=== PATIENT | female | born 1950 | race Hispanic/Latino ===

== ENCOUNTER 2019-09-10 15:48 | Emergency (ER) | payer MEDICARE, OTHER ==
[~2019-09-10] VITALS: Ht 154.9 cm; Wt 56.2 kg
--- OUTSIDE RECORDS SUMMARY | 2019-09-10 15:51 | XMS REPORT | Summary of Care ---
Author Author [facility] Unknown Address [facility] Phone Unavailable Care Team Providers Care Comedian Name Role Phone GHADA Aguilar, SOULEYMANE Unavailable Unavailable LETICIA BRICEÑO MD Unavailable Unavailable DEON WISDOM MD Unavailable Unavailable Unavailable Unavailable Functional Status Name Dates Details Functional status health issues are not documented Status: Name Dates Details Cognitive status health issues are not documented Status: Problems Name Dates Details Hepatitis C (070.70, B19.20) Status: Active Bilateral carotid artery disease (447.9, I77.9) Status: Active CAD (coronary artery disease) (414.00, I25.10) Status: Active Chronic renal insufficiency (585.9, N18.9) Status: Active ESRD (end stage renal disease) on dialysis (585.6, N18.6) Status: Active Medications Name Dates Details Baby Aspirin 81 MG CHEW Active Norvasc 10 MG Oral Tablet * Refills: 0 Active Lipitor 40 MG Oral Tablet * Refills: 0 Active Carvedilol 25 MG Oral Tablet * Refills: 0 Active Escitalopram Oxalate 10 MG Oral Tablet * Refills: 0 Active Lasix 40 MG Oral Tablet * Refills: 0 Active NovoLOG FlexPen 100 UNIT/ML SOLN * Refills: 0 Active Reglan 10 MG Oral Tablet * Refills: 0 Active PriLOSEC 20 MG CPDR * Refills: 0 Active predniSONE 10 MG Oral Tablet * Refills: 0 Active Sodium Bicarbonate TABS * Refills: 0 Active Sulfazine 500 MG TABS * Refills: 0 Active Allergies and Adverse Reactions Name Dates Details No Known Allergies (Allergy) Status: Active Past Medical History Name Dates Details History of hypertension (V12.59, Z86.79) Status: Resolved History of stroke (V12.54, Z86.73) Status: Resolved Procedures Procedure Dates Details History of Dialysis tunneled catheter placement Completed History of Cholecystectomy Completed History of CABG Completed Immunization Name Dates Details Immunizations not documented Social History Name Dates Details - Status: Name Dates Details Never smoker Vital Signs Date Test Result Details No Known Vitals to report Results Date Description Value Details Results not documented Plan of Care Name Dates Details Planned Observations Planned Goals not documented Planned Encounters Appointment; SOULEYMANE URRUTIA M.D. On: 19-Dec-2018 9:00 Interventions Provided Instructions* Patient Specific Education Given; Done: 19 Dec 2018 Plan* I evaluated Ms. Schreiber today for ESRD and complication of her AVF. Instructions Name Dates Details Instructions not documented Encounters Appointment; KRYSTIN OWENS M.D. Encounter Diagnosis: Problem not documented On: 25-Feb-2018 9:30 [facility] Encounter Diagnosis: Problem not documented On: 27-Feb-2018 9:00 Appointment; KRYSTIN OWENS M.D. Encounter Diagnosis: Problem not documented On: 15-Apr-2018 10:45 Appointment; SOULEYMANE URRUTIA M.D. Encounter Diagnosis: Problem not documented On: 19-Dec-2018 9:00
--- OUTSIDE RECORDS SUMMARY | 2019-09-10 15:51 | XMS REPORT ---
Author 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 Allergies, Adverse Reactions, Alerts This patient has no known allergies or adverse reactions. Medications This patient has no known medications. Results Test Description Test Time Test Comments Text Results Atomic Results Result Comments XR Chest 1 View Frontal 2019-02-27 11:07:59 Patient: TED SCHREIBER Date/Time02/27/2019 10:58 CDTReason for ExamCoughReportXR Chest 1 View FrontalCLINICAL INFORMATION: CoughCOMPARISONS: None available.FINDINGS:There is slight elevation of the left hemidiaphragm. The left lateral costophrenic angle is blunted. This could be secondary to pleural thickening or trace effusion. No airspace consolidation is seen. The cardiac silhouette is mildly enlarged. Coronary artery stents are noted. Median sternotomy wires and HeRO dialysis graft are noted.IMPRESSION:Mild elevation of the left hemidiaphragm with left pleural thickening versus trace effusion.Location: R16 Final Dictated by: MD Her Adam FDictated DT/TM: 02/27/2019 11:05 amSigned by: MD Her Adam FSigned (Electronic Signature): 02/27/2019 11:07 am URINE PROTEIN ELECTROPHORESIS, RANDOM 2017-07-09 15:25:00 PROTEIN, URINE (BEAKER) (test hnta=5849) 35 mg/dL 0-14 ALBUMIN URINE ELP (BEAKER) (test ryhm=2404) 63.5 % GAMMA GLOBULIN URINE (BEAKER) (test ckpm=7291) 36.5 % UPEP, ID-438 (BEAKER) (test ptis=9826) Mild proteinuria. No bence guidry protein detected. LACN-GPKGGVLHNIE-005 (BEAKER) (test ovgk=2243) Garry Mixon M.D.(electronic signature) PROTEIN ELECTROPHORESIS, [id number] 11:00:00* Test Item Value Reference Range Comments ALBUMIN FRACTION (BEAKER) (test hxrn=167) 3.6 g/dL 3.5-5.5 ALPHA 1 FRACTION (BEAKER) (test hwtu=905) 0.2 g/dL 0.2-0.4 ALPHA 2 FRACTION (BEAKER) (test nwqj=268) 0.9 g/dL 0.5-0.9 BETA FRACTION (BEAKER) (test zdsx=762) 1.0 g/dL 0.6-1.1 GAMMA GLOBULIN FRACTION (BEAKER) (test kwlt=040) 2.1 g/dL 0.7-1.7 INTERPRETATION-119 (BEAKER) (test rypc=3577) Polyclonal increase in gamma globulins. [id number]-118 (BEAKER) (test ydpi=5573) Garry Mixon M.D.(electronic signature) PROTEIN TOTAL SERUM, SPEP (BEAKER) (test olrf=6871) 7.8 gm/dL 6.0-8.3 URIC [id number] 13:04:00* Test Item Value Reference Range Comments URIC ACID (BEAKER) (test lcoa=614) 7.5 mg/dL 2.5-8.0 PROTEIN, RANDOM [id number] 12:33:00* Test Item Value Reference Range Comments PROTEIN, URINE (BEAKER) (test zkjd=0439) 35 mg/dL 0-14 BASIC METABOLIC [id number] 12:30:00* Test Item Value Reference Range Comments SODIUM (BEAKER) (test ltkc=594) 139 meq/L 135-148 POTASSIUM (BEAKER) (test wmhl=854) 5.2 meq/L 3.5-5.5 CHLORIDE (BEAKER) (test xojk=230) 111 meq/L 98-106 CO2 (BEAKER) (test hhrr=820) 18 meq/L 20-31 BLOOD UREA NITROGEN (BEAKER) (test zleg=482) 59 mg/dL 10-26 CREATININE (BEAKER) (test uthb=027) 1.93 mg/dL 0.50-1.20 GLUCOSE RANDOM (BEAKER) (test kkrw=452) 92 mg/dL 70-110 CALCIUM (BEAKER) (test ycaf=592) 9.4 mg/dL 8.5-10.5 EGFR (BEAKER) (test fziw=4282) 26 mL/min/1.73 sq m ESTIMATED GFR IS NOT ACCURATE CREATININE CLEARANCE IN PREDICTING GLOMERULAR FILTRATION RATE. ESTIMATED GFR IS NOT APPLICABLE FOR DIALYSIS PATIENTS. CREATININE, RANDOM [id number] 12:26:00* Test Item Value Reference Range Comments CREATININE URINE (BEAKER) (test ohkq=151) 23.6 mg/dL Reference Range: No [id number] 12:24:00* Test Item Value Reference Range Comments MAGNESIUM (BEAKER) (test airb=707) 2.3 mg/dL 1.5-3.0 [id number] 12:24:00* Test Item Value Reference Range Comments PHOSPHORUS (BEAKER) (test ggxi=364) 4.4 mg/dL 2.5-4.5 URINALYSIS W/ REFLEX URINE [id number] 12:10:00* Test Item Value Reference Range Comments COLOR (BEAKER) (test hqxg=817) Light Yellow CLARITY (BEAKER) (test saio=858) Clear SPECIFIC GRAVITY UA (BEAKER) (test nvhe=753) 1.005 1.001-1.035 PH UA (BEAKER) (test fsxo=231) 5.0 5.0-8.0 PROTEIN UA (BEAKER) (test dtpf=768) 30 mg/dL Negative GLUCOSE UA (BEAKER) (test adek=692) Negative Negative KETONES UA (BEAKER) (test zopb=128) Negative Negative BILIRUBIN UA (BEAKER) (test uuxn=514) Negative Negative BLOOD UA (BEAKER) (test qvqb=476) Small Negative NITRITE UA (BEAKER) (test dwxx=339) Negative Negative LEUKOCYTE ESTERASE UA (BEAKER) (test rhgh=342) Negative Negative UROBILINOGEN UA (BEAKER) (test yubl=989) < mg/dL 0.2-1.0 RBC UA (BEAKER) (test agty=882) 1 /HPF WBC UA (BEAKER) (test yfpf=942) 1 /HPF MUCUS (BEAKER) (test hnlk=2111) Rare SQUAMOUS EPITHELIAL (BEAKER) (test hogo=355) 1 /HPF HYALINE CASTS (BEAKER) (test csmt=513) 8 /LPF SOURCE(BEAKER) (test oehf=6286) MR, SPINE, LUMBAR, WITHOUT [id number] 11:59:00FINAL REPORT MRI of the lumbar spine Comparison: None Reason for exam: Low back pain Discussion: Sagittal and axial multisequence MR imaging of the lumbar spine was provided L5/S1: Mild facet arthrosis. No canal or foraminal compromise. L4/5: Moderate to severe multifactorial central canal stenosis relating to dorsal disc bulge, facet arthrosis, ligamentum flavum thickening. Foramina are narrow but patent. L3/4: Moderate multifactorial central canal stenosis relating to near circumferential disc bulge, facet arthrosis, ligamentum flavum thickening. Foramina are narrow but patent. L2/3: Negative L1/2: Negative T12/L1: Negative The distal cord and conus are unremarkable with the conus tip at the L1 level. The visualized paraspinal and retroperitone al structures are unremarkable. Marrow is unremarkable. Impressions: Multifactor ial central canal stenosis, moderate L3/4, moderate to severe L4/5. Signed: Kyaar Dietz Verified Date/Time: 07/06/2017 11:59:20 Reading Location: [address] Neuro Reading Room W/PLT COUNT & AUTO [id number] 11:53:00* Test Item Value Reference Range Comments WHITE BLOOD CELL COUNT (BEAKER) (test wewl=398) 6.9 K/ L 4.0-10.0 RED BLOOD CELL COUNT (BEAKER) (test qivb=681) 3.13 M/ L 4.00-5.00 HEMOGLOBIN (BEAKER) (test djhk=908) 9.5 GM/DL 12.0-15.0 HEMATOCRIT (BEAKER) (test mgop=007) 28.3 % 36.0-45.0 MEAN CORPUSCULAR VOLUME (BEAKER) (test gquq=368) 90.4 fL 82.0-99.0 MEAN CORPUSCULAR HEMOGLOBIN (BEAKER) (test dbuv=203) 30.2 pg 27.0-33.0 MEAN CORPUSCULAR HEMOGLOBIN CONC (BEAKER) (test dqin=297) 33.4 GM/DL 32.0-36.0 RED CELL DISTRIBUTION WIDTH (BEAKER) (test vije=901) 13.3 % 12.0-15.0 PLATELET COUNT (BEAKER) (test rxxi=791) 173 K/CU MM 150-430 MEAN PLATELET VOLUME (BEAKER) (test cdpq=105) 8.0 fL 6.5-10.5 NUCLEATED RED BLOOD CELLS (BEAKER) (test tlmq=245) 0 /100 WBC 0-0 NEUTROPHILS RELATIVE PERCENT (BEAKER) (test gwyu=549) 53 % LYMPHOCYTES RELATIVE PERCENT (BEAKER) (test gbwe=530) 32 % MONOCYTES RELATIVE PERCENT (BEAKER) (test wzms=566) 8 % EOSINOPHILS RELATIVE PERCENT (BEAKER) (test kyut=205) 7 % BASOPHILS RELATIVE PERCENT (BEAKER) (test scme=945) 0 % NEUTROPHILS ABSOLUTE COUNT (BEAKER) (test grqp=084) 3.60 K/ L 1.80-8.00 LYMPHOCYTES ABSOLUTE COUNT (BEAKER) (test fzgp=019) 2.20 K/ L 1.48-4.50 MONOCYTES ABSOLUTE COUNT (BEAKER) (test kqzz=842) 0.60 K/ L 0.00-1.30 EOSINOPHILS ABSOLUTE COUNT (BEAKER) (test kcnb=285) 0.50 K/ L 0.00-0.50 BASOPHILS ABSOLUTE COUNT (BEAKER) (test qesd=747) 0.00 K/ L 0.00-0.20 RAD, SPINE, LUMBAR, COMPLETE (MIN 4 VIEWS)2017-07-06 10:47:00Reason for Exam:-> Low back painReason for Exam:->Chronic kidney disease, stage 3 (moderate)FINAL REPORT TECHNIQUE: Frontal, lateral, bilateral oblique and cone-down views of the lumbosacral spine dated 07/06/2017. HISTORY: Low back pain. COMPARISON: None. FINDINGS:There are 5 hmc-ohu-qeoxbmp vertebral bodies. Bones are osteopenic. There is a normal lumbar lordosis. No fracture or malalignment is seen. Intervertebral disc spaces are normal in height. No bony foraminal narrowing is seen. Normal bowel gas pattern is seen. IMPRESSION:No fracture or malalignment. Signed: Phuong Barbosa Verified Date/Time: 017 10:47:32 Reading Location: [facility] Radiology Reading Room Electronically sig padmini by: PHUONG BARBOSA on 07/06/2017 10:47 AM RAD, CHEST, 2 VIEWS 2017-07-06 10:29:00Reason for Exam:->Sarcoidosis, unspecifiedReason for Exam:-> Chest pain, unspecifiedFINAL REPORT Chest, two views HISTORY: Chest pain COMPARISON: None. DISCUSSION: Lungs are clear without focal consolidation. Cardiomediastinal silhouette is unremarkable. No acute osseous abnormality. No pleural effusion or pneumothorax. Visualized portions of the upper abdomen are unremarkable. Coronary artery stents present. Atherosclerotic calcifications in the aortic arch. Surgical clips in the right upper quadrant. Catheters carotic calcifications in the abdominal aorta. IMPRESSION: No acute cardiopulmonary abnormality. Signed: Cheikh Westeport Verified Date/Time: 07/06/2017 10:29:53 Reading Location: [facility] Diagnostic Imaging Reading Room - [place] [id number]
--- NOTE | 2019-09-10 17:43 | Diagnostic Imaging Report ---
History: Fall, head and neck pain Comparison studies:None Technique: Axial images were obtained from the brain and cervical spine. Coronal and sagittal images reconstructed from the axial data. Intravenous contrast: None Dose modulation, iterative reconstruction, and/or weight based adjustment of the mA/kV was utilized to reduce the radiation dose to as low as reasonably achievable. Findings: Head CT: Scalp/skull: Small left parietal scalp hematoma. No fractures, blastic or lytic lesions. Brain sulci: Appropriate for age. Ventricles: Normal in size and configuration. No hydrocephalus. Extra-axial spaces: No masses. No fluid collections. Parenchyma: Few subtle hypodensities of the periventricular and deep white matter, nonspecific and most commonly seen with mild chronic microvascular ischemic changes. No masses, hemorrhage, acute or chronic cortical vascular insults. Sellar/suprasellar region: No abnormalities. Craniocervical junction: Patent foramen magnum. No Chiari one malformation. Atherosclerotic calcifications of the carotid siphons and vertebral arteries. Hyperdense partial opacification of the left maxillary sinus. Cervical spine CT: Fractures: None. Soft tissues: No gross abnormalities. Atlantoaxial articulation: Degenerative changes without acute abnormality. Alignment: Straightening of the normal lordosis. Minimal grade 1 anterolisthesis of C4 over C5. No scoliosis. Cervicomedullary junction: No abnormalities. Patent foramen magnum. Vertebrae: No infection or neoplasm. Degenerative changes: Disc degeneration with posterior disc osteophyte complex at C6-7 results in at least moderate canal stenosis. Mild degenerative bilateral foraminal narrowing at C5-6 and C6-7 on the right. Moderate degenerative left foraminal narrowing at C6-7.. Incidental findings: Sclerotic calcifications of the carotid bulbs. Vascular catheter is seen at the left internal jugular vein.. Impression: Head CT: 1. No acute intracranial abnormality. 2. Small left parietal scalp hematoma. Cervical spine CT: 1. No acute abnormalities. Degenerative changes as described above. 2. Cannot exclude ligament, spinal cord and or vascular abnormalities on the basis of this examination. Signed by: DR Ryan Ospina M.D. on 09/10/2019 5:39 PM
[2019-09-10] MEDS ORDERED: ACETAMINOPHEN 325 MG TAB PO ONE (18:15)
[2019-09-10] MEDS ORDERED: ACETAMINOPHEN 325 MG TAB ONE (18:19)
== END 2019-09-10 18:33 | disposition home or self-care (01) ==
LOC: ER 15:48
DX: S00.83XA Contusion of other part of head, initial encounter (principal); W01.0XXA Fall on same level from slipping, tripping and stumbling without subsequent striking against object, initial encounter; Y92.008 Other place in unspecified non-institutional (private) residence as the place of occurrence of the external cause; I12.0 Hypertensive chronic kidney disease with stage 5 chronic kidney disease or end stage renal disease; E11.22 Type 2 diabetes mellitus with diabetic chronic kidney disease; N18.6 End stage renal disease; Z99.2 Dependence on renal dialysis; G20 Parkinson's disease; K21.9 Gastro-esophageal reflux disease without esophagitis
CPT/HCPCS: 70450; 72125; 99283

== ENCOUNTER 2020-06-14 13:37 | Emergency (ER) | payer MEDICARE, OTHER ==
[~2020-06-14] VITALS: Ht 154.9 cm; Wt 56.2 kg
--- OUTSIDE RECORDS SUMMARY | 2020-06-14 13:46 | XMS REPORT | Clinical Summary ---
Author Author [facility] Address Unknown Phone Unavailable Care Team Providers Care Newspaper Columnist Name Role Phone Alexi Wisdom MD PCP Allergies No Known Allergies Medications End Date Status Medication Sig Dispensed Refills Start Date Active insulin GLARGINE (LANTUS) Inject 20 0 100 unit/mL injection Units under (vial) the skin nightly. Active insulin lispro (HumaLOG) Inject under 0 100 unit/mL injection the skin 3 (three) times a day before meals. On sliding scale of Humalog depending on blood sugar Active Problems Problem Noted Date Hypertension 2018 Anemia in stage 3 chronic kidney disease 01/16/2018 Social History Date Tobacco Use Types Packs/Day Years Used Never Assessed Sex Assigned at Date Recorded Not on file Industry Job Start Date Occupation Not on file Not on file Not on file Travel End Travel History Travel Start No recent travel history available. Last Filed Vital Signs Not on file Plan of Treatment Health Maintenance Due Date Last Done Comments BREAST CANCER SCREENING 01/16/2002 COLONOSCOPY SCREENING 01/16/2002 SHINGLES VACCINES (#1) 01/16/2002 65+ PNEUMOCOCCAL VACCINE 01/16/2017 (1 of 2 - PCV13) INFLUENZA VACCINE 06/29/2020 Results Not on fileafter 06/14/2019 Insurance Type Payer Benefit Subscriber ID Effective Phone Address Plan / Dates Group O [facility] MEDICARE [facility] DUAL xxxxxxxxx 2017-P COMPLETE resent [facility] Advance Directives For more information, please contact: [phone] Patient Dental Assistant Medical Assistant Explanation Type Date Recorded Advance Directives, Living Will and Medical Power of Process Checker
--- OUTSIDE RECORDS SUMMARY | 2020-06-14 13:46 | XMS REPORT | Continuity of Care Document ---
Author Author [facility] t Organization [facility] Address 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 Attphys Unavailable KRYSTIN CHANEY M.D. Attphys Unavailable [facility] [address] CHANEY Attphys Unavailable DEON WISDOM Attphys Unavailable Payers Payer Name Policy Type Policy Number Effective Date Expiration Date [facility] [id number] 2019 00:00 :[address] [facility] Medicare A & B [id number] 2018 00:00:00 [facility] Problems Condition Name Condition Details Condition Category Status Onset Date Resolution Date Last Treatment Date Treating Clinician Comments Source Hypertension Hypertension Disease Active 2018 00:00:00 Raphael Braun Anemia in stage 3 chronic kidney disease Anemia in sta ge 3 chronic kidney disease Disease Active 2018-01-16 00:00:00 Carmen Braun CAD (coronary artery disease) CAD (coronary artery disease) Problem Active [facility] Chronic renal insufficiency Chronic renal insufficiency Problem Active [facility] Hepatitis C Hepatitis C Problem Active [facility] Bilateral carotid artery disease Bilateral carotid artery diseas e Problem Active [facility] [place] [facility] ESRD (end stage renal disease) on dialysis ESRD (end s tage renal disease) on dialysis Problem Active [facility] History of hypertension History of hypertension Problem Resolved [facility] History of stroke History of stroke Problem Resolved [facility] Allergies, Adverse Reactions, Alerts Allergy Name Allergy Type Status Severity Reaction(s) Onset Date Inacti ve Date Treating Clinician Comments Source No Known Allergies DA Active U 2018-04-23 00:00:00 [facility] Social History Social Habit Start Date Stop Date Quantity Comments Source Sex Assigned At Anselmo Braun Smoking Status Start Date Stop Date Source Never smoker [facility] Medications Ordered Medication Name Filled Medication Name Start Date Stop Da te Current Medication? Ordering Clinician Indication Dosage Frequency Signature (SIG) Comments Components Source insulin GLARGINE (LANTUS) 100 unit/mL injection (vial) 2018 14:16:36 Yes 20U QD Inject 20 Units under the skin nightly. Raphael Braun insulin lispro (HumaLOG) 100 unit/mL injection 2018 14:16: 36 Yes [id number] Inject under the skin 3 (thr ee) times a day before meals. On sliding scale of Humalog depending on blood sugar Raphael Braun Baby Aspirin 81 MG CHEW Baby Aspirin 81 MG CHEW Yes [facility] Norvasc 10 MG Oral Tablet Norvasc 10 MG Oral Tablet Yes [facility] Lipitor 40 MG Oral Tablet Lipitor 40 MG Oral Tablet Yes [facility] Carvedilol 25 MG Oral Tablet Carvedilol 25 MG Oral Tablet Yes [facility] Escitalopram Oxalate 10 MG Oral Tablet Escitalopram Oxalate 10 M G Oral Tablet Yes [facility] Lasix 40 MG Oral Tablet Lasix 40 MG Oral Tablet Yes [facility] NovoLOG FlexPen 100 UNIT/ML SOLN NovoLOG FlexPen 100 UNIT/ML SOLN Yes [facility] Reglan 10 MG Oral Tablet Reglan 10 MG Oral Tablet Yes [facility] PriLOSEC 20 MG CPDR PriLOSEC 20 MG CPDR Yes [facility] Sodium Bicarbonate TABS Sodium Bicarbonate TABS Yes [facility] Sulfazine 500 MG TABS Sulfazine 500 MG TABS Yes [facility] predniSONE 10 MG Oral Tablet predniSONE 10 MG Oral Tablet Yes [facility] Vital Signs Vital Name Observation Time Observation Value Comments Source BP Systolic 2018-04-15 11:04:00 134 mm[Hg] [facility] BP Diastolic 2018-04-15 11:04:00 76 mm[Hg] [facility] Height 2018-04-15 11:04:00 60 [in_us] [facility] Weight 2018-04-15 11:04:00 129 [lb_av] [facility] Body Mass Index Calculated 2018-04-15 11:04:00 25.19 kg/m2 [facility] BP Systolic 2018-02-25 11:35:00 154 mm[Hg] [facility] BP Diastolic 2018-02-25 11:35:00 78 mm[Hg] [facility] Height 2018-02-25 11:35:00 60 [in_us] [facility] Weight 2018-02-25 11:35:00 128 [lb_av] [facility] Body Mass Index Calculated 2018-02-25 11:35:00 25 kg/m2 [facility] Procedures Procedure Date / Time Performed Performing Clinician [facility] e Computed tomography of brain without radiopaque contrast 201 07-09-13 00:00:00 [place] [facility] Computed tomography of cervical spine without contrast 09-10 00:00:00 [place] [facility] [QL] CBC (INCLUDES DIFF/PLT) 2018-04-02 00:00:00 [facility] [[facility]] BASIC METABOLIC PANEL W/EGFR 2018-04-02 00:00:00 [facility] [O] Xray CHEST 2 VIEWS FRONTAL AND LATERAL 2018-04-02 00:00:00 [facility] CVRAD - Bilateral Carotid Duplex - [id number] 2018-02-27 00:00:00 [facility] History of Dialysis tunneled catheter placement [facility] History of Cholecystectomy [facility] Plan of Care Planned Activity Planned Date Details Comments Source Future Scheduled Test 2020-06-29 00:00:00 INFLUENZA VACCINE [code = INFLUENZA VACCINE] Raphael Braun Diagnostic Test Pending 2018-04-12 00:00:00 [[facility]] CBC (INCLU RHODA DIFF/PLT) [code = [QLH] CBC (INCLUDES DIFF/PLT)] [facility] Diagnostic Test Pending 2018-04-12 00:00:00 [QLH] BASIC META BOLIC PANEL W/EGFR [code = [QLH] BASIC METABOLIC PANEL W/EGFR] [facility] Diagnostic Test Pending 2018-04-12 00:00:00 [O] Xray CHEST 2 VIEWS FRONTAL AND LATERAL [code = 16673] [facility] Diagnostic Test Pending 2018-04-12 00:00:00 [QLH] CBC (INCLU RHODA DIFF/PLT) [code = [QLH] CBC (INCLUDES DIFF/PLT)] [facility] Diagnostic Test Pending 2018-04-12 00:00:00 [QLH] BASIC META BOLIC PANEL W/EGFR [code = [QLH] BASIC METABOLIC PANEL W/EGFR] [facility] Diagnostic Test Pending 2018-04-12 00:00:00 [O] Xray CHEST 2 VIEWS FRONTAL AND LATERAL [code = 95719] [facility] Future Scheduled Test 2017-01-16 00:00:00 65+ PNEUMOCOCCAL V ACCINE (1 of 2 - PCV13) [code = 65+ PNEUMOCOCCAL VACCINE (1 of 2 - PCV13)] [facility] Future Scheduled Test 2002-01-16 00:00:00 BREAST CANCER SCRE ENING [code = BREAST CANCER SCREENING] [facility] Future Scheduled Test 2002-01-16 00:00:00 COLONOSCOPY SCREEN ING [code = COLONOSCOPY SCREENING] [facility] Future Scheduled Test 2002-01-16 00:00:00 SHINGLES VACCINES (#1) [code = SHINGLES VACCINES (#1)] [facility] Encounters Start Date/Time End Date/Time Encounter Type Admission Type Attendi [facility] Facility Care Department Encounter ID Source 2020-06-02 08:32:00 2020-05-31 10:06:00 Inpatient E MHSE [facility]SE [id number] 2020-05-23 20:34:00 2020-05-23 20:34:00 Outpatient E MHSE MED [id number] [facility] 2020-03-02 10:00:00 2020-03-02 10:00:00 Outpatient MHSE CAR [id number] [facility] 2019-09-10 15:48:00 2019-09-10 18:33:00 Departed Emergency Room 1 NEGRO MCCALLUM [facility] [id number] [facility] 2018-12-19 09:00:00 2018-12-19 09:00:00 Appointment; SOULEYMANE URRUTIA M.D. SAQIB, NAVEED, M.D. [facility] Cardiothoracic and Vascular Surgery at [facility] [id number] [facility] 2018-04-15 10:45:00 2018-04-15 10:45:00 Appointment; KRYSTIN CHANEY M.D. NAHAS, CESAR, M.D. [facility] Cardiothoracic and Vascular Surgery - Dr Agapito Chaney [id number] [facility] 2018-02-27 09:00:00 2018-02-27 09:00:00 Appointment; DR GRACIELA CHILD DR NAHAS [facility] Cardiothoracic and Vascular Surgery - Dr Agapito Chaney [id number] [facility] 2018-02-25 09:30:00 2018-02-25 09:30:00 Appointment; KRYSTIN CHANEY M.D. NAHAS, CESAR, M.D. [facility] Cardiothoracic and Vascular Surgery - Dr Agapito Chaney [id number] [facility] Results Test Description Test Time Test Comments Results Result Comments Source - CT ABD PELVIS W/CONT 2019-11-20 16:01:00 Nam e: TED SCHREIBER [facility] : 1950 Age/S: 69 / F [address] [facility] Unit #: [id number] Loc: [place] She[place] [address] Phys: Duncan Lawton MD Acct: [id number] Dis Date: Status: REG ER PHONE #: [phone] Exam Date: 11/20/2019 1554 FAX #: [phone] Reason: diffuse abd pain EXAMS: CPT CODE: [id number] CT ABD PELVIS W/CONT [id number] REASON FOR EXAM: diffuse abd pain EXAM ORDER DATE: 11/20/2019 2:39 PM Ordering: Duncan Lawton MD Attending:Duncan Lawton MD Location:[facility] PROCEDURE: - CT ABD PELVIS W/CONT COMPARISON: FINDINGS: CT images of the abdomen and pelvis were obtained with IV and without oral contrast at 5mm. Dose modulation, iterative reconstruction, and/or weight based adjustment of the MA/KV was utilized to reduce the rad iation dose to as low as reasonably achievable. Intravenous contrast: 100cc of Omnipaque 370. The liver, spleen, pancreas are grossly within normal limits. The patient is status post cholecystectomy The kidneys are within normal limits. The colon, small bowel, and stomach are within normal limits without evidence of obstruction. The appendix is unremarkable. No evidence of free air or free fluid. The patient is status post hysterectomy IMPRESSION: Diffuse enhancement of the wall of the urinary bladder suggestive of cystitis at 1601 Reported and signed by: Jeremi Johnson M.D. CC: Duncan Lawton MD Technologist:Yaritza Restrepo CTDI: DLP: Trnscb Date/Time: 11/20/2019 (1601) [email or web address] Orig Print D/T: S: 11/20/2019 (3864) PAGE 1 Signed Report COMPREHENSIVE METABOLIC PANEL 2019-11-20 15:15:00 Test Item SODIUM (test code = NA) 142 mmol/L 136-145 N POTASSIUM (test code = K) 3.1 mmol/L 3.5-5.1 L CHLORIDE (test code = CL) 100 mmol/L 101-109 L CARBON DIOXIDE (test code = CO2) 35.3 mmol/L 21-32 H ANION GAP (test code = GAP) 10 mmol/L 10-20 N GLUCOSE (test code = GLU) 142 mg/dL 74-106 H BLOOD UREA NITROGEN (test code = BUN) 20 mg/dL 3-21 N CREATININE (test code = CREAT) 4.30 mg/dL 0.55-1.3 H BUN/CREATININE RATIO (test code = BUN/CREA) 4.7 10-20 L TOTAL PROTEIN (test code = PROT) 9.0 g/dL 6.5-8.4 H ALBUMIN (test code = ALB) 3.6 g/dL 3.4-4.8 N GLOBULIN (test code = GLOB) 5.4 G/DL 1-10 N ALBUMIN/GLOBULIN RATIO (test code = A/G) 0.67 RATIO 0.75-1.50 L CALCIUM (test code = CA) 9.6 mg/dL 8.4-10.2 N BILIRUBIN TOTAL (test code = BILT) 0.80 mg/dL 0.0-1.0 N SGOT/AST (test code = AST) 48 U/L 6-32 H SGPT/ALT (test code = ALT) 29 U/L 12-78 N N ote: Change in REFERENCE RANGE due to new reagent method. ALKALINE PHOSPHATASE TOTAL (test code = ALKP) 198 U/L 38-126 H [id number] 15:15:00* Test Item Value Reference Range Interpretation Comments LIPASE (test code = LIP) 281 U/L 128-270 H [id number] 15:15:00* Test Item Value Reference Range Interpretation Comments TROPONIN-I (test code = TROPI) <0.015 ng/mL 0.00-0.056 N COMPREHENSIVE METABOLIC [id number] 15:08:00* Test Item Value Reference Range Interpretation Comments SODIUM (test code = NA) 142 mmol/L 136-145 N POTASSIUM (test code = K) 3.1 mmol/L 3.5-5.1 L CHLORIDE (test code = CL) 100 mmol/L 101-109 L CARBON DIOXIDE (test code = CO2) 35.3 mmol/L 21-32 H ANION GAP (test code = GAP) 10 mmol/L 10-20 N GLUCOSE (test code = GLU) 142 mg/dL 74-106 H BLOOD UREA NITROGEN (test code = BUN) 20 mg/dL 3-21 N CREATININE (test code = CREAT) 4.30 mg/dL 0.55-1.3 H BUN/CREATININE RATIO (test code = BUN/CREA) 4.7 10-20 L TOTAL PROTEIN (test code = PROT) gram/dL 6.4-8.2 ALBUMIN (test code = ALB) g/dL 3.4-5.0 GLOBULIN (test code = GLOB) g/dL 2.7-4.2 ALBUMIN/GLOBULIN RATIO (test code = A/G) 0.75-1.50 CALCIUM (test code = CA) 9.6 mg/dL 8.4-10.2 N BILIRUBIN TOTAL (test code = BILT) mg/dL 0.2-1.2 SGOT/AST (test code = AST) IUnit/L 15-37 SGPT/ALT (test code = ALT) U/L 10-69 ALKALINE PHOSPHATASE TOTAL (test code = ALKP) IUnit/L 45-117 [id number] 15:08:00* Test Item Value Reference Range Interpretation Comments LIPASE (test code = LIP) Unit/L 144-286 [id number] 15:08:00* Test Item Value Reference Range Interpretation Comments TROPONIN-I (test code = TROPI) ng/mL 0-0.045 CBC W/AUTO [id number] 14:58:00* Test Item Value Reference Range Interpretation Comments WHITE BLOOD CELL (test code = WBC) 5.3 K/mm3 4.5-12.5 N RED BLOOD CELL (test code = RBC) 3.73 mill/mm3 3.7-5.2 N HEMOGLOBIN (test code = HGB) 11.8 gram/dL 11.5-15.5 N HEMATOCRIT (test code = HCT) 37.4 % 36.0-46.0 N MEAN CELL VOLUME (test code = MCV) 100.3 fL 80-98 H MEAN CELL HGB (test code = MCH) 31.6 picogram 27.0-33.0 N MEAN CELL HGB CONCETRATION (test code = MCHC) 31.6 gram/dL 33.0-36. 0 L RED CELL DISTRIBUTION WIDTH (test code = RDW) 16.0 % 11.6-16. 2 N RED CELL DISTRIBUTION WIDTH SD (test code = RDW-SD) 57.5 fL 37 .0-51.0 H PLATELET COUNT (test code = PLT) 109 K/mm3 150-450 L MEAN PLATELET VOLUME (test code = MPV) 10.0 fL 6.7-11.0 N NEUTROPHIL % (test code = NT%) 55.1 % 39.0-69.0 N LYMPHOCYTE % (test code = LY%) 27.5 % 25.0-55.0 N MONOCYTE % (test code = MO%) 9.8 % 0.0-10.0 N EOSINOPHIL % (test code = EO%) 6.8 % 0.0-5.0 H BASOPHIL % (test code = BA%) 0.4 % 0.0-1.0 N NEUTROPHIL # (test code = NT#) 2.93 K/mm3 1.8-7.7 N LYMPHOCYTE # (test code = LY#) 1.46 K/mm3 1.0-5.0 N MONOCYTE # (test code = MO#) 0.52 K/mm3 0-0.8 N EOSINOPHIL # (test code = EO#) 0.36 K/mm3 0.0-0.5 N BASOPHIL # (test code = BA#) 0.02 K/mm3 0.0-0.2 N MANUAL DIFF REQUIRED (test code = MDIFF) NO CT CERVICAL SPINE [id number] 17:28:00 [place] [address] Patient Name: TED SCHREIBER MR #: [id number] : 1950 Age/Sex: 69/F Req #: [id number] Adm Physician: Ordered by: NEGRO MCCALLUM MD Report #: [id number] Location: ER Room/Bed: Procedure: [id number] CT/ CT CERVICAL SPINE WO Exam Date: 09/10/19 Exam Time: 1630 REPORT STATUS: Signed Histo ry: Fall, head and neck pain Comparison studies:None Technique: Axial i mages were obtained from the brain and cervical spine. Coronal and sagittal im ages reconstructed from the axial data. Intravenous contrast: None Dose modu lation, iterative reconstruction, and/or weight based adjustment of the mA/kV was utilized to reduce the radiation dose to as low as reasonably achievable. Findings: Head CT: Scalp/skull: Small left parietal scalp leander randy. No fractures, blastic or lytic lesions. Brain sulci: Appropriate for age. Ventricles: Normal in size and configuration. No hydrocephalus. Extr a-axial spaces: No masses. No fluid collections. Parenchyma: Few sub tle hypodensities of the periventricular and deep white matter, nonspecific an d most commonly seen with mild chronic microvascular ischemic changes. No m asses, hemorrhage, acute or chronic cortical vascular insults. Sellar/supra sellar region: No abnormalities. Craniocervical junction: Patent foramen magnu m. No Chiari one malformation. Atherosclerotic calcifications of the carot id siphons and vertebral arteries. Hyperdense partial opacification of the left maxillary sinus. Cervical spine CT: Fractures: None. Soft tissu es: No gross abnormalities. Atlantoaxial articulation: Degenerative changes without acute abnormality. Alignment: Straightening of the normal lordosis. M inimal grade 1 anterolisthesis of C4 over C5. No scoliosis. Cervicomedullary junction: No abnormalities. Patent foramen magnum. Vertebrae: No infect ion or neoplasm. Degenerative changes: Disc degeneration with posterior disc osteophyte complex at C6-7 results in at least moderate canal stenosis. Mild degenerative bilateral foraminal narrowing at C5-6 and C6-7 on the right. Moderate degenerative left foraminal narrowing at C6-7.. Incidental findi ngs: Sclerotic calcifications of the carotid bulbs. Vascular catheter is seen at the left internal jugular vein.. Impression: Head CT: 1. No acute intracranial abnormality. 2. Small left parietal scalp hematoma. Cervical spine CT: 1. No acute abnormalities. Degenerative changes as describ ed above. 2. Cannot exclude ligament, spinal cord and or vascular abnormaliti es on the basis of this examination. Signed by: DR Ryan Ospina M.D. on 09/10/2019 5:39 PM Dictated By: RYAN ECKERT MD [facility] Signed By: RYAN ECKERT MD on 09/10/191738 Transcribed By: CLAUDIA on 09/10/191738 COPY TO: NEGRO MCCALLUM MD CT BRAIN [id number] 17:28:00 [place] [address] Patient Name: TED SCHREIBER MR #: [id number] : 1950 Age/Sex: 69/F Req #: [id number] Adm Physician: Ordered by: NEGRO MCCALLUM MD Report #: [id number] Location: Room/Bed: Procedure: [id number] CT/ CT BRAIN WO Exam Date: 09/10/19 Exam Time: 1630 REPORT STATUS: Signed History: Fall, head and neck pain Comparison studies:None Technique: Axial images were obtained from the brain and cervical spine. Coronal and sagittal images niraj nstructed from the axial data. Intravenous contrast: None Dose modulation, i terative reconstruction, and/or weight based adjustment of the mA/kV was utili zed to reduce the radiation dose to as low as reasonably achievable. Find ings: Head CT: Scalp/skull: Small left parietal scalp hematoma. No fractures, blastic or lytic lesions. Brain sulci: Appropriate for age. Ve ntricles: Normal in size and configuration. No hydrocephalus. Extra-axial s paces: No masses. No fluid collections. Parenchyma: Few subtle hypod ensities of the periventricular and deep white matter, nonspecific and most co mmonly seen with mild chronic microvascular ischemic changes. No masses, he morrhage, acute or chronic cortical vascular insults. Sellar/suprasellar re gion: No abnormalities. Craniocervical junction: Patent foramen magnum. No Ch iari one malformation. Atherosclerotic calcifications of the carotid siphon s and vertebral arteries. Hyperdense partial opacification of the left maxi llary sinus. Cervical spine CT: Fractures: None. Soft tissues: No gr oss abnormalities. Atlantoaxial articulation: Degenerative changes without acute abnormality. Alignment: Straightening of the normal lordosis. Minimal gr lonny 1 anterolisthesis of C4 over C5. No scoliosis. Cervicomedullary junction : No abnormalities. Patent foramen magnum. Vertebrae: No infection or ne oplasm. Degenerative changes: Disc degeneration with posterior disc oste ophyte complex at C6-7 results in at least moderate canal stenosis. Mild deg enerative bilateral foraminal narrowing at C5-6 and C6-7 on the right. Moderat e degenerative left foraminal narrowing at C6-7.. Incidental findings: Sc lerotic calcifications of the carotid bulbs. Vascular catheter is seen at t he left internal jugular vein.. Impression: Head CT: 1. No acute in tracranial abnormality. 2. Small left parietal scalp hematoma. Cervical spine CT: 1. No acute abnormalities. Degenerative changes as described above. 2. Cannot exclude ligament, spinal cord and or vascular abnormalities on the basis of this examination. Signed by: DR Ryan Ospina M.D. on 09/10/2019 5:39 PM Dictated By: RYAN ECKERT MD Electronically Sig padmini By: RYAN ECKERT MD on 09/10/191738 Transcribed By: CLAUDIA on 09/10 COPY TO: NEGRO MCCALLUM MD XR Chest 1 View Frontal 2019-02-27 11:07:59Patient: TED SCHREIBER Date/Time02/27/2019 10:58 CDTReason for ExamCoughReportXR [...] Her Adam FSigned (Electronic Signature): 02/27/2019 11:07 amXRAY Chest 2 views [id number] 10:29:00Patient Name: TED THAKUR: 1950; Age: 68 years FemaleMR: [id number]: Chest 2 views DX Order Time: 04/12/2018 10:30 AM CDTCLINICAL INDICATION: - I25.10 Atherosclerotic heart disease of nativecoronary artery without angina pectorisCOMPARISON: Chest radiograph on 03/21/2018FINDINGS:Lines: Right IJ down the catheter tip projects over the right atrium.Lungs: Small bilateral pleural effusions and bibasilar atelectasis. Mildcentral pulmonary venous congestion. No pneumothorax.Mediastinum: The cardiac silhouette is mildly enlarged. Midline trachea.Bones and soft tissues: Postoperative changes of the thorax.IMPRESSION:Cardiomegaly with central pulmonary venous congestion and small bilateralpleural effusions.SL: [id number]--Iipe by: Bharat Parikh MDDictated Date/time: 04/12/18 11:31Electronically Signed by: Bharat Parikh MD 04/12/1811:32FINAL REPORTUnAlta View [facility] PROTEIN ELECTROPHORESIS, [id number] 15:25:00* Test Item Value Reference Range Interpretation Comments PROTEIN, URINE (BEAKER) (test code = 1569) 35 mg/dL 0-14 H ALBUMIN URINE ELP (BEAKER) (test code = 1018) 63.5 % GAMMA GLOBULIN URINE (BEAKER) (test code = 1015) 36.5 % UPEP, ID-438 (BEAKER) (test code = 2604) Mild proteinu elo. No bence guidry protein detected. [id number] (BEAKER) (test code = 2605) Benedict Mixon M.D.(electronic signature) PROTEIN ELECTROPHORESIS, [id number] 11:00:00* Test Item Value Reference Range Interpretation Comments ALBUMIN FRACTION (BEAKER) (test code = 405) 3.6 g/dL 3.5-5.5 ALPHA 1 FRACTION (BEAKER) (test code = 389) 0.2 g/dL 0.2-0.4 ALPHA 2 FRACTION (BEAKER) (test code = 390) 0.9 g/dL 0.5-0.9 BETA FRACTION (BEAKER) (test code = 392) 1.0 g/dL 0.6-1.1 GAMMA GLOBULIN FRACTION (BEAKER) (test code = 391) 2.1 g/dL 0.7 -1.7 H INTERPRETATION-119 (BEAKER) (test code = 2615) Polyclo nal increase in gamma globulins. [id number] (BEAKER) (test code = 2616) Benedict Mixon M.D.(electronic signature) PROTEIN TOTAL SERUM, SPEP (BEAKER) (test code = 2660) 7.8 gm/dL 6.0-8.3 URIC [id number] 13:04:00* Test Item Value Reference Range Interpretation Comments URIC ACID (BEAKER) (test code = 773) 7.5 mg/dL 2.5-8.0 PROTEIN, RANDOM [id number] 12:33:00* Test Item Value Reference Range Interpretation Comments PROTEIN, URINE (BEAKER) (test code = 1569) 35 mg/dL 0-14 HH BASIC METABOLIC [id number] 12:30:00* Test Item Value Reference Range Interpretation Comments SODIUM (BEAKER) (test code = 381) 139 meq/L 135-148 POTASSIUM (BEAKER) (test code = 379) 5.2 meq/L 3.5-5.5 CHLORIDE (BEAKER) (test code = 382) 111 meq/L 98-106 H CO2 (BEAKER) (test code = 355) 18 meq/L 20-31 L BLOOD UREA NITROGEN (BEAKER) (test code = 354) 59 mg/dL 10-26 H CREATININE (BEAKER) (test code = 358) 1.93 mg/dL 0.50-1.20 H GLUCOSE RANDOM (BEAKER) (test code = 652) 92 mg/dL 70-110 CALCIUM (BEAKER) (test code = 697) 9.4 mg/dL 8.5-10.5 EGFR (BEAKER) (test code = 1092) 26 mL/min/1.73 sq m ESTIMATED GFR IS NOT ACCURATE CREATININE CLEARANCE IN PREDICTING GLOMERULAR FILTRATION RATE. ESTIMATED GFR IS NOT APPLICABLE FOR DIALYSIS PATIENTS. CREATININE, RANDOM [id number] 12:26:00* Test Item Value Reference Range Interpretation Comments CREATININE URINE (BEAKER) (test code = 375) 23.6 mg/dL Reference Range: No [id number] 12:24:00* Test Item Value Reference Range Interpretation Comments MAGNESIUM (BEAKER) (test code = 627) 2.3 mg/dL 1.5-3.0 [id number] 12:24:00* Test Item Value Reference Range Interpretation Comments PHOSPHORUS (BEAKER) (test code = 604) 4.4 mg/dL 2.5-4.5 URINALYSIS W/ REFLEX URINE [id number] 12:10:00* Test Item Value Reference Range Interpretation Comments COLOR (BEAKER) (test code = 470) Light Yellow CLARITY (BEAKER) (test code = 469) Clear SPECIFIC GRAVITY UA (BEAKER) (test code = 468) 1.005 1.001-1 .035 PH UA (BEAKER) (test code = 467) 5.0 5.0-8.0 PROTEIN UA (BEAKER) (test code = 464) 30 mg/dL Negative A GLUCOSE UA (BEAKER) (test code = 365) Negative Negative KETONES UA (BEAKER) (test code = 371) Negative Negative BILIRUBIN UA (BEAKER) (test code = 462) Negative Negative BLOOD UA (BEAKER) (test code = 461) Small Negative A NITRITE UA (BEAKER) (test code = 465) Negative Negative LEUKOCYTE ESTERASE UA (BEAKER) (test code = 466) Negative Negat zaria UROBILINOGEN UA (BEAKER) (test code = 463) < mg/dL 0.2-1.0 RBC UA (BEAKER) (test code = 519) 1 /HPF WBC UA (BEAKER) (test code = 520) 1 /HPF MUCUS (BEAKER) (test code = 1574) Rare SQUAMOUS EPITHELIAL (BEAKER) (test code = 516) 1 /HPF HYALINE CASTS (BEAKER) (test code = 514) 8 /LPF SOURCE(BEAKER) (test code = 2795) MR, SPINE, LUMBAR, WITHOUT [id number] 11:59:00FINAL REPORT MRI of the lumbar spine [...] moderate L3/4, moderate to severe L4/5. Signed: Kyara Dietz Verified Date/Time: 07/06/2017 11:59:20 Reading Location: [address] Neuro Reading Room W/PLT COUNT & AUTO [id number] 11:53:00* Test Item Value Reference Range Interpretation Comments WHITE BLOOD CELL COUNT (BEAKER) (test code = 775) 6.9 K/ L 4.0- 10.0 RED BLOOD CELL COUNT (BEAKER) (test code = 761) 3.13 M/ L 4.00-5 .00 L HEMOGLOBIN (BEAKER) (test code = 410) 9.5 GM/DL 12.0-15.0 L HEMATOCRIT (BEAKER) (test code = 411) 28.3 % 36.0-45.0 L MEAN CORPUSCULAR VOLUME (BEAKER) (test code = 753) 90.4 fL 82. 0-99.0 MEAN CORPUSCULAR HEMOGLOBIN (BEAKER) (test code = 751) 30.2 pg 27.0-33.0 MEAN CORPUSCULAR HEMOGLOBIN CONC (BEAKER) (test code = 752) 33.4 GM/DL 32.0-36.0 RED CELL DISTRIBUTION WIDTH (BEAKER) (test code = 412) 13.3 % 12.0-15.0 PLATELET COUNT (BEAKER) (test code = 756) 173 K/CU MM 150-430 MEAN PLATELET VOLUME (BEAKER) (test code = 754) 8.0 fL 6.5-10 .5 NUCLEATED RED BLOOD CELLS (BEAKER) (test code = 413) 0 /100 WBC 0 -0 NEUTROPHILS RELATIVE PERCENT (BEAKER) (test code = 429) 53 % LYMPHOCYTES RELATIVE PERCENT (BEAKER) (test code = 430) 32 % MONOCYTES RELATIVE PERCENT (BEAKER) (test code = 431) 8 % EOSINOPHILS RELATIVE PERCENT (BEAKER) (test code = 432) 7 % BASOPHILS RELATIVE PERCENT (BEAKER) (test code = 437) 0 % NEUTROPHILS ABSOLUTE COUNT (BEAKER) (test code = 670) 3.60 K/ L 1.80-8.00 LYMPHOCYTES ABSOLUTE COUNT (BEAKER) (test code = 414) 2.20 K/ L 1.48-4.50 MONOCYTES ABSOLUTE COUNT (BEAKER) (test code = 415) 0.60 K/ L 0. 00-1.30 EOSINOPHILS ABSOLUTE COUNT (BEAKER) (test code = 416) 0.50 K/ L 0.00-0.50 BASOPHILS ABSOLUTE COUNT (BEAKER) (test code = 417) 0.00 K/ L 0. 00-0.20 RAD, SPINE, LUMBAR, COMPLETE (MIN 4 VIEWS)2017-07-06 10:47:00Reason for Exam:-> Low back painReason for Exam:->Chronic kidney disease, stage 3 (moderate)FINAL REPORT TECHNIQUE: Frontal, lateral, bilateral oblique and cone-down views of the lumbosacral spine dated 07/06/2017. HISTORY: Low back pain. COMPARISON: None. FINDINGS:There are 5 [id number] vertebral bodies. Bones are osteopenic. There is a normal lumbar lordosis. No fracture or malalignment is seen. Intervertebral disc spaces are normal in height. No bony foraminal narrowing is seen. Normal bowel gas pattern is seen. IMPRESSION:No fracture or malalignment. Signed: Matthew Barbosa MDReport Verified Date/Time: 017 10:47:32 Reading Location: [facility] Radiology Reading Room Electronically sig padmini by: MATTHEW BARBOSA on 07/06/2017 10:47 AM RAD, CHEST, [...] IMPRESSION: No acute cardiopulmonary abnormality. Signed: Cheikh Calero Verified Date/Time: 07/06/2017 10:29:53 Reading Location: [facility] Diagnostic Imaging Reading Room - [place] [address]
--- OUTSIDE RECORDS SUMMARY | 2020-06-14 13:46 | XMS REPORT | Clinical Summary ---
Author Author [facility] Address Unknown Phone Unavailable Care Team Providers Care Sewer Connector Name Role Phone Belkis Trammell MD PCP Allergies Not on File Medications Not on file Active Problems Not on file Social History Date Tobacco Use Types Packs/Day Years Used Never Assessed Sex Assigned at Date Recorded Not on file Industry Job Start Date Occupation Not on file Not on file Not on file Travel End Travel History Travel Start No recent travel history available. Last Filed Vital Signs Not on file Plan of Treatment Not on file Results Not on fileafter 06/14/2019 Insurance Payer Benefit Subscriber ID Type Phone Address Plan / Group MEDICARE MEDICARE A xxxxxxxxxx Medicare B MEDICAID - MEDICAID MGD [facility] xxxxxxxxx Medica id CARE COMM STAR Contracted PLAN [id number]
--- NOTE | 2020-06-14 15:31 | Diagnostic Imaging Report ---
CT BRAIN WO HISTORY: Fall COMPARISON: Head CT 09/10/2019 Technique: Noncontrast axial scans were obtained from skull base to the vertex. Coronal and sagittal reconstructions obtained from the axial data. One or more of the following dose reduction techniques were used: Automated exposure control, adjustment of the mA and/or kV according to patient size, and/or utilization of iterative reconstruction technique. DISCUSSION: Scalp/Skull: Unremarkable. Brain sulci: Mildly prominent. Ventricles: Compensatory dilatation. Extra-axial spaces: No masses or fluid collections. Carotid and vertebral artery calcifications are present. Parenchyma: Mild bilateral deep white matter hypodensity is likely chronic microvascular ischemic change. Otherwise, no masses, hemorrhage, or large vascular territory acute infarct. Dural sinuses: No abnormal densities. Sellar/Suprasellar region: Intact. Skull base: Intact. Incidental findings: Mild right lamina papyracea deformity may be from remote trauma or congenital dehiscence. Mild left maxillary sinus mucosal thickening is partially imaged. IMPRESSION: 1. No acute intracranial abnormalities. 2. Mild supratentorial chronic microvascular ischemic change. Mild generalized cerebral volume loss. Signed by: Dr. Peyman Garcia M.D. on 06/14/2020 3:28 PM
--- NOTE | 2020-06-14 15:37 | Diagnostic Imaging Report ---
CT CERVICAL SPINE WO HISTORY: Trauma COMPARISON: Cervical spine CT 09/10/2019 TECHNIQUE: CT of the cervical spine without contrast. Sagittal and coronal reformations were created. One or more of the following dose reduction techniques were used: Automated exposure control, adjustment of the mA and/or kV according to patient size, and/or utilization of iterative reconstruction technique. FINDINGS: Mild bone demineralization limits evaluation. Cervical lordosis is straightened. There is no significant scoliosis. No definite acute fracture or compression deformity seen. The craniocervical junction is intact. No gross spinal canal masses are seen. The paravertebral and paraspinal soft tissues are unremarkable. Degenerative changes: There are advanced spondylotic changes at C5-C6 and C6-C7. Grade 1 anterolisthesis of C4 on C5 is due to advanced right C4-C5 facet arthrosis. There is at least mild canal stenosis from C4-C5 to C6-C7 due to posterior disc osteophyte complexes. Prominent atlantoaxial arthrosis is present as well. Additional findings: Small coarse calcification is seen in the right thyroid lobe. Mild to moderate bilateral carotid bulb calcified plaque is present. Left IJ line is partially imaged. IMPRESSION: 1. No acute osseous abnormalities. 2. Degenerative changes as described above. Signed by: Dr. Peyman Garcia M.D. on 06/14/2020 3:34 PM
--- NOTE | 2020-06-14 16:32 | Emergency Department Note ---
History of Present Illnes History of Present Illness Chief Complaint: General Medicine Complaints History of Present Illness This is a 70 year old female Patient in from [facility] via EMS with reports of a fall that happened at the facility. Per staff report the patient was walking and tripped over her own feet and fell and may have hit her head. 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 Any updates have been documented here. Past Medical History Recent Fever: No Clinical Suspicion of Infectio: No New/Unexplained Change in Ment: No Past Medical History: Hypertension, Diabetes, Hemodyalisis, GERD Other Medical History: [facility] M/W/F Past Surgical History: CABG Social History Smoking Cessation: Never Smoker Counseling Performed: No Alcohol Use: None Any Illegal Drug Use: No TB Exposure/Symptoms: No Physically hurt or threatened: No Family History Family history of heart diseas: No Other Any Pre-Existing Lines (PICC,: No Review of Systems Review of Systems Constitutional: Reports no symptoms EENTM: Reports no symptoms Cardiovascular: Reports no symptoms Respiratory: Reports no symptoms Gastrointestinal: Reports no symptoms Genitourinary: Reports no symptoms Musculoskeletal: Reports no symptoms Integumentary: Reports no symptoms Neurological: Reports no symptoms Psychological: Reports no symptoms Endocrine: Reports no symptoms Hematological/Lymphatic: Reports no symptoms Physical Exam Related Data Allergies: Coded Allergies: No Known Drug Allergies (Verified Allergy, Mild, 01/30/11) Triage Vital Signs Vital Signs Date Time Temp Pulse Resp B/P (MAP) Pulse Ox O2 Delivery O2 Flow Rate FiO2 06/14/20 13:48 97.4 77 17 132/81 100 Room Air Vital signs reviewed: Yes Physical Exam CONSTITUTIONAL Constitutional: Present well-developed, Present well-nourished HENT HENT: Present normocephalic, Present atraumatic, Present oropharynx clear/moist, Present nose normal HENT L/R: Present left ext ear normal, Present right ext ear normal EYES Eyes: Reports PERRL, Reports conjunctivae normal NECK Neck: Present ROM normal PULMONARY Pulmonary: Present effort normal, Present breath sounds normal, Present other (left tunneled HD cath) CARDIOVASCULAR Cardiovascular: Present regular rhythm, Present heart sounds normal, Present capillary refill normal, Present normal rate GASTROINTESTINAL Abdominal: Present soft, Present nontender, Present bowel sounds normal GENITOURINARY Genitourinary: Present exam deferred SKIN Skin: Present warm, Present dry MUSCULOSKELETAL Musculoskeletal: Present ROM normal NEUROLOGICAL Neurological: Present alert, Present oriented x 3, Present no gross motor or sensory deficits PSYCHOLOGICAL Psychological: Present mood/affect normal, Present judgement normal Results Imaging Imaging results reviewed: Yes Procedures 12 Lead ECG Interpretation ECG Interpretation : ECG: ECG 1 Sludge Control Operator: Interpreted by ED physician Date: Jun 14, 2020 Time: 13:54 Rhythm: sinus rhythm Rate: normal (77) QRS axis: normal ST segments normal: Yes T waves normal: Yes Clinical Impression: normal ECG Assessment & Plan Medical Decision Making MDM fall on anticoagulants - check ct brain/c-spine - r/o cva, sdh, sah, epidural, cervical fx Reassessment Reassessment dc back to [place] Assessment & Plan Final Impression: (1) Fall Depart Disposition: DISC/XFER TO INPT REHAB FAC Last Vital Signs Date Time Temp Pulse Resp B/P (MAP) Pulse Ox O2 Delivery O2 Flow Rate FiO2 06/14/20 13:48 97.4 77 17 132/81 100 Room Air NEGRO MCCALLUM MD Jun 14, 2020 16:32
== END 2020-06-14 18:23 ==
LOC: ER 13:43
DX: S00.83XA Contusion of other part of head, initial encounter (principal); W01.0XXA Fall on same level from slipping, tripping and stumbling without subsequent striking against object, initial encounter; Y93.01 Activity, walking, marching and hiking; Y92.128 Other place in nursing home as the place of occurrence of the external cause; E11.65 Type 2 diabetes mellitus with hyperglycemia; Z99.2 Dependence on renal dialysis; I10 Essential (primary) hypertension; G20 Parkinson's disease; K21.9 Gastro-esophageal reflux disease without esophagitis
CPT/HCPCS: 70450; 72125; 93005; 99284

== ENCOUNTER 2020-06-17 11:56 | Inpatient (IN) | payer MEDICARE, OTHER ==
[~2020-06-17] VITALS: Ht 154.9 cm; Wt 43.5 kg
--- NOTE | 2020-06-17 12:06 | Emergency Department Note ---
History of Present Illnes History of Present Illness Chief Complaint: General Medicine Complaints History of Present Illness This is a 70 year old female presents to the ED for evaluation of AMS per NH. Seen prior for s/p fall. Patient unable provide meaningful history . Arrival Mode: History limited by: condition of the patient Inside Contractor Sales Required: No Onset (how long ago): hour(s) Radiation: Reports non-radiation Severity: moderate Onset quality: gradual Duration (how long): hour(s) Progression: worsening Chronicity: recurrent Context: Reports trauma/injury Relieving factors: none Exacerbating factors: medication Associated symptoms: Reports denies other symptoms Past Medical/Family History Physician Review I have reviewed the patient's past medical and family history. Any updates have been documented here. Past Medical History Recent Fever: No Clinical Suspicion of Infectio: No New/Unexplained Change in Ment: No Past Medical History: Hypertension, Diabetes, Hemodyalisis, GERD Other Medical History: [facility] M/W/F Past Surgical History: CABG Review of Systems ROS Narrative Unable to obtain ROS: altered mental status Physical Exam Related Data Allergies: Coded Allergies: No Known Drug Allergies (Verified Allergy, Mild, 01/30/11) Triage Vital Signs Vital Signs Date Time Temp Pulse Resp B/P (MAP) Pulse Ox O2 Delivery O2 Flow Rate FiO2 06/17/20 12:01 Physical Exam CONSTITUTIONAL Constitutional: Present well-developed HENT HENT: Present normocephalic, Present atraumatic, Present oropharynx clear/moist, Present nose normal HENT L/R: Present left ext ear normal, Present right ext ear normal EYES Eyes: Reports PERRL, Reports conjunctivae normal NECK Neck: Present ROM normal PULMONARY Pulmonary: Present effort normal, Present breath sounds normal CARDIOVASCULAR Cardiovascular: Present regular rhythm, Present heart sounds normal, Present capillary refill normal, Present normal rate GASTROINTESTINAL Abdominal: Present soft, Present nontender, Present bowel sounds normal GENITOURINARY Genitourinary: Present exam deferred SKIN Skin: Present warm, Present dry MUSCULOSKELETAL Musculoskeletal: Present ROM normal NEUROLOGICAL Neurological: Present no gross motor or sensory deficits PSYCHOLOGICAL Psychological: Present other (abnormal insight into medical condition . Combative) Results Laboratory Lab results reviewed: Yes Imaging Imaging results reviewed: Yes Impressions [place] [id number] Patient Name: TED SCHREIBER MR #: [id number] : 1950 Age/Sex: 70/F Req #: [id number] Adm Physician: Ordered by: KUMAR AVILA DO Report #: [id number] Location: ER Room/Bed: Procedure: [id number] DX/CHEST SINGLE (PORTABLE) Exam Date: Exam Time: REPORT STATUS: Signed TECHNIQUE: Frontal view of the chest. INDICATION: ^ams COMPARISON: None DISCUSSION: Limited evaluation due to portable technique. Lines and hardware: Left-sided HERO graft is noted with tip terminating at the mid to inferior right atrium. Coronary artery stents are noted. Midline sternotomy changes are noted. Heart and mediastinum: Cardiomediastinal silhouette is normal in size. Thoracic aorta is tortuous. Trachea projects midline. Lungs and pleura: No focal airspace consolidation. No pleural effusion. No pneumothorax. Soft tissues and bones: No acute abnormality. Surgical clips are identified in the right upper quadrant consistent with cholecystectomy change. IMPRESSION: Negative for acute intrathoracic process. Signed by: Avi Stokes MD on 06/17/2020 1:10 PM Dictated By: AVI STOKES MD 09 Transcribed By: CLAUDIA on 06/17/201309 COPY TO: KUMAR AVILA DO~ [place] [address] Patient Name: TED SCHREIBER MR #: [id number] : 1950 Age/Sex: 70/F Req #: [id number] Adm Physician: Ordered by: KUMAR AVILA DO Report #: [id number] Location: ER Room/Bed: Procedure: [id number] CT/CT BRAIN WO Exam Date: 06/17/20 Exam Time: 1320 REPORT STATUS: Signed EXAMINATION: Head CT HISTORY: 70-year-old female with altered mental status COMPARISON: Head CT 06/14/2020 TECHNIQUE: Helical axial images of the head were obtained. Reformatted coronal and sagittal images from the axial data. Dose modulation, iterative reconstruction, and/or weight based adjustment of the mA/kV was utilized to reduce the radiation dose to as low as reasonably achievable. FINDINGS: Parenchyma: 1. Persistent mild white matter chronic microvascular ischemic changes. 2. No mass or hemorrhage. No CT evidence of acute territorial vascular insult. Extra-axial spaces:No abnormal density. No extra-axial fluid collections Brain volume: Mild generalized volume loss. Ventricles: No hydrocephalus or displacement. Arteries: No density suggestive of thrombus. Dural sinuses: No abnormal density. Foramen magnum: No mass, Chiari malformation, or basilar invagination. Sella: No obvious mass. Paranasal/mastoid sinuses: Imaged portions unremarkable. Skull/Scalp: No lytic or blastic lesions. No fractures. IMPRESSION: 1. No acute intracranial abnormalities. 2. Mild chronic microvascular ischemic changes, unchanged from head CT of 06/14/2020. Signed by: Dr. Miles Epps M.D. on 06/17/2020 1:59 PM Dictated By: MILES EPPS MD [id number] Transcribed By: CLAUDIA on 06/17/20 0987 COPY TO: KUMAR AVILA DO~ Procedures 12 Lead ECG Interpretation ECG Interpretation : ECG: ECG 1 Inside Contractor Sales: Interpreted by ED physician Date: Jun 17, 2020 Time: 12:56 Prior ECG tracings: reviewed Rate: normal BPM: 85 QRS axis: normal ST segments normal: No ST segment flattening: V4, V5, V6 T waves normal: Yes Clinical Impression: non-specific ECG Assessment & Plan Medical Decision Making MDM Diff Dx : CVA, UTI, Sepsis, ACS, electrolyte abnormality Assessment & Plan Final Impression: (1) Altered mental status (2) Combative behavior (3) UTI (urinary tract infection) (4) Renal insufficiency Depart Disposition: ADMITTED Last Vital Signs Date Time Temp Pulse Resp B/P (MAP) Pulse Ox O2 Delivery O2 Flow Rate FiO2 06/17/20 12:01 Home Meds Reported Medications Ranolazine (RANEXA) 1,000 Mg Tab.er.12h, 500 MG PO BID, TAB 06/17/20 Metoprolol Tartrate (METOPROLOL TARTRATE) 25 Mg Tablet, 0.5 TAB PO BID, TAB 06/17/20 Furosemide (FUROSEMIDE) 40 Mg Tablet, 80 MG PO BID, #30 TAB 06/17/20 Famotidine (FAMOTIDINE) 20 Mg Tab, 20 MG PO HS, #30 TAB 06/17/20 Clopidogrel Bisulfate (CLOPIDOGREL) 75 Mg Tablet, 75 MG PO DAILY, #30 TAB 06/17/20 Benztropine Mesylate (BENZTROPINE MESYLATE) 1 Mg Tablet, PO BID 06/17/20 Ferric Citrate (Auryxia) 210 Mg Tablet, 1 TAB PO TID 06/17/20 Amoxicillin/Potassium Clav (AUGMENTIN 500-125 TABLET) 1 Each Tablet, 500 MG PO DAILY, #60 TAB 06/17/20 Atorvastatin Calcium (LIPITOR) 20 Mg Tablet, 40 MG PO HS, TAB 06/17/20 Amantadine Hcl (AMANTADINE) 100 Mg Capsule, 100 MG PO TID 06/17/20 Insulin Lispro (Admelog Solostar) 100 Unit/1 Ml Insuln.pen 06/17/20 KUMAR AVILA DO Jun 17, 2020 12:06
[2020-06-17] MEDS ORDERED: SODIUM CHLORIDE 0.9% 1000ML 1,000 ML IV STA (12:09)
[2020-06-17] MEDS ORDERED: ZIPRASIDONE 20 MG VIAL IM STA (12:48)
[2020-06-17 12:58] LABS: BASOPHILS % 0.3 % (0.0-1.0); BILIRUBIN,URINE SMALL (NEGATIVE); CLARITY,URINE CLEAR (CLEAR); COLOR,URINE YELLOW (YELLOW); EOSINOPHILS # (AUTO) 0.2 (0.0-0.4); EOSINOPHILS % 2.5 % (0.0-6.0); HEMATOCRIT 28.5 % (34.2-44.1); HEMOGLOBIN 9.5 g/dL (12.0-16.0); KETONES,URINE NEGATIVE (NEGATIVE); LEUKOCYTE ESTERASE ,URINE SMALL (NEGATIVE); LYMPHOCYTES # (AUTO) 1.6 (1.0-3.2); LYMPHOCYTES % 20.8 % (18.0-39.1); MEAN CORPUSCULAR HEMOGLOBIN 31.3 pg (28-32); MEAN CORPUSCULAR HGB CONC 33.3 g/dL (31-35); MEAN CORPUSCULAR VOLUME 93.8 fL (81-99); MONOCYTES # (AUTO) 0.8 (0.2-0.8); MONOCYTES % 10.2 % (4.4-11.3); NEUTROPHILS # (AUTO) 5.1 (2.1-6.9); NEUTROPHILS % 65.9 % (38.7-80.0); NITRITE,URINE NEGATIVE (NEGATIVE); PLATELET COUNT 136 x10e3/uL (140-360); PROTEIN,URINE DIPSTICK 2+ (NEGATIVE); RED BLOOD COUNT 3.04 x10e6/uL (3.6-5.1); RED CELL DISTRIBUTION WIDTH 13.6 % (11.7-14.4); URINE UROBILINOGEN 0.2 mg/dL (0.2 - 1)
--- OUTSIDE RECORDS SUMMARY | 2020-06-17 13:07 | XMS REPORT | Summary of Care ---
Author Author [facility] Organization [facility] Address Unknown Phone Unavailable Encounter HQ Elda(MALOU) [phone] Date(s): 10/26/19 - 10/27/19 [facility] [address] [place] [address]- Encounter Diagnosis Closed sacral fracture (Discharge Diagnosis) - 10/27/19 Accidental fall (Discharge Diagnosis) - 10/27/19 Compression fracture of L1 vertebra (Discharge Diagnosis) - 10/27/19 Discharge Disposition: Home or Self Care Attending Physician: Carlos Parks MD Vital Signs 1 2 3 Most recent to oldest [Reference Range]: 152.4 cm (10/26/19 9:10 PM) Height 97.9 DegF (10/27/19 3:13 AM) 97.4 DegF (10/26/19 10:36 PM) 96 DegF *LOW* (10/26/19 9:10 PM) Temperature Oral [96.4-99.1 DegF] 129/55 mmHg (10/27/19 3:13 AM) 133/62 mmHg (10/27/19 12:22 AM) 133/56 mmHg (10/26/19 10:36 PM) Blood Pressure [90-140/60-90 mmHg] 20 BRMIN (10/27/19 3:13 AM) 16 BRMIN (10/26/19 10:36 PM) 20 BRMIN (10/26/19 9:10 PM) Respiratory Rate [14-20 BRMIN] 64 bpm (10/27/19 3:13 AM) 61 bpm (10/26/19 10:36 PM) 60 bpm (10/26/19 9:10 PM) Peripheral Pulse Rate [60-100 bpm] 57.727 kg (10/26/19 9:10 PM) Weight 24.85 m2 (10/26/19 9:10 PM) Body Mass Index Problem List Condition Effective Dates Status Health Status Informan t Alzheimer Resolved disease(Confirmed) Cholelithiasis(Confi Resolved rmed) Coronary artery Active disease(Confirmed) Diabetes Active mellitus(Confirmed) Escherichia Active coli(Confirmed)1 Hepatitis Active C(Confirmed) Hypertension(Confirm Active ed) Volume Active overload(Confirmed) 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 Allergies, Adverse Reactions, Alerts No Known Medication Allergies Medications acetaminophen-hydrocodone 325 mg-5 mg oral tablet 1 tab, Route: PO, Drug Form: TAB, Dosing Weight 57.727, kg, ONCE, STAT, Start da te: 10/26/19 23:13:00 ASSISTANT CROSS COUNTRY COACH, Stop date: 10/26/19 23:13:00 ASSISTANT CROSS COUNTRY COACH Start Date: 10/26/19 Stop Date: 10/26/19 Status: Completed acetaminophen-hydrocodone 325 mg-5 mg oral tablet 1 tab, Route: PO, Drug Form: TAB, Dosing Weight 57.727, kg, ONCE, STAT, Start da te: 10/27/19 0:46:00 ASSISTANT CROSS COUNTRY COACH, Stop date: 10/27/19 0:46:00 ASSISTANT CROSS COUNTRY COACH Start Date: 10/27/19 Stop Date: 10/27/19 Status: Completed tizanidine 4 mg, 1 tab, Route: PO, Drug form: TAB, ONCE, Dosing Weight 57.727, kg, Start da te: 10/26/19 23:13:00 ASSISTANT CROSS COUNTRY COACH, Stop date: 10/26/19 23:13:00 ASSISTANT CROSS COUNTRY COACH, 0 Notes: (Same As: Zanaflex) Start Date: 10/26/19 Stop Date: 10/27/19 Status: Completed Tylenol with Codeine #3 oral tablet 1 tab, PO, Q6H, PRN Pain, X 7 day, # 28 tab, 0 Refill(s) Start Date: 10/27/19 Stop Date: 11/03/19 Status: Ordered Results No data available for this section Immunizations Given and Recorded Vaccine Date Status Refusal Reason pneumococcal 13-valent vaccine 01/16/17 Given influenza virus vaccine, inactivated 01/16/17 G iven pneumococcal 23-valent vaccine 02/18/16 Given Procedures Procedure Date Related Diagnosis Body Site Status Abdominal hysterectomy Completed CABG x 1 - Coronary artery bypass graft x 1 Compl eted Cholecystectomy1 Completed Cholecystotomy Completed Eye care Completed 12549 Social History Social History Type Response Alcohol Never Substance Abuse Use: None. Smoking Status Never smoker; Exposure to T obacco Smoke None; Cigarette Smoking Last 365 Days No; Reg Smoking Cessation Counseli ng No entered on: 10/26/19 Assessment and Plan No data available for this section
--- OUTSIDE RECORDS SUMMARY | 2020-06-17 13:07 | XMS REPORT | Continuity of Care Document ---
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 Role Phone [employer] Unavailable Un available Problems Problem Status Onset Date Classification Date Reported Comments Source AMS Active 0 05/31/2020 [facility] STROKE LIKE SYMPTOMS Active 05/31/2020 [facility] ALTERED MENTAL STATUS Active 05/31/2020 [facility] BACK PAIN Active 05/23/2020 [facility] BRAIN TIA, ENCEPHALOPATHY Acti ve 05/23/2020 [facility] R06.02 SHORTNESS OF BREATH Act zaria 01/15/2020 [facility] Headache 01/01/2020 [facility] DIZZINESS Active 12/30/2019 [facility] End stage renal disease 12/11/2019 12/13/2019 [facility] Diarrhea, unspecified 12/11/2019 12/13/2019 [facility] Pneumonia, unspecified organism 12/11/2019 12/13/2019 [facility] Urinary tract infection, site not specified 12/11/2019 12/13/2019 [facility] Generalized abdominal pain 12/11/2019 12/13/2019 [facility] ABDOMINAL PAIN Active 12/11/2019 [facility] HEADACHE Active 12/05/2019 [facility] UTI, SEVERE SEPSIS Active 11/21/2019 [facility] Unspecified fall, initial encounter 10/27/2019 10/29/2019 [facility] Unspecified fracture of sacrum, initial encounter for closed fracture 10/27/2019 10/29/2019 [facility] Wedge compression fracture of first lumb ar vertebra, initial encounter for closed fracture 10/27/2019 10/29/2019 [facility] FALL Active 10/26/2019 [facility] Anxiety disorder, unspecified 09/03/2019 09/05/2019 [facility] ANXIETY Active 09/03/2019 [facility] Pain in unspecified hip 07/13/2019 07/15/2019 [facility] FALL INJURY/ SOB Active 07/13/2019 [facility] B18.2 CHRONIC VIRAL HEPATITIS C, Z68.23 Active 06/20/2019 [facility] SOB Active 0 04/03/2019 [facility] AMS, UNSPECIFIED Active 04/03/2019 [facility] CELLULITIS, HYPERKALEMIA Active 02/28/2019 [facility] WEAKNESS Active 02/12/2019 [facility] Sepsis, unspecified organism 12/07/2018 05/26/2019 [facility] BACTERIAL PNEUMONIA Active 11/01/2018 [facility] Unspecified injury of head, initial encounter 10/02/2018 04/21/2019 [facility] Contusion of other part of head, initial encounter 10/02/2018 04/21/2019 [facility] Orthostatic hypotension 08/15/2018 02/23/2019 [facility] WEAK/DIZZY Active 07/28/2018 [facility] FALL, SYNCOPE Active 07/28/2018 [facility] Z12.31 - ENCNTR SCREEN MAMMOGRAM FOR MA Active 07/16/2018 [facility] [place] BILATERAL PLEURAL EFFUSION, CKD (CHRONIC Active 04/28/2018 [facility] I25.10 Active 04/12/2018 [facility] CAD Active 0 04/02/2018 [facility] CHEST PAIN Active 02/28/2018 [facility] DEBILITY Active 02/28/2018 [facility] HYPERKALEMIA Active 02/14/2018 [facility] DIZZY Active 02/14/2018 [facility] CP Active [facility] ACUTE CHF Active 02/08/2018 [facility] Chest pain, unspecified 01/24/2017 02/03/2017 [facility] Hyperglycemia, unspecified 01/24/2017 02/03/2017 [facility] Shortness of breath 01/24/2017 02/03/2017 [facility] HIGH GLUCOSE Active 01/24/2017 [facility] CP IN ADULT, HYPERGLYCEMIA, SOB Active 01/24/2017 [facility] ACUTE KIDNEY INJURY, DEHYDRATION, FEVER Active 01/15/2017 [facility] SYNCOPE Active 02/17/2016 [facility] PANCREATITIS Active 02/17/2016 [facility] Discharge Diagnosis: Back pain 07/19/2014 07/21/2014 [facility] Discharge Diagnosis: Muscle spasm 07/19/2014 07/21/2014 [facility] Discharge Diagnosis: Depression 07/19/2014 07/21/2014 [facility] Discharge Diagnosis: Diabetes mellitus 07/19/2014 07/21/2014 [facility] POSS HYPOGLYCEMIA Active 07/18/2014 [facility] 070.44 CHRONIC HEPATITIS C Act zaria 04/23/2014 [facility] 571.5 CARDIAC CIRRHOSIS Active 11/19/2013 [facility] Alzheimer's disease (disorder) Active Problem 09/2020 [facility] [place],[facility] Calculus in biliary tract (disorder) Resolved Problem 09/2020 [facility], [facility] [place],[facility] Coronary arteriosclerosis (disorder) Active Problem 09/2020 [facility], [facility] [facility] Diabetes mellitus (disorder) R esolved Problem 09/2020 [facility], [facility] [place],[facility] Escherichia coli (organism) Ac tive Problem 09/2020 Problem added by Discern Expert. [facility] Viral hepatitis C (disorder) A ctive Problem 09/2020 [facility], [facility] [place],[facility] Hypertensive disorder, systemic arterial (disorder) Active Problem 06/09/2020 [facility] Hypervolemia (disorder) Active Problem 06/09/2020 [facility], [place] [facility] Kidney disease (disorder) Acti ve Problem 09/2020 [facility], [place] [facility] Myocardial infarction (disorder) Resolved Problem 09/2020 [facility], [facility] [place],[facility] Occult blood in stools (disorder) Active Problem 09/2020 [facility], [place] Cerebrovascular accident (disorder) Resolved Problem 09/2020 [facility], [facility] [place],[facility] Other malaise 04/04/2018 [facility] Acute tubular necrosis (disorder) Resolved Problem 09/2020 [facility], [place] Chronic kidney disease stage 4 (disorder) Active Problem 02/23/2019 [facility] Chronic diastolic (congestive) heart failure 02/23/2019 [facility] Hypertensive heart and chronic kidney di sease with heart failure and with stage 5 chronic kidney disease, or end stage renal disease 02/23/2019 [facility] Unspecified viral hepatitis C without hepatic coma 05/26/2019 [facility] Unspecified Escherichia coli [E. coli] a s the cause of diseases classified elsewhere 02/23/2019 [facility] Anemia in chronic kidney disease 02/23/2019 [facility] Hypokalemia 02/23/2019 [facility] Hyperlipidemia, unspecified 04/21/2019 [facility] Type 2 diabetes mellitus with diabetic c hronic kidney disease 05/26/2019 [facility] Dementia in other diseases classified el sewhere without behavioral disturbance 05/26/2019 [facility] Alzheimer's disease, unspecified 05/26/2019 [facility] Atherosclerotic heart disease of [place] coronary artery without angina pectoris 05/26/2019 [facility] Unspecified cirrhosis of liver 02/23/2019 [facility] History of falling 02/23/2019 [facility] Dependence on renal dialysis 05/26/2019 [facility] 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 04/21/2019 [facility] Presence of aortocoronary bypass graft 05/26/2019 [facility] terminal worker (current) use of antithromboti cs/antiplatelets 04/21/2019 [facility] Personal history of transient ischemic a ttack (TIA), and cerebral infarction without residual deficits 05/26/2019 [facility] Cervicalgia 04/21/2019 [facility] Fall (on) (from) unspecified stairs and steps, initial encounter 05/26/2019 [facility] Hypertensive chronic kidney disease with stage 5 chronic kidney disease or end stage renal disease 05/26/2019 [facility] Old myocardial infarction 05/26/2019 [facility] retirement (current) use of aspirin 04/21/2019 [facility] 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 04/21/2019 [facility] Acquired absence of both cervix and uterus 05/26/2019 [facility] Acquired absence of other specified part s of digestive tract 04/21/2019 [facility] Pleural effusion, not elsewhere classified 05/08/2018 [facility] Unspecified bacterial pneumonia 05/26/2019 [facility] Anemia in other chronic diseases classified elsewhere 05/26/2019 [facility] ACUTE PANCREATITIS, UNSPECIFIED Active [facility] ACUTE KIDNEY FAILURE, UNSPECIFIED Active [facility] CHEST PAIN, UNSPECIFIED Active [facility] HYPERGLYCEMIA, UNSPECIFIED Act zaria [facility] HEART FAILURE, UNSPECIFIED Act zaria [facility] HYPERKALEMIA Active [facility] OTHER MALAISE Active [facility] PLEURAL EFFUSION, NOT ELSEWHERE CLASSIFI Active [facility] CHRONIC KIDNEY DISEASE, UNSPECIFIED Active [facility] TYPE 2 DIABETES MELLITUS WITH HYPOGLYCEM Active [facility] UNSPECIFIED FALL, INITIAL ENCOUNTER Active [facility] SYNCOPE AND COLLAPSE Active [facility] UNSPECIFIED BACTERIAL PNEUMONIA Active [facility] CELLULITIS, UNSPECIFIED Active [facility] CHRONIC VIRAL HEPATITIS C Acti ve [facility] BODY MASS INDEX (BMI) 23.0-23.9, ADULT Active [facility] URINARY TRACT INFECTION, SITE NOT SPECIF Active [facility] TRANSIENT CEREBRAL ISCHEMIC ATTACK, UNSPECIFIED Active [facility] TRANSIENT CEREBRAL ISCHEMIC ATTACK, UNSP Active [facility] ENCEPHALOPATHY, UNSPECIFIED Ac tive [facility] ALTERED MENTAL STATUS, UNSPECIFIED Active [facility] Medications Medication Details Route Status Patient Instructions Ordering Provider Order Date Source atorvastatin 20 mg oral tablet 20 mg = 1 tab, PO, Bedtime, # 30 tab, 1 Refill(s), Pharmacy: [facility] #[id number], 157.48, cm, 05/31/20 7:16:00 CDT, Height, 50, kg, 05/31/20 7:16:00 CDT, Weight Active 06/07/2020 [facility] metoprolol tartrate 25 mg oral tablet 12.5 mg = 0.5 tab, PO, BID, # 30 tab, 1 Refill(s), Pharmacy: [facility] #[id number], 157.48, cm, 05/31/20 7:16:00 CDT, Height, 50, kg, 05/31/20 7:16:00 CDT, Weight Active 06/07/2020 [facility] Insulin Lispro KwikPen 100 units/mL injectable solutio n See Instructions, Give 3 unit SUB-Q TID-Before Meals 15 minutes before or immediately after a meal if blood glucose is greater than 200, # 3 mL, 0 Refill(s), Pharmacy: [facility] #[id number], 157.48, cm, 05/31/20 7:16:00 CDT, Height, 50, kg, 08... Active 06/07/2020 [facility] 12 HR ranolazine 500 MG Extended Release Tablet 500 mg = 1 tab, PO, Daily, # 30 tab, 0 Refill(s), Pharmacy: [facility][id number], 157.48, cm, 05/31/20 7:16:00 CDT, Height, 50, kg, 05/31/20 7:16:00 CDT, Weight Active 06/07/2020 [facility] Famotidine 20 MG Oral Tablet 2 0 mg = 1 tab, PO, BID, # 60 tab, 1 Refill(s), Pharmacy: [facility] #[id number], 157.48, cm, 05/31/20 7:16:00 CDT, Height, 50, kg, 05/31/20 7:16:00 CDT, Weight Active 06/07/2020 [facility] metoprolol tartrate Notes: (Sa me as: Lopressor) No Longer Active 06/05/2020 [facility] Labetalol 20 mg, Route: IVP, D rug form: INJ, ONCE, Dosing Weight 50, kg, Priority: STAT, Start date: 06/04/20 14:37:00 CDT, Stop date: 06/04/20 14:37:00 CDT Inactive 06/04/2020 [facility] Nitroglycerin 0.4 MG Sublingual Tablet 0.4 mg, 0, Route: SL, Drug form: TAB, ONCE, Dosing Weight 50, kg, PRN Chest Pain, Start date: 06/04/20 14:37:00 CDT Inactive 06/04/2020 [facility] Lovenox Notes: (Same as: Loven ox) No Longer Active 06/03/2020 [facility] Ativan Notes: (Same as: Ativan) Inactive 06/02/2020 [facility] Jus Notes: Reconstitute wit h 1.2 ml of sterile water. Final concentration = 20 mg/1ml. Maximum 40 mg/24 hours (Same As: Jus). Hazardous Drug Group 3:Reproductive risk Hazardous Drug -- Refer to safe handling procedure PPE Matrix MEDICATION WASTE Product Size: 20 mg Product Wasted: ___ mg No Longer Active 06/01/2020 [facility] atorvastatin Notes: (Same as: Lipitor) No Longer Active 06/01/2020 [facility] Dextrose 50% Syringe (D50W) 12 .5 gm, 25 mL, Route: IVP, Drug Form: INJ, Dosing Weight 50, kg, PRN, PRN Blood Glucose Results, Start date: 05/31/20 14:48:00 CDT, Duration: 30 day, Stop date: 06/30/20 14:47:00 CDT, 0 No Longer Active 05/31/2020 [facility] Glucagon 1 mg, Route: IM, Drug form: PDR/INJ, PRN, Dosing Weight 50, kg, PRN Blood Glucose Results, Start date: 05/31/20 14:48:00 CDT, Duration: 30 day, Stop date: 06/30/20 14:47:00 CDT, 0 No Longer Active 05/31/2020 [facility] Insulin Lispro Notes: (Same as : Humalog) Roll in palms of hands gently; Do not shake vigorously. WASTE: F/P - Black; E - Municipal Trash Bin Stable for 28 days at room temperature. Expires in days from Date No Longer Active 05/31/2020 [facility] clopidogrel Notes: (Same As: P lavix) No Longer Active 05/31/2020 [facility] Dextrose 50% Syringe (D50W) 12 .5 gm, 25 mL, Route: IVP, Drug Form: INJ, Dosing Weight 50, kg, PRN, PRN Blood Glucose Results, Start date: 05/31/20 11:11:00 CDT, Duration: 30 day, Stop date: 06/30/20 11:10:00 CDT, 0 Inactive 05/31/2020 [facility] Glucagon 1 mg, Route: IM, Drug form: PDR/INJ, PRN, Dosing Weight 50, kg, PRN Blood Glucose Results, Start date: 05/31/20 11:11:00 CDT, Duration: 30 day, Stop date: 06/30/20 11:10:00 CDT, 0 Inactive 05/31/2020 [facility] Ondansetron Notes: (Same as: Tino robbins) MEDICATION WASTE Product Size: 4 mg Product Wasted: ___ mg No Longer Active 05/31/2020 [facility] Acetaminophen Notes: Do not ex ceed 4 gm/day. (Same as: Tylenol) No Longer Active 05/31/2020 [facility] Saline Flush 0.9% Notes: (Same as: BD Posiflush) No Longer Active 05/31/2020 [facility] Saline Flush 0.9% Notes: (Same as: BD Posiflush) Active 05/24/2020 [facility] Aspirin Notes: Take with food. Inactive 05/24/2020 [facility] Zofran ODT 4 mg, Route: PO, Dr ug form: TABDIS, ONCE, Dosing Weight 53.636, kg, Priority: STAT, Start date: 05/23/20 15:18:00 CDT, Stop date: 05/23/20 15:18:00 CDT Inactive 05/23/2020 [facility] Tylenol 975 mg, Route: PO, Patel g form: TAB, ONCE, Dosing Weight 53.636, kg, Priority: STAT, Start date: 05/23/20 15:17:00 CDT, Stop date: 05/23/20 15:17:00 CDT Inactive 05/23/2020 [facility] Compazine Notes: (Same as: Com pazine) Inactive 12/30/2019 [facility] Benadryl 12.5 mg, Route: IVP, ONCE, Dosing Weight 58.182, kg, Priority: STAT, Start date: 12/30/19 12:51:00 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, Stop date: 12/30/19 12:51:00 CLEANING TEAM MEMBER Inactive 12/30/2019 [facility] Dexamethasone 10 mg, Route: IV P, ONCE, Dosing Weight 58.182, kg, Priority: STAT, Start date: 12/30/19 12:51:00 CLEANING TEAM MEMBER, Stop date: 12/30/19 12:51:00 CLEANING TEAM MEMBER Inactive 12/30/2019 [facility] Saline Flush 0.9% Notes: (Same as: BD Posiflush) Inactive 12/30/2019 [facility] Cephalexin 500 MG Oral Capsule [Keflex] 500 mg = 1 cap, PO, Daily, Take in the evening after dialysis at the same time every day., X 7 day, # 7 cap, 0 Refill(s) Active 12/12/2019 [facility] fluconazole 100 mg oral tablet 100 mg = 1 tab, PO, Daily, X 10 day, # 10 tab, 0 Refill(s), [id number] Active 11/26/2019 [facility] propranolol 10 mg oral tablet 10 mg = 1 tab, PO, Q12H, # 60 tab, 0 Refill(s), Pharmacy: [facility] #[id number] Active 11/26/2019 [facility] pantoprazole 40 MG Enteric Coated Tablet [Protonix] 40 mg = 1 tab, PO, BID, # 60 tab, 0 Refill(s), [facility][id number] Active 11/26/2019 [facility] Cephalexin 250 MG Oral Capsule [Keflex] 250 mg = 1 cap, PO, BID, X 10 day, # 20 cap, 0 Refill(s), Pharmacy: [facility] #[id number] Active 11/26/2019 [facility] Rocephin + sterile water 10 mL Notes: (Same As: Rocephin). Use with 100 mL NS and infuse over 30 min MEDICATION WASTE Product Size: 1000 mg Product Wasted: ___ mg Inactive 11/26/2019 [facility] Propranolol Notes: Give with f ood. (Same as: Inderal) No Longer Active 11/26/2019 [facility] Diflucan Notes: (Same as: Difl ucan) Do not refrigerate No Longer Active 11/25/2019 [facility] Sodium Chloride 0.9% IV 1,000 mL 1,000 mL, Rate: 75 ml/hr, Infuse over: 13.3 hr, Route: IV, Dosing Weight 53.5 kg, Total Volume: 1,000, Start date: 11/25/19 10:58:00 CLEANING TEAM MEMBER, Duration: 1 day, Stop date: 11/26/19 10:57:00 CLEANING TEAM MEMBER, 1.52, m2, 0 Inactive 11/25/2019 [facility] Insulin Lispro Notes: (Same as : Humalog) Roll in palms of hands gently; Do not shake vigorously. WASTE: F/P - Black; E - Municipal Trash Bin Stable for 28 days at room temperature. Expires in days from Date No Longer Active 11/25/2019 [facility] Keflex Notes: Take on empty st omach. (Same As: Keflex) No Longer Active 11/24/2019 [facility] Norvasc Notes: (Same as: Norva sc) Inactive 11/24/2019 [facility] Protonix Notes: Tablet should not be chewed or crushed. (Same as: Protonix) No Longer Active 11/24/2019 [facility] Al hydroxide/Mg hydroxide/simethicone Notes: (aluminum hydroxide-magnesium hyd-simethicone [id number]/5ml 30 ml ud MERRY) Inactive 11/23/2019 [facility] Xylocaine Viscous 2% mucous membrane solution Notes: (Same as: Xylocaine) Inactive 11/23/2019 [facility] Cephalexin 500 MG Oral Capsule [Keflex] 500 mg = 1 cap, PO, BID, X 7 day, # 14 cap, 0 Refill(s), Pharmacy: [facility] #[id number] No Longer Active 11/23/2019 [facility] Protonix Notes: Tablet should not be chewed or crushed. (Same as: Protonix) Inactive 11/23/2019 [facility] GI cocktail (aluminum hydroxide/magnesiu m hydroxide/lidocaine/simethicone) 45 ml, Route: PO, Drug Form: SUSP, Dosin g Weight 53.5, kg, ONCE, Routine, Start date: 11/23/19 12:28:00 CLEANING TEAM MEMBER, Stop date: 11/23/19 12:28:00 CLEANING TEAM MEMBER Inactive 11/23/2019 [facility] Imodium A-D Notes: (Same as: I modium) MAX adult dose is 8 caps/day Inactive 11/23/2019 [facility] atorvastatin Notes: (Same as: Lipitor) No Longer Active 11/23/2019 [facility] Famotidine 20 MG Oral Tablet N otes: (Same as: Pepcid) No Longer Active 11/23/2019 [facility] gabapentin 100 MG Oral Capsule Notes: (Same as: Neurontin) No Longer Active 11/23/2019 [facility] Omnipaque 300 injectable solution Notes: (Same as:Omnipaque 300). WASTE: F/P - Black; E - Oversi Trash Bin For oral use only No Longer Active 11/22/2019 [facility] Amlodipine 10 mg, 1 tab, Route : PO, Drug form: TAB, Daily, Dosing Weight 53.5, kg, Start date: 11/22/19 9:00:00 CLEANING TEAM MEMBER, Duration: 30 day, Stop date: 12/21/19 9:00:00 CLEANING TEAM MEMBER Inactive 11/22/2019 [facility] clopidogrel 75 mg, 1 tab, Rout e: PO, Drug form: TAB, BID, Dosing Weight 53.5, kg, Start date: 11/22/19 9:00:00 CLEANING TEAM MEMBER, Duration: 30 day, Stop date: 12/21/19 17:00:00 CLEANING TEAM MEMBER Inactive 11/22/2019 [facility] metoprolol tartrate 12.5 mg, R oute: PO, Drug form: TAB, Q12H, Dosing Weight 53.5, kg, Start date: 11/22/19 9:00:00 CLEANING TEAM MEMBER, Duration: 30 day, Stop date: 12/21/19 21:00:00 CLEANING TEAM MEMBER Inactive 11/22/2019 [facility] Aspirin 81 MG Enteric Coated Tablet Notes: Do not crush or chew. (Same As: Ecotrin) No Longer Active 11/22/2019 [facility] heparin sodium, porcine 2500 UNT/ML Injectable Solutio n Notes: porcine heparin No Longer Active 11/22/2019 [facility] heparin sodium, porcine 2500 UNT/ML Injectable Solutio n Notes: porcine heparin Inactiv e 11/21/2019 [facility] clopidogrel 75 mg oral tablet 75 mg = 1 tab, PO, BID, # 90 tab, 3 Refill(s) No Longer Active 11/21/2019 [facility] furosemide 80 mg oral tablet 8 0 mg = 1 tab, PO, BID, # 90 tab, 3 Refill(s) Active 11/21/2019 [facility] Insulin Glargine 100 UNT/ML Injectable Solution 10 unit, SUB-Q, Bedtime, # 10 mL, 0 Refill(s) Active 11/21/2019 [facility] Ceftriaxone Notes: (Same As: Sabi altman). Use with 100 mL NS and infuse over 30 min MEDICATION WASTE Product Size: 1000 mg Product Wasted: ___ mg No Longer Active 11/21/2019 [facility] Dextrose 50% Syringe (D50W) 12 .5 gm, 25 mL, Route: IVP, Drug Form: INJ, Dosing Weight 59.091, kg, PRN, PRN Blood Glucose Results, Start date: 11/21/19 14:48:00 CLEANING TEAM MEMBER, Duration: 30 day, Stop date: 12/21/19 14:47:00 CLEANING TEAM MEMBER, 0 No Longer Active 11/21/2019 [facility] Glucagon 1 mg, Route: IM, Drug form: PDR/INJ, PRN, Dosing Weight 59.091, kg, PRN Blood Glucose Results, Start date: 11/21/19 14:48:00 CLEANING TEAM MEMBER, Duration: 30 day, Stop date: 12/21/19 14:47:00 CLEANING TEAM MEMBER, 0 No Longer Active 11/21/2019 [facility] Insulin Lispro Notes: (Same as : Humalog) Roll in palms of hands gently; Do not shake vigorously. WASTE: F/P - Black; E - Municipal Trash Bin Stable for 28 days at room temperature. Expires in days from Date No Longer Active 11/21/2019 [facility] Lovenox 40 mg, Route: SUB-Q, D rug form: INJ, [id number], Dosing Weight 59.091, kg, Start date: 11/21/19 13:00:00 CLEANING TEAM MEMBER, Duration: 30 day, Stop date: 12/20/19 13:00:00 CLEANING TEAM MEMBER Inactive 11/21/2019 [facility] Dextrose 50% Syringe (D50W) 12 .5 gm, 25 mL, Route: IVP, Drug Form: INJ, Dosing Weight 59.091, kg, PRN, PRN Blood Glucose Results, Start date: 11/21/19 12:44:00 CLEANING TEAM MEMBER, Duration: 30 day, Stop date: 12/21/19 12:43:00 CLEANING TEAM MEMBER, 0 No Longer Active 11/21/2019 [facility] Glucagon 1 mg, Route: IM, Drug form: PDR/INJ, PRN, Dosing Weight 59.091, kg, PRN Blood Glucose Results, Start date: 11/21/19 12:44:00 CLEANING TEAM MEMBER, Duration: 30 day, Stop date: 12/21/19 12:43:00 CLEANING TEAM MEMBER, 0 No Longer Active 11/21/2019 [facility] Ondansetron Notes: (Same as: Tino robbins) MEDICATION WASTE Product Size: 4 mg Product Wasted: ___ mg No Longer Active 11/21/2019 [facility] Acetaminophen Notes: Do not ex ceed 4 gm/day. (Same as: Tylenol) No Longer Active 11/21/2019 [facility] Tylenol Notes: Max acetaminoph en = 4000 mg/day (4 gm/day). (Same as: Tylenol) Inactive 11/21/2019 [facility] cefepime 2 gm, Route: IVPB, ON CE, Dosing Weight 59.091, kg, Priority: STAT, Start date: 11/21/19 10:07:00 CLEANING TEAM MEMBER, Stop date: 11/21/19 10:07:00 CLEANING TEAM MEMBER, ABX Indication: ED - Suspected Sepsis Inactive 11/21/2019 [facility] Tylenol 975 mg, Route: UT, Patel g form: SUPP, ONCE, Dosing Weight 59.091, kg, Priority: STAT, Start date: 11/21/19 10:06:00 CLEANING TEAM MEMBER, Stop date: 11/21/19 10:06:00 CLEANING TEAM MEMBER Inactive 11/21/2019 [facility] Acetaminophen 300 MG / Codeine Phosphate 30 MG Oral Tablet [Tylenol with Codeine #3] 1 tab, PO, Q6H, PRN Pain, X 7 day, # 28 tab, 0 Refill(s) Active 10/27/2019 [facility] Acetaminophen 325 MG / Hydrocodone Norma trate 5 MG Oral Tablet 1 tab, Route: PO, Drug Form: TAB, Dosing Weight 57.727, kg, ONCE, STAT, Start date: 10/27/19 0:46:00 CLEANING TEAM MEMBER, Stop date: 10/27/19 0:46:00 CLEANING TEAM MEMBER Inactive 10/27/2019 [facility] Acetaminophen 325 MG / Hydrocodone Norma trate 5 MG Oral Tablet 1 tab, Route: PO, Drug Form: TAB, Dosing Weight 57.727, kg, ONCE, STAT, Start date: 10/26/19 23:13:00 CLEANING TEAM MEMBER, Stop date: 10/26/19 23:13:00 CLEANING TEAM MEMBER Inactive 10/27/2019 [facility] tizanidine Notes: (Same As: Za naflex) No Longer Active 10/27/2019 [facility] Trazodone Notes: (Same As: Edison yrel) Inactive 09/03/2019 [facility] Acetaminophen 300 MG / Codeine Phosphate 30 MG Oral Tablet [Tylenol with Codeine #3] 1 tab, PO, Q6H, PRN Pain, X 3 day, # 5 t ab, 0 Refill(s) Active 07/14/2019 [facility] Acetaminophen 650 mg, Route: P O, Drug form: TAB, ONCE, Dosing Weight 58.636, kg, Priority: STAT, Start date: 07/13/19 14:58:00 CDT, Stop date: 07/13/19 14:58:00 CDT Inactive 07/13/2019 [facility] Ibuprofen 400 MG Oral Tablet 4 00 mg, 1 tab, Route: PO, ONCE, Dosing Weight 58.636, kg, Start date: 07/13/19 14:58:00 CDT, Stop date: 07/13/19 14:58:00 CDT Inactive 07/13/2019 [facility] Docusate Notes: (Same as: Cola ce) (Do Not Crush) Inactive 04/04/2019 [facility] heparin 5,000 unit, Route: SUB -Q, Q8H, Dosing Weight 63.636, kg, Start date: 04/04/19 8:00:00 CDT, Duration: 30 day, Stop date: 05/04/19 0:00:00 CDT Inactive 04/04/2019 [facility] Dextrose 50% Syringe 25 gm, 50 mL, Route: IVP, Drug Form: INJ, Dosing Weight 63.636, kg, PRN, PRN Blood Glucose Results, Start date: 04/03/19 19:12:00 CDT, Duration: 30 day, Stop date: 05/03/19 19:11:00 CDT No Longer Active 04/04/2019 [facility] Glucagon 1 mg, Route: IM, Drug form: PDR/INJ, PRN, Dosing Weight 63.636, kg, PRN Blood Glucose Results, Start date: 04/03/19 19:12:00 CDT, Duration: 30 day, Stop date: 05/03/19 19:11:00 CDT No Longer Active 04/04/2019 [facility] Ondansetron Notes: (Same as: Tino robbins) MEDICATION WASTE Product Size: 4 mg Product Wasted: ___ mg No Longer Active 04/04/2019 [facility] Acetaminophen Notes: Do not ex ceed 4 gm/day. (Same as: Tylenol) No Longer Active 04/04/2019 [facility] Gentamicin Notes: TIME CRITICA L MEDICATION (Same as Garamycin) For adult patients only: Round to nearest 10 mg per Medical Staff approval Inactive 04/03/2019 [facility] Vancomycin 2001 mg: infuse ov er 2.5 hours For adult patients only: Round to nearest 250 mg per Medical Staff approval MEDICATION WASTE Product Size: 1000 mg Product Wasted: ___ mg Inactive 04/03/2019 [facility] Aspirin 324 mg, Route: CHEW, D rug form: CHEWTAB, ONCE, Dosing Weight 63.636, kg, Priority: STAT, Start date: 04/03/19 14:54:00 CDT, Stop date: 04/03/19 14:54:00 CDT Inactive 04/03/2019 [facility] Saline Flush 0.9% Notes: (Same as: BD Posiflush) No Longer Active 04/03/2019 [facility] Saline Flush 0.9% Notes: prese rvative free. No Longer Active 03/06/2019 [facility] Saline Flush 0.9% Notes: prese rvative free. No Longer Active 03/05/2019 [facility] Aspirin 81 MG Enteric Coated Tablet Notes: Do not crush or chew. (Same As: Ecotrin) No Longer Active 03/05/2019 [facility] insulin, isophane Notes: (Same as: Humulin N) Roll in palms of hands gently; Do not shake vigorously. WASTE: F/P - Black; E - Municipal Trash Bin Stable for 31 days at room temperature Expires in days from Date N o Longer Active 03/04/2019 [facility] Cefazolin Notes: (Same As: Daniel Hope) MEDICATION WASTE Product Size: 1000 mg Product Wasted: ___ mg No Longer Active 03/04/2019 [facility] heparin Notes: porcine heparin No Longer Active 03/04/2019 [facility] ceFAZolin + sterile water 10 mL Notes: (Same As: Daniel Salas) MEDICATION WASTE Product Size: 1000 mg Product Wasted: ___ mg Inactive 03/03/2019 [facility] Tylenol Notes: Do not exceed 4 gm/day. (Same as: Tylenol) No Longer Active 03/03/2019 [facility] Aspirin 81 MG Enteric Coated Tablet Notes: Do not crush or chew. (Same As: Ecotrin) No Longer Active 03/02/2019 [facility] Amlodipine Notes: (Same as: No rvasc) No Longer Active 03/02/2019 [facility] metoprolol extended release No ariane: (Same as: Toprol XL) Do Not Crush No Longer Active 03/02/2019 [facility] atorvastatin Notes: (Same as: Lipitor) No Longer Active 03/02/2019 [facility] vancomycin + Sodium Chloride 0.9% IV 100 mL Notes: TIME CRITICAL MEDICATION (Same As: Vancocin) For adult patients only: Round to nearest 250 mg per Medical Staff approval No Longer Active 03/01/2019 [facility] Vancomycin 1 ea, Route: MISC, ONCALL, Dosing Weight 55.636, kg, Start date: 03/01/19 15:00:00 CDT, Duration: 28 day, Stop date: 03/29/19 14:59:00 CDT, Pharmacy to dose, ABX Indication: Bacteremia Inactive 03/01/2019 [facility] Cefazolin Notes: (Same As: Daniel Hope) MEDICATION WASTE Product Size: 1000 mg Product Wasted: ___ mg No Longer Active 03/01/2019 [facility] Famotidine 20 MG Oral Tablet 2 0 mg = 1 tab, PO, Bedtime, 0 Refill(s) Active 03/01/2019 [facility] Acetaminophen 300 MG / Codeine Phosphate 30 MG Oral Tablet [Tylenol with Codeine #3] 1 tab, PO, Q6H, PRN Pain Score 6-10, 0 R efill(s) Active 03/01/2019 [facility] Furosemide 80 mg, BID, 0 Refil l(s) No Longer Active 03/01/2019 [facility] Insulin Glargine 100 UNT/ML Injectable S olution [Lantus] 20 unit, SUB-Q, Bedtime, # 10 mL, 3 Refill(s) Active 03/01/2019 [facility] metoprolol 25 mg oral tablet, extended release See Instructions, 1/2 tab po BID with food, 0 Refill(s) Active 03/01/2019 [facility] 3 ML NPH Insulin, Human 70 UNT/ML / Regu lar Insulin, Human 30 UNT/ML Prefilled Syringe [Humulin 70/30] SUB-Q, TID-Before Meals, per sliding scale, 0 Refill(s) No Longer Active 03/01/2019 [facility] Insulin Lispro Notes: (Same as : Humalog) Roll in palms of hands gently; Do not shake vigorously. WASTE: F/P - Black; E - Municipal Trash Bin Stable for 28 days at room temperature. Expires in days from Date No Longer Active 03/01/2019 [facility] Dextrose 50% Syringe 12.5 gm, 25 mL, Route: IVP, Drug Form: INJ, Dosing Weight 55.636, kg, PRN, PRN Blood Glucose Results, Start date: 03/01/19 1:47:00 CDT, Duration: 30 day, Stop date: 03/31/19 1:46:00 CDT No Longer Active 03/01/2019 [facility] Glucagon 1 mg, Route: IM, Drug form: PDR/INJ, PRN, Dosing Weight 55.636, kg, PRN Blood Glucose Results, Start date: 03/01/19 1:47:00 CDT, Duration: 30 day, Stop date: 03/31/19 1:46:00 CDT No Longer Active 03/01/2019 [facility] Vancomycin 1 ea, Route: MISC, ONCALL, Dosing Weight 56.818, kg, Start date: 02/28/19 21:00:00 CDT, Duration: 5 day, Stop date: 03/05/19 20:59:00 CDT, Pharmacy to dose, ABX Indication: Skin/Soft Tissue Infection Inactive 03/01/2019 [facility] Hydralazine Notes: (Same as: A presoline) Push over 5 minutes No Longer Active 03/01/2019 [facility] Acetaminophen 325 MG / Hydrocodone Norma trate 5 MG Oral Tablet [Jefferson 5/325] Notes: (Same as: Jefferson 325/5) Do not ex ceed 4gm/day of acetaminophen. No Longer Activ e 03/01/2019 [facility] Morphine Notes: (Same as:MORPh ine Sulfate) No Longer Active 03/01/2019 [facility] Dextrose 50% Syringe 25 gm, 50 mL, Route: IVP, Drug Form: INJ, Dosing Weight 56.818, kg, PRN, PRN Blood Glucose Results, Start date: 02/28/19 20:01:00 CDT, Duration: 30 day, Stop date: 03/30/19 20:00:00 CDT No Longer Active 03/01/2019 [facility] Ondansetron Notes: (Same as: Tino robbins) MEDICATION WASTE Product Size: 4 mg Product Wasted: ___ mg No Longer Active 03/01/2019 [facility] Glucagon 1 mg, Route: IM, Drug form: PDR/INJ, PRN, Dosing Weight 56.818, kg, PRN Blood Glucose Results, Start date: 02/28/19 20:01:00 CDT, Duration: 30 day, Stop date: 03/30/19 20:00:00 CDT No Longer Active 03/01/2019 [facility] Albuterol 0.83 MG/ML Inhalant Solution Notes: SEE RT DOCUMENTATION (Same as: Proventil) Inactive 02/28/2019 [facility] Kayexalate Notes: (sodium poly styrene sulfonate 15 gm/60 ml MERRY) Shake well before use. (Same as: Kayexalate, SPS) Inactive 02/28/2019 [facility] Insulin regular Notes: (Same a s: Humulin R, NovoLIN R) Roll in palms of hands gently; Do not shake vigorously. WASTE: F/P - Black; E - Municipal Trash Bin Stable for 31 days at room temperature Expi res in days from Date Inactive 02/28/2019 [facility] Lasix Notes: (Same as: Lasix) MEDICATION WASTE Product Size: 40 mg Product Wasted: ___ mg Inactive 02/28/2019 [facility] Zosyn Notes: (Same as: Zosyn) Dosing based on Piperacillin component MEDICATION WASTE Product Size: 3375 mg Product Wasted: ___ mg Inactive 02/28/2019 [facility] Vancomycin 2001 mg: infuse ov er 2.5 hours For adult patients only: Round to nearest 250 mg per Medical Staff approval MEDICATION WASTE Product Size: 1000 mg Product Wasted: ___ mg Inactive 02/28/2019 [facility] Fentanyl Notes: (Same as: Subl imaze) Preservative free. Inactive 02/28/2019 [facility] Sodium Chloride 0.9% (Bolus) IV 500 mL, 500 ml/hr, Infuse Over: 1 hr, Route: IV, 500, Drug form: INJ, ONCE, Priority: STAT, Dosing Weight 56.818 kg, Start date: 02/28/19 13:06:00 CDT, Stop date: 02/28/19 13:06:00 CDT Inactive 02/28/2019 [facility] Saline Flush 0.9% Notes: Same as: BD Posiflush Sterile No Longer Active 02/28/2019 [facility] Acetaminophen Notes: Do not ex ceed 4 gm/day. (Same as: Tylenol) Inactive 02/28/2019 [facility] Vantin 200 mg oral tablet 200 mg = 1 tab, PO, Q24H, X 5 day, # 5 tab, 0 Refill(s) No Longer Active 11/06/2018 [facility] heparin sodium, porcine 2500 UNT/ML Injectable Solutio n Notes: porcine heparin No Longer Active 11/06/2018 [facility] Epogen Notes: (Same as: Procri t) epoetin kathy 2000 unit/1 ml VL For dialysis use only (Epogen) WASTE: F/P - Red; E -Red MEDICATION WASTE Product Size: 2000 mg Product Wasted: ___ mg No Longer Active 11/05/2018 [facility] Merrem Notes: Same as Merrem MEDICATION WASTE Product Size: 500 mg Product Wasted: ___ mg No Longer Active 11/05/2018 [facility] gabapentin 100 MG Oral Capsule Notes: (Same as: Neurontin) No Longer Active 11/04/2018 [facility] Escitalopram Notes: (Same as: Lexapro) No Longer Active 11/04/2018 [facility] clopidogrel Notes: (Same As: P lavix) No Longer Active 11/04/2018 [facility] Insulin Lispro Route: SUB-Q, D rug form: SOLN, TID-Before Meals, Dosing Weight 51.818, kg, Start date: 11/04/18 7:30:00 CLEANING TEAM MEMBER, Duration: 30 day, Stop date: 12/03/18 16:30:00 CLEANING TEAM MEMBER No Longer Active 11/04/2018 [facility] pantoprazole Notes: Tablet viola uld not be chewed or crushed. (Same as: Protonix) N o Longer Active 11/04/2018 [facility] atorvastatin Notes: (Same as: Lipitor) No Longer Active 11/04/2018 [facility] Lopressor Notes: (Same as: Lop ressor) No Longer Active 11/04/2018 [facility] Furosemide Notes: (Same as: Tavia damon) MEDICATION WASTE Product Size: 40 mg Product Wasted: ___ mg No Longer Active 11/03/2018 [facility] Aspirin 81 MG Enteric Coated Tablet Notes: Do not crush or chew. (Same As: Ecotrin) No Longer Active 11/03/2018 [facility] gabapentin 100 MG Oral Capsule 100 mg = 1 cap, PO, Bedtime, 0 Refill(s) Active 11/03/2018 [facility] metoprolol tartrate 25 mg oral tablet 25 mg = 1 tab, PO, BID, 0 Refill(s) No Longer Active 11/03/2018 [facility] Albuterol 0.83 MG/ML Inhalant Solution Notes: SEE RT DOCUMENTATION (Same as: Proventil) No Longer Active 11/03/2018 [facility] morphine 0.5 mg/mL preservative-free inj ectable solution 2 mg, 1 mL, Route: IVP, Drug form: SOLN, Q3H, Dosing Weight 51.818, kg, PRN Pain Score 6-10, Start date: 11/02/18 18:13:00 CLEANING TEAM MEMBER, Duration: 30 day, Stop date: 12/02/18 18:12:00 CLEANING TEAM MEMBER No Longe r Active 11/03/2018 [facility] Insulin Lispro Notes: (Same as : Humalog ) Roll in palms of hands gently; Do not shake `vigorously. "Single Patient Use Only " WASTE: F/P - Black; E - Municipal Trash Bin Stable for 28 days at room temp erature. Expires in days from Date No Longer Active 11/02/2018 [facility] Glucagon 1 mg, Route: IM, Drug form: PDR/INJ, PRN, Dosing Weight 51.818, kg, PRN Blood Glucose Results, Start date: 11/02/18 14:59:00 CLEANING TEAM MEMBER, Duration: 30 day, Stop date: 12/02/18 14:58:00 CLEANING TEAM MEMBER No Longer Active 11/02/2018 [facility] Dextrose 50% Syringe 25 gm, 50 mL, Route: IVP, Drug Form: INJ, Dosing Weight 51.818, kg, PRN, PRN Blood Glucose Results, Start date: 11/02/18 14:59:00 CLEANING TEAM MEMBER, Duration: 30 day, Stop date: 12/02/18 14:58:00 CLEANING TEAM MEMBER No Longer Active 11/02/2018 [facility] Acetaminophen 325 MG / Hydrocodone Norma trate 5 MG Oral Tablet [Jefferson 5/325] Notes: (Same as: Jefferson 325/5) Do not ex ceed 4gm/day of acetaminophen. No Longer Activ e 11/02/2018 [facility] Azithromycin Notes: (Same As: Zithromax IV) No Longer Active 11/02/2018 [facility] Ceftriaxone Notes: (Same As: Sabi altman). Use with 100 mL NS and infuse over 30 min MEDICATION WASTE Product Size: 1000 mg Product Wasted: ___ mg No Longer Active 11/02/2018 [facility] Ondansetron Notes: (Same as: Tino robbins) MEDICATION WASTE Product Size: 4 mg Product Wasted: ___ mg No Longer Active 11/02/2018 [facility] Guaifenesin Notes: (Same as: Sabi obitussin) No Longer Active 11/02/2018 [facility] Acetaminophen 325 MG / Hydrocodone Norma trate 10 MG Oral Tablet [Jefferson 10/325] 1 tab, Route: PO, Drug Form: TAB, Dosing Weight 58.182, kg, ONCE, STAT, Start date: 11/01/18 22:47:00 CLEANING TEAM MEMBER, Stop date: 11/01/18 22:47:00 CLEANING TEAM MEMBER Inactive 11/02/2018 [facility] Levaquin Notes: (Same as:Levaq uin) Inactive 11/02/2018 [facility] Zofran 4 mg, Route: IVP, Drug form: INJ, ONCE, Dosing Weight 58.182, kg, Priority: STAT, Start date: 11/01/18 21:07:00 CLEANING TEAM MEMBER, Stop date: 11/01/18 21:07:00 CLEANING TEAM MEMBER Inactive 11/02/2018 [facility] Morphine 4 mg, Route: IVP, ONC E, Dosing Weight 58.182, kg, Priority: STAT, Start date: 11/01/18 21:06:00 CLEANING TEAM MEMBER, Stop date: 11/01/18 21:06:00 CLEANING TEAM MEMBER Inactive 11/02/2018 [facility] cefdinir 300 MG Oral Capsule [Omnicef] 300 mg = 1 cap, PO, Q48H, please take on HD days after HD treatment, X 14 day, # 7 cap, 0 Refill(s), Pharmacy: [facility] [id number] No Longer Active 08/06/2018 [facility] Epogen Notes: (Same as: Procri t) epoetin kathy 2000 unit/1 ml VL For dialysis use only (Epogen) WASTE: F/P - Red; E -Red MEDICATION WASTE Product Size: 2000 mg Product Wasted: ___ mg No Longer Active 08/03/2018 [facility] Potassium Chloride 40 mEq, Rou te: PO, Drug form: ERTAB, ONCE, Dosing Weight 52.002, kg, Start date: 08/03/18 16:00:00 CDT, Stop date: 08/03/18 16:00:00 CDT Inactive 08/03/2018 [facility] Potassium Chloride Notes: ([facility] as: K-Dur 20) "Do Not Crush" For patients unable to swallow tablet, dissolve in one half glass of water. Allow about 2 minutes for the tablets to disintegrate. Stir before giving to prepare slurry and administer. Please exclude Patients with feeding tube less than 14 [place] (Dobhoff, J-tube etc) and pediatric and patients. With food and full glass of water Inactive 08/03/2018 [facility] Fludrocortisone Notes: (Same a s: Florinef Acetate) Give with food. No Longer Active 08/02/2018 [facility] Rocephin + sterile water 10 mL Notes: (Same As: Rocephin). Use with 100 mL NS and infuse over 30 min MEDICATION WASTE Product Size: 1000 mg Product Wasted: ___ mg No Longer Active 07/31/2018 [facility] Epogen Notes: (Same as: Procri t) epoetin kathy 2000 unit/1 ml VL For dialysis use only (Epogen) WASTE: F/P - Red; E -Red MEDICATION WASTE Product Size: 2000 mg Product Wasted: ___ mg No Longer Active 07/30/2018 [facility] Epoetin Kathy Notes: (Same as: Procrit) epoetin kathy 3000 unit/1 ml VL. For dialysis use only WASTE: F/P - Red; E -Red MEDICATION WASTE Product Size: 3000 unit Product Wasted: ___ unit Inactive 07/30/2018 [facility] atorvastatin Notes: (Same as: Lipitor) No Longer Active 07/30/2018 [facility] Potassium Chloride Notes: ([facility] as: K-Dur 20) "Do Not Crush" For patients unable to swallow tablet, dissolve in one half glass of water. Allow about 2 minutes for the tablets to disintegrate. Stir before giving to prepare slurry and administer. Please exclude Patients with feeding tube less than 14 [place] (Dobhoff, J-tube etc) and pediatric and patients. With food and full glass of water Inactive 07/29/2018 [facility] heparin Notes: porcine heparin No Longer Active 07/29/2018 [facility] Sulfasalazine Notes: (Same As: Azulfidine) No Longer Active 07/29/2018 [facility] Promethazine Notes: (Same as: Phenergan) No Longer Active 07/29/2018 [facility] pantoprazole Notes: Tablet viola uld not be chewed or crushed. (Same as: Protonix) N o Longer Active 07/29/2018 [facility] metoprolol tartrate Notes: (Sa me as: Lopressor) No Longer Active 07/29/2018 [facility] Furosemide Notes: (Same as: La six) May cause GI upset. Give with food or milk. No Longer Active 07/29/2018 [facility] Escitalopram Notes: (Same as: Lexapro) No Longer Active 07/29/2018 [facility] clopidogrel Notes: (Same As: P lavix) No Longer Active 07/29/2018 [facility] Amlodipine Notes: (Same as: No rvasc) No Longer Active 07/29/2018 [facility] Aspirin 81 MG Enteric Coated Tablet Notes: Do not crush or chew. (Same As: Ecotrin) No Longer Active 07/29/2018 [facility] Insulin Lispro Notes: (Same as : Humalog ) Roll in palms of hands gently; Do not shake `vigorously. "Single Patient Use Only " WASTE: F/P - Black; E - Municipal Trash Bin Stable for 28 days at room temp erature. Expires in days from Date No Longer Active 07/29/2018 [facility] Glucagon 1 mg, Route: IM, Drug form: PDR/INJ, PRN, Dosing Weight 58.182, kg, PRN Blood Glucose Results, Start date: 07/29/18 5:55:00 CDT, Duration: 30 day, Stop date: 08/28/18 5:54:00 CDT No Longer Active 07/29/2018 [facility] Dextrose 50% Syringe 12.5 gm, 25 mL, Route: IVP, Drug Form: INJ, Dosing Weight 58.182, kg, PRN, PRN Blood Glucose Results, Start date: 07/29/18 5:55:00 CDT, Duration: 30 day, Stop date: 08/28/18 5:54:00 CDT No Longer Active 07/29/2018 [facility] Promethazine Hydrochloride 25 MG Oral Tablet 25 mg = 1 tab, PO, BID, 0 Refill(s) Active 07/29/2018 [facility] Streptococcus pneumoniae serotype 1 caps ular antigen diphtheria [id number] protein conjugate vaccine / Streptococcus pneumoniae serotype 14 capsular antigen diphtheria [id number] protein conjugate vaccine / Streptococcus pneumoniae serotype 18C capsular antigen d 0.5 mL, Route: IM, ONCALL, Start date: 07/29/18 0:45:39 CDT, Stop date: 08/28/18 0:40:39 CDT Inactive 07/29/2018 [facility] Acetaminophen Notes: Do not ex ceed 4 gm/day. (Same as: Tylenol) No Longer Active 07/29/2018 [facility] Ondansetron Notes: (Same as: Tino robbins) MEDICATION WASTE Product Size: 4 mg Product Wasted: ___ mg No Longer Active 07/29/2018 [facility] NS (Bolus) IV 500 mL, 500 ml/h r, Infuse Over: 1 hr, Route: IV, 500, Drug form: INJ, ONCE, Priority: STAT, Dosing Weight 58.1 kg, Start date: 07/28/18 21:02:00 CDT, Stop date: 07/28/18 21:02:00 CDT Inactive 07/29/2018 [facility] Insulin Lispro 100 UNT/ML Injectable Solution Blood Sugar Control, SUB-Q, TID-Before Meals, Check blood sugar before breakfast, lunch, and dinner, and inject correction doses: Inject 1 unit if Sugar 150-199, Inject 2 units if Sugar 200-249, Inject 3 units if Sugar 250-299, Inject 4 units if Sugar... Active 05/05/2018 [facility] epoetin kathy 3000 units/mL preservative- free injectable solution 3,000 unit = 1 mL, SUB-Q, Q-Sa, 0 Refill(s) Active 05/05/2018 [facility] metoprolol tartrate 50 mg oral tablet 50 mg = 1 tab, PO, BID, # 60 tab, 1 Refill(s) Active 05/05/2018 [facility] Epogen Notes: (Same as: Procri t) epoetin kathy 3000 unit/1 ml VL. For dialysis use only WASTE: F/P - Red; E -Red MEDICATION WASTE Product Size: 3000 unit Product Wasted: ___ unit No Longer Active 05/04/2018 [facility] Epogen Notes: (Same as: Procri t) epoetin kathy 3000 unit/1 ml VL. For dialysis use only WASTE: F/P - Red; E -Red MEDICATION WASTE Product Size: 3000 unit Product Wasted: ___ unit Inactive 05/03/2018 [facility] Hydralazine Notes: (Same as: A presoline) Push over 5 minutes Inactive 05/02/2018 [facility] Bumex Notes: (Same As: Bumex) No Longer Active 05/01/2018 [facility] Amlodipine Notes: (Same as: No rvasc) No Longer Active 04/30/2018 [facility] Aspirin 81 MG Enteric Coated Tablet 81 mg, 1 tab, Route: PO, Drug form: ECTAB, Daily, Dosing Weight 58.1, kg, Start date: 04/30/18 9:00:00 CDT, Duration: 30 day, Stop date: 05/29/18 9:00:00 CDT No Longer Active 04/30/2018 [facility] clopidogrel Notes: (Same As: P lavix) No Longer Active 04/30/2018 [facility] Escitalopram Notes: (Same as: Lexapro) No Longer Active 04/30/2018 [facility] Lasix Notes: (Same as: Lasix) MEDICATION WASTE Product Size: 40 mg Product Wasted: ___ mg Inactive 04/30/2018 [facility] atorvastatin Notes: (Same as: Lipitor) No Longer Active 04/30/2018 [facility] metoprolol tartrate Notes: (Sa me as: Lopressor) No Longer Active 04/30/2018 [facility] Morphine Notes: (Same as:MORPh ine Sulfate) Inactive 04/29/2018 [facility] Heparin 30 unit/kg Bolus (Heparin Dosing Weight) Route: IVP, PRN, 1,500 unit, 1.5 mL, Drug form: INJ, PRN, Heparin Protocol, Start date: 04/29/18 18:06:00 CDT Stop date: 05/29/18 18:05:00 CDT, 30 day No Longer Active 04/29/2018 [facility] Heparin 60 unit/kg Bolus (Heparin Dosing Weight) Route: IVP, PRN, 3,000 unit, 3 mL, Drug form: INJ, PRN, Heparin Protocol, Start date: 04/29/18 18:06:00 CDT Stop date: 05/29/18 18:05:00 CDT, 30 day No Longer Active 04/29/2018 [facility] heparin additive 25,000 unit [12 unit/kg /hr] + Premix Diluent Dextrose 5% 500 mL 500 mL, Rate: 12.12 ml/hr, Infuse over: 41.3 hr, Route: IV, Dosing Weight 50.5 kg, Total Volume: 500 mL, Start date: 04/29/18 18:06:00 CDT, Duration: 30 day, Stop date: 05/29/18 18:05:00 CDT, 1.48, m2 No Longer Active 04/29/2018 [facility] Morphine 2 mg, Route: IVP, ONC E, Dosing Weight 58.1, kg, Start date: 04/29/18 17:57:00 CDT, Stop date: 04/29/18 17:57:00 CDT Inactive 04/29/2018 [facility] Nitroglycerin 0.4 MG Sublingual Tablet Notes: (Same as:Nitroquick, Nitrostat) "Do Not Crush" Sublingual tablet No Longer Active 04/29/2018 [facility] Morphine Notes: (Same as:MORPh ine Sulfate) No Longer Active 04/29/2018 [facility] Sulfasalazine Notes: (Same As: Azulfidine) No Longer Active 04/29/2018 [facility] pantoprazole Notes: Tablet viola uld not be chewed or crushed. (Same as: Protonix) N o Longer Active 04/29/2018 [facility] Lasix Notes: (Same as: Lasix) MEDICATION WASTE Product Size: 40 mg Product Wasted: ___ mg Inactive 04/29/2018 [facility] Saline Flush 0.9% Notes: (Same as: BD Posiflush) No Longer Active 04/29/2018 [facility] Aspirin 81 MG Enteric Coated Tablet Notes: Do not crush or chew. (Same As: Ecotrin) No Longer Active 04/29/2018 [facility] heparin Notes: porcine heparin Inactive 04/29/2018 [facility] Insulin regular See Instructio ns, SUB-Q TID-Before Meals, 0 Refill(s) Active 04/29/2018 [facility] Insulin Glargine 100 UNT/ML Injectable S olution [Lantus] 20 unit, SUB-Q, Bedtime, # 10 mL, 3 Refill(s) No Longer Active 04/29/2018 [facility] NIFEdipine 60 mg oral tablet, extended release Notes: (Same as: Adalat CC, Procardia XL) Give on empty stomach. Take 1 hour before or 2 hours after meal; "Avoid grapefruit and grapefruit juice". Do not crush Inactive 04/29/2018 [facility] Furosemide 80 mg, BID, 0 Refil l(s) Active 04/29/2018 [facility] Dextrose 50% Syringe 25 gm, 50 mL, Route: IVP, Drug Form: INJ, Dosing Weight 58.1, kg, ONCE, Start date: 04/29/18 0:27:00 CDT, Stop date: 04/29/18 0:27:00 CDT Inactive 04/29/2018 [facility] Nitroglycerin 0.02 MG/MG Topical Ointment Notes: 1 gram is approximately 1 inch of nitroglycerin ointment (20 mg NTG per gram) (Same as:Nitro-Bid) Inactive 04/29/2018 [facility] Albuterol 0.833 MG/ML / Ipratropium Brom sah 0.167 MG/ML Inhalant Solution [DuoNeb] Notes: (Same as: Duoneb) No Longer Active 04/29/2018 [facility] Insulin Lispro Notes: (Same as : Humalog ) Roll in palms of hands gently; Do not shake `vigorously. "Single Patient Use Only " WASTE: F/P - Black; E - Oversi Trash Bin Stable for 28 days at room temp erature. Expires in days from Date No Longer Active 04/29/2018 [facility] Glucagon 1 mg, Route: IM, Drug form: PDR/INJ, PRN, Dosing Weight 58.1, kg, PRN Blood Glucose Results, Start date: 04/28/18 23:47:00 CDT, Duration: 30 day, Stop date: 05/28/18 23:46:00 CDT No Longer Active 04/29/2018 [facility] Dextrose 50% Syringe 25 gm, 50 mL, Route: IVP, Drug Form: INJ, Dosing Weight 58.1, kg, PRN, PRN Blood Glucose Results, Start date: 04/28/18 23:47:00 CDT, Duration: 30 day, Stop date: 05/28/18 23:46:00 CDT No Longer Active 04/29/2018 [facility] Morphine Notes: (Same as:MORPh ine Sulfate) No Longer Active 04/29/2018 [facility] Saline Flush 0.9% Notes: (Same as: BD Posiflush) No Longer Active 04/29/2018 [facility] Nitroglycerin Notes: (Same as: Nitroquick, Nitrostat) "Do Not Crush" Sublingual tablet No Longer Active 04/29/2018 [facility] Ondansetron Notes: (Same as: Z ofran) No Longer Active 04/29/2018 [facility] Nitroglycerin Notes: (Same as: Nitroquick, Nitrostat) "Do Not Crush" Sublingual tablet No Longer Active 04/29/2018 [facility] Zofran ODT Notes: (Same as: Zo josé miguel ODT) Inactive 04/29/2018 [facility] Morphine Notes: Preservative f ree. (Same as: Morphine Sulfate-PF) Inactive 04/29/2018 [facility] GI cocktail Notes: [place]. [place] = antacid with simethicone 22.5 mL - lidocaine viscous 7.5 mL Inactive 04/29/2018 [facility] Lasix Notes: (Same as: Lasix) MEDICATION WASTE Product Size: 40 mg Product Wasted: ___ mg Inactive 04/29/2018 [facility] Aspirin Notes: Take with food. Inactive 04/29/2018 [facility] Saline Flush 0.9% Notes: Same as: BD Posiflush Sterile Inactive 04/28/2018 [facility] pantoprazole 40 mg oral enteric coated tablet 40 mg = 1 tab, PO, Daily, # 30 tab, 0 Refill(s) Active 04/01/2018 [facility] atorvastatin 40 mg oral tablet 40 mg = 1 tab, PO, Bedtime, # 30 tab, 0 Refill(s) Active 04/01/2018 [facility] Aspirin 81 MG Enteric Coated Tablet 81 mg = 1 tab, PO, Daily, # 30 tab, 0 Refill(s) Active 04/01/2018 [facility] clopidogrel 75 mg oral tablet 75 mg = 1 tab, PO, Daily, # 30 tab, 0 Refill(s) Active 04/01/2018 [facility] amLODIPine 10 mg oral tablet 1 0 mg = 1 tab, PO, Daily, # 30 tab, 0 Refill(s) Active 04/01/2018 [facility] sulfaSALAzine 500 mg oral tablet 500 mg = 1 tab, PO, BID, # 60 tab, 0 Refill(s) Active 04/01/2018 [facility] metoprolol tartrate 25 mg oral tablet 25 mg = 1 tab, PO, Q12H, # 60 tab, 0 Refill(s) Active 04/01/2018 [facility] escitalopram 10 mg oral tablet 10 mg = 1 tab, PO, Daily, # 30 tab, 0 Refill(s) Active 04/01/2018 [facility] Physical Therapy See Instructi ons, MISC, ONCALL, Evaluate and Treat 2-3 times per week for 4-6 weeks, # 1 ea, 0 Refill(s) Active 04/01/2018 [facility] Occupational Therapy See Instr uctions, MISC, ONCALL, Evaluate and Treat 2-3 times per week for 4-6 weeks, # 1 unit, 0 Refill(s) Active 04/01/2018 [facility] Amlodipine Notes: (Same as: No rvasc) Inactive 04/01/2018 [facility] Norvasc Notes: (Same as: Norva sc) No Longer Active 03/30/2018 [facility] Insulin Glargine 100 UNT/ML Injectable Solution Notes: (Same as: Lantus) Do not hold insulin without contacting prescriber WASTE: F/P - Black; E - Municipal Trash Bin "single patient use only" No Longer Active 03/29/2018 [facility] heparin Notes: porcine heparin No Longer Active 03/28/2018 [facility] Acetaminophen 325 MG / Hydrocodone Norma trate 10 MG Oral Tablet [Jefferson 10/325] Notes: Do not exceed 4gm/day of acetamin ophen. (Same as: Jefferson 325/10) No Longer Active 03/27/2018 [facility] Acetaminophen 325 MG / Hydrocodone Norma trate 5 MG Oral Tablet [Jefferson 5/325] Notes: (Same as: Jefferson 325/5) Do not ex ceed 4gm/day of acetaminophen. No Longer Activ e 03/27/2018 [facility] Insulin Glargine 100 UNT/ML Injectable Solution Notes: (Same as: Lantus) Do not hold insulin without contacting prescriber WASTE: F/P - Black; E - Municipal Trash Bin "single patient use only" No Longer Active 03/27/2018 [facility] Acetaminophen 325 MG / Hydrocodone Norma trate 5 MG Oral Tablet [Jefferson 5/325] Notes: (Same as: Jefferson 325/5) Do not ex ceed 4gm/day of acetaminophen. No Longer Activ e 03/27/2018 [facility] Insulin Glargine 100 UNT/ML Injectable Solution 10 unit, Route: SUB-Q, Drug form: SOLN, BID, Dosing Weight 56.818, kg, Start date: 03/26/18 17:00:00 CDT, Duration: 30 day, Stop date: 04/25/18 9:00:00 CDT Inactive 03/26/2018 [facility] Epogen (ESRD) Notes: (Same as: Procrit) epoetin kathy 53873 unit/1 ml VL. For dialysis use only. (Procrit) WASTE: F/P - Red; E -Red MEDICATION WASTE Product Size: 32245 unit Product Wasted: ___ unit No Longer Active 03/23/2018 [facility] Insulin Glargine 100 UNT/ML Injectable Solution Notes: (Same as: Lantus) Do not hold insulin without contacting prescriber WASTE: F/P - Black; E - Municipal Trash Bin "single patient use only" No Longer Active 03/23/2018 [facility] Sulfasalazine Notes: (Same As: Azulfidine) No Longer Active 03/22/2018 [facility] Lexapro Notes: (Same as: Lexap ro) No Longer Active 03/22/2018 [facility] Protonix Notes: Tablet should not be chewed or crushed. (Same as: Protonix) No Longer Active 03/22/2018 [facility] aspirin 81 mg tablet, enteric coated Notes: Do not crush or chew. (Same As: Ecotrin) No Longer Active 03/22/2018 [facility] Escitalopram 10 mg, Route: PO, Drug form: TAB, Daily, Dosing Weight 56.818, kg, Start date: 03/22/18 9:00:00 CDT, Duration: 30 day, Stop date: 04/20/18 9:00:00 CDT No Longer Active 03/22/2018 [facility] Insulin Glargine 100 UNT/ML Injectable Solution Notes: (Same as: Lantus) Do not hold insulin without contacting prescriber WASTE: F/P - Black; E - Municipal Trash Bin "single patient use only" Inactive 03/22/2018 [facility] Compression Stockings 1 ea, Ro kay: TOP, Dosing Weight 61.7, kg, Daily, Start date: 03/22/18 9:00:00 CDT No Longer Active 03/22/2018 [facility] Plavix Notes: (Same As: Plavix) No Longer Active 03/22/2018 [facility] please give midodrine before dialysis on dialysis days please give midodrine before dialysis on dialysis days, reminder, Drug form: MISC, Route: MISC, Daily, 03/22/18 6:00:00 CDT, Duration: 30 day, Stop date: 04/20/18 6:00:00 CDT No Longer Active 03/22/2018 [facility] Lipitor Notes: (Same as: Lipit or) No Longer Active 03/22/2018 [facility] Lopressor Notes: (Same as: Lop ressor) No Longer Active 03/22/2018 [facility] Lisinopril Notes: (Same as: Pr inivil, Zestril) No Longer Active 03/22/2018 [facility] nitroglycerin 0.4 mg sublingual tablet Notes: (Same as:Nitroquick, Nitrostat) "Do Not Crush" Sublingual tablet No Longer Active 03/21/2018 [facility] Reglan Notes: (Same as: Reglan ) Take 30 min before meals No Longer Active 03/21/2018 [facility] melatonin Notes: (Same as: Priti atonin) No Longer Active 03/21/2018 [facility] Humalog Notes: (Same as: Humal og ) Roll in palms of hands gently; Do not shake `vigorously. "Single Patient Use Only " WASTE: F/P - Black; E - Municipal Trash Bin Stable for 28 days at room temperature. Expires in days from Date No Longer Active 03/21/2018 [facility] Humalog Notes: (Same as: Humal og ) Roll in palms of hands gently; Do not shake `vigorously. "Single Patient Use Only " WASTE: F/P - Black; E - Municipal Trash Bin Stable for 28 days at room temperature. Expires in days from Date No Longer Active 03/21/2018 [facility] Humalog Notes: (Same as: Humal og ) Roll in palms of hands gently; Do not shake `vigorously. "Single Patient Use Only " WASTE: F/P - Black; E - Municipal Trash Bin Stable for 28 days at room temperature. Expires in days from Date No Longer Active 03/21/2018 [facility] glucagon 1 mg, Route: IM, Drug form: PDR/INJ, PRN, Dosing Weight 68.6, kg, PRN Blood Glucose Results, Start date: 03/21/18 16:09:00 CDT, Duration: 30 day, Stop date: 04/20/18 16:08:00 CDT No Longer Active 03/21/2018 [facility] Dextrose 50% Syringe 25 gm, 50 mL, Route: IVP, Drug Form: INJ, Dosing Weight 68.6, kg, PRN, PRN Blood Glucose Results, Start date: 03/21/18 16:09:00 CDT, Duration: 30 day, Stop date: 04/20/18 16:08:00 CDT No Longer Active 03/21/2018 [facility] Tylenol Notes: Do not exceed 4 gm/day. (Same as: Tylenol) No Longer Active 03/21/2018 [facility] ProAmatine Notes: (Same as:Pro amatine) No Longer Active 03/21/2018 [facility] Trazodone Notes: (Same As: Edison yrel) No Longer Active 03/21/2018 [facility] midodrine 5 mg oral tablet 10 mg = 2 tab, PO, Before Dialysis, PRN Other -See Comment | before dialysis, 0 Refill(s) On Hold 03/21/2018 [facility] Sodium Chloride 0.9% (titrate) 250 mL 250 mL, Rate: To prime line and flush remaining blood products., Dosing Weight 68.6, kg, Route: IV, Total Volume: 250, Priority: Routine, Start Date: 03/20/18 10:11:00 CDT, Duration: 1 day, Stop date: 03/21/18 10:10:00 CDT, Replace Every: 24 hr No Longer Active 03/20/2018 [facility] Epogen 10,000 unit, Route: IVP , Q-M-W-F, Dosing Weight 68.6, kg, Start date: 03/20/18 9:00:00 CDT, Duration: 30 day, Stop date: 04/17/18 9:00:00 CDT No Longer Active 03/20/2018 [facility] Acetaminophen 325 MG / Hydrocodone Norma trate 5 MG Oral Tablet Notes: (Same as: Jefferson 325/5) Do not ex ceed 4gm/day of acetaminophen. No Longer Active 03/19/2018 [facility] Hydromorphone Notes: (Same as: Dilaudid) No Longer Active 03/19/2018 [facility] Acetaminophen 325 MG / Hydrocodone Norma trate 10 MG Oral Tablet Notes: Do not exceed 4gm/day of acetamin ophen. (Same as: Jefferson 325/10) No Longer Active 03/19/2018 [facility] Sodium Chloride 0.9% (Bolus) IV 500 mL, Route: IV, ONCE, Dosing Weight 68.6 kg, Start date: 03/19/18 14:39:00 CDT, Stop date: 03/19/18 14:39:00 CDT, Bolus Inactive 03/19/2018 [facility] metoclopramide (ANES) Route: I V, Drug form: INJ, ONCE, Stop date: 03/19/18 13:54:00 CDT Inactive 03/19/2018 [facility] lidocaine (ANES) Route: IV, Dr ug form: INJ, ONCE, Stop date: 03/19/18 13:49:00 CDT Inactive 03/19/2018 [facility] propofol (ANES) Route: IV, Patel g form: INJ, ONCE, Stop date: 03/19/18 13:49:00 CDT Inactive 03/19/2018 [facility] ceFAZolin (ANES) 1000 mg Route : IV, Drug form: INJ, Start date: 03/19/18 13:19:00 CDT, Stop date: 03/19/18 14:19:00 CDT Inactive 03/19/2018 [facility] vancomycin (ANES) 1000 mg Rout e: IV, Drug form: INJ, Start date: 03/19/18 13:16:00 CDT, Stop date: 03/19/18 14:16:00 CDT Inactive 03/19/2018 [facility] Sodium Chloride 0.9% IV (ANES) 500 mL Route: IV, Total Volume: 500, Start date: 03/19/18 13:07:00 CDT, Stop date: 03/19/18 14:07:00 CDT Inactive 03/19/2018 [facility] Acetaminophen 325 MG / Hydrocodone Norma trate 10 MG Oral Tablet [Jefferson 10/325] Notes: Do not exceed 4gm/day of acetamin ophen. (Same as: Jefferson 325/10) No Longer Active 03/19/2018 [facility] atorvastatin 40 mg oral tablet 40 mg = 1 tab, PO, Bedtime, # 30 tab, 0 Refill(s), Pharmacy: [facility] [id number] On Hold 03/18/2018 [facility] Aspirin 81 MG Enteric Coated Tablet 81 mg = 1 tab, PO, Daily, # 30 tab, 3 Refill(s), Pharmacy: [facility] [id number] On Hold 03/18/2018 [facility] lisinopril 2.5 mg oral tablet 2.5 mg = 1 tab, PO, Daily, # 30 tab, 0 Refill(s), Pharmacy: [facility] [id number] On Hold 03/18/2018 [facility] metoprolol tartrate 25 mg oral tablet 12.5 mg = 0.5 tab, PO, Q12H, # 30 tab, 0 Refill(s), Pharmacy: [facility] [id number] On Hold 03/18/2018 [facility] clopidogrel 75 mg oral tablet 75 mg = 1 tab, PO, Daily, # 30 tab, 1 Refill(s), Pharmacy: [facility] [id number] On Hold 03/18/2018 [facility] Sodium Chloride 0.9% (Bolus) IV 500 mL, 500 ml/hr, Infuse Over: 1 hr, Route: IV, ONCE, Priority: STAT, Dosing Weight 68.6 kg, Start date: 03/17/18 19:43:00 CDT, Stop date: 03/17/18 19:43:00 CDT Inactive 03/18/2018 [facility] Epogen Notes: (Same as: Procri t) epoetin kathy 89864 unit/1 ml VL. For dialysis use only. (Procrit) WASTE: F/P - Red; E -Red MEDICATION WASTE Product Size: 95229 unit Product Wasted: ___ unit No Longer Active 03/16/2018 [facility] please give midodrine before dialysis on dialysis days please give midodrine before dialysis on dialysis days, reminder, Drug form: MISC, Route: MISC, Daily, 03/16/18 6:00:00 CDT, Duration: 30 day, Stop date: 04/14/18 6:00:00 CDT No Longer Active 03/16/2018 [facility] Insulin, Aspart, Human 10 unit , Route: SUB-Q, ONCE, Dosing Weight 68.6, kg, Start date: 03/15/18 21:02:00 CDT, Stop date: 03/15/18 21:02:00 CDT Inactive 03/16/2018 [facility] Insulin Lispro Notes: (Same as : Humalog ) Roll in palms of hands gently; Do not shake `vigorously. "Single Patient Use Only " WASTE: F/P - Black; E - Municipal Trash Bin Stable for 28 days at room temp erature. Expires in days from Date No Longer Active 03/16/2018 [facility] Midodrine Notes: (Same as:Proa matine) No Longer Active 03/15/2018 [facility] sodium bicarbonate 8.4% Notes: (sodium bicarb 8.4% (1 mEq/ml) 50 ml syringe) Inactiv e 03/12/2018 [facility] albumin human 25% intravenous solution 25 gm, Route: IVPB, ONCE, Dosing Weight 68.6, kg, Start date: 03/12/18 13:21:00 CDT, Stop date: 03/12/18 13:21:00 CDT Inactive 03/12/2018 [facility] sodium bicarbonate 8.4% Notes: (sodium bicarb 8.4% (1 mEq/ml) 50 ml syringe) Inactiv e 03/12/2018 [facility] Norepinephrine Notes: Same as: Levophed. Administer by either central venous catheter or peripherally-inserted central catheter (PICC) line. Concentration: 0.032 mg / mL No Longer Active 03/11/2018 [facility] albumin human Notes: LOT#: ___ Mfg: WASTE: F/P - Red; E -Red (Same as: Albuminar) "blood product derivative" Inactive 03/11/2018 [facility] albumin human Notes: LOT#: ___ Mfg: WASTE: F/P - Red; E -Red (Same as: Albuminar) "blood product derivative" No Longer Active 03/11/2018 [facility] albumin human Notes: Lot #: __ Mfg: (Same as: Plasbumin-25) "blood product derivative" WASTE: F/P - Red; E -Red MEDICATION WASTE Product Size: 25 gm Product Wasted: ___ gm Inactive 03/11/2018 [facility] Insulin Lispro Notes: (Same as : Humalog ) Roll in palms of hands gently; Do not shake `vigorously. "Single Patient Use Only " WASTE: F/P - Black; E - Municipal Trash Bin Stable for 28 days at room temp erature. Expires in days from Date No Longer Active 03/11/2018 [facility] Dextrose 50% Syringe 12.5 gm, 25 mL, Route: IVP, Drug Form: INJ, Dosing Weight 68.6, kg, PRN, PRN Blood Glucose Results, Start date: 03/10/18 20:16:00 CDT, Duration: 30 day, Stop date: 04/09/18 20:15:00 CDT No Longer Active 03/11/2018 [facility] Glucagon 1 mg, Route: IM, Drug form: PDR/INJ, PRN, Dosing Weight 68.6, kg, PRN Blood Glucose Results, Start date: 03/10/18 20:16:00 CDT, Duration: 30 day, Stop date: 04/09/18 20:15:00 CDT No Longer Active 03/11/2018 [facility] bumetanide 10 mg + Sodium Chloride 0.9% (titrate) 60 m L Notes: (Same As: Bumex) No Longer Active 03/11/2018 [facility] albumin human Notes: LOT#: ___ Mfg: WASTE: F/P - Red; E -Red (Same as: Albuminar) "blood product derivative" Inactive 03/10/2018 [facility] albumin human Notes: Lot #: __ Mfg: (Same as: Plasbumin-25) "blood product derivative" WASTE: F/P - Red; E -Red MEDICATION WASTE Product Size: 25 gm Product Wasted: ___ gm Inactive 03/09/2018 [facility] Furosemide 100 mg, Route: IV, ONCE, Dosing Weight 56.8, kg, Priority: NOW, Start date: 03/09/18 7:52:00 CDT, Stop date: 03/09/18 7:52:00 CDT Inactive 03/09/2018 [facility] Lasix Notes: (Same as: Lasix) MEDICATION WASTE Product Size: 100 mg Product Wasted: ___ mg Inactive 03/09/2018 [facility] albumin human Notes: LOT#: ___ Mfg: WASTE: F/P - Red; E -Red (Same as: Albuminar) "blood product derivative" No Longer Active 03/09/2018 [facility] furosemide 100 mg + Sodium Chloride 0.9% IV 90 mL Notes: (Same as: Lasix) MEDICATION WASTE Product Size: 100 mg Product Wasted: ___ mg No Longer Active 03/08/2018 [facility] Lasix Notes: (Same as: Lasix) MEDICATION WASTE Product Size: 100 mg Product Wasted: ___ mg Inactive 03/08/2018 [facility] Lasix Notes: (Same as: Lasix) MEDICATION WASTE Product Size: 40 mg Product Wasted: ___ mg Inactive 03/08/2018 [facility] Lasix Notes: (Same as: Lasix) MEDICATION WASTE Product Size: 40 mg Product Wasted: ___ mg Inactive 03/07/2018 [facility] albumin human 25% intravenous solution Notes: LOT#: Mfg: WASTE: F/P - Red; E -Red (Same as: Albuminar) "blood product derivative" No Longer Active 03/07/2018 [facility] docusate sodium 100 mg oral capsule Notes: (Same as: Colace) (Do Not Crush) No Longer Active 03/07/2018 [facility] albumin human 25% intravenous solution Notes: Lot #: Mfg: (Same as: Plasbumin-25) "blood product derivative" WASTE: F/P - Red; E -Red MEDICATION WASTE Product Size: 25 gm Product Wasted: ___ gm Inactive 03/06/2018 [facility] Lasix Notes: (Same as: Lasix) MEDICATION WASTE Product Size: 40 mg Product Wasted: ___ mg Inactive 03/06/2018 [facility] sodium bicarbonate 8.4% Notes: (sodium bicarb 8.4% (1 mEq/ml) 50 ml syringe) Inactiv e 03/06/2018 [facility] Plavix Notes: (Same As: Plavix) No Longer Active 03/06/2018 [facility] Vancomycin 2001 mg: infuse ov er 2.5 hours For adult patients only: Round to nearest 250 mg per Medical Staff approval MEDICATION WASTE Product Size: 1000 mg Product Wasted: 0mg Inactive 03/06/2018 [facility] chlorhexidine gluconate 40 MG/ML Medicated Liquid Soap Notes: (Same As: Hibiclens) No Longer Active 03/06/2018 [facility] Lasix Notes: (Same as: Lasix) MEDICATION WASTE Product Size: 40 mg Product Wasted: ___ mg Inactive 03/06/2018 [facility] Ancef + sterile water 20 mL No ariane: (Same As: Ancef, Kefzol) MEDICATION WASTE Product Size: 1000 mg Product Wasted: _0__ mg No Longer Active 03/06/2018 [facility] Dopamine Notes: (Same as: Intr opin) Administer by either central venous catheter or peripherally-inserted central catheter (PICC) line. Final conc = 3.2 mg/ml. Premix solution. No Longer Active 03/06/2018 [facility] pantoprazole Notes: (Same as: Protonix) Inactive 03/05/2018 [facility] Sodium Chloride 0.9% IV 250 mL 250 mL, Rate: See order comments, Route: IV, Dosing Weight 56.8 kg, Total Volume: 250, Start date: 03/05/18 15:09:00 CDT, Duration: 30 day, Stop date: 04/04/18 15:08:00 CDT, 1.57, m2 No Longer Active 03/05/2018 [facility] Sodium Chloride 0.9% (Bolus) IV Route: IV, PRN, Dosing Weight 56.8 kg, Start date: 03/05/18 14:50:00 CDT, Duration: 30 day, Stop date: 04/04/18 14:49:00 CDT, PRN See Nurse's Notes Inactive 03/05/2018 [facility] 1/2 NS 1,000 mL 1,000 mL, Rate : 50 ml/hr, Infuse over: 20 hr, Route: IV, Dosing Weight 56.8 kg, Total Volume: 1,000, Start date: 03/05/18 14:48:00 CDT, Duration: 30 day, Stop date: 04/04/18 14:47:00 CDT, 1.57, m2 No Longer Active 03/05/2018 [facility] Stimate (ANES) Route: IV, Drug form: INJ, ONCE, Stop date: 03/05/18 13:30:00 CDT Inactive 03/05/2018 [facility] protamine (ANES) 10 mg Route: IV, Drug form: INJ, Start date: 03/05/18 12:34:00 CDT, Stop date: 03/05/18 13:34:00 CDT Inactive 03/05/2018 [facility] ocular lubricant Notes: (Same as: Lacri-Lube, Duratears Naturale, Artificial Tears, and Tears Again ) No Longer Active 03/05/2018 [facility] heparin (ANES) Route: IV, Drug form: INJ, ONCE, Stop date: 03/05/18 10:45:00 CDT Inactive 03/05/2018 [facility] tranexamic acid (ANES) Route: IV, Drug form: INJ, ONCE, Stop date: 03/05/18 10:45:00 CDT Inactive 03/05/2018 [facility] vancomycin (ANES) Route: IV, D rug form: INJ, ONCE, Stop date: 03/05/18 9:43:00 CDT Inactive 03/05/2018 [facility] midazolam (ANES) Route: IV, Dr ug form: SOLN, ONCE, Stop date: 03/05/18 9:43:00 CDT Inactive 03/05/2018 [facility] ceFAZolin (ANES) Route: IV, Dr ug form: INJ, ONCE, Stop date: 03/05/18 9:23:00 CDT Inactive 03/05/2018 [facility] propofol (ANES) Route: IV, Patel g form: INJ, ONCE, Stop date: 03/05/18 9:18:00 CDT Inactive 03/05/2018 [facility] lidocaine (ANES) Route: IV, Dr ug form: INJ, ONCE, Stop date: 03/05/18 9:18:00 CDT Inactive 03/05/2018 [facility] rocuronium (ANES) Route: IV, D rug form: INJ, ONCE, Stop date: 03/05/18 9:18:00 CDT Inactive 03/05/2018 [facility] fentaNYL (ANES) Route: IV, Patel g form: INJ, ONCE, Stop date: 03/05/18 9:18:00 CDT Inactive 03/05/2018 [facility] tranexamic acid (ANES) 100 mg Route: IV, Drug form: INJ, Start date: 03/05/18 9:00:00 CDT, Stop date: 03/05/18 10:00:00 CDT Inactive 03/05/2018 [facility] Famotidine Notes: (Same as: Pe pcid) Can be dilute in 5- 10cc NS IVP: Slow IV push over at least 2 minutes. Inactive 03/05/2018 [facility] chlorhexidine gluconate 1.2 MG/ML Mouthwash Notes: (Same As: Peridex) No Longer Active 03/05/2018 [facility] Lopressor Notes: (Same as: Lop ressor) No Longer Active 03/05/2018 [facility] Maxipime 1 gm, Route: IVPB, AB XQ12H, Dosing Weight 56.8, kg, (CrCl 30 - 49 ml/min), Start date: 03/05/18 9:00:00 CDT, Duration: 2 doses or times, Stop date: 03/05/18 21:00:00 CDT, ABX Indication: Surgical Prophylaxis Inactive 03/05/2018 [facility] Docusate Notes: (Same as: Cola ce) (Do Not Crush) Inactive 03/05/2018 [facility] Mupirocin 0.02 MG/MG Topical Ointment 1 appl, Route: NASAL, BID, Drug form: OINT, Start date: 03/05/18 9:00:00 CDT, Stop date: 03/09/18 17:00:00 CDT No Longe r Active 03/05/2018 [facility] clopidogrel Notes: (Same As: P lavix) Inactive 03/05/2018 [facility] Vancomycin 852 mg, Route: IVPB , Drug form: INJ, [id number], Dosing Weight 56.8, kg, Time Critical Medication, Start date: 03/05/18 9:00:00 CDT, Duration: 2 doses or times, Stop date: 03/05/18 21:00:00 CDT, ABX Ind ication: Surgical Prophylaxis Inactive 03/05/2018 [facility] chlorhexidine gluconate 1.2 MG/ML Mouthwash Notes: (Same As: Peridex) No Longer Active 03/05/2018 [facility] Magnesium Sulfate Notes: WASTE : F/P - Sink; E - Municipal Trash Bin No Longer Active 03/05/2018 [facility] Potassium Chloride Notes: (Isaiah e as: Potassium Chloride) No Longer Active 03/05/2018 [facility] Dextrose 50% Syringe 12.5 gm, 25 mL, Route: IVP, Drug Form: INJ, Dosing Weight 56.8, kg, PRN, PRN Blood Glucose Results, Start date: 03/05/18 8:49:00 CDT, Duration: 30 day, Stop date: 04/04/18 8:48:00 CDT No Longer Active 03/05/2018 [facility] Insulin regular 100 unit + Sodium Chlori de 0.9% (titrate) 99 mL Notes: (Same as: Humulin R and NovoLIN R ) WASTE: F/P - Black; E - Municipal Trash Bin (Do not shake) No Longer Active 03/05/2018 [facility] Norepinephrine Notes: Same as: Levophed. Administer by either central venous catheter or peripherally-inserted central catheter (PICC) line. Concentration: 0.032 mg / mL No Longer Active 03/05/2018 [facility] Epinephrine Notes: (Same as: A drenalin) [employer] - Injectable drug used as inhalation treatment. MEDICATION WASTE Product Size: 1 mg Product Wasted: ___ mg No Longer Active 03/05/2018 [facility] Phenylephrine Notes: (Same as: Nicho-Synephrine) No Longer Active 03/05/2018 [facility] PlasmaLyte A PH-7.4 250 mL Not es: WASTE: F/P - Sink; E - Municipal Trash Bin Inactive 03/05/2018 [facility] Nicardipine Notes: Same as: Ca rdene Concentration: (0.2 mg /1 ml ) No Longer Active 03/05/2018 [facility] 1/2 NS 250 mL 250 mL, Rate: 10 .42 ml/hr, Infuse over: 24 hr, Route: IV, Dosing Weight 56.8 kg, Total Volume: 250, Start date: 03/05/18 8:49:00 CDT, Stop date: 04/04/18 8:48:00 CDT, 1.57, m2 No Longer Active 03/05/2018 [facility] 1/2NS + KCL 20mEq/L 1000ml (Premix) 1,000 mL Notes: PREMIX IV - Do Not Alter WASTE: F/P - Sink; E - Municipal Trash Bin Inactive 03/05/2018 [facility] Morphine Notes: (Same as:MORPh ine Sulfate) No Longer Active 03/05/2018 [facility] Ondansetron Notes: (Same as: Tino robbins) MEDICATION WASTE Product Size: 4 mg Product Wasted: _0__ mg Inactive 03/05/2018 [facility] Nitroglycerin Notes: (Same as: Nitroquick, Nitrostat) "Do Not Crush" Sublingual tablet No Longer Active 03/05/2018 [facility] Acetaminophen Notes: Do not ex ceed 4 gm/day. (Same as: Tylenol) No Longer Active 03/05/2018 [facility] Acetaminophen 325 MG / Hydrocodone Norma trate 5 MG Oral Tablet Notes: (Same as: Jefferson 325/5) Do not ex ceed 4gm/day of acetaminophen. No Longer Active 03/05/2018 [facility] Dextrose 50% Syringe 12.5 gm, 25 mL, Route: IVP, Drug Form: INJ, Dosing Weight 56.8, kg, PRN, PRN Blood Glucose Results, Start date: 03/05/18 8:45:00 CDT, Duration: 30 day, Stop date: 04/04/18 8:44:00 CDT Inactive 03/05/2018 [facility] Insulin regular 100 unit + Sodium Chlori de 0.9% (titrate) 99 mL Notes: (Same as: Humulin R and NovoLIN R ) WASTE: F/P - Black; E - Municipal Trash Bin (Do not shake) Inactive 03/05/2018 [facility] Sodium Chloride 0.9% (titrate) 250 mL 250 mL, Rate: To prime line and flush remaining blood products., Dosing Weight 56.8, kg, Route: IV, Total Volume: 250, Priority: Routine, Start Date: 03/05/18 8:45:00 CDT, Duration: 1 day, Stop date: 03/06/18 8:44:00 CDT, Replace Every: 24 hr Inactive 03/05/2018 [facility] Insulin regular (ANES) 1 unit Route: IV, Drug form: INJ, Start date: 03/05/18 8:40:00 CDT, Stop date: 03/05/18 9:40:00 CDT Inactive 03/05/2018 [facility] nitroglycerin (ANES) 400 microgram Route: IV, Drug form: INJ, Start date: 03/05/18 8:40:00 CDT, Stop date: 03/05/18 9:40:00 CDT Inactive 03/05/2018 [facility] Sodium Chloride 0.9% IV (ANES) 1000 mL Route: IV, Total Volume: 1,000, Start date: 03/05/18 8:23:00 CDT, Stop date: 03/05/18 9:23:00 CDT Inactive 03/05/2018 [facility] Phenylephrine = 65, Max Dose: 5 microgram/kg/min, Route: IV, Dosing Weight 56.8 kg, Total Volume: 250, Start date: 03/05/18 6:26:00 CD... Inactive 03/05/2018 [facility] Epinephrine = 65 mmHg, Max Dos e: 0.5 microgram/kg/min, Route: IV, Dosing Weight 56.8 kg, Total Volume: 250, Start date: 03/05/18 6:26:00 CDT... Inactive 03/05/2018 [facility] Norepinephrine Notes: Not for direct administration - DILUTE. Protect from light. (Same as:Levophed). Administer by either central venous catheter or peripherally-inserted central catheter (PICC) line. Inactive 03/05/2018 [facility] Lopressor Notes: (Same as: Lop ressor) Push over 2 minutes Inactive 03/05/2018 [facility] Insulin (Regular) additive 100 unit [0.1 unit/kg/hr] + NS 99 mL Notes: (Same as: Humulin R and NovoLIN R ) WASTE: F/P - Black; E - Municipal Trash Bin (Do not shake) Inactive 03/05/2018 [facility] Phenylephrine Notes: (Same as: Nicho-Synephrine) Inactive 03/05/2018 [facility] Epinephrine Notes: (Same as: A drenalin) [employer] - Injectable drug used as inhalation treatment. MEDICATION WASTE Product Size: 1 mg Product Wasted: ___ mg Inactive 03/05/2018 [facility] Sodium Chloride 0.9% (titrate) 250 mL 250 mL, Rate: To prime line and flush remaining blood products., Dosing Weight 58.182, kg, Route: IV, Total Volume: 250, Start Date: 03/04/18 14:18:00 CDT, Duration: 1 day, Stop date: 03/05/18 14:17:00 CDT, Replace Every: 24 hr No Longer Active 03/04/2018 [facility] Vancomycin 2001 mg: infuse ov er 2.5 hours For adult patients only: Round to nearest 250 mg per Medical Staff approval MEDICATION WASTE Product Size: 1000 mg Product Wasted: ___ mg No Longer Active 03/04/2018 [facility] Ancef + sterile water 20 mL No ariane: (Same As: Ancef, Kefzol) MEDICATION WASTE Product Size: 1000 mg Product Wasted: ___ mg No Longer Active 03/04/2018 [facility] [id number] 250 mL 250 mL, Rate: To prime line and flush remaining blood products., Route: IV, Dosing Weight 58.182 kg, Total Volume: 250, Priority: Routine, Start date: 03/04/18 12:35:00 CDT, Duration: 1 day, Stop date: 03/05/18 12:34:00 CDT, 1.59, m2 No Longer Active 03/04/2018 [facility] Insulin Lispro Notes: (Same as : Humalog ) Roll in palms of hands gently; Do not shake `vigorously. "Single Patient Use Only " WASTE: F/P - Black; E - Municipal Trash Bin Stable for 28 days at room temp erature. Expires in days from Date No Longer Active 03/03/2018 [facility] Nitroglycerin Notes: (Same as: Tridil) Final conc = 0.4 mg/ml. Premix bottle. No Longe r Active 03/01/2018 [facility] Sodium Chloride 0.9% (titrate) 250 mL 250 mL, Rate: To prime line and flush remaining blood products., Dosing Weight 58.182, kg, Route: IV, Total Volume: 250, Priority: Routine, Start Date: 03/01/18 9:26:00 CDT, Duration: 1 day, Stop date: 03/02/18 9:25:00 CDT, Replace Every: 24 hr No Longer Active 03/01/2018 [facility] Morphine 4 mg, Route: IVP, ONC E, Dosing Weight 58.182, kg, Start date: 03/01/18 9:12:00 CDT, Stop date: 03/01/18 9:12:00 CDT Inactive 03/01/2018 [facility] Amlodipine Notes: (Same as: No rvasc) No Longer Active 03/01/2018 [facility] Docusate Notes: (Same as: Cola ce) (Do Not Crush) No Longer Active 03/01/2018 [facility] Escitalopram Notes: (Same as: Lexapro) No Longer Active 03/01/2018 [facility] Protonix Notes: Tablet should not be chewed or crushed. (Same as: Protonix) No Longer Active 03/01/2018 [facility] Aspirin 81 MG Enteric Coated Tablet Notes: Do not crush or chew. (Same As: Ecotrin) No Longer Active 03/01/2018 [facility] Omeprazole 20 mg, Route: PO, D rug form: DRC, Daily, Dosing Weight 58.182, kg, Start date: 03/01/18 9:00:00 CDT, Duration: 30 day, Stop date: 03/30/18 9:00:00 CDT No Longer Active 03/01/2018 [facility] Insulin Glargine 100 UNT/ML Injectable Solution Notes: (Same as: Lantus) Do not hold insulin without contacting prescriber WASTE: F/P - Black; E - Municipal Trash Bin "single patient use only" No Longer Active 03/01/2018 [facility] Insulin Lispro Notes: (Same as : Humalog ) Roll in palms of hands gently; Do not shake `vigorously. "Single Patient Use Only " WASTE: F/P - Black; E - Municipal Trash Bin Stable for 28 days at room temp erature. Expires in days from Date No Longer Active 03/01/2018 [facility] Dextrose 50% Syringe 25 mL, Ro kay: IVP, Dosing Weight 58.182, kg, PRN, PRN Blood Glucose Results, Start date: 02/28/18 22:14:00 CDT, Duration: 30 day, Stop date: 03/30/18 22:13:00 CDT Inactive 03/01/2018 [facility] Glucagon 1 mg, Route: IM, PRN, Dosing Weight 58.182, kg, PRN Blood Glucose Results, Start date: 02/28/18 22:14:00 CDT, Duration: 30 day, Stop date: 03/30/18 22:13:00 CDT Inactive 03/01/2018 [facility] atorvastatin Notes: (Same as: Lipitor) No Longer Active 03/01/2018 [facility] carvedilol Notes: Give with fo od. (Same As: Coreg) No Longer Active 03/01/2018 [facility] Metoclopramide 5 MG Oral Tablet Notes: (Same as: Reglan) Take 30 min before meals No Longer Active 02/28/2018 [facility] Hydralazine Notes: (Same as: A presoline) Push over 5 minutes No Longer Active 02/28/2018 [facility] Melatonin Notes: (Same as: Priti atonin) No Longer Active 02/28/2018 [facility] Ondansetron Notes: (Same as: Tino robbins) MEDICATION WASTE Product Size: 4 mg Product Wasted: ___ mg No Longer Active 02/28/2018 [facility] Acetaminophen Notes: Do not ex ceed 4 gm/day. (Same as: Tylenol) No Longer Active 02/28/2018 [facility] Acetaminophen 325 MG / Hydrocodone Norma trate 5 MG Oral Tablet Notes: (Same as: Jefferson 325/5) Do not ex ceed 4gm/day of acetaminophen. No Longer Active 02/28/2018 [facility] Morphine Notes: (Same as:MORPh ine Sulfate) No Longer Active 02/28/2018 [facility] Heparin 30 unit/kg Bolus (Heparin Dosing Weight) Route: IVP, PRN, 1,500 unit, 1.5 mL, Drug form: INJ, PRN, Heparin Protocol, Start date: 02/28/18 15:59:00 CDT Stop date: 03/30/18 15:58:00 CDT, 30 day No Longer Active 02/28/2018 [facility] Heparin 60 unit/kg Bolus (Heparin Dosing Weight) Route: IVP, PRN, 3,000 unit, 3 mL, Drug form: INJ, PRN, Heparin Protocol, Start date: 02/28/18 15:59:00 CDT Stop date: 03/30/18 15:58:00 CDT, 30 day No Longer Active 02/28/2018 [facility] Heparin - one time bolus for ACS 3,000 unit, 3 mL, Route: IVP, Drug form: INJ, ONCE, Dosing Weight 58.182, kg, Priority: STAT, Start date: 02/28/18 15:59:00 CDT, Stop date: 02/28/18 15:59:00 CDT Inactive 02/28/2018 [facility] heparin additive 25,000 unit [12 unit/kg /hr] + Premix Diluent Dextrose 5% 500 mL 500 mL, Rate: 12.14 ml/hr, Infuse over: 41.2 hr, Route: IV, Dosing Weight 50.6 kg, Total Volume: 500 mL, Start date: 02/28/18 15:59:00 CDT, Duration: 30 day, Stop date: 03/30/18 15:58:00 CDT, 1.48, m2 No Longer Active 02/28/2018 [facility] Nitroglycerin 0.02 MG/MG Topical Ointment Notes: 1 gram is approximately 1 inch of nitroglycerin ointment (20 mg NTG per gram) (Same as:Nitro-Bid) Inactive 02/28/2018 [facility] Fentanyl Notes: (Same as: Subl imaze) Preservative free. Inactive 02/28/2018 [facility] Nitroglycerin Notes: (Same as: Nitroquick, Nitrostat) "Do Not Crush" Sublingual tablet Inactive 02/28/2018 [facility] Aspirin Notes: Take with food. Inactive 02/28/2018 [facility] Aspirin 81 MG Enteric Coated Tablet 81 mg = 1 tab, PO, Daily, # 30 tab, 3 Refill(s), Pharmacy: [facility] [id number] Active 02/21/2018 [facility] pantoprazole 40 mg oral enteric coated tablet 40 mg = 1 tab, PO, Daily, # 30 tab, 0 Refill(s), Pharmacy: [facility] [id number] Active 02/21/2018 [facility] carvedilol 25 mg oral tablet 2 5 mg = 1 tab, PO, Q12H, # 60 tab, 0 Refill(s), Pharmacy: [facility] [id number] Active 02/21/2018 [facility] atorvastatin 40 mg oral tablet 40 mg = 1 tab, PO, Bedtime, # 30 tab, 0 Refill(s), Pharmacy: [facility] [id number] Active 02/21/2018 [facility] normal saline 0.9% IV 1,000 mL 1,000 mL, Rate: 70 ml/hr, Infuse over: 14.3 hr, Route: IV, Dosing Weight 56.932 kg, Total Volume: 1,000, Start date: 02/19/18 12:46:00 CDT, Duration: 30 day, Stop date: 03/21/18 12:45:00 CDT, 1.57, m2 No Longer Active 02/19/2018 [facility] Zofran Notes: (Same as: Zofran ) MEDICATION WASTE Product Size: 4 mg Product Wasted: ___ mg No Longer Active 02/19/2018 [facility] Midodrine Notes: (Same as:Proa matine) No Longer Active 02/18/2018 [facility] Octreotide Notes: (Same As: Sa ndoSTATIN). Refrigerate. MEDICATION WASTE Product Size: 100 microgram Product Wasted: _0_ microgram No Longer Active 02/18/2018 [facility] albumin human 25% intravenous solution Notes: Lot #: Mfg: (Same as: Plasbumin-25) "blood product derivative" WASTE: F/P - Red; E -Red MEDICATION WASTE Product Size: 25 gm Product Wasted: ___ gm Inactive 02/18/2018 [facility] Sodium Chloride 0.9% (titrate) 250 mL 250 mL, Rate: To prime line and flush remaining blood products., Dosing Weight 56.932, kg, Route: IV, Total Volume: 250, Priority: Routine, Start Date: 02/18/18 9:25:00 CDT, Duration: 1 day, Stop date: 02/19/18 9:24:00 CDT, Replace Every: 24 hr No Longer Active 02/18/2018 [facility] morphine Sulfate Notes: (Same as:MORPhine Sulfate) No Longer Active 02/17/2018 [facility] morphine Sulfate Notes: (Same as:MORPhine Sulfate) Inactive 02/17/2018 [facility] Sulfasalazine Notes: (Same As: Azulfidine) No Longer Active 02/16/2018 [facility] Sodium Bicarbonate Notes: "Dis solve tablet in a glass of water prior to oral administration. STOMACH WARNING: To avoid serious injury, do not take until tablet is completely dissolved. It is very important not to t jhony this product when overly full from food or drink." No Longer Active 02/16/2018 [facility] Omeprazole 20 mg, Route: PO, D rug form: DRC, Daily, Dosing Weight 56.932, kg, Start date: 02/16/18 9:00:00 CDT, Duration: 30 day, Stop date: 03/17/18 9:00:00 CDT No Longer Active 02/16/2018 [facility] Protonix Notes: Tablet should not be chewed or crushed. (Same as: Protonix) No Longer Active 02/16/2018 [facility] Insulin Glargine 100 UNT/ML Injectable Solution Notes: (Same as: Lantus) Do not hold insulin without contacting prescriber WASTE: F/P - Black; E - Municipal Trash Bin "single patient use only" No Longer Active 02/16/2018 [facility] Escitalopram Notes: (Same as: Lexapro) No Longer Active 02/16/2018 [facility] Amlodipine Notes: (Same as: No rvasc) No Longer Active 02/16/2018 [facility] atorvastatin Notes: (Same as: Lipitor) No Longer Active 02/16/2018 [facility] Metoclopramide 5 MG Oral Tablet Notes: (Same as: Reglan) Take 30 min before meals No Longer Active 02/15/2018 [facility] Nitroglycerin Notes: (Same as: Nitroquick, Nitrostat) "Do Not Crush" Sublingual tablet No Longer Active 02/15/2018 [facility] Sodium Chloride 0.9% IV 500 mL 500 mL, Rate: 50 ml/hr, Infuse over: 10 hr, Route: IV, Dosing Weight 56.932 kg, Total Volume: 500, Start date: 02/15/18 17:55:00 CDT, Duration: 10 hr, Stop date: 02/16/18 3:54:00 CDT, 1.57, m2 No Longer Active 02/15/2018 [facility] Sodium Chloride 0.9% (Bolus) IV 250 mL, 250 ml/hr, Infuse Over: 1 hr, Route: IV, 250, Drug form: INJ, ONCALL, Priority: Routine, Dosing Weight 56.932 kg, Start date: 02/15/18 16:00:00 CDT, Duration: 1 doses or times No Longer Active 02/15/2018 [facility] Sodium Chloride 0.9% IV 750 mL 750 mL, Rate: 75 ml/hr, Infuse over: 10 hr, Route: IV, Dosing Weight 56.932 kg, Total Volume: 750, Start date: 02/15/18 15:05:00 CDT, Duration: 24 hr, Stop date: 02/16/18 15:04:00 CDT, 1.57, m2 No Longer Active 02/15/2018 [facility] Coreg Notes: Give with food. ( Same As: Coreg) No Longer Active 02/15/2018 [facility] Saline Flush 0.9% Notes: (Same as: BD Posiflush) No Longer Active 02/15/2018 [facility] Heparin - one time bolus for ACS 3,000 unit, 3 mL, Route: IVP, Drug form: INJ, ONCE, Dosing Weight 56.932, kg, Priority: STAT, Start date: 02/15/18 8:02:00 CDT, Stop date: 02/15/18 8:02:00 CDT Inactive 02/15/2018 [facility] heparin additive 25,000 unit [12 unit/kg /hr] + Premix Diluent Dextrose 5% 500 mL 500 mL, Rate: 12.02 ml/hr, Infuse over: 41.6 hr, Route: IV, Dosing Weight 50.07 kg, Total Volume: 500 mL, Start date: 02/15/18 8:02:00 CDT, Duration: 30 day, Stop date: 03/17/18 8:01:00 CDT, 1.47, m2 No Longer Active 02/15/2018 [facility] Heparin 30 unit/kg Bolus (Heparin Dosing Weight) Route: IVP, PRN, 1,500 unit, 1.5 mL, Drug form: INJ, PRN, Heparin Protocol, Start date: 02/15/18 8:02:00 CDT Stop date: 03/17/18 8:01:00 CDT, 30 day No Longer Active 02/15/2018 [facility] Heparin 60 unit/kg Bolus (Heparin Dosing Weight) Route: IVP, PRN, 3,000 unit, 3 mL, Drug form: INJ, PRN, Heparin Protocol, Start date: 02/15/18 8:02:00 CDT Stop date: 03/17/18 8:01:00 CDT, 30 day No Longer Active 02/15/2018 [facility] Insulin Lispro Notes: (Same as : Humalog ) Roll in palms of hands gently; Do not shake `vigorously. "Single Patient Use Only " WASTE: F/P - Black; E - Municipal Trash Bin Stable for 28 days at room temp erature. Expires in days from Date Inactive 02/15/2018 [facility] Morphine 2 mg, 1 mL, Route: IV P, Drug form: SOLN, Q4H, Dosing Weight 56.932, kg, PRN Chest Pain, Start date: 02/15/18 2:27:00 CDT, Duration: 30 day, Stop date: 03/17/18 2:26:00 CDT No Longer Active 02/15/2018 [facility] Morphine Notes: (Same as:MORPh ine Sulfate) Inactive 02/15/2018 [facility] Acetaminophen 325 MG / Hydrocodone Norma trate 5 MG Oral Tablet [[place] 5/325] Notes: (Same as: [place] 325/5) Do not ex ceed 4gm/day of acetaminophen. Inactive 02/15/2018 [facility] Amlodipine 10 mg, PO, Daily, 0 Refill(s) Active 02/15/2018 [facility] Sodium Bicarbonate 650 mg, PO, BID, 0 Refill(s) Active 02/15/2018 [facility] lisinopril 20 mg oral tablet 2 0 mg = 1 tab, PO, Daily, # 90 tab, 0 Refill(s) No Longer Active 02/15/2018 [facility] Hydrochlorothiazide 25 mg, PO, Daily, 0 Refill(s) No Longer Active 02/15/2018 [facility] Aspirin 81 MG Enteric Coated Tablet Notes: Do not crush or chew. (Same As: Ecotrin) No Longer Active 02/15/2018 [facility] Insulin Lispro Notes: (Same as : Humalog ) Roll in palms of hands gently; Do not shake `vigorously. "Single Patient Use Only " WASTE: F/P - Black; E - Oversi Trash Bin Stable for 28 days at room temp erature. Expires in days from Date No Longer Active 02/15/2018 [facility] Dextrose 50% Syringe 25 gm, 50 mL, Route: IVP, Drug Form: INJ, Dosing Weight 58.182, kg, PRN, PRN Blood Glucose Results, Start date: 02/14/18 21:59:00 CDT, Duration: 30 day, Stop date: 03/16/18 21:58:00 CDT No Longer Active 02/15/2018 [facility] Glucagon 1 mg, Route: IM, Drug form: PDR/INJ, PRN, Dosing Weight 58.182, kg, PRN Blood Glucose Results, Start date: 02/14/18 21:59:00 CDT, Duration: 30 day, Stop date: 03/16/18 21:58:00 CDT No Longer Active 02/15/2018 [facility] Kayexalate Notes: (sodium poly styrene sulfonate 15 gm/60 ml MERRY) Shake well before use. (Same as: Kayexalate, SPS) Inactive 02/15/2018 [facility] Saline Flush 0.9% Notes: (Same as: BD Posiflush) No Longer Active 02/15/2018 [facility] Acetaminophen Notes: Do not ex ceed 4 gm/day. (Same as: Tylenol) No Longer Active 02/15/2018 [facility] Aspirin Notes: Take with food. Inactive 02/15/2018 [facility] Saline Flush 0.9% Notes: (Same as: BD Posiflush) No Longer Active 02/15/2018 [facility] Insulin regular 10 unit, Route : IVP, ONCE, Dosing Weight 58.182, kg, Priority: STAT, Start date: 02/14/18 19:33:00 CDT, Stop date: 02/14/18 19:33:00 CDT Inactive 02/15/2018 [facility] Calcium Gluconate 1 gm, Route: IVPB, ONCE, Dosing Weight 58.182, kg, Priority: STAT, Start date: 02/14/18 19:33:00 CDT, Stop date: 02/14/18 19:33:00 CDT Inactive 02/15/2018 [facility] Furosemide 40 mg, Route: IVP, ONCE, Dosing Weight 58.182, kg, Priority: STAT, Start date: 02/14/18 19:33:00 CDT, Stop date: 02/14/18 19:33:00 CDT Inactive 02/15/2018 [facility] Dextrose 50% Syringe 100 mL, R oute: IVP, Dosing Weight 58.182, kg, ONCE, STAT, Start date: 02/14/18 19:33:00 CDT, Stop date: 02/14/18 19:33:00 CDT Inactive 02/15/2018 [facility] Albuterol 0.83 MG/ML Inhalant Solution 20 mg, Route: NEB, ONCE, Dosing Weight 58.182, kg, Priority: STAT, Start date: 02/14/18 19:33:00 CDT, Stop date: 02/14/18 19:33:00 CDT Inactive 02/15/2018 [facility] Saline Flush 0.9% Notes: (Same as: BD Posiflush) No Longer Active 02/15/2018 [facility] Insulin Glargine 100 UNT/ML Injectable Solution 20 unit, Route: SUB-Q, Drug form: SOLN, Daily, Dosing Weight 58.182, kg, Start date: 02/10/18 9:00:00 CDT, Duration: 30 day, Stop date: 03/11/18 9:00:00 CDT No Longer Active 02/10/2018 [facility] Escitalopram Notes: (Same as: Lexapro) No Longer Active 02/10/2018 [facility] Omeprazole 20 mg, Route: PO, D rug form: DRC, Daily, Dosing Weight 58.182, kg, Start date: 02/10/18 9:00:00 CDT, Duration: 30 day, Stop date: 03/11/18 9:00:00 CDT No Longer Active 02/10/2018 [facility] Insulin Glargine 100 UNT/ML Injectable S olution [Lantus] Notes: (Same as: Lantus) Do not hold ins ulin without contacting prescriber WASTE: F/P - Black; E - Municipal Trash Bin "single patient use only" No Longer Active 02/10/2018 [facility] Rocephin Notes: (Same As: Vlad macedo). Use with 100 mL NS and infuse over 30 min MEDICATION WASTE Product Size: 1000 mg Product Wasted: ___ mg No Longer Active 02/10/2018 [facility] calcium gluconate + Sodium Chloride 0.9% IV 100 mL Notes: WASTE: F/P - Sink; E - Municipal Trash Bin Inactive 02/09/2018 [facility] Calcium Gluconate Notes: WASTE : F/P - Sink; E - Municipal Trash Bin Inactive 02/09/2018 [facility] Insulin regular Notes: (Same a s: Humulin R and NovoLIN R) WASTE: F/P - Black; E - Municipal Trash Bin (Do not shake) Inactive 02/09/2018 [facility] Dextrose 50% Syringe 25 gm, 50 mL, Route: IVP, Drug Form: INJ, Dosing Weight 57.045, kg, ONCE, Start date: 02/09/18 17:46:00 CDT, Stop date: 02/09/18 17:46:00 CDT Inactive 02/09/2018 [facility] Lasix Notes: (Same as: Lasix) MEDICATION WASTE Product Size: 40 mg Product Wasted: ___ mg Inactive 02/09/2018 [facility] Sodium Bicarbonate Notes: "Dis solve tablet in a glass of water prior to oral administration. STOMACH WARNING: To avoid serious injury, do not take until tablet is completely dissolved. It is very important not to t jhony this product when overly full from food or drink." No Longer Active 02/09/2018 [facility] Protonix Notes: Tablet should not be chewed or crushed. (Same as: Protonix) No Longer Active 02/09/2018 [facility] Kayexalate Notes: (sodium poly styrene sulfonate 15 gm/60 ml MERRY) Shake well before use. (Same as: Kayexalate, SPS) Inactive 02/09/2018 [facility] Metoclopramide 5 MG Oral Tablet Notes: (Same as: Reglan) Take 30 min before meals No Longer Active 02/09/2018 [facility] Aspirin 81 MG Enteric Coated Tablet Notes: Do not crush or chew. (Same As: Ecotrin) No Longer Active 02/09/2018 [facility] Saline Flush 0.9% Notes: (Same as: BD Posiflush) No Longer Active 02/09/2018 [facility] Insulin Glargine Notes: (Same as: Lantus) Do not hold insulin without contacting prescriber WASTE: F/P - Black; E - Municipal Trash Bin "single patient use only" No Longer Active 02/09/2018 [facility] atorvastatin Notes: (Same as: Lipitor) No Longer Active 02/09/2018 [facility] Insulin Glargine 100 UNT/ML Injectable S olution [Lantus] 20 unit, SUB-Q, Bedtime, # 10 mL, 3 Refill(s) No Longer Active 02/09/2018 [facility] Rocephin Notes: (Same As: Roce phin). Use with 100 mL NS and infuse over 30 min MEDICATION WASTE Product Size: 1000 mg Product Wasted: ___ mg Inactive 02/09/2018 [facility] carvedilol Notes: Give with fo od. (Same As: Coreg) No Longer Active 02/09/2018 [facility] Lasix Notes: (Same as: Lasix) MEDICATION WASTE Product Size: 40 mg Product Wasted: ___ mg No Longer Active 02/09/2018 [facility] lisinopril 20 mg oral tablet 2 0 mg = 1 tab, PO, Daily, # 30 tab, 0 Refill(s) No Longer Active 02/08/2018 [facility] Metoclopramide 5 MG Oral Tablet 5 mg = 0, PO, QID-Before Meals, PRN nausea and vomiting, # 40 tab, 0 Refill(s) Active 02/08/2018 [facility] predniSONE 10 mg oral tablet 1 0 mg = 1 tab, PO, Daily, # 30 tab, 3 Refill(s) Active 02/08/2018 [facility] escitalopram 10 mg oral tablet 10 mg = 1 tab, PO, Daily, # 30 tab, 0 Refill(s) Active 02/08/2018 [facility] sulfaSALAzine 500 mg oral tablet 500 mg = 1 tab, PO, BID, # 60 tab, 0 Refill(s) Active 02/08/2018 [facility] Sodium Bicarbonate 650 mg, PO, BID, 0 Refill(s) No Longer Active 02/08/2018 [facility] omeprazole 20 mg oral delayed release capsule 20 mg = 1 cap, PO, Daily, # 30 cap, 0 Refill(s) Active 02/08/2018 [facility] Insulin Lispro Notes: (Same as : Humalog ) Roll in palms of hands gently; Do not shake `vigorously. "Single Patient Use Only " WASTE: F/P - Black; E - Oversi Trash Bin Stable for 28 days at room temp erature. Expires in days from Date No Longer Active 02/08/2018 [facility] Glucagon 1 mg, Route: IM, Drug form: PDR/INJ, PRN, Dosing Weight 58.182, kg, PRN Blood Glucose Results, Start date: 02/08/18 18:25:00 CDT, Duration: 30 day, Stop date: 03/10/18 18:24:00 CDT No Longer Active 02/08/2018 [facility] Dextrose 50% Syringe 25 gm, 50 mL, Route: IVP, Drug Form: INJ, Dosing Weight 58.182, kg, PRN, PRN Blood Glucose Results, Start date: 02/08/18 18:25:00 CDT, Duration: 30 day, Stop date: 03/10/18 18:24:00 CDT No Longer Active 02/08/2018 [facility] Hydralazine Notes: (Same as: A presoline) Push over 5 minutes No Longer Active 02/08/2018 [facility] Saline Flush 0.9% Notes: (Same as: BD Posiflush) No Longer Active 02/08/2018 [facility] Morphine Notes: (Same as:MORPh ine Sulfate) No Longer Active 02/08/2018 [facility] Nitroglycerin Notes: (Same as: NitroAlice raitat) "Do Not Crush" Sublingual tablet No Longer Active 02/08/2018 [facility] Acetaminophen Notes: Do not ex ceed 4 gm/day. (Same as: Tylenol) No Longer Active 02/08/2018 [facility] Diphenhydramine 25 mg, 1 tab, Route: PO, Drug form: TAB, Bedtime, Dosing Weight 58.182, kg, PRN Insomnia, Start date: 02/08/18 18:21:00 CDT, Duration: 30 day, Stop date: 03/10/18 18:20:00 CDT No Longer Active 02/08/2018 [facility] Ondansetron Notes: (Same as: Tino robbins) No Longer Active 02/08/2018 [facility] Clonidine Hydrochloride 0.1 MG Oral Tablet 0.1 mg, Route: PO, Drug form: TAB, ONCE, Dosing Weight 68.182, kg, Start date: 02/08/18 17:26:00 CDT, Stop date: 02/08/18 17:26:00 CDT Inactive 02/08/2018 [facility] Nitroglycerin 0.02 MG/MG Topical Ointment 1 inch, Route: TOP, Dosing Weight 68.182, kg, ONCE, Start date: 02/08/18 17:26:00 CDT, Stop date: 02/08/18 17:26:00 CDT Inactive 02/08/2018 [facility] Aspirin Notes: Take with food. Inactive 02/08/2018 [facility] Nitroglycerin Notes: (Same as: Maribel Hutton) "Do Not Crush" Sublingual tablet Inactive 02/08/2018 [facility] Saline Flush 0.9% Notes: prese rvative free. No Longer Active 02/08/2018 [facility] Amoxicillin 875 MG / Clavulanate 125 MG Oral Tablet [Augmentin 875-mg] Notes: With food. (Same as: Augmentin 87 5) Inactive 01/31/2017 [facility] 120 ACTUAT Albuterol 0.1 MG/ACTUAT / Ipr atropium [place] 0.02 MG/ACTUAT Metered Dose Inhaler [Combivent 20/100] 1 puff, INHALATION, QID, # 2 ea, 1 Refill(s) Active 01/31/2017 [facility] insulin detemir 100 units/mL subcutaneous solution 15 unit, SUB-Q, Bedtime, 0 Refill(s) Active 01/31/2017 [facility] thiamine 100 mg oral tablet 10 0 mg = 1 tab, PO, Daily, # 30 tab, 1 Refill(s) No Longer Active 01/31/2017 [facility] Furosemide 40 MG Oral Tablet [Lasix] 40 mg = 1 tab, PO, BID, # 60 tab, 1 Refill(s) Active 01/31/2017 [facility] Robitussin-AC oral syrup 5 mL, PO, Q4H, PRN Cough/Congestion, # 240 mL, 0 Refill(s) No Longer Active 01/31/2017 [facility] Amoxicillin 875 MG / Clavulanate 125 MG Oral Tablet [Augmentin 875-mg] 1 tab, PO, Q12H, with food or milk, # 20 tab, 0 Refill(s) No Longer Active 01/31/2017 [facility] Insulin, Aspart, Human 5 unit, SUB-Q, TID-Before Meals, 0 Refill(s) Active 01/31/2017 [facility] Furosemide 40 MG Oral Tablet [Lasix] Notes: (Same as: Lasix) May cause GI upset. Give with food or milk. No Longer Active 01/30/2017 [facility] Levemir Notes: Same as Levemir Do not hold insulin without contacting prescriber WASTE: F/P - Black; E - Oversi Trash Bin "single patient use only" No Longer Active 01/29/2017 [facility] Dilaudid 0.5 mg, 0.5 mL, Route : IVP, Drug form: INJ, Q4H, Dosing Weight 56.818, kg, PRN Pain Score 7-10, Start date: 01/27/17 20:08:00 CDT, Duration: 30 day, Stop date: 02/26/17 20:07:00 CDT No Longer Active 01/28/2017 [facility] Ondansetron Notes: (Same as: Tino robbins) MEDICATION WASTE Product Size: 4 mg Product Wasted: none No Longer Active 01/26/2017 [facility] Morphine Notes: (Same as:MORPh ine Sulfate) No Longer Active 01/26/2017 [facility] potassium chloride 20 mEq oral tablet, extended releas e Notes: (Same as: K-Dur 20) "Do Not Crush" With food and full glass of water Inactive 01/26/2017 [facility] ferrous sulfate Notes: Give wi th food. "Do Not Crush" No Longer Active 01/25/2017 [facility] cefepime Notes: (Same As: Pedro medina) MEDICATION WASTE Product Size: 1000 mg Product Wasted: ___ mg No Longer Active 01/25/2017 [facility] benzonatate Notes: (Same As: Shayy Roman) "Do Not Crush" No Longer Active 01/25/2017 [facility] aspirin 81 mg tablet, enteric coated Notes: Do not crush or chew. (Same As: Ecotrin) N o Longer Active 01/25/2017 [facility] Lasix Notes: (Same as: Lasix) MEDICATION WASTE Product Size: 40 mg Product Wasted: ___ mg No Longer Active 01/25/2017 [facility] Levemir Notes: Same as Levemir Do not hold insulin without contacting prescriber WASTE: F/P - Black; E - Municipal Trash Bin "single patient use only" No Longer Active 01/25/2017 [facility] Albuterol 0.833 MG/ML / Ipratropium Brom sha 0.167 MG/ML Inhalant Solution [DuoNeb] Notes: (Same as: Duoneb) No Longer Active 01/25/2017 [facility] NovoLog SUB-Q, TID-Before Meal s, 0 Refill(s) Active 01/25/2017 [facility] ferrous sulfate See Instructio ns, PO, 0 Refill(s) Active 01/25/2017 [facility] benzonatate 200 mg oral capsule 200 mg = 1 cap, PO, TID, # 30 cap, 0 Refill(s) Active 01/25/2017 [facility] NovoLog Notes: Roll in palms o f hands gently; Do not shake vigorously. (Same as: NovoLOG) "single patient use only" WASTE: F/P - Black; E - Municipal Trash Bin Stable for 28 days at room temperature. Expires in days from Date No Longer Active 01/24/2017 [facility] Zithromax Notes: (Same As: Zit hromax IV) No Longer Active 01/24/2017 [facility] Thiamine Notes: (Same As: Florinda min B1) No Longer Active 01/24/2017 [facility] Robitussin-AC oral syrup Notes : (Same As: Robitussin AC) No Longer Active 01/24/2017 [facility] Insulin, Aspart, Human Notes: Roll in palms of hands gently; Do not shake vigorously. (Same as: NovoLOG) "single patient use only" WASTE: F/P - Black; E - Municipal Trash Bin Stable for 28 days at room temperature. Expires in days from Date No Longer Active 01/24/2017 [facility] Dextrose 50% Syringe 25 gm, 50 mL, Route: IVP, Drug Form: INJ, Dosing Weight 50, kg, PRN, PRN Blood Glucose Results, Start date: 01/24/17 15:09:00 CDT, Duration: 30 day, Stop date: 02/23/17 15:08:00 CDT No Longer Active 01/24/2017 [facility] Glucagon 1 mg, Route: IM, Drug form: PDR/INJ, PRN, Dosing Weight 50, kg, PRN Blood Glucose Results, Start date: 01/24/17 15:09:00 CDT, Duration: 30 day, Stop date: 02/23/17 15:08:00 CDT No Longer Active 01/24/2017 [facility] sodium bicarbonate 8.4% Notes: (sodium bicarb 8.4% (1 mEq/ml) 50 ml syringe) Inactiv e 01/24/2017 [facility] Levofloxacin Notes: (Same as:Carlito evaqfrank) Inactive 01/24/2017 [facility] cefepime Notes: (Same As: Pedro medina) MEDICATION WASTE Product Size: 1000 mg Product Wasted: ___ mg Inactive 01/24/2017 [facility] Vancomycin 2001 mg: infuse ov er 2.5 hours MEDICATION WASTE Product Size: 1000 mg Product Wasted: ___ mg Inactive 01/24/2017 [facility] Zofran 4 mg, Route: IVP, Drug form: INJ, ONCE, Dosing Weight 50, kg, Priority: STAT, Start date: 01/24/17 13:03:00 CDT, Stop date: 01/24/17 13:03:00 CDT Inactive 01/24/2017 [facility] Furosemide Notes: (Same as: Tavia damon) MEDICATION WASTE Product Size: 40 mg Product Wasted: ___ mg Inactive 01/24/2017 [facility] Insulin regular 10 unit, Route : IVP, ONCE, Dosing Weight 50, kg, Priority: STAT, Start date: 01/24/17 11:38:00 CDT, Stop date: 01/24/17 11:38:00 CDT Inactive 01/24/2017 [facility] Zofran 4 mg, Route: IVP, Drug form: INJ, ONCE, Dosing Weight 50, kg, Priority: STAT, Start date: 01/24/17 11:12:00 CDT, Stop date: 01/24/17 11:12:00 CDT Inactive 01/24/2017 [facility] Sodium Chloride 0.154 MEQ/ML Injectable Solution 500 mL, 500 ml/hr, Infuse Over: 1 hr, Route: IV, ONCE, Priority: STAT, Dosing Weight 50 kg, Start date: 01/24/17 11:12:00 CDT, Duration: 1 doses or times, Stop date: 01/24/17 11:12:00 CDT Inactive 01/24/2017 [facility] Aspirin 324 mg, Route: CHEW, D rug form: CHEWTAB, ONCE, Dosing Weight 50, kg, Priority: STAT, Start date: 01/24/17 10:33:00 CDT, Stop date: 01/24/17 10:33:00 CDT Inactive 01/24/2017 [facility] Saline Flush 0.9% Notes: (Same as: BD Posiflush) No Longer Active 01/24/2017 [facility] meclizine 25 mg oral tablet 25 mg = 1 tab, PO, TID, PRN Dizziness, X 7 day, # 21 tab, 0 Refill(s) Active 01/18/2017 [facility] aspirin 81 mg tablet, enteric coated 81 mg = 1 tab, PO, Daily, # 100 tab, 0 Refill(s) Active 01/18/2017 [facility] amLODIPine 5 mg oral tablet 5 mg = 1 tab, PO, Daily, # 30 tab, 0 Refill(s) Active 01/18/2017 [facility] Sodium Chloride 0.154 MEQ/ML Injectable Solution 1,000 mL, Rate: 60 ml/hr, Infuse over: 16.7 hr, Route: IV, Dosing Weight 52.273 kg, Total Volume: 1,000, Start date: 01/17/17 14:54:00 CDT, Duration: 30 day, Stop date: 02/16/17 14:53:00 CDT No Longer Active 2017 [facility] Meclizine Notes: (Same as: Ant ivert) No Longer Active 2017 [facility] Insulin Glargine 100 UNT/ML Injectable Solution 20 unit, Route: SUB-Q, Drug form: SOLN, Daily, Dosing Weight 52.273, kg, Start date: 01/17/17 9:00:00 CDT, Duration: 30 day, Stop date: 02/15/17 9:00:00 CDT No Longer Active 2017 [facility] aspirin 81 mg tablet, enteric coated Notes: Do not crush or chew. (Same As: Ecotrin) N o Longer Active 01/16/2017 [facility] Hydralazine Notes: (Same as: A presoline) Push over 5 minutes No Longer Active 01/16/2017 [facility] Norvasc Notes: (Same as: Norva sc) No Longer Active 01/16/2017 [facility] insulin detemir Notes: EXPIRES 24 HRS AFTER PREP TIME AT ROOM TEMP No Longer Active 01/16/2017 [facility] Insulin, Aspart, Human Notes: Roll in palms of hands gently; Do not shake vigorously. (Same as: NovoLOG) "single patient use only" WASTE: F/P - Black; E - Municipal Trash Bin Stable for 28 days at room temperature. Expires in days from Date No Longer Active 01/16/2017 [facility] Dextrose 50% Syringe 12.5 gm, 25 mL, Route: IVP, Drug Form: INJ, Dosing Weight 52.273, kg, PRN, PRN Blood Glucose Results, Start date: 01/16/17 9:50:00 CDT, Duration: 30 day, Stop date: 02/15/17 9:49:00 CDT No Longer Active 01/16/2017 [facility] Glucagon 1 mg, Route: IM, Drug form: PDR/INJ, PRN, Dosing Weight 52.273, kg, PRN Blood Glucose Results, Start date: 01/16/17 9:50:00 CDT, Duration: 30 day, Stop date: 02/15/17 9:49:00 CDT No Longer Active 01/16/2017 [facility] Streptococcus pneumoniae serotype 1 caps ular antigen diphtheria [id number] protein conjugate vaccine / Streptococcus pneumoniae serotype 14 capsular antigen diphtheria [id number] protein conjugate vaccine / Streptococcus pneumoniae serotype 18C capsular antigen d Notes: Lightly roll vial (DO NOT SHAKE) before administration. (Same as: Prevnar 13) Inactive 01/16/2017 [facility] influenza virus vaccine, inactivated Notes: (Same as: Fluzone Quadrivalent, Fluarix Quadrivalent) For 3 years of age and older (0.5 mL IM) Shake well before use Inactive 01/16/2017 [facility] Rocephin Notes: (Same As: Vlad macedo). Use with 100 mL NS and infuse over 30 min MEDICATION WASTE Product Size: 1000 mg Product Wasted: ___ mg No Longer Active 01/16/2017 [facility] Acetaminophen 325 MG / Hydrocodone Norma trate 5 MG Oral Tablet Notes: (Same as: Jefferson 325/5) Do not ex ceed 4gm/day of acetaminophen. No Longer Active 01/16/2017 [facility] Ondansetron Notes: (Same as: Tino robbins) MEDICATION WASTE Product Size: 4 mg Product Wasted: ___ mg No Longer Active 01/16/2017 [facility] Sodium Chloride 0.154 MEQ/ML Injectable Solution 1,000 mL, Rate: 100 ml/hr, Infuse over: 10 hr, Route: IV, Dosing Weight 52.273 kg, Total Volume: 1,000, Start date: 01/15/17 21:57:00 CDT, Duration: 30 day, Stop date: 02/14/17 21:56:00 CDT No Longer Active 01/16/2017 [facility] Saline Flush 0.9% Notes: (Same as: BD Posiflush) No Longer Active 01/16/2017 [facility] Tylenol Notes: Do not exceed 4 gm/day. (Same as: Tylenol) Inactive 01/15/2017 [facility] Sodium Chloride 0.154 MEQ/ML Injectable Solution 1,000 mL, 1,000 ml/hr, Infuse Over: 1 hr, Route: IV, 1,000, Drug form: INJ, ONCE, Priority: STAT, Dosing Weight 52.273 kg, Start date: 01/15/17 16:07:00 CDT, Duration: 1 doses or times, Stop date: 01/15/17 16:07:00 CDT Inactive 01/15/2017 [facility] Saline Flush 0.9% Notes: (Same as: BD Posiflush) No Longer Active 01/15/2017 [facility] Metformin hydrochloride 500 MG Oral Tablet Notes: (Same as: Glucophage) Take with meal Inactive 02/20/2016 [facility] nt Acetaminophen 325 MG / Hydrocodone Norma trate 5 MG Oral Tablet [Jefferson 5/325] 1 tab, PO, Q6H, PRN Pain Score 4-6, # 30 tab, 0 Refill(s) Active 02/20/2016 [facility] Lidocaine Hydrochloride 0.05 MG/MG Transdermal Patch 1 patch, TOP, Daily, # 30 patch, 0 Refill(s) Active 02/20/2016 [facility] nt Metformin hydrochloride 500 MG Oral Tablet 500 mg = 1 tab, PO, BID, # 60 tab, 0 Refill(s) Active 02/20/2016 [facility] nt insulin glargine 100 units/mL subcutaneous solution 20 unit, SUB-Q, Daily, # 10 mL, 0 Refill(s) Active 02/20/2016 [facility] nter Lantus Notes: Same as Lantus S olostar PEN Do not hold insulin without contacting prescriber "single patient use only" WASTE: F/P - Black; E - Municipal Trash Bin Stable for 28 days at room temperature. Expires in days from Date Inactive 02/20/2016 [facility] nt remove patch Notes: Remove pat ch 12 hours after application each day. No Longe r Active 02/19/2016 [facility] nter Pneumovax 23 Notes: (Same as: Pneumovax 23) Refrigerate Inactive 02/18/2016 [facility] Lidocaine Hydrochloride 0.05 MG/MG Transdermal Patch Notes: Apply only once for up to 12 hours in a 24-hour period (12 hours on and 12 hours off). (Same as: Lidoderm) "Remove old patch before application of new patch" No Longer Active 02/18/2016 [facility] Lisinopril Notes: (Same as: Pr inivil, Zestril) No Longer Active 02/18/2016 [facility] Saline Flush 0.9% Notes: (Same as: BD Posiflush) No Longer Active 02/18/2016 [facility] pneumococcal capsular polysaccharide typ e 1 vaccine / pneumococcal capsular polysaccharide type 10A vaccine / pneumococcal capsular polysaccharide type 11A vaccine / pneumococcal capsular polysaccharide type 12F vaccine / pneumococcal capsular polysacchar Notes: (Same as: Pneumovax 23) Refrigerate Inactive 02/18/2016 [facility] Acetaminophen 325 MG / Hydrocodone Norma trate 5 MG Oral Tablet [Jefferson 5/325] Notes: (Same as: Jefferson 325/5) Do not ex ceed 4gm/day of acetaminophen. No Longer Activ e 02/18/2016 [facility] Sodium Chloride 0.154 MEQ/ML Injectable Solution 1,000 mL, Rate: 125 ml/hr, Infuse over: 8 hr, Route: IV, Dosing Weight 46.364 kg, Total Volume: 1,000, Start date: 02/18/16 0:22:00 CDT, Duration: 30 day, Stop date: 03/19/16 0:21:00 CDT No Longer Active 02/18/2016 [facility] nter Lantus 50 unit, SUB-Q, Bedtime , 0 Refill(s) No Longer Active 02/18/2016 [facility] Humalog 30units, SUB-Q, Breakf ast, 0 Refill(s) No Longer Active 02/18/2016 [facility] Sodium Chloride 0.154 MEQ/ML Injectable Solution 125 mL, 125 ml/hr, Infuse Over: 1 hr, Route: IV, 125, Drug form: INJ, ONCE, Priority: STAT, Dosing Weight 52.273 kg, Start date: 02/17/16 21:43:00 CDT, Duration: 1 doses or times, Stop date: 02/17/16 21:43:00 CDT No Longer Active 02/18/2016 [facility] Insulin, Aspart, Human Notes: Roll in palms of hands gently; Do not shake vigorously. (Same as: NovoLOG) "single patient use only" WASTE: F/P - Black; E - Municipal Trash Bin Stable for 28 days at room temperature. Expires in days from Date No Longer Active 02/18/2016 [facility] Dextrose 50% Syringe 25 gm, 50 mL, Route: IVP, Drug Form: INJ, Dosing Weight 52.273, kg, PRN, PRN Blood Glucose Results, Start date: 02/17/16 21:22:00 CDT, Duration: 30 day, Stop date: 03/18/16 21:21:00 CDT No Longer Active 02/18/2016 [facility] Glucagon 1 mg, Route: IM, Drug form: PDR/INJ, PRN, Dosing Weight 52.273, kg, PRN Blood Glucose Results, Start date: 02/17/16 21:22:00 CDT, Duration: 30 day, Stop date: 03/18/16 21:21:00 CDT No Longer Active 02/18/2016 [facility] Saline Flush 0.9% Notes: (Same as: BD Posiflush) No Longer Active 02/18/2016 [facility] Morphine Notes: (Same as:MORPh ine Sulfate) No Longer Active 02/18/2016 [facility] Ondansetron Notes: (Same as: Tino robbins) MEDICATION WASTE Product Size: 4 mg Product Wasted: 0 mg No Longer Active 02/18/2016 [facility] BD Normal Saline Flush Notes: (Same as: BD Posiflush) No Longer Active 02/18/2016 [facility] Dilaudid Notes: Same as: Dilau did Inactive 02/17/2016 [facility] Isolyte S PH-7.4 (Bolus) IV No ariane: (Same as: Isolyte S PH 7.4) No Longer Active 02/17/2016 [facility] Insulin regular 60 units) W ASTE: F/P - Black; E - Municipal Trash Bin Stable for 28 days at room temperature Expires in days from Date Inactive 02/17/2016 [facility] nter Morphine 4 mg, Route: IVP, Patel g form: INJ, ONCE, Dosing Weight 52.273, kg, Priority: STAT, Start date: 02/17/16 16:18:00 CDT, Stop date: 02/17/16 16:18:00 CDT Inactive 02/17/2016 [facility] Insulin regular 60 units) W ASTE: F/P - Black; E - Municipal Trash Bin Stable for 28 days at room temperature Expires in days from Date Inactive 02/17/2016 [facility] nter Isolyte S PH-7.4 (Bolus) IV No ariane: (Same as: Isolyte S PH 7.4) Inactive 02/17/2016 [facility] Nitroglycerin 0.4 MG Sublingual Tablet Notes: (Same as:Nitroquick, Nitrostat) "Do Not Crush" Sublingual tablet Inactive 02/17/2016 [facility] Nitroglycerin 0.02 MG/MG Topical Ointment Notes: 1 gram is approximately 1 inch of nitroglycerin ointment (20 mg NTG per gram) (Same as:Nitro-Bid) Inactive 02/17/2016 [facility] Nitroglycerin 0.4 mg, Route: S L, ONCE, Dosing Weight 52.273, kg, Start date: 02/17/16 14:23:00 CDT, Stop date: 02/17/16 14:23:00 CDT Inactive 02/17/2016 [facility] Isolyte S PH-7.4 (Bolus) IV No ariane: (Same as: Isolyte S PH7.4) Inactive 02/17/2016 [facility] Morphine Notes: (Same as:MORPh ine Sulfate) Inactive 02/17/2016 [facility] Aspirin 324 mg, 4 tab, Route: PO, Drug form: CHEWTAB, ONCE, Dosing Weight 52.273, kg, Priority: STAT, Start date: 02/17/16 14:01:00 CDT, Stop date: 02/17/16 14:01:00 CDT Inactive 02/17/2016 [facility] nter Saline Flush 0.9% Notes: (Same as: BD Posiflush) No Longer Active 02/17/2016 [facility] Ibuprofen 400 MG Oral Tablet 4 00 mg = 1 tab, PO, Q4H, Pain, # 10 tab, 0 Refill(s) Active 07/19/2014 [facility] Diazepam 2 MG Oral Tablet [Valium] 2 mg = 1 tab, PO, QID, muscle spasm, # 7 tab, 0 Refill(s) Active 07/19/2014 [facility] Insulin, Regular, Pork Notes: (Same as: Humulin R and NovoLIN R) (Do not shake) No Longer Active 07/19/2014 [facility] Sodium Chloride 0.154 MEQ/ML Injectable Solution 1,000 mL, 1,000 ml/hr, Infuse Over: 1 hr, Route: IV, 1,000, Drug form: INJ, ONCE, Priority: STAT, Dosing Weight 52.273 kg, Start date: 07/18/14 22:27:00, Duration: 1 doses or times, Stop date: 07/18/14 22:27:00 Inactive 07/19/2014 [facility] Ibuprofen 600 mg, Route: PO, D rug form: TAB, ONCE, Dosing Weight 52.273, kg, Priority: STAT, Start date: 07/18/14 21:27:00, Stop date: 07/18/14 21:27:00 Inactive 07/19/2014 [facility] Valium 5 mg, Route: PO, ONCE, Dosing Weight 52.273, kg, Priority: STAT, Start date: 07/18/14 21:27:00, Stop date: 07/18/14 21:27:00 Inactive 07/19/2014 [facility] Allergies, Adverse Reactions, Alerts Substance Category Reaction Severity Reaction type Status Date Reported Comments Source No Known Medication Allergies Assertion Drug aller gy [facility] Immunizations Immunization Date Given Site Status Last Updated Comments Source pneumococcal 13-valent vaccine 01/16/2017 [facility], [facility] 01/16/2017 Right deltoid completed [facility] pneumococcal 23-valent [facility] 02/18/2016 Left Deltoid completed [facility] Results Order Name Results Value Reference Range Date Interpretation Comments Source CHEM PANEL Glucose Lvl 145 70 - 99 06/07/2020 [facility] CHEM PANEL BUN 32 7 - 22 06/07/2020 [facility] CHEM PANEL Creatinine Lvl 7.03 0.50 - 1.40 06/07/2020 [facility] CHEM PANEL Sodium Lvl 135 135 - 145 06/07/2020 [facility] CHEM PANEL Potassium Lvl 3.9 3.5 - 5.1 06/07/2020 [facility] CHEM PANEL Chloride Lvl 99 95 - 109 06/07/2020 [facility] CHEM PANEL CO2 28 24 - 32 06/07/2020 [facility] CHEM PANEL Calcium Lvl 8.9 8.5 - 10.5 06/07/2020 [facility] CHEM PANEL AGAP 11.9 10.0 - 20.0 06/07/2020 [facility] CHEM PANEL eGFR 5 06/07/2020 Result Comment: The eGFR is calculated using the CKD-EPI formula. In most young, healthy individuals the eGFR will be >90 mL/min/1.73m2. The eGFR declines with age. An eGFR of 60-89 may be normal in some populations, particularly the elderly, for whom the CKD-EPI formula has not been extensively validated. Use of the eGFR is not recommended in the following populations:

Individuals with unstable creatinine concentrations, including patients and those with serious co-morbid conditions.

Patients with extremes in muscle mass or diet.

The data above are obtained from the National Kidney Disease Education Program (NKDEP) which additionally recommends that when the eGFR is used in patients with extremes of body mass index for purposes of drug dosing, the eGFR should be multiplied by the estimated BMI. [facility] HEMATOLOGY WBC 5.0 3.7 - 10.4 06/07/2020 [facility] HEMATOLOGY RBC 3.44 4.20 - 5.40 06/07/2020 [facility] HEMATOLOGY Hgb 10.8 12.0 - 16.0 06/07/2020 [facility] HEMATOLOGY Hct 33.0 36.0 - 48.0 06/07/2020 [facility] HEMATOLOGY MCV 95.9 80.0 - 98.0 06/07/2020 [facility] HEMATOLOGY MCH 31.5 27.0 - 31.0 06/07/2020 [facility] HEMATOLOGY MCHC 32.8 32.0 - 36.0 06/07/2020 [facility] HEMATOLOGY RDW 14.4 11.5 - 14.5 06/07/[address] [facility] Platelet 147 133 - 450 06/07/[address] [facility] MPV 8.4 7.4 - 10.4 06/07/[address] [facility] Segs 51.1 45.0 - 75.0 06/07/2020 [facility] HEMATOLOGY Lymphocytes 25.1 20.0 - 40.0 06/07/2020 [facility] HEMATOLOGY Monocytes 11.4 2.0 - 12.0 06/07/2020 [facility] HEMATOLOGY Eosinophils 11.8 0.0 - 4.0 06/07/2020 [facility] HEMATOLOGY Basophils 0.6 0.0 - 1.0 06/07/2020 [facility] HEMATOLOGY Neutrophils # 2.6 1.5 - 8.1 06/07/2020 [facility] HEMATOLOGY Lymphocytes # 1.3 1.0 - 5.5 06/07/2020 [facility] HEMATOLOGY Monocytes # 0.6 0.0 - 0.8 06/07/2020 [facility] HEMATOLOGY Eosinophils # 0.6 0.0 - 0.5 06/07/2020 [facility] ENDOCRINOLOGY Prolactin Lvl 16 .2 06/04/2020 Result Comment: Reference Ra nge
Females
Non- 3.0-30.0
10.0-209.0
Postmenopausal 2.0-20.0

Lab test performed by:
[facility]
[id number]
[place] [address]
GIANNA MCPHERSON MD [facility] CARDIAC ENZYMES Troponin-I <0.02 0.00 - 0.40 06/04/2020 [facility] CHEM PANEL Magnesium Lvl 2.4 1.8 - 2.4 06/03/2020 [facility] CHEM PANEL Phosphorus 2.8 2.5 - 4.5 06/03/2020 [facility] CHEM PANEL Glucose Lvl 72 70 - 99 06/02/2020 [facility] CHEM PANEL BUN 34 7 - 22 06/02/2020 [facility] CHEM PANEL Creatinine Lvl 5.25 0.50 - 1.40 06/02/2020 [facility] CHEM PANEL Sodium Lvl 139 135 - 145 06/02/2020 [facility] CHEM PANEL Potassium Lvl 4.4 3.5 - 5.1 06/02/2020 [facility] CHEM PANEL Chloride Lvl 101 95 - 109 06/02/2020 [facility] CHEM PANEL CO2 30 24 - 32 06/02/2020 [facility] CHEM PANEL Calcium Lvl 9.1 8.5 - 10.5 06/02/2020 [facility] CHEM PANEL Total Protein 8.4 6.4 - 8.4 06/02/2020 [facility] CHEM PANEL Albumin Lvl 3.5 3.5 - 5.0 06/02/2020 [facility] CHEM PANEL ALT 31 0 - 65 06/02/2020 [facility] CHEM PANEL AST 50 0 - 37 06/02/2020 [facility] CHEM PANEL Alk Phos 146 39 - 136 06/02/2020 [facility] CHEM PANEL Bili Total 0.8 0.2 - 1.3 06/02/2020 [facility] CHEM PANEL AGAP 12.4 10.0 - 20.0 06/02/2020 [facility] CHEM PANEL B/C Ratio 6 6 - 25 06/02/2020 [facility] CHEM PANEL Globulin 4.9 2.7 - 4.2 06/02/2020 [facility] CHEM PANEL A/G Ratio 0.7 0.7 - 1.6 06/02/2020 [facility] CHEM PANEL eGFR 8 06/02/2020 Result Comment: The eGFR is calculated using the CKD-EPI formula. In most young, healthy individuals the eGFR will be >90 mL/min/1.73m2. The eGFR declines with age. An eGFR of 60-89 may be normal in some populations, particularly the elderly, for whom the CKD-EPI formula has not been extensively validated. Use of the eGFR is not recommended in the following populations:

Individuals with unstable creatinine concentrations, including patients and those with serious co-morbid conditions.

Patients with extremes in muscle mass or diet.

The data above are obtained from the National Kidney Disease Education Program (NKDEP) which additionally recommends that when the eGFR is used in patients with extremes of body mass index for purposes of drug dosing, the eGFR should be multiplied by the estimated BMI. [facility] HEMATOLOGY WBC 5.5 3.7 - 10.4 06/02/2020 [facility] HEMATOLOGY RBC 3.40 4.20 - 5.40 06/02/2020 [facility] HEMATOLOGY Hgb 11.0 12.0 - 16.0 06/02/2020 [facility] HEMATOLOGY Hct 32.9 36.0 - 48.0 06/02/2020 [facility] HEMATOLOGY MCV 96.6 80.0 - 98.0 06/02/2020 [facility] HEMATOLOGY MCH 32.4 27.0 - 31.0 06/02/2020 [facility] HEMATOLOGY MCHC 33.5 32.0 - 36.0 06/02/2020 [facility] HEMATOLOGY RDW 14.6 11.5 - 14.5 06/02/2020 [facility] HEMATOLOGY Platelet 162 133 - 450 06/02/2020 [facility] HEMATOLOGY MPV 7.6 7.4 - 10.4 06/02/[address] [facility] Segs 61.9 45.0 - 75.0 06/02/2020 [facility] HEMATOLOGY Lymphocytes 19.9 20.0 - 40.0 06/02/2020 [facility] HEMATOLOGY Monocytes 10.0 2.0 - 12.0 06/02/2020 [facility] HEMATOLOGY Eosinophils 7.6 0.0 - 4.0 06/02/2020 [facility] HEMATOLOGY Basophils 0.6 0.0 - 1.0 06/02/[address] [facility] Neutrophils # 3.4 1.5 - 8.1 06/02/[address] [facility] Lymphocytes # 1.1 1.0 - 5.5 06/02/[address] [facility] Monocytes # 0.6 0.0 - 0.8 06/02/2020 [facility] HEMATOLOGY Eosinophils # 0.4 0.0 - 0.5 06/02/2020 [facility] IMMUNOLOGY RPR Non R eactive (06/02/20 8:43 AM) Non Reactive 06/02/2020 [facility] CHEM PANEL Glucose Lvl 67 70 - 99 06/01/2020 [facility] CHEM PANEL BUN 13 7 - 22 06/01/2020 [facility] CHEM PANEL Creatinine Lvl 3.20 0.50 - 1.40 06/01/2020 [facility] CHEM PANEL Sodium Lvl 140 135 - 145 06/01/2020 [facility] CHEM PANEL Potassium Lvl 3.9 3.5 - 5.1 06/01/2020 [facility] CHEM PANEL Chloride Lvl 102 95 - 109 06/01/2020 [facility] CHEM PANEL CO2 31 24 - 32 06/01/2020 [facility] CHEM PANEL AGAP 10.9 10.0 - 20.0 06/01/2020 [facility] CHEM PANEL Calcium Lvl 9.0 8.5 - 10.5 06/01/2020 [facility] CHEM PANEL eGFR 14 06/01/2020 Result Comment: The eGFR is calculated using the CKD-EPI formula. In most young, healthy individuals the eGFR will be >90 mL/min/1.73m2. The eGFR declines with age. An eGFR of 60-89 may be normal in some populations, particularly the elderly, for whom the CKD-EPI formula has not been extensively validated. Use of the eGFR is not recommended in the following populations:

Individuals with unstable creatinine concentrations, including patients and those with serious co-morbid conditions.

Patients with extremes in muscle mass or diet.

The data above are obtained from the National Kidney Disease Education Program (NKDEP) which additionally recommends that when the eGFR is used in patients with extremes of body mass index for purposes of drug dosing, the eGFR should be multiplied by the estimated BMI. [facility] WBC 6.2 3.7 - 10.4 06/01/[address] [facility] RBC 3.52 4.20 - 5.40 06/01/[address] [facility] Hgb 11.5 12.0 - 16.0 06/01/[address] [facility] Hct 34.2 36.0 - 48.0 06/01/[address] [facility] MCV 97.2 80.0 - 98.0 06/01/[address] [facility] MCH 32.6 27.0 - 31.0 06/01/[address] [facility] MCHC 33.5 32.0 - 36.0 06/01/[address] [facility] RDW 14.7 11.5 - 14.5 06/01/[address] [facility] Platelet 144 133 - 450 06/01/[address] [facility] MPV 7.7 7.4 - 10.4 06/01/[address] [facility] Segs 61.3 45.0 - 75.0 06/01/[address] [facility] Lymphocytes 20.1 20.0 - 40.0 06/01/[address] [facility] Monocytes 11.3 2.0 - 12.0 06/01/[address] [facility] Eosinophils 6.8 0.0 - 4.0 06/01/[address] [facility] Basophils 0.5 0.0 - 1.0 06/01/[address] [facility] Neutrophils # 3.8 1.5 - 8.1 06/01/[address] [facility] Lymphocytes # 1.2 1.0 - 5.5 06/01/[address] [facility] Monocytes # 0.7 0.0 - 0.8 06/01/[address] [facility] Eosinophils # 0.4 0.0 - 0.5 06/01/2020 [facility] IMMUNOLOGY Hep Bs Ag Negat zaria *NA* (05/31/20 12:10 PM) Negative 05/31/2020 [facility] CARDIAC ENZYMES Troponin-I <0.02 0.00 - 0.40 05/31/2020 [facility] CHEM PANEL Total Protein 8.4 6.4 - 8.4 05/31/2020 [facility] CHEM PANEL Albumin Lvl 3.5 3.5 - 5.0 05/31/2020 [facility] CHEM PANEL ALT 25 0 - 65 05/31/2020 [facility] CHEM PANEL AST 40 0 - 37 05/31/2020 [facility] CHEM PANEL Alk Phos 136 39 - 136 05/31/2020 [facility] CHEM PANEL Bili Total 0.7 0.2 - 1.3 05/31/2020 [facility] CHEM PANEL B/C Ratio 6 6 - 25 05/31/2020 [facility] CHEM PANEL Globulin 4.9 2.7 - 4.2 05/31/2020 [facility] CHEM PANEL A/G Ratio 0.7 0.7 - 1.6 05/31/2020 [facility] CHEM PANEL Ammonia 21.0 <=45.0 uMol/L 05/31/2020 [facility] DRUG SCREEN U Amph Scr Nega tive *NA* (05/31/20 8:32 AM) Negative 05/31/2020 [facility] DRUG SCREEN U Fariha Scr Nega tive *NA* (05/31/20 8:32 AM) Negative 05/31/2020 [facility] DRUG SCREEN U Benzodiaz Scr Nega tive *NA* (05/31/20 8:32 AM) Negative 05/31/2020 [facility] DRUG SCREEN U Cocaine Scr Nega tive *NA* (05/31/20 8:32 AM) Negative 05/31/2020 [facility] DRUG SCREEN U Cannab Scr Nega tive *NA* (05/31/20 8:32 AM) Negative 05/31/2020 [facility] DRUG SCREEN U Opiate Scr Nega tive *NA* (05/31/20 8:32 AM) Negative 05/31/2020 [facility] DRUG SCREEN U Phencyclidine Scr Nega tive *NA* (05/31/20 8:32 AM) Negative 05/31/2020 [facility] DRUG SCREEN UDS Note See Note *NA* (05/31/20 8:32 AM) 05/31/2020 [facility] HEMATOLOGY PT 14.4 12.0 - 14.7 05/31/2020 [facility] HEMATOLOGY INR 1.11 0.85 - 1.17 05/31/2020 [facility] HEMATOLOGY PTT 31.2 22.9 - 35.8 05/31/2020 [facility] SPECIAL CHEMISTRY Hgb A1C <3.5 % <=5.6 % 05/31/2020 [facility] TOXICOLOGY Ethanol Lvl <3 05/31/2020 [facility] TOXICOLOGY Etoh (%) <0.003 05/31/2020 [facility] URINE AND STOOL UA Color Yellow *NA* (05/31/20 8:32 AM) Yellow 05/31/2020 [facility] URINE AND STOOL UA Turbidity Clear (05/31/20 8:32 AM) Clear 05/31/2020 [facility] URINE AND STOOL UA Spec Grav 1.015 <=1.030 05/31/2020 [facility] URINE AND STOOL UA pH 8.5 5.0 - 8.0 05/31/2020 [facility] URINE AND STOOL UA Protein 100 mg/dL Negative mg/dL 05/31/2020 [facility] URINE AND STOOL UA Glucose Negative (05/31/20 8:32 AM) Negative 05/31/2020 [facility] URINE AND STOOL UA Ketones Negative *NA* (05/31/20 8:32 AM) Negative 05/31/2020 [facility] URINE AND STOOL UA Bili Negative *NA* (05/31/20 8:32 AM) Negative 05/31/2020 [facility] URINE AND STOOL UA Blood Negative (05/31/20 8:32 AM) Negative 05/31/2020 [facility] URINE AND STOOL UA Urobilinogen 0.2 0.1 - 1.0 05/31/2020 [facility] URINE AND STOOL UA Nitrite Negative (05/31/20 8:32 AM) Negative 05/31/2020 [facility] URINE AND STOOL UA Leuk Est Negative (05/31/20 8:32 AM) Negative 05/31/2020 [facility] URINE AND STOOL UA Sq Epi None Seen (05/31/20 8:32 AM) Few 05/31/2020 [facility] HEMATOLOGY Segs 65.7 45.0 - 75.0 05/24/2020 [facility] HEMATOLOGY Lymphocytes 20.1 20.0 - 40.0 05/24/2020 [facility] HEMATOLOGY Monocytes 9.2 2.0 - 12.0 05/24/2020 [facility] HEMATOLOGY Eosinophils 4.5 0.0 - 4.0 05/24/2020 [facility] HEMATOLOGY Basophils 0.5 0.0 - 1.0 05/24/2020 [facility] HEMATOLOGY Neutrophils # 4.9 1.5 - 8.1 05/24/2020 [facility] HEMATOLOGY Lymphocytes # 1.5 1.0 - 5.5 05/24/2020 [facility] HEMATOLOGY Monocytes # 0.7 0.0 - 0.8 05/24/2020 [facility] HEMATOLOGY Eosinophils # 0.3 0.0 - 0.5 05/24/[address] [facility] Macrocyte 1+ *ABN* (05/24/20 4:28 AM) None Seen 05/24/2020 [facility] HEMATOLOGY WBC 7.4 3.7 - 10.4 05/24/[address] [facility] RBC 2.98 4.20 - 5.40 05/24/[address] [facility] Hgb 9.8 12.0 - 16.0 05/24/[address] [facility] Hct 29.8 36.0 - 48.0 05/24/[address] [facility] MCV 99.8 80.0 - 98.0 05/24/[address] [facility] MCH 32.8 27.0 - 31.0 05/24/[address] [facility] MCHC 32.9 32.0 - 36.0 05/24/[address] [facility] RDW 15.0 11.5 - 14.5 05/24/[address] [facility] Platelet 114 133 - 450 05/24/[address] [facility] MPV 8.3 7.4 - 10.4 05/24/2020 [facility] CARDIAC ENZYMES Troponin-I <0.02 0.00 - 0.40 05/24/2020 [facility] SPECIAL CHEMISTRY Hgb A1C 5.0 <=5.6 % 05/24/2020 [facility] IMMUNOLOGY Coronavirus (COVID-19) NA A Not Detected (05/23/20 8:51 PM) Not Detected 05/24/2020 [facility] URINE AND STOOL UA Turbidity Slight *ABN* (05/23/20 2:19 PM) Clear 05/23/2020 [facility] URINE AND STOOL UA Spec Grav 1.025 <=1.030 05/23/2020 [facility] URINE AND STOOL UA pH 5.0 5.0 - 8.0 05/23/2020 [facility] URINE AND STOOL UA Protein 100 mg/dL Negative mg/dL 05/23/2020 [facility] URINE AND STOOL UA Glucose Negative mg/dL Negative mg/dL 05/23/2020 [facility] URINE AND STOOL UA Ketones Negative mg/dL Negative mg/dL 05/23/2020 [facility] URINE AND STOOL UA Bili Negative *NA* (05/23/20 2:19 PM) Negative 05/23/2020 [facility] URINE AND STOOL UA Blood Moderate *ABN* (05/23/20 2:19 PM) Negative 05/23/2020 [facility] URINE AND STOOL UA Urobilinogen 4.0 0.1 - 1.0 05/23/2020 [facility] URINE AND STOOL UA Nitrite Negative (05/23/20 2:19 PM) Negative 05/23/2020 [facility] URINE AND STOOL UA Leuk Est Negative (05/23/20 2:19 PM) Negative 05/23/2020 [facility] URINE AND STOOL UA Sq Epi Many /LPF Few /LPF 05/23/2020 [facility] URINE AND STOOL UA WBC 3 0 - 5 05/23/2020 [facility] URINE AND STOOL UA RBC 6 0 - 2 05/23/2020 [facility] URINE AND STOOL UA Bacteria Occasional /HPF None Seen /HPF 05/23/2020 [facility] URINE AND STOOL UA Mucus Few /LPF None Seen /LPF 05/23/2020 [facility] URINE AND STOOL UA Color Renate 05/23/2020 [facility] CARDIAC ENZYMES Troponin-I <0.02 0.00 - 0.40 05/23/2020 [facility] CHEM PANEL Glucose Lvl 178 70 - 99 05/23/2020 [facility] CHEM PANEL BUN 49 7 - 22 05/23/2020 [facility] CHEM PANEL Creatinine Lvl 6.01 0.50 - 1.40 05/23/2020 [facility] CHEM PANEL Sodium Lvl 135 135 - 145 05/23/2020 [facility] CHEM PANEL Potassium Lvl 4.9 3.5 - 5.1 05/23/2020 [facility] CHEM PANEL Chloride Lvl 102 95 - 109 05/23/2020 [facility] CHEM PANEL CO2 28 24 - 32 05/23/2020 [facility] CHEM PANEL Calcium Lvl 9.1 8.5 - 10.5 05/23/2020 [facility] CHEM PANEL Total Protein 8.4 6.4 - 8.4 05/23/2020 [facility] CHEM PANEL Albumin Lvl 3.5 3.5 - 5.0 05/23/2020 [facility] CHEM PANEL ALT 22 0 - 65 05/23/2020 [facility] CHEM PANEL AST 35 0 - 37 05/23/2020 [facility] CHEM PANEL Alk Phos 137 39 - 136 05/23/2020 [facility] CHEM PANEL Bili Total 0.6 0.2 - 1.3 05/23/2020 [facility] CHEM PANEL AGAP 9.9 10.0 - 20.0 05/23/2020 [facility] CHEM PANEL B/C Ratio 8 6 - 25 05/23/2020 [facility] CHEM PANEL Globulin 4.9 2.7 - 4.2 05/23/2020 [facility] CHEM PANEL A/G Ratio 0.7 0.7 - 1.6 05/23/2020 [facility] CHEM PANEL eGFR 7 05/23/2020 Result Comment: The eGFR is calculated using the CKD-EPI formula. In most young, healthy individuals the eGFR will be >90 mL/min/1.73m2. The eGFR declines with age. An eGFR of 60-89 may be normal in some populations, particularly the elderly, for whom the CKD-EPI formula has not been extensively validated. Use of the eGFR is not recommended in the following populations:

Individuals with unstable creatinine concentrations, including patients and those with serious co-morbid conditions.

Patients with extremes in muscle mass or diet.

The data above are obtained from the National Kidney Disease Education Program (NKDEP) which additionally recommends that when the eGFR is used in patients with extremes of body mass index for purposes of drug dosing, the eGFR should be multiplied by the estimated BMI. [facility] HEMATOLOGY WBC 11.3 3.7 - 10.4 05/23/2020 [facility] HEMATOLOGY RBC 3.17 4.20 - 5.40 05/23/2020 [facility] HEMATOLOGY Hgb 10.4 12.0 - 16.0 05/23/2020 [facility] HEMATOLOGY Hct 32.0 36.0 - 48.0 05/23/2020 [facility] HEMATOLOGY MCV 101.1 80.0 - 98.0 05/23/[address] [facility] MCH 32.9 27.0 - 31.0 05/23/[address] [facility] MCHC 32.5 32.0 - 36.0 05/23/[address] [facility] RDW 15.0 11.5 - 14.5 05/23/[address] [facility] Platelet 141 133 - 450 05/23/2020 [facility] HEMATOLOGY MPV 8.5 7.4 - 10.4 05/23/2020 [facility] HEMATOLOGY Segs 80.7 45.0 - 75.0 05/23/2020 [facility] HEMATOLOGY Lymphocytes 8.7 20.0 - 40.0 05/23/2020 [facility] HEMATOLOGY Monocytes 8.1 2.0 - 12.0 05/23/2020 [facility] HEMATOLOGY Eosinophils 2.4 0.0 - 4.0 05/23/2020 [facility] HEMATOLOGY Basophils 0.1 0.0 - 1.0 05/23/2020 [facility] HEMATOLOGY Neutrophils # 9.1 1.5 - 8.1 05/23/2020 [facility] HEMATOLOGY Lymphocytes # 1.0 1.0 - 5.5 05/23/2020 [facility] HEMATOLOGY Monocytes # 0.9 0.0 - 0.8 05/23/2020 [facility] HEMATOLOGY Eosinophils # 0.3 0.0 - 0.5 05/23/2020 [facility] HEMATOLOGY Macrocyte 1+ *ABN* (05/23/20 11:55 AM) None Seen 05/23/2020 [facility] CARDIAC ENZYMES Troponin-I <0.02 0.00 - 0.40 12/30/2019 [facility] CHEM PANEL Glucose Lvl 210 70 - 99 12/30/2019 [facility] CHEM PANEL BUN 25 7 - 22 12/30/2019 [facility] CHEM PANEL Creatinine Lvl 4.49 0.50 - 1.40 12/30/2019 [facility] CHEM PANEL Sodium Lvl 135 135 - 145 12/30/2019 [facility] CHEM PANEL Potassium Lvl 4.4 3.5 - 5.1 12/30/2019 [facility] CHEM PANEL Chloride Lvl 99 95 - 109 12/30/2019 [facility] CHEM PANEL CO2 30 24 - 32 12/30/2019 [facility] CHEM PANEL Calcium Lvl 9.4 8.5 - 10.5 12/30/2019 [facility] CHEM PANEL Total Protein 9.1 6.4 - 8.4 12/30/2019 [facility] CHEM PANEL Albumin Lvl 3.5 3.5 - 5.0 12/30/2019 [facility] CHEM PANEL ALT 27 0 - 65 12/30/2019 [facility] CHEM PANEL AST 45 0 - 37 12/30/2019 [facility] CHEM PANEL Alk Phos 188 39 - 136 12/30/2019 [facility] CHEM PANEL Bili Total 0.6 0.2 - 1.3 12/30/2019 [facility] CHEM PANEL AGAP 10.4 10.0 - 20.0 12/30/2019 [facility] CHEM PANEL B/C Ratio 6 6 - 25 12/30/2019 [facility] CHEM PANEL Globulin 5.6 2.7 - 4.2 12/30/2019 [facility] CHEM PANEL A/G Ratio 0.6 0.7 - 1.6 12/30/2019 [facility] CHEM PANEL eGFR 10 12/30/2019 Result Comment: The eGFR is calculated using the CKD-EPI formula. In most young, healthy individuals the eGFR will be >90 mL/min/1.73m2. The eGFR declines with age. An eGFR of 60-89 may be normal in some populations, particularly the elderly, for whom the CKD-EPI formula has not been extensively validated. Use of the eGFR is not recommended in the following populations:

Individuals with unstable creatinine concentrations, including patients and those with serious co-morbid conditions.

Patients with extremes in muscle mass or diet.

The data above are obtained from the National Kidney Disease Education Program (NKDEP) which additionally recommends that when the eGFR is used in patients with extremes of body mass index for purposes of drug dosing, the eGFR should be multiplied by the estimated BMI. [facility] CHEM PANEL Magnesium Lvl 2.2 1.8 - 2.4 12/30/2019 [facility] CHEM PANEL Phosphorus 4.4 2.5 - 4.5 12/30/2019 [facility] HEMATOLOGY WBC 5.2 3.7 - 10.4 12/30/2019 [facility] HEMATOLOGY RBC 4.20 4.20 - 5.40 12/30/2019 [facility] HEMATOLOGY Hgb 13.7 12.0 - 16.0 12/30/2019 [facility] HEMATOLOGY Hct 41.8 36.0 - 48.0 12/30/2019 [facility] HEMATOLOGY MCV 99.4 80.0 - 98.0 12/30/2019 [facility] HEMATOLOGY MCH 32.6 27.0 - 31.0 12/30/[address] [facility] MCHC 32.8 32.0 - 36.0 12/30/[address] [facility] RDW 15.8 11.5 - 14.5 12/30/[address] [facility] Platelet 125 133 - 450 12/30/[address] [facility] MPV 8.9 7.4 - 10.4 12/30/2019 [facility] HEMATOLOGY PT 13.2 12.0 - 14.7 12/30/2019 [facility] HEMATOLOGY INR 1.00 0.85 - 1.17 12/30/2019 [facility] HEMATOLOGY PTT 31.1 22.9 - 35.8 12/30/2019 [facility] HEMATOLOGY Segs 54.8 45.0 - 75.0 12/30/2019 [facility] HEMATOLOGY Lymphocytes 22.6 20.0 - 40.0 12/30/2019 [facility] HEMATOLOGY Monocytes 9.7 2.0 - 12.0 12/30/2019 [facility] HEMATOLOGY Eosinophils 12.4 0.0 - 4.0 12/30/2019 [facility] HEMATOLOGY Basophils 0.5 0.0 - 1.0 12/30/2019 [facility] HEMATOLOGY Neutrophils # 2.9 1.5 - 8.1 12/30/2019 [facility] HEMATOLOGY Lymphocytes # 1.2 1.0 - 5.5 12/30/2019 [facility] HEMATOLOGY Monocytes # 0.5 0.0 - 0.8 12/30/2019 [facility] HEMATOLOGY Eosinophils # 0.6 0.0 - 0.5 12/30/2019 [facility] HEMATOLOGY Macrocyte 1+ *ABN* (12/30/19 11:31 AM) None Seen 12/30/2019 [facility] CHEM PANEL Glucose Lvl 253 70 - 99 12/11/2019 [facility] CHEM PANEL BUN 16 7 - 22 12/11/2019 [facility] CHEM PANEL Creatinine Lvl 4.50 0.50 - 1.40 12/11/2019 [facility] CHEM PANEL Sodium Lvl 138 135 - 145 12/11/2019 [facility] CHEM PANEL Potassium Lvl 3.7 3.5 - 5.1 12/11/2019 [facility] CHEM PANEL Chloride Lvl 100 95 - 109 12/11/2019 [facility] CHEM PANEL CO2 32 24 - 32 12/11/2019 [facility] CHEM PANEL Calcium Lvl 9.3 8.5 - 10.5 12/11/2019 [facility] CHEM PANEL Total Protein 8.5 6.4 - 8.4 12/11/2019 [facility] CHEM PANEL Albumin Lvl 3.3 3.5 - 5.0 12/11/2019 [facility] CHEM PANEL ALT 18 0 - 65 12/11/2019 [facility] CHEM PANEL AST 25 0 - 37 12/11/2019 [facility] CHEM PANEL Alk Phos 165 39 - 136 12/11/2019 [facility] CHEM PANEL Bili Total 0.6 0.2 - 1.3 12/11/2019 [facility] CHEM PANEL AGAP 9.7 10.0 - 20.0 12/11/2019 [facility] CHEM PANEL B/C Ratio 4 6 - 25 12/11/2019 [facility] CHEM PANEL Globulin 5.2 2.7 - 4.2 12/11/2019 [facility] CHEM PANEL A/G Ratio 0.6 0.7 - 1.6 12/11/2019 [facility] CHEM PANEL eGFR 9 12/11/2019 Result Comment: The eGFR is calculated using the CKD-EPI formula. In most young, healthy individuals the eGFR will be >90 mL/min/1.73m2. The eGFR declines with age. An eGFR of 60-89 may be normal in some populations, particularly the elderly, for whom the CKD-EPI formula has not been extensively validated. Use of the eGFR is not recommended in the following populations:

Individuals with unstable creatinine concentrations, including patients and those with serious co-morbid conditions.

Patients with extremes in muscle mass or diet.

The data above are obtained from the National Kidney Disease Education Program (NKDEP) which additionally recommends that when the eGFR is used in patients with extremes of body mass index for purposes of drug dosing, the eGFR should be multiplied by the estimated BMI. [facility] CHEM PANEL Lipase Lvl 95 73 - 393 12/11/2019 [facility] HEMATOLOGY WBC 4.7 3.7 - 10.4 12/11/2019 [facility] HEMATOLOGY RBC 3.46 4.20 - 5.40 12/11/2019 [facility] HEMATOLOGY Hgb 11.2 12.0 - 16.0 12/11/2019 [facility] HEMATOLOGY Hct 33.8 36.0 - 48.0 12/11/2019 [facility] HEMATOLOGY MCV 97.7 80.0 - 98.0 12/11/2019 [facility] HEMATOLOGY MCH 32.3 27.0 - 31.0 12/11/[address] [facility] MCHC 33.1 32.0 - 36.0 12/11/[address] [facility] RDW 14.5 11.5 - 14.5 12/11/[address] [facility] Platelet 130 133 - 450 12/11/[address] [facility] MPV 8.7 7.4 - 10.4 12/11/2019 [facility] HEMATOLOGY Segs 53.7 45.0 - 75.0 12/11/2019 [facility] HEMATOLOGY Lymphocytes 23.6 20.0 - 40.0 12/11/2019 [facility] HEMATOLOGY Monocytes 10.0 2.0 - 12.0 12/11/2019 [facility] HEMATOLOGY Eosinophils 12.2 0.0 - 4.0 12/11/2019 [facility] HEMATOLOGY Basophils 0.5 0.0 - 1.0 12/11/2019 [facility] HEMATOLOGY Neutrophils # 2.5 1.5 - 8.1 12/11/2019 [facility] HEMATOLOGY Lymphocytes # 1.1 1.0 - 5.5 12/11/2019 [facility] HEMATOLOGY Monocytes # 0.5 0.0 - 0.8 12/11/2019 [facility] HEMATOLOGY Eosinophils # 0.6 0.0 - 0.5 12/11/2019 [facility] CHEM PANEL Glucose Lvl 155 70 - 99 11/25/2019 [facility] CHEM PANEL BUN 17 7 - 22 11/25/2019 [facility] CHEM PANEL Creatinine Lvl 4.76 0.50 - 1.40 11/25/2019 [facility] CHEM PANEL Sodium Lvl 136 135 - 145 11/25/2019 [facility] CHEM PANEL Potassium Lvl 4.0 3.5 - 5.1 11/25/2019 [facility] CHEM PANEL Chloride Lvl 101 95 - 109 11/25/2019 [facility] CHEM PANEL CO2 29 24 - 32 11/25/2019 [facility] CHEM PANEL Calcium Lvl 8.7 8.5 - 10.5 11/25/2019 [facility] CHEM PANEL Total Protein 8.7 6.4 - 8.4 11/25/2019 [facility] CHEM PANEL Albumin Lvl 3.4 3.5 - 5.0 11/25/2019 [facility] CHEM PANEL ALT 20 0 - 65 11/25/2019 [facility] CHEM PANEL AST 30 0 - 37 11/25/2019 [facility] CHEM PANEL Alk Phos 180 39 - 136 11/25/2019 [facility] CHEM PANEL Bili Total 0.5 0.2 - 1.3 11/25/2019 [facility] CHEM PANEL AGAP 10.0 10.0 - 20.0 11/25/2019 [facility] CHEM PANEL B/C Ratio 4 6 - 25 11/25/2019 [facility] CHEM PANEL Globulin 5.3 2.7 - 4.2 11/25/2019 [facility] CHEM PANEL A/G Ratio 0.6 0.7 - 1.6 11/25/2019 [facility] CHEM PANEL eGFR 9 11/25/2019 Result Comment: The eGFR is calculated using the CKD-EPI formula. In most young, healthy individuals the eGFR will be >90 mL/min/1.73m2. The eGFR declines with age. An eGFR of 60-89 may be normal in some populations, particularly the elderly, for whom the CKD-EPI formula has not been extensively validated. Use of the eGFR is not recommended in the following populations:

Individuals with unstable creatinine concentrations, including patients and those with serious co-morbid conditions.

Patients with extremes in muscle mass or diet.

The data above are obtained from the National Kidney Disease Education Program (NKDEP) which additionally recommends that when the eGFR is used in patients with extremes of body mass index for purposes of drug dosing, the eGFR should be multiplied by the estimated BMI. [facility] HEMATOLOGY PT 13.2 12.0 - 14.7 11/25/[address] [facility] INR 1.00 0.85 - 1.17 11/25/[address] [facility] PTT 33.5 22.9 - 35.8 11/25/[address] [facility] WBC 4.0 3.7 - 10.4 11/25/[address] [facility] RBC 3.84 4.20 - 5.40 11/25/[address] [facility] Hgb 12.6 12.0 - 16.0 11/25/[address] [facility] Hct 37.6 36.0 - 48.0 11/25/[address] [facility] MCV 97.9 80.0 - 98.0 11/25/[address] [facility] MCH 32.7 27.0 - 31.0 11/25/[address] [facility] MCHC 33.4 32.0 - 36.0 11/25/[address] [facility] RDW 16.5 11.5 - 14.5 11/25/[address] [facility] Platelet 87 133 - 450 11/25/[address] [facility] MPV 8.7 7.4 - 10.4 11/25/[address] [facility] Segs 50.2 45.0 - 75.0 11/25/[address] [facility] Lymphocytes 26.7 20.0 - 40.0 11/25/[address] [facility] Monocytes 12.2 2.0 - 12.0 11/25/2019 [facility] HEMATOLOGY Eosinophils 10.3 0.0 - 4.0 11/25/2019 [facility] HEMATOLOGY Basophils 0.6 0.0 - 1.0 11/25/2019 [facility] HEMATOLOGY Neutrophils # 2.0 1.5 - 8.1 11/25/2019 [facility] HEMATOLOGY Lymphocytes # 1.1 1.0 - 5.5 11/25/2019 [facility] HEMATOLOGY Monocytes # 0.5 0.0 - 0.8 11/25/2019 [facility] HEMATOLOGY Eosinophils # 0.4 0.0 - 0.5 11/25/2019 [facility] CHEM PANEL Total Protein 8.2 6.4 - 8.4 11/24/2019 [facility] CHEM PANEL Albumin Lvl 3.2 3.5 - 5.0 11/24/2019 [facility] CHEM PANEL ALT 18 0 - 65 11/24/2019 [facility] CHEM PANEL AST 29 0 - 37 11/24/2019 [facility] CHEM PANEL Alk Phos 155 39 - 136 11/24/2019 [facility] CHEM PANEL Bili Total 0.3 0.2 - 1.3 11/24/2019 [facility] CHEM PANEL Bili Direct 0.2 0.0 - 0.3 11/24/2019 [facility] CHEM PANEL Globulin 5.0 2.7 - 4.2 11/24/2019 [facility] CHEM PANEL A/G Ratio 0.6 0.7 - 1.6 11/24/2019 [facility] CHEM PANEL Bili Indirect 0.1 0.0 - 1.0 11/24/2019 [facility] CHEM PANEL Ammonia 39.0 <=45.0 uMol/L 11/24/2019 [facility] Hep Bs Ag Negat zaria *NA* (11/23/19 7:37 PM) Negative 11/24/2019 [facility] IMMUNOLOGY Hep B Core IgM Negat zaria *NA* (11/23/19 7:37 PM) Negative 11/24/2019 [facility] Hep A IgM Negat zaria *NA* (11/23/19 7:37 PM) Negative 11/24/2019 [facility] Hep C Ab Posit zaria *ABN* (11/23/19 7:37 PM) Negative 11/24/2019 [facility] HCV Genotype 2b 11/24/2019 [facility] HCV Genotype Comment Comm ent 11/24/2019 Result Comment:
This test was kassandra miles and its performance characteristics
determined by [facility]. It has not been cleared or approved
by the [place] Food and Drug Administration.

The FDA has determined that such clearance or approval is
not necessary. This test is used for clinical purposes. It
should not be regarded as investigational or for research.
Performed At: [facility] [facility]
[id number], [place] [id number]
Raheel Melendez MD Ph:[phone] [facility] MOLECULAR DIAGNOSTIC HCV RNA VirLoad [id number] 11/24/2019 [facility] MOLECULAR DIAGNOSTIC HCV RNA Log10 6.0 11/24/2019 [facility] TUMOR MARKERS AFP 1.9 0.0 - 11.0 11/24/2019 [facility] CHEM PANEL Glucose Lvl 188 70 - 99 11/22/2019 [facility] CHEM PANEL BUN 18 7 - 22 11/22/2019 [facility] CHEM PANEL Creatinine Lvl 5.15 0.50 - 1.40 11/22/2019 [facility] CHEM PANEL Sodium Lvl 136 135 - 145 11/22/2019 [facility] CHEM PANEL Potassium Lvl 3.7 3.5 - 5.1 11/22/2019 [facility] CHEM PANEL Chloride Lvl 99 95 - 109 11/22/2019 [facility] CHEM PANEL CO2 30 24 - 32 11/22/2019 [facility] CHEM PANEL Calcium Lvl 9.0 8.5 - 10.5 11/22/2019 [facility] CHEM PANEL AGAP 10.7 10.0 - 20.0 11/22/2019 [facility] CHEM PANEL eGFR 8 11/22/2019 Result Comment: The eGFR is calculated using the CKD-EPI formula. In most young, healthy individuals the eGFR will be >90 mL/min/1.73m2. The eGFR declines with age. An eGFR of 60-89 may be normal in some populations, particularly the elderly, for whom the CKD-EPI formula has not been extensively validated. Use of the eGFR is not recommended in the following populations:

Individuals with unstable creatinine concentrations, including patients and those with serious co-morbid conditions.

Patients with extremes in muscle mass or diet.

The data above are obtained from the National Kidney Disease Education Program (NKDEP) which additionally recommends that when the eGFR is used in patients with extremes of body mass index for purposes of drug dosing, the eGFR should be multiplied by the estimated BMI. [facility] WBC 5.6 3.7 - 10.4 11/22/[address] [facility] RBC 3.66 4.20 - 5.40 11/22/[address] [facility] Hgb 12.1 12.0 - 16.0 11/22/[address] [facility] Hct 36.3 36.0 - 48.0 11/22/[address] [facility] MCV 99.2 80.0 - 98.0 11/22/[address] [facility] MCH 33.0 27.0 - 31.0 11/22/[address] [facility] MCHC 33.2 32.0 - 36.0 11/22/[address] [facility] RDW 16.7 11.5 - 14.5 11/22/[address] [facility] Platelet 112 133 - 450 11/22/[address] [facility] MPV 8.5 7.4 - 10.4 11/22/[address] [facility] Segs 58.5 45.0 - 75.0 11/22/[address] [facility] Lymphocytes 23.7 20.0 - 40.0 11/22/[address] [facility] Monocytes 10.1 2.0 - 12.0 11/22/[address] [facility] Eosinophils 7.3 0.0 - 4.0 11/22/[address] [facility] Basophils 0.4 0.0 - 1.0 11/22/[address] [facility] Neutrophils # 3.3 1.5 - 8.1 11/22/[address] [facility] Lymphocytes # 1.3 1.0 - 5.5 11/22/[address] [facility] Monocytes # 0.6 0.0 - 0.8 11/22/[address] [facility] Eosinophils # 0.4 0.0 - 0.5 11/22/[address] [facility] Macrocyte 1+ *ABN* (11/22/19 12:32 PM) None Seen 11/22/2019 [facility] IMMUNOLOGY Hep Bs Ag Negat zaria *NA* (11/21/19 5:19 PM) Negative 11/21/2019 [facility] MOLECULAR DIAGNOSTIC Source Respirat ory Panel PCR Nasophrngl Swb *NA* (11/21/19 3:28 PM) 11/21/2019 [facility] MOLECULAR DIAGNOSTIC Influenza A PCR Negative *NA* (11/21/19 3:28 PM) Negative 11/21/2019 [facility] MOLECULAR DIAGNOSTIC Influenza B PCR Negative *NA* (11/21/19 3:28 PM) Negative 11/21/2019 [facility] MOLECULAR DIAGNOSTIC RSV PCR Negative *NA* (11/21/19 3:28 PM) Negative 11/21/2019 [facility] CARDIAC ENZYMES Total CK 89 12 - 191 11/21/2019 [facility] CARDIAC ENZYMES Troponin-I <0.02 0.00 - 0.40 11/21/2019 [facility] CHEM PANEL Glucose Lvl 117 70 - 99 11/21/2019 [facility] CHEM PANEL BUN 26 7 - 22 11/21/2019 [facility] CHEM PANEL Creatinine Lvl 6.19 0.50 - 1.40 11/21/2019 [facility] CHEM PANEL Sodium Lvl 137 135 - 145 11/21/2019 [facility] CHEM PANEL Potassium Lvl 4.5 3.5 - 5.1 11/21/2019 [facility] CHEM PANEL Chloride Lvl 99 95 - 109 11/21/2019 [facility] CHEM PANEL CO2 32 24 - 32 11/21/2019 [facility] CHEM PANEL Calcium Lvl 9.1 8.5 - 10.5 11/21/2019 [facility] CHEM PANEL Total Protein 9.1 6.4 - 8.4 11/21/2019 [facility] CHEM PANEL Albumin Lvl 3.7 3.5 - 5.0 11/21/2019 [facility] CHEM PANEL ALT 27 0 - 65 11/21/2019 [facility] CHEM PANEL AST 51 0 - 37 11/21/2019 [facility] CHEM PANEL Alk Phos 171 39 - 136 11/21/2019 [facility] CHEM PANEL Bili Total 0.6 0.2 - 1.3 11/21/2019 [facility] CHEM PANEL AGAP 10.5 10.0 - 20.0 11/21/2019 [facility] CHEM PANEL B/C Ratio 4 6 - 25 11/21/2019 [facility] CHEM PANEL Globulin 5.4 2.7 - 4.2 11/21/2019 [facility] CHEM PANEL A/G Ratio 0.7 0.7 - 1.6 11/21/2019 [facility] CHEM PANEL eGFR 6 11/21/2019 Result Comment: The eGFR is calculated using the CKD-EPI formula. In most young, healthy individuals the eGFR will be >90 mL/min/1.73m2. The eGFR declines with age. An eGFR of 60-89 may be normal in some populations, particularly the elderly, for whom the CKD-EPI formula has not been extensively validated. Use of the eGFR is not recommended in the following populations:

Individuals with unstable creatinine concentrations, including patients and those with serious co-morbid conditions.

Patients with extremes in muscle mass or diet.

The data above are obtained from the National Kidney Disease Education Program (NKDEP) which additionally recommends that when the eGFR is used in patients with extremes of body mass index for purposes of drug dosing, the eGFR should be multiplied by the estimated BMI. [facility] CHEM PANEL Ammonia 34.0 <=45.0 uMol/L 11/21/2019 [facility] CHEM PANEL Lactic Acid Lvl 1.2 0.5 - 2.2 11/21/[address] [facility] WBC 7.6 3.7 - 10.4 11/21/[address] [facility] RBC 3.64 4.20 - 5.40 11/21/[address] [facility] Hgb 11.8 12.0 - 16.0 11/21/[address] [facility] Hct 35.8 36.0 - 48.0 11/21/[address] [facility] MCV 98.5 80.0 - 98.0 11/21/[address] [facility] MCH 32.4 27.0 - 31.0 11/21/[address] [facility] MCHC 32.9 32.0 - 36.0 11/21/[address] [facility] RDW 17.1 11.5 - 14.5 11/21/[address] [facility] Platelet 123 133 - 450 11/21/[address] [facility] MPV 9.1 7.4 - 10.4 11/21/[address] [facility] PT 13.5 12.0 - 14.7 11/21/[address] [facility] INR 1.03 0.85 - 1.17 11/21/[address] [facility] PTT 27.5 22.9 - 35.8 11/21/[address] [facility] RBC Morph Cathy l (11/21/19 10:14 AM) Normal 11/21/[address] [facility] Segs 63.1 45.0 - 75.0 11/21/[address] [facility] Lymphocytes 21.1 20.0 - 40.0 11/21/2019 [facility] HEMATOLOGY Monocytes 9.2 2.0 - 12.0 11/21/2019 [facility] HEMATOLOGY Eosinophils 5.9 0.0 - 4.0 11/21/2019 [facility] HEMATOLOGY Basophils 0.7 0.0 - 1.0 11/21/2019 [facility] HEMATOLOGY Neutrophils # 4.8 1.5 - 8.1 11/21/2019 [facility] HEMATOLOGY Lymphocytes # 1.6 1.0 - 5.5 11/21/2019 [facility] HEMATOLOGY Monocytes # 0.7 0.0 - 0.8 11/21/2019 [facility] HEMATOLOGY Eosinophils # 0.4 0.0 - 0.5 11/21/2019 [facility] HEMATOLOGY Basophils # 0.1 0.0 - 0.2 11/21/2019 [facility] HEMATOLOGY Large Plt slight 11/21/2019 [facility] IMIPENEM:SUSC:PT:ISOLATE:ORDQN:RHONDA C ulture: Urine 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 Escherichia coli 11/21/2019 [facility] IMIPENEM:SUSC:PT:ISOLATE:ORDQN:RHONDA E scherichia coli Escherichia coli 11/21/2019 [facility] URINE AND STOOL UA Color Yellow *NA* (11/21/19 10:14 AM) Yellow 11/21/2019 [facility] URINE AND STOOL UA Turbidity Marked *ABN* (11/21/19 10:14 AM) Clear 11/21/2019 [facility] URINE AND STOOL UA Spec Grav 1.023 <=1.030 11/21/2019 [facility] URINE AND STOOL UA pH 6.0 5.0 - 8.0 11/21/2019 [facility] URINE AND STOOL UA Protein 100 mg/dL Negative mg/dL 11/21/2019 [facility] URINE AND STOOL UA Glucose Negative mg/dL Negative mg/dL 11/21/2019 [facility] URINE AND STOOL UA Ketones Negative mg/dL Negative mg/dL 11/21/2019 [facility] URINE AND STOOL UA Bili Negative *NA* (11/21/19 10:14 AM) Negative 11/21/[facility] URINE AND STOOL UA Blood Moderate *ABN* (11/21/19 10:14 AM) Negative 11/21/2019 [facility] URINE AND STOOL UA Nitrite Negative (11/21/19 10:14 AM) Negative 11/21/2019 [facility] URINE AND STOOL UA Leuk Est Moderate *ABN* (11/21/19 10:14 AM) Negative 11/21/2019 [facility] URINE AND STOOL UA Sq Epi Few /LPF Few /LPF 11/21/2019 [facility] URINE AND STOOL UA WBC >182 0 - 5 11/21/2019 [facility] URINE AND STOOL UA RBC 18 0 - 2 11/21/2019 [facility] URINE AND STOOL UA Bacteria Moderate /HPF None Seen /HPF 11/21/2019 [facility] URINE AND STOOL UA Mucus Moderate /LPF None Seen /LPF 11/21/2019 [facility] URINE AND STOOL UA [place] Yeast Few /HPF None Seen /HPF 11/21/2019 [facility] URINE AND STOOL UA Urobilinogen <=1.0 mg/dL 0.1 - 1.0 11/21/2019 [facility] CARDIAC ENZYMES Total CK 82 12 - 191 09/03/2019 [facility] CARDIAC ENZYMES Troponin-I <0.02 0.00 - 0.40 09/03/2019 [facility] CHEM PANEL Glucose Lvl 172 70 - 99 09/03/2019 [facility] CHEM PANEL BUN 27 7 - 22 09/03/2019 [facility] CHEM PANEL Creatinine Lvl 5.43 0.50 - 1.40 09/03/2019 [facility] CHEM PANEL Sodium Lvl 138 135 - 145 09/03/2019 [facility] CHEM PANEL Potassium Lvl 4.7 3.5 - 5.1 09/03/2019 [facility] CHEM PANEL Chloride Lvl 100 95 - 109 09/03/2019 [facility] CHEM PANEL CO2 33 24 - 32 09/03/2019 [facility] CHEM PANEL Calcium Lvl 8.8 8.5 - 10.5 09/03/2019 [facility] CHEM PANEL Total Protein 8.5 6.4 - 8.4 09/03/2019 [facility] CHEM PANEL Albumin Lvl 3.4 3.5 - 5.0 09/03/2019 [facility] CHEM PANEL ALT 17 0 - 65 09/03/2019 [facility] CHEM PANEL AST 42 0 - 37 09/03/2019 [facility] CHEM PANEL Alk Phos 191 39 - 136 09/03/2019 [facility] CHEM PANEL Bili Total 0.7 0.2 - 1.3 09/03/2019 [facility] CHEM PANEL eGFR 8 09/03/2019 Result Comment: The eGFR is calculated using the CKD-EPI formula. In most young, healthy individuals the eGFR will be >90 mL/min/1.73m2. The eGFR declines with age. An eGFR of 60-89 may be normal in some populations, particularly the elderly, for whom the CKD-EPI formula has not been extensively validated. Use of the eGFR is not recommended in the following populations:

Individuals with unstable creatinine concentrations, including patients and those with serious co-morbid conditions.

Patients with extremes in muscle mass or diet.

The data above are obtained from the National Kidney Disease Education Program (NKDEP) which additionally recommends that when the eGFR is used in patients with extremes of body mass index for purposes of drug dosing, the eGFR should be multiplied by the estimated BMI. [facility] CHEM PANEL AGAP 9.7 10.0 - 20.0 09/03/2019 [facility] CHEM PANEL B/C Ratio 5 6 - 25 09/03/2019 [facility] CHEM PANEL Globulin 5.1 2.7 - 4.2 09/03/2019 [facility] CHEM PANEL A/G Ratio 0.7 0.7 - 1.6 09/03/[address] [facility] Segs 56.3 45.0 - 75.0 09/03/[address] [facility] Lymphocytes 22.5 20.0 - 40.0 09/03/[address] [facility] Monocytes 10.9 2.0 - 12.0 09/03/[address] [facility] Eosinophils 9.7 0.0 - 4.0 09/03/[address] [facility] Basophils 0.6 0.0 - 1.0 09/03/[address] [facility] Neutrophils # 2.3 1.5 - 8.1 09/03/[address] [facility] Lymphocytes # 0.9 1.0 - 5.5 09/03/[address] [facility] Monocytes # 0.4 0.0 - 0.8 09/03/[address] [facility] Eosinophils # 0.4 0.0 - 0.5 09/03/[address] [facility] Macrocyte 1+ *ABN* (09/03/19 10:12 AM) None Seen 09/03/[address] [facility] WBC 4.1 3.7 - 10.4 09/03/[address] [facility] RBC 3.46 4.20 - 5.40 09/03/[address] [facility] Hgb 11.4 12.0 - 16.0 09/03/[address] [facility] Hct 34.4 36.0 - 48.0 09/03/2019 [facility] HEMATOLOGY MCV 99.5 80.0 - 98.0 09/03/2019 [facility] HEMATOLOGY MCH 33.0 27.0 - 31.0 09/03/2019 [facility] HEMATOLOGY MCHC 33.2 32.0 - 36.0 09/03/2019 [facility] HEMATOLOGY RDW 14.2 11.5 - 14.5 09/03/2019 [facility] HEMATOLOGY Platelet 104 133 - 450 09/03/2019 [facility] HEMATOLOGY MPV 9.4 7.4 - 10.4 09/03/2019 [facility] HEMATOLOGY PT 13.1 12.0 - 14.7 09/03/2019 [facility] HEMATOLOGY PTT 31.9 22.9 - 35.8 09/03/2019 [facility] HEMATOLOGY INR 1.01 0.85 - 1.17 09/03/2019 [facility] URINE AND STOOL UA Bili Negative *NA* (04/03/19 8:02 PM) Negative 04/04/2019 [facility] URINE AND STOOL UA Blood Negative (04/03/19 8:02 PM) Negative 04/04/2019 [facility] URINE AND STOOL UA Ketones Negative mg/dL Negative mg/dL 04/04/2019 [facility] URINE AND STOOL UA Bacteria Occasional /HPF None Seen /HPF 04/04/2019 [facility] URINE AND STOOL UA WBC 9 0 - 5 04/04/2019 [facility] URINE AND STOOL UA Leuk Est Negative (04/03/19 8:02 PM) Negative 04/04/2019 [facility] URINE AND STOOL UA Sq Epi None Seen 04/04/2019 [facility] URINE AND STOOL UA Nitrite Negative (04/03/19 8:02 PM) Negative 04/04/2019 [facility] URINE AND STOOL UA Urobilinogen <=1.0 mg/dL 0.1 - 1.0 04/04/2019 [facility] URINE AND STOOL UA pH 8.0 5.0 - 8.0 04/04/2019 [facility] URINE AND STOOL UA Protein 100 mg/dL Negative mg/dL 04/04/2019 [facility] URINE AND STOOL UA Glucose 50 mg/dL Negative mg/dL 04/04/2019 [facility] URINE AND STOOL UA Color Yellow *NA* (04/03/19 8:02 PM) Yellow 04/04/2019 [facility] URINE AND STOOL UA Spec Grav 1.013 <=1.030 04/04/2019 [facility] URINE AND STOOL UA Turbidity Clear (04/03/19 8:02 PM) Clear 04/04/2019 [facility] IMMUNOLOGY Hep Bs Ag Negat zaria *NA* (04/03/19 7:10 PM) Negative 04/04/2019 [facility] CHEM PANEL Lactic Acid Lvl 1.3 0.5 - 2.2 04/03/2019 [facility] CARDIAC ENZYMES Total CK 69 12 - 191 04/03/2019 [facility] CARDIAC ENZYMES Troponin-I <0.02 0.00 - 0.40 04/03/2019 [facility] CHEM PANEL eGFR 6 04/03/2019 Result Comment: The eGFR is calculated using the CKD-EPI formula. In most young, healthy individuals the eGFR will be >90 mL/min/1.73m2. The eGFR declines with age. An eGFR of 60-89 may be normal in some populations, particularly the elderly, for whom the CKD-EPI formula has not been extensively validated. Use of the eGFR is not recommended in the following populations:

Individuals with unstable creatinine concentrations, including patients and those with serious co-morbid conditions.

Patients with extremes in muscle mass or diet.

The data above are obtained from the National Kidney Disease Education Program (NKDEP) which additionally recommends that when the eGFR is used in patients with extremes of body mass index for purposes of drug dosing, the eGFR should be multiplied by the estimated BMI. [facility] CHEM PANEL Albumin Lvl 3.0 3.5 - 5.0 04/03/2019 [facility] CHEM PANEL Total Protein 9.1 6.4 - 8.4 04/03/2019 [facility] CHEM PANEL B/C Ratio 6 6 - 25 04/03/2019 [facility] CHEM PANEL Calcium Lvl 8.7 8.5 - 10.5 04/03/2019 [facility] CHEM PANEL AGAP 16.4 10.0 - 20.0 04/03/2019 [facility] CHEM PANEL Chloride Lvl 99 95 - 109 04/03/2019 [facility] CHEM PANEL CO2 27 24 - 32 04/03/2019 [facility] CHEM PANEL Bili Total 0.5 0.2 - 1.3 04/03/2019 [facility] CHEM PANEL Alk Phos 278 39 - 136 04/03/2019 [facility] CHEM PANEL AST 41 0 - 37 04/03/2019 [facility] CHEM PANEL ALT 6 0 - 65 04/03/2019 [facility] CHEM PANEL Globulin 6.1 2.7 - 4.2 04/03/2019 [facility] CHEM PANEL A/G Ratio 0.5 0.7 - 1.6 04/03/2019 [facility] CHEM PANEL Sodium Lvl 137 135 - 145 04/03/2019 [facility] CHEM PANEL Creatinine Lvl 6.76 0.50 - 1.40 04/03/2019 [facility] CHEM PANEL BUN 39 7 - 22 04/03/2019 [facility] CHEM PANEL Glucose Lvl 105 70 - 99 04/03/2019 [facility] CHEM PANEL Potassium Lvl 5.4 3.5 - 5.1 04/03/2019 [facility] HEMATOLOGY Basophils # 0.1 0.0 - 0.2 04/03/2019 [facility] HEMATOLOGY Eosinophils # 0.2 0.0 - 0.5 04/03/2019 [facility] HEMATOLOGY Lymphocytes # 2.0 1.0 - 5.5 04/03/2019 [facility] HEMATOLOGY Monocytes # 0.8 0.0 - 0.8 04/03/2019 [facility] HEMATOLOGY Basophils 1.2 0.0 - 1.0 04/03/2019 [facility] HEMATOLOGY Eosinophils 1.4 0.0 - 4.0 04/03/2019 [facility] HEMATOLOGY Monocytes 6.6 2.0 - 12.0 04/03/2019 [facility] HEMATOLOGY Segs 75.3 45.0 - 75.0 04/03/2019 [facility] HEMATOLOGY Lymphocytes 15.5 20.0 - 40.0 04/03/[address] [facility] Neutrophils # 9.5 1.5 - 8.1 04/03/[address] [facility] PTT 34.2 22.9 - 35.8 04/03/[address] [facility] MCHC 31.9 32.0 - 36.0 04/03/[address] [facility] RDW 18.9 11.5 - 14.5 04/03/[address] [facility] MPV 9.3 7.4 - 10.4 04/03/[address] [facility] Platelet 106 133 - 450 04/03/[address] [facility] Hgb 12.4 12.0 - 16.0 04/03/[address] [facility] MCH 30.4 27.0 - 31.0 04/03/[address] [facility] Hct 38.9 36.0 - 48.0 04/03/[address] [facility] MCV 95.3 80.0 - 98.0 04/03/2019 [facility] HEMATOLOGY WBC 12.6 3.7 - 10.4 04/03/2019 [facility] HEMATOLOGY RBC 4.08 4.20 - 5.40 04/03/2019 [facility] HEMATOLOGY PT 13.7 12.0 - 14.7 04/03/2019 [facility] HEMATOLOGY INR 1.07 0.85 - 1.17 04/03/2019 [facility] CHEM PANEL Magnesium Lvl 2.2 1.8 - 2.4 03/10/2019 [facility] CHEM PANEL Phosphorus 3.8 2.5 - 4.5 03/10/2019 [facility] CHEM PANEL eGFR 6 03/10/2019 Result Comment: The eGFR is calculated using the CKD-EPI formula. In most young, healthy individuals the eGFR will be >90 mL/min/1.73m2. The eGFR declines with age. An eGFR of 60-89 may be normal in some populations, particularly the elderly, for whom the CKD-EPI formula has not been extensively validated. Use of the eGFR is not recommended in the following populations:

Individuals with unstable creatinine concentrations, including patients and those with serious co-morbid conditions.

Patients with extremes in muscle mass or diet.

The data above are obtained from the National Kidney Disease Education Program (NKDEP) which additionally recommends that when the eGFR is used in patients with extremes of body mass index for purposes of drug dosing, the eGFR should be multiplied by the estimated BMI. [facility] CHEM PANEL CO2 27 24 - 32 03/10/2019 [facility] CHEM PANEL Calcium Lvl 8.5 8.5 - 10.5 03/10/2019 [facility] CHEM PANEL Chloride Lvl 96 95 - 109 03/10/2019 [facility] CHEM PANEL Potassium Lvl 3.9 3.5 - 5.1 03/10/2019 [facility] CHEM PANEL Creatinine Lvl 6.53 0.50 - 1.40 03/10/2019 [facility] CHEM PANEL Glucose Lvl 241 70 - 99 03/10/2019 [facility] CHEM PANEL Sodium Lvl 135 135 - 145 03/10/2019 [facility] CHEM PANEL BUN 36 7 - 22 03/10/2019 [facility] CHEM PANEL AGAP 15.9 10.0 - 20.0 03/10/2019 [facility] HEMATOLOGY Platelet 139 133 - 450 03/10/2019 [facility] HEMATOLOGY MPV 8.7 7.4 - 10.4 03/10/[address] [facility] MCH 29.6 27.0 - 31.0 03/10/[address] [facility] MCV 91.7 80.0 - 98.0 03/10/[address] [facility] RDW 15.8 11.5 - 14.5 03/10/[address] [facility] MCHC 32.3 32.0 - 36.0 03/10/[address] [facility] WBC 7.1 3.7 - 10.4 03/10/[address] [facility] Hct 33.6 36.0 - 48.0 03/10/[address] [facility] RBC 3.67 4.20 - 5.40 03/10/[address] [facility] Hgb 10.9 12.0 - 16.0 03/10/2019 [facility] PARATHYROID PROFILE Ca Norm WB 1.06 1.05 - 1.25 03/10/2019 [facility] PARATHYROID PROFILE Ca Ion WB 1.04 1.05 - 1.25 03/10/2019 [facility] ELECTROLYTES Potassium Lvl 3.9 3.5 - 5.1 03/08/2019 [facility] ELECTROLYTES Calcium Lvl 8.4 8.5 - 10.5 03/08/2019 [facility] ELECTROLYTES AGAP 16.9 10.0 - 20.0 03/08/2019 [facility] ELECTROLYTES Chloride Lvl 100 95 - 109 03/08/2019 [facility] ELECTROLYTES CO2 23 24 - 32 03/08/2019 [facility] ELECTROLYTES Glucose Lvl 131 70 - 99 03/08/2019 [facility] ELECTROLYTES BUN 32 7 - 22 03/08/2019 [facility] Creatinine Lvl 5.4 5 0.50 - 1.40 03/08/2019 [facility] ELECTROLYTES Sodium Lvl 136 135 - 145 03/08/2019 [facility] ELECTROLYTES eGFR 8 03/08/2019 Result Comment: The eGFR is calculated using the CKD-EPI formula. In most young, healthy individuals the eGFR will be >90 mL/min/1.73m2. The eGFR declines with age. An eGFR of 60-89 may be normal in some populations, particularly the elderly, for whom the CKD-EPI formula has not been extensively validated. Use of the eGFR is not recommended in the following populations:

Individuals with unstable creatinine concentrations, including patients and those with serious co-morbid conditions.

Patients with extremes in muscle mass or diet.

The data above are obtained from the National Kidney Disease Education Program (NKDEP) which additionally recommends that when the eGFR is used in patients with extremes of body mass index for purposes of drug dosing, the eGFR should be multiplied by the estimated BMI. [facility] HEMATOLOGY Monocytes # 0.8 0.0 - 0.8 03/08/2019 [facility] HEMATOLOGY Eosinophils # 0.3 0.0 - 0.5 03/08/2019 [facility] HEMATOLOGY Lymphocytes # 1.3 1.0 - 5.5 03/08/2019 [facility] HEMATOLOGY Eosinophils 3.5 0.0 - 4.0 03/08/2019 [facility] HEMATOLOGY Neutrophils # 5.4 1.5 - 8.1 03/08/2019 [facility] HEMATOLOGY Monocytes 10.3 2.0 - 12.0 03/08/2019 [facility] HEMATOLOGY Basophils 0.5 0.0 - 1.0 03/08/[address] [facility] Segs 68.7 45.0 - 75.0 03/08/[address] [facility] Lymphocytes 17.0 20.0 - 40.0 03/08/2019 [facility] HEMATOLOGY Hct 34.4 36.0 - 48.0 03/08/[address] [facility] Hgb 10.9 12.0 - 16.0 03/08/[address] [facility] Platelet 150 133 - 450 03/08/[address] [facility] MCV 92.4 80.0 - 98.0 03/08/[address] [facility] RBC 3.72 4.20 - 5.40 03/08/[address] [facility] MCHC 31.6 32.0 - 36.0 03/08/[address] [facility] RDW 15.6 11.5 - 14.5 03/08/[address] [facility] MPV 8.3 7.4 - 10.4 03/08/[address] [facility] MCH 29.2 27.0 - 31.0 03/08/2019 [facility] HEMATOLOGY WBC 7.9 3.7 - 10.4 03/08/2019 [facility] CHEM PANEL Magnesium Lvl 2.2 1.8 - 2.4 03/06/2019 [facility] ELECTROLYTES AGAP 9.7 10.0 - 20.0 03/06/2019 [facility] ELECTROLYTES eGFR 8 03/06/2019 Result Comment: The eGFR is calculated using the CKD-EPI formula. In most young, healthy individuals the eGFR will be >90 mL/min/1.73m2. The eGFR declines with age. An eGFR of 60-89 may be normal in some populations, particularly the elderly, for whom the CKD-EPI formula has not been extensively validated. Use of the eGFR is not recommended in the following populations:

Individuals with unstable creatinine concentrations, including patients and those with serious co-morbid conditions.

Patients with extremes in muscle mass or diet.

The data above are obtained from the National Kidney Disease Education Program (NKDEP) which additionally recommends that when the eGFR is used in patients with extremes of body mass index for purposes of drug dosing, the eGFR should be multiplied by the estimated BMI. [facility] ELECTROLYTES CO2 29 24 - 32 03/06/2019 [facility] ELECTROLYTES Calcium Lvl 8.9 8.5 - 10.5 03/06/2019 [facility] ELECTROLYTES Potassium Lvl 4.7 3.5 - 5.1 03/06/2019 [facility] ELECTROLYTES Chloride Lvl 101 95 - 109 03/06/2019 [facility] ELECTROLYTES Creatinine Lvl 5.2 4 0.50 - 1.40 03/06/2019 [facility] ELECTROLYTES Sodium Lvl 135 135 - 145 03/06/2019 [facility] ELECTROLYTES Glucose Lvl 119 70 - 99 03/06/2019 [facility] ELECTROLYTES BUN 30 7 - 22 03/06/2019 [facility] HEMATOLOGY INR 1.15 0.85 - 1.17 03/06/[address] [facility] PTT 38.5 22.9 - 35.8 03/06/2019 [facility] HEMATOLOGY PT 14.5 12.0 - 14.7 03/06/[address] [facility] MCHC 32.8 32.0 - 36.0 03/06/2019 [facility] HEMATOLOGY RDW 15.8 11.5 - 14.5 03/06/[address] [facility] Platelet 152 133 - 450 03/06/2019 [facility] HEMATOLOGY MPV 8.6 7.4 - 10.4 03/06/2019 [facility] HEMATOLOGY WBC 7.5 3.7 - 10.4 03/06/2019 [facility] HEMATOLOGY RBC 3.77 4.20 - 5.40 03/06/[address] [facility] MCH 30.1 27.0 - 31.0 03/06/[address] [facility] MCV 91.9 80.0 - 98.0 03/06/2019 [facility] HEMATOLOGY Hct 34.7 36.0 - 48.0 03/06/2019 [facility] HEMATOLOGY Hgb 11.4 12.0 - 16.0 03/06/2019 [facility] HEMATOLOGY Segs 62.3 45.0 - 75.0 03/06/2019 [facility] HEMATOLOGY Eosinophils 3.3 0.0 - 4.0 03/06/2019 [facility] HEMATOLOGY Monocytes 10.2 2.0 - 12.0 03/06/2019 [facility] HEMATOLOGY Neutrophils # 4.7 1.5 - 8.1 03/06/2019 [facility] HEMATOLOGY Basophils 0.7 0.0 - 1.0 03/06/2019 [facility] HEMATOLOGY Lymphocytes 23.5 20.0 - 40.0 03/06/2019 [facility] HEMATOLOGY Eosinophils # 0.3 0.0 - 0.5 03/06/2019 [facility] HEMATOLOGY Monocytes # 0.8 0.0 - 0.8 03/06/2019 [facility] HEMATOLOGY Basophils # 0.1 0.0 - 0.2 03/06/2019 [facility] HEMATOLOGY Lymphocytes # 1.8 1.0 - 5.5 03/06/2019 [facility] HEMATOLOGY Basophils # 0.1 0.0 - 0.2 03/04/2019 [facility] HEMATOLOGY Eosinophils # 0.2 0.0 - 0.5 03/04/2019 [facility] HEMATOLOGY Monocytes # 0.7 0.0 - 0.8 03/04/[address] [facility] Lymphocytes # 1.1 1.0 - 5.5 03/04/[address] [facility] Neutrophils # 3.7 1.5 - 8.1 03/04/2019 [facility] HEMATOLOGY Basophils 0.9 0.0 - 1.0 03/04/[address] [facility] Eosinophils 3.0 0.0 - 4.0 03/04/2019 [facility] HEMATOLOGY Monocytes 13.0 2.0 - 12.0 03/04/2019 [facility] HEMATOLOGY Lymphocytes 19.8 20.0 - 40.0 03/04/2019 [facility] HEMATOLOGY Segs 63.3 45.0 - 75.0 03/04/2019 [facility] IMMUNOLOGY Hep Bs Ag Negat zaria *NA* (03/04/19 7:15 AM) Negative 03/04/2019 [facility] CHEM PANEL ALT 16 0 - 65 03/01/2019 [facility] CHEM PANEL AST 23 0 - 37 03/01/2019 [facility] CHEM PANEL Bili Total 1.0 0.2 - 1.3 03/01/2019 [facility] CHEM PANEL Alk Phos 133 39 - 136 03/01/2019 [facility] CHEM PANEL Total Protein 7.7 6.4 - 8.4 03/01/2019 [facility] CHEM PANEL Albumin Lvl 3.1 3.5 - 5.0 03/01/2019 [facility] CHEM PANEL Globulin 4.6 2.7 - 4.2 03/01/2019 [facility] CHEM PANEL A/G Ratio 0.7 0.7 - 1.6 03/01/2019 [facility] CHEM PANEL B/C Ratio 7 6 - 25 03/01/2019 [facility] HEMATOLOGY Plt Morph Cathy l (03/01/19 4:10 AM) Normal 03/01/2019 [facility] HEMATOLOGY RBC Morph Cathy l (03/01/19 4:10 AM) Normal 03/01/2019 [facility] IMMUNOLOGY Hep Bs Ag Negat zaria *NA* (02/28/19 8:10 PM) Negative 03/01/2019 [facility] CARDIAC ENZYMES Troponin-I 0.03 0.00 - 0.40 02/28/2019 [facility] CHEM PANEL Globulin 5.9 2.7 - 4.2 02/28/2019 [facility] CHEM PANEL A/G Ratio 0.5 0.7 - 1.6 02/28/2019 [facility] CHEM PANEL B/C Ratio 10 6 - 25 02/28/2019 [facility] CHEM PANEL Albumin Lvl 3.1 3.5 - 5.0 02/28/2019 [facility] CHEM PANEL Total Protein 9.0 6.4 - 8.4 02/28/2019 [facility] CHEM PANEL Bili Total 0.9 0.2 - 1.3 02/28/2019 [facility] CHEM PANEL Alk Phos 207 39 - 136 02/28/2019 [facility] CHEM PANEL ALT 25 0 - 65 02/28/2019 [facility] CHEM PANEL AST 76 0 - 37 02/28/2019 [facility] CHEM PANEL Procalcitonin Lvl 1.69 0.00 - 0.10 02/28/2019 [facility] CHEM PANEL Lactic Acid Lvl 1.9 0.5 - 2.2 02/28/2019 [facility] MOLECULAR DIAGNOSTIC Ishan Vancomycin Resistance Not Detected (02/28/19 1:21 PM) Not Detected 02/28/2019 [facility] MOLECULAR DIAGNOSTIC mecA Methicilli n Resistance Not Detected (02/28/19 1:21 PM) Not Detected 02/28/2019 [facility] Staphylococcus spp. Detected *ABN* (02/28/19 1:21 PM) Not Detected 02/28/2019 [facility] Listeria spp. Not Detected (02/28/19 1:21 PM) Not Detected 02/28/2019 [facility] Streptococcus s pp. Not Detected (02/28/19 1:21 PM) Not Detected 02/28/2019 [facility] E. faecalis Not Detected (02/28/19 1:21 PM) Not Detected 02/28/2019 [facility] E. faecium Not Detected (02/28/19 1:21 PM) Not Detected 02/28/2019 [facility] S. pyogenes Not Detected (02/28/19 1:21 PM) Not Detected 02/28/2019 [facility] S. pneumoniae Not Detected (02/28/19 1:21 PM) Not Detected 02/28/2019 [facility] S. agalactiae Not Detected (02/28/19 1:21 PM) Not Detected 02/28/2019 [facility] vanB Vancomycin Resistance Not Detected (02/28/19 1:21 PM) Not Detected 02/28/2019 [facility] S. epidermidis Not Detected (02/28/19 1:21 PM) Not Detected 02/28/2019 [facility] S. lugdunensis Detected *ABN* (02/28/19 1:21 PM) Not Detected 02/28/2019 [facility] S. aureus Not Detected (02/28/19 1:21 PM) Not Detected 02/28/2019 [facility] S. anginosus gr p Not Detected (02/28/19 1:21 PM) Not Detected 02/28/2019 [facility] CARDIAC ENZYMES Troponin-I <0.02 0.00 - 0.40 02/12/2019 [facility] CHEM PANEL eGFR 9 02/12/2019 Result Comment: The eGFR is calculated using the CKD-EPI formula. In most young, healthy individuals the eGFR will be >90 mL/min/1.73m2. The eGFR declines with age. An eGFR of 60-89 may be normal in some populations, particularly the elderly, for whom the CKD-EPI formula has not been extensively validated. Use of the eGFR is not recommended in the following populations:

Individuals with unstable creatinine concentrations, including patients and those with serious co-morbid conditions.

Patients with extremes in muscle mass or diet.

The data above are obtained from the National Kidney Disease Education Program (NKDEP) which additionally recommends that when the eGFR is used in patients with extremes of body mass index for purposes of drug dosing, the eGFR should be multiplied by the estimated BMI. [facility] CHEM PANEL AGAP 6.8 10.0 - 20.0 02/12/2019 [facility] CHEM PANEL B/C Ratio 7 6 - 25 02/12/2019 [facility] CHEM PANEL A/G Ratio 0.6 0.7 - 1.6 02/12/2019 [facility] CHEM PANEL Globulin 5.7 2.7 - 4.2 02/12/2019 [facility] CHEM PANEL Glucose Lvl 107 70 - 99 02/12/2019 [facility] CHEM PANEL Creatinine Lvl 4.57 0.50 - 1.40 02/12/2019 [facility] CHEM PANEL BUN 34 7 - 22 02/12/2019 [facility] CHEM PANEL CO2 33 24 - 32 02/12/2019 [facility] CHEM PANEL Chloride Lvl 103 95 - 109 02/12/2019 [facility] CHEM PANEL Potassium Lvl 4.8 3.5 - 5.1 02/12/2019 [facility] CHEM PANEL Sodium Lvl 138 135 - 145 02/12/2019 [facility] CHEM PANEL Calcium Lvl 8.7 8.5 - 10.5 02/12/2019 [facility] CHEM PANEL AST 62 0 - 37 02/12/2019 [facility] CHEM PANEL Total Protein 8.9 6.4 - 8.4 02/12/2019 [facility] CHEM PANEL ALT 18 0 - 65 02/12/2019 [facility] CHEM PANEL Albumin Lvl 3.2 3.5 - 5.0 02/12/2019 [facility] CHEM PANEL Alk Phos 182 39 - 136 02/12/2019 [facility] CHEM PANEL Bili Total 0.5 0.2 - 1.3 02/12/2019 [facility] CHEM PANEL eGFR 14 11/05/2018 Result Comment: The eGFR is calculated using the CKD-EPI formula. In most young, healthy individuals the eGFR will be >90 mL/min/1.73m2. The eGFR declines with age. An eGFR of 60-89 may be normal in some populations, particularly the elderly, for whom the CKD-EPI formula has not been extensively validated. Use of the eGFR is not recommended in the following populations:

Individuals with unstable creatinine concentrations, including patients and those with serious co-morbid conditions.

Patients with extremes in muscle mass or diet.

The data above are obtained from the National Kidney Disease Education Program (NKDEP) which additionally recommends that when the eGFR is used in patients with extremes of body mass index for purposes of drug dosing, the eGFR should be multiplied by the estimated BMI. [facility] CHEM PANEL Chloride Lvl 104 95 - 109 11/05/2018 [facility] CHEM PANEL CO2 28 24 - 32 11/05/2018 [facility] CHEM PANEL Calcium Lvl 7.9 8.5 - 10.5 11/05/2018 [facility] CHEM PANEL Potassium Lvl 3.9 3.5 - 5.1 11/05/2018 [facility] CHEM PANEL BUN 41 7 - 22 11/05/2018 [facility] CHEM PANEL Glucose Lvl 277 70 - 99 11/05/2018 [facility] CHEM PANEL Creatinine Lvl 3.38 0.50 - 1.40 11/05/2018 [facility] CHEM PANEL Sodium Lvl 141 135 - 145 11/05/2018 [facility] CHEM PANEL AGAP 12.9 10.0 - 20.0 11/05/[address] [facility] Monocytes # 0.2 0.0 - 0.8 11/05/[address] [facility] Eosinophils # 0.2 0.0 - 0.5 11/05/[address] [facility] Neutrophils # 2.2 1.5 - 8.1 11/05/[address] [facility] Lymphocytes # 0.9 1.0 - 5.5 11/05/[address] [facility] Monocytes 5.6 2.0 - 12.0 11/05/2018 [facility] HEMATOLOGY Eosinophils 5.0 0.0 - 4.0 11/05/[address] [facility] Basophils 0.5 0.0 - 1.0 11/05/[address] [facility] Lymphocytes 25.1 20.0 - 40.0 11/05/[address] [facility] Segs 63.8 45.0 - 75.0 11/05/[address] [facility] Platelet 143 133 - 450 11/05/[address] [facility] MPV 8.3 7.4 - 10.4 11/05/[address] [facility] MCHC 33.8 32.0 - 36.0 11/05/2018 [facility] HEMATOLOGY RDW 13.1 11.5 - 14.5 11/05/2018 [facility] HEMATOLOGY MCV 94.7 80.0 - 98.0 11/05/2018 [facility] HEMATOLOGY MCH 32.0 27.0 - 31.0 11/05/2018 [facility] HEMATOLOGY WBC 3.4 3.7 - 10.4 11/05/2018 [facility] HEMATOLOGY RBC 2.86 4.20 - 5.40 11/05/2018 [facility] HEMATOLOGY Hgb 9.2 12.0 - 16.0 11/05/[address] [facility] Hct 27.1 36.0 - 48.0 11/05/2018 [facility] Gram Stain Report Gram Stain Perf ormed By: [facility] 11/04/2018 [facility] Culture: Respiratory w/Gram Stain F ew Yeast Normal Respiratory Cheri Isolated 11/04/2018 [facility] CHEM PANEL eGFR 13 11/03/2018 Result Comment: The eGFR is calculated using the CKD-EPI formula. In most young, healthy individuals the eGFR will be >90 mL/min/1.73m2. The eGFR declines with age. An eGFR of 60-89 may be normal in some populations, particularly the elderly, for whom the CKD-EPI formula has not been extensively validated. Use of the eGFR is not recommended in the following populations:

Individuals with unstable creatinine concentrations, including patients and those with serious co-morbid conditions.

Patients with extremes in muscle mass or diet.

The data above are obtained from the National Kidney Disease Education Program (NKDEP) which additionally recommends that when the eGFR is used in patients with extremes of body mass index for purposes of drug dosing, the eGFR should be multiplied by the estimated BMI. [facility] CHEM PANEL BUN 26 7 - 22 11/03/2018 [facility] CHEM PANEL Creatinine Lvl 3.51 0.50 - 1.40 11/03/2018 [facility] CHEM PANEL Glucose Lvl 146 70 - 99 11/03/2018 [facility] CHEM PANEL Sodium Lvl 141 135 - 145 11/03/2018 [facility] CHEM PANEL Potassium Lvl 4.0 3.5 - 5.1 11/03/2018 [facility] CHEM PANEL Chloride Lvl 104 95 - 109 11/03/2018 [facility] CHEM PANEL CO2 29 24 - 32 11/03/2018 [facility] CHEM PANEL Calcium Lvl 8.4 8.5 - 10.5 11/03/2018 [facility] CHEM PANEL AGAP 12.0 10.0 - 20.0 11/03/2018 [facility] HEMATOLOGY MCH 31.9 27.0 - 31.0 11/03/[address] [facility] RDW 13.2 11.5 - 14.5 11/03/2018 [facility] HEMATOLOGY MCV 94.9 80.0 - 98.0 11/03/[address] [facility] MCHC 33.7 32.0 - 36.0 11/03/[address] [facility] MPV 8.2 7.4 - 10.4 11/03/[address] [facility] Platelet 140 133 - 450 11/03/[address] [facility] RBC 3.05 4.20 - 5.40 11/03/[address] [facility] WBC 5.1 3.7 - 10.4 11/03/[address] [facility] Hct 28.9 36.0 - 48.0 11/03/[address] [facility] Hgb 9.7 12.0 - 16.0 11/03/[address] [facility] Lymphocytes # 1.4 1.0 - 5.5 11/03/[address] [facility] Eosinophils # 0.3 0.0 - 0.5 11/03/[address] [facility] Segs 53.9 45.0 - 75.0 11/03/[address] [facility] Lymphocytes 26.8 20.0 - 40.0 11/03/[address] [facility] Monocytes 13.1 2.0 - 12.0 11/03/[address] [facility] Neutrophils # 2.8 1.5 - 8.1 11/03/[address] [facility] Basophils 0.4 0.0 - 1.0 11/03/[address] [facility] Eosinophils 5.8 0.0 - 4.0 11/03/[address] [facility] Monocytes # 0.7 0.0 - 0.8 11/03/2018 [facility] MOLECULAR DIAGNOSTIC Source Respirat ory Panel PCR [employer] Swab (11/02/18 1:32 AM) 11/02/2018 [facility] DIAGNOSTIC Influenza A PCR Negative (11/02/18 1:32 AM) Negative 11/02/2018 [facility] MOLECULAR DIAGNOSTIC Influenza B PCR Negative (11/02/18 1:32 AM) Negative 11/02/2018 [facility] MOLECULAR DIAGNOSTIC RSV PCR Negative (11/02/18 1:32 AM) Negative 11/02/2018 [facility] VIRAL - SEROLOGY Influ A Negative (11/02/18 1:32 AM) Negative 11/02/2018 [facility] VIRAL - SEROLOGY Influ B Negative (11/02/18 1:32 AM) Negative 11/02/2018 [facility] CHEM PANEL Lactic Acid Lvl 0.9 0.5 - 2.2 11/02/2018 [facility] CHEM PANEL Procalcitonin Lvl 0.40 0.00 - 0.10 11/02/2018 [facility] IMMUNOLOGY Hep Bs Ag Negat zaria *NA* (11/02/18 12:52 AM) Negative 11/02/2018 [facility] BACTERIAL - SEROLOGY Source Strep Urine *NA* (11/01/18 10:06 PM) 11/02/2018 [facility] BACTERIAL - SEROLOGY Strep pneumonia e Ag Negative (11/01/18 10:06 PM) Negative 11/02/2018 [facility] CEFAZOLIN:SUSC:PT:ISOLATE:ORDQN:RHONDA Culture: Urine 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 Escherichia coli . This Organism Produces An Extended Spectrum Beta Lactamase (ESBL). . 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 Skin Cheri 11/02/2018 [facility] CEFAZOLIN:SUSC:PT:ISOLATE:ORDQN:RHONDA Escherichia coli Escherichia coli 11/02/2018 [facility] URINE AND STOOL UA Ketones Trace *ABN* (11/01/18 10:06 PM) Negative 11/02/2018 [facility] URINE AND STOOL UA Protein >=300 mg/dL Negative mg/dL 11/02/2018 [facility] URINE AND STOOL UA Color Renate 11/02/2018 [facility] URINE AND STOOL UA Turbidity Marked *ABN* (11/01/18 10:06 PM) Clear 11/02/2018 [facility] URINE AND STOOL UA Glucose Negative *NA* (11/01/18 10:06 PM) Negative 11/02/2018 [facility] URINE AND STOOL UA Spec Grav 1.017 <=1.030 11/02/2018 [facility] URINE AND STOOL UA pH 5.0 5.0 - 8.0 11/02/2018 [facility] URINE AND STOOL UA Leuk Est Large *ABN* (11/01/18 10:06 PM) Negative 11/02/2018 [facility] URINE AND STOOL UA Bacteria Many /HPF None Seen /HPF 11/02/2018 [facility] URINE AND STOOL UA Mucus Few /LPF None Seen /LPF 11/02/2018 [facility] URINE AND STOOL UA WBC >182 0 - 5 11/02/2018 [facility] URINE AND STOOL UA RBC 5 0 - 2 11/02/2018 [facility] URINE AND STOOL UA Sq Epi Occasional /LPF Few /LPF 11/02/2018 [facility] URINE AND STOOL UA Urobilinogen <=1.0 mg/dL 0.1 - 1.0 11/02/2018 [facility] URINE AND STOOL UA Nitrite Negative (11/01/18 10:06 PM) Negative 11/02/2018 [facility] URINE AND STOOL UA Bili Negative *NA* (11/01/18 10:06 PM) Negative 11/02/2018 [facility] URINE AND STOOL UA Blood Moderate *ABN* (11/01/18 10:06 PM) Negative 11/02/2018 [facility] CARDIAC ENZYMES Troponin-I <0.02 0.00 - 0.40 11/02/2018 [facility] CHEM PANEL Lactic Acid Lvl 0.7 0.5 - 2.2 11/02/2018 [facility] CHEM PANEL Globulin 5.4 2.7 - 4.2 11/02/2018 [facility] CHEM PANEL B/C Ratio 10 6 - 25 11/02/2018 [facility] CHEM PANEL A/G Ratio 0.6 0.7 - 1.6 11/02/2018 [facility] CHEM PANEL AGAP 11.5 10.0 - 20.0 11/02/2018 [facility] CHEM PANEL Alk Phos 275 39 - 136 11/02/2018 [facility] CHEM PANEL eGFR 14 11/02/2018 Result Comment: The eGFR is calculated using the CKD-EPI formula. In most young, healthy individuals the eGFR will be >90 mL/min/1.73m2. The eGFR declines with age. An eGFR of 60-89 may be normal in some populations, particularly the elderly, for whom the CKD-EPI formula has not been extensively validated. Use of the eGFR is not recommended in the following populations:

Individuals with unstable creatinine concentrations, including patients and those with serious co-morbid conditions.

Patients with extremes in muscle mass or diet.

The data above are obtained from the National Kidney Disease Education Program (NKDEP) which additionally recommends that when the eGFR is used in patients with extremes of body mass index for purposes of drug dosing, the eGFR should be multiplied by the estimated BMI. [facility] CHEM PANEL Bili Total 1.0 0.2 - 1.3 11/02/2018 [facility] CHEM PANEL CO2 32 24 - 32 11/02/2018 [facility] CHEM PANEL Chloride Lvl 96 95 - 109 11/02/2018 [facility] CHEM PANEL Sodium Lvl 136 135 - 145 11/02/2018 [facility] CHEM PANEL Potassium Lvl 3.5 3.5 - 5.1 11/02/2018 [facility] CHEM PANEL Creatinine Lvl 3.19 0.50 - 1.40 11/02/2018 [facility] CHEM PANEL AST 41 0 - 37 11/02/2018 [facility] CHEM PANEL Calcium Lvl 8.8 8.5 - 10.5 11/02/2018 [facility] CHEM PANEL Total Protein 8.5 6.4 - 8.4 11/02/2018 [facility] CHEM PANEL Albumin Lvl 3.1 3.5 - 5.0 11/02/2018 [facility] CHEM PANEL ALT 26 0 - 65 11/02/2018 [facility] CHEM PANEL BUN 32 7 - 22 11/02/2018 [facility] CHEM PANEL Glucose Lvl 159 70 - 99 11/02/[address] [facility] MPV 8.3 7.4 - 10.4 11/02/[address] [facility] MCH 31.9 27.0 - 31.0 11/02/[address] [facility] Hct 32.8 36.0 - 48.0 11/02/[address] [facility] MCV 94.1 80.0 - 98.0 11/02/[address] [facility] RDW 13.1 11.5 - 14.5 11/02/[address] [facility] Platelet 153 133 - 450 11/02/[address] [facility] MCHC 33.9 32.0 - 36.0 11/02/[address] [facility] WBC 8.3 3.7 - 10.4 11/02/[address] [facility] RBC 3.48 4.20 - 5.40 11/02/[address] [facility] Hgb 11.1 12.0 - 16.0 11/02/[address] [facility] Basophils # 0.1 0.0 - 0.2 11/02/[address] [facility] Eosinophils # 0.3 0.0 - 0.5 11/02/[address] [facility] Monocytes # 0.7 0.0 - 0.8 11/02/2018 [facility] HEMATOLOGY Basophils 0.7 0.0 - 1.0 11/02/2018 [facility] HEMATOLOGY Neutrophils # 5.7 1.5 - 8.1 11/02/2018 [facility] HEMATOLOGY Eosinophils 4.0 0.0 - 4.0 11/02/2018 [facility] HEMATOLOGY Lymphocytes # 1.5 1.0 - 5.5 11/02/[address] [facility] Lymphocytes 18.2 20.0 - 40.0 11/02/2018 [facility] HEMATOLOGY Segs 68.7 45.0 - 75.0 11/02/[address] [facility] Monocytes 8.4 2.0 - 12.0 11/02/2018 [facility] CHEM PANEL eGFR 18 08/06/2018 Result Comment: The eGFR is calculated using the CKD-EPI formula. In most young, healthy individuals the eGFR will be >90 mL/min/1.73m2. The eGFR declines with age. An eGFR of 60-89 may be normal in some populations, particularly the elderly, for whom the CKD-EPI formula has not been extensively validated. Use of the eGFR is not recommended in the following populations:

Individuals with unstable creatinine concentrations, including patients and those with serious co-morbid conditions.

Patients with extremes in muscle mass or diet.

The data above are obtained from the National Kidney Disease Education Program (NKDEP) which additionally recommends that when the eGFR is used in patients with extremes of body mass index for purposes of drug dosing, the eGFR should be multiplied by the estimated BMI. [facility] CHEM PANEL Chloride Lvl 105 95 - 109 08/06/2018 [facility] CHEM PANEL Potassium Lvl 4.1 3.5 - 5.1 08/06/2018 [facility] CHEM PANEL Sodium Lvl 143 135 - 145 08/06/2018 [facility] CHEM PANEL CO2 27 24 - 32 08/06/2018 [facility] CHEM PANEL Calcium Lvl 8.4 8.5 - 10.5 08/06/2018 [facility] CHEM PANEL Glucose Lvl 142 70 - 99 08/06/2018 [facility] CHEM PANEL Creatinine Lvl 2.66 0.50 - 1.40 08/06/2018 [facility] CHEM PANEL BUN 31 7 - 22 08/06/2018 [facility] CHEM PANEL AGAP 15.1 10.0 - 20.0 08/06/[address] [facility] Hct 31.0 36.0 - 48.0 08/06/[address] [facility] MCV 93.6 80.0 - 98.0 08/06/[address] [facility] MCHC 33.7 32.0 - 36.0 08/06/[address] [facility] MCH 31.6 27.0 - 31.0 08/06/[address] [facility] Hgb 10.4 12.0 - 16.0 08/06/[address] [facility] RBC 3.31 4.20 - 5.40 08/06/[address] [facility] WBC 5.7 3.7 - 10.4 08/06/[address] [facility] Platelet 181 133 - 450 08/06/[address] [facility] RDW 16.2 11.5 - 14.5 08/06/[address] [facility] MPV 8.3 7.4 - 10.4 08/06/[address] [facility] Segs 62.8 45.0 - 75.0 08/06/[address] [facility] Neutrophils # 3.6 1.5 - 8.1 08/06/[address] [facility] Lymphocytes # 1.3 1.0 - 5.5 08/06/[address] [facility] Eosinophils 5.4 0.0 - 4.0 08/06/[address] [facility] Basophils 0.4 0.0 - 1.0 08/06/[address] [facility] Lymphocytes 22.8 20.0 - 40.0 08/06/[address] [facility] Monocytes 8.6 2.0 - 12.0 08/06/[address] [facility] Monocytes # 0.5 0.0 - 0.8 08/06/[address] [facility] Eosinophils # 0.3 0.0 - 0.5 08/06/2018 [facility] CHEM PANEL eGFR 17 08/06/2018 Result Comment: The eGFR is calculated using the CKD-EPI formula. In most young, healthy individuals the eGFR will be >90 mL/min/1.73m2. The eGFR declines with age. An eGFR of 60-89 may be normal in some populations, particularly the elderly, for whom the CKD-EPI formula has not been extensively validated. Use of the eGFR is not recommended in the following populations:

Individuals with unstable creatinine concentrations, including patients and those with serious co-morbid conditions.

Patients with extremes in muscle mass or diet.

The data above are obtained from the National Kidney Disease Education Program (NKDEP) which additionally recommends that when the eGFR is used in patients with extremes of body mass index for purposes of drug dosing, the eGFR should be multiplied by the estimated BMI. [facility] CHEM PANEL Calcium Lvl 8.6 8.5 - 10.5 08/06/2018 [facility] CHEM PANEL BUN 30 7 - 22 08/06/2018 [facility] CHEM PANEL AGAP 15.2 10.0 - 20.0 08/06/2018 [facility] CHEM PANEL CO2 25 24 - 32 08/06/2018 [facility] CHEM PANEL Potassium Lvl 4.2 3.5 - 5.1 08/06/2018 [facility] CHEM PANEL Chloride Lvl 106 95 - 109 08/06/2018 [facility] CHEM PANEL Sodium Lvl 142 135 - 145 08/06/2018 [facility] CHEM PANEL Glucose Lvl 140 70 - 99 08/06/2018 [facility] CHEM PANEL Creatinine Lvl 2.76 0.50 - 1.40 08/06/2018 [facility] HEMATOLOGY RBC 3.43 4.20 - 5.40 08/06/2018 [facility] HEMATOLOGY WBC 6.3 3.7 - 10.4 08/06/2018 [facility] HEMATOLOGY Hgb 10.6 12.0 - 16.0 08/06/2018 [facility] HEMATOLOGY MPV 8.1 7.4 - 10.4 08/06/2018 [facility] HEMATOLOGY RDW 16.4 11.5 - 14.5 08/06/[address] [facility] Platelet 187 133 - 450 08/06/[address] [facility] MCH 30.9 27.0 - 31.0 08/06/2018 [facility] HEMATOLOGY MCHC 33.0 32.0 - 36.0 08/06/2018 [facility] HEMATOLOGY Hct 32.1 36.0 - 48.0 08/06/2018 [facility] HEMATOLOGY MCV 93.6 80.0 - 98.0 08/06/2018 [facility] CHEM PANEL Magnesium Lvl 2.2 1.8 - 2.4 08/05/2018 [facility] CHEM PANEL eGFR 16 08/05/2018 Result Comment: The eGFR is calculated using the CKD-EPI formula. In most young, healthy individuals the eGFR will be >90 mL/min/1.73m2. The eGFR declines with age. An eGFR of 60-89 may be normal in some populations, particularly the elderly, for whom the CKD-EPI formula has not been extensively validated. Use of the eGFR is not recommended in the following populations:

Individuals with unstable creatinine concentrations, including patients and those with serious co-morbid conditions.

Patients with extremes in muscle mass or diet.

The data above are obtained from the National Kidney Disease Education Program (NKDEP) which additionally recommends that when the eGFR is used in patients with extremes of body mass index for purposes of drug dosing, the eGFR should be multiplied by the estimated BMI. [facility] CHEM PANEL BUN 28 7 - 22 08/05/2018 [facility] CHEM PANEL Creatinine Lvl 2.95 0.50 - 1.40 08/05/2018 [facility] CHEM PANEL Chloride Lvl 106 95 - 109 08/05/2018 [facility] CHEM PANEL CO2 25 24 - 32 08/05/2018 [facility] CHEM PANEL Calcium Lvl 9.1 8.5 - 10.5 08/05/2018 [facility] CHEM PANEL Sodium Lvl 143 135 - 145 08/05/2018 [facility] CHEM PANEL Potassium Lvl 4.9 3.5 - 5.1 08/05/2018 [facility] CHEM PANEL Glucose Lvl 207 70 - 99 08/05/2018 [facility] CHEM PANEL AGAP 16.9 10.0 - 20.0 08/05/2018 [facility] HEMATOLOGY Neutrophils # 3.2 1.5 - 8.1 08/05/2018 [facility] HEMATOLOGY Basophils 0.4 0.0 - 1.0 08/05/2018 [facility] HEMATOLOGY Monocytes # 0.4 0.0 - 0.8 08/05/2018 [facility] HEMATOLOGY Lymphocytes # 1.0 1.0 - 5.5 08/05/2018 [facility] HEMATOLOGY Eosinophils # 0.2 0.0 - 0.5 08/05/2018 [facility] HEMATOLOGY Monocytes 8.9 2.0 - 12.0 08/05/2018 [facility] HEMATOLOGY Eosinophils 4.6 0.0 - 4.0 08/05/2018 [facility] HEMATOLOGY Segs 64.9 45.0 - 75.0 08/05/[address] [facility] Lymphocytes 21.2 20.0 - 40.0 08/05/[address] [facility] MPV 8.3 7.4 - 10.4 08/05/[address] [facility] RDW 15.9 11.5 - 14.5 08/05/[address] [facility] Platelet 192 133 - 450 08/05/2018 [facility] HEMATOLOGY MCH 31.2 27.0 - 31.0 08/05/[address] [facility] MCHC 33.2 32.0 - 36.0 08/05/2018 [facility] HEMATOLOGY MCV 93.7 80.0 - 98.0 08/05/[address] [facility] Hct 32.1 36.0 - 48.0 08/05/[address] [facility] Hgb 10.7 12.0 - 16.0 08/05/2018 [facility] HEMATOLOGY WBC 4.9 3.7 - 10.4 08/05/2018 [facility] HEMATOLOGY RBC 3.43 4.20 - 5.40 08/05/2018 [facility] HEMATOLOGY Eosinophils # 0.3 0.0 - 0.5 08/03/[address] [facility] Monocytes # 0.5 0.0 - 0.8 08/03/[address] [facility] Lymphocytes 16.1 20.0 - 40.0 08/03/[address] [facility] Segs 70.4 45.0 - 75.0 08/03/[address] [facility] Lymphocytes # 0.9 1.0 - 5.5 08/03/[address] [facility] Neutrophils # 4.0 1.5 - 8.1 08/03/[address] [facility] Basophils 0.4 0.0 - 1.0 08/03/[address] [facility] Eosinophils 4.7 0.0 - 4.0 08/03/[address] [facility] Monocytes 8.4 2.0 - 12.0 08/03/2018 [facility] IMMUNOLOGY Hep Bs Ag Negat zaria *NA* (07/30/18 5:30 AM) Negative 07/30/2018 [facility] CEFUROXIME:SUSC:PT:ISOLATE:ORDQN:RHONDA Culture: Urine 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 Escherichia coli 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 Skin Cheri 07/30/2018 [facility] CEFUROXIME:SUSC:PT:ISOLATE:ORDQN:RHONDA Escherichia coli Escherichia coli 07/30/2018 [facility] URINE AND STOOL UA Urobilinogen <=1.0 mg/dL 0.1 - 1.0 07/30/2018 [facility] URINE AND STOOL UA Color Renate 07/30/2018 [facility] URINE AND STOOL UA Mucus Few /LPF None Seen /LPF 07/30/2018 [facility] URINE AND STOOL UA Hyal Cast 9 0 - 2 07/30/2018 [facility] URINE AND STOOL UA WBC 106 0 - 5 07/30/2018 [facility] URINE AND STOOL UA RBC 2 0 - 2 07/30/2018 [facility] URINE AND STOOL UA Bacteria Many /HPF None Seen /HPF 07/30/2018 [facility] URINE AND STOOL UA Blood Small *ABN* (07/30/18 3:50 AM) Negative 07/30/2018 [facility] URINE AND STOOL UA Bili Negative *NA* (07/30/18 3:50 AM) Negative 07/30/2018 [facility] URINE AND STOOL UA Sq Epi Moderate /LPF Few /LPF 07/30/2018 [facility] URINE AND STOOL UA Nitrite Negative (07/30/18 3:50 AM) Negative 07/30/2018 [facility] URINE AND STOOL UA Leuk Est Large *ABN* (07/30/18 3:50 AM) Negative 07/30/2018 [facility] URINE AND STOOL UA Protein 100 mg/dL Negative mg/dL 07/30/2018 [facility] URINE AND STOOL UA Ketones Negative mg/dL Negative mg/dL 07/30/2018 [facility] URINE AND STOOL UA Glucose Negative mg/dL Negative mg/dL 07/30/2018 [facility] URINE AND STOOL UA pH 5.0 5.0 - 8.0 07/30/2018 [facility] URINE AND STOOL UA Spec Grav 1.014 <=1.030 07/30/2018 [facility] URINE AND STOOL UA Turbidity Marked *ABN* (07/30/18 3:50 AM) Clear 07/30/2018 [facility] HEMATOLOGY Basophils # 0.1 0.0 - 0.2 07/29/2018 [facility] CARDIAC ENZYMES Troponin-I 0.03 0.00 - 0.40 07/29/2018 [facility] CHEM PANEL B/C Ratio 10 6 - 25 07/29/2018 [facility] CHEM PANEL Globulin 5.9 2.7 - 4.2 07/29/2018 [facility] CHEM PANEL A/G Ratio 0.5 0.7 - 1.6 07/29/2018 [facility] CHEM PANEL Albumin Lvl 3.1 3.5 - 5.0 07/29/2018 [facility] CHEM PANEL AST 39 0 - 37 07/29/2018 [facility] CHEM PANEL ALT 17 0 - 65 07/29/2018 [facility] CHEM PANEL Bili Total 0.5 0.2 - 1.3 07/29/2018 [facility] CHEM PANEL Alk Phos 195 39 - 136 07/29/2018 [facility] CHEM [facility] Total Protein 9.0 6.4 - 8.4 07/29/2018 [facility] HEMATOLOGY PTT 28.1 22.9 - 35.8 07/29/2018 [facility] HEMATOLOGY INR 1.01 0.85 - 1.17 07/29/2018 [facility] HEMATOLOGY PT 13.3 12.0 - 14.7 07/29/2018 [facility] HEMATOLOGY Basophils # 0.1 0.0 - 0.2 07/29/2018 [facility] CARDIAC ENZYMES Troponin-I 0.04 0.00 - 0.40 05/05/2018 [facility] CARDIAC ENZYMES Troponin-I 0.04 0.00 - 0.40 05/04/2018 [facility] CHEM PANEL eGFR 34 05/04/2018 Result Comment: The eGFR is calculated using the CKD-EPI formula. In most young, healthy individuals the eGFR will be >90 mL/min/1.73m2. The eGFR declines with age. An eGFR of 60-89 may be normal in some populations, particularly the elderly, for whom the CKD-EPI formula has not been extensively validated. Use of the eGFR is not recommended in the following populations:

Individuals with unstable creatinine concentrations, including patients and those with serious co-morbid conditions.

Patients with extremes in muscle mass or diet.

The data above are obtained from the National Kidney Disease Education Program (NKDEP) which additionally recommends that when the eGFR is used in patients with extremes of body mass index for purposes of drug dosing, the eGFR should be multiplied by the estimated BMI. [facility] CHEM PANEL Glucose Lvl 128 70 - 99 05/04/2018 [facility] CHEM PANEL BUN 15 7 - 22 05/04/2018 [facility] CHEM PANEL Creatinine Lvl 1.56 0.50 - 1.40 05/04/2018 [facility] CHEM PANEL Sodium Lvl 140 135 - 145 05/04/2018 [facility] CHEM PANEL Calcium Lvl 8.1 8.5 - 10.5 05/04/2018 [facility] CHEM PANEL CO2 32 24 - 32 05/04/2018 [facility] CHEM PANEL Chloride Lvl 104 95 - 109 05/04/2018 [facility] CHEM PANEL Potassium Lvl 4.1 3.5 - 5.1 05/04/2018 [facility] CHEM PANEL AGAP 8.1 10.0 - 20.0 05/04/2018 [facility] HEMATOLOGY MPV 8.2 7.4 - 10.4 05/04/2018 [facility] HEMATOLOGY MCHC 32.7 32.0 - 36.0 05/04/[address] [facility] MCH 29.5 27.0 - 31.0 05/04/2018 [facility] HEMATOLOGY Platelet 129 133 - 450 05/04/2018 [facility] HEMATOLOGY RDW 18.7 11.5 - 14.5 05/04/2018 [facility] HEMATOLOGY Hct 25.9 36.0 - 48.0 05/04/2018 [facility] HEMATOLOGY MCV 90.2 80.0 - 98.0 05/04/2018 [facility] HEMATOLOGY Hgb 8.5 12.0 - 16.0 05/04/2018 [facility] HEMATOLOGY RBC 2.88 4.20 - 5.40 05/04/2018 [facility] HEMATOLOGY WBC 4.9 3.7 - 10.4 05/04/2018 [facility] HEMATOLOGY Monocytes 13.0 2.0 - 12.0 05/04/2018 [facility] HEMATOLOGY Eosinophils 9.1 0.0 - 4.0 05/04/2018 [facility] HEMATOLOGY Segs 54.0 45.0 - 75.0 05/04/2018 [facility] HEMATOLOGY Lymphocytes 23.7 20.0 - 40.0 05/04/2018 [facility] HEMATOLOGY Eosinophils # 0.4 0.0 - 0.5 05/04/[address] [facility] Lymphocytes # 1.2 1.0 - 5.5 05/04/[address] [facility] Monocytes # 0.6 0.0 - 0.8 05/04/2018 [facility] HEMATOLOGY Basophils 0.2 0.0 - 1.0 05/04/[address] [facility] Segs-Bands # 2.6 1.5 - 8.1 05/04/2018 [facility] HEMATOLOGY Hct 28.2 36.0 - 48.0 05/04/2018 [facility] HEMATOLOGY Hgb 9.2 12.0 - 16.0 05/04/2018 [facility] CARDIAC ENZYMES Troponin-I 0.04 0.00 - 0.40 05/03/2018 [facility] CARDIAC ENZYMES BNP 663 <=100 pg/mL 05/02/2018 [facility] ELECTROLYTES AGAP 11.0 10.0 - 20.0 05/02/2018 [facility] ELECTROLYTES Glucose Lvl 167 70 - 99 05/02/2018 [facility] ELECTROLYTES Creatinine Lvl 2.8 0 0.50 - 1.40 05/02/2018 [facility] ELECTROLYTES Sodium Lvl 139 135 - 145 05/02/2018 [facility] ELECTROLYTES Potassium Lvl 4.0 3.5 - 5.1 05/02/2018 [facility] ELECTROLYTES BUN 46 7 - 22 05/02/2018 [facility] ELECTROLYTES eGFR 17 05/02/2018 Result Comment: The eGFR is calculated using the CKD-EPI formula. In most young, healthy individuals the eGFR will be >90 mL/min/1.73m2. The eGFR declines with age. An eGFR of 60-89 may be normal in some populations, particularly the elderly, for whom the CKD-EPI formula has not been extensively validated. Use of the eGFR is not recommended in the following populations:

Individuals with unstable creatinine concentrations, including patients and those with serious co-morbid conditions.

Patients with extremes in muscle mass or diet.

The data above are obtained from the National Kidney Disease Education Program (NKDEP) which additionally recommends that when the eGFR is used in patients with extremes of body mass index for purposes of drug dosing, the eGFR should be multiplied by the estimated BMI. [facility] ELECTROLYTES Chloride Lvl 103 95 - 109 05/02/2018 [facility] ELECTROLYTES CO2 29 24 - 32 05/02/2018 [facility] ELECTROLYTES Calcium Lvl 8.3 8.5 - 10.5 05/02/2018 [facility] IMMUNOLOGY Hep Bs Ag Negat zaria *NA* (05/02/18 7:27 AM) Negative 05/02/2018 [facility] ELECTROLYTES AGAP 11.5 10.0 - 20.0 05/01/2018 [facility] ELECTROLYTES eGFR 17 05/01/2018 Result Comment: The eGFR is calculated using the CKD-EPI formula. In most young, healthy individuals the eGFR will be >90 mL/min/1.73m2. The eGFR declines with age. An eGFR of 60-89 may be normal in some populations, particularly the elderly, for whom the CKD-EPI formula has not been extensively validated. Use of the eGFR is not recommended in the following populations:

Individuals with unstable creatinine concentrations, including patients and those with serious co-morbid conditions.

Patients with extremes in muscle mass or diet.

The data above are obtained from the National Kidney Disease Education Program (NKDEP) which additionally recommends that when the eGFR is used in patients with extremes of body mass index for purposes of drug dosing, the eGFR should be multiplied by the estimated BMI. [facility] ELECTROLYTES Calcium Lvl 8.4 8.5 - 10.5 05/01/2018 [facility] ELECTROLYTES CO2 27 24 - 32 05/01/2018 [facility] ELECTROLYTES Sodium Lvl 139 135 - 145 05/01/2018 [facility] ELECTROLYTES Creatinine Lvl 2.7 8 0.50 - 1.40 05/01/2018 [facility] ELECTROLYTES Potassium Lvl 4.5 3.5 - 5.1 05/01/2018 [facility] ELECTROLYTES Glucose Lvl 135 70 - 99 05/01/2018 [facility] ELECTROLYTES BUN 39 7 - 22 05/01/2018 [facility] ELECTROLYTES Chloride Lvl 105 95 - 109 05/01/2018 [facility] HEMATOLOGY PTT 45.8 22.9 - 35.8 04/30/[address] [facility] PTT 73.6 22.9 - 35.8 04/30/2018 [facility] CARDIAC ENZYMES CK MB Index 1.6 0.0 - 2.5 04/30/2018 [facility] CARDIAC ENZYMES CK MB 2.8 0.5 - 3.6 04/30/2018 [facility] CARDIAC ENZYMES Total CK 177 12 - 191 04/30/[address] [facility] MPV 8.0 7.4 - 10.4 04/30/[address] [facility] RBC 2.88 4.20 - 5.40 04/30/[address] [facility] Hgb 8.3 12.0 - 16.0 04/30/[address] [facility] WBC 5.3 3.7 - 10.4 04/30/[address] [facility] Hct 25.8 36.0 - 48.0 04/30/[address] [facility] Platelet 118 133 - 450 04/30/[address] [facility] MCV 89.8 80.0 - 98.0 04/30/[address] [facility] MCHC 32.2 32.0 - 36.0 04/30/[address] [facility] RDW 19.7 11.5 - 14.5 04/30/[address] [facility] MCH 28.9 27.0 - 31.0 04/30/2018 [facility] HEMATOLOGY Basophils 0.4 0.0 - 1.0 04/30/2018 [facility] HEMATOLOGY Lymphocytes # 1.7 1.0 - 5.5 04/30/2018 [facility] HEMATOLOGY Segs-Bands # 2.5 1.5 - 8.1 04/30/2018 [facility] HEMATOLOGY Lymphocytes 31.8 20.0 - 40.0 04/30/2018 [facility] HEMATOLOGY Segs 46.7 45.0 - 75.0 04/30/2018 [facility] HEMATOLOGY Eosinophils 9.4 0.0 - 4.0 04/30/2018 [facility] HEMATOLOGY Monocytes 11.7 2.0 - 12.0 04/30/2018 [facility] HEMATOLOGY Eosinophils # 0.5 0.0 - 0.5 04/30/2018 [facility] HEMATOLOGY Monocytes # 0.6 0.0 - 0.8 04/30/2018 [facility] CARDIAC ENZYMES Total CK 200 12 - 191 04/30/2018 [facility] CARDIAC ENZYMES CK MB 3.4 0.5 - 3.6 04/30/2018 [facility] CARDIAC ENZYMES Total CK 191 12 - 191 04/29/2018 [facility] CARDIAC ENZYMES CK MB 3.9 0.5 - 3.6 04/29/2018 [facility] HEMATOLOGY Monocytes 9.9 2.0 - 12.0 04/29/2018 [facility] HEMATOLOGY Segs 49.0 45.0 - 75.0 04/29/2018 [facility] HEMATOLOGY Lymphocytes 32.9 20.0 - 40.0 04/29/2018 [facility] HEMATOLOGY Eosinophils # 0.5 0.0 - 0.5 04/29/2018 [facility] HEMATOLOGY Lymphocytes # 1.9 1.0 - 5.5 04/29/2018 [facility] HEMATOLOGY Monocytes # 0.6 0.0 - 0.8 04/29/2018 [facility] HEMATOLOGY Basophils 0.3 0.0 - 1.0 04/29/2018 [facility] HEMATOLOGY Segs-Bands # 2.9 1.5 - 8.1 04/29/2018 [facility] HEMATOLOGY Eosinophils 7.9 0.0 - 4.0 04/29/2018 [facility] HEMATOLOGY PT 16.0 12.0 - 14.7 04/29/2018 [facility] HEMATOLOGY INR 1.27 0.85 - 1.17 04/29/2018 [facility] HEMATOLOGY PTT 36.4 22.9 - 35.8 04/29/2018 [facility] HEMATOLOGY Platelet 124 133 - 450 04/29/2018 [facility] HEMATOLOGY MCHC 32.0 32.0 - 36.0 04/29/2018 [facility] HEMATOLOGY MPV 7.7 7.4 - 10.4 04/29/2018 [facility] HEMATOLOGY RDW 19.3 11.5 - 14.5 04/29/2018 [facility] HEMATOLOGY WBC 5.9 3.7 - 10.4 04/29/2018 [facility] HEMATOLOGY MCV 89.1 80.0 - 98.0 04/29/2018 [facility] HEMATOLOGY MCH 28.5 27.0 - 31.0 04/29/2018 [facility] HEMATOLOGY RBC 2.82 4.20 - 5.40 04/29/2018 [facility] IMMUNOLOGY Hep C Ab Posit zaria *ABN* (04/29/18 6:13 PM) 04/29/2018 [facility] Hep Bs Ab 44.5 <=7.4 mIU/mL 04/29/2018 [facility] Hep B Core Ab Posit zaria *NA* (04/29/18 6:13 PM) Negative 04/29/2018 [facility] CARDIAC ENZYMES CK MB Index 3.0 0.0 - 2.5 04/29/2018 [facility] CARDIAC ENZYMES CK MB Index 3.3 0.0 - 2.5 04/29/2018 [facility] CHEM PANEL Lipase Lvl 279 73 - 393 04/29/2018 [facility] CARDIAC ENZYMES BNP 451 <=100 pg/mL 04/29/2018 [facility] CHEM PANEL Total Protein 8.1 6.4 - 8.4 04/29/2018 [facility] CHEM PANEL ALT 21 0 - 65 04/29/2018 [facility] CHEM PANEL AST 55 0 - 37 04/29/2018 [facility] CHEM PANEL Alk Phos 142 39 - 136 04/29/2018 [facility] CHEM PANEL Albumin Lvl 3.2 3.5 - 5.0 04/29/2018 [facility] CHEM PANEL Bili Total 0.4 0.2 - 1.3 04/29/2018 [facility] CHEM PANEL A/G Ratio 0.7 0.7 - 1.6 04/29/2018 [facility] CHEM PANEL Globulin 4.9 2.7 - 4.2 04/29/2018 [facility] CHEM PANEL B/C Ratio 16 6 - 25 04/29/2018 [facility] URINE AND STOOL UA Turbidity Clear (04/28/18 7:10 PM) Clear 04/29/2018 [facility] URINE AND STOOL UA Spec Grav 1.010 <=1.030 04/29/2018 [facility] URINE AND STOOL UA Color Yellow *NA* (04/28/18 7:10 PM) Yellow 04/29/2018 [facility] URINE AND STOOL UA Urobilinogen <=1.0 mg/dL 0.1 - 1.0 04/29/2018 [facility] URINE AND STOOL UA Leuk Est Negative (04/28/18 7:10 PM) Negative 04/29/2018 [facility] URINE AND STOOL UA Blood Small *ABN* (04/28/18 7:10 PM) Negative 04/29/2018 [facility] URINE AND STOOL UA Nitrite Negative (04/28/18 7:10 PM) Negative 04/29/2018 [facility] URINE AND STOOL UA Hyal Cast 1 0 - 2 04/29/2018 [facility] URINE AND STOOL UA Bacteria Occasional /HPF None Seen /HPF 04/29/2018 [facility] URINE AND STOOL UA Ketones Negative mg/dL Negative mg/dL 04/29/2018 [facility] URINE AND STOOL UA Bili Negative *NA* (04/28/18 7:10 PM) Negative 04/29/2018 [facility] URINE AND STOOL UA Sq Epi Occasional /LPF Few /LPF 04/29/2018 [facility] URINE AND STOOL UA WBC 3 0 - 5 04/29/2018 [facility] URINE AND STOOL UA RBC 4 0 - 2 04/29/2018 [facility] URINE AND STOOL UA pH 5.0 5.0 - 8.0 04/29/2018 [facility] URINE AND STOOL UA Protein 100 mg/dL Negative mg/dL 04/29/2018 [facility] URINE AND STOOL UA Glucose Negative mg/dL Negative mg/dL 04/29/2018 [facility] CHEM PANEL eGFR 22 04/12/2018 Result Comment: The eGFR is calculated using the CKD-EPI formula. In most young, healthy individuals the eGFR will be >90 mL/min/1.73m2. The eGFR declines with age. An eGFR of 60-89 may be normal in some populations, particularly the elderly, for whom the CKD-EPI formula has not been extensively validated. Use of the eGFR is not recommended in the following populations:

Individuals with unstable creatinine concentrations, including patients and those with serious co-morbid conditions.

Patients with extremes in muscle mass or diet.

The data above are obtained from the National Kidney Disease Education Program (NKDEP) which additionally recommends that when the eGFR is used in patients with extremes of body mass index for purposes of drug dosing, the eGFR should be multiplied by the estimated BMI. [facility] CHEM PANEL Glucose Lvl 82 70 - 99 04/12/2018 [facility] CHEM PANEL BUN 43 7 - 22 04/12/2018 [facility] CHEM PANEL Creatinine Lvl 2.25 0.50 - 1.40 04/12/2018 [facility] CHEM PANEL Potassium Lvl 4.6 3.5 - 5.1 04/12/2018 [facility] CHEM PANEL Sodium Lvl 144 135 - 145 04/12/2018 [facility] CHEM PANEL Chloride Lvl 113 95 - 109 04/12/2018 [facility] CHEM PANEL CO2 26 24 - 32 04/12/2018 [facility] CHEM PANEL Calcium Lvl 8.5 8.5 - 10.5 04/12/2018 [facility] CHEM PANEL AGAP 9.6 10.0 - 20.0 04/12/2018 [facility] HEMATOLOGY Basophils 0.5 0.0 - 1.0 04/12/2018 [facility] HEMATOLOGY Segs-Bands # 4.5 1.5 - 8.1 04/12/2018 [facility] HEMATOLOGY Lymphocytes # 1.1 1.0 - 5.5 04/12/2018 [facility] HEMATOLOGY Monocytes 9.7 2.0 - 12.0 04/12/2018 [facility] HEMATOLOGY Eosinophils 3.4 0.0 - 4.0 04/12/[address] [facility] Monocytes # 0.6 0.0 - 0.8 04/12/[address] [facility] Eosinophils # 0.2 0.0 - 0.5 04/12/2018 [facility] HEMATOLOGY Segs 69.2 45.0 - 75.0 04/12/2018 [facility] HEMATOLOGY Lymphocytes 17.2 20.0 - 40.0 04/12/[address] [facility] Platelet 170 133 - 450 04/12/[address] [facility] MPV 8.1 7.4 - 10.4 04/12/[address] [facility] MCH 28.5 27.0 - 31.0 04/12/[address] [facility] MCHC 31.6 32.0 - 36.0 04/12/[address] [facility] RDW 17.8 11.5 - 14.5 04/12/[address] [facility] MCV 90.2 80.0 - 98.0 04/12/[address] [facility] WBC 6.5 3.7 - 10.4 04/12/2018 [facility] HEMATOLOGY Hct 31.5 36.0 - 48.0 04/12/2018 [facility] HEMATOLOGY Hgb 9.9 12.0 - 16.0 04/12/[address] [facility] RBC 3.49 4.20 - 5.40 04/12/2018 [facility] CHEM PANEL eGFR 23 04/01/2018 Result Comment: The eGFR is calculated using the CKD-EPI formula. In most young, healthy individuals the eGFR will be >90 mL/min/1.73m2. The eGFR declines with age. An eGFR of 60-89 may be normal in some populations, particularly the elderly, for whom the CKD-EPI formula has not been extensively validated. Use of the eGFR is not recommended in the following populations:

Individuals with unstable creatinine concentrations, including patients and those with serious co-morbid conditions.

Patients with extremes in muscle mass or diet.

The data above are obtained from the National Kidney Disease Education Program (NKDEP) which additionally recommends that when the eGFR is used in patients with extremes of body mass index for purposes of drug dosing, the eGFR should be multiplied by the estimated BMI. [facility] CHEM PANEL CO2 29 24 - 32 04/01/2018 [facility] CHEM PANEL Calcium Lvl 8.7 8.5 - 10.5 04/01/2018 [facility] CHEM PANEL BUN 32 7 - 22 04/01/2018 [facility] CHEM PANEL Creatinine Lvl 2.18 0.50 - 1.40 04/01/2018 [facility] CHEM PANEL Glucose Lvl 137 70 - 99 04/01/2018 [facility] CHEM PANEL Chloride Lvl 106 95 - 109 04/01/2018 [facility] CHEM PANEL Potassium Lvl 4.9 3.5 - 5.1 04/01/2018 [facility] CHEM PANEL Sodium Lvl 143 135 - 145 04/01/2018 [facility] CHEM PANEL AGAP 12.9 10.0 - 20.0 04/01/2018 [facility] HEMATOLOGY Eosinophils 3.3 0.0 - 4.0 04/01/2018 [facility] HEMATOLOGY Monocytes 12.6 2.0 - 12.0 04/01/2018 [facility] HEMATOLOGY Lymphocytes # 0.9 1.0 - 5.5 04/01/2018 [facility] HEMATOLOGY Eosinophils # 0.1 0.0 - 0.5 04/01/[address] [facility] Monocytes # 0.6 0.0 - 0.8 04/01/[address] [facility] Basophils 0.6 0.0 - 1.0 04/01/[address] [facility] Segs-Bands # 2.7 1.5 - 8.1 04/01/[address] [facility] Segs 62.0 45.0 - 75.0 04/01/[address] [facility] Lymphocytes 21.5 20.0 - 40.0 04/01/[address] [facility] MCHC 32.7 32.0 - 36.0 04/01/[address] [facility] Hct 29.7 36.0 - 48.0 04/01/[address] [facility] MCV 91.2 80.0 - 98.0 04/01/[address] [facility] MCH 29.8 27.0 - 31.0 04/01/[address] [facility] RDW 18.1 11.5 - 14.5 04/01/[address] [facility] Platelet 204 133 - 450 04/01/[address] [facility] MPV 8.5 7.4 - 10.4 04/01/[address] [facility] Hgb 9.7 12.0 - 16.0 04/01/[address] [facility] WBC 4.4 3.7 - 10.4 04/01/[address] [facility] RBC 3.25 4.20 - 5.40 04/01/2018 [facility] CHEM PANEL eGFR 24 03/31/2018 Result Comment: The eGFR is calculated using the CKD-EPI formula. In most young, healthy individuals the eGFR will be >90 mL/min/1.73m2. The eGFR declines with age. An eGFR of 60-89 may be normal in some populations, particularly the elderly, for whom the CKD-EPI formula has not been extensively validated. Use of the eGFR is not recommended in the following populations:

Individuals with unstable creatinine concentrations, including patients and those with serious co-morbid conditions.

Patients with extremes in muscle mass or diet.

The data above are obtained from the National Kidney Disease Education Program (NKDEP) which additionally recommends that when the eGFR is used in patients with extremes of body mass index for purposes of drug dosing, the eGFR should be multiplied by the estimated BMI. [facility] CHEM PANEL Chloride Lvl 108 95 - 109 03/31/2018 [facility] CHEM PANEL Potassium Lvl 5.0 3.5 - 5.1 03/31/2018 [facility] CHEM PANEL Calcium Lvl 8.3 8.5 - 10.5 03/31/2018 [facility] CHEM PANEL AGAP 10.0 10.0 - 20.0 03/31/2018 [facility] CHEM PANEL CO2 27 24 - 32 03/31/2018 [facility] CHEM PANEL Glucose Lvl 113 70 - 99 03/31/2018 [facility] CHEM PANEL Sodium Lvl 140 135 - 145 03/31/2018 [facility] CHEM PANEL Creatinine Lvl 2.08 0.50 - 1.40 03/31/2018 [facility] CHEM PANEL BUN 30 7 - 22 03/31/2018 [facility] ELECTROLYTES AGAP 10.9 10.0 - 20.0 03/30/2018 [facility] ELECTROLYTES Calcium Lvl 8.2 8.5 - 10.5 03/30/2018 [facility] ELECTROLYTES CO2 26 24 - 32 03/30/2018 [facility] ELECTROLYTES eGFR 24 03/30/2018 Result Comment: The eGFR is calculated using the CKD-EPI formula. In most young, healthy individuals the eGFR will be >90 mL/min/1.73m2. The eGFR declines with age. An eGFR of 60-89 may be normal in some populations, particularly the elderly, for whom the CKD-EPI formula has not been extensively validated. Use of the eGFR is not recommended in the following populations:

Individuals with unstable creatinine concentrations, including patients and those with serious co-morbid conditions.

Patients with extremes in muscle mass or diet.

The data above are obtained from the National Kidney Disease Education Program (NKDEP) which additionally recommends that when the eGFR is used in patients with extremes of body mass index for purposes of drug dosing, the eGFR should be multiplied by the estimated BMI. [facility] ELECTROLYTES Glucose Lvl 96 70 - 99 03/30/2018 [facility] ELECTROLYTES Creatinine Lvl 2.1 2 0.50 - 1.40 03/30/2018 [facility] ELECTROLYTES BUN 29 7 - 22 03/30/2018 [facility] ELECTROLYTES Potassium Lvl 4.9 3.5 - 5.1 03/30/2018 [facility] ELECTROLYTES Chloride Lvl 106 95 - 109 03/30/2018 [facility] ELECTROLYTES Sodium Lvl 138 135 - 145 03/30/2018 [facility] HEMATOLOGY Monocytes # 0.8 0.0 - 0.8 03/30/2018 [facility] HEMATOLOGY Eosinophils # 0.3 0.0 - 0.5 03/30/2018 [facility] HEMATOLOGY Lymphocytes # 1.2 1.0 - 5.5 03/30/2018 [facility] HEMATOLOGY Segs-Bands # 2.4 1.5 - 8.1 03/30/2018 [facility] HEMATOLOGY Basophils 0.6 0.0 - 1.0 03/30/2018 [facility] HEMATOLOGY Segs 51.9 45.0 - 75.0 03/30/2018 [facility] HEMATOLOGY Monocytes 17.0 2.0 - 12.0 03/30/2018 [facility] HEMATOLOGY Eosinophils 5.6 0.0 - 4.0 03/30/2018 [facility] HEMATOLOGY Lymphocytes 24.9 20.0 - 40.0 03/30/[address] [facility] MCH 30.0 27.0 - 31.0 03/30/[address] [facility] MPV 8.7 7.4 - 10.4 03/30/2018 [facility] HEMATOLOGY MCHC 33.5 32.0 - 36.0 03/30/2018 [facility] HEMATOLOGY Platelet 136 133 - 450 03/30/2018 [facility] HEMATOLOGY RBC 2.99 4.20 - 5.40 03/30/2018 [facility] HEMATOLOGY RDW 17.3 11.5 - 14.5 03/30/2018 [facility] HEMATOLOGY WBC 4.6 3.7 - 10.4 03/30/2018 [facility] HEMATOLOGY Hct 26.8 36.0 - 48.0 03/30/2018 [facility] HEMATOLOGY Hgb 9.0 12.0 - 16.0 03/30/2018 [facility] HEMATOLOGY MCV 89.6 80.0 - 98.0 03/30/2018 [facility] HEMATOLOGY RDW 17.2 11.5 - 14.5 03/29/2018 [facility] HEMATOLOGY Platelet 117 133 - 450 03/29/2018 [facility] HEMATOLOGY MCV 90.5 80.0 - 98.0 03/29/2018 [facility] HEMATOLOGY MCH 29.5 27.0 - 31.0 03/29/2018 [facility] HEMATOLOGY MCHC 32.6 32.0 - 36.0 03/29/2018 [facility] HEMATOLOGY MPV 8.9 7.4 - 10.4 03/29/2018 [facility] HEMATOLOGY WBC 4.7 3.7 - 10.4 03/29/2018 [facility] HEMATOLOGY RBC 3.04 4.20 - 5.40 03/29/[address] [facility] Hgb 9.0 12.0 - 16.0 03/29/2018 [facility] HEMATOLOGY Hct 27.5 36.0 - 48.0 03/29/2018 [facility] HEMATOLOGY Lymphocytes # 1.1 1.0 - 5.5 03/29/2018 [facility] HEMATOLOGY Monocytes # 0.7 0.0 - 0.8 03/29/2018 [facility] HEMATOLOGY Eosinophils # 0.2 0.0 - 0.5 03/29/2018 [facility] HEMATOLOGY Basophils 0.5 0.0 - 1.0 03/29/[address] [facility] Segs-Bands # 2.5 1.5 - 8.1 03/29/[address] [facility] Monocytes 16.0 2.0 - 12.0 03/29/[address] [facility] Eosinophils 5.1 0.0 - 4.0 03/29/[address] [facility] Lymphocytes 24.3 20.0 - 40.0 03/29/[address] [facility] Segs 54.1 45.0 - 75.0 03/29/2018 [facility] IMMUNOLOGY Prealbumin 11.4 18.0 - 45.0 03/29/2018 [facility] IMMUNOLOGY Hep Bs Ag Negat zaria *NA* (03/23/18 1:20 PM) Negative 03/23/2018 [facility] CHEM PANEL Magnesium Lvl 1.9 1.8 - 2.4 03/22/2018 [facility] CHEM PANEL Total Protein 6.5 6.4 - 8.4 03/22/2018 [facility] CHEM PANEL Albumin Lvl 3.5 3.5 - 5.0 03/22/2018 [facility] IMMUNOLOGY Prealbumin 10.2 18.0 - 45.0 03/22/2018 [facility] SPECIAL CHEMISTRY Hgb A1C 6.4 <=5.6 % 03/22/2018 [facility] ELECTROLYTES CO2 27 24 - 32 03/21/2018 [facility] ELECTROLYTES eGFR 9 03/21/2018 Result Comment: The eGFR is calculated using the CKD-EPI formula. In most young, healthy individuals the eGFR will be >90 mL/min/1.73m2. The eGFR declines with age. An eGFR of 60-89 may be normal in some populations, particularly the elderly, for whom the CKD-EPI formula has not been extensively validated. Use of the eGFR is not recommended in the following populations:

Individuals with unstable creatinine concentrations, including patients and those with serious co-morbid conditions.

Patients with extremes in muscle mass or diet.

The data above are obtained from the National Kidney Disease Education Program (NKDEP) which additionally recommends that when the eGFR is used in patients with extremes of body mass index for purposes of drug dosing, the eGFR should be multiplied by the estimated BMI. [facility] ELECTROLYTES AGAP 15.6 10.0 - 20.0 03/21/2018 [facility] ELECTROLYTES Calcium Lvl 8.2 8.5 - 10.5 03/21/2018 [facility] ELECTROLYTES Chloride Lvl 97 95 - 109 03/21/2018 [facility] ELECTROLYTES Sodium Lvl 136 135 - 145 03/21/2018 [facility] ELECTROLYTES Potassium Lvl 3.6 3.5 - 5.1 03/21/2018 [facility] ELECTROLYTES Glucose Lvl 321 70 - 99 03/21/2018 [facility] ELECTROLYTES Creatinine Lvl 4.7 4 0.50 - 1.40 03/21/2018 [facility] ELECTROLYTES BUN 35 7 - 22 03/21/2018 [facility] HEMATOLOGY MCHC 33.3 32.0 - 36.0 03/21/2018 [facility] HEMATOLOGY MCV 87.9 80.0 - 98.0 03/21/[address] [facility] MCH 29.3 27.0 - 31.0 03/21/2018 [facility] HEMATOLOGY Hgb 8.8 12.0 - 16.0 03/21/2018 [facility] HEMATOLOGY RBC 3.02 4.20 - 5.40 03/21/2018 [facility] HEMATOLOGY Hct 26.5 36.0 - 48.0 03/21/2018 [facility] HEMATOLOGY MPV 9.7 7.4 - 10.4 03/21/2018 [facility] HEMATOLOGY WBC 11.7 3.7 - 10.4 03/21/2018 [facility] HEMATOLOGY Platelet 144 133 - 450 03/21/2018 [facility] HEMATOLOGY RDW 16.0 11.5 - 14.5 03/21/2018 [facility] HEMATOLOGY Segs 83.1 45.0 - 75.0 03/21/2018 [facility] HEMATOLOGY Lymphocytes 6.2 20.0 - 40.0 03/21/2018 [facility] HEMATOLOGY Basophils 0.4 0.0 - 1.0 03/21/[address] [facility] Segs-Bands # 9.7 1.5 - 8.1 03/21/2018 [facility] HEMATOLOGY Eosinophils 1.3 0.0 - 4.0 03/21/2018 [facility] HEMATOLOGY Monocytes 9.0 2.0 - 12.0 03/21/2018 [facility] HEMATOLOGY Eosinophils # 0.2 0.0 - 0.5 03/21/2018 [facility] HEMATOLOGY Monocytes # 1.1 0.0 - 0.8 03/21/2018 [facility] HEMATOLOGY Lymphocytes # 0.7 1.0 - 5.5 03/21/2018 [facility] BLOOD BANK RESULTS RBC product Product available 1 (03/20/18 10:11 AM) 03/20/2018 Result Comment: 03/20/2018 1 0:35 [id number]
notified Rossy [facility] CHEM PANEL eGFR 14 03/20/2018 Result Comment: The eGFR is calculated using the CKD-EPI formula. In most young, healthy individuals the eGFR will be >90 mL/min/1.73m2. The eGFR declines with age. An eGFR of 60-89 may be normal in some populations, particularly the elderly, for whom the CKD-EPI formula has not been extensively validated. Use of the eGFR is not recommended in the following populations:

Individuals with unstable creatinine concentrations, including patients and those with serious co-morbid conditions.

Patients with extremes in muscle mass or diet.

The data above are obtained from the National Kidney Disease Education Program (NKDEP) which additionally recommends that when the eGFR is used in patients with extremes of body mass index for purposes of drug dosing, the eGFR should be multiplied by the estimated BMI. [facility] CHEM PANEL Glucose Lvl 241 70 - 99 03/20/2018 [facility] CHEM PANEL BUN 23 7 - 22 03/20/2018 [facility] CHEM PANEL Sodium Lvl 137 135 - 145 03/20/2018 [facility] CHEM PANEL Potassium Lvl 3.7 3.5 - 5.1 03/20/2018 [facility] CHEM PANEL Chloride Lvl 97 95 - 109 03/20/2018 [facility] CHEM PANEL CO2 26 24 - 32 03/20/2018 [facility] CHEM PANEL Calcium Lvl 7.9 8.5 - 10.5 03/20/2018 [facility] CHEM PANEL Creatinine Lvl 3.23 0.50 - 1.40 03/20/2018 [facility] CHEM PANEL AGAP 17.7 10.0 - 20.0 03/20/2018 [facility] CHEM PANEL Magnesium Lvl 2.0 1.8 - 2.4 03/20/2018 [facility] HEMATOLOGY Basophils 0.3 0.0 - 1.0 03/20/[address] [facility] Segs-Bands # 8.9 1.5 - 8.1 03/20/[address] [facility] Lymphocytes # 0.7 1.0 - 5.5 03/20/2018 [facility] HEMATOLOGY Eosinophils # 0.2 0.0 - 0.5 03/20/[address] [facility] Monocytes # 1.1 0.0 - 0.8 03/20/[address] [facility] Segs 81.9 45.0 - 75.0 03/20/2018 [facility] HEMATOLOGY Eosinophils 1.4 0.0 - 4.0 03/20/[address] [facility] Monocytes 10.3 2.0 - 12.0 03/20/[address] [facility] Lymphocytes 6.1 20.0 - 40.0 03/20/[address] [facility] WBC 10.9 3.7 - 10.4 03/20/[address] [facility] RBC 2.54 4.20 - 5.40 03/20/[address] [facility] MCH 29.4 27.0 - 31.0 03/20/[address] [facility] MCV 87.5 80.0 - 98.0 03/20/[address] [facility] Hgb 7.5 12.0 - 16.0 03/20/[address] [facility] Hct 22.2 36.0 - 48.0 03/20/[address] [facility] MCHC 33.7 32.0 - 36.0 03/20/[address] [facility] MPV 9.4 7.4 - 10.4 03/20/[address] [facility] RDW 16.1 11.5 - 14.5 03/20/[address] [facility] Platelet 153 133 - 450 03/20/2018 [facility] BLOOD BANK RESULTS Antibody Scrn Negative (03/19/18 9:40 AM) 03/19/2018 [facility] BLOOD BANK RESULTS ABO/Rh O POS 03/19/2018 [facility] CHEM PANEL eGFR 7 03/19/2018 Result Comment: The eGFR is calculated using the CKD-EPI formula. In most young, healthy individuals the eGFR will be >90 mL/min/1.73m2. The eGFR declines with age. An eGFR of 60-89 may be normal in some populations, particularly the elderly, for whom the CKD-EPI formula has not been extensively validated. Use of the eGFR is not recommended in the following populations:

Individuals with unstable creatinine concentrations, including patients and those with serious co-morbid conditions.

Patients with extremes in muscle mass or diet.

The data above are obtained from the National Kidney Disease Education Program (NKDEP) which additionally recommends that when the eGFR is used in patients with extremes of body mass index for purposes of drug dosing, the eGFR should be multiplied by the estimated BMI. [facility] CHEM PANEL Glucose Lvl 171 70 - 99 03/19/2018 [facility] CHEM PANEL Creatinine Lvl 5.60 0.50 - 1.40 03/19/2018 [facility] CHEM PANEL BUN 47 7 - 22 03/19/2018 [facility] CHEM PANEL AGAP 17.9 10.0 - 20.0 03/19/2018 [facility] CHEM PANEL Potassium Lvl 4.9 3.5 - 5.1 03/19/2018 [facility] CHEM PANEL Chloride Lvl 100 95 - 109 03/19/2018 [facility] CHEM PANEL CO2 20 24 - 32 03/19/2018 [facility] CHEM PANEL Calcium Lvl 8.6 8.5 - 10.5 03/19/2018 [facility] CHEM PANEL Sodium Lvl 133 135 - 145 03/19/2018 [facility] CHEM PANEL Magnesium Lvl 2.1 1.8 - 2.4 03/19/2018 [facility] CHEM PANEL Magnesium Lvl 2.2 1.8 - 2.4 03/18/2018 [facility] HEMATOLOGY WBC 12.2 3.7 - 10.4 03/18/2018 [facility] HEMATOLOGY RDW 15.7 11.5 - 14.5 03/18/2018 [facility] HEMATOLOGY MCV 88.1 80.0 - 98.0 03/18/2018 [facility] HEMATOLOGY MCHC 33.4 32.0 - 36.0 03/18/2018 [facility] HEMATOLOGY Platelet 146 133 - 450 03/18/2018 [facility] HEMATOLOGY RBC 2.66 4.20 - 5.40 03/18/[address] [facility] MCH 29.4 27.0 - 31.0 03/18/2018 [facility] HEMATOLOGY Hct 23.4 36.0 - 48.0 03/18/2018 [facility] HEMATOLOGY Hgb 7.8 12.0 - 16.0 03/18/2018 [facility] HEMATOLOGY MPV 9.4 7.4 - 10.4 03/18/2018 [facility] HEMATOLOGY Lymphocytes # 1.0 1.0 - 5.5 03/18/2018 [facility] HEMATOLOGY Segs-Bands # 9.9 1.5 - 8.1 03/18/2018 [facility] HEMATOLOGY Eosinophils # 0.2 0.0 - 0.5 03/18/2018 [facility] HEMATOLOGY Monocytes # 1.0 0.0 - 0.8 03/18/2018 [facility] HEMATOLOGY Basophils 0.3 0.0 - 1.0 03/18/2018 [facility] HEMATOLOGY Eosinophils 1.4 0.0 - 4.0 03/18/2018 [facility] HEMATOLOGY Monocytes 8.6 2.0 - 12.0 03/18/2018 [facility] HEMATOLOGY Segs 81.1 45.0 - 75.0 03/18/[address] [facility] Lymphocytes 8.6 20.0 - 40.0 03/18/2018 [facility] MOLECULAR DIAGNOSTIC C difficile DNA Negative (03/15/18 12:43 PM) Negative 03/15/2018 [facility] URINE AND STOOL Occult Bld Stl Positive *ABN* (03/15/18 12:43 PM) Negative 03/15/[address] [facility] Baso Stipplin Slight 03/14/[address] [facility] Anisocyte 1+ *ABN* (03/14/18 3:48 AM) None Seen 03/14/[address] [facility] Large Plt Slight 03/14/2018 [facility] ANEMIA STUDY Ferritin Lvl 272 5 - 204 03/13/2018 [facility] ANEMIA STUDY UIBC 105 110 - 370 03/13/2018 [facility] ANEMIA STUDY % [place] Fe 17 12 - 57 03/13/2018 [facility] ANEMIA STUDY Iron 22 30 - 160 03/13/2018 [facility] ANEMIA STUDY TIBC 127 228 - 428 03/13/2018 [facility] CHEM PANEL Mg Therap (LD) 2.5 4.5 - 7.5 03/11/2018 [facility] Hep B Core Ab Posit zaria *NA* (03/11/18 4:40 AM) Negative 03/11/2018 [facility] Hep C Ab Posit zaria *ABN* (03/11/18 4:40 AM) 03/11/2018 [facility] Hep Bs Ab 35.8 <=7.4 mIU/mL 03/11/2018 [facility] IMMUNOLOGY Hep Bs Ag Negat zaria *NA* (03/11/18 4:40 AM) Negative 03/11/2018 [facility] BLOOD BANK RESULTS RBC product Product available 2 (03/10/18 1:55 PM) 03/10/2018 Result Comment: 03/10/2018 1 4:06 [id number]
Called to _NURSE JOSE at _03/10/2018 14:03 by TD_. [facility] CHEM PANEL Mg Therap (LD) 2.4 4.5 - 7.5 03/10/2018 [facility] CHEM PANEL Mg Therap (LD) 2.3 4.5 - 7.5 03/09/2018 [facility] HEMATOLOGY Plt Morph Cathy l (03/08/18 6:52 PM) 03/08/2018 [facility] HEMATOLOGY RBC Morph Cathy l (03/08/18 6:52 PM) 03/08/2018 [facility] HEMATOLOGY Bands 9.0 0.0 - 11.0 03/08/2018 [facility] HEMATOLOGY Tot Cell Ct 100 03/08/2018 [facility] BLOOD BANK RESULTS ABO/Rh O POS 03/08/2018 [facility] BLOOD BANK RESULTS Antibody Scrn Negative (03/08/18 10:53 AM) 03/08/2018 [facility] BLOOD BANK RESULTS RBC product Product available 3 (03/08/18 9:21 AM) 03/08/2018 Result Comment: 03/08/2018 1 3:03 [id number]
K[facility] notified Etelvina 03/08/2018 12:35 [facility] CHEM PANEL Phosphorus 6.1 2.5 - 4.5 03/08/2018 [facility] CHEM PANEL A/G Ratio 1.1 0.7 - 1.6 03/07/2018 [facility] CHEM PANEL Globulin 3.1 2.7 - 4.2 03/07/2018 [facility] CHEM PANEL B/C Ratio 16 6 - 25 03/07/2018 [facility] CHEM PANEL Bili Total 0.4 0.2 - 1.3 03/07/2018 [facility] CHEM PANEL Alk Phos 67 39 - 136 03/07/2018 [facility] CHEM PANEL AST 48 0 - 37 03/07/2018 [facility] CHEM PANEL ALT 8 0 - 65 03/07/2018 [facility] CHEM PANEL Albumin Lvl 3.5 3.5 - 5.0 03/07/2018 [facility] CHEM PANEL Total Protein 6.6 6.4 - 8.4 03/07/2018 [facility] HEMATOLOGY PTT 34.5 22.9 - 35.8 03/07/2018 [facility] HEMATOLOGY PT 16.5 12.0 - 14.7 03/07/2018 [facility] HEMATOLOGY INR 1.32 0.85 - 1.17 03/07/2018 [facility] CHEM PANEL Ammonia 29.0 <=45.0 uMol/L 03/06/2018 [facility] CHEM PANEL A/G Ratio 1.0 0.7 - 1.6 03/06/2018 [facility] CHEM PANEL Bili Total 0.5 0.2 - 1.3 03/06/2018 [facility] CHEM PANEL B/C Ratio 16 6 - 25 03/06/2018 [facility] CHEM PANEL Globulin 2.9 2.7 - 4.2 03/06/2018 [facility] CHEM PANEL Total Protein 5.7 6.4 - 8.4 03/06/2018 [facility] CHEM PANEL AST 56 0 - 37 03/06/2018 [facility] CHEM PANEL ALT 16 0 - 65 03/06/2018 [facility] CHEM PANEL Albumin Lvl 2.8 3.5 - 5.0 03/06/2018 [facility] CHEM PANEL Alk Phos 68 39 - 136 03/06/2018 [facility] CHEM PANEL A/G Ratio 1.0 0.7 - 1.6 03/06/2018 [facility] CHEM PANEL Bili Indirect 0.4 0.0 - 1.0 03/06/2018 [facility] CHEM PANEL Bili Direct 0.1 0.0 - 0.3 03/06/2018 [facility] CHEM PANEL Globulin 2.8 2.7 - 4.2 03/06/2018 [facility] CHEM PANEL AST 57 0 - 37 03/06/2018 [facility] CHEM PANEL Alk Phos 65 39 - 136 03/06/2018 [facility] CHEM PANEL Bili Total 0.5 0.2 - 1.3 03/06/2018 [facility] CHEM PANEL Total Protein 5.6 6.4 - 8.4 03/06/2018 [facility] CHEM PANEL Albumin Lvl 2.8 3.5 - 5.0 03/06/2018 [facility] CHEM PANEL ALT 17 0 - 65 03/06/2018 [facility] HEMATOLOGY INR 1.34 0.85 - 1.17 03/06/2018 [facility] HEMATOLOGY PT 16.7 12.0 - 14.7 03/06/2018 [facility] HEMATOLOGY PTT 36.3 22.9 - 35.8 03/06/2018 [facility] HEMATOLOGY Basophils # 0.1 0.0 - 0.2 03/06/2018 [facility] HEMATOLOGY INR 1.64 0.85 - 1.17 03/05/2018 [facility] HEMATOLOGY PT 19.5 12.0 - 14.7 03/05/2018 [facility] HEMATOLOGY PTT 37.7 22.9 - 35.8 03/05/2018 [facility] HEMATOLOGY Basophils # 0.1 0.0 - 0.2 03/05/2018 [facility] CHEM PANEL B/C Ratio 18 6 - 25 03/05/2018 [facility] CHEM PANEL Phosphorus 4.0 2.5 - 4.5 03/05/2018 [facility] URINE AND STOOL UA Urobilinogen <=1.0 mg/dL 0.1 - 1.0 03/04/2018 [facility] URINE AND STOOL UA Color Ltyellow 03/04/2018 [facility] URINE AND STOOL UA pH 6.0 5.0 - 8.0 03/04/2018 [facility] URINE AND STOOL UA Spec Grav 1.009 <=1.030 03/04/2018 [facility] URINE AND STOOL UA Turbidity Clear (03/04/18 2:48 PM) Clear 03/04/2018 [facility] URINE AND STOOL UA Ketones Negative mg/dL Negative mg/dL 03/04/2018 [facility] URINE AND STOOL UA Bili Negative *NA* (03/04/18 2:48 PM) Negative 03/04/2018 [facility] URINE AND STOOL UA Blood Negative (03/04/18 2:48 PM) Negative 03/04/2018 [facility] URINE AND STOOL UA Glucose Negative mg/dL Negative mg/dL 03/04/2018 [facility] URINE AND STOOL UA Protein 100 mg/dL Negative mg/dL 03/04/2018 [facility] URINE AND STOOL UA RBC 1 0 - 2 03/04/2018 [facility] URINE AND STOOL UA Bacteria Many /HPF None Seen /HPF 03/04/2018 [facility] URINE AND STOOL UA Leuk Est Trace *ABN* (03/04/18 2:48 PM) Negative 03/04/2018 [facility] URINE AND STOOL UA Sq Epi Occasional /LPF Few /LPF 03/04/2018 [facility] URINE AND STOOL UA WBC 5 0 - 5 03/04/2018 [facility] URINE AND STOOL UA Nitrite Negative (03/04/18 2:48 PM) Negative 03/04/2018 [facility] BLOOD [facility] RESULTS ABO/Rh O POS 03/04/2018 [facility] BLOOD [facility] RESULTS Antibody Scrn Negative (03/04/18 2:23 PM) 03/04/2018 [facility] BLOOD [facility] RESULTS FFP product Product available (03/04/18 12:35 PM) 03/04/2018 [facility] BLOOD BANK RESULTS Platelet product Product available (03/04/18 12:35 PM) 03/04/2018 [facility] CHEM PANEL Phosphorus 3.9 2.5 - 4.5 03/04/2018 [facility] CARDIAC ENZYMES Troponin-I 0.02 0.00 - 0.40 03/02/2018 [facility] CARDIAC ENZYMES Total CK 65 12 - 191 03/02/2018 [facility] CARDIAC ENZYMES Troponin-I 0.04 0.00 - 0.40 03/01/2018 [facility] CARDIAC ENZYMES Total CK 73 12 - 191 03/01/2018 [facility] CARDIAC ENZYMES Troponin-I 0.03 0.00 - 0.40 02/28/2018 [facility] CARDIAC ENZYMES BNP 301 <=100 pg/mL 02/28/2018 [facility] CARDIAC ENZYMES Total CK 136 12 - 191 02/28/2018 [facility] CARDIAC ENZYMES CK MB 1.7 0.5 - 3.6 02/28/2018 [facility] CARDIAC ENZYMES CK MB Index 1.2 0.0 - 2.5 02/28/2018 [facility] ELECTROLYTES AGAP 16.7 10.0 - 20.0 02/21/2018 [facility] ELECTROLYTES eGFR 8 02/21/2018 Result Comment: The eGFR is calculated using the CKD-EPI formula. In most young, healthy individuals the eGFR will be >90 mL/min/1.73m2. The eGFR declines with age. An eGFR of 60-89 may be normal in some populations, particularly the elderly, for whom the CKD-EPI formula has not been extensively validated. Use of the eGFR is not recommended in the following populations:

Individuals with unstable creatinine concentrations, including patients and those with serious co-morbid conditions.

Patients with extremes in muscle mass or diet.

The data above are obtained from the National Kidney Disease Education Program (NKDEP) which additionally recommends that when the eGFR is used in patients with extremes of body mass index for purposes of drug dosing, the eGFR should be multiplied by the estimated BMI. [facility] ELECTROLYTES Potassium Lvl 4.7 3.5 - 5.1 02/21/2018 [facility] ELECTROLYTES BUN 82 7 - 22 02/21/2018 [facility] ELECTROLYTES Glucose Lvl 77 70 - 99 02/21/2018 [facility] ELECTROLYTES Creatinine Lvl 4.9 6 0.50 - 1.40 02/21/2018 [facility] ELECTROLYTES Sodium Lvl 138 135 - 145 02/21/2018 [facility] ELECTROLYTES CO2 24 24 - 32 02/21/2018 [facility] ELECTROLYTES Chloride Lvl 102 95 - 109 02/21/2018 [facility] ELECTROLYTES Calcium Lvl 7.8 8.5 - 10.5 02/21/2018 [facility] HEMATOLOGY PTT 59.5 22.9 - 35.8 02/21/2018 [facility] CHEM PANEL Albumin Lvl 3.4 3.5 - 5.0 02/20/2018 [facility] CHEM PANEL Alk Phos 68 39 - 136 02/20/2018 [facility] CHEM PANEL Total Protein 6.4 6.4 - 8.4 02/20/2018 [facility] CHEM PANEL ALT 17 0 - 65 02/20/2018 [facility] CHEM PANEL AST 35 0 - 37 02/20/2018 [facility] CHEM PANEL Bili Total 0.3 0.2 - 1.3 02/20/2018 [facility] CHEM PANEL Bili Direct <0.1 0.0 - 0.3 02/20/2018 [facility] CHEM PANEL Bili Indirect >0.2 0.0 - 1.0 02/20/2018 [facility] CHEM PANEL A/G Ratio 1.1 0.7 - 1.6 02/20/2018 [facility] CHEM PANEL Globulin 3.0 2.7 - 4.2 02/20/2018 [facility] CHEM PANEL eGFR 7 02/20/2018 Result Comment: The eGFR is calculated using the CKD-EPI formula. In most young, healthy individuals the eGFR will be >90 mL/min/1.73m2. The eGFR declines with age. An eGFR of 60-89 may be normal in some populations, particularly the elderly, for whom the CKD-EPI formula has not been extensively validated. Use of the eGFR is not recommended in the following populations:

Individuals with unstable creatinine concentrations, including patients and those with serious co-morbid conditions.

Patients with extremes in muscle mass or diet.

The data above are obtained from the National Kidney Disease Education Program (NKDEP) which additionally recommends that when the eGFR is used in patients with extremes of body mass index for purposes of drug dosing, the eGFR should be multiplied by the estimated BMI. [facility] CHEM PANEL BUN 82 7 - 22 02/20/2018 [facility] CHEM PANEL Glucose Lvl 92 70 - 99 02/20/2018 [facility] CHEM PANEL Creatinine Lvl 5.75 0.50 - 1.40 02/20/2018 [facility] CHEM PANEL Chloride Lvl 102 95 - 109 02/20/2018 [facility] CHEM PANEL Calcium Lvl 7.5 8.5 - 10.5 02/20/2018 [facility] CHEM PANEL Potassium Lvl 4.9 3.5 - 5.1 02/20/2018 [facility] CHEM PANEL CO2 27 24 - 32 02/20/2018 [facility] CHEM PANEL Sodium Lvl 140 135 - 145 02/20/2018 [facility] CHEM PANEL AGAP 15.9 10.0 - 20.0 02/20/2018 [facility] HEMATOLOGY PTT 70.0 22.9 - 35.8 02/20/2018 [facility] HEMATOLOGY Lymphocytes # 1.5 1.0 - 5.5 02/20/2018 [facility] HEMATOLOGY Eosinophils # 0.5 0.0 - 0.5 02/20/2018 [facility] HEMATOLOGY Monocytes # 0.5 0.0 - 0.8 02/20/2018 [facility] HEMATOLOGY Segs-Bands # 5.4 1.5 - 8.1 02/20/2018 [facility] HEMATOLOGY Segs 68.0 45.0 - 75.0 02/20/[address] [facility] Lymphocytes 18.4 20.0 - 40.0 02/20/2018 [facility] HEMATOLOGY Monocytes 6.9 2.0 - 12.0 02/20/2018 [facility] HEMATOLOGY Eosinophils 6.3 0.0 - 4.0 02/20/2018 [facility] HEMATOLOGY Basophils 0.4 0.0 - 1.0 02/20/2018 [facility] HEMATOLOGY RDW 14.1 11.5 - 14.5 02/20/[address] [facility] MPV 9.1 7.4 - 10.4 02/20/[address] [facility] RBC 2.98 4.20 - 5.40 02/20/[address] [facility] Platelet 138 133 - 450 02/20/[address] [facility] MCHC 33.8 32.0 - 36.0 02/20/2018 [facility] HEMATOLOGY MCV 86.3 80.0 - 98.0 02/20/2018 [facility] HEMATOLOGY MCH 29.2 27.0 - 31.0 02/20/2018 [facility] HEMATOLOGY Hgb 8.7 12.0 - 16.0 02/20/2018 [facility] HEMATOLOGY Hct 25.7 36.0 - 48.0 02/20/[address] [facility] WBC 7.9 3.7 - 10.4 02/20/2018 [facility] HEMATOLOGY INR 1.05 0.85 - 1.17 02/19/2018 [facility] HEMATOLOGY PT 13.7 12.0 - 14.7 02/19/2018 [facility] HEMATOLOGY PTT 63.8 22.9 - 35.8 02/19/2018 [facility] CHEM PANEL Bili Direct 0.1 0.0 - 0.3 02/19/2018 [facility] CHEM PANEL eGFR 6 02/19/2018 Result Comment: The eGFR is calculated using the CKD-EPI formula. In most young, healthy individuals the eGFR will be >90 mL/min/1.73m2. The eGFR declines with age. An eGFR of 60-89 may be normal in some populations, particularly the elderly, for whom the CKD-EPI formula has not been extensively validated. Use of the eGFR is not recommended in the following populations:

Individuals with unstable creatinine concentrations, including patients and those with serious co-morbid conditions.

Patients with extremes in muscle mass or diet.

The data above are obtained from the National Kidney Disease Education Program (NKDEP) which additionally recommends that when the eGFR is used in patients with extremes of body mass index for purposes of drug dosing, the eGFR should be multiplied by the estimated BMI. [facility] CHEM PANEL Alk Phos 72 39 - 136 02/19/2018 [facility] CHEM PANEL Bili Total 0.4 0.2 - 1.3 02/19/2018 [facility] CHEM PANEL AST 33 0 - 37 02/19/2018 [facility] CHEM PANEL ALT 16 0 - 65 02/19/2018 [facility] CHEM PANEL BUN 81 7 - 22 02/19/2018 [facility] CHEM PANEL CO2 23 24 - 32 02/19/2018 [facility] CHEM PANEL AGAP 17.9 10.0 - 20.0 02/19/2018 [facility] CHEM PANEL Chloride Lvl 101 95 - 109 02/19/2018 [facility] CHEM PANEL Calcium Lvl 8.2 8.5 - 10.5 02/19/2018 [facility] CHEM PANEL Sodium Lvl 137 135 - 145 02/19/2018 [facility] CHEM PANEL A/G Ratio 0.9 0.7 - 1.6 02/19/2018 [facility] CHEM PANEL Globulin 3.8 2.7 - 4.2 02/19/2018 [facility] CHEM PANEL Albumin Lvl 3.6 3.5 - 5.0 02/19/2018 [facility] CHEM PANEL Potassium Lvl 4.9 3.5 - 5.1 02/19/2018 [facility] CHEM PANEL Glucose Lvl 110 70 - 99 02/19/2018 [facility] CHEM PANEL Total Protein 7.4 6.4 - 8.4 02/19/2018 [facility] CHEM PANEL B/C Ratio 13 6 - 25 02/19/2018 [facility] CHEM PANEL Creatinine Lvl 6.25 0.50 - 1.40 02/19/2018 [facility] HEMATOLOGY Hct 27.6 36.0 - 48.0 02/19/2018 [facility] HEMATOLOGY Hgb 9.4 12.0 - 16.0 02/19/2018 [facility] HEMATOLOGY RBC 3.21 4.20 - 5.40 02/19/2018 [facility] HEMATOLOGY WBC 5.6 3.7 - 10.4 02/19/2018 [facility] HEMATOLOGY Platelet 136 133 - 450 02/19/[address] [facility] MCH 29.4 27.0 - 31.0 02/19/[address] [facility] MCV 86.1 80.0 - 98.0 02/19/[address] [facility] RDW 14.0 11.5 - 14.5 02/19/[address] [facility] MCHC 34.2 32.0 - 36.0 02/19/[address] [facility] MPV 8.9 7.4 - 10.4 02/19/2018 [facility] HEMATOLOGY Lymphocytes # 1.3 1.0 - 5.5 02/19/2018 [facility] HEMATOLOGY Segs-Bands # 3.7 1.5 - 8.1 02/19/2018 [facility] HEMATOLOGY Basophils 0.3 0.0 - 1.0 02/19/2018 [facility] HEMATOLOGY Eosinophils 2.3 0.0 - 4.0 02/19/2018 [facility] HEMATOLOGY Eosinophils # 0.1 0.0 - 0.5 02/19/2018 [facility] HEMATOLOGY Monocytes # 0.4 0.0 - 0.8 02/19/2018 [facility] HEMATOLOGY Segs 66.7 45.0 - 75.0 02/19/2018 [facility] HEMATOLOGY Monocytes 7.2 2.0 - 12.0 02/19/2018 [facility] HEMATOLOGY Lymphocytes 23.5 20.0 - 40.0 02/19/2018 [facility] CHEM PANEL Albumin Lvl 2.6 3.5 - 5.0 02/18/2018 [facility] CHEM PANEL Bili Indirect >0.1 0.0 - 1.0 02/18/2018 [facility] CHEM PANEL Globulin 3.9 2.7 - 4.2 02/18/2018 [facility] CHEM PANEL A/G Ratio 0.7 0.7 - 1.6 02/18/2018 [facility] CHEM PANEL Bili Direct <0.1 0.0 - 0.3 02/18/2018 [facility] CHEM PANEL Alk Phos 79 39 - 136 02/18/2018 [facility] CHEM PANEL Bili Total 0.2 0.2 - 1.3 02/18/2018 [facility] CHEM PANEL ALT 16 0 - 65 02/18/2018 [facility] CHEM PANEL Albumin Lvl 2.6 3.5 - 5.0 02/18/2018 [facility] CHEM PANEL Total Protein 6.5 6.4 - 8.4 02/18/2018 [facility] CHEM PANEL AST 33 0 - 37 02/18/2018 [facility] IMMUNOLOGY Hep A IgM Negat zaria *NA* (02/18/18 2:16 PM) Negative 02/18/2018 [facility] IMMUNOLOGY Hep Bs Ag Negat zaria *NA* (02/18/18 2:16 PM) Negative 02/18/2018 [facility] MOLECULAR DIAGNOSTIC HCV RNA Log10 6.8 02/18/2018 [facility] MOLECULAR DIAGNOSTIC HCV RNA VirLoad [id number] 02/18/2018 [facility] TUMOR MARKERS AFP 2.1 0.0 - 11.0 02/18/2018 [facility] BLOOD BANK RESULTS Antibody Scrn Negative (02/18/18 12:40 PM) 02/18/2018 [facility] BLOOD BANK RESULTS ABO/Rh O POS 02/18/2018 [facility] BLOOD BANK RESULTS RBC product Product available 1 (02/18/18 9:25 AM) 02/18/2018 Result Comment: 02/18/2018 1 4:37 [id number]
notified [facility] HEMATOLOGY Lymphocytes # 1.6 1.0 - 5.5 02/18/2018 [facility] HEMATOLOGY Segs-Bands # 3.3 1.5 - 8.1 02/18/2018 [facility] HEMATOLOGY Eosinophils # 0.5 0.0 - 0.5 02/18/2018 [facility] HEMATOLOGY Monocytes # 0.5 0.0 - 0.8 02/18/2018 [facility] HEMATOLOGY Eosinophils 8.8 0.0 - 4.0 02/18/2018 [facility] HEMATOLOGY Monocytes 8.6 2.0 - 12.0 02/18/2018 [facility] HEMATOLOGY Basophils 0.3 0.0 - 1.0 02/18/2018 [facility] HEMATOLOGY Lymphocytes 26.3 20.0 - 40.0 02/18/[address] [facility] Segs 56.0 45.0 - 75.0 02/18/[address] [facility] MPV 8.6 7.4 - 10.4 02/18/[address] [facility] RDW 14.3 11.5 - 14.5 02/18/[address] [facility] Platelet 133 133 - 450 02/18/[address] [facility] MCHC 33.6 32.0 - 36.0 02/18/[address] [facility] MCH 29.0 27.0 - 31.0 02/18/[address] [facility] Hct 22.0 36.0 - 48.0 02/18/[address] [facility] MCV 86.5 80.0 - 98.0 02/18/[address] [facility] RBC 2.54 4.20 - 5.40 02/18/[address] [facility] Hgb 7.4 12.0 - 16.0 02/18/[address] [facility] WBC 5.9 3.7 - 10.4 02/18/2018 [facility] HEMATOLOGY INR 1.56 0.85 - 1.17 02/18/[address] [facility] PT 18.8 12.0 - 14.7 02/18/2018 [facility] CARDIAC ENZYMES Troponin-I 7.70 0.00 - 0.40 02/16/2018 Result Comment: Critical Result(s) crews d to Pam Lema at 02/16/2018 10:06 by VF. Read back OK. [facility] CARDIAC ENZYMES Total CK 221 12 - 191 02/16/2018 [facility] CARDIAC ENZYMES CK MB Index 5.1 0.0 - 2.5 02/16/2018 [facility] CARDIAC ENZYMES CK MB 11.2 0.5 - 3.6 02/16/2018 [facility] HEMATOLOGY INR 1.10 0.85 - 1.17 02/16/2018 [facility] HEMATOLOGY PT 14.2 12.0 - 14.7 02/16/2018 [facility] CARDIAC ENZYMES Total CK 258 12 - 191 02/16/2018 [facility] CARDIAC ENZYMES Troponin-I 11.00 0.00 - 0.40 02/16/2018 Result Comment: Critical Result(s) crews d to Cem Osman at 02/16/2018 03:14 by . Read back OK. [facility] CARDIAC ENZYMES CK MB 16.3 0.5 - 3.6 02/16/2018 [facility] CARDIAC ENZYMES CK MB Index 6.3 0.0 - 2.5 02/16/2018 [facility] LIPIDS VLDL 24 02/16/2018 [facility] LIPIDS LDL (Calculated) 70 <=99 mg/dL 02/16/2018 [facility] LIPIDS HDL 38 >=61 mg/dL 02/16/2018 [facility] LIPIDS Chol 132 <=199 mg/dL 02/16/2018 [facility] LIPIDS Trig 121 <=149 mg/dL 02/16/2018 [facility] LIPIDS CHD Risk 3.47 3.90 - 5.80 02/16/2018 [facility] SPECIAL CHEMISTRY Hgb A1C 7.1 <=5.6 % 02/16/2018 [facility] CARDIAC ENZYMES Total CK 324 12 - 191 02/16/2018 [facility] CARDIAC ENZYMES CK MB 22.2 0.5 - 3.6 02/16/2018 [facility] CARDIAC ENZYMES Troponin-I 11.00 0.00 - 0.40 02/16/2018 Result Comment: Critical Result(s) crews d to nandini martin at 02/15/2018 20:53 by douglas. Read back OK. [facility] LIPIDS CHD Risk 3.92 3.90 - 5.80 02/15/2018 [facility] LIPIDS LDL (Calculated) 81 <=99 mg/dL 02/15/2018 [facility] LIPIDS VLDL 36 02/15/2018 [facility] LIPIDS HDL 40 >=61 mg/dL 02/15/2018 [facility] LIPIDS Trig 179 <=149 mg/dL 02/15/2018 [facility] LIPIDS Chol 157 <=199 mg/dL 02/15/2018 [facility] SPECIAL CHEMISTRY Hgb A1C 7.3 <=5.6 % 02/15/2018 [facility] URINE AND STOOL UA Urobilinogen <=1.0 mg/dL 0.1 - 1.0 02/15/2018 [facility] URINE AND STOOL UA RBC 4 0 - 2 02/15/2018 [facility] URINE AND STOOL UA Bacteria Occasional /HPF None Seen /HPF 02/15/2018 [facility] URINE AND STOOL UA Hyal Cast 9 0 - 2 02/15/2018 [facility] URINE AND STOOL UA WBC 3 0 - 5 02/15/2018 [facility] URINE AND STOOL UA Blood Small *ABN* (02/14/18 7:01 PM) Negative 02/15/2018 [facility] URINE AND STOOL UA Bili Negative *NA* (02/14/18 7:01 PM) Negative 02/15/2018 [facility] URINE AND STOOL UA Sq Epi Few /LPF Few /LPF 02/15/2018 [facility] URINE AND STOOL UA Leuk Est Trace *ABN* (02/14/18 7:01 PM) Negative 02/15/2018 [facility] URINE AND STOOL UA Nitrite Negative (02/14/18 7:01 PM) Negative 02/15/2018 [facility] URINE AND STOOL UA Turbidity Clear (02/14/18 7:01 PM) Clear 02/15/2018 [facility] URINE AND STOOL UA Glucose 500 mg/dL Negative mg/dL 02/15/2018 [facility] URINE AND STOOL UA Protein >=300 mg/dL Negative mg/dL 02/15/2018 [facility] URINE AND STOOL UA pH 5.0 5.0 - 8.0 02/15/2018 [facility] URINE AND STOOL UA Ketones Negative mg/dL Negative mg/dL 02/15/2018 [facility] URINE AND STOOL UA Spec Grav 1.010 <=1.030 02/15/2018 [facility] URINE AND STOOL UA Color Yellow *NA* (02/14/18 7:01 PM) Yellow 02/15/2018 [facility] CARDIAC ENZYMES CK MB Index 1.6 0.0 - 2.5 02/14/2018 [facility] CHEM PANEL B/C Ratio 21 6 - 02/14/2018 [facility] CHEM PANEL eGFR 02/11/2018 Result Comment: The eGFR is calculated using the CKD-EPI formula. In most young, healthy individuals the eGFR will be >90 mL/min/1.73m2. The eGFR declines with age. An eGFR of 60-89 may be normal in some populations, particularly the elderly, for whom the CKD-EPI formula has not been extensively validated. Use of the eGFR is not recommended in the following populations:

Individuals with unstable creatinine concentrations, including patients and those with serious co-morbid conditions.

Patients with extremes in muscle mass or diet.

The data above are obtained from the National Kidney Disease Education Program (NKDEP) which additionally recommends that when the eGFR is used in patients with extremes of body mass index for purposes of drug dosing, the eGFR should be multiplied by the estimated BMI. [facility] CHEM PANEL Creatinine Lvl 2.34 0.50 - 1.40 02/11/2018 [facility] CHEM PANEL Sodium Lvl 139 135 - 145 02/11/2018 [facility] CHEM PANEL BUN 46 7 - 22 02/11/2018 [facility] CHEM PANEL Glucose Lvl 76 70 - 99 02/11/2018 [facility] CHEM PANEL Chloride Lvl 106 95 - 109 02/11/2018 [facility] CHEM PANEL CO2 27 24 - 32 02/11/2018 [facility] CHEM PANEL Potassium Lvl 4.5 3.5 - 5.1 02/11/2018 [facility] CHEM PANEL AGAP 10.5 10.0 - 20.0 02/11/2018 [facility] CHEM PANEL Calcium Lvl 8.3 8.5 - 10.5 02/11/2018 [facility] ELECTROLYTES AGAP 11.3 10.0 - 20.0 02/10/2018 [facility] ELECTROLYTES eGFR 24 02/10/2018 Result Comment: The eGFR is calculated using the CKD-EPI formula. In most young, healthy individuals the eGFR will be >90 mL/min/1.73m2. The eGFR declines with age. An eGFR of 60-89 may be normal in some populations, particularly the elderly, for whom the CKD-EPI formula has not been extensively validated. Use of the eGFR is not recommended in the following populations:

Individuals with unstable creatinine concentrations, including patients and those with serious co-morbid conditions.

Patients with extremes in muscle mass or diet.

The data above are obtained from the National Kidney Disease Education Program (NKDEP) which additionally recommends that when the eGFR is used in patients with extremes of body mass index for purposes of drug dosing, the eGFR should be multiplied by the estimated BMI. [facility] ELECTROLYTES Creatinine Lvl 2.1 2 0.50 - 1.40 02/10/2018 [facility] ELECTROLYTES Calcium Lvl 8.5 8.5 - 10.5 02/10/2018 [facility] ELECTROLYTES CO2 26 24 - 32 02/10/2018 [facility] ELECTROLYTES Chloride Lvl 106 95 - 109 02/10/2018 [facility] ELECTROLYTES Sodium Lvl 139 135 - 145 02/10/2018 [facility] ELECTROLYTES Potassium Lvl 4.3 3.5 - 5.1 02/10/2018 [facility] ELECTROLYTES BUN 40 7 - 22 02/10/2018 [facility] ELECTROLYTES Glucose Lvl 83 70 - 99 02/10/2018 [facility] HEMATOLOGY MPV 8.8 7.4 - 10.4 02/10/2018 [facility] HEMATOLOGY MCV 86.9 80.0 - 98.0 02/10/2018 [facility] HEMATOLOGY MCH 29.3 27.0 - 31.0 02/10/2018 [facility] HEMATOLOGY MCHC 33.7 32.0 - 36.0 02/10/2018 [facility] HEMATOLOGY RDW 14.5 11.5 - 14.5 02/10/2018 [facility] HEMATOLOGY Platelet 143 133 - 450 02/10/2018 [facility] HEMATOLOGY Hct 26.0 36.0 - 48.0 02/10/2018 [facility] HEMATOLOGY WBC 5.9 3.7 - 10.4 02/10/2018 [facility] HEMATOLOGY Hgb 8.8 12.0 - 16.0 02/10/2018 [facility] HEMATOLOGY RBC 2.99 4.20 - 5.40 02/10/2018 [facility] HEMATOLOGY Segs-Bands # 2.7 1.5 - 8.1 02/10/2018 [facility] HEMATOLOGY Lymphocytes # 1.5 1.0 - 5.5 02/10/2018 [facility] HEMATOLOGY Monocytes # 0.9 0.0 - 0.8 02/10/2018 [facility] HEMATOLOGY Eosinophils # 0.8 0.0 - 0.5 02/10/2018 [facility] HEMATOLOGY Eosinophils 13.7 0.0 - 4.0 02/10/2018 [facility] HEMATOLOGY Basophils 0.6 0.0 - 1.0 02/10/2018 [facility] HEMATOLOGY Segs 45.8 45.0 - 75.0 02/10/2018 [facility] HEMATOLOGY Lymphocytes 25.3 20.0 - 40.0 02/10/2018 [facility] HEMATOLOGY Monocytes 14.6 2.0 - 12.0 02/10/2018 [facility] ELECTROLYTES Potassium Lvl 4.9 3.5 - 5.1 02/10/2018 [facility] ANEMIA STUDY TIBC 234 228 - 428 02/09/2018 [facility] ANEMIA STUDY Iron 46 30 - 160 02/09/2018 [facility] ANEMIA STUDY UIBC 188 110 - 370 02/09/2018 [facility] ANEMIA STUDY % [place] Fe 20 12 - 57 02/09/2018 [facility] CARDIAC ENZYMES BNP 78 <=100 pg/mL 02/09/2018 [facility] CHEM PANEL Calcium Lvl 8.0 8.5 - 10.5 02/09/2018 [facility] CHEM PANEL CO2 26 24 - 32 02/09/2018 [facility] CHEM PANEL Chloride Lvl 107 95 - 109 02/09/2018 [facility] CHEM PANEL eGFR 25 02/09/2018 Result Comment: The eGFR is calculated using the CKD-EPI formula. In most young, healthy individuals the eGFR will be >90 mL/min/1.73m2. The eGFR declines with age. An eGFR of 60-89 may be normal in some populations, particularly the elderly, for whom the CKD-EPI formula has not been extensively validated. Use of the eGFR is not recommended in the following populations:

Individuals with unstable creatinine concentrations, including patients and those with serious co-morbid conditions.

Patients with extremes in muscle mass or diet.

The data above are obtained from the National Kidney Disease Education Program (NKDEP) which additionally recommends that when the eGFR is used in patients with extremes of body mass index for purposes of drug dosing, the eGFR should be multiplied by the estimated BMI. [facility] CHEM PANEL Sodium Lvl 141 135 - 145 02/09/2018 [facility] CHEM PANEL BUN 41 7 - 22 02/09/2018 [facility] CHEM PANEL Glucose Lvl 175 70 - 99 02/09/2018 [facility] CHEM PANEL Creatinine Lvl 2.00 0.50 - 1.40 02/09/2018 [facility] CHEM PANEL AGAP 13.3 10.0 - 20.0 02/09/2018 [facility] CHEM PANEL Magnesium Lvl 2.5 1.8 - 2.4 02/09/2018 [facility] ELECTROLYTES Chloride Lvl 108 95 - 109 02/09/2018 [facility] ELECTROLYTES eGFR 25 02/09/2018 Result Comment: The eGFR is calculated using the CKD-EPI formula. In most young, healthy individuals the eGFR will be >90 mL/min/1.73m2. The eGFR declines with age. An eGFR of 60-89 may be normal in some populations, particularly the elderly, for whom the CKD-EPI formula has not been extensively validated. Use of the eGFR is not recommended in the following populations:

Individuals with unstable creatinine concentrations, including patients and those with serious co-morbid conditions.

Patients with extremes in muscle mass or diet.

The data above are obtained from the National Kidney Disease Education Program (NKDEP) which additionally recommends that when the eGFR is used in patients with extremes of body mass index for purposes of drug dosing, the eGFR should be multiplied by the estimated BMI. [facility] ELECTROLYTES BUN 41 7 - 22 02/09/2018 [facility] ELECTROLYTES Glucose Lvl 179 70 - 99 02/09/2018 [facility] ELECTROLYTES Sodium Lvl 141 135 - 145 02/09/2018 [facility] ELECTROLYTES Creatinine Lvl 2.0 0 0.50 - 1.40 02/09/2018 [facility] ELECTROLYTES Calcium Lvl 7.9 8.5 - 10.5 02/09/2018 [facility] ELECTROLYTES CO2 27 24 - 32 02/09/2018 [facility] ELECTROLYTES AGAP 11.3 10.0 - 20.0 02/09/2018 [facility] HEMATOLOGY Hct 24.1 36.0 - 48.0 02/09/[address] [facility] Hgb 8.0 12.0 - 16.0 02/09/[address] [facility] RBC 2.76 4.20 - 5.40 02/09/[address] [facility] WBC 5.2 3.7 - 10.4 02/09/[address] [facility] MPV 8.6 7.4 - 10.4 02/09/[address] [facility] Platelet 123 133 - 450 02/09/[address] [facility] RDW 14.2 11.5 - 14.5 02/09/[address] [facility] MCHC 33.0 32.0 - 36.0 02/09/[address] [facility] MCH 28.8 27.0 - 31.0 02/09/[address] [facility] MCV 87.4 80.0 - 98.0 02/09/[address] [facility] Lymphocytes 26.2 20.0 - 40.0 02/09/[address] [facility] Segs 48.0 45.0 - 75.0 02/09/2018 [facility] HEMATOLOGY Monocytes 10.7 2.0 - 12.0 02/09/2018 [facility] HEMATOLOGY Eosinophils # 0.8 0.0 - 0.5 02/09/2018 [facility] HEMATOLOGY Monocytes # 0.6 0.0 - 0.8 02/09/2018 [facility] HEMATOLOGY Basophils 0.4 0.0 - 1.0 02/09/2018 [facility] HEMATOLOGY Eosinophils 14.7 0.0 - 4.0 02/09/2018 [facility] HEMATOLOGY Lymphocytes # 1.4 1.0 - 5.5 02/09/2018 [facility] HEMATOLOGY Segs-Bands # 2.5 1.5 - 8.1 02/09/2018 [facility] HEMATOLOGY Eosinophils # 0.7 0.0 - 0.5 02/09/2018 [facility] HEMATOLOGY Monocytes # 0.5 0.0 - 0.8 02/09/2018 [facility] HEMATOLOGY Lymphocytes 26.7 20.0 - 40.0 02/09/2018 [facility] HEMATOLOGY Monocytes 10.3 2.0 - 12.0 02/09/2018 [facility] HEMATOLOGY Segs 48.0 45.0 - 75.0 02/09/2018 [facility] HEMATOLOGY Segs-Bands # 2.4 1.5 - 8.1 02/09/2018 [facility] HEMATOLOGY Basophils 0.4 0.0 - 1.0 02/09/2018 [facility] HEMATOLOGY Eosinophils 14.6 0.0 - 4.0 02/09/2018 [facility] HEMATOLOGY Lymphocytes # 1.4 1.0 - 5.5 02/09/2018 [facility] HEMATOLOGY MPV 8.6 7.4 - 10.4 02/09/2018 [facility] HEMATOLOGY RDW 14.3 11.5 - 14.5 02/09/2018 [facility] HEMATOLOGY MCHC 32.9 32.0 - 36.0 02/09/2018 [facility] HEMATOLOGY Platelet 127 133 - 450 02/09/2018 [facility] HEMATOLOGY WBC 5.1 3.7 - 10.4 02/09/2018 [facility] HEMATOLOGY RBC 2.79 4.20 - 5.40 02/09/2018 [facility] HEMATOLOGY Hgb 8.0 12.0 - 16.0 02/09/2018 [facility] HEMATOLOGY MCV 86.8 80.0 - 98.0 02/09/2018 [facility] HEMATOLOGY Hct 24.2 36.0 - 48.0 02/09/2018 [facility] HEMATOLOGY MCH 28.6 27.0 - 31.0 02/09/2018 [facility] LIPIDS CHD Risk 4.38 3.90 - 5.80 02/09/2018 [facility] LIPIDS Chol 171 <=199 mg/dL 02/09/2018 [facility] LIPIDS VLDL 45 02/09/2018 [facility] LIPIDS LDL (Calculated) 87 <=99 mg/dL 02/09/2018 [facility] LIPIDS Trig 226 <=149 mg/dL 02/09/2018 [facility] LIPIDS HDL 39 >=61 mg/dL 02/09/2018 [facility] SPECIAL CHEMISTRY Hgb A1C 7.7 <=5.6 % 02/09/2018 [facility] CARDIAC ENZYMES Total CK 70 12 - 191 02/09/2018 [facility] CARDIAC ENZYMES Troponin-I <0.02 0.00 - 0.40 02/09/2018 [facility] CARDIAC ENZYMES CK MB Index 2.2 0.0 - 2.5 02/08/2018 [facility] CARDIAC ENZYMES CK MB 1.8 0.5 - 3.6 02/08/2018 [facility] CARDIAC ENZYMES Total CK 82 12 - 191 02/08/2018 [facility] CARDIAC ENZYMES Troponin-I <0.02 0.00 - 0.40 02/08/2018 [facility] URINE AND STOOL UA Hyal Cast 1 0 - 2 02/08/2018 [facility] URINE AND STOOL UA Urobilinogen <=1.0 mg/dL 0.1 - 1.0 02/08/2018 [facility] URINE AND STOOL UA Nitrite Negative (02/08/18 2:25 PM) Negative 02/08/2018 [facility] URINE AND STOOL UA Blood Negative (02/08/18 2:25 PM) Negative 02/08/2018 [facility] URINE AND STOOL UA Leuk Est Negative (02/08/18 2:25 PM) Negative 02/08/2018 [facility] URINE AND STOOL UA Bacteria Moderate /HPF None Seen /HPF 02/08/2018 [facility] URINE AND STOOL UA WBC 2 0 - 5 02/08/2018 [facility] URINE AND STOOL UA RBC 3 0 - 2 02/08/2018 [facility] URINE AND STOOL UA Sq Epi Occasional /LPF Few /LPF 02/08/2018 [facility] URINE AND STOOL UA Bili Negative *NA* (02/08/18 2:25 PM) Negative 02/08/2018 [facility] URINE AND STOOL UA Ketones Negative mg/dL Negative mg/dL 02/08/2018 [facility] URINE AND STOOL UA Protein >=300 mg/dL Negative mg/dL 02/08/2018 [facility] URINE AND STOOL UA Glucose 50 mg/dL Negative mg/dL 02/08/2018 [facility] URINE AND STOOL UA Color Ltyellow 02/08/2018 [facility] URINE AND STOOL UA pH 6.0 5.0 - 8.0 02/08/2018 [facility] URINE AND STOOL UA Spec Grav 1.012 <=1.030 02/08/2018 [facility] URINE AND STOOL UA Turbidity Clear (02/08/18 2:25 PM) Clear 02/08/2018 [facility] CARDIAC ENZYMES CK MB Index 2.0 0.0 - 2.5 02/08/2018 [facility] CARDIAC ENZYMES BNP 85 <=100 pg/mL 02/08/2018 [facility] CARDIAC ENZYMES CK MB 1.8 0.5 - 3.6 02/08/2018 [facility] CARDIAC ENZYMES Troponin-I <0.02 0.00 - 0.40 02/08/2018 [facility] CARDIAC ENZYMES Total CK 89 12 - 191 02/08/2018 [facility] CHEM PANEL Magnesium Lvl 2.5 1.8 - 2.4 02/08/2018 [facility] CHEM PANEL Phosphorus 4.2 2.5 - 4.5 02/08/2018 [facility] CHEM PANEL Globulin 3.9 2.7 - 4.2 02/08/2018 [facility] CHEM PANEL A/G Ratio 0.7 0.7 - 1.6 02/08/2018 [facility] CHEM PANEL Alk Phos 103 39 - 136 02/08/2018 [facility] CHEM PANEL B/C Ratio 22 6 - 25 02/08/2018 [facility] CHEM PANEL Bili Total 0.2 0.2 - 1.3 02/08/2018 [facility] CHEM PANEL Total Protein 6.7 6.4 - 8.4 02/08/2018 [facility] CHEM PANEL ALT 14 0 - 65 02/08/2018 [facility] CHEM PANEL AST 30 0 - 37 02/08/2018 [facility] CHEM PANEL Albumin Lvl 2.8 3.5 - 5.0 02/08/2018 [facility] CHEM PANEL Ammonia 18.0 <=45.0 uMol/L 02/08/2018 [facility] HEMATOLOGY Platelet 155 133 - 450 01/31/2017 [facility] HEMATOLOGY RDW 13.9 11.5 - 14.5 01/31/2017 [facility] HEMATOLOGY MPV 8.1 7.4 - 10.4 01/31/2017 [facility] HEMATOLOGY WBC 5.1 3.7 - 10.4 01/31/2017 [facility] HEMATOLOGY MCHC 32.8 32.0 - 36.0 01/31/2017 [facility] HEMATOLOGY RBC 2.84 4.20 - 5.40 01/31/[address] [facility] Hct 25.0 36.0 - 48.0 01/31/[address] [facility] Hgb 8.2 12.0 - 16.0 01/31/2017 [facility] HEMATOLOGY MCV 87.9 80.0 - 98.0 01/31/[address] [facility] MCH 28.8 27.0 - 31.0 01/31/2017 [facility] HEMATOLOGY Monocytes 10.6 2.0 - 12.0 01/31/2017 [facility] HEMATOLOGY Lymphocytes 26.6 20.0 - 40.0 01/31/2017 [facility] HEMATOLOGY Basophils 0.5 0.0 - 1.0 01/31/2017 [facility] HEMATOLOGY Eosinophils 8.3 0.0 - 4.0 01/31/2017 [facility] HEMATOLOGY Eosinophils # 0.4 0.0 - 0.5 01/31/2017 [facility] HEMATOLOGY Segs 54.0 45.0 - 75.0 01/31/[address] [facility] Lymphocytes # 1.4 1.0 - 5.5 01/31/[address] [facility] Monocytes # 0.5 0.0 - 0.8 01/31/[address] [facility] Segs-Bands # 2.8 1.5 - 8.1 01/31/2017 [facility] CHEM PANEL Creatinine Lvl 1.30 0.50 - 1.40 01/30/2017 [facility] CHEM PANEL BUN 24 7 - 22 01/30/2017 [facility] CHEM PANEL Calcium Lvl 8.1 8.5 - 10.5 01/30/2017 [facility] CHEM PANEL AGAP 8.0 10.0 - 20.0 01/30/2017 [facility] CHEM PANEL Potassium Lvl 4.0 3.5 - 5.1 01/30/2017 [facility] CHEM PANEL Sodium Lvl 140 135 - 145 01/30/2017 [facility] CHEM PANEL Glucose Lvl 109 70 - 99 01/30/2017 [facility] CHEM PANEL eGFR 43 01/30/2017 Result Comment: The eGFR is calculated using the CKD-EPI formula. In most young, healthy individuals the eGFR will be >90 mL/min/1.73m2. The eGFR declines with age. An eGFR of 60-89 may be normal in some populations, particularly the elderly, for whom the CKD-EPI formula has not been extensively validated. Use of the eGFR is not recommended in the following populations:

Individuals with unstable creatinine concentrations, including patients and those with serious co-morbid conditions.

Patients with extremes in muscle mass or diet.

The data above are obtained from the National Kidney Disease Education Program (NKDEP) which additionally recommends that when the eGFR is used in patients with extremes of body mass index for purposes of drug dosing, the eGFR should be multiplied by the estimated BMI. [facility] CHEM PANEL Chloride Lvl 102 95 - 109 01/30/2017 [facility] CHEM PANEL CO2 34 24 - 32 01/30/2017 [facility] CHEM PANEL eGFR 39 01/29/2017 Result Comment: The eGFR is calculated using the CKD-EPI formula. In most young, healthy individuals the eGFR will be >90 mL/min/1.73m2. The eGFR declines with age. An eGFR of 60-89 may be normal in some populations, particularly the elderly, for whom the CKD-EPI formula has not been extensively validated. Use of the eGFR is not recommended in the following populations:

Individuals with unstable creatinine concentrations, including patients and those with serious co-morbid conditions.

Patients with extremes in muscle mass or diet.

The data above are obtained from the National Kidney Disease Education Program (NKDEP) which additionally recommends that when the eGFR is used in patients with extremes of body mass index for purposes of drug dosing, the eGFR should be multiplied by the estimated BMI. [facility] CHEM PANEL Glucose Lvl 98 70 - 99 01/29/2017 [facility] CHEM PANEL Creatinine Lvl 1.40 0.50 - 1.40 01/29/2017 [facility] CHEM PANEL BUN 26 7 - 22 01/29/2017 [facility] CHEM PANEL Sodium Lvl 141 135 - 145 01/29/2017 [facility] CHEM PANEL Potassium Lvl 4.3 3.5 - 5.1 01/29/2017 [facility] CHEM PANEL Chloride Lvl 100 95 - 109 01/29/2017 [facility] CHEM PANEL Calcium Lvl 7.9 8.5 - 10.5 01/29/2017 [facility] CHEM PANEL CO2 35 24 - 32 01/29/2017 [facility] CHEM PANEL AGAP 10.3 10.0 - 20.0 01/29/[address] [facility] MCHC 33.6 32.0 - 36.0 01/29/[address] [facility] MCH 29.2 27.0 - 31.0 01/29/[address] [facility] Platelet 169 133 - 450 01/29/[address] [facility] MPV 8.0 7.4 - 10.4 01/29/[address] [facility] RDW 13.6 11.5 - 14.5 01/29/[address] [facility] MCV 87.0 80.0 - 98.0 01/29/[address] [facility] Hct 25.5 36.0 - 48.0 01/29/[address] [facility] RBC 2.93 4.20 - 5.40 01/29/[address] [facility] Hgb 8.5 12.0 - 16.0 01/29/[address] [facility] WBC 7.0 3.7 - 10.4 01/29/[address] [facility] Lymphocytes # 1.3 1.0 - 5.5 01/29/[address] [facility] Segs-Bands # 4.7 1.5 - 8.1 01/29/[address] [facility] Segs 67.2 45.0 - 75.0 01/29/[address] [facility] Lymphocytes 18.0 20.0 - 40.0 01/29/[address] [facility] Monocytes 7.5 2.0 - 12.0 01/29/[address] [facility] Eosinophils # 0.5 0.0 - 0.5 01/29/[address] [facility] Monocytes # 0.5 0.0 - 0.8 01/29/[address] [facility] Basophils 0.3 0.0 - 1.0 01/29/[address] [facility] Eosinophils 7.0 0.0 - 4.0 01/29/2017 [facility] CHEM PANEL eGFR 31 01/28/2017 Result Comment: The eGFR is calculated using the CKD-EPI formula. In most young, healthy individuals the eGFR will be >90 mL/min/1.73m2. The eGFR declines with age. An eGFR of 60-89 may be normal in some populations, particularly the elderly, for whom the CKD-EPI formula has not been extensively validated. Use of the eGFR is not recommended in the following populations:

Individuals with unstable creatinine concentrations, including patients and those with serious co-morbid conditions.

Patients with extremes in muscle mass or diet.

The data above are obtained from the National Kidney Disease Education Program (NKDEP) which additionally recommends that when the eGFR is used in patients with extremes of body mass index for purposes of drug dosing, the eGFR should be multiplied by the estimated BMI. [facility] CHEM PANEL Chloride Lvl 104 95 - 109 01/28/2017 [facility] CHEM PANEL Potassium Lvl 4.0 3.5 - 5.1 01/28/2017 [facility] CHEM PANEL Calcium Lvl 8.2 8.5 - 10.5 01/28/2017 [facility] CHEM PANEL CO2 32 24 - 32 01/28/2017 [facility] CHEM PANEL Sodium Lvl 141 135 - 145 01/28/2017 [facility] CHEM PANEL Glucose Lvl 71 70 - 99 01/28/2017 [facility] CHEM PANEL Creatinine Lvl 1.70 0.50 - 1.40 01/28/2017 [facility] CHEM PANEL BUN 31 7 - 22 01/28/2017 [facility] CHEM PANEL AGAP 9.0 10.0 - 20.0 01/28/[address] [facility] Platelet 171 133 - 450 01/28/[address] [facility] RDW 14.1 11.5 - 14.5 01/28/[address] [facility] MCHC 34.1 32.0 - 36.0 01/28/[address] [facility] MCH 29.7 27.0 - 31.0 01/28/[address] [facility] MCV 87.2 80.0 - 98.0 01/28/[address] [facility] Hct 25.0 36.0 - 48.0 01/28/[address] [facility] Hgb 8.5 12.0 - 16.0 01/28/[address] [facility] RBC 2.86 4.20 - 5.40 01/28/[address] [facility] WBC 6.2 3.7 - 10.4 01/28/[address] [facility] MPV 7.8 7.4 - 10.4 01/28/[address] [facility] Lymphocytes # 1.7 1.0 - 5.5 01/28/[address] [facility] Eosinophils # 0.5 0.0 - 0.5 01/28/2017 [facility] HEMATOLOGY Monocytes # 0.5 0.0 - 0.8 01/28/2017 [facility] HEMATOLOGY Basophils 0.3 0.0 - 1.0 01/28/2017 [facility] HEMATOLOGY Eosinophils 7.9 0.0 - 4.0 01/28/2017 [facility] HEMATOLOGY Monocytes 8.1 2.0 - 12.0 01/28/2017 [facility] HEMATOLOGY Lymphocytes 26.9 20.0 - 40.0 01/28/2017 [facility] HEMATOLOGY Segs-Bands # 3.5 1.5 - 8.1 01/28/2017 [facility] HEMATOLOGY Segs 56.8 45.0 - 75.0 01/28/2017 [facility] URINE CHEM U Prot/Creat 2.6 01/25/2017 [facility] URINE CHEM U Eos None Seen (01/25/17 12:26 PM) None Seen 01/25/2017 [facility] URINE CHEM U Protein 178.0 01/25/2017 [facility] URINE CHEM U Creatinine 68.00 01/25/2017 [facility] URINE CHEM U Sodium 57 01/25/2017 [facility] URINE AND STOOL UA Bili Negative *NA* (01/24/17 11:19 AM) Negative 01/24/2017 [facility] URINE AND STOOL UA Glucose 500 mg/dL Negative mg/dL 01/24/2017 [facility] URINE AND STOOL UA Ketones Negative mg/dL Negative mg/dL 01/24/2017 [facility] URINE AND STOOL UA Sq Epi Many /LPF Few /LPF 01/24/2017 [facility] URINE AND STOOL UA Blood Small *ABN* (01/24/17 11:19 AM) Negative 01/24/2017 [facility] URINE AND STOOL UA Leuk Est Negative (01/24/17 11:19 AM) Negative 01/24/2017 [facility] URINE AND STOOL UA Nitrite Negative (01/24/17 11:19 AM) Negative 01/24/2017 [facility] URINE AND STOOL UA Trans Epi 1 <=0 /LPF 01/24/2017 [facility] URINE AND STOOL UA WBC 3 0 - 5 01/24/2017 [facility] URINE AND STOOL UA Urobilinogen <=1.0 mg/dL 0.1 - 1.0 01/24/2017 [facility] URINE AND STOOL UA Hyal Cast 18 0 - 2 01/24/2017 [facility] URINE AND STOOL UA RBC 3 0 - 2 01/24/2017 [facility] URINE AND STOOL UA Turbidity Slight *ABN* (01/24/17 11:19 AM) Clear 01/24/2017 [facility] URINE AND STOOL UA Color Yellow *NA* (01/24/17 11:19 AM) Yellow 01/24/2017 [facility] URINE AND STOOL UA Protein >=300 mg/dL Negative mg/dL 01/24/2017 [facility] URINE AND STOOL UA Spec Grav 1.014 <=1.030 01/24/2017 [facility] URINE AND STOOL UA pH 5.0 5.0 - 8.0 01/24/2017 [facility] CARDIAC ENZYMES CK MB Index 1.8 0.0 - 2.5 01/24/2017 [facility] CARDIAC ENZYMES BNP 501 <=100 pg/mL 01/24/2017 [facility] CARDIAC ENZYMES CK MB 3.5 0.5 - 3.6 01/24/2017 [facility] CARDIAC ENZYMES Total CK 194 12 - 191 01/24/2017 [facility] CARDIAC ENZYMES Troponin-I 0.15 0.00 - 0.40 01/24/2017 [facility] CHEM PANEL Ketone Quantitative 0.44 <=0.27 mmol/L 01/24/2017 [facility] CHEM PANEL Phosphorus 4.8 2.5 - 4.5 01/24/2017 [facility] CHEM PANEL Magnesium Lvl 2.5 1.8 - 2.4 01/24/2017 [facility] CHEM PANEL Lipase Lvl 231 73 - 393 01/24/2017 [facility] CHEM PANEL Bili Total 0.3 0.2 - 1.3 01/24/2017 [facility] CHEM PANEL Globulin 4.8 2.7 - 4.2 01/24/2017 [facility] CHEM PANEL Alk Phos 124 39 - 136 01/24/2017 [facility] CHEM PANEL AST 38 0 - 37 01/24/2017 [facility] CHEM PANEL ALT 22 0 - 65 01/24/2017 [facility] CHEM PANEL A/G Ratio 0.5 0.7 - 1.6 01/24/2017 [facility] CHEM PANEL Albumin Lvl 2.4 3.5 - 5.0 01/24/2017 [facility] CHEM PANEL Total Protein 7.2 6.4 - 8.4 01/24/2017 [facility] CHEM PANEL B/C Ratio 18 6 - 25 01/24/2017 [facility] HEMATOLOGY Basophils # 0.1 0.0 - 0.2 01/24/2017 [facility] HEMATOLOGY PTT 25.3 22.9 - 35.8 01/24/2017 [facility] HEMATOLOGY INR 1.16 0.85 - 1.17 01/24/2017 [facility] HEMATOLOGY PT 15.0 12.0 - 14.7 01/24/2017 [facility] ELECTROLYTES AGAP 10.0 10.0 - 20.0 01/18/2017 [facility] ELECTROLYTES eGFR 39 01/18/2017 Result Comment: The eGFR is calculated using the CKD-EPI formula. In most young, healthy individuals the eGFR will be >90 mL/min/1.73m2. The eGFR declines with age. An eGFR of 60-89 may be normal in some populations, particularly the elderly, for whom the CKD-EPI formula has not been extensively validated. Use of the eGFR is not recommended in the following populations:

Individuals with unstable creatinine concentrations, including patients and those with serious co-morbid conditions.

Patients with extremes in muscle mass or diet.

The data above are obtained from the National Kidney Disease Education Program (NKDEP) which additionally recommends that when the eGFR is used in patients with extremes of body mass index for purposes of drug dosing, the eGFR should be multiplied by the estimated BMI. [facility] ELECTROLYTES Calcium Lvl 7.6 8.5 - 10.5 01/18/2017 [facility] ELECTROLYTES Creatinine Lvl 1.4 0 0.50 - 1.40 01/18/2017 [facility] ELECTROLYTES BUN 16 7 - 22 01/18/2017 [facility] ELECTROLYTES CO2 25 24 - 32 01/18/2017 [facility] ELECTROLYTES Chloride Lvl 110 95 - 109 01/18/2017 [facility] ELECTROLYTES Potassium Lvl 4.0 3.5 - 5.1 01/18/2017 [facility] ELECTROLYTES Sodium Lvl 141 135 - 145 01/18/2017 [facility] ELECTROLYTES Glucose Lvl 120 70 - 99 01/18/[address] [facility] MCHC 34.4 32.0 - 36.0 01/18/2017 [facility] HEMATOLOGY RBC 2.71 4.20 - 5.40 01/18/[address] [facility] WBC 5.1 3.7 - 10.4 01/18/[address] [facility] Hgb 8.1 12.0 - 16.0 01/18/2017 [facility] HEMATOLOGY MCV 86.3 80.0 - 98.0 01/18/[address] [facility] MCH 29.7 27.0 - 31.0 01/18/[address] [facility] Hct 23.4 36.0 - 48.0 01/18/[address] [facility] RDW 13.5 11.5 - 14.5 01/18/[address] [facility] MPV 8.1 7.4 - 10.4 01/18/[address] [facility] Platelet 153 133 - 450 01/18/[address] [facility] Eosinophils 6.0 0.0 - 4.0 01/18/2017 [facility] HEMATOLOGY Basophils 0.4 0.0 - 1.0 01/18/[address] [facility] Monocytes 10.1 2.0 - 12.0 01/18/[address] [facility] Eosinophils # 0.3 0.0 - 0.5 01/18/[address] [facility] Monocytes # 0.5 0.0 - 0.8 01/18/[address] [facility] Lymphocytes # 1.6 1.0 - 5.5 01/18/[address] [facility] Segs-Bands # 2.7 1.5 - 8.1 01/18/[address] [facility] Lymphocytes 30.9 20.0 - 40.0 01/18/[address] [facility] Segs 52.6 45.0 - 75.0 01/18/2017 [facility] CHEM PANEL Ammonia 18.0 <=45.0 uMol/L 2017 [facility] ANEMIA STUDY Vitamin B12 Lvl 528 254 - 1320 2017 [facility] CHEM PANEL eGFR 39 2017 Result Comment: The eGFR is calculated using the CKD-EPI formula. In most young, healthy individuals the eGFR will be >90 mL/min/1.73m2. The eGFR declines with age. An eGFR of 60-89 may be normal in some populations, particularly the elderly, for whom the CKD-EPI formula has not been extensively validated. Use of the eGFR is not recommended in the following populations:

Individuals with unstable creatinine concentrations, including patients and those with serious co-morbid conditions.

Patients with extremes in muscle mass or diet.

The data above are obtained from the National Kidney Disease Education Program (NKDEP) which additionally recommends that when the eGFR is used in patients with extremes of body mass index for purposes of drug dosing, the eGFR should be multiplied by the estimated BMI. [facility] CHEM PANEL Sodium Lvl 143 135 - 145 2017 [facility] CHEM PANEL Glucose Lvl 131 70 - 99 2017 [facility] CHEM PANEL BUN 14 7 - 22 2017 [facility] CHEM PANEL Calcium Lvl 7.4 8.5 - 10.5 2017 [facility] CHEM PANEL Potassium Lvl 4.0 3.5 - 5.1 2017 [facility] CHEM PANEL Chloride Lvl 110 95 - 109 2017 [facility] CHEM PANEL Creatinine Lvl 1.40 0.50 - 1.40 2017 [facility] CHEM PANEL CO2 25 24 - 32 2017 [facility] CHEM PANEL AGAP 12.0 10.0 - 20.0 2017 [facility] HEMATOLOGY MPV 7.8 7.4 - 10.4 2017 [facility] HEMATOLOGY RDW 13.4 11.5 - 14.5 2017 [facility] HEMATOLOGY Platelet 149 133 - 450 2017 [facility] HEMATOLOGY MCHC 34.5 32.0 - 36.0 2017 [facility] HEMATOLOGY MCH 29.7 27.0 - 31.0 2017 [facility] HEMATOLOGY MCV 86.0 80.0 - 98.0 2017 [facility] HEMATOLOGY Hct 24.4 36.0 - 48.0 2017 [facility] HEMATOLOGY Hgb 8.4 12.0 - 16.0 2017 [facility] HEMATOLOGY RBC 2.83 4.20 - 5.40 2017 [facility] HEMATOLOGY WBC 7.5 3.7 - 10.4 2017 [facility] HEMATOLOGY Monocytes 9.1 2.0 - 12.0 2017 [facility] HEMATOLOGY Lymphocytes # 1.6 1.0 - 5.5 2017 [facility] HEMATOLOGY Segs-Bands # 4.9 1.5 - 8.1 2017 [facility] HEMATOLOGY Basophils 0.3 0.0 - 1.0 2017 [facility] HEMATOLOGY Eosinophils 3.6 0.0 - 4.0 2017 [facility] HEMATOLOGY Lymphocytes 21.5 20.0 - 40.0 2017 [facility] HEMATOLOGY Segs 65.5 45.0 - 75.0 2017 [facility] HEMATOLOGY Eosinophils # 0.3 0.0 - 0.5 2017 [facility] HEMATOLOGY Monocytes # 0.7 0.0 - 0.8 2017 [facility] SPECIAL CHEMISTRY Hgb A1C 11.0 <=5.6 % 01/16/2017 [facility] CARDIAC ENZYMES Troponin-I <0.02 0.00 - 0.40 01/16/2017 [facility] CHEM PANEL eGFR 39 01/16/2017 Result Comment: The eGFR is calculated using the CKD-EPI formula. In most young, healthy individuals the eGFR will be >90 mL/min/1.73m2. The eGFR declines with age. An eGFR of 60-89 may be normal in some populations, particularly the elderly, for whom the CKD-EPI formula has not been extensively validated. Use of the eGFR is not recommended in the following populations:

Individuals with unstable creatinine concentrations, including patients and those with serious co-morbid conditions.

Patients with extremes in muscle mass or diet.

The data above are obtained from the National Kidney Disease Education Program (NKDEP) which additionally recommends that when the eGFR is used in patients with extremes of body mass index for purposes of drug dosing, the eGFR should be multiplied by the estimated BMI. [facility] CHEM PANEL Albumin Lvl 1.8 3.5 - 5.0 01/16/2017 [facility] CHEM PANEL AST 20 0 - 37 01/16/2017 [facility] CHEM PANEL ALT 7 0 - 65 01/16/2017 [facility] CHEM PANEL Total Protein 6.0 6.4 - 8.4 01/16/2017 [facility] CHEM PANEL Calcium Lvl 7.3 8.5 - 10.5 01/16/2017 [facility] CHEM PANEL Sodium Lvl 138 135 - 145 01/16/2017 [facility] CHEM PANEL Potassium Lvl 3.6 3.5 - 5.1 01/16/2017 [facility] CHEM PANEL Creatinine Lvl 1.40 0.50 - 1.40 01/16/2017 [facility] CHEM PANEL CO2 27 24 - 32 01/16/2017 [facility] CHEM PANEL Chloride Lvl 107 95 - 109 01/16/2017 [facility] CHEM PANEL Alk Phos 97 39 - 136 01/16/2017 [facility] CHEM PANEL Bili Total 0.3 0.2 - 1.3 01/16/2017 [facility] CHEM PANEL BUN 15 7 - 22 01/16/2017 [facility] CHEM PANEL Glucose Lvl 283 70 - 99 01/16/2017 [facility] CHEM PANEL B/C Ratio 11 6 - 25 01/16/2017 [facility] CHEM PANEL Globulin 4.2 2.7 - 4.2 01/16/2017 [facility] CHEM PANEL A/G Ratio 0.4 0.7 - 1.6 01/16/2017 [facility] CHEM PANEL AGAP 7.6 10.0 - 20.0 01/16/2017 [facility] CHEM PANEL Magnesium Lvl 1.9 1.8 - 2.4 01/16/2017 [facility] CHEM PANEL Phosphorus 3.0 2.5 - 4.5 01/16/2017 [facility] HEMATOLOGY Lymphocytes # 2.2 1.0 - 5.5 01/16/2017 [facility] HEMATOLOGY Basophils 0.3 0.0 - 1.0 01/16/2017 [facility] HEMATOLOGY Segs-Bands # 6.0 1.5 - 8.1 01/16/2017 [facility] HEMATOLOGY Monocytes 8.1 2.0 - 12.0 01/16/2017 [facility] HEMATOLOGY Eosinophils 3.1 0.0 - 4.0 01/16/2017 [facility] HEMATOLOGY Eosinophils # 0.3 0.0 - 0.5 01/16/2017 [facility] HEMATOLOGY Monocytes # 0.8 0.0 - 0.8 01/16/2017 [facility] HEMATOLOGY Lymphocytes 24.0 20.0 - 40.0 01/16/2017 [facility] HEMATOLOGY Segs 64.5 45.0 - 75.0 01/16/2017 [facility] HEMATOLOGY Hgb 9.0 12.0 - 16.0 01/16/2017 [facility] HEMATOLOGY RBC 3.01 4.20 - 5.40 01/16/2017 [facility] HEMATOLOGY MCV 86.4 80.0 - 98.0 01/16/2017 [facility] HEMATOLOGY MCH 29.7 27.0 - 31.0 01/16/2017 [facility] HEMATOLOGY Hct 26.1 36.0 - 48.0 01/16/2017 [facility] HEMATOLOGY RDW 13.5 11.5 - 14.5 01/16/2017 [facility] HEMATOLOGY MCHC 34.4 32.0 - 36.0 01/16/2017 [facility] HEMATOLOGY MPV 8.2 7.4 - 10.4 01/16/2017 [facility] HEMATOLOGY Platelet 125 133 - 450 01/16/2017 [facility] HEMATOLOGY WBC 9.3 3.7 - 10.4 01/16/2017 [facility] CARDIAC ENZYMES Troponin-I <0.02 0.00 - 0.40 01/16/2017 [facility] CHEM PANEL Lactic Acid Lvl 0.5 0.5 - 2.2 01/16/2017 [facility] URINE AND STOOL UA Urobilinogen <=1.0 mg/dL 0.1 - 1.0 01/15/2017 [facility] URINE AND STOOL UA Glucose 500 mg/dL Negative mg/dL 01/15/2017 [facility] URINE AND STOOL UA Protein >=300 mg/dL Negative mg/dL 01/15/2017 [facility] URINE AND STOOL UA Ketones Negative mg/dL Negative mg/dL 01/15/2017 [facility] URINE AND STOOL UA pH 6.0 5.0 - 8.0 01/15/2017 [facility] URINE AND STOOL UA Spec Grav 1.015 <=1.030 01/15/2017 [facility] URINE AND STOOL UA Turbidity Slight *ABN* (01/15/17 6:19 PM) Clear 01/15/2017 [facility] URINE AND STOOL UA Color Yellow *NA* (01/15/17 6:19 PM) Yellow 01/15/2017 [facility] URINE AND STOOL UA Blood Small *ABN* (01/15/17 6:19 PM) Negative 01/15/2017 [facility] URINE AND STOOL UA Bili Negative *NA* (01/15/17 6:19 PM) Negative 01/15/2017 [facility] URINE AND STOOL UA Nitrite Negative (01/15/17 6:19 PM) Negative 01/15/2017 [facility] URINE AND STOOL UA WBC 8 0 - 5 01/15/2017 [facility] URINE AND STOOL UA Sq Epi Many /LPF Few /LPF 01/15/2017 [facility] URINE AND STOOL UA Leuk Est Negative (01/15/17 6:19 PM) Negative 01/15/2017 [facility] URINE AND STOOL UA Bacteria Occasional /HPF None Seen /HPF 01/15/2017 [facility] URINE AND STOOL UA RBC 8 0 - 2 01/15/2017 [facility] URINE AND STOOL UA Hyal Cast 3 0 - 2 01/15/2017 [facility] RAPID Grp A Strep Scr Negative (01/15/17 5:49 PM) Negative 01/15/2017 [facility] VIRAL - SEROLOGY Influ B Negative (01/15/17 5:49 PM) Negative 01/15/2017 [facility] VIRAL - SEROLOGY Influ A Negative (01/15/17 5:49 PM) Negative 01/15/2017 [facility] CARDIAC ENZYMES CK MB Index 1.4 0.0 - 2.5 01/15/2017 [facility] CARDIAC ENZYMES CK MB 1.1 0.5 - 3.6 01/15/2017 [facility] CARDIAC ENZYMES Troponin-I <0.02 0.00 - 0.40 01/15/2017 [facility] CARDIAC ENZYMES Total CK 80 12 - 191 01/15/2017 [facility] CHEM PANEL Lactic Acid Lvl 1.0 0.5 - 2.2 01/15/2017 [facility] CHEM PANEL Alk Phos 122 39 - 136 01/15/2017 [facility] CHEM PANEL AST 26 0 - 37 01/15/2017 [facility] CHEM PANEL Bili Total 0.5 0.2 - 1.3 01/15/2017 [facility] CHEM PANEL ALT 11 0 - 65 01/15/2017 [facility] CHEM PANEL Albumin Lvl 2.2 3.5 - 5.0 01/15/2017 [facility] CHEM PANEL Total Protein 6.6 6.4 - 8.4 01/15/2017 [facility] CHEM PANEL B/C Ratio 11 6 - 25 01/15/2017 [facility] CHEM PANEL A/G Ratio 0.5 0.7 - 1.6 01/15/2017 [facility] CHEM PANEL Globulin 4.4 2.7 - 4.2 01/15/2017 [facility] HEMATOLOGY PTT 25.1 22.9 - 35.8 01/15/2017 [facility] HEMATOLOGY PT 13.2 12.0 - 14.7 01/15/2017 [facility] HEMATOLOGY INR 0.98 0.85 - 1.17 01/15/2017 [facility] CHEM PANEL Procalcitonin Lvl 0.23 0.00 - 0.10 01/15/2017 [facility] CHEM PANEL B/C Ratio 12 6 - 25 02/20/2016 [facility] CHEM PANEL AGAP 10.5 10.0 - 20.0 02/20/2016 [facility] CHEM PANEL A/G Ratio 0.6 0.7 - 1.6 02/20/2016 [facility] CHEM PANEL Globulin 3.7 2.0 - 4.0 02/20/2016 [facility] CHEM PANEL eGFR 49 02/20/2016 Result Comment: The eGFR is calculated using the CKD-EPI formula. In most young, healthy individuals the eGFR will be >90 mL/min/1.73m2. The eGFR declines with age. An eGFR of 60-89 may be normal in some populations, particularly the elderly, for whom the CKD-EPI formula has not been extensively validated. Use of the eGFR is not recommended in the following populations:

Individuals with unstable creatinine concentrations, including patients and those with serious co-morbid conditions.

Patients with extremes in muscle mass or diet.

The data above are obtained from the National Kidney Disease Education Program (NKDEP) which additionally recommends that when the eGFR is used in patients with extremes of body mass index for purposes of drug dosing, the eGFR should be multiplied by the estimated BMI. [facility] CHEM PANEL Bili Total 0.4 0.2 - 1.3 02/20/2016 [facility] CHEM PANEL Alk Phos 85 39 - 136 02/20/2016 [facility] CHEM PANEL AST 30 0 - 37 02/20/2016 [facility] CHEM PANEL Calcium Lvl 7.5 8.5 - 10.5 02/20/2016 [facility] CHEM PANEL CO2 23 24 - 32 02/20/2016 [facility] CHEM PANEL Chloride Lvl 113 95 - 109 02/20/2016 [facility] CHEM PANEL Potassium Lvl 4.5 3.5 - 5.1 02/20/2016 [facility] CHEM PANEL Sodium Lvl 142 135 - 145 02/20/2016 [facility] CHEM PANEL ALT 14 0 - 65 02/20/2016 [facility] CHEM PANEL Albumin Lvl 2.2 3.5 - 5.0 02/20/2016 [facility] CHEM PANEL Total Protein 5.9 6.4 - 8.4 02/20/2016 [facility] CHEM PANEL Glucose Lvl 183 70 - 99 02/20/2016 [facility] CHEM PANEL Creatinine Lvl 1.17 0.50 - 1.40 02/20/2016 [facility] CHEM PANEL BUN 14 7 - 22 02/20/2016 [facility] HEMATOLOGY Segs 49.5 45.0 - 75.0 02/20/2016 [facility] HEMATOLOGY Segs-Bands # 2.8 1.5 - 8.1 02/20/2016 [facility] HEMATOLOGY Basophils 0.3 0.0 - 1.0 02/20/2016 [facility] HEMATOLOGY Eosinophils 6.6 0.0 - 4.0 02/20/2016 [facility] HEMATOLOGY Monocytes 8.3 2.0 - 12.0 02/20/2016 [facility] HEMATOLOGY Lymphocytes 35.3 20.0 - 40.0 02/20/2016 [facility] HEMATOLOGY Eosinophils # 0.4 0.0 - 0.5 02/20/2016 [facility] HEMATOLOGY Monocytes # 0.5 0.0 - 0.8 02/20/2016 [facility] HEMATOLOGY Lymphocytes # 2.0 1.0 - 5.5 02/20/2016 [facility] HEMATOLOGY MCV 87.6 80.0 - 98.0 02/20/2016 [facility] HEMATOLOGY Hct 27.4 36.0 - 48.0 02/20/2016 [facility] HEMATOLOGY Hgb 9.3 12.0 - 16.0 02/20/2016 [facility] HEMATOLOGY WBC 5.6 3.7 - 10.4 02/20/2016 [facility] HEMATOLOGY MPV 8.5 7.4 - 10.4 02/20/2016 [facility] HEMATOLOGY Platelet 128 133 - 450 02/20/2016 [facility] HEMATOLOGY RBC 3.13 4.20 - 5.40 02/20/2016 [facility] HEMATOLOGY MCH 29.8 27.0 - 31.0 02/20/2016 [facility] [facility] RDW 13.1 11.5 - 14.5 02/20/2016 [facility] HEMATOLOGY MCHC 34.0 32.0 - 36.0 02/20/2016 [facility] CHEM PANEL A/G Ratio 0.7 0.7 - 1.6 02/19/2016 [facility] CHEM PANEL Globulin 3.5 2.0 - 4.0 02/19/2016 [facility] CHEM PANEL AGAP 10.2 10.0 - 20.0 02/19/2016 [facility] CHEM PANEL B/C Ratio 13 6 - 25 02/19/2016 [facility] CHEM PANEL eGFR 60 02/19/2016 Result Comment: The eGFR is calculated using the CKD-EPI formula. In most young, healthy individuals the eGFR will be >90 mL/min/1.73m2. The eGFR declines with age. An eGFR of 60-89 may be normal in some populations, particularly the elderly, for whom the CKD-EPI formula has not been extensively validated. Use of the eGFR is not recommended in the following populations:

Individuals with unstable creatinine concentrations, including patients and those with serious co-morbid conditions.

Patients with extremes in muscle mass or diet.

The data above are obtained from the National Kidney Disease Education Program (NKDEP) which additionally recommends that when the eGFR is used in patients with extremes of body mass index for purposes of drug dosing, the eGFR should be multiplied by the estimated BMI. [facility] CHEM PANEL AST 23 0 - 37 02/19/2016 [facility] CHEM PANEL Albumin Lvl 2.3 3.5 - 5.0 02/19/2016 [facility] CHEM PANEL ALT 17 0 - 65 02/19/2016 [facility] CHEM PANEL Calcium Lvl 7.6 8.5 - 10.5 02/19/2016 [facility] CHEM PANEL Total Protein 5.8 6.4 - 8.4 02/19/2016 [facility] CHEM PANEL Chloride Lvl 109 95 - 109 02/19/2016 [facility] CHEM PANEL CO2 25 24 - 32 02/19/2016 [facility] CHEM PANEL Sodium Lvl 140 135 - 145 02/19/2016 [facility] CHEM PANEL Potassium Lvl 4.2 3.5 - 5.1 02/19/2016 [facility] CHEM PANEL Creatinine Lvl 0.99 0.50 - 1.40 02/19/2016 [facility] CHEM PANEL Alk Phos 71 39 - 136 02/19/2016 [facility] CHEM PANEL Bili Total 0.5 0.2 - 1.3 02/19/2016 [facility] CHEM PANEL Glucose Lvl 171 70 - 99 02/19/2016 [facility] CHEM PANEL BUN 13 7 - 22 02/19/2016 [facility] HEMATOLOGY Lymphocytes # 2.1 1.0 - 5.5 02/19/2016 [facility] HEMATOLOGY Segs-Bands # 2.8 1.5 - 8.1 02/19/2016 [facility] HEMATOLOGY Monocytes # 0.5 0.0 - 0.8 02/19/2016 [facility] HEMATOLOGY Basophils 0.4 0.0 - 1.0 02/19/2016 [facility] HEMATOLOGY Lymphocytes 36.6 20.0 - 40.0 02/19/2016 [facility] HEMATOLOGY Segs 47.9 45.0 - 75.0 02/19/2016 [facility] HEMATOLOGY Monocytes 7.9 2.0 - 12.0 02/19/2016 [facility] HEMATOLOGY Eosinophils 7.2 0.0 - 4.0 02/19/2016 [facility] HEMATOLOGY Eosinophils # 0.4 0.0 - 0.5 02/19/2016 [facility] HEMATOLOGY MCH 29.5 27.0 - 31.0 02/19/2016 [facility] HEMATOLOGY RDW 13.1 11.5 - 14.5 02/19/2016 [facility] HEMATOLOGY MCHC 33.8 32.0 - 36.0 02/19/2016 [facility] HEMATOLOGY Platelet 115 133 - 450 02/19/2016 [facility] HEMATOLOGY MCV 87.2 80.0 - 98.0 02/19/2016 [facility] HEMATOLOGY Hct 28.5 36.0 - 48.0 02/19/2016 [facility] HEMATOLOGY Hgb 9.6 12.0 - 16.0 02/19/2016 [facility] HEMATOLOGY RBC 3.26 4.20 - 5.40 02/19/2016 [facility] HEMATOLOGY MPV 8.0 7.4 - 10.4 02/19/2016 [facility] HEMATOLOGY WBC 5.8 3.7 - 10.4 02/19/2016 [facility] CHEM PANEL Lipase Lvl 253 73 - 393 02/18/2016 [facility] CHEM PANEL eGFR 55 02/18/2016 Result Comment: The eGFR is calculated using the CKD-EPI formula. In most young, healthy individuals the eGFR will be >90 mL/min/1.73m2. The eGFR declines with age. An eGFR of 60-89 may be normal in some populations, particularly the elderly, for whom the CKD-EPI formula has not been extensively validated. Use of the eGFR is not recommended in the following populations:

Individuals with unstable creatinine concentrations, including patients and those with serious co-morbid conditions.

Patients with extremes in muscle mass or diet.

The data above are obtained from the National Kidney Disease Education Program (NKDEP) which additionally recommends that when the eGFR is used in patients with extremes of body mass index for purposes of drug dosing, the eGFR should be multiplied by the estimated BMI. [facility] CHEM PANEL AGAP 11.4 10.0 - 20.0 02/18/2016 [facility] CHEM PANEL Calcium Lvl 7.8 8.5 - 10.5 02/18/2016 [facility] CHEM PANEL Creatinine Lvl 1.07 0.50 - 1.40 02/18/2016 [facility] CHEM PANEL Potassium Lvl 4.4 3.5 - 5.1 02/18/2016 [facility] CHEM PANEL Sodium Lvl 140 135 - 145 02/18/2016 [facility] CHEM PANEL CO2 27 24 - 32 02/18/2016 [facility] CHEM PANEL Chloride Lvl 106 95 - 109 02/18/2016 [facility] CHEM PANEL BUN 17 7 - 22 02/18/2016 [facility] CHEM PANEL Glucose Lvl 155 70 - 99 02/18/2016 [facility] CARDIAC ENZYMES Troponin-T <0.010 0.000 - 0.100 02/18/2016 [facility] CARDIAC ENZYMES Troponin-I <0.02 0.00 - 0.40 02/18/2016 [facility] CARDIAC ENZYMES Total CK 42 12 - 191 02/18/2016 [facility] CHEM PANEL ALT 18 0 - 65 02/18/2016 [facility] CHEM PANEL Alk Phos 95 39 - 136 02/18/2016 [facility] CHEM PANEL AST 23 0 - 37 02/18/2016 [facility] CHEM PANEL Globulin 4.3 2.0 - 4.0 02/18/2016 [facility] CHEM PANEL Albumin Lvl 2.9 3.5 - 5.0 02/18/2016 [facility] CHEM PANEL Bili Total 0.4 0.2 - 1.3 02/18/2016 [facility] CHEM PANEL A/G Ratio 0.7 0.7 - 1.6 02/18/2016 [facility] CHEM PANEL Total Protein 7.2 6.4 - 8.4 02/18/2016 [facility] CHEM PANEL B/C Ratio 18 6 - 25 02/18/2016 [facility] HEMATOLOGY Eosinophils # 0.3 0.0 - 0.5 02/18/2016 [facility] HEMATOLOGY Monocytes # 0.5 0.0 - 0.8 02/18/2016 [facility] HEMATOLOGY Eosinophils 4.0 0.0 - 4.0 02/18/2016 [facility] HEMATOLOGY Segs 64.9 45.0 - 75.0 02/18/2016 [facility] HEMATOLOGY Lymphocytes 25.2 20.0 - 40.0 02/18/2016 [facility] HEMATOLOGY Basophils 0.2 0.0 - 1.0 02/18/2016 [facility] HEMATOLOGY Monocytes 5.7 2.0 - 12.0 02/18/2016 [facility] HEMATOLOGY Lymphocytes # 2.2 1.0 - 5.5 02/18/2016 [facility] HEMATOLOGY Segs-Bands # 5.6 1.5 - 8.1 02/18/2016 [facility] HEMATOLOGY WBC 8.7 3.7 - 10.4 02/18/2016 [facility] HEMATOLOGY MCV 86.3 80.0 - 98.0 02/18/2016 [facility] HEMATOLOGY RBC 3.71 4.20 - 5.40 02/18/2016 [facility] HEMATOLOGY Hgb 11.2 12.0 - 16.0 02/18/2016 [facility] HEMATOLOGY MCH 30.2 27.0 - 31.0 02/18/2016 [facility] HEMATOLOGY Hct 32.0 36.0 - 48.0 02/18/2016 [facility] HEMATOLOGY RDW 13.1 11.5 - 14.5 02/18/2016 [facility] HEMATOLOGY Platelet 144 133 - 450 02/18/2016 [facility] HEMATOLOGY MCHC 35.0 32.0 - 36.0 02/18/2016 [facility] HEMATOLOGY MPV 8.2 7.4 - 10.4 02/18/2016 [facility] SPECIAL CHEMISTRY Hgb A1C 13.2 <=5.6 % 02/18/2016 [facility] CARDIAC ENZYMES Troponin-T <0.010 0.000 - 0.100 02/18/2016 [facility] CARDIAC ENZYMES Troponin-I <0.02 0.00 - 0.40 02/18/2016 [facility] CARDIAC ENZYMES Total CK 69 12 - 191 02/18/2016 [facility] LIPIDS VLDL 55 02/18/2016 [facility] LIPIDS Trig 274 <=149 mg/dL 02/18/2016 [facility] LIPIDS Chol 180 <=199 mg/dL 02/18/2016 [facility] LIPIDS HDL 38 >=61 mg/dL 02/18/2016 [facility] LIPIDS CHD Risk 4.74 3.90 - 5.80 02/18/2016 [facility] LIPIDS LDL (Calculated) 87 <=99 mg/dL 02/18/2016 [facility] URINE AND STOOL Micro? Performed (02/17/16 4:37 PM) 02/17/2016 [facility] URINE AND STOOL UA Leuk Est Negative (02/17/16 4:37 PM) Negative 02/17/2016 [facility] URINE AND STOOL UA Nitrite Negative (02/17/16 4:37 PM) Negative 02/17/2016 [facility] URINE AND STOOL UA Blood Trace *ABN* (02/17/16 4:37 PM) Negative 02/17/2016 [facility] URINE AND STOOL UA Bili Negative *NA* (02/17/16 4:37 PM) Negative 02/17/2016 [facility] URINE AND STOOL UA Urobilinogen 0.2 0.1 - 1.0 02/17/2016 [facility] URINE AND STOOL UA Protein Trace *ABN* (02/17/16 4:37 PM) Negative 02/17/2016 [facility] URINE AND STOOL UA Glucose >=1000 mg/dL Negative mg/dL 02/17/2016 [facility] URINE AND STOOL UA Ketones Negative *NA* (02/17/16 4:37 PM) Negative 02/17/2016 [facility] URINE AND STOOL UA Color Yellow *NA* (02/17/16 4:37 PM) Yellow 02/17/2016 [facility] URINE AND STOOL UA pH 6.0 5.0 - 8.0 02/17/2016 [facility] URINE AND STOOL UA Turbidity Slight Cloudy (02/17/16 4:37 PM) Clear 02/17/2016 [facility] URINE AND STOOL UA Spec Grav 1.019 <=1.030 02/17/2016 [facility] URINE AND STOOL UA Bacteria Many /HPF None Seen /HPF 02/17/2016 [facility] URINE AND STOOL UA RBC None Seen (02/17/16 4:37 PM) 0 - 2 02/17/2016 [facility] URINE AND STOOL UA Sq Epi Occasional /LPF Few /LPF 02/17/2016 [facility] URINE AND STOOL UA WBC None Seen (02/17/16 4:37 PM) None Seen 02/17/2016 [facility] IMMUNOLOGY [place]-Hep C Ab Posit zaria *NA* (02/17/16 2:19 PM) Negative 02/17/2016 [facility] IMMUNOLOGY CDC HIV 4th GEN Negat zaria (02/17/16 2:19 PM) Negative 02/17/2016 [facility] IMMUNOLOGY [place]-Hep C Ab Posit zaria *NA* (02/17/16 2:19 PM) Negative 02/17/2016 [facility] CARDIAC ENZYMES CK-MB INDEX see note 0.0 - 2.5 02/17/2016 Result Comment: result not reported due to low MMB value. TG [facility] CARDIAC ENZYMES Troponin-I <0.02 0.00 - 0.40 02/17/2016 [facility] CARDIAC ENZYMES CK MB <0.5 ng/mL 0.5 - 3.6 02/17/2016 [facility] CARDIAC ENZYMES Total CK 43 12 - 191 02/17/2016 [facility] CHEM PANEL Bili Direct 0.1 0.0 - 0.3 02/17/2016 [facility] CHEM PANEL Bili Indirect 0.3 0.0 - 1.0 02/17/2016 [facility] CHEM PANEL Magnesium Lvl 2.2 1.8 - 2.4 02/17/2016 [facility] CHEM PANEL Phosphorus 3.9 2.5 - 4.5 02/17/2016 [facility] CHEM PANEL Lipase Lvl 1046 73 - 393 02/17/2016 [facility] URINE AND STOOL UA RBC 0-2 /HPF 0 - 2 02/17/2016 [facility] URINE AND STOOL UA Bacteria Many /HPF None Seen /HPF 02/17/2016 [facility] URINE AND STOOL UA WBC 11-20 /HPF None Seen /HPF 02/17/2016 [facility] URINE AND STOOL Micro? Performed (02/17/16 1:18 PM) 02/17/2016 [facility] URINE AND STOOL UA Sq Epi Moderate /LPF Few /LPF 02/17/2016 [facility] URINE AND STOOL UA Blood Trace *ABN* (02/17/16 1:18 PM) Negative 02/17/2016 [facility] URINE AND STOOL UA Nitrite Negative (02/17/16 1:18 PM) Negative 02/17/2016 [facility] URINE AND STOOL UA Leuk Est Negative (02/17/16 1:18 PM) Negative 02/17/2016 [facility] URINE AND STOOL UA Glucose >=1000 mg/dL Negative mg/dL 02/17/2016 [facility] URINE AND STOOL UA Bili Negative *NA* (02/17/16 1:18 PM) Negative 02/17/2016 [facility] URINE AND STOOL UA Ketones Negative *NA* (02/17/16 1:18 PM) Negative 02/17/2016 [facility] URINE AND STOOL UA Urobilinogen 0.2 0.1 - 1.0 02/17/2016 [facility] URINE AND STOOL UA Protein 30 mg/dL Negative mg/dL 02/17/2016 [facility] URINE AND STOOL UA Color Yellow *NA* (02/17/16 1:18 PM) Yellow 02/17/2016 [facility] URINE AND STOOL UA Spec Grav 1.023 <=1.030 02/17/2016 [facility] URINE AND STOOL UA Turbidity Slight Cloudy (02/17/16 1:18 PM) Clear 02/17/2016 [facility] URINE AND STOOL UA pH 6.0 5.0 - 8.0 02/17/2016 [facility] URINE AND STOOL UA Urobilinogen <=1.0 mg/dL 0.1 - 1.0 07/19/2014 [facility] URINE AND STOOL UA Color Ltyellow 07/19/2014 [facility] URINE AND STOOL UA Hyal Cast 1 0 - 2 07/19/2014 [facility] URINE AND STOOL UA Bacteria Occasional /HPF None Seen /HPF 07/19/2014 [facility] URINE AND STOOL UA Blood Small *ABN* (07/18/14 8:55 PM) Negative 07/19/2014 [facility] URINE AND STOOL UA Bili Negative *NA* (07/18/14 8:55 PM) Negative 07/19/2014 [facility] URINE AND STOOL UA Ketones Negative mg/dL Negative mg/dL 07/19/2014 [facility] URINE AND STOOL UA Glucose 500 mg/dL Negative mg/dL 07/19/2014 [facility] URINE AND STOOL UA pH 5.0 5.0 - 8.0 07/19/2014 [facility] URINE AND STOOL UA Protein 30 mg/dL Negative mg/dL 07/19/2014 [facility] URINE AND STOOL UA Spec Grav 1.016 <=1.030 07/19/2014 [facility] URINE AND STOOL UA Turbidity Slight *ABN* (07/18/14 8:55 PM) Clear 07/19/2014 [facility] URINE AND STOOL UA RBC 1 0 - 2 07/19/2014 [facility] URINE AND STOOL UA WBC 3 0 - 5 07/19/2014 [facility] URINE AND STOOL UA Sq Epi Moderate /LPF Few /LPF 07/19/2014 [facility] URINE AND STOOL UA Leuk Est Negative (07/18/14 8:55 PM) Negative 07/19/2014 [facility] URINE AND STOOL UA Nitrite Negative (07/18/14 8:55 PM) Negative 07/19/2014 [facility] CARDIAC ENZYMES Troponin-I <0.02 0.00 - 0.40 07/19/2014 [facility] CHEM PANEL Magnesium Lvl 2.2 1.8 - 2.4 07/19/2014 [facility] CHEM PANEL eGFR 40 07/19/2014 <sup>1</sup>Result Comment: The eGFR is calculated using the CKD-EPI formula. In most young, healthy individuals the eGFR will be >90 mL/min/1.73m2. The eGFR declines with age. An eGFR of 60-89 may be normal in some populations, particularly the elderly, for whom the CKD-EPI formula has not been extensively validated. Use of the eGFR is not recommended in the following populations:& lt;br/>
Individuals with unstable creatinine concentrations, including patients and those with serious co-morbid conditions.

Patients with extremes in muscle mass or diet.

The data above are obtained from the National Kidney Disease Education Program (NKDEP) which additionally recommends that when the eGFR is used in patients with extremes of body mass index for purposes of drug dosing, the eGFR should be multiplied by the estimated BMI. [facility] CHEM PANEL Alk Phos 174 39 - 136 07/19/2014 [facility] CHEM PANEL AST 32 0 - 37 07/19/2014 [facility] CHEM PANEL Albumin Lvl 3.5 3.5 - 5.0 07/19/2014 [facility] CHEM PANEL ALT 29 0 - 65 07/19/2014 [facility] CHEM PANEL Total Protein 8.9 6.4 - 8.4 07/19/2014 [facility] CHEM PANEL Bili Total 0.3 0.2 - 1.3 07/19/2014 [facility] CHEM PANEL Glucose Lvl 360 70 - 99 07/19/2014 <sup>2</sup>Interpretive Data: Adult ref erence range values reflect the clinical guidelines
of the [place] [employer]. [facility] CHEM PANEL BUN 19 7 - 22 07/19/2014 [facility] CHEM PANEL Potassium Lvl 4.5 3.5 - 5.1 07/19/2014 [facility] CHEM PANEL Sodium Lvl 134 135 - 145 07/19/2014 [facility] CHEM PANEL Creatinine Lvl 1.4 0.5 - 1.4 07/19/2014 [facility] CHEM PANEL Chloride Lvl 100 95 - 109 07/19/2014 [facility] CHEM PANEL CO2 33 24 - 32 07/19/2014 [facility] CHEM PANEL Calcium Lvl 9.0 8.5 - 10.5 07/19/2014 [facility] CHEM PANEL A/G Ratio 0.6 0.7 - 1.6 07/19/2014 [facility] CHEM PANEL Globulin 5.4 2.0 - 4.0 07/19/2014 [facility] CHEM PANEL AGAP 5.5 10.0 - 20.0 07/19/2014 [facility] CHEM PANEL B/C Ratio 14 6 - 25 07/19/2014 [facility] HEMATOLOGY MPV 9.0 7.4 - 10.4 07/19/2014 [facility] HEMATOLOGY Hgb 11.8 12.0 - 16.0 07/19/2014 [facility] HEMATOLOGY WBC 5.4 3.7 - 10.4 07/19/2014 [facility] HEMATOLOGY RBC 3.81 4.20 - 5.40 07/19/2014 [facility] HEMATOLOGY MCV 90.8 80.0 - 98.0 07/19/2014 [facility] HEMATOLOGY MCH 31.0 27.0 - 31.0 07/19/2014 [facility] HEMATOLOGY Hct 34.6 36.0 - 48.0 07/19/2014 [facility] HEMATOLOGY RDW 13.8 11.5 - 14.5 07/19/2014 [facility] HEMATOLOGY MCHC 34.2 32.0 - 36.0 07/19/2014 [facility] HEMATOLOGY Platelet 156 133 - 450 07/19/2014 [facility] HEMATOLOGY Monocytes # 0.4 0.0 - 0.8 07/19/2014 [facility] HEMATOLOGY Eosinophils # 0.3 0.0 - 0.5 07/19/2014 [facility] HEMATOLOGY Lymphocytes 26.6 20.0 - 40.0 07/19/2014 [facility] HEMATOLOGY Segs 60.7 45.0 - 75.0 07/19/2014 [facility] HEMATOLOGY Monocytes 7.2 2.0 - 12.0 07/19/2014 [facility] HEMATOLOGY Eosinophils 5.1 0.0 - 4.0 07/19/2014 [facility] HEMATOLOGY Basophils 0.4 0.0 - 1.0 07/19/[address] [facility] Segs-Bands # 3.3 1.5 - 8.1 07/19/[address] [facility] Lymphocytes # 1.4 1.0 - 5.5 07/19/2014 [facility] Pathology Reports No Data Provided for This Section Diagnostic Reports Report Value Date Source Spine lumbar wo contrast MRI P ROCEDURE INFORMATION: Exam: MR Lumbar Spine Without Contrast. Exam date and time: 06/03/2020 12:10 AM Age: 70 years old Clinical indication: Injury or trauma; Fall; Additional info: /osteomyelitis TECHNIQUE: Imaging protocol: Multiplanar magnetic resonance images of the lumbar spine without intravenous contrast. COMPARISON: SPINE LUMBAR WO CONTRAST CT (ER) 10/26/2019 10:22 PM FINDINGS: Vertebrae: There is a superior endplate fracture deformity of the L1 vertebral body with compensatory widening of the T12-L1 disc , associated Schmorl's node and a 30-40% loss of height centrally. There is no retropulsion of the posterior cortical margin. There is minimal sub endplate edema. There is a quite capacious spinal canal without central canal stenosis. The posterior elements are intact. There was a superior endplate fracture deformity present on the CT study of 2019 with progressive loss of height. Spinal cord: See 'Vertebrae' finding. L1-L2: No significant disc disease. No significant spinal canal stenosis. No neural foraminal stenosis. L2-L3: No significant disc disease. No significant spinal canal stenosis. No neural foraminal stenosis. L3-L4: At the L3-L4 disc space, there is a 4-5 mm diffuse bulging annulus, hypertrophic facets and ligamentum flavum with severe lateral and central canal stenosis, which was present previously. L4-L5: At the L4-L5 disc space, there is a 4 mm right and a 5 mm left lateral broad-based bulging annulus, hypertrophic facets, ligamentum flavum and a short pedicle configuration of the spinal canal with severe lateral and central canal stenosis which was present previously. The study is degraded by patient motion. L5-S1: No significant disc disease. No significant spinal canal stenosis. No neural foraminal stenosis. Soft tissues: The psoas and spinae erectae muscles are normal. The parially visualized sacral iliac joints are normal. IMPRESSION: There is a superior endplate fracture deformity of the L1 vertebral body with compensatory widening of the T12-L1 disc , associated Schmorl's node and a 30-40% loss of height centrally. There is no retropulsion of the posterior cortical margin. There is minimal sub endplate edema. There is a quite capacious spinal canal without central canal stenosis. The posterior elements are intact. There was a superior endplate fracture deformity present on the CT study of 2019 with progressive loss of height. There is an underlying short pedicle configuration of the spinal canal with severe persistent lateral and central canal stenosis at L3-L4 and L4-L5. Frederick Somers MD On 06/03/2020 08:20:27; [id number] 06/02/2020 [facility] Brain wo contrast CT Radiation Dose CTDIVOL = 0 (mGy): DLP = 1588.8 (mGy-cm) PROCEDURE INFORMATION: Exam: CT Head Without Contrast Exam date and time: 06/02/2020 12:42 AM Age: 70 years old Clinical indication: Injury or trauma; Fall; Additional info: /post follow up fall TECHNIQUE: Imaging protocol: Computed tomography of the head without contrast. Radiation optimization: All CT scans at this facility use at least one of these dose optimization techniques: automated exposure control; mA and/or kV adjustment per patient size (includes targeted exams where dose is matched to clinical indication); or iterative reconstruction. COMPARISON: BRAIN WO CONTRAST CT 05/31/2020 7:57 AM. Comparison is made MR study of June 01, 2020 RADIATION DOSE METRICS: Total DLP (mGy-cm): 1588.8 FINDINGS: Brain: There is a subtle chronic lacunar infarct in the genu of the right internal capsule. There is minimal to moderate central/cortical atrophy. There are no extra-axial fluid collections. There is no acute cortical infarct, parenchymal hemorrhage or intra axial mass. Sellae and para sellae structures are normal for age. There is no tonsillar ectopia. Ventricles: There is minimal ventriculomegaly. Bones/joints: There is no fracture maxilla, zygomatic arches, nasal bone, orbital fossa or cranium. Sinuses: Mucosal inflammatory changes, hyperdense mucous and thickening of the wall the left maxillary sinus is present and stable. Mastoid air cells: Visualized middle ear cavity, antrum and mastoid air cells are normally aerated. Soft tissues: Unremarkable. IMPRESSION: There is a subtle chronic lacunar infarct in the genu of the right internal capsule. There is minimal to moderate central/cortical atrophy. There are no extra-axial fluid collections. There is no acute cortical infarct, parenchymal hemorrhage or intra axial mass. Mucosal inflammatory changes, hyperdense mucous and thickening of the wall the left maxillary sinus is present and stable. Frederick Somers MD On 06/02/2020 08:21:26; [id number] 06/02/2020 [facility] Brain wo contrast MRI PROCEDUR E INFORMATION: Exam: MR Head Without Contrast Exam date and time: 06/01/2020 12:59 AM Age: 70 years old Clinical indication: Altered mental status/memory loss; Confusion or disorientation; Additional info: /rule out CVA TECHNIQUE: Imaging protocol: MR of the head without contrast. COMPARISON: BRAIN WO CONTRAST MRI 05/24/2020 10:20 PM, CT head 05/31/2020 FINDINGS: Brain: No restricted diffusion to suggest an acute infarct. No intracranial mass, mass effect, midline shift or extra-axial fluid collection. Very minimal scattered deep white matter T2/FLAIR hyperintensities are identified, nonspecific but may represent very minimal chronic ischemic small vessel changes. Mild generalized cerebral volume loss. Right internal capsule genu chronic lacunar infarct versus prominent perivascular space, unchanged. Ventricles: No ventriculomegaly. Bones/joints: Unremarkable. Sinuses: Moderate left maxillary sinus opacification. Mastoid air cells: No mastoid effusion. IMPRESSION: No acute infarct or other acute intracranial abnormality. Mild generalized cerebral volume loss. Chronic left maxillary sinusitis. Aristides Magdaleno MD On 06/01/2020 02:25:42; [id number] 06/01/2020 [facility] Chest 1view DX PROCEDURE INFOR MATION: Exam: XR Chest, 1 View Exam date and time: 05/31/2020 8:00 AM Age: 70 years old Clinical indication: /ams TECHNIQUE: Imaging protocol: XR of the chest Views: 1 view. COMPARISON: CHEST WO CONTRAST CT 05/23/2020 6:08 PM FINDINGS: Left internal jugular tunneled vascular access device with tip projecting over the expected region of the low right atrium. Lungs: Low lung volumes are present bilaterally. Left lung base airspace opacity. Pleural space: Unremarkable. No pleural effusion. No pneumothorax. Heart/Mediastinum: Heart size is within normal limits. Atherosclerotic calcifications. Coronary artery stents. Bones/joints: Unremarkable. Degenerative changes of the thoracic spine. Median sternotomy wires. IMPRESSION: Left lung base airspace opacity may represent atelectasis or developing pneumonia. Hemal Funes MD On 05/31/2020 08:31:51; [id number] 05/31/2020 [facility] Brain wo contrast CT Radiation Dose CTDIVOL = 0 (mGy): DLP = 1228.53 (mGy-cm) PROCEDURE INFORMATION: Exam: CT Head Without Contrast Exam date and time: 05/31/2020 7:57 AM Age: 70 years old Clinical indication: /ams TECHNIQUE: Imaging protocol: Computed tomography of the head without contrast. Radiation optimization: All CT scans at this facility use at least one of these dose optimization techniques: automated exposure control; mA and/or kV adjustment per patient size (includes targeted exams where dose is matched to clinical indication); or iterative reconstruction. COMPARISON: BRAIN WO CONTRAST CT 05/23/2020 6:04 PM. Comparison is made to the MR study of May 24, 2020 RADIATION DOSE METRICS: Total DLP (mGy-cm): 1228.53 FINDINGS: Brain: The study is degraded by patient motion despite repeat scanning sequences. There is moderate central/cortical atrophy present. There are no extra-axial fluid collections. There is a chronic lacunar infarct in the genu of the right internal capsule. There is no acute cortical infarct, parenchymal hemorrhage or intra axial mass. Sellae and para sellae structures are normal for age. There is no tonsillar ectopia. Ventricles: There is ventriculomegaly. Bones/joints: Unremarkable. No acute fracture. Sinuses: There is mucosal inflammatory changes/mucous retention cyst in the left maxillary sinus with thickening of the wall denoting chronic sinusitis. Mastoid air cells: Visualized middle ear cavity, antrum and mastoid air cells are normally aerated. Soft tissues: Unremarkable. IMPRESSION: There is no acute cortical infarct, hemorrhage or intra axial mass. There is moderate central/cortical atrophy with associated ventriculomegaly. There is a chronic lacunar infarct in the genu of the right internal capsule. There are no extra-axial fluid collections. Chronic mucosal inflammatory changes are demonstrated left maxillary sinus. Frederick Somers MD On 05/31/2020 08:24:08; [id number] 05/31/2020 [facility] Brain wo contrast MRI PROCEDUR E INFORMATION: Exam: MR Head Without Contrast Exam date and time: 05/24/2020 10:20 PM Age: 70 years old Clinical indication: Altered mental status/memory loss; Confusion or disorientation; Additional info: /ams TECHNIQUE: Imaging protocol: MR of the head without contrast. COMPARISON: BRAIN WO CONTRAST MRI 02/15/2018 1:55 AM FINDINGS: Brain: Normal nolasco whitter matter interface. No abnormal areas of signal intensity identified on diffusion weighted imaging to suggest an acute infarction. No abnormal areas of signal intensity about the brain. No significant extraaxial fluid collection, mass effect or shift. Ventricles: Ventricles and sulci are enlarged for the patient's age but not out of proportion to each other. Findings consistent with cerebral atrophy. Bones/joints: Unremarkable. Sinuses: Large amount of left maxillary sinus disease. Mastoid air cells: Normal as visualized. Orbits: Unremarkable. Soft tissues: Unremarkable. Other findings: Minimal right petrous apicitis. IMPRESSION: 1. Cerebral atrophy. 2. Large amount of left maxillary sinus disease. 3. Minimal right petrous apicitis. 4. Otherwise unremarkable brain MRI with out contrast. Luis Wilde MD On 05/25/2020 07:47:15; [id number] 05/24/2020 [facility] Abdomen AP DX Some right upper quadrant surgical clips noted. Likely from cholecystectomy. Emily Martin MD On 05/24/2020 20:02:52; [id number] PROCEDURE INFORMATION: Exam: XR Abdomen, 1 View Exam date and time: 05/24/2020 7:11 PM Age: 70 years old Clinical indication: Screening exam; Other: Mri screening; Additional info: /clearance for mri? TECHNIQUE: Imaging protocol: XR of the abdomen. Views: Frontal supine view of the abdomen. 1 View. COMPARISON: ABDOMEN/PELVIS WO IV CONTRAST CT 12/11/2019 5:13 PM FINDINGS: Gastrointestinal tract: Moderate fecal retention noted. Otherwise the bowel gas pattern is nonspecific and nonobstructive. Bones/joints: No acute pathology appreciated. Soft tissues: No abnormal radiopaque densities. IMPRESSION: 1. Moderate fecal retention suggesting c onstipation, please correlate. 2. CT follow up recommended if ongoing c linical concern. Emily Martin MD On 05/24/2020 20:02:04; [id number] 05/24/2020 [facility] Chest wo contrast CT Radiation Dose CTDIVOL = 0 (mGy): DLP = 298.02 (mGy-cm) PROCEDURE INFORMATION: Exam: CT Chest Without Contrast Exam date and time: 05/23/2020 6:08 PM Age: 70 years old Clinical indication: /ams, evidence of pna? . Confusion, weakness, back pain; On tx for UTI; Pmh esrd, dm; Last dialysis Sunday TECHNIQUE: Imaging protocol: Computed tomography of the chest without contrast. Radiation optimization: All CT scans at this facility use at least one of these dose optimization techniques: automated exposure control; mA and/or kV adjustment per patient size (includes targeted exams where dose is matched to clinical indication); or iterative reconstruction. COMPARISON: CHEST, ABDOMEN, PELVIS WO CONTRAST CT 07/28/2018 10:01 PM RADIATION DOSE METRICS: Total DLP (mGy-cm): 298.02 FINDINGS: Tubes, catheters and devices: Left internal jugular central line is seen. Lungs: Left basilar scarring is seen. No mass or nodule is noted. Subsegmental atelectasis of the right middle lobe is seen. Pleural space: Unremarkable. No pneumothorax. No pleural effusion. Heart: Coronary artery calcifications are seen. Aorta: Aortic annular and thoracic aortic calcifications are seen. No thoracic aortic aneurysm is noted. Lymph nodes: Unremarkable. No enlarged lymph nodes. Liver: The visualized liver is cirrhotic in morphology. Gallbladder and bile ducts: Changes of cholecystectomy are seen. Spleen: Calcified splenic granulomas are noted. Bones/joints: Unremarkable. No acute fracture. Soft tissues: Hypodense sebaceous cyst in the anterior superficial soft tissues superficial to the manubrium is seen measuring 2.1 x 1.8 cm. IMPRESSION: No acute cardiopulmonary disease. Cheikh West MD On 05/23/2020 19:07:13; [id number] 05/23/2020 [facility] Brain wo contrast CT Radiation Dose CTDIVOL = 0 (mGy): DLP = 859.97 (mGy-cm) PROCEDURE INFORMATION: Exam: CT Head Without Contrast Exam date and time: 05/23/2020 6:04 PM Age: 70 years old Clinical indication: /ams. Confusion, weakness, back pain; On tx for UTI; Pmh esrd, dm; Last dialysis Sunday TECHNIQUE: Imaging protocol: Computed tomography of the head without contrast. Radiation optimization: All CT scans at this facility use at least one of these dose optimization techniques: automated exposure control; mA and/or kV adjustment per patient size (includes targeted exams where dose is matched to clinical indication); or iterative reconstruction. COMPARISON: BRAIN WO CONTRAST CT 12/05/2019 1:49 PM RADIATION DOSE METRICS: Total DLP (mGy-cm): 859.97 FINDINGS: Brain: Age-appropriate cortical and cerebellar volume loss with compensatory enlargement of the adjacent subarachnoid spaces and ventricles. Mild chronic microangiopathic change at the deep white matter structures. Subcentimeter chronic appearing lacunar infarctions at the basal ganglia bilaterally.No subacute infarct. No acute intracranial hemorrhage. No mass effect or midline shift. Ventricles: The ventricles are otherwise normal in size, shape and position. Bones/joints: The base of skull and bony calvarium are intact. Sinuses: Mucosal thickening at the medial wall of the visualized left maxillary antrum. Visualized sinuses are otherwise unremarkable. No fluid levels. Mastoid air cells: Visualized mastoid air cells are well aerated. Vasculature: Vascular calcification at the carotid siphons and/or vertebrobasilar arteries. Soft tissues: Unremarkable. IMPRESSION: 1. No acute intracranial abnormality. 2. Senescent involutional and chronic is chemic changes are noted intracranially. 3. Minimal chronic left maxillary sinusi tis as visualized. Ivan Villafana MD On 05/23/2020 19:05:08; [id number] 05/23/2020 [facility] Chest 1view DX PROCEDURE INFOR MATION: Exam: XR Chest, 1 View Exam date and time: 05/23/2020 11:56 AM Age: 70 years old Clinical indication: Pain; Additional info: Chest pain/chest pain TECHNIQUE: Imaging protocol: XR of the chest Views: 1 view. COMPARISON: 1. CR CHEST 1VIEW DX 12/30/2019 11:35 AM 2. CHEST 1VIEW DX 12/11/2019 3:53 PM FINDINGS: Tubes, catheters and devices: Stable dialysis catheter. Lungs: Pulmonary vascular congestion. Pleural space: No pleural abnormality. Heart/Mediastinum: Coronary artery stents noted. Vasculature: Calcified plaque within the aorta. Bones/joints: Prior sternotomy. Midline stable cardiomegaly. Other than degenerative changes, the bones are intact. No acute skeletal process or focal bone lesion. Soft tissues: Linear atelectasis over the left mid to lower chest. No consolidation. IMPRESSION: 1. Expiratory exam with stable cardiomeg brian and mild vascular congestion. 2. Development of atelectatic changes at the left mid to lower chest. 3. Atherosclerotic aorta. Coronary arter y stents. 4. Stable dialysis catheter positioned o carmen the inferior aspect of the ri the ght atrium. Alberto Barrios MD On 05/23/2020 12:29:57; [id number] 05/23/2020 [facility] Cardiac SPECT [facility] studies NM Myocardial Perfusion SPECT Imaging with IV Regadenoson STRESS ECG RESULTS: The patient was stressed by intravenous regadenoson 0.4 mg / 5 mL per the protocol and was monitored by ECG. Aminophylline was given if indicated. No cardiac symptoms were reported during stress or in the recovery period. The heart rate janette from 76 beats/min at rest to a maximum of 91 beats/min during stress, which is 59% of the predicted maximum. This response is normal for regadenoson. The post recovery rate was normal. The resting blood pressure was 133/60 mmHg at rest to 112/52 mmHg during stress. The resting ECG showed sinus rhythm. No significant ST or T-wave changes were noted with stress. No significant arrhythmias were detected during stress or in the recovery period. MYOCARDIAL PERFUSION IMAGING: Gated myocardial perfusion SPECT imaging was carried out using a 1 day rest/stress protocol. 11 mCi Tc-99m sestamibi was given intravenously at rest followed by an intravenous injection 32 mCi of Tc-99m sestamibi during the stress portion. Study quality is technically adequate. Both sets of images are within normal limits. CONCLUSIONS: 1. Myocardial perfusion imaging is cathy l. 2. No scan evidence of ischemia or scar 3. Overall left ventricular systolic fun ction is normal with normal wall motion. 4. Normal gated SPECT left ventricular e jection fraction >54%. 5. Normal left ventricular size. 6. No previous study for comparison. 7. Please refer to ECG stress report for details of tracing interpretation. 03/02/2020 [facility] bilateral DX EXAM: Ribs b ilateral DX HISTORY: - R07.81 Pleurodynia COMPARISON: None Bilateral rib series IMPRESSION: Possible nondisplaced distal left 9th rib fracture. Left subclavian central line is unchanged. Coronary stents and median sternotomy. 01/06/2020 [facility] CTA Radiation Dose CTDIV OL = 0 (mGy): DLP = 1043.56 (mGy-cm) PROCEDURE INFORMATION: Exam: CT Angiography Head Without And With Contrast Exam date and time: 12/30/2019 2:15 PM Age: 69 years old Clinical indication: /headache TECHNIQUE: Imaging protocol: Computed tomographic angiography of the head without and with intravenous contrast. 3D rendering: MIP and/or 3D reconstructe d images were created by the technologist. Total DLP: 1043.56 mGy-cm Radiation optimization: All CT scans at this facility use at least one of these dose optimization techniques: automated exposure control; mA and/or kV adjustment per patient size (includes targeted exams where dose is matched to clinical indication); or iterative reconstruction. Contrast material: OMNI; Contrast volume: 100 ml; Contrast route: IV; COMPARISON: BRAIN WO CONTRAST CT 12/05/2019 1:49 PM FINDINGS: - Atherosclerotic calcifications along the distal vertebral and cavernous carotid arteries. No definite evidence of aneurysm, malformation, significant stenosis or other significant abnormality of the [place], the intracranial segments of the internal carotid, vertebral, or basilar arteries, or their primary branches. No right posterior communicating artery is identified, an anatomic variant. Imaged portions of the cerebral veins and dural sinuses are patent. - Moderate diffuse white matter hypoattenuation in a non-specific pattern, commonly due to chronic microangiopathic ischemic gliosis. No abnormal parenchymal, ependymal, or meningeal enhancement. No acute transcortical infarct. No intracranial hemorrhage. No intracranial mass. No hydrocephalus. No significant midline shift. No significant effacement of the basal cisterns. - Left maxillary sinus mucosal thickening and wall hyperostosis from severe chronic sinusitis. Left maxillary sinus aerated secretions suggestive of acute or subacute sinusitis. Hyperdense components may represent inspissated mucus, fungal colonization, or blood products in the appropriate clinical setting. - Old right medial orbital wall fracture. IMPRESSION: 1. Acute/subacute and chronic left maxil norma sinusitis as partly imaged. 2. No acute intracranial abnormality. 3. Chronic microangiopathic ischemic gli osis. 4. No significant stenosis, aneurysm, di ssection, or other significant abnormality of the intracranial arteries. Primitivo Giles MD On 12/30/2019 15:09:50; [id number] 12/30/2019 [facility] Chest 1view DX PROCEDURE INFOR MATION: Exam: XR Chest, 1 View Exam date and time: 12/30/2019 11:35 AM Age: 69 years old Clinical indication: Other: Weak and dizzy; Additional info: /missed dialysis TECHNIQUE: Imaging protocol: XR of the chest Views: 1 view. COMPARISON: CHEST 1VIEW DX 12/11/2019 3:53 PM FINDINGS: The cardiomediastinal silhouette is within normal limits. There is a tunneled hemodialysis catheter in the left chest with the tip projecting over the mid/lower aspect of the right atrium. There are multiple median sternotomy wires. The lungs are clear bilaterally. No focal airspace consolidation. No pleural effusion. No pneumothorax. No acute osseous abnormality. IMPRESSION: No acute cardiopulmonary findings. Phuc Fung MD On 12/30/2019 11:45:16; [id number] 12/30/2019 [facility] Abdomen/Pelvis wo IV contrast CT Radiation Dose CTDIVOL = 0 (mGy): DLP = 815.79 (mGy-cm) PROCEDURE INFORMATION: Exam: CT Abdomen And Pelvis Without Contrast Exam date and time: 12/11/2019 5:13 PM Age: 69 years old Clinical indication: Pain; Additional info: /cough, llq pain, diarrhea, cramping TECHNIQUE: Imaging protocol: Computed tomography of the abdomen and pelvis without contrast. Total DLP: 815.79 mGy-cm Radiation optimization: All CT scans at this facility use at least one of these dose optimization techniques: automated exposure control; mA and/or kV adjustment per patient size (includes targeted exams where dose is matched to clinical indication); or iterative reconstruction. COMPARISON: ABDOMEN/PELVIS WO IV CONTRAST CT 11/22/2019 6:34 PM FINDINGS: ABDOMINAL ORGANS: The liver demonstrates diffuse parenchymal heterogeneity and surface lobularity, compatible with cirrhosis. While assessment for hepatic mass is limited by the absence of intravenous contrast, no hepatic masses are identified. The spleen is mildly enlarged (13.4 cm) and contains several calcified granulomata. The pancreas and right adrenal gland have an unremarkable appearance. A 14 mm nodule is identified in the left adrenal gland that does not demonstrate internal attenuation values diagnostic of adenoma. The majority of the bilateral renal calcifications appear vascular in etiology. There is no CT evidence of acute renal collecting system obstruction or calcified ureteral stone. BILIARY: The patient is status post cholecystectomy. Prominence of the common bile duct and proximal hepatic ducts appear stable and may represent post cholecystectomy ectasia. GASTROINTESTINAL: Bowel assessment is limited by the absence of bowel contrast. The wall of the gastric antrum appears slightly thickened for the degree of gastric distention, possibly indicating antral gastritis. No small bowel dilatation is present to suggest obstruction. The appendix is identified and is not acutely inflamed. There is no evidence of diverticular disease or inflammatory colonic wall thickening. PERITONEUM: There is no evidence of free intraperitoneal air. No significant free intraperitoneal fluid. RETROPERITONEUM: The abdominal aorta is normal in caliber. There is no evidence of retroperitoneal mass. Small retroperitoneal lymph nodes are again noted. PELVIS: The patient appears to be status post hysterectomy. No abnormalities of the ovaries/adnexa are identified. The bladder wall appears slightly thickened for the degree of bladder distention. LOWER THORAX: Patchy airspace opacities are partially visualized in the left upper lobe. Linear scarring or atelectasis is identified in the medial right middle lobe and both lower lobes. ADDITIONL FINDINGS: None. IMPRESSION: 1. The bladder wall appears slightly thi ckened for the degree of bladder distention, possibly indicating cystitis. Correlation with urinalysis is recommended. 2. Cirrhosis of the liver. 3. Mild splenomegaly. 4. A 14 mm ovoid nodule is identified in the left adrenal gland that does not demonstrate internal attenuation values diagnostic of adenoma. 5. Status post cholecystectomy. Prominen ce of the common bile duct and proximal hepatic ducts appear stable and likely represents post cholecystectomy ectasia. 6. Airspace opacities are partially visu alized in the left upper lobe, concerning for pneumonia. SL:[id number] Roberto Rosales MD On 12/11/2019 17:56:30; [id number] 12/11/2019 [facility] 1view DX PROCEDURE INFOR MATION: Exam: XR Chest, 1 View Exam date and time: 12/11/2019 3:53 PM Age: 69 years old Clinical indication: Cough; Additional info: /cough, llq pain, diarrhea, cramping TECHNIQUE: Imaging protocol: XR of the chest Views: 1 view. COMPARISON: CHEST 1VIEW DX 12/05/2019 12:13 PM FINDINGS: Tubes, catheters and devices: A left internal jugular HeRO catheter is redemonstrated with the distal tip projecting over the inferior aspect of the right atrium. Median sternotomy wires are in place. Lungs: There is central pulmonary venous congestion with minimal linear opacities at the left lung base. No focal pulmonary consolidation. Pleural space: Unremarkable. No pleural effusion. No pneumothorax. Heart/Mediastinum: The cardiomediastinal silhouette is within normal limits for appearance. The thoracic aorta appears calcified. Bones/joints: See Tubes, Catheters And Devices Finding. IMPRESSION: 1. Postsurgical changes of the chest wit h a left-sided HeRO catheter in place as described above. There is central pulmonary venous congestion with minimal left basilar subsegmental atelectasis versus scarring. No focal pulmonary consolidation. Dionisio Lam MD On 12/11/2019 16:17:30; [id number] 12/11/2019 [facility] wo contrast CT Radiation Dose CTDIVOL = 0 (mGy): DLP = 981.67 (mGy-cm) PROCEDURE INFORMATION: Exam: CT Head Without Contrast Exam date and time: 12/05/2019 1:49 PM Age: 69 years old Clinical indication: Injury or trauma; Fall; Dizziness; Additional info: /head injury, dizziness. Dizziness slip and fall this a. M. Hitting back of head. PT C/O cough for three days and vomiting for four days. PT aox 3. Also C/O lower abd pain. PT aox 3. Due for dialysis today. PT on plavix TECHNIQUE: Imaging protocol: Computed tomography of the head without contrast. Total DLP: 981.67 mGy-cm Radiation optimization: All CT scans at this facility use at least one of these dose optimization techniques: automated exposure control; mA and/or kV adjustment per patient size (includes targeted exams where dose is matched to clinical indication); or iterative reconstruction. COMPARISON: BRAIN WO CONTRAST CT 11/21/2019 10:34 AM FINDINGS: Brain: There is no evidence of acute intracranial hemorrhage, subacute territorial infarct, mass effect or midline shift. Please note that acute infarcts can be occult on CT. There is mild generalized volume loss.There are mild hypodensities in the white matter suggestive of chronic small vessel ischemic changes in this age. There are atheromatous calcifications in the intracranial ICAs and vertebral arteries. Ventricles: Unremarkable for age Bones/joints: Unremarkable. No acute fracture. Sinuses: Chronic left maxillary sinusitis with near complete opacification with heterogeneous contents. Moderate mucosal thickening in the ethmoid sinuses. Mild mucosal thickening in the rest of the sinuses. Please correlate for chronic or acute on chronic sinusitis. Mastoid air cells: Visualized mastoid air cells are well aerated. Soft tissues: Unremarkable. IMPRESSION: No CT evidence of acute intracranial findings. Chronic left maxillary sinusitis. Mild moderate mucosal thickening in the rest of the paranasal sinuses. COMMENT: If there is a persistent concern for acute intracranial process, further assessment with MRI or CTA is recommended. Jen Mercado MD On 12/05/2019 14:15:24; [id number] 12/05/2019 [facility] Chest 1view DX PROCEDURE INFOR MATION: Exam: XR Chest, 1 View Exam date and time: 12/05/2019 12:13 PM Age: 69 years old Clinical indication: /head injury, dizziness TECHNIQUE: Imaging protocol: XR of the chest Views: 1 view. Frontal view COMPARISON: CHEST 1VIEW DX 11/21/2019 10:19 AM FINDINGS: Tubes, catheters and devices: Left subclavian central venous catheter is unchanged. Lungs: Clear without infiltrate or consolidation. Pleural space: No pleural effusion or pneumothorax. Heart/Mediastinum: Within normal limits. Vasculature: Atherosclerotic calcifications are present in the aorta. Bones/joints: No acute osseous abnormality identified. Status post median sternotomy. Other findings: Surgical clips are present in the right upper abdomen. IMPRESSION: No acute radiographic abnormality in the chest. Steve Schaeffer MD On 12/05/2019 12:57:47; [id number] 12/05/2019 [facility] Abdomen wo contrast MRI PROCED URE INFORMATION: Exam: MR Abdomen Without Contrast Exam date and time: 11/24/2019 2:05 AM Age: 69 years old Clinical indication: Abdominal pain; Patient HX: Patient complains of epigastric pain for the past 4 days accompanied by nausea and vomiting with the most recent vomiting episode at 11 pm. ; Additional info: /elevated lft, evaluate for choledocholithiasis, prior h/o open cholecystectomy, mild dilation of distal cbd on imaging, liver cirrhosis TECHNIQUE: Imaging protocol: MR of the abdomen without contrast. 3D rendering: MIP and/or 3D reconstructe d images were created by the technologist. COMPARISON: LIVER US 02/18/2018 3:12 PM FINDINGS: Heart: Mild cardiomegaly. Liver: Heterogeneous mildly shrunken liver with a lobulated surface consistent with cirrhosis. No definitive focal hepatic lesion is appreciated. Mild periportal edema or thickening is suspected superiorly in the right hepatic lobe. Gallbladder and bile ducts: Postoperative change cholecystectomy associated with mild intrahepatic and extrahepatic biliary ductal dilatation with common bile duct measuring up to 10 mm similar to recent CT. No filling defect is seen in the common bile duct to suggest choledocholithiasis or lesion. Pancreas: Normal-sized pancreas without discrete lesion. Mildly dilated pancreatic duct measuring up to 4 mm distally without focal filling defect likely also related to cholecystectomy and reservoir effect. Spleen: Mild splenomegaly measuring 13.0 cm maximum craniocaudal dimension without discrete lesion. Adrenals: Small indeterminate left adrenal gland nodule measuring 1.5 cm. Normal right adrenal gland. Kidneys and ureters: Incompletely visualized normal size kidneys associated with mild nonspecific perinephric stranding. No focal lesion or hydronephrosis. Stomach and bowel: Unremarkable. Intraperitoneal space: No fluid collection. Arteries: No abdominal aortic aneurysm. Bones/joints: Unremarkable. Soft tissues: Unremarkable. IMPRESSION: 1. Cholecystectomy with mild central int rahepatic and extrahepatic biliary ductal dilatation without evidence of a focal filling defect to suggest choledocholithiasis or lesion. Biliary ductal dilatation is likely related to reservoir effect, but clinical correlation is required. 2. Heterogeneous mildly shrunken liver w ith a lobulated surface consistent with cirrhosis. No definitive focal hepatic lesion is appreciated. Mild periportal edema or thickening is suspected superiorly in the right hepatic lobe. 3. Mild splenomegaly. 4. Small indeterminate left adrenal glan d nodule measuring 1.5 cm. 5. Mildly dilated pancreatic duct measur ing up to 4 mm distally without focal filling defect likely also related to cholecystectomy and reservoir effect. 6. Mild cardiomegaly. Kevin Adhikari MD On 11/24/2019 03:05:33; [id number] 11/24/2019 [facility] Abdomen/Pelvis wo IV contrast CT Radiation Dose CTDIVOL = 0 (mGy): DLP = 801.57 (mGy-cm) PROCEDURE INFORMATION: Exam: CT Abdomen And Pelvis Without Contrast Exam date and time: 11/22/2019 6:34 PM Age: 69 years old Clinical indication: /abdominal pain TECHNIQUE: Imaging protocol: Computed tomography of the abdomen and pelvis without contrast. Total DLP: 801.57 mGy-cm Radiation optimization: All CT scans at this facility use at least one of these dose optimization techniques: automated exposure control; mA and/or kV adjustment per patient size (includes targeted exams where dose is matched to clinical indication); or iterative reconstruction. Other contrast: Route: Oral; Other technique: Limited exam without contrast COMPARISON: PELVIS WO IV CONTRAST CT 10/27/2019, CT 07/28/2018 FINDINGS: Limitations: Limited exam without IV contrast. Mediastinum: Small hiatal hernia. Liver: Liver cirrhosis. The liver is mildly hyperdense. Calcified granuloma. Gallbladder and bile ducts: Cholecystectomy. Mild dilation of the common bile may be slightly increased distally. Pancreas: Appears unremarkable. Spleen: Calcified granulomas in the spleen. Adrenals: Stable nodule medial limb left adrenal gland. Kidneys and ureters: Perinephric stranding of both kidneys, cortical scarring right kidney. Stomach and bowel: No bowel obstruction. Appendix: No evidence of appendicitis. Intraperitoneal space: No free air or free fluid. Vasculature: Calcification aorta. Extensive arteriosclerosis. Phleboliths in the pelvis. Lymph nodes: Several small lymph nodes aortocaval region are stable and nonspecific. Bladder: Poon catheter decompresses the bladder. Reproductive: Hysterectomy. Bones/joints: Interval mild-moderate compression fracture superior endplate L1. Soft tissues: Small air pocket left anterior abdominal wall may be related to injection. IMPRESSION: Limited exam without contrast 1. Stable cholecystectomy with mildly in creased dilation distal common bile duct. Correlate with bilirubin. MRCP can further evaluate if clinically indicated. 2. Liver cirrhosis. Hyperdense liver can be seen with hemochromatosis or amiodarone use among other etiologies. 3. Patchy interstitial opacities in the visualized lungs may reflect mycobacterium avium complex infection, subsegmental atelectasis or an interstitial pneumonia or edema. 4. Interval compression fracture L1 may be recent or subacute. Jair Webb MD On 11/23/2019 13:59:14; [id number] 11/22/2019 [facility] Brain wo contrast CT Radiation Dose CTDIVOL = 0 (mGy): DLP = 982.82 (mGy-cm) PROCEDURE INFORMATION: Exam: CT Head Without Contrast Exam date and time: 11/21/2019 10:34 AM Age: 69 years old Clinical indication: Altered mental status/memory loss; Patient HX: AMS since this a. M. , Dx with UTI yesterday at [facility]; Additional info: /ams TECHNIQUE: Imaging protocol: Computed tomography of the head without contrast. Total DLP: 982.82 mGy-cm Radiation optimization: All CT scans at this facility use at least one of these dose optimization techniques: automated exposure control; mA and/or kV adjustment per patient size (includes targeted exams where dose is matched to clinical indication); or iterative reconstruction. COMPARISON: BRAIN WO CONTRAST CT 10/26/2019 10:18 PM FINDINGS: Brain: There is mild atrophy. No hemorrhage. There are mild white matter hypodensities.. No mass effect. No abnormal enhancement. Ventricles: Normal. No ventriculomegaly. Bones/joints: There is an old right medial orbital wall fracture. Sinuses: There is moderate opacification of the left maxillary sinus which is unchanged. Mastoid air cells: Visualized mastoid air cells are well aerated. Soft tissues: Unremarkable. Vasculature: Distal internal carotid arterial calcifications are present. IMPRESSION: 1. No acute intracranial abnormality. No abnormal enhancement. 2. Mild atrophy and mild chronic microva scular ischemic changes. 3. Chronic left maxillary sinusitis. Duncan Galindo MD On 11/21/2019 11:16:35; [id number] 11/21/2019 [facility] Chest 1view DX PROCEDURE INFOR MATION: Exam: XR Chest, 1 View Exam date and time: 11/21/2019 10:19 AM Age: 69 years old Clinical indication: /sob TECHNIQUE: Imaging protocol: XR of the chest Views: 1 view. COMPARISON: CR CHEST 1VIEW DX 10/26/2019 9:37 PM FINDINGS: Tubes, catheters and devices: Stable position of left dialysis catheter. Lungs: Minimal linear atelectasis has developed in the right lung base, stable linear atelectasis or scarring left lung base. The lungs are clear otherwise. Pleural space: Unremarkable. No pleural effusion. No pneumothorax. Heart/Mediastinum: Heart size is within normal limits. Vasculature is unremarkable. Bones/joints: Unremarkable. IMPRESSION: Bibasilar linear atelectasis. Dom Callahan MD On 11/21/2019 10:43:49; [id number] 11/21/2019 [facility] Pelvis wo IV contrast CT Radia tion Dose CTDIVOL = 0 (mGy): DLP = 428.88 (mGy-cm) PROCEDURE INFORMATION: Exam: CT Pelvis Without Contrast Exam date and time: 10/27/2019 1:53 AM Age: 69 years old Clinical indication: Pain and injury or trauma; Additional info: /midline pubic pain TECHNIQUE: Imaging protocol: Computed tomography images of the pelvis without contrast. Total DLP: 428.88 mGy-cm Radiation optimization: All CT scans at this facility use at least one of these dose optimization techniques: automated exposure control; mA and/or kV adjustment per patient size (includes targeted exams where dose is matched to clinical indication); or iterative reconstruction. COMPARISON: PELVIS WO IV CONTRAST CT 07/13/2019 6:13 PM FINDINGS: Intraperitoneal space: No significant fluid collection. Vasculature: Diffuse atherosclerotic calcifications are noted. Lymph nodes: No enlarged lymph nodes. Bladder: There is air within the bladder. Correlate clinically for recent instrumentation. Reproductive: Normal as visualized. Bones/joints: Bones are osteopenic. There is a fracture of the anterior cortex of the S3 sacral segment. No additional fractures identified. Normal bilateral sacroiliac and hip joint alignment. Normal pubic symphyseal alignment. Soft tissues: No periarticular fluid collections. IMPRESSION: 1. Osteopenia with an acute fracture inv olving the anterior cortex of the S3 sacral segment. 2. Bladder air. Correlate clinically for recent instrumentation. Sal Correa MD On 10/27/2019 02:30:55; [id number] 10/26/2019 [facility] Spine lumbar wo contrast CT (ER) Radiation Dose CTDIVOL = 0 (mGy): DLP = 624.4 (mGy-cm) PROCEDURE INFORMATION: Exam: CT Lumbar Spine Without Contrast Exam date and time: 10/26/2019 10:22 PM Age: 69 years old Clinical indication: Injury or trauma; Fall; Patient HX: . Fell down 4 stairs x 30mins ago. Hit head (takes plavix) has abraion to left arm states front pelvic area hurting HX dm; Additional info: /trauma TECHNIQUE: Imaging protocol: Computed tomography images of the lumbar spine without contrast. Total DLP: 624.4 mGy-cm Radiation optimization: All CT scans at this facility use at least one of these dose optimization techniques: automated exposure control; mA and/or kV adjustment per patient size (includes targeted exams where dose is matched to clinical indication); or iterative reconstruction. COMPARISON: CR SPINE LUMBAR 2 OR 3 VIEWS DX 07/18/2014 9:35 PM PELVIS WO IV CONTRAST CT 07/13/2019 6:13:25 PM FINDINGS: Vertebrae: There is a 25% height loss acute traumatic anterior wedge compression fracture of the L1 vertebral body. There is disruption of the posterior vertebral body cortex but no retropulsion of osseous fragments. There is no fracture extension into the posterior elements. Spinal alignment is normal and there is no evidence of spinal instability. Discs/Spinal canal: There is mild spinal canal stenosis at L3-L4 and L4-L5 due to disc bulges and ligamentum flavum thickening. Kidneys and ureters: There are nonobstructing renal calculi. There is no hydronephrosis. Vasculature: There are moderate calcifications of the aorta. There is moderate calcification of the celiac and superior mesenteric arteries. Soft tissues: Unremarkable. IMPRESSION: 1. There is a 25% height loss acute trau matic anterior wedge compression fracture of the L1 vertebral body. There is disruption of the posterior vertebral body cortex but no retropulsion of osseous fragments. There is no fracture extension into the posterior elements. Spinal alignment is normal and there is no evidence of spinal instability. 2. There is mild spinal canal stenosis a t L3-L4 and L4-L5 due to disc bulges and ligamentum flavum thickening. 3. Additional nonacute findings as descr ibed above. Toby Posey DO On 10/26/2019 23:05:29; [id number] 10/26/2019 [facility] Chest 1view DX PROCEDURE INFOR MATION: Exam: XR Chest, 1 View Exam date and time: 10/26/2019 9:37 PM Age: 69 years old Clinical indication: Injury or trauma; Fall; Additional info: /trauma TECHNIQUE: Imaging protocol: XR of the chest Views: 1 view. COMPARISON: CHEST 1VIEW DX 09/03/2019 10:10 AM FINDINGS: Lungs: normal lung volumes. No consolidation. Stable positioning of the left internal jugular vein hemodialysis catheter with its tip projecting over the right atrium. Pleural space: mild left basilar atelectasis/scarring. No pleural effusion. No pneumothorax. Heart/Mediastinum: stable cardiomediastinal silhouette. Vasculature is unremarkable. Bones/joints: degenerative changes in the thoracic spine. Cholecystectomy clips in the right upper abdomen. Median sternotomy wires noted. IMPRESSION: Persistent left basilar atelectasis/scarring. Mary Lou Thrasher MD On 10/26/2019 21:58:47; [id number] 10/26/2019 [facility] Pelvis AP DX PROCEDURE INFORMA TION: Exam: XR Pelvis Exam date and time: 10/26/2019 9:38 PM Age: 69 years old Clinical indication: Injury or trauma; Fall; Additional info: /trauma TECHNIQUE: Imaging protocol: XR pelvis. Views: 1 or 2 view. COMPARISON: PELVIS AP DX 01/15/2017 4:40 PM FINDINGS: Bones/joints: There are no fractures or dislocations of the pelvis. The pelvic and obturator rings are intact. The pubic rami are intact. The symphysis pubis and sacroiliac joints are unremarkable. The visualized sacral foramina are unremarkable. The hip joint spaces, proximal femoral regions and acetabular regions are unremarkable. Soft tissues: Unremarkable. Vasculature: Extensive vascular calcification of the lower extremities is noted. Notes: If there is further concern, recommend follow-up radiographs or MRI for complete assessment. IMPRESSION: No acute fracture or malalignment of the pelvis. Luis Peres MD On 10/26/2019 21:54:18; [id number] 10/26/2019 [facility] Hand 2 views DX PROCEDURE INFO RMATION: Exam: XR Left Hand Exam date and time: 10/26/2019 9:39 PM Age: 69 years old Clinical indication: Injury or trauma; Fall; Additional info: /trauma TECHNIQUE: Imaging protocol: XR Left hand. Views: 1 or 2 views. Frontal Lateral COMPARISON: HAND 3 VIEWS DX, LEFT 07/13/2019 3:10 PM FINDINGS: Bones/joints: The bones are diffusely osteopenic. There is normal alignment without fractures or dislocations. Bony fragment adjacent to the 1st carpometacarpal joint appears similar to prior examination. The limited visualized wrist region is grossly unremarkable. Soft tissues: No radiopaque foreign bodies. Vasculature: Extensive vascular calcifications are visualized. Notes: If there is further concern, recommend follow-up radiographs or MRI for complete assessment. IMPRESSION: No acute fracture or dislocation. Luis Peres MD On 10/26/2019 21:57:24; [id number] 10/26/2019 [facility] Forearm 2 views DX PROCEDURE I NFORMATION: Exam: XR Left Forearm Exam date and time: 10/26/2019 9:41 PM Age: 69 years old Clinical indication: Injury or trauma; Fall; Additional info: /trauma TECHNIQUE: Imaging protocol: XR Left forearm. Views: 2 views. Frontal and lateral COMPARISON: No relevant prior studies available. FINDINGS: Bones/joints: No fracture or dislocation of the forearm appreciated. If suspicion for elbow fracture, dedicated view should be obtained. Soft tissues: No acute pathology appreciated. Notes: If ongoing clinical concern, CT vs MRI follow up recommended depending on concern for osseous or soft tissue pathology. IMPRESSION: No acute pathology appreciated, if ongoing clinical concern, follow up imaging recommended. Emily Martin MD On 10/26/2019 22:03:01; [id number] 10/26/2019 [facility] Brain wo contrast CT Radiation Dose CTDIVOL = 0 (mGy): DLP = 902.23 (mGy-cm) PROCEDURE INFORMATION: Exam: CT Head Without Contrast Exam date and time: 10/26/2019 10:18 PM Age: 69 years old Clinical indication: Injury or trauma; Fall; Patient HX: . Fell down 4 stairs x 30mins ago. Hit head (takes plavix) has abraion to left arm states front pelvic area hurting HX dm; Additional info: /trauma TECHNIQUE: Imaging protocol: Computed tomography of the head without contrast. Total DLP: 902.23 mGy-cm Radiation optimization: All CT scans at this facility use at least one of these dose optimization techniques: automated exposure control; mA and/or kV adjustment per patient size (includes targeted exams where dose is matched to clinical indication); or iterative reconstruction. COMPARISON: BRAIN WO CONTRAST CT 09/03/2019 1:26 PM FINDINGS: Brain: Mild diffuse age-appropriate cerebral atrophy associated with mild nonspecific periventricular low attenuation most consistent with old microangiopathic ischemic change. No acute intracranial hemorrhage, extra-axial fluid collection, mass effect or midline shift. Tiny old bilateral basal ganglia lacunar infarctions. Ventricles: Normal appearance without ventriculomegaly. Bones/joints: Stable tiny old right medial orbital wall fracture. Sinuses: Stable incompletely visualized mucous retention cyst or polyp in the left maxillary sinus. The remaining paranasal sinuses are well aerated. Mastoid air cells: Visualized mastoid air cells are clear without effusion. Soft tissues: No significant abnormality. IMPRESSION: 1. Mild diffuse cerebral atrophy associa lorena with mild old microangiopathic change. 2. No acute intracranial abnormality. 3. Tiny old bilateral basal ganglia lacu adrienne infarctions. 4. Mild chronic sinusitis. 5. Stable tiny old right medial orbital wall fracture. Kevin Adhikari MD On 10/26/2019 22:58:48; [id number] 10/26/2019 [facility] Spine cervical wo contrast CT (ER) Radiation Dose CTDIVOL = 0 (mGy): DLP = 652.51 (mGy-cm) PROCEDURE INFORMATION: Exam: CT Cervical Spine Without Contrast Exam date and time: 10/26/2019 10:18 PM Age: 69 years old Clinical indication: Injury or trauma; Fall; Patient HX: . Fell down 4 stairs x 30mins ago. Hit head (takes plavix) has abraion to left arm states front pelvic area hurting HX dm; Additional info: /trauma TECHNIQUE: Imaging protocol: Computed tomography images of the cervical spine without contrast. Total DLP: 652.51 mGy-cm Radiation optimization: All CT scans at this facility use at least one of these dose optimization techniques: automated exposure control; mA and/or kV adjustment per patient size (includes targeted exams where dose is matched to clinical indication); or iterative reconstruction. COMPARISON: No relevant prior studies available. FINDINGS: Tubes, catheters and devices: There is an incompletely imaged left internal jugular access venous catheter. Vertebrae: There is no acute cervical spine fracture or dislocation. There are multilevel spondylotic and disc degenerative changes of the spine. There is mild spinal canal stenosis at C5-C6 and moderate spinal canal stenosis at C6-C7 due to disc osteophyte bulges. Discs/Spinal canal: See Vertebrae Finding. Other bones/joints: There are surgical changes consistent with prior sternotomy. Soft tissues: There is calcific density in the posterior paraspinal soft tissues, consistent with remote injury. Thyroid: There is a coarse calcification in the right thyroid. No thyroid mass is detected. No follow-up is required for this finding. Lungs: The lung apices reveal no acute process. Vasculature: There is moderate atherosclerotic calcification of the carotid vasculature. There is moderate atherosclerotic calcification of the proximal subclavian arteries. IMPRESSION: 1. There is no acute cervical spine frac ture or dislocation. 2. There are multilevel spondylotic and disc degenerative changes of the spine. There is mild spinal canal stenosis at C5-C6 and moderate spinal canal stenosis at C6-C7 due to disc osteophyte bulges. Toby Posey DO On 10/26/2019 23:00:20; [id number] 10/26/2019 [facility] Brain wo contrast CT Radiation Dose CTDIVOL = 0 (mGy): DLP = 902.19 (mGy-cm) PROCEDURE INFORMATION: Exam: CT Head Without Contrast Exam date and time: 09/03/2019 1:26 PM Clinical history: 69 years old, female; Pain; Additional info: /headache. C/O anxiety, palpitations, cp, 'shaking' x2 days; Pmh esrd (last mon), poor historians TECHNIQUE: Imaging protocol: Computed tomography of the head without contrast. Total DLP: 902.19 mGy-cm Radiation optimization: All CT scans at this facility use at least one of these dose optimization techniques: automated exposure control; mA and/or kV adjustment per patient size (includes targeted exams where dose is matched to clinical indication); or iterative reconstruction. COMPARISON: BRAIN WO CONTRAST CT 07/13/2019 12:56 PM FINDINGS: Brain: No acute territorial infarct or intracranial hemorrhage. No mass effect or midline shift. Diffuse cerebral atrophy and moderate chronic small vessel ischemic change. Marked atherosclerotic calcification of the distal internal carotid and vertebral arteries. Ventricles: No ventriculomegaly. Bones/joints: No acute displaced fracture. Sinuses: Mild mucoperiosteal thickening in the ethmoid sinus. Chronic appearing partially calcified opacification of the left maxillary sinus. No fluid levels. Mastoid air cells: Visualized mastoid air cells are well aerated. Soft tissues: Unremarkable. IMPRESSION: No acute territorial infarct or intracranial hemorrhage detected. Diffuse cerebral atrophy and moderate chronic small vessel ischemic change. COMMENT: If there is further clinical concern for intracranial pathology, MRI of the brain may be performed for further assessment. Jose Andrade MD On 09/03/2019 14:02:29; [id number] 09/03/2019 [facility] Chest 1view DX PROCEDURE INFOR MATION: Exam: XR Chest, 1 View Exam date and time: 09/03/2019 10:10 AM Clinical history: 69 years old, female; /chest pain TECHNIQUE: Imaging protocol: XR of the chest Views: 1 view. Portable AP view COMPARISON: CR RIBS UNILATERAL 3 VIEWS W PA CHEST DX, LEFT 07/13/2019 11:16 AM FINDINGS: Lungs: There is mild central pulmonary venous congestion with minimal to mild opacities at the left lung base. No focal pulmonary consolidation. Pleural space: Unremarkable. No pleural effusion. No pneumothorax. Heart/Mediastinum: Heart size is within normal limits. Vasculature is unremarkable. Bones/joints: Median sternotomy wires are in place. Left internal jugular HeRO catheter in place with the distal tip projecting over the inferior right atrium. IMPRESSION: 1. Postsurgical changes of the chest wi th stable positioning of the left internal jugular HeRO catheter, mild central pulmonary venous congestion, and minimal to mild left basilar atelectasis versus infiltrates. No focal pulmonary consolidation. Dionisio Lam MD On 09/03/2019 10:26:36; [id number] 09/03/2019 [facility] Pelvis wo IV contrast CT Patie nt Name: MARY SCHRIEBER : 1950; Age: 69 years y/o Female MR: [id number] Study: Pelvis wo IV contrast CT 07/13/2019 4:54 PM CDT Clinical Indication: Fall, left hip fracture/pain; Comparison: None TECHNIQUE: Noncontrasted helical imaging was performed through the pelvis. Multiplanar reformations are available. CT Radiation Dose: DLP = 334 mGy-cm FINDINGS: PELVIS: Colon contains a large amount of stool but does not show appreciable wall thickening. No pelvic mass. The urinary bladder shows nondependent gas, possibly related to recent instrumentation. Please correlate with patient history. MUSCULOSKELETAL: The osseous pelvis is intact. Femoral heads remain seated in the acetabula. Femoral heads, necks and proximal shafts are intact. IMPRESSION: No acute osseous injury. SL: [id number] 07/13/2019 [facility] Hip 2/3 views uni w pelvis DX Exam: Left Hip 2/3 views uni w pelvis DX Clinical Indication: - pain, fall Comparison: Pelvis radiograph 01/15/[address] chest abdomen and pelvis 07/28/2018 FINDINGS: AP view of the pelvis and AP and frog-leg views of the left hip are performed. Subtle cortical overlap present at the left lateral femoral head neck junction questionable for subcapital femoral neck fracture. No other acute fracture identified. Normal left hip alignment without significant degenerative change. The right hip is unremarkable. The sacroiliac joints and pubic symphysis are unremarkable. Soft tissues are unremarkable. No radiopaque foreign bodies. Extensive vascular calcifications are present. IMPRESSION: Questionable left subcapital femoral neck fracture. May consider further assessment with CT of the hip as clinically warranted. SL: [id number]-PC 07/13/2019 [facility] Hand 3 views DX Clinical Indic ation: - pain, fall Comparison: None FINDINGS: The AP, oblique, and lateral views of the left hand show normal bony alignment without fractures or dislocations. No radiopaque foreign bodies. Extensive vascular calcifications are present. If there is further concern, recommend follow-up radiographs or bone scan for complete assessment. IMPRESSION: 1. No acute fracture or dislocation inj ury of the left hand. SL: [id number] 07/13/2019 [facility] Shoulder series DX Shoulder se june DX CLINICAL HISTORY: - pain from fall FINDINGS/IMPRESSION: 3 views of the left shoulder are submitt ed for review. No evidence for fracture or subluxation. The visualized bones demonstrate normal radiodensity. No significant degenerative change is noted. No abnormal soft tissue calcifications or other significant soft tissue abnormality is noted. Visualized portion of the lungs are clear. SL: [id number] 07/13/2019 [facility] Ribs unilateral 3 views w PA chest DX Clinical Indication: - pain from fall. Comparison: 04/03/2019. FINDINGS: PA Chest: The single view of the chest shows mild decreased lung volumes with left basilar curvilinear subsegmental density. . No pleural effusions or pneumothorax. The heart size and mediastinal contour is normal. Left IJ HeRO dialysis catheter unchanged in position Sternotomy changes. Probable coronary stent versus atherosclerosis. Left Rib Series: The AP and oblique views of the ribs show no definite rib fractures. The costovertebral junctions are unremarkable. If there is further concern, followup radiographs or bone scan may be performed for complete assessment. IMPRESSION: 1. No definite left rib fractures. 2. Decreased lung volumes with left basi lar curvilinear density possibly of atelectasis SL: [id number] 07/13/2019 [facility] Spine cervical wo contrast CT (ER) EXAM: CT CERVICAL SPINE WITHOUT CONTRAST DATE: 07/13/2019 10:57 CDT INDICATION: - neck pain from fall. ADDITIONAL INFORMATION: . COMPARISON: None. TECHNIQUE: Volumetric CT acquisition of the cervical spine without contrast. Axial, sagittal and coronal reconstructions. IV contrast: None. CT imaging performed at this location utilizes radiation dose optimization techniques which include one or more of the following: -Automated exposure control -Adjustment of the mA and/or kV accordin g to patient size -Use of iterative reconstruction [facility] ue CT Radiation Dose DLP 342.08 mGy-cm FINDINGS: Marked reversal of the normal cervical lordosis. No definite acute fracture is identified. Prevertebral soft tissues are within normal limits. The odontoid and lateral masses are grossly anatomic. Severe cervical spondylosis and marked facet arthrosis, most pronounced at C4-C5 and C6-C7 resulting in moderate to severe stenosis. About 3.0 mm anterolisthesis of C4 on C5. Please correlate with neurologic symptoms and dedicated MRI cervical spine can be performed for further evaluation. IMPRESSION: 1. Marked reversal of the normal cervica l lordosis. 2. Severe cervical spondylosis and marke d facet arthrosis, most pronounced at C4-C5 and C6-C7 resulting in moderate to severe stenosis. About 3.0 mm anterolisthesis of C4 on C5. Please correlate with neurologic symptoms and dedicated MRI cervical spine can be performed for further evaluation. SL: [id number] 07/13/2019 [facility] Brain wo contrast CT EXAM: CT BRAIN WITHOUT CONTRAST DATE: 07/13/2019 10:57 CDT INDICATION: - pain from fall. ADDITIONAL INFORMATION: . COMPARISON: CT head of 04/03/2019. TECHNIQUE: Routine axial CT images of the brain were obtained. IV contrast: None. CT imaging performed at this location utilizes radiation dose optimization techniques which include one or more of the following: -Automated exposure control -Adjustment of the mA and/or kV accordin g to patient size -Use of iterative reconstruction [facility] ue CT Radiation Dose DLP 982.82 mGy-cm FINDINGS: Non-contrast images of the head demonstrate no edema, hemorrhage, mass lesion or other acute intracranial abnormality. Diffuse cerebral atrophy and mild chronic small vessel ischemic change. Nolasco- white matter distinction is preserved. The ventricles are normal. The basal cisterns and sulci are normal in size. Marked atherosclerotic calcification of the distal internal carotid and vertebral arteries. Mild chronic inflammatory change of the paranasal sinuses and partially hyperdense and calcified left maxillary opacification/mass is present. The mastoid air cells are clear. IMPRESSION: 1. No definite acute territorial infarct or intracranial hemorrhage detected. 2. Diffuse cerebral atrophy and mild chr onic small vessel ischemic change. If there is further concern for intracranial pathology or acute stroke, MRI of the brain may be performed for complete assessment. SL: [id number] 07/13/2019 [facility] Abdomen complete US Patient Na me: MARY SCHREIBER : 1950; Age: 69 years y/o Female MR: [id number] Study: Abdomen complete US 06/26/2019 10:01 AM CDT Ordering Physician: Galindo Mccarty MD Clinical Indication: - chronic hep c; Comparison: None TECHNIQUE: Grayscale and limited color sonographic evaluation of the abdomen was performed with standard technique. FINDINGS: LIVER: The liver is heterogeneous and coarse in echotexture and diffusely echogenic reflecting hepatocellular disease possibly cirrhosis or mild fatty infiltration. This lowers the sensitivity for detection of hepatic lesion. BILE DUCTS: The intrahepatic duct is not dilated. The common bile duct measuring 7.0 mm. GALLBLADDER: Postoperative cholecystectomy. PANCREAS: The visualized pancreas appears unremarkable.. SPLEEN: The spleen is unremarkable and measures 11.9 cm. KIDNEY: The right kidney measures 9.7 cm. The left kidney measures 9.4 cm. There is normal renal contour and morphology, with normal parenchymal echotexture. There is no hydronephrosis. AORTA AND INFERIOR VENA CAVA: Visualized portions appear unremarkable. ASCITES: There is no right abdominal ascites. IMPRESSION: 1. Postoperative cholecystectomy. 2. Hepatocellular disease reflecting cir rhosis or diffuse fatty infiltration. SL: [id number] 06/26/2019 [facility] Chest 1view DX Clinical Indica tion:69 years Female with - code stroke Comparison: Chest x-ray 02/28/2019 FINDINGS: Lines: Left-sided AV graft. The single frontal chest radiograph shows normal lung volumes. Mild opacities in the lung bases. No pleural effusion. No pneumothorax. Cardiac silhouette is stable. Coronary artery stents.. Pulmonary vasculature is normal. The trachea is midline. There are no acute osseous abnormalities noted. IMPRESSION: No acute cardiopulmonary abnormality. Subsegmental atelectasis in the lung bases. 04/03/2019 [facility] Brain wo contrast CT EXAM: CT BRAIN WITHOUT CONTRAST DATE: 04/03/2019 14:52 CDT INDICATION: - acute AMS. ADDITIONAL INFORMATION: . COMPARISON: None. TECHNIQUE: Routine axial CT images of the brain were obtained. IV contrast: None. CT imaging performed at this location utilizes radiation dose optimization techniques which include one or more of the following: -Automated exposure control -Adjustment of the mA and/or kV accordin g to patient size -Use of iterative reconstruction [facility] ue CT Radiation Dose DLP 859.97 mGy-cm FINDINGS: Non-contrast images of the head demonstrate no edema, hemorrhage, mass lesion or other acute intracranial abnormality. Diffuse cerebral atrophy and mild chronic small vessel ischemic change. Nolasco- white matter distinction is preserved. The ventricles are stable. The basal cisterns and sulci are normal in size. Marked atherosclerotic calcification of the distal internal carotid and vertebral arteries. Mild mucosal thickening of the ethmoid air cells. Partial opacification of the mastoid air cells. IMPRESSION: 1. No definite acute territorial infarct or intracranial hemorrhage detected. 2. Diffuse cerebral atrophy and mild chr onic small vessel ischemic change. If there is further concern for intracranial pathology or acute stroke, MRI of the brain may be performed for complete assessment. : [id number] 04/03/2019 [facility] Abscess localization scan NM T ECHNETIUM 99M CERETEC LEUKOCYTE SCAN: HISTORY: Staphylococcal bacteremia, left upper extremity cellulitis, possible dialysis graft infection. TECHNIQUE: The patient's white cells were labeled with 19.6 mCi of technetium 99m Ceretec followed by whole-body imaging at 4 hours. Spot images over the left upper extremity, chest and abdomen were also done at 4 hours and 8 hours. FINDINGS:There is no abnormal white cell accumulation in the left arm corresponding to the dialysis graft. Ultrasound of the left upper extremity dialysis access on 02/28/2019 showed no perigraft fluid collections. Radiographs of the left humerus on 02/28/2019 show a straight graft extending from the elbow to the shoulder, without soft tissue gas or osseous abnormalities. Chest radiograph on 02/28/2019 shows a HeRO graft terminating in the right atrium. There is no abnormal activity in the left shoulder region or chest corresponding to the graft. There is no other abnormal activity in the remainder of the body. IMPRESSION: No abnormal white cell accumulation in the left upper extremity or chest. Otherwise negative Ceretec leukocyte scan. [id number] 03/03/2019 [facility] Humerus 2 views DX Left Humeru s 2 views DX Female Age: 69 years Clinical Indication: Pain - abscess; Comparison: None TECHNIQUE: AP and lateral radiographs for left humerus exam (2 views) FINDINGS: No acute fracture or malalignment is identified. Some surgical clips are present in the antecubital region. A vascular graft is suspected between the axillary region in the antecubital region. No gas noted in the soft tissues. No soft tissue abnormality is identified. IMPRESSION: No acute abnormality. SL: [id number] 02/28/2019 [facility] Hemodialysis Graft/Fistula US Hemodialysis graft ultrasound 02/28/2019 HISTORY: Graft site pain FINDINGS: Left arm graft appears patent. There are elevated velocities at the proximal anastomotic site measuring 557 cm/s. Velocity in the proximal graft measures 632 cm/s. Mid and distal portions of the graft have velocities of 186 cm/s and 175 cm/s respectively. Outflow portion of the graft contains a velocity of 284 cm/s. There is no fluid collection around the graft. IMPRESSION: 1. Patent graft. 2. Elevated velocities within proximal g raft. SL: [id number] 02/28/2019 [facility] Brain wo contrast CT Clinical Indication: - ams; Comparison: 10/01/2018 TECHNIQUE: CT images were obtained from the foramen magnum to the vertex without the use of intravenous contrast on a multidetector CT. Coronal and sagittal reconstructions were obtained. CT radiation dose DLP: 859.97 mGy-cm CT imaging performed at this location utilizes radiation dose optimization techniques which include one or more of the following: -Automated exposure control -Adjustment of the mA and/or kV accordin g to patient size -Use of iterative reconstruction techniq ue FINDINGS: BRAIN PARENCHYMA: There is generalized brain parenchymal atrophy related to the patient's age. Moderate nonspecific periventricular white matter disease changes are noted. Atherosclerotic calcifications are present within the carotid siphons and distal vertebral arteries. There are no focal mass lesions on this noncontrast head CT. There is no mass effect, midline shift or edema. There are no intra-axial or extra-axial fluid collections, intraventricular or intraparenchymal hemorrhage. There is no noncontrast CT evidence of a subacute stroke. The pineal, sellar, brainstem, cerebellum and skull base regions appear unremarkable. VENTRICLES: There is [id number] prominence of the lateral ventricles. The 3rd and 4th ventricles demonstrate no abnormality. The basilar cisterns are normal. ORBITS, MASTOIDS AND PARANASAL SINUSES: The visualized orbits and paranasal sinuses are unremarkable. The mastoid air cells are clear. SKULL: There are no calvarial abnormalities seen. If there is further concern for intracranial pathology or acute stroke, MRI of the brain may be performed for complete assessment. IMPRESSION: Chronic age-related and small vessel ischemic changes without mass, hemorrhage or subacute stroke. SL: [id number] 02/28/2019 [facility] Chest 1view DX EXAM: Chest 1vi ew DX DATE: 02/28/2019 1:06 PM CDT INDICATION: - Undifferentiated Sepsis COMPARISON: 02/12/2019. IMPRESSION: Right central line has been removed. Left central catheter is unchanged. Stable cardiac silhouette and mediastinum. Postoperative median sternotomy. Coronary vascular stents are again noted. No grossly focal consolidation, significant pleural effusion or pneumothorax. Surgical clips are present within the right upper quadrant. SL: [id number] 02/28/2019 [facility] 1view DX Clinical Indica tion: - cp Comparison: Prior chest radiograph dated 11/01/2018. FINDINGS-IMPRESSION: The portable AP single view radiograph provided for review. Right internal jugular dialysis projecting over the cavoatrial junction. Interval placement of the left IJV tunneled dialysis catheter with its tip projecting over the right atrium. No detectable pneumothorax. Median sternotomy wires noted. The exam demonstrates normal lung volumes with decreasing streaky opacities in the left lower zone and retrocardiac region likely infiltrate/atelectasis. No large pleural effusion. Stable cardiomediastinal silhouette. Pulmonary vasculature is within normal limits. Trachea is in the midline. Ectatic thoracic aorta with atherosclerotic calcifications. No acute osseous abnormality. Degenerative changes in the thoracic spine. SL: NAIN 02/12/2019 [facility] Shoulder series DX EXAM: XR SH OULDER RIGHT CLINICAL INDICATION: 68 years old Female with Trauma - fall COMPARISON: None FINDINGS: AP internal/external rotation along with scapular Y-view radiographs of the right shoulder were obtained. No acute fracture or dislocation is identified. The humeral head is well-seated in the glenoid fossa. Mild acromioclavicular degenerative changes. Visualized right hemithorax is grossly unremarkable. IMPRESSION: 1. No acute fracture or dislocation iden tified in the right shoulder. SL: [id number] 11/01/2018 [facility] Chest 1view DX EXAM: XR CHEST SINGLE VIEW HISTORY: 68 years old Female with Chest pain - fall TECHNIQUE: A single AP view of the chest was obtained. COMPARISON: Chest radiograph 07/28/2018 FINDINGS: The cardiomediastinal silhouette is within normal limits. Aortic calcifications present. Hazy opacity noted in the left lower lung. No definite pneumothorax is seen. No acute osseous abnormality is evident. Sternotomy wires noted. Stable position of right internal jugular dialysis catheter with the tip in the high right atrium. IMPRESSION: 1. Hazy opacity in the left lower lung c oncerning for developing infiltrate. SL: [id number] 11/01/2018 [facility] Brain wo contrast CT Clinical Indication: - fall +thinner. Comparison: 07/28/2018 TECHNIQUE: CT images were obtained from the foramen magnum to the vertex without the use of intravenous contrast on a multidetector CT. CT imaging was performed with exposure control parameters to reduce radiation dose. Coronal and sagittal reconstructions were obtained. CT imaging performed at this location utilizes radiation dose optimization techniques which include one or more of the following: -Automated exposure control -Adjustment of the mA and/or kV accordin g to patient size -Use of iterative reconstruction Dynasil CT Radiation Dose DLP 902.22 mGy-cm FINDINGS: BRAIN PARENCHYMA: There is generalized brain parenchymal atrophy related to the patient's age. Moderate nonspecific periventricular white matter disease changes. No focal mass lesions on this noncontrast head CT. No mass effect, midline shift or edema. There are no intra-axial or extra-axial fluid collections, intraventricular or intraparenchymal hemorrhage. No low attenuation demarcating areas on this non-contrast CT to suggest subacute stroke. VENTRICLES: The lateral ventricles, third and fourth ventricles appear unremarkable. The basilar cisterns are normal. ORBITS, MASTOIDS AND PARANASAL SINUSES: The visualized orbits are unremarkable. There are inspissated secretions in the left maxillary sinus. Small left frontal scalp hematoma. SKULL: There are no osseous abnormalities. If there is further concern for intracranial pathology or acute stroke, MRI of the brain may be performed for complete assessment. IMPRESSION: No acute intracranial hemorrhage or mass effect. No calvarial fracture. Small left frontal scalp hematoma. SL: [id number] 10/01/2018 [facility] Spine cervical wo contrast CT Clinical Indication: - fall +thinners; neck pain. Comparison: Prior CT study dated 07/28/2018. Technique: Multi-detector CT imaging of the cervical spine is performed. Coronal and sagittal reconstructions were obtained. CT imaging performed at this location utilizes radiation dose optimization techniques which include one or more of the following: -Automated exposure control -Adjustment of the mA and/or kV accordin g to patient size -Use of iterative reconstruction [facility] ue CT Radiation Dose DLP 470.79 mGy-cm FINDINGS: ALIGNMENT AND GENERAL ASSESSMENT: There is normal alignment of the cervical spine. There are multilevel degenerative changes in the form of marginal osteophytosis, reduced intervertebral disc height, disc calcification, Schmorl's nodes, uncovertebral and facet joint arthropathy. No acute fracture, facetal dislocation or disc disruption. No spondylolisthesis. No aggressive osseous lesion. Mild degenerative changes along C1-C2 junction. Mild type I rotatory subluxation of C1 on C2. DISK SPACES AND SOFT TISSUES: The prevertebral soft tissues are normal. At C5-C6, posterior disc osteophyte complex, bilateral uncovertebral arthropathy causing marked right and mild left foraminal stenosis. At C6-C7, posterior disc osteophyte complex, bilateral uncovertebral arthropathy causing mild spinal canal and moderate left foraminal stenosis. MRI is the gold standard to assess for disk disease. VISUALIZED LUNG APICES: Unremarkable. Left carotid bulb calcification. Punctate calcification within the right lobe of the thyroid gland. Partially imaged is right-sided likely hemodialysis catheter. CT myelogram or MRI of the cervical spine may be performed, if there is further concern. IMPRESSION: 1. No acute cervical fracture. Mild type I atlantoaxial rotatory subluxation. No widening of the atlantodental space. 2. Multilevel degenerative changes. Cem ed right and mild left from stenosis at C5-C6. Mild spinal canal and moderate left foraminal stenosis at C6-C7. SL: NAIN 10/01/2018 [facility] Carotid artery Doppler bilat US Patient Name: MARY SCHREIBER : 1950; Age: 68 years Female MR: [id number] Study: Carotid artery Doppler bilat US 07/29/2018 6:53 AM CDT Clinical Indication: - syncope. COMPARISON: January 16, 2017 TECHNIQUE: Wheatley-scale, color Doppler and spectral Doppler of the carotid arteries was performed. Any reported ICA stenoses indirectly reference the distal internal carotid diameter as the denominator for the stenosis measurement, utilizing consensus panel criteria. FINDINGS: RIGHT: No significant plaque. ICA PSV 69 cm/sec CCA PSV 72 cm/sec ICA/CCA ratio 0.96 Vertebral flow is antegrade. External carotid artery is patent. LEFT: No significant plaque. ICA PSV 77 cm/sec CCA PSV 86 cm/sec ICA/CCA ratio 0.90 Vertebral flow is antegrade. External carotid artery is patent. IMPRESSION: 1. RIGHT: ICA stenosis <50% by velocity criteria. 1. LEFT: ICA stenosis <50% by velocity sonny fung. Consensus panel Doppler US criteria for diagnosis of ICA stenosis: Stenosis (%) ICA PSV (cm/sec) ICA/CCA ratio <50 <125 <2.0 50-69 125-230 2.0-4.0 >70 but less than >230 >4.0 near occlusion Near occlusion High, low, or Variable undetectable SL: [id number] 07/29/2018 [facility] Chest/Abdomen/Pelvis wo IV contrast CT Clinical Indication: Fall on the right side, with diffuse right sided pain. Comparison: CT abdomen and pelvis without contrast, 04/28/2018. TECHNIQUE: Helical imaging was performed without injection of IV contrast, from the chest through the symphysis with multiplanar reformations obtained. IV CONTRAST: No IV contrast was administered. GI CONTRAST: No oral contrast was administered. CT imaging performed at this location utilizes radiation dose optimization techniques which include one or more of the following: -Automated exposure control -Adjustment of the mA and/or kV accordin g to patient size -Use of iterative reconstruction [employer] ue CT Radiation Dose DLP 772 mGy-cm FINDINGS: LINES/TUBES: Tip of the right-sided IJ tunneled hemodialysis catheter terminates in the right atrium. CHEST: LUNG PARENCHYMA AND PLEURA: There are no lung nodules. There is no significant interstitial lung disease. Resolution of the bilateral pleural effusions seen on the prior exam. There is no pneumothorax. AIRWAY: The central airway is normal. MEDIASTINUM: No significant mediastinal lymphadenopathy. HEART: There is no evidence of RV strain. The cardiac chambers are otherwise unremarkable. Atherosclerotic calcifications of the coronary arteries. There is no pericardial effusion. VASCULAR STRUCTURES: The pulmonary arteries and great vessels are unremarkable. Atherosclerotic calcifications of the thoracic aorta. No aneurysmal dilatation. The superior vena cava is unremarkable. ESOPHAGUS: No gross abnormalities. OSSEOUS STRUCTURES: There are no significant osseous abnormalities seen. ABDOMEN AND PELVIS: LIVER: Nodular hepatic contour, in keeping with cirrhosis, unchanged. BILIARY TREE: The common bile duct is normal in caliber without evidence of filling defects. GALLBLADDER: Cholecystectomy. PANCREAS: The pancreas is unremarkable. The pancreatic duct is normal in caliber. SPLEEN: The spleen is normal in size and there are no parenchymal abnormalities. ADRENALS: The right adrenal gland is unremarkable. Unchanged 1.8 cm left adrenal nodule, likely adenoma. KIDNEYS: There is no evidence of renal or ureteral calculi. There is no evidence of hydronephrosis. BOWEL: The visualized portion of the esophagus is unremarkable. The stomach is unremarkable. The small bowel is normal in caliber and there is no evidence of masses or obstruction. The colon is normal in caliber, there are no masses, there is no evidence of diverticulosis or diverticulitis. APPENDIX: The appendix is unremarkable. PELVIS: There are no pelvic mass. The urinary bladder is normal. PERITONEUM: There is no evidence for free intraperitoneal air. There is a trace amount of free fluid in the cul-de-sac. SOFT TISSUES: The soft tissues are unremarkable. There is no evidence of masses or hernias. LYMPH NODES: There is no evidence of mesenteric, retroperitoneal, or inguinal lymphadenopathy. VASCULATURE: Extensive atherosclerotic calcifications in the aortoiliac distribution, as well as the bilateral renal, splenic, and mesenteric arteries. MUSCULOSKELETAL: Median sternotomy wires appear intact. No evidence of a fracture or dislocation. IMPRESSION: 1. No acute abnormality of the chest, ab domen, or pelvis. 2. Resolution of the bilateral pleural e ffusions seen on the prior exam. 3. Hepatic cirrhosis. 4. Stable left adrenal nodule, likely an adenoma. SL: JONATHAN 07/28/2018 [facility] Chest 1view DX EXAM: Chest 1vi ew DX DATE: 07/28/2018 8:06 PM CDT INDICATION: - chest pain, fall COMPARISON: 05/02/2018. IMPRESSION: Stable cardiac silhouette and mediastinum. Postoperative median sternotomy. Atherosclerotic thoracic aorta. No focal consolidation, significant pleural effusion or pneumothorax. Right central line is present with its tip near the atrial caval junction. Surgical clips are present in the right upper quadrant. SL: [id number] 07/28/2018 [facility] Spine cervical wo contrast CT Clinical Indication: - fall Comparison: CT cervical spine dated 01/15/2017 Technique: Multi-detector CT imaging of the cervical spine is performed. Coronal and sagittal reconstructions were obtained. CT imaging performed at this location utilizes radiation dose optimization techniques which include one or more of the following: -Automated exposure control -Adjustment of the mA and/or kV accordin g to patient size -Use of iterative reconstruction [employer] ue CT Radiation Dose DLP 319 mGy-cm FINDINGS: ALIGNMENT AND GENERAL ASSESSMENT: There is normal alignment of the cervical spine. There are no fractures or subluxations. The craniocervical junction is normal. The atlanto-dental alignment appears unremarkable. The posterior elements and spinous processes are unremarkable. The facet joint, spinolaminar and spinous process alignment are normal. DISK SPACES: C2-C3: There is no significant disc bulging. Facet joints are normal. There is no spinal canal or foraminal stenosis. C3-C4: Mild posterior circumferential disc bulging. Facet joints are normal. There is no spinal canal or foraminal stenosis. C4-C5: There is no significant disc bulging. Facet joints are normal. There is no spinal canal or foraminal stenosis. C5-C6: Moderate intervertebral disc height loss with mild posterior circumferential disc bulging. Facet joints are normal. There is no spinal canal or foraminal stenosis. C6-C7: Moderate intervertebral disc height loss with mild posterior circumferential disc bulging. Facet joints are normal. There is no spinal canal stenosis. Mild to moderate left neural foraminal narrowing. C7-T1: There is no significant disc bulging. Facet joints are normal. There is no spinal canal or foraminal stenosis. VISUALIZED LUNG APICES SOFT TISSUES: Visualized lung apices are clear. The prevertebral soft tissues are normal. Thyroid gland is unremarkable. Partially visualized right IJ approach central venous catheter. CT myelogram or MRI of the cervical spine may be performed, if there is further concern. IMPRESSION: No fractures or subluxations of the cervical spine. SL: [id number]-M 07/28/2018 [facility] Brain wo contrast CT Clinical Indication: - fall Comparison: CT head dated 02/15/2018 TECHNIQUE: CT images were obtained from the foramen magnum to the vertex without the use of intravenous contrast on a multidetector CT. Coronal and sagittal reconstructions were obtained. CT imaging performed at this location utilizes radiation dose optimization techniques which include one or more of the following: -Automated exposure control -Adjustment of the mA and/or kV accordin g to patient size -Use of iterative reconstruction [employer] ue CT Radiation Dose DLP 859 mGy-cm FINDINGS: BRAIN PARENCHYMA: Diffuse cerebral volume loss is noted, appropriate for age. Periventricular and deep white matter hypodensities are noted, consistent with sequelae of chronic microvascular ischemia. There are no focal mass lesions on this noncontrast head CT. There is no mass effect, midline shift or edema. There are no intra-axial or extra-axial fluid collections, intraventricular or intraparenchymal hemorrhage. The pineal, sellar, brainstem, cerebellum and skull base regions appear unremarkable. Intracranial vascular calcifications are noted. VENTRICLES: The lateral ventricles, third and fourth ventricles appear unremarkable. The basilar cisterns are normal. ORBITS, MASTOIDS AND PARANASAL SINUSES: Partial opacification of the left maxillary sinus is likely related to mucosal secretions. The visualized orbits and paranasal sinuses are otherwise unremarkable. The mastoid air cells are clear. SKULL: There are no osseous abnormalities. If there is further concern for intracranial pathology or acute stroke, MRI of the brain may be performed for complete assessment. IMPRESSION: No acute intracranial abnormalities. ----- LEE: JANNETH 07/28/2018 [facility] 1view DX Patient Name: Morales SCHREIBER : 1950; Age: 68 years y/o Female MR: [id number] Study: Chest 1view DX 05/02/2018 3:00 AM CDT Ordering Physician: Clinical Indication: Abnormal chest sounds - Bilateral pleural effusion; Comparison: 05/01/2018 Chest one view Stable cardiomegaly. Dialysis catheter terminates in the right atrium as before. Improving small bilateral pleural effusions, pulmonary vascular congestion since previous study. No new infiltrates. SL: [id number] 05/02/2018 [facility] 1view DX Chest 1view DX CLINICAL HISTORY: - chf COMPARISON: none FINDINGS: Limited AP portable study. Support Devices: Stable position of right IJ catheter. Lungs: Persistent bibasilar effusions with accompanying atelectasis, unchanged. Persistent central vascular congestion. No pneumothorax. Cardiomediastinum: Stable cardiomediastinum. Poststernotomy changes. Bone and Soft Tissues: No acute bony abnormality is noted. Multiple EKG leads and other wires project over the patient's chest. IMPRESSION: No significant change from previous study is noted. SL: RUBEN 05/01/2018 [facility] 1view DX Study: Chest 1v iew DX portable 04/29/2018 1822 hours Clinical Indication: - chest pain; Comparison: Chest 04/28/2018 FINDINGS: Right internal jugular dialysis catheter terminates in the right atrium. There are small to moderate size bilateral pleural effusions with pulmonary consolidation, unchanged. Upper lobes are clear, and no vascular congestion is seen. Cardiac silhouette is at least top normal in size post sternotomy. Coronary artery stents are noted. IMPRESSION: No significant change. SL: CATHY- 04/29/2018 [facility] wo contrast CT Patient N damien: MARY SCHREIBER : 1950; Age: 68 years y/o Female Study: Chest wo contrast CT 04/29/2018 3:54 PM CDT Clinical Indication: - Dyspnea; Comparison: None TECHNIQUE: Sequential trans-axial images were obtained thru the chest and upper abdomen without iodinated contrast. Coronal and sagittal reconstructions were obtained. Dose: DLP = 499 mGy-cm FINDINGS: LUNG PARENCHYMA AND PLEURA: Bilateral moderately large pleural effusions show associated lower lobe consolidation with air bronchograms. There is no pneumothorax. AIRWAY: The central airway is normal. . MEDIASTINUM: No significant mediastinal lymphadenopathy. HEART: There is no evidence of RV strain. The cardiac chambers are otherwise unremarkable. There is no pericardial effusion. VASCULAR STRUCTURES: Coronary arteries and thoracic aorta contain atherosclerotic calcifications. Right-sided central venous catheter tip is in the right atrium. OSSEOUS STRUCTURES: Wire sternal sutures are manifestations of the patient's previous thoracotomy. VISUALIZED UPPER ABDOMEN: The visualized upper abdomen shows postoperative cholecystectomy changes. Left adrenal gland 1.2 x 1.8 cm nodule shows 32 Hounsfield units average density, greater than expected for fatty attenuation. ESOPHAGUS: No gross abnormalities. IMPRESSION: Moderately large pleural effusions with lower lobe consolidation and air bronchograms. In the appropriate clinical context, pneumonia may be considered. Findings should be followed to resolution to exclude underlying malignancy. Indeterminate left adrenal nodule. If clinically desired, MRI may better characterize this finding. SL: JESI 04/29/2018 [facility] Abdomen/Pelvis wo IV contrast CT EXAM: CT abdomen and pelvis without IV contrast INDICATION: Epigastric pain, lethargy COMPARISON: 11/22/2013 CT abdomen pelvis Technique: Axial CT images through the abdomen and pelvis were obtained without IV contrast. Coronal and sagittal reformats were obtained. CT Radiation Dose DLP 825.9 mGy-cm FINDINGS: Moderate to large bilateral pleural effusions layer posteriorly and causes compressive atelectasis of the lower lobes. ABDOMEN: Liver contour is nodular. Liver is somewhat small. Trace perihepatic ascites is noted in. No focal hepatic lesions identified on this nonenhanced study. Spleen and pancreas are within normal limits. Gallbladder has been removed. Right adrenal gland is normal. Left adrenal nodule measures 1.8 cm, unchanged dating back to 11/22/2013. No hydroureteronephrosis or urolithiasis identified. No focal renal lesions evident. Small bowel and colon are nondilated. The appendix is normal. Abdominal aorta is normal in caliber. Atherosclerotic calcifications course along the abdominal aorta and mesenteric and renal arteries. No threshold enlarged periaortic, retroperitoneal, mesenteric, or inguinal lymph nodes identified. Small periumbilical hernia contains fat only. PELVIS: Bladder is relatively collapsed. No pelvic mass or lymphadenopathy identified. Small amount of free fluid collects in the pelvis. Mild to moderate amount of body wall edema is present. IMPRESSION: Moderate to large bilateral pleural effusions with overlying atelectasis. Cirrhosis with trace perihepatic ascites. 1.8 cm left adrenal nodule is unchanged dating back to 11/22/2013 and likely represents an adenoma. SL: JUNAID 04/28/2018 [facility] Chest 1view DX Portable chest: The right jugular dialysis PermCath is in satisfactory position. There is a moderate right pleural effusion developing since 04/12/2018. There is a small to moderate left pleural effusion showing no significant change. The cardiac silhouette and pulmonary vasculature are within normal limits. There is mild gastric distention with gas. There is no other significant change. LEE APARICIO 04/28/2018 [facility] Abdomen AP DX Study: Abdomen A P DX 04/28/2018 7:08 PM CDT Clinical Indication: - epigastric abdominal pain; Comparison: None. FINDINGS: Portable AP view of the abdomen on 2 images. Small bilateral pleural effusions. Intestinal gas pattern is within normal limits. Nonspecific gaseous gastric distention. Cholecystectomy clips. [facility] calcified vascular phlebolith within the anatomic pelvis. Vascular calcifications. Otherwise, no pathologic calcifications, organomegaly or abnormal soft tissue masses. Bony structures are unremarkable. IMPRESSION: Negative abdomen. SL: CHAYA 04/28/2018 [facility] Chest 2 views DX Patient Name: MARY SCHREIBER : 1950; Age: 68 years Female MR: [id number] Study: Chest 2 views DX Order Time: 04/12/2018 10:30 AM CDT CLINICAL INDICATION: - I25.10 Atherosclerotic heart disease of [place] coronary artery without angina pectoris COMPARISON: Chest radiograph on 03/21/2018 FINDINGS: Lines: Right IJ down the catheter tip projects over the right atrium. Lungs: Small bilateral pleural effusions and bibasilar atelectasis. Mild central pulmonary venous congestion. No pneumothorax. Mediastinum: The cardiac silhouette is mildly enlarged. Midline trachea. Bones and soft tissues: Postoperative changes of the thorax. IMPRESSION: Cardiomegaly with central pulmonary venous congestion and small bilateral pleural effusions. SL: [id number] 04/12/2018 [facility] Ext Lower Venous Doppler Unilat US Patient Name: MARY SCHREIBER : 1950; Age: 68 years y/o Female MR: [id number] Study: Ext Lower Venous Doppler Unilat US 03/27/2018 10:06 AM CDT Ordering Physician: Sammy Ewing MD Clinical Indication: - Swelling to lower left leg Comparison: None TECHNIQUE: Sonographic evaluation of the left lower extremity veins was performed using high resolution B-mode imaging, along with pulse and color Doppler imaging. FINDINGS: Left lower extremity: The common femoral vein, superficial femoral vein, popliteal vein and visualized posterior tibial/calf veins are patent. There is no deep venous echogenic debris to suggest deep venous thrombosis. Superficial thrombus noted in GSV. IMPRESSION: Superficial thrombosis, otherwise no deep venous thrombosis of the left lower extremity appreciated. LEE: JOSE A REFERENCE: Deep veins include: common femoral vein, superficial femoral vein (also can be referred to as 'femoral vein'), popliteal vein, posterior tibial vein Superficial veins include: greater and lesser saphenous veins 03/27/2018 [facility] Chest 1view DX Clinical Indica tion:68 years Female with - s/p CABG Comparison: Chest x-ray 03/19/2018 FINDINGS: Lines: Right IJ tunneled dialysis catheter is unchanged The single frontal chest radiograph shows normal lung volumes. Hazy opacities in the lung bases, unchanged from the left and slightly decreased on the right No pneumothorax. Cardiac silhouette is stable. Coronary artery stents. Median sternotomy wires. Pulmonary vasculature is normal. The trachea is midline. There are no acute osseous abnormalities noted. IMPRESSION: 1. Slightly decreased right and unchange d left basilar hazy opacities likely due to accommodation of pleural effusions and atelectasis. 2. Stable enlargement of the cardiac madelyn houette. 03/21/2018 [facility] 1view DX Portable chest: The left jugular dialysis tempcath is in satisfactory position. There is no change in the bilateral pleural effusions and bibasilar atelectasis compared to the previous day. The upper lungs are clear. The cardiac silhouette is mildly enlarged without significant pulmonary venous congestion. There is no other significant change. [id number] 03/19/2018 [facility] 1view DX Study: Chest 1v iew DX Clinical Indication: - s/p cabg Comparison: Chest x-ray from 03/15/2018 FINDINGS: Stable changes of median sternotomy and CABG are seen. Left internal jugular central line is stable. Cardiac silhouette is mildly prominent. Central vascular congestion with small pleural effusions are seen. There is no pneumothorax. The osseous structures are unremarkable. IMPRESSION: Mild congestive heart failure SL: [id number] 03/16/2018 [facility] 1view DX Patient Name: Morales SCHREIBER : 1950; Age: 68 years Female MR: [id number] Study: Chest 1view DX Order Time: 03/15/2018 3:00 AM CDT Clinical Indication: - s/p cabg. COMPARISON: February 2018 x-rays back to March 11. FINDINGS: Views: 1 SUPPORT LINES: Poststernotomy. Left central line tip is in the superior vena cava right atrial junction. LUNGS: There is normal lung volume. There are no suspicious interstitial/airspace opacities. Bilateral pleural effusions. There is no pneumothorax. Moderate to severe edematous change. MEDIASTINUM: The cardiac silhouette is enlarged. The trachea is midline. BONES: There are no clinically significant osseous abnormalities noted. IMPRESSION: Stable moderate to severe edema. SL: [id number] 03/15/2018 [facility] Chest 1view DX Clinical indica tion: - post CABG Comparison: Chest 1 view 03/13/2018 TECHNIQUE: AP chest FINDINGS: Lines, tubes and hardware: The right IJ central line has been removed. A left IJ dialysis catheter is in stable position. Lungs and pleura: There are small layering bilateral pleural effusions. The lung volumes are low with bibasilar subsegmental atelectasis. There is prominence of the central pulmonary vasculature, compatible with pulmonary venous congestion. No appreciable pneumothorax. Heart and mediastinum: The cardiomediastinal silhouette is enlarged, but stable. Bones: No acute bony abnormality is identified. IMPRESSION: 1. Small layering bilateral pleural eff usions with bibasilar subsegmental atelectasis. 2. Pulmonary venous congestion. SL: [id number] 03/14/2018 [facility] 1view DX Portable chest: The right jugular sheath and left jugular dialysis tempcath remain in satisfactory position. There is no change in the small bilateral pleural effusions, atelectasis and pulmonary marivel ous congestion compared to the previous day. There are no other new findings. [id number] 03/13/2018 [facility] 1view DX Portable chest: The right jugular sheath and left jugular dialysis tempcath are satisfactory position. His mild pulmonary venous congestion showing no significant change compared to the previous day. There is a small right pleural effusion which is slightly increased. Mild bibasilar subsegmental atelectasis is unchanged. There are no other new findings. [id number] 03/12/2018 [facility] CVC insert non-tunnel age 5+ yrs VR DIALYSIS TEMPCATH PLACEMENT: HISTORY: Stage IV chronic kidney disease with acute kidney injury secondary to contrast nephropathy and recent coronary bypass surgery. Catheter access was requested by Dr. Wisdom for hemodialysis. Left sided approach was planned due to presence of a right jugular sheath placed at the time of surgery. PROCEDURE: The procedure was done in the patient's ICU bed without fluoroscopy. Preliminary ultrasound showed the left internal jugular vein to be patent and compressible. Using maximum barrier sterile Seldinger technique, local anesthetic and ultrasound guidance, the left internal jugular vein above the clavicle was accessed with a micropuncture set. A 0.038J wire was then placed. The tract was dilated following which a triple-lumen dialysis temp cath was placed. The ports were aspirated with good blood return, then flushed and capped. The catheter hub was then fastened to the skin with a [employer] device. The patient tolerated the procedure well without immediate complications. A postprocedure chest radiograph showed the catheter tip in the right atrium. Spot imaging of the ultrasound guidance was done. [id number] 03/11/2018 [facility] 1view DX Clinical Indica tion: Central Line Placement - Dialysis tempcath placement Comparison: March 11, 2018 at 7:02 AM FINDINGS: AP chest radiograph was obtained. MEDIASTINUM: The cardiac silhouette is enlarged. The aorta demonstrates atherosclerotic calcification. There are sternal wires overlying the mediastinum. There is a right IJ sheath with the distal tip overlying the superior vena cava. There is interval placement of a left IJ dialysis catheter with the distal tip overlying the right atrium. LUNGS: Lung volumes are unchanged. There is hazy opacity in the bilateral lung bases and blunting of the costophrenic angle on the right. There are no pneumothoraces. There are pacer leads overlying the cardiac silhouette. BONES: The visualized osseous structures are unremarkable. IMPRESSION: 1. Interval placement of left IJ dialys is catheter with the distal tip overlying the right atrium. Otherwise stable exam. SL: [id number] 03/11/2018 [facility] 1view DX XR CHEST 1 VIEW HISTORY: - s/p CABG. COMPARISON: Multiple priors, most recent CXR 03/10/2018. FINDINGS: Expiratory portable exam with evidence of sternotomy. Stable drains and right jugular sheath. Stable cardiomegaly. Vascular markings are stable. Stable bibasilar opacity, left greater than right. Left hemidiaphragm is still obscured. Small amount pleural fluid is seen on both sides. IMPRESSION: 1. Stable appearance of the chest as com pared to the prior day. SL: [id number] 03/11/2018 [facility] 1view DX Clinical Indica tion: - s/p CABG. Comparison: 03/09/2018 Findings: Frontal view of the chest was obtained. Right IJ vascular sheath tip projects over the SVC. Electrocardiogram leads overlie the chest. There are sternotomy wires. Epicardial pacing wires are seen. There are anterior mediastinal and pleural drains. The cardiac silhouette is enlarged. Atheromatous changes are present in the aorta. Lung volumes are low with associated atelectatic change. There is a probable small left effusion. No pneumothorax. No acute osseous abnormality. IMPRESSION: Persistent low lung volumes with atelectasis grossly similar to previous exam SL: [id number] 03/10/2018 [facility] 1view DX Clinical Indica tion: - s/p CABG. Comparison: 03/08/2018 Findings: Frontal view of the chest was obtained. Right IJ catheter tip projects over the SVC. Electrocardiogram leads overlie the chest. There are pleural and mediastinal drains. Epicardial pacing leads are seen. There are postsurgical changes of sternotomy. There are coronary artery stents. The cardiac silhouette is enlarged. Atheromatous changes are present in the aorta. There is volume loss at the left lung base with left basilar atelectasis and possible trace left effusion. No pneumothorax. No acute osseous abnormality. IMPRESSION: Postsurgical changes of sternotomy with left basilar atelectasis possible left effusion SL: [id number] 03/09/2018 [facility] 1view DX CHEST FRONTAL V IEW. 03/08/2018 0542 hours HISTORY: Status post coronary artery bypass graft. COMPARISON: 03/07/2018 FINDINGS: Sternal wires, right IJ introducer, bilateral chest tubes, and mediastinal drain stable. Mild underlying edema pattern suggested. Development of prominent opacity left lung base suggestive infiltrate/atelectasis and possible small left pleural fluid. Probable atelectasis right lung base stable. No pneumothorax. IMPRESSION: 1. Increase opacity left lung base like ly representing atelectasis and pleural fluid. 2. Stable right base probable atelectasi s. 3. Mild underlying edema pattern suggest ed. SL: [id number] 03/08/2018 [facility] 1view DX Chest 1view DX CLINICAL HISTORY: - s/p CABG COMPARISON: 03/06/2018 FINDINGS: Limited AP portable study. Support Devices: Right IJ [place] catheter has been removed and a right jugular sheath remains in place terminating in the SVC. The various other support lines and tubes are stable in position in comparison to previous study. Lungs: Pulmonary underinflation. Mild central vascular congestion and basilar atelectasis persists. Small left basilar effusion, unchanged. No pneumothorax. Cardiomediastinum: Stable cardiomediastinum. Bone and Soft Tissues: No acute bony abnormality is noted. Multiple EKG leads and other wires project over the patient's chest. IMPRESSION: No significant change from previous study is noted. SL: [id number] 03/07/2018 [facility] 1view DX Clinical Indica tion: - s/p CABG on 03/05 Comparison: 03/05/2018 FINDINGS: Single frontal radiograph of the chest is performed. Postoperative change from median sternotomy again noted. Support lines and tubes are stable in position. Heart size is mildly enlarged. Ill-defined right perihilar and infrahilar infiltrate appears mildly progressed. Left perihilar and left basilar infiltrates are stable. No pleural effusion or pneumothorax. No acute osseous abnormality. IMPRESSION: 1. Mildly progressed right perihilar and infrahilar infiltrate. Otherwise stable exam. SL: [id number] 03/06/2018 [facility] 1view DX Patient Name: Morales SCHREIBER : 1950; Age: 68 years y/o Female MR: [id number] Study: CHEST 1VIEW DX 03/05/2018 8:49 AM CDT Ordering Physician: Gabriele Chaney MD Clinical Indication: Respiratory distress - s/p cabg *will call once pt on unit; Comparison: None COMMENT: Initial single postoperative view the chest show serve as a baseline exam to correlate to future studies. Atelectatic changes are present in both lungs with probable mild congestive change on the left. Heart normal and aorta atherosclerotic. Post coronary artery bypass graft changes with right IJ [place] catheter tip in the pulmonary outflow tract. Nasogastric tube in the stomach. ET tube in the mid lower trachea. IMPRESSION: Satisfactory initial post coronary artery bypass graft baseline exam of the chest. SL: [id number] 03/05/2018 [facility] 1view DX Chest, single v iew dated 03/05/2018. HISTORY: Respiratory distress. Preop coronary artery bypass graft. Comparison is made to a prior study dated 03/04/2018. The heart is normal in size. The cardiomediastinal shadow is stable. New alveolar opacity is identified in the right midlung. The left lung remains clear. The pulmonary vasculature appears normal in caliber. No acute pleural space abnormalities are identified. IMPRESSION: 1. New alveolar opacity in the right mid lung, worrisome for acute pneumonia. SL: 131 03/05/2018 [facility] 1view DX Clinical Indica tion: - hypoxia; Comparison: 02/28/2018 FINDINGS: AP chest radiographs shows normal lung volumes without interstitial or airspace opacities, pleural effusions or pneumothorax. The heart size and pulmonary vasculature are normal. The trachea is midline. There are no clinically significant osseous abnormalities noted. IMPRESSION: No chest radiographic evidence of acute cardiopulmonary disease. SL: [id number] 03/04/2018 [facility] Chest 1view DX Clinical Indica tion:68 years Female with - chest pain Comparison: Chest x-ray 02/14/2018 FINDINGS: Lines: None. The single frontal chest radiograph shows normal lung volumes. No interstitial or airspace opacities. No pleural effusion. No pneumothorax. Cardiac silhouette is normal. Pulmonary vasculature is normal. The trachea is midline. There are no acute osseous abnormalities noted. IMPRESSION: No acute cardiopulmonary abnormality. 02/28/2018 [facility] Liver US Patient Name: MARY RENDON : 1950; Age: 68 years y/o Female MR: [id number] Study: Liver US 02/18/2018 9:47 AM CDT Ordering Physician: Clinical Indication: - Hepatic cirrhosis; Comparison: 02/17/2016, 01/16/2017 Liver: Diffusely heterogeneously hyperechoic. Liver volume/size appears grossly normal. No focal lesion or duct dilatation. Gallbladder: Absent. Common bile duct dilated, up to 1.0 cm. Pancreas: Obscured by overlying bowel gas. Right kidney: The no hydronephrosis, incompletely visualized. Small right pleural effusion. No significant ascites seen in the right upper quadrant. IMPRESSION: Fibrofatty infiltration of the liver which may be related to underlying cirrhosis. No hepatic mass or intrahepatic duct dilatation is otherwise evident. Overall appearance is unchanged from 01/16/2017. Common bile duct is dilated up to 10 mm. This could be physiologic post cholecystectomy. However correlate with laboratory data to assess obstructive significance. SL: [id number] 02/18/2018 [facility] Brain wo contrast CT EXAM: CT BRAIN WITHOUT CONTRAST DATE: 02/15/2018 10:03 AM CDT INDICATION: - post pt fall on head/ pending heparin infusion. Hit head. ADDITIONAL INFORMATION AND CT DLP: 732 mGy-cm. COMPARISON: None. TECHNIQUE: Routine axial CT images of the brain were obtained. IV contrast: None. FINDINGS: Non-contrast images of the head demonstrate no edema, hemorrhage, mass lesion or other acute intracranial abnormality. Diffuse cerebral atrophy and mild chronic small vessel ischemic change. Nolasco- white matter distinction is preserved. The ventricles are stable. The basal cisterns and sulci are normal in size. Marked atherosclerotic calcification of the distal internal carotid and vertebral arteries. Stable left tentorial calcification is present. Mild chronic inflammatory change of the paranasal sinus. Partial opacification of the mastoid air cells. IMPRESSION: 1. No definite acute infarct or intracra nial hemorrhage detected. 2. Diffuse cerebral atrophy and mild chr onic small vessel ischemic change. If there is further concern for intracranial pathology or acute stroke, MRI of the brain may be performed for complete assessment. SL: [id number] 02/15/2018 [facility] contrast MRI MRI BRAI N WITHOUT CONTRAST INDICATION: Vertigo, dizziness COMPARISON: CT brain 02/14/2018 DISCUSSION: Image detail is degraded by extensive motion artifacts. There are generalized involutional changes of the brain and microangiopathic changes of the white matter. There is no evidence of acute vascular insults. Normal flow voids of the bilateral internal carotid arteries and vertebrobasilar arteries are visible. Grossly, there is no evidence of space occupying lesions, hemorrhage, hydrocephalus, midline shift, or extra-axial fluid collections. No cortical-based, suprasellar, craniocervical, or bone abnormalities are seen. IMPRESSION: Chronic age-related changes of the brain. No acute intracranial abnormalities are visualized. SL:16 02/15/2018 [facility] Chest 1view DX Clinical Indica tion: - dizziness; Comparison: 02/08/2018 FINDINGS: AP chest radiographs shows normal lung volumes without interstitial or airspace opacities, pleural effusions or pneumothorax. The heart size and pulmonary vasculature are normal. The trachea is midline. There are no clinically significant osseous abnormalities noted. IMPRESSION: No chest radiographic evidence of acute cardiopulmonary disease. SL: [id number] 02/14/[address] [facility] [address] Clinical Indication: Increasing dizziness starting on Sunday. Discharged from this hospital on Sunday.; Comparison: 01/15/2017 TECHNIQUE: CT images were obtained from the foramen magnum to the vertex without the use of intravenous contrast on a multidetector CT. Coronal and sagittal reconstructions were obtained. CT radiation dose DLP: 859.11 mGy-cm FINDINGS: BRAIN PARENCHYMA: There is generalized brain parenchymal atrophy related to the patient's age. Mild nonspecific periventricular white matter disease changes are noted. Atherosclerotic calcifications are present within the carotid siphons and distal vertebral arteries. There are no focal mass lesions on this noncontrast head CT. There is no mass effect, midline shift or edema. There are no intra-axial or extra-axial fluid collections, intraventricular or intraparenchymal hemorrhage. There is no noncontrast CT evidence of a subacute stroke. The pineal, sellar, brainstem, cerebellum and skull base regions appear unremarkable. VENTRICLES: The lateral ventricles, third and fourth ventricles appear unremarkable. The basilar cisterns are normal. ORBITS, MASTOIDS AND PARANASAL SINUSES: The visualized orbits and paranasal sinuses are unremarkable. The mastoid air cells are clear. SKULL: There are no calvarial abnormalities seen. If there is further concern for intracranial pathology or acute stroke, MRI of the brain may be performed for complete assessment. IMPRESSION: Chronic age-related and small vessel ischemic changes without mass, hemorrhage or subacute stroke. SL: [id number] 02/14/2018 [facility] 1view DX EXAM: Chest 1vi ew DX DATE: 02/08/2018 1:01 PM CDT INDICATION: Chest pain. COMPARISON: 01/30/2017. IMPRESSION: Stable cardiac silhouette and mediastinum. Marked atherosclerotic thoracic aorta. No focal consolidation, significant pleural effusion or pneumothorax. Multiple surgical clips are present within the right upper quadrant. SL: [id number] 02/08/2018 [facility] Chest 2 views DX Patient Name: MARY SCHREIBER : 1950; Age: 67 years y/o Female MR: [id number] Study: Chest 2 views DX 01/30/2017 11:40 AM CDT Ordering Physician: Clinical Indication: Pneumonia; Comparison: 01/25/2017 2 views chest Left posterior lung base atelectasis or infiltrate, with small left pleural effusion. Correlate clinically for pneumonia. Right lung clear. Heart size normal. Coronary stents are noted. There is no evidence for congestive heart failure or pulmonary edema. IMPRESSION: Development of pleural and parenchymal opacities extremely posterior left lower lobe. Correlate clinically for pneumonia. SL: [id number] 01/30/2017 [facility] Chest 1view DX Chest 1view DX CLINICAL HISTORY:Abnormal chest sounds COMPARISON: 01/25/2000 FINDINGS: Limited AP portable study. Support Devices: None Lungs: Mild central pulmonary edema persists without significant interval change. Persistent bibasilar effusions and accompanying atelectasis. Cardiomediastinum: Stable cardiomediastinum. Bone and Soft Tissues: No acute bony abnormality is noted. Multiple EKG leads and other wires project over the patient's chest. IMPRESSION: No significant change from previous study is noted. SL: [id number] 01/25/2017 [facility] Chest 1view DX CHEST, ONE VIEW HISTORY: Chest pain. COMPARISON: 01/15/2017 FINDINGS: Since the prior examination, mild pulmonary edema has developed with small to moderate bilateral layering pleural effusions, right greater than left. No pneumothorax is seen. Heart size within normal limits. Coronary vascular stents are again noted. No acute osseous abnormality. SL: [id number] 01/24/2017 [facility] Carotid artery Doppler bilat US Patient Name: MARY SCHREIBER : 1950; Age: 67 years Female MR: [id number] Study: Carotid artery Doppler bilat US 01/16/2017 10:31 AM CDT Clinical Indication: Syncope and collapse. COMPARISON: None TECHNIQUE: Wheatley-scale, color Doppler and spectral Doppler of the carotid arteries was performed. Any reported ICA stenoses indirectly reference the distal internal carotid diameter as the denominator for the stenosis measurement, utilizing consensus panel criteria. FINDINGS: RIGHT: Calcified plaque formation. ICA PSV 104 cm/sec CCA PSV 94 cm/sec ICA/CCA ratio 1.11 Vertebral flow is antegrade. External carotid artery is patent. LEFT: Mild calcified plaque formation. ICA PSV 102 cm/sec CCA PSV 101 cm/sec ICA/CCA ratio 1.01 Vertebral flow is antegrade. External carotid artery is patent. IMPRESSION: 1. RIGHT: ICA stenosis <50% by velocity criteria. 1. LEFT: ICA stenosis <50% by velocity sonny fung. Consensus panel Doppler US criteria for diagnosis of ICA stenosis: Stenosis (%) ICA PSV (cm/sec) ICA/CCA ratio <50 <125 <2.0 50-69 125-230 2.0-4.0 >70 but less than >230 >4.0 near occlusion Near occlusion High, low, or Variable undetectable SL: DONNIE 01/16/2017 [facility] Abdomen complete US EXAM: Ultr asound abdomen HISTORY: Nausea COMPARISON: Ultrasound 02/17/2016 TECHNIQUE: Grayscale and limited color sonographic evaluation of the abdomen was performed with standard technique. FINDINGS: LIVER: Heterogeneous echotexture with cirrhotic change. BILE DUCTS: Visualized common duct measures 6 mm diameter. GALLBLADDER: Cholecystectomy. PANCREAS: The visualized pancreas appears unremarkable.. SPLEEN: Measures 11 cm length. KIDNEYS: No hydronephrosis. Mild scarring right kidney. AORTA AND INFERIOR VENA CAVA: Atherosclerosis aorta. IVC is visualized. IMPRESSION: 1. Liver cirrhosis. 2. Cholecystectomy. 3. Mild scarring right kidney. SL: [id number] 01/16/2017 [facility] Spine cervical wo contrast CT Patient Name: MARY SCHREBIER : 1950; Age: 66 years Female MR: [id number] Study: Spine cervical wo contrast CT 01/15/2017 4:06 PM CDT CLINICAL INDICATION: Pt c/o, 'Pain to back of head s/p slip \\T\\ fall in shower approx 30 min ago,' Pt is unusure of LOC, AN=225 in triage, Pt AAO x4 @ this time; syncope/trauma head neck - dlp: 326.77 . ADDITIONAL HISTORY: None COMPARISON: None TECHNIQUE: Multidetector CT imaging of the cervical spine is performed. Coronal and sagittal reconstructions were obtained. DLP: 326.77 mGy-cm FINDINGS: ALIGNMENT AND GENERAL ASSESSMENT: Loss of the normal cervical lordosis. Mild grade 1 anterolisthesis of C3 on C4 and C4 on C5. The craniocervical junction is normal. The atlanto-dental alignment appears normal. The posterior elements and spinous processes are intact. The facet joint, spinolaminar and spinous process alignment are intact. DISC SPACES AND SOFT TISSUES: The prevertebral soft tissues are normal. Moderate central disc protrusion at C2-C3. Small to moderate posterior disc osteophyte complexes at C3-C4, C4-C5, C5-C6, and C6-C7. Moderate spinal canal and moderate left foraminal stenosis at C5-C6. Moderate spinal canal and moderate bilateral foraminal stenosis at C6-C7. MRI is the gold standard to assess for disc disease. CT myelogram or MRI of the cervical spine may be performed, if there is further concern. IMPRESSION: No acute cervical spine abnormalities. SL: [id number] 01/15/2017 [facility] Brain wo contrast CT EXAM: CT BRAIN WITHOUT CONTRAST DATE: 01/15/2017 4:07 PM CDT INDICATION: Syncope; Pt c/o, 'Pain to back of head s/p slip \\T\\ fall in shower approx 30 min ago,' Pt is unusure of LOC, MK=963 in triage, Pt AAO x4 @ this time; head injury - dlp: 901.[address] DLP: mGy-cm. COMPARISON: CT head of 02/17/2016. TECHNIQUE: Routine axial CT images of the brain were obtained. IV contrast: None. FINDINGS: Non-contrast images of the head demonstrate no edema, hemorrhage, mass lesion or other acute intracranial abnormality. Diffuse cerebral atrophy and mild chronic small vessel ischemic change. Nolasco- white matter distinction is preserved. The ventricles are normal. The basal cisterns and sulci are normal in size. Mild chronic inflammatory change of the paranasal sinus. Partial opacification of the mastoid air cells. IMPRESSION: 1. No definite acute infarct or intracra nial hemorrhage detected. 2. Diffuse cerebral atrophy and mild chr onic small vessel ischemic change. If there is further concern for intracranial pathology or acute stroke, MRI of the brain may be performed for complete assessment. SL: [id number] 01/15/2017 [facility] Pelvis AP DX EXAM: Pelvis HISTORY: Pelvic pain, fall in shower COMPARISON: None TECHNIQUE: Frontal view pelvis FINDINGS: No fracture or other acute traumatic injury is seen. Extensive arteriosclerosis. Multiple phleboliths in the pelvis. Generalized osteopenia. SL: [id number] 01/15/2017 [facility] Chest 1view DX Patient Name: Morales SCHREIBER : 1950; Age: 66 years y/o Female MR: [id number] * CHEST, portable, 1 view HISTORY: Syncope, fever COMPARISON: None TECHNIQUE: A portable frontal radiograph of the chest was obtained. FINDINGS: The lungs are clear. There are no pleural effusions. The heart is normal in size. There appear to be left coronary artery stents. The regional skeleton is unremarkable. IMPRESSION: 1. No active disease. 2. There appear to be left coronary bhanu ry stents in place. SL: [id number] 01/15/2017 [facility] Abdomen RUQ US EXAM: US ABDOME N LIMITED DATE: 02/17/2016 6:21 PM CDT INDICATION: Abdominal pain, acute ADDITIONAL INFORMATION: None. COMPARISON: None. TECHNIQUE: Multiplanar grayscale and color Doppler ultrasound of the right upper quadrant. FINDINGS: Liver: Craniocaudal length: 10.8 cm. Echogenicity: Heterogenous and coarsened echogenicity Surface nodularity: Mild nodularity Mass (size and location): None. Portal vein: Normal. Bile ducts: Common bile duct diameter: 0.8 cm. Intrahepatic ducts: Normal. Gallbladder: Post cholecystectomy. Pancreas: Poorly seen due to overlying bowel gas. Head and uncinate process: Normal. Body and tail: Not seen. Spleen: Craniocaudal length: 9.5 cm. Mass or focal lesion (size and location): None. Right kidney: Hydronephrosis: None. Size: 9.4 x 4.4 x 4 cm. Echogenicity: Normal. Mass/Stone/Cyst (size and location): None. Ascites: None. IMPRESSION: 1. Coarsened hepatic echotexture with n odularity suggesting cirrhosis. 2. Postcholecystectomy changes. 02/17/2016 [facility] Chest wo contrast CT EXAM: CT CHEST WITHOUT CONTRAST DATE: 02/17/2016 at 1549 hours INDICATION: Pain Post Trauma TECHNIQUE: Volumetric CT acquisition of the chest without contrast. Axial, sagittal and coronal reconstructions. IV contrast: None. DLP: 572 mGy-cm COMPARISON: CT abdomen and pelvis report from November 22, 2013. Unable to load images for direct comparison. FINDINGS: Lines and Tubes: None. Lower Neck: The visible portions or the lower neck and thyroid are unremarkable. Heart and Great Vessels: Heart size is within normal limits. Atherosclerotic calcifications in the aorta and coronary arteries. Coronary artery stents in place. Lymph Nodes: No hilar, mediastinal, axillary or internal mammary lymphadenopathy. Lungs: Minor left upper and lower lobe subsegmental atelectasis or scarring. Several tiny 2-3 mm nodules along the right minor fissure (series 3 images 80- 83) likely represent intrapulmonary nodes. No contusion. Pleura: No pleural effusion or pneumothorax. Upper abdomen: Left adrenal gland nodule measuring 1.7 x 1.3 cm (series 3 image 167). This reportedly measured 1.[address] abdomen and pelvis on 11/22/2013. Status post cholecystectomy. Bones and Soft Tissues: Mildly depressed fracture of the anterior right second rib (series 3 image 40). Two subcutaneous 7 mm structures anteriorly in the upper chest wall (series 3 image 38) and chest 2 the right of midline of the anterior mid chest wall (series 3 image 65) most likely representing sebaceous cysts. IMPRESSION: 1. Mildly depressed anterior right seco nd rib fracture. 2. Minor left upper and lower lobe subs egmental atelectasis or scarring. 3. Several tiny 2-3 mm nodules along th e right minor fissure likely represents intrapulmonary nodes. 4. Left adrenal nodule is not significa ntly changed since CT abdomen and pelvis on 11/22/2013 and likely represents an adenoma. 5. Two subcentimeter subcutaneous struc tures in the anterior chest wall, likely sebaceous cysts. 6. Atherosclerosis and coronary artery stents. RECOMMENDATIONS: None. 02/17/2016 [facility] Spine cervical wo contrast CT EXAM: CT CERVICAL SPINE WITHOUT CONTRAST DATE: 02/17/2016 at 1544 hours INDICATION: Pain, Trauma COMPARISON: None available. TECHNIQUE: Volumetric acquisition of the cervical spine without contrast. Axial, sagittal and coronal reconstructions. IV contrast: None. DLP: 363 mGy-cm FINDINGS: The spine is imaged from the skull base to the level of T2. No acute fracture or malalignment is identified. Calcification adjacent to the C7 spinous process may relate to old injury. Multilevel degenerative disc disease throughout the cervical spine most severe at C5-C6 and C6-C7. Bulky posterior disc osteophyte complexes at C5-C6 and C6-C7 contribute to moderate central canal stenosis. Central disc protrusion at C2-C3 with mild central canal narrowing. No significant prevertebral or paravertebral soft tissue swelling or hematoma. IMPRESSION: 1. No acute fracture or malalignment. 2. Multilevel degenerative disc disease with bulky posterior disc osteophyte complexes at C5-C6 and C6-C7 contributing to moderate central canal stenosis. 3. Central disc protrusion at C2-C3 wit h mild central canal narrowing. 02/17/2016 [facility] Brain wo contrast CT EXAM: CT BRAIN WITHOUT CONTRAST DATE: 02/17/2016 2:00 PM CDT INDICATION: Headache with Trauma COMPARISON: 09/13/2011 TECHNIQUE: Routine axial images of the brain were obtained using a conventional ct scanner. No reformats. IV contrast: None. Dose: Total DLP 1049.62 mGy*cm FINDINGS: Mild generalized volume loss has not progressed. The appearance of the remainder of the brain parenchyma is alsounchanged. In particular, there has been no significant interval hemorrhage or development of hydrocephalus. Incidental imaging of the orbits, skull, and skull base demonstrates no interval change. The left maxillary sinus is partially opacified. IMPRESSION: 1. No recent infarct or hemorrhage. 2. Left maxillary sinus inflammatory viktoriya nges. 02/17/2016 [facility] Chest 1view DX EXAM: XR CHEST 1 VIEW DATE: 02/17/2016 at 1420 hours INDICATION: Chest pain COMPARISON: 07/18/2014 TECHNIQUE: AP chest FINDINGS: No pulmonary or pleural-based abnormality is identified. Pulmonary vascularity is normal. The heart size is normal for technique. Coronary artery stents are noted. No acute bony abnormality is identified. IMPRESSION: No acute cardiopulmonary abnormality, and no significant change since 07/18/2014. 02/17/2016 [facility] Spine lumbar 2 or 3 views DX L umbosacral spine series, Jul 18, 2014 09:35:11 PM CLINICAL HISTORY: See Clinic Indication ; Pain, Lumbar region TECHNIQUE: Routine AP, lateral, views of the lumbosacral spine were obtained. COMPARISON: None FINDINGS: No acute fracture, subluxation, or dislocation is visualized in the lumbosacral spine. IMPRESSION: No acute abnormality of the lumbosacral spine. SL: 07/18/2014 [facility] Ribs unilateral 3 views w PA chest DX Chest 2 views, Jul 18, 2014 09:35:11 PM CLINICAL HISTORY: Pain from a fall ; rib series, TECHNIQUE: Routine PA and lateral views of the chest were obtained. COMPARISON: None FINDINGS: Subtle lingular and left upper lobe patchy airspace opacities are present. No pleural effusion or pneumothorax is present. Cardiomediastinal silhouette is normal. Coronary stents are noted. Bones are unremarkable. IMPRESSION: Subtle lingular and left upper lobe patchy airspace opacities, possibly pulmonary contusions.. SL: 14 07/18/2014 [facility] Abdomen/Pelvis w/wo IV contrast CT HISTORY: Cirrhosis. CT abdomen and pelvis performed without and with contrast. Precontrast series demonstrates previous cholecystectomy. No pathologic calcification within the urinary or biliary tract. No pleural effusion or pericardial effusion. Visualized lung bases are clear. Liver, spleen, pancreas, adrenal glands and kidneys demonstrate no acute findings. There is a 1.5 cm nodule the left adrenal gland which is likely an adenoma. No bowel obstruction or distention. No free air or pathologic fluid. No aortic aneurysm. No enlarged lymph nodes are noted. Pelvic CT demonstrates normal appendix. No pathologic pelvic fluid mass or inflammation. IMPRESSION: Previous cholecystectomy. No acute upper abdominal findings. No focal hepatic abnormality or changes of portal hypertension are suggested. Small left adrenal nodule, likely adenoma. SL:13 11/22/2013 [facility] Consultation Notes No Data Provided for This Section Discharge Summaries No Data Provided for This Section History and Physicals No Data Provided for This Section Vital Signs Vital Sign Value Date Comments Source Respitory Rate 13 06/07/2020 [facility] Systolic (mm Hg) 94 06/07/2020 [facility] Diastolic (mm Hg) 47 06/07/2020 [facility] Respitory Rate 13 06/07/2020 [facility] Systolic (mm Hg) 102 06/07/2020 [facility] Diastolic (mm Hg) 48 06/07/2020 [facility] Temperature Oral (F) 98.0 F 06/07/2020 [facility] Respitory Rate 17 06/07/2020 [facility] Systolic (mm Hg) 148 06/07/2020 [facility] Diastolic (mm Hg) 60 06/07/2020 [facility] Temperature Oral (F) 98.0 F 06/07/2020 [facility] Temperature Oral (F) 98.1 F 06/07/2020 [facility] Heart Rate 79 06/06/2020 [facility] Heart Rate 79 06/06/2020 [facility] Heart Rate 86 06/06/2020 [facility] Height 157.48 cm 05/31/2020 [facility] BMI Calculated 20.16 05/31/2020 [facility] Weight 50 0 05/31/2020 [facility] Systolic (mm Hg) 120 05/24/2020 [facility] Diastolic (mm Hg) 61 05/24/2020 [facility] Heart Rate 70 05/24/2020 [facility] Respitory Rate 18 05/24/2020 [facility] Systolic (mm Hg) 151 05/24/2020 [facility] Diastolic (mm Hg) 95 05/24/2020 [facility] Respitory Rate 18 05/24/2020 [facility] Systolic (mm Hg) 130 05/24/2020 [facility] Diastolic (mm Hg) 77 05/24/2020 [facility] Respitory Rate 18 05/24/2020 [facility] Heart Rate 78 05/24/2020 [facility] Heart Rate 71 05/23/2020 [facility] Height 152.4 cm 05/23/2020 [facility] BMI Calculated 23.09 05/23/2020 [facility] Weight 53.636 05/23/2020 [facility] Temperature Oral (F) 99 F 05/23/2020 [facility] Respitory Rate 13 12/30/2019 [facility] Systolic (mm Hg) 126 12/30/2019 [facility] Diastolic (mm Hg) 58 12/30/2019 [facility] Temperature Oral (F) 98.0 F 12/30/2019 [facility] Respitory Rate 14 12/30/2019 [facility] Systolic (mm Hg) 123 12/30/2019 [facility] Diastolic (mm Hg) 56 12/30/2019 [facility] Respitory Rate 12 12/30/2019 [facility] Systolic (mm Hg) 135 12/30/2019 [facility] Diastolic (mm Hg) 66 12/30/2019 [facility] Heart Rate 90 12/30/2019 [facility] Temperature Oral (F) 98 F 12/30/2019 [facility] Weight 58.182 12/30/2019 [facility] Systolic (mm Hg) 142 12/12/2019 [facility] Diastolic (mm Hg) 75 12/12/2019 [facility] Heart Rate 69 12/12/2019 [facility] Respitory Rate 18 12/12/2019 [facility] Temperature Oral (F) 98.3 F 12/12/2019 [facility] Systolic (mm Hg) 138 12/11/2019 [facility] Diastolic (mm Hg) 62 12/11/2019 [facility] Heart Rate 70 12/11/2019 [facility] Respitory Rate 17 12/11/2019 [facility] Systolic (mm Hg) 114 12/11/2019 [facility] Diastolic (mm Hg) 62 12/11/2019 [facility] Heart Rate 70 12/11/2019 [facility] Respitory Rate 16 12/11/2019 [facility] Temperature Oral (F) 98.1 F 12/11/2019 [facility] Weight 53.636 12/11/2019 [facility] Systolic (mm Hg) 117 12/05/2019 [facility] Diastolic (mm Hg) 58 12/05/2019 [facility] Heart Rate 72 12/05/2019 [facility] Respitory Rate 18 12/05/2019 [facility] Temperature Oral (F) 99.5 F 12/05/2019 [facility] Height 152.4 cm 12/05/2019 [facility] BMI Calculated 25.25 12/05/2019 [facility] Weight 58.636 12/05/2019 [facility] Temperature Oral (F) 98.6 F 11/27/2019 [facility] Heart Rate 75 11/27/2019 [facility] Systolic (mm Hg) 120 11/27/2019 [facility] Diastolic (mm Hg) 66 11/27/2019 [facility] Systolic (mm Hg) 116 11/26/2019 [facility] Diastolic (mm Hg) 55 11/26/2019 [facility] Systolic (mm Hg) 140 11/26/2019 [facility] Diastolic (mm Hg) 65 11/26/2019 [facility] Respitory Rate 13 11/26/2019 [facility] Temperature Oral (F) 98.0 F 11/26/2019 [facility] Respitory Rate 11 11/26/2019 [facility] Respitory Rate 13 11/26/2019 [facility] Temperature Oral (F) 98.6 F 11/26/2019 [facility] Heart Rate 63 11/26/2019 [facility] Heart Rate 62 11/26/2019 [facility] Height 152.4 cm 11/21/2019 [facility] Weight 53.5 11/21/2019 [facility] BMI Calculated 23.03 11/21/2019 [facility] Height 157.48 cm 11/21/2019 [facility] BMI Calculated 23.83 11/21/2019 [facility] Weight 59.091 11/21/2019 [facility] Temperature Oral (F) 97.9 F 10/27/2019 [facility] Systolic (mm Hg) 129 10/27/2019 [facility] Diastolic (mm Hg) 55 10/27/2019 [facility] Respitory Rate 20 10/27/2019 [facility] Heart Rate 64 10/27/2019 [facility] Systolic (mm Hg) 133 10/27/2019 [facility] Diastolic (mm Hg) 62 10/27/2019 [facility] Systolic (mm Hg) 133 10/27/2019 [facility] Diastolic (mm Hg) 56 10/27/2019 [facility] Heart Rate 61 10/27/2019 [facility] Temperature Oral (F) 97.4 F 10/27/2019 [facility] Respitory Rate 16 10/27/2019 [facility] Heart Rate 60 10/27/2019 [facility] Resp[facility] Rate 20 10/27/2019 [facility] Temperature Oral (F) 96 F 10/27/2019 [facility] Height 152.4 cm 10/27/2019 [facility] BMI Calculated 24.85 10/27/2019 [facility] Weight 57.727 10/27/2019 [facility] Resp[facility] Rate 16 09/03/2019 [facility] Systolic (mm Hg) 109 09/03/2019 [facility] Diastolic (mm Hg) 50 09/03/2019 [facility] Respitory Rate 13 09/03/2019 [facility] Systolic (mm Hg) 122 09/03/2019 [facility] Diastolic (mm Hg) 64 09/03/2019 [facility] Temperature Oral (F) 98.1 F 09/03/2019 [facility] Respitory Rate 16 09/03/2019 [facility] Systolic (mm Hg) 117 09/03/2019 [facility] Diastolic (mm Hg) 51 09/03/2019 [facility] Heart Rate 57 09/03/2019 [facility] Temperature Oral (F) 98.3 F 09/03/2019 [facility] Height 160.02 cm 09/03/2019 [facility] BMI Calculated 24.85 09/03/2019 [facility] Weight 63.636 09/03/2019 [facility] Temperature Oral (F) 98.1 F 07/14/2019 [facility] Respitory Rate 18 07/14/2019 [facility] Systolic (mm Hg) 139 07/14/2019 [facility] Diastolic (mm Hg) 52 07/14/2019 [facility] Respitory Rate 18 07/14/2019 [facility] Systolic (mm Hg) 147 07/14/2019 [facility] Diastolic (mm Hg) 55 07/14/2019 [facility] Systolic (mm Hg) 142 07/14/2019 [facility] Diastolic (mm Hg) 47 07/14/2019 [facility] Temperature Oral (F) 98.2 F 07/14/2019 [facility] Respitory Rate 17 07/14/2019 [facility] Temperature Oral (F) 98.1 F 07/13/2019 [facility] Heart Rate 62 07/13/2019 [facility] Height 162.56 cm 07/13/2019 [facility] BMI Calculated 22.19 07/13/2019 [facility] Weight 58.636 07/13/2019 [facility] Temperature Oral (F) 98.6 F 04/04/2019 [facility] Respitory Rate 19 04/04/2019 [facility] Systolic (mm Hg) 132 04/04/2019 [facility] Diastolic (mm Hg) 67 04/04/2019 [facility] Heart Rate 73 04/04/2019 [facility] Systolic (mm Hg) 125 04/04/2019 [facility] Diastolic (mm Hg) 73 04/04/2019 [facility] Respitory Rate 19 04/04/2019 [facility] Heart Rate 78 04/04/2019 [facility] Temperature Oral (F) 99.0 F 04/04/2019 [facility] Systolic (mm Hg) 133 04/04/2019 [facility] Diastolic (mm Hg) 68 04/04/2019 [facility] Rate 18 04/04/2019 [facility] Temperature Oral (F) 100.9 F 04/04/2019 [facility] Heart Rate 73 04/04/2019 [facility] Height 152.4 cm 04/03/2019 [facility] Weight 63.636 04/03/2019 [facility] BMI Calculated 27.4 04/03/2019 [facility] Systolic (mm Hg) 95 03/10/2019 [facility] Diastolic (mm Hg) 53 03/10/2019 [facility] Heart Rate 68 03/10/2019 [facility] Temperature Oral (F) 98.3 F 03/10/2019 [facility] Heart Rate 67 03/10/2019 [facility] Temperature Oral (F) 98.5 F 03/10/2019 [facility] Systolic (mm Hg) 102 03/10/2019 [facility] Diastolic (mm Hg) 59 03/10/2019 [facility] Heart Rate 72 03/10/2019 [facility] Temperature Oral (F) 99.2 F 03/10/2019 [facility] Systolic (mm Hg) 120 03/10/2019 [facility] Diastolic (mm Hg) 61 03/10/2019 [facility] Respitory Rate 18 03/09/2019 [facility] Respitory Rate 18 03/09/2019 [facility] Respitory Rate 18 03/09/2019 [facility] BMI Calculated 23.95 03/01/2019 [facility] Weight 55.636 03/01/2019 [facility] Height 152.4 cm 03/01/2019 [facility] Weight 56.818 02/28/2019 [facility] Respitory Rate 18 02/12/2019 [facility] Heart Rate 68 02/12/2019 [facility] Temperature Oral (F) 97.7 F 02/12/2019 [facility] Systolic (mm Hg) 140 02/12/2019 [facility] Diastolic (mm Hg) 75 02/12/2019 [facility] Height 152.4 cm 02/12/2019 [facility] BMI Calculated 24.66 02/12/2019 [facility] Weight 57.273 02/12/2019 [facility] Respitory Rate 18 02/12/2019 [facility] Temperature Oral (F) 98.1 F 02/12/2019 [facility] Systolic (mm Hg) 127 02/12/2019 [facility] Diastolic (mm Hg) 61 02/12/2019 [facility] Heart Rate 70 02/12/2019 [facility] Systolic (mm Hg) 135 11/06/2018 [facility] Diastolic (mm Hg) 78 11/06/2018 [facility] Respitory Rate 16 11/06/2018 [facility] Heart Rate 61 11/06/2018 [facility] Temperature Oral (F) 97.9 F 11/06/2018 [facility] Respitory Rate 16 11/06/2018 [facility] Systolic (mm Hg) 156 11/06/2018 [facility] Diastolic (mm Hg) 71 11/06/2018 [facility] Heart Rate 63 11/06/2018 [facility] Respitory Rate 18 11/06/2018 [facility] Temperature Oral (F) 97.9 F 11/06/2018 [facility] Systolic (mm Hg) 154 11/06/2018 [facility] Diastolic (mm Hg) 75 11/06/2018 [facility] Heart Rate 68 11/06/2018 [facility] Temperature Oral (F) 97.6 F 11/06/2018 [facility] BMI Calculated 19.01 11/02/2018 [facility] Weight 51.818 11/02/2018 [facility] Height 165.1 cm 11/02/2018 [facility] BMI Calculated 25.05 11/01/2018 [facility] Height 152.4 cm 11/01/2018 [facility] Weight 58.182 11/01/2018 [facility] Heart Rate 72 10/02/2018 [facility] Respitory Rate 18 10/02/2018 [facility] Systolic (mm Hg) 140 10/02/2018 [facility] Diastolic (mm Hg) 65 10/02/2018 [facility] Systolic (mm Hg) 140 10/02/2018 [facility] Diastolic (mm Hg) 65 10/02/2018 [facility] Respitory Rate 18 10/02/2018 [facility] Heart Rate 73 10/02/2018 [facility] Temperature Oral (F) 98.5 F 10/02/2018 [facility] Weight 54.091 10/01/2018 [facility] Temperature Oral (F) 98.2 F 10/01/2018 [facility] Systolic (mm Hg) 148 10/01/2018 [facility] Diastolic (mm Hg) 69 10/01/2018 [facility] Heart Rate 73 10/01/2018 [facility] Respitory Rate 18 10/01/2018 [facility] Respitory Rate 16 08/06/2018 [facility] Heart Rate 91 08/06/2018 [facility] Temperature Oral (F) 99.8 F 08/06/2018 [facility] Systolic (mm Hg) 108 08/06/2018 [facility] Diastolic (mm Hg) 70 08/06/2018 [facility] Heart Rate 89 08/06/2018 [facility] Temperature Oral (F) 97.5 F 08/06/2018 [facility] Systolic (mm Hg) 121 08/06/2018 [facility] Diastolic (mm Hg) 73 08/06/2018 [facility] Respitory Rate 16 08/06/2018 [facility] Temperature Oral (F) 97.2 F 08/06/2018 [facility] Resp[facility] Rate 16 08/06/2018 [facility] Heart Rate 84 08/06/2018 [facility] Systolic (mm Hg) 140 08/06/2018 [facility] Diastolic (mm Hg) 73 08/06/2018 [facility] Weight 52.002 07/30/2018 [facility] Height 152.4 cm 07/29/2018 [facility] BMI Calculated 25.05 07/29/2018 [facility] Weight 58.182 07/29/2018 [facility] Height 152.4 cm 07/29/2018 [facility] Heart Rate 79 05/05/2018 [facility] Resp[facility] Rate 18 05/05/2018 [facility] Systolic (mm Hg) 145 05/05/2018 [facility] Diastolic (mm Hg) 67 05/05/2018 [facility] Temperature Oral (F) 98.8 F 05/05/2018 [facility] Respitory Rate 18 05/05/2018 [facility] Resp[facility] Rate 18 05/05/2018 [facility] Heart Rate 79 05/05/2018 [facility] Systolic (mm Hg) 139 05/05/2018 [facility] Diastolic (mm Hg) 69 05/05/2018 [facility] Temperature Oral (F) 99.3 F 05/05/2018 [facility] Temperature Oral (F) 99.1 F 05/05/2018 [facility] Heart Rate 81 05/05/2018 [facility] Systolic (mm Hg) 155 05/05/2018 [facility] Diastolic (mm Hg) 68 05/05/2018 [facility] Weight 58.1 04/29/2018 [facility] BMI Calculated 25.02 04/29/2018 [facility] Height 152.4 cm 04/29/2018 [facility] Weight 59.545 04/28/2018 [facility] Height 152.4 cm 04/28/2018 [facility] BMI Calculated 25.64 04/28/2018 [facility] Systolic (mm Hg) 162 04/01/2018 [facility] Diastolic (mm Hg) 72 04/01/2018 [facility] Temperature Oral (F) 98.2 F 04/01/2018 [facility] Heart Rate 74 04/01/2018 [facility] Respitory Rate 16 04/01/2018 [facility] Systolic (mm Hg) 173 04/01/2018 [facility] Temperature Oral (F) 98.2 F 04/01/2018 [facility] Respitory Rate 16 04/01/2018 [facility] Heart Rate 75 04/01/2018 [facility] Diastolic (mm Hg) 73 04/01/2018 [facility] Respitory Rate 18 04/01/2018 [facility] Systolic (mm Hg) 148 04/01/2018 [facility] Diastolic (mm Hg) 66 04/01/2018 [facility] Temperature Oral (F) 98.7 F 04/01/2018 [facility] Heart Rate 81 04/01/2018 [facility] Weight 57.017 03/25/2018 [facility] Weight 56.818 03/23/2018 [facility] Height 152.4 cm 03/21/2018 [facility] BMI Calculated 24.46 03/21/2018 [facility] Weight 56.818 03/21/2018 [facility] Temperature Oral (F) 98.6 F 03/21/2018 [facility] Heart Rate 67 03/21/2018 [facility] Respitory Rate 18 03/21/2018 [facility] Systolic (mm Hg) 141 03/21/2018 [facility] Diastolic (mm Hg) 52 03/21/2018 [facility] Temperature Oral (F) 99 F 03/21/2018 [facility] Systolic (mm Hg) 132 03/21/2018 [facility] Diastolic (mm Hg) 56 03/21/2018 [facility] Respitory Rate 18 03/21/2018 [facility] Heart Rate 68 03/21/2018 [facility] Temperature Oral (F) 98.1 F 03/21/2018 [facility] Respitory Rate 18 03/21/2018 [facility] Heart Rate 70 03/21/2018 [facility] Systolic (mm Hg) 151 03/21/2018 [facility] Diastolic (mm Hg) 71 03/21/2018 [facility] Weight 61.7 03/21/2018 [facility] BMI Calculated 26.57 03/21/2018 [facility] Height 152.4 cm 03/21/2018 [facility] Height 152.4 cm 03/20/2018 [facility] Weight 68.6 03/10/2018 [facility] Height 152 cm 03/06/2018 [facility] BMI Calculated 24.58 03/04/2018 [facility] Weight 56.8 03/04/2018 [facility] BMI Calculated 25.05 02/28/2018 [facility] Systolic (mm Hg) 134 02/21/2018 [facility] Diastolic (mm Hg) 70 02/21/2018 [facility] Respitory Rate 18 02/21/2018 [facility] Temperature Oral (F) 98.1 F 02/21/2018 [facility] Heart Rate 63 02/21/2018 [facility] Heart Rate 73 02/21/2018 [facility] Systolic (mm Hg) 159 02/21/2018 [facility] Diastolic (mm Hg) 71 02/21/2018 [facility] Respitory Rate 18 02/21/2018 [facility] Temperature Oral (F) 98.2 F 02/21/2018 [facility] Heart Rate 73 02/21/2018 [facility] Temperature Oral (F) 98.4 F 02/21/2018 [facility] Respitory Rate 18 02/21/2018 [facility] Systolic (mm Hg) 162 02/21/2018 [facility] Diastolic (mm Hg) 74 02/21/2018 [facility] Weight 56.932 02/15/2018 [facility] Height 152.4 cm 02/15/2018 [facility] BMI Calculated 24.51 02/15/2018 [facility] Weight 58.182 02/14/2018 [facility] BMI Calculated 25.05 02/14/2018 [facility] Height 152.4 cm 02/14/2018 [facility] Systolic (mm Hg) 131 02/11/2018 [facility] Diastolic (mm Hg) 66 02/11/2018 [facility] Temperature Oral (F) 98.5 F 02/11/2018 [facility] Respitory Rate 18 02/11/2018 [facility] Heart Rate 81 02/11/2018 [facility] Systolic (mm Hg) 155 02/11/2018 [facility] Diastolic (mm Hg) 71 02/11/2018 [facility] Respitory Rate 18 02/11/2018 [facility] Heart Rate 82 02/11/2018 [facility] Temperature Oral (F) 98.7 F 02/11/2018 [facility] Respitory Rate 18 02/11/2018 [facility] Systolic (mm Hg) 132 02/11/2018 [facility] Diastolic (mm Hg) 70 02/11/2018 [facility] Temperature Oral (F) 98.7 F 02/11/2018 [facility] Heart Rate 77 02/11/2018 [facility] Weight 57.045 02/09/2018 [facility] BMI Calculated 22.02 02/08/2018 [facility] Height 162.56 cm 02/08/2018 [facility] Weight 58.182 02/08/2018 [facility] Height 162.56 cm 02/08/2018 [facility] Weight 68.182 02/08/2018 [facility] BMI Calculated 25.8 02/08/2018 [facility] Systolic (mm Hg) 141 01/31/2017 [facility] Diastolic (mm Hg) 69 01/31/2017 [facility] Respitory Rate 9 01/31/2017 [facility] Temperature Oral (F) 98.4 F 01/31/2017 [facility] Systolic (mm Hg) 126 01/31/2017 [facility] Diastolic (mm Hg) 53 01/31/2017 [facility] Respitory Rate 16 01/31/2017 [facility] Respitory Rate 16 01/31/2017 [facility] Systolic (mm Hg) 105 01/31/2017 [facility] Diastolic (mm Hg) 74 01/31/2017 [facility] Temperature Oral (F) 98.3 F 01/31/2017 [facility] Temperature Oral (F) 98.8 F 01/31/2017 [facility] BMI Calculated 23.67 01/25/2017 [facility] Weight 56.818 01/25/2017 [facility] Height 154.94 cm 01/25/2017 [facility] Heart Rate 96 01/25/2017 [facility] Heart Rate 97 01/25/2017 [facility] Weight 50 0 01/24/2017 [facility] BMI Calculated 20.83 01/24/2017 [facility] Height 154.94 cm 01/24/2017 [facility] Heart Rate 92 01/24/2017 [facility] Heart Rate 88 01/18/2017 [facility] Respitory Rate 17 01/18/2017 [facility] Temperature Oral (F) 98.7 F 01/18/2017 [facility] Systolic (mm Hg) 170 01/18/2017 [facility] Diastolic (mm Hg) 71 01/18/2017 [facility] Heart Rate 82 01/18/2017 [facility] Respitory Rate 17 01/18/2017 [facility] Systolic (mm Hg) 156 01/18/2017 [facility] Diastolic (mm Hg) 70 01/18/2017 [facility] Temperature Oral (F) 98.5 F 01/18/2017 [facility] Temperature Oral (F) 98.3 F 01/18/2017 [facility] Heart Rate 89 01/18/2017 [facility] Respitory Rate 18 01/18/2017 [facility] Systolic (mm Hg) 128 01/18/2017 [facility] Diastolic (mm Hg) 71 01/18/2017 [facility] BMI Calculated 21.77 01/15/2017 [facility] Height 154.94 cm 01/15/2017 [facility] Weight 52.273 01/15/2017 [facility] Systolic (mm Hg) 124 02/20/2016 [facility] Diastolic (mm Hg) 64 02/20/2016 [facility] Respitory Rate 18 02/20/2016 [facility] Heart Rate 75 02/20/2016 [facility] Temperature Oral (F) 98.1 F 02/20/2016 [facility] Respitory Rate 18 02/20/2016 [facility] Systolic (mm Hg) 154 02/20/2016 [facility] Diastolic (mm Hg) 78 02/20/2016 [facility] Heart Rate 78 02/20/2016 [facility] Temperature Oral (F) 98.4 F 02/20/2016 [facility] Temperature Oral (F) 98.6 F 02/20/2016 [facility] Respitory Rate 18 02/20/2016 [facility] Systolic (mm Hg) 103 02/20/2016 [facility] Diastolic (mm Hg) 61 02/20/2016 [facility] Heart Rate 88 02/20/2016 [facility] Height 152.4 cm 02/18/2016 [facility] BMI Calculated 19.96 02/18/2016 [facility] Weight 46.364 02/18/2016 [facility] BMI Calculated 22.51 02/17/2016 [facility] Weight 52.273 02/17/2016 [facility] Height 152.4 cm 02/17/2016 [facility] Systolic (mm Hg) 154 07/19/2014 [facility] Respitory Rate 18 07/19/2014 [facility] Diastolic (mm Hg) 59 07/19/2014 [facility] Heart Rate 88 07/19/2014 [facility] Temperature Oral (F) 98.4 F 07/19/2014 [facility] Respitory Rate 18 07/19/2014 [facility] Systolic (mm Hg) 147 07/19/2014 [facility] Heart Rate 82 07/19/2014 [facility] Diastolic (mm Hg) 63 07/19/2014 [facility] Systolic (mm Hg) 163 07/19/2014 [facility] Heart Rate 79 07/19/2014 [facility] Respitory Rate 18 07/19/2014 [facility] Diastolic (mm Hg) 66 07/19/2014 [facility] Weight 52.273 07/19/2014 [facility] BMI Calculated 22.51 07/19/2014 [facility] Height 152.4 cm 07/19/2014 [facility] Temperature Oral (F) 98.3 F 07/19/2014 [facility] Encounters Location Location Details Encounter Type Encounter Number Reason For Visit Attending Provider ADM Date DC Date Status Source [facility] Outpatient [id number] CARDIAC CIR RHOSIS MARIE GARCIA 11/22/2013 Active [facility] [id number] Myron Novoadtare 07/19/2014 07/19/2014 [facility] Inpatient [id number] Kyra Webbon 02/17/2016 02/20/2016 [facility] Inpatient [id number] Rome Talbert 01/15/2017 01/18/2017 [facility] Inpatient [id number] Guillermo Bullock 01/24/2017 01/31/2017 [facility] Inpatient [id number] Taso Mougouris 02/08/2018 02/11/2018 [facility] Inpatient [id number] Chucho Carreon 02/14/2018 02/21/2018 [facility] Inpatient [id number] [facility] 02/28/2018 03/21/2018 [facility] Inpatient Rehab [id number] Sammy Ewing Jr 03/21/2018 04/01/2018 [facility] OP Therapy Patients [id number] Sammy Ewing Jr 04/04/2018 05/04/2018 [facility] Outpatient [id number] Gabriele Chaney 04/12/2018 04/13/2018 [facility] Inpatient [id number] Angel Pendleton Jr 04/28/2018 05/05/2018 [facility] Inpatient [id number] Angel Pendleton Jr 07/29/2018 08/07/2018 [facility] [place] [facility] [id number] 02 Darren Castro 08/02/2018 08/02/2018 [facility] Emergency [id number] Cat Andrade 10/01/2018 10/02/2018 [facility] Inpatient [id number] Taso Mougouris 11/01/2018 11/06/2018 [facility] Emergency [id number] Az Flores 02/12/2019 02/12/2019 [facility] Inpatient [id number] Kenzie Braedenohuziel 02/28/2019 03/10/2019 [facility] Observation [id number] Juancho Robe 04/03/2019 04/04/2019 [facility] Outpatient [id number] Galindo Paolarandall 06/26/2019 06/27/2019 [facility] Emergency [id number] Jose M Shepherd 07/13/2019 07/14/2019 [facility] Emergency [id number] Brad Barakat 09/03/2019 09/03/2019 [facility] Emergency [id number] Carlos Parks 10/27/2019 10/27/2019 [facility] Inpatient [id number] Jhonathan Guillermo 11/21/2019 11/27/2019 [facility] Emergency [id number] Luis Eduardo Negro 12/05/2019 12/05/2019 [facility] Emergency [id number] Az Sandra 12/11/2019 12/12/2019 [facility] Emergency [id number] Brianne Castro 12/30/2019 12/30/2019 [facility] [place] [facility] [id number] Darren Castro 01/06/2020 01/07/2020 [facility] Outpatient [id number] Derrick Bullock 03/02/2020 03/03/2020 [facility] Observation [id number] Michelle Ramirezeh 05/23/2020 05/23/2020 [facility] Inpatient [id number] Afshan Montielaga 05/31/2020 06/07/2020 [facility] Procedures Procedure Code Date Perfomer Comments Source Abdominal hysterectomy [id number] [facility], [facility] She[facility] CABG x 1 - Coronary artery bypass graft x 1 [id number] [facility], [facility] Sheikh ,[facility] Cholecystectomy<sup>1</sup> 38 [id number] [facility], [facility] Nasha ,[facility] Cholecystotomy [id number] [facility] [place] Eye care [id number] [facility] Assessment and Plan Assessment and Plan Date Source Extracted from:Title: Progress Note Author: Rebeka Gutierrez MD Date: 06/07/20 1.Altered mental status(R41.82) 2.ESRD on dialysis(N18.6) 3.HTN (hypertension)(I10) 4.Chronic low back pain(M54.5) 5.Closed L1 vertebral fracture(S32.019A) 6.Alzheimer disease(G30.9) 7.CKD (chronic kidney disease) stage 4, GFR 15-29 ml/min(N18.4) 8.Coronary artery disease(I25.10) ESRD Anemia Hep C DM HTN doing ok Patient is on maintenance HD on MWF schedule off epo as Hb >10 continue current meds cont hd and uf as tolerated Extracted from:Title: Clinical Document Author: Gianluca Franklin MD Date: 06/01/20 REASON FOR CONSULTATION : LBP and AMS History of Present Illness 70 y/o female with past medical history of Alzheimer's, ESRD on HD MWF, CAD s/p CABG, DM, hepatitis C, HTN, and prior CVA was brought in by EMS for altered mental status. Per EMS, patient had her "first TIA" on 05/23/20 and was acting confused at that time as well. Patient was admitted for possible CVA and a brain MRI was ordered. The patient's brain MRI was negative for acute findings and was believed to have metabolic encephalopathy as a result of too much gabapentin. Patient currently appears confused and is unable to state why she was brought into the ED. Patient history is limited secondary to clinical condition. PAST MEDICAL HISTORY: 1. CKD. 2. Coronary artery disease. 3. Diabetes. 4. Hepatitis C. 5. Hypertension. 6. Nephropathy. PAST SURGICAL HISTORY: 1. Abdominal hysterectomy. 2. One vessel coronary artery bypass. 3. Cholecystectomy. REVIEW OF SYSTEMS: As above, otherwise cannot be obtained. SOCIAL HISTORY: Denies smoking, alcohol or drug use. FAMILY HISTORY: Noncontributory. ALLERGIES: No known drug allergies. MEDICATIONS: At present time home medications, Protonix, amlodipine, atorvastatin, and propranolol. PHYSICAL EXAMINATION: VITAL SIGNS: Afebrile, T-max of 99, blood pressure 122/55, pulse 64, respiration 18. HEENT: Supple, no jugular venous distention. No bruit noted. LUNGS: Clear to auscultation bilaterally. CVS: S1, S2 present, no murmur, no gallop noted. ABDOMEN: Soft, nontender. Positive bowel sounds. NEUROLOGICAL: Mental status: Alert, awake, oriented x 1, speech limited, follows 1 to 2-step commands. No apraxia noted. Cranial nerves: Pupils 3 to 2 mm, reacting to light. Extraocular movements are intact. No nystagmus. No diplopia noted. No facial asymmetry noted. Tongue and uvula midline. Motor exam: Moving all 4 extremities. Sensory examination, unreliable. Coordination: Has mild asterixis on [id number]. Deep tendon reflexes trace. CT OF HEAD FINDINGS: Brain: The study is degraded by patient motion despite repeat scanning sequences. There is moderate central/cortical atrophy present. There are no extra-axial fluid collections. There is a chronic lacunar infarct in the genu of the right internal capsule. There is no acute cortical infarct, parenchymal hemorrhage or intra axial mass. Sellae and para sellae structures are normal for age. There is no tonsillar ectopia. Ventricles: There is ventriculomegaly. Bones/joints: Unremarkable. No acute fracture. Sinuses: There is mucosal inflammatory changes/mucous retention cyst in the left maxillary sinus with thickening of the wall denoting chronic sinusitis. Mastoid air cells: Visualized middle ear cavity, antrum and mastoid air cells are normally aerated. Soft tissues: Unremarkable. IMPRESSION: There is no acute cortical infarct, hemorrhage or intra axial mass. There is moderate central/cortical atrophy with associated ventriculomegaly. There is a chronic lacunar infarct in the genu of the right internal capsule. There are no extra-axial fluid collections. Chronic mucosal inflammatory changes are demonstrated left maxillary sinus. [facility] A/G Ratio: 0.7 (05/31/20) AGAP: 10.9 mEq/L (06/01/20) Albumin Lvl: 3.5 g/dL (05/31/20) Alk Phos: 136 unit/L (05/31/20) ALT: 25 unit/L (05/31/20) Ammonia: 21 uMol/L (05/31/20) AST: 40 unit/L High (05/31/20) B/C Ratio: 6 (05/31/20) Basophils: 0.5 % (06/01/20) Bili Total: 0.7 mg/dL (05/31/20) BUN: 13 mg/dL (06/01/20) Calcium Lvl: 9 mg/dL (06/01/20) CHD Risk: 2.53 Low (05/24/20) Chloride Lvl: 102 mEq/L (06/01/20) Chol: 86 mg/dL (05/24/20) CO2: 31 mEq/L (06/01/20) Coronavirus (COVID-19) KATLYN: Not Detected (05/23/20) Creatinine Lvl: 3.2 mg/dL High (06/01/20) eGFR: 14 mL/min/1.73m2 (06/01/20) Eosinophils: 6.8 % High (06/01/20) Eosinophils #: 0.4 K/CMM (06/01/20) Ethanol Lvl: <3 (05/31/20) Etoh (%): <.003 (05/31/20) Globulin: 4.9 g/dL High (05/31/20) Gluc POC Comment 1: Notified RN/MD (06/01/20) Glucose Lvl: 67 mg/dL Low (06/01/20) Glucose POC: 61 mg/dL Low (06/01/20) Hct: 34.2 % Low (06/01/20) HDL: 34 mg/dL Low (05/24/20) Hep Bs Ag: Non React (05/31/20) Hgb: 11.5 g/dL Low (06/01/20) Hgb A1C: <3.5 (05/31/20) INR: 1.11 (05/31/20) LDL (Calculated): 26 mg/dL (05/24/20) Lymphocytes: 20.1 % (06/01/20) Lymphocytes #: 1.2 K/CMM (06/01/20) Macrocyte: 1 + Abnormal (05/24/20) MCH: 32.6 pg High (06/01/20) MCHC: 33.5 g/dL (06/01/20) MCV: 97.2 fL (06/01/20) Monocytes: 11.3 % (06/01/20) Monocytes #: 0.7 K/CMM (06/01/20) MPV: 7.7 fL (06/01/20) Neutrophils #: 3.8 K/CMM (06/01/20) Platelet: 144 K/CMM (06/01/20) POC Performing Location: See Note (06/01/20) Potassium Lvl: 3.9 mEq/L (06/01/20) PT: 14.4 seconds (05/31/20) PTT: 31.2 seconds (05/31/20) RBC: 3.52 M/CMM Low (06/01/20) RDW: 14.7 % High (06/01/20) Segs: 61.3 % (06/01/20) Sodium Lvl: 140 mEq/L (06/01/20) Total Protein: 8.4 g/dL (05/31/20) Tri mg/dL (05/24/20) Troponin-I: <0.02 (05/31/20) U Amph Scr: NEG (05/31/20) U Fariha Scr: NEG (05/31/20) U Benzodiaz Scr: NEG (05/31/20) U Cannab Scr: NEG (05/31/20) U Cocaine Scr: NEG (05/31/20) U Opiate Scr: NEG (05/31/20) U Phencyclidine Scr: NEG (05/31/20) UA Bacteria: cOCC (05/23/20) UA Bili: cNegative (05/31/20) UA Blood: cNegative (05/31/20) UA Color: cYellow (05/31/20) UA Glucose: cNegative (05/31/20) UA Ketones: cNegative (05/31/20) UA Leuk Est: cNegative (05/31/20) UA Mucus: cFew (05/23/20) UA Nitrite: cNegative (05/31/20) UA pH: 8.5 High (05/31/20) UA Protein: c100 Abnormal (05/31/20) UA RBC: 6 /HPF High (05/23/20) UA Spec Grav: 1.015 (05/31/20) UA Sq Epi: None Seen (05/31/20) UA Turbidity: cClear (05/31/20) UA Urobilinogen: 0.2 EU/dL (05/31/20) UA WBC: 3 /HPF (05/23/20) UDS Note: See Note (05/31/20) VLDL: 26 (05/24/20) WBC: 6.2 K/CMM (06/01/20) ASSESSMENT Metabolic encephalopathy ESRD. Hypertension. Hepatitis C. Coronary artery disease. CVA. DM PLAN MRI of lumbosacral radiculopathy Avoid sedation Correct underlying medical problem Correct underlying electrolyte derangement Extracted from:Title: History and Physical Author: Afshan Marcelo MD Date: 05/31/20 [id number] history ofhyperten abdoul, diabetes, CAD status post CABG,ESRD Sunday, hepatitis C, CVA 1. Alteredmental status.Could be secondary to polypharmacy vs. stroke. vs.dementia.Unsure what medication she has been taking while at home. Her UA and drug screen is negative.At this time I will hold most of her medications but will continue herstatinas well as her clopidogrel. We will try to get an accurate medication list from the family. I will order another MRI to rule out acute stroke. Will consultneurology for any further recommendations. PT, OT, speech is pending. 2. Hypertension. Her blood pressures cur rently well controlled. Will order. Hydralazine continue to monitor. 3. Diabetes.Will order hemoglobin A1C. I will also ordersliding scale Brit will continue to monitor. 4. CAD status post CABG. Will continue c lopidogrel, statin 5. ESRD on hemodialysisSunday. We will consult nephrologyfor scheduled hemodialysis. 6. History of CVA. Continue clopidogrel, statin 7. History of hepatitis C. SCD, clopidogrel Pending Neurology consult 06/07/2020 [facility] Extracted from:Title: Clinical Document Author: Alexi Wisdom MD Date: 11/26/19 Progress Note Nephrology SUBJECTIVE doing better ASSESSMENT 1-- ESRD HEMODIALYSIS MWF, HEMODIALYSIS PROCEDURE: seen on hemodialysis, see orders, tolerating current prescription. 2- anemia of chronic disease hg stable 3-E. coli UTI continue on antibiotics 4- debilitated 5- hx of cva 6- cirrhosis untreated hcv, nausea and v omiting 7. abdominal pain sary esophagitis PLAN and TREATMENT dialysis today GI following ok to go home Physical Exam alert, oriented HEENT : peerla NECK: no jvd, no bruits, HEART : RRR no s3 no S4, no murmur, no rub LUNGS: no wheezes no rales, no rhonci ABDOMEN: NTND no organomegaly no hepatomegaly positive bowel sounds EXT: no clubbing no cyanosis no edema NEURO :no focalities, no sensory deficits, no motor deficits SKIN: no rash, no bruises R.O.S General no change in weight no change in appetite ENT no wheezing no congestion no coughing Vision no changes in vision no eye redness Pulmonary no shortness of breath no coughing no wheezing Cardiac no chest pain no arrhythmia no orthopnea no dyspnea upon exertion GI no nausea no vomiting no constipation no diarrhea no blood in the stool no dysuria no hematuria Neurological no sensory loss no motor loss no weakness Skin no rash no bruises Psych no depression and schizoaffective disorder no anxiety OBJECTIVE Vitals Tmp(F) Tmp(C) Ttype BP MAP Pulse RR SpO2 FIO2 ETCO2 11/26 17:52 ---- ---- ---- 1 --- 72 -- 99 --- --- 11/26 15:24 ---- ---- ---- 1 4065 --- 70 -- --- --- --- 11/26 15:22 98.0 36.67 oral 141/65 86 73 13 --- --- --- 11/26 15:00 ---- ---- ---- 1 66 69 11 --- --- --- 11/26 14:52 ---- ---- ---- 9 59 74 13 --- --- --- 24 Hr Tmax: 98.7F (37.06c) at 11/26 00:0 5 Vital Signs are the last 5 in the past 48 hours. 24 Hr Tmin: 97.9F (36.61c) at 11/26 05: 22 Weights are the last 5 in 60 days, plus initial. Date Wt(kg) Wt(lb) Ht(cm) Ht(in) Method BMI BSA 11/21 (initial) 59.09 130.00 Measured 23.8 1.61 11/21 157.48 62.00 Stated 24 Hr Point of Care Glucoses 11/26 08 Glucose POC 138 H 11/26 228 Glucose POC 142 H 11/25 2031 Glucose POC 154 H Most Recent Scores: 11/26/19 Pain Intensity NRS (0-10) 0 11/26/19 Jeffrey Coma Score 15 11/26/19 [facility] Fall Score 9 11/26/19 Petros Score 15 (all previously charted lines have been discontinued) Surgical Procedures: 11/25/19 11:52 EGD / MAC [id number] Primary Surgeon: Ranjeet Porter MD (Service: END) Input/Output Record In Out Bal 11/26 24hr Tot 10 1050 - 1040 11/25 24hr Tot 230 50 180 Scheduled Meds (9):aspirin (aspirin 81 mg tablet, enteric coated), atorvastatin, cefTRIAXone + sterile water 10 mL (Rocephin + sterile water 10 mL), clopidogrel, fluconazole (Diflucan), gabapentin (gabapentin 100 mg oral capsule), heparin (heparin 5000 units/mL injectable solution), pantoprazole (Protonix), propranolol Unscheduled Meds (1):iohexol (Omnipaque 300 injectable solution) PRN Meds (14):Dextrose 50% in Water IV (Dextrose 50% Syringe (D50W)), Dextrose 50% in Water IV (Dextrose 50% Syringe (D50W)), acetaminophen, glucagon, insulin lispro, insulin lispro, insulin lispro, insulin lispro, insulin lispro, insulin lispro, insulin lispro, insulin lispro, insulin lispro, ondansetron One Time Meds: None Continuous Infusions: None Labs (Last four charted values) WBC 4.0 (NOV 25) 5.6 (NOV 22) 7.6 (NOV 21) Hgb 12.6 (NOV 25) 12.1 (NOV 22) L 11.8 (NOV 21) Hct 37.6 (NOV 25) 36.3 (NOV 22) L 35.8 (NOV 21) Plt L 87 (NOV 25) L 112 (NOV 22) L 123 (NOV 21) Na 136 (NOV 25) 136 (NOV 22) 137 (NOV 21) K 4.0 (NOV 25) 3.7 (NOV 22) 4.5 (NOV 21) CO2 29 (NOV 25) 30 (NOV 22) 32 (NOV 21) Cl 101 (NOV 25) 99 (NOV 22) 99 (NOV 21) Cr H 4.76 (NOV 25) H 5.15 (NOV 22) H 6.19 (NOV 21) BUN 17 (NOV 25) 18 (NOV 22) H 26 (NOV 21) Glucose Random H 155 (NOV 25) H 188 (NOV 22) H 117 (NOV 21) Ca 8.7 (NOV 25) 9.0 (NOV 22) 9.1 (NOV 21) PT 13.2 (NOV 25) 13.5 (NOV 21) INR 1.00 (NOV 25) 1.03 (NOV 21) PTT 33.5 (NOV 25) 27.5 (NOV 21) Troponin <0.02 (NOV 21) Total CK 89 (NOV 21) Extracted from:Title: GI Consult * Author: Ranjeet Porter MD Date: 11/23/19 Impression and Plan IMPRESSION: 1. liver cirrhosis 2/2 to HCV, MELD 20, Child's A 2. HCV, untreated 3. abdominal pain 4. nausea/vomiting 5. mild intrahepatic dilation on imaging , likely post-surgical changes given prior h/o open cholecystectomy 6. transaminitis 7. metabolic encephalopathy 8. sepsis 2/2 to UTI PLAN: 1. analgesia prn 2. antiemetics prn 3. PPI BID daily 4. MRCP to r/o choledocholithiasis 5. hep C genotype, viral load, outpatien t management of Hep C 6. AFP 7. consider EGD at later date, possibly as outpatient when off Plavix for 5 days 8. monitor liver tests 9. abx per ID GI Attending I have examined the patient with the Physician Potato Chip Sorter and confirmed the essential components of history, physical examination, diagnosis and treatment plan. I agree with the patient's care as documented by the Physician Potato Chip Sorter. Extracted from:Title: History and Physical Author: Sylwia Larose MD Date: 11/21/19 69-year-old femalewho has significant pa st medical history of ESRD on MWF HD , CAD, diabetes mellitus, hepatitis C, hypertensionwith questionable Alzheimer's diseasewas brought in byher brother. As per the history [facility] abdominal discomfortand was diagnosed with urinary tract infection and was sent back home with p.o. Keflex however the patient did not receive any p.o. Keflexand [place] the patient was not respondingand was extremely confused that prompted them to bring her to the emergency room. In the emergency room patient was noted to have positive urinary tract infectionwith a normal WBC count. During my encounter patient was able to give her date of and also address. Predominant history was obtained from brother [id number]. Patient did not have fevers at home but the first temperature was recorded here in the emergency room Assessment- -Acutecystitis with urinary tract infect ion -Sepsis secondary to acute cystitis -Metabolic encephalopathy likely related to sepsis related to acute cystitis and morphine given in the emergency room in setting of esrd -Diabetes mellitus type 2 -Coronary artery disease -End-stage renal disease on Sundayhepatitis C -Hypertension -Questionable Alzheimer's disease -Chronic rectal prolapse with a minor sk in erosionsand recent traumatic bleeding which resolved Plan - -patient was given IV antibiotics in the emergency room will continueRocephin -Patient mentation continues to improve We will continue IV fluids -Insulin sliding scale and Accu-Cheks -Nephrology has been consultedfor missed dialysis session todayon Sunday hemodialysis -Resume home medications per the med rec onciliation is complete - f/u labs and H&H - f.u on cultures Heparin SQ Q12H Inpatient with IMCU level of care Addendum by Sylwia Larose MD on 11/22/2019 02:05 [employer] chronic thrombocytopenia sec to hepatitis C 11/27/2019 [facility] Extracted from:Title: Clinical Document Author: Alexi Wisdom MD Date: 04/03/19 Nephrology Consult Alexi Wisdom M.D. Date HISTORY OF PRESENT ILLNNESS 69 years old with ESRD sent from her sonia lysis unit with mental status changes PAST MEDICAL HISTORY: 1. ESRD. 2. Hypertension. 3. Hepatitis C. 4. Coronary artery disease. 5. CVA. ALLERGIES: No known drug allergies. PAST SURGICAL HISTORY: 1. Cholecystectomy. 2. Permanent catheter placement. 3. CABG x 1. 4. eye care SOCIAL HISTORY: No smoking. No alcohol. No drugs. REVIEW OF SYMPTOMS General no change in weight no change in appetite ENT no wheezing no congestion no coughing Vision no changes in vision no eye redness Pulmonary no shortness of breath no coughing no wheezing Cardiac no chest pain no arrhythmia no orthopnea no dyspnea upon exertion GI no nausea no vomiting no constipation no diarrhea no blood in the stool no dysuria no hematuria Neurological no sensory loss no motor loss positive weakness, confused , but better than Skin no rash no bruises Psych no depression and schizoaffective disorder no anxiety Physical Exam alert, oriented to persons HEENT : peerla NECK: no jvd, no bruits, HEART : RRR no s3 no S4, no murmur, no rub LUNGS: no wheezes no rales, no rhonci ABDOMEN: NTND no organomegaly no hepatomegaly positive bowel sounds EXT: no clubbing no cyanosis no edema NEURO:no focalities, no sensory defecits, positive motor defecits ( weakness) SKIN: no rash, no bruises Vitals Tmp(F) Pulse BP RR SpO2 FIO2 04/03 18:34 97.6 68 112/82 1 2 96 --- 04/03 17:30 ---- 79 139/57 1 8 95 --- 04/03 17:15 97.8 79 134/80 1 8 86 --- 04/03 16:30 ---- 81 129/64 1 7 93 --- 04/03 15:30 ---- 79 177/71 1 9 93 --- 24 Hr Tmax: 98.0F (36.67c) at 04/03 14:4 4 Vital Signs are the last 5 in the past 48 hours. Medication List Active Medications Ordered acetaminophen: 650 mg, 2 tab, PO, Q4H, PRN: Pain 1-3/Temp > 100.4 F. Dextrose 50% in Water IV: 12.5 gm, 25 mL, IVP, PRN, PRN: Blood Glucose Results. Dextrose 50% in Water IV: 25 gm, 50 mL, IVP, PRN, PRN: Blood Glucose Results. docusate: 100 mg, 1 cap, PO, BID. gentamicin + Sodium Chloride 0.9% IV 100 mL: 100 mg, 2.5 mL, 205 ml/hr, IV, ONCE. glucagon: 1 mg, IM, PRN, PRN: Blood Glucose Results. ondansetron: 4 mg, 2 mL, IVP, Q8H, PRN: Nausea and Vomiting. sodium chloride: 10 mL, IVP, PRN, PRN: Line Flush. Prescribed amLODIPine: 10 mg, 1 tab, PO, Daily, 30 tab, 0 Refill(s). aspirin: 81 mg, 1 tab, PO, Daily, for 30 day, 30 tab, 0 Refill(s). atorvastatin: 40 mg, 1 tab, PO, Bedtime, for 30 day, 30 tab, 0 Refill(s). escitalopram: 10 mg, 1 tab, PO, Daily, for 30 day, 30 tab, 0 Refill(s). Documented acetaminophen-codeine: 1 tab, PO, Q6H, PRN: Pain Score 6-10, 0 Refill(s). famotidine: 20 mg, 1 tab, PO, Bedtime, 0 Refill(s). gabapentin: 100 mg, 1 cap, PO, Bedtime, 0 Refill(s). insulin glargine: 20 unit, SUB-Q, Bedtime, 10 mL, 3 Refill(s). metoprolol: See Instructions, 1/2 tab po BID with food, 0 Refill(s). promethazine: 25 mg, 1 tab, PO, BID, 0 Refill(s). Medications Inactivated in the Last 72 Hours aspirin: 324 mg, CHEW, ONCE. aspirin: 324 mg, 4 tab, PYXIS, ONCE. Sodium Chloride 0.9% IV: 250 mL, PYXIS, ONCE. vancomycin: 1 gm, PYXIS, ONCE. vancomycin + Sodium Chloride 0.9% IV 250 mL: 1,000 mg, 250 ml/hr, IVPB, ONCE. Labs (Last four charted values) WBC H 12.6 (APR 03) Hgb 12.4 (APR 03) Hct 38.9 (APR 03) Plt L 106 (APR 03) Na 137 (APR 03) K H 5.4 (APR 03) CO2 27 (APR 03) Cl 99 (APR 03) Cr H 6.76 (APR 03) BUN H 39 (APR 03) Glucose Random H 105 (APR 03) Ca 8.7 (APR 03) PT 13.7 (APR 03) INR 1.07 (APR 03) PTT 34.2 (APR 03) Troponin <0.02 (APR 03) Total CK 69 (APR 03) ASSESSMENT AND PLAN 1- ESRD HEMODIALYSIS PROCEDURE: seen on hemodialysis, see orders, tolerating current prescription. 2- anemia of chronic disease stable 3- confused ? infection, cxr and ct scan negative, cultures pending abx given reevaluate in am Extracted from:Title: General Admission H&P * Author: Juancoh Nagel MD Date: 04/03/19 Impression and Plan Impression: Acute metabolic encephalopathy, unclear etiology End-stage renal disease on hemodialysis Anemia of chronic kidney disease Hypertension Diabetes mellitus Coronary artery disease status post CABG Recent staph bacteremia Plan: We will admit to medicine Activity as tolerated Fall precautions We will reconcile home medication available Closely monitor mental status Patient is undergoing hemodialysis today [facility] neph[facility] already consulted by ER. We will get infectious disease evaluation. Patient was given vancomycin IV x1, gentamicin IV x1 along with hemodialysis. Blood cultures were sent from the ER. Prognosis guarded CODE STATUS full. 04/04/2019 [facility] Extracted from:Title: Cardiology Progres s Note Author: Derrick Bullock MD Date: 03/10/19 Impression and Plan Staph bacteremia CAD s/p 4v CABG (STARK-LAD, SVG-D, SVG-OM, SVG-PDA) on 03/05/18 AV fistula infection Cellulitis of the upper extremity HFpEF ESRD on HD HTN HLD IDDM CVA Chronic anemia HCV cirrhosis #Staph bacteremia -As per ID and primary team. -TTE and SERA on 03/06 with no evidence of endocarditis #CAD s/p 4v CABG -Has intermittent chest pain. Appears a typical -Monitor for now. TTE with preserved EF -Optimize medically. Continue cardioprot ective meds #HTN -Stable #HLD -On statin Extracted from:Title: Cardiology Consultation Author: Derrick Bullock MD Date: 03/04/19 Impression and Plan Staph bacteremia CAD s/p 4v CABG (STARK-LAD, SVG-D, SVG-OM, SVG-PDA) on 03/05/18 AV fistula infection Cellulitis of the upper extremity HFpEF ESRD on HD HTN HLD IDDM CVA Chronic anemia HCV cirrhosis #Staph bacteremia -As per ID and primary team. -Possibly d/t AV fistula with work up on going, however, endocarditis cannot be excluded - Will check a TTE and if needed, then c an proceed with SERA #CAD s/p 4v CABG -Has intermittent chest pain. Appears a typical -Monitor for now. Check TTE -Optimize medically. Add ASA. Continue cardioprotective meds #HTN -Stable #HLD -On statin Extracted from:Title: History and Physical Author: David Vera MD Date: 03/01/19 Cellulitis(L03.90) Ordered: Admit/Condition, 02/28/19 18:46:00 CDT, Status: Inpatient, Telemetry Capable Location, Expected LOS: 3 or Greater Midnights, Jhonathan Guillermo DO, Admit MD Review/Approve Yes, Isolation: Contact, Droplet, Cellulitis | Hyperkalemia | ESRD on hemodialysis ESRD on hemodialysis(N18.6) Ordered: Admit/Condition, 02/28/19 18:46:00 CDT, Status: Inpatient, Telemetry Capable Location, Expected LOS: 3 or Greater Midnights, Jhonathan Guillermo DO, Admit MD Review/Approve Yes, Isolation: Contact, Droplet, Cellulitis | Hyperkalemia | ESRD on hemodialysis Hyperkalemia(E87.5) Ordered: Admit/Condition, 02/28/19 18:46:00 CDT, Status: Inpatient, Telemetry Capable Location, Expected LOS: 3 or Greater Midnights, Jhonathan Guillermo DO, Admit MD Review/Approve Yes, Isolation: Contact, Droplet, Cellulitis | Hyperkalemia | ESRD on hemodialysis >S/p HD upon admission earlier in the night, repeat labs show correction of hyperkalemia and improved mental status. Nephrology will continue to manage renal replacement tx. vancomycin given on HD. per protocol 2 midnights inpt date/time: 02/28/2019 19:31 03/10/2019 [facility] Extracted from:Title: Clinical Document Author: Alexi Wisdom MD Date: 11/06/18 Progress Note Nephrology SUBJECTIVE doing better Physical Exam alert, oriented HEENT : peerla NECK: no jvd, no bruits, HEART : RRR no s3 no S4, no murmur, no rub LUNGS: no wheezes no rales, no rhonci ABDOMEN: NTND no organomegaly no hepatomegaly positive bowel sounds EXT: no clubbing no cyanosis no edema NEURO:no focalities, no sensory defecits, no motor defecits SKIN: no rash, no bruises ASSESSMENT 1- ESRD HEMODIALYSIS per schedule TTS 2- pneumonia on cxr, on abx 3- anemia of chronic disease stable 4- HTN better 5- s/p fall xrays neg so far PLAN and TREATMENT improving doing well dialysis in her unit in am OBJECTIVE Vitals Tmp(F) Tmp(C) Ttype BP MAP Pulse RR SpO2 FIO2 ETCO2 11/06 11:18 97.9 36.61 oral 135/78 97 61 16 96 --- --- 11/06 09:42 ---- ---- ---- - ---- --- --- 16 99 --- --- 11/06 08:21 97.9 36.61 oral 156/71 99 63 18 95 --- --- 11/06 04:15 97.6 36.44 oral 154/75 --- 68 16 97 --- --- 11/06 00:05 97.4 36.33 oral 144/74 --- 69 16 97 --- --- 24 Hr Tmax: 97.9F (36.61c) at 11/06 11:1 8 Vital Signs are the last 5 in the past 48 hours. 24 Hr Tmin: 97.4F (36.33c) at 11/06 00: 05 Weights are the last 5 in 60 days, plus initial. Date Wt(kg) Wt(lb) Ht(cm) Ht(in) Method BMI BSA 11/01 (initial) 58.18 128.00 Measured 25.1 1.57 11/01 152.40 60.00 Stated 24 Hr Point of Care Glucoses 11/06 1139 Glucose POC 250 H 11/06 0659 Glucose POC 138 H 11/06 0338 Glucose POC 122 H Most Recent Scores: 11/06/18 Montalvo Duran Fall Score 15 11/06/18 Pain Intensity NRS (0-10) 0 11/06/18 Jeffrey Coma Score 15 11/06/18 Petros Score 20 Lines, Tubes, and Drains: 11/01/2018 23:47 Central Lines: Subclavi an, right Non-tunneled (most common) 11/01/2018 19:47 Peripheral Lines: Antec ubital Left 20 gauge Over the needle catheter (no surgical procedures documented) Input/Output Record In Out Bal 11/06 24hr Tot 104 0 104 11/05 24hr Tot 119 2500 - 2381 Scheduled Meds: None Unscheduled Meds: None PRN Meds: None One Time Meds: None Continuous Infusions: None Labs (Last four charted values) WBC L 3.4 (NOV 05) 5.1 (NOV 03) 8.3 (NOV 01) Hgb L 9.2 (NOV 05) L 9.7 (NOV 03) L 11.1 (NOV 01) Hct L 27.1 (NOV 05) L 28.9 (NOV 03) L 32.8 (NOV 01) Plt 143 (NOV 05) 140 (NOV 03) 153 (NOV 01) Na 141 (NOV 05) 141 (NOV 03) 136 (NOV 01) K 3.9 (NOV 05) 4.0 (NOV 03) 3.5 (NOV 01) CO2 28 (NOV 05) 29 (NOV 03) 32 (NOV 01) Cl 104 (NOV 05) 104 (NOV 03) 96 (NOV 01) Cr H 3.38 (NOV 05) H 3.51 (NOV 03) H 3.19 (NOV 01) BUN H 41 (NOV 05) H 26 (NOV 03) H 32 (NOV 01) Glucose Random H 277 (NOV 05) H 146 (NOV 03) H 159 (NOV 01) Ca L 7.9 (NOV 05) L 8.4 (NOV 03) 8.8 (NOV 01) Troponin <0.02 (NOV 01) Extracted from:Title: Clinical Document Author: Rebeka Tian MD Date: 11/05/18 [facility] INFECTIOUS DISEASE CONSULTATION NOTE REBEKA TIAN M.D. REQUESTING PHYSICIAN: Dr Ball REASON FOR CONSULTATION: sepsis CHIEF COMPLAINT: ESBL in urine HISTORY OF PRESENT ILLNESS: Patient is a 68-year-old female with past medical history significant for hypertension end-stage renal disease diabetes hepatitis C presented to the ER with complaint of right-sided chest pain status post fall 2 days ago. Patient reports having a mechanical fall where she was climbing up the stairs with her walker she missed her steps and slipped falling down hitting the right side. Patient reports being able to get up and ambulate however started complaining of right-sided chest pain she came in with ER with complaint of cough and pain and some phlegm started on antibiotic therapy for possible pneumonia doing much better. Initial UA showing abnormal urine analysis and positive urine culture for ESBL although she does not have much of symptoms. We have been asked to see for further management of antibiotic therapy. PMH Stroke Myocardial infarct Cholelithiasis Alzheimer disease PSH Cholecystotomy CABG x 1 - Coronary artery bypass graft x 1 Abdominal hysterectomy Cholecystectomy Eye care SH Alcohol Details: Never Tobacco Details: Use: Never smoker. Ready to change: No. Household tobacco concerns: No. Tobacco smoke exposure: None. Did the Patient Smoke Cigarettes Anytime During the Last 365 Days? No. Cessation Counseling Provided? No. Details: Use: Never smoker. Tobacco smoke exposure: None. Did the Patient Smoke Cigarettes Anytime During the Last 365 Days? No. Cessation Counseling Provided? No. Substance Abuse Details: Use: None. FH Mother: Cancer, Other; Type 2 diabetes mellitus Sister: Cancer, Other; Hypertension; Type 2 diabetes mellitus Brother: Type 2 diabetes mellitus ALLERGIES: Allergies (1) Active Reaction NKDA None documented REVIEW OF SYSTEMS: CONSTITUTIONAL: Denies fever, chills, or night sweats. EYES: Denies blurry vision or eye pain. ENT: Denies ear pain, nasal drainage, or sore throat. RESPIRATORY: Denies shortness of breath or cough. CARDIOVASCULAR: Denies chest pain or palpitations. GASTROINTESTINAL: Denied nausea, vomiting, diarrhea, or abdominal pain. GENITOURINARY: Denies dysuria, frequency, or urgency. MUSCULOSKELETAL: No joint pain, muscle aches, or swelling. NEUROLOGIC: Denies any focal weakness or headaches. SKIN: No rashes or lesions. ENDOCRINE: Denies history of polyuria, polydipsia, heat or cold intolerance. HEME/LYMPH: Denies bleeding, bruising, or swollen glands. PSYCH: No depression or anxiety PHYSICAL EXAMINATION: Vitals Tmp(F) Pulse BP RR SpO2 FIO2 11/05 09:15 98.4 --- ----- - - --- --- 11/05 07:40 98.3 68 165/64 1 7 93 --- 11/05 07:13 ---- --- ----- 1 4 100 21% 11/05 03:39 98.1 64 132/65 1 6 94 --- 11/04 22:54 98 68 146/80 -- 91 --- 24 Hr Tmax: 98.4F (36.89c) at 11/05 09:1 5 Vital Signs are the last 5 in the past 48 hours. Awake lying on bed NAD No thrush CTAB RRR S1&S2 BS+ve NT/ND No edema No Rash No focal defecit IVs ok MEDICATIONS: Scheduled Meds (11):aspirin (aspirin 81 mg tablet, enteric coated), atorvastatin, clopidogrel, epoetin kathy (Epogen), escitalopram, furosemide, gabapentin (gabapentin 100 mg oral capsule), heparin (heparin 5000 units/mL injectable solution), meropenem + Sodium Chloride 0.9% IV 100 mL (Merrem + Sodium Chloride 0.9% IV 100 mL), metoprolol (Lopressor), pantoprazole Unscheduled Meds: None PRN Meds (17):Dextrose 50% in Water IV (Dextrose 50% Syringe), Dextrose 50% in Water IV (Dextrose 50% Syringe), acetaminophen-hydrocodone (Jefferson 5/325 oral tablet), albuterol (albuterol 0.083% inhalation solution), glucagon, guaiFENesin, insulin lispro, insulin lispro, insulin lispro, insulin lispro, insulin lispro, insulin lispro, insulin lispro, insulin lispro, insulin lispro, morphine Sulfate (morphine 0.5 mg/mL preservative-free injectable solution), ondansetron One Time Meds: None Continuous Infusions: None LABORATORY: AGAP: 12.9 mEq/L (11/05/18 09:50:00) Chloride Lvl: 104 mEq/L (11/05/18 09:50:00) CO2: 28 mEq/L (11/05/18 09:50:00) Potassium Lvl: 3.9 mEq/L (11/05/18 09:50:00) Sodium Lvl: 141 mEq/L (11/05/18 09:50:00) A/G Ratio: 0.6 Low (11/01/18 19:47:00) Albumin Lvl: 3.1 g/dL Low (11/01/18 19:47:00) Alk Phos: 275 unit/L High (11/01/18 19:47:00) ALT: 26 unit/L (11/01/18:47:00) AST: 41 unit/L High (11/01/18:47:00) B/C Ratio: 10 (11/01/18:47:00) Bili Total: 1 mg/dL (11/01/18:47:00) BUN: 41 mg/dL High (11/05/18 09:50:00) Calcium Lvl: 7.9 mg/dL Low (11/05/18 09:50:00) Creatinine Lvl: 3.38 mg/dL High (11/05/18 09:50:00) eGFR: 14 mL/min/1.73m2 (11/05/18 09:50:00) Globulin: 5.4 g/dL High (11/01/18:47:00) Glucose Lvl: 277 mg/dL High (11/05/18 09:50:00) Total Protein: 8.5 g/dL High (11/01/18:47:00)Hct: 27.1 % Low (11/05/18 09:50:00) Hgb: 9.2 g/dL Low (11/05/18 09:50:00) MCH: 32 pg High (11/05/18 09:50:00) MCHC: 33.8 g/dL (11/05/18 09:50:00) MCV: 94.7 fL (11/05/18 09:50:00) MPV: 8.3 fL (11/05/18 09:50:00) Platelet: 143 K/CMM (11/05/18 09:50:00) RBC: 2.86 M/CMM Low (11/05/18 09:50:00) RDW: 13.1 % (11/05/18 09:50:00) WBC: 3.4 K/CMM Low (11/05/18 09:50:00) RADIOLOGY: reviewed MICRO: Urine ESBL ASSESSMENT/PLAN: 68 year old female with PNA sepsis UTI ESBL in urine Patient is started on meropenem today but does not have much of her urinary symptoms I think most likely it is colonization rather infection can be transitioned to oral antibiotic therapy Vantin 200 mg daily times 5 days for treatment of pneumonia and discharged home okay from our standpoint call if any questions Extracted from:Title: History and Physical Author: Archie Gil MD Date: 11/02/18 Patient is a 68year-old femalewith past medical history of ESRD, hypertension,presents with complaints ofright-sided chest pain status postmechanical fall. Chest x-ray demonstrated aright-sided pneumonia. Bacterial pneumonia(J15.9) Continue ceftriaxone and azithromycin. Follow viral panelresultssputum culture, blood culture. Await lactic acid levels. 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 Chest pain Reproducible, musculoskeletal in nature. Placed on Jefferson. Trend troponins,EKG showing sinus rhythm. Consult cardiology for any changes in troponins. ESRDTTS Consults nephrology for routine hemodialysis Heparin 1-2 midnight 11/06/2018 [facility] Extracted from:Title: Clinical Document Author: Alexi Wisdom MD Date: 08/06/18 Progress Note Nephrology SUBJECTIVE doing better Physical Exam alert, oriented HEENT : peerla NECK: no jvd, no bruits, HEART : RRR no s3 no S4, no murmur, no rub LUNGS: no wheezes no rales, no rhonci ABDOMEN: NTND no organomegaly no hepatomegaly positive bowel sounds EXT: no clubbing no cyanosis no edema NEURO:no focalities, no sensory defecits, no motor defecits SKIN: no rash, no bruises ASSESSMENT 1. End-stage renal disease. HEMODIALYSI S PROCEDURE:seen on hemodialysis, see orders, tolerating current perscription. 2. Orthostatic hypotension, currently o n Florinef. slow improvement 3. Hypokalemia, resolved with p.o. supp lement. 4. Anemia of CKD, on Epogen. 5. Coronary artery disease status post CABG. No acute issues. 6. Hepatitis C, no acute issues. . PLAN and TREATMENT dialysis per schedule no new changes awaiting placement OBJECTIVE Vitals Tmp(F) Tmp(C) Ttype BP MAP Pulse RR SpO2 FIO2 ETCO2 08/06 15:57 99.8 37.67 oral 108/70 --- 91 16 99 --- --- 08/06 12:12 97.5 36.39 oral 121/73 --- 89 16 95 --- --- 08/06 11:52 97.2 36.22 oral ----- --- --- -- --- --- --- 08/06 07:52 97.8 36.56 oral 140/73 --- 84 16 --- --- --- 08/06 07:25 98.5 36.94 oral 142/73 --- 84 18 91 --- --- 24 Hr Tmax: 99.8F (37.67c) at 08/06 15:5 7 Vital Signs are the last 5 in the past 48 hours. 24 Hr Tmin: 97.2F (36.22c) at 08/06 11: 52 Weights are the last 5 in 60 days, plus initial. Date Wt(kg) Wt(lb) Ht(cm) Ht(in) Method BMI BSA 07/30 52.00 114.40 Measur ed 07/29 58.18 128.00 152.40 60.00 Est/Sta 25.1 1.57 07/28 152.40 60.00 07/29 (initial) 58.18 128.00 Estimated 25.1 1.57 07/28 152.40 60.00 Stated 24 Hr Point of Care Glucoses 08/06 1556 Glucose POC 138 H 08/06 1248 Glucose POC 182 H 08/06 0631 Glucose POC 138 H 08/06 0351 Glucose POC 153 H 08/05 2046 Glucose POC 186 H Most Recent Scores: 08/06/18 Pain Intensity NRS (0-10) 0 08/06/18 [place] Coma Score 15 08/06/18 Montalvo Duran Fall Score 13 08/06/18 Petros Score 19 Lines, Tubes, and Drains: 08/02/2018 13:50 Peripheral Lines: Forea rm Right 22 gauge Over the needle catheter 07/30/2018 07:30 Central Lines: Subclavi an, right Dialysis tunneled (no surgical procedures documented) Input/Output Record In Out Bal 08/06 24hr Tot 11 800 -789 08/05 24hr Tot 730 0 730 Scheduled Meds (13):aspirin (aspirin 81 mg tablet, enteric coated), atorvastatin, cefTRIAXone + sterile water 10 mL (Rocephin + sterile water 10 mL), clopidogrel, epoetin kathy (Epogen), escitalopram, fludrocortisone, furosemide, heparin, (Suspended) metoprolol (metoprolol tartrate), pantoprazole, promethazine, sulfaSALAzine Unscheduled Meds: None PRN Meds (14):Dextrose 50% in Water IV (Dextrose 50% Syringe), Dextrose 50% in Water IV (Dextrose 50% Syringe), acetaminophen, glucagon, insulin lispro, insulin lispro, insulin lispro, insulin lispro, insulin lispro, insulin lispro, insulin lispro, insulin lispro, insulin lispro, ondansetron One Time Meds: None Continuous Infusions: None Labs (Last four charted values) WBC 5.7 (AUG 06) 6.3 (AUG 06) 4.9 (AUG 05) 5.7 (AUG 03) Hgb L 10.4 (AUG 06) L 10.6 (AUG 06) L 10.7 (AUG 05) L 10.0 (AUG 03) Hct L 31.0 (AUG 06) L 32.1 (AUG 06) L 32.1 (AUG 05) L 30.0 (AUG 03) Plt 181 (AUG 06) 187 (AUG 06) 192 (AUG 05) 168 (JUL 06) Na 143 (AUG 06) 142 (AUG 06) 143 (AUG 05) 141 (AUG 04) K 4.1 (AUG 06) 4.2 (AUG 06) 4.9 (AUG 05) 4.2 (AUG 04) CO2 27 (AUG 06) 25 (AUG 06) 25 (AUG 05) 25 (AUG 04) Cl 105 (AUG 06) 106 (AUG 06) 106 (AUG 05) 105 (AUG 04) Cr H 2.66 (AUG 06) H 2.76 (AUG 06) H 2.95 (AUG 05) H 2.29 (AUG 04) BUN H 31 (AUG 06) H 30 (AUG 06) H 28 (JUL 08) 15 (AUG 04) Glucose Random H 142 (AUG 06) H 140 (AUG 06) H 207 (JUL 08) H 145 (JUL 07) Mg 2.2 (AUG 05) Ca L 8.4 (AUG 06) 8.6 (AUG 06) 9.1 (OCT 08) 8.5 (AUG 04) PT 13.3 (JUL 28) INR 1.01 (JUL 28) PTT 28.1 (JUL 28) Troponin 0.03 (JUL 28) Extracted from:Title: Discharge Summary * Author: Chucho Zhou MD Date: 08/06/18 Results Review General results Labs (Last four charted values) WBC 5.7 (AUG 06) 6.3 (AUG 06) 4.9 (AUG 05) 5.7 (AUG 03) Hgb L 10.4 (AUG 06) L 10.6 (AUG 06) L 10.7 (JUL 08) L 10.0 (AUG 03) Hct L 31.0 (AUG 06) L 32.1 (AUG 06) L 32.1 (AUG 05) L 30.0 (AUG 03) Plt 181 (AUG 06) 187 (JUL 09) 192 (JUL 08) 168 (AUG 03) Na 143 (AUG 06) 142 (AUG 06) 143 (AUG 05) 141 (AUG 04) K 4.1 (AUG 06) 4.2 (AUG 06) 4.9 (AUG 05) 4.2 (AUG 04) CO2 27 (AUG 06) 25 (AUG 06) 25 (JUL 08) 25 (AUG 04) Cl 105 (AUG 06) 106 (AUG 06) 106 (AUG 05) 105 (AUG 04) Cr H 2.66 (JUL 09) H 2.76 (JUL 09) H 2.95 (JUL 08) H 2.29 (JUL 07) BUN H 31 (AUG 06) H 30 (AUG 06) H 28 (AUG 05) 15 (AUG 04) Glucose Random H 142 (AUG 06) H 140 (JUL 09) H 207 (JUL 08) H 145 (JUL 07) Mg 2.2 (JUL 08) Ca L 8.4 (AUG 06) 8.6 (JUL 09) 9.1 (JUL 08) 8.5 (AUG 04) PT 13.3 (JUL 28) INR 1.01 (JUL 28) PTT 28.1 (JUL 28) Troponin 0.03 (JUL 28) Final discharge diagnoses: 1. Syncope secondary to generalized wea kness 2. Medically debilitated 3. Hypertension 4. ESRD on HD 5. Status post four-vessel CABG 6. Type 2 diabetes Consultants: Nephrology, cardiology, hematology Discharge Information Disposition to senior care facility Condition stable Medications: See med reconciliation form Diet: Heart healthy Physical Examination VS/Measurements Vital Signs (last 24 hrs) Last Charted Temp Oral H 99.8DegF (AUG 06:57) Heart Rate Peripheral 91 bpm (AUG 06:57) Resp Rate 16 BRMIN (AUG 06:57) SBP 108 mmHg (AUG 06:) DBP 70 mmHg (AUG 06:) SpO2 99 % (AUG 06:) General: NAD, alert and oriented x3 HEENT: normacephalic, atraumatic, PERRLA, EOMI, supple w/ good ROM, normal pharynx Pulm: CTA B/L no w/r/r/c CV: +S1, +S2 no m/r/g, RRR, good cap refill, No JVD, no carotid bruits Abd: ND, NTTP, no rebound or guarding, BS+ Skin: intact, warm and dry, no rashes Musculoskeletal: 5/5 strength, normal range of motion, no swollen joints Neuro: alert and oriented x3, CN 2-12 intact Psychiatry: good judgment and insight Extremities: no edema, cyanosis or clubbing : no poon 2D echo: Conclusions 1) The left ventricular chamber size is normal. 2) There is no left ventricular hypertro phy observed. 3) There is normal left ventricular syst olic function. 4) Global left ventricular wall motion a nd contractility are within normal limits. 5) The LV ejection fraction is estimated at 55%-60%. 6) The left ventricular diastolic fillin g appears normal. 7) The tricuspid valve leaflets appear m orphologically normal. 8) There is trace tricuspid regurgitatio n present. 9) The right ventricular systolic pressu re was calculated at 36 mmHg. Carotid ultrasound: Negative Hospital Course 68-year-old female with known h istory of ESRD on dialysis who came in after having a syncopal episode due to generalized weakness. Cardiology nephrology was consulted. Patient received dialysis by the monorail charger operator while here in the hospital. In relation to her syncope carotid ultrasound found to be negative and 2D echo was found to be normal. Cardiology was consulted. It was felt that the patient's likely underlying weakness is due to generalized weakness requiring senior care facility for further rehabilitation. While here the patient was doing well working with PT and OT. On the day of discharge vital signs stable, labs are stable. Patient seen and evaluated examined thoroughly in addition other complaints. Patient verbalized understanding and agrees to plan of care follow-up accordingly as an outpatient with primary care physician in 1 week and the consultants described above in 1-2 weeks Discharge Plan In the event of any worsening symptom patient was to come back to the ED for further evaluation Discharge summary to greater than 35 minutes Addendum by Chucho Zhou MD on 08/06/2018 17:17 Final discharge diagnoses: E. colipatient was on IV antibiotics, will discharge on oral on Omnicef Extracted from:Title: HemOnc Author: Timo Mac MD Date: 08/05/18 Impression and Plan 1. Anemia: Normocytic normochromic. Will get baseline workup and continue to monitor. 2. ESRD: On HD. 3.Orthostatic hypotension: on Florinef. 4. Disp: Plan is to discharge to SNF. Please call with questions. 08/07/2018 [facility] Extracted from:Title: Clinical Document Author: Az Carney MD Date: 05/05/18 Progress Note - Dr. Carney [facility] Attending: Angel Ley MD Service: Internal Medicine Code status: Full Code [Ordered] Reason for Admission: BILATERAL PLEURAL EFFUSION, CKD (CHRONIC KIDNEY DISEASE Working DRG: Isolation: No Isolation/Standard Precautions Consulting Physicians: Alexi Wisdom MD Office: Service: Nephrology Az Carney MD Office: Service: Pulmonary, Medicine Jon Guillermo MD Office: Service: Cardiology Derrick Bullock MD Office: Service: Cardiology Anastasiia Blackwood MD Office: Service: Nephrology Nicolle Mix MD Office: Service: Pulmonary, Medicine Allergies (1) Active Reaction NKDA None documented Subjective: Is been doing okay denies chest pain nausea vomiting or other complaints pulmonary status remains stable Objective: HEENT atraumatic normocephalic neck was supple chest was reasonably clear heart sounds are normal abdomen is soft extremities no cyanosis clubbing or edema Vitals Tmp(F) Pulse BP RR SpO2 FIO2 05/05 11:39 98.8 79 145/67 1 8 94 --- 08 07:17 ---- --- ----- - - 94 21% 0708 07:15 ---- --- ----- 1 8 96 21% 0708 07:14 99.3 79 139/69 1 8 93 --- 0708 04:00 99.1 81 155/68 1 8 96 --- 24 Hr Tmax: 99.3F (37.39c) at 05/05 07:1 4 Vital Signs are the last 5 in the past 48 hours. Labs (Last four charted values) WBC 4.9 (MAY 04) 5.3 (APR 30) 5.9 (APR 29) 7.0 (APR 28) Hgb L 8.5 (MAY 04) L 9.2 (MAY 03) L 8.3 (APR 30) L 8.0 (APR 29) Hct L 25.9 (MAY 04) L 28.2 (MAY 03) L 25.8 (APR 30) L 25.1 (APR 29) Plt L 129 (MAY 04) L 118 (APR 30) L 124 (APR 29) 152 (APR 28) Na 140 (MAY 04) 139 (MAY 02) 139 (MAY 01) 144 (APR 30) K 4.1 (MAY 04) 4.0 (MAY 02) 4.5 (MAY 01) 4.0 (APR 30) CO2 32 (MAY 04) 29 (MAY 02) 27 (MAY 01) 30 (APR 30) Cl 104 (MAY 04) 103 (MAY 02) 105 (MAY 01) 108 (APR 30) Cr H 1.56 (MAY 04) H 2.80 (MAY 02) H 2.78 (MAY 01) H 2.34 (APR 30) BUN 15 (MAY 04) H 46 (MAY 02) H 39 (MAY 01) H 31 (APR 30) Glucose Random H 128 (MAY 04) H 167 (MAY 02) H 135 (MAY 01) 86 (APR 30) Ca L 8.1 (MAY 04) L 8.3 (MAY 02) L 8.4 (MAY 01) L 7.9 (APR 30) PT H 16.0 (APR 29) INR H 1.27 (APR 29) PTT H 45.8 (APR 30) H 73.6 (APR 30) H 36.4 (APR 29) Troponin 0.04 (MAY 05) 0.04 (MAY 04) 0.04 (MAY 03) 0.03 (MAY 02) CK MB 2.8 (APR 30) 3.4 (APR 29) H 3.9 (APR 29) 3.1 (APR 29) Total CK 177 (APR 30) H 200 (APR 29) 191 (APR 29) 105 (APR 29) I&O Record In Out Bal 05/05 24hr Tot 498 100 398 05/04 24hr Tot 516 4300 - 9324 Stroke Myocardial infarct Cholelithiasis Alzheimer disease Medications (28) Active Scheduled Meds (11): 04/30/18 amLODIPine 10 mg PO Daily 04/29/18 aspirin (aspirin 81 mg tablet, enteric coated) 81 mg PO Daily 04/29/18 atorvastatin 40 mg PO Bedtime 05/01/18 bumetanide (Bumex) 2 mg IVP Q8H 04/30/18 clopidogrel 75 mg PO Daily 05/04/18 epoetin kathy (Epogen) 3,000 uni t SUB-Q Q-04/30/18 escitalopram 10 mg PO Daily 04/29/18 metoprolol (metoprolol tartrate ) 50 mg PO BID 04/29/18 pantoprazole 40 mg PO Before Di nner 04/29/18 sodium chloride (Saline Flush 0 .9%) 10 ml IVP Q12H 04/29/18 sulfaSALAzine 500 mg PO BID Unscheduled Meds: None PRN Meds (17): 04/28/18 Dextrose 50% in Water IV (Dextr ose 50% Syringe) 12.5 gm IVP PRN 04/28/18 Dextrose 50% in Water IV (Dextr ose 50% Syringe) 25 gm IVP PRN 04/29/18 albuterol-ipratropium (DuoNeb i nhalation solution) 3 mL NEB RQ6H 04/28/18 glucagon 1 mg IM PRN 05/02/18 hydrALAZINE 10 mg IVP Q4H 04/28/18 insulin lispro 1 unit SUB-Q TID -Before Meals 04/28/18 insulin lispro 2 unit SUB-Q TID -Before Meals 04/28/18 insulin lispro 3 unit SUB-Q TID -Before Meals 04/28/18 insulin lispro 4 unit SUB-Q TID -Before Meals 04/28/18 insulin lispro 5 unit SUB-Q TID -Before Meals 04/28/18 insulin lispro 1 unit SUB-Q Bed time 04/28/18 insulin lispro 2 unit SUB-Q Bed time 04/28/18 insulin lispro 3 unit SUB-Q Bed time 04/28/18 insulin lispro 4 unit SUB-Q Bed time 04/29/18 morphine Sulfate 12 mg PO Q4H 04/28/18 ondansetron 4 mg PO Q8H 04/28/18 sodium chloride (Saline Flush 0 .9%) 10 ml IVP PRN One Time Meds: None Continuous Infusions: None Assessment and Plan: Patient with history of microinfarction stroke cholelithiasis and dementia. Clinically patient is doing better patient also an underlying diabetes mellitus. Patient was being treated with Bumex with improvement and pulmonary status remains stable patient remained on room air patient was also getting pain medications as needed and insulin sliding scale treatment mostly supportive patient will require follow-up as an outpatient prognosis guarded Extracted from:Title: Cardiology Consultation Author: Derrick Bullock MD Date: 04/29/18 Impression and Plan - Chest pain - CAD s/p 4v CABG (STARK-LAD, SVG-D, SVG- OM, SVG-PDA) on 03/05/18 - HFpEF in 01/2018 - HTN - HLD - IDDM - CKD - H/o CVA - Anemia - HCV cirrhosis - Superficial thrombosis of the LLE (02/28 ) - monitor - Hypoglycema # Chest pain / CAD s/p 4v CABG on 03/05/18 - Acute episode of chest pain. EKG unre markable. ?MSK - reports recently falling - Given her cardiac hx, will start on he hector ggt while we trend her C - Check TTE - Continue ASA, plavix (until 02/2019), B B and statin. # HFpEF - On BB. No ELIZABETH-i d/t CKD - On IV lasix for now. Continue to [facility] as there does not appear to be much congestion on CXR and CT # HTN - Stable # HLD - On statin Extracted from:Title: General Admission H&P * Author: Medardo Nguyen MD Date: 04/28/18 Patient: MARY SCHREIBER Age: 68 years Sex: Female : 1950 Associated Diagnoses: None Author: Medardo Nguyen MD Basic Information Source of history: Self. Chief Complaint 04/28/2018 17:20 PT from home. P T had BS of 39, lethargic. Coke and orange juice given at home. Hx: recent bipassx4, DM, HTN History of Present Illness 68-year-old pleasant woman with medical history of CAD status post CABG, uncontrolled insulin-dependent type 2 diabetes mellitus with hyperglycemia, ESRD was on dialysis prior currently off dialysis since past 1 month, came with complaints of feeling weak, lethargic, low blood sugar, shortness of breath. Patient states her blood sugar was 39 today and she drank some coke and orange with improvement in her sugars. She also felt lethargic, tired along with dizziness. Patient also complains of shortness of breath especially more pronounced with exertion, denies any chest pain In the ER she was found to be hypoglycemic, volume overloaded state, nephrology consulted and pt admitted Review of Systems Constitutional: Weakness, Fatigue. Eye: Negative. Ear/Nose/Mouth/Throat: Negative. Respiratory: Negative except as documented in history of present illness. Cardiovascular: Negative except as documented in history of present illness. Gastrointestinal: Negative. Genitourinary: Negative. Hematology/Lymphatics: Negative. Endocrine: Negative except as documented in history of present illness. Immunologic: Negative. Musculoskeletal: Negative. Integumentary: Negative. Neurologic: Negative. Psychiatric: Negative. 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 Myocardial infarct ([id number]): Resolved. Cholelithiasis ([id number]): Resolved. Alzheimer disease (1877345531): Resolved. Family History: Procedure history: CABG x 1 - Coronary artery bypass graft x 1 (051143399). Cholecystotomy (94669315). Abdominal hysterectomy (512894203). Cholecystectomy (90485240). Comments: 02/17/2016 23:53 - Candy [facility] (023141507). Social History Social and Psychosocial Habits Alcohol 04/28/2018 Use: Never Substance Abuse 04/28/2018 Use: None Tobacco 02/08/2018 Use: Never smoker Ready to change: No Concerns about tobacco use in household: No Exposure to Tobacco Smoke None Cigarette Smoking Last 365 Days No Reg Smoking Cessation Counseling No 04/28/2018 Use: Never smoker Exposure to Tobacco Smoke None Cigarette Smoking Last 365 Days No Reg Smoking Cessation Counseling No . Physical Examination VS/Measurements Vital Signs (last 24 hrs) Last Charted Temp Oral 98.7 DegF (APR 28 22:13) Heart Rate Apical 98 bpm (APR 28 22:57) Resp Rate H 24BRMIN (APR 28:57) SBP H 172mmHg (APR 28 22:57) DBP 87 mmHg (APR 28 22:57) SpO2 98 % (APR 28 22:57) Weight 59.545 kg (APR 28 17:20) Height 152.4 cm (APR 28:20) BMI 25.64 (APR 28:20) GENERAL: Patient awake, alert, oriented to time, place, person. No distress HEENT: no pallor, no icterus, JVP elevated, no carotid bruit, oral mucosa moist, no thyromegaly LUNGS: normal respiratory effort, decreased air entry at bases CVS: S1, S2 +, Regular rhythm, no murmur, 1+ edema GI: Bowel sounds +, soft, nontender, nondistended, no organomegaly MUSKULOSKELETAL: no restriction of movements NEURO: No focal deficits, normal strength in all extremities, sensation normal, Cranial nerves II- XII intact, reflexes normal PSYCH: normal mood Review / Management Results review: Labs (Last four charted values) WBC 7.0 (APR 28) Hgb L 10.4 (APR 28) Hct L 31.5 (APR 28) Plt 152 (APR 28) Na 142 (APR 28) K 3.6 (APR 28) CO2 26 (APR 28) Cl 107 (APR 28) Cr H 1.82 (APR 28) BUN H 29 (APR 28) Glucose Random 77 (APR 28) Ca 8.5 (APR 28) Troponin 0.03 (APR 28) CK MB H 4.9 (APR 28) Total CK 125 (APR 28) . Impression and Plan -Hypoglycemia in a patient with diabetes mellitus type 2, insulin-dependent Hold long-acting insulin for now Symptomatic treatment for hypoglycemia -Shortness of breath Likely secondary to volume overload state in the setting of end-stage renal disease Nephrology consulted We will diuresis with Lasix for now Dialysis needs to be determined per nephrology, patient also has pleural effusions -CAD status post CABG Resume aspirin, Plavix, statin -Hypertension Resume home medication - anemia of chronic disease Stable DVT ppx: heparin DISPO; expect ~ 2 MN stay Addendum by Medardo Nguyen MD on 04/29/2018 00:28 Patient still hypoglycemic, will check fingerstick every 2 hourly and give D50 syringe 25 g bolus as needed. Not on continuous infusion given her volume overload state 05/05/2018 [facility] Extracted from:Title: Clinical Document Author: Chucho Zhou MD Date: 04/01/18 Progress Note SUBJECTIVE: Patient seen and evaluated at bedside. No overnight events. Denies chest pain, nausea, vomiting, diarrhea, headache, lightheadness, abdomen pain or dizziness. OBJECTIVE: Vitals Tmp(F) Pulse BP RR SpO2 FIO2 06/04 12:00 98.2 74 162/72 1 6 93 --- 04/01 07:30 98.2 75 173/73 1 6 92 --- 03/31 20:10 98.7 81 148/66 1 8 93 --- 03/31 16:00 98 79 158/69 18 --- --- 03/31 08:16 99 81 153/70 18 --- --- 24 Hr Tmax: 98.7F (37.06c) at 03/31 20:1 0 Vital Signs are the last 5 in the past 48 hours. I&O Record In Out Bal 04/01 24hr Tot 640 0 640 03/31 24hr Tot 720 1100 -380 Labs (Last four charted values) WBC 4.4 (APR 01) 4.6 (MAR 02) 4.7 (MAR 29) 5.2 (MARCH 28) Hgb L 9.7 (APR 01) L 9.0 (MAR 02) L 9.0 (MAR 29) L 9.9 (MARCH 28) Hct L 29.7 (MAR 04) L 26.8 (MAR 02) L 27.5 (MAR 01) L 29.5 (MARCH 28) Plt 204 (MAR 04) 136 (MAR 02) L 117 (MAR 01) L 99 (MARCH 28) Na 143 (MAR 04) 140 (MAR 03) 138 (MAR 02) 140 (MAR 01) K 4.9 (JAY 04) 5.0 (MAR 03) 4.9 (JAY 02) 5.0 (MAR 29) CO2 29 (MAR 04) 27 (MAR 03) 26 (MAR 02) 29 (MAR 29) Cl 106 (MAR 04) 108 (MAR 03) 106 (MAR 02) 103 (MAR 29) Cr H 2.18 (MAR 04) H 2.08 (MAR 03) H 2.12 (JAY 02) H 2.43 (MAR 01) BUN H 32 (MAR 04) H 30 (MAR 03) H 29 (JAY 02) H 29 (MAR 01) Glucose Random H 137 (JAY 04) H 113 (JAY 03) 96 (JAY 02) 84 (MAR 01) Mg 1.9 (MARCH 22) Ca 8.7 (MAR 04) L 8.3 (MAR 03) L 8.2 (MAR 02) 8.6 (MAR 29) No qualifying data available PHYSICAL EXAM: General: Alert and oriented, No acute distress. Eye: Pupils are equal, round and reactive to light, Extraocular movements are intact, Normal conjunctiva. HENT: Normocephalic, Oral mucosa is moist. Neck: Supple, Non-tender, No jugular venous distention. Respiratory: Lungs are clear to auscultation, Respirations are non-labored, Breath sounds are equal. Cardiovascular: Normal rate, Regular rhythm, No murmur. Gastrointestinal: Soft, Non-tender, Non-distended, Normal bowel sounds. Genitourinary: No costovertebral angle tenderness. Musculoskeletal Normal range of motion. Normal strength. Integumentary: Warm, Dry. Neurologic: Alert, Oriented. Cognition and Speech: Oriented, Speech clear and coherent. Psychiatric: Cooperative, Appropriate mood and affect. Lower extremity venous Doppler: IMPRESSION: Superficial thrombosis, otherwise no deep venous thrombosis of the left lower extremity appreciated. Impression and Plan 1. Status post CABGaspirin, Plavix, st atin, cardio protective meds 2. ESRD on HDnephrology following, HD per renal, nephrology following possible and not need dialysis 3. Type 2 diabetesincrease Lantus to 1 5 units twice daily, continue with sliding scale 03/23: Continue with Lantus twice daily, glucose levels better controlled 03/24: Glucose levels better controlled, continue with same regimen 03/25: Glucose levels better controlled, continue same regimen, monitor with Accu-Cheks 03/26: Patient was hypoglycemic this morning, decrease Lantus to 8 units subcu twice daily, discussed this with the nursing staff inpatient as well 03/27: Glucose much improved, monitor 03/28: Glucose levels were low today, change Lantus to 8 units subcu at bedtime only 03/29: Will DC Lantus and monitor glucose levels closely 6/2: Glucose levels stable and controlled, continue with sliding scale 63: Glucose stables, continue to monitor closely 64: Glucose stable, monitored off of the entire glycemic medication 4. Hypertensionstable, continue same h ome medication, will add Norvasc 10 mg daily 5. Hyperlipidemiaoral statin 6. Anemia of ESRDerythropoietin, venof er 7. ProphylaxisSCDs, ambulation 8. Fluid electrolytes nutrientsdiabeti c diet 9. Left lower extremity swelling concer theodore for DVT damage venous Doppler ordered, shows evidence of thrombophlebitis, continue with warm compresses, patient reports feeling much better today 03/29: Left lower extremity pain improved, still has tenderness and swelling, continue with warm compresses 03/30: Patient is improving, continue same plan of care 04/01: Continue with aspirin Plavix and warm compresses 10. Dispositioninpatient rehab, nephro logy, cardiology, physical medicine rehab following Patient will be discharged home today 04/01/2018 CLAY [facility] Extracted from:Title: Discharge Summary * Author: Chucho Zhou MD Date: 03/21/18 Discharge Information Disposition: Inpatient rehab Condition: Stable Medications: See med reconciliation form Diet: Heart healthy Discharge Plan In the event of any worsening symptom patient was to come back to the ED for further evaluation Discharge summary to greater than 35 minutes Extracted from:Title: Clinical Document Author: Alexi Wisdom MD Date: 03/20/18 Progress Note Nephrology SUBJECTIVE doing well Physical Exam alert, oriented HEENT : peerla NECK: no jvd, no bruits, HEART : RRR no s3 no S4, no murmur, no rub LUNGS: no wheezes no rales, no rhonci ABDOMEN: NTND no organomegaly no hepatomegaly positive bowel sounds EXT: no clubbing no cyanosis no edema NEURO:no focalities, no sensory defecits, no motor defecits SKIN: no rash, no bruises ASSESSMENT 1. Chronic kidney disease, stage IV. rubina harvey 1.99 2. Contrast nephropathy, resolved. 3. ATN post surgery not resolving now o n dialysis 4. Coronary artery disease requiring xavier rgery. s/p cabg 5. Hypertension. 6. Type 2 diabetes mellitus 7. volume overload PLAN and TREATMENT discontinued poon dialysis in am rechek labs in am guaiac positive monitor h/h needs placement tunneled cathter transfusion ordered OBJECTIVE Vitals Tmp(F) Tmp(C) Ttype BP MAP Pulse RR SpO2 FIO2 ETCO2 03/20 20:00 99 37.22 oral 12 --- 63 18 100 --- --- 03/20 19:59 ---- ---- ---- - ---- --- --- 12 98 --- --- 03/20 16:00 98.6 37.00 oral 131/71 --- 57 18 99 --- --- 03/20 12:00 99 37.22 oral 11 --- 61 18 100 --- --- 03/20 08:05 ---- ---- ---- - ---- --- --- 12 92 --- --- 24 Hr Tmax: 99F (37.22c) at 03/20 20:00 Vital Signs are the last 5 in the past 48 hours. 24 Hr Tmin: 97.4F (36.33c) at 03/20 00: 00 Weights are the last 5 in 60 days, plus initial. Date Wt(kg) Wt(lb) Ht(cm) Ht(in) Method BMI BSA 03/20 61.70 135.74 Measur ed 03/19 57.80 127.16 Measur ed 03/18 61.59 135.50 Measur ed 03/17 61.82 136.00 Measur ed 03/16 62.78 138.12 Measur ed 02/28 (initial) 58.18 128.00 Measured 25.1 1.57 02/28 152.40 60.00 Stated 24 Hr Point of Care Glucoses 03/20 2046 Glucose POC 240 H 03/20 1516 Glucose POC 307 H 03/20 1112 Glucose POC 265 H Most Recent Scores: 03/20/18 Pain Intensity NRS (0-10) 0 03/20/18 Petros Score 16 03/20/18 Jeffrey Coma Score 15 03/20/18 Montalvo Duran Fall Score 10 03/01/18 NIH Stroke Score 0 Lines, Tubes, and Drains: 03/19/2018 19:02 Central Lines: Subclavi an, right Dialysis tunneled 03/16/2018 08:18 Peripheral Lines: Other : Trialysis Catheter Left Other: Triple lumen 03/01/2018 12:00 Peripheral Lines: Forea rm Right 22 gauge Over the needle catheter Surgical Procedures: 03/19/18 13:[address] SUKHDEV TER PLACEMENT [id number] Primary Surgeon: Mario Abdi MD (Service: CVT) 03/05/18 09:27 CORONARY ARTERY BYPASS GRAFT; LEFT LEG EVH;STARK-LAD, SVG-OM, SVG-DIAG, SVG-PDA [id number] Primary Surgeon: Gabriele Chaney MD (Service: CVT) Input/Output Record In Out Bal 03/20 24hr Tot [phone] 03/19 24hr Tot [phone] Scheduled Meds (8):aspirin (aspirin 81 mg tablet, enteric coated), atorvastatin, clopidogrel (Plavix), epoetin kathy (Epogen (ESRD)), escitalopram, metoprolol (Lopressor), non-formulary (please give midodrine before dialysis on dialysis days), pantoprazole (Protonix) Unscheduled Meds: None PRN Meds ():Dextrose 50% in Water IV (Dextrose 50% Syringe), Dextrose 50% in Water IV (Dextrose 50% Syringe), acetaminophen-hydrocodone (acetaminophen- hydrocodone 325 mg-5 mg oral tablet), acetaminophen-hydrocodone (acetaminophen- hydrocodone 325 mg-10 mg oral tablet), acetaminophen, glucagon, hydrALAZINE, hydromorphone, insulin lispro, insulin lispro, insulin lispro, insulin lispro, insulin lispro, insulin lispro, insulin lispro, insulin lispro, insulin lispro, melatonin, metoclopramide (metoclopramide 5 mg oral tablet), midodrine, nitroglycerin, ondansetron One Time Meds (4):(Completed) Sodium Chloride 0.9% IV (Sodium Chloride 0.9% (Bolus) IV), (Completed) lidocaine (lidocaine (ANES)), (Completed) metoclopramide (metoclopramide (ANES)), (Completed) propofol (propofol (ANES)) Continuous Infusions (1):Sodium Chloride 0.9% IV 250 mL (Sodium Chloride 0.9% (titrate) 250 mL) Labs (Last four charted values) WBC H 10.9 (MARCH 20) H 12.2 (MARCH 18) H 10.6 (MARCH 16) H 15.6 (MARCH 15) Hgb L 7.5 (MARCH 20) L 7.8 (MARCH 18) L 7.6 (MARCH 16) L 8.2 (MARCH 15) Hct L 22.2 (MARCH 20) L 23.4 (MARCH 18) L 22.6 (MARCH 16) L 24.3 (MARCH 15) Plt 153 (MARCH 20) 146 (MARCH 18) L 117 (MARCH 16) 157 (MARCH 15) Na 137 (MARCH 20) L 133 (MARCH 19) 136 (MARCH 18) 136 (MARCH 16) K 3.7 (MARCH 20) 4.9 (MARCH 19) 4.3 (MARCH 18) 3.6 (MARCH 16) CO2 26 (MARCH 20) L 20 (MARCH 19) 26 (MARCH 18) 28 (MARCH 16) Cl 97 (MARCH 20) 100 (MARCH 19) 100 (MARCH 18) 100 (MARCH 16) Cr H 3.23 (MARCH 20) H 5.60 (MARCH 19) H 4.28 (MARCH 18) H 3.83 (MARCH 16) BUN H 23 (MARCH 20) H 47 (MARCH 19) H 36 (MARCH 18) H 38 (MARCH 16) Glucose Random H 241 (MARCH 20) H 171 (MARCH 19) H 195 (MARCH 18) H 208 (MARCH 16) Mg 2.0 (MARCH 20) 2.1 (MARCH 19) 2.2 (MARCH 18) 2.4 (MARCH 10) Phos H 6.1 (MARCH 08) 4.0 (MARCH 05) 3.9 (MARCH 04) 4.2 (MARCH 03) Ca L 7.9 (MARCH 20) 8.6 (MARCH 19) L 8.4 (MARCH 18) 8.5 (MARCH 16) PT H 16.5 (MARCH 07) H 16.7 (MARCH 06) H 19.5 (MARCH 05) H 21.4 (MARCH 05) INR H 1.32 (MARCH 07) H 1.34 (MARCH 06) H 1.64 (MARCH 05) H 1.84 (MARCH 05) PTT 34.5 (MARCH 07) H 36.3 (MARCH 06) H 37.7 (MARCH 05) H 39.0 (MARCH 05) Troponin 0.02 (MARCH 02) 0.04 (MARCH 01) 0.03 (FEBRUARY 28) 0.04 (FEBRUARY 28) CK MB 1.7 (FEBRUARY 28) Total CK 65 (MARCH 02) 73 (MARCH 01) 136 (FEBRUARY 28) Extracted from:Title: Clinical Document Author: Mario Abdi MD Date: 03/19/18 DATE OF : 1950 DATE OF OPERATION: 03/19/2018 PREOPERATIVE DIAGNOSIS: End-stage renal disease, need for hemodialysis access POSTOPERATIVE DIAGNOSIS: End-stage renal disease, need for hemodialysis access OPERATION: Ultrasound-guided right IJ access Right IJ tunnelled dialysis catheter placement (DuraFlo, Biomax) under flouroscopic guidance SURGEON: Dr. Mario Abdi. ASSISTING SURGEON: Erika ANESTHESIA: General INDICATIONS FOR PROCEDURE: Risks benefits and options were discussed with the patient who appropriately consented for the procedure. Informed consent was obtained PROCEDURE IN DETAIL: Prior to surgery, the risks, benefits and complications, and alternatives were discussed with the patient and appropriately consent was obtained. Patient was transferred to the operating room and made comfortable in the supine position. Neck and chest was prepared using ChloraPrep solution and sterile drapes were placed. Ultrasound-guided right IJ access was obtained and maintained by using an 035 wire.Serial dilation of the tract was then performed. Peel-away sheath was then prepped placed. Tunneled dialysis catheter was tunneled in the subcutaneous tissue and exteriorized through the cervical incision. Catheter was then introduced into the SVC atrial junction under fluoroscopic guidance. Each port was aspirated and flushed and packed with heparin. Catheter was secured to skin by using nylon suture. The wounds were approximated by using Vicryl and Monocryl. Sterile dressing was then placed. Extracted from:Title: General Admission H&P * Author: Chucho Zhou MD Date: 02/28/18 Impression and Plan 1. Unstable anginacardiology, thoracic surgery consulted, heparin drip, Nitropaste, aspirin, cardio protective meds 2. Stage IV CKDcreatinine at baseline, nephrology consulted 3. Type 2 diabetesinsulin sliding scal e, Accu-Cheks, A1c 4. Anemia of CKDhemoglobin 8.9, monito r 5. Prophylaxisheparin drip 6. Fluid electrolytes nutrientsheart h ealthy diet 7. PT/OTeval and treat 8. Dispositioninpatient, cardiology, C V surgery and nephrology consulted 03/21/2018 Julian Extracted from:Title: Progress Note * Author: Teja Dorsey MD Date: 02/21/18 Impression and Plan The patient was seen and examined by me with the resident/ASBESTOS SHINGLE INSPECTOR/PA and I agree with the History/Exam documented. Extracted from:Title: Discharge Summary * Author: Chucho Zhou MD Date: 02/21/18 Discharge Information Disposition to home Condition stable Medications: See med reconciliation form Diet: Heart healthy Discharge Plan In the event of any worsening symptom patient was to come back to the ED for further evaluation Discharge summary to greater than 35 minute Extracted from:Title: GI Consult * Author: Jorge Luis Leal MD Date: 02/18/18 Impression and Plan IMPRESSION 1. H/o HCV 2. Liver cirrhsos- etiology HCV, denies ETOH -US from , report cirrhotic changes to the liver - Kyle class Pending 3. Anemia- chronic, no reprots of acute GI bleeding 4. CAD on anticoagulation 5. CKD - worsening renal function RECOMMENDATIONS 1. Liver US 2. Anti-HAV IgM/ HBsAG and HCV viral mary d and gentotype 3. AFP 4. hepatic function panel and albumin le bryan today, so Kyle Vaz can be calculated 5. add octreotide SQ and midodrine PO ( only if ok with renal and cardiology), albumin x 1- ?HRS component of worsening renal function 6. If patient falls into Kyle Vaz cla ss A, low risk involved with proceeding with surgery. GI Attending I have examined the patient with the Nurse Practitioner and confirmed the essential components of history, physical examination, diagnosis and treatment plan. I agree with the patient's care as documented by the Nurse Practitioner. If child A calssificaiton: mild risk of surgery however if kyle B and C, considered high risk for operative risks, US pending Repeat Labs in am 02/21/2018 [facility] Extracted from:Title: Progress Note Author: Derrick Bullock MD Date: 02/11/18 Impression and Plan - Chest pain - CAD s/p PCI 2-3 years ago at OSH - HFpEF - HTN - CKD - IDDM - Anemia - HCV cirrhosis - H/o CVA # Chest pain / CAD - EKG w/o any ischemic changes. - Possible her chest pain is d/t her unc ontrolled BP (SBP 190s-200s) and anxiet - CE neg x 3. - TTE unremarkable. - Continue ASA 81. Started on statin and BB # HFpEF - Started coreg as above. - Given her edema, on IV lasix but can b e d/c home on po when ready # HTN - Holding ELIZABETH-i given MÓNICA - Started on coreg. IV hydralazine prn # MÓNICA on CKD - Renal on board # IDDM - On SSI # Anemia - Appears at baseline. Extracted from:Title: Clinical Document Author: Timothy Morataya MD Date: 02/11/18 Discharge Summary [facility] Timothy Morataya MD Discharge Diagnosis: 1. MÓNICA on CKD 2. CAD s/p PCI 2-3 years ago 3. Chronic diastolic congestive heart fa ilure, with possible acute component 4. HTN 5. atypical CP 6. IDDM 7. Anemia 8. HCV cirrhosis 9. H/o CVA Brief Hospital Course: 68 year old female with an extensive PMH including CAD s/p PCI at an OSH, HFpEF, HTN, IDDM, CKD, CVA, anemia and HCV cirrhosis presented with chest pain. Reports that over the past 3 days that she has suddenly been having intermittent episode of L sided chest pain. The pain seemed more intense, she presented for further evaluation. EKG revealing NSR with negative cardiac enzymes. SBP noted to be in the 190-200 range. Has also noticed increase LE edema during this time frame with SOB. The patient was ruled out and cleared by cardiology. Renal was involved in the case too. Serum creatinine was monitored closely. Case was discussed with renal and she will follow-up as an outpatient Vitals Tmp(F) Pulse BP RR SpO2 FIO2 02/11 07:23 98.7 82 155/71 1 8 97 --- 02/11 04:25 98.7 77 132/70 1 8 99 --- 02/10 23:27 98.7 76 123/69 1 8 97 --- 02/10 19:50 98.5 81 128/67 1 8 96 --- 02/10 15:40 98.0 83 147/75 1 8 85 --- 24 Hr Tmax: 98.7F (37.06c) at 02/11 07:2 3 Vital Signs are the last 5 in the past 48 hours. Notify your physician if: Pain Follow Up When: 2 Weeks Reason for Follow Up: Follow Up on Treatment Diet: Continue Home Diet Activity: No restrictions Labs (Last four charted values) WBC 5.9 (FEB 10) 5.2 (FEB 09) 5.1 (FEB 09) 6.3 (FEB 08) Hgb L 8.8 (FEB 10) L 8.0 (FEB 09) L 8.0 (FEB 09) L 8.6 (FEB 08) Hct L 26.0 (FEB 10) L 24.1 (FEB 09) L 24.2 (APR 14) L 26.3 (JAN 13) Plt 143 (JAN 15) L 123 (JAN 14) L 127 (JAN 14) L 123 (JAN 13) Na 139 (JAN 16) 139 (JAN 15) 141 (JAN 14) 141 (JAN 14) K 4.5 (JAN 16) 4.3 (JAN 15) 4.9 (JAN 14) 4.9 (JAN 14) CO2 27 (JAN 16) 26 (JAN 15) 26 (JAN 14) 27 (JAN 14) Cl 106 (JAN 16) 106 (JAN 15) 108 (JAN 14) 107 (JAN 14) Cr H 2.34 (JAN 16) H 2.12 (JAN 15) H 2.00 (JAN 14) H 2.00 (JAN 14) BUN H 46 (JAN 16) H 40 (JAN 15) H 41 (JAN 14) H 41 (JAN 14) Glucose Random 76 (JAN 16) 83 (JAN 15) H 175 (JAN 14) H 179 (JAN 14) Mg H 2.5 (FEB 09) H 2.5 (FEB 08) Phos 4.2 (FEB 08) Ca L 8.3 (JAN 16) 8.5 (JAN 15) L 7.9 (JAN 14) L 8.0 (JAN 14) Troponin <0.02 (JAN 14) <0.02 (FEB 08) <0.02 (FEB 08) CK MB 1.8 (FEB 08) 1.8 (FEB 08) Total CK 70 (JAN 14) 82 (JAN 13) 89 (FEB 08) Medications (30) Active Scheduled: (9) aspirin 81 mg ECT 81 mg 1 tab, PO, Daily atorvastatin 40mg tab 40 mg 1 tab, PO, Bedtime carvedilol 3.125 mg TAB 6.25 mg 2 tab, PO, Q12H cefTRIAXone 1 gm INJ VL + water for INJection, sterile 10 mL 1 gm, IV, [id number] escitalopram 10 mg TAB 10 mg 1 tab, PO, Daily furosemide 10mg/ml INJ 4ml VL 40 mg 4 mL, IVP, Daily insulin GLARGINE 1 unit/0.01 mL INJ SYR 20 unit 0.2 mL, SUB-Q, Bedtime pantoprazole 40 mg ECT 40 mg 1 tab, PO, Q24H sodium chloride 0.9% 10 ml flush syr BD 10 ml, IVP, Q12H Continuous: (0) PRN: (21) acetaminophen 325 mg TABLET 650 mg 2 tab, PO, Q4H Dextrose 50% 50 ml INJ syringe 12.5 gm 25 mL, IVP, PRN Dextrose 50% 50 ml INJ syringe 25 gm 50 mL, IVP, PRN diphenhydrAMINE 25 mg Tab 25 mg 1 tab, PO, Bedtime glucagon recombinant 1 mg PDR 1 mg, IM, PRN hydrALAZINE 20 mg/1 ml VL 10 mg 0.5 mL, IVP, Q4H insulin lispro 100 unit/ml 3 ml Vial 1 unit 0.01 mL, SUB-Q, TID-Before Meals insulin lispro 100 unit/ml 3 ml Vial 2 unit 0.02 mL, SUB-Q, TID-Before Meals insulin lispro 100 unit/ml 3 ml Vial 3 unit 0.03 mL, SUB-Q, TID-Before Meals insulin lispro 100 unit/ml 3 ml Vial 4 unit 0.04 mL, SUB-Q, TID-Before Meals insulin lispro 100 unit/ml 3 ml Vial 5 unit 0.05 mL, SUB-Q, TID-Before Meals insulin lispro 100 unit/ml 3 ml Vial 1 unit 0.01 mL, SUB-Q, Bedtime insulin lispro 100 unit/ml 3 ml Vial 2 unit 0.02 mL, SUB-Q, Bedtime insulin lispro 100 unit/ml 3 ml Vial 3 unit 0.03 mL, SUB-Q, Bedtime insulin lispro 100 unit/ml 3 ml Vial 4 unit 0.04 mL, SUB-Q, Bedtime metoclopramide 5 mg TAB 5 mg 1 tab, PO, QID-Before Meals MORPhine sulfate 2 mg/mL INJ SYR PF 2 mg 1 mL, IVP, Q15Min nitroglycerin 0.4 mg TAB 25's btl 0.4 mg 1 tab, SL, Q5Min ondansetron 4 mg TAB 4 mg 1 tab, PO, Q8H sodium chloride 0.9% 10 ml flush syr BD 10 ml, IVP, PRN sodium chloride 0.9% 10 ml INJ (PF) 10 mL, IVP, PRN Medications (30) Active Scheduled Meds (9): 02/09/18 aspirin (aspirin 81 mg tablet, enteric coated) 81 mg PO Daily 02/08/18 atorvastatin 40 mg PO Bedtime 02/08/18 carvedilol 6.25 mg PO Q12H 02/09/18 cefTRIAXone + sterile water 10 mL (Rocephin + sterile water 10 mL) 1 gm IV [id number] 120 ml/hr 02/10/18 escitalopram 10 mg PO Daily 02/08/18 furosemide (Lasix) 40 mg IVP Da dex 02/09/18 insulin glargine (Lantus 100 un its/mL) 20 unit SUB-Q Bedtime 0 ml/hr 02/09/18 pantoprazole (Protonix) 40 mg P O Q24H 02/08/18 sodium chloride (Saline Flush 0 .9%) 10 ml IVP Q12H Unscheduled Meds: None PRN Meds (21): 02/08/18 Dextrose 50% in Water IV (Dextr ose 50% Syringe) 12.5 gm IVP PRN 02/08/18 Dextrose 50% in Water IV (Dextr ose 50% Syringe) 25 gm IVP PRN 02/08/18 acetaminophen 650 mg PO Q4H 02/08/18 diphenhydrAMINE 25 mg PO Bedtim e 02/08/18 glucagon 1 mg IM PRN 02/08/18 hydrALAZINE 10 mg IVP Q4H 02/08/18 insulin lispro 1 unit SUB-Q TID -Before Meals 02/08/18 insulin lispro 2 unit SUB-Q TID -Before Meals 02/08/18 insulin lispro 3 unit SUB-Q TID -Before Meals 02/08/18 insulin lispro 4 unit SUB-Q TID -Before Meals 02/08/18 insulin lispro 5 unit SUB-Q TID -Before Meals 02/08/18 insulin lispro 1 unit SUB-Q Bed time 02/08/18 insulin lispro 2 unit SUB-Q Bed time 02/08/18 insulin lispro 3 unit SUB-Q Bed time 02/08/18 insulin lispro 4 unit SUB-Q Bed time 02/09/18 metoclopramide (metoclopramide 5 mg oral tablet) 5 mg PO QID-Before Meals 02/08/18 morphine Sulfate 2 mg IVP Q15Mi n 02/08/18 nitroglycerin (nitroglycerin SL Tab) 0.4 mg SL Q5Min 02/08/18 ondansetron 4 mg PO Q8H 02/08/18 sodium chloride (Saline Flush 0 .9%) 10 mL IVP PRN 02/08/18 sodium chloride (Saline Flush 0 .9%) 10 ml IVP PRN One Time Meds: None Continuous Infusions: None Extracted from:Title: Clinical Document Author: Timothy Morataya MD Date: 02/09/18 Internal Medicine Consult [facility] Timothy Morataya MD Chief Complaint: headache and midsternal "burning" chest pain x3 days, worse this am. History of Present Illness 68 year old female with an extensive PMH including CAD s/p PCI at an OSH, HFpEF, HTN, IDDM, CKD, CVA, anemia and HCV cirrhosis presents with chest pain. Reports that over the past 3 days that she has suddenly been having intermittent episode of L sided chest pain. The pain seemed more intense, she presented for further evaluation. EKG revealing NSR with negative cardiac enzymes. SBP noted to be in the 190-200 range. Has also noticed increase LE edema during this time frame with SOB. Review of Systems 14 point ROS negative unless stated abov e Health Status Allergies: Allergic Reactions (Selected) Severity Not Documented NKDA- No reactions were documented., Allergies (1) Active Reaction NKDA None Documented Current medications: (Selected) Combivent Respimat CFC free 100 mcg-20 mcg/inh inhalation aerosol: 1 puff, INHALATION, QID, 2 ea, 1 Refill(s) Lasix 40 mg oral tablet: 40 mg, 1 tab, PO, BID, 60 tab, 1 Refill(s) amLODIPine 5 mg oral tablet: 5 mg, 1 tab, PO, Daily, 30 tab, 0 Refill(s) aspirin 81 mg tablet, enteric coated: 81 mg, 1 tab, PO, Daily, 100 tab, 0 Refill(s) insulin glargine 100 units/mL subcutaneous solution: 20 unit, SUB-Q, Daily, for 30 day, 10 mL, 0 Refill(s) NovoLOG: SUB-Q, TID-Before Meals, 0 Refill(s) benzonatate 200 mg oral capsule: 200 mg, 1 cap, PO, TID, for 10 day, 30 cap, 0 Refill(s) ferrous sulfate: See Instructions, PO, 0 Refill(s) insulin aspart: 5 unit, SUB-Q, TID-Before Meals, 0 Refill(s) insulin detemir 100 units/mL subcutaneous solution: 15 unit, SUB-Q, Bedtime, 0 Refill(s), Histories Past Medical History: Active Diabetes mellitus (307603322) Hepatitis C (32095257) Stroke ([id number]): Myocardial infarct ([id number]): Cholelithiasis ([id number]): Alzheimer disease ([id number]): Family History: Reviewed and noncontributory to present illness Procedure history: CABG x 1 - Coronary artery bypass graft x 1 ([id number]). Cholecystotomy (66030695). Abdominal hysterectomy (534462924). Cholecystectomy (34001118). Eye care ([id number]). Social History Social and Psychosocial Habits Alcohol 02/17/2016 Use: Never Substance Abuse 02/17/2016 Use: None Tobacco 01/24/2017 Use: Never smoker Exposure to Tobacco Smoke None Cigarette Smoking Last 365 Days No Reg Smoking Cessation Counseling No 02/08/2018 Use: Never smoker Ready to change: No Concerns about tobacco use in household: No Exposure to Tobacco Smoke None Cigarette Smoking Last 365 Days No Reg Smoking Cessation Counseling No . Physical Examination VS/Measurements Measurements from flowsheet : Measurements 02/08/2018 12:22 Heparin Dosing Weight (kg) 60.09 02/08/2018 12:18 Height 162.56 cm Height Collection Method Estimated Weight 68.182 kg Dosing Weight Difference Percent 20.001 % Dosing Wt Entered is >10% of Previous Wt Confirmed Dosing Weight Collection Method Estimated Body Surface Area 1.7546 m2 Body Mass Index 25.8 m2 Vitals Tmp(F) Pulse BP RR SpO2 FIO2 02/09 08:25 98.5 76 133/58 1 8 100 --- 02/08 23:16 97.7 78 97/54 17 98 --- 02/08 19:16 97.4 89 122/58 1 8 97 --- 02/08 18:15 98.3 83 202/82 1 8 100 --- 02/08 17:45 97.7 86 175/92 1 8 98 --- 24 Hr Tmax: 98.7F (37.06c) at 02/08 12:1 8 Vital Signs are the last 5 in the past 48 hours. ASSESSMENT and EXAM: General: in no apparent distress at this time. Eyes: Pupils equal, round and reactive to light. Eyes normal inspection. ENT: Ears normal. Nose normal. Pharynx normal. Neck: Normal inspection. No jugular venous distention. Neck supple. CVS: Heart sounds normal. Pulses normal. no murmurs Respiratory: No respiratory distress. Breath sounds normal. no wheezing Abdomen: Soft and nontender. no organomegaly Back: Normal inspection. Skin: Skin warm and dry. Normal skin color. Extremities: Extremities exhibit normal ROM. No lower extremity edema. Neuro: Oriented X 3. No motor deficit. Labs (Last four charted values) WBC 5.1 (FEB 09) 5.2 (FEB 09) 6.3 (FEB 08) Hgb L 8.0 (FEB 09) L 8.0 (FEB 09) L 8.6 (FEB 08) Hct L 24.2 (FEB 09) L 24.1 (FEB 09) L 26.3 (FEB 08) Plt L 123 (FEB 09) L 127 (FEB 09) L 123 (FEB 08) Na 141 (FEB 09) 141 (FEB 09) 139 (FEB 08) K H 5.3 (FEB 09) H 5.3 (FEB 09) 4.9 (FEB 08) CO2 27 (FEB 09) 26 (FEB 09) 26 (FEB 08) Cl 107 (FEB 09) 108 (FEB 09) 108 (FEB 08) Cr H 2.00 (FEB 09) H 2.00 (FEB 09) H 1.92 (FEB 08) BUN H 41 (FEB 09) H 41 (FEB 09) H 42 (FEB 08) Glucose Random H 179 (FEB 09) H 175 (FEB 09) H 200 (FEB 08) Mg H 2.5 (FEB 09) H 2.5 (FEB 08) Phos 4.2 (FEB 08) Ca L 8.0 (FEB 09) L 7.9 (FEB 09) L 8.2 (FEB 08) Troponin <0.02 (FEB 09) <0.02 (FEB 08) <0.02 (FEB 08) CK MB 1.8 (FEB 08) 1.8 (FEB 08) Total CK 70 (FEB 09) 82 (FEB 08) 89 (FEB 08) Impression: 1. Chest pain 2. CAD s/p PCI 2-3 years ago at OSH 3. Chronic diastolic congestive heart f ailure, with possible acute component 4. HTN 5. CKD 6. IDDM 7. Anemia 8. HCV cirrhosis 9. H/o CVA Plan: The patient is in observation Continue telemetry monitoring Cardiac enzymes are negative Her chest pain might be secondary to uncontrolled blood pressure Blood pressure is now in normal range Continue aspirin Start statin Start Coreg IV Lasix given for edema Hold ELIZABETH given acute kidney injury Renal has been consulted The acute kidney injury with increased creatinine is felt to be secondary to a UTI Continue IV antibiotics Continue sliding-scale insulin Reconcile home meds MEDICATIONS Scheduled Meds (7):aspirin (aspirin 81 mg tablet, enteric coated), atorvastatin, carvedilol, cefTRIAXone + sterile water 10 mL (Rocephin + sterile water 10 mL), furosemide (Lasix), insulin glargine, sodium chloride (Saline Flush 0.9%) Unscheduled Meds: None PRN Meds (20):Dextrose 50% in Water IV (Dextrose 50% Syringe), Dextrose 50% in Water IV (Dextrose 50% Syringe), acetaminophen, diphenhydrAMINE, glucagon, hydrALAZINE, insulin lispro, insulin lispro, insulin lispro, insulin lispro, insulin lispro, insulin lispro, insulin lispro, insulin lispro, insulin lispro, morphine Sulfate, nitroglycerin (nitroglycerin SL Tab), ondansetron, sodium chloride (Saline Flush 0.9%), sodium chloride (Saline Flush 0.9%) One Time Meds (4):(Completed) aspirin, (Completed) cefTRIAXone + sterile water 10 mL (Rocephin + sterile water 10 mL), (Completed) cloNIDine (cloNIDine 0.1 mg oral tablet), (Completed) nitroglycerin (nitroglycerin 2% topical ointment) Continuous Infusions: None Extracted from:Title: History and Physical Author: Derrick Bullock MD Date: 02/08/18 Impression and Plan - Chest pain - CAD s/p PCI 2-3 years ago at OSH - HFpEF - HTN - CKD - IDDM - Anemia - HCV cirrhosis - H/o CVA # Chest pain / CAD - EKG w/o any ischemic changes. - Possible her chest pain is d/t her unc ontrolled BP (SBP 190s-200s) - Control BP - Trend CE to r/o ACS - Continue ASA 81. Unclear why she is not on a statin. Start atorva 40 - Start coreg # HFpEF - Start coreg as above. - Given her edema, will give IV lasix 40 mg x 1 today. Aim for -1.5 L # HTN - Holding ELIZABETH-i given MÓNICA - Start on coreg. IV hydralazine prn # MÓNICA on CKD - Consult renal # IDDM - On SSI # Anemia - Appears at baseline. Medicine consult ed # Misc - Unclear why she is on sulfasalazine an d prednisone. Pt unsure herself. Hold for now. 02/11/2018 CLAY Jordan Extracted from:Title: Clinical Document Author: Alexi Wisdom MD Date: 01/31/17 Progress Note Nephrology SUBJECTIVE no complaints Physical Exam alert, oriented HEENT : peerla NECK: no jvd, no bruits, HEART : RRR no s3 no S4, no murmur, no rub LUNGS: no wheezes no rales, no rhonci ABDOMEN: NTND no organomegaly no hepatomegaly positive bowel sounds EXT: no clubbing no cyanosis no edema NEURO:no focalities, no sensory defecits, no motor defecits SKIN: no rash, no bruises ASSESSMENT 1. Diabetes mellitus. 2. Hypertension. 3. Hepatitis C. 4. Coronary artery disease and myocardi al infarction. 5. History of cerebrovascular accident. 6. MÓNICA 7. volume overload 8. Community-acquired pneumonia. 9. Diastolic congestive heart failure e xacerbation. improved creatinine 2.6>2.4>1.9>1.7 >1.4 today 1.4 improved urine output continue abx ok to go home with f/u appointments OBJECTIVE Vitals Tmp(F) Tmp(C) Ttype BP MAP Pulse RR SpO2 FIO2 ETCO2 01/31 11:05 98.4 36.89 oral 141/69 88 100 9 99 --- --- 01/31 10:05 ---- ---- ---- 72 100 16 100 1.0L/m --- 01/31 09:00 ---- ---- ---- 1 81 109 16 94 2.0L/m --- 01/31 08:00 ---- ---- ---- 1 74 109 16 --- --- --- 01/31 07:00 98.3 36.83 oral 133/63 78 99 15 100 3.0L/m --- 24 Hr Tmax: 99.0F (37.22c) at 01/31 00:0 0 Vital Signs are the last 5 in the past 48 hours. 24 Hr Tmin: 98.3F (36.83c) at 01/31 07: 00 Weights are the last 5 in 60 days, plus initial. Date Wt(kg) Wt(lb) Ht(cm) Ht(in) Method BMI BSA 01/24 (initial) 50.00 110.00 Estimated 20.8 1.47 01/24 154.94 61.00 Stated 24 Hr Point of Care Glucoses 01/31 1045 Glucose POC 117 H 01/31 0605 Glucose POC 176 H 01/31 0233 Glucose POC 247 H Most Recent Scores: 01/31/17 Jeffrey Coma Score 15 01/31/17 Pain Intensity NRS (0-10) 0 01/31/17 Petros Score 20 01/31/17 [facility] Fall Score 15 (all previously charted lines have been discontinued) (no surgical procedures documented) Input/Output Record In Out Bal 01/31 24hr Tot 0 0 0 01/30 24hr Tot 1051 4680 - 109 Scheduled Meds: None Unscheduled Meds: None PRN Meds: None One Time Meds: None Continuous Infusions: None Labs (Last four charted values) WBC 5.1 (JAN 31) 7.0 (JAN 29) 6.2 (JAN 28) 5.7 (JAN 27) Hgb L 8.2 (JAN 31) L 8.5 (JAN 29) L 8.5 (JAN 28) L 7.9 (JAN 27) Hct L 25.0 (JAN 31) L 25.5 (JAN 29) L 25.0 (JAN 28) L 23.3 (JAN 27) Plt 155 (JAN 31) 169 (JAN 29) 171 (JAN 28) 169 (JAN 27) Na 140 (JAN 30) 141 (JAN 29) 141 (JAN 28) 143 (JAN 27) K 4.0 (JAN 30) 4.3 (JAN 29) 4.0 (JAN 28) 4.2 (JAN 27) CO2 H 34 (JAN 30) H 35 (JAN 29) 32 (JAN 28) 29 (JAN 27) Cl 102 (JAN 30) 100 (JAN 29) 104 (JAN 28) 105 (JAN 27) Cr 1.30 (JAN 30) 1.40 (JAN 29) H 1.70 (JAN 28) H 1.90 (JAN 27) BUN H 24 (JAN 30) H 26 (JAN 29) H 31 (JAN 28) H 34 (JAN 27) Glucose Random H 109 (JAN 30) 98 (JAN 29) 71 (JAN 28) 95 (JAN 27) Mg H 2.5 (JAN 24) Phos H 4.8 (JAN 24) Ca L 8.1 (JAN 30) L 7.9 (JAN 29) L 8.2 (JAN 28) L 7.6 (JAN 27) PT H 15.0 (JAN 24) INR 1.16 (JAN 24) PTT 25.3 (JAN 24) Troponin 0.15 (JAN 24) CK MB 3.5 (JAN 24) Total CK H 194 (JAN 24) 01/31/2017 [facility] Extracted from:Title: Clinical Document Author: Rome Talbert DO Date: 01/18/17 Progress Daily [facility] Completed: Dec, 13:23 by Rome Talbert DO RM: 135 - 1D, SE C1A MARY SCHREIBER 67y (: 1950) F Attending: Rome Talbert DO Service: Internal Medicine Reason for Admission: ACUTE KIDNEY INJURY, DEHYDRATION, FEVER Working DRG: Renal failure w/o CC/PRISON Code status: None Specified=FULL CODE Current diet: Isolation: None Documented Allergies: NKDA SUBJECTIVE Patient seen and examined. Events noted overnight. Labs/Images reviewed doing ok, no other issues OBJECTIVE Labs (Last four charted values) WBC 5.1 (JAN 18) 7.5 (JAN 17) 9.3 (JAN 16) H 13.9 (JAN 15) Hgb L 8.1 (JAN 18) L 8.4 (JAN 17) L 9.0 (JAN 16) L 8.8 (JAN 15) Hct L 23.4 (JAN 18) L 24.4 (JAN 17) L 26.1 (JAN 16) L 25.9 (JAN 15) Plt 153 (JAN 18) 149 (JAN 17) L 125 (JAN 16) L 121 (JAN 15) Na 141 (JAN 18) 143 (JAN 17) 138 (JAN 16) 137 (JAN 15) K 4.0 (JAN 18) 4.0 (JAN 17) 3.6 (JAN 16) 3.5 (JAN 15) CO2 25 (JAN 18) 25 (JAN 17) 27 (JAN 16) 24 (JAN 15) Cl H 110 (JAN 18) H 110 (JAN 17) 107 (JAN 16) 105 (JAN 15) Cr 1.40 (JAN 18) 1.40 (JAN 17) 1.40 (JAN 16) H 1.60 (JAN 15) BUN 16 (JAN 18) 14 (JAN 17) 15 (JAN 16) 17 (JAN 15) Glucose Random H 120 (JAN 18) H 131 (JAN 17) H 283 (JAN 16) H 247 (JAN 15) Mg 1.9 (JAN 16) Phos 3.0 (JAN 16) Ca L 7.6 (JAN 18) L 7.4 (JAN 17) L 7.3 (JAN 16) L 7.3 (JAN 15) PT 13.2 (JAN 15) INR 0.98 (JAN 15) PTT 25.1 (JAN 15) Troponin <0.02 (JAN 16) <0.02 (JAN 16) <0.02 (JAN 15) CK MB 1.1 (JAN 15) Total CK 80 (JAN 15) ASSESSMENT and EXAM Gen: NAD, Alert, Awake HEENT: NC/AT, PERRLA, oral area clear and moist Neck: No LAD, No JVD, trachea midline Chest: CTAB, no c/w/r CV: RRR, S1, S2 GI: +BS, S, NT, ND, No organomegaly Ext: no c/c/ trace edema Neuro: AOx3, no gross deficits noted Skin: No notable rashes PLAN and TREATMENT cultures so far negative on abx Hep C - not on treatment - will need oupt f/u with GI or liver specialist no elevation of LFT's low albumin - poss from poor nutrtion vs liver cirrhosis US shows liver cirrhosis - likely from liver cirrhosi dc home with home health Bp improved DIAGNOSES and PROBLEMS Recurrent falls syncope and collapse - cardiogenic vs nerugenic vs vasovagal Fever - presume UTI with sepsis Uncontrolled DM2 severe dehydration Acute renal failure Hypoalbunemia - from severe PCM vs liver disease SIRS accelerated/malignant hypertension Ready for Discharge (Yes/No)? Poon still necessary (Yes/No): Line still necessary (Yes/No): 24hr Labs 01/18 1109 Glucose POC 132 H 01/18 0607 Glucose POC 101 H 01/18 0407 Glucose POC 123 H 01/18 0348 Glucose Lvl 120 H BUN 16 Creatinine Lvl 1.40 Sodium Lvl 141 Potassium Lvl 4.0 Chloride Lvl 110 H CO2 25 AGAP 10.0 Calcium Lvl 7.6 L eGFR 39 WBC 5.1 RBC 2.71 L Hgb 8.1 L Hct 23.4 L MCV 86.3 MCH 29.7 MCHC 34.4 RDW 13.5 Platelet 153 MPV 8.1 Segs 52.6 Monocytes 10.1 Lymphocytes 30.9 Eosinophils 6.0 H Basophils 0.4 Segs-Bands # 2.7 Lymphocytes # 1.6 Monocytes # 0.5 Eosinophils # 0.3 01/17 2104 Glucose POC 155 H 01/17 1608 Glucose POC 189 H 01/17 1541 Ammonia 18.0 01/17 0534 TSH 2.280 Vitamin B12 Lvl 528 Vitals Tmp(F) Pulse BP RR SpO2 FIO2 01/18 11:01 98.7 88 170/71 1 7 88 --- 01/18 07:13 98.5 82 156/70 1 7 96 --- 01/18 03:18 98.3 89 128/71 1 8 95 --- 01/17 23:46 98.1 100 163/73 18 95 --- 01/17 19:56 98.6 90 149/70 1 8 98 --- 24 Hr Tmax: 98.7F (37.06c) at 01/18 11:0 1 Vital Signs are the last 5 in the past 48 hours. Date Wt(kg) Wt(lb) Ht(cm) Ht(in) Method 01/15 (initial) 52.27 115.00 Measured 01/15 154.94 61.00 Stated I&O Record In Out Bal 01/18 24hr Tot 240 0 240 01/17 24hr Tot 1620 0 1620 Medications (23) Active Scheduled Meds (4): 01/16/17 amLODIPine (Norvasc) 5 mg PO Da dex 01/16/17 aspirin (aspirin 81 mg tablet, enteric coated) 81 mg PO Daily 01/15/17 cefTRIAXone + sodium chloride 0 .9% INJ 100 mL (Rocephin + sodium chloride 0.9% INJ 100 mL) 1 gm IVPB [id number] 200 ml/hr 01/16/17 insulin detemir 20 unit SUB-Q D aily 0 ml/hr Unscheduled Meds: None PRN Meds (18): 01/16/17 Dextrose 50% in Water IV (Dextr ose 50% Syringe) 12.5 gm IVP PRN 01/16/17 Dextrose 50% in Water IV (Dextr ose 50% Syringe) 25 gm IVP PRN 01/15/17 acetaminophen-hydrocodone (acet aminophen-hydrocodone 325 mg-5 mg oral tablet) 1 tab PO Q4H 01/16/17 glucagon 1 mg IM PRN 01/16/17 hydrALAZINE 10 mg IV Q6H 01/16/17 insulin aspart 2 unit SUB-Q TID -Before Meals 01/16/17 insulin aspart 4 unit SUB-Q TID -Before Meals 01/16/17 insulin aspart 6 unit SUB-Q TID -Before Meals 01/16/17 insulin aspart 8 unit SUB-Q TID -Before Meals 01/16/17 insulin aspart 10 unit SUB-Q TI D-Before Meals 01/16/17 insulin aspart 1 unit SUB-Q Bed time 01/16/17 insulin aspart 2 unit SUB-Q Bed time 01/16/17 insulin aspart 3 unit SUB-Q Bed time 01/16/17 insulin aspart 4 unit SUB-Q Bed time 01/17/17 meclizine 25 mg PO TID 01/15/17 ondansetron 4 mg IVP Q6H 01/15/17 sodium chloride (Saline Flush 0 .9%) 10 mL IVP PRN 01/15/17 sodium chloride (Saline Flush 0 .9%) 10 ml IVP PRN One Time Meds: None Continuous Infusions (1): 01/17/17 sodium chloride 0.9% 1000 ml IN J 1,000 mL 1,000 mL 60 ml/hr Extracted from:Title: Clinical Document Author: Juan Antonio More MD Date: 01/16/[address] [facility] Chief Complaint- syncope HPI-this is a 67-year-old female with remote history of CAD with prior DE and stents about 3 years ago she does not remember the full details of her cardiac history. She been stable from a cardiac standpoint for the last several years. She also has poorly controlled diabetes. Patient reports that she had fevers and sore throat over the last few days. Yesterday when she was walking to the bathroom she felt dizzy and lightheaded. When she went to the toilet she had further lightheadedness and actually passed out. In the emergency room her blood pressure was in the high side with systolic of 160s. She denied chest pain. Her EKG showed sinus rhythmwith no st changes She is ruled out for acute coronary syndrome Review of Systems General/Constitutional: Fatigue y Weakness y. Weight gain no. Headaches no. + fevers Allergy/Immunology: Colds no. Cough no. HEENT/Neck: Dizziness no. Change in vision no. Respiratory: Chest congestion no. Cough no. Pain with breathing no. Shortness of breath no. Swelling of the legs no. Wheezing no. Cardiovascular: Chest pain no. Claudication no. Dyspnea on exertion no. Palpitations no. Gastrointestinal: Abdominal pain no. Change in bowel habits no. Constipation no. Diarrhea no. Nausea no. Hematology: Easy bleeding no. Easy bruising no. Musculoskeletal: Back pain no. Myalgias no Past Medical History Stroke Myocardial infarct- 2 stents about 3 yrs ago Htn DM Cholelithiasis Past Surgical History Cholecystotomy Abdominal hysterectomy Cholecystectomy Past Family History No qualifying data available Past Social History prior smoker No alcohol or drug use No qualifying data available Medications Continuous Infusions (1): 01/15/17 sodium chloride 0.9% 1000 ml IN J 1,000 mL 1,000 mL 100 ml/hr Scheduled Meds (3): 01/16/17 amLODIPine (Norvasc) 5 mg PO Da dex 01/15/17 cefTRIAXone + sodium chloride 0 .9% INJ 100 mL (Rocephin + sodium chloride 0.9% INJ 100 mL) 1 gm IVPB [id number] 200 ml/hr 01/16/17 insulin detemir 20 unit SUB-Q D aily 0 ml/hr Allergies: NKDA Vitals Tmp(F) Pulse BP RR SpO2 FIO2 01/16 11:41 ---- 81 167/77 - - --- --- 01/16 11:40 ---- 80 184/77 - - --- --- 01/16 11:39 97.8 75 189/77 1 8 98 --- 01/16 07:12 97.8 69 153/81 1 7 99 --- 01/16 03:20 97.8 78 160/78 1 6 99 --- 24 Hr Tmax: 101.9F (38.83c) at 01/15 15: 53 Vital Signs are the last 5 in the past 48 hours. Physical exam General: Awake and Alert, NAD HEENT: Neck Supple, No JVD CVS: Regular rate, Normal S1S2 LUNGS: CTA, No rales or wheezing ABD: Soft, Non-tender, + BS EXT: No edema, 2+ pedal pulses Skin: No ulcers Neuro: Awake and Alert, Oriented x 3 Labs (Last four charted values) WBC 9.3 (JAN 16) H 13.9 (JAN 15) Hgb L 9.0 (JAN 16) L 8.8 (JAN 15) Hct L 26.1 (JAN 16) L 25.9 (JAN 15) Plt L 125 (JAN 16) L 121 (JAN 15) Na 138 (JAN 16) 137 (JAN 15) 136 (JAN 15) K 3.6 (JAN 16) 3.5 (JAN 15) 3.9 (JAN 15) CO2 27 (JAN 16) 24 (JAN 15) 25 (JAN 15) Cl 107 (JAN 16) 105 (JAN 15) 102 (JAN 15) Cr 1.40 (JAN 16) H 1.60 (JAN 15) H 1.70 (JAN 15) BUN 15 (JAN 16) 17 (JAN 15) 18 (JAN 15) Glucose Random H 283 (JAN 16) H 247 (JAN 15) H 292 (JAN 15) Mg 1.9 (JAN 16) Phos 3.0 (JAN 16) Ca L 7.3 (JAN 16) L 7.3 (JAN 15) L 7.8 (JAN 15) PT 13.2 (JAN 15) INR 0.98 (JAN 15) PTT 25.1 (JAN 15) Troponin <0.02 (JAN 16) <0.02 (JAN 16) <0.02 (JAN 15) CK MB 1.1 (JAN 15) Total CK 80 (JAN 15) EKG nsr Impression 67-year-old female with history of CAD p rior stent diabetes who presents with syncope and anemia as well as mild acute kidney injury from dehydration. Plan Syncope possibly from dehydration or vasovagal syncope. Given her history of cardiac disease we will monitor closely on telemetry. Her cardiac enzymes were negative for an ischemic event. We will check an echocardiogram. We will place her back on her cardiac medications. 01/18/2017 [facility] Extracted from:Title: Discharge Summary Author: Kyra Lema MD Date: 02/20/16 Discharge Summary Date of Admission: 02/18/2016 Date of Discharge: 02/19/2016 Admitting physician:Dr. Anthony Blair Physician at discharge: Dr. Kyra Lema Admitting diagnoses: 1. Syncope 2. Uncontrolled type 2 diabetes mellitus 3. Acute pancreatitis 4. Acute anterior 2nd rib fracture 5. Acute pain secondary to trauma 6. Acute kidney injury 7. Hypertension Discharge diagnoses: 1. Syncope 2. Uncontrolled type 2 diabetes mellitus 3. Acute pancreatitis 4. Acute anterior 2nd rib fracture 5. Acute pain secondary to trauma 6. Acute kidney injury 7. Hypertension Hospital course: Ms. Schreiber was admitted after a fall at home resulting in rib fracture. She was admitted for pain control. She has very poorly controlled diabetes and cirrhosis. She was taking large amounts of short and long acting insulin only about 2 x per week resulting in erratic glucose control and I suspect this contributed to her syncope. She was seen here by endocrinology and insulin regimen changed to lantus 20u daily which her can help administer before he goes to work. She was treated with IV fluids and pancreatitis and MÓNICA appear resolved. Procedures: none Consultations: DE endocrinology Physical examination: Gen: no acute distress. alert. HEENT: moist mucous membranes CV: RRR, no murmurs Resp: nonlabored respirations Skin: warm, dry, normal turgor Discharge medications: see discharge medication reconciliation form Discharge condition: good Followup: with Dr. Sneed in 3 weeks. with PCP in 1-2 weeks. I spoke to her sister in law, Zuly, who will help her in next few days. Time spent on discharge: 35 minutes The patient was examined by me on day of discharge. Extracted from:Title: Endocrine Author: Boyd Sneed MD Date: 02/20/16 Endocrine Consult Note: Patient Room: [place] [id number], 3C MARY SCHREIBER 66y (: 1950) F Attending: Kyra Lema MD Service: Internal Medicine DATE OF CONSULT: 02/20/2016 REFERRING PHYSICIAN: Dr Lema CONSULTING PHYSICIAN: Dr Sneed REASON FOR CONSULTATION: Type 2 diabetes CHIEF COMPLAINT: syncope HISTORY OF PRESENT ILLNESS: Ms. Schreiber is a 66 yo female with type 2 diabetes, h/o DE and cholecystectomy who presents with syncopal episode. DE was ruled out with cardiac enzymes and TTE with normal EF. CT head was negative. Patient also reported 2 weeks of nausea, vomiting and epigastric pain. Lipase was noted to be 1046 and patient was admitted with acute pancreatitis. In addition, blood glucose on admission was 660 with no anion gap. Currently on sliding scale insulin only. Regarding her diabetes, patient was diagnosed in 1973 during and was started on insulin at that time. She follows with her PCP for management. A1c was 13.2% on this admission. Patient states she takes Glargine 50 units at bedtime and Humalog 25 units in the morning only. States she was told to eat before all insulin doses. She reports decreased appetite and lost around 60 lbs in one month. She does not eat regularly. Admits to not taking insulin about 4- 5x per week. She has tingling in bilateral feet. She was told she had retinopathy on last eye exam and needed surgery. Has protein in the urine. History of DE 4 years ago but unknown if any stents placed. Mother and both sisters have diabetes. Father had DE, age 86. No thyroid problems. Today she is tolerating full po diet without nausea or vomiting. She is complaining of sternal chest pain and epigastric pain. PAST MEDICAL HISTORY: type 2 diabetes, h/o DE PAST SURGICAL HISTORY: cholecystectomy SOCIAL HISTORY: lives with a friend, denies smoking and alcohol FAMILY HISTORY: Mother and both sisters have diabetes. Father had DE, age 86. Allergies (1) Active Reaction NKDA None documented Medications (17) Active Scheduled Meds (5): 02/18/16 lidocaine topical (lidocaine to pical patch (5% film)) 1 patch TOP Daily 02/18/16 lisinopril 5 mg PO Daily 02/19/16 remove patch 1 patch TOP Q24H 02/17/16 sodium chloride (BD Normal Sali ne Flush) 10 mL IV Q12H 02/18/16 sodium chloride (Saline Flush 0 .9%) 10 ml IVP Q12H Unscheduled Meds: None PRN Meds (12): 02/17/16 Dextrose 50% in Water IV (Dextr ose 50% Syringe) 12.5 gm IVP PRN 02/17/16 Dextrose 50% in Water IV (Dextr ose 50% Syringe) 25 gm IVP PRN 02/18/16 acetaminophen-hydrocodone (Norc o 5/325 oral tablet) 1 tab PO Q6H 02/17/16 glucagon 1 mg IM PRN 02/17/16 insulin aspart 1 unit SUB-Q TID -Before Meals 02/17/16 insulin aspart 2 unit SUB-Q TID -Before Meals 02/17/16 insulin aspart 3 unit SUB-Q TID -Before Meals 02/17/16 insulin aspart 4 unit SUB-Q TID -Before Meals 02/17/16 insulin aspart 5 unit SUB-Q TID -Before Meals 02/17/16 morphine Sulfate 2 mg IV Q3H 02/17/16 sodium chloride (Saline Flush 0 .9%) 10 mL IVP PRN 02/17/16 sodium chloride (Saline Flush 0 .9%) 10 ml IVP PRN One Time Meds: None Continuous Infusions: None REVIEW OF SYSTEMS: GEN - no fatigue, no significant weight changes, no constitutional sxs, no fevers/chills EYES - no vision changes, no double vision, no blurry vision, no dryness EARS - no hearing changes NECK - no compression sxs, no dysphagia, no changes in voice, no deepening of voice, no lumps noted CVS - + chest pain, no palpitations, no orthopnea RESP - no cough, no wheezes, no SOB, no hemoptysis ABD - + abdominal pain, no nausea, no vomiting, no diarrhea, no constipation - no dysuria, no hematuria, no polyuria MSK - no back pain, no joint pains, no muscle aches NEURO - no chronic headaches, no tremors, no gait changes, no vision changes PSYCH - no SI/HI, no mood changes HEME/LYMPH - no easy bruising, no bleeding SKIN - no skin lesions, no rashes, or ulcers ENDO - no tremors, no palpitations, no thermal lability, no polydipsia, no fatigue PHYSICAL EXAMINATION: Vital Signs - Reviewed Vitals Tmp(F) Pulse BP RR SpO2 FIO2 02/19 11:50 98.4 78 154/78 1 8 96 --- 02/19 07:56 98.6 88 103/61 1 8 96 --- 02/19 05:10 97.9 73 104/61 1 8 98 --- 02/18 20:46 99.3 80 134/71 1 8 98 --- 02/18 20:30 ---- --- ----- - - 100 --- 24 Hr Tmax: 99.3F (37.39c) at 02/18 20:4 6 Vital Signs are the last 5 in the past 48 hours. Date Wt(kg) Wt(lb) Ht(cm) Ht(in) Method 02/16 (initial) 52.27 115.00 Estimated 02/16 152.40 60.00 Stated GEN: NAD, uncomfortable HEENT: periorbital edema, EOMI, decreased vision, dry mucous membranes, poor dentition Neck: supple, no thyromegaly or nodules palpated CV: regular rate and rhythym, no murmurs RESP: CTAB without wheezes, rhonchi, or rales ABD: soft, +BS, tender to palpation in epigastric region, nondistended EXT: no pitting edema, 1+ DP/PT pulses, dry skin, no open foot ulcers, scab over left 2nd MTP, decreased monofilament throughout Skin: warm, rash over left forearm Neuro: AAO x 3, CN II-XII grossly intact, no focal deficits DATA: 24hr Labs 02/19 1130 Glucose POC 352 H 02/19 0721 Glucose POC 178 H 02/19 0638 Glucose POC 192 H 02/19 0543 Sodium Lvl 142 Potassium Lvl 4.5 Chloride Lvl 113 H CO2 23 L AGAP 10.5 Glucose Lvl 183 H Creatinine Lvl 1.17 BUN 14 B/C Ratio 12 Total Protein 5.9 L Albumin Lvl 2.2 L Globulin 3.7 A/G Ratio 0.6 L Calcium Lvl 7.5 L ALT 14 AST 30 Alk Phos 85 Bili Total 0.4 eGFR 49 WBC 5.6 RBC 3.13 L Hgb 9.3 L Hct 27.4 L MCV 87.6 MCH 29.8 MCHC 34.0 RDW 13.1 Platelet 128 L MPV 8.5 Segs 49.5 Monocytes 8.3 Lymphocytes 35.3 Eosinophils 6.6 H Basophils 0.3 Segs-Bands # 2.8 Lymphocytes # 2.0 Monocytes # 0.5 Eosinophils # 0.4 02/18 2045 Glucose POC 235 H 02/18 1641 Glucose POC 226 H 02/18 1233 Glucose POC 157 H ASSESSMENT AND PLAN: Ms. Schreiber is a 66 yo female with type 2 diabetes (A1c 13.2%) complicated by retinopathy, neuropathy and h/o DE and HCV? cirrhosis who presents with syncopal episode and admitted with acute pancreatitis and HHS with BG of 660. Endocrine consulted for diabetes management. Type 2 diabetes with multiple complications, uncontrolled - Due to patient's noncompliance and dec reased appetite/po intake, would recommend a once daily basal insulin WITHOUT scheduled premeal insulin upon discharge. - Recommend to start glargine 20 units d aily - Recommend to start Metformin which can be titrated to max dose as tolerated - Can continue aspart low dose sliding s joanne with meals as inpatient - She should follow up with pcp for maria antonia ruiz of diabetes and health maintenance Thank you for the consult. Discussed with primary hospitalist team. Seen and discussed with Dr Naren Carter MD Endocrine fellow Endocrine Attending Teaching Note: I have interviewed and examined the patient, and I have reviewed the fellow's note and agree with the clinical findings, assessment, and plan. I have discussed the case with Dr. Carter. We were consulted for uncontrolled DM-2 complicated by retinopathy/neuropathy and presented with chest and abdominal pain. She appears to have an unstable living situation, has poor vision and is unable to see the insulin dosing well, and takes the insulin erratically. She has evidence of chronic liver disease from hep C with palmar erythema, has presumed pancreatitis and is starting to eat, and notes chest wall tenderness with evidence of rib fx - ?fall related. I agree with dosing insulin on a weight basis as discussed, adding metformin, and she will need home health evaluation. She appears to have had a fragility fracture and would evaluate for osteoporosis and check vitamin D level. She states she falls frequently. Extracted from:Title: Clinical Document Author: Candi Mcclelland Date: 02/18/16 Progress Note Patient Name: Mary Schreiber Date: 02/18/2016 Hospital Day Number: 2 S: 56yo with history of DM, HTN, DE, CVA, and cholelithiasis s/p cholecystecomy presented for syncope while walking to the restroom. She reported dizziness and epigastric pain once in the ED and had labs showing elevated glucose to 606 now 144 and elevated lipase to 1046 which has trended down to normal. She had no acute events overnight. Will transition to eating again and continue IV fluids. Will continue to hold BP medications. Contacted her physician's office ( Dr. Belkis Trammell) who state the patient's insulin regimen is different than reported. She is supposed to take Humalog 35u qam and qhs and Lantus 20U daily. O: Vitals Tmp(F) Pulse BP RR SpO2 FIO2 02/17 07:31 97.6 81 116/61 1 8 96 --- 02/17 03:38 98.7 91 153/76 1 8 99 --- 02/16 23:25 98.3 82 167/77 1 6 95 --- 02/16 23:15 ---- 85 ----- -- --- --- 02/16 22:27 ---- 93 126/81 1 8 97 --- 24 Hr Tmax: 98.7F (37.06c) at 02/17 03:3 8 Vital Signs are the last 5 in the past 48 hours. Exam: Gen: AOx3, NAD Head and Neck: Atraumatic, Normocephalic, No LAD Eyes: PERRL, EOMI ENT: OP clear, normal nasal mucosa Cardiac: regular rate and rhythm Chest: clear to auscultation bilaterally Abd: soft, non-distended, normal bowel sounds, tender to epigastric area Ext/Musk: no cyanosis, erythema, edema Neuro: CNII-XII intact, motor strength 5/5, sensation intact, becomes lightheaded with movement in bed Pertinent Labs/Imaging/Procedures: Echo, CTA head/neck, RUQ US Consults: Diabetic Education, Dike Supervisor A/P: 1.) Syncope - resolved - IV fluids 150/hr 2.) Hyperglycemia - Glucose q2hr - Repeat BMP - Continue Insulin Sliding scale - DM Education 3.) Acute Pancreatitis - RUQ US - showing cholecystectomy and c irrhosis - Trending Lipase - Will advance diet to clear liquids 4.) Hepatitis C + - Further outpatient workup. She is sup posed to see Dr. Garcia as referred by her PCP. Disposition: Will make inpatient admission Hospitalist is primary page [phone] with questions Addendum by Kyra Lema MD on 02/18/2016 21:55 I saw and examined Ms. Schreiber today. On my examination, tenderness was predominantly over sternum and likely due to injury and fall and worse with palpation or coughing. Epigastric tenderness had resolved. Otherwise, I agree with OMAYRA Mcclelland's documentation.HepC now with evidence of cirrhosis on ultrasound will need outpatient followup - she has been referred to [facility] by her PCP already. She has very poor understanding of managing her health, specifically diabetes. DM educator if possible, social work consultation. 02/20/2016 [facility] Plan of Care No Data Provided for This Section Social History Social History Date Source Social History TypeResponse Alcohol Never Substance Abuse Use: None. Smoking Status Never smoker; Ready to change: Yes; Concerns about tobacco use in household: Yes; Exposure to Tobacco Smoke None; Cigarette Smoking Last 365 Days Yes; Reg Smoking Cessation Counseling Yes entered on: 05/31/20 11/21/2019 [facility] Social History TypeResponse Alcohol Never Substance Abuse Use: None. Smoking Status Never smoker; Exposure to Tobacco Smoke None; Cigarette Smoking Last 365 Days No; Reg Smoking Cessation Counseling No entered on: 12/30/19 11/21/2019 [facility] Social History TypeResponse Substance Abuse Use: None. Alcohol Never Smoking Status Never smoker; Exposure to Tobacco Smoke None; Cigarette Smoking Last 365 Days No; Reg Smoking Cessation Counseling No entered on: 04/28/18 04/29/2018 [facility] Social History TypeResponse Substance Abuse Use: None. Alcohol Never Smoking Status Never smoker; Exposure to Tobacco Smoke None; Cigarette Smoking Last 365 Days No; Reg Smoking Cessation Counseling No 02/18/2016 [facility] Family History No Data Provided for This Section Advance Directives No Data Provided for This Section Functional Status No Data Provided for This Section
--- OUTSIDE RECORDS SUMMARY | 2020-06-17 13:07 | XMS REPORT | Summary of Care ---
Author Author [facility] Organization [facility] Address Unknown Phone Unavailable Encounter ISRAEL Schroeder(MALOU) [id number] Date(s): 11/21/19 - 11/26/19 [facility] [address] [place] [address]- [phone] Discharge Disposition: Home or Self Care Attending Physician: Jhonathan Guillermo DO Admitting Physician: Jhonathan Guillermo DO Vital Signs 1 2 3 Most recent to oldest [Reference Range]: 152.4 cm (11/21/19 3:13 PM) 157.48 cm (11/21/19 9:55 AM) Height 98.6 DegF (11/26/19 8:04 PM) 98.0 DegF (11/26/19 3:22 PM) 98.6 DegF (11/26/19 11:25 AM) Temperature Oral [96.4-99.1 DegF] 120/66 mmHg (11/26/19 8:04 PM) 116/55 mmHg (11/26/19 5:52 PM) 140/65 mmHg (11/26/19 3:24 PM) Blood Pressure [90-140/60-90 mmHg] 13 BRMIN *LOW* (11/26/19 3:22 PM) 11 BRMIN *LOW* (11/26/19 3:00 PM) 13 BRMIN *LOW* (11/26/19 2:52 PM) Respiratory Rate [14-20 BRMIN] 75 bpm (11/26/19 8:04 PM) 63 bpm (11/26/19 9:15 AM) 62 bpm (11/26/19 5:22 AM) Peripheral Pulse Rate [60-100 bpm] 53.5 kg (11/21/19 3:13 PM) 59.091 kg (11/21/19 9:55 AM) Weight 23.03 m2 (11/21/19 3:13 PM) 23.83 m2 (11/21/19 9:55 AM) Body Mass Index Problem List Condition Effective [...] Reactions, Alerts No Known Medication Allergies Medications acetaminophen 650 mg, 2 tab, Route: PO, Drug form: TAB, Q4H, Dosing Weight 59.091, kg, PRN Mayito n 1-3/Temp > 100.4 F, Start date: 11/21/19 12:44:00 PAIRER INSPECTOR, Duration: 30 day, Stop date: 12/21/19 12:43:00 PAIRER INSPECTOR, 0 Notes: Do not exceed 4 gm/day. (Same as: Tylenol) Start Date: 11/21/19 Stop Date: 11/26/19 Status: Discontinued Al hydroxide/Mg hydroxide/simethicone 30 mL, Route: PO, Drug Form: SUSP, ONCE, Start date: 11/23/19 12:38:00 PAIRER INSPECTOR, Stop date: 11/23/19 12:38:00 PAIRER INSPECTOR, 0 Notes: (aluminum hydroxide-magnesium hyd-simethicone [id number]/5ml 30 ml ud S US) Start Date: 11/23/19 Stop Date: 11/23/19 Status: Completed amLODIPine 10 mg, 1 tab, Route: PO, Drug form: TAB, Daily, Dosing Weight 53.5, kg, Start da te: 11/22/19 9:00:00 PAIRER INSPECTOR, Duration: 30 day, Stop date: 12/21/19 9:00:00 PAIRER INSPECTOR Start Date: 11/22/19 Stop Date: 11/22/19 Status: Canceled aspirin 81 mg tablet, enteric coated 81 mg, 1 tab, Route: PO, Drug form: ECTAB, Q24H, Dosing Weight 53.5, kg, Start d ate: 11/22/19 3:00:00 PAIRER INSPECTOR, Duration: 30 day, Stop date: 12/21/19 3:00:00 PAIRER INSPECTOR, 0 Notes: Do not crush or chew.(Same As: Ecotrin) Start Date: 11/22/19 Stop Date: 11/26/19 Status: Discontinued atorvastatin 40 mg, 1 tab, Route: PO, Drug form: TAB, Bedtime, Dosing Weight 53.5, kg, Start date: 11/22/19 21:00:00 PAIRER INSPECTOR, Duration: 30 day, Stop date: 12/21/19 21:00:00 PAIRER INSPECTOR, 0 Notes: (Same as: Lipitor) Start Date: 11/22/19 Stop Date: 11/26/19 Status: Discontinued cefepime 2 gm, Route: IVPB, ONCE, Dosing Weight 59.091, kg, Priority: STAT, Start date: 0 11/21/19 10:07:00 PAIRER INSPECTOR, Stop date: 11/21/19 10:07:00 PAIRER INSPECTOR, ABX Indication: ED - Velia pected Sepsis Start Date: 11/21/19 Stop Date: 11/21/19 Status: Completed cefTRIAXone + sterile water 10 mL 1 gm, Route: IVP, [id number], Dosing Weight 59.091, kg, Start date: 11/21/19 15:00: 00 PAIRER INSPECTOR, Duration: 7 day, Stop date: 11/27/19 15:00:00 PAIRER INSPECTOR, ABX Indication: Urina ry Tract Infection, 0 Notes: (Same As: Rocephin).Use with 100 mL NS and infuse over 30 min MEDICA TION WASTE Product Size: 1000 mgProduct Wasted: ___ mg Start Date: 11/21/19 Stop Date: 11/24/19 Status: Discontinued clopidogrel 75 mg, 1 tab, Route: PO, Drug form: TAB, BID, Dosing Weight 53.5, kg, Start date : 11/22/19 9:00:00 PAIRER INSPECTOR, Duration: 30 day, Stop date: 12/21/19 17:00:00 PAIRER INSPECTOR Start Date: 11/22/19 Stop Date: 11/22/19 Status: Deleted clopidogrel 75 mg, 1 tab, Route: PO, Drug form: TAB, Daily, Dosing Weight 53.5, kg, Start da te: 11/22/19 9:00:00 PAIRER INSPECTOR, Duration: 30 day, Stop date: 12/21/19 9:00:00 PAIRER INSPECTOR, 0 Notes: (Same As: Plavix) Start Date: 11/22/19 Stop Date: 11/26/19 Status: Discontinued clopidogrel 75 mg oral tablet 75 mg = 1 tab, PO, BID, # 90 tab, 3 Refill(s) Start Date: 11/21/19 Stop Date: 11/22/19 Status: Discontinued Dextrose 50% Syringe (D50W) 12.5 gm, 25 mL, Route: IVP, Drug Form: INJ, Dosing Weight 59.091, kg, PRN, PRN B lood Glucose Results, Start date: 11/21/19 14:48:00 PAIRER INSPECTOR, Duration: 30 day, Stop date: 12/21/19 14:47:00 PAIRER INSPECTOR, 0 Start Date: 11/21/19 Stop Date: 11/26/19 Status: Discontinued Dextrose 50% Syringe (D50W) 25 gm, 50 mL, Route: IVP, Drug Form: INJ, Dosing Weight 59.091, kg, PRN, PRN Blo od Glucose Results, Start date: 11/21/19 14:48:00 PAIRER INSPECTOR, Duration: 30 day, Stop da te: 12/21/19 14:47:00 PAIRER INSPECTOR, 0 Start Date: 11/21/19 Stop Date: 11/26/19 Status: Discontinued Dextrose 50% Syringe (D50W) 12.5 gm, 25 mL, Route: IVP, Drug Form: INJ, Dosing Weight 59.091, kg, PRN, PRN B lood Glucose Results, Start date: 11/21/19 12:44:00 PAIRER INSPECTOR, Duration: 30 day, Stop date: 12/21/19 12:43:00 PAIRER INSPECTOR, 0 Start Date: 11/21/19 Stop Date: 11/25/19 Status: Discontinued Dextrose 50% Syringe (D50W) 25 gm, 50 mL, Route: IVP, Drug Form: INJ, Dosing Weight 59.091, kg, PRN, PRN Blo od Glucose Results, Start date: 11/21/19 12:44:00 PAIRER INSPECTOR, Duration: 30 day, Stop da te: 12/21/19 12:43:00 PAIRER INSPECTOR, 0 Start Date: 11/21/19 Stop Date: 11/25/19 Status: Discontinued Diflucan 200 mg, 100 mL, Route: IVPB, Drug form: INJ, [id number], Dosing Weight 53.5, kg, St art date: 11/25/19 12:00:00 PAIRER INSPECTOR, Duration: 10 day, Stop date: 12/04/19 12:00:00 PAIRER INSPECTOR, ABX Indication: Skin/Soft Tissue Infection, 0 Notes: (Same as: Diflucan) Do not refrigerate Start Date: 11/25/19 Stop Date: 11/26/19 Status: Discontinued famotidine 20 mg oral tablet 20 mg, 1 tab, Route: PO, Drug form: TAB, Bedtime, Dosing Weight 53.5, kg, Start date: 11/22/19 21:00:00 PAIRER INSPECTOR, Duration: 30 day, Stop date: 12/21/19 21:00:00 PAIRER INSPECTOR, 0 Notes: (Same as: Pepcid) Start Date: 11/22/19 Stop Date: 11/23/19 Status: Voided With Results fluconazole 100 mg oral tablet 100 mg = 1 tab, PO, Daily, X 10 day, # 10 tab, 0 Refill(s), Pharmacy: [facility] #[id number] Start Date: 11/26/19 Stop Date: 12/06/19 Status: Ordered furosemide 80 mg oral tablet 80 mg = 1 tab, PO, BID, # 90 tab, 3 Refill(s) Start Date: 11/21/19 Status: Ordered gabapentin 100 mg oral capsule 100 mg, 1 cap, Route: PO, Drug form: CAP, Bedtime, Dosing Weight 53.5, kg, Start date: 11/22/19 21:00:00 PAIRER INSPECTOR, Duration: 30 day, Stop date: 12/21/19 21:00:00 PAIRER INSPECTOR, 0 Notes: (Same as: Neurontin) Start Date: 11/22/19 Stop Date: 11/26/19 Status: Discontinued GI cocktail (aluminum hydroxide/magnesium hydroxide/lidocaine/simethicone) 45 ml, Route: PO, Drug Form: SUSP, Dosing Weight 53.5, kg, ONCE, Routine, Start date: 11/23/19 12:28:00 PAIRER INSPECTOR, Stop date: 11/23/19 12:28:00 PAIRER INSPECTOR Start Date: 11/23/19 Stop Date: 11/23/19 Status: Deleted glucagon 1 mg, Route: IM, Drug form: PDR/INJ, PRN, Dosing Weight 59.091, kg, PRN Blood Gl ucose Results, Start date: 11/21/19 14:48:00 PAIRER INSPECTOR, Duration: 30 day, Stop date: 0 12/21/19 14:47:00 PAIRER INSPECTOR, 0 Start Date: 11/21/19 Stop Date: 11/26/19 Status: Discontinued glucagon 1 mg, Route: IM, Drug form: PDR/INJ, PRN, Dosing Weight 59.091, kg, PRN Blood Gl ucose Results, Start date: 11/21/19 12:44:00 PAIRER INSPECTOR, Duration: 30 day, Stop date: 0 12/21/19 12:43:00 PAIRER INSPECTOR, 0 Start Date: 11/21/19 Stop Date: 11/25/19 Status: Discontinued heparin 5000 units/mL injectable solution 5,000 unit, 1 mL, Route: SUB-Q, Drug form: INJ, Q12H, Dosing Weight 59.091, kg, Start date: 11/21/19 21:00:00 PAIRER INSPECTOR, Duration: 30 day, Stop date: 12/21/19 9:00:00 PAIRER INSPECTOR, 0 Notes: porcine heparin Start Date: 11/21/19 Stop Date: 11/26/19 Status: Discontinued heparin 5000 units/mL injectable solution 5,000 unit, 1 mL, Route: SUB-Q, Drug form: INJ, Q8H, Dosing Weight 59.091, kg, S tart date: 11/21/19 16:00:00 PAIRER INSPECTOR, Duration: 30 day, Stop date: 12/21/19 8:00:00 PAIRER INSPECTOR, 0 Notes: porcine heparin Start Date: 11/21/19 Stop Date: 11/21/19 Status: Canceled Imodium A-D 4 mg, 2 cap, Route: PO, Drug form: CAP, ONCE, Dosing Weight 53.5, kg, Start date : 11/23/19 1:31:00 PAIRER INSPECTOR, Stop date: 11/23/19 1:31:00 PAIRER INSPECTOR, 0 Notes: (Same as: Imodium) MAX adult dose is 8 caps/day Start Date: 11/23/19 Stop Date: 11/23/19 Status: Completed insulin glargine 100 units/mL subcutaneous solution 10 unit, SUB-Q, Bedtime, # 10 mL, 0 Refill(s) Start Date: 11/21/19 Status: Ordered insulin lispro 1 unit, 0.01 mL, Route: SUB-Q, Drug form: SOLN, TID-Before Meals, Dosing Weight 59.091, kg, PRN Blood Glucose Results, Start date: 11/21/19 14:48:00 PAIRER INSPECTOR, Durati on: 30 day, Stop date: 12/21/19 14:47:00 PAIRER INSPECTOR, 0 Notes: (Same as: Humalog) Roll in palms of hands gently; Do not shake vigorously . WASTE: F/P - Black; E - Municipal Trash BinStable for 28 days at room [facility].Expires in days from Date Start Date: 11/21/19 Stop Date: 11/26/19 Status: Discontinued insulin lispro 2 unit, 0.02 mL, Route: SUB-Q, Drug form: SOLN, TID-Before Meals, Dosing Weight 59.091, kg, PRN Blood Glucose Results, Start date: 11/21/19 14:48:00 PAIRER INSPECTOR, Durati on: 30 day, Stop date: 12/21/19 14:47:00 PAIRER INSPECTOR, 0 Notes: (Same as: Humalog) Roll in palms of hands gently; Do not shake vigorously . WASTE: F/P - Black; E - Municipal Trash BinStable for 28 days at room [facility].Expires in days from Date Start Date: 11/21/19 Stop Date: 11/26/19 Status: Discontinued insulin lispro 3 unit, 0.03 mL, Route: SUB-Q, Drug form: SOLN, TID-Before Meals, Dosing Weight 59.091, kg, PRN Blood Glucose Results, Start date: 11/21/19 14:48:00 PAIRER INSPECTOR, Durati on: 30 day, Stop date: 12/21/19 14:47:00 PAIRER INSPECTOR, 0 Notes: (Same as: Humalog) Roll in palms of hands gently; Do not shake vigorously . WASTE: F/P - Black; E - Municipal Trash BinStable for 28 days at room [facility].Expires in days from Date Start Date: 11/21/19 Stop Date: 11/26/19 Status: Discontinued insulin lispro 4 unit, 0.04 mL, Route: SUB-Q, Drug form: SOLN, TID-Before Meals, Dosing Weight 59.091, kg, PRN Blood Glucose Results, Start date: 11/21/19 14:48:00 PAIRER INSPECTOR, Durati on: 30 , Stop date: 12/21/19 14:47:00 PAIRER INSPECTOR, 0 Notes: (Same as: Humalog) Roll in palms of hands gently; Do not shake vigorously . WASTE: F/P - Black; E - Municipal Trash BinStable for 28 days at [facility].Expires in days from Date Start Date: 11/21/19 Stop Date: 11/26/19 Status: Discontinued insulin lispro 5 unit, 0.05 mL, Route: SUB-Q, Drug form: SOLN, TID-Before Meals, Dosing Weight 59.091, kg, PRN Blood Glucose Results, Start date: 11/21/19 14:48:00 PAIRER INSPECTOR, Durati on: 30 , Stop date: 12/21/19 14:47:00 PAIRER INSPECTOR, 0 Notes: (Same as: Humalog) Roll in palms of hands gently; Do not shake vigorously . WASTE: F/P - Black; E - Municipal Trash BinStable for 28 days at [facility].Expires in days from Date Start Date: 11/21/19 Stop Date: 11/26/19 Status: Discontinued insulin lispro 1 unit, 0.01 mL, Route: SUB-Q, Drug form: SOLN, Bedtime, Dosing Weight 53.5, kg, PRN Blood Glucose Results, Start date: 11/24/19 22:51:00 PAIRER INSPECTOR, Duration: 30 day, Stop date: 12/24/19 22:50:00 PAIRER INSPECTOR, 0 Notes: (Same as: Humalog) Roll in palms of hands gently; Do not shake vigorously . WASTE: F/P - Black; E - Municipal Trash BinStable for 28 days at [facility].Expires in days from Date Start Date: 11/24/19 Stop Date: 11/26/19 Status: Discontinued insulin lispro 2 unit, 0.02 mL, Route: SUB-Q, Drug form: SOLN, Bedtime, Dosing Weight 53.5, kg, PRN Blood Glucose Results, Start date: 11/24/19 22:51:00 PAIRER INSPECTOR, Duration: 30 day, Stop date: 12/24/19 22:50:00 PAIRER INSPECTOR, 0 Notes: (Same as: Humalog) Roll in palms of hands gently; Do not shake vigorously . WASTE: F/P - Black; E - Municipal Trash BinStable for 28 days at [facility].Expires in days from Date Start Date: 11/24/19 Stop Date: 11/26/19 Status: Discontinued insulin lispro 3 unit, 0.03 mL, Route: SUB-Q, Drug form: SOLN, Bedtime, Dosing Weight 53.5, kg, PRN Blood Glucose Results, Start date: 11/24/19 22:51:00 PAIRER INSPECTOR, Duration: 30 day, Stop date: 12/24/19 22:50:00 PAIRER INSPECTOR, 0 Notes: (Same as: Humalog) Roll in palms of hands gently; Do not shake vigorously . WASTE: F/P - Black; E - Municipal Trash BinStable for 28 days at [facility].Expires in days from Date Start Date: 11/24/19 Stop Date: 11/26/19 Status: Discontinued insulin lispro 4 unit, 0.04 mL, Route: SUB-Q, Drug form: SOLN, Bedtime, Dosing Weight 53.5, kg, PRN Blood Glucose Results, Start date: 11/24/19 22:51:00 PAIRER INSPECTOR, Duration: 30 day, Stop date: 12/24/19 22:50:00 PAIRER INSPECTOR, 0 Notes: (Same as: Humalog) Roll in palms of hands gently; Do not shake vigorously . WASTE: F/P - Black; E - Municipal Trash BinStable for 28 days at room tempera ture.Expires in days from Date Start Date: 11/24/19 Stop Date: 11/26/19 Status: Discontinued Keflex 250 mg, 1 cap, Route: PO, Drug form: CAP, [id number], Dosing Weight 53.5, kg, Start date: 11/24/19 10:00:00 PAIRER INSPECTOR, Duration: 30 day, Stop date: 12/23/19 10:00:00 PAIRER INSPECTOR, 0 Notes: Take on empty stomach. (Same As: Keflex) Start Date: 11/24/19 Stop Date: 11/25/19 Status: Discontinued Keflex 250 mg oral capsule 250 mg = 1 cap, PO, BID, X 10 day, # 20 cap, 0 Refill(s), Pharmacy: [facility] #[id number] Start Date: 11/26/19 Stop Date: 12/06/19 Status: Ordered Keflex 500 mg oral capsule 500 mg = 1 cap, PO, BID, X 7 day, # 14 cap, 0 Refill(s), Pharmacy: [facility] #[id number] Start Date: 11/23/19 Stop Date: 11/25/19 Status: Discontinued Lovenox 40 mg, Route: SUB-Q, Drug form: INJ, [id number], Dosing Weight 59.091, kg, Start d ate: 11/21/19 13:00:00 PAIRER INSPECTOR, Duration: 30 day, Stop date: 12/20/19 13:00:00 PAIRER INSPECTOR Start Date: 11/21/19 Stop Date: 11/21/19 Status: Discontinued metoprolol tartrate 12.5 mg, Route: PO, Drug form: TAB, Q12H, Dosing Weight 53.5, kg, Start date: 9:00:00 PAIRER INSPECTOR, Duration: 30 day, Stop date: 12/21/19 21:00:00 PAIRER INSPECTOR Start Date: 11/22/19 Stop Date: 11/22/19 Status: Canceled Norvasc 10 mg, 2 tab, Route: PO, Drug form: TAB, Daily, Dosing Weight 53.5, kg, Priority : NOW, Start date: 11/24/19 9:21:00 PAIRER INSPECTOR, Duration: 30 day, Stop date: 12/24/19 9 :00:00 PAIRER INSPECTOR, 0 Notes: (Same as: Norvasc) Start Date: 11/24/19 Stop Date: 11/24/19 Status: Discontinued Omnipaque 300 injectable solution 50 mL, Route: PO, Drug Form: SOLN, Dosing Weight 53.5, kg, ONCALL, GFR > 45 mL/min, Start date: 11/22/19 11:00:00 PAIRER INSPECTOR, Duration: 1 doses or times, 0 Notes: (Same as:Omnipaque 300).WASTE: F/P - Black; E - Municipal Trash Bin For oral use only Start Date: 11/22/19 Stop Date: 11/26/19 Status: Discontinued ondansetron 4 mg, 2 mL, Route: IVP, Drug form: INJ, Q8H, Dosing Weight 59.091, kg, PRN Nause a & Vomiting, Start date: 11/21/19 12:44:00 PAIRER INSPECTOR, Duration: 30 day, Stop date: 12/21/19 12:43:00 PAIRER INSPECTOR, 0 Notes: (Same as: Rosanne) MEDICATION WASTE Product Size: 4 mgProduct Was lorena: ___ mg Start Date: 11/21/19 Stop Date: 11/26/19 Status: Discontinued propranolol 10 mg, 1 tab, Route: PO, Drug form: TAB, Q12H, Dosing Weight 53.5, kg, Start blake e: 11/25/19 21:00:00 PAIRER INSPECTOR, Duration: 30 day, Stop date: 12/25/19 9:00:00 PAIRER INSPECTOR, 0 Notes: Give with food.(Same as: Inderal) Start Date: 11/25/19 Stop Date: 11/26/19 Status: Discontinued propranolol 10 mg oral tablet 10 mg = 1 tab, PO, Q12H, # 60 tab, 0 Refill(s), Pharmacy: [facility] # [id number] Start Date: 11/26/19 Stop Date: 12/26/19 Status: Ordered Protonix 40 mg, 1 tab, Route: PO, Drug form: ECTAB, BID, Dosing Weight 53.5, kg, Start da te: 11/24/19 9:00:00 PAIRER INSPECTOR, Duration: 30 day, Stop date: 12/23/19 17:00:00 PAIRER INSPECTOR, 0 Notes: Tablet should not be chewed or crushed.(Same as: Protonix) Start Date: 11/24/19 Stop Date: 11/26/19 Status: Discontinued Protonix 40 mg, 1 tab, Route: PO, Drug form: ECTAB, Daily, Dosing Weight 53.5, kg, Priori ty: NOW, Start date: 11/23/19 12:29:00 PAIRER INSPECTOR, Duration: 30 day, Stop date: 0 9:00:00 PAIRER INSPECTOR, 0 Notes: Tablet should not be chewed or crushed.(Same as: Protonix) Start Date: 11/23/19 Stop Date: 11/23/19 Status: Discontinued Protonix 40 mg oral enteric coated tablet 40 mg = 1 tab, PO, BID, # 60 tab, 0 Refill(s), Pharmacy: [facility] #[id number] Start Date: 11/26/19 Stop Date: 12/26/19 Status: Ordered Rocephin + sterile water 10 mL 1 gm, Route: IVP, [id number], Dosing Weight 53.5, kg, Start date: 11/26/19 9:00:00 PAIRER INSPECTOR, Duration: 7 day, Stop date: 12/02/19 9:00:00 PAIRER INSPECTOR, ABX Indication: Urinary T ract Infection, 0 Notes: (Same As: Rocephin).Use with 100 mL NS and infuse over 30 min MEDICA TION WASTE Product Size: 1000 mgProduct Wasted: ___ mg Start Date: 11/26/19 Stop Date: 11/26/19 Status: Discontinued Sodium Chloride 0.9% IV 1,000 mL 1,000 mL, Rate: 75 ml/hr, Infuse over: 13.3 hr, Route: IV, Dosing Weight 53.5 kg , Total Volume: 1,000, Start date: 11/25/19 10:58:00 PAIRER INSPECTOR, Duration: 1 day, Stop date: 11/26/19 10:57:00 PAIRER INSPECTOR, 1.52, m2, 0 Start Date: 11/25/19 Stop Date: 11/25/19 Status: Discontinued Tylenol 975 mg, Route: [place], Drug form: SUPP, ONCE, Dosing Weight 59.091, kg, Priority: ST AT, Start date: 11/21/19 10:06:00 PAIRER INSPECTOR, Stop date: 11/21/19 10:06:00 PAIRER INSPECTOR Start Date: 11/21/19 Stop Date: 11/21/19 Status: Discontinued Tylenol 650 mg, 1 supp, Route: [place], Drug form: SUPP, ONCE, Dosing Weight 59.091, kg, Star t date: 11/21/19 11:13:00 PAIRER INSPECTOR, Stop date: 11/21/19 11:13:00 PAIRER INSPECTOR, 0 Notes: Max acetaminophen = 4000 mg/day (4 gm/day). (Same as: Tylenol) Start Date: 11/21/19 Stop Date: 11/21/19 Status: Completed Xylocaine Viscous 2% mucous membrane solution 15 mL, Route: PO, ONCE, Drug form: SOLN, Start date: 11/23/19 12:38:00 PAIRER INSPECTOR, Stop date: 11/23/19 12:38:00 PAIRER INSPECTOR, 0 Notes: (Same as: Xylocaine) Start Date: 11/23/19 Stop Date: 11/23/19 Status: Completed Results 1 2 3 Most recent to oldest [Reference Range]: 2.0 K/CMM (11/25/19 6:34 AM) 3.3 K/CMM (11/22/19 12:32 PM) 4.8 K/CMM (11/21/19 10:14 AM) Neutrophils # [1.5-8.1 K/CMM] 1.1 K/CMM (11/25/19 6:34 AM) 1.3 K/CMM (11/22/19 12:32 PM) 1.6 K/CMM (11/21/19 10:14 AM) Lymphocytes # [1.0-5.5 K/CMM] 0.5 K/CMM (11/25/19 6:34 AM) 0.6 K/CMM (11/22/19 12:32 PM) 0.7 K/CMM (11/21/19 10:14 AM) Monocytes # [0.0-0.8 K/CMM] 0.4 K/CMM (11/25/19 6:34 AM) 0.4 K/CMM (11/22/19 12:32 PM) 0.4 K/CMM (11/21/19 10:14 AM) Eosinophils # [0.0-0.5 K/CMM] 0.1 K/CMM (11/21/19 10:14 AM) Basophils # [0.0-0.2 K/CMM] slight *NA* (11/21/19 10:14 AM) Large Plt 0.1 mg/dL (11/23/19 7:37 PM) Bili Indirect [0.0-1.0 mg/dL] 2b *NA* (11/23/19 7:37 PM) HCV Genotype Comment 1 *NA* (11/23/19 7:37 PM) HCV Genotype Comment 9 mL/min/1.73m2 2 *NA* (11/25/19 6:34 AM) 8 mL/min/1.73m2 3 *NA* (11/22/19 12:32 PM) 6 mL/min/1.73m2 4 *NA* (11/21/19 10:14 AM) eGFR 0.6 *LOW* (11/25/19 6:34 AM) 0.6 *LOW* (11/23/19 7:37 PM) 0.7 (11/21/19 10:14 AM) A/G Ratio [0.7-1.6] 1.9 ng/mL (11/23/19 7:37 PM) AFP TM [0.0-11.0 ng/mL] 3.4 g/dL *LOW* (11/25/19 6:34 AM) 3.2 g/dL *LOW* (11/23/19 7:37 PM) 3.7 g/dL (11/21/19 10:14 AM) Albumin Lvl [3.5-5.0 g/dL] 180 unit/L *HI* (11/25/19 6:34 AM) 155 unit/L *HI* (11/23/19 7:37 PM) 171 unit/L *HI* (11/21/19 10:14 AM) Alk Phos [39-136 unit/L] 20 unit/L (11/25/19 6:34 AM) 18 unit/L (11/23/19 7:37 PM) 27 unit/L (11/21/19 10:14 AM) ALT [0-65 unit/L] 39.0 uMol/L (11/23/19 7:37 PM) 34.0 uMol/L (11/21/19 10:14 AM) Ammonia [<=45.0 uMol/L] 10.0 mEq/L (11/25/19 6:34 AM) 10.7 mEq/L (11/22/19 12:32 PM) 10.5 mEq/L (11/21/19 10:14 AM) AGAP [10.0-20.0 mEq/L] 30 unit/L (11/25/19 6:34 AM) 29 unit/L (11/23/19 7:37 PM) 51 unit/L *HI* (11/21/19 10:14 AM) AST [0-37 unit/L] 4 *LOW* (11/25/19 6:34 AM) 4 *LOW* (11/21/19 10:14 AM) B/C Ratio [6-25] 0.6 % (11/25/19 6:34 AM) 0.4 % (11/22/19 12:32 PM) 0.7 % (11/21/19 10:14 AM) Basophils [0.0-1.0 %] 17 mg/dL (11/25/19 6:34 AM) 18 mg/dL (11/22/19 12:32 PM) 26 mg/dL *HI* (11/21/19 10:14 AM) BUN [7-22 mg/dL] 8.7 mg/dL (11/25/19 6:34 AM) 9.0 mg/dL (11/22/19 12:32 PM) 9.1 mg/dL (11/21/19 10:14 AM) Calcium Lvl [8.5-10.5 mg/dL] 89 unit/L (11/21/19 10:14 AM) Total CK [12-191 unit/L] 101 mEq/L (11/25/19 6:34 AM) 99 mEq/L (11/22/19 12:32 PM) 99 mEq/L (11/21/19 10:14 AM) Chloride Lvl [95-109 mEq/L] 29 mEq/L (11/25/19 6:34 AM) 30 mEq/L (11/22/19 12:32 PM) 32 mEq/L (11/21/19 10:14 AM) CO2 [24-32 mEq/L] 4.76 mg/dL *HI* (11/25/19 6:34 AM) 5.15 mg/dL *HI* (11/22/19 12:32 PM) 6.19 mg/dL *HI* (11/21/19 10:14 AM) Creatinine Lvl [0.50-1.40 mg/dL] 0.2 mg/dL (11/23/19 7:37 PM) Bili Direct [0.0-0.3 mg/dL] 10.3 % *HI* (11/25/19 6:34 AM) 7.3 % *HI* (11/22/19 12:32 PM) 5.9 % *HI* (11/21/19 10:14 AM) Eosinophils [0.0-4.0 %] 5.3 g/dL *HI* (11/25/19 6:34 AM) 5.0 g/dL *HI* (11/23/19 7:37 PM) 5.4 g/dL *HI* (11/21/19 10:14 AM) Globulin [2.7-4.2 g/dL] 155 mg/dL *HI* (11/25/19 6:34 AM) 188 mg/dL *HI* (11/22/19 12:32 PM) 117 mg/dL *HI* (11/21/19 10:14 AM) Glucose Lvl [70-99 mg/dL] Negative *NA* (11/23/19 7:37 PM) Hep A IgM [Negative] Negative *NA* (11/23/19 7:37 PM) Hep B Core IgM [Negative] Negative *NA* (11/23/19 7:37 PM) Negative *NA* (11/21/19 5:19 PM) Hep Bs Ag [Negative] 37.6 % (11/25/19 6:34 AM) 36.3 % (11/22/19 12:32 PM) 35.8 % *LOW* (11/21/19 10:14 AM) Hct [36.0-48.0 %] Positive *ABN* (11/23/19 7:37 PM) Hep C Ab [Negative] 12.6 g/dL (11/25/19 6:34 AM) 12.1 g/dL (11/22/19 12:32 PM) 11.8 g/dL *LOW* (11/21/19 10:14 AM) Hgb [12.0-16.0 g/dL] 1.00 (11/25/19 6:34 AM) 1.03 (11/21/19 10:14 AM) INR [0.85-1.17] 4.0 mEq/L (11/25/19 6:34 AM) 3.7 mEq/L (11/22/19 12:32 PM) 4.5 mEq/L (11/21/19 10:14 AM) Potassium Lvl [3.5-5.1 mEq/L] 1.2 mMol/L (11/21/19 10:14 AM) Lactic Acid Lvl [0.5-2.2 mMol/L] 26.7 % (11/25/19 6:34 AM) 23.7 % (11/22/19 12:32 PM) 21.1 % (11/21/19 10:14 AM) Lymphocytes [20.0-40.0 %] 1+ *ABN* (11/22/19 12:32 PM) Macrocyte [None Seen] 32.7 pg *HI* (11/25/19 6:34 AM) 33.0 pg *HI* (11/22/19 12:32 PM) 32.4 pg *HI* (11/21/19 10:14 AM) MCH [27.0-31.0 pg] 33.4 g/dL (11/25/19 6:34 AM) 33.2 g/dL (11/22/19 12:32 PM) 32.9 g/dL (11/21/19 10:14 AM) MCHC [32.0-36.0 g/dL] 97.9 fL (11/25/19 6:34 AM) 99.2 fL *HI* (11/22/19 12:32 PM) 98.5 fL *HI* (11/21/19 10:14 AM) MCV [80.0-98.0 fL] 12.2 % *HI* (11/25/19 6:34 AM) 10.1 % (11/22/19 12:32 PM) 9.2 % (11/21/19 10:14 AM) Monocytes [2.0-12.0 %] 8.7 fL (11/25/19 6:34 AM) 8.5 fL (11/22/19 12:32 PM) 9.1 fL (11/21/19 10:14 AM) MPV [7.4-10.4 fL] 136 mEq/L (11/25/19 6:34 AM) 136 mEq/L (11/22/19 12:32 PM) 137 mEq/L (11/21/19 10:14 AM) Sodium Lvl [135-145 mEq/L] 87 K/CMM *LOW* (11/25/19 6:34 AM) 112 K/CMM *LOW* (11/22/19 12:32 PM) 123 K/CMM *LOW* (11/21/19 10:14 AM) Platelet [133-450 K/CMM] 50.2 % (11/25/19 6:34 AM) 58.5 % (11/22/19 12:32 PM) 63.1 % (11/21/19 10:14 AM) Segs [45.0-75.0 %] 8.7 g/dL *HI* (11/25/19 6:34 AM) 8.2 g/dL (11/23/19 7:37 PM) 9.1 g/dL *HI* (11/21/19 10:14 AM) Total Protein [6.4-8.4 g/dL] 13.2 seconds (11/25/19 6:34 AM) 13.5 seconds (11/21/19 10:14 AM) PT [12.0-14.7 seconds] 33.5 seconds (11/25/19 6:34 AM) 27.5 seconds (11/21/19 10:14 AM) PTT [22.9-35.8 seconds] 3.84 M/CMM *LOW* (11/25/19 6:34 AM) 3.66 M/CMM *LOW* (11/22/19 12:32 PM) 3.64 M/CMM *LOW* (11/21/19 10:14 AM) RBC [4.20-5.40 M/CMM] Normal (1/24/20 10:14 AM) RBC Morph [Normal] 16.5 % *HI* (11/25/19 6:34 AM) 16.7 % *HI* (11/22/19 12:32 PM) 17.1 % *HI* (11/21/19 10:14 AM) RDW [11.5-14.5 %] 0.5 mg/dL (11/25/19 6:34 AM) 0.3 mg/dL (11/23/19 7:37 PM) 0.6 mg/dL (11/21/19 10:14 AM) Bili Total [0.2-1.3 mg/dL] <0.02 ng/mL (11/21/19 10:14 AM) Troponin-I [0.00-0.40 ng/mL] Moderate /HPF *ABN* (11/21/19 10:14 AM) UA Bacteria [None Seen /HPF] Negative *NA* (11/21/19 10:14 AM) UA Bili [Negative] Moderate *ABN* (11/21/19 10:14 AM) UA Blood [Negative] Yellow *NA* (11/21/19 10:14 AM) UA Color [Yellow] Negative mg/dL *NA* (11/21/19 10:14 AM) UA Glucose [Negative mg/dL] Negative mg/dL *NA* (11/21/19 10:14 AM) UA Ketones [Negative mg/dL] Moderate *ABN* (11/21/19 10:14 AM) UA Leuk Est [Negative] Moderate /LPF *ABN* (11/21/19 10:14 AM) UA Mucus [None Seen /LPF] Negative (11/21/19 10:14 AM) UA Nitrite [Negative] 6.0 (11/21/19 10:14 AM) UA pH [5.0-8.0] 100 mg/dL *ABN* (11/21/19 10:14 AM) UA Protein [Negative mg/dL] 18 /HPF *HI* (11/21/19 10:14 AM) UA RBC [0-2 /HPF] 1.023 (11/21/19 10:14 AM) UA Spec Grav [<=1.030] Few /LPF *NA* (11/21/19 10:14 AM) UA Sq Epi [Few /LPF] Marked *ABN* (11/21/19 10:14 AM) UA Turbidity [Clear] <=1.0 mg/dL *NA* (11/21/19 10:14 AM) UA Urobilinogen [0.1-1.0 mg/dL] >182 /HPF *HI* (11/21/19 10:14 AM) UA WBC [0-5 /HPF] Few /HPF *ABN* (11/21/19 10:14 AM) UA [place] Yeast [None Seen /HPF] 4.0 K/CMM (11/25/19 6:34 AM) 5.6 K/CMM (11/22/19 12:32 PM) 7.6 K/CMM (11/21/19 10:14 AM) WBC [3.7-10.4 K/CMM] Negative *NA* (11/21/19 3:28 PM) Influenza A PCR [Negative] Negative *NA* (11/21/19 3:28 PM) Influenza B PCR [Negative] Negative *NA* (11/21/19 3:28 PM) RSV PCR [Negative] Nasophrngl Swb *NA* (11/21/19 3:28 PM) Source Respiratory Panel PCR 978100 IU/mL *NA* (11/23/19 7:37 PM) HCV RNA VirLoad 6.0 IU/mL *NA* (11/23/19 7:37 PM) HCV RNA Log10 1Result Comment: This test was developed and its performance characteristics determined by [facility]. It has not been cleared or approved by the U.S. Food and Drug Administration. The FDA has determined that such clearance or approval is not necessary. This test is used for clinical purposes. It should not be regarded as investigational or for research. Performed At: [address] [id number] Raheel Melendez MD Ph:[phone] 2Result Comment: The eGFR is calculated using the [...] from the National Kidney Disease Education Program ( NKDEP) which additionally recommends that when the eGFR is used in patients with extremes of body mass index for purposes of drug dosing, the eGFR should be mul tiplied by the estimated BMI. 3Result Comment: The eGFR is calculated using the [...] from the National Kidney Disease Education Program ( NKDEP) which additionally recommends that when the eGFR is used in patients with extremes of body mass index for purposes of drug dosing, the eGFR should be mul tiplied by the estimated BMI. 4Result Comment: The eGFR is calculated using the [...] from the National Kidney Disease Education Program ( NKDEP) which additionally recommends that when the eGFR is used in patients with extremes of body mass index for purposes of drug dosing, the eGFR should be mul tiplied by the estimated BMI. Microbiology Reports TEST: Culture: Urine STATUS: Auth (Verified) BODY SITE: SOURCE: Urine, Clean Catch COLLECTED DATE/TIME: 11/21/19 10:14 AM FINAL REPORT 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 Escherichia coli ORGANISM:Escherichia coli Immunizations Given and Recorded Vaccine Date Status Refusal Reason pneumococcal 13-valent vaccine 01/16/17 Given influenza virus vaccine, inactivated 01/16/17 G iven pneumococcal 23-valent vaccine 02/18/16 Given Procedures Procedure Date Related Diagnosis Body Site Status Abdominal hysterectomy Completed CABG x 1 - Coronary artery bypass graft x 1 Compl eted Cholecystectomy1 Completed Cholecystotomy Completed Eye care Completed 52956 Social History Social History Type Response Alcohol Never Substance Abuse Use: None. Smoking Status Never smoker; Exposure to T obacco Smoke None; Cigarette Smoking Last 365 Days No; Reg Smoking Cessation Counseli ng No entered on: 11/21/19 Assessment and Plan Extracted from: Title: Clinical Document Author: Alexi Wisdom MD Date: 11/26/19 Progress Note Nephrology SUBJECTIVE doing better ASSESSMENT 1-- ESRD HEMODIALYSIS MWF, HEMODIALYSIS PROCEDURE: seen on hemodialysis, see orders, tolerating current prescription. 2- anemia of chronic disease hg stable 3-E. coli UTI continue on antibiotics 4- debilitated 5- hx of cva 6- cirrhosis untreated hcv, nausea and v omiting 7. abdominal pain sary esophagitis PLAN & TREATMENT dialysis today GI following ok to [...] depression and schizoaffective disorder no anxiety OBJECTIVE VitalsTmp(F)Tmp(C)[id number] 11/26 17:52 116/55---72--99-- ---- 11/26 15:24 140/65---70------ ----- 11/26 15:[id number]---- ----- 11/26 15:00 116/89500011----- ---- 11/26 14:52 98/08244084------ --- 24 Hr Tmax: 98.7F (37.06c) at 11/26 00:0 5Vital Signs are the last 5 in the past 48 hours. 24 Hr Tmin: 97.9F (36.61c) at 11/26 05: 22Weights are the last 5 in 60 days, plus initial. DateWt(kg)Wt(lb)Ht(cm)Ht(in)MethodBMIBSA 11/21 (initial) 59.09 130.00Measured 23. 81.61 28396.48 62.00Stated 24 Hr Point of Care Glucoses 11/26 0805Glucose [id number] H 11/26 0229Glucose XGJ006 H 11/25 2032Glucose UGM056 H Most Recent Scores: 11/26/19Pain Intensity NRS (0-10)0 11/26/19Glasgow Coma Score15 11/26/19Johns Duran Fall Score9 11/26/19Braden Score15 (all previously charted lines have been discontinued) Surgical Procedures: 11/25/19 11:52EGD / MAC [id number] Surgeon: Ranjeet Porter MD (Service: END) Input/Output RecordInOutBal 10/2923hr Tot 10 [id number] 10/2823hr Tot 230 50 180 Scheduled Meds (9):aspirin [...] None Labs (Last four charted values) WBC 4.0(NOV 25)5.6(NOV 22)7.6(NOV 21) Hgb 12.6(NOV 25)12.1(NOV 22)L 11.8(NOV 21) Hct 37.6(NOV 25)36.3(NOV 22)L 35.8(NOV 21) Plt L 87(NOV 25)L 112(NOV 22)L 123(NOV 21) Na 136(NOV 25)136(NOV 22)137(NOV 21) K 4.0(NOV 25)3.7(NOV 22)4.5(NOV 21) CO2 29(NOV 25)30(NOV 22)32(NOV 21) Cl 101(NOV 25)99(NOV 22)99(NOV 21) Cr H 4.76(NOV 25)H 5.15(NOV 22)H 6.19(NOV 21) BUN 17(NOV 25)18(NOV 22)H 26(NOV 21) Glucose Random H 155(NOV 25)H 188(NOV 22)H 117(NOV 21) Ca 8.7(NOV 25)9.0(NOV 22)9.1(NOV 21) PT 13.2(NOV 25)13.5(NOV 21) INR 1.00(NOV 25)1.03(NOV 21) PTT 33.5(NOV 25)27.5(NOV 21) Troponin <0.02(NOV 21) Total CK 89(NOV 21) Extracted from: Title: GI Consult * Author: Ranjeet Porter MD Date : 11/23/19 Impression and Plan IMPRESSION: 1. liver [...] have examined the patient with the Physician Waffle Machine Operator and confirmed the essential components of history, physical examination, diagnosis and treatment plan. I agree with the patient's care as documented by the Physician Waffle Machine Operator. Extracted from: Title: History and Physical Author: Sylwia Larose MD Date: 11/21/19 69-year-old femalewho has significant past medical history of ESRD on MWF HD , CAD, diabetes mellitus, hepatitis C, hypertensionwith questionable Alzheimer's diseasewas brought in byher brother. As per the history [facility] discomfortand was diagnosed with urinary tract infection and was sent back home with p.o. Keflex however the patient did not receive any p.o. Keflexand [place] the patient was not respondingand was extremely confused that prompted them to bring her to the emergency room. In the emergency room patient was noted to have positive urinary tract infectionwith a normal WBC count. During my encounter patient was able to give her date of and also address. Predominant history was obtained from brother [id number]. Patient did not have fevers at home but the first temperature was recorded here in the emergency room Assessment- -Acutecystitis with urinary tract infe ction -Sepsis secondary to acute cystitis -Metabolic encephalopathy likely related to sepsis related to acute cystitis and morphine given in the emergency room in setting of esrd -Diabetes mellitus type 2 -Coronary artery disease -End-stage renal disease on Sundayhepatitis C -Hypertension -Questionable Alzheimer's disease -Chronic rectal prolapse with a minor skin erosionsand recent traumatic bleeding which resolved Plan - -patient was given IV antibiotics in the emergency room will continueRocephin -Patient mentation continues to improve We will continue IV fluids -Insulin sliding scale and Accu-Cheks -[facility] Sunday [facility] hemod[facility] -Resume home medications per the med rec onciliation is complete - f/u labs and H&H - f.u on cultures Heparin SQ Q12H Inpatient with IMCU level of care Addendum by chronic thrombocytopenia se c to hepatitis C Sylwia Larose MD on 11/22/2019 02:05 PAIRER INSPECTOR
--- OUTSIDE RECORDS SUMMARY | 2020-06-17 13:08 | XMS REPORT | Summary of Care ---
Author Author [facility] Organization [facility] Address Unknown Phone Unavailable Encounter [facility](MALOU) [id number] Date(s): 02/14/18 - 02/21/18 [facility] [address] [place] [address]- [phone] Discharge Disposition: Home or Self Care Attending Physician: Chucho Zhou MD Admitting Physician: Chucho Zhou MD Vital Signs 1 2 3 Most recent to oldest [Reference Range]: 152.4 cm (02/14/18 10:18 PM) 152.4 cm (02/14/18 4:21 PM) Height 98.1 DegF (02/21/18 12:00 PM) 98.2 DegF (02/21/18 8:00 AM) 98.4 DegF (02/21/18 4:11 AM) Temperature Oral [96.4-99.1 DegF] 134/70 mmHg (02/21/18 12:00 PM) 159/71 mmHg *HI* (02/21/18 8:00 AM) 162/74 mmHg *HI* (02/21/18 4:11 AM) Blood Pressure [90-140/60-90 mmHg] 18 BRMIN (02/21/18 12:00 PM) 18 BRMIN (02/21/18 8:00 AM) 18 BRMIN (02/21/18 4:11 AM) Respiratory Rate [14-20 BRMIN] 63 bpm (02/21/18 12:00 PM) 73 bpm (02/21/18 8:00 AM) 73 bpm (02/21/18 4:11 AM) Peripheral Pulse Rate [60-100 bpm] 56.932 kg (02/14/18 10:18 PM) 58.182 kg (02/14/18 4:21 PM) Weight 24.51 m2 (02/14/18 10:18 PM) 25.05 m2 (02/14/18 4:21 PM) Body Mass Index Problem List Condition Effective Dates Status Health Status Informan t Alzheimer Resolved disease(Confirmed) Cholelithiasis(Confi Resolved rmed) Diabetes Active mellitus(Confirmed) Hepatitis Active C(Confirmed) Myocardial Resolved infarct(Confirmed) Stroke(Confirmed) Resolved Allergies, Adverse Reactions, Alerts Substance Reaction Severity Status NKDA Active Medications acetaminophen 650 mg, 2 tab, Route: PO, Drug form: TAB, Q4H, Dosing Weight 58.182, kg, PRN Mayito n 1-3/Temp > 100.4 F, Start date: 02/14/18 21:31:00 CDT, Duration: 30 day, Stop date: 03/16/18 21:30:00 CDT Notes: Do not exceed 4 gm/day. (Same as: Tylenol) Start Date: 02/14/18 Stop Date: 02/21/18 Status: Discontinued albumin human 25% intravenous solution 50 gm, 200 mL, Route: IVPB, Drug form: INJ, ONCE, Dosing Weight 56.932, kg, Star t date: 02/18/18 14:58:00 CDT, Stop date: 02/18/18 14:58:00 CDT Notes: Lot #: Mfg: (Same as: Plasbumin-25)"blood pr oduct derivative"WASTE: F/P - Red; E -Red MEDICATION WASTE Product Size: 25 gmProduct Wasted: ___ gm Start Date: 02/18/18 Stop Date: 02/18/18 Status: Completed albuterol 0.083% inhalation solution 20 mg, Route: NEB, ONCE, Dosing Weight 58.182, kg, Priority: STAT, Start date: 0 02/14/18 19:33:00 CDT, Stop date: 02/14/18 19:33:00 CDT Start Date: 02/14/18 Stop Date: 02/14/18 Status: Completed amLODIPine 10 mg, PO, Daily, 0 Refill(s) Start Date: 02/14/18 Status: Ordered amLODIPine 10 mg, 2 tab, Route: PO, Drug form: TAB, Daily, Dosing Weight 56.932, kg, Start date: 02/16/18 9:00:00 CDT, Duration: 30 day, Stop date: 03/17/18 9:00:00 CDT Notes: (Same as: Norvasc) Start Date: 02/16/18 Stop Date: 02/21/18 Status: Discontinued aspirin 324 mg, 4 tab, Route: CHEW, Drug form: CHEWTAB, ONCE, Dosing Weight 58.182, kg, Priority: STAT, Start date: 02/14/18 20:21:00 CDT, Stop date: 02/14/18 20:21:00 CDT Notes: Take with food. Start Date: 02/14/18 Stop Date: 02/14/18 Status: Completed aspirin 81 mg tablet, enteric coated 81 mg = 1 tab, PO, Daily, # 30 tab, 3 Refill(s), Pharmacy: [facility] [id number] Start Date: 02/21/18 Stop Date: 06/21/18 Status: Ordered aspirin 81 mg tablet, enteric coated 81 mg, 1 tab, Route: PO, Drug form: ECTAB, Q24H, Dosing Weight 58.182, kg, Start date: 02/14/18 22:00:00 CDT, Duration: 30 day, Stop date: 03/15/18 22:00:00 CDT Notes: Do not crush or chew.(Same As: Ecotrin) Start Date: 02/14/18 Stop Date: 02/21/18 Status: Discontinued atorvastatin 80 mg, 2 tab, Route: PO, Drug form: TAB, Bedtime, Dosing Weight 58.182, kg, Star t date: 02/15/18 21:00:00 CDT, Duration: 30 day, Stop date: 03/16/18 21:00:00 CD T Notes: (Same as: Lipitor) Start Date: 02/15/18 Stop Date: 02/21/18 Status: Discontinued atorvastatin 40 mg oral tablet 40 mg = 1 tab, PO, Bedtime, # 30 tab, 0 Refill(s), Pharmacy: [facility] [id number] Start Date: 02/21/18 Stop Date: 03/23/18 Status: Ordered calcium gluconate 1 gm, Route: IVPB, ONCE, Dosing Weight 58.182, kg, Priority: STAT, Start date: 0 02/14/18 19:33:00 CDT, Stop date: 02/14/18 19:33:00 CDT Start Date: 02/14/18 Stop Date: 02/14/18 Status: Completed carvedilol 25 mg oral tablet 25 mg = 1 tab, PO, Q12H, # 60 tab, 0 Refill(s), Pharmacy: [id number] Start Date: 02/21/18 Status: Ordered Coreg 25 mg, 2 tab, Route: PO, Drug form: TAB, BID, Dosing Weight 56.932, kg, Start da te: 02/15/18 9:45:00 CDT, Stop date: 03/17/18 9:00:00 CDT Notes: Give with food. (Same As: Coreg) Start Date: 02/15/18 Stop Date: 02/21/18 Status: Discontinued Dextrose 50% Syringe 25 gm, 50 mL, Route: IVP, Drug Form: INJ, Dosing Weight 58.182, kg, PRN, PRN Blo od Glucose Results, Start date: 02/14/18 21:59:00 CDT, Duration: 30 day, Stop da te: 03/16/18 21:58:00 CDT Start Date: 02/14/18 Stop Date: 02/21/18 Status: Discontinued Dextrose 50% Syringe 12.5 gm, 25 mL, Route: IVP, Drug Form: INJ, Dosing Weight 58.182, kg, PRN, PRN B lood Glucose Results, Start date: 02/14/18 21:59:00 CDT, Duration: 30 day, Stop date: 03/16/18 21:58:00 CDT Start Date: 02/14/18 Stop Date: 02/21/18 Status: Discontinued Dextrose 50% Syringe 100 mL, Route: IVP, Dosing Weight 58.182, kg, ONCE, STAT, Start date: 02/14/18 1 9:33:00 CDT, Stop date: 02/14/18 19:33:00 CDT Start Date: 02/14/18 Stop Date: 02/14/18 Status: Completed escitalopram 10 mg, 1 tab, Route: PO, Drug form: TAB, Daily, Dosing Weight 56.932, kg, Start date: 02/16/18 9:00:00 CDT, Duration: 30 day, Stop date: 03/17/18 9:00:00 CDT Notes: (Same as: Lexapro) Start Date: 02/16/18 Stop Date: 02/21/18 Status: Discontinued furosemide 40 mg, Route: IVP, ONCE, Dosing Weight 58.182, kg, Priority: STAT, Start date: 0 02/14/18 19:33:00 CDT, Stop date: 02/14/18 19:33:00 CDT Start Date: 02/14/18 Stop Date: 02/14/18 Status: Completed glucagon 1 mg, Route: IM, Drug form: PDR/INJ, PRN, Dosing Weight 58.182, kg, PRN Blood Gl ucose Results, Start date: 02/14/18 21:59:00 CDT, Duration: 30 day, Stop date: 0 03/16/18 21:58:00 CDT Start Date: 02/14/18 Stop Date: 02/21/18 Status: Discontinued Heparin - one time bolus for ACS 3,000 unit, 3 mL, Route: IVP, Drug form: INJ, ONCE, Dosing Weight 56.932, kg, Pr iority: STAT, Start date: 02/15/18 8:02:00 CDT, Stop date: 02/15/18 8:02:00 CDT Start Date: 02/15/18 Stop Date: 02/15/18 Status: Completed Heparin 30 unit/kg Bolus (Heparin Dosing Weight) Route: IVP, PRN, 1,500 unit, 1.5 mL, Drug form: INJ, PRN, Heparin Protocol, Star t date: 02/15/18 8:02:00 CDT Stop date: 03/17/18 8:01:00 CDT, 30 day Start Date: 02/15/18 Stop Date: 02/21/18 Status: Discontinued Heparin 60 unit/kg Bolus (Heparin Dosing Weight) Route: IVP, PRN, 3,000 unit, 3 mL, Drug form: INJ, PRN, Heparin Protocol, Start date: 02/15/18 8:02:00 CDT Stop date: 03/17/18 8:01:00 CDT, 30 day Start Date: 02/15/18 Stop Date: 02/21/18 Status: Discontinued heparin additive 25,000 unit [12 unit/kg/hr] + Premix Diluent Dextrose 5% 500 mL 500 mL, Rate: 12.02 ml/hr, Infuse over: 41.6 hr, Route: IV, Dosing Weight 50.07 kg, Total Volume: 500 mL, Start date: 02/15/18 8:02:00 CDT, Duration: 30 day, St op date: 03/17/18 8:01:00 CDT, 1.47, m2 Start Date: 02/15/18 Stop Date: 02/21/18 Status: Discontinued hydrochlorothiazide 25 mg, PO, Daily, 0 Refill(s) Start Date: 02/14/18 Stop Date: 02/21/18 Status: Discontinued insulin glargine 100 units/mL subcutaneous solution 20 unit, 0.2 mL, Route: SUB-Q, Drug form: SOLN, Daily, Dosing Weight 56.932, kg, Start date: 02/16/18 9:00:00 CDT, Duration: 30 day, Stop date: 03/17/18 9:00:00 CDT Notes: (Same as: Lantus)Do not hold insulin without contacting prescriberWASTE: F/P - Black; E - Municipal Trash Bin "single patient use only" Start Date: 02/16/18 Stop Date: 02/21/18 Status: Discontinued insulin lispro 15 unit, 0.15 mL, Route: SUB-Q, Drug form: SOLN, TID-Before Meals, Dosing Weight 58.182, kg, PRN Blood Glucose Results, Start date: 02/14/18 21:59:00 CDT, Durat ion: 30 day, Stop date: 03/16/18 21:58:00 CDT Notes: (Same as: Humalog ) Roll in palms of hands gently; Do not shake `vigorou sly. "Single Patient Use Only " WASTE: F/P - Black; E - Municipal Trash Bin St able for 28 days at room temperature.Expires in days from Da te Start Date: 02/14/18 Stop Date: 02/21/18 Status: Discontinued insulin lispro 12 unit, 0.12 mL, Route: SUB-Q, Drug form: SOLN, TID-Before Meals, Dosing Weight 58.182, kg, PRN Blood Glucose Results, Start date: 02/14/18 21:59:00 CDT, Durat ion: 30 day, Stop date: 03/16/18 21:58:00 CDT Notes: (Same as: Humalog ) Roll in palms of hands gently; Do not shake `vigorou sly. "Single Patient Use Only " WASTE: F/P - Black; E - Municipal Trash [address] St able for 28 days at room temperature.Expires in days from Da te Start Date: 02/14/18 Stop Date: 02/21/18 Status: Discontinued insulin lispro 4 unit, 0.04 mL, Route: SUB-Q, Drug form: SOLN, Bedtime, Dosing Weight 58.182, k g, PRN Blood Glucose Results, Start date: 02/14/18 21:59:00 CDT, Duration: 30 da y, Stop date: 03/16/18 21:58:00 CDT Notes: (Same as: Humalog ) Roll in palms of hands gently; Do not shake `vigorou sly. "Single Patient Use Only " WASTE: F/P - Black; E - Municipal Trash [address] St able for 28 days at room temperature.Expires in days from Da te Start Date: 02/14/18 Stop Date: 02/21/18 Status: Discontinued insulin lispro 3 unit, 0.03 mL, Route: SUB-Q, Drug form: SOLN, Bedtime, Dosing Weight 58.182, k g, PRN Blood Glucose Results, Start date: 02/14/18 21:59:00 CDT, Duration: 30 da y, Stop date: 03/16/18 21:58:00 CDT Notes: (Same as: Humalog ) Roll in palms of hands gently; Do not shake `vigorou sly. "Single Patient Use Only " WASTE: F/P - Black; E - Municipal Trash [address] St able for 28 days at room temperature.Expires in days from Da te Start Date: 02/14/18 Stop Date: 02/21/18 Status: Discontinued insulin lispro 2 unit, 0.02 mL, Route: SUB-Q, Drug form: SOLN, Bedtime, Dosing Weight 58.182, k g, PRN Blood Glucose Results, Start date: 02/14/18 21:59:00 CDT, Duration: 30 da y, Stop date: 03/16/18 21:58:00 CDT Notes: (Same as: Humalog ) Roll in palms of hands gently; Do not shake `vigorou sly. "Single Patient Use Only " WASTE: F/P - Black; E - Municipal [address] St able for 28 days at room temperature.Expires in days from Da te Start Date: 02/14/18 Stop Date: 02/21/18 Status: Discontinued insulin lispro 1 unit, 0.01 mL, Route: SUB-Q, Drug form: SOLN, Bedtime, Dosing Weight 58.182, k g, PRN Blood Glucose Results, Start date: 02/14/18 21:59:00 CDT, Duration: 30 da y, Stop date: 03/16/18 21:58:00 CDT Notes: (Same as: Humalog ) Roll in palms of hands gently; Do not shake `vigorou sly. "Single Patient Use Only " WASTE: F/P - Black; E - Municipal [address]ash [address] St able for 28 days at room temperature.Expires in days from Da te Start Date: 02/14/18 Stop Date: 02/21/18 Status: Discontinued insulin lispro 3 unit, 0.03 mL, Route: SUB-Q, Drug form: SOLN, TID-Before Meals, Dosing Weight 58.182, kg, PRN Blood Glucose Results, Start date: 02/14/18 21:59:00 CDT, Durati on: 30 day, Stop date: 03/16/18 21:58:00 CDT Notes: (Same as: Humalog ) Roll in palms of hands gently; Do not shake `vigorou sly. "Single Patient Use Only " WASTE: F/P - Black; E - Municipal [address] St able for 28 days at room temperature.Expires in days from Da te Start Date: 02/14/18 Stop Date: 02/21/18 Status: Discontinued insulin lispro 6 unit, 0.06 mL, Route: SUB-Q, Drug form: SOLN, TID-Before Meals, Dosing Weight 58.182, kg, PRN Blood Glucose Results, Start date: 02/14/18 21:59:00 CDT, Durati on: 30 day, Stop date: 03/16/18 21:58:00 CDT Notes: (Same as: Humalog ) Roll in palms of hands gently; Do not shake `vigorou sly. "Single Patient Use Only " WASTE: F/P - Black; E - Municipal [address] St able for 28 days at room temperature.Expires in days from Da te Start Date: 02/14/18 Stop Date: 02/21/18 Status: Discontinued insulin lispro 9 unit, 0.09 mL, Route: SUB-Q, Drug form: SOLN, TID-Before Meals, Dosing Weight 58.182, kg, PRN Blood Glucose Results, Start date: 02/14/18 21:59:00 CDT, Durati on: 30 day, Stop date: 03/16/18 21:58:00 CDT Notes: (Same as: Humalog ) Roll in palms of hands gently; Do not shake `vigorou sly. "Single Patient Use Only " WASTE: F/P - Black; E - Municipal [address] St able for 28 days at room temperature.Expires in days from Da te Start Date: 02/14/18 Stop Date: 02/21/18 Status: Discontinued insulin lispro 10 unit, 0.1 mL, Route: SUB-Q, Drug form: SOLN, ONCE, Dosing Weight 56.932, kg, Start date: 02/15/18 2:42:00 CDT, Stop date: 02/15/18 2:42:00 CDT Notes: (Same as: Humalog ) Roll in palms of hands gently; Do not shake `yasmeenu sly. "Single Patient Use Only " WASTE: F/P - Black; E - Municipal Trash [address] St able for 28 days at room temperature.Expires in days from Da te Start Date: 02/15/18 Stop Date: 02/15/18 Status: Completed Insulin regular 10 unit, Route: IVP, ONCE, Dosing Weight 58.182, kg, Priority: STAT, Start date: 02/14/18 19:33:00 CDT, Stop date: 02/14/18 19:33:00 CDT Start Date: 02/14/18 Stop Date: 02/14/18 Status: Completed Kayexalate 15 gm, 60 mL, Route: PO, Drug form: SUSP, ONCE, Dosing Weight 58.182, kg, Priori ty: NOW, Start date: 02/14/18 21:32:00 CDT, Stop date: 02/14/18 21:32:00 CDT Notes: (sodium polystyrene sulfonate 15 gm/60 ml MERRY) Shake well before use. (Same as: Kayexalate, SPS) Start Date: 02/14/18 Stop Date: 02/14/18 Status: Completed lisinopril 20 mg oral tablet 20 mg = 1 tab, PO, Daily, # 90 tab, 0 Refill(s) Start Date: 02/14/18 Stop Date: 02/21/18 Status: Discontinued metoclopramide 5 mg oral tablet 5 mg, 1 tab, Route: PO, Drug form: TAB, QID-Before Meals, Dosing Weight 56.932, kg, PRN Nausea & Vomiting, Start date: 02/15/18 18:24:00 CDT, Duration: 30 day, Stop date: 03/17/18 18:23:00 CDT Notes: (Same as: Reglan) Take 30 min before meals Start Date: 02/15/18 Stop Date: 02/21/18 Status: Discontinued midodrine 10 mg, 2 tab, Route: PO, Drug form: TAB, TID, Dosing Weight 56.932, kg, Start da te: 02/18/18 17:00:00 CDT, Duration: 30 day, Stop date: 03/20/18 13:00:00 CDT Notes: (Same as:Proamatine) Start Date: 02/18/18 Stop Date: 02/19/18 Status: Discontinued morphine Sulfate 2 mg, 1 mL, Route: IVP, Drug form: SOLN, Q4H, Dosing Weight 56.932, kg, PRN Ches t Pain, Start date: 02/15/18 2:27:00 CDT, Duration: 30 day, Stop date: 03/17/18 2:26:00 CDT Start Date: 02/15/18 Stop Date: 02/17/18 Status: Discontinued morphine Sulfate 6 mg, 3 mL, Route: PO, Drug form: SOLN, Q6H, PRN Chest Pain, Start date: 8 16:39:00 CDT, Stop date: 03/19/18 16:38:00 CDT Notes: (Same as:MORPhine Sulfate) Start Date: 02/17/18 Stop Date: 02/17/18 Status: Discontinued morphine Sulfate 6 mg, 3 mL, Route: PO, Drug form: SOLN, Q6H, Dosing Weight 56.932, kg, PRN Chest Pain, Start date: 02/17/18 16:59:00 CDT, Stop date: 03/19/18 16:58:00 CDT Notes: (Same as:MORPhine Sulfate) Start Date: 02/17/18 Stop Date: 02/21/18 Status: Discontinued morphine Sulfate 6 mg, 3 mL, Route: PO, Drug form: SOLN, Q4H, Dosing Weight 56.932, kg, PRN Pain Score 7-10, Start date: 02/15/18 2:08:00 CDT, Duration: 30 day, Stop date: 03/17 2:07:00 CDT Notes: (Same as:MORPhine Sulfate) Start Date: 02/15/18 Stop Date: 02/15/18 Status: Discontinued nitroglycerin SL Tab 0.4 mg, 1 tab, Route: SL, Drug form: TAB, Q5Min, Dosing Weight 56.932, kg, PRN C hest Pain, Start date: 02/15/18 17:55:00 CDT, Duration: 3 doses or times, Stop d ate: Limited # of times Notes: (Same as:Nitroquick, Nitrostat)"Do Not Crush" Sublingual tablet Start Date: 02/15/18 Stop Date: 02/21/18 Status: Discontinued [place] 5/325 oral tablet 1 tab, Route: PO, Drug Form: TAB, Dosing Weight 56.932, kg, ONCE, Start date: 0:39:00 CDT, Stop date: 02/15/18 0:39:00 CDT Notes: (Same as: [place] 325/5) Do not exceed 4gm/day of acetaminophen. Start Date: 02/15/18 Stop Date: 02/15/18 Status: Completed normal saline 0.9% IV 1,000 mL 1,000 mL, Rate: 70 ml/hr, Infuse over: 14.3 hr, Route: IV, Dosing Weight 56.932 kg, Total Volume: 1,000, Start date: 02/19/18 12:46:00 CDT, Duration: 30 day, St op date: 03/21/18 12:45:00 CDT, 1.57, m2 Start Date: 02/19/18 Stop Date: 02/21/18 Status: Discontinued octreotide 100 microgram, 1 mL, Route: SUB-Q, Drug form: INJ, Q8H, Dosing Weight 56.932, kg , Start date: 02/18/18 16:00:00 CDT, Duration: 30 day, Stop date: 03/20/18 8:00: 00 CDT Notes: (Same As: SandoSTATIN). Refrigerate. MEDICATION WASTE Product S ize: 100 microgram Product Wasted: _0_ microgram Start Date: 02/18/18 Stop Date: 02/21/18 Status: Discontinued omeprazole 20 mg, Route: PO, Drug form: DRC, Daily, Dosing Weight 56.932, kg, Start date: 0 02/16/18 9:00:00 CDT, Duration: 30 day, Stop date: 03/17/18 9:00:00 CDT Start Date: 02/16/18 Stop Date: 02/15/18 Status: Deleted pantoprazole 40 mg oral enteric coated tablet 40 mg = 1 tab, PO, Daily, # 30 tab, 0 Refill(s), Pharmacy: [facility] [id number] Start Date: 02/21/18 Stop Date: 03/23/18 Status: Ordered Protonix 40 mg, 1 tab, Route: PO, Drug form: ECTAB, Daily, Start date: 02/16/18 9:00:00 C DT, Duration: 30 day, Stop date: 03/17/18 9:00:00 CDT Notes: Tablet should not be chewed or crushed.(Same as: Protonix) Start Date: 02/16/18 Stop Date: 02/21/18 Status: Discontinued Saline Flush 0.9% 10 mL, Route: IVP, Drug Form: INJ, Dosing Weight 58.182, kg, PRN, PRN Line Flush , Start date: 02/14/18 20:21:00 CDT, Duration: 30 day, Stop date: 03/16/18 20:20 :00 CDT Notes: (Same as: BD Posiflush) Start Date: 02/14/18 Stop Date: 02/18/18 Status: Deleted Saline Flush 0.9% 10 ml, Route: IVP, Drug Form: INJ, Dosing Weight 58.182, kg, Q12H, Start date: 0 02/15/18 9:00:00 CDT, Duration: 30 day, Stop date: 03/16/18 21:00:00 CDT Notes: (Same as: BD Posiflush) Start Date: 02/15/18 Stop Date: 02/21/18 Status: Discontinued Saline Flush 0.9% 10 ml, Route: IVP, Drug Form: INJ, Dosing Weight 58.182, kg, PRN, PRN Line Flush , Start date: 02/14/18 21:31:00 CDT, Duration: 30 day, Stop date: 03/16/18 21:30 :00 CDT Notes: (Same as: BD Posiflush) Start Date: 02/14/18 Stop Date: 02/18/18 Status: Deleted Saline Flush 0.9% 10 ml, Route: IVP, Drug Form: INJ, Dosing Weight 58.182, kg, PRN, PRN Line Flush , Start date: 02/14/18 21:31:00 CDT, Duration: 30 day, Stop date: 03/16/18 21:30 :00 CDT Notes: (Same as: BD Posiflush) Start Date: 02/14/18 Stop Date: 02/21/18 Status: Discontinued Saline Flush 0.9% 10 mL, Route: IVP, Drug Form: INJ, Dosing Weight 58.182, kg, PRN, PRN Line Flush , Start date: 02/14/18 19:33:00 CDT, Duration: 30 day, Stop date: 03/16/18 19:32 :00 CDT Notes: (Same as: BD Posiflush) Start Date: 02/14/18 Stop Date: 02/18/18 Status: Deleted sodium bicarbonate 1,300 mg, 2 tab, Route: PO, Drug form: TAB, BID, Dosing Weight 56.932, kg, Start date: 02/16/18 9:00:00 CDT, Duration: 30 day, Stop date: 03/17/18 17:00:00 CDT Notes: "Dissolve tablet in a glass of water prior to oral administration. STOMA CH WARNING: To avoid serious injury, do not take until tablet is completely diss olved. It is very important not to take this product when overly full from food or drink." Start Date: 02/16/18 Stop Date: 02/21/18 Status: Discontinued sodium bicarbonate 650 mg, PO, BID, 0 Refill(s) Start Date: 02/14/18 Status: Ordered Sodium Chloride 0.9% (Bolus) IV 250 mL, 250 ml/hr, Infuse Over: 1 hr, Route: IV, 250, Drug form: INJ, ONCALL, Pr iority: Routine, Dosing Weight 56.932 kg, Start date: 02/15/18 16:00:00 CDT, Dur ation: 1 doses or times Start Date: 02/15/18 Stop Date: 02/21/18 Status: Discontinued Sodium Chloride 0.9% (titrate) 250 mL 250 mL, Rate: To prime line and flush remaining blood products., Dosing Weight 5 6.932, kg, Route: IV, Total Volume: 250, Priority: Routine, Start Date: 02/18/18 9:25:00 CDT, Duration: 1 day, Stop date: 02/19/18 9:24:00 CDT, Replace Every: 24 hr Start Date: 02/18/18 Stop Date: 02/19/18 Status: Completed Sodium Chloride 0.9% IV 500 mL 500 mL, Rate: 50 ml/hr, Infuse over: 10 hr, Route: IV, Dosing Weight 56.932 kg, Total Volume: 500, Start date: 02/15/18 17:55:00 CDT, Duration: 10 hr, Stop date : 02/16/18 3:54:00 CDT, 1.57, m2 Start Date: 02/15/18 Stop Date: 02/16/18 Status: Completed Sodium Chloride 0.9% IV 750 mL 750 mL, Rate: 75 ml/hr, Infuse over: 10 hr, Route: IV, Dosing Weight 56.932 kg, Total Volume: 750, Start date: 02/15/18 15:05:00 CDT, Duration: 24 hr, Stop date : 02/16/18 15:04:00 CDT, 1.57, m2 Start Date: 02/15/18 Stop Date: 02/16/18 Status: Completed sulfaSALAzine 500 mg, 1 tab, Route: PO, Drug form: TAB, BID, Dosing Weight 56.932, kg, Start d ate: 02/16/18 9:00:00 CDT, Duration: 30 day, Stop date: 03/17/18 17:00:00 CDT Notes: (Same As: Azulfidine) Start Date: 02/16/18 Stop Date: 02/21/18 Status: Discontinued Zofran 4 mg, 2 mL, Route: IVP, Drug form: INJ, Q6H, Dosing Weight 56.932, kg, PRN Nause a, Start date: 02/18/18 19:39:00 CDT, Duration: 30 day, Stop date: 03/20/18 19:3 8:00 CDT Notes: (Same as: Zofran) MEDICATION WASTE Product Size: 4 mgProduct Was lorena: ___ mg Start Date: 02/18/18 Stop Date: 02/21/18 Status: Discontinued Results BLOOD BANK RESULTS Most recent to 1 2 3 4 oldest [Reference Range]: ABO/Rh O POS *Unknown* (02/18/18 12:40 PM) Antibody Scrn Negative (02/18/18 12:40 PM) RBC product Product available 1 (02/18/18 9:25 AM) 1Result Comment: 02/18/2018 14:37 [id number] notified Tiany ELECTROLYTES Most recent to 1 2 3 4 oldest [Reference Range]: Sodium Lvl [135-145 138 mEq/L 140 mEq/L 137 mEq/L mEq/L] (02/21/18 3:39 AM) (02/20/18 4:38 AM) (02/19/18 5:17 AM) Potassium Lvl 4.7 mEq/L 4.9 mEq/L 4.9 mEq/L [3.5-5.1 mEq/L] (02/21/18 3:39 AM) (02/20/18 4:38 AM) (02/19/18 5:17 AM) Chloride Lvl [95-109 102 mEq/L 102 mEq/L 101 mEq/L mEq/L] (02/21/18 3:39 AM) (02/20/18 4:38 AM) (02/19/18 5:17 AM) CO2 [24-32 mEq/L] 24 mEq/L 27 mEq/L 23 mEq/L (02/21/18 3:39 AM) (02/20/18 4:38 AM) *LOW* (02/19/18 5:17 AM) AGAP [10.0-20.0 16.7 mEq/L 15.9 mEq/L 17.9 mEq/L mEq/L] (02/21/18 3:39 AM) (02/20/18 4:38 AM) (02/19/18 5:17 AM) CHEM PANEL Most recent to 1 2 3 4 oldest [Reference Range]: Creatinine Lvl 4.96 mg/dL 5.75 mg/dL 6.25 mg/dL [0.50-1.40 mg/dL] *HI* *HI* *HI* (02/21/18 3:39 AM) (02/20/18 4:38 AM) (02/19/18 5:17 AM) eGFR 8 mL/min/1.73m2 1 7 mL/min/1.73m2 2 6 mL/min/ 1.73m2 3 *NA* *NA* *NA* (02/21/18 3:39 AM) (02/20/18 4:38 AM) (02/19/18 5:17 AM) BUN [7-22 mg/dL] 82 mg/dL 82 mg/dL 81 mg/dL *HI* *HI* *HI* (02/21/18 3:39 AM) (02/20/18 4:38 AM) (02/19/18 5:17 AM) B/C Ratio [6-25] 13 21 (02/19/18 5:17 AM) (02/14/18 4:36 PM) Glucose Lvl [70-99 77 mg/dL 92 mg/dL 110 mg/dL mg/dL] (02/21/18 3:39 AM) (02/20/18 4:38 AM) *HI* (02/19/18 5:17 AM) Total Protein 6.4 g/dL 7.4 g/dL 6.5 g/dL [6.4-8.4 g/dL] (02/20/18 4:38 AM) (02/19/18 5:17 AM) (02/18/18 2:16 PM) Albumin Lvl [3.5-5.0 3.4 g/dL 3.6 g/dL 2.6 g/dL 2.6 g /dL g/dL] *LOW* (02/19/18 5:17 AM) *LOW* *LOW* (02/20/18 4:38 AM) (02/18/18 2:16 PM) (02/18/18 2:16 PM) Globulin [2.7-4.2 3.0 g/dL 3.8 g/dL 3.9 g/dL g/dL] (02/20/18 4:38 AM) (02/19/18 5:17 AM) (02/18/18 2:16 PM) A/G Ratio [0.7-1.6] 1.1 0.9 0.7 (02/20/18 4:38 AM) (02/19/18 5:17 AM) (02/18/18 2:16 PM) Calcium Lvl 7.8 mg/dL 7.5 mg/dL 8.2 mg/dL [8.5-10.5 mg/dL] *LOW* *LOW* *LOW* (02/21/18 3:39 AM) (02/20/18 4:38 AM) (02/19/18 5:17 AM) ALT [0-65 unit/L] 17 unit/L 16 unit/L 16 unit/L (02/20/18 4:38 AM) (02/19/18 5:17 AM) (02/18/18 2:16 PM) AST [0-37 unit/L] 35 unit/L 33 unit/L 33 unit/L (02/20/18 4:38 AM) (02/19/18 5:17 AM) (02/18/18 2:16 PM) Alk Phos [39-136 68 unit/L 72 unit/L 79 unit/L unit/L] (02/20/18 4:38 AM) (02/19/18 5:17 AM) (02/18/18 2:16 PM) Bili Total [0.2-1.3 0.3 mg/dL 0.4 mg/dL 0.2 mg/dL mg/dL] (02/20/18 4:38 AM) (02/19/18 5:17 AM) (02/18/18 2:16 PM) Bili Direct [0.0-0.3 <0.1 mg/dL 0.1 mg/dL <0.1 mg/d L mg/dL] (02/20/18 4:38 AM) (02/19/18 5:17 AM) (02/18/18 2:16 PM) Bili Indirect >0.2 mg/dL >0.1 mg/dL [0.0-1.0 mg/dL] (02/20/18 4:38 AM) (02/18/18 2:16 PM) 1Result Comment: The eGFR is calculated using the [...] be mul tiplied by the estimated BMI. 2Result Comment: The eGFR is calculated using [...] be mul tiplied by the estimated BMI. CARDIAC ENZYMES Most recent to 1 2 3 4 oldest [Reference Range]: Total CK [12-191 221 unit/L 258 unit/L 324 unit/L unit/L] *HI* *HI* *HI* (02/16/18 8:26 AM) (02/16/18 2:07 AM) (02/15/18 7:59 PM) CK MB [0.5-3.6 11.2 ng/mL 16.3 ng/mL 22.2 ng/mL ng/mL] *HI* *HI* *HI* (02/16/18 8:26 AM) (02/16/18 2:07 AM) (02/15/18 7:59 PM) CK MB Index 5.1 6.3 1.6 [0.0-2.5] *HI* *HI* (02/14/18 4:36 P M) (02/16/18 8:26 AM) (02/16/18 2:07 AM) Troponin-I 7.70 ng/mL 1 11.00 ng/mL 2 11.00 ng/mL 3 [0.00-0.40 ng/mL] *CRIT* *CRIT* *CRIT* (02/16/18 8:26 AM) (02/16/18 2:07 AM) (02/15/18 7:59 PM) 1Result Comment: Critical Result(s) called to Pam Lema at 02/16/2018 10:06 by PRASANTH. Read back OK. 2Result Comment: Critical Result(s) called to Cem Osman at 02/16/2018 03:14 by MS. Read back OK. 3Result Comment: Critical Result(s) called to nandini martin at 02/15/2018 20:53 by douglas. Read back OK. LIPIDS Most recent to 1 2 3 4 oldest [Reference Range]: CHD Risk [3.90-5.80] 3.47 3.92 *LOW* (02/14/18 10:25 PM) (02/16/18 2:07 AM) Chol [<=199 mg/dL] 132 mg/dL 157 mg/dL (02/16/18 2:07 AM) (02/14/18 10:25 PM) Trig [<=149 mg/dL] 121 mg/dL 179 mg/dL (02/16/18 2:07 AM) *HI* (02/14/18 10:25 PM) HDL [>=61 mg/dL] 38 mg/dL 40 mg/dL *LOW* *LOW* (02/16/18 2:07 AM) (02/14/18 10:25 PM) LDL (Calculated) 70 mg/dL 81 mg/dL [<=99 mg/dL] (02/16/18 2:07 AM) (02/14/18 10:25 PM) VLDL 24 36 *NA* *NA* (02/16/18 2:07 AM) (02/14/18 10:25 PM) SPECIAL CHEMISTRY Most recent to 1 2 3 4 oldest [Reference Range]: Hgb A1C [<=5.6 %] 7.1 % 7.3 % *HI* *HI* (02/16/18 2:07 AM) (02/14/18 10:25 PM) URINE AND STOOL Most recent to 1 2 3 4 oldest [Reference Range]: UA Turbidity [Clear] Clear (02/14/18 7:01 PM) UA Color [Yellow] Yellow *NA* (02/14/18 7:01 PM) UA pH [5.0-8.0] 5.0 (02/14/18 7:01 PM) UA Spec Grav 1.010 [<=1.030] (02/14/18 7:01 PM) UA Glucose [Negative 500 mg/dL mg/dL] *ABN* (02/14/18 7:01 PM) UA Blood [Negative] Small *ABN* (02/14/18 7:01 PM) UA Ketones [Negative Negative mg/dL mg/dL] *NA* (02/14/18 7:01 PM) UA Protein [Negative >=300 mg/dL mg/dL] *ABN* (02/14/18 7:01 PM) UA Urobilinogen <=1.0 mg/dL [0.1-1.0 mg/dL] *NA* (02/14/18 7:01 PM) UA Bili [Negative] Negative *NA* (02/14/18 7:01 PM) UA Leuk Est Trace [Negative] *ABN* (02/14/18 7:01 PM) UA Nitrite Negative [Negative] (02/14/18 7:01 PM) UA WBC [0-5 /HPF] 3 /HPF (02/14/18 7:01 PM) UA RBC [0-2 /HPF] 4 /HPF *HI* (02/14/18 7:01 PM) UA Bacteria [None Occasional /HPF Seen /HPF] *NA* (02/14/18 7:01 PM) UA Sq Epi [Few /LPF] Few /LPF *NA* (02/14/18 7:01 PM) UA Hyal Cast [0-2 9 /LPF /LPF] *HI* (02/14/18 7:01 PM) IMMUNOLOGY Most recent to 1 2 3 4 oldest [Reference Range]: Hep Bs Ag [Negative] Negative *NA* (02/18/18 2:16 PM) Hep A IgM [Negative] Negative *NA* (02/18/18 2:16 PM) HEMATOLOGY Most recent to 1 2 3 4 oldest [Reference Range]: WBC [3.7-10.4 K/CMM] 7.9 K/CMM 5.6 K/CMM 5.9 K/CMM (02/20/18 4:38 AM) (02/19/18 5:17 AM) (02/18/18 5:01 AM) RBC [4.20-5.40 2.98 M/CMM 3.21 M/CMM 2.54 M/CMM M/CMM] *LOW* *LOW* *LOW* (02/20/18 4:38 AM) (02/19/18 5:17 AM) (02/18/18 5:01 AM) Hgb [12.0-16.0 g/dL] 8.7 g/dL 9.4 g/dL 7.4 g/dL *LOW* *LOW* *LOW* (02/20/18 4:38 AM) (02/19/18 5:17 AM) (02/18/18 5:01 AM) Hct [36.0-48.0 %] 25.7 % 27.6 % 22.0 % *LOW* *LOW* *LOW* (02/20/18 4:38 AM) (02/19/18 5:17 AM) (02/18/18 5:01 AM) MCV [80.0-98.0 fL] 86.3 fL 86.1 fL 86.5 fL (02/20/18 4:38 AM) (02/19/18 5:17 AM) (02/18/18 5:01 AM) MCH [27.0-31.0 pg] 29.2 pg 29.4 pg 29.0 pg (02/20/18 4:38 AM) (02/19/18 5:17 AM) (02/18/18 5:01 AM) MCHC [32.0-36.0 33.8 g/dL 34.2 g/dL 33.6 g/dL g/dL] (02/20/18 4:38 AM) (02/19/18 5:17 AM) (02/18/18 5:01 AM) RDW [11.5-14.5 %] 14.1 % 14.0 % 14.3 % (02/20/18 4:38 AM) (02/19/18 5:17 AM) (02/18/18 5:01 AM) MPV [7.4-10.4 fL] 9.1 fL 8.9 fL 8.6 fL (02/20/18 4:38 AM) (02/19/18 5:17 AM) (02/18/18 5:01 AM) Platelet [133-450 138 K/CMM 136 K/CMM 133 K/CMM K/CMM] (02/20/18 4:38 AM) (02/19/18 5:17 AM) (02/18/18 5:01 AM) Segs [45.0-75.0 %] 68.0 % 66.7 % 56.0 % (02/20/18 4:38 AM) (02/19/18 5:17 AM) (02/18/18 5:01 AM) Lymphocytes 18.4 % 23.5 % 26.3 % [20.0-40.0 %] *LOW* (02/19/18 5:17 AM) (02/18/18 5:0 1 AM) (02/20/18 4:38 AM) Monocytes [2.0-12.0 6.9 % 7.2 % 8.6 % %] (02/20/18 4:38 AM) (02/19/18 5:17 AM) (02/18/18 5:01 AM) Eosinophils [0.0-4.0 6.3 % 2.3 % 8.8 % %] *HI* (02/19/18 5:17 AM) *HI* (02/20/18 4:38 AM) (02/18/18 5:01 AM) Basophils [0.0-1.0 0.4 % 0.3 % 0.3 % %] (02/20/18 4:38 AM) (02/19/18 5:17 AM) (02/18/18 5:01 AM) Segs-Bands # 5.4 K/CMM 3.7 K/CMM 3.3 K/CMM [1.5-8.1 K/CMM] (02/20/18 4:38 AM) (02/19/18 5:17 AM) (02/18/18 5:01 AM) Lymphocytes # 1.5 K/CMM 1.3 K/CMM 1.6 K/CMM [1.0-5.5 K/CMM] (02/20/18 4:38 AM) (02/19/18 5:17 AM) (02/18/18 5:01 AM) Monocytes # [0.0-0.8 0.5 K/CMM 0.4 K/CMM 0.5 K/CMM K/CMM] (02/20/18 4:38 AM) (02/19/18 5:17 AM) (02/18/18 5:01 AM) Eosinophils # 0.5 K/CMM 0.1 K/CMM 0.5 K/CMM [0.0-0.5 K/CMM] (02/20/18 4:38 AM) (02/19/18 5:17 AM) (02/18/18 5:01 AM) PT [12.0-14.7 13.7 seconds 18.8 seconds 14.2 seconds seconds] (02/19/18 8:32 AM) *HI* (02/16/18 6:5 5 AM) (02/18/18 5:01 AM) INR [0.85-1.17] 1.05 1.56 1.10 (02/19/18 8:32 AM) *HI* (02/16/18 6:55 AM) (02/18/18 5:01 AM) PTT [22.9-35.8 59.5 seconds 70.0 seconds 63.8 seconds seconds] *HI* *HI* *HI* (02/21/18 3:39 AM) (02/20/18 4:38 AM) (02/19/18 8:32 AM) TUMOR MARKERS Most recent to 1 2 3 4 oldest [Reference Range]: AFP TM [0.0-11.0 2.1 ng/mL ng/mL] (02/18/18 2:16 PM) MOLECULAR DIAGNOSTIC Most recent to 1 2 3 4 oldest [Reference Range]: HCV RNA VirLoad [id number] IU/mL *NA* (02/18/18 2:16 PM) HCV RNA Log10 6.8 IU/mL *NA* (02/18/18 2:16 PM) Immunizations Given and Recorded Vaccine Date Status Refusal Reason pneumococcal 13-valent vaccine 01/16/17 Given influenza virus vaccine, inactivated 01/16/17 G iven pneumococcal 23-valent vaccine 02/18/16 Given Procedures Procedure Date Related Diagnosis Body Site Status Abdominal hysterectomy Completed CABG x 1 - Coronary artery bypass graft x 1 Compl eted Cholecystectomy1 Completed Cholecystotomy Completed Eye care Completed [id number] Social History Social History Type Response Substance Abuse Use: None. 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 Extracted from: Title: Discharge Summary * Author: Chucho Zhou Date: 02/21/18 Discharge Information Disposition to home Condition stable Medications: See med reconciliation form Diet: Heart healthy Discharge Plan In the event of any worsening symptom patient was to come back to the ED for further evaluation Discharge summary to greater than 35 minute Extracted from: Title: GI Consult * Author: Jorge Luis Leal MD Date: 02/18 Impression and Plan IMPRESSION 1. H/o HCV [...]
--- OUTSIDE RECORDS SUMMARY | 2020-06-17 13:08 | XMS REPORT | Summary of Care ---
Author Author [facility] Address Unknown Phone Unavailable Encounter [facility](MALOU) [id number] Date(s): 02/08/18 - 02/11/18 [facility] [address] [place] [address]- Discharge Disposition: Home or Self Care Attending Physician: Timothy Morataya MD Admitting Physician: Timothy Morataya MD Vital Signs 1 2 3 Most recent to oldest [Reference Range]: 162.56 cm (02/08/18 6:20 PM) 162.56 cm (02/08/18 12:18 PM) Height 98.5 DegF (02/11/18 11:09 AM) 98.7 DegF (02/11/18 7:23 AM) 98.7 DegF (02/11/18 4:25 AM) Temperature Oral [96.4-99.1 DegF] 131/66 mmHg (02/11/18 11:09 AM) 155/71 mmHg *HI* (02/11/18 7:23 AM) 132/70 mmHg (02/11/18 4:25 AM) Blood Pressure [90-140/60-90 mmHg] 18 BRMIN (02/11/18 11:09 AM) 18 BRMIN (02/11/18 7:23 AM) 18 BRMIN (02/11/18 4:25 AM) Respiratory Rate [14-20 BRMIN] 81 bpm (02/11/18 11:09 AM) 82 bpm (02/11/18 7:23 AM) 77 bpm (02/11/18 4:25 AM) Peripheral Pulse Rate [60-100 bpm] 57.045 kg (02/09/18 5:31 PM) 58.182 kg (02/08/18 6:20 PM) 68.182 kg (02/08/18 12:18 PM) Weight 22.02 m2 (02/08/18 6:20 PM) 25.8 m2 (02/08/18 12:18 PM) Body Mass Index Problem List Condition Effective Dates Status Health Status Informan t Alzheimer Resolved disease(Confirmed) Cholelithiasis(Confi Resolved rmed) Diabetes Active mellitus(Confirmed) Hepatitis Active C(Confirmed) Myocardial Resolved infarct(Confirmed) Stroke(Confirmed) Resolved Allergies, Adverse Reactions, Alerts Substance Reaction Severity Status NKDA Active Medications acetaminophen 650 mg, 2 tab, Route: PO, Drug form: TAB, Q4H, Dosing Weight 58.182, kg, PRN Hea dache 1-5, Start date: 02/08/18 18:21:00 CDT, Duration: 30 day, Stop date: 03/10 18:20:00 CDT Notes: Do not exceed 4 gm/day. (Same as: Tylenol) Start Date: 02/08/18 Stop Date: 02/11/18 Status: Discontinued aspirin 324 mg, 4 tab, Route: PO, Drug form: CHEWTAB, ONCE, Dosing Weight 68.182, kg, Pr iority: STAT, Start date: 02/08/18 13:01:00 CDT, Stop date: 02/08/18 13:01:00 CD T Notes: Take with food. Start Date: 02/08/18 Stop Date: 02/08/18 Status: Completed aspirin 81 mg tablet, enteric coated 81 mg, 1 tab, Route: PO, Drug form: ECTAB, Daily, Dosing Weight 58.182, kg, Star t date: 02/09/18 9:00:00 CDT, Duration: 30 day, Stop date: 03/10/18 9:00:00 CDT Notes: Do not crush or chew.(Same As: Ecotrin) Start Date: 02/09/18 Stop Date: 02/11/18 Status: Discontinued atorvastatin 40 mg, 1 tab, Route: PO, Drug form: TAB, Bedtime, Dosing Weight 58.182, kg, Star t date: 02/08/18 21:00:00 CDT, Duration: 30 day, Stop date: 03/09/18 21:00:00 CD T Notes: (Same as: Lipitor) Start Date: 02/08/18 Stop Date: 02/11/18 Status: Discontinued calcium gluconate 2 gm, 20 mL, Route: IV, Drug form: INJ, ONCE, Dosing Weight 57.045, kg, Start da te: 02/09/18 17:46:00 CDT, Stop date: 02/09/18 17:46:00 CDT Notes: WASTE: F/P - Sink; E - Municipal Trash Bin Start Date: 02/09/18 Stop Date: 02/09/18 Status: Deleted calcium gluconate + Sodium Chloride 0.9% IV 100 mL 2,000 mg, 20 mL, Route: IV, ONCE, Start date: 02/09/18 18:05:00 CDT, Stop date: 02/09/18 18:05:00 CDT Notes: WASTE: F/P - Sink; E - Municipal Trash Bin Start Date: 02/09/18 Stop Date: 02/09/18 Status: Completed carvedilol 6.25 mg, 2 tab, Route: PO, Drug form: TAB, Q12H, Dosing Weight 68.182, kg, Start date: 02/08/18 19:00:00 CDT, Duration: 30 day, Stop date: 03/10/18 9:00:00 CDT Notes: Give with food. (Same As: Coreg) Start Date: 02/08/18 Stop Date: 02/11/18 Status: Discontinued cloNIDine 0.1 mg oral tablet 0.1 mg, Route: PO, Drug form: TAB, ONCE, Dosing Weight 68.182, kg, Start date: 0 02/08/18 17:26:00 CDT, Stop date: 02/08/18 17:26:00 CDT Start Date: 02/08/18 Stop Date: 02/08/18 Status: Completed Dextrose 50% Syringe 25 gm, 50 mL, Route: IVP, Drug Form: INJ, Dosing Weight 57.045, kg, ONCE, Start date: 02/09/18 17:46:00 CDT, Stop date: 02/09/18 17:46:00 CDT Start Date: 02/09/18 Stop Date: 02/09/18 Status: Completed Dextrose 50% Syringe 25 gm, 50 mL, Route: IVP, Drug Form: INJ, Dosing Weight 58.182, kg, PRN, PRN Blo od Glucose Results, Start date: 02/08/18 18:25:00 CDT, Duration: 30 day, Stop da te: 03/10/18 18:24:00 CDT Start Date: 02/08/18 Stop Date: 02/11/18 Status: Discontinued Dextrose 50% Syringe 12.5 gm, 25 mL, Route: IVP, Drug Form: INJ, Dosing Weight 58.182, kg, PRN, PRN B lood Glucose Results, Start date: 02/08/18 18:25:00 CDT, Duration: 30 day, Stop date: 03/10/18 18:24:00 CDT Start Date: 02/08/18 Stop Date: 02/11/18 Status: Discontinued diphenhydrAMINE 25 mg, 1 tab, Route: PO, Drug form: TAB, Bedtime, Dosing Weight 58.182, kg, PRN Insomnia, Start date: 02/08/18 18:21:00 CDT, Duration: 30 day, Stop date: 18:20:00 CDT Start Date: 02/08/18 Stop Date: 02/11/18 Status: Discontinued escitalopram 10 mg, 1 tab, Route: PO, Drug form: TAB, Daily, Dosing Weight 58.182, kg, Start date: 02/10/18 9:00:00 CDT, Duration: 30 day, Stop date: 03/11/18 9:00:00 CDT Notes: (Same as: Lexapro) Start Date: 02/10/18 Stop Date: 02/11/18 Status: Discontinued escitalopram 10 mg oral tablet 10 mg = 1 tab, PO, Daily, # 30 tab, 0 Refill(s) Start Date: 02/08/18 Status: Ordered glucagon 1 mg, Route: IM, Drug form: PDR/INJ, PRN, Dosing Weight 58.182, kg, PRN Blood Gl ucose Results, Start date: 02/08/18 18:25:00 CDT, Duration: 30 day, Stop date: 0 03/10/18 18:24:00 CDT Start Date: 02/08/18 Stop Date: 02/11/18 Status: Discontinued hydrALAZINE 10 mg, 0.5 mL, Route: IVP, Drug form: INJ, Q4H, Dosing Weight 58.182, kg, PRN Hy pertension, Start date: 02/08/18 18:22:00 CDT, Duration: 30 day, Stop date: 02/26 01/13 18:21:00 CDT Notes: (Same as: Apresoline)Push over 5 minutes Start Date: 02/08/18 Stop Date: 02/11/18 Status: Discontinued insulin glargine 10 unit, 0.1 mL, Route: SUB-Q, Drug form: SOLN, Bedtime, Dosing Weight 58.182, k g, Start date: 02/08/18 21:00:00 CDT, Duration: 30 day, Stop date: 03/09/18 21:0 0:00 CDT Notes: (Same as: Lantus)Do not hold insulin without contacting prescriberWASTE: F/P - Black; E - Municipal Trash Bin "single patient use only" Start Date: 02/08/18 Stop Date: 02/09/18 Status: Voided With Results insulin glargine 100 units/mL subcutaneous solution 20 unit, Route: SUB-Q, Drug form: SOLN, Daily, Dosing Weight 58.182, kg, Start d ate: 02/10/18 9:00:00 CDT, Duration: 30 day, Stop date: 03/11/18 9:00:00 CDT Start Date: 02/10/18 Stop Date: 02/09/18 Status: Deleted insulin lispro 2 unit, 0.02 mL, Route: SUB-Q, Drug form: SOLN, Bedtime, Dosing Weight 58.182, k g, PRN Blood Glucose Results, Start date: 02/08/18 18:25:00 CDT, Duration: 30 da y, Stop date: 03/10/18 18:24:00 CDT Notes: (Same as: Humalog ) Roll in palms of hands gently; Do not shake `vigorou sly. "Single Patient Use Only " WASTE: F/P - Black; E - Municipal Trash [facility] St able for 28 days at room temperature.Expires in days from Da te Start Date: 02/08/18 Stop Date: 02/11/18 Status: Discontinued insulin lispro 3 unit, 0.03 mL, Route: SUB-Q, Drug form: SOLN, Bedtime, Dosing Weight 58.182, k g, PRN Blood Glucose Results, Start date: 02/08/18 18:25:00 CDT, Duration: 30 da y, Stop date: 03/10/18 18:24:00 CDT Notes: (Same as: Humalog ) Roll in palms of hands gently; Do not shake `vigorou sly. "Single Patient Use Only " WASTE: F/P - Black; E - [facility] Trash [facility] St able for 28 days at room temperature.Expires in days from Da te Start Date: 02/08/18 Stop Date: 02/11/18 Status: Discontinued insulin lispro 4 unit, 0.04 mL, Route: SUB-Q, Drug form: SOLN, Bedtime, Dosing Weight 58.182, k g, PRN Blood Glucose Results, Start date: 02/08/18 18:25:00 CDT, Duration: 30 da y, Stop date: 03/10/18 18:24:00 CDT Notes: (Same as: Humalog ) Roll in palms of hands gently; Do not shake `vigorou sly. "Single Patient Use Only " WASTE: F/P - Black; E - [facility] Trash [facility] St able for 28 days at room temperature.Expires in days from Da te Start Date: 02/08/18 Stop Date: 02/11/18 Status: Discontinued insulin lispro 1 unit, 0.01 mL, Route: SUB-Q, Drug form: SOLN, Bedtime, Dosing Weight 58.182, k g, PRN Blood Glucose Results, Start date: 02/08/18 18:25:00 CDT, Duration: 30 da y, Stop date: 03/10/18 18:24:00 CDT Notes: (Same as: Humalog ) Roll in palms of hands gently; Do not shake `vigorou sly. "Single Patient Use Only " WASTE: F/P - Black; E - [facility] Tr[facility] St able for 28 days at room temperature.Expires in days from Da te Start Date: 02/08/18 Stop Date: 02/11/18 Status: Discontinued insulin lispro 4 unit, 0.04 mL, Route: SUB-Q, Drug form: SOLN, TID-Before Meals, Dosing Weight 58.182, kg, PRN Blood Glucose Results, Start date: 02/08/18 18:25:00 CDT, Durati on: 30 day, Stop date: 03/10/18 18:24:00 CDT Notes: (Same as: Humalog ) Roll in palms of hands gently; Do not shake `vigorou sly. "Single Patient Use Only " WASTE: F/P - Black; E - [facility] St able for 28 days at room temperature.Expires in days from Da te Start Date: 02/08/18 Stop Date: 02/11/18 Status: Discontinued insulin lispro 5 unit, 0.05 mL, Route: SUB-Q, Drug form: SOLN, TID-Before Meals, Dosing Weight 58.182, kg, PRN Blood Glucose Results, Start date: 02/08/18 18:25:00 CDT, Durati on: 30 day, Stop date: 03/10/18 18:24:00 CDT Notes: (Same as: Humalog ) Roll in palms of hands gently; Do not shake `vigorou sly. "Single Patient Use Only " WASTE: F/P - Black; E - [facility] St able for 28 days at room temperature.Expires in days from Da te Start Date: 02/08/18 Stop Date: 02/11/18 Status: Discontinued insulin lispro 3 unit, 0.03 mL, Route: SUB-Q, Drug form: SOLN, TID-Before Meals, Dosing Weight 58.182, kg, PRN Blood Glucose Results, Start date: 02/08/18 18:25:00 CDT, Durati on: 30 day, Stop date: 03/10/18 18:24:00 CDT Notes: (Same as: Humalog ) Roll in palms of hands gently; Do not shake `vigorou sly. "Single Patient Use Only " WASTE: F/P - Black; E - [facility] Tr[facility] St able for 28 days at room temperature.Expires in days from Da te Start Date: 02/08/18 Stop Date: 02/11/18 Status: Discontinued insulin lispro 2 unit, 0.02 mL, Route: SUB-Q, Drug form: SOLN, TID-Before Meals, Dosing Weight 58.182, kg, PRN Blood Glucose Results, Start date: 02/08/18 18:25:00 CDT, Durati on: 30 day, Stop date: 03/10/18 18:24:00 CDT Notes: (Same as: Humalog ) Roll in palms of hands gently; Do not shake `vigorou sly. "Single Patient Use Only " WASTE: F/P - Black; E - [facility] Tr[facility] St able for 28 days at room temperature.Expires in days from Da te Start Date: 02/08/18 Stop Date: 02/11/18 Status: Discontinued insulin lispro 1 unit, 0.01 mL, Route: SUB-Q, Drug form: SOLN, TID-Before Meals, Dosing Weight 58.182, kg, PRN Blood Glucose Results, Start date: 02/08/18 18:25:00 CDT, Durati on: 30 day, Stop date: 03/10/18 18:24:00 CDT Notes: (Same as: Humalog ) Roll in palms of hands gently; Do not shake `vigorou sly. "Single Patient Use Only " WASTE: F/P - Black; E - [facility] St able for 28 days at room temperature.Expires in days from Da te Start Date: 02/08/18 Stop Date: 02/11/18 Status: Discontinued Insulin regular 10 unit, 0.1 mL, Route: IVP, Drug form: INJ, ONCE, Dosing Weight 57.045, kg, Sta rt date: 02/09/18 17:46:00 CDT, Stop date: 02/09/18 17:46:00 CDT Notes: (Same as: Humulin R and NovoLIN R)WASTE: F/P - Black; E - Municipal Trash Bin (Do not shake) Start Date: 02/09/18 Stop Date: 02/09/18 Status: Completed Kayexalate 30 gm, 120 mL, Route: PO, Drug form: SUSP, ONCE, Dosing Weight 58.182, kg, Start date: 02/09/18 14:41:00 CDT, Stop date: 02/09/18 14:41:00 CDT Notes: (sodium polystyrene sulfonate 15 gm/60 ml MERRY) Shake well before use. (Same as: Kayexalate, SPS) Start Date: 02/09/18 Stop Date: 02/09/18 Status: Completed Lantus 100 units/mL 20 unit, SUB-Q, Bedtime, # 10 mL, 3 Refill(s) Start Date: 02/08/18 Stop Date: 02/09/18 Status: Deleted Lantus 100 units/mL 20 unit, 0.2 mL, Route: SUB-Q, Drug form: SOLN, Bedtime, Dosing Weight 58.182, k g, Start date: 02/09/18 21:00:00 CDT, Duration: 30 day, Stop date: 03/10/18 21:0 0:00 CDT Notes: (Same as: Lantus)Do not hold insulin without contacting prescriberWASTE: F/P - Black; E - Municipal Trash Bin "single patient use only" Start Date: 02/09/18 Stop Date: 02/11/18 Status: Discontinued Lasix 40 mg, 4 mL, Route: IVP, Drug form: INJ, ONCE, Dosing Weight 57.045, kg, Start d ate: 02/09/18 17:45:00 CDT, Stop date: 02/09/18 17:45:00 CDT Notes: (Same as: Lasix) MEDICATION WASTE Product Size: 40 mgProduct Was lorena: ___ mg Start Date: 02/09/18 Stop Date: 02/09/18 Status: Completed Lasix 40 mg, 4 mL, Route: IVP, Drug form: INJ, Daily, Dosing Weight 58.182, kg, Start date: 02/08/18 19:00:00 CDT, Duration: 30 day, Stop date: 03/10/18 9:00:00 CDT Notes: (Same as: Lasix) MEDICATION WASTE Product Size: 40 mgProduct Was lorena: ___ mg Start Date: 02/08/18 Stop Date: 02/11/18 Status: Discontinued lisinopril 20 mg oral tablet 20 mg = 1 tab, PO, Daily, # 30 tab, 0 Refill(s) Start Date: 02/08/18 Stop Date: 02/11/18 Status: Discontinued metoclopramide 5 mg oral tablet 5 mg = 0, PO, QID-Before Meals, PRN nausea and vomiting, # 40 tab, 0 Refill(s) Start Date: 02/08/18 Stop Date: 02/18/18 Status: Ordered metoclopramide 5 mg oral tablet 5 mg, 1 tab, Route: PO, Drug form: TAB, QID-Before Meals, Dosing Weight 58.182, kg, PRN Nausea & Vomiting, Start date: 02/09/18 10:40:00 CDT, Duration: 30 day, Stop date: 03/11/18 10:39:00 CDT Notes: (Same as: Reglan) Take 30 min before meals Start Date: 02/09/18 Stop Date: 02/11/18 Status: Discontinued morphine Sulfate 6 mg, 3 mL, Route: PO, Drug form: SOLN, Q15Min, Dosing Weight 58.182, kg, PRN Ch est Pain, Start date: 02/08/18 18:21:00 CDT, Duration: 2 doses or times, Stop da te: Limited # of times Notes: (Same as:MORPhine Sulfate) Start Date: 02/08/18 Stop Date: 02/11/18 Status: Discontinued nitroglycerin 0.4 mg, 1 tab, Route: SL, Drug form: TAB, Q5Min, Dosing Weight 68.182, kg, PRN C hest Pain, Start date: 02/08/18 13:01:00 CDT, Duration: 3 doses or times, Stop d ate: Limited # of times Notes: (Same as:Nitroquick, Nitrostat)"Do Not Crush" Sublingual tablet Start Date: 02/08/18 Stop Date: 02/08/18 Status: Voided With Results nitroglycerin 2% topical ointment 1 inch, Route: TOP, Dosing Weight 68.182, kg, ONCE, Start date: 02/08/18 17:26:0 0 CDT, Stop date: 02/08/18 17:26:00 CDT Start Date: 02/08/18 Stop Date: 02/08/18 Status: Completed nitroglycerin SL Tab 0.4 mg, 1 tab, Route: SL, Drug form: TAB, Q5Min, Dosing Weight 58.182, kg, PRN C hest Pain, Start date: 02/08/18 18:21:00 CDT, Duration: 3 doses or times, Stop d ate: Limited # of times Notes: (Same as:Nitroquick, Nitrostat)"Do Not Crush" Sublingual tablet Start Date: 02/08/18 Stop Date: 02/11/18 Status: Discontinued omeprazole 20 mg, Route: PO, Drug form: DRC, Daily, Dosing Weight 58.182, kg, Start date: 0 02/10/18 9:00:00 CDT, Duration: 30 day, Stop date: 03/11/18 9:00:00 CDT Start Date: 02/10/18 Stop Date: 02/09/18 Status: Deleted omeprazole 20 mg oral delayed release capsule 20 mg = 1 cap, PO, Daily, # 30 cap, 0 Refill(s) Start Date: 02/08/18 Stop Date: 03/10/18 Status: Ordered ondansetron 4 mg, 1 tab, Route: PO, Drug form: TAB, Q8H, Dosing Weight 58.182, kg, PRN Nause a & Vomiting, Start date: 02/08/18 18:21:00 CDT, Duration: 30 day, Stop date: 03/10/18 18:20:00 CDT Notes: (Same as: Zofran) Start Date: 02/08/18 Stop Date: 02/11/18 Status: Discontinued predniSONE 10 mg oral tablet 10 mg = 1 tab, PO, Daily, # 30 tab, 3 Refill(s) Start Date: 02/08/18 Stop Date: 03/10/18 Status: Ordered Protonix 40 mg, 1 tab, Route: PO, Drug form: ECTAB, Q24H, Start date: 02/09/18 16:30:00 C DT, Duration: 30 day, Stop date: 03/10/18 16:30:00 CDT Notes: Tablet should not be chewed or crushed.(Same as: Protonix) Start Date: 02/09/18 Stop Date: 02/11/18 Status: Discontinued Rocephin + sterile water 10 mL 1 gm, Route: IVPB, ONCE, Dosing Weight 58.182, kg, Start date: 02/08/18 19:04:00 CDT, Stop date: 02/08/18 19:04:00 CDT, ABX Indication: Urinary Tract Infection Notes: (Same As: Rocephin).Use with 100 mL NS and infuse over 30 min MEDICA TION WASTE Product Size: 1000 mgProduct Wasted: ___ mg Start Date: 02/08/18 Stop Date: 02/08/18 Status: Completed Rocephin + sterile water 10 mL 1 gm, Route: IV, [id number], Dosing Weight 58.182, kg, Start date: 02/09/18 20:00:0 0 CDT, Duration: 7 day, Stop date: 02/15/18 20:00:00 CDT, ABX Indication: Urinar y Tract Infection Notes: (Same As: Rocephin).Use with 100 mL NS and infuse over 30 min MEDICA TION WASTE Product Size: 1000 mgProduct Wasted: ___ mg Start Date: 02/09/18 Stop Date: 02/11/18 Status: Discontinued Saline Flush 0.9% 10 ml, Route: IVP, Drug Form: INJ, Dosing Weight 58.182, kg, PRN, PRN Line Flush , Start date: 02/08/18 18:21:00 CDT, Duration: 30 day, Stop date: 03/10/18 18:20 :00 CDT Notes: (Same as: BD Posiflush) Start Date: 02/08/18 Stop Date: 02/11/18 Status: Discontinued Saline Flush 0.9% 10 ml, Route: IVP, Drug Form: INJ, Dosing Weight 58.182, kg, Q12H, Start date: 0 02/08/18 21:00:00 CDT, Duration: 30 day, Stop date: 03/10/18 9:00:00 CDT Notes: (Same as: BD Posiflush) Start Date: 02/08/18 Stop Date: 02/11/18 Status: Discontinued Saline Flush 0.9% 10 mL, Route: IVP, Drug Form: INJ, Dosing Weight 68.182, kg, PRN, PRN Line Flush , Start date: 02/08/18 13:01:00 CDT, Duration: 30 day, Stop date: 03/10/18 13:00 :00 CDT Notes: preservative free. Start Date: 02/08/18 Stop Date: 02/11/18 Status: Discontinued sodium bicarbonate 650 mg, 1 tab, Route: PO, Drug form: TAB, BID, Dosing Weight 58.182, kg, Start d ate: 02/09/18 17:00:00 CDT, Duration: 30 day, Stop date: 03/11/18 9:00:00 CDT Notes: "Dissolve tablet in a glass of water prior to oral administration. STOMA CH WARNING: To avoid serious injury, do not take until tablet is completely diss olved. It is very important not to take this product when overly full from food or drink." Start Date: 02/09/18 Stop Date: 02/11/18 Status: Discontinued sodium bicarbonate 650 mg, PO, BID, 0 Refill(s) Start Date: 02/08/18 Stop Date: 02/11/18 Status: Discontinued sulfaSALAzine 500 mg oral tablet 500 mg = 1 tab, PO, BID, # 60 tab, 0 Refill(s) Start Date: 02/08/18 Stop Date: 03/10/18 Status: Ordered Results ELECTROLYTES Most recent to 1 2 3 4 oldest [Reference Range]: Sodium Lvl [135-145 139 mEq/L 139 mEq/L 141 mEq/L 141 mE q/L mEq/L] (02/11/18 4:44 AM) (02/10/18 4:22 AM) (02/09/18 3:38 A M) (02/09/18 3:38 AM) Potassium Lvl 4.5 mEq/L 4.3 mEq/L 4.9 mEq/L [3.5-5.1 mEq/L] (02/11/18 4:44 AM) (02/10/18 4:22 AM) (02/09/18 8:37 PM) Chloride Lvl [95-109 106 mEq/L 106 mEq/L 108 mEq/L 107 m Eq/L mEq/L] (02/11/18 4:44 AM) (02/10/18 4:22 AM) (02/09/18 3:38 A M) (02/09/18 3:38 AM) CO2 [24-32 mEq/L] 27 mEq/L 26 mEq/L 27 mEq/L 26 mEq/L (02/11/18 4:44 AM) (02/10/18 4:22 AM) (02/09/18 3:38 AM) ( 3:38 AM) AGAP [10.0-20.0 10.5 mEq/L 11.3 mEq/L 11.3 mEq/L 13.3 mEq/L mEq/L] (02/11/18 4:44 AM) (02/10/18 4:22 AM) (02/09/18 3:38 A M) (02/09/18 3:38 AM) CHEM PANEL Most recent to 1 2 3 4 oldest [Reference Range]: Creatinine Lvl 2.34 mg/dL 2.12 mg/dL 2.00 mg/dL 2.00 mg/dL [0.50-1.40 mg/dL] *HI* *HI* *HI* *HI* (02/11/18 4:44 AM) (02/10/18 4:22 AM) (02/09/18 3:38 AM) ( 3:38 AM) eGFR 21 mL/min/1.73m2 1 24 mL/min/1.73m2 2 25 mL/min/1.7 3m2 3 25 mL/min/1.73m2 4 *NA* *NA* *NA* *NA* (02/11/18 4:44 AM) (02/10/18 4:22 AM) (02/09/18 3:38 AM) ( 3:38 AM) BUN [7-22 mg/dL] 46 mg/dL 40 mg/dL 41 mg/dL 41 mg/dL *HI* *HI* *HI* *HI* (02/11/18 4:44 AM) (02/10/18 4:22 AM) (02/09/18 3:38 AM) ( 3:38 AM) B/C Ratio [6-25] 22 (02/08/18 1:09 PM) Glucose Lvl [70-99 76 mg/dL 83 mg/dL 179 mg/dL 175 mg/ dL mg/dL] (02/11/18 4:44 AM) (02/10/18 4:22 AM) *HI* *H I* (02/09/18 3:38 AM) (02/09/18 3:38 AM) Total Protein 6.7 g/dL [6.4-8.4 g/dL] (02/08/18 1:09 PM) Albumin Lvl [3.5-5.0 2.8 g/dL g/dL] *LOW* (02/08/18 1:09 PM) Globulin [2.7-4.2 3.9 g/dL g/dL] (02/08/18 1:09 PM) A/G Ratio [0.7-1.6] 0.7 (02/08/18 1:09 PM) Calcium Lvl 8.3 mg/dL 8.5 mg/dL 7.9 mg/dL 8.0 mg/dL [8.5-10.5 mg/dL] *LOW* (02/10/18 4:22 AM) *LOW* *LO W* (02/11/18 4:44 AM) (02/09/18 3:38 AM) (02/09/18 3:38 AM) Phosphorus [2.5-4.5 4.2 mg/dL mg/dL] (02/08/18 1:09 PM) Magnesium Lvl 2.5 mg/dL 2.5 mg/dL [1.8-2.4 mg/dL] *HI* *HI* (02/09/18 3:38 AM) (02/08/18 1:09 PM) ALT [0-65 unit/L] 14 unit/L (02/08/18 1:09 PM) AST [0-37 unit/L] 30 unit/L (02/08/18 1:09 PM) Alk Phos [39-136 103 unit/L unit/L] (02/08/18 1:09 PM) Bili Total [0.2-1.3 0.2 mg/dL mg/dL] (02/08/18 1:09 PM) Ammonia [<=45.0 18.0 uMol/L uMol/L] (02/08/18 1:09 PM) 1Result Comment: The eGFR is calculated [...] 4 oldest [Reference Range]: Total CK [12-191 70 unit/L 82 unit/L 89 unit/L unit/L] (02/09/18 12:45 AM) (02/08/18 6:56 PM) (02/08/18 1:09 PM) CK MB [0.5-3.6 1.8 ng/mL 1.8 ng/mL ng/mL] (02/08/18 6:56 PM) (02/08/18 1:09 PM) CK MB Index 2.2 2.0 [0.0-2.5] (02/08/18 6:56 PM) (02/08/18 1:09 PM) Troponin-I <0.02 ng/mL <0.02 ng/mL <0.02 ng/mL [0.00-0.40 ng/mL] (02/09/18 12:45 AM) (02/08/18 6:56 PM) (02/08 1:09 PM) BNP [<=100 pg/mL] 78 pg/mL 85 pg/mL (02/09/18 3:38 AM) (02/08/18 1:09 PM) LIPIDS Most recent to 1 2 3 4 oldest [Reference Range]: CHD Risk [3.90-5.80] 4.38 (4/14/18 3:38 AM) Chol [<=199 mg/dL] 171 mg/dL (02/09/18 3:38 AM) Trig [<=149 mg/dL] 226 mg/dL *HI* (02/09/18 3:38 AM) HDL [>=61 mg/dL] 39 mg/dL *LOW* (02/09/18 3:38 AM) LDL (Calculated) 87 mg/dL [<=99 mg/dL] (02/09/18 3:38 AM) VLDL 45 *NA* (02/09/18 3:38 AM) SPECIAL CHEMISTRY Most recent to 10 30 3 4 oldest [Reference Range]: Hgb A1C [<=5.6 %] 7.7 % *HI* (02/09/18 3:38 AM) ANEMIA STUDY Most recent to oldest [Reference Range]: Iron [30-160 ug/dl] 46 ug/dl (02/09/18 3:38 AM) % Satur Fe [12-57 %] 20 % (02/09/18 3:38 AM) UIBC [110-370 ug/dl] 188 ug/dl (02/09/18 3:38 AM) TIBC [228-428 ug/dl] 234 ug/dl (02/09/18 3:38 AM) URINE AND STOOL Most recent to oldest [Reference Range]: UA Turbidity [Clear] Clear (02/08/18 2:25 PM) UA Color Ltyellow *NA* (02/08/18 2:25 PM) UA pH [5.0-8.0] 6.0 (02/08/18 2:25 PM) UA Spec Grav 1.012 [<=1.030] (02/08/18 2:25 PM) UA Glucose [Negative 50 mg/dL mg/dL] *ABN* (02/08/18 2:25 PM) UA Blood [Negative] Negative (02/08/18 2:25 PM) UA Ketones [Negative Negative mg/dL mg/dL] *NA* (02/08/18 2:25 PM) UA Protein [Negative >=300 mg/dL mg/dL] *ABN* (02/08/18 2:25 PM) UA Urobilinogen <=1.0 mg/dL [0.1-1.0 mg/dL] *NA* (02/08/18 2:25 PM) UA Bili [Negative] Negative *NA* (02/08/18 2:25 PM) UA Leuk Est Negative [Negative] (02/08/18 2:25 PM) UA Nitrite Negative [Negative] (02/08/18 2:25 PM) UA WBC [0-5 /HPF] 2 /HPF (02/08/18 2:25 PM) UA RBC [0-2 /HPF] 3 /HPF *HI* (02/08/18 2:25 PM) UA Bacteria [None Moderate /HPF Seen /HPF] *ABN* (02/08/18 2:25 PM) UA Sq Epi [Few /LPF] Occasional /LPF *NA* (02/08/18 2:25 PM) UA Hyal Cast [0-2 1 /LPF /LPF] (02/08/18 2:25 PM) HEMATOLOGY Most recent to 1 2 3 4 oldest [Reference Range]: WBC [3.7-10.4 K/CMM] 5.9 K/CMM 5.2 K/CMM 5.1 K/CMM (02/10/18 4:22 AM) (02/09/18 3:38 AM) (02/09/18 3:38 AM) RBC [4.20-5.40 2.99 M/CMM 2.76 M/CMM 2.79 M/CMM M/CMM] *LOW* *LOW* *LOW* (02/10/18 4:22 AM) (02/09/18 3:38 AM) (02/09/18 3:38 AM) Hgb [12.0-16.0 g/dL] 8.8 g/dL 8.0 g/dL 8.0 g/dL *LOW* *LOW* *LOW* (02/10/18 4:22 AM) (02/09/18 3:38 AM) (02/09/18 3:38 AM) Hct [36.0-48.0 %] 26.0 % 24.1 % 24.2 % *LOW* *LOW* *LOW* (02/10/18 4:22 AM) (02/09/18 3:38 AM) (02/09/18 3:38 AM) MCV [80.0-98.0 fL] 86.9 fL 87.4 fL 86.8 fL (02/10/18 4:22 AM) (02/09/18 3:38 AM) (02/09/18 3:38 AM) MCH [27.0-31.0 pg] 29.3 pg 28.8 pg 28.6 pg (02/10/18 4:22 AM) (02/09/18 3:38 AM) (02/09/18 3:38 AM) MCHC [32.0-36.0 33.7 g/dL 33.0 g/dL 32.9 g/dL g/dL] (02/10/18 4:22 AM) (02/09/18 3:38 AM) (02/09/18 3:38 AM) RDW [11.5-14.5 %] 14.5 % 14.2 % 14.3 % (02/10/18 4:22 AM) (02/09/18 3:38 AM) (02/09/18 3:38 AM) MPV [7.4-10.4 fL] 8.8 fL 8.6 fL 8.6 fL (02/10/18 4:22 AM) (02/09/18 3:38 AM) (02/09/18 3:38 AM) Platelet [133-450 143 K/CMM 123 K/CMM 127 K/CMM K/CMM] (02/10/18 4:22 AM) *LOW* *LOW* (02/09/18 3:38 AM) (02/09/18 3:38 AM) Segs [45.0-75.0 %] 45.8 % 48.0 % 48.0 % (02/10/18 4:22 AM) (02/09/18 3:38 AM) (02/09/18 3:38 AM) Lymphocytes 25.3 % 26.2 % 26.7 % [20.0-40.0 %] (02/10/18 4:22 AM) (02/09/18 3:38 AM) (02/09/18 3:38 AM) Monocytes [2.0-12.0 14.6 % 10.7 % 10.3 % %] *HI* (02/09/18 3:38 AM) (02/09/18 3:3 8 AM) (02/10/18 4:22 AM) Eosinophils [0.0-4.0 13.7 % 14.7 % 14.6 % %] *HI* *HI* *HI* (02/10/18 4:22 AM) (02/09/18 3:38 AM) (02/09/18 3:38 AM) Basophils [0.0-1.0 0.6 % 0.4 % 0.4 % %] (02/10/18 4:22 AM) (02/09/18 3:38 AM) (02/09/18 3:38 AM) Segs-Bands # 2.7 K/CMM 2.5 K/CMM 2.4 K/CMM [1.5-8.1 K/CMM] (02/10/18 4:22 AM) (02/09/18 3:38 AM) (02/09/18 3:38 AM) Lymphocytes # 1.5 K/CMM 1.4 K/CMM 1.4 K/CMM [1.0-5.5 K/CMM] (02/10/18 4:22 AM) (02/09/18 3:38 AM) (02/09/18 3:38 AM) Monocytes # [0.0-0.8 0.9 K/CMM 0.6 K/CMM 0.5 K/CMM K/CMM] *HI* (02/09/18 3:38 AM) (02/09/18 3:3 8 AM) (02/10/18 4:22 AM) Eosinophils # 0.8 K/CMM 0.8 K/CMM 0.7 K/CMM [0.0-0.5 K/CMM] *HI* *HI* *HI* (02/10/18 4:22 AM) (02/09/18 3:38 AM) (02/09/18 3:38 AM) Immunizations Given and Recorded Vaccine Date Status Refusal Reason pneumococcal 13-valent vaccine 01/16/17 Given influenza virus vaccine, inactivated 01/16/17 G iven pneumococcal 23-valent vaccine 4/22/16 Given Procedures Procedure Date Related Diagnosis Body Site Status Abdominal hysterectomy Completed CABG x 1 - Coronary artery bypass graft x 1 Compl eted Cholecystectomy1 Completed Cholecystotomy Completed Eye care Completed 30019 Social History Social History Type Response Substance Abuse Use: None. Alcohol Never Smoking Status Never smoker; Ready to kitchen ge: No; Concerns about tobacco use in household: No; Exposure to Tobacco Smoke None; Cig arette Smoking Last 365 Days No; Reg Smoking Cessation Counseling No entered on: 02/08/18 Assessment and Plan Extracted from: Title: Progress Note Author: Derrick Bullock MD Date: [...] - Continue ASA 81. Started on statin an d BB # HFpEF - Started coreg as above. - Given her edema, on IV lasix but can b e d/c home on po when ready # HTN - Holding ELIZABETH-i given MÓNICA - Started on coreg. IV hydralazine prn # MÓNICA on CKD - Renal on board # IDDM - On SSI # Anemia - Appears at baseline. Extracted from: Title: Clinical Document Author: Timothy Morataya MD Date: 02/11/18 Discharge Summary [facility] Timothy Morataya MD Discharge Diagnosis: [...] and she will follow-up as an outpatient VitalsTmp(F)[id number] 02/11 07:[id number]/106600--- 02/11 04:[id number]/001537--- 02/10 23:2798.193350/342708--- 02/10 19:[id number]/[id number]--- 02/10 15:4098.118307/[id number]--- 24 Hr Tmax: 98.7F (37.06c) at 02/11 07:2 3Vital Signs are the last 5 in the past 48 hours. Notify your physician if: Pain Follow Up When: 2 Weeks Reason for Follow Up: Follow Up on Treatment Diet: Continue Home Diet Activity: No restrictions Labs (Last four charted values) WBC 5.9(JAN 15)5.2(JAN 14)5.1(JAN 14)6.3(FEB 08) Hgb L 8.8(JAN 15)L 8.0(JAN 14)L 8.0(JAN 14)L 8.6(JAN 13) Hct L 26.0(JAN 15)L 24.1(JAN 14)L 24.2(JAN 14)L 26.3(JAN 13) Plt 143(JAN 15)L 123(JAN 14)L 127(JAN 14)L 123(JAN 13) Na 139(JAN 16)139(JAN 15)141(JAN 14)141(JAN 14) K 4.5(JAN 16)4.3(JAN 15)4.9(JAN 14)4.9(JAN 14) CO2 27(JAN 16)26(JAN 15)26(JAN 14)27(JAN 14) Cl 106(JAN 16)106(JAN 15)108(JAN 14)107(JAN 14) Cr H 2.34(JAN 16)H 2.12(JAN 15)H 2.00(JAN 14)H 2.00(JAN 14) BUN H 46(JAN 16)H 40(JAN 15)H 41(JAN 14)H 41(JAN 14) Glucose Random 76(JAN 16)83(JAN 15)H 175(JAN 14)H 179(JAN 14) Mg H 2.5(JAN 14)H 2.5(FEB 08) Phos 4.2(FEB 08) Ca L 8.3(JAN 16)8.5(JAN 15)L 7.9(JAN 14)L 8.0(FEB 09) Troponin <0.02(FEB 09)<0.02(FEB 08)<0.02(FEB 08) CK MB 1.8(FEB 08)1.8(FEB 08) Total CK 70(FEB 09)82(FEB 08)89(FEB 08)Medications (30) Active Scheduled: (9) aspirin 81 mg ECT 81 mg 1 tab, PO, Daily atorvastatin 40mg tab 40 mg 1 tab, PO, Bedtime carvedilol 3.125 mg TAB 6.25 mg 2 tab, PO, Q12H cefTRIAXone 1 gm INJ VL + water for INJection, sterile 10 mL 1 gm, IV, [id number] escitalopram 10 mg TAB 10 mg 1 [...] sterile water 10 mL) 1 gm IV [id number] 120 ml/hr 02/10/18 escitalopram 10 mg PO [...] Time Meds: None Continuous Infusions: None Extracted from: Title: Clinical Document Author: Timothy Morataya MD Date: 02/09/18 Internal Medicine Consult [facility] Timothy Morataya MD Chief Complaint: headache and [...] negative cardiac enzymes. SBP noted to be i n the 190-200 range. Has also noticed increase LE edema during this time frame with SOB. Review of Systems 14 point ROS negative unless stated abov e Health Status Allergies: Allergic Reactions (Selected) Severity Not Documented NKDA- No reactions were documented., Allergies (1) ActiveReaction NKDANone Documented Current medications: (Selected) Combivent Respimat CFC [...] Histories Past Medical History: Active Diabetes mellitus (176371881) Hepatitis C (11738461) Stroke ([id number]): Myocardial infarct ([id number]): Cholelithiasis ([id number]): Alzheimer disease ([id number]): Family History: Reviewed and noncontributory to present illness Procedure history: CABG x 1 - Coronary artery bypass graft x 1 (596376814). Cholecystotomy (71188089). Abdominal hysterectomy (639892325). Cholecystectomy (16680854). Eye care (472468510). Social History Social & Psychosocial Habits Alcohol 02/17/2016 Use: Never Substance [...] 1.7546 m2 Body Mass Index 25.8 m2 VitalsTmp(F)[id number] 02/09 08:[id number]/1970044--- 02/08 23:1697.71684/794478--- 02/08 19:1697.144382/575540--- 02/08 18:1598.766423/[id number]--- 02/08 17:4597.515076/573981--- 24 Hr Tmax: 98.7F (37.06c) at 02/08 12:1 8Vital Signs are the last 5 in the past 48 hours. ASSESSMENT & EXAM: General: in no apparent distress at [...] deficit. Labs (Last four charted values) WBC 5.1(FEB 09)5.2(FEB 09)6.3(FEB 08) Hgb L 8.0(FEB 09)L 8.0(JAN 14)L 8.6(FEB 08) Hct L 24.2(FEB 09)L 24.1(JAN 14)L 26.3(FEB 08) Plt L 123(JAN 14)L 127(JAN 14)L 123(FEB 08) Na 141(JAN 14)141(JAN 14)139(FEB 08) K H 5.3(FEB 09)H 5.3(FEB 09)4.9(FEB 08) CO2 27(FEB 09)26(FEB 09)26(FEB 08) Cl 107(FEB 09)108(FEB 09)108(FEB 08) Cr H 2.00(FEB 09)H 2.00(FEB 09)H 1.92(FEB 08) BUN H 41(FEB 09)H 41(FEB 09)H 42(FEB 08) Glucose Random H 179(FEB 09)H 175(FEB 09)H 200(FEB 08) Mg H 2.5(FEB 09)H 2.5(FEB 08) Phos 4.2(FEB 08) Ca L 8.0(FEB 09)L 7.9(FEB 09)L 8.2(FEB 08) Troponin <0.02(FEB 09)<0.02(FEB 08)<0.02(FEB 08) CK MB 1.8(FEB 08)1.8(FEB 08) Total CK 70(FEB 09)82(FEB 08)89(FEB 08) Impression: 1. Chest pain 2. CAD [...] 2% topical ointment) Continuous Infusions: None Extracted from: Title: History and Physical Author: Derrick Bullock MD [...] Continue ASA 81. Unclear why she is n ot on a statin. Start atorva 40 - [...]
--- OUTSIDE RECORDS SUMMARY | 2020-06-17 13:08 | XMS REPORT | Summary of Care ---
Author Author [facility] Organization [facility] Address Unknown Phone Unavailable Encounter HQ Elda(FIN) [id number] Date(s): 07/13/19 - 07/13/19 [facility] [address] [place] [address]- Encounter Diagnosis Acute hip pain (Discharge Diagnosis) - 07/13/19 Accidental fall (Discharge Diagnosis) - 07/13/19 Discharge Disposition: Home or Self Care Attending Physician: Jose M Shepherd MD Vital Signs 1 2 3 Most recent to oldest [Reference Range]: 162.56 cm (07/13/19 10:48 AM) Height 98.1 DegF (07/13/19 9:02 PM) 98.2 DegF (07/13/19 7:15 PM) 98.1 DegF (07/13/19 5:25 PM) Temperature Oral [96.4-99.1 DegF] 139/52 mmHg (07/13/19 9:02 PM) 147/55 mmHg *HI* (07/13/19 8:08 PM) 142/47 mmHg *HI* (07/13/19 7:15 PM) Blood Pressure [90-140/60-90 mmHg] 18 BRMIN (07/13/19 9:02 PM) 18 BRMIN (07/13/19 8:08 PM) 17 BRMIN (07/13/19 7:15 PM) Respiratory Rate [14-20 BRMIN] 62 bpm (07/13/19 10:48 AM) Peripheral Pulse Rate [60-100 bpm] 58.636 kg (07/13/19 10:48 AM) Weight 22.19 m2 (07/13/19 10:48 AM) Body Mass Index Problem List Condition [...] Known Medication Allergies Medications acetaminophen 650 mg, Route: PO, Drug form: TAB, ONCE, Dosing Weight 58.636, kg, Priority: STA T, Start date: 07/13/19 14:58:00 CDT, Stop date: 07/13/19 14:58:00 CDT Start Date: 07/13/19 Stop Date: 07/13/19 Status: Completed ibuprofen 400 mg oral tablet 400 mg, 1 tab, Route: PO, ONCE, Dosing Weight 58.636, kg, Start date: 07/13/19 1 4:58:00 CDT, Stop date: 07/13/19 14:58:00 CDT Start Date: 07/13/19 Stop Date: 07/13/19 Status: Completed Tylenol with Codeine #3 oral tablet 1 tab, PO, Q6H, PRN Pain, X 3 day, # 5 tab, 0 Refill(s) Start Date: 07/13/19 Stop Date: 07/16/19 Status: Ordered Results No data available for [...] Cholecystectomy1 Completed Cholecystotomy Completed Eye care Completed 75686 Social History Social History Type Response Alcohol Never Substance Abuse Use: None. Smoking Status Unknown if ever smoked; Exp osure to Tobacco Smoke Unable to obtain; Cigarette Smoking Last 365 Days Unable to obtain; Reg Smoking Cessation Counseling No entered on: 04/03/19 Assessment and Plan No data available for this section
--- OUTSIDE RECORDS SUMMARY | 2020-06-17 13:08 | XMS REPORT | Summary of Care ---
Author Author [facility] Organization [facility] Address Unknown Phone Unavailable Encounter HQ Monica_chad(FIN) [id number] Date(s): 03/02/20 - 03/02/20 [facility] [address] [place] [address]- Discharge Disposition: Home or Self Care Attending Physician: Derrick Bullock MD Referring Physician: Derrick Bullock MD Vital Signs No data available for this section Problem List Condition Effective Dates Status Health [...] Reactions, Alerts No Known Medication Allergies Medications No data available for this section Results No data available for this section Immunizations Given and Recorded Vaccine Date Status Refusal Reason pneumococcal 13-valent vaccine 01/16/17 Given influenza virus vaccine, inactivated 01/16/17 G iven pneumococcal 23-valent vaccine 02/18/16 Given Procedures Procedure Date Related Diagnosis Body Site Status Abdominal hysterectomy Completed CABG x 1 - Coronary artery bypass graft x 1 Compl eted Cholecystectomy1 Completed Cholecystotomy Completed Eye care Completed 92776 Social History Social History Type Response Alcohol Never Substance Abuse Use: None. Smoking Status Never smoker; Exposure to T obacco Smoke None; Cigarette Smoking Last 365 Days No; Reg Smoking Cessation Counseli ng No entered on: 12/30/19 Assessment and Plan No data available for this section
--- OUTSIDE RECORDS SUMMARY | 2020-06-17 13:08 | XMS REPORT | Summary of Care ---
Author Author [facility] Organization [facility] Address Unknown Phone Unavailable Encounter HQ Elda(MALOU) [id number] Date(s): 02/28/18 - 03/21/18 [facility] [address] [place] [address]- [phone] Discharge Disposition: DC/DISC TO REHAB Attending Physician: Chucho Zhou MD Admitting Physician: Chucho Zhou MD Vital Signs Most recent to 1 2 3 4 oldest [Reference Range]: Height 152.4 cm 152.4 cm 152 cm (03/21/18 4:52 AM) (03/20/18 4:50 AM) (03/06/18 3:11 AM) Current Weight 64.006 kg 61.7 kg 57.8 kg (03/21/18 6:15 AM) (03/20/18 4:50 AM) (03/19/18 5:13 AM) Temperature Oral 98.6 DegF 99 DegF 98.1 DegF 98.8 DegF [96.4-99.1 DegF] (03/21/18 1:05 PM) (03/21/18 9:15 AM) (03/21/18 8 :00 AM) (03/21/18 8:00 AM) Blood Pressure 141/52 mmHg 132/56 mmHg 151/71 mmHg [90-140/60-90 mmHg] *HI* (03/21/18 9:15 AM) *HI* (03/21/18 1:05 PM) (03/21/18 8:00 AM) Respiratory Rate 18 BRMIN 18 BRMIN 18 BRMIN [14-20 BRMIN] (03/21/18 1:05 PM) (03/21/18 9:15 AM) (03/21/18 8:00 AM) Peripheral Pulse 67 bpm 68 bpm 70 bpm Rate [60-100 bpm] (03/21/18 1:05 PM) (03/21/18 9:15 AM) ( 8:00 AM) Weight 61.7 kg 68.6 kg 56.8 kg (03/21/18 4:52 AM) (03/10/18 4:10 AM) (03/04/18 5:09 PM) Body Mass Index 26.57 m2 24.58 m2 25.05 m2 (03/21/18 4:52 AM) (03/04/18 5:09 PM) (02/28/18 11:31 AM) Problem List Condition Effective Dates Status Health Status Informan t ATN (acute tubular Active necrosis)(Confirmed) Alzheimer Resolved disease(Confirmed) Cholelithiasis(Confi Resolved rmed) CKD (chronic kidney Active disease) stage 4, GFR 15-29 ml/min(Confirmed) Coronary artery Active disease(Confirmed) Diabetes Active mellitus(Confirmed) Hepatitis Active C(Confirmed) Hypertension(Confirm Active ed) Volume Active overload(Confirmed) 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, medicament or biological substance(Confirmed) Myocardial Resolved infarct(Confirmed) Guaiac positive Active stools(Confirmed) Stroke(Confirmed) Resolved Allergies, Adverse Reactions, Alerts Substance Reaction Severity Status NKDA Active Medications please give midodrine before dialysis on dialysis days please give midodrine before dialysis on dialysis days, reminder, Drug form: M ISC, Route: MISC, Daily, 03/16/18 6:00:00 CDT, Duration: 30 day, Stop date: 03/29 05/15 6:00:00 CDT Start Date: 03/16/18 Stop Date: 03/21/18 Status: Discontinued 1/2 NS 1,000 mL 1,000 mL, Rate: 50 ml/hr, Infuse over: 20 hr, Route: IV, Dosing Weight 56.8 kg, Total Volume: 1,000, Start date: 03/05/18 14:48:00 CDT, Duration: 30 day, Stop d ate: 04/04/18 14:47:00 CDT, 1.57, m2 Start Date: 03/05/18 Stop Date: 03/09/18 Status: Discontinued 1/2 NS 250 mL 250 mL, Rate: 10.42 ml/hr, Infuse over: 24 hr, Route: IV, Dosing Weight 56.8 kg, Total Volume: 250, Start date: 03/05/18 8:49:00 CDT, Stop date: 04/04/18 8:48:00 CDT, 1.57, m2 Start Date: 03/05/18 Stop Date: 03/11/18 Status: Discontinued 1/2NS + KCL 20mEq/L 1000ml (Premix) 1,000 mL 1,000 mL, Rate: 50 ml/hr, Infuse over: 20 hr, Route: IV, Dosing Weight 56.8 kg, Total Volume: 1,000, Start date: 03/05/18 8:49:00 CDT, Duration: 30 day, Stop da te: 04/04/18 8:48:00 CDT, 1.57, m2 Notes: PREMIX IV - Do Not AlterWASTE: F/P - Sink; E - Municipal Trash Bin Start Date: 03/05/18 Stop Date: 03/05/18 Status: Discontinued acetaminophen 650 mg, 2 tab, Route: PO, Drug form: TAB, Q6H, Dosing Weight 58.182, kg, PRN Mayito n 1-3/Temp > 100.4 F, Start date: 02/28/18 17:31:00 CDT, Duration: 30 day, Stop date: 03/30/18 17:30:00 CDT Notes: Do not exceed 4 gm/day. (Same as: Tylenol) Start Date: 02/28/18 Stop Date: 03/05/18 Status: Discontinued acetaminophen 650 mg, 2 tab, Route: PO, Drug form: TAB, Q4H, Dosing Weight 56.8, kg, PRN Pain Score 1-5, Start date: 03/05/18 8:49:00 CDT, Stop date: 04/04/18 8:48:00 CDT Notes: Do not exceed 4 gm/day. (Same as: Tylenol) Start Date: 03/05/18 Stop Date: 03/21/18 Status: Discontinued acetaminophen-hydrocodone 325 mg-10 mg oral tablet 2 tab, Route: PO, Drug Form: TAB, Dosing Weight 68.6, kg, Q4H, PRN Pain Score 7- 10, Start date: 03/19/18 14:45:00 CDT, Duration: 30 day, Stop date: 04/18/18 14: 44:00 CDT Notes: Do not exceed 4gm/day of acetaminophen. (Same as: [place] 325/10) Start Date: 03/19/18 Stop Date: 03/21/18 Status: Discontinued acetaminophen-hydrocodone 325 mg-5 mg oral tablet 1 tab, Route: PO, Drug Form: TAB, Dosing Weight 58.182, kg, Q6H, PRN Pain Score 4-6, Start date: 02/28/18 17:31:00 CDT, Duration: 30 day, Stop date: 03/30/18 17 :30:00 CDT Notes: (Same as: [place] 325/5) Do not exceed 4gm/day of acetaminophen. Start Date: 02/28/18 Stop Date: 03/05/18 Status: Discontinued acetaminophen-hydrocodone 325 mg-5 mg oral tablet 1 tab, Route: PO, Drug Form: TAB, Dosing Weight 68.6, kg, Q4H, PRN Pain Score 4- 6, Start date: 03/19/18 14:45:00 CDT, Duration: 30 day, Stop date: 04/18/18 14:4 4:00 CDT Notes: (Same as: [place] 325/5) Do not exceed 4gm/day of acetaminophen. Start Date: 03/19/18 Stop Date: 03/21/18 Status: Discontinued acetaminophen-hydrocodone 325 mg-5 mg oral tablet 1 tab, Route: PO, Drug Form: TAB, Dosing Weight 56.8, kg, Q4H, PRN Pain Score 1- 5, Start date: 03/05/18 8:49:00 CDT, Duration: 30 day, Stop date: 04/04/18 8:48: 00 CDT Notes: (Same as: [place] 325/5) Do not exceed 4gm/day of acetaminophen. Start Date: 03/05/18 Stop Date: 03/18/18 Status: Discontinued acetaminophen-hydrocodone 325 mg-5 mg oral tablet 2 tab, Route: PO, Drug Form: TAB, Dosing Weight 56.8, kg, Q4H, PRN Pain Score 6- 10, Start date: 03/05/18 8:49:00 CDT, Duration: 30 day, Stop date: 04/04/18 8:48 :00 CDT Notes: (Same as: [place] 325/5) Do not exceed 4gm/day of acetaminophen. Start Date: 03/05/18 Stop Date: 03/18/18 Status: Discontinued albumin human 12.5 gm, 50 mL, Route: IV, Drug form: INJ, Q8H, Start date: 03/10/18 0:00:00 CDT , Duration: 2 doses or times, Stop date: 03/10/18 8:00:00 CDT Notes: LOT#: Mfg: WASTE: F/P - Red; E -Red (Same a s: Albuminar)"blood product derivative" Start Date: 03/10/18 Stop Date: 03/10/18 Status: Completed albumin human 12.5 gm, 50 mL, Route: IV, Drug form: INJ, Q8Hnow, Start date: 03/11/18 13:00:00 CDT, Duration: 2 doses or times, Stop date: 03/11/18 21:00:00 CDT Notes: LOT#: Mfg: WASTE: F/P - Red; E -Red (Same a s: Albuminar)"blood product derivative" Start Date: 03/11/18 Stop Date: 03/11/18 Status: Completed albumin human 12.5 gm, 50 mL, Route: IV, Drug form: INJ, Q8Hnow, Start date: 03/10/18 22:00:00 CDT, Duration: 2 doses or times, Stop date: 03/11/18 6:00:00 CDT Notes: LOT#: Mfg: WASTE: F/P - Red; E -Red (Same a s: Albuminar)"blood product derivative" Start Date: 03/10/18 Stop Date: 03/11/18 Status: Completed albumin human 12.5 gm, 50 mL, Route: IV, Drug form: INJ, Q8H, Start date: 03/08/18 20:00:00 CD T, Duration: 2 doses or times, Stop date: 03/09/18 4:00:00 CDT Notes: LOT#: Mfg: WASTE: F/P - Red; E -Red (Same a s: Albuminar)"blood product derivative" Start Date: 03/08/18 Stop Date: 03/09/18 Status: Completed albumin human 12.5 gm, 50 mL, Route: IV, Drug form: INJ, Q8H, Start date: 03/09/18 8:00:00 CDT , Duration: 2 doses or times, Stop date: 03/09/18 16:00:00 CDT Notes: Lot #: Mfg: (Same as: Plasbumin-25)"blood pr oduct derivative"WASTE: F/P - Red; E -Red MEDICATION WASTE Product Size: 25 gmProduct Wasted: ___ gm Start Date: 03/09/18 Stop Date: 03/09/18 Status: Completed albumin human 12.5 gm, 50 mL, Route: IV, Drug form: INJ, Q8Hnow, Start date: 03/10/18 21:00:00 CDT, Duration: 2 doses or times, Stop date: 03/11/18 5:00:00 CDT Notes: Lot #: Mfg: (Same as: Plasbumin-25)"blood pr oduct derivative"WASTE: F/P - Red; E -Red MEDICATION WASTE Product Size: 25 gmProduct Wasted: ___ gm Start Date: 03/10/18 Stop Date: 03/10/18 Status: Discontinued albumin human 25% intravenous solution 25 gm, 100 mL, Route: IVPB, Drug form: INJ, ONCE, Dosing Weight 56.8, kg, Start date: 03/06/18 17:13:00 CDT, Stop date: 03/06/18 17:13:00 CDT Notes: Lot #: Mfg: (Same as: Plasbumin-25)"blood pr oduct derivative"WASTE: F/P - Red; E -Red MEDICATION WASTE Product Size: 25 gmProduct Wasted: ___ gm Start Date: 03/06/18 Stop Date: 03/06/18 Status: Completed albumin human 25% intravenous solution 12.5 gm, 50 mL, Route: IVPB, Drug form: INJ, Q8H, Dosing Weight 56.8, kg, Priori ty: NOW, Start date: 03/07/18 17:13:00 CDT, Duration: 3 doses or times, Stop blake e: 03/08/18 8:00:00 CDT Notes: LOT#: Mfg: WASTE: F/P - Red; E -Red (Same a s: Albuminar)"blood product derivative" Start Date: 03/07/18 Stop Date: 03/08/18 Status: Completed albumin human 25% intravenous solution 25 gm, Route: IVPB, ONCE, Dosing Weight 68.6, kg, Start date: 03/12/18 13:21:00 CDT, Stop date: 03/12/18 13:21:00 CDT Start Date: 03/12/18 Stop Date: 03/12/18 Status: Completed amLODIPine 10 mg, 2 tab, Route: PO, Drug form: TAB, Daily, Dosing Weight 58.182, kg, Start date: 03/01/18 9:00:00 CDT, Duration: 30 day, Stop date: 03/30/18 9:00:00 CDT Notes: (Same as: Norvasc) Start Date: 03/01/18 Stop Date: 03/06/18 Status: Discontinued Ancef + sterile water 20 mL 2 gm, Route: IVPB, [id number], Dosing Weight 56.8, kg, Start date: 03/05/18 20:00:0 0 CDT, Duration: 2 doses or times, Stop date: 03/06/18 8:00:00 CDT, ABX Indicati on: Surgical Prophylaxis Notes: (Same As: Ancef, Kefzol) MEDICATION WASTE Product Size: 1000 mgP roduct Wasted: _0__ mg Start Date: 03/05/18 Stop Date: 03/06/18 Status: Completed Ancef + sterile water 20 mL 2 gm, Route: IV, ONCE, Dosing Weight 58.182, kg, Start date: 03/04/18 12:37:00 C DT, Stop date: 03/04/18 12:37:00 CDT, ABX Indication: Surgical Prophylaxis Notes: (Same As: Ancef, Kefzol) MEDICATION WASTE Product Size: 1000 mgP roduct Wasted: ___ mg Start Date: 03/04/18 Stop Date: 03/05/18 Status: Completed aspirin 324 mg, 4 tab, Route: CHEW, Drug form: CHEWTAB, ONCE, Dosing Weight 58.182, kg, Priority: STAT, Start date: 02/28/18 12:03:00 CDT, Stop date: 02/28/18 12:03:00 CDT Notes: Take with food. Start Date: 02/28/18 Stop Date: 02/28/18 Status: Completed aspirin 81 mg tablet, enteric coated 81 mg = 1 tab, PO, Daily, # 30 tab, 3 Refill(s), Pharmacy: [facility] [id number] Start Date: 03/18/18 Stop Date: 07/16/18 Status: Suspended aspirin 81 mg tablet, enteric coated 81 mg, 1 tab, Route: PO, Drug form: ECTAB, Daily, Dosing Weight 58.182, kg, Star t date: 03/01/18 9:00:00 CDT, Duration: 30 day, Stop date: 03/30/18 9:00:00 CDT Notes: Do not crush or chew.(Same As: Ecotrin) Start Date: 03/01/18 Stop Date: 03/21/18 Status: Discontinued atorvastatin 40 mg, 1 tab, Route: PO, Drug form: TAB, Bedtime, Dosing Weight 58.182, kg, Star t date: 02/28/18 21:00:00 CDT, Duration: 30 day, Stop date: 03/29/18 21:00:00 CD T Notes: (Same as: Lipitor) Start Date: 02/28/18 Stop Date: 03/21/18 Status: Discontinued atorvastatin 40 mg oral tablet 40 mg = 1 tab, PO, Bedtime, # 30 tab, 0 Refill(s), Pharmacy: [facility] [id number] Start Date: 03/18/18 Stop Date: 04/17/18 Status: Suspended bumetanide 10 mg + Sodium Chloride 0.9% (titrate) 60 mL 60 mL, Rate: 0.5mg/hr, Dosing Weight 68.6, kg, Route: IV, Total Volume: 100 mL, Start Date: 03/10/18 19:25:00 CDT, Duration: 30 day, Stop date: 04/09/18 19:24:0 0 CDT, Replace Every: 24 hr Notes: (Same As: Bumex) Start Date: 03/10/18 Stop Date: 03/12/18 Status: Discontinued carvedilol 12.5 mg, 1 tab, Route: PO, Drug form: TAB, Q12H, Dosing Weight 58.182, kg, Start date: 02/28/18 21:00:00 CDT, Duration: 30 day, Stop date: 03/30/18 9:00:00 CDT Notes: Give with food. (Same As: Coreg) Start Date: 02/28/18 Stop Date: 03/05/18 Status: Discontinued ceFAZolin (ANES) Route: IV, Drug form: INJ, ONCE, Stop date: 03/05/18 9:23:00 CDT Start Date: 03/05/18 Stop Date: 03/05/18 Status: Completed ceFAZolin (ANES) 1000 mg Route: IV, Drug form: INJ, Start date: 03/19/18 13:19:00 CDT, Stop date: 8 14:19:00 CDT Start Date: 03/19/18 Stop Date: 03/19/18 Status: Completed chlorhexidine topical 0.12% liquid 15 mL, Route: Swab Mouth, PRN, Drug form: LIQ, PRN Other -See Comment, Start blake e: 03/05/18 8:49:00 CDT, Duration: 30 day, Stop date: 04/04/18 8:48:00 CDT Notes: (Same As: Peridex) Start Date: 03/05/18 Stop Date: 03/06/18 Status: Discontinued chlorhexidine topical 0.12% liquid 15 mL, Route: Swab Mouth, Q12H, Drug form: LIQ, Start date: 03/05/18 9:00:00 CDT , Duration: 30 day, Stop date: 04/03/18 21:00:00 CDT Notes: (Same As: Peridex) Start Date: 03/05/18 Stop Date: 03/06/18 Status: Discontinued chlorhexidine topical 0.12% liquid 15 ml, Route: S&SPIT, Q12H, Drug form: LIQ, Start date: 03/05/18 9:00:00 CDT, Duration: 2 week, Stop date: 03/18/18 21:00:00 CDT Notes: (Same As: Peridex) Start Date: 03/05/18 Stop Date: 03/07/18 Status: Discontinued chlorhexidine topical 4% soap 1 appl, Route: BATHE, Q-M-W-F, Drug form: SOAP, Start date: 03/06/18 9:00:00 CDT , Duration: 30 day, Stop date: 04/03/18 9:00:00 CDT Notes: (Same As: Chris) Start Date: 03/06/18 Stop Date: 03/07/18 Status: Discontinued clopidogrel 75 mg, 1 tab, Route: PO, Drug form: TAB, Daily, Dosing Weight 56.8, kg, Start da te: 03/05/18 9:00:00 CDT, Duration: 30 day, Stop date: 04/03/18 9:00:00 CDT Notes: (Same As: Plavix) Start Date: 03/05/18 Stop Date: 03/05/18 Status: Discontinued clopidogrel 75 mg oral tablet 75 mg = 1 tab, PO, Daily, # 30 tab, 1 Refill(s), [facility] [id number] Start Date: 03/18/18 Stop Date: 05/17/18 Status: Suspended Dextrose 50% Syringe 12.5 gm, 25 mL, Route: IVP, Drug Form: INJ, Dosing Weight 68.6, kg, PRN, PRN Blo od Glucose Results, Start date: 05/13/18 20:16:00 CDT, Duration: 30 day, Stop da te: 04/09/18 20:15:00 CDT Start Date: 03/10/18 Stop Date: 03/21/18 Status: Discontinued Dextrose 50% Syringe 25 gm, 50 mL, Route: IVP, Drug Form: INJ, Dosing Weight 68.6, kg, PRN, PRN Blood Glucose Results, Start date: 03/10/18 20:16:00 CDT, Duration: 30 day, Stop date: 04/09/18 20:15:00 CDT Start Date: 03/10/18 Stop Date: 03/21/18 Status: Discontinued Dextrose 50% Syringe 12.5 gm, 25 mL, Route: IVP, Drug Form: INJ, Dosing Weight 56.8, kg, PRN, PRN Blo od Glucose Results, Start date: 03/05/18 8:45:00 CDT, Duration: 30 day, Stop blake e: 04/04/18 8:44:00 CDT Start Date: 03/05/18 Stop Date: 03/05/18 Status: Discontinued Dextrose 50% Syringe 25 gm, 50 mL, Route: IVP, Drug Form: INJ, Dosing Weight 56.8, kg, PRN, PRN Blood Glucose Results, Start date: 03/05/18 8:45:00 CDT, Duration: 30 day, Stop date: 04/04/18 8:44:00 CDT Start Date: 03/05/18 Stop Date: 03/05/18 Status: Discontinued Dextrose 50% Syringe 12.5 gm, 25 mL, Route: IVP, Drug Form: INJ, Dosing Weight 56.8, kg, PRN, PRN Blo od Glucose Results, Start date: 03/05/18 8:49:00 CDT, Duration: 30 day, Stop blake e: 04/04/18 8:48:00 CDT Start Date: 03/05/18 Stop Date: 03/10/18 Status: Discontinued Dextrose 50% Syringe 25 gm, 50 mL, Route: IVP, Drug Form: INJ, Dosing Weight 56.8, kg, PRN, PRN Blood Glucose Results, Start date: 03/05/18 8:49:00 CDT, Duration: 30 day, Stop date: 04/04/18 8:48:00 CDT Start Date: 03/05/18 Stop Date: 03/10/18 Status: Discontinued Dextrose 50% Syringe 25 mL, Route: IVP, Dosing Weight 58.182, kg, PRN, PRN Blood Glucose Results, Sta rt date: 02/28/18 22:14:00 CDT, Duration: 30 day, Stop date: 03/30/18 22:13:00 C DT Start Date: 02/28/18 Stop Date: 02/28/18 Status: Deleted Dextrose 50% Syringe 50 mL, Route: IVP, Dosing Weight 58.182, kg, PRN, PRN Blood Glucose Results, Sta rt date: 02/28/18 22:14:00 CDT, Duration: 30 day, Stop date: 03/30/18 22:13:00 C DT Start Date: 02/28/18 Stop Date: 02/28/18 Status: Deleted Dextrose 50% Syringe 12.5 gm, 25 mL, Route: IVP, Drug Form: INJ, Dosing Weight 58.182, kg, PRN, PRN B lood Glucose Results, Start date: 02/28/18 22:14:00 CDT, Duration: 30 day, Stop date: 03/30/18 22:13:00 CDT Start Date: 02/28/18 Stop Date: 03/05/18 Status: Discontinued Dextrose 50% Syringe 25 gm, 50 mL, Route: IVP, Drug Form: INJ, Dosing Weight 58.182, kg, PRN, PRN Blo od Glucose Results, Start date: 02/28/18 22:14:00 CDT, Duration: 30 day, Stop da te: 03/30/18 22:13:00 CDT Start Date: 02/28/18 Stop Date: 03/05/18 Status: Discontinued docusate 100 mg, 1 cap, Route: PO, Drug form: CAP, BID, Dosing Weight 58.182, kg, Start d ate: 03/01/18 9:00:00 CDT, Duration: 30 day, Stop date: 03/30/18 17:00:00 CDT Notes: (Same as: Colace) (Do Not Crush) Start Date: 03/01/18 Stop Date: 03/05/18 Status: Discontinued docusate 100 mg, 1 cap, Route: PO, Drug form: CAP, BID, Dosing Weight 56.8, kg, Start blake e: 03/05/18 9:00:00 CDT, Duration: 30 day, Stop date: 04/03/18 17:00:00 CDT Notes: (Same as: Colace) (Do Not Crush) Start Date: 03/05/18 Stop Date: 03/05/18 Status: Discontinued docusate sodium 100 mg oral capsule 100 mg, 1 cap, Route: PO, Drug form: CAP, BID, Dosing Weight 56.8, kg, Start blake e: 03/07/18 9:00:00 CDT, Duration: 30 day, Stop date: 04/05/18 17:00:00 CDT Notes: (Same as: Colace) (Do Not Crush) Start Date: 03/07/18 Stop Date: 03/13/18 Status: Discontinued DOPamine 800 mg in D5W 250 mL (Titrate.) IV 800 mg 800 mg, 250 mL, Rate: Titrate, Start Dose: 5 microgram/kg/min, Titration: 2.5 mi crogram/kg/min every 15 minutes, Goal(s): MAP >= 65 mmHg, Max Dose: 20 microgram/kg/min, Route: IV, Dosing Weight 56.8 kg, Total Volume: 250, Start date: 03/05/18 19:08:00... Notes: (Same as: Intropin) Administer by either central venous catheter or perip herally-inserted central catheter (PICC) line. Final conc = 3.2 mg/ml. Premix s olution. Start Date: 03/05/18 Stop Date: 03/15/18 Status: Discontinued EPINEPHrine 4 mg in NS 250 mL (Titrate.) IV 4 mg 4 mg, 250 mL, Rate: Titrate, Start Dose: 0.1 microgram/kg/min, Titration: 0.01 m icrogram/kg/min every 2 min, Goal(s): MAP >= 65 mmHg, Max Dose: 0.5 microgram/kg/min, Route: IV, Dosing Weight 56.8 kg, Total Volume: 250, Start date: 03/05/18 6:26:00 CDT... Start Date: 03/05/18 Stop Date: 03/05/18 Status: Deleted EPINEPHrine 4 mg in NS 250 mL (Titrate.) IV 4 mg + Sodium Chloride 0.9% IV 246 m L 4 mg, 4 mL, Rate: Titrate, Start Dose: 1 microgram/min, Titration: 0.5 microgram /min every 2 - 5 min, Goal(s): for SBP greater than 90, Max Dose: 35 mcg/min, Ro sokaogon: IV, Dosing Weight 56.8 kg, Total Volume: 250, Start date: 03/05/18 8:49:00 CDT, Durati... Notes: (Same as: Adrenalin) Suremed - Injectable drug used as inhalation treatme nt. MEDICATION WASTE Product Size: 1 mgProduct Wasted: ___ mg Start Date: 03/05/18 Stop Date: 03/11/18 Status: Discontinued EPINEPHrine 4 mg in NS 250 mL (Titrate.) IV 4 mg + Sodium Chloride 0.9% IV 246 m L 4 mg, 4 mL, Rate: Titrate, Start Dose: 5 microgram/min, Titration: 0.5 microgram /min every 2-5 min, Goal(s): MAP >= 65 mmHg, Max Dose: 35 mcg/min, Route: IV, Dosing Weight 58.182 kg, Total Volume: 250, Start date: 03/05/18 6:00:00 CDT, Duration: 30 da... Notes: (Same as: Adrenalin) Suremed - Injectable drug used as inhalation treatme nt. MEDICATION WASTE Product Size: 1 mgProduct Wasted: ___ mg Start Date: 03/05/18 Stop Date: 03/05/18 Status: Discontinued Epogen 10,000 unit, Route: IVP, Q---, Dosing Weight 68.6, kg, Start date: 03/20/18 9 :00:00 CDT, Duration: 30 day, Stop date: 04/17/18 9:00:00 CDT Start Date: 03/20/18 Stop Date: 03/19/18 Status: Deleted Epogen (ESRD) 10,000 unit, 1 mL, Route: IV, Drug form: INJ, Q---Sa, Dosing Weight 68.6, kg , Start date: 03/16/18 9:00:00 CDT, Duration: 30 day, Stop date: 04/11/18 17:00: 00 CDT Notes: (Same as: Procrit) epoetin kathy 61461 unit/1 ml VL.For dialysis use only. (Procrit)WASTE: F/P - Red; E -Red MEDICATION WASTE Product Size: 85619 unitProduct Wasted: ___ unit Start Date: 03/16/18 Stop Date: 03/21/18 Status: Discontinued escitalopram 10 mg, 1 tab, Route: PO, Drug form: TAB, Daily, Dosing Weight 58.182, kg, Start date: 03/01/18 9:00:00 CDT, Duration: 30 day, Stop date: 03/30/18 9:00:00 CDT Notes: (Same as: Lexapro) Start Date: 03/01/18 Stop Date: 03/21/18 Status: Discontinued famotidine 20 mg, 2 mL, Route: IVP, Drug form: INJ, Q12H, Dosing Weight 56.8, kg, Start blake e: 03/05/18 9:00:00 CDT, Duration: 30 day, Stop date: 04/03/18 21:00:00 CDT Notes: (Same as: Pepcid)Can be dilute in 5-10cc NS IVP: Slow IV push over at le ast 2 minutes. Start Date: 03/05/18 Stop Date: 03/05/18 Status: Discontinued fentaNYL 25 microgram, 0.5 mL, Route: IVP, Drug form: INJ, ONCE, Dosing Weight 58.182, kg , Priority: STAT, Start date: 02/28/18 12:04:00 CDT, Stop date: 02/28/18 12:04:0 0 CDT Notes: (Same as: Sublimaze) Preservative free. Start Date: 02/28/18 Stop Date: 02/28/18 Status: Completed fentaNYL (ANES) Route: IV, Drug form: INJ, ONCE, Stop date: 03/05/18 9:18:00 CDT Start Date: 03/05/18 Stop Date: 03/05/18 Status: Completed furosemide 100 mg, Route: IV, ONCE, Dosing Weight 56.8, kg, Priority: NOW, Start date: 02/26 12/16 7:52:00 CDT, Stop date: 03/09/18 7:52:00 CDT Start Date: 03/09/18 Stop Date: 03/09/18 Status: Discontinued furosemide 100 mg + Sodium Chloride 0.9% IV 90 mL 90 mL, Rate: 10 ml/hr, Infuse over: 10 hr, Route: IV, Dosing Weight 68.6 kg, Tot al Volume: 100, Start date: 03/08/18 18:25:00 CDT, Stop date: 04/07/18 18:27:00 CDT, 1.73, m2 Notes: (Same as: Lasix) MEDICATION WASTE Product Size: 100 mgProduct Ga sted: ___ mg Start Date: 03/08/18 Stop Date: 03/10/18 Status: Discontinued glucagon 1 mg, Route: IM, Drug form: PDR/INJ, PRN, Dosing Weight 68.6, kg, PRN Blood Gluc ose Results, Start date: 03/10/18 20:16:00 CDT, Duration: 30 day, Stop date: 10/15 20:15:00 CDT Start Date: 03/10/18 Stop Date: 03/21/18 Status: Discontinued glucagon 1 mg, Route: IM, PRN, Dosing Weight 58.182, kg, PRN Blood Glucose Results, Start date: 02/28/18 22:14:00 CDT, Duration: 30 day, Stop date: 03/30/18 22:13:00 CDT Start Date: 02/28/18 Stop Date: 02/28/18 Status: Deleted glucagon 1 mg, Route: IM, Drug form: PDR/INJ, PRN, Dosing Weight 58.182, kg, PRN Blood Gl ucose Results, Start date: 02/28/18 22:14:00 CDT, Duration: 30 day, Stop date: 0 03/30/18 22:13:00 CDT Start Date: 02/28/18 Stop Date: 03/05/18 Status: Discontinued heparin (ANES) Route: IV, Drug form: INJ, ONCE, Stop date: 03/05/18 10:45:00 CDT Start Date: 03/05/18 Stop Date: 03/05/18 Status: Completed Heparin - one time bolus for ACS 3,000 unit, 3 mL, Route: IVP, Drug form: INJ, ONCE, Dosing Weight 58.182, kg, Pr iority: STAT, Start date: 02/28/18 15:59:00 CDT, Stop date: 02/28/18 15:59:00 CD T Start Date: 02/28/18 Stop Date: 02/28/18 Status: Completed Heparin 30 unit/kg Bolus (Heparin Dosing Weight) Route: IVP, PRN, 1,500 unit, 1.5 mL, Drug form: INJ, PRN, Heparin Protocol, Star t date: 02/28/18 15:59:00 CDT Stop date: 03/30/18 15:58:00 CDT, 30 day Start Date: 02/28/18 Stop Date: 03/05/18 Status: Discontinued Heparin 60 unit/kg Bolus (Heparin Dosing Weight) Route: IVP, PRN, 3,000 unit, 3 mL, Drug form: INJ, PRN, Heparin Protocol, Start date: 02/28/18 15:59:00 CDT Stop date: 03/30/18 15:58:00 CDT, 30 day Start Date: 02/28/18 Stop Date: 03/05/18 Status: Discontinued heparin additive 25,000 unit [12 unit/kg/hr] + Premix Diluent Dextrose 5% 500 mL 500 mL, Rate: 12.14 ml/hr, Infuse over: 41.2 hr, Route: IV, Dosing Weight 50.6 k g, Total Volume: 500 mL, Start date: 02/28/18 15:59:00 CDT, Duration: 30 day, St op date: 03/30/18 15:58:00 CDT, 1.48, m2 Start Date: 02/28/18 Stop Date: 03/05/18 Status: Discontinued hydrALAZINE 10 mg, 0.5 mL, Route: IVP, Drug form: INJ, Q4H, Dosing Weight 58.182, kg, PRN Hy pertension, Start date: 02/28/18 17:37:00 CDT, Duration: 30 day, Stop date: 12/16 17:36:00 CDT Notes: (Same as: Apresoline)Push over 5 minutes Start Date: 02/28/18 Stop Date: 03/21/18 Status: Discontinued hydromorphone 1 mg, 0.5 tab, Route: PO, Drug form: TAB, Q3H, Dosing Weight 68.6, kg, PRN Pain Score 4-6, Start date: 03/19/18 14:45:00 CDT, Duration: 30 day, Stop date: 04/18 14:44:00 CDT Notes: (Same as: Dilaudid) Start Date: 03/19/18 Stop Date: 03/21/18 Status: Discontinued Insulin (Regular) additive 100 unit [0.1 unit/kg/hr] + NS 99 mL 99 mL, Rate: 5.82 ml/hr, Infuse over: 17.2 hr, Route: IV, Dosing Weight 58.182 k g, Total Volume: 100 mL, Start date: 03/05/18 6:00:00 CDT, Duration: 30 day, Sto p date: 04/04/18 5:59:00 CDT, 1.59, m2 Notes: (Same as: Humulin R and NovoLIN R)WASTE: F/P - Black; E - Municipal Trash Bin (Do not shake) Start Date: 03/05/18 Stop Date: 03/05/18 Status: Discontinued insulin aspart 10 unit, Route: SUB-Q, ONCE, Dosing Weight 68.6, kg, Start date: 03/15/18 21:02: 00 CDT, Stop date: 03/15/18 21:02:00 CDT Start Date: 03/15/18 Stop Date: 03/15/18 Status: Completed insulin glargine 100 units/mL subcutaneous solution 20 unit, 0.2 mL, Route: SUB-Q, Drug form: SOLN, Daily, Dosing Weight 58.182, kg, Start date: 03/01/18 9:00:00 CDT, Duration: 30 day, Stop date: 03/30/18 9:00:00 CDT Notes: (Same as: Lantus)Do not hold insulin without contacting prescriberWASTE: F/P - Black; E - [facility] "single patient use only" Start Date: 03/01/18 Stop Date: 03/05/18 Status: Discontinued insulin lispro 2 unit, 0.02 mL, Route: SUB-Q, Drug form: SOLN, TID-Before Meals, Dosing Weight 68.6, kg, PRN Blood Glucose Results, Start date: 03/10/18 20:16:00 CDT, Duration : 30 day, Stop date: 04/09/18 20:15:00 CDT Notes: (Same as: Humalog ) Roll in palms of hands gently; Do not shake `vigorou sly. "Single Patient Use Only " WASTE: F/P - Black; E - [facility] [address] able for 28 days at room temperature.Expires in days from Da te Start Date: 03/10/18 Stop Date: 03/21/18 Status: Discontinued insulin lispro 4 unit, 0.04 mL, Route: SUB-Q, Drug form: SOLN, TID-Before Meals, Dosing Weight 68.6, kg, PRN Blood Glucose Results, Start date: 03/10/18 20:16:00 CDT, Duration : 30 day, Stop date: 04/09/18 20:15:00 CDT Notes: (Same as: Humalog ) Roll in palms of hands gently; Do not shake `vigorou sly. "Single Patient Use Only " WASTE: F/P - Black; E - [facility] [address] [address] able for 28 days at room temperature.Expires in days from Da te Start Date: 03/10/18 Stop Date: 03/21/18 Status: Discontinued insulin lispro 6 unit, 0.06 mL, Route: SUB-Q, Drug form: SOLN, TID-Before Meals, Dosing Weight 68.6, kg, PRN Blood Glucose Results, Start date: 03/10/18 20:16:00 CDT, Duration : 30 day, Stop date: 04/09/18 20:15:00 CDT Notes: (Same as: Humalog ) Roll in palms of hands gently; Do not shake `vigorou sly. "Single Patient Use Only " WASTE: F/P - Black; E - [facility] [address] [address] able for 28 days at room temperature.Expires in days from Da te Start Date: 03/10/18 Stop Date: 03/21/18 Status: Discontinued insulin lispro 8 unit, 0.08 mL, Route: SUB-Q, Drug form: SOLN, TID-Before Meals, Dosing Weight 68.6, kg, PRN Blood Glucose Results, Start date: 03/10/18 20:16:00 CDT, Duration : 30 day, Stop date: 04/09/18 20:15:00 CDT Notes: (Same as: Humalog ) Roll in palms of hands gently; Do not shake `vigorou sly. "Single Patient Use Only " WASTE: F/P - Black; E - [facility] [address] [address] able for 28 days at room temperature.Expires in days from Da te Start Date: 03/10/18 Stop Date: 03/21/18 Status: Discontinued insulin lispro 10 unit, 0.1 mL, Route: SUB-Q, Drug form: SOLN, TID-Before Meals, Dosing Weight 68.6, kg, PRN Blood Glucose Results, Start date: 03/10/18 20:16:00 CDT, Duration : 30 day, Stop date: 04/09/18 20:15:00 CDT Notes: (Same as: Humalog ) Roll in palms of hands gently; Do not shake `vigorou sly. "Single Patient Use Only " WASTE: F/P - Black; E - [facility] [address] [facility] [address] able for 28 days at room temperature.Expires in days from Da te Start Date: 03/10/18 Stop Date: 03/21/18 Status: Discontinued insulin lispro 3 unit, 0.03 mL, Route: SUB-Q, Drug form: SOLN, Bedtime, Dosing Weight 68.6, kg, PRN Blood Glucose Results, Start date: 03/15/18 21:00:00 CDT, Duration: 30 day, Stop date: 04/14/18 20:59:00 CDT Notes: (Same as: Humalog ) Roll in palms of hands gently; Do not shake `vigorou sly. "Single Patient Use Only " WASTE: F/P - Black; E - [facility] [address] [facility] [address] able for 28 days at room temperature.Expires in days from Da te Start Date: 03/15/18 Stop Date: 03/21/18 Status: Discontinued insulin lispro 4 unit, 0.04 mL, Route: SUB-Q, Drug form: SOLN, Bedtime, Dosing Weight 68.6, kg, PRN Blood Glucose Results, Start date: 03/15/18 21:00:00 CDT, Duration: 30 day, Stop date: 04/14/18 20:59:00 CDT Notes: (Same as: Humalog ) Roll in palms of hands gently; Do not shake `vigorou sly. "Single Patient Use Only " WASTE: F/P - Black; E - [facility] [address] [address] able for 28 days at room temperature.Expires in days from Da te Start Date: 03/15/18 Stop Date: 03/21/18 Status: Discontinued insulin lispro 1 unit, 0.01 mL, Route: SUB-Q, Drug form: SOLN, Bedtime, Dosing Weight 68.6, kg, PRN Blood Glucose Results, Start date: 03/15/18 21:00:00 CDT, Duration: 30 day, Stop date: 04/14/18 20:59:00 CDT Notes: (Same as: Humalog ) Roll in palms of hands gently; Do not shake `vigorou sly. "Single Patient Use Only " WASTE: F/P - Black; E - [facility] [address] [facility] [address] able for 28 days at room temperature.Expires in days from Da te Start Date: 03/15/18 Stop Date: 03/21/18 Status: Discontinued insulin lispro 2 unit, 0.02 mL, Route: SUB-Q, Drug form: SOLN, Bedtime, Dosing Weight 68.6, kg, PRN Blood Glucose Results, Start date: 03/15/18 21:00:00 CDT, Duration: 30 day, Stop date: 04/14/18 20:59:00 CDT Notes: (Same as: Humalog ) Roll in palms of hands gently; Do not shake `vigorou sly. "Single Patient Use Only " WASTE: F/P - Black; E - [facility] [address] [facility] [address] able for 28 days at room temperature.Expires in days from Da te Start Date: 03/15/18 Stop Date: 03/21/18 Status: Discontinued insulin lispro 15 unit, 0.15 mL, Route: SUB-Q, Drug form: SOLN, TID-Before Meals, Dosing Weight 58.182, kg, PRN Blood Glucose Results, Start date: 03/03/18 14:57:00 CDT, Durat ion: 30 day, Stop date: 04/02/18 14:56:00 CDT Notes: (Same as: Humalog ) Roll in palms of hands gently; Do not shake `vigorou sly. "Single Patient Use Only " WASTE: F/P - Black; E - [facility] [address] [address] able for 28 days at room temperature.Expires in days from Da te Start Date: 03/03/18 Stop Date: 03/05/18 Status: Discontinued insulin lispro 3 unit, 0.03 mL, Route: SUB-Q, Drug form: SOLN, TID-Before Meals, Dosing Weight 58.182, kg, PRN Blood Glucose Results, Start date: 03/03/18 14:57:00 CDT, Durati on: 30 day, Stop date: 04/02/18 14:56:00 CDT Notes: (Same as: Humalog ) Roll in palms of hands gently; Do not shake `vigorou sly. "Single Patient Use Only " WASTE: F/P - Black; E - [facility] [address] [address] able for 28 days at room temperature.Expires in days from Da te Start Date: 03/03/18 Stop Date: 03/05/18 Status: Discontinued insulin lispro 6 unit, 0.06 mL, Route: SUB-Q, Drug form: SOLN, TID-Before Meals, Dosing Weight 58.182, kg, PRN Blood Glucose Results, Start date: 03/03/18 14:57:00 CDT, Durati on: 30 day, Stop date: 04/02/18 14:56:00 CDT Notes: (Same as: Humalog ) Roll in palms of hands gently; Do not shake `vigorou sly. "Single Patient Use Only " WASTE: F/P - Black; E - [facility] [address] [facility] [address] able for 28 days at room temperature.Expires in days from Da te Start Date: 03/03/18 Stop Date: 03/05/18 Status: Discontinued insulin lispro 9 unit, 0.09 mL, Route: SUB-Q, Drug form: SOLN, TID-Before Meals, Dosing Weight 58.182, kg, PRN Blood Glucose Results, Start date: 03/03/18 14:57:00 CDT, Durati on: 30 day, Stop date: 04/02/18 14:56:00 CDT Notes: (Same as: Humalog ) Roll in palms of hands gently; Do not shake `vigorou sly. "Single Patient Use Only " WASTE: F/P - Black; E - [facility] [address] [facility] [address] able for 28 days at room temperature.Expires in days from Da te Start Date: 03/03/18 Stop Date: 03/05/18 Status: Discontinued insulin lispro 12 unit, 0.12 mL, Route: SUB-Q, Drug form: SOLN, TID-Before Meals, Dosing Weight 58.182, kg, PRN Blood Glucose Results, Start date: 03/03/18 14:57:00 CDT, Durat ion: 30 day, Stop date: 04/02/18 14:56:00 CDT Notes: (Same as: Humalog ) Roll in palms of hands gently; Do not shake `vigorou sly. "Single Patient Use Only " WASTE: F/P - Black; E - [facility] [address] [facility] [address] able for 28 days at room temperature.Expires in days from Da te Start Date: 03/03/18 Stop Date: 03/05/18 Status: Discontinued insulin lispro 3 unit, 0.03 mL, Route: SUB-Q, Drug form: SOLN, Bedtime, Dosing Weight 58.182, k g, PRN Blood Glucose Results, Start date: 02/28/18 22:14:00 CDT, Duration: 30 da y, Stop date: 03/30/18 22:13:00 CDT Notes: (Same as: Humalog ) Roll in palms of hands gently; Do not shake `vigorou sly. "Single Patient Use Only " WASTE: F/P - Black; E - [facility] [address] [facility] [address] able for 28 days at room temperature.Expires in days from Da te Start Date: 02/28/18 Stop Date: 03/05/18 Status: Discontinued insulin lispro 4 unit, 0.04 mL, Route: SUB-Q, Drug form: SOLN, Bedtime, Dosing Weight 58.182, k g, PRN Blood Glucose Results, Start date: 02/28/18 22:14:00 CDT, Duration: 30 da y, Stop date: 03/30/18 22:13:00 CDT Notes: (Same as: Humalog ) Roll in palms of hands gently; Do not shake `vigorou sly. "Single Patient Use Only " WASTE: F/P - Black; E - [facility] [address] [facility] [address] able for 28 days at room temperature.Expires in days from Da te Start Date: 02/28/18 Stop Date: 03/05/18 Status: Discontinued insulin lispro 2 unit, 0.02 mL, Route: SUB-Q, Drug form: SOLN, Bedtime, Dosing Weight 58.182, k g, PRN Blood Glucose Results, Start date: 02/28/18 22:14:00 CDT, Duration: 30 da y, Stop date: 03/30/18 22:13:00 CDT Notes: (Same as: Humalog ) Roll in palms of hands gently; Do not shake `vigorou sly. "Single Patient Use Only " WASTE: F/P - Black; E - [facility] [address] [facility] [address] able for 28 days at room temperature.Expires in days from Da te Start Date: 02/28/18 Stop Date: 03/05/18 Status: Discontinued insulin lispro 1 unit, 0.01 mL, Route: SUB-Q, Drug form: SOLN, Bedtime, Dosing Weight 58.182, k g, PRN Blood Glucose Results, Start date: 02/28/18 22:14:00 CDT, Duration: 30 da y, Stop date: 03/30/18 22:13:00 CDT Notes: (Same as: Humalog ) Roll in palms of hands gently; Do not shake `vigorou sly. "Single Patient Use Only " WASTE: F/P - Black; E - [facility] [address] [facility] [address] able for 28 days at room temperature.Expires in days from Da te Start Date: 02/28/18 Stop Date: 03/05/18 Status: Discontinued insulin lispro 8 unit, 0.08 mL, Route: SUB-Q, Drug form: SOLN, TID-Before Meals, Dosing Weight 58.182, kg, PRN Blood Glucose Results, Start date: 02/28/18 22:14:00 CDT, Durati on: 30 day, Stop date: 03/30/18 22:13:00 CDT Notes: (Same as: Humalog ) Roll in palms of hands gently; Do not shake `vigorou sly. "Single Patient Use Only " WASTE: F/P - Black; E - [facility] [address] [facility] [address] able for 28 days at room temperature.Expires in days from Da te Start Date: 02/28/18 Stop Date: 03/03/18 Status: Discontinued insulin lispro 10 unit, 0.1 mL, Route: SUB-Q, Drug form: SOLN, TID-Before Meals, Dosing Weight 58.182, kg, PRN Blood Glucose Results, Start date: 02/28/18 22:14:00 CDT, Durati on: 30 day, Stop date: 03/30/18 22:13:00 CDT Notes: (Same as: Humalog ) Roll in palms of hands gently; Do not shake `vigorou sly. "Single Patient Use Only " WASTE: F/P - Black; E - [facility] [address] [facility] [address] able for 28 days at room temperature.Expires in days from Da te Start Date: 02/28/18 Stop Date: 03/03/18 Status: Discontinued insulin lispro 6 unit, 0.06 mL, Route: SUB-Q, Drug form: SOLN, TID-Before Meals, Dosing Weight 58.182, kg, PRN Blood Glucose Results, Start date: 02/28/18 22:14:00 CDT, Durati on: 30 day, Stop date: 03/30/18 22:13:00 CDT Notes: (Same as: Humalog ) Roll in palms of hands gently; Do not shake `vigorou sly. "Single Patient Use Only " WASTE: F/P - Black; E - [facility] [address] [facility] [address] able for 28 days at room temperature.Expires in days from Da te Start Date: 02/28/18 Stop Date: 03/03/18 Status: Discontinued insulin lispro 4 unit, 0.04 mL, Route: SUB-Q, Drug form: SOLN, TID-Before Meals, Dosing Weight 58.182, kg, PRN Blood Glucose Results, Start date: 02/28/18 22:14:00 CDT, Durati on: 30 day, Stop date: 03/30/18 22:13:00 CDT Notes: (Same as: Humalog ) Roll in palms of hands gently; Do not shake `vigorou sly. "Single Patient Use Only " WASTE: F/P - Black; E - [facility] [address] [facility] [address] able for 28 days at room temperature.Expires in days from Da te Start Date: 02/28/18 Stop Date: 03/03/18 Status: Discontinued insulin lispro 2 unit, 0.02 mL, Route: SUB-Q, Drug form: SOLN, TID-Before Meals, Dosing Weight 58.182, kg, PRN Blood Glucose Results, Start date: 02/28/18 22:14:00 CDT, Durati on: 30 day, Stop date: 03/30/18 22:13:00 CDT Notes: (Same as: Humalog ) Roll in palms of hands gently; Do not shake `dilan augustusjanett. "Single Patient Use Only " WASTE: F/P - Black; E - [facility] [address] [facility] [address] able for 28 days at room temperature.Expires in days from Da te Start Date: 02/28/18 Stop Date: 03/03/18 Status: Discontinued Insulin regular (ANES) 1 unit Route: IV, Drug form: INJ, Start date: 03/05/18 8:40:00 CDT, Stop date: 03/05/18 9:40:00 CDT Start Date: 03/05/18 Stop Date: 03/05/18 Status: Completed Insulin regular 100 unit + Sodium Chloride 0.9% (titrate) 99 mL 99 mL, Rate: Start Insulin Drip Per ICU Protocol, Dosing Weight 56.8, kg, Route: IVPB, Total Volume: 100, Start Date: 03/05/18 8:45:00 CDT, Duration: 30 day, St op date: 04/04/18 8:44:00 CDT, Replace Every: 24 hr Notes: (Same as: Humulin R and NovoLIN R)WASTE: F/P - Black; E - [facility] (Do not shake) Start Date: 03/05/18 Stop Date: 03/05/18 Status: Discontinued Insulin regular 100 unit + Sodium Chloride 0.9% (titrate) 99 mL 99 mL, Rate: Start Insulin Drip Per ICU Protocol, Dosing Weight 56.8, kg, Route: IV, Total Volume: 100, Start Date: 03/05/18 8:49:00 CDT, Stop date: 04/04/18 8: 48:00 CDT, Replace Every: 24 hr Notes: (Same as: Humulin R and NovoLIN R)WASTE: F/P - Black; E - [facility] (Do not shake) Start Date: 03/05/18 Stop Date: 03/10/18 Status: Discontinued Lasix 40 mg, 4 mL, Route: IVP, Drug form: INJ, ONCE, Dosing Weight 56.8, kg, Start blake e: 03/07/18 17:13:00 CDT, Stop date: 03/07/18 17:13:00 CDT Notes: (Same as: Lasix) MEDICATION WASTE Product Size: 40 mgProduct Was lorena: ___ mg Start Date: 03/07/18 Stop Date: 03/07/18 Status: Completed Lasix 100 mg, 10 mL, Route: IV, Drug form: INJ, ONCE, Dosing Weight 56.8, kg, Start da te: 03/08/18 17:59:00 CDT, Stop date: 03/08/18 17:59:00 CDT Notes: (Same as: Lasix) MEDICATION WASTE Product Size: 100 mgProduct Wa sted: ___ mg Start Date: 03/08/18 Stop Date: 03/08/18 Status: Completed Lasix 40 mg, 4 mL, Route: IVP, Drug form: INJ, ONCE, Dosing Weight 56.8, kg, Start blake e: 03/08/18 17:09:00 CDT, Stop date: 03/08/18 17:09:00 CDT Notes: (Same as: Lasix) MEDICATION WASTE Product Size: 40 mgProduct Was lorena: ___ mg Start Date: 03/08/18 Stop Date: 03/08/18 Status: Discontinued Lasix 40 mg, 4 mL, Route: IVP, Drug form: INJ, Q8Hnow, Dosing Weight 56.8, kg, Start d ate: 03/06/18 6:00:00 CDT, Duration: 30 day, Stop date: 04/04/18 22:00:00 CDT Notes: (Same as: Lasix) MEDICATION WASTE Product Size: 40 mgProduct Was lorena: ___ mg Start Date: 03/06/18 Stop Date: 03/06/18 Status: Discontinued Lasix 80 mg, 8 mL, Route: IVP, Drug form: INJ, ONCE, Dosing Weight 56.8, kg, Start blake e: 03/06/18 17:13:00 CDT, Stop date: 03/06/18 17:13:00 CDT Notes: (Same as: Lasix) MEDICATION WASTE Product Size: 40 mgProduct Was lorena: ___ mg Start Date: 03/06/18 Stop Date: 03/06/18 Status: Completed Lasix + Sodium Chloride 0.9% IV 40 mL 100 mg, 10 mL, Route: IV, Drug form: INJ, ONCE, Dosing Weight 56.8, kg, Start da te: 03/09/18 7:16:00 CDT, Stop date: 03/09/18 7:16:00 CDT Notes: (Same as: Lasix) MEDICATION WASTE Product Size: 100 mgProduct Ga sted: ___ mg Start Date: 03/09/18 Stop Date: 03/09/18 Status: Completed lidocaine (ANES) Route: IV, Drug form: INJ, ONCE, Stop date: 03/05/18 9:18:00 CDT Start Date: 03/05/18 Stop Date: 03/05/18 Status: Completed lidocaine (ANES) Route: IV, Drug form: INJ, ONCE, Stop date: 03/19/18 13:49:00 CDT Start Date: 03/19/18 Stop Date: 03/19/18 Status: Completed lisinopril 2.5 mg oral tablet 2.5 mg = 1 tab, PO, Daily, # 30 tab, 0 Refill(s), Pharmacy: [facility] [id number] Start Date: 03/18/18 Status: Suspended Lopressor 12.5 mg, 12.5 mL, Route: PO, Drug form: INJ, ONCE, Dosing Weight 58.182, kg, Sta rt date: 03/05/18 6:00:00 CDT, Stop date: 03/05/18 6:00:00 CDT Notes: (Same as: Lopressor)Push over 2 minutes Start Date: 03/05/18 Stop Date: 03/05/18 Status: Completed Lopressor 12.5 mg, 0.5 tab, Route: PO, Drug form: TAB, Q12H, Dosing Weight 56.8, kg, Start date: 03/05/18 9:00:00 CDT, Stop date: 04/03/18 21:00:00 CDT Notes: (Same as: Lopressor) Start Date: 03/05/18 Stop Date: 03/21/18 Status: Discontinued magnesium sulfate 2 gm, 50 mL, Route: IVPB, Drug form: INJ, PRN, Dosing Weight 56.8, kg, PRN Abnor mal Lab Result, Start date: 03/05/18 8:49:00 CDT, Duration: 30 day, Stop date: 0 04/04/18 8:48:00 CDT, FOR ICU USE ONLY Notes: WASTE: F/P - Sink; E - [facility] Start Date: 03/05/18 Stop Date: 03/15/18 Status: Discontinued Maxipime 1 gm, Route: IVPB, DENQ12H, Dosing Weight 56.8, kg, (CrCl 30 - 49 ml/min), Start date: 03/05/18 9:00:00 CDT, Duration: 2 doses or times, Stop date: 03/05/18 21: 00:00 CDT, ABX Indication: Surgical Prophylaxis Start Date: 03/05/18 Stop Date: 03/05/18 Status: Discontinued melatonin 3 mg, 1 tab, Route: PO, Drug form: TAB, Bedtime, Dosing Weight 58.182, kg, PRN S leep, Start date: 02/28/18 17:36:00 CDT, Duration: 30 day, Stop date: 03/30/18 1 7:35:00 CDT Notes: (Same as: Melatonin) Start Date: 02/28/18 Stop Date: 03/21/18 Status: Discontinued metoclopramide (ANES) Route: IV, Drug form: INJ, ONCE, Stop date: 03/19/18 13:54:00 CDT Start Date: 03/19/18 Stop Date: 03/19/18 Status: Completed metoclopramide 5 mg oral tablet 5 mg, 1 tab, Route: PO, Drug form: TAB, QID-Before Meals, Dosing Weight 58.182, kg, PRN Nausea & Vomiting, Start date: 02/28/18 17:42:00 CDT, Duration: 30 day, Stop date: 03/30/18 17:41:00 CDT Notes: (Same as: Reglan) Take 30 min before meals Start Date: 02/28/18 Stop Date: 03/21/18 Status: Discontinued metoprolol tartrate 25 mg oral tablet 12.5 mg = 0.5 tab, PO, Q12H, # 30 tab, 0 Refill(s), [facility] [id number] Start Date: 03/18/18 Stop Date: 04/17/18 Status: Suspended midazolam (ANES) Route: IV, Drug form: SOLN, ONCE, Stop date: 03/05/18 9:43:00 CDT Start Date: 03/05/18 Stop Date: 03/05/18 Status: Completed midodrine 10 mg, 2 tab, Route: PO, Drug form: TAB, Before Dialysis, Dosing Weight 68.6, kg , PRN Other -See Comment, Start date: 03/15/18 13:22:00 CDT, Duration: 30 day, S top date: 04/14/18 13:21:00 CDT, before dialysis Notes: (Same as:Proamatine) Start Date: 03/15/18 Stop Date: 03/21/18 Status: Discontinued midodrine 5 mg oral tablet 10 mg = 2 tab, PO, Before Dialysis, PRN Other -See Comment | before dialysis, 0 Refill(s) Start Date: 03/21/18 Status: Suspended morphine Sulfate 6 mg, 3 mL, Route: PO, Drug form: SOLN, Q6H, Dosing Weight 58.182, kg, PRN Pain Score 7-10, Start date: 02/28/18 17:31:00 CDT, Stop date: 03/30/18 17:30:00 CDT Notes: (Same as:MORPhine Sulfate) Start Date: 02/28/18 Stop Date: 03/12/18 Status: Discontinued morphine Sulfate 4 mg, Route: IVP, ONCE, Dosing Weight 58.182, kg, Start date: 03/01/18 9:12:00 C DT, Stop date: 03/01/18 9:12:00 CDT Start Date: 03/01/18 Stop Date: 03/01/18 Status: Completed morphine Sulfate 6 mg, 3 mL, Route: PO, Drug form: SOLN, Q6H, Dosing Weight 56.8, kg, PRN Pain Sc ore 1-5, Start date: 03/05/18 8:49:00 CDT, Stop date: 04/04/18 8:48:00 CDT Notes: (Same as:MORPhine Sulfate) Start Date: 03/05/18 Stop Date: 03/15/18 Status: Discontinued morphine Sulfate 12 mg, 6 mL, Route: PO, Drug form: SOLN, Q6H, Dosing Weight 56.8, kg, PRN Pain S core 6-10, Start date: 03/05/18 8:49:00 CDT, Stop date: 04/04/18 8:48:00 CDT Notes: (Same as:MORPhine Sulfate) Start Date: 03/05/18 Stop Date: 03/15/18 Status: Discontinued mupirocin topical 2% ointment 1 appl, Route: NASAL, BID, Drug form: OINT, Start date: 03/05/18 9:00:00 CDT, St op date: 03/09/18 17:00:00 CDT Start Date: 03/05/18 Stop Date: 03/09/18 Status: Completed niCARdipine 40 mg in NS 200 mL (Titrate.) IV 40 mg 40 mg, 200 mL, Rate: Titrate, Start Dose: 5 mg/hr, Titration: 2.5 mg/hr every 15 minutes, Goal(s): SBP <140 mmHg, Max Dose: 15 mg/hr, Route: IV, Dosing Weight 56.8 kg, Total Volume: 200, Start date: 03/05/18 8:49:00 CDT, Duration: 30 day, Stop date: 0... Notes: Same as: CardeneConcentration: (0.2 mg /1 ml ) Start Date: 03/05/18 Stop Date: 03/11/18 Status: Discontinued nitroglycerin 0.4 mg, 1 tab, Route: SL, Drug form: TAB, Q5Min, Dosing Weight 56.8, kg, PRN Adrianne st Pain, Start date: 03/05/18 8:49:00 CDT, Duration: 30 day, Stop date: 04/04/18 8:48:00 CDT Notes: (Same as:Nitroquick, Nitrostat)"Do Not Crush" Sublingual tablet Start Date: 03/05/18 Stop Date: 03/21/18 Status: Discontinued nitroglycerin (ANES) 400 microgram Route: IV, Drug form: INJ, Start date: 03/05/18 8:40:00 CDT, Stop date: 03/05/18 9:40:00 CDT Start Date: 03/05/18 Stop Date: 03/05/18 Status: Completed nitroglycerin 100 mg in D5W 250 mL (Titrate.) IV 100 mg 100 mg, 250 mL, Rate: Titrate, Start Dose: 10 microgram/min, Titration: 10 micro gram/min every 5 minutes, Goal(s): Chest pain and SBP between 100 - 150 mmHg, Ma x Dose: 200 mcg/min, Route: IV, Dosing Weight 58.182 kg, Total Volume: 250, Star t date: .. Notes: (Same as:Tridil) Final conc = 0.4 mg/ml. Premix bottle. Start Date: 03/01/18 Stop Date: 03/05/18 Status: Discontinued nitroglycerin 100 mg in D5W 250 mL (Titrate.) IV 100 mg 100 mg, 250 mL, Rate: Titrate, Start Dose: 0.2 microgram/min, Titration: 0.2 devon rogram/min every 5 minutes, Goal(s): SBP < 150 mmHg, Max Dose: 3 mcg/min, Route: IV, Dosing Weight 56.8 kg, Total Volume: 250, Start date: 03/05/18 8:49:00 CDT, Duration:... Notes: (Same as:Tridil) Final conc = 0.4 mg/ml. Premix bottle. Start Date: 03/05/18 Stop Date: 03/11/18 Status: Discontinued nitroglycerin 2% topical ointment 1 inch, Route: TOP, Drug Form: OINT, Dosing Weight 58.182, kg, ONCE, STAT, Start date: 02/28/18 15:59:00 CDT, Stop date: 02/28/18 15:59:00 CDT Notes: 1 gram is approximately 1 inch of nitroglycerin ointment (20 mg NTG pe r gram) (Same as:Nitro-Bid) Start Date: 02/28/18 Stop Date: 02/28/18 Status: Completed [place] 10/325 oral tablet 1 tab, Route: PO, Drug Form: TAB, Dosing Weight 68.6, kg, Q6H, PRN Pain Score 4- 6, Start date: 03/18/18 21:00:00 CDT, Duration: 30 day, Stop date: 04/17/18 20:5 9:00 CDT Notes: Do not exceed 4gm/day of acetaminophen. (Same as: [place] 325/10) Start Date: 03/18/18 Stop Date: 03/19/18 Status: Discontinued norepinephrine 8 mg in 250 mL (Titrate.) IV 8 mg 8 mg, 250 mL, Rate: Titrate, Start Dose: 5 microgram/min, Titration: 2 microgram /min every 2-5 minutes, Goal(s): for SBP greater than 90, Max Dose: 70 microgram /min, Route: IV, Dosing Weight 68.6 kg, Total Volume: 250, Start date: 03/11/18 16:30:00 CD... Notes: Same as: Levophed. Administer by either central venous catheter or periph erally-inserted central catheter (PICC) line.Concentration: 0.032 mg / mL Start Date: 03/11/18 Stop Date: 03/15/18 Status: Discontinued norepinephrine 8 mg in 250 mL (Titrate.) IV 8 mg 8 mg, 250 mL, Rate: Titrate, Start Dose: 5 microgram/min, Titration: 2 microgram /min every 2-5 minutes, Goal(s): for SBP greater than 90, Max Dose: 70 microgram /min, Route: IV, Dosing Weight 56.8 kg, Total Volume: 250, Start date: 03/05/18 8:49:00 CDT... Notes: Same as: Levophed. Administer by either central venous catheter or periph erally-inserted central catheter (PICC) line.Concentration: 0.032 mg / mL Start Date: 03/05/18 Stop Date: 03/11/18 Status: Discontinued norepinephrine 8 mg in 250 mL (Titrate.) IV 8 mg + Dextrose 5% in Water IV 242 m L 8 mg, 8 mL, Rate: Titrate, Start Dose: 0.1 microgram/kg/min, Titration: 0.05 devon rogram/kg/min every 2 - 5 minutes, Goal(s): MAP >= 65 mmHg, Max Dose: 1 microgram/kg/min, Route: IV, Dosing Weight 56.8 kg, Total Volume: 250, Start date: 03/05/18 6:23:00... Notes: Not for direct administration - DILUTE. Protect from light. (Same as:Levo phed). Administer by either central venous catheter or peripherally-inserted luz tral catheter (PICC) line. Start Date: 03/05/18 Stop Date: 03/05/18 Status: Discontinued [id number] 250 mL 250 mL, Rate: To prime line and flush remaining blood products., Route: IV, Dosi ng Weight 58.182 kg, Total Volume: 250, Priority: Routine, Start date: 03/04/18 12:35:00 CDT, Duration: 1 day, Stop date: 03/05/18 12:34:00 CDT, 1.59, m2 Start Date: 03/04/18 Stop Date: 03/05/18 Status: Completed NTG sublingual tablet 0.4 mg, 1 tab, Route: SL, Drug form: TAB, ONCE, Dosing Weight 58.182, kg, Start date: 02/28/18 12:03:00 CDT, Stop date: 02/28/18 12:03:00 CDT Notes: (Same as:Nitroquick, Nitrostat)"Do Not Crush" Sublingual tablet Start Date: 02/28/18 Stop Date: 02/28/18 Status: Completed ocular lubricant 1 appl, Route: BOTH EYES, Q6H, Drug form: OINT, Start date: 03/05/18 12:00:00 CD T, Duration: 30 day, Stop date: 04/04/18 6:00:00 CDT Notes: (Same as: Lacri-Lube, Duratears Naturale, Artificial Tears, and Tears Aga in ) Start Date: 03/05/18 Stop Date: 03/06/18 Status: Discontinued omeprazole 20 mg, Route: PO, Drug form: DRC, Daily, Dosing Weight 58.182, kg, Start date: 0 03/01/18 9:00:00 CDT, Duration: 30 day, Stop date: 03/30/18 9:00:00 CDT Start Date: 03/01/18 Stop Date: 02/28/18 Status: Deleted ondansetron 4 mg, 2 mL, Route: IVP, Drug form: INJ, Q6H, Dosing Weight 58.182, kg, PRN Nause a & Vomiting, Start date: 02/28/18 17:31:00 CDT, Duration: 30 day, Stop date: 03/30/18 17:30:00 CDT Notes: (Same as: Rosanne) MEDICATION WASTE Product Size: 4 mgProduct Was lorena: ___ mg Start Date: 02/28/18 Stop Date: 03/21/18 Status: Discontinued ondansetron 4 mg, 2 mL, Route: IVP, Drug form: INJ, Q8H, Dosing Weight 56.8, kg, PRN Nausea & Vomiting, Start date: 03/05/18 8:49:00 CDT, Duration: 30 day, Stop date: 04/04/18 8:48:00 CDT Notes: (Same as: Rosanne) MEDICATION WASTE Product Size: 4 mgProduct Was lorena: _0__ mg Start Date: 03/05/18 Stop Date: 03/05/18 Status: Discontinued pantoprazole 40 mg, Route: IV, Drug form: INJ, Daily, Dosing Weight 56.8, kg, Priority: NOW, Start date: 03/05/18 17:10:00 CDT, Duration: 1 doses or times, Stop date: 17:10:00 CDT Notes: (Same as: Protonix) Start Date: 03/05/18 Stop Date: 03/05/18 Status: Completed phenylephrine 50 mg in NS 250 mL (Titrate.) IV 50 mg 50 mg, 250 mL, Rate: Titrate, Start Dose: 0.5 microgram/kg/min, Titration: 0.5 m icrogram/kg/min every 2 - 5 minutes, Goal(s): MAP >= 65, Max Dose: 5 microgram/kg/min, Route: IV, Dosing Weight 56.8 kg, Total Volume: 250, Start date: 03/05/18 6:26:00 CD... Start Date: 03/05/18 Stop Date: 03/05/18 Status: Deleted phenylephrine 50 mg in NS 250 mL (Titrate.) IV 50 mg + Sodium Chloride 0.9% IV 2 45 mL 50 mg, 5 mL, Rate: Titrate, Start Dose: 35 microgram/min, Titration: 25 microgra m/min every 2-5 minutes, Goal(s): for SBP greater than 90, Max Dose: 350 mcg/min , Route: IV, Dosing Weight 56.8 kg, Total Volume: 250, Start date: 03/05/18 8:49 :00 CDT, Du... Notes: (Same as: Nicho-Synephrine) Start Date: 03/05/18 Stop Date: 03/11/18 Status: Discontinued phenylephrine 50 mg in NS 250 mL (Titrate.) IV 50 mg + Sodium Chloride 0.9% IV 2 50 mL 50 mg, 5 mL, Rate: Titrate, Start Dose: 0.5 microgram/kg/min, Titration: 0.5 devon rogram/kg/min every 2 - 5 minutes, Goal(s): MAP >= 65 mmHg, Max Dose: 5 microgram/kg/min, Route: IV, Dosing Weight 58.182 kg, Total Volume: 255, Start date: 03/05/18 6:00:... Notes: (Same as: Nicho-Synephrine) Start Date: 03/05/18 Stop Date: 03/05/18 Status: Discontinued PlasmaLyte A PH-7.4 250 mL 250 mL, Rate: [place] per order comments, Rate: 0 ml/hr, Infuse over: 0, Route : IV, Dosing Weight 56.8 kg, Total Volume: 250, Start date: 03/05/18 8:49:00 CDT , Stop date: 04/04/18 8:48:00 CDT, 1.57, m2 Notes: WASTE: F/P - Sink; E - Municipal Trash Bin Start Date: 03/05/18 Stop Date: 03/05/18 Status: Discontinued Plavix 75 mg, 1 tab, Route: PO, Drug form: TAB, Daily, Dosing Weight 56.8, kg, Start da te: 03/06/18 9:00:00 CDT, Duration: 30 day, Stop date: 04/04/18 9:00:00 CDT Notes: (Same As: Plavix) Start Date: 03/06/18 Stop Date: 03/21/18 Status: Discontinued potassium chloride 20 mEq, 15 mL, Route: NJ, Drug form: LIQ, PRN, Dosing Weight 56.8, kg, PRN Abnor mal Lab Result, Start date: 03/05/18 8:49:00 CDT, Duration: 30 day, Stop date: 0 04/04/18 8:48:00 CDT, FOR ICU USE ONLY Notes: (Same as: Potassium Chloride) Start Date: 03/05/18 Stop Date: 03/15/18 Status: Discontinued potassium chloride 20 mEq, 1 tab, Route: PO, Drug form: ERTAB, PRN, Dosing Weight 56.8, kg, PRN Abn ormal Lab Result, Start date: 03/05/18 8:49:00 CDT, Duration: 30 day, Stop date: 04/04/18 8:48:00 CDT, FOR ICU USE ONLY Notes: (Same as: K-Dur 20)"Do Not Crush"For patients unable to swallow tablet, d issolve in one half glass of water. Allow about 2 minutes for the tablets to dis integrate. Stir before giving to prepare slurry and administer.Please exclude Pa tients with feeding tube less than 14 Ukrainian (Dobhoff, J-tube etc) and pediat amadou and patients. With food and full glass of water Start Date: 03/05/18 Stop Date: 03/15/18 Status: Discontinued potassium chloride + Sodium Chloride 0.9% IV 90 mL 20 mEq, 10 mL, Route: IV Central, PRN, Dosing Weight 56.8, kg, PRN Abnormal Lab Result, Via central line, Start date: 03/05/18 8:49:00 CDT, Duration: 30 day, St op date: 04/04/18 8:48:00 CDT, FOR ICU USE ONLY Notes: MUST be Diluted before use(Same as: KCl) MEDICATION WASTE Product Size: 40 mEqProduct Wasted: ___ mEq Start Date: 03/05/18 Stop Date: 03/15/18 Status: Discontinued potassium chloride + Sodium Chloride 0.9% IV 95 mL 10 mEq, 5 mL, Route: IVPB, PRN, Dosing Weight 56.8, kg, PRN Abnormal Lab Result, Via peripheral line, Start date: 03/05/18 8:49:00 CDT, Duration: 30 day, Stop d ate: 04/04/18 8:48:00 CDT, FOR ICU USE ONLY Notes: MUST be Diluted before use(Same as: KCl) MEDICATION WASTE Product Size: 40 mEqProduct Wasted: ___ mEq Start Date: 03/05/18 Stop Date: 03/15/18 Status: Discontinued propofol (ANES) Route: IV, Drug form: INJ, ONCE, Stop date: 03/05/18 9:18:00 CDT Start Date: 03/05/18 Stop Date: 03/05/18 Status: Completed propofol (ANES) Route: IV, Drug form: INJ, ONCE, Stop date: 03/19/18 13:49:00 CDT Start Date: 03/19/18 Stop Date: 03/19/18 Status: Completed protamine (ANES) 10 mg Route: IV, Drug form: INJ, Start date: 03/05/18 12:34:00 CDT, Stop date: 8 13:34:00 CDT Start Date: 03/05/18 Stop Date: 03/05/18 Status: Completed Protonix 40 mg, 1 tab, Route: PO, Drug form: ECTAB, Daily, Start date: 03/01/18 9:00:00 C DT, Stop date: 03/30/18 9:00:00 CDT Notes: Tablet should not be chewed or crushed.(Same as: Protonix) Start Date: 03/01/18 Stop Date: 03/21/18 Status: Discontinued rocuronium (ANES) Route: IV, Drug form: INJ, ONCE, Stop date: 03/05/18 9:18:00 CDT Start Date: 03/05/18 Stop Date: 03/05/18 Status: Completed sodium bicarbonate 8.4% 50 mEq, 50 ml, Route: IVP, Drug Form: INJ, Dosing Weight 68.6, kg, ONCE, Start d ate: 03/12/18 12:41:00 CDT, Stop date: 03/12/18 12:41:00 CDT Notes: (sodium bicarb 8.4% (1 mEq/ml) 50 ml syringe) Start Date: 03/12/18 Stop Date: 03/12/18 Status: Completed sodium bicarbonate 8.4% 50 mEq, 50 ml, Route: IVP, Drug Form: INJ, Dosing Weight 68.6, kg, ONCE, Start d ate: 03/12/18 16:25:00 CDT, Stop date: 03/12/18 16:25:00 CDT Notes: (sodium bicarb 8.4% (1 mEq/ml) 50 ml syringe) Start Date: 03/12/18 Stop Date: 03/12/18 Status: Completed sodium bicarbonate 8.4% 50 mEq, 50 ml, Route: IVP, Drug Form: INJ, Dosing Weight 56.8, kg, ONCE, NOW, St art date: 03/06/18 16:20:00 CDT, Stop date: 03/06/18 16:20:00 CDT Notes: (sodium bicarb 8.4% (1 mEq/ml) 50 ml syringe) Start Date: 03/06/18 Stop Date: 03/06/18 Status: Completed Sodium Chloride 0.9% (Bolus) IV 500 mL, Route: IV, ONCE, Dosing Weight 68.6 kg, Start date: 03/19/18 14:39:00 CD T, Stop date: 03/19/18 14:39:00 CDT, Bolus Start Date: 03/19/18 Stop Date: 03/19/18 Status: Completed Sodium Chloride 0.9% (Bolus) IV 500 mL, 500 ml/hr, Infuse Over: 1 hr, Route: IV, ONCE, Priority: STAT, Dosing We ight 68.6 kg, Start date: 03/17/18 19:43:00 CDT, Stop date: 03/17/18 19:43:00 CD T Start Date: 03/17/18 Stop Date: 03/17/18 Status: Completed Sodium Chloride 0.9% (Bolus) IV Route: IV, PRN, Dosing Weight 56.8 kg, Start date: 03/05/18 14:50:00 CDT, Durati on: 30 day, Stop date: 04/04/18 14:49:00 CDT, PRN See Nurse's Notes Start Date: 03/05/18 Stop Date: 03/05/18 Status: Discontinued Sodium Chloride 0.9% (titrate) 250 mL 250 mL, Rate: To prime line and flush remaining blood products., Dosing Weight 6 8.6, kg, Route: IV, Total Volume: 250, Priority: Routine, Start Date: 03/20/18 1 0:11:00 CDT, Duration: 1 day, Stop date: 03/21/18 10:10:00 CDT, Replace Every: 2 4 hr Start Date: 03/20/18 Stop Date: 03/21/18 Status: Completed Sodium Chloride 0.9% (titrate) 250 mL 250 mL, Rate: To prime line and flush remaining blood products., Dosing Weight 5 8.182, kg, Route: IV, Total Volume: 250, Start Date: 03/04/18 14:18:00 CDT, Dura tion: 1 day, Stop date: 03/05/18 14:17:00 CDT, Replace Every: 24 hr Start Date: 03/04/18 Stop Date: 03/05/18 Status: Deleted Sodium Chloride 0.9% (titrate) 250 mL 250 mL, Rate: To prime line and flush remaining blood products., Dosing Weight 5 6.8, kg, Route: IV, Total Volume: 250, Priority: Routine, Start Date: 03/05/18 8 :45:00 CDT, Duration: 1 day, Stop date: 03/06/18 8:44:00 CDT, Replace Every: 24 hr Start Date: 03/05/18 Stop Date: 03/05/18 Status: Discontinued Sodium Chloride 0.9% (titrate) 250 mL 250 mL, Rate: To prime line and flush remaining blood products., Dosing Weight 5 8.182, kg, Route: IV, Total Volume: 250, Priority: Routine, Start Date: 03/01/18 9:26:00 CDT, Duration: 1 day, Stop date: 03/02/18 9:25:00 CDT, Replace Every: 24 hr Start Date: 03/01/18 Stop Date: 03/02/18 Status: Completed Sodium Chloride 0.9% IV (ANES) 1000 mL Route: IV, Total Volume: 1,000, Start date: 03/05/18 8:23:00 CDT, Stop date: 06/15 9:23:00 CDT Start Date: 03/05/18 Stop Date: 03/05/18 Status: Completed Sodium Chloride 0.9% IV (ANES) 500 mL Route: IV, Total Volume: 500, Start date: 03/19/18 13:07:00 CDT, Stop date: 02/27 12/16 14:07:00 CDT Start Date: 03/19/18 Stop Date: 03/19/18 Status: Completed Sodium Chloride 0.9% IV 250 mL 250 mL, Rate: See order comments, Route: IV, Dosing Weight 56.8 kg, Total Volume : 250, Start date: 03/05/18 15:09:00 CDT, Duration: 30 day, Stop date: 04/04/18 15:08:00 CDT, 1.57, m2 Start Date: 03/05/18 Stop Date: 03/11/18 Status: Discontinued Stimate (ANES) Route: IV, Drug form: INJ, ONCE, Stop date: 03/05/18 13:30:00 CDT Start Date: 03/05/18 Stop Date: 03/05/18 Status: Completed tranexamic acid (ANES) Route: IV, Drug form: INJ, ONCE, Stop date: 03/05/18 10:45:00 CDT Start Date: 03/05/18 Stop Date: 03/05/18 Status: Completed tranexamic acid (ANES) 100 mg Route: IV, Drug form: INJ, Start date: 03/05/18 9:00:00 CDT, Stop date: 03/05/18 10:00:00 CDT Start Date: 03/05/18 Stop Date: 03/05/18 Status: Completed vancomycin (ANES) Route: IV, Drug form: INJ, ONCE, Stop date: 03/05/18 9:43:00 CDT Start Date: 03/05/18 Stop Date: 03/05/18 Status: Completed vancomycin (ANES) 1000 mg Route: IV, Drug form: INJ, Start date: 03/19/18 13:16:00 CDT, Stop date: 8 14:16:00 CDT Start Date: 03/19/18 Stop Date: 03/19/18 Status: Completed vancomycin (SCIP) 852 mg, Route: IVPB, Drug form: INJ, [id number], Dosing Weight 56.8, kg, Time Criti benson Medication, Start date: 03/05/18 9:00:00 CDT, Duration: 2 doses or times, St op date: 03/05/18 21:00:00 CDT, ABX Indication: Surgical Prophylaxis Start Date: 03/05/18 Stop Date: 03/05/18 Status: Discontinued vancomycin (SCIP) + Dextrose 5% in Water IV 250 mL 1,000 mg, Route: IVPB, ONCE, Dosing Weight 56.8, kg, Time Critical Medication, S tart date: 03/06/18 9:00:00 CDT, Stop date: 03/06/18 9:00:00 CDT, ABX Indication : Surgical Prophylaxis Notes: TIME CRITICAL MEDICATION(Same As: Vancocin)Infusion rate< 1000 mg: infuse over 1 [id number] - 1500 mg: infuse over 1.5 [id number] - 2000 mg: infuse over 2 hours> 2001 mg: infuse over 2.5 hoursFor adult patients only: Round to nearest 250 mg per Medical Staff approval MEDICATION WASTE Product Size: 1000 mgProduct Wasted: 0mg Start Date: 03/06/18 Stop Date: 03/06/18 Status: Completed vancomycin + Dextrose 5% in Water IV 250 mL 1,500 mg, Route: IVPB, ONCALL, Dosing Weight 58.182, kg, Start date: 03/04/18 13 :00:00 CDT, Duration: 1 doses or times, ABX Indication: Surgical Prophylaxis Notes: TIME CRITICAL MEDICATION(Same As: Vancocin)Infusion rate< 1000 mg: infuse over 1 [id number] - 1500 mg: infuse over 1.5 [id number] - 2000 mg: infuse over 2 hours> 2001 mg: infuse over 2.5 hoursFor adult patients only: Round to nearest 250 mg per Medical Staff approval MEDICATION WASTE Product Size: 1000 mgProduct Wasted: ___ mg Start Date: 03/04/18 Stop Date: 03/05/18 Status: Discontinued Results BLOOD BANK RESULTS 1 2 3 Most recent to oldest [Reference Range]: O POS *Unknown* (03/19/18 9:40 AM) O POS *Unknown* (03/08/18 10:53 AM) O POS *Unknown* (03/04/18 2:23 PM) ABO/Rh Negative (03/19/18 9:40 AM) Negative (03/08/18 10:53 AM) Negative (03/04/18 2:23 PM) Antibody Scrn Product available (03/04/18 12:35 PM) FFP product Product available (03/04/18 12:35 PM) Platelet product Product available 1 (03/20/18 10:11 AM) Product available 2 (03/10/18 1:55 PM) Product available 3 (03/08/18 9:21 AM) RBC product 1Result Comment: 03/20/2018 10:35 [id number] notified Rossy 2Result Comment: 03/10/2018 14:06 [id number] Called to _NURSE JOSE at _03/10/2018 14:03 by [facility]_. 3Result Comment: 03/08/2018 13:03 [id number] [facility] notified Etelvina 03/08/2018 12:35 ELECTROLYTES 1 2 3 Most recent to oldest [Reference Range]: 136 mEq/L (03/21/18 9:35 AM) 137 mEq/L (03/20/18 5:14 AM) 133 mEq/L *LOW* (03/19/18 4:45 AM) Sodium Lvl [135-145 mEq/L] 3.6 mEq/L (03/21/18 9:35 AM) 3.7 mEq/L (03/20/18 5:14 AM) 4.9 mEq/L (03/19/18 4:45 AM) Potassium Lvl [3.5-5.1 mEq/L] 97 mEq/L (03/21/18 9:35 AM) 97 mEq/L (03/20/18 5:14 AM) 100 mEq/L (03/19/18 4:45 AM) Chloride Lvl [95-109 mEq/L] 27 mEq/L (03/21/18 9:35 AM) 26 mEq/L (03/20/18 5:14 AM) 20 mEq/L *LOW* (03/19/18 4:45 AM) CO2 [24-32 mEq/L] 15.6 mEq/L (03/21/18 9:35 AM) 17.7 mEq/L (03/20/18 5:14 AM) 17.9 mEq/L (03/19/18 4:45 AM) AGAP [10.0-20.0 mEq/L] CHEM PANEL 1 2 3 Most recent to oldest [Reference Range]: 4.74 mg/dL *HI* (03/21/18 9:35 AM) 3.23 mg/dL *HI* (03/20/18 5:14 AM) 5.60 mg/dL *HI* (03/19/18 4:45 AM) Creatinine Lvl [0.50-1.40 mg/dL] 9 mL/min/1.73m2 1 *NA* (03/21/18 9:35 AM) 14 mL/min/1.73m2 2 *NA* (03/20/18 5:14 AM) 7 mL/min/1.73m2 3 *NA* (03/19/18 4:45 AM) eGFR 35 mg/dL *HI* (03/21/18 9:35 AM) 23 mg/dL *HI* (03/20/18 5:14 AM) 47 mg/dL *HI* (03/19/18 4:45 AM) BUN [7-22 mg/dL] 16 (03/07/18 3:10 AM) 16 (03/06/18 4:59 AM) 18 (03/05/18 5:39 AM) B/C Ratio [6-25] 321 mg/dL *HI* (03/21/18 9:35 AM) 241 mg/dL *HI* (03/20/18 5:14 AM) 171 mg/dL *HI* (03/19/18 4:45 AM) Glucose Lvl [70-99 mg/dL] 6.6 g/dL (03/07/18 3:10 AM) 5.7 g/dL *LOW* (03/06/18 4:59 AM) 5.6 g/dL *LOW* (03/06/18 4:59 AM) Total Protein [6.4-8.4 g/dL] 3.5 g/dL (03/07/18 3:10 AM) 2.8 g/dL *LOW* (03/06/18 4:59 AM) 2.8 g/dL *LOW* (03/06/18 4:59 AM) Albumin Lvl [3.5-5.0 g/dL] 3.1 g/dL (03/07/18 3:10 AM) 2.9 g/dL (03/06/18 4:59 AM) 2.8 g/dL (03/06/18 4:59 AM) Globulin [2.7-4.2 g/dL] 1.1 (03/07/18 3:10 AM) 1.0 (03/06/18 4:59 AM) 1.0 (03/06/18 4:59 AM) A/G Ratio [0.7-1.6] 8.2 mg/dL *LOW* (03/21/18 9:35 AM) 7.9 mg/dL *LOW* (03/20/18 5:14 AM) 8.6 mg/dL (03/19/18 4:45 AM) Calcium Lvl [8.5-10.5 mg/dL] 6.1 mg/dL *HI* (03/08/18 3:26 AM) 4.0 mg/dL (03/05/18 5:39 AM) 3.9 mg/dL (03/04/18 6:11 AM) Phosphorus [2.5-4.5 mg/dL] 2.0 mg/dL (03/20/18 5:14 AM) 2.1 mg/dL (03/19/18 4:45 AM) 2.2 mg/dL (03/18/18 4:58 AM) Magnesium Lvl [1.8-2.4 mg/dL] 2.5 mg/dL *LOW* (03/11/18 4:40 AM) 2.4 mg/dL *LOW* (03/10/18 2:16 AM) 2.3 mg/dL *LOW* (03/09/18 2:52 AM) Mg Therap (LD) [4.5-7.5 mg/dL] 8 unit/L (03/07/18 3:10 AM) 16 unit/L (03/06/18 4:59 AM) 17 unit/L (03/06/18 4:59 AM) ALT [0-65 unit/L] 48 unit/L *HI* (03/07/18 3:10 AM) 56 unit/L *HI* (03/06/18 4:59 AM) 57 unit/L *HI* (03/06/18 4:59 AM) AST [0-37 unit/L] 67 unit/L (03/07/18 3:10 AM) 68 unit/L (03/06/18 4:59 AM) 65 unit/L (03/06/18 4:59 AM) Alk Phos [39-136 unit/L] 0.4 mg/dL (03/07/18 3:10 AM) 0.5 mg/dL (03/06/18 4:59 AM) 0.5 mg/dL (03/06/18 4:59 AM) Bili Total [0.2-1.3 mg/dL] 0.1 mg/dL (03/06/18 4:59 AM) Bili Direct [0.0-0.3 mg/dL] 0.4 mg/dL (03/06/18 4:59 AM) Bili Indirect [0.0-1.0 mg/dL] 29.0 uMol/L (03/06/18 4:14 PM) Ammonia [<=45.0 uMol/L] 1Result Comment: The eGFR is calculated using [...] tiplied by the estimated BMI. CARDIAC ENZYMES 1 2 3 Most recent to oldest [Reference Range]: 65 unit/L (03/02/18 3:18 AM) 73 unit/L (03/01/18 2:40 AM) 136 unit/L (02/28/18 12:46 PM) Total CK [12-191 unit/L] 1.7 ng/mL (02/28/18 12:46 PM) CK MB [0.5-3.6 ng/mL] 1.2 (02/28/18 12:46 PM) CK MB Index [0.0-2.5] 0.02 ng/mL (03/02/18 3:18 AM) 0.04 ng/mL (03/01/18 2:40 AM) 0.03 ng/mL (02/28/18 3:20 PM) Troponin-I [0.00-0.40 ng/mL] 301 pg/mL *HI* (02/28/18 12:46 PM) BNP [<=100 pg/mL] ANEMIA STUDY 1 2 3 Most recent to oldest [Reference Range]: 22 ug/dl *LOW* (03/12/18 8:35 PM) Iron [30-160 ug/dl] 272 ng/mL *HI* (03/12/18 8:35 PM) Ferritin Lvl [5-204 ng/mL] 17 % (03/12/18 8:35 PM) % Satur Fe [12-57 %] 105 ug/dl *LOW* (03/12/18 8:35 PM) UIBC [110-370 ug/dl] 127 ug/dl *LOW* (03/12/18 8:35 PM) TIBC [228-428 ug/dl] URINE AND STOOL 1 2 3 Most recent to oldest [Reference Range]: Clear (03/04/18 2:48 PM) UA Turbidity [Clear] Ltyellow *NA* (03/04/18 2:48 PM) UA Color 6.0 (03/04/18 2:48 PM) UA pH [5.0-8.0] 1.009 (03/04/18 2:48 PM) UA Spec Grav [<=1.030] Negative mg/dL *NA* (03/04/18 2:48 PM) UA Glucose [Negative mg/dL] Negative (03/04/18 2:48 PM) UA Blood [Negative] Negative mg/dL *NA* (03/04/18 2:48 PM) UA Ketones [Negative mg/dL] 100 mg/dL *ABN* (03/04/18 2:48 PM) UA Protein [Negative mg/dL] <=1.0 mg/dL *NA* (03/04/18 2:48 PM) UA Urobilinogen [0.1-1.0 mg/dL] Negative *NA* (03/04/18 2:48 PM) UA Bili [Negative] Trace *ABN* (03/04/18 2:48 PM) UA Leuk Est [Negative] Negative (03/04/18 2:48 PM) UA Nitrite [Negative] 5 /HPF (03/04/18 2:48 PM) UA WBC [0-5 /HPF] 1 /HPF (03/04/18 2:48 PM) UA RBC [0-2 /HPF] Many /HPF *ABN* (03/04/18 2:48 PM) UA Bacteria [None Seen /HPF] Occasional /LPF *NA* (03/04/18 2:48 PM) UA Sq Epi [Few /LPF] Positive *ABN* (03/15/18 12:43 PM) Occult Bld Stl [Negative] IMMUNOLOGY 1 2 3 Most recent to oldest [Reference Range]: Negative *NA* (03/11/18 4:40 AM) Hep Bs Ag [Negative] 35.8 mIU/mL *HI* (03/11/18 4:40 AM) Hep Bs Ab [<=7.4 mIU/mL] Positive *NA* (03/11/18 4:40 AM) Hep B Core Ab [Negative] Positive *ABN* (03/11/18 4:40 AM) Hep C Ab HEMATOLOGY 1 2 3 Most recent to oldest [Reference Range]: 11.7 K/CMM *HI* (03/21/18 9:35 AM) 10.9 K/CMM *HI* (03/20/18 5:14 AM) 12.2 K/CMM *HI* (03/18/18 4:58 AM) WBC [3.7-10.4 K/CMM] 3.02 M/CMM *LOW* (03/21/18 9:35 AM) 2.54 M/CMM *LOW* (03/20/18 5:14 AM) 2.66 M/CMM *LOW* (03/18/18 4:58 AM) RBC [4.20-5.40 M/CMM] 8.8 g/dL *LOW* (03/21/18 9:35 AM) 7.5 g/dL *LOW* (03/20/18 5:14 AM) 7.8 g/dL *LOW* (03/18/18 4:58 AM) Hgb [12.0-16.0 g/dL] 26.5 % *LOW* (03/21/18 9:35 AM) 22.2 % *LOW* (03/20/18 5:14 AM) 23.4 % *LOW* (03/18/18 4:58 AM) Hct [36.0-48.0 %] 87.9 fL (03/21/18 9:35 AM) 87.5 fL (03/20/18 5:14 AM) 88.1 fL (03/18/18 4:58 AM) MCV [80.0-98.0 fL] 29.3 pg (03/21/18 9:35 AM) 29.4 pg (03/20/18 5:14 AM) 29.4 pg (03/18/18 4:58 AM) MCH [27.0-31.0 pg] 33.3 g/dL (03/21/18 9:35 AM) 33.7 g/dL (03/20/18 5:14 AM) 33.4 g/dL (03/18/18 4:58 AM) MCHC [32.0-36.0 g/dL] 16.0 % *HI* (03/21/18 9:35 AM) 16.1 % *HI* (03/20/18 5:14 AM) 15.7 % *HI* (03/18/18 4:58 AM) RDW [11.5-14.5 %] 9.7 fL (03/21/18 9:35 AM) 9.4 fL (03/20/18 5:14 AM) 9.4 fL (03/18/18 4:58 AM) MPV [7.4-10.4 fL] 144 K/CMM (03/21/18 9:35 AM) 153 K/CMM (03/20/18 5:14 AM) 146 K/CMM (03/18/18 4:58 AM) Platelet [133-450 K/CMM] 83.1 % *HI* (03/21/18 9:35 AM) 81.9 % *HI* (03/20/18 5:14 AM) 81.1 % *HI* (03/18/18 4:58 AM) Segs [45.0-75.0 %] 9.0 % (03/08/18 6:52 PM) Bands [0.0-11.0 %] 6.2 % *LOW* (03/21/18 9:35 AM) 6.1 % *LOW* (03/20/18 5:14 AM) 8.6 % *LOW* (03/18/18 4:58 AM) Lymphocytes [20.0-40.0 %] 9.0 % (03/21/18 9:35 AM) 10.3 % (03/20/18 5:14 AM) 8.6 % (03/18/18 4:58 AM) Monocytes [2.0-12.0 %] 1.3 % (03/21/18 9:35 AM) 1.4 % (03/20/18 5:14 AM) 1.4 % (03/18/18 4:58 AM) Eosinophils [0.0-4.0 %] 0.4 % (03/21/18 9:35 AM) 0.3 % (03/20/18 5:14 AM) 0.3 % (03/18/18 4:58 AM) Basophils [0.0-1.0 %] 9.7 K/CMM *HI* (03/21/18 9:35 AM) 8.9 K/CMM *HI* (03/20/18 5:14 AM) 9.9 K/CMM *HI* (03/18/18 4:58 AM) Segs-Bands # [1.5-8.1 K/CMM] 0.7 K/CMM *LOW* (03/21/18 9:35 AM) 0.7 K/CMM *LOW* (03/20/18 5:14 AM) 1.0 K/CMM (03/18/18 4:58 AM) Lymphocytes # [1.0-5.5 K/CMM] 1.1 K/CMM *HI* (03/21/18 9:35 AM) 1.1 K/CMM *HI* (03/20/18 5:14 AM) 1.0 K/CMM *HI* (03/18/18 4:58 AM) Monocytes # [0.0-0.8 K/CMM] 0.2 K/CMM (03/21/18 9:35 AM) 0.2 K/CMM (03/20/18 5:14 AM) 0.2 K/CMM (03/18/18 4:58 AM) Eosinophils # [0.0-0.5 K/CMM] 0.1 K/CMM (03/06/18 4:59 AM) 0.1 K/CMM (03/05/18 1:57 PM) Basophils # [0.0-0.2 K/CMM] 100 *NA* (03/08/18 6:52 PM) Tot Cell Ct Normal (03/08/18 6:52 PM) RBC Morph 1+ *ABN* (03/14/18 3:48 AM) Anisocyte [None Seen] Slight *NA* (03/14/18 3:48 AM) Baso Stipplin Normal (03/08/18 6:52 PM) Plt Morph Slight *NA* (03/14/18 3:48 AM) Large Plt 16.5 seconds *HI* (03/07/18 3:10 AM) 16.7 seconds *HI* (03/06/18 4:59 AM) 19.5 seconds *HI* (03/05/18 1:57 PM) PT [12.0-14.7 seconds] 1.32 *HI* (03/07/18 3:10 AM) 1.34 *HI* (03/06/18 4:59 AM) 1.64 *HI* (03/05/18 1:57 PM) INR [0.85-1.17] 34.5 seconds (03/07/18 3:10 AM) 36.3 seconds *HI* (03/06/18 4:59 AM) 37.7 seconds *HI* (03/05/18 1:57 PM) PTT [22.9-35.8 seconds] MOLECULAR DIAGNOSTIC 1 2 3 Most recent to oldest [Reference Range]: Negative (03/15/18 12:43 PM) C difficile DNA [Negative] Immunizations Given and Recorded Vaccine Date Status Refusal Reason pneumococcal 13-valent vaccine 01/16/17 Given influenza virus vaccine, inactivated 01/16/17 G iven pneumococcal 23-valent vaccine 02/18/16 Given Procedures Procedure Date Related Diagnosis Body Site Status Abdominal hysterectomy Completed CABG x 1 - Coronary artery bypass graft x 1 Compl eted Cholecystectomy1 Completed Cholecystotomy Completed Eye care Completed 83448 Social History Social History Type Response Substance Abuse Use: None. Alcohol Never Smoking Status Never smoker; Exposure to T obacco Smoke None; Cigarette Smoking Last 365 Days No; Reg Smoking Cessation Counseli ng No entered on: 03/21/18 Assessment and Plan Extracted from: Title: Discharge Summary * Author: Chucho Zhou Date: 03/21/18 Discharge Information Disposition: Inpatient rehab Condition: Stable Medications: See med reconciliation form Diet: Heart healthy Discharge Plan In the event of any worsening symptom patient was to come back to the ED for further evaluation Discharge summary to greater than 35 minutes Extracted from: Title: Clinical Document Author: Alexi [...] ASSESSMENT 1. Chronic kidney disease, stage IV. ba seline 1.99 2. Contrast nephropathy, resolved. 3. ATN post surgery not resolving now o n dialysis 4. Coronary artery disease requiring xavier rgery. s/p cabg 5. Hypertension. 6. Type 2 diabetes mellitus 7. volume overload PLAN & TREATMENT discontinued warner dialysis in am rechek labs in am guaiac positive monitor h/h needs placement tunneled cathter transfusion ordered OBJECTIVE VitalsTmp(F)Tmp(C)[id number] 03/20 20:980524.84vfdd015/63---[id number]-- ---- 03/20 19:59 1298-- ---- 03/20 16:0098.637.07bmwo092/71---557712- ----- 03/20 12:924259.22wuwh773/62---[id number]-- ---- 03/20 08:05 1292-- ---- 24 Hr Tmax: 99F (37.22c) at 03/20 20:00V ital Signs are the last 5 in the past 48 hours. 24 Hr Tmin: 97.4F (36.33c) at 03/20 00: 00Weights are the last 5 in 60 days, plus initial. DateWt(kg)Wt(lb)Ht(cm)Ht(in)MethodBMIBSA 03/20 61.70 135.74Measured 03/19 57.80 127.16Measured 03/18 61.59 135.50Measured 03/17 61.82 136.00Measured 03/16 62.78 138.12Measured 02/28 (initial) 58.18 128.00Measured 25. 11.57 52.40 60.00Stated 24 Hr Point of Care Glucoses 03/20 2046Glucose CAL876 H 03/20 1516Glucose [id number] H 03/20 1112Glucose KYZ704 H Most Recent Scores: 03/20/18Pain Intensity NRS (0-10)0 03/20/18Braden Score16 03/20/18Glasgow Coma Score15 03/20/18Johns Duran Fall Score10 03/01/18NIH Stroke Score0 Lines, Tubes, and Drains: 03/19/2018 19:02 Central Lines: Subclavi an, right Dialysis tunneled 03/16/2018 08:18 Peripheral Lines: Other : Trialysis Catheter Left Other: Triple lumen 03/01/2018 12:00 Peripheral Lines: Forea rm Right 22 gauge Over the needle catheter Surgical Procedures: 03/19/18 13:26TUNNLED DIALYSIS CATHETER PLACEMENT [id number] Surgeon: Mario Abdi MD (Service: CVT) 03/05/18 09:27CORONARY ARTERY BYPASS GRA FT; LEFT LEG EVH;STARK-LAD, SVG-OM, SVG- DIAG, SVG-PDA [id number] Surgeon: Gabriele Chaney MD (Service: CVT) Input/Output RecordInOutBal 02/2324hr Tot 790 0 790 4hr Tot 884 [id number] Scheduled Meds (8):aspirin (aspirin 81 mg tablet, enteric coated), atorvastatin, clopidogrel (Plavix), epoetin kathy (Epogen (ESRD)), escitalopram, metoprolol (Lopressor), non-formulary (please give midodrine before dialysis on dialysis days), pantoprazole (Protonix) Unscheduled Meds: None PRN Meds (22):Dextrose 50% in Water IV (Dextrose 50% Syringe), [...] Labs (Last four charted values) WBC H 10.9(MARCH 20)H 12.2(MARCH 18)H 10.6(MARCH 16)H 15.6(MARCH 15) Hgb L 7.5(MARCH 20)L 7.8(MARCH 18)L 7.6(MARCH 16)L 8.2(MARCH 15) Hct L 22.2(MARCH 20)L 23.4(MARCH 18)L 22.6(MARCH 16)L 24.3(MARCH 15) Plt 153(MARCH 20)146(MARCH 18)L 117(MARCH 16)157(MARCH 15) Na 137(MARCH 20)L 133(MARCH 19)136(MARCH 18)136(MARCH 16) K 3.7(MARCH 20)4.9(MARCH 19)4.3(MARCH 18)3.6(MARCH 16) CO2 26(MARCH 20)L 20(MARCH 19)26(MARCH 18)28(MARCH 16) Cl 97(MARCH 20)100(MARCH 19)100(MARCH 18)100(MARCH 16) Cr H 3.23(MARCH 20)H 5.60(MARCH 19)H 4.28(MARCH 18)H 3.83(MARCH 16) BUN H 23(MARCH 20)H 47(MARCH 19)H 36(MARCH 18)H 38(MARCH 16) Glucose Random H 241(MARCH 20)H 171(MARCH 19)H 195(MARCH 18)H 208(MARCH 16) Mg 2.0(MARCH 20)2.1(MARCH 19)2.2(MARCH 18)2.4(MARCH 10) Phos H 6.1(MARCH 08)4.0(MARCH 05)3.9(MARCH 04)4.2(MARCH 03) Ca L 7.9(MARCH 20)8.6(MARCH 19)L 8.4(MARCH 18)8.5(MARCH 16) PT H 16.5(MARCH 07)H 16.7(MARCH 06)H 19.5(MARCH 05)H 21.4(MARCH 05) INR H 1.32(MARCH 07)H 1.34(MARCH 06)H 1.64(MARCH 05)H 1.84(MARCH 05) PTT 34.5(MARCH 07)H 36.3(MARCH 06)H 37.7(MARCH 05)H 39.0(MARCH 05) Troponin 0.02(MARCH 02)0.04(MARCH 01)0.03(FEBRUARY 28)0.04(FEBRUARY 28) CK MB 1.7(FEBRUARY 28) Total CK 65(MARCH 02)73(MARCH 01)136(FEBRUARY 28) Extracted from: Title: Clinical Document Author: Mario Abdi MD ate: 03/19/18 DATE OF : 1950 DATE OF OPERATION: 03/19/2018 PREOPERATIVE DIAGNOSIS: End-stage renal disease, need for hemodialysis access POSTOPERATIVE DIAGNOSIS: End-stage renal disease, need for hemodialysis access OPERATION: Ultrasound-guided right IJ access Right IJ tunnelled dialysis catheter placement (DuraFlo, Biomax) under flouroscopic guidance SURGEON: Dr. Mario Abdi. ASSISTING SURGEON: None ANESTHESIA: General INDICATIONS FOR PROCEDURE: Risks benefits [...] Monocryl. Sterile dressing was then placed. Extracted from: Title: General Admission H&P * Author: Chucho Zhou MD Date: 02/28/18 Impression and Plan 1. Unstable angina cardiology, thoracic surgery consulted, heparin drip, Nitropaste, aspirin, cardio protective meds 2. Stage IV CKD creatinine at baseline, nephrology consulted 3. Type 2 diabetes insulin sliding scale, Accu-Cheks, A1c 4. Anemia of CKD hemoglobin 8.9, monitor 5. Prophylaxis heparin drip 6. Fluid electrolytes nutrients heart healthy diet 7. PT/OT eval and treat 8. Disposition inpatient, cardiology, CV surgery and nephrology consulted
--- OUTSIDE RECORDS SUMMARY | 2020-06-17 13:08 | XMS REPORT | Summary of Care ---
Author Author [facility] Organization [facility] Address Unknown Phone Unavailable Encounter [facility] Elda(MALOU) [id number] Date(s): 04/03/19 - 04/04/19 [facility] [address] [place] [address]- [phone] Discharge Disposition: Residential Facility Attending Physician: Juancho Nagel MD Admitting Physician: Juancho Nagel MD Vital Signs 1 2 3 Most recent to oldest [Reference Range]: 152.4 cm (04/03/19 2:44 PM) Height 98.6 DegF (04/04/19 3:37 PM) 99.0 DegF (04/04/19 10:46 AM) 100.9 DegF *HI* (04/04/19 7:09 AM) Temperature Oral [96.4-99.1 DegF] 132/67 mmHg (04/04/19 3:37 PM) 125/73 mmHg (04/04/19 10:46 AM) 133/68 mmHg (04/04/19 7:09 AM) Blood Pressure [90-140/60-90 mmHg] 19 BRMIN (04/04/19 3:37 PM) 19 BRMIN (04/04/19 10:46 AM) 18 BRMIN (04/04/19 7:09 AM) Respiratory Rate [14-20 BRMIN] 73 bpm (04/04/19 3:37 PM) 78 bpm (04/04/19 10:46 AM) 73 bpm (04/04/19 7:09 AM) Peripheral Pulse Rate [60-100 bpm] 63.636 kg (04/03/19 2:44 PM) Weight 27.4 m2 (04/03/19 2:44 PM) Body Mass Index Problem List Condition [...] PO, Drug form: TAB, Q4H, Dosing Weight 63.636, kg, PRN Mayito n 1-3/Temp > 100.4 F, Start date: 04/03/19 19:12:00 CDT, Duration: 30 day, Stop date: 05/03/19 19:11:00 CDT Notes: Do not exceed 4 gm/day. (Same as: Tylenol) Start Date: 04/03/19 Stop Date: 04/04/19 Status: Discontinued aspirin 324 mg, Route: CHEW, Drug form: CHEWTAB, ONCE, Dosing Weight 63.636, kg, Priorit y: STAT, Start date: 04/03/19 14:54:00 CDT, Stop date: 04/03/19 14:54:00 CDT Start Date: 04/03/19 Stop Date: 04/03/19 Status: Completed Dextrose 50% Syringe 25 gm, 50 mL, Route: IVP, Drug Form: INJ, Dosing Weight 63.636, kg, PRN, PRN Blo od Glucose Results, Start date: 04/03/19 19:12:00 CDT, Duration: 30 day, Stop da te: 05/03/19 19:11:00 CDT Start Date: 04/03/19 Stop Date: 04/04/19 Status: Discontinued Dextrose 50% Syringe 12.5 gm, 25 mL, Route: IVP, Drug Form: INJ, Dosing Weight 63.636, kg, PRN, PRN B lood Glucose Results, Start date: 04/03/19 19:12:00 CDT, Duration: 30 day, Stop date: 05/03/19 19:11:00 CDT Start Date: 04/03/19 Stop Date: 04/04/19 Status: Discontinued docusate 100 mg, 1 cap, Route: PO, Drug form: CAP, BID, Dosing Weight 63.636, kg, Start d ate: 04/04/19 9:00:00 CDT, Duration: 30 day, Stop date: 05/03/19 17:00:00 CDT Notes: (Same as: Colace) (Do Not Crush) Start Date: 04/04/19 Stop Date: 04/04/19 Status: Discontinued gentamicin + Sodium Chloride 0.9% IV 100 mL 100 mg, 2.5 mL, Route: IV, ONCE, Dosing Weight 63.636, kg, Start date: 04/03/19 17:33:00 CDT, Stop date: 04/03/19 17:33:00 CDT Notes: TIME CRITICAL MEDICATION(Same as Garamycin) For adult patients only: Roun d to nearest 10 mg per Medical Staff approval Start Date: 04/03/19 Stop Date: 04/03/19 Status: Ordered glucagon 1 mg, Route: IM, Drug form: PDR/INJ, PRN, Dosing Weight 63.636, kg, PRN Blood Gl ucose Results, Start date: 04/03/19 19:12:00 CDT, Duration: 30 day, Stop date: 0 05/03/19 19:11:00 CDT Start Date: 04/03/19 Stop Date: 04/04/19 Status: Discontinued heparin 5,000 unit, Route: SUB-Q, Q8H, Dosing Weight 63.636, kg, Start date: 04/04/19 8: 00:00 CDT, Duration: 30 day, Stop date: 05/04/19 0:00:00 CDT Start Date: 04/04/19 Stop Date: 04/04/19 Status: Canceled ondansetron 4 mg, 2 mL, Route: IVP, Drug form: INJ, Q8H, Dosing Weight 63.636, kg, PRN Nause a & Vomiting, Start date: 04/03/19 19:12:00 CDT, Duration: 30 day, Stop date: 05/03/19 19:11:00 CDT Notes: (Same as: Zofran) MEDICATION WASTE Product Size: 4 mgProduct Was lorena: ___ mg Start Date: 04/03/19 Stop Date: 04/04/19 Status: Discontinued Saline Flush 0.9% 10 mL, Route: IVP, Drug Form: INJ, Dosing Weight 63.636, kg, PRN, PRN Line Flush , Start date: 04/03/19 14:54:00 CDT, Duration: 30 day, Stop date: 05/03/19 14:53 :00 CDT Notes: (Same as: BD Posiflush) Start Date: 04/03/19 Stop Date: 04/04/19 Status: Discontinued vancomycin + Sodium Chloride 0.9% IV 250 mL 1,000 mg, Route: IVPB, ONCE, Dosing Weight 63.636, kg, Priority: STAT, Start blake e: 04/03/19 17:31:00 CDT, Stop date: 04/03/19 17:31:00 CDT, ABX Indication: Eleonora jon Tract Infection Notes: TIME CRITICAL MEDICATION(Same As: Vancocin)Infusion rate< 1000 mg: infuse over 1 [id number] - 1500 mg: infuse over 1.5 [id number] - 2000 mg: infuse over 2 hours> 2001 mg: infuse over 2.5 hoursFor adult patients only: Round to nearest 250 mg per Medical Staff approval MEDICATION WASTE Product Size: 1000 mgProduct Wasted: ___ mg Start Date: 04/03/19 Stop Date: 04/03/19 Status: Completed Results Most recent to 1 oldest [Reference Range]: Neutrophils # 9.5 K/CMM [1.5-8.1 K/CMM] *HI* (04/03/19 2:56 PM) Lymphocytes # 2.0 K/CMM [1.0-5.5 K/CMM] (04/03/19 2:56 PM) Monocytes # [0.0-0.8 0.8 K/CMM K/CMM] (04/03/19 2:56 PM) Eosinophils # 0.2 K/CMM [0.0-0.5 K/CMM] (04/03/19 2:56 PM) Basophils # [0.0-0.2 0.1 K/CMM K/CMM] (04/03/19 2:56 PM) eGFR 6 mL/min/1.73m2 1 *NA* (04/03/19 2:56 PM) A/G Ratio [0.7-1.6] 0.5 *LOW* (04/03/19 2:56 PM) Albumin Lvl [3.5-5.0 3.0 g/dL g/dL] *LOW* (04/03/19 2:56 PM) Alk Phos [39-136 278 unit/L unit/L] *HI* (04/03/19 2:56 PM) ALT [0-65 unit/L] 6 unit/L (04/03/19 2:56 PM) AGAP [10.0-20.0 16.4 mEq/L mEq/L] (04/03/19 2:56 PM) AST [0-37 unit/L] 41 unit/L *HI* (04/03/19 2:56 PM) B/C Ratio [6-25] 6 (04/03/19 2:56 PM) Basophils [0.0-1.0 1.2 % %] *HI* (04/03/19 2:56 PM) BUN [7-22 mg/dL] 39 mg/dL *HI* (04/03/19 2:56 PM) Calcium Lvl 8.7 mg/dL [8.5-10.5 mg/dL] (04/03/19 2:56 PM) Total CK [12-191 69 unit/L unit/L] (04/03/19 2:56 PM) Chloride Lvl [95-109 99 mEq/L mEq/L] (04/03/19 2:56 PM) CO2 [24-32 mEq/L] 27 mEq/L (04/03/19 2:56 PM) Creatinine Lvl 6.76 mg/dL [0.50-1.40 mg/dL] *HI* (04/03/19 2:56 PM) Eosinophils [0.0-4.0 1.4 % %] (04/03/19 2:56 PM) Globulin [2.7-4.2 6.1 g/dL g/dL] *HI* (04/03/19 2:56 PM) Glucose Lvl [70-99 105 mg/dL mg/dL] *HI* (04/03/19 2:56 PM) Hep Bs Ag [Negative] Negative *NA* (04/03/19 7:10 PM) Hct [36.0-48.0 %] 38.9 % (04/03/19 2:56 PM) Hgb [12.0-16.0 g/dL] 12.4 g/dL (04/03/19 2:56 PM) INR [0.85-1.17] 1.07 (04/03/19 2:56 PM) Potassium Lvl 5.4 mEq/L [3.5-5.1 mEq/L] *HI* (04/03/19 2:56 PM) Lactic Acid Lvl 1.3 mMol/L [0.5-2.2 mMol/L] (04/03/19 6:35 PM) Lymphocytes 15.5 % [20.0-40.0 %] *LOW* (04/03/19 2:56 PM) MCH [27.0-31.0 pg] 30.4 pg (04/03/19 2:56 PM) MCHC [32.0-36.0 31.9 g/dL g/dL] *LOW* (04/03/19 2:56 PM) MCV [80.0-98.0 fL] 95.3 fL (04/03/19 2:56 PM) Monocytes [2.0-12.0 6.6 % %] (04/03/19 2:56 PM) MPV [7.4-10.4 fL] 9.3 fL (04/03/19 2:56 PM) Sodium Lvl [135-145 137 mEq/L mEq/L] (04/03/19 2:56 PM) Platelet [133-450 106 K/CMM K/CMM] *LOW* (04/03/19 2:56 PM) Segs [45.0-75.0 %] 75.3 % *HI* (04/03/19 2:56 PM) Total Protein 9.1 g/dL [6.4-8.4 g/dL] *HI* (04/03/19 2:56 PM) PT [12.0-14.7 13.7 seconds seconds] (04/03/19 2:56 PM) PTT [22.9-35.8 34.2 seconds seconds] (04/03/19 2:56 PM) RBC [4.20-5.40 4.08 M/CMM M/CMM] *LOW* (04/03/19 2:56 PM) RDW [11.5-14.5 %] 18.9 % *HI* (04/03/19 2:56 PM) Bili Total [0.2-1.3 0.5 mg/dL mg/dL] (04/03/19 2:56 PM) Troponin-I <0.02 ng/mL [0.00-0.40 ng/mL] (04/03/19 2:56 PM) UA Bacteria [None Occasional /HPF Seen /HPF] *NA* (04/03/19 8:02 PM) UA Bili [Negative] Negative *NA* (04/03/19 8:02 PM) UA Blood [Negative] Negative (04/03/19 8:02 PM) UA Color [Yellow] Yellow *NA* (04/03/19 8:02 PM) UA Glucose [Negative 50 mg/dL mg/dL] *ABN* (04/03/19 8:02 PM) UA Ketones [Negative Negative mg/dL mg/dL] *NA* (04/03/19 8:02 PM) UA Leuk Est Negative [Negative] (04/03/19 8:02 PM) UA Nitrite Negative [Negative] (04/03/19 8:02 PM) UA pH [5.0-8.0] 8.0 (04/03/19 8:02 PM) UA Protein [Negative 100 mg/dL mg/dL] *ABN* (04/03/19 8:02 PM) UA Spec Grav 1.013 [<=1.030] (04/03/19 8:02 PM) UA Sq Epi None Seen *NA* (04/03/19 8:02 PM) UA Turbidity [Clear] Clear (04/03/19 8:02 PM) UA Urobilinogen <=1.0 mg/dL [0.1-1.0 mg/dL] *NA* (04/03/19 8:02 PM) UA WBC [0-5 /HPF] 9 /HPF *HI* (04/03/19 8:02 PM) WBC [3.7-10.4 K/CMM] 12.6 K/CMM *HI* (04/03/19 2:56 PM) 1Result Comment: The eGFR is calculated [...] be mul tiplied by the estimated BMI. Immunizations Given and Recorded Vaccine Date Status Refusal Reason pneumococcal 13-valent vaccine 01/16/17 Given influenza virus vaccine, inactivated 01/16/17 G iven pneumococcal 23-valent vaccine 02/18/16 Given Procedures Procedure Date Related Diagnosis Body Site Status Abdominal hysterectomy Completed CABG x 1 - Coronary artery bypass graft x 1 Compl eted Cholecystectomy1 Completed Cholecystotomy Completed Eye care Completed [id number] Social History Social History Type Response Substance Abuse Use: None. Alcohol Never Smoking Status Unknown if ever smoked; Exp osure to Tobacco Smoke Unable to obtain; Cigarette Smoking Last 365 Days Unable to obtain; Reg Smoking Cessation Counseling No entered on: 04/03/19 Assessment and Plan Extracted from: Title: Clinical [...] ( weakness) SKIN: no rash, no bruises VitalsTmp(F)[id number] 04/03 18:[id number]--- 04/03 17:30----[id number]--- 04/03 17:[id number]/154421--- 04/03 16:30----[id number]--- 04/03 15:30----[id number]--- 24 Hr Tmax: 98.0F (36.67c) at 04/03 14:4 4Vital Signs are the last 5 in the [...] mg, 2 mL, IVP, Q8H, PRN: Nausea & Vomiting. sodium chloride: 10 mL, IVP, PRN, [...] Labs (Last four charted values) WBC H 12.6(APR 03) Hgb 12.4(APR 03) Hct 38.9(APR 03) Plt L 106(APR 03) Na 137(APR 03) K H 5.4(APR 03) CO2 27(APR 03) Cl 99(APR 03) Cr H 6.76(APR 03) BUN H 39(APR 03) Glucose Random H 105(APR 03) Ca 8.7(APR 03) PT 13.7(APR 03) INR 1.07(APR 03) PTT 34.2(APR 03) Troponin <0.02(APR 03) Total CK 69(APR 03) ASSESSMENT AND PLAN 1- ESRD HEMODIALYSIS PROCEDURE: seen on hemodialysis, see orders, tolerating current prescription. 2- anemia of chronic disease stable 3- confused ? infection, cxr and ct scan negative, cultures pending abx given reevaluate in am Extracted from: Title: General Admission H&P * Author: Juancho Nagel hnakant Date: 04/03/19 MD Impression and Plan Impression: Acute metabolic encephalopathy, unclear etiology End-stage renal disease on hemodialysis Anemia of chronic kidney disease Hypertension Diabetes mellitus Coronary artery disease status post CABG Recent staph bacteremia Plan: We will admit to medicine Activity as tolerated Fall precautions We will reconcile home medication available Closely monitor mental status Patient is undergoing hemodialysis today [place] [facility] already consulted by ER. We will get infectious disease evaluation. Patient was given vancomycin IV x1, gentamicin IV x1 along with hemodialysis. Blood cultures were sent from the ER. Prognosis guarded CODE STATUS full.
--- OUTSIDE RECORDS SUMMARY | 2020-06-17 13:08 | XMS REPORT | Summary of Care ---
Author Author [facility] Organization [facility] Address Unknown Phone Unavailable Encounter ISRAEL Schroeder(MALOU) [id number] Date(s): 07/28/18 - 08/06/18 [facility] [id number] [place] [address]- Encounter Diagnosis Unspecified fall, initial encounter (Final) - Orthostatic hypotension (Final) - 08/14/18 End stage renal disease (Final) - Chronic diastolic (congestive) heart failure (Final) - Hypertensive heart and chronic kidney disease with heart failure and with stage 5 chronic kidney disease, or end stage renal disease (Final) - Unspecified viral hepatitis C without hepatic coma (Final) - Unspecified Escherichia coli [E. coli] as the cause of diseases classified elsew here (Final) - Anemia in chronic kidney disease (Final) - Hypokalemia (Final) - Hyperlipidemia, unspecified (Final) - Type 2 diabetes mellitus with diabetic chronic kidney disease (Final) - Dementia in other diseases classified elsewhere without behavioral disturbance (Final) - Alzheimer's disease, unspecified (Final) - Atherosclerotic heart disease of [place] coronary artery without angina pectoris (Final) - Unspecified cirrhosis of liver (Final) - History of falling (Final) - Dependence on renal dialysis (Final) - longterm (current) use of insulin (Final) - Presence of aortocoronary bypass graft (Final) - 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 (Final) - Personal history of transient ischemic attack (TIA), and cerebral infarction wit hout residual deficits (Final) - Discharge Disposition: [facility] Care Facility Attending Physician: Angel Ley MD Admitting Physician: Angel Ley MD Vital Signs 1 2 3 Most recent to oldest [Reference Range]: 152.4 cm (07/29/18 12:39 AM) 152.4 cm (9/30/18 8:02 PM) Height 99.8 DegF *HI* (08/06/18 3:57 PM) 97.5 DegF (08/06/18 12:12 PM) 97.2 DegF (08/06/18 11:52 AM) Temperature Oral [96.4-99.1 DegF] 108/70 mmHg (08/06/18 3:57 PM) 121/73 mmHg (08/06/18 12:12 PM) 140/73 mmHg (08/06/18 7:52 AM) Blood Pressure [90-140/60-90 mmHg] 16 BRMIN (08/06/18 3:57 PM) 16 BRMIN (08/06/18 12:12 PM) 16 BRMIN (08/06/18 7:52 AM) Respiratory Rate [14-20 BRMIN] 91 bpm (08/06/18 3:57 PM) 89 bpm (08/06/18 12:12 PM) 84 bpm (08/06/18 7:52 AM) Peripheral Pulse Rate [60-100 bpm] 52.002 kg (07/30/18 4:50 PM) 58.182 kg (07/29/18 12:39 AM) Weight 25.05 m2 (07/29/18 12:39 AM) Body Mass Index Problem List Condition [...] PO, Drug form: TAB, Q4H, Dosing Weight 58.1, kg, PRN Pain 1-3/Temp > 100.4 F, Start date: 07/29/18 0:33:00 CDT, Duration: 30 day, Stop date: 08/28/18 0:32:00 CDT Notes: Do not exceed 4 gm/day. (Same as: Tylenol) Start Date: 07/29/18 Stop Date: 08/06/18 Status: Discontinued amLODIPine 10 mg, 2 tab, Route: PO, Drug form: TAB, Daily, Dosing Weight 58.182, kg, Start date: 07/29/18 9:00:00 CDT, Duration: 30 day, Stop date: 08/27/18 9:00:00 CDT Notes: (Same as: Norvasc) Start Date: 07/29/18 Stop Date: 07/31/18 Status: Discontinued aspirin 81 mg tablet, enteric coated 81 mg, 1 tab, Route: PO, Drug form: ECTAB, Q24H, Dosing Weight 58.182, kg, Start date: 07/29/18 6:00:00 CDT, Duration: 30 day, Stop date: 08/27/18 6:00:00 CDT Notes: Do not crush or chew.(Same As: Ecotrin) Start Date: 07/29/18 Stop Date: 08/06/18 Status: Discontinued atorvastatin 40 mg, 1 tab, Route: PO, Drug form: TAB, Bedtime, Dosing Weight 58.182, kg, Star t date: 07/29/18 21:00:00 CDT, Duration: 30 day, Stop date: 08/27/18 21:00:00 CD T Notes: (Same as: Lipitor) Start Date: 07/29/18 Stop Date: 08/06/18 Status: Discontinued clopidogrel 75 mg, 1 tab, Route: PO, Drug form: TAB, Daily, Dosing Weight 58.182, kg, Start date: 07/29/18 9:00:00 CDT, Duration: 30 day, Stop date: 08/27/18 9:00:00 CDT Notes: (Same As: Plavix) Start Date: 07/29/18 Stop Date: 08/06/18 Status: Discontinued Dextrose 50% Syringe 12.5 gm, 25 mL, Route: IVP, Drug Form: INJ, Dosing Weight 58.182, kg, PRN, PRN B lood Glucose Results, Start date: 07/29/18 5:55:00 CDT, Duration: 30 day, Stop d ate: 08/28/18 5:54:00 CDT Start Date: 07/29/18 Stop Date: 08/06/18 Status: Discontinued Dextrose 50% Syringe 25 gm, 50 mL, Route: IVP, Drug Form: INJ, Dosing Weight 58.182, kg, PRN, PRN Blo od Glucose Results, Start date: 07/29/18 5:55:00 CDT, Duration: 30 day, Stop blake e: 08/28/18 5:54:00 CDT Start Date: 07/29/18 Stop Date: 08/06/18 Status: Discontinued epoetin kathy 3,000 unit, 1 mL, Route: SUB-Q, Drug form: INJ, Q---Sa, Dosing Weight 58.182 , kg, Start date: 07/30/18 17:00:00 CDT, Duration: 30 day, Stop date: 08/27/18 1 7:00:00 CDT Notes: (Same as: Procrit) epoetin kathy 3000 unit/1 ml VL.For dialysis use onlyWA VANESSA: F/P - Red; E -Red MEDICATION WASTE Product Size: 3000 unitProduct Wasted: ___ unit Start Date: 07/30/18 Stop Date: 07/30/18 Status: Canceled Epogen 2,000 unit, 1 mL, Route: IVP, Drug form: INJ, Q---Sa, Dosing Weight 58.182, kg, Start date: 07/30/18 17:00:00 CDT, Duration: 30 day, Stop date: 08/27/18 17: 00:00 CDT Notes: (Same as: Procrit) epoetin kathy 2000 unit/1 ml VLFor dialysis use only (E pogen)WASTE: F/P - Red; E -Red MEDICATION WASTE Product Size: 2000 mgPr oduct Wasted: ___ mg Start Date: 07/30/18 Stop Date: 08/03/18 Status: Discontinued Epogen 2,000 unit, 1 mL, Route: IVP, Drug form: INJ, Q---Sa, Dosing Weight 58.182, kg, Start date: 08/03/18 17:00:00 CDT, Duration: 30 day, Stop date: 08/31/18 17: 00:00 CDT Notes: (Same as: Procrit) epoetin kathy 2000 unit/1 ml VLFor dialysis use only (E pogen)WASTE: F/P - Red; E -Red MEDICATION WASTE Product Size: 2000 mgPr oduct Wasted: ___ mg Start Date: 08/03/18 Stop Date: 08/06/18 Status: Discontinued escitalopram 10 mg, 1 tab, Route: PO, Drug form: TAB, Daily, Dosing Weight 58.182, kg, Start date: 07/29/18 9:00:00 CDT, Duration: 30 day, Stop date: 08/27/18 9:00:00 CDT Notes: (Same as: Lexapro) Start Date: 07/29/18 Stop Date: 08/06/18 Status: Discontinued fludrocortisone 0.1 mg, 1 tab, Route: PO, Drug form: TAB, Daily, Dosing Weight 52.002, kg, Start date: 08/02/18 12:40:00 CDT, Duration: 30 day, Stop date: 09/01/18 9:00:00 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 Start Date: 08/02/18 Stop Date: 08/06/18 Status: Discontinued furosemide 80 mg, 2 tab, Route: PO, Drug form: TAB, BID, Dosing Weight 58.182, kg, Start da te: 07/29/18 9:00:00 CDT, Duration: 30 day, Stop date: 08/27/18 17:00:00 CDT Notes: (Same as: Lasix) May cause GI upset. Give with food or milk. Start Date: 07/29/18 Stop Date: 08/06/18 Status: Discontinued glucagon 1 mg, Route: IM, Drug form: PDR/INJ, PRN, Dosing Weight 58.182, kg, PRN Blood Gl ucose Results, Start date: 07/29/18 5:55:00 CDT, Duration: 30 day, Stop date: 5:54:00 CDT Start Date: 07/29/18 Stop Date: 08/06/18 Status: Discontinued heparin 5,000 unit, 1 mL, Route: SUB-Q, Drug form: INJ, Q12H, Dosing Weight 58.182, kg, Start date: 07/29/18 9:00:00 CDT, Duration: 30 day, Stop date: 08/28/18 2:00:00 CDT Notes: porcine heparin Start Date: 07/29/18 Stop Date: 08/06/18 Status: Discontinued insulin lispro 1 unit, 0.01 mL, Route: SUB-Q, Drug form: SOLN, Bedtime, Dosing Weight 58.182, k g, PRN Blood Glucose Results, Start date: 07/29/18 5:55:00 CDT, Duration: 30 day , Stop date: 08/28/18 5:54:00 CDT Notes: (Same as: Humalog ) Roll in palms of hands gently; Do not shake `vigorou sly. "Single Patient Use Only " WASTE: F/P - Black; E - [facility] [employer] [address] able for 28 days at room temperature.Expires in days from Da te Start Date: 07/29/18 Stop Date: 08/06/18 Status: Discontinued insulin lispro 2 unit, 0.02 mL, Route: SUB-Q, Drug form: SOLN, Bedtime, Dosing Weight 58.182, k g, PRN Blood Glucose Results, Start date: 07/29/18 5:55:00 CDT, Duration: 30 day , Stop date: 08/28/18 5:54:00 CDT Notes: (Same as: Humalog ) Roll in palms of hands gently; Do not shake `vigorou sly. "Single Patient Use Only " WASTE: F/P - Black; E - [facility] [address] [address] able for 28 days at room temperature.Expires in days from Da te Start Date: 07/29/18 Stop Date: 08/06/18 Status: Discontinued insulin lispro 4 unit, 0.04 mL, Route: SUB-Q, Drug form: SOLN, Bedtime, Dosing Weight 58.182, k g, PRN Blood Glucose Results, Start date: 07/29/18 5:55:00 CDT, Duration: 30 day , Stop date: 08/28/18 5:54:00 CDT Notes: (Same as: Humalog ) Roll in palms of hands gently; Do not shake `vigorou sly. "Single Patient Use Only " WASTE: F/P - Black; E - [facility] [address] able for 28 days at room temperature.Expires in days from Da te Start Date: 07/29/18 Stop Date: 08/06/18 Status: Discontinued insulin lispro 3 unit, 0.03 mL, Route: SUB-Q, Drug form: SOLN, Bedtime, Dosing Weight 58.182, k g, PRN Blood Glucose Results, Start date: 07/29/18 5:55:00 CDT, Duration: 30 day , Stop date: 08/28/18 5:54:00 CDT Notes: (Same as: Humalog ) Roll in palms of hands gently; Do not shake `vigorou sly. "Single Patient Use Only " WASTE: F/P - Black; E - [facility] [address] able for 28 days at room temperature.Expires in days from Da te Start Date: 07/29/18 Stop Date: 08/06/18 Status: Discontinued insulin lispro 3 unit, 0.03 mL, Route: SUB-Q, Drug form: SOLN, TID-Before Meals, Dosing Weight 58.182, kg, PRN Blood Glucose Results, Start date: 07/29/18 5:55:00 CDT, Duratio n: 30 day, Stop date: 08/28/18 5:54:00 CDT Notes: (Same as: Humalog ) Roll in palms of hands gently; Do not shake `vigorou sly. "Single Patient Use Only " WASTE: F/P - Black; E - [facility] [address] able for 28 days at room temperature.Expires in days from Da te Start Date: 07/29/18 Stop Date: 08/06/18 Status: Discontinued insulin lispro 2 unit, 0.02 mL, Route: SUB-Q, Drug form: SOLN, TID-Before Meals, Dosing Weight 58.182, kg, PRN Blood Glucose Results, Start date: 07/29/18 5:55:00 CDT, Duratio n: 30 day, Stop date: 08/28/18 5:54:00 CDT Notes: (Same as: Humalog ) Roll in palms of hands gently; Do not shake `vigorou sly. "Single Patient Use Only " WASTE: F/P - Black; E - [facility] [address] able for 28 days at room temperature.Expires in days from Da te Start Date: 07/29/18 Stop Date: 08/06/18 Status: Discontinued insulin lispro 1 unit, 0.01 mL, Route: SUB-Q, Drug form: SOLN, TID-Before Meals, Dosing Weight 58.182, kg, PRN Blood Glucose Results, Start date: 07/29/18 5:55:00 CDT, Duratio n: 30 day, Stop date: 08/28/18 5:54:00 CDT Notes: (Same as: Humalog ) Roll in palms of hands gently; Do not shake `vigorou sly. "Single Patient Use Only " WASTE: F/P - Black; E - [facility] [address] able for 28 days at room temperature.Expires in days from Da te Start Date: 07/29/18 Stop Date: 08/06/18 Status: Discontinued insulin lispro 4 unit, 0.04 mL, Route: SUB-Q, Drug form: SOLN, TID-Before Meals, Dosing Weight 58.182, kg, PRN Blood Glucose Results, Start date: 07/29/18 5:55:00 CDT, Duratio n: 30 day, Stop date: 08/28/18 5:54:00 CDT Notes: (Same as: Humalog ) Roll in palms of hands gently; Do not shake `vigorou sly. "Single Patient Use Only " WASTE: F/P - Black; E - [facility] [address] able for 28 days at room temperature.Expires in days from Da te Start Date: 07/29/18 Stop Date: 08/06/18 Status: Discontinued insulin lispro 5 unit, 0.05 mL, Route: SUB-Q, Drug form: SOLN, TID-Before Meals, Dosing Weight 58.182, kg, PRN Blood Glucose Results, Start date: 07/29/18 5:55:00 CDT, Duratio n: 30 day, Stop date: 08/28/18 5:54:00 CDT Notes: (Same as: Humalog ) Roll in palms of hands gently; Do not shake `vigorou sly. "Single Patient Use Only " WASTE: F/P - Black; E - [facility] [address] able for 28 days at room temperature.Expires in days from Da te Start Date: 07/29/18 Stop Date: 08/06/18 Status: Discontinued metoprolol tartrate 25 mg, 1 tab, Route: PO, Drug form: TAB, Q12H, Dosing Weight 58.182, kg, Start d ate: 07/29/18 9:00:00 CDT, Duration: 30 day, Stop date: 08/27/18 21:00:00 CDT Notes: (Same as: Lopressor) Start Date: 07/29/18 Stop Date: 08/06/18 Status: Discontinued NS (Bolus) IV 500 mL, 500 ml/hr, Infuse Over: 1 hr, Route: IV, 500, Drug form: INJ, ONCE, Prio rity: STAT, Dosing Weight 58.1 kg, Start date: 07/28/18 21:02:00 CDT, Stop date: 07/28/18 21:02:00 CDT Start Date: 07/28/18 Stop Date: 07/28/18 Status: Completed Omnicef 300 mg oral capsule 300 mg = 1 cap, PO, Q48H, please take on HD days after HD treatment, X 14 day, # 7 cap, 0 Refill(s), Pharmacy: [facility] [id number] Start Date: 08/06/18 Stop Date: 08/20/18 Status: Completed ondansetron 4 mg, 2 mL, Route: IVP, Drug form: INJ, Q6H, Dosing Weight 58.1, kg, PRN Nausea & Vomiting, Start date: 07/29/18 0:33:00 CDT, Duration: 30 day, Stop date: 08/28/18 0:32:00 CDT Notes: (Same as: Rosanne) MEDICATION WASTE Product Size: 4 mgProduct Was lorena: ___ mg Start Date: 07/29/18 Stop Date: 08/06/18 Status: Discontinued pantoprazole 40 mg, 1 tab, Route: PO, Drug form: ECTAB, Daily, Dosing Weight 58.182, kg, Star t date: 07/29/18 9:00:00 CDT, Duration: 30 day, Stop date: 08/27/18 9:00:00 CDT Notes: Tablet should not be chewed or crushed.(Same as: Protonix) Start Date: 07/29/18 Stop Date: 08/06/18 Status: Discontinued pneumococcal 13-valent vaccine 0.5 mL, Route: IM, ONCALL, Start date: 07/29/18 0:45:39 CDT, Stop date: 08/28/18 0:40:39 CDT Start Date: 07/29/18 Stop Date: 07/29/18 Status: Canceled potassium chloride 40 mEq, 2 tab, Route: PO, Drug form: ERTAB, BID, Dosing Weight 58.182, kg, Total dose = 80 mEq, Start date: 07/29/18 9:00:00 CDT, Stop date: 08/27/18 17:00:00 C DT, Central Line Notes: (Same as: K-Dur 20)"Do Not Crush"For patients unable to swallow tablet, d issolve in one half glass of water. Allow about 2 minutes for the tablets to dis integrate. Stir before giving to prepare slurry and administer.Please exclude Pa tients with feeding tube less than 14 English (Dobhoff, J-tube etc) and pediat amadou and patients. With food and full glass of water Start Date: 07/29/18 Stop Date: 07/29/18 Status: Discontinued potassium chloride 40 mEq, 2 tab, Route: PO, Drug form: ERTAB, ONCE, Dosing Weight 52.002, kg, Prio rity: STAT, Start date: 08/03/18 14:09:00 CDT, Stop date: 08/03/18 14:09:00 CDT Notes: (Same as: K-Dur 20)"Do Not Crush"For patients unable to swallow tablet, d issolve in one half glass of water. Allow about 2 minutes for the tablets to dis integrate. Stir before giving to prepare slurry and administer.Please exclude Pa tients with feeding tube less than 14 English (Dobhoff, J-tube etc) and pediat amadou and patients. With food and full glass of water Start Date: 08/03/18 Stop Date: 08/03/18 Status: Completed potassium chloride 40 mEq, Route: PO, Drug form: ERTAB, ONCE, Dosing Weight 52.002, kg, Start date: 08/03/18 16:00:00 CDT, Stop date: 08/03/18 16:00:00 CDT Start Date: 08/03/18 Stop Date: 08/03/18 Status: Discontinued promethazine 25 mg, 1 tab, Route: PO, Drug form: TAB, BID, Dosing Weight 58.182, kg, Start da te: 07/29/18 9:00:00 CDT, Duration: 30 day, Stop date: 08/27/18 17:00:00 CDT Notes: (Same as: Phenergan) Start Date: 07/29/18 Stop Date: 08/06/18 Status: Discontinued promethazine 25 mg oral tablet 25 mg = 1 tab, PO, BID, 0 Refill(s) Start Date: 07/29/18 Status: Ordered Rocephin + sterile water 10 mL 1 gm, Route: IVP, [id number], Dosing Weight 52.002, kg, Start date: 07/31/18 12:00: 00 CDT, Duration: 30 day, Stop date: 08/29/18 12:00:00 CDT, ABX Indication: Urin arnoldo Tract Infection Notes: (Same As: Rocephin).Use with 100 mL NS and infuse over 30 min MEDICA TION WASTE Product Size: 1000 mgProduct Wasted: ___ mg Start Date: 07/31/18 Stop Date: 08/06/18 Status: Discontinued sulfaSALAzine 500 mg, 1 tab, Route: PO, Drug form: TAB, BID, Dosing Weight 58.182, kg, Start d ate: 07/29/18 9:00:00 CDT, Duration: 30 day, Stop date: 08/27/18 17:00:00 CDT Notes: (Same As: Azulfidine) Start Date: 07/29/18 Stop Date: 08/06/18 Status: Discontinued Results 1 2 3 Most recent to oldest [Reference Range]: 3.6 K/CMM (08/06/18 7:56 AM) 3.2 K/CMM (08/05/18 11:07 AM) 4.0 K/CMM (08/03/18 12:46 PM) Neutrophils # [1.5-8.1 K/CMM] 1.3 K/CMM (08/06/18 7:56 AM) 1.0 K/CMM (08/05/18 11:07 AM) 0.9 K/CMM *LOW* (08/03/18 12:46 PM) Lymphocytes # [1.0-5.5 K/CMM] 0.5 K/CMM (08/06/18 7:56 AM) 0.4 K/CMM (08/05/18 11:07 AM) 0.5 K/CMM (08/03/18 12:46 PM) Monocytes # [0.0-0.8 K/CMM] 0.3 K/CMM (08/06/18 7:56 AM) 0.2 K/CMM (08/05/18 11:07 AM) 0.3 K/CMM (08/03/18 12:46 PM) Eosinophils # [0.0-0.5 K/CMM] 0.1 K/CMM (07/29/18 6:14 AM) 0.1 K/CMM (07/28/18 8:14 PM) Basophils # [0.0-0.2 K/CMM] 18 mL/min/1.73m2 1 *NA* (08/06/18 7:56 AM) 17 mL/min/1.73m2 2 *NA* (08/06/18 6:10 AM) 16 mL/min/1.73m2 3 *NA* (08/05/18 11:07 AM) eGFR 0.5 *LOW* (07/28/18 8:14 PM) A/G Ratio [0.7-1.6] 3.1 g/dL *LOW* (07/28/18 8:14 PM) Albumin Lvl [3.5-5.0 g/dL] 195 unit/L *HI* (07/28/18 8:14 PM) Alk Phos [39-136 unit/L] 17 unit/L (07/28/18 8:14 PM) ALT [0-65 unit/L] 15.1 mEq/L (08/06/18 7:56 AM) 15.2 mEq/L (08/06/18 6:10 AM) 16.9 mEq/L (08/05/18 11:07 AM) AGAP [10.0-20.0 mEq/L] 39 unit/L *HI* (07/28/18 8:14 PM) AST [0-37 unit/L] 10 (07/28/18 8:14 PM) B/C Ratio [6-25] 0.4 % (08/06/18 7:56 AM) 0.4 % (08/05/18 11:07 AM) 0.4 % (08/03/18 12:46 PM) Basophils [0.0-1.0 %] 31 mg/dL *HI* (08/06/18 7:56 AM) 30 mg/dL *HI* (08/06/18 6:10 AM) 28 mg/dL *HI* (08/05/18 11:07 AM) BUN [7-22 mg/dL] 8.4 mg/dL *LOW* (08/06/18 7:56 AM) 8.6 mg/dL (08/06/18 6:10 AM) 9.1 mg/dL (08/05/18 11:07 AM) Calcium Lvl [8.5-10.5 mg/dL] 105 mEq/L (08/06/18 7:56 AM) 106 mEq/L (08/06/18 6:10 AM) 106 mEq/L (08/05/18 11:07 AM) Chloride Lvl [95-109 mEq/L] 27 mEq/L (08/06/18 7:56 AM) 25 mEq/L (08/06/18 6:10 AM) 25 mEq/L (08/05/18 11:07 AM) CO2 [24-32 mEq/L] 2.66 mg/dL *HI* (08/06/18 7:56 AM) 2.76 mg/dL *HI* (08/06/18 6:10 AM) 2.95 mg/dL *HI* (08/05/18 11:07 AM) Creatinine Lvl [0.50-1.40 mg/dL] 5.4 % *HI* (08/06/18 7:56 AM) 4.6 % *HI* (08/05/18 11:07 AM) 4.7 % *HI* (08/03/18 12:46 PM) Eosinophils [0.0-4.0 %] 5.9 g/dL *HI* (07/28/18 8:14 PM) Globulin [2.7-4.2 g/dL] 142 mg/dL *HI* (08/06/18 7:56 AM) 140 mg/dL *HI* (08/06/18 6:10 AM) 207 mg/dL *HI* (08/05/18 11:07 AM) Glucose Lvl [70-99 mg/dL] Negative *NA* (07/30/18 5:30 AM) Hep Bs Ag [Negative] 31.0 % *LOW* (08/06/18 7:56 AM) 32.1 % *LOW* (08/06/18 6:10 AM) 32.1 % *LOW* (08/05/18 11:07 AM) Hct [36.0-48.0 %] 10.4 g/dL *LOW* (08/06/18 7:56 AM) 10.6 g/dL *LOW* (08/06/18 6:10 AM) 10.7 g/dL *LOW* (08/05/18 11:07 AM) Hgb [12.0-16.0 g/dL] 1.01 (07/28/18 8:14 PM) INR [0.85-1.17] 4.1 mEq/L (08/06/18 7:56 AM) 4.2 mEq/L (08/06/18 6:10 AM) 4.9 mEq/L (08/05/18 11:07 AM) Potassium Lvl [3.5-5.1 mEq/L] 22.8 % (08/06/18 7:56 AM) 21.2 % (08/05/18 11:07 AM) 16.1 % *LOW* (08/03/18 12:46 PM) Lymphocytes [20.0-40.0 %] 31.6 pg *HI* (08/06/18 7:56 AM) 30.9 pg (08/06/18 6:10 AM) 31.2 pg *HI* (08/05/18 11:07 AM) MCH [27.0-31.0 pg] 33.7 g/dL (08/06/18 7:56 AM) 33.0 g/dL (08/06/18 6:10 AM) 33.2 g/dL (08/05/18 11:07 AM) MCHC [32.0-36.0 g/dL] 93.6 fL (08/06/18 7:56 AM) 93.6 fL (08/06/18 6:10 AM) 93.7 fL (08/05/18 11:07 AM) MCV [80.0-98.0 fL] 2.2 mg/dL (08/05/18 11:07 AM) Magnesium Lvl [1.8-2.4 mg/dL] 8.6 % (08/06/18 7:56 AM) 8.9 % (08/05/18 11:07 AM) 8.4 % (08/03/18 12:46 PM) Monocytes [2.0-12.0 %] 8.3 fL (08/06/18 7:56 AM) 8.1 fL (08/06/18 6:10 AM) 8.3 fL (08/05/18 11:07 AM) MPV [7.4-10.4 fL] 143 mEq/L (08/06/18 7:56 AM) 142 mEq/L (08/06/18 6:10 AM) 143 mEq/L (08/05/18 11:07 AM) Sodium Lvl [135-145 mEq/L] 181 K/CMM (08/06/18 7:56 AM) 187 K/CMM (08/06/18 6:10 AM) 192 K/CMM (08/05/18 11:07 AM) Platelet [133-450 K/CMM] 62.8 % (08/06/18 7:56 AM) 64.9 % (08/05/18 11:07 AM) 70.4 % (08/03/18 12:46 PM) Segs [45.0-75.0 %] 9.0 g/dL *HI* (07/28/18 8:14 PM) Total Protein [6.4-8.4 g/dL] 13.3 seconds (07/28/18 8:14 PM) PT [12.0-14.7 seconds] 28.1 seconds (07/28/18 8:14 PM) PTT [22.9-35.8 seconds] 3.31 M/CMM *LOW* (08/06/18 7:56 AM) 3.43 M/CMM *LOW* (08/06/18 6:10 AM) 3.43 M/CMM *LOW* (08/05/18 11:07 AM) RBC [4.20-5.40 M/CMM] 16.2 % *HI* (08/06/18 7:56 AM) 16.4 % *HI* (08/06/18 6:10 AM) 15.9 % *HI* (08/05/18 11:07 AM) RDW [11.5-14.5 %] 0.5 mg/dL (07/28/18 8:14 PM) Bili Total [0.2-1.3 mg/dL] 0.03 ng/mL (07/28/18 8:14 PM) Troponin-I [0.00-0.40 ng/mL] Many /HPF *ABN* (07/30/18 3:50 AM) UA Bacteria [None Seen /HPF] Negative *NA* (07/30/18 3:50 AM) UA Bili [Negative] Small *ABN* (07/30/18 3:50 AM) UA Blood [Negative] Renate *NA* (07/30/18 3:50 AM) UA Color Negative mg/dL *NA* (07/30/18 3:50 AM) UA Glucose [Negative mg/dL] 9 /LPF *HI* (07/30/18 3:50 AM) UA Hyal Cast [0-2 /LPF] Negative mg/dL *NA* (07/30/18 3:50 AM) UA Ketones [Negative mg/dL] Large *ABN* (07/30/18 3:50 AM) UA Leuk Est [Negative] Few /LPF *NA* (07/30/18 3:50 AM) UA Mucus [None Seen /LPF] Negative (07/30/18 3:50 AM) UA Nitrite [Negative] 5.0 (07/30/18 3:50 AM) UA pH [5.0-8.0] 100 mg/dL *ABN* (07/30/18 3:50 AM) UA Protein [Negative mg/dL] 2 /HPF (07/30/18 3:50 AM) UA RBC [0-2 /HPF] 1.014 (07/30/18 3:50 AM) UA Spec Grav [<=1.030] Moderate /LPF *ABN* (07/30/18 3:50 AM) UA Sq Epi [Few /LPF] Marked *ABN* (07/30/18 3:50 AM) UA Turbidity [Clear] <=1.0 mg/dL *NA* (07/30/18 3:50 AM) UA Urobilinogen [0.1-1.0 mg/dL] 106 /HPF *HI* (07/30/18 3:50 AM) UA WBC [0-5 /HPF] 5.7 K/CMM (08/06/18 7:56 AM) 6.3 K/CMM (08/06/18 6:10 AM) 4.9 K/CMM (08/05/18 11:07 AM) WBC [3.7-10.4 K/CMM] 1Result Comment: The eGFR is calculated using [...] SITE: SOURCE: Urine, Clean Catch COLLECTED DATE/TIME: 07/30/18 3:50 AM FINAL REPORT 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 Escherichia coli 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 Skin Cheri ORGANISM:Escherichia coli Immunizations Given and Recorded Vaccine Date Status Refusal Reason pneumococcal 13-valent vaccine 01/16/17 Given influenza virus vaccine, inactivated 01/16/17 G iven pneumococcal 23-valent vaccine 02/18/16 Given Procedures Procedure Date Related Diagnosis Body Site Status Abdominal hysterectomy Completed CABG x 1 - Coronary artery bypass graft x 1 Compl eted Cholecystectomy1 Completed Cholecystotomy Completed Eye care Completed 48018 Social History Social History Type Response Substance Abuse Use: None. Alcohol Never Smoking Status Never smoker; Exposure to T obacco Smoke None; Cigarette Smoking Last 365 Days No; Reg Smoking Cessation Counseli ng No entered on: 11/01/18 Assessment and Plan Extracted from: Title: Clinical [...] Hepatitis C, no acute issues. . PLAN & TREATMENT dialysis per schedule no new changes awaiting placement OBJECTIVE VitalsTmp(F)Tmp(C)HuoabPDHOPCalmwTVDpF5OOP2KCWT4 08/06 15:5799.837.40gxpg028/70---414790- ----- 08/06 12:1297.536.07artu248/73---731271- ----- 08/06 11:5297.236.22oral ------ 08/06 07:5297.836.10ckzq238/73---8416--- ------ 08/06 07:2598.536.26wmdt025/73---440935- ----- 24 Hr Tmax: 99.8F (37.67c) at 08/06 15:5 7Vital Signs are the last 5 in the past 48 hours. 24 Hr Tmin: 97.2F (36.22c) at 08/06 11: 52Weights are the last 5 in 60 days, plus initial. DateWt(kg)Wt(lb)Ht(cm)Ht(in)MethodBMIBSA 07/30 52.00 114.40Measured 07/29 58.18 128.45840.40 60.00Est/Sta 25 .11.57 52.40 60.00 07/29 (initial) 58.18 128.00Estimated 25 .11.57 .40 60.00Stated 24 Hr Point of Care Glucoses 08/06 1556Glucose SMB226 H 08/06 1248Glucose GFQ453 H 08/06 0631Glucose ARQ536 H 08/06 0351Glucose HAH188 H 08/05 2046Glucose VLV329 H Most Recent Scores: 08/06/18Pain Intensity NRS (0-10)0 08/06/18Glasgow Coma Score15 08/06/18Johns Duran Fall Score13 08/06/18Braden Score19 Lines, Tubes, and Drains: 08/02/2018 13:50 Peripheral Lines: Forea rm Right 22 gauge Over the needle catheter 07/30/2018 07:30 Central Lines: Subclavi an, right Dialysis tunneled (no surgical procedures documented) Input/Output RecordInOutBal 07/924hr Tot 11 800 -789 07/824hr Tot 730 0 730 Scheduled Meds (13):aspirin [...] None Labs (Last four charted values) WBC 5.7(JUL 09)6.3(JUL 09)4.9(JUL 08)5.7(JUL 06) Hgb L 10.4(JUL 09)L 10.6(OCT 09)L 10.7(OCT 08)L 10.0(OCT 06) Hct L 31.0(JUL 09)L 32.1(JUL 09)L 32.1(JUL 08)L 30.0(OCT 06) Plt 181(JUL 09)187(JUL 09)192(JUL 08)168(JUL 06) Na 143(AUG 06)142(JUL 09)143(JUL 08)141(JUL 07) K 4.1(AUG 06)4.2(AUG 06)4.9(JUL 08)4.2(AUG 04) CO2 27(AUG 06)25(AUG 06)25(AUG 05)25(AUG 04) Cl 105(AUG 06)106(AUG 06)106(AUG 05)105(AUG 04) Cr H 2.66(AUG 06)H 2.76(AUG 06)H 2.95(AUG 05)H 2.29(AUG 04) BUN H 31(AUG 06)H 30(AUG 06)H 28(JUL 08)15(AUG 04) Glucose Random H 142(AUG 06)H 140(AUG 06)H 207(AUG 05)H 145(AUG 04) Mg 2.2(JUL 08) Ca L 8.4(JUL 09)8.6(JUL 09)9.1(JUL 08)8.5(AUG 04) PT 13.3(JUL 28) INR 1.01(JUL 28) PTT 28.1(JUL 28) Troponin 0.03(JUL 28) Extracted from: Title: Discharge Summary * Author: Chucho Zhou Date: 08/06/18 Results Review General results Labs (Last four charted values) WBC 5.7(JUL 09)6.3(JUL 09)4.9(JUL 08)5.7(OCT 06) Hgb L 10.4(JUL 09)L 10.6(OCT 09)L 10.7(OCT 08)L 10.0(OCT 06) Hct L 31.0(OCT 09)L 32.1(OCT 09)L 32.1(OCT 08)L 30.0(OCT 06) Plt 181(AUG 06)187(JUL 09)192(JUL 08)168(AUG 03) Na 143(AUG 06)142(AUG 06)143(AUG 05)141(AUG 04) K 4.1(AUG 06)4.2(AUG 06)4.9(AUG 05)4.2(AUG 04) CO2 27(AUG 06)25(AUG 06)25(AUG 05)25(AUG 04) Cl 105(AUG 06)106(AUG 06)106(AUG 05)105(AUG 04) Cr H 2.66(AUG 06)H 2.76(AUG 06)H 2.95(AUG 05)H 2.29(AUG 04) BUN H 31(AUG 06)H 30(AUG 06)H 28(AUG 05)15(AUG 04) Glucose Random H 142(AUG 06)H 140(AUG 06)H 207(AUG 05)H 145(AUG 04) Mg 2.2(AUG 05) Ca L 8.4(AUG 06)8.6(AUG 06)9.1(AUG 05)8.5(AUG 04) PT 13.3(JUL 28) INR 1.01(JUL 28) PTT 28.1(JUL 28) Troponin 0.03(JUL 28) Final discharge diagnoses: 1. Syncope secondary to generalized wea kness 2. Medically debilitated 3. Hypertension 4. ESRD on HD 5. Status post four-vessel CABG 6. Type 2 diabetes Consultants: Nephrology, cardiology, hematology Discharge Information Disposition to [facility] facility Condition stable Medications: See med reconciliation form Diet: Heart healthy Physical Examination VS/Measurements Vital Signs (last 24 hrs) Last Charted Temp OralH 99.8DegF (AUG 06 15:57) Heart Rate Linpeavkud35 bpm (AUG 06 15:57) Resp Rate 16 BRMIN (AUG 06:57) ENW306 mmHg (AUG 06 15:57) DBP70 mmHg (AUG 06 15:57) LkC950 % (AUG 06:57) General: NAD, alert and oriented x3 HEENT: [...] no edema, cyanosis or clubbing : no warner 2D echo: Conclusions 1) The left ventricular [...] was consulted. Patient received dialysis by the paddle dyeing machine operator while here in the hospital. In relation to her syncope carotid ultrasound found to be negative and 2D echo was found to be normal. Cardiology was consulted. It was felt that the patient's likely underlying weakness is due to generalized weakness requiring [facility] facility for further rehabilitation. While here the [...] summary to greater than 35 minutes Addendum Final discharge diagnoses: by Abelardo E. coli Chucho patient was on IV antibioti cs, will discharge on oral on Omnice[employer] Jamshid DELEON on 08/06/2018 17:17 Extracted from: Title: HemOnc Author: Timo Mac MD Date: 08/05/18 Impression and Plan 1. Anemia: Normocytic normochromic. Will get baseline workup and continue to monitor. 2. ESRD: On HD. 3.Orthostatic hypotension: on Florinef. 4. Disp: Plan is to discharge to SNF. Please call with questions.
--- OUTSIDE RECORDS SUMMARY | 2020-06-17 13:08 | XMS REPORT | Summary of Care ---
Author Author [facility] Organization [facility] Address Unknown Phone Unavailable Encounter HQ Monica_[email or web address](FIN) [id number] Date(s): 03/21/18 - 04/01/18 [facility] [address] [place] [address]- [phone] Encounter Diagnosis Other malaise (Final) - Discharge Disposition: Home or Self Care Attending Physician: Sammy Carrera MD Admitting Physician: Sammy Carrera MD Vital Signs 1 2 3 Most recent to oldest [Reference Range]: 152.4 cm (03/21/18 3:32 PM) Height 98.2 DegF (04/01/18 12:00 PM) 98.2 DegF (04/01/18 7:30 AM) 98.7 DegF (03/31/18 8:10 PM) Temperature Oral [96.4-99.1 DegF] 162/72 mmHg *HI* (04/01/18 12:00 PM) 148/66 mmHg *HI* (03/31/18 8:10 PM) Blood Pressure [90-140/60-90 mmHg] 173 mmHg *HI* (04/01/18 7:30 AM) Systolic Blood Pressure [90-140 mmHg] 73 mmHg (04/01/18 7:30 AM) Diastolic Blood Pressure [60-90 mmHg] 16 BRMIN (04/01/18 12:00 PM) 16 BRMIN (04/01/18 7:30 AM) 18 BRMIN (03/31/18 8:10 PM) Respiratory Rate [14-20 BRMIN] 74 bpm (04/01/18 12:00 PM) 75 bpm (04/01/18 7:30 AM) 81 bpm (03/31/18 8:10 PM) Peripheral Pulse Rate [60-100 bpm] 57.017 kg (03/25/18 9:38 AM) 56.818 kg (03/23/18 3:41 PM) 56.818 kg (03/21/18 3:32 PM) Weight 24.46 m2 (03/21/18 3:32 PM) Body Mass Index Problem List Condition [...] Drug form: M ISC, Route: MISC, Daily, 03/22/18 6:00:00 CDT, Duration: 30 day, Stop date: 03/30 01/13 6:00:00 CDT Start Date: 03/22/18 Stop Date: 04/01/18 Status: Discontinued amLODIPine 10 mg, 2 tab, Route: PO, Drug form: TAB, Daily, Dosing Weight 57.017, kg, Start date: 04/01/18 9:00:00 CDT, Stop date: 04/30/18 9:00:00 CDT Notes: (Same as: Fritzc) Start Date: 04/01/18 Stop Date: 04/01/18 Status: Discontinued amLODIPine 10 mg oral tablet 10 mg = 1 tab, PO, Daily, # 30 tab, 0 Refill(s) Start Date: 04/01/18 Status: Ordered aspirin 81 mg tablet, enteric coated 81 mg = 1 tab, PO, Daily, # 30 tab, 0 Refill(s) Start Date: 04/01/18 Stop Date: 05/01/18 Status: Ordered aspirin 81 mg tablet, enteric coated 81 mg, 1 tab, Route: PO, Drug form: ECTAB, Daily, Dosing Weight 58.182, kg, Star t date: 03/22/18 9:00:00 CDT, Duration: 30 day, Stop date: 04/20/18 9:00:00 CDT Notes: Do not crush or chew.(Same As: Ecotrin) Start Date: 03/22/18 Stop Date: 04/01/18 Status: Discontinued atorvastatin 40 mg oral tablet 40 mg = 1 tab, PO, Bedtime, # 30 tab, 0 Refill(s) Start Date: 04/01/18 Stop Date: 05/01/18 Status: Ordered clopidogrel 75 mg oral tablet 75 mg = 1 tab, PO, Daily, # 30 tab, 0 Refill(s) Start Date: 04/01/18 Stop Date: 05/01/18 Status: Ordered Compression Stockings 1 ea, Route: TOP, Dosing Weight 61.7, kg, Daily, Start date: 03/22/18 9:00:00 CD T Start Date: 03/22/18 Stop Date: 04/01/18 Status: Discontinued Dextrose 50% Syringe 25 gm, 50 mL, Route: IVP, Drug Form: INJ, Dosing Weight 68.6, kg, PRN, PRN Blood Glucose Results, Start date: 03/21/18 16:09:00 CDT, Duration: 30 day, Stop date: 04/20/18 16:08:00 CDT Start Date: 03/21/18 Stop Date: 04/01/18 Status: Discontinued Dextrose 50% Syringe 12.5 gm, 25 mL, Route: IVP, Drug Form: INJ, Dosing Weight 68.6, kg, PRN, PRN Blo od Glucose Results, Start date: 03/21/18 16:09:00 CDT, Duration: 30 day, Stop da te: 04/20/18 16:08:00 CDT Start Date: 03/21/18 Stop Date: 04/01/18 Status: Discontinued Epogen (ESRD) 10,000 unit, 1 mL, Route: IV, Drug form: INJ, , Dosing Weight 68.6, kg , Start date: 03/23/18 17:00:00 CDT, Duration: 30 day, Stop date: 04/20/18 17:00 :00 CDT Notes: (Same as: Procrit) epoetin kathy 79098 unit/1 ml VL.For dialysis use only. (Procrit)WASTE: F/P - Red; E -Red MEDICATION WASTE Product Size: 96321 unitProduct Wasted: ___ unit Start Date: 03/23/18 Stop Date: 04/01/18 Status: Discontinued escitalopram 10 mg, Route: PO, Drug form: TAB, Daily, Dosing Weight 56.818, kg, Start date: 0 03/22/18 9:00:00 CDT, Duration: 30 day, Stop date: 04/20/18 9:00:00 CDT Start Date: 03/22/18 Stop Date: 03/21/18 Status: Deleted escitalopram 10 mg oral tablet 10 mg = 1 tab, PO, Daily, # 30 tab, 0 Refill(s) Start Date: 04/01/18 Stop Date: 05/01/18 Status: Ordered glucagon 1 mg, Route: IM, Drug form: PDR/INJ, PRN, Dosing Weight 68.6, kg, PRN Blood Gluc ose Results, Start date: 03/21/18 16:09:00 CDT, Duration: 30 day, Stop date: 16:08:00 CDT Start Date: 03/21/18 Stop Date: 04/01/18 Status: Discontinued heparin 5,000 unit, 1 mL, Route: SUB-Q, Drug form: INJ, Q12H, Dosing Weight 57.017, kg, Start date: 03/27/18 21:00:00 CDT, Duration: 30 day, Stop date: 04/26/18 9:00:00 CDT Notes: porcine heparin Start Date: 03/27/18 Stop Date: 04/01/18 Status: Discontinued Humalog 8 unit, 0.08 mL, Route: SUB-Q, Drug form: SOLN, TID-Before Meals, Dosing Weight 68.6, kg, PRN Blood Glucose Results, Start date: 03/21/18 16:12:00 CDT, Duration : 30 day, Stop date: 04/20/18 16:11:00 CDT Notes: (Same as: Humalog ) Roll in palms of hands gently; Do not shake `vigorou sly. "Single Patient Use Only " WASTE: F/P - Black; E - [facility] [address] able for 28 days at room temperature.Expires in days from Da te Start Date: 03/21/18 Stop Date: 04/01/18 Status: Discontinued Humalog 6 unit, 0.06 mL, Route: SUB-Q, Drug form: SOLN, TID-Before Meals, Dosing Weight 68.6, kg, PRN Blood Glucose Results, Start date: 03/21/18 16:11:00 CDT, Duration : 30 day, Stop date: 04/20/18 16:10:00 CDT Notes: (Same as: Humalog ) Roll in palms of hands gently; Do not shake `vigorou sly. "Single Patient Use Only " WASTE: F/P - Black; E - [facility] [address] able for 28 days at room temperature.Expires in days from Da te Start Date: 03/21/18 Stop Date: 04/01/18 Status: Discontinued Humalog 4 unit, 0.04 mL, Route: SUB-Q, Drug form: SOLN, TID-Before Meals, Dosing Weight 68.6, kg, PRN Blood Glucose Results, Start date: 03/21/18 16:11:00 CDT, Duration : 30 day, Stop date: 04/20/18 16:10:00 CDT Notes: (Same as: Humalog ) Roll in palms of hands gently; Do not shake `vigorou sly. "Single Patient Use Only " WASTE: F/P - Black; E - [facility] [address] able for 28 days at room temperature.Expires in days from Da te Start Date: 03/21/18 Stop Date: 04/01/18 Status: Discontinued Humalog 2 unit, 0.02 mL, Route: SUB-Q, Drug form: SOLN, TID-Before Meals, Dosing Weight 68.6, kg, PRN Blood Glucose Results, Start date: 03/21/18 16:11:00 CDT, Duration : 30 day, Stop date: 04/20/18 16:10:00 CDT Notes: (Same as: Humalog ) Roll in palms of hands gently; Do not shake `vigorou sly. "Single Patient Use Only " WASTE: F/P - Black; E - [facility] [address] able for 28 days at room temperature.Expires in days from Da te Start Date: 03/21/18 Stop Date: 04/01/18 Status: Discontinued Humalog 10 unit, 0.1 mL, Route: SUB-Q, Drug form: SOLN, TID-Before Meals, Dosing Weight 68.6, kg, PRN Blood Glucose Results, Start date: 03/21/18 16:11:00 CDT, Duration : 30 day, Stop date: 04/20/18 16:10:00 CDT Notes: (Same as: Humalog ) Roll in palms of hands gently; Do not shake `vigorou sly. "Single Patient Use Only " WASTE: F/P - Black; E - [facility] [address] able for 28 days at room temperature.Expires in days from Da te Start Date: 03/21/18 Stop Date: 04/01/18 Status: Discontinued Humalog 4 unit, 0.04 mL, Route: SUB-Q, Drug form: SOLN, Bedtime, Dosing Weight 68.6, kg, PRN Blood Glucose Results, Start date: 03/21/18 16:13:00 CDT, Duration: 30 day, Stop date: 04/20/18 16:12:00 CDT Notes: (Same as: Humalog ) Roll in palms of hands gently; Do not shake `vigorou sly. "Single Patient Use Only " WASTE: F/P - Black; E - [facility] [address] able for 28 days at room temperature.Expires in days from Da te Start Date: 03/21/18 Stop Date: 04/01/18 Status: Discontinued Humalog 3 unit, 0.03 mL, Route: SUB-Q, Drug form: SOLN, Bedtime, Dosing Weight 68.6, kg, PRN Blood Glucose Results, Start date: 03/21/18 16:13:00 CDT, Duration: 30 day, Stop date: 04/20/18 16:12:00 CDT Notes: (Same as: Humalog ) Roll in palms of hands gently; Do not shake `vigorou sly. "Single Patient Use Only " WASTE: F/P - Black; E - [facility] [address] able for 28 days at room temperature.Expires in days from Da te Start Date: 03/21/18 Stop Date: 04/01/18 Status: Discontinued Humalog 2 unit, 0.02 mL, Route: SUB-Q, Drug form: SOLN, Bedtime, Dosing Weight 68.6, kg, PRN Blood Glucose Results, Start date: 03/21/18 16:13:00 CDT, Duration: 30 day, Stop date: 04/20/18 16:12:00 CDT Notes: (Same as: Humalog ) Roll in palms of hands gently; Do not shake `vigorou sly. "Single Patient Use Only " WASTE: F/P - Black; E - [facility] [address] able for 28 days at room temperature.Expires in days from Da te Start Date: 03/21/18 Stop Date: 04/01/18 Status: Discontinued Humalog 1 unit, 0.01 mL, Route: SUB-Q, Drug form: SOLN, Bedtime, Dosing Weight 68.6, kg, PRN Blood Glucose Results, Start date: 03/21/18 16:12:00 CDT, Duration: 30 day, Stop date: 04/20/18 16:11:00 CDT Notes: (Same as: Humalog ) Roll in palms of hands gently; Do not shake `vigorou sly. "Single Patient Use Only " WASTE: F/P - Black; E - [facility] [address] able for 28 days at room temperature.Expires in days from Da te Start Date: 03/21/18 Stop Date: 04/01/18 Status: Discontinued insulin glargine 100 units/mL subcutaneous solution 8 unit, 0.08 mL, Route: SUB-Q, Drug form: SOLN, Bedtime, Dosing Weight 56.818, k g, Start date: 03/28/18 21:00:00 CDT, Duration: 30 day, Stop date: 04/26/18 21:0 0:00 CDT Notes: (Same as: Lantus)Do not hold insulin without contacting prescriberWASTE: F/P - Black; E - [facility] [facility] "single patient use only" Start Date: 03/28/18 Stop Date: 03/29/18 Status: Discontinued insulin glargine 100 units/mL subcutaneous solution 8 unit, 0.08 mL, Route: SUB-Q, Drug form: SOLN, BID, Dosing Weight 56.818, kg, S tart date: 03/26/18 21:00:00 CDT, Duration: 30 day, Stop date: 04/25/18 9:00:00 CDT Notes: (Same as: Lantus)Do not hold insulin without contacting prescriberWASTE: F/P - Black; E - [facility] [facility] "single patient use only" Start Date: 03/26/18 Stop Date: 03/28/18 Status: Discontinued insulin glargine 100 units/mL subcutaneous solution 15 unit, 0.15 mL, Route: SUB-Q, Drug form: SOLN, BID, Dosing Weight 56.818, kg, Start date: 03/22/18 21:00:00 CDT, Duration: 30 day, Stop date: 04/21/18 9:00:00 CDT Notes: (Same as: Lantus)Do not hold insulin without contacting prescriberWASTE: F/P - Black; E - [facility] [facility] "single patient use only" Start Date: 03/22/18 Stop Date: 03/26/18 Status: Discontinued insulin glargine 100 units/mL subcutaneous solution 20 unit, 0.2 mL, Route: SUB-Q, Drug form: SOLN, Daily, Dosing Weight 56.818, kg, Start date: 03/22/18 9:00:00 CDT, Duration: 30 day, Stop date: 04/20/18 9:00:00 CDT Notes: (Same as: Lantus)Do not hold insulin without contacting prescriberWASTE: F/P - Black; E - [facility] Tr[employer] [facility] "single patient use only" Start Date: 03/22/18 Stop Date: 03/22/18 Status: Discontinued insulin glargine 100 units/mL subcutaneous solution 10 unit, Route: SUB-Q, Drug form: SOLN, BID, Dosing Weight 56.818, kg, Start blake e: 03/26/18 17:00:00 CDT, Duration: 30 day, Stop date: 04/25/18 9:00:00 CDT Start Date: 03/26/18 Stop Date: 03/26/18 Status: Canceled Lexapro 10 mg, 1 tab, Route: PO, Drug form: TAB, Daily, Dosing Weight 58.182, kg, Start date: 03/22/18 9:00:00 CDT, Duration: 30 day, Stop date: 04/20/18 9:00:00 CDT Notes: (Same as: Lexapro) Start Date: 03/22/18 Stop Date: 04/01/18 Status: Discontinued Lipitor 40 mg, 1 tab, Route: PO, Drug form: TAB, Bedtime, Dosing Weight 58.182, kg, Star t date: 03/21/18 21:00:00 CDT, Duration: 30 day, Stop date: 04/19/18 21:00:00 CD T Notes: (Same as: Lipitor) Start Date: 03/21/18 Stop Date: 04/01/18 Status: Discontinued lisinopril 20 mg, 1 tab, Route: PO, Drug form: TAB, Daily, Dosing Weight 56.818, kg, Priori ty: NOW, Start date: 03/21/18 19:27:00 CDT, Duration: 30 day, Stop date: 8 9:00:00 CDT Notes: (Same as: Prinivil, Zestril) Start Date: 03/21/18 Stop Date: 03/27/18 Status: Discontinued Lopressor 25 mg, 1 tab, Route: PO, Drug form: TAB, Q12H, Dosing Weight 56.8, kg, Start blake e: 03/21/18 21:00:00 CDT, Stop date: 04/20/18 9:00:00 CDT Notes: (Same as: Lopressor) Start Date: 03/21/18 Stop Date: 04/01/18 Status: Discontinued melatonin 3 mg, 1 tab, Route: PO, Drug form: TAB, Bedtime, Dosing Weight 58.182, kg, PRN S leep, Start date: 03/21/18 16:17:00 CDT, Duration: 30 day, Stop date: 04/20/18 1 6:16:00 CDT Notes: (Same as: Melatonin) Start Date: 03/21/18 Stop Date: 04/01/18 Status: Discontinued metoprolol tartrate 25 mg oral tablet 25 mg = 1 tab, PO, Q12H, # 60 tab, 0 Refill(s) Start Date: 04/01/18 Stop Date: 05/01/18 Status: Ordered nitroglycerin 0.4 mg sublingual tablet 0.4 mg, 1 tab, Route: SL, Drug form: TAB, Q5Min, Dosing Weight 56.8, kg, PRN Adrianne st Pain, Start date: 03/21/18 16:18:00 CDT, Duration: 30 day, Stop date: 8 16:17:00 CDT Notes: (Same as:Nitroquick, Nitrostat)"Do Not Crush" Sublingual tablet Start Date: 03/21/18 Stop Date: 04/01/18 Status: Discontinued Boone 10/325 oral tablet 1 tab, Route: PO, Drug Form: TAB, Dosing Weight 57.017, kg, Q6H, PRN Pain Score 7-10, Start date: 03/27/18 15:33:00 CDT, Duration: 30 day, Stop date: 04/26/18 1 5:32:00 CDT Notes: Do not exceed 4gm/day of acetaminophen. (Same as: Boone 325/10) Start Date: 03/27/18 Stop Date: 04/01/18 Status: Discontinued Boone 5/325 oral tablet 1 tab, Route: PO, Drug Form: TAB, Dosing Weight 57.017, kg, Q4H, PRN Pain Score 6-10, Start date: 03/27/18 14:26:00 CDT, Duration: 30 day, Stop date: 04/26/18 1 4:25:00 CDT Notes: (Same as: Boone 325/5) Do not exceed 4gm/day of acetaminophen. Start Date: 03/27/18 Stop Date: 04/01/18 Status: Discontinued Boone 5/325 oral tablet 1 tab, Route: PO, Drug Form: TAB, Dosing Weight 57.017, kg, Q6H, PRN Pain Score 6-10, Start date: 03/26/18 20:17:00 CDT, Duration: 30 day, Stop date: 04/25/18 2 0:16:00 CDT, pain Notes: (Same as: Boone 325/5) Do not exceed 4gm/day of acetaminophen. Start Date: 03/26/18 Stop Date: 03/27/18 Status: Discontinued Norvasc 10 mg, 2 tab, Route: PO, Drug form: TAB, Daily, Dosing Weight 57.017, kg, Priori ty: NOW, Start date: 03/30/18 16:27:00 CDT, Duration: 30 day, Stop date: 8 9:00:00 CDT Notes: (Same as: Norvasc) Start Date: 03/30/18 Stop Date: 03/31/18 Status: Discontinued Occupational Therapy See Instructions, MISC, ONCALL, Evaluate and Treat 2-3 times per week for 4-6 we eks, # 1 unit, 0 Refill(s) Start Date: 04/01/18 Status: Ordered pantoprazole 40 mg oral enteric coated tablet 40 mg = 1 tab, PO, Daily, # 30 tab, 0 Refill(s) Start Date: 04/01/18 Stop Date: 05/01/18 Status: Ordered Physical Therapy See Instructions, MISC, ONCALL, Evaluate and Treat 2-3 times per week for 4-6 we eks, # 1 ea, 0 Refill(s) Start Date: 04/01/18 Status: Ordered Plavix 75 mg, 1 tab, Route: PO, Drug form: TAB, Daily, Dosing Weight 56.8, kg, Start da te: 03/22/18 9:00:00 CDT, Duration: 30 day, Stop date: 04/20/18 9:00:00 CDT Notes: (Same As: Plavix) Start Date: 03/22/18 Stop Date: 04/01/18 Status: Discontinued ProAmatine 10 mg, 2 tab, Route: PO, Drug form: TAB, Before Dialysis, Dosing Weight 68.6, kg , PRN Other -See Comment, Start date: 03/21/18 16:07:00 CDT, Duration: 30 day, S top date: 04/20/18 16:06:00 CDT, before dialysis Notes: (Same as:Proamatine) Start Date: 03/21/18 Stop Date: 04/01/18 Status: Discontinued Protonix 40 mg, 1 tab, Route: PO, Drug form: ECTAB, Daily, Start date: 03/22/18 9:00:00 C DT, Duration: 30 day, Stop date: 04/20/18 9:00:00 CDT Notes: Tablet should not be chewed or crushed.(Same as: Protonix) Start Date: 03/22/18 Stop Date: 04/01/18 Status: Discontinued Reglan 5 mg, 1 tab, Route: PO, Drug form: TAB, QID-Before Meals, Dosing Weight 58.182, kg, PRN Nausea & Vomiting, Start date: 03/21/18 16:17:00 CDT, Duration: 30 day, Stop date: 04/20/18 16:16:00 CDT Notes: (Same as: Reglan) Take 30 min before meals Start Date: 03/21/18 Stop Date: 04/01/18 Status: Discontinued sulfaSALAzine 500 mg, 1 tab, Route: PO, Drug form: TAB, BID, Dosing Weight 56.818, kg, Start d ate: 03/22/18 9:00:00 CDT, Duration: 30 day, Stop date: 04/20/18 17:00:00 CDT Notes: (Same As: Azulfidine) Start Date: 03/22/18 Stop Date: 04/01/18 Status: Discontinued sulfaSALAzine 500 mg oral tablet 500 mg = 1 tab, PO, BID, # 60 tab, 0 Refill(s) Start Date: 04/01/18 Stop Date: 05/01/18 Status: Ordered trazodone 50 mg, 1 tab, Route: PO, Drug form: TAB, Bedtime, Dosing Weight 61.7, kg, PRN In somnia, Start date: 03/21/18 15:07:00 CDT, Duration: 30 day, Stop date: 04/20/18 15:06:00 CDT Notes: (Same As: Desyrel) Start Date: 03/21/18 Stop Date: 04/01/18 Status: Discontinued Tylenol 650 mg, 2 tab, Route: PO, Drug form: TAB, Q4H, Dosing Weight 56.8, kg, PRN Pain Score 1-5, Start date: 03/21/18 16:07:00 CDT, Duration: 30 day, Stop date: 04/20 16:06:00 CDT Notes: Do not exceed 4 gm/day. (Same as: Tylenol) Start Date: 03/21/18 Stop Date: 04/01/18 Status: Discontinued Results ELECTROLYTES 1 2 3 Most recent to oldest [Reference Range]: 143 mEq/L (04/01/18 8:00 AM) 140 mEq/L (03/31/18 11:46 AM) 138 mEq/L (03/30/18 3:44 AM) Sodium Lvl [135-145 mEq/L] 4.9 mEq/L (04/01/18 8:00 AM) 5.0 mEq/L (03/31/18 11:46 AM) 4.9 mEq/L (03/30/18 3:44 AM) Potassium Lvl [3.5-5.1 mEq/L] 106 mEq/L (04/01/18 8:00 AM) 108 mEq/L (03/31/18 11:46 AM) 106 mEq/L (03/30/18 3:44 AM) Chloride Lvl [95-109 mEq/L] 29 mEq/L (04/01/18 8:00 AM) 27 mEq/L (03/31/18 11:46 AM) 26 mEq/L (03/30/18 3:44 AM) CO2 [24-32 mEq/L] 12.9 mEq/L (04/01/18 8:00 AM) 10.0 mEq/L (03/31/18 11:46 AM) 10.9 mEq/L (03/30/18 3:44 AM) AGAP [10.0-20.0 mEq/L] CHEM PANEL 1 2 3 Most recent to oldest [Reference Range]: 2.18 mg/dL *HI* (04/01/18 8:00 AM) 2.08 mg/dL *HI* (03/31/18 11:46 AM) 2.12 mg/dL *HI* (03/30/18 3:44 AM) Creatinine Lvl [0.50-1.40 mg/dL] 23 mL/min/1.73m2 1 *NA* (04/01/18 8:00 AM) 24 mL/min/1.73m2 2 *NA* (03/31/18 11:46 AM) 24 mL/min/1.73m2 3 *NA* (03/30/18 3:44 AM) eGFR 32 mg/dL *HI* (04/01/18 8:00 AM) 30 mg/dL *HI* (03/31/18 11:46 AM) 29 mg/dL *HI* (03/30/18 3:44 AM) BUN [7-22 mg/dL] 137 mg/dL *HI* (04/01/18 8:00 AM) 113 mg/dL *HI* (03/31/18 11:46 AM) 96 mg/dL (03/30/18 3:44 AM) Glucose Lvl [70-99 mg/dL] 6.5 g/dL (03/22/18 4:50 AM) Total Protein [6.4-8.4 g/dL] 3.5 g/dL (03/22/18 4:50 AM) Albumin Lvl [3.5-5.0 g/dL] 8.7 mg/dL (04/01/18 8:00 AM) 8.3 mg/dL *LOW* (03/31/18 11:46 AM) 8.2 mg/dL *LOW* (03/30/18 3:44 AM) Calcium Lvl [8.5-10.5 mg/dL] 1.9 mg/dL (03/22/18 4:50 AM) Magnesium Lvl [1.8-2.4 mg/dL] 1Result Comment: The eGFR is calculated using [...] be mul tiplied by the estimated BMI. SPECIAL CHEMISTRY 1 2 3 Most recent to oldest [Reference Range]: 6.4 % *HI* (03/22/18 4:50 AM) Hgb A1C [<=5.6 %] IMMUNOLOGY 1 2 3 Most recent to oldest [Reference Range]: 11.4 mg/dL *LOW* (03/29/18 5:30 AM) 10.2 mg/dL *LOW* (03/22/18 4:50 AM) Prealbumin [18.0-45.0 mg/dL] Negative *NA* (03/23/18 1:20 PM) Hep Bs Ag [Negative] HEMATOLOGY 1 2 3 Most recent to oldest [Reference Range]: 4.4 K/CMM (04/01/18 8:00 AM) 4.6 K/CMM (03/30/18 3:44 AM) 4.7 K/CMM (03/29/18 5:30 AM) WBC [3.7-10.4 K/CMM] 3.25 M/CMM *LOW* (04/01/18 8:00 AM) 2.99 M/CMM *LOW* (03/30/18 3:44 AM) 3.04 M/CMM *LOW* (03/29/18 5:30 AM) RBC [4.20-5.40 M/CMM] 9.7 g/dL *LOW* (04/01/18 8:00 AM) 9.0 g/dL *LOW* (03/30/18 3:44 AM) 9.0 g/dL *LOW* (03/29/18 5:30 AM) Hgb [12.0-16.0 g/dL] 29.7 % *LOW* (04/01/18 8:00 AM) 26.8 % *LOW* (03/30/18 3:44 AM) 27.5 % *LOW* (03/29/18 5:30 AM) Hct [36.0-48.0 %] 91.2 fL (04/01/18 8:00 AM) 89.6 fL (03/30/18 3:44 AM) 90.5 fL (03/29/18 5:30 AM) MCV [80.0-98.0 fL] 29.8 pg (04/01/18 8:00 AM) 30.0 pg (03/30/18 3:44 AM) 29.5 pg (03/29/18 5:30 AM) MCH [27.0-31.0 pg] 32.7 g/dL (04/01/18 8:00 AM) 33.5 g/dL (03/30/18 3:44 AM) 32.6 g/dL (03/29/18 5:30 AM) MCHC [32.0-36.0 g/dL] 18.1 % *HI* (04/01/18 8:00 AM) 17.3 % *HI* (03/30/18 3:44 AM) 17.2 % *HI* (03/29/18 5:30 AM) RDW [11.5-14.5 %] 8.5 fL (04/01/18 8:00 AM) 8.7 fL (03/30/18 3:44 AM) 8.9 fL (03/29/18 5:30 AM) MPV [7.4-10.4 fL] 204 K/CMM (04/01/18 8:00 AM) 136 K/CMM (03/30/18 3:44 AM) 117 K/CMM *LOW* (03/29/18 5:30 AM) Platelet [133-450 K/CMM] 62.0 % (04/01/18 8:00 AM) 51.9 % (03/30/18 3:44 AM) 54.1 % (03/29/18 5:30 AM) Segs [45.0-75.0 %] 21.5 % (04/01/18 8:00 AM) 24.9 % (03/30/18 3:44 AM) 24.3 % (03/29/18 5:30 AM) Lymphocytes [20.0-40.0 %] 12.6 % *HI* (04/01/18 8:00 AM) 17.0 % *HI* (03/30/18 3:44 AM) 16.0 % *HI* (03/29/18 5:30 AM) Monocytes [2.0-12.0 %] 3.3 % (04/01/18 8:00 AM) 5.6 % *HI* (03/30/18 3:44 AM) 5.1 % *HI* (03/29/18 5:30 AM) Eosinophils [0.0-4.0 %] 0.6 % (04/01/18 8:00 AM) 0.6 % (03/30/18 3:44 AM) 0.5 % (03/29/18 5:30 AM) Basophils [0.0-1.0 %] 2.7 K/CMM (04/01/18 8:00 AM) 2.4 K/CMM (03/30/18 3:44 AM) 2.5 K/CMM (03/29/18 5:30 AM) Segs-Bands # [1.5-8.1 K/CMM] 0.9 K/CMM *LOW* (04/01/18 8:00 AM) 1.2 K/CMM (03/30/18 3:44 AM) 1.1 K/CMM (03/29/18 5:30 AM) Lymphocytes # [1.0-5.5 K/CMM] 0.6 K/CMM (04/01/18 8:00 AM) 0.8 K/CMM (03/30/18 3:44 AM) 0.7 K/CMM (03/29/18 5:30 AM) Monocytes # [0.0-0.8 K/CMM] 0.1 K/CMM (04/01/18 8:00 AM) 0.3 K/CMM (03/30/18 3:44 AM) 0.2 K/CMM (03/29/18 5:30 AM) Eosinophils # [0.0-0.5 K/CMM] Immunizations Given and Recorded Vaccine Date Status Refusal Reason pneumococcal 13-valent vaccine 01/16/17 Given influenza virus vaccine, inactivated 01/16/17 G iven pneumococcal 23-valent vaccine 02/18/16 Given Procedures Procedure Date Related Diagnosis Body Site Status Abdominal hysterectomy Completed CABG x 1 - Coronary artery bypass graft x 1 Compl eted Cholecystectomy1 Completed Cholecystotomy Completed Eye care Completed 12108 Social History Social History Type Response Substance Abuse Use: None. Alcohol Never Smoking Status Never smoker; Exposure to T obacco Smoke None; Cigarette Smoking Last 365 Days No; Reg Smoking Cessation Counseli ng No entered on: 03/21/18 Assessment and Plan Extracted from: Title: Clinical Document Author: Chucho Zhou MD Date: 04/01/18 Progress Note SUBJECTIVE: Patient seen and evaluated at bedside. No overnight events. Denies chest pain, nausea, vomiting, diarrhea, headache, lightheadness, abdomen pain or dizziness. OBJECTIVE: VitalsTmp(F)[id number] 04/01 12:[id number]--- 04/01 07:[id number]--- 03/31 20:[id number]--- 03/31 16:[id number]------ 03/31 08:[id number]------ 24 Hr Tmax: 98.7F (37.06c) at 03/31 20:1 0Vital Signs are the last 5 in the past 48 hours. I&ORecordInOutBal 0424hr Tot 640 0 640 0324hr Tot 720 1100 -380 Labs (Last four charted values) WBC 4.4(APR 01)4.6(MAR 02)4.7(MAR 29)5.2(MARCH 28) Hgb L 9.7(APR 01)L 9.0(MAR 02)L 9.0(MAR 29)L 9.9(MARCH 28) Hct L 29.7(MAR 04)L 26.8(MAR 02)L 27.5(MAR 29)L 29.5(MARCH 28) Plt 204(APR 01)136(MAR 02)L 117(MAR 29)L 99(MARCH 28) Na 143(MAR 04)140(MAR 03)138(MAR 02)140(MAR 29) K 4.9(MAR 04)5.0(MAR 03)4.9(JAY 02)5.0(MAR 01) CO2 29(MAR 04)27(MAR 03)26(MAR 02)29(MAR 01) Cl 106(MAR 04)108(MAR 03)106(MAR 02)103(MAR 29) Cr H 2.18(MAR 04)H 2.08(MAR 03)H 2.12(MAR 02)H 2.43(MAR 29) BUN H 32(MAR 04)H 30(MAR 03)H 29(JAY 02)H 29(MAR 01) Glucose Random H 137(MAR 04)H 113(MAR 03)96(MAR 02)84(MAR 01) Mg 1.9(MARCH 22) Ca 8.7(MAR 04)L 8.3(MAR 03)L 8.2(MAR 02)8.6(MAR 29) No qualifying data available PHYSICAL EXAM: [...] clear and coherent. Psychiatric: Cooperative, Appropriate mood & affect. Lower extremity venous Doppler: IMPRESSION: Superficial thrombosis, otherwise no deep venous thrombosis of the left lower extremity appreciated. Impression and Plan 1. Status post CABG aspirin, Plavix, statin, cardio protective meds 2. ESRD on HD nephrology following, HD per renal, nephrology following possible and not need dialysis 3. Type 2 diabetes increase Lantus to 15 units twice daily, continue with sliding scale [...] DC Lantus and monitor glucose levels closely 6/: Glucose levels stable and controlled, continue with sliding scale 03/31: Glucose stables, continue to monitor closely 04/01: Glucose stable, monitored off of the entire glycemic medication 4. Hypertension stable, continue same home medication, will add Norvasc 10 mg daily 5. Hyperlipidemia oral statin 6. Anemia of ESRD erythropoietin, venofer 7. Prophylaxis SCDs, ambulation 8. Fluid electrolytes nutrients diabetic diet 9. Left lower extremity swelling concer theodore for DVT damage venous Doppler ordered, shows evidence of thrombophlebitis, continue with warm compresses, patient reports feeling much better today 03/29: Left lower extremity pain improved, still has tenderness and swelling, continue with warm compresses 2: Patient is improving, continue same plan of care 04/01: Continue with aspirin Plavix and warm compresses 10. Disposition inpatient rehab, nephrology, cardiology, physical medicine rehab following Patient will be discharged home today
--- OUTSIDE RECORDS SUMMARY | 2020-06-17 13:08 | XMS REPORT | Summary of Care ---
Author Author [facility] Organization [facility] Address Unknown Phone Unavailable Encounter HQ Elda(MALOU) [id number] Date(s): 04/12/18 - 04/12/18 [facility] [address] [place] [address]- Discharge Disposition: Home or Self Care Attending Physician: Gabriele Chaney MD Vital Signs No data available for [...] Substance Reaction Severity Status NKDA Active Medications No data available for this section Results ELECTROLYTES Most recent to 1 oldest [Reference Range]: Sodium Lvl [135-145 144 mEq/L mEq/L] (04/12/18 10:45 AM) Potassium Lvl 4.6 mEq/L [3.5-5.1 mEq/L] (04/12/18 10:45 AM) Chloride Lvl [95-109 113 mEq/L mEq/L] *HI* (04/12/18 10:45 AM) CO2 [24-32 mEq/L] 26 mEq/L (04/12/18 10:45 AM) AGAP [10.0-20.0 9.6 mEq/L mEq/L] *LOW* (04/12/18 10:45 AM) CHEM PANEL Most recent to 1 oldest [Reference Range]: Creatinine Lvl 2.25 mg/dL [0.50-1.40 mg/dL] *HI* (04/12/18 10:45 AM) eGFR 22 mL/min/1.73m2 1 *NA* (04/12/18 10:45 AM) BUN [7-22 mg/dL] 43 mg/dL *HI* (04/12/18 10:45 AM) Glucose Lvl [70-99 82 mg/dL mg/dL] (04/12/18 10:45 AM) Calcium Lvl 8.5 mg/dL [8.5-10.5 mg/dL] (04/12/18 10:45 AM) 1Result Comment: The eGFR is calculated using [...] be mul tiplied by the estimated BMI. HEMATOLOGY Most recent to 1 oldest [Reference Range]: WBC [3.7-10.4 K/CMM] 6.5 K/CMM (04/12/18 10:45 AM) RBC [4.20-5.40 3.49 M/CMM M/CMM] *LOW* (04/12/18 10:45 AM) Hgb [12.0-16.0 g/dL] 9.9 g/dL *LOW* (04/12/18 10:45 AM) Hct [36.0-48.0 %] 31.5 % *LOW* (04/12/18 10:45 AM) MCV [80.0-98.0 fL] 90.2 fL (04/12/18 10:45 AM) MCH [27.0-31.0 pg] 28.5 pg (04/12/18 10:45 AM) MCHC [32.0-36.0 31.6 g/dL g/dL] *LOW* (04/12/18 10:45 AM) RDW [11.5-14.5 %] 17.8 % *HI* (04/12/18 10:45 AM) MPV [7.4-10.4 fL] 8.1 fL (04/12/18 10:45 AM) Platelet [133-450 170 K/CMM K/CMM] (04/12/18 10:45 AM) Segs [45.0-75.0 %] 69.2 % (04/12/18 10:45 AM) Lymphocytes 17.2 % [20.0-40.0 %] *LOW* (04/12/18 10:45 AM) Monocytes [2.0-12.0 9.7 % %] (04/12/18 10:45 AM) Eosinophils [0.0-4.0 3.4 % %] (04/12/18 10:45 AM) Basophils [0.0-1.0 0.5 % %] (04/12/18 10:45 AM) Segs-Bands # 4.5 K/CMM [1.5-8.1 K/CMM] (04/12/18 10:45 AM) Lymphocytes # 1.1 K/CMM [1.0-5.5 K/CMM] (04/12/18 10:45 AM) Monocytes # [0.0-0.8 0.6 K/CMM K/CMM] (04/12/18 10:45 AM) Eosinophils # 0.2 K/CMM [0.0-0.5 K/CMM] (04/12/18 10:45 AM) Immunizations Given and Recorded Vaccine Date Status Refusal Reason pneumococcal 13-valent vaccine 01/16/17 Given influenza virus vaccine, inactivated 01/16/17 G iven pneumococcal 23-valent vaccine 02/18/16 Given Procedures Procedure Date Related Diagnosis Body Site Status Abdominal hysterectomy Completed CABG x 1 - Coronary artery bypass graft x 1 Compl eted Cholecystectomy1 Completed Cholecystotomy Completed Eye care Completed 09522 Social History Social History Type Response Substance Abuse Use: None. Alcohol Never Smoking Status Never smoker; Exposure to T obacco Smoke None; Cigarette Smoking Last 365 Days No; Reg Smoking Cessation Counseli ng No entered on: 03/21/18 Assessment and Plan No data available for this section
--- OUTSIDE RECORDS SUMMARY | 2020-06-17 13:08 | XMS REPORT | Summary of Care ---
Author Author [facility] Outpatient Imaging - [facility] Organization [facility] Outpatient Imaging - [facility] Address Unknown Phone Unavailable Encounter HQ Elda(FIN) [id number] Date(s): 01/06/20 - 01/06/20 [facility] Outpatient Imaging - [place] [address] [place], [place] [address] [phone] Discharge Disposition: Home or Self Care Attending Physician: Darren Castro MD Referring Physician: Darren Castro MD Vital Signs No data available for [...] Cholecystectomy1 Completed Cholecystotomy Completed Eye care Completed 96830 Social History Social History Type Response Alcohol Never Substance Abuse Use: None. Smoking Status Never smoker; Exposure to T obacco Smoke None; Cigarette Smoking Last 365 Days No; Reg Smoking Cessation Counseli ng No entered on: 12/30/19 Assessment and Plan No data available for this section
--- OUTSIDE RECORDS SUMMARY | 2020-06-17 13:08 | XMS REPORT | Summary of Care ---
Author Author [facility] Organization [facility] Address Unknown Phone Unavailable Encounter HQ Elda(FIN) [id number] Date(s): 12/11/19 - 12/11/19 [facility] [address] [place] [address]- [phone] Encounter Diagnosis Acute diarrhea (Discharge Diagnosis) - 12/11/19 CAP (community acquired pneumonia) (Discharge Diagnosis) - 12/11/19 Acute lower UTI (urinary tract infection) (Discharge Diagnosis) - 12/11/19 ESRD on hemodialysis (Discharge Diagnosis) - 12/11/19 Acute generalized abdominal pain (Discharge Diagnosis) - 12/11/19 Discharge Disposition: Home or Self Care Attending Physician: Az Flores MD Vital Signs 1 2 3 Most recent to oldest [Reference Range]: 98.3 DegF (12/11/19 7:00 PM) 98.1 DegF (12/11/19 1:47 PM) Temperature Oral [96.4-99.1 DegF] 142/75 mmHg *HI* (12/11/19 7:00 PM) 138/62 mmHg (12/11/19 2:55 PM) 114/62 mmHg (12/11/19 1:47 PM) Blood Pressure [90-140/60-90 mmHg] 18 BRMIN (12/11/19 7:00 PM) 17 BRMIN (12/11/19 2:55 PM) 16 BRMIN (12/11/19 1:47 PM) Respiratory Rate [14-20 BRMIN] 69 bpm (12/11/19 7:00 PM) 70 bpm (12/11/19 2:55 PM) 70 bpm (12/11/19 1:47 PM) Peripheral Pulse Rate [60-100 bpm] 53.636 kg (12/11/19 1:47 PM) Weight Problem List Condition Effective Dates Status Health [...] Reactions, Alerts No Known Medication Allergies Medications Keflex 500 mg oral capsule 500 mg = 1 cap, PO, Daily, Take in the evening after dialysis at the same time e very day., X 7 day, # 7 cap, 0 Refill(s) Start Date: 12/11/19 Stop Date: 12/18/19 Status: Ordered Results Most recent to 1 oldest [Reference Range]: Neutrophils # 2.5 K/CMM [1.5-8.1 K/CMM] (12/11/19 1:59 PM) Lymphocytes # 1.1 K/CMM [1.0-5.5 K/CMM] (12/11/19 1:59 PM) Monocytes # [0.0-0.8 0.5 K/CMM K/CMM] (12/11/19 1:59 PM) Eosinophils # 0.6 K/CMM [0.0-0.5 K/CMM] *HI* (12/11/19 1:59 PM) eGFR 9 mL/min/1.73m2 1 *NA* (12/11/19 1:59 PM) A/G Ratio [0.7-1.6] 0.6 *LOW* (12/11/19 1:59 PM) Albumin Lvl [3.5-5.0 3.3 g/dL g/dL] *LOW* (12/11/19 1:59 PM) Alk Phos [39-136 165 unit/L unit/L] *HI* (12/11/19 1:59 PM) ALT [0-65 unit/L] 18 unit/L (12/11/19 1:59 PM) AGAP [10.0-20.0 9.7 mEq/L mEq/L] *LOW* (12/11/19 1:59 PM) AST [0-37 unit/L] 25 unit/L (12/11/19 1:59 PM) B/C Ratio [6-25] 4 *LOW* (12/11/19 1:59 PM) Basophils [0.0-1.0 0.5 % %] (12/11/19 1:59 PM) BUN [7-22 mg/dL] 16 mg/dL (12/11/19 1:59 PM) Calcium Lvl 9.3 mg/dL [8.5-10.5 mg/dL] (12/11/19 1:59 PM) Chloride Lvl [95-109 100 mEq/L mEq/L] (12/11/19 1:59 PM) CO2 [24-32 mEq/L] 32 mEq/L (12/11/19 1:59 PM) Creatinine Lvl 4.50 mg/dL [0.50-1.40 mg/dL] *HI* (12/11/19 1:59 PM) Eosinophils [0.0-4.0 12.2 % %] *HI* (12/11/19 1:59 PM) Globulin [2.7-4.2 5.2 g/dL g/dL] *HI* (12/11/19 1:59 PM) Glucose Lvl [70-99 253 mg/dL mg/dL] *HI* (12/11/19 1:59 PM) Hct [36.0-48.0 %] 33.8 % *LOW* (12/11/19 1:59 PM) Hgb [12.0-16.0 g/dL] 11.2 g/dL *LOW* (12/11/19 1:59 PM) Potassium Lvl 3.7 mEq/L [3.5-5.1 mEq/L] (12/11/19 1:59 PM) Lipase Lvl [73-393 95 unit/L unit/L] (12/11/19 1:59 PM) Lymphocytes 23.6 % [20.0-40.0 %] (12/11/19 1:59 PM) MCH [27.0-31.0 pg] 32.3 pg *HI* (12/11/19 1:59 PM) MCHC [32.0-36.0 33.1 g/dL g/dL] (12/11/19 1:59 PM) MCV [80.0-98.0 fL] 97.7 fL (12/11/19 1:59 PM) Monocytes [2.0-12.0 10.0 % %] (12/11/19 1:59 PM) MPV [7.4-10.4 fL] 8.7 fL (12/11/19:59 PM) Sodium Lvl [135-145 138 mEq/L mEq/L] (12/11/19 1:59 PM) Platelet [133-450 130 K/CMM K/CMM] *LOW* (12/11/19:59 PM) Segs [45.0-75.0 %] 53.7 % (12/11/19:59 PM) Total Protein 8.5 g/dL [6.4-8.4 g/dL] *HI* (12/11/19:59 PM) RBC [4.20-5.40 3.46 M/CMM M/CMM] *LOW* (12/11/19:59 PM) RDW [11.5-14.5 %] 14.5 % (12/11/19 1:59 PM) Bili Total [0.2-1.3 0.6 mg/dL mg/dL] (12/11/19 1:59 PM) WBC [3.7-10.4 K/CMM] 4.7 K/CMM (12/11/19 1:59 PM) 1Result Comment: The eGFR is calculated [...] Cholecystectomy1 Completed Cholecystotomy Completed Eye care Completed 16094 Social History Social History Type Response Alcohol Never Substance Abuse Use: None. Smoking Status Never smoker; Exposure to T obacco Smoke None; Cigarette Smoking Last 365 Days No; Reg Smoking Cessation Counseli ng No entered on: 11/21/19 Assessment and Plan No data available for this section
--- OUTSIDE RECORDS SUMMARY | 2020-06-17 13:08 | XMS REPORT | Summary of Care ---
Author Author [facility] Organization [facility] Address Unknown Phone Unavailable Encounter ISRAEL Schroeder(MALOU) [id number] Date(s): 06/26/19 - 06/26/19 [facility] [address] [place] [address]- Discharge Disposition: Home or Self Care Attending Physician: Galindo Mccarty MD Referring Physician: Galindo Mccarty MD Vital Signs No data available for [...] Cholecystectomy1 Completed Cholecystotomy Completed Eye care Completed 85534 Social History Social History Type Response Alcohol Never Substance Abuse Use: None. Smoking Status Unknown if ever smoked; Exp osure to Tobacco Smoke Unable to obtain; Cigarette Smoking Last 365 Days Unable to obtain; Reg Smoking Cessation Counseling No entered on: 04/03/19 Assessment and Plan No data available for this section
--- OUTSIDE RECORDS SUMMARY | 2020-06-17 13:09 | XMS REPORT | Summary of Care ---
Author Author [facility] ospital Organization [facility] Address Unknown Phone Unavailable Encounter HQ Elda(MALOU) [id number] Date(s): 05/31/20 - 06/07/20 [facility] [address] [place] [address]- Discharge Disposition: Home or Self Care Attending Physician: Carlene Stokes MD Admitting Physician: Afshan Marcelo MD Vital Signs 1 2 3 Most recent to oldest [Reference Range]: 157.48 cm (05/31/20 7:16 AM) Height 98.0 DegF (06/07/20 11:50 AM) 98.0 DegF (06/07/20 7:40 AM) 98.1 DegF (06/07/20 5:08 AM) Temperature Oral [96.4-99.1 DegF] 94/47 mmHg (06/07/20 12:15 PM) 102/48 mmHg (06/07/20 11:50 AM) 148/60 mmHg *HI* (06/07/20 11:30 AM) Blood Pressure [90-140/60-90 mmHg] 13 BRMIN *LOW* (06/07/20 12:15 PM) 13 BRMIN *LOW* (06/07/20 11:50 AM) 17 BRMIN (06/07/20 11:30 AM) Respiratory Rate [14-20 BRMIN] 79 bpm (06/06/20 3:30 PM) 79 bpm (06/06/20 11:40 AM) 86 bpm (06/06/20 8:09 AM) Peripheral Pulse Rate [60-100 bpm] 50 kg (05/31/20 7:16 AM) Weight 20.16 m2 (05/31/20 7:16 AM) Body Mass Index Problem List Condition Effective Dates Status Health Status Informan t ATN (acute tubular Resolved necrosis)(Confirmed) Alzheimer Active disease(Confirmed) Cholelithiasis(Confi Resolved rmed) Coronary artery Active disease(Confirmed) Diabetes Resolved mellitus(Confirmed) Escherichia Active coli(Confirmed)1 Hepatitis Active C(Confirmed) Hypertension(Confirm Active ed) Volume Active overload(Confirmed) 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 Allergies, Adverse Reactions, Alerts No Known Medication Allergies Medications acetaminophen 650 mg, 2 tab, Route: PO, Drug form: TAB, Q4H, Dosing Weight 50, kg, PRN Pain 1- 3/Temp > 100.4 F, Start date: 05/31/20 11:11:00 CDT, Duration: 30 day, Stop date: 06/30/20 11:10:00 CDT, 0 Notes: Do not exceed 4 gm/day. (Same as: Tylenol) Start Date: 05/31/20 Stop Date: 06/07/20 Status: Discontinued Ativan 1 mg, 0.5 mL, Route: IVP, Drug form: INJ, ONCE, Dosing Weight 50, kg, PRN Anxiet y, Start date: 06/02/20 11:39:00 CDT, 0 Notes: (Same as: Ativan) Start Date: 06/02/20 Stop Date: 06/02/20 Status: Completed atorvastatin 40 mg, 1 tab, Route: PO, Drug form: TAB, Bedtime, Dosing Weight 50, kg, Start da te: 05/31/20 21:00:00 CDT, Duration: 30 day, Stop date: 06/29/20 21:00:00 CDT, 0 Notes: (Same as: Lipitor) Start Date: 05/31/20 Stop Date: 06/07/20 Status: Discontinued atorvastatin 20 mg oral tablet 20 mg = 1 tab, PO, Bedtime, # 30 tab, 1 Refill(s), Pharmacy: [facility][id number], 157.48, cm, 05/31/20 7:16:00 CDT, Height, 50, kg, 05/31/20 7:16:00 CDT , Weight Start Date: 06/07/20 Status: Ordered clopidogrel 75 mg, 1 tab, Route: PO, Drug form: TAB, Daily, Dosing Weight 50, kg, Priority: NOW, Start date: 05/31/20 14:37:00 CDT, Duration: 30 day, Stop date: 06/30/20 9: 00:00 CDT, 0 Notes: (Same As: Plavix) Start Date: 05/31/20 Stop Date: 06/07/20 Status: Discontinued Dextrose 50% Syringe (D50W) 12.5 gm, 25 mL, Route: IVP, Drug Form: INJ, Dosing Weight 50, kg, PRN, PRN Blood Glucose Results, Start date: 05/31/20 11:11:00 CDT, Duration: 30 day, Stop date: 06/30/20 11:10:00 CDT, 0 Start Date: 05/31/20 Stop Date: 05/31/20 Status: Discontinued Dextrose 50% Syringe (D50W) 25 gm, 50 mL, Route: IVP, Drug Form: INJ, Dosing Weight 50, kg, PRN, PRN Blood G lucose Results, Start date: 05/31/20 11:11:00 CDT, Duration: 30 day, Stop date: 06/30/20 11:10:00 CDT, 0 Start Date: 05/31/20 Stop Date: 05/31/20 Status: Discontinued Dextrose 50% Syringe (D50W) 12.5 gm, 25 mL, Route: IVP, Drug Form: INJ, Dosing Weight 50, kg, PRN, PRN Blood Glucose Results, Start date: 05/31/20 14:48:00 CDT, Duration: 30 day, Stop date: 06/30/20 14:47:00 CDT, 0 Start Date: 05/31/20 Stop Date: 06/07/20 Status: Discontinued Dextrose 50% Syringe (D50W) 25 gm, 50 mL, Route: IVP, Drug Form: INJ, Dosing Weight 50, kg, PRN, PRN Blood G lucose Results, Start date: 05/31/20 14:48:00 CDT, Duration: 30 day, Stop date: 06/30/20 14:47:00 CDT, 0 Start Date: 05/31/20 Stop Date: 06/07/20 Status: Discontinued famotidine 20 mg oral tablet 20 mg = 1 tab, PO, BID, # 60 tab, 1 Refill(s), Pharmacy: [facility] #[id number], 157.48, cm, 05/31/20 7:16:00 CDT, Height, 50, kg, 05/31/20 7:16:00 CDT, We ight Start Date: 06/07/20 Status: Ordered Geodon 10 mg, Route: IM, Drug form: PDR/INJ, Q2H, Dosing Weight 50, kg, PRN Agitation, Start date: 05/31/20 23:47:00 CDT, Duration: 30 day, Stop date: 06/30/20 23:46:0 0 CDT, 0 Notes: Reconstitute with 1.2 ml of sterile water. Final concentration = 20 mg/1 ml. Maximum 40 mg/24 hours (Same As: Geodon).Hazardous Drug Group 3:Rep roductive risk Hazardous Drug -- Refer to safe handling procedure PPE Matrix * MEDICATION WASTE Product Size: 20 mgProduct Wasted: ___ mg Start Date: 05/31/20 Stop Date: 06/07/20 Status: Discontinued glucagon 1 mg, Route: IM, Drug form: PDR/INJ, PRN, Dosing Weight 50, kg, PRN Blood Glucos e Results, Start date: 05/31/20 11:11:00 CDT, Duration: 30 day, Stop date: 06/30 11:10:00 CDT, 0 Start Date: 05/31/20 Stop Date: 05/31/20 Status: Discontinued glucagon 1 mg, Route: IM, Drug form: PDR/INJ, PRN, Dosing Weight 50, kg, PRN Blood Glucos e Results, Start date: 05/31/20 14:48:00 CDT, Duration: 30 day, Stop date: 06/30 14:47:00 CDT, 0 Start Date: 05/31/20 Stop Date: 06/07/20 Status: Discontinued insulin lispro 1 unit, 0.01 mL, Route: SUB-Q, Drug form: SOLN, TID-Before Meals, Dosing Weight 50, kg, PRN Blood Glucose Results, Start date: 05/31/20 14:48:00 CDT, Duration: 30 day, Stop date: 06/30/20 14:47:00 CDT, 0 Notes: (Same as: Humalog) Roll in palms of hands gently; Do not shake vigorously . WASTE: F/P - Black; E - [facility] for 28 days at [facility].Expires in days from Date Start Date: 05/31/20 Stop Date: 06/07/20 Status: Discontinued insulin lispro 2 unit, 0.02 mL, Route: SUB-Q, Drug form: SOLN, TID-Before Meals, Dosing Weight 50, kg, PRN Blood Glucose Results, Start date: 05/31/20 14:48:00 CDT, Duration: 30 day, Stop date: 06/30/20 14:47:00 CDT, 0 Notes: (Same as: Humalog) Roll in palms of hands gently; Do not shake vigorously . WASTE: F/P - Black; E - [employer] Tr[facility] for 28 days at [facility].Expires in days from Date Start Date: 05/31/20 Stop Date: 06/07/20 Status: Discontinued insulin lispro 3 unit, 0.03 mL, Route: SUB-Q, Drug form: SOLN, TID-Before Meals, Dosing Weight 50, kg, PRN Blood Glucose Results, Start date: 05/31/20 14:48:00 CDT, Duration: 30 day, Stop date: 06/30/20 14:47:00 CDT, 0 Notes: (Same as: Humalog) Roll in palms of hands gently; Do not shake vigorously . WASTE: F/P - Black; E - [employer] Trash Bin[employer] for 28 days at [facility].Expires in days from Date Start Date: 05/31/20 Stop Date: 06/07/20 Status: Discontinued insulin lispro 4 unit, 0.04 mL, Route: SUB-Q, Drug form: SOLN, TID-Before Meals, Dosing Weight 50, kg, PRN Blood Glucose Results, Start date: 05/31/20 14:48:00 CDT, Duration: 30 day, Stop date: 06/30/20 14:47:00 CDT, 0 Notes: (Same as: Humalog) Roll in palms of hands gently; Do not shake vigorously . WASTE: F/P - Black; E - [facility] Trash BinStable for 28 days at room [facility].Expires in days from Date Start Date: 05/31/20 Stop Date: 06/07/20 Status: Discontinued insulin lispro 5 unit, 0.05 mL, Route: SUB-Q, Drug form: SOLN, TID-Before Meals, Dosing Weight 50, kg, PRN Blood Glucose Results, Start date: 05/31/20 14:48:00 CDT, Duration: 30 day, Stop date: 06/30/20 14:47:00 CDT, 0 Notes: (Same as: Humalog) Roll in palms of hands gently; Do not shake vigorously . WASTE: F/P - Black; E - [employer] Trash BinStable for 28 days at room [facility].Expires in days from Date Start Date: 05/31/20 Stop Date: 06/07/20 Status: Discontinued insulin lispro 1 unit, 0.01 mL, Route: SUB-Q, Drug form: SOLN, Bedtime, Dosing Weight 50, kg, P RN Blood Glucose Results, Start date: 05/31/20 14:48:00 CDT, Duration: 30 day, S top date: 06/30/20 14:47:00 CDT, 0 Notes: (Same as: Humalog) Roll in palms of hands gently; Do not shake vigorously . WASTE: F/P - Black; E - [employer] Trash BinStable for 28 days at room [facility].Expires in days from Date Start Date: 05/31/20 Stop Date: 06/07/20 Status: Discontinued insulin lispro 2 unit, 0.02 mL, Route: SUB-Q, Drug form: SOLN, Bedtime, Dosing Weight 50, kg, P RN Blood Glucose Results, Start date: 05/31/20 14:48:00 CDT, Duration: 30 day, S top date: 06/30/20 14:47:00 CDT, 0 Notes: (Same as: Humalog) Roll in palms of hands gently; Do not shake vigorously . WASTE: F/P - Black; E - [employer] Trash BinStable for 28 days at [facility].Expires in days from Date Start Date: 05/31/20 Stop Date: 06/07/20 Status: Discontinued insulin lispro 3 unit, 0.03 mL, Route: SUB-Q, Drug form: SOLN, Bedtime, Dosing Weight 50, kg, P RN Blood Glucose Results, Start date: 05/31/20 14:48:00 CDT, Duration: 30 day, S top date: 06/30/20 14:47:00 CDT, 0 Notes: (Same as: Humalog) Roll in palms of hands gently; Do not shake vigorously . WASTE: F/P - Black; E - [employer] Trash BinStable for 28 days at [facility].Expires in days from Date Start Date: 05/31/20 Stop Date: 06/07/20 Status: Discontinued insulin lispro 4 unit, 0.04 mL, Route: SUB-Q, Drug form: SOLN, Bedtime, Dosing Weight 50, kg, P RN Blood Glucose Results, Start date: 05/31/20 14:48:00 CDT, Duration: 30 day, S top date: 06/30/20 14:47:00 CDT, 0 Notes: (Same as: Humalog) Roll in palms of hands gently; Do not shake vigorously . WASTE: F/P - Black; E - Municipal Trash BinStable for 28 days at [facility].Expires in days from Date Start Date: 05/31/20 Stop Date: 06/07/20 Status: Discontinued Insulin Lispro KwikPen 100 units/mL injectable solution See Instructions, Give 3 unit SUB-Q TID-Before Meals 15 minutes before or immedi ately after a meal if blood glucose is greater than 200, # 3 mL, 0 Refill(s), Ph armacy: [facility] #[id number], 157.48, cm, 05/31/20 7:16:00 CDT, Height, 5 0, kg, 08/... Start Date: 06/07/20 Status: Ordered labetalol 20 mg, Route: IVP, Drug form: INJ, ONCE, Dosing Weight 50, kg, Priority: STAT, S tart date: 06/04/20 14:37:00 CDT, Stop date: 06/04/20 14:37:00 CDT Start Date: 06/04/20 Stop Date: 06/04/20 Status: Discontinued Lovenox 30 mg, 0.3 mL, Route: SUB-Q, Drug form: INJ, [id number], Dosing Weight 50, kg, For CrCl <30mL/min, Start date: 06/03/20 15:00:00 CDT, Duration: 30 day, Stop date: 07/02/20 15:00:00 CDT, 0 Notes: (Same as: Lovenox) Start Date: 06/03/20 Stop Date: 06/07/20 Status: Discontinued metoprolol tartrate 12.5 mg, 0.5 tab, Route: PO, Drug form: TAB, Q12H, Dosing Weight 50, kg, Start d ate: 06/04/20 21:00:00 CDT, Duration: 30 day, Stop date: 07/04/20 9:00:00 CDT, 0 Notes: (Same as: Lopressor) Start Date: 06/04/20 Stop Date: 06/07/20 Status: Discontinued metoprolol tartrate 25 mg oral tablet 12.5 mg = 0.5 tab, PO, BID, # 30 tab, 1 Refill(s), Pharmacy: [facility] #[id number], 157.48, cm, 05/31/20 7:16:00 CDT, Height, 50, kg, 05/31/20 7:16:00 CDT , Weight Start Date: 06/07/20 Status: Ordered nitroglycerin 0.4 mg sublingual tablet 0.4 mg, 0, Route: SL, Drug form: TAB, ONCE, Dosing Weight 50, kg, PRN Chest Pain , Start date: 06/04/20 14:37:00 CDT Start Date: 06/04/20 Stop Date: 06/04/20 Status: Discontinued ondansetron 4 mg, 2 mL, Route: IVP, Drug form: INJ, Q8H, Dosing Weight 50, kg, PRN Nausea & Vomiting, Start date: 05/31/20 11:11:00 CDT, Duration: 30 day, Stop date: 06/30 11:10:00 CDT, 0 Notes: (Same as: Rosanne) MEDICATION WASTE Product Size: 4 mgProduct Was lorena: ___ mg Start Date: 05/31/20 Stop Date: 06/07/20 Status: Discontinued ranolazine 500 mg oral tablet, extended release 500 mg = 1 tab, PO, Daily, # 30 tab, 0 Refill(s), Pharmacy: [facility] #[id number], 157.48, cm, 05/31/20 7:16:00 CDT, Height, 50, kg, 05/31/20 7:16:00 CDT, Weight Start Date: 06/07/20 Status: Ordered Saline Flush 0.9% 10 mL, Route: IVP, Drug Form: INJ, Dosing Weight 50, kg, PRN, PRN Line Flush, St art date: 05/31/20 7:34:00 CDT, Duration: 30 day, Stop date: 06/30/20 7:33:00 CD T, 0 Notes: (Same as: BD Posiflush) Start Date: 05/31/20 Stop Date: 06/07/20 Status: Discontinued Results 1 2 3 Most recent to oldest [Reference Range]: 2.6 K/CMM (06/07/20 8:00 AM) 3.4 K/CMM (06/02/20 8:43 AM) 3.8 K/CMM (06/01/20 4:22 AM) Neutrophils # [1.5-8.1 K/CMM] 1.3 K/CMM (06/07/20 8:00 AM) 1.1 K/CMM (06/02/20 8:43 AM) 1.2 K/CMM (06/01/20 4:22 AM) Lymphocytes # [1.0-5.5 K/CMM] 0.6 K/CMM (06/07/20 8:00 AM) 0.6 K/CMM (06/02/20 8:43 AM) 0.7 K/CMM (06/01/20 4:22 AM) Monocytes # [0.0-0.8 K/CMM] 0.6 K/CMM *HI* (06/07/20 8:00 AM) 0.4 K/CMM (06/02/20 8:43 AM) 0.4 K/CMM (06/01/20 4:22 AM) Eosinophils # [0.0-0.5 K/CMM] 5 mL/min/1.73m2 1 *NA* (06/07/20 8:00 AM) 8 mL/min/1.73m2 2 *NA* (06/02/20 8:43 AM) 14 mL/min/1.73m2 3 *NA* (06/01/20 4:22 AM) eGFR See Note *NA* (05/31/20 8:32 AM) UDS Note 0.7 (06/02/20 8:43 AM) 0.7 (05/31/20 8:32 AM) A/G Ratio [0.7-1.6] 3.5 g/dL (06/02/20 8:43 AM) 3.5 g/dL (05/31/20 8:32 AM) Albumin Lvl [3.5-5.0 g/dL] 146 unit/L *HI* (06/02/20 8:43 AM) 136 unit/L (05/31/20 8:32 AM) Alk Phos [39-136 unit/L] 31 unit/L (06/02/20 8:43 AM) 25 unit/L (05/31/20 8:32 AM) ALT [0-65 unit/L] 21.0 uMol/L (05/31/20 8:32 AM) Ammonia [<=45.0 uMol/L] Negative *NA* (05/31/20 8:32 AM) U Amph Scr [Negative] 11.9 mEq/L (06/07/20 8:00 AM) 12.4 mEq/L (06/02/20 8:43 AM) 10.9 mEq/L (06/01/20 4:22 AM) AGAP [10.0-20.0 mEq/L] 50 unit/L *HI* (06/02/20 8:43 AM) 40 unit/L *HI* (05/31/20 8:32 AM) AST [0-37 unit/L] 6 (06/02/20 8:43 AM) 6 (05/31/20 8:32 AM) B/C Ratio [6-25] Negative *NA* (05/31/20 8:32 AM) U Fariha Scr [Negative] 0.6 % (06/07/20 8:00 AM) 0.6 % (06/02/20 8:43 AM) 0.5 % (06/01/20 4:22 AM) Basophils [0.0-1.0 %] Negative *NA* (05/31/20 8:32 AM) U Benzodiaz Scr [Negative] 32 mg/dL *HI* (06/07/20 8:00 AM) 34 mg/dL *HI* (06/02/20 8:43 AM) 13 mg/dL (06/01/20 4:22 AM) BUN [7-22 mg/dL] 8.9 mg/dL (06/07/20 8:00 AM) 9.1 mg/dL (06/02/20 8:43 AM) 9.0 mg/dL (06/01/20 4:22 AM) Calcium Lvl [8.5-10.5 mg/dL] 99 mEq/L (06/07/20 8:00 AM) 101 mEq/L (06/02/20 8:43 AM) 102 mEq/L (06/01/20 4:22 AM) Chloride Lvl [95-109 mEq/L] 28 mEq/L (06/07/20 8:00 AM) 30 mEq/L (06/02/20 8:43 AM) 31 mEq/L (06/01/20 4:22 AM) CO2 [24-32 mEq/L] Negative *NA* (05/31/20 8:32 AM) U Cocaine Scr [Negative] 7.03 mg/dL *HI* (06/07/20 8:00 AM) 5.25 mg/dL *HI* (06/02/20 8:43 AM) 3.20 mg/dL *HI* (06/01/20 4:22 AM) Creatinine Lvl [0.50-1.40 mg/dL] 11.8 % *HI* (06/07/20 8:00 AM) 7.6 % *HI* (06/02/20 8:43 AM) 6.8 % *HI* (06/01/20 4:22 AM) Eosinophils [0.0-4.0 %] <.003 % *NA* (05/31/20 8:32 AM) Etoh (%) <3 mg/dL *NA* (05/31/20 8:32 AM) Ethanol Lvl 4.9 g/dL *HI* (06/02/20 8:43 AM) 4.9 g/dL *HI* (05/31/20 8:32 AM) Globulin [2.7-4.2 g/dL] 145 mg/dL *HI* (06/07/20 8:00 AM) 72 mg/dL (06/02/20 8:43 AM) 67 mg/dL *LOW* (06/01/20 4:22 AM) Glucose Lvl [70-99 mg/dL] Negative *NA* (05/31/20 12:10 PM) Hep Bs Ag [Negative] 33.0 % *LOW* (06/07/20 8:00 AM) 32.9 % *LOW* (06/02/20 8:43 AM) 34.2 % *LOW* (06/01/20 4:22 AM) Hct [36.0-48.0 %] 10.8 g/dL *LOW* (06/07/20 8:00 AM) 11.0 g/dL *LOW* (06/02/20 8:43 AM) 11.5 g/dL *LOW* (06/01/20 4:22 AM) Hgb [12.0-16.0 g/dL] <3.5 % (05/31/20 8:32 AM) Hgb A1C [<=5.6 %] 1.11 (05/31/20 8:32 AM) INR [0.85-1.17] 3.9 mEq/L (06/07/20 8:00 AM) 4.4 mEq/L (06/02/20 8:43 AM) 3.9 mEq/L (06/01/20 4:22 AM) Potassium Lvl [3.5-5.1 mEq/L] 25.1 % (06/07/20 8:00 AM) 19.9 % *LOW* (06/02/20 8:43 AM) 20.1 % (06/01/20:22 AM) Lymphocytes [20.0-40.0 %] 31.5 pg *HI* (06/07/20 8:00 AM) 32.4 pg *HI* (06/02/20 8:43 AM) 32.6 pg *HI* (06/01/20:22 AM) MCH [27.0-31.0 pg] 32.8 g/dL (06/07/20 8:00 AM) 33.5 g/dL (06/02/20 8:43 AM) 33.5 g/dL (06/01/20:22 AM) MCHC [32.0-36.0 g/dL] 95.9 fL (06/07/20 8:00 AM) 96.6 fL (06/02/20 8:43 AM) 97.2 fL (06/01/20:22 AM) MCV [80.0-98.0 fL] 2.4 mg/dL (06/03/20 4:02 AM) Magnesium Lvl [1.8-2.4 mg/dL] 11.4 % (06/07/20 8:00 AM) 10.0 % (06/02/20 8:43 AM) 11.3 % (06/01/20:22 AM) Monocytes [2.0-12.0 %] 8.4 fL (06/07/20 8:00 AM) 7.6 fL (06/02/20 8:43 AM) 7.7 fL (06/01/20:22 AM) MPV [7.4-10.4 fL] 135 mEq/L (06/07/20 8:00 AM) 139 mEq/L (06/02/20 8:43 AM) 140 mEq/L (06/01/20:22 AM) Sodium Lvl [135-145 mEq/L] Negative *NA* (05/31/20 8:32 AM) U Opiate Scr [Negative] Negative *NA* (05/31/20 8:32 AM) U Phencyclidine Scr [Negative] 2.8 mg/dL (06/03/20 4:02 AM) Phosphorus [2.5-4.5 mg/dL] 147 K/CMM (06/07/20 8:00 AM) 162 K/CMM (06/02/20 8:43 AM) 144 K/CMM (06/01/20 4:22 AM) Platelet [133-450 K/CMM] 51.1 % (06/07/20 8:00 AM) 61.9 % (06/02/20 8:43 AM) 61.3 % (06/01/20 4:22 AM) Segs [45.0-75.0 %] 16.2 ng/mL 4 *NA* (06/04/20 4:40 PM) Prolactin Lvl 8.4 g/dL (06/02/20 8:43 AM) 8.4 g/dL (05/31/20 8:32 AM) Total Protein [6.4-8.4 g/dL] 14.4 seconds (05/31/20 8:32 AM) PT [12.0-14.7 seconds] 31.2 seconds (05/31/20 8:32 AM) PTT [22.9-35.8 seconds] 3.44 M/CMM *LOW* (06/07/20 8:00 AM) 3.40 M/CMM *LOW* (06/02/20 8:43 AM) 3.52 M/CMM *LOW* (06/01/20 4:22 AM) RBC [4.20-5.40 M/CMM] 14.4 % (06/07/20 8:00 AM) 14.6 % *HI* (06/02/20 8:43 AM) 14.7 % *HI* (06/01/20 4:22 AM) RDW [11.5-14.5 %] Non Reactive (06/02/20 8:43 AM) RPR [Non Reactive] 0.8 mg/dL (06/02/20 8:43 AM) 0.7 mg/dL (05/31/20 8:32 AM) Bili Total [0.2-1.3 mg/dL] Negative *NA* (05/31/20 8:32 AM) U Cannab Scr [Negative] <0.02 ng/mL (06/04/20 3:02 PM) <0.02 ng/mL (05/31/20 8:32 AM) Troponin-I [0.00-0.40 ng/mL] Negative *NA* (05/31/20 8:32 AM) UA Bili [Negative] Negative (05/31/20 8:32 AM) UA Blood [Negative] Yellow *NA* (05/31/20 8:32 AM) UA Color [Yellow] Negative (05/31/20 8:32 AM) UA Glucose [Negative] Negative *NA* (05/31/20 8:32 AM) UA Ketones [Negative] Negative (05/31/20 8:32 AM) UA Leuk Est [Negative] Negative (05/31/20 8:32 AM) UA Nitrite [Negative] 8.5 *HI* (05/31/20 8:32 AM) UA pH [5.0-8.0] 100 mg/dL *ABN* (05/31/20 8:32 AM) UA Protein [Negative mg/dL] 1.015 (05/31/20 8:32 AM) UA Spec Grav [<=1.030] None Seen (05/31/20 8:32 AM) UA Sq Epi [Few] Clear (05/31/20 8:32 AM) UA Turbidity [Clear] 0.2 EU/dL (05/31/20 8:32 AM) UA Urobilinogen [0.1-1.0 EU/dL] 5.0 K/CMM (06/07/20 8:00 AM) 5.5 K/CMM (06/02/20 8:43 AM) 6.2 K/CMM (06/01/20 4:22 AM) WBC [3.7-10.4 K/CMM] 1Result Comment: The [...] tiplied by the estimated BMI. 4Result Comment: Reference Range Females Non- 3.0-30.0 10.0-209.0 Postmenopausal 2.0-20.0 Lab test performed by: [facility] [address] [address] GIANNA MCPHERSON MD Immunizations Given and Recorded Vaccine Date Status Refusal Reason pneumococcal 13-valent vaccine 01/16/17 Given influenza virus vaccine, inactivated 01/16/17 G iven pneumococcal 23-valent vaccine 02/18/16 Given Procedures Procedure Date Related Diagnosis Body Site Status Abdominal hysterectomy Completed CABG x 1 - Coronary artery bypass graft x 1 Compl eted Cholecystectomy1 Completed Cholecystotomy Completed Eye care Completed 42744 Social History Social History Type Response Alcohol Never Substance Abuse Use: None. Smoking Status Never smoker; Ready to kitchen ge: Yes; Concerns about tobacco use in household: Yes; Exposure to Tobacco Smo ke None; Cigarette Smoking Last 365 Days Yes; Reg Smoking Cessation Medical Research Assistant ing Yes entered on: 05/31/20 Assessment and Plan Extracted from: Title: Progress Note Author: Jacek Gutierrez MD Date: 06/07/20 1.Altered mental status(R4 1.82) 2.ESRD on dialysis(N18.6) 3.HTN (hypertension)(I10) 4.Chronic low back pain(M54.5) 5.Closed L1 vertebral fracture(S32.019A) 6.Alzheimer disease(G30.9) 7.CKD (chronic kidney disease) stage 4, GFR 15-29 ml/min(N18.4) 8.Coronary artery disease(I25.10) ESRD Anemia Hep C DM HTN doing ok Patient is on maintenance HD on MWF schedule off epo as Hb >10 continue current meds cont hd and uf as tolerated Extracted from: Title: Clinical Document Author: Gianluca Franklin MD Date: [...] examination, unreliable. Coordination: Has mild asterixis on [id number]. Deep tendon reflexes trace. CT OF HEAD [...] medical problem Correct underlying electrolyte derangement Extracted from: Title: History and Physical Author: Afshan Marcelo MD Date: 05/31/20 10-hibz-[id number] history ofhy pertension, diabetes, CAD status post CABG,ESRD Sunday, hepatitis [...] is pending. 2. Hypertension. Her blood pressures currently well controlled. Will order. Hydralazine continue to monitor. 3. Diabetes.Will order hemoglobin A1C. I will also ordersliding scale Brit will continue to monitor. 4. CAD status post CABG. Will contin ue clopidogrel, statin 5. ESRD on hemodialysisSunday. We will consult nephrologyfor scheduled hemodialysis. 6. History of CVA. Continue clopidogre l, statin 7. History of hepatitis C. SCD, clopidogrel Pending Neurology consult
--- OUTSIDE RECORDS SUMMARY | 2020-06-17 13:09 | XMS REPORT | Summary of Care ---
Author Author [facility] Organization [facility] Address Unknown Phone Unavailable Encounter ISRAEL Schroeder(MALOU) [id number] Date(s): 12/05/19 - 12/05/19 [facility] [address] [place] [address]- Discharge Disposition: Non emergent Paid Attending Physician: Luis Eduardo Negro MD Vital Signs Most recent to 1 oldest [Reference Range]: Height 152.4 cm (12/05/19 12:05 PM) Temperature Oral 99.5 DegF [96.4-99.1 DegF] *HI* (12/05/19 12:05 PM) Blood Pressure 117/58 mmHg [90-140/60-90 mmHg] (12/05/19 12:05 PM) Respiratory Rate 18 BRMIN [14-20 BRMIN] (12/05/19 12:05 PM) Peripheral Pulse 72 bpm Rate [60-100 bpm] (12/05/19 12:05 PM) Weight 58.636 kg (12/05/19 12:05 PM) Body Mass Index 25.25 m2 (12/05/19 12:05 PM) Problem List Condition Effective Dates Status Health [...] Cholecystectomy1 Completed Cholecystotomy Completed Eye care Completed 37420 Social History Social History Type Response Alcohol Never Substance Abuse Use: None. Smoking Status Never smoker; Exposure to T obacco Smoke None; Cigarette Smoking Last 365 Days No; Reg Smoking Cessation Counseli ng No entered on: 11/21/19 Assessment and Plan No data available for this section
--- OUTSIDE RECORDS SUMMARY | 2020-06-17 13:09 | XMS REPORT | Summary of Care ---
Author Author [facility] Organization [facility] Address Unknown Phone Unavailable Encounter ISRAEL Schroeder(MALOU) [id number] Date(s): 11/01/18 - 11/06/18 [facility] [address] [place] [address]- Encounter Diagnosis Sepsis, unspecified organism (Final) - 12/06/18 Unspecified bacterial pneumonia (Final) - End stage renal disease (Final) - Hypertensive chronic kidney disease with stage 5 chronic kidney disease or end s tage renal disease (Final) - Type 2 diabetes mellitus with diabetic chronic kidney disease (Final) - Unspecified viral hepatitis C without hepatic coma (Final) - Atherosclerotic heart disease of [place] coronary artery without angina pectoris (Final) - Dementia in other diseases classified elsewhere without behavioral disturbance (Final) - Alzheimer's disease, unspecified (Final) - Anemia in other chronic diseases classified elsewhere (Final) - Dependence on renal dialysis (Final) - Personal history of transient ischemic attack (TIA), and cerebral infarction wit hout residual deficits (Final) - Old myocardial infarction (Final) - Presence of aortocoronary bypass graft (Final) - Acquired absence of both cervix and uterus (Final) - Fall (on) (from) unspecified stairs and steps, initial encounter (Final) - Discharge Disposition: Home or Self Care Attending Physician: Timothy Morataya MD Admitting Physician: Timothy Morataya MD Vital Signs 1 2 3 Most recent to oldest [Reference Range]: 165.1 cm (11/01/18 11:41 PM) 152.4 cm (11/01/18 4:38 PM) Height 97.9 DegF (11/06/18 11:18 AM) 97.9 DegF (11/06/18 8:21 AM) 97.6 DegF (11/06/18 4:15 AM) Temperature Oral [96.4-99.1 DegF] 135/78 mmHg (11/06/18 11:18 AM) 156/71 mmHg *HI* (11/06/18 8:21 AM) 154/75 mmHg *HI* (11/06/18 4:15 AM) Blood Pressure [90-140/60-90 mmHg] 16 BRMIN (11/06/18 11:18 AM) 16 BRMIN (11/06/18 9:42 AM) 18 BRMIN (11/06/18 8:21 AM) Respiratory Rate [14-20 BRMIN] 61 bpm (11/06/18 11:18 AM) 63 bpm (11/06/18 8:21 AM) 68 bpm (11/06/18 4:15 AM) Peripheral Pulse Rate [60-100 bpm] 51.818 kg (11/01/18 11:41 PM) 58.182 kg (11/01/18 4:38 PM) Weight 19.01 m2 (11/01/18 11:41 PM) 25.05 m2 (11/01/18 4:38 PM) Body Mass Index Problem List Condition [...] Reactions, Alerts No Known Medication Allergies Medications albuterol 0.083% inhalation solution 2.49 mg, 3 mL, Route: NEB, Drug form: SOLN, PRN, Dosing Weight 51.818, kg, PRN R espiratory Pathway, Start date: 11/03/18 3:11:00 PARTS MANAGER, Duration: 30 day, Stop srinivas e: 12/03/18 3:10:00 PARTS MANAGER Notes: SEE RT DOCUMENTATION (Same as: Rj) Start Date: 11/03/18 Stop Date: 11/06/18 Status: Discontinued aspirin 81 mg tablet, enteric coated 81 mg, 1 tab, Route: PO, Drug form: ECTAB, Daily, Dosing Weight 51.818, kg, Star t date: 11/03/18 17:00:00 PARTS MANAGER, Duration: 30 day, Stop date: 12/03/18 9:00:00 PARTS MANAGER Notes: Do not crush or chew.(Same As: Ecotrin) Start Date: 11/03/18 Stop Date: 11/06/18 Status: Discontinued atorvastatin 40 mg, 1 tab, Route: PO, Drug form: TAB, Bedtime, Dosing Weight 51.818, kg, Star t date: 11/03/18 21:00:00 PARTS MANAGER, Duration: 30 day, Stop date: 12/02/18 21:00:00 CS T Notes: (Same as: Lipitor) Start Date: 11/03/18 Stop Date: 11/06/18 Status: Discontinued azithromycin + Sodium Chloride 0.9% IV 250 mL 500 mg, Route: IVPB, [id number], Dosing Weight 51.818, kg, Start date: 11/02/18 1:0 0:00 PARTS MANAGER, Duration: 3 day, Stop date: 11/04/18 1:00:00 PARTS MANAGER, ABX Indication: Pneu monia Notes: (Same As: Zithromax IV) Start Date: 11/02/18 Stop Date: 11/04/18 Status: Completed cefTRIAXone + sterile water 10 mL 1 gm, Route: IV, [id number], Dosing Weight 51.818, kg, Start date: 11/02/18 1:00:00 PARTS MANAGER, Duration: 7 day, Stop date: 11/08/18 1:00:00 PARTS MANAGER, ABX Indication: Pneumonia Notes: (Same As: Rocephin).Use with 100 mL NS and infuse over 30 min MEDICA TION WASTE Product Size: 1000 mgProduct Wasted: ___ mg Start Date: 11/02/18 Stop Date: 11/05/18 Status: Discontinued clopidogrel 75 mg, 1 tab, Route: PO, Drug form: TAB, Daily, Dosing Weight 51.818, kg, Start date: 11/04/18 9:00:00 PARTS MANAGER, Duration: 30 day, Stop date: 12/03/18 9:00:00 PARTS MANAGER Notes: (Same As: Plavix) Start Date: 11/04/18 Stop Date: 11/06/18 Status: Discontinued Dextrose 50% Syringe 25 gm, 50 mL, Route: IVP, Drug Form: INJ, Dosing Weight 51.818, kg, PRN, PRN Blo od Glucose Results, Start date: 11/02/18 14:59:00 PARTS MANAGER, Duration: 30 day, Stop da te: 12/02/18 14:58:00 PARTS MANAGER Start Date: 11/02/18 Stop Date: 11/06/18 Status: Discontinued Dextrose 50% Syringe 12.5 gm, 25 mL, Route: IVP, Drug Form: INJ, Dosing Weight 51.818, kg, PRN, PRN B lood Glucose Results, Start date: 11/02/18 14:59:00 PARTS MANAGER, Duration: 30 day, Stop date: 12/02/18 14:58:00 PARTS MANAGER Start Date: 11/02/18 Stop Date: 11/06/18 Status: Discontinued Epogen 2,000 unit, 1 mL, Route: IVP, Drug form: INJ, Q---, Dosing Weight 51.818, kg, Start date: 11/05/18 17:00:00 PARTS MANAGER, Duration: 30 day, Stop date: 12/03/18 17: 00:00 PARTS MANAGER Notes: (Same as: Procrit) epoetin kathy 2000 unit/1 ml VLFor dialysis use only (E pogen)WASTE: F/P - Red; E -Red MEDICATION WASTE Product Size: 2000 mgPr oduct Wasted: ___ mg Start Date: 11/05/18 Stop Date: 11/06/18 Status: Discontinued escitalopram 10 mg, 1 tab, Route: PO, Drug form: TAB, Daily, Dosing Weight 51.818, kg, Start date: 11/04/18 9:00:00 PARTS MANAGER, Duration: 30 day, Stop date: 12/03/18 9:00:00 PARTS MANAGER Notes: (Same as: Lexapro) Start Date: 11/04/18 Stop Date: 11/06/18 Status: Discontinued furosemide 40 mg, 4 mL, Route: IV, Drug form: INJ, BID, Dosing Weight 51.818, kg, Start srinivas e: 11/03/18 17:00:00 PARTS MANAGER, Duration: 30 day, Stop date: 12/03/18 9:00:00 PARTS MANAGER Notes: (Same as: Lasix) MEDICATION WASTE Product Size: 40 mgProduct Was lorena: ___ mg Start Date: 11/03/18 Stop Date: 11/06/18 Status: Discontinued gabapentin 100 mg oral capsule 100 mg, 1 cap, Route: PO, Drug form: CAP, Daily, Dosing Weight 51.818, kg, Start date: 11/04/18 9:00:00 PARTS MANAGER, Duration: 30 day, Stop date: 12/03/18 9:00:00 PARTS MANAGER Notes: (Same as: Neurontin) Start Date: 11/04/18 Stop Date: 11/06/18 Status: Discontinued gabapentin 100 mg oral capsule 100 mg = 1 cap, PO, Bedtime, 0 Refill(s) Start Date: 11/03/18 Status: Ordered glucagon 1 mg, Route: IM, Drug form: PDR/INJ, PRN, Dosing Weight 51.818, kg, PRN Blood Gl ucose Results, Start date: 11/02/18 14:59:00 PARTS MANAGER, Duration: 30 day, Stop date: 0 12/02/18 14:58:00 PARTS MANAGER Start Date: 11/02/18 Stop Date: 11/06/18 Status: Discontinued guaiFENesin 200 mg, 10 mL, Route: PO, Drug form: LIQ, Q4H, Dosing Weight 51.818, kg, PRN Cou gh, Start date: 11/02/18 0:40:00 PARTS MANAGER, Duration: 30 day, Stop date: 12/02/18 0:39 :00 PARTS MANAGER Notes: (Same as: La) Start Date: 11/02/18 Stop Date: 11/06/18 Status: Discontinued heparin 5000 units/mL injectable solution 5,000 unit, 1 mL, Route: SUB-Q, Drug form: INJ, Q12H, Dosing Weight 51.818, kg, Start date: 11/05/18 21:00:00 PARTS MANAGER, Duration: 30 day, Stop date: 12/05/18 9:00:00 PARTS MANAGER Notes: porcine heparin Start Date: 11/05/18 Stop Date: 11/06/18 Status: Discontinued insulin lispro Route: SUB-Q, Drug form: SOLN, TID-Before Meals, Dosing Weight 51.818, kg, Start date: 11/04/18 7:30:00 PARTS MANAGER, Duration: 30 day, Stop date: 12/03/18 16:30:00 PARTS MANAGER Start Date: 11/04/18 Stop Date: 11/03/18 Status: Deleted insulin lispro 2 unit, 0.02 mL, Route: SUB-Q, Drug form: SOLN, Bedtime, Dosing Weight 51.818, k g, PRN Blood Glucose Results, Start date: 11/02/18 14:59:00 PARTS MANAGER, Duration: 30 da y, Stop date: 12/02/18 14:58:00 PARTS MANAGER Notes: (Same as: Humalog ) Roll in palms of hands gently; Do not shake `vigorou sly. "Single Patient Use Only " WASTE: F/P - Black; E - [employer] [address] able for 28 days at room temperature.Expires in days from Da te Start Date: 11/02/18 Stop Date: 11/06/18 Status: Discontinued insulin lispro 4 unit, 0.04 mL, Route: SUB-Q, Drug form: SOLN, Bedtime, Dosing Weight 51.818, k g, PRN Blood Glucose Results, Start date: 11/02/18 14:59:00 PARTS MANAGER, Duration: 30 da y, Stop date: 12/02/18 14:58:00 PARTS MANAGER Notes: (Same as: Humalog ) Roll in palms of hands gently; Do not shake `vigorou sly. "Single Patient Use Only " WASTE: F/P - Black; E - [facility] [employer] [address] able for 28 days at room temperature.Expires in days from Da te Start Date: 11/02/18 Stop Date: 11/06/18 Status: Discontinued insulin lispro 1 unit, 0.01 mL, Route: SUB-Q, Drug form: SOLN, Bedtime, Dosing Weight 51.818, k g, PRN Blood Glucose Results, Start date: 11/02/18 14:59:00 PARTS MANAGER, Duration: 30 da y, Stop date: 12/02/18 14:58:00 PARTS MANAGER Notes: (Same as: Humalog ) Roll in palms of hands gently; Do not shake `vigorou sly. "Single Patient Use Only " WASTE: F/P - Black; E - [facility] [address] [address] able for 28 days at room temperature.Expires in days from Da te Start Date: 11/02/18 Stop Date: 11/06/18 Status: Discontinued insulin lispro 3 unit, 0.03 mL, Route: SUB-Q, Drug form: SOLN, Bedtime, Dosing Weight 51.818, k g, PRN Blood Glucose Results, Start date: 11/02/18 14:59:00 PARTS MANAGER, Duration: 30 da y, Stop date: 12/02/18 14:58:00 PARTS MANAGER Notes: (Same as: Humalog ) Roll in palms of hands gently; Do not shake `vigorou sly. "Single Patient Use Only " WASTE: F/P - Black; E - [facility] [address] [address] able for 28 days at room temperature.Expires in days from Da te Start Date: 11/02/18 Stop Date: 11/06/18 Status: Discontinued insulin lispro 3 unit, 0.03 mL, Route: SUB-Q, Drug form: SOLN, TID-Before Meals, Dosing Weight 51.818, kg, PRN Blood Glucose Results, Start date: 11/02/18 14:59:00 PARTS MANAGER, Durati on: 30 day, Stop date: 12/02/18 14:58:00 PARTS MANAGER Notes: (Same as: Humalog ) Roll in palms of hands gently; Do not shake `vigorou sly. "Single Patient Use Only " WASTE: F/P - Black; E - [facility] [address] [address] able for 28 days at room temperature.Expires in days from Da te Start Date: 11/02/18 Stop Date: 11/06/18 Status: Discontinued insulin lispro 5 unit, 0.05 mL, Route: SUB-Q, Drug form: SOLN, TID-Before Meals, Dosing Weight 51.818, kg, PRN Blood Glucose Results, Start date: 11/02/18 14:59:00 PARTS MANAGER, Durati on: 30 day, Stop date: 12/02/18 14:58:00 PARTS MANAGER Notes: (Same as: Humalog ) Roll in palms of hands gently; Do not shake `vigorou sly. "Single Patient Use Only " WASTE: F/P - Black; E - [facility] [address] [address] able for 28 days at room temperature.Expires in days from Da te Start Date: 11/02/18 Stop Date: 11/06/18 Status: Discontinued insulin lispro 4 unit, 0.04 mL, Route: SUB-Q, Drug form: SOLN, TID-Before Meals, Dosing Weight 51.818, kg, PRN Blood Glucose Results, Start date: 11/02/18 14:59:00 PARTS MANAGER, Durati on: 30 day, Stop date: 12/02/18 14:58:00 PARTS MANAGER Notes: (Same as: Humalog ) Roll in palms of hands gently; Do not shake `vigorou sly. "Single Patient Use Only " WASTE: F/P - Black; E - [facility] [address] [address] able for 28 days at room temperature.Expires in days from Da te Start Date: 11/02/18 Stop Date: 11/06/18 Status: Discontinued insulin lispro 1 unit, 0.01 mL, Route: SUB-Q, Drug form: SOLN, TID-Before Meals, Dosing Weight 51.818, kg, PRN Blood Glucose Results, Start date: 11/02/18 14:59:00 PARTS MANAGER, Durati on: 30 day, Stop date: 12/02/18 14:58:00 PARTS MANAGER Notes: (Same as: Humalog ) Roll in palms of hands gently; Do not shake `vigorou sly. "Single Patient Use Only " WASTE: F/P - Black; E - [facility] [address] [address] able for 28 days at room temperature.Expires in days from Da te Start Date: 11/02/18 Stop Date: 11/06/18 Status: Discontinued insulin lispro 2 unit, 0.02 mL, Route: SUB-Q, Drug form: SOLN, TID-Before Meals, Dosing Weight 51.818, kg, PRN Blood Glucose Results, Start date: 11/02/18 14:59:00 PARTS MANAGER, Durati on: 30 day, Stop date: 12/02/18 14:58:00 PARTS MANAGER Notes: (Same as: Humalog ) Roll in palms of hands gently; Do not shake `vigorou sly. "Single Patient Use Only " WASTE: F/P - Black; E - [facility] [address] [address] able for 28 days at room temperature.Expires in days from Da te Start Date: 11/02/18 Stop Date: 11/06/18 Status: Discontinued Levaquin 500 mg, 100 mL, Route: IVPB, Drug form: SOLN, ONCE, Dosing Weight 58.182, kg, St art date: 11/01/18 21:07:00 PARTS MANAGER, Stop date: 11/01/18 21:07:00 PARTS MANAGER, ABX Indicatio n: Pneumonia Notes: (Same as:Levaquin) Start Date: 11/01/18 Stop Date: 11/01/18 Status: Completed Lopressor 25 mg, 1 tab, Route: PO, Drug form: TAB, Q12H, Dosing Weight 51.818, kg, Start d ate: 11/03/18 21:00:00 PARTS MANAGER, Duration: 30 day, Stop date: 12/03/18 9:00:00 PARTS MANAGER Notes: (Same as: Lopressor) Start Date: 11/03/18 Stop Date: 11/06/18 Status: Discontinued Merrem + Sodium Chloride 0.9% IV 100 mL 500 mg, Route: IV, Q24H, Dosing Weight 51.818, kg, Start date: 11/05/18 10:00:00 PARTS MANAGER, Duration: 30 day, Stop date: 12/04/18 10:00:00 PARTS MANAGER, ABX Indication: Genital Tract Infection Notes: Same as Merrem MEDICATION WASTE Product Size: 500 mgProduct Wast ed: ___ mg Start Date: 11/05/18 Stop Date: 11/06/18 Status: Discontinued metoprolol tartrate 25 mg oral tablet 25 mg = 1 tab, PO, BID, 0 Refill(s) Start Date: 11/03/18 Stop Date: 03/01/19 Status: Discontinued morphine 0.5 mg/mL preservative-free injectable solution 2 mg, 1 mL, Route: IVP, Drug form: SOLN, Q3H, Dosing Weight 51.818, kg, PRN Pain Score 6-10, Start date: 11/02/18 18:13:00 PARTS MANAGER, Duration: 30 day, Stop date: 02/14 18:12:00 PARTS MANAGER Start Date: 11/02/18 Stop Date: 11/06/18 Status: Discontinued morphine Sulfate 4 mg, Route: IVP, ONCE, Dosing Weight 58.182, kg, Priority: STAT, Start date: 21:06:00 PARTS MANAGER, Stop date: 11/01/18 21:06:00 PARTS MANAGER Start Date: 11/01/18 Stop Date: 11/01/18 Status: Completed [place] 10/325 oral tablet 1 tab, Route: PO, Drug Form: TAB, Dosing Weight 58.182, kg, ONCE, STAT, Start da te: 11/01/18 22:47:00 PARTS MANAGER, Stop date: 11/01/18 22:47:00 PARTS MANAGER Start Date: 11/01/18 Stop Date: 11/01/18 Status: Completed [place] 5/325 oral tablet 1 tab, Route: PO, Drug Form: TAB, Dosing Weight 51.818, kg, Q4H, PRN Pain Score 1-3, Start date: 11/02/18 6:19:00 PARTS MANAGER, Duration: 30 day, Stop date: 12/02/18 6:1 8:00 PARTS MANAGER Notes: (Same as: [place] 325/5) Do not exceed 4gm/day of acetaminophen. Start Date: 11/02/18 Stop Date: 11/06/18 Status: Discontinued ondansetron 4 mg, 2 mL, Route: IVP, Drug form: INJ, Q6H, Dosing Weight 51.818, kg, PRN Nause a & Vomiting, Start date: 11/02/18 0:40:00 PARTS MANAGER, Duration: 30 day, Stop date: 12/02/18 0:39:00 PARTS MANAGER Notes: (Same as: Rosanne) MEDICATION WASTE Product Size: 4 mgProduct Was lorena: ___ mg Start Date: 11/02/18 Stop Date: 11/06/18 Status: Discontinued pantoprazole 40 mg, 1 tab, Route: PO, Drug form: ECTAB, Before Breakfast, Dosing Weight 51.81 8, kg, Start date: 11/04/18 7:30:00 PARTS MANAGER, Duration: 30 day, Stop date: 12/03/18 7 :30:00 PARTS MANAGER Notes: Tablet should not be chewed or crushed.(Same as: Protonix) Start Date: 11/04/18 Stop Date: 11/06/18 Status: Discontinued Vantin 200 mg oral tablet 200 mg = 1 tab, PO, Q24H, X 5 day, # 5 tab, 0 Refill(s) Start Date: 11/06/18 Stop Date: 11/11/18 Status: Completed Zofran 4 mg, Route: IVP, Drug form: INJ, ONCE, Dosing Weight 58.182, kg, Priority: STAT , Start date: 11/01/18 21:07:00 PARTS MANAGER, Stop date: 11/01/18 21:07:00 PARTS MANAGER Start Date: 11/01/18 Stop Date: 11/01/18 Status: Completed Results 1 2 3 Most recent to oldest [Reference Range]: 0.40 ng/mL *HI* (11/02/18 12:52 AM) Procalcitonin Lvl [0.00-0.10 ng/mL] 2.2 K/CMM (11/05/18 9:50 AM) 2.8 K/CMM (11/03/18 6:30 AM) 5.7 K/CMM (11/01/18 7:47 PM) Neutrophils # [1.5-8.1 K/CMM] 0.9 K/CMM *LOW* (11/05/18 9:50 AM) 1.4 K/CMM (11/03/18 6:30 AM) 1.5 K/CMM (11/01/18 7:47 PM) Lymphocytes # [1.0-5.5 K/CMM] 0.2 K/CMM (11/05/18 9:50 AM) 0.7 K/CMM (11/03/18 6:30 AM) 0.7 K/CMM (11/01/18 7:47 PM) Monocytes # [0.0-0.8 K/CMM] 0.2 K/CMM (11/05/18 9:50 AM) 0.3 K/CMM (11/03/18 6:30 AM) 0.3 K/CMM (11/01/18 7:47 PM) Eosinophils # [0.0-0.5 K/CMM] 0.1 K/CMM (11/01/18 7:47 PM) Basophils # [0.0-0.2 K/CMM] Urine *NA* (11/01/18 10:06 PM) Source Strep Negative (11/01/18 10:06 PM) Strep pneumoniae Ag [Negative] 14 mL/min/1.73m2 1 *NA* (11/05/18 9:50 AM) 13 mL/min/1.73m2 2 *NA* (11/03/18 6:30 AM) 14 mL/min/1.73m2 3 *NA* (11/01/18 7:47 PM) eGFR Negative (11/02/18 1:32 AM) Influ A [Negative] Negative (11/02/18 1:32 AM) Influ B [Negative] 0.6 *LOW* (11/01/18 7:47 PM) A/G Ratio [0.7-1.6] 3.1 g/dL *LOW* (11/01/18 7:47 PM) Albumin Lvl [3.5-5.0 g/dL] 275 unit/L *HI* (11/01/18 7:47 PM) Alk Phos [39-136 unit/L] 26 unit/L (11/01/18 7:47 PM) ALT [0-65 unit/L] 12.9 mEq/L (11/05/18 9:50 AM) 12.0 mEq/L (11/03/18 6:30 AM) 11.5 mEq/L (11/01/18 7:47 PM) AGAP [10.0-20.0 mEq/L] 41 unit/L *HI* (11/01/18 7:47 PM) AST [0-37 unit/L] 10 (11/01/18 7:47 PM) B/C Ratio [6-25] 0.5 % (11/05/18 9:50 AM) 0.4 % (11/03/18 6:30 AM) 0.7 % (11/01/18 7:47 PM) Basophils [0.0-1.0 %] 41 mg/dL *HI* (11/05/18 9:50 AM) 26 mg/dL *HI* (11/03/18 6:30 AM) 32 mg/dL *HI* (11/01/18 7:47 PM) BUN [7-22 mg/dL] 7.9 mg/dL *LOW* (11/05/18 9:50 AM) 8.4 mg/dL *LOW* (11/03/18 6:30 AM) 8.8 mg/dL (11/01/18 7:47 PM) Calcium Lvl [8.5-10.5 mg/dL] 104 mEq/L (11/05/18 9:50 AM) 104 mEq/L (11/03/18 6:30 AM) 96 mEq/L (11/01/18 7:47 PM) Chloride Lvl [95-109 mEq/L] 28 mEq/L (11/05/18 9:50 AM) 29 mEq/L (11/03/18 6:30 AM) 32 mEq/L (11/01/18 7:47 PM) CO2 [24-32 mEq/L] 3.38 mg/dL *HI* (11/05/18 9:50 AM) 3.51 mg/dL *HI* (11/03/18 6:30 AM) 3.19 mg/dL *HI* (11/01/18 7:47 PM) Creatinine Lvl [0.50-1.40 mg/dL] 5.0 % *HI* (11/05/18 9:50 AM) 5.8 % *HI* (11/03/18 6:30 AM) 4.0 % (11/01/18 7:47 PM) Eosinophils [0.0-4.0 %] 5.4 g/dL *HI* (11/01/18 7:47 PM) Globulin [2.7-4.2 g/dL] 277 mg/dL *HI* (11/05/18 9:50 AM) 146 mg/dL *HI* (11/03/18 6:30 AM) 159 mg/dL *HI* (11/01/18 7:47 PM) Glucose Lvl [70-99 mg/dL] Negative *NA* (11/02/18 12:52 AM) Hep Bs Ag [Negative] 27.1 % *LOW* (11/05/18 9:50 AM) 28.9 % *LOW* (11/03/18 6:30 AM) 32.8 % *LOW* (11/01/18 7:47 PM) Hct [36.0-48.0 %] 9.2 g/dL *LOW* (11/05/18 9:50 AM) 9.7 g/dL *LOW* (11/03/18 6:30 AM) 11.1 g/dL *LOW* (11/01/18 7:47 PM) Hgb [12.0-16.0 g/dL] 3.9 mEq/L (11/05/18 9:50 AM) 4.0 mEq/L (11/03/18 6:30 AM) 3.5 mEq/L (11/01/18 7:47 PM) Potassium Lvl [3.5-5.1 mEq/L] 0.9 mMol/L (11/02/18 12:52 AM) 0.7 mMol/L (11/01/18 9:48 PM) Lactic Acid Lvl [0.5-2.2 mMol/L] 25.1 % (11/05/18 9:50 AM) 26.8 % (11/03/18 6:30 AM) 18.2 % *LOW* (11/01/18 7:47 PM) Lymphocytes [20.0-40.0 %] 32.0 pg *HI* (11/05/18 9:50 AM) 31.9 pg *HI* (11/03/18 6:30 AM) 31.9 pg *HI* (11/01/18 7:47 PM) MCH [27.0-31.0 pg] 33.8 g/dL (11/05/18 9:50 AM) 33.7 g/dL (11/03/18 6:30 AM) 33.9 g/dL (11/01/18 7:47 PM) MCHC [32.0-36.0 g/dL] 94.7 fL (11/05/18 9:50 AM) 94.9 fL (11/03/18 6:30 AM) 94.1 fL (11/01/18 7:47 PM) MCV [80.0-98.0 fL] 5.6 % (11/05/18 9:50 AM) 13.1 % *HI* (11/03/18 6:30 AM) 8.4 % (11/01/18 7:47 PM) Monocytes [2.0-12.0 %] 8.3 fL (11/05/18 9:50 AM) 8.2 fL (11/03/18 6:30 AM) 8.3 fL (11/01/18 7:47 PM) MPV [7.4-10.4 fL] 141 mEq/L (11/05/18 9:50 AM) 141 mEq/L (11/03/18 6:30 AM) 136 mEq/L (11/01/18 7:47 PM) Sodium Lvl [135-145 mEq/L] 143 K/CMM (11/05/18 9:50 AM) 140 K/CMM (11/03/18 6:30 AM) 153 K/CMM (11/01/18 7:47 PM) Platelet [133-450 K/CMM] 63.8 % (11/05/18 9:50 AM) 53.9 % (11/03/18 6:30 AM) 68.7 % (11/01/18 7:47 PM) Segs [45.0-75.0 %] 8.5 g/dL *HI* (11/01/18 7:47 PM) Total Protein [6.4-8.4 g/dL] 2.86 M/CMM *LOW* (11/05/18 9:50 AM) 3.05 M/CMM *LOW* (11/03/18 6:30 AM) 3.48 M/CMM *LOW* (11/01/18 7:47 PM) RBC [4.20-5.40 M/CMM] 13.1 % (11/05/18 9:50 AM) 13.2 % (11/03/18 6:30 AM) 13.1 % (11/01/18 7:47 PM) RDW [11.5-14.5 %] 1.0 mg/dL (11/01/18 7:47 PM) Bili Total [0.2-1.3 mg/dL] <0.02 ng/mL (11/01/18 9:48 PM) Troponin-I [0.00-0.40 ng/mL] Many /HPF *ABN* (11/01/18 10:06 PM) UA Bacteria [None Seen /HPF] Negative *NA* (11/01/18 10:06 PM) UA Bili [Negative] Moderate *ABN* (11/01/18 10:06 PM) UA Blood [Negative] Renate *NA* (11/01/18 10:06 PM) UA Color Negative *NA* (11/01/18 10:06 PM) UA Glucose [Negative] Trace *ABN* (11/01/18 10:06 PM) UA Ketones [Negative] Large *ABN* (11/01/18 10:06 PM) UA Leuk Est [Negative] Few /LPF *NA* (11/01/18 10:06 PM) UA Mucus [None Seen /LPF] Negative (11/01/18 10:06 PM) UA Nitrite [Negative] 5.0 (11/01/18 10:06 PM) UA pH [5.0-8.0] >=300 mg/dL *ABN* (11/01/18 10:06 PM) UA Protein [Negative mg/dL] 5 /HPF *HI* (11/01/18 10:06 PM) UA RBC [0-2 /HPF] 1.017 (11/01/18 10:06 PM) UA Spec Grav [<=1.030] Occasional /LPF *NA* (11/01/18 10:06 PM) UA Sq Epi [Few /LPF] Marked *ABN* (11/01/18 10:06 PM) UA Turbidity [Clear] <=1.0 mg/dL *NA* (11/01/18 10:06 PM) UA Urobilinogen [0.1-1.0 mg/dL] >182 /HPF *HI* (11/01/18 10:06 PM) UA WBC [0-5 /HPF] 3.4 K/CMM *LOW* (11/05/18 9:50 AM) 5.1 K/CMM (11/03/18 6:30 AM) 8.3 K/CMM (11/01/18 7:47 PM) WBC [3.7-10.4 K/CMM] Negative (11/02/18 1:32 AM) Influenza A PCR [Negative] Negative (11/02/18 1:32 AM) Influenza B PCR [Negative] Negative (11/02/18 1:32 AM) RSV PCR [Negative] Fl[employer]ed [employer] Swab (11/02/18 1:32 AM) Source Respiratory Panel PCR 1Result Comment: The eGFR is calculated using [...] the estimated BMI. Microbiology Reports TEST: Culture: Respiratory w/Gram Stain STATUS: Auth (Verified) BODY SITE: SOURCE: Sputum COLLECTED DATE/TIME: 11/03/18 7:37 PM FINAL REPORT Few Yeast Normal Respiratory Cheri Isolated STAIN REPORT Gram Stain Performed By: [facility] TEST: Culture: Urine STATUS: Auth (Verified) BODY SITE: SOURCE: Urine, Clean Catch COLLECTED DATE/TIME: 11/01/18 10:06 PM FINAL REPORT 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 Escherichia coli . This Organism Produces An Extended Spectrum Beta Lactamase (ESBL). . 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 Skin Cheri ORGANISM:Escherichia coli Immunizations Given and Recorded Vaccine Date Status Refusal Reason pneumococcal 13-valent vaccine 01/16/17 Given influenza virus vaccine, inactivated 01/16/17 G iven pneumococcal 23-valent vaccine 02/18/16 Given Procedures Procedure Date Related Diagnosis Body Site Status Abdominal hysterectomy Completed CABG x 1 - Coronary artery bypass graft x 1 Compl eted Cholecystectomy1 Completed Cholecystotomy Completed Eye care Completed 91494 Social History Social History Type Response Substance [...] s/p fall xrays neg so far PLAN & TREATMENT improving doing well dialysis in her unit in am OBJECTIVE VitalsTmp(F)Tmp(C)[id number] 11/06 11:[id number]-- ---- 11/06 09:42 1699-- ---- 11/06 08:2197.936.49frvj110/[id number]-- ---- 11/06 04:1597.636.56isba861/75---222432- ----- 11/06 00:0597.436.37dqkc287/74---143686- ----- 24 Hr Tmax: 97.9F (36.61c) at 11/06 11:1 8Vital Signs are the last 5 in the past 48 hours. 24 Hr Tmin: 97.4F (36.33c) at 11/06 00: 05Weights are the last 5 in 60 days, plus initial. DateWt(kg)Wt(lb)Ht(cm)Ht(in)MethodBMIBSA 11/01 (initial) 58.18 128.00Measured 25. 11.57 52.40 60.00Stated 24 Hr Point of Care Glucoses 11/06 1139Glucose ERW374 H 11/06 0659Glucose HQB434 H 11/06 0338Glucose URB713 H Most Recent Scores: 11/06/18Johns Duran Fall Score15 11/06/18Pain Intensity NRS (0-10)0 11/06/18Glasgow Coma Score15 11/06/18Braden Score20 Lines, Tubes, and Drains: 11/01/2018 23:47 Central Lines: Subclavi an, right Non-tunneled (most common) 11/01/2018 19:47 Peripheral Lines: Antec ubital Left 20 gauge Over the needle catheter (no surgical procedures documented) Input/Output RecordInOutBal 10/923hr Tot 104 0 104 10/823hr Tot 119 4519-1421 Scheduled Meds: None Unscheduled Meds: None PRN Meds: None One Time Meds: None Continuous Infusions: None Labs (Last four charted values) WBC L 3.4(NOV 05)5.1(NOV 03)8.3(NOV 01) Hgb L 9.2(NOV 05)L 9.7(NOV 03)L 11.1(NOV 01) Hct L 27.1(NOV 05)L 28.9(NOV 03)L 32.8(NOV 01) Plt 143(NOV 05)140(NOV 03)153(NOV 01) Na 141(NOV 05)141(NOV 03)136(NOV 01) K 3.9(NOV 05)4.0(NOV 03)3.5(NOV 01) CO2 28(NOV 05)29(NOV 03)32(NOV 01) Cl 104(NOV 05)104(NOV 03)96(NOV 01) Cr H 3.38(NOV 05)H 3.51(NOV 03)H 3.19(NOV 01) BUN H 41(NOV 05)H 26(NOV 03)H 32(NOV 01) Glucose Random H 277(NOV 05)H 146(NOV 03)H 159(NOV 01) Ca L 7.9(NOV 05)L 8.4(NOV 03)8.8(NOV 01) Troponin <0.02(NOV 01) Extracted from: Title: Clinical Document Author: Jacek Tian MD Srinivas e: 11/05/18 [facility] INFECTIOUS DISEASE CONSULTATION NOTE JACEK TIAN M.D. REQUESTING PHYSICIAN: Dr Ball REASON [...] Type 2 diabetes mellitus ALLERGIES: Allergies (1) ActiveReaction NKDANone documented REVIEW OF SYSTEMS: CONSTITUTIONAL: Denies fever, [...] PSYCH: No depression or anxiety PHYSICAL EXAMINATION: VitalsTmp(F)[id number] 11/05 09:1598.4 11/05 07:[id number]/549805--- 11/05 07:13 41644 21% 11/05 03:[id number]/[id number]--- 11/04 22:[id number]/80--91--- 24 Hr Tmax: 98.4F (36.89c) at 11/05 09:1 5Vital Signs are the last 5 in [...] in Water IV (Dextrose 50% Syringe), acetaminophen-hydrocodone ([place] 5/325 oral tablet), albuterol (albuterol 0.083% inhalation [...] mg/dL High (11/05/18 09:50:00) eGFR: 14 mL/min/1.73m2 (11/05/18:50:00) Globulin: 5.4 g/dL High (11/01/18:47:00) Glucose Lvl: [...] our standpoint call if any questions Extracted from: Title: History and Physical Author: Archie Gil MD Date: 11/02/18 Patient is a 68year-old femalewith past medical history of ESRD, hypertension,presents with complaints ofright-sided chest pain status postmechanical fall. Chest x-ray demonstrated aright-sided pneumonia. Bacterial pneumonia(J15.9) Continue ceftriaxone and azithromycin. Follow viral panelresultssputum culture, blood culture. Await lactic acid levels. 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 Chest pain Reproducible, musculoskeletal in nature. Placed on [place]. Trend troponins,EKG showing sinus rhythm. Consult cardiology for any changes in troponins. ESRDTTS Consults nephrology for routine hemodialysis Heparin 1-2 midnight
--- OUTSIDE RECORDS SUMMARY | 2020-06-17 13:09 | XMS REPORT | Summary of Care ---
Author Author [facility] Address Unknown Phone Unavailable Encounter ISRAEL Schroeder(MALOU) [id number] Date(s): 04/04/18 - 05/03/18 [facility] Discharge Disposition: Home or Self Care Attending Physician: Sammy Carrera MD Referring Physician: Jon Guillermo MD Vital Signs No data available for [...] Cholecystectomy1 Completed Cholecystotomy Completed Eye care Completed 36132 Social History Social History Type Response Substance Abuse Use: None. Alcohol Never Smoking Status Never smoker; Exposure to T obacco Smoke None; Cigarette Smoking Last 365 Days No; Reg Smoking Cessation Counseli ng No entered on: 04/28/18 Assessment and Plan No data available for this section
--- OUTSIDE RECORDS SUMMARY | 2020-06-17 13:09 | XMS REPORT | Summary of Care ---
Author Organization Unknown Address Unknown Phone Unavailable Encounter [facility](MALOU) [id number] Date(s): 07/18/14 - 07/19/[address] [facility] [address] [place], [place] [id number] [place] [address] Discharge Diagnosis: Back pain Discharge Diagnosis: Muscle spasm Discharge Diagnosis: Depression Discharge Diagnosis: Diabetes mellitus Discharge Disposition: Home Physician Attending: Myron Mckenzie MD Reason for Visit POSS HYPOGLYCEMIA Vital Signs 1 2 3 Most recent to oldest [Reference Range]: 152.4 cm (07/18/14 7:38 PM) Height 98.4 DegF (07/19/14 12:00 AM) 98.3 DegF (07/18/14 7:38 PM) Temperature Oral [96.4-99.1 DegF] 154 mmHg *HI* (07/19/14 1:33 AM) 147 mmHg *HI* (07/19/14 12:00 AM) 163 mmHg *HI* (07/18/14 10:00 PM) Systolic Blood Pressure [90-140 mmHg] 59 mmHg *LOW* (07/19/14 1:33 AM) 63 mmHg (07/19/14 12:00 AM) 66 mmHg (07/18/14 10:00 PM) Diastolic Blood Pressure [60-90 mmHg] 18 BRMIN (07/19/14 1:33 AM) 18 BRMIN (07/19/14 12:00 AM) 18 BRMIN (07/18/14 10:00 PM) Respiratory Rate [14-20 BRMIN] 88 bpm (07/19/14 1:33 AM) 82 bpm (07/19/14 12:00 AM) 79 bpm (07/18/14 10:00 PM) Peripheral Pulse Rate [60-100 bpm] 52.273 kg (07/18/14 7:38 PM) Weight 22.51 m2 (07/18/14 7:38 PM) Body Mass Index Problem List Condition Effective Dates Status Health Status Informan t Diabetes Active mellitus(Confirmed) Hepatitis Active C(Confirmed) Allergies, Adverse Reactions, Alerts Substance Reaction Severity Status NKDA Active Medications ibuprofen 600 mg, Route: PO, Drug form: TAB, ONCE, Dosing Weight 52.273, kg, Priority: STA T, Start date: 07/18/14 21:27:00, Stop date: 07/18/14 21:27:00 Start Date: 07/18/14 Stop Date: 07/18/14 Status: Completed ibuprofen 400 mg oral tablet 400 mg = 1 tab, PO, Q4H, Pain, # 10 tab, 0 Refill(s) Start Date: 07/19/14 Status: Ordered Insulin regular 5 unit, 0.05 mL, Route: IV, Drug form: INJ, ONCE, Dosing Weight 52.273, kg, Prio rity: STAT, Start date: 07/18/14 23:05:00, Stop date: 07/18/14 23:05:00 Notes: (Same as: Humulin R and NovoLIN R) (Do not shake) Start Date: 07/18/14 Stop Date: 07/19/14 Status: Discontinued NS (Bolus) IV 1,000 mL, 1,000 ml/hr, Infuse Over: 1 hr, Route: IV, 1,000, Drug form: INJ, ONCE , Priority: STAT, Dosing Weight 52.273 kg, Start date: 07/18/14 22:27:00, Durati on: 1 doses or times, Stop date: 07/18/14 22:27:00 Start Date: 07/18/14 Stop Date: 07/18/14 Status: Completed Valium 5 mg, Route: PO, ONCE, Dosing Weight 52.273, kg, Priority: STAT, Start date: 21:27:00, Stop date: 07/18/14 21:27:00 Start Date: 07/18/14 Stop Date: 07/18/14 Status: Completed Valium 2 mg oral tablet 2 mg = 1 tab, PO, QID, muscle spasm, # 7 tab, 0 Refill(s) Start Date: 07/19/14 Status: Ordered Results ELECTROLYTES Most recent to 1 oldest [Reference Range]: Sodium Lvl [135-145 134 mEq/L mEq/L] *LOW* (07/18/14 8:45 PM) Potassium Lvl 4.5 mEq/L [3.5-5.1 mEq/L] (07/18/14 8:45 PM) Chloride Lvl [95-109 100 mEq/L mEq/L] (07/18/14 8:45 PM) CO2 [24-32 mEq/L] 33 mEq/L *HI* (07/18/14 8:45 PM) AGAP [10.0-20.0 5.5 mEq/L mEq/L] *LOW* (07/18/14 8:45 PM) CHEM PANEL Most recent to 1 oldest [Reference Range]: Creatinine Lvl 1.4 mg/dL [0.5-1.4 mg/dL] (07/18/14 8:45 PM) eGFR 40 mL/min/1.73m2 1 *NA* (07/18/14 8:45 PM) BUN [7-22 mg/dL] 19 mg/dL (07/18/14 8:45 PM) B/C Ratio [6-25] 14 (07/18/14 8:45 PM) Glucose Lvl [70-99 360 mg/dL 2 mg/dL] *HI* (07/18/14 8:45 PM) Total Protein 8.9 g/dL [6.4-8.4 g/dL] *HI* (07/18/14 8:45 PM) Albumin Lvl [3.5-5.0 3.5 g/dL g/dL] (07/18/14 8:45 PM) Globulin [2.0-4.0 5.4 g/dL g/dL] *HI* (07/18/14 8:45 PM) A/G Ratio [0.7-1.6] 0.6 *LOW* (07/18/14 8:45 PM) Calcium Lvl 9.0 mg/dL [8.5-10.5 mg/dL] (07/18/14 8:45 PM) Magnesium Lvl 2.2 mg/dL [1.8-2.4 mg/dL] (07/18/14 8:45 PM) ALT [0-65 unit/L] 29 unit/L (07/18/14 8:45 PM) AST [0-37 unit/L] 32 unit/L (07/18/14 8:45 PM) Alk Phos [39-136 174 unit/L unit/L] *HI* (07/18/14 8:45 PM) Bili Total [0.2-1.3 0.3 mg/dL mg/dL] (07/18/14 8:45 PM) 1Result Comment: The eGFR is calculated [...] be mul tiplied by the estimated BMI. 2Interpretive Data: Adult reference range values reflect the clinical guidelines of the [place] [employer]. CARDIAC ENZYMES Most recent to 1 oldest [Reference Range]: Troponin-I <0.02 ng/mL [0.00-0.40 ng/mL] (07/18/14 8:45 PM) URINE AND STOOL Most recent to 1 oldest [Reference Range]: UA Turbidity [Clear] Slight *ABN* (07/18/14 8:55 PM) UA Color Ltyellow *NA* (07/18/14 8:55 PM) UA pH [5.0-8.0] 5.0 (07/18/14 8:55 PM) UA Spec Grav 1.016 [<=1.030] (07/18/14 8:55 PM) UA Glucose [Negative 500 mg/dL mg/dL] *ABN* (07/18/14 8:55 PM) UA Blood [Negative] Small *ABN* (07/18/14 8:55 PM) UA Ketones [Negative Negative mg/dL mg/dL] *NA* (07/18/14 8:55 PM) UA Protein [Negative 30 mg/dL mg/dL] *ABN* (07/18/14 8:55 PM) UA Urobilinogen <=1.0 mg/dL [0.1-1.0 mg/dL] *NA* (07/18/14 8:55 PM) UA Bili [Negative] Negative *NA* (07/18/14 8:55 PM) UA Leuk Est Negative [Negative] (07/18/14 8:55 PM) UA Nitrite Negative [Negative] (07/18/14 8:55 PM) UA WBC [0-5 /HPF] 3 /HPF (07/18/14 8:55 PM) UA RBC [0-2 /HPF] 1 /HPF (07/18/14 8:55 PM) UA Bacteria [None Occasional /HPF Seen /HPF] *NA* (07/18/14 8:55 PM) UA Sq Epi [Few /LPF] Moderate /LPF *ABN* (07/18/14 8:55 PM) UA Hyal Cast [0-2 1 /LPF /LPF] (07/18/14 8:55 PM) HEMATOLOGY Most recent to 1 oldest [Reference Range]: WBC [3.7-10.4 K/CMM] 5.4 K/CMM (07/18/14 8:45 PM) RBC [4.20-5.40 3.81 M/CMM M/CMM] *LOW* (07/18/14 8:45 PM) Hgb [12.0-16.0 g/dL] 11.8 g/dL *LOW* (07/18/14 8:45 PM) Hct [36.0-48.0 %] 34.6 % *LOW* (07/18/14 8:45 PM) MCV [80.0-98.0 fL] 90.8 fL (07/18/14 8:45 PM) MCH [27.0-31.0 pg] 31.0 pg (07/18/14 8:45 PM) MCHC [32.0-36.0 34.2 g/dL g/dL] (07/18/14 8:45 PM) RDW [11.5-14.5 %] 13.8 % (07/18/14 8:45 PM) Platelet [133-450 156 K/CMM K/CMM] (07/18/14 8:45 PM) MPV [7.4-10.4 fL] 9.0 fL (07/18/14 8:45 PM) Segs [45.0-75.0 %] 60.7 % (07/18/14 8:45 PM) Lymphocytes 26.6 % [20.0-40.0 %] (07/18/14 8:45 PM) Monocytes [2.0-12.0 7.2 % %] (07/18/14 8:45 PM) Eosinophils [0.0-4.0 5.1 % %] *HI* (07/18/14 8:45 PM) Basophils [0.0-1.0 0.4 % %] (07/18/14 8:45 PM) Segs-Bands # 3.3 K/CMM [1.5-8.1 K/CMM] (07/18/14 8:45 PM) Lymphocytes # 1.4 K/CMM [1.0-5.5 K/CMM] (07/18/14 8:45 PM) Monocytes # [0.0-0.8 0.4 K/CMM K/CMM] (07/18/14 8:45 PM) Eosinophils # 0.3 K/CMM [0.0-0.5 K/CMM] (07/18/14 8:45 PM) Medications Administered During Your Visit No data available for this section Immunizations No data available for this section
--- OUTSIDE RECORDS SUMMARY | 2020-06-17 13:09 | XMS REPORT | Summary of Care ---
Author Author [facility] Organization [facility] Address Unknown Phone Unavailable Encounter [facility](MALOU) [id number] Date(s): 04/28/18 - 05/05/18 [facility] [address] [place] [address]- [phone] Encounter Diagnosis Pleural effusion, not elsewhere classified (Final) - Discharge Disposition: Home or Self Care Attending Physician: Angel Ley MD Admitting Physician: Angel Ley MD Vital Signs 1 2 3 Most recent to oldest [Reference Range]: 152.4 cm (04/28/18 11:38 PM) 152.4 cm (04/28/18 5:20 PM) Height 98.8 DegF (05/05/18 11:39 AM) 99.3 DegF *HI* (05/05/18 7:14 AM) 99.1 DegF (05/05/18 4:00 AM) Temperature Oral [96.4-99.1 DegF] 145/67 mmHg *HI* (05/05/18 11:39 AM) 139/69 mmHg (05/05/18 7:14 AM) 155/68 mmHg *HI* (05/05/18 4:00 AM) Blood Pressure [90-140/60-90 mmHg] 18 BRMIN (05/05/18 11:39 AM) 18 BRMIN (05/05/18 7:15 AM) 18 BRMIN (05/05/18 7:14 AM) Respiratory Rate [14-20 BRMIN] 79 bpm (05/05/18 11:39 AM) 79 bpm (05/05/18 7:14 AM) 81 bpm (05/05/18 4:00 AM) Peripheral Pulse Rate [60-100 bpm] 58.1 kg (04/28/18 11:38 PM) 59.545 kg (04/28/18 5:20 PM) Weight 25.02 m2 (04/28/18 11:38 PM) 25.64 m2 (04/28/18 5:20 PM) Body Mass Index Problem List Condition [...] Substance Reaction Severity Status NKDA Active Medications amLODIPine 10 mg, 2 tab, Route: PO, Drug form: TAB, Daily, Dosing Weight 58.1, kg, Start da te: 04/30/18 9:00:00 CDT, Duration: 30 day, Stop date: 05/29/18 9:00:00 CDT Notes: (Same as: Norvasc) Start Date: 04/30/18 Stop Date: 05/05/18 Status: Discontinued aspirin 325 mg, 1 tab, Route: PO, Drug form: TAB, ONCE, Dosing Weight 59.545, kg, Priori ty: STAT, Start date: 04/28/18 22:09:00 CDT, Stop date: 04/28/18 22:09:00 CDT Notes: Take with food. Start Date: 04/28/18 Stop Date: 04/28/18 Status: Completed aspirin 81 mg tablet, enteric coated 81 mg, 1 tab, Route: PO, Drug form: ECTAB, Daily, Dosing Weight 59.545, kg, Star t date: 04/29/18 9:00:00 CDT, Duration: 30 day, Stop date: 05/28/18 9:00:00 CDT Notes: Do not crush or chew.(Same As: Ecotrin) Start Date: 04/29/18 Stop Date: 05/05/18 Status: Discontinued aspirin 81 mg tablet, enteric coated 81 mg, 1 tab, Route: PO, Drug form: ECTAB, Daily, Dosing Weight 58.1, kg, Start date: 04/30/18 9:00:00 CDT, Duration: 30 day, Stop date: 05/29/18 9:00:00 CDT Start Date: 04/30/18 Stop Date: 04/29/18 Status: Deleted atorvastatin 40 mg, 1 tab, Route: PO, Drug form: TAB, Bedtime, Dosing Weight 58.1, kg, Start date: 04/29/18 21:00:00 CDT, Duration: 30 day, Stop date: 05/28/18 21:00:00 CDT Notes: (Same as: Lipitor) Start Date: 04/29/18 Stop Date: 05/05/18 Status: Discontinued Bumex 2 mg, 8 mL, Route: IVP, Drug form: INJ, Q8H, Dosing Weight 58.1, kg, Start date: 05/01/18 0:00:00 CDT, Duration: 30 day, Stop date: 05/30/18 16:00:00 CDT Notes: (Same As: Bumex) Start Date: 05/01/18 Stop Date: 05/05/18 Status: Discontinued clopidogrel 75 mg, 1 tab, Route: PO, Drug form: TAB, Daily, Dosing Weight 58.1, kg, Start da te: 04/30/18 9:00:00 CDT, Duration: 30 day, Stop date: 05/29/18 9:00:00 CDT Notes: (Same As: Plavix) Start Date: 04/30/18 Stop Date: 05/05/18 Status: Discontinued Dextrose 50% Syringe 25 gm, 50 mL, Route: IVP, Drug Form: INJ, Dosing Weight 58.1, kg, ONCE, Start da te: 04/29/18 0:27:00 CDT, Stop date: 04/29/18 0:27:00 CDT Start Date: 04/29/18 Stop Date: 04/29/18 Status: Completed Dextrose 50% Syringe 25 gm, 50 mL, Route: IVP, Drug Form: INJ, Dosing Weight 58.1, kg, PRN, PRN Blood Glucose Results, Start date: 04/28/18 23:47:00 CDT, Duration: 30 day, Stop date: 05/28/18 23:46:00 CDT Start Date: 04/28/18 Stop Date: 05/05/18 Status: Discontinued Dextrose 50% Syringe 12.5 gm, 25 mL, Route: IVP, Drug Form: INJ, Dosing Weight 58.1, kg, PRN, PRN Blo od Glucose Results, Start date: 04/28/18 23:47:00 CDT, Duration: 30 day, Stop da te: 05/28/18 23:46:00 CDT Start Date: 04/28/18 Stop Date: 05/05/18 Status: Discontinued DuoNeb inhalation solution 3 mL, Route: NEB, Drug Form: SOLN, Dosing Weight 58.1, kg, RQ6H, PRN Shortness o f breath, Start date: 04/29/18 0:09:00 CDT, Duration: 30 day, Stop date: 8 0:08:00 CDT Notes: (Same as: Duoneb) Start Date: 04/29/18 Stop Date: 05/05/18 Status: Discontinued epoetin kathy 3000 units/mL preservative-free injectable solution 3,000 unit = 1 mL, SUB-Q, Q--Sa, 0 Refill(s) Start Date: 05/05/18 Status: Ordered Epogen 3,000 unit, 1 mL, Route: SUB-Q, Drug form: INJ, Q--Sa, Dosing Weight 58.1, kg, Start date: 05/04/18 17:00:00 CDT, Duration: 30 day, Stop date: 06/01/18 17: 00:00 CDT Notes: (Same as: Procrit) epoetin kathy 3000 unit/1 ml VL.For dialysis use onlyWA VANESSA: F/P - Red; E -Red MEDICATION WASTE Product Size: 3000 unitProduct Wasted: ___ unit Start Date: 05/04/18 Stop Date: 05/05/18 Status: Discontinued Epogen 3,000 unit, 1 mL, Route: SUB-Q, Drug form: INJ, ONCE, Dosing Weight 58.1, kg, St art date: 05/03/18 8:03:00 CDT, Stop date: 05/03/18 8:03:00 CDT Notes: (Same as: Procrit) epoetin kathy 3000 unit/1 ml VL.For dialysis use onlyWA VANESSA: F/P - Red; E -Red MEDICATION WASTE Product Size: 3000 unitProduct Wasted: ___ unit Start Date: 05/03/18 Stop Date: 05/03/18 Status: Completed escitalopram 10 mg, 1 tab, Route: PO, Drug form: TAB, Daily, Dosing Weight 58.1, kg, Start da te: 04/30/18 9:00:00 CDT, Duration: 30 day, Stop date: 05/29/18 9:00:00 CDT Notes: (Same as: Lexapro) Start Date: 04/30/18 Stop Date: 05/05/18 Status: Discontinued furosemide 80 mg, BID, 0 Refill(s) Start Date: 04/29/18 Status: Ordered GI cocktail 30 mL, Route: PO, Drug Form: SUSP, Dosing Weight 59.545, kg, ONCE, STAT, Start d ate: 04/28/18 22:18:00 CDT, Stop date: 04/28/18 22:18:00 CDT Notes: G.I. Cocktail = antacid with simethicone 22.5 mL - lidocaine viscous 7.5 mL Start Date: 04/28/18 Stop Date: 04/28/18 Status: Completed glucagon 1 mg, Route: IM, Drug form: PDR/INJ, PRN, Dosing Weight 58.1, kg, PRN Blood Gluc ose Results, Start date: 04/28/18 23:47:00 CDT, Duration: 30 day, Stop date: 23:46:00 CDT Start Date: 04/28/18 Stop Date: 05/05/18 Status: Discontinued heparin 5,000 unit, 1 mL, Route: SUB-Q, Drug form: INJ, Q8H, Dosing Weight 58.1, kg, Sta rt date: 04/29/18 8:00:00 CDT, Duration: 30 day, Stop date: 05/29/18 0:00:00 CDT Notes: porcine heparin Start Date: 04/29/18 Stop Date: 04/29/18 Status: Discontinued Heparin 30 unit/kg Bolus (Heparin Dosing Weight) Route: IVP, PRN, 1,500 unit, 1.5 mL, Drug form: INJ, PRN, Heparin Protocol, Star t date: 04/29/18 18:06:00 CDT Stop date: 05/29/18 18:05:00 CDT, 30 day Start Date: 04/29/18 Stop Date: 04/30/18 Status: Discontinued Heparin 60 unit/kg Bolus (Heparin Dosing Weight) Route: IVP, PRN, 3,000 unit, 3 mL, Drug form: INJ, PRN, Heparin Protocol, Start date: 04/29/18 18:06:00 CDT Stop date: 05/29/18 18:05:00 CDT, 30 day Start Date: 04/29/18 Stop Date: 04/30/18 Status: Discontinued heparin additive 25,000 unit [12 unit/kg/hr] + Premix Diluent Dextrose 5% 500 mL 500 mL, Rate: 12.12 ml/hr, Infuse over: 41.3 hr, Route: IV, Dosing Weight 50.5 k g, Total Volume: 500 mL, Start date: 04/29/18 18:06:00 CDT, Duration: 30 day, St op date: 05/29/18 18:05:00 CDT, 1.48, m2 Start Date: 04/29/18 Stop Date: 04/30/18 Status: Discontinued Humalog 100 units/mL - (Starting CD) Blood Sugar Control, SUB-Q, TID-Before Meals, Check blood sugar before breakfast , lunch, and dinner, and inject correction doses: Inject 1 unit if Sugar 150-199 , Inject 2 units if Sugar 200-249, Inject 3 units if Sugar 250-299, Inject 4 uni ts if Sugar... Start Date: 05/05/18 Status: Ordered hydrALAZINE 10 mg, 0.5 mL, Route: IVP, Drug form: INJ, ONCE, Dosing Weight 58.1, kg, PRN Hyp ertension, Priority: STAT, Start date: 05/02/18 5:07:00 CDT Notes: (Same as: Apresoline)Push over 5 minutes Start Date: 05/02/18 Stop Date: 05/02/18 Status: Completed hydrALAZINE 10 mg, 0.5 mL, Route: IVP, Drug form: INJ, Q4H, Dosing Weight 58.1, kg, PRN Hype rtension, Start date: 05/02/18 5:07:00 CDT, Duration: 30 day, Stop date: 8 5:06:00 CDT Notes: (Same as: Apresoline)Push over 5 minutes Start Date: 05/02/18 Stop Date: 05/05/18 Status: Discontinued insulin lispro 2 unit, 0.02 mL, Route: SUB-Q, Drug form: SOLN, Bedtime, Dosing Weight 58.1, kg, PRN Blood Glucose Results, Start date: 04/28/18 23:47:00 CDT, Duration: 30 day, Stop date: 05/28/18 23:46:00 CDT Notes: (Same as: Humalog ) Roll in palms of hands gently; Do not shake `vigorou sly. "Single Patient Use Only " WASTE: F/P - Black; E - [employer] [address] St able for 28 days at room temperature.Expires in days from Da te Start Date: 04/28/18 Stop Date: 05/05/18 Status: Discontinued insulin lispro 3 unit, 0.03 mL, Route: SUB-Q, Drug form: SOLN, Bedtime, Dosing Weight 58.1, kg, PRN Blood Glucose Results, Start date: 04/28/18 23:47:00 CDT, Duration: 30 day, Stop date: 05/28/18 23:46:00 CDT Notes: (Same as: Humalog ) Roll in palms of hands gently; Do not shake `vigorou sly. "Single Patient Use Only " WASTE: F/P - Black; E - [facility] [address] [address] able for 28 days at room temperature.Expires in days from Da te Start Date: 04/28/18 Stop Date: 05/05/18 Status: Discontinued insulin lispro 4 unit, 0.04 mL, Route: SUB-Q, Drug form: SOLN, Bedtime, Dosing Weight 58.1, kg, PRN Blood Glucose Results, Start date: 04/28/18 23:47:00 CDT, Duration: 30 day, Stop date: 05/28/18 23:46:00 CDT Notes: (Same as: Humalog ) Roll in palms of hands gently; Do not shake `vigorou sly. "Single Patient Use Only " WASTE: F/P - Black; E - [facility] [address] [address] able for 28 days at room temperature.Expires in days from Da te Start Date: 04/28/18 Stop Date: 05/05/18 Status: Discontinued insulin lispro 1 unit, 0.01 mL, Route: SUB-Q, Drug form: SOLN, Bedtime, Dosing Weight 58.1, kg, PRN Blood Glucose Results, Start date: 04/28/18 23:47:00 CDT, Duration: 30 day, Stop date: 05/28/18 23:46:00 CDT Notes: (Same as: Humalog ) Roll in palms of hands gently; Do not shake `vigorou sly. "Single Patient Use Only " WASTE: F/P - Black; E - [facility] [address] [address] able for 28 days at room temperature.Expires in days from Da te Start Date: 04/28/18 Stop Date: 05/05/18 Status: Discontinued insulin lispro 2 unit, 0.02 mL, Route: SUB-Q, Drug form: SOLN, TID-Before Meals, Dosing Weight 58.1, kg, PRN Blood Glucose Results, Start date: 04/28/18 23:47:00 CDT, Duration : 30 day, Stop date: 05/28/18 23:46:00 CDT Notes: (Same as: Humalog ) Roll in palms of hands gently; Do not shake `vigorou sly. "Single Patient Use Only " WASTE: F/P - Black; E - [facility] [address] able for 28 days at room temperature.Expires in days from Da te Start Date: 04/28/18 Stop Date: 05/05/18 Status: Discontinued insulin lispro 3 unit, 0.03 mL, Route: SUB-Q, Drug form: SOLN, TID-Before Meals, Dosing Weight 58.1, kg, PRN Blood Glucose Results, Start date: 04/28/18 23:47:00 CDT, Duration : 30 day, Stop date: 05/28/18 23:46:00 CDT Notes: (Same as: Humalog ) Roll in palms of hands gently; Do not shake `vigorou sly. "Single Patient Use Only " WASTE: F/P - Black; E - [facility] [address] able for 28 days at room temperature.Expires in days from Da te Start Date: 04/28/18 Stop Date: 05/05/18 Status: Discontinued insulin lispro 1 unit, 0.01 mL, Route: SUB-Q, Drug form: SOLN, TID-Before Meals, Dosing Weight 58.1, kg, PRN Blood Glucose Results, Start date: 04/28/18 23:47:00 CDT, Duration : 30 day, Stop date: 05/28/18 23:46:00 CDT Notes: (Same as: Humalog ) Roll in palms of hands gently; Do not shake `vigorou sly. "Single Patient Use Only " WASTE: F/P - Black; E - [facility] [address] able for 28 days at room temperature.Expires in days from Da te Start Date: 04/28/18 Stop Date: 05/05/18 Status: Discontinued insulin lispro 4 unit, 0.04 mL, Route: SUB-Q, Drug form: SOLN, TID-Before Meals, Dosing Weight 58.1, kg, PRN Blood Glucose Results, Start date: 04/28/18 23:47:00 CDT, Duration : 30 day, Stop date: 05/28/18 23:46:00 CDT Notes: (Same as: Humalog ) Roll in palms of hands gently; Do not shake `vigorou sly. "Single Patient Use Only " WASTE: F/P - Black; E - [facility] [address] [address] able for 28 days at room temperature.Expires in days from Da te Start Date: 04/28/18 Stop Date: 05/05/18 Status: Discontinued insulin lispro 5 unit, 0.05 mL, Route: SUB-Q, Drug form: SOLN, TID-Before Meals, Dosing Weight 58.1, kg, PRN Blood Glucose Results, Start date: 04/28/18 23:47:00 CDT, Duration : 30 day, Stop date: 05/28/18 23:46:00 CDT Notes: (Same as: Humalog ) Roll in palms of hands gently; Do not shake `vigorou sly. "Single Patient Use Only " WASTE: F/P - Black; E - [facility] [address] able for 28 days at room temperature.Expires in days from Da te Start Date: 04/28/18 Stop Date: 05/05/18 Status: Discontinued Insulin regular See Instructions, SUB-Q TID-Before Meals, 0 Refill(s) Start Date: 04/29/18 Status: Ordered Lantus 100 units/mL 20 unit, SUB-Q, Bedtime, # 10 mL, 3 Refill(s) Start Date: 04/29/18 Stop Date: 05/05/18 Status: Discontinued Lasix 40 mg, 4 mL, Route: IV, Drug form: INJ, BID, Dosing Weight 58.1, kg, Start date: 04/29/18 9:00:00 CDT, Duration: 30 day, Stop date: 05/28/18 17:00:00 CDT Notes: (Same as: Lasix) MEDICATION WASTE Product Size: 40 mgProduct Was lorena: ___ mg Start Date: 04/29/18 Stop Date: 04/29/18 Status: Discontinued Lasix 40 mg, 4 mL, Route: IVP, Drug form: INJ, ONCE, Dosing Weight 59.545, kg, Priorit y: STAT, Start date: 04/28/18 22:09:00 CDT, Stop date: 04/28/18 22:09:00 CDT Notes: (Same as: Lasix) MEDICATION WASTE Product Size: 40 mgProduct Was lorena: ___ mg Start Date: 04/28/18 Stop Date: 04/28/18 Status: Completed Lasix 40 mg, 4 mL, Route: IV, Drug form: INJ, Q8H, Dosing Weight 58.1, kg, Start date: 04/30/18 0:00:00 CDT, Duration: 30 day, Stop date: 05/29/18 16:00:00 CDT Notes: (Same as: Lasix) MEDICATION WASTE Product Size: 40 mgProduct Was lorena: ___ mg Start Date: 04/30/18 Stop Date: 04/30/18 Status: Discontinued metoprolol tartrate 50 mg, 1 tab, Route: PO, Drug form: TAB, BID, Dosing Weight 58.1, kg, Start date : 04/29/18 21:00:00 CDT, Stop date: 05/29/18 9:00:00 CDT Notes: (Same as: Lopressor) Start Date: 04/29/18 Stop Date: 05/05/18 Status: Discontinued metoprolol tartrate 50 mg oral tablet 50 mg = 1 tab, PO, BID, # 60 tab, 1 Refill(s) Start Date: 05/05/18 Status: Ordered morphine Sulfate 2 mg, Route: IVP, ONCE, Dosing Weight 58.1, kg, Start date: 04/29/18 17:57:00 CD T, Stop date: 04/29/18 17:57:00 CDT Start Date: 04/29/18 Stop Date: 04/29/18 Status: Discontinued morphine Sulfate 6 mg, 3 mL, Route: PO, Drug form: SOLN, Q4H, Dosing Weight 59.545, kg, PRN Pain Score 7-10, Start date: 04/28/18 23:31:00 CDT, Stop date: 05/28/18 23:30:00 CDT Notes: (Same as:MORPhine Sulfate) Start Date: 04/28/18 Stop Date: 04/29/18 Status: Discontinued morphine Sulfate 2 mg, 1 mL, Route: PO, Drug form: SOLN, ONCE, Dosing Weight 58.1, kg, Start date : 04/29/18 18:09:00 CDT, Stop date: 04/29/18 18:09:00 CDT Notes: (Same as:MORPhine Sulfate) Start Date: 04/29/18 Stop Date: 04/29/18 Status: Completed morphine Sulfate 12 mg, 6 mL, Route: PO, Drug form: SOLN, Q4H, Dosing Weight 58.1, kg, PRN Pain S core 7-10, Start date: 04/29/18 17:54:00 CDT, Duration: 30 day, Stop date: 05/29 17:53:00 CDT Notes: (Same as:MORPhine Sulfate) Start Date: 04/29/18 Stop Date: 05/05/18 Status: Discontinued morphine Sulfate 2 mg, 2 mL, Route: IVP, Drug form: SOLN, ONCE, Dosing Weight 59.545, kg, Priorit y: STAT, Start date: 04/28/18 22:18:00 CDT, Stop date: 04/28/18 22:18:00 CDT Notes: Preservative free. (Same as: Morphine Sulfate-PF) Start Date: 04/28/18 Stop Date: 04/28/18 Status: Completed NIFEdipine 60 mg oral tablet, extended release 60 mg, 1 tab, Route: PO, Drug form: ERTAB, Q24H, Dosing Weight 58.1, kg, Start d ate: 04/29/18 1:00:00 CDT, Duration: 30 day, Stop date: 05/28/18 1:00:00 CDT Notes: (Same as: Adalat CC, Procardia XL) Give on empty stomach. Take 1 hour be fore or 2 hours after meal; "Avoid grapefruit and grapefruit juice". Do not cru sh Start Date: 04/29/18 Stop Date: 04/29/18 Status: Discontinued nitroglycerin 0.4 mg, 1 tab, Route: SL, Drug form: TAB, ONCE, Dosing Weight 59.545, kg, Priori ty: STAT, Start date: 04/28/18 22:28:00 CDT, Stop date: 04/28/18 22:28:00 CDT Notes: (Same as:Nitroquick, Nitrostat)"Do Not Crush" Sublingual tablet Start Date: 04/28/18 Stop Date: 04/29/18 Status: Completed nitroglycerin 0.4 mg sublingual tablet 0.4 mg, 1 tab, Route: SL, Drug form: TAB, ONCE, Dosing Weight 58.1, kg, PRN Ches t Pain, Start date: 04/29/18 17:55:00 CDT Notes: (Same as:Nitroquick Nitrostat)"Do Not Crush" Sublingual tablet Start Date: 04/29/18 Stop Date: 05/05/18 Status: Discontinued nitroglycerin 2% topical ointment 1 inch, Route: TOP, Drug Form: OINT, Dosing Weight 58.1, kg, ONCE, Start date: 0 04/29/18 0:25:00 CDT, Stop date: 04/29/18 0:25:00 CDT Notes: 1 gram is approximately 1 inch of nitroglycerin ointment (20 mg NTG pe r gram) (Same as:Nitro-Bid) Start Date: 04/29/18 Stop Date: 04/29/18 Status: Completed nitroglycerin SL Tab 0.4 mg, 1 tab, Route: SL, Drug form: TAB, Q5Min, Dosing Weight 59.545, kg, PRN C hest Pain, Start date: 04/28/18 23:30:00 CDT, Duration: 3 doses or times, Stop d ate: Limited # of times Notes: (Same as:Nitroquick Nitrostat)"Do Not Crush" Sublingual tablet Start Date: 04/28/18 Stop Date: 04/29/18 Status: Completed ondansetron 4 mg, 1 tab, Route: PO, Drug form: TAB, Q8H, Dosing Weight 59.545, kg, PRN Nause a & Vomiting, Start date: 04/28/18 23:30:00 CDT, Duration: 30 day, Stop date: 05/28/18 23:29:00 CDT Notes: (Same as: Zofran) Start Date: 04/28/18 Stop Date: 05/05/18 Status: Discontinued pantoprazole 40 mg, 1 tab, Route: PO, Drug form: ECTAB, Before Dinner, Dosing Weight 58.1, kg , Start date: 04/29/18 16:30:00 CDT, Duration: 30 day, Stop date: 05/28/18 16:30 :00 CDT Notes: Tablet should not be chewed or crushed.(Same as: Protonix) Start Date: 04/29/18 Stop Date: 05/05/18 Status: Discontinued Saline Flush 0.9% 10 mL, Route: IVP, Drug Form: INJ, Dosing Weight 59.545, kg, PRN, PRN Line Flush , Start date: 04/28/18 18:29:00 CDT, Duration: 30 day, Stop date: 05/28/18 18:28 :00 CDT Notes: Same as: BD Posiflush Sterile Start Date: 04/28/18 Stop Date: 04/28/18 Status: Discontinued Saline Flush 0.9% 10 ml, Route: IVP, Drug Form: INJ, Dosing Weight 59.545, kg, Q12H, Start date: 0 04/29/18 9:00:00 CDT, Duration: 30 day, Stop date: 05/28/18 21:00:00 CDT Notes: (Same as: BD Posiflush) Start Date: 04/29/18 Stop Date: 05/05/18 Status: Discontinued Saline Flush 0.9% 10 ml, Route: IVP, Drug Form: INJ, Dosing Weight 59.545, kg, PRN, PRN Line Flush , Start date: 04/28/18 23:30:00 CDT, Duration: 30 day, Stop date: 05/28/18 23:29 :00 CDT Notes: (Same as: BD Posiflush) Start Date: 04/28/18 Stop Date: 05/05/18 Status: Discontinued sulfaSALAzine 500 mg, 1 tab, Route: PO, Drug form: TAB, BID, Dosing Weight 58.1, kg, Start srinivas e: 04/29/18 17:00:00 CDT, Duration: 30 day, Stop date: 05/29/18 9:00:00 CDT Notes: (Same As: Azulfidine) Start Date: 04/29/18 Stop Date: 05/05/18 Status: Discontinued Zofran ODT 4 mg, 1 tab, Route: PO, Drug form: TABDIS, ONCE, Dosing Weight 59.545, kg, Prior ity: STAT, Start date: 04/28/18 22:18:00 CDT, Stop date: 04/28/18 22:18:00 CDT Notes: (Same as: Zofran ODT) Start Date: 04/28/18 Stop Date: 04/28/18 Status: Completed Results ELECTROLYTES 1 2 3 Most recent to oldest [Reference Range]: 140 mEq/L (05/04/18 4:09 AM) 139 mEq/L (05/02/18 7:27 AM) 139 mEq/L (05/01/18 4:35 AM) Sodium Lvl [135-145 mEq/L] 4.1 mEq/L (05/04/18 4:09 AM) 4.0 mEq/L (05/02/18 7:27 AM) 4.5 mEq/L (05/01/18 4:35 AM) Potassium Lvl [3.5-5.1 mEq/L] 104 mEq/L (05/04/18 4:09 AM) 103 mEq/L (05/02/18 7:27 AM) 105 mEq/L (05/01/18 4:35 AM) Chloride Lvl [95-109 mEq/L] 32 mEq/L (05/04/18 4:09 AM) 29 mEq/L (05/02/18 7:27 AM) 27 mEq/L (05/01/18 4:35 AM) CO2 [24-32 mEq/L] 8.1 mEq/L *LOW* (05/04/18 4:09 AM) 11.0 mEq/L (05/02/18 7:27 AM) 11.5 mEq/L (05/01/18 4:35 AM) AGAP [10.0-20.0 mEq/L] CHEM PANEL 1 2 3 Most recent to oldest [Reference Range]: 1.56 mg/dL *HI* (05/04/18 4:09 AM) 2.80 mg/dL *HI* (05/02/18 7:27 AM) 2.78 mg/dL *HI* (05/01/18 4:35 AM) Creatinine Lvl [0.50-1.40 mg/dL] 34 mL/min/1.73m2 1 *NA* (05/04/18 4:09 AM) 17 mL/min/1.73m2 2 *NA* (05/02/18 7:27 AM) 17 mL/min/1.73m2 3 *NA* (05/01/18 4:35 AM) eGFR 15 mg/dL (05/04/18 4:09 AM) 46 mg/dL *HI* (05/02/18 7:27 AM) 39 mg/dL *HI* (05/01/18 4:35 AM) BUN [7-22 mg/dL] 16 (04/28/18 7:10 PM) B/C Ratio [6-25] 128 mg/dL *HI* (05/04/18 4:09 AM) 167 mg/dL *HI* (05/02/18 7:27 AM) 135 mg/dL *HI* (05/01/18 4:35 AM) Glucose Lvl [70-99 mg/dL] 8.1 g/dL (04/28/18 7:10 PM) Total Protein [6.4-8.4 g/dL] 3.2 g/dL *LOW* (04/28/18 7:10 PM) Albumin Lvl [3.5-5.0 g/dL] 4.9 g/dL *HI* (04/28/18 7:10 PM) Globulin [2.7-4.2 g/dL] 0.7 (04/28/18 7:10 PM) A/G Ratio [0.7-1.6] 8.1 mg/dL *LOW* (05/04/18 4:09 AM) 8.3 mg/dL *LOW* (05/02/18 7:27 AM) 8.4 mg/dL *LOW* (05/01/18 4:35 AM) Calcium Lvl [8.5-10.5 mg/dL] 21 unit/L (04/28/18 7:10 PM) ALT [0-65 unit/L] 55 unit/L *HI* (04/28/18 7:10 PM) AST [0-37 unit/L] 142 unit/L *HI* (04/28/18 7:10 PM) Alk Phos [39-136 unit/L] 0.4 mg/dL (04/28/18 7:10 PM) Bili Total [0.2-1.3 mg/dL] 279 unit/L (04/28/18 7:13 PM) Lipase Lvl [73-393 unit/L] 1Result Comment: The eGFR is calculated using [...] 3 Most recent to oldest [Reference Range]: 177 unit/L (04/30/18 4:10 AM) 200 unit/L *HI* (04/29/18 10:03 PM) 191 unit/L (04/29/18 6:13 PM) Total CK [12-191 unit/L] 2.8 ng/mL (04/30/18 4:10 AM) 3.4 ng/mL (04/29/18 10:03 PM) 3.9 ng/mL *HI* (04/29/18 6:13 PM) CK MB [0.5-3.6 ng/mL] 1.6 (04/30/18 4:10 AM) 3.0 *HI* (04/29/18 5:00 AM) 3.3 *HI* (04/29/18 1:02 AM) CK MB Index [0.0-2.5] 0.04 ng/mL (05/05/18 5:03 AM) 0.04 ng/mL (05/04/18 4:09 AM) 0.04 ng/mL (05/03/18 5:43 AM) Troponin-I [0.00-0.40 ng/mL] 663 pg/mL *HI* (05/02/18 7:27 AM) 451 pg/mL *HI* (04/28/18 7:10 PM) BNP [<=100 pg/mL] URINE AND STOOL 1 2 3 Most recent to oldest [Reference Range]: Clear (04/28/18 7:10 PM) UA Turbidity [Clear] Yellow *NA* (04/28/18 7:10 PM) UA Color [Yellow] 5.0 (04/28/18 7:10 PM) UA pH [5.0-8.0] 1.010 (04/28/18 7:10 PM) UA Spec Grav [<=1.030] Negative mg/dL *NA* (04/28/18 7:10 PM) UA Glucose [Negative mg/dL] Small *ABN* (04/28/18 7:10 PM) UA Blood [Negative] Negative mg/dL *NA* (04/28/18 7:10 PM) UA Ketones [Negative mg/dL] 100 mg/dL *ABN* (04/28/18 7:10 PM) UA Protein [Negative mg/dL] <=1.0 mg/dL *NA* (04/28/18 7:10 PM) UA Urobilinogen [0.1-1.0 mg/dL] Negative *NA* (04/28/18 7:10 PM) UA Bili [Negative] Negative (04/28/18 7:10 PM) UA Leuk Est [Negative] Negative (04/28/18 7:10 PM) UA Nitrite [Negative] 3 /HPF (04/28/18 7:10 PM) UA WBC [0-5 /HPF] 4 /HPF *HI* (04/28/18 7:10 PM) UA RBC [0-2 /HPF] Occasional /HPF *NA* (04/28/18 7:10 PM) UA Bacteria [None Seen /HPF] Occasional /LPF *NA* (04/28/18 7:10 PM) UA Sq Epi [Few /LPF] 1 /LPF (04/28/18 7:10 PM) UA Hyal Cast [0-2 /LPF] IMMUNOLOGY 1 2 3 Most recent to oldest [Reference Range]: Negative *NA* (05/02/18 7:27 AM) Hep Bs Ag [Negative] 44.5 mIU/mL *HI* (04/29/18 6:13 PM) Hep Bs Ab [<=7.4 mIU/mL] Positive *NA* (04/29/18 6:13 PM) Hep B Core Ab [Negative] Positive *ABN* (04/29/18 6:13 PM) Hep C Ab HEMATOLOGY 1 2 3 Most recent to oldest [Reference Range]: 4.9 K/CMM (05/04/18 4:09 AM) 5.3 K/CMM (04/30/18 4:10 AM) 5.9 K/CMM (04/29/18 6:13 PM) WBC [3.7-10.4 K/CMM] 2.88 M/CMM *LOW* (05/04/18 4:09 AM) 2.88 M/CMM *LOW* (04/30/18 4:10 AM) 2.82 M/CMM *LOW* (04/29/18 6:13 PM) RBC [4.20-5.40 M/CMM] 8.5 g/dL *LOW* (05/04/18 4:09 AM) 9.2 g/dL *LOW* (05/03/18 10:09 PM) 8.3 g/dL *LOW* (04/30/18 4:10 AM) Hgb [12.0-16.0 g/dL] 25.9 % *LOW* (05/04/18 4:09 AM) 28.2 % *LOW* (05/03/18 10:09 PM) 25.8 % *LOW* (04/30/18 4:10 AM) Hct [36.0-48.0 %] 90.2 fL (05/04/18 4:09 AM) 89.8 fL (04/30/18 4:10 AM) 89.1 fL (04/29/18:13 PM) MCV [80.0-98.0 fL] 29.5 pg (05/04/18 4:09 AM) 28.9 pg (04/30/18 4:10 AM) 28.5 pg (04/29/18:13 PM) MCH [27.0-31.0 pg] 32.7 g/dL (05/04/18 4:09 AM) 32.2 g/dL (04/30/18 4:10 AM) 32.0 g/dL (04/29/18:13 PM) MCHC [32.0-36.0 g/dL] 18.7 % *HI* (05/04/18 4:09 AM) 19.7 % *HI* (04/30/18 4:10 AM) 19.3 % *HI* (04/29/18:13 PM) RDW [11.5-14.5 %] 8.2 fL (05/04/18 4:09 AM) 8.0 fL (04/30/18 4:10 AM) 7.7 fL (04/29/18:13 PM) MPV [7.4-10.4 fL] 129 K/CMM *LOW* (05/04/18 4:09 AM) 118 K/CMM *LOW* (04/30/18 4:10 AM) 124 K/CMM *LOW* (04/29/18:13 PM) Platelet [133-450 K/CMM] 54.0 % (05/04/18 4:09 AM) 46.7 % (04/30/18 4:10 AM) 49.0 % (04/29/18 6:13 PM) Segs [45.0-75.0 %] 23.7 % (05/04/18 4:09 AM) 31.8 % (04/30/18 4:10 AM) 32.9 % (04/29/18 6:13 PM) Lymphocytes [20.0-40.0 %] 13.0 % *HI* (05/04/18 4:09 AM) 11.7 % (04/30/18 4:10 AM) 9.9 % (04/29/18 6:13 PM) Monocytes [2.0-12.0 %] 9.1 % *HI* (05/04/18 4:09 AM) 9.4 % *HI* (04/30/18 4:10 AM) 7.9 % *HI* (04/29/18 6:13 PM) Eosinophils [0.0-4.0 %] 0.2 % (05/04/18 4:09 AM) 0.4 % (04/30/18 4:10 AM) 0.3 % (04/29/18 6:13 PM) Basophils [0.0-1.0 %] 2.6 K/CMM (05/04/18 4:09 AM) 2.5 K/CMM (04/30/18 4:10 AM) 2.9 K/CMM (04/29/18 6:13 PM) Segs-Bands # [1.5-8.1 K/CMM] 1.2 K/CMM (05/04/18 4:09 AM) 1.7 K/CMM (04/30/18 4:10 AM) 1.9 K/CMM (04/29/18 6:13 PM) Lymphocytes # [1.0-5.5 K/CMM] 0.6 K/CMM (05/04/18 4:09 AM) 0.6 K/CMM (04/30/18 4:10 AM) 0.6 K/CMM (04/29/18 6:13 PM) Monocytes # [0.0-0.8 K/CMM] 0.4 K/CMM (05/04/18 4:09 AM) 0.5 K/CMM (04/30/18 4:10 AM) 0.5 K/CMM (04/29/18 6:13 PM) Eosinophils # [0.0-0.5 K/CMM] 16.0 seconds *HI* (04/29/18 6:13 PM) PT [12.0-14.7 seconds] 1.27 *HI* (04/29/18 6:13 PM) INR [0.85-1.17] 45.8 seconds *HI* (04/30/18 10:56 AM) 73.6 seconds *HI* (04/30/18 5:26 AM) 36.4 seconds *HI* (04/29/18 6:13 PM) PTT [22.9-35.8 seconds] Immunizations Given and Recorded Vaccine Date Status Refusal Reason pneumococcal 13-valent vaccine 01/16/17 Given influenza virus vaccine, inactivated 01/16/17 G iven pneumococcal 23-valent vaccine 02/18/16 Given Procedures Procedure Date Related Diagnosis Body Site Status Abdominal hysterectomy Completed CABG x 1 - Coronary artery bypass graft x 1 Compl eted Cholecystectomy1 Completed Cholecystotomy Completed Eye care Completed 50981 Social History Social History Type Response Substance Abuse Use: None. Alcohol Never Smoking Status Never smoker; Exposure to T obacco Smoke None; Cigarette Smoking Last 365 Days No; Reg Smoking Cessation Counseli ng No entered on: 04/28/18 Assessment and Plan Extracted from: Title: Clinical Document Author: Az Carney MD Date: 05/05/18 Progress Note - Dr. Carney [facility] Attending: Angel Ley MDPhone: Service: Internal Medicine Code status: Full Code [Ordered] Reason for Admission: BILATERAL PLEURAL EFFUSION, CKD (CHRONIC KIDNEY DISEASE Working DRG: Isolation: No Isolation/Standard Precautions Consulting Physicians: Alexi Wisdom MDOffice: Service: Nephrology Az Carney MDOffice: Service: Pulmonary, Medicine Jon Guillermo MDOffice: Service: Cardiology Derrick Bullock MDOffice: Service: Cardiology Anastasiia Blackwood MDOffice: Service: Nephrology Nicolle Mix MDOffice: Service: Pulmonary, Medicine Allergies (1) ActiveReaction NKDANone documented Subjective: Is been doing okay denies chest pain nausea vomiting or other complaints pulmonary status remains stable Objective: HEENT atraumatic normocephalic neck was supple chest was reasonably clear heart sounds are normal abdomen is soft extremities no cyanosis clubbing or edema VitalsTmp(F)[id number] 05/05 11:[id number]/318111--- 05/05 07:17 94 21% 05/05 07:15 1896 21% 05/05 07:1499.463034/431506--- 05/05 04:0099.443494/307386--- 24 Hr Tmax: 99.3F (37.39c) at 05/05 07:1 4Vital Signs are the last 5 in the past 48 hours. Labs (Last four charted values) WBC 4.9(MAY 04)5.3(APR 30)5.9(APR 29)7.0(APR 28) Hgb L 8.5(MAY 04)L 9.2(MAY 03)L 8.3(APR 30)L 8.0(APR 29) Hct L 25.9(MAY 04)L 28.2(MAY 03)L 25.8(APR 30)L 25.1(APR 29) Plt L 129(MAY 04)L 118(APR 30)L 124(APR 29)152(APR 28) Na 140(MAY 04)139(MAY 02)139(MAY 01)144(APR 30) K 4.1(MAY 04)4.0(MAY 02)4.5(MAY 01)4.0(APR 30) CO2 32(MAY 04)29(MAY 02)27(MAY 01)30(APR 30) Cl 104(MAY 04)103(MAY 02)105(MAY 01)108(APR 30) Cr H 1.56(MAY 04)H 2.80(MAY 02)H 2.78(MAY 01)H 2.34(APR 30) BUN 15(MAY 04)H 46(MAY 02)H 39(MAY 01)H 31(APR 30) Glucose Random H 128(MAY 04)H 167(MAY 02)H 135(MAY 01)86(APR 30) Ca L 8.1(MAY 04)L 8.3(MAY 02)L 8.4(MAY 01)L 7.9(APR 30) PT H 16.0(APR 29) INR H 1.27(APR 29) PTT H 45.8(APR 30)H 73.6(APR 30)H 36.4(APR 29) Troponin 0.04(MAY 05)0.04(MAY 04)0.04(MAY 03)0.03(MAY 02) CK MB 2.8(APR 30)3.4(APR 29)H 3.9(APR 29)3.1(APR 29) Total CK 177(APR 30)H 200(APR 29)191(APR 29)105(APR 29)I&ORecordInOutBal 04/824hr Tot 498 100 398 04/724hr Tot [id number] Stroke Myocardial infarct Cholelithiasis Alzheimer disease Medications [...] Time Meds: None Continuous Infusions: None Assessment & Plan: Patient with history of microinfarction stroke [...] follow-up as an outpatient prognosis guarded Extracted from: Title: Cardiology Consultation Author: Derrick Bullock MD Srinivas e: 04/29/18 Impression and Plan - Chest pain [...] On IV lasix for now. Continue to [facility] as there does not appear to be much congestion on CXR and CT # HTN - Stable # HLD - On statin Extracted from: Title: General Admission H&P * Author: Medardo Nguyen MD D ate: 04/28/18 Patient: TED SCHREIBER Age: 68 years Sex: Female : [...] were documented., Allergies (1) ActiveReaction NKDANone Documented Problem list: All Problems ATN (acute tubular necrosis) / SNOMED CT 00674092 / Confirmed CKD (chronic kidney disease) stage 4, GFR 15-29 ml/min / SNOMED CT 5288827052 / Confirmed Coronary artery disease / SNOMED CT 82423099 / Confirmed Diabetes mellitus / SNOMED CT 347994697 / Confirmed Hepatitis C / SNOMED CT 59241036 / Confirmed Hypertension / SNOMED CT 3186505833 / Confirmed Volume overload / SNOMED CT 12131132 / Confirmed 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 Myocardial infarct ([id number]): Resolved. Cholelithiasis ([id number]): Resolved. Alzheimer disease (1798592409): Resolved. Family History: Procedure history: CABG x 1 - Coronary artery bypass graft x 1 (313936940). Cholecystotomy (59434709). Abdominal hysterectomy (738835687). Cholecystectomy (90415990). Comments: 02/17/2016 23:53 - Candy Null [employer] [facility] ([id number]). Social History Social & Psychosocial Habits Alcohol 04/28/2018 Use: Never Substance [...] Signs (last 24 hrs) Last Charted Temp Oral98.7 DegF (APR 28 22:13) Heart Rate Vizrjz26 bpm (APR 28 22:57) Resp Rate H 24BRMIN (APR 28 22:57) SBPH 172mmHg (APR 28 22:57) DBP87 mmHg (APR 28 22:57) FyZ017 % (APR 28 22:57) Egkzna62.545 kg (APR 28 17:20) Hrixpy968.4 cm (APR 28 17:20) BMI25.64 (APR 28 17:20) GENERAL: Patient awake, alert, oriented to time, [...] review: Labs (Last four charted values) WBC 7.0(APR 28) Hgb L 10.4(APR 28) Hct L 31.5(APR 28) Plt 152(APR 28) Na 142(APR 28) K 3.6(APR 28) CO2 26(APR 28) Cl 107(APR 28) Cr H 1.82(APR 28) BUN H 29(APR 28) Glucose Random 77(APR 28) Ca 8.5(APR 28) Troponin 0.03(APR 28) CK MB H 4.9(APR 28) Total CK 125(APR 28). Impression and Plan -Hypoglycemia in a patient [...] DISPO; expect ~ 2 MN stay Addendum Patient still hypoglycemic, will check fingerstick every 2 hourly and give D50 syringe 25 by Patrick, g bolus as needed. Not on continuous infusion given her volume overload state Medardo DELEON on 04/29/2018 00:28
--- OUTSIDE RECORDS SUMMARY | 2020-06-17 13:09 | XMS REPORT | Summary of Care ---
Author Author [facility] Organization [facility] Address Unknown Phone Unavailable Encounter ISRAEL Schroeder(MALOU) [id number] Date(s): 02/17/16 - 02/20/16 [facility] [address] [employer] provided by [facility] [place] [address]- Discharge Disposition: Home Attending Physician: Kyra Lema MD Admitting Physician: Kyra Lema MD Vital Signs 1 2 3 Most recent to oldest [Reference Range]: 152.4 cm (02/17/16 11:14 PM) 152.4 cm (02/17/16 1:01 PM) Height 98.1 DegF (02/20/16 4:59 PM) 98.4 DegF (02/20/16 11:50 AM) 98.6 DegF (02/20/16 7:56 AM) Temperature Oral [96.4-99.1 DegF] 124/64 mmHg (02/20/16 4:59 PM) 154/78 mmHg *HI* (02/20/16 11:50 AM) 103/61 mmHg (02/20/16 7:56 AM) Blood Pressure [90-140/60-90 mmHg] 18 BRMIN (02/20/16 4:59 PM) 18 BRMIN (02/20/16 11:50 AM) 18 BRMIN (02/20/16 7:56 AM) Respiratory Rate [14-20 BRMIN] 75 bpm (02/20/16 4:59 PM) 78 bpm (02/20/16 11:50 AM) 88 bpm (02/20/16 7:56 AM) Peripheral Pulse Rate [60-100 bpm] 46.364 kg (02/17/16 11:14 PM) 52.273 kg (02/17/16 1:01 PM) Weight 19.96 m2 (02/17/16 11:14 PM) 22.51 m2 (02/17/16 1:01 PM) Body Mass Index Problem List Condition Effective Dates Status Health Status Deshawn donis Cholelithiasis(Confi Resolved rmed) Diabetes Active mellitus(Confirmed) Hepatitis Active C(Confirmed) Myocardial Resolved infarct(Confirmed) Stroke(Confirmed) Resolved Allergies, Adverse Reactions, Alerts Substance Reaction Severity Status NKDA Active Medications aspirin 324 mg, 4 tab, Route: PO, Drug form: CHEWTAB, ONCE, Dosing Weight 52.273, kg, Pr iority: STAT, Start date: 02/17/16 14:01:00 CDT, Stop date: 02/17/16 14:01:00 CD T Start Date: 02/17/16 Stop Date: 02/17/16 Status: Completed BD Normal Saline Flush 10 mL, Route: IV, Drug Form: INJ, Q12H, Start date: 02/17/16 21:00:00 CDT, Durat ion: 30 day, Stop date: 03/18/16 9:00:00 CDT Notes: (Same as: BD Posiflush) Start Date: 02/17/16 Stop Date: 02/20/16 Status: Discontinued Dextrose 50% Syringe 25 gm, 50 mL, Route: IVP, Drug Form: INJ, Dosing Weight 52.273, kg, PRN, PRN Blo od Glucose Results, Start date: 02/17/16 21:22:00 CDT, Duration: 30 day, Stop da te: 03/18/16 21:21:00 CDT Start Date: 02/17/16 Stop Date: 02/20/16 Status: Discontinued Dextrose 50% Syringe 12.5 gm, 25 mL, Route: IVP, Drug Form: INJ, Dosing Weight 52.273, kg, PRN, PRN B lood Glucose Results, Start date: 02/17/16 21:22:00 CDT, Duration: 30 day, Stop date: 03/18/16 21:21:00 CDT Start Date: 02/17/16 Stop Date: 02/20/16 Status: Discontinued Dilaudid 1 mg, 0.5 mL, Route: IVP, Drug form: INJ, ONCE, Dosing Weight 52.273, kg, Priori ty: STAT, Start date: 02/17/16 18:31:00 CDT, Stop date: 02/17/16 18:31:00 CDT Notes: Same as: Dilaudid Start Date: 02/17/16 Stop Date: 02/17/16 Status: Completed glucagon 1 mg, Route: IM, Drug form: PDR/INJ, PRN, Dosing Weight 52.273, kg, PRN Blood Gl ucose Results, Start date: 02/17/16 21:22:00 CDT, Duration: 30 day, Stop date: 0 03/18/16 21:21:00 CDT Start Date: 02/17/16 Stop Date: 02/20/16 Status: Discontinued Humalog 30units, SUB-Q, Breakfast, 0 Refill(s) Start Date: 02/17/16 Stop Date: 02/20/16 Status: Discontinued insulin aspart 4 unit, 0.04 mL, Route: SUB-Q, Drug form: SOLN, TID-Before Meals, Dosing Weight 52.273, kg, PRN Blood Glucose Results, Start date: 02/17/16 21:22:00 CDT, Durati on: 30 , Stop date: 03/18/16 21::00 CDT Notes: Roll in palms of hands gently; Do not shake vigorously. (Same as: Raffaele Bowen)"single patient use only"WASTE: F/P - Black; E - Municipal Trash Bin Stable f or 28 days at room temperature.Expires in days from Date Start Date: 02/17/16 Stop Date: 02/20/16 Status: Discontinued insulin aspart 5 unit, 0.05 mL, Route: SUB-Q, Drug form: SOLN, TID-Before Meals, Dosing Weight 52.273, kg, PRN Blood Glucose Results, Start date: 02/17/16 21:22:00 CDT, Durati on: 30 day, Stop date: 03/18/16 21:21:00 CDT Notes: Roll in palms of hands gently; Do not shake vigorously. (Same as: NovoALYSSA G)"single patient use only"WASTE: F/P - Black; E - Municipal Trash Bin Stable f or 28 days at room temperature.Expires in days from Date Start Date: 02/17/16 Stop Date: 02/20/16 Status: Discontinued insulin aspart 2 unit, 0.02 mL, Route: SUB-Q, Drug form: SOLN, TID-Before Meals, Dosing Weight 52.273, kg, PRN Blood Glucose Results, Start date: 02/17/16 21:22:00 CDT, Durati on: 30 day, Stop date: 03/18/16 21:21:00 CDT Notes: Roll in palms of hands gently; Do not shake vigorously. (Same as: Raffaele Bowen)"single patient use only"WASTE: F/P - Black; E - Municipal Trash Bin Stable f or 28 days at room temperature.Expires in days from Date Start Date: 02/17/16 Stop Date: 02/20/16 Status: Discontinued insulin aspart 3 unit, 0.03 mL, Route: SUB-Q, Drug form: SOLN, TID-Before Meals, Dosing Weight 52.273, kg, PRN Blood Glucose Results, Start date: 02/17/16 21:22:00 CDT, Durati on: 30 day, Stop date: 03/18/16 21:21:00 CDT Notes: Roll in palms of hands gently; Do not shake vigorously. (Same as: Raffaele Bowen)"single patient use only"WASTE: F/P - Black; E - Municipal Trash Bin Stable f or 28 days at room temperature.Expires in days from Date Start Date: 02/17/16 Stop Date: 02/20/16 Status: Discontinued insulin aspart 1 unit, 0.01 mL, Route: SUB-Q, Drug form: SOLN, TID-Before Meals, Dosing Weight 52.273, kg, PRN Blood Glucose Results, Start date: 02/17/16 21:22:00 CDT, Durati on: 30 day, Stop date: 03/18/16 21:21:00 CDT Notes: Roll in palms of hands gently; Do not shake vigorously. (Same as: Raffaele Bowen)"single patient use only"WASTE: F/P - Black; E - Municipal Trash Bin Stable f or 28 days at room temperature.Expires in days from Date Start Date: 02/17/16 Stop Date: 02/20/16 Status: Discontinued insulin glargine 100 units/mL subcutaneous solution 20 unit, SUB-Q, Daily, # 10 mL, 0 Refill(s) Start Date: 02/20/16 Stop Date: 03/21/16 Status: Ordered Insulin regular 10 unit, 0.1 mL, Route: SUB-Q, Drug form: SOLN, ONCE, Dosing Weight 52.273, kg, Priority: STAT, Start date: 02/17/16 14:57:00 CDT, Stop date: 02/17/16 14:57:00 CDT Notes: (Same as: Humulin R) Roll in palms of hands gently; Do not shake vigorou sly. "single patient use only"(Restricted to patients requiring a dose > 60 units)WASTE: F/P - Black; E - Municipal Trash Bin Stable for 28 days at room temperatureExpires in days from Date Start Date: 02/17/16 Stop Date: 02/17/16 Status: Completed Insulin regular 10 unit, 0.1 mL, Route: SUB-Q, Drug form: SOLN, ONCE, Dosing Weight 52.273, kg, Priority: STAT, Start date: 02/17/16 18:26:00 CDT, Stop date: 02/17/16 18:26:00 CDT Notes: (Same as: Humulin R) Roll in palms of hands gently; Do not shake vigorou sly. "single patient use only"(Restricted to patients requiring a dose > 60 units)WASTE: F/P - Black; E - Municipal Trash Bin Stable for 28 days at room temperatureExpires in days from Date Start Date: 02/17/16 Stop Date: 02/17/16 Status: Completed Isolyte S PH-7.4 (Bolus) IV 500 mL, 500 ml/hr, Route: IV, Drug Form: SOLN, Dosing Weight 52.273, kg, ONCE, S tart date: 02/17/16 14:02:00 CDT, Stop date: 02/17/16 14:02:00 CDT Notes: (Same as: Isolyte S PH7.4) Start Date: 02/17/16 Stop Date: 02/17/16 Status: Completed Isolyte S PH-7.4 (Bolus) IV 1,000 mL, 1000 ml/hr, Route: IV, Drug Form: SOLN, Dosing Weight 52.273, kg, ONCE , Start date: 02/17/16 14:57:00 CDT, Stop date: 02/17/16 14:57:00 CDT Notes: (Same as: Isolyte S PH 7.4) Start Date: 02/17/16 Stop Date: 02/17/16 Status: Completed Isolyte S PH-7.4 (Bolus) IV 1,000 mL, 1000 ml/hr, Route: IV, Drug Form: SOLN, Dosing Weight 52.273, kg, ONCE , Start date: 02/17/16 18:27:00 CDT, Stop date: 02/17/16 18:27:00 CDT Notes: (Same as: Isolyte S PH 7.4) Start Date: 02/17/16 Stop Date: 02/18/16 Status: Discontinued Lantus 20 unit, 0.2 mL, Route: SUB-Q, Drug form: INJ, Daily, Dosing Weight 46.364, kg, Start date: 02/20/16 13:00:00 CDT, Duration: 30 day, Stop date: 03/21/16 9:00:00 CDT Notes: Same as Gerard Smith not hold insulin without contacting prescri lesa"single patient use only"WASTE: F/P - Black; E - Municipal Trash Bin Stable for 28 days at room temperature.Expires in days from Date Start Date: 02/20/16 Stop Date: 02/20/16 Status: Discontinued Lantus 50 unit, SUB-Q, Bedtime, 0 Refill(s) Start Date: 02/17/16 Stop Date: 02/20/16 Status: Discontinued lidocaine topical patch (5% film) 1 patch, Route: TOP, Daily, Drug form: FILM, Start date: 02/18/16 13:00:00 CDT, Duration: 30 day, Stop date: 03/18/16 13:00:00 CDT Notes: Apply only once for up to 12 hours in [id number] period (12 hours on and 12 hours off).(Same as: Lidoderm)"Remove old patch before application of new patch" Start Date: 02/18/16 Stop Date: 02/20/16 Status: Discontinued lidocaine topical patch (5% film) 1 patch, TOP, Daily, # 30 patch, 0 Refill(s) Start Date: 02/20/16 Status: Ordered lisinopril 5 mg, 1 tab, Route: PO, Drug form: TAB, Daily, Dosing Weight 46.364, kg, Start d ate: 02/18/16 9:00:00 CDT, Duration: 30 day, Stop date: 03/18/16 9:00:00 CDT Notes: (Same as: Prinivil, Zestril) Start Date: 02/18/16 Stop Date: 02/20/16 Status: Discontinued metFORMIN 500 mg oral tablet 500 mg, 1 tab, Route: PO, Drug form: TAB, BID, Dosing Weight 46.364, kg, Start d ate: 02/20/16 17:00:00 CDT, Duration: 30 day, Stop date: 03/21/16 9:00:00 CDT Notes: (Same as: Glucophage) Take with meal Start Date: 02/20/16 Stop Date: 02/20/16 Status: Discontinued metFORMIN 500 mg oral tablet 500 mg = 1 tab, PO, BID, # 60 tab, 0 Refill(s) Start Date: 02/20/16 Stop Date: 03/21/16 Status: Ordered morphine Sulfate 2 mg, 1 mL, Route: IV, Drug form: INJ, Q3H, Dosing Weight 52.273, kg, PRN Pain S core 6-10, Start date: 02/17/16 21:17:00 CDT, Duration: 30 day, Stop date: 03/18 21:16:00 CDT Notes: (Same as:MORPhine Sulfate) Start Date: 02/17/16 Stop Date: 02/20/16 Status: Discontinued morphine Sulfate 4 mg, Route: IVP, Drug form: INJ, ONCE, Dosing Weight 52.273, kg, Priority: STAT , Start date: 02/17/16 16:18:00 CDT, Stop date: 02/17/16 16:18:00 CDT Start Date: 02/17/16 Stop Date: 02/17/16 Status: Completed morphine Sulfate 2 mg, 1 mL, Route: IVP, Drug form: INJ, ONCE, Dosing Weight 52.273, kg, Priority : STAT, Start date: 02/17/16 14:01:00 CDT, Stop date: 02/17/16 14:01:00 CDT Notes: (Same as:MORPhine Sulfate) Start Date: 02/17/16 Stop Date: 02/17/16 Status: Completed nitroglycerin 0.4 mg sublingual tablet 0.4 mg, 1 tab, Route: SL, Drug form: TAB, Q5Min, Dosing Weight 52.273, kg, Start date: 02/17/16 14:25:00 CDT, Duration: 30 day, Stop date: 03/18/16 14:20:00 CDT Notes: (Same as:Nitroquick, Nitrostat)"Do Not Crush" Sublingual tablet Start Date: 02/17/16 Stop Date: 02/17/16 Status: Discontinued nitroglycerin 2% ointment 0.5 inch, Route: TOP, Drug Form: OINT, Dosing Weight 52.273, kg, ONCE, STAT, Sta rt date: 02/17/16 14:24:00 CDT, Stop date: 02/17/16 14:24:00 CDT Notes: 1 gram is approximately 1 inch of nitroglycerin ointment (20 mg NTG pe r gram) (Same as:Nitro-Bid) Start Date: 02/17/16 Stop Date: 02/17/16 Status: Completed nitroglycerin SL Tab 0.4 mg, Route: SL, ONCE, Dosing Weight 52.273, kg, Start date: 02/17/16 14:23:00 CDT, Stop date: 02/17/16 14:23:00 CDT Start Date: 02/17/16 Stop Date: 02/17/16 Status: Completed [place] 5/325 oral tablet 1 tab, PO, Q6H, PRN Pain Score 4-6, # 30 tab, 0 Refill(s) Start Date: 02/20/16 Status: Ordered [place] 5/325 oral tablet 1 tab, Route: PO, Drug Form: TAB, Dosing Weight 46.364, kg, Q6H, PRN Pain Score 4-6, Start date: 02/18/16 4:46:00 CDT, Duration: 30 day, Stop date: 03/19/16 4:4 5:00 CDT Notes: (Same as: [place] 325/5) Do not exceed 4gm/day of acetaminophen. Start Date: 02/18/16 Stop Date: 02/20/16 Status: Discontinued ondansetron 4 mg, 2 mL, Route: IVP, Drug form: INJ, ONCE, Dosing Weight 52.273, kg, PRN Naus ea & Vomiting, Start date: 02/17/16 21:17:00 CDT Notes: (Same as: Rosanne) MEDICATION WASTE Product Size: 4 mgProduct Was lorena: 0 mg Start Date: 02/17/16 Stop Date: 02/20/16 Status: Discontinued pneumococcal 23-valent vaccine 0.5 mL, Route: IM, Drug Form: INJ, Daily, Start date: 02/18/16 9:00:00 CDT, Dura tion: 1 doses or times, Stop date: 02/18/16 9:00:00 CDT Notes: (Same as: Pneumovax 23) Refrigerate Start Date: 02/18/16 Stop Date: 02/18/16 Status: Deleted Pneumovax 23 0.5 mL, Route: IM, Drug Form: INJ, Daily, Start date: 02/18/16 14:00:00 CDT, Dur ation: 1 doses or times, Stop date: 02/18/16 14:00:00 CDT Notes: (Same as: Pneumovax 23) Refrigerate Start Date: 02/18/16 Stop Date: 02/18/16 Status: Completed remove patch 1 patch, Route: TOP, Q24H, Drug form: ERFILM, Start date: 02/19/16 1:00:00 CDT, Duration: 30 day, Stop date: 03/19/16 1:00:00 CDT Notes: Remove patch 12 hours after application each day. Start Date: 02/19/16 Stop Date: 02/20/16 Status: Discontinued Saline Flush 0.9% 10 ml, Route: IVP, Drug Form: INJ, Dosing Weight 52.273, kg, PRN, PRN Line Flush , Start date: 02/17/16 21:18:00 CDT, Duration: 30 day, Stop date: 03/18/16 21:17 :00 CDT Notes: (Same as: BD Posiflush) Start Date: 02/17/16 Stop Date: 02/20/16 Status: Discontinued Saline Flush 0.9% 10 ml, Route: IVP, Drug Form: INJ, Dosing Weight 52.273, kg, Q12H, Start date: 0 02/18/16 9:00:00 CDT, Duration: 30 day, Stop date: 03/18/16 21:00:00 CDT Notes: (Same as: BD Posiflush) Start Date: 02/18/16 Stop Date: 02/20/16 Status: Discontinued Saline Flush 0.9% 10 mL, Route: IVP, Drug Form: INJ, Dosing Weight 52.273, kg, PRN, PRN Line Flush , Start date: 02/17/16 14:01:00 CDT, Duration: 30 day, Stop date: 03/18/16 14:00 :00 CDT Notes: (Same as: BD Posiflush) Start Date: 02/17/16 Stop Date: 02/20/16 Status: Discontinued Sodium Chloride 0.9% (Bolus) IV 125 mL, 125 ml/hr, Infuse Over: 1 hr, Route: IV, 125, Drug form: INJ, ONCE, Prio rity: STAT, Dosing Weight 52.273 kg, Start date: 02/17/16 21:43:00 CDT, Duration : 1 doses or times, Stop date: 02/17/16 21:43:00 CDT Start Date: 02/17/16 Stop Date: 02/18/16 Status: Discontinued Sodium Chloride 0.9% IV 1,000 mL 1,000 mL, Rate: 125 ml/hr, Infuse over: 8 hr, Route: IV, Dosing Weight 46.364 kg , Total Volume: 1,000, Start date: 02/18/16 0:22:00 CDT, Duration: 30 day, Stop date: 03/19/16 0:21:00 CDT Start Date: 02/18/16 Stop Date: 02/19/16 Status: Discontinued Results ELECTROLYTES 1 2 3 Most recent to oldest [Reference Range]: 142 mEq/L (02/20/16 5:43 AM) 140 mEq/L (02/19/16 3:26 AM) 140 mEq/L (02/18/16 10:53 AM) Sodium Lvl [135-145 mEq/L] 4.5 mEq/L (02/20/16 5:43 AM) 4.2 mEq/L (02/19/16 3:26 AM) 4.4 mEq/L (02/18/16 10:53 AM) Potassium Lvl [3.5-5.1 mEq/L] 113 mEq/L *HI* (02/20/16 5:43 AM) 109 mEq/L (02/19/16 3:26 AM) 106 mEq/L (02/18/16 10:53 AM) Chloride Lvl [95-109 mEq/L] 23 mEq/L *LOW* (02/20/16 5:43 AM) 25 mEq/L (02/19/16 3:26 AM) 27 mEq/L (02/18/16 10:53 AM) CO2 [24-32 mEq/L] 10.5 mEq/L (02/20/16 5:43 AM) 10.2 mEq/L (02/19/16 3:26 AM) 11.4 mEq/L (02/18/16 10:53 AM) AGAP [10.0-20.0 mEq/L] CHEM PANEL 1 2 3 Most recent to oldest [Reference Range]: 1.17 mg/dL (02/20/16 5:43 AM) 0.99 mg/dL (02/19/16 3:26 AM) 1.07 mg/dL (02/18/16 10:53 AM) Creatinine Lvl [0.50-1.40 mg/dL] 49 mL/min/1.73m2 1 *NA* (02/20/16 5:43 AM) 60 mL/min/1.73m2 2 *NA* (02/19/16 3:26 AM) 55 mL/min/1.73m2 3 *NA* (02/18/16 10:53 AM) eGFR 14 mg/dL (02/20/16 5:43 AM) 13 mg/dL (02/19/16 3:26 AM) 17 mg/dL (02/18/16 10:53 AM) BUN [7-22 mg/dL] 12 (02/20/16 5:43 AM) 13 (02/19/16 3:26 AM) 18 (02/18/16 4:46 AM) B/C Ratio [6-25] 183 mg/dL *HI* (02/20/16 5:43 AM) 171 mg/dL *HI* (02/19/16 3:26 AM) 155 mg/dL *HI* (02/18/16 10:53 AM) Glucose Lvl [70-99 mg/dL] 5.9 g/dL *LOW* (02/20/16 5:43 AM) 5.8 g/dL *LOW* (02/19/16 3:26 AM) 7.2 g/dL (02/18/16 4:46 AM) Total Protein [6.4-8.4 g/dL] 2.2 g/dL *LOW* (02/20/16 5:43 AM) 2.3 g/dL *LOW* (02/19/16 3:26 AM) 2.9 g/dL *LOW* (02/18/16 4:46 AM) Albumin Lvl [3.5-5.0 g/dL] 3.7 g/dL (02/20/16 5:43 AM) 3.5 g/dL (02/19/16 3:26 AM) 4.3 g/dL *HI* (02/18/16 4:46 AM) Globulin [2.0-4.0 g/dL] 0.6 *LOW* (02/20/16 5:43 AM) 0.7 (02/19/16 3:26 AM) 0.7 (02/18/16 4:46 AM) A/G Ratio [0.7-1.6] 7.5 mg/dL *LOW* (02/20/16 5:43 AM) 7.6 mg/dL *LOW* (02/19/16 3:26 AM) 7.8 mg/dL *LOW* (02/18/16 10:53 AM) Calcium Lvl [8.5-10.5 mg/dL] 3.9 mg/dL (02/17/16 2:09 PM) Phosphorus [2.5-4.5 mg/dL] 2.2 mg/dL (02/17/16 2:09 PM) Magnesium Lvl [1.8-2.4 mg/dL] 14 unit/L (02/20/16 5:43 AM) 17 unit/L (02/19/16 3:26 AM) 18 unit/L (02/18/16 4:46 AM) ALT [0-65 unit/L] 30 unit/L (02/20/16 5:43 AM) 23 unit/L (02/19/16 3:26 AM) 23 unit/L (02/18/16 4:46 AM) AST [0-37 unit/L] 85 unit/L (02/20/16 5:43 AM) 71 unit/L (02/19/16 3:26 AM) 95 unit/L (02/18/16 4:46 AM) Alk Phos [39-136 unit/L] 0.4 mg/dL (02/20/16 5:43 AM) 0.5 mg/dL (02/19/16 3:26 AM) 0.4 mg/dL (02/18/16 4:46 AM) Bili Total [0.2-1.3 mg/dL] 0.1 mg/dL (02/17/16 2:09 PM) Bili Direct [0.0-0.3 mg/dL] 0.3 mg/dL (02/17/16 2:09 PM) Bili Indirect [0.0-1.0 mg/dL] 253 unit/L (02/18/16 10:53 AM) 1046 unit/L *HI* (02/17/16 2:09 PM) Lipase Lvl [73-393 unit/L] 1Result Comment: [...] 3 Most recent to oldest [Reference Range]: 42 unit/L (02/18/16 4:46 AM) 69 unit/L (02/17/16 10:42 PM) 43 unit/L (02/17/16 2:09 PM) Total CK [12-191 unit/L] <0.5 ng/mL (02/17/16 2:09 PM) CK MB [0.5-3.6 ng/mL] see note 1 *NA* (02/17/16 2:09 PM) CK MB Index [0.0-2.5] <0.010 ng/mL (02/18/16 4:46 AM) <0.010 ng/mL (02/17/16 10:42 PM) Troponin-T [0.000-0.100 ng/mL] <0.02 ng/mL (02/18/16 4:46 AM) <0.02 ng/mL (02/17/16 10:42 PM) <0.02 ng/mL (02/17/16 2:09 PM) Troponin-I [0.00-0.40 ng/mL] 1Result Comment: result not reported due to low MMB value. TG LIPIDS 1 2 3 Most recent to oldest [Reference Range]: 4.74 (02/17/16 7:07 PM) CHD Risk [3.90-5.80] 180 mg/dL (02/17/16 7:07 PM) Chol [<=199 mg/dL] 274 mg/dL *HI* (02/17/16 7:07 PM) Trig [<=149 mg/dL] 38 mg/dL *LOW* (02/17/16 7:07 PM) HDL [>=61 mg/dL] 87 mg/dL (02/17/16 7:07 PM) LDL (Calculated) [<=99 mg/dL] 55 *NA* (02/17/16 7:07 PM) VLDL SPECIAL CHEMISTRY 1 2 3 Most recent to oldest [Reference Range]: 13.2 % *HI* (02/18/16 4:46 AM) Hgb A1C [<=5.6 %] URINE AND STOOL 1 2 3 Most recent to oldest [Reference Range]: Slight Cloudy (02/17/16 4:37 PM) Slight Cloudy (02/17/16 1:18 PM) UA Turbidity [Clear] Yellow *NA* (02/17/16 4:37 PM) Yellow *NA* (02/17/16 1:18 PM) UA Color [Yellow] 6.0 (02/17/16 4:37 PM) 6.0 (02/17/16 1:18 PM) UA pH [5.0-8.0] 1.019 (02/17/16 4:37 PM) 1.023 *NA* (02/17/16 1:18 PM) UA Spec Grav [<=1.030] >=1000 mg/dL *ABN* (02/17/16 4:37 PM) >=1000 mg/dL *ABN* (02/17/16 1:18 PM) UA Glucose [Negative mg/dL] Trace *ABN* (02/17/16 4:37 PM) Trace *ABN* (02/17/16 1:18 PM) UA Blood [Negative] Negative *NA* (02/17/16 4:37 PM) Negative *NA* (02/17/16 1:18 PM) UA Ketones [Negative] Trace *ABN* (02/17/16 4:37 PM) UA Protein [Negative] 30 mg/dL *ABN* (02/17/16 1:18 PM) UA Protein [Negative mg/dL] 0.2 EU/dL (02/17/16 4:37 PM) 0.2 EU/dL (02/17/16 1:18 PM) UA Urobilinogen [0.1-1.0 EU/dL] Negative *NA* (02/17/16 4:37 PM) Negative *NA* (02/17/16 1:18 PM) UA Bili [Negative] Negative (02/17/16 4:37 PM) Negative (02/17/16 1:18 PM) UA Leuk Est [Negative] Negative (02/17/16 4:37 PM) Negative (02/17/16 1:18 PM) UA Nitrite [Negative] None Seen (02/17/16 4:37 PM) UA WBC [None Seen] 11-20 /HPF *ABN* (02/17/16 1:18 PM) UA WBC [None Seen /HPF] None Seen (02/17/16 4:37 PM) UA RBC [0-2] 0-2 /HPF (02/17/16 1:18 PM) UA RBC [0-2 /HPF] Many /HPF (02/17/16 4:37 PM) Many /HPF (02/17/16 1:18 PM) UA Bacteria [None Seen /HPF] Occasional /LPF (02/17/16 4:37 PM) Moderate /LPF *ABN* (02/17/16 1:18 PM) UA Sq Epi [Few /LPF] Performed (02/17/16 4:37 PM) Performed (02/17/16 1:18 PM) Micro? IMMUNOLOGY 1 2 3 Most recent to oldest [Reference Range]: Negative (02/17/16 2:19 PM) CDC HIV 4th GEN [Negative] Positive *NA* (02/17/16 2:19 PM) Positive *NA* (02/17/16 2:19 PM) [place]-Hep C Ab [Negative] HEMATOLOGY 1 2 3 Most recent to oldest [Reference Range]: 5.6 K/CMM (02/20/16 5:43 AM) 5.8 K/CMM (02/19/16 3:26 AM) 8.7 K/CMM (02/18/16 4:46 AM) WBC [3.7-10.4 K/CMM] 3.13 M/CMM *LOW* (02/20/16 5:43 AM) 3.26 M/CMM *LOW* (02/19/16 3:26 AM) 3.71 M/CMM *LOW* (02/18/16 4:46 AM) RBC [4.20-5.40 M/CMM] 9.3 g/dL *LOW* (02/20/16 5:43 AM) 9.6 g/dL *LOW* (02/19/16 3:26 AM) 11.2 g/dL *LOW* (02/18/16 4:46 AM) Hgb [12.0-16.0 g/dL] 27.4 % *LOW* (02/20/16 5:43 AM) 28.5 % *LOW* (02/19/16 3:26 AM) 32.0 % *LOW* (02/18/16 4:46 AM) Hct [36.0-48.0 %] 87.6 fL (02/20/16 5:43 AM) 87.2 fL (02/19/16 3:26 AM) 86.3 fL (02/18/16 4:46 AM) MCV [80.0-98.0 fL] 29.8 pg (02/20/16 5:43 AM) 29.5 pg (02/19/16 3:26 AM) 30.2 pg (02/18/16 4:46 AM) MCH [27.0-31.0 pg] 34.0 g/dL (02/20/16 5:43 AM) 33.8 g/dL (02/19/16 3:26 AM) 35.0 g/dL (02/18/16 4:46 AM) MCHC [32.0-36.0 g/dL] 13.1 % (02/20/16 5:43 AM) 13.1 % (02/19/16 3:26 AM) 13.1 % (02/18/16 4:46 AM) RDW [11.5-14.5 %] 128 K/CMM *LOW* (02/20/16 5:43 AM) 115 K/CMM *LOW* (02/19/16 3:26 AM) 144 K/CMM (02/18/16 4:46 AM) Platelet [133-450 K/CMM] 8.5 fL (02/20/16 5:43 AM) 8.0 fL (02/19/16 3:26 AM) 8.2 fL (02/18/16 4:46 AM) MPV [7.4-10.4 fL] 49.5 % (02/20/16 5:43 AM) 47.9 % (02/19/16 3:26 AM) 64.9 % (02/18/16 4:46 AM) Segs [45.0-75.0 %] 35.3 % (02/20/16 5:43 AM) 36.6 % (02/19/16 3:26 AM) 25.2 % (02/18/16 4:46 AM) Lymphocytes [20.0-40.0 %] 8.3 % (02/20/16 5:43 AM) 7.9 % (02/19/16 3:26 AM) 5.7 % (02/18/16 4:46 AM) Monocytes [2.0-12.0 %] 6.6 % *HI* (02/20/16 5:43 AM) 7.2 % *HI* (02/19/16 3:26 AM) 4.0 % (02/18/16 4:46 AM) Eosinophils [0.0-4.0 %] 0.3 % (02/20/16 5:43 AM) 0.4 % (02/19/16 3:26 AM) 0.2 % (02/18/16 4:46 AM) Basophils [0.0-1.0 %] 2.8 K/CMM (02/20/16 5:43 AM) 2.8 K/CMM (02/19/16 3:26 AM) 5.6 K/CMM (02/18/16 4:46 AM) Segs-Bands # [1.5-8.1 K/CMM] 2.0 K/CMM (02/20/16 5:43 AM) 2.1 K/CMM (02/19/16 3:26 AM) 2.2 K/CMM (02/18/16 4:46 AM) Lymphocytes # [1.0-5.5 K/CMM] 0.5 K/CMM (02/20/16 5:43 AM) 0.5 K/CMM (02/19/16 3:26 AM) 0.5 K/CMM (02/18/16 4:46 AM) Monocytes # [0.0-0.8 K/CMM] 0.4 K/CMM (02/20/16 5:43 AM) 0.4 K/CMM (02/19/16 3:26 AM) 0.3 K/CMM (02/18/16 4:46 AM) Eosinophils # [0.0-0.5 K/CMM] Immunizations Vaccine Date Refusal Reason pneumococcal 23-valent vaccine 02/18/16 Procedures Procedure Date Related Diagnosis Body Site Abdominal hysterectomy CABG x 1 - Coronary artery bypass graft x 1 Cholecystectomy1 Cholecystotomy 97187 Social History Social History Type Response Substance Abuse Use: None. Alcohol Never Smoking Status Never smoker; Exposure to T obacco Smoke None; Cigarette Smoking Last 365 Days No; Reg Smoking Cessation Counseli ng No Assessment and Plan Extracted from: Title: Discharge Summary Author: Kyra Lema Date: 02/20/16 Discharge Summary Date of Admission: [...] and MÓNICA appear resolved. Procedures: none Consultations: ND endocrinology Physical examination: Gen: no acute distress. [...] by me on day of discharge. Extracted from: Title: Endocrine Author: Boyd Sneed MD Date: Endocrine Consult Note: [id number] 1950) F Attending: Kyra Lema MDPhone: Service: Internal Medicine DATE OF CONSULT: 02/20/2016 REFERRING PHYSICIAN: Dr Lema CONSULTING PHYSICIAN: Dr Sneed REASON FOR CONSULTATION: Type 2 diabetes CHIEF COMPLAINT: syncope HISTORY OF PRESENT ILLNESS: Ms. Schreiber is a 66 yo female with type 2 diabetes, h/o TN and cholecystectomy who presents with syncopal episode. TN was ruled out with cardiac enzymes and [...] Has protein in the urine. History of TN 4 years ago but unknown if any stents placed. Mother and both sisters have diabetes. Father had TN, age 86. No thyroid problems. Today she is tolerating full po diet without nausea or vomiting. She is complaining of sternal chest pain and epigastric pain. PAST MEDICAL HISTORY: type 2 diabetes, h/o TN PAST SURGICAL HISTORY: cholecystectomy SOCIAL HISTORY: lives with a friend, denies smoking and alcohol FAMILY HISTORY: Mother and both sisters have diabetes. Father had TN, age 86. Allergies (1) ActiveReaction NKDANone documented Medications (17) Active Scheduled Meds (5): [...] fatigue PHYSICAL EXAMINATION: Vital Signs - Reviewed VitalsTmp(F)[id number] 02/19 11:[id number]--- 02/19 07:[id number]--- 02/19 05:[id number]--- 02/18 20:[id number]--- 02/18 20:30 100--- 24 Hr Tmax: 99.3F (37.39c) at 02/18 20:4 6Vital Signs are the last 5 in the past 48 hours. DateWt(kg)Wt(lb)Ht(cm)Ht(in)Method 02/16 (initial) 52.27 115.00Estimated 52.40 60.00Stated GEN: NAD, uncomfortable HEENT: periorbital edema, EOMI, [...] deficits DATA: 24hr Labs 02/19 1130 Glucose TSE846 H 02/19 0721 Glucose HPQ478 H 02/19 0638 Glucose KEU648 H 02/19 0543 Sodium Wbh354 Potassium Lvl4.5 Chloride Uip990 H CO223 L AGAP10.5 Glucose Xmx847 H Creatinine Lvl1.17 BUN14 B/C Ratio12 Total Protein5.9 L Albumin Lvl2.2 L Globulin3.7 A/G Ratio0.6 L Calcium Lvl7.5 L ALT14 AST30 Alk Phos85 Bili Total0.4 eGFR49 WBC5.6 RBC3.13 L Hgb9.3 L Hct27.4 L MCV87.6 MCH29.8 MCHC34.0 RDW13.1 Ulicayie998 L MPV8.5 Segs49.5 Monocytes8.3 Hapxgjoccfv16.3 Eosinophils6.6 H Basophils0.3 Segs-Bands #2.8 Lymphocytes #2.0 Monocytes #0.5 Eosinophils #0.4 02/18 2045 Glucose AJQ374 H 02/18 1641 Glucose TSH694 H 02/18 1233 Glucose QOY593 H ASSESSMENT AND PLAN: Ms. Schreiber is a 66 yo female with type 2 diabetes (A1c 13.2%) complicated by retinopathy, neuropathy and h/o TN and HCV? cirrhosis who presents with syncopal [...] level. She states she falls frequently. Extracted from: Title: Clinical Document Author: Candi Mcclelland te: 02/18/16 Progress Note Patient Name: Mary Schreiber Date: 02/18/2016 Hospital Day Number: 2 S: 56yo with history of DM, HTN, TN, CVA, and cholelithiasis s/p cholecystecomy presented for [...] and qhs and Lantus 20U daily. O: VitalsTmp(F)RjobrGTVYRqD0LOV6 02/17 07:3197.685560/940089--- 02/17 03:3898.082313/597972--- 02/16 23:2598.969621/310828--- 02/16 23:15----85 02/16 22:27----[id number]--- 24 Hr Tmax: 98.7F (37.06c) at 02/17 03:3 8Vital Signs are the last 5 in [...] CTA head/neck, RUQ US Consults: Diabetic Education, Hand Compositor A/P: 1.) Syncope - resolved - IV fluids 150/hr 2.) Hyperglycemia - Glucose q2hr - Repeat BMP - Continue Insulin Sliding scale - DM Education 3.) Acute Pancreatitis - RUQ US - showing cholecystectomy and c irrhosis - Trending Lipase - Will advance diet to clear liquids 4.) Hepatitis C + - Further outpatient workup. She is sup posed to see Dr. Vu as referred by her PCP. Disposition: Will make inpatient admission Hospitalist is primary page [phone] with questions Addendum I saw and examined Ms. Sergio greenwood today. On my examination, tenderness was predominantly by over sternum and likely due to injury and fall and worse with palpation or coughing. Torey, Epigastric tenderness had r esolved. Kyra Otherwise, I agree with OMAYRA Mcclelland's documentation.HepC now with evidence of cirrhosis [place] on ultrasound will need out patient followup - she has been referred to process development engineer by her MD on PCP already. She has very p oor understanding of managing her health, specifically 02/18/2016 diabetes. DM educator if po radha, social work consultation. 21:55
--- OUTSIDE RECORDS SUMMARY | 2020-06-17 13:09 | XMS REPORT | Summary of Care ---
Author Author [facility] Organization [facility] Address Unknown Phone Unavailable Encounter HQ Elda(FIN) [id number] Date(s): 02/12/19 - 02/12/19 [facility] [address] [place] [address]- Discharge Disposition: LBTC Left B4 Treatment Cmplt-MSE Cmplt Attending Physician: Az Flores MD Vital Signs Most recent to 1 2 oldest [Reference Range]: Height 152.4 cm (02/12/19 1:10 PM) Temperature Oral 97.7 DegF 98.1 DegF [96.4-99.1 DegF] (02/12/19 4:33 PM) (02/12/19 1:10 PM) Blood Pressure 140/75 mmHg 127/61 mmHg [90-140/60-90 mmHg] (02/12/19 4:33 PM) (02/12/19 1:10 PM) Respiratory Rate 18 BRMIN 18 BRMIN [14-20 BRMIN] (02/12/19 4:33 PM) (02/12/19 1:10 PM) Peripheral Pulse 68 bpm 70 bpm Rate [60-100 bpm] (02/12/19 4:33 PM) (02/12/19 1:10 PM) Weight 57.273 kg (02/12/19 1:10 PM) Body Mass Index 24.66 m2 (02/12/19 1:10 PM) Problem List Condition Effective Dates Status [...] by Discern Expert. Allergies, Adverse Reactions, Alerts Substance Reaction Severity Status NKDA Active Medications No data available for this section Results ELECTROLYTES Most recent to 1 oldest [Reference Range]: Sodium Lvl [135-145 138 mEq/L mEq/L] (02/12/19 4:23 PM) Potassium Lvl 4.8 mEq/L [3.5-5.1 mEq/L] (02/12/19 4:23 PM) Chloride Lvl [95-109 103 mEq/L mEq/L] (02/12/19 4:23 PM) CO2 [24-32 mEq/L] 33 mEq/L *HI* (02/12/19 4:23 PM) AGAP [10.0-20.0 6.8 mEq/L mEq/L] *LOW* (02/12/19 4:23 PM) CHEM PANEL Most recent to 1 oldest [Reference Range]: Creatinine Lvl 4.57 mg/dL [0.50-1.40 mg/dL] *HI* (02/12/19 4:23 PM) eGFR 9 mL/min/1.73m2 1 *NA* (02/12/19 4:23 PM) BUN [7-22 mg/dL] 34 mg/dL *HI* (02/12/19 4:23 PM) B/C Ratio [6-25] 7 (02/12/19 4:23 PM) Glucose Lvl [70-99 107 mg/dL mg/dL] *HI* (02/12/19 4:23 PM) Total Protein 8.9 g/dL [6.4-8.4 g/dL] *HI* (02/12/19 4:23 PM) Albumin Lvl [3.5-5.0 3.2 g/dL g/dL] *LOW* (02/12/19 4:23 PM) Globulin [2.7-4.2 5.7 g/dL g/dL] *HI* (02/12/19 4:23 PM) A/G Ratio [0.7-1.6] 0.6 *LOW* (02/12/19 4:23 PM) Calcium Lvl 8.7 mg/dL [8.5-10.5 mg/dL] (02/12/19 4:23 PM) ALT [0-65 unit/L] 18 unit/L (02/12/19 4:23 PM) AST [0-37 unit/L] 62 unit/L *HI* (02/12/19 4:23 PM) Alk Phos [39-136 182 unit/L unit/L] *HI* (02/12/19 4:23 PM) Bili Total [0.2-1.3 0.5 mg/dL mg/dL] (02/12/19 4:23 PM) 1Result Comment: The eGFR is calculated [...] BMI. CARDIAC ENZYMES Most recent to 1 oldest [Reference Range]: Troponin-I <0.02 ng/mL [0.00-0.40 ng/mL] (02/12/19 4:23 PM) Immunizations Given and Recorded Vaccine Date Status Refusal Reason pneumococcal 13-valent vaccine 01/16/17 Given influenza virus vaccine, inactivated 01/16/17 G iven pneumococcal 23-valent vaccine 02/18/16 Given Procedures Procedure Date Related Diagnosis Body Site Status Abdominal hysterectomy Completed CABG x 1 - Coronary artery bypass graft x 1 Compl eted Cholecystectomy1 Completed Cholecystotomy Completed Eye care Completed 53609 Social History Social History Type Response Substance Abuse Use: None. Alcohol Never Smoking Status Never smoker; Exposure to T obacco Smoke None; Cigarette Smoking Last 365 Days No; Reg Smoking Cessation Counseli ng No entered on: 11/01/18 Assessment and Plan No data available for this section
--- OUTSIDE RECORDS SUMMARY | 2020-06-17 13:09 | XMS REPORT | Summary of Care ---
Author Author [facility] Organization [facility] Address Unknown Phone Unavailable Encounter ISRAEL Schroeder(FIN) [id number] Date(s): 12/30/19 - 12/30/19 [facility] [address] [place] [address]- Encounter Diagnosis LLOYD (headache) (Discharge Diagnosis) - 12/30/19 Discharge Disposition: Home or Self Care Attending Physician: Brianne Castro DO Vital Signs 1 2 3 Most recent to oldest [Reference Range]: 98.0 DegF (12/30/19 4:42 PM) 98 DegF (12/30/19 11:16 AM) Temperature Oral [96.4-99.1 DegF] 126/58 mmHg (12/30/19 4:42 PM) 123/56 mmHg (12/30/19 4:00 PM) 135/66 mmHg (12/30/19 3:00 PM) Blood Pressure [90-140/60-90 mmHg] 13 BRMIN *LOW* (12/30/19 4:42 PM) 14 BRMIN (12/30/19 4:00 PM) 12 BRMIN *LOW* (12/30/19 3:00 PM) Respiratory Rate [14-20 BRMIN] 90 bpm (12/30/19 11:16 AM) Peripheral Pulse Rate [60-100 bpm] 58.182 kg (12/30/19 11:16 AM) Weight Problem List Condition Effective Dates Status [...] Reactions, Alerts No Known Medication Allergies Medications Benadryl 12.5 mg, Route: IVP, ONCE, Dosing Weight 58.182, kg, Priority: STAT, Start date: 12/30/19 12:51:00 PROGRAM TRAINER, Stop date: 12/30/19 12:51:00 PROGRAM TRAINER Start Date: 12/30/19 Stop Date: 12/30/19 Status: Completed Compazine + Sodium Chloride 0.9% IV 50 mL 10 mg, 2 mL, Route: IVPB, Drug form: INJ, ONCE, Dosing Weight 58.182, kg, Priori ty: STAT, Start date: 12/30/19 12:51:00 PROGRAM TRAINER, Stop date: 12/30/19 12:51:00 PROGRAM TRAINER, 0 Notes: (Same as: Compazine) Start Date: 12/30/19 Stop Date: 12/30/19 Status: Completed dexamethasone 10 mg, Route: IVP, ONCE, Dosing Weight 58.182, kg, Priority: STAT, Start date: 0 12/30/19 12:51:00 PROGRAM TRAINER, Stop date: 12/30/19 12:51:00 PROGRAM TRAINER Start Date: 12/30/19 Stop Date: 12/30/19 Status: Completed Saline Flush 0.9% 10 mL, Route: IVP, Drug Form: INJ, Dosing Weight 58.182, kg, PRN, PRN Line Flush , Start date: 12/30/19 11:29:00 PROGRAM TRAINER, Duration: 30 day, Stop date: 01/29/20 12:28 :00 CDT, 0 Notes: (Same as: BD Posiflush) Start Date: 12/30/19 Stop Date: 12/30/19 Status: Discontinued Results Most recent to 1 oldest [Reference Range]: Neutrophils # 2.9 K/CMM [1.5-8.1 K/CMM] (12/30/19 11:31 AM) Lymphocytes # 1.2 K/CMM [1.0-5.5 K/CMM] (12/30/19 11:31 AM) Monocytes # [0.0-0.8 0.5 K/CMM K/CMM] (12/30/19 11:31 AM) Eosinophils # 0.6 K/CMM [0.0-0.5 K/CMM] *HI* (12/30/19 AM) eGFR 10 mL/min/1.73m2 1 *NA* (12/30/19) A/G Ratio [0.7-1.6] 0.6 *LOW* (12/30/19) Albumin Lvl [3.5-5.0 3.5 g/dL g/dL] (12/30/19 AM) Alk Phos [39-136 188 unit/L unit/L] *HI* (12/30/19) ALT [0-65 unit/L] 27 unit/L (12/30/19 AM) AGAP [10.0-20.0 10.4 mEq/L mEq/L] (12/30/19 AM) AST [0-37 unit/L] 45 unit/L *HI* (12/30/19) B/C Ratio [6-25] 6 (12/30/19 AM) Basophils [0.0-1.0 0.5 % %] (12/30/19) BUN [7-22 mg/dL] 25 mg/dL *HI* (12/30/19 AM) Calcium Lvl 9.4 mg/dL [8.5-10.5 mg/dL] (12/30/19 AM) Chloride Lvl [95-109 99 mEq/L mEq/L] (12/30/19 AM) CO2 [24-32 mEq/L] 30 mEq/L (12/30/19 AM) Creatinine Lvl 4.49 mg/dL [0.50-1.40 mg/dL] *HI* (12/30/19 AM) Eosinophils [0.0-4.0 12.4 % %] *HI* (12/30/19 AM) Globulin [2.7-4.2 5.6 g/dL g/dL] *HI* (12/30/19 AM) Glucose Lvl [70-99 210 mg/dL mg/dL] *HI* (12/30/19 AM) Hct [36.0-48.0 %] 41.8 % (12/30/19) Hgb [12.0-16.0 g/dL] 13.7 g/dL (12/30/19 AM) INR [0.85-1.17] 1.00 (12/30/19) Potassium Lvl 4.4 mEq/L [3.5-5.1 mEq/L] (12/30/19 AM) Lymphocytes 22.6 % [20.0-40.0 %] (12/30/19) Macrocyte [None 1+ Seen] *ABN* (12/30/19) MCH [27.0-31.0 pg] 32.6 pg *HI* (12/30/19 AM) MCHC [32.0-36.0 32.8 g/dL g/dL] (12/30/19 AM) MCV [80.0-98.0 fL] 99.4 fL *HI* (12/30/19 AM) Magnesium Lvl 2.2 mg/dL [1.8-2.4 mg/dL] (12/30/19 AM) Monocytes [2.0-12.0 9.7 % %] (12/30/19 AM) MPV [7.4-10.4 fL] 8.9 fL (12/30/19 AM) Sodium Lvl [135-145 135 mEq/L mEq/L] (12/30/19 AM) Phosphorus [2.5-4.5 4.4 mg/dL mg/dL] (12/30/19 AM) Platelet [133-450 125 K/CMM K/CMM] *LOW* (12/30/19) Segs [45.0-75.0 %] 54.8 % (12/30/19 AM) Total Protein 9.1 g/dL [6.4-8.4 g/dL] *HI* (3/3/20 11:31 AM) PT [12.0-14.7 13.2 seconds seconds] (12/30/19 11:31 AM) PTT [22.9-35.8 31.1 seconds seconds] (12/30/19 11:31 AM) RBC [4.20-5.40 4.20 M/CMM M/CMM] (12/30/19 11:31 AM) RDW [11.5-14.5 %] 15.8 % *HI* (12/30/19 11:31 AM) Bili Total [0.2-1.3 0.6 mg/dL mg/dL] (12/30/19 11:31 AM) Troponin-I <0.02 ng/mL [0.00-0.40 ng/mL] (12/30/19 11:31 AM) WBC [3.7-10.4 K/CMM] 5.2 K/CMM (12/30/19 11:31 AM) 1Result Comment: The eGFR is calculated [...] Cholecystectomy1 Completed Cholecystotomy Completed Eye care Completed 11064 Social History Social History Type Response Alcohol Never Substance Abuse Use: None. Smoking Status Never smoker; Exposure to T obacco Smoke None; Cigarette Smoking Last 365 Days No; Reg Smoking Cessation Counseli ng No entered on: 12/30/19 Assessment and Plan No data available for this section
--- OUTSIDE RECORDS SUMMARY | 2020-06-17 13:09 | XMS REPORT | CCD ---
Author Author [facility] Address Unknown Phone Unavailable Care Team Providers Care Joint Maker Machine Name Role Phone Elsa Vu RP Allergies, Adverse Reactions, Alerts Substance Reaction Status NKDA Active Problem List Condition Effective Dates Status Diabetes mellitus Active Hepatitis C Active
--- OUTSIDE RECORDS SUMMARY | 2020-06-17 13:09 | XMS REPORT | Summary of Care ---
Author Author [facility] Organization [facility] Address Unknown Phone Unavailable Encounter [facility](MALOU) [id number] Date(s): 02/28/19 - 03/10/19 [facility] [address] [place] [address]- Discharge Disposition: Longterm Facility Attending Physician: Kenzie Isaac MD Admitting Physician: Kenzie Isaac MD Vital Signs 1 2 3 Most recent to oldest [Reference Range]: 152.4 cm (02/28/19 10:46 PM) Height 51.2 kg (03/10/19 4:45 AM) 50.8 kg (03/09/19 5:58 AM) 51.619 kg (03/08/19 4:16 AM) Current Weight 98.3 DegF (03/10/19 3:04 PM) 98.5 DegF (03/10/19 11:29 AM) 99.2 DegF *HI* (03/10/19 7:18 AM) Temperature Oral [96.4-99.1 DegF] 95/53 mmHg (03/10/19 3:04 PM) 102/59 mmHg (03/10/19 11:29 AM) 120/61 mmHg (03/10/19 7:18 AM) Blood Pressure [90-140/60-90 mmHg] 18 BRMIN (03/09/19 10:53 AM) 18 BRMIN (03/09/19 7:18 AM) 18 BRMIN (03/09/19 4:00 AM) Respiratory Rate [14-20 BRMIN] 68 bpm (03/10/19 3:04 PM) 67 bpm (03/10/19 11:29 AM) 72 bpm (03/10/19 7:18 AM) Peripheral Pulse Rate [60-100 bpm] 55.636 kg (02/28/19 10:46 PM) 56.818 kg (02/28/19 1:01 PM) Weight 23.95 m2 (02/28/19 10:46 PM) Body Mass Index Problem List Condition [...] 2 tab, Route: PO, Drug form: TAB, ONCE, Dosing Weight 56.818, kg, Start date: 02/28/19 13:06:00 CDT, Stop date: 02/28/19 13:06:00 CDT Notes: Do not exceed 4 gm/day. (Same as: Tylenol) Start Date: 02/28/19 Stop Date: 02/28/19 Status: Completed albuterol 0.083% inhalation solution 14.94 mg, 18 mL, Route: NEB, Drug form: SOLN, ONCE, Dosing Weight 56.818, kg, Pr iority: STAT, Start date: 02/28/19 15:56:00 CDT, Stop date: 02/28/19 15:56:00 CD T Notes: SEE RT DOCUMENTATION (Same as: Proventil) Start Date: 02/28/19 Stop Date: 02/28/19 Status: Completed amLODIPine 10 mg, 2 tab, Route: PO, Drug form: TAB, Daily, Dosing Weight 55.636, kg, Start date: 03/02/19 9:00:00 CDT, Duration: 30 day, Stop date: 03/31/19 9:00:00 CDT Notes: (Same as: Norvasc) Start Date: 03/02/19 Stop Date: 03/10/19 Status: Discontinued aspirin 81 mg tablet, enteric coated 81 mg, 1 tab, Route: PO, Drug form: ECTAB, Daily, Dosing Weight 55.636, kg, Star t date: 03/02/19 9:00:00 CDT, Duration: 30 day, Stop date: 03/31/19 9:00:00 CDT Notes: Do not crush or chew.(Same As: Ecotrin) Start Date: 03/02/19 Stop Date: 03/01/19 Status: Canceled aspirin 81 mg tablet, enteric coated 81 mg, 1 tab, Route: PO, Drug form: ECTAB, Daily, Dosing Weight 55.636, kg, Star t date: 03/05/19 9:00:00 CDT, Duration: 30 day, Stop date: 04/03/19 9:00:00 CDT Notes: Do not crush or chew.(Same As: Ecotrin) Start Date: 03/05/19 Stop Date: 03/10/19 Status: Discontinued atorvastatin 40 mg, 1 tab, Route: PO, Drug form: TAB, Bedtime, Dosing Weight 55.636, kg, Star t date: 03/01/19 21:00:00 CDT, Duration: 30 day, Stop date: 03/30/19 21:00:00 CD T Notes: (Same as: Lipitor) Start Date: 03/01/19 Stop Date: 03/10/19 Status: Discontinued ceFAZolin + sterile water 10 mL 1 gm, Route: IV, ONCE, Start date: 03/03/19 16:33:00 CDT, Stop date: 03/03/19 16 :33:00 CDT, ABX Indication: Skin/Soft Tissue Infection Notes: (Same As: Donald Salasl) MEDICATION WASTE Product Size: 1000 mgP roduct Wasted: ___ mg Start Date: 03/03/19 Stop Date: 03/03/19 Status: Completed ceFAZolin + sterile water 10 mL 1 gm, Route: IVPB, [id number], Dosing Weight 55.636, kg, Start date: 03/01/19 15:00 :00 CDT, Duration: 14 day, Stop date: 03/14/19 15:00:00 CDT, ABX Indication: Bon e/Joint Infection Notes: (Same As: AncefMofzol) MEDICATION WASTE Product Size: 1000 mgP roduct Wasted: ___ mg Start Date: 03/01/19 Stop Date: 03/03/19 Status: Discontinued ceFAZolin + sterile water 20 mL 2 gm, Route: IVP, [id number], Dosing Weight 55.636, kg, Start date: 03/04/19 15:00: 00 CDT, Duration: 30 day, Stop date: 04/02/19 15:00:00 CDT, ABX Indication: Bact eremia Notes: (Same As: Ancef, Kefzol) MEDICATION WASTE Product Size: 1000 mgP roduct Wasted: ___ mg Start Date: 03/04/19 Stop Date: 03/10/19 Status: Discontinued Dextrose 50% Syringe 12.5 gm, 25 mL, Route: IVP, Drug Form: INJ, Dosing Weight 55.636, kg, PRN, PRN B lood Glucose Results, Start date: 03/01/19 1:47:00 CDT, Duration: 30 day, Stop d ate: 03/31/19 1:46:00 CDT Start Date: 03/01/19 Stop Date: 03/10/19 Status: Discontinued Dextrose 50% Syringe 25 gm, 50 mL, Route: IVP, Drug Form: INJ, Dosing Weight 55.636, kg, PRN, PRN Blo od Glucose Results, Start date: 03/01/19 1:47:00 CDT, Duration: 30 day, Stop blake e: 03/31/19 1:46:00 CDT Start Date: 03/01/19 Stop Date: 03/10/19 Status: Discontinued Dextrose 50% Syringe 25 gm, 50 mL, Route: IVP, Drug Form: INJ, Dosing Weight 56.818, kg, PRN, PRN Blo od Glucose Results, Start date: 02/28/19 20:01:00 CDT, Duration: 30 day, Stop da te: 03/30/19 20:00:00 CDT Start Date: 02/28/19 Stop Date: 03/04/19 Status: Deleted Dextrose 50% Syringe 12.5 gm, 25 mL, Route: IVP, Drug Form: INJ, Dosing Weight 56.818, kg, PRN, PRN B lood Glucose Results, Start date: 02/28/19 20:01:00 CDT, Duration: 30 day, Stop date: 03/30/19 20:00:00 CDT Start Date: 02/28/19 Stop Date: 03/04/19 Status: Deleted famotidine 20 mg oral tablet 20 mg = 1 tab, PO, Bedtime, 0 Refill(s) Start Date: 03/01/19 Status: Ordered fentaNYL 50 microgram, 1 mL, Route: IVP, Drug form: INJ, ONCE, Dosing Weight 56.818, kg, Priority: STAT, Start date: 02/28/19 13:40:00 CDT, Stop date: 02/28/19 13:40:00 CDT Notes: (Same as: Sublimaze) Preservative free. Start Date: 02/28/19 Stop Date: 02/28/19 Status: Completed furosemide 80 mg, BID, 0 Refill(s) Start Date: 03/01/19 Stop Date: 03/10/19 Status: Discontinued glucagon 1 mg, Route: IM, Drug form: PDR/INJ, PRN, Dosing Weight 55.636, kg, PRN Blood Gl ucose Results, Start date: 03/01/19 1:47:00 CDT, Duration: 30 day, Stop date: 1:46:00 CDT Start Date: 03/01/19 Stop Date: 03/10/19 Status: Discontinued glucagon 1 mg, Route: IM, Drug form: PDR/INJ, PRN, Dosing Weight 56.818, kg, PRN Blood Gl ucose Results, Start date: 02/28/19 20:01:00 CDT, Duration: 30 day, Stop date: 0 03/30/19 20:00:00 CDT Start Date: 02/28/19 Stop Date: 03/04/19 Status: Deleted heparin 5,000 unit, 1 mL, Route: SUB-Q, Drug form: INJ, Q12H, Dosing Weight 55.636, kg, Start date: 03/03/19 21:00:00 CDT, Duration: 30 day, Stop date: 04/02/19 1:00:00 CDT Notes: porcine heparin Start Date: 03/03/19 Stop Date: 03/10/19 Status: Discontinued Humulin 70/30 Pen subcutaneous injection SUB-Q, TID-Before Meals, per sliding scale, 0 Refill(s) Start Date: 03/01/19 Stop Date: 03/10/19 Status: Discontinued hydrALAZINE 10 mg, 0.5 mL, Route: IVP, Drug form: INJ, Q4H, Dosing Weight 56.818, kg, PRN Hy pertension, Start date: 02/28/19 20:01:00 CDT, Duration: 30 day, Stop date: 12/17 20:00:00 CDT Notes: (Same as: Apresoline)Push over 5 minutes Start Date: 02/28/19 Stop Date: 03/10/19 Status: Discontinued insulin isophane-NPH 8 unit, 0.08 mL, Route: SUB-Q, Drug form: INJ, BID, Dosing Weight 55.636, kg, St art date: 03/04/19 17:00:00 CDT, Duration: 30 day, Stop date: 04/03/19 9:00:00 C DT Notes: (Same as: Humulin N) Roll in palms of hands gently; Do not shake vigorous ly. WASTE: F/P - Black; E - Municipal Trash BinStable for 31 days at ro om temperature Expires in days from Date Start Date: 03/04/19 Stop Date: 03/10/19 Status: Discontinued insulin lispro 3 unit, 0.03 mL, Route: SUB-Q, Drug form: SOLN, Bedtime, Dosing Weight 55.636, k g, PRN Blood Glucose Results, Start date: 03/01/19 1:47:00 CDT, Duration: 30 day , Stop date: 03/31/19 1:46:00 CDT Notes: (Same as: Humalog) Roll in palms of hands gently; Do not shake vigorously . WASTE: F/P - Black; E - Municipal Trash BinStable for 28 days at room tempera ture.Expires in days from Date Start Date: 03/01/19 Stop Date: 03/10/19 Status: Discontinued insulin lispro 2 unit, 0.02 mL, Route: SUB-Q, Drug form: SOLN, Bedtime, Dosing Weight 55.636, k g, PRN Blood Glucose Results, Start date: 03/01/19 1:47:00 CDT, Duration: 30 day , Stop date: 03/31/19 1:46:00 CDT Notes: (Same as: Humalog) Roll in palms of hands gently; Do not shake vigorously . WASTE: F/P - Black; E - [facility] from Date Start Date: 03/01/19 Stop Date: 03/10/19 Status: Discontinued insulin lispro 1 unit, 0.01 mL, Route: SUB-Q, Drug form: SOLN, Bedtime, Dosing Weight 55.636, k g, PRN Blood Glucose Results, Start date: 03/01/19 1:47:00 CDT, Duration: 30 day , Stop date: 03/31/19 1:46:00 CDT Notes: (Same as: Humalog) Roll in palms of hands gently; Do not shake vigorously . WASTE: F/P - Black; E - Municipal Trash BinStable for 28 days at room [facility].Expires in days from Date Start Date: 03/01/19 Stop Date: 03/10/19 Status: Discontinued insulin lispro 4 unit, 0.04 mL, Route: SUB-Q, Drug form: SOLN, Bedtime, Dosing Weight 55.636, k g, PRN Blood Glucose Results, Start date: 03/01/19 1:47:00 CDT, Duration: 30 day , Stop date: 03/31/19 1:46:00 CDT Notes: (Same as: Humalog) Roll in palms of hands gently; Do not shake vigorously . WASTE: F/P - Black; E - Municipal Tr[facility] BinStable [facility]Expires in days from Date Start Date: 03/01/19 Stop Date: 03/10/19 Status: Discontinued insulin lispro 2 unit, 0.02 mL, Route: SUB-Q, Drug form: SOLN, TID-Before Meals, Dosing Weight 55.636, kg, PRN Blood Glucose Results, Start date: 03/01/19 1:47:00 CDT, Duratio n: 30 day, Stop date: 03/31/19 1:46:00 CDT Notes: (Same as: Humalog) Roll in palms of hands gently; Do not shake vigorously . WASTE: F/P - Black; E - Municipal Trash BinStable for 28 days at room [facility].Expires in days from Date Start Date: 03/01/19 Stop Date: 03/10/19 Status: Discontinued insulin lispro 4 unit, 0.04 mL, Route: SUB-Q, Drug form: SOLN, TID-Before Meals, Dosing Weight 55.636, kg, PRN Blood Glucose Results, Start date: 03/01/19 1:47:00 CDT, Duratio n: 30 day, Stop date: 03/31/19 1:46:00 CDT Notes: (Same as: Humalog) Roll in palms of hands gently; Do not shake vigorously . WASTE: F/P - Black; E - Municipal Trash BinStable for 28 days at room [facility].Expires in days from Date Start Date: 03/01/19 Stop Date: 03/10/19 Status: Discontinued insulin lispro 6 unit, 0.06 mL, Route: SUB-Q, Drug form: SOLN, TID-Before Meals, Dosing Weight 55.636, kg, PRN Blood Glucose Results, Start date: 03/01/19 1:47:00 CDT, Duratio n: 30 day, Stop date: 03/31/19 1:46:00 CDT Notes: (Same as: Humalog) Roll in palms of hands gently; Do not shake vigorously . WASTE: F/P - Black; E - Municipal Trash BinStable [facility] from Date Start Date: 03/01/19 Stop Date: 03/10/19 Status: Discontinued insulin lispro 8 unit, 0.08 mL, Route: SUB-Q, Drug form: SOLN, TID-Before Meals, Dosing Weight 55.636, kg, PRN Blood Glucose Results, Start date: 03/01/19 1:47:00 CDT, Duratio n: 30 day, Stop date: 03/31/19 1:46:00 CDT Notes: (Same as: Humalog) Roll in palms of hands gently; Do not shake vigorously . WASTE: F/P - Black; E - Municipal Trash BinStable for 28 days at room tempera ture.Expires in days from Date Start Date: 03/01/19 Stop Date: 03/10/19 Status: Discontinued insulin lispro 10 unit, 0.1 mL, Route: SUB-Q, Drug form: SOLN, TID-Before Meals, Dosing Weight 55.636, kg, PRN Blood Glucose Results, Start date: 03/01/19 1:47:00 CDT, Duratio n: 30 day, Stop date: 03/31/19 1:46:00 CDT Notes: (Same as: Humalog) Roll in palms of hands gently; Do not shake vigorously . WASTE: F/P - Black; E - Municipal Trash BinStable for 28 days at room tempera ture.Expires in days from Date Start Date: 03/01/19 Stop Date: 03/10/19 Status: Discontinued Insulin regular 5 unit, 0.05 mL, Route: IVP, Drug form: INJ, ONCE, Dosing Weight 56.818, kg, Marjorie ority: STAT, Start date: 02/28/19 15:55:00 CDT, Stop date: 02/28/19 15:55:00 CDT Notes: (Same as: Humulin R, NovoLIN R) Roll in palms of hands gently; Do not sha ke vigorously. WASTE: F/P - Black; E - Municipal Trash BinStable for 31 days at room temperature Expires in days from Date Start Date: 02/28/19 Stop Date: 02/28/19 Status: Completed Kayexalate 30 gm, 120 mL, Route: PO, Drug form: SUSP, ONCE, Dosing Weight 56.818, kg, Prior ity: STAT, Start date: 02/28/19 15:55:00 CDT, Stop date: 02/28/19 15:55:00 CDT Notes: (sodium polystyrene sulfonate 15 gm/60 ml MERRY) Shake well before use. (Same as: Kayexalate, SPS) Start Date: 02/28/19 Stop Date: 02/28/19 Status: Completed Lantus 100 units/mL 20 unit, SUB-Q, Bedtime, # 10 mL, 3 Refill(s) Start Date: 03/01/19 Status: Ordered Lasix 80 mg, 8 mL, Route: IVP, Drug form: INJ, ONCE, Dosing Weight 56.818, kg, Priorit y: STAT, Start date: 02/28/19 15:54:00 CDT, Stop date: 02/28/19 15:54:00 CDT Notes: (Same as: Lasix) MEDICATION WASTE Product Size: 40 mgProduct Was lorena: ___ mg Start Date: 02/28/19 Stop Date: 02/28/19 Status: Completed metoprolol 25 mg oral tablet, extended release See Instructions, 1/2 tab po BID with food, 0 Refill(s) Start Date: 03/01/19 Status: Ordered metoprolol extended release 12.5 mg, 0.5 tab, Route: PO, Drug form: ERTAB, BID, Start date: 03/02/19 9:00:00 CDT, Duration: 10 day, Stop date: 03/11/19 17:00:00 CDT Notes: (Same as: Toprol XL) Do Not Crush Start Date: 03/02/19 Stop Date: 03/10/19 Status: Discontinued morphine Sulfate 4 mg, 1 mL, Route: IVP, Drug form: SOLN, Q4H, Dosing Weight 56.818, kg, PRN Pain Score 7-10, Start date: 02/28/19 20:01:00 CDT, Duration: 30 day, Stop date: 12/17 20:00:00 CDT Notes: (Same as:MORPhine Sulfate) Start Date: 02/28/19 Stop Date: 03/10/19 Status: Discontinued Landers 5/325 oral tablet 1 tab, Route: PO, Drug Form: TAB, Dosing Weight 56.818, kg, Q4H, PRN Pain Score 1-3, Start date: 02/28/19 20:01:00 CDT, Duration: 30 day, Stop date: 03/30/19 20 :00:00 CDT Notes: (Same as: Landers 325/5) Do not exceed 4gm/day of acetaminophen. Start Date: 02/28/19 Stop Date: 03/10/19 Status: Discontinued ondansetron 4 mg, 2 mL, Route: IVP, Drug form: INJ, Q4H, Dosing Weight 56.818, kg, PRN Nause a & Vomiting, Start date: 02/28/19 20:01:00 CDT, Duration: 30 day, Stop date: 03/30/19 20:00:00 CDT Notes: (Same as: Rosanne) MEDICATION WASTE Product Size: 4 mgProduct Was lorena: ___ mg Start Date: 02/28/19 Stop Date: 03/10/19 Status: Discontinued Saline Flush 0.9% 10 ml, Route: IVP, Drug Form: INJ, Dosing Weight 55.636, kg, PRN, PRN Line Flush , Start date: 03/05/19 17:35:00 CDT, Duration: 30 day, Stop date: 04/04/19 17:34 :00 CDT Notes: preservative free. Start Date: 03/05/19 Stop Date: 03/10/19 Status: Discontinued Saline Flush 0.9% 10 ml, Route: IVP, Drug Form: INJ, Dosing Weight 55.636, kg, Q12H, Start date: 0 03/05/19 21:00:00 CDT, Duration: 30 day, Stop date: 04/04/19 9:00:00 CDT Notes: preservative free. Start Date: 03/05/19 Stop Date: 03/10/19 Status: Discontinued Saline Flush 0.9% 10 mL, Route: IVP, Drug Form: INJ, Dosing Weight 56.818, kg, PRN, PRN Line Flush , Start date: 02/28/19 13:06:00 CDT, Duration: 30 day, Stop date: 03/30/19 13:05 :00 CDT Notes: Same as: BD Posiflush Sterile Start Date: 02/28/19 Stop Date: 03/10/19 Status: Discontinued Sodium Chloride 0.9% (Bolus) IV 500 mL, 500 ml/hr, Infuse Over: 1 hr, Route: IV, 500, Drug form: INJ, ONCE, Prio rity: STAT, Dosing Weight 56.818 kg, Start date: 02/28/19 13:06:00 CDT, Stop blake e: 02/28/19 13:06:00 CDT Start Date: 02/28/19 Stop Date: 02/28/19 Status: Completed Tylenol 325 mg, 1 tab, Route: PO, Drug form: TAB, Q6H, Dosing Weight 55.636, kg, PRN Mayito n 1-3/Temp > 100.4 F, Start date: 03/02/19 23:25:00 CDT, Duration: 30 day, Stop date: 04/01/19 23:24:00 CDT Notes: Do not exceed 4 gm/day. (Same as: Tylenol) Start Date: 03/02/19 Stop Date: 03/10/19 Status: Discontinued Tylenol with Codeine #3 oral tablet 1 tab, PO, Q6H, PRN Pain Score 6-10, 0 Refill(s) Start Date: 03/01/19 Status: Ordered vancomycin + Sodium Chloride 0.9% IV 100 mL 250 mg, Route: IVPB, Q, Start date: 03/01/19 17:00:00 CDT, Duration: 30 day, Stop date: 03/29/19 17:00:00 CDT, ABX Indication: Bacteremia Notes: TIME CRITICAL MEDICATION(Same As: Vancocin)For adult patients only: Round to nearest 250 mg per Medical Staff approval Start Date: 03/01/19 Stop Date: 03/03/19 Status: Discontinued vancomycin + Sodium Chloride 0.9% IV 250 mL 1,000 mg, Route: IVPB, ONCE, Dosing Weight 56.818, kg, Priority: STAT, Start blake e: 02/28/19 15:52:00 CDT, Stop date: 02/28/19 15:52:00 CDT, ABX Indication: Skin /Soft Tissue Infection Notes: TIME CRITICAL MEDICATION(Same As: Vancocin)Infusion rate< 1000 mg: infuse over 1 [id number] - 1500 mg: infuse over 1.5 [id number] - 2000 mg: infuse over 2 hours> 2001 mg: infuse over 2.5 hoursFor adult patients only: Round to nearest 250 mg per Medical Staff approval MEDICATION WASTE Product Size: 1000 mgProduct Wasted: ___ mg Start Date: 02/28/19 Stop Date: 02/28/19 Status: Completed Vancomycin Pharmacy Dosing 1 ea, Route: MISC, ONCALL, Dosing Weight 55.636, kg, Start date: 03/01/19 15:00: 00 CDT, Duration: 28 day, Stop date: 03/29/19 14:59:00 CDT, Pharmacy to dose, AB X Indication: Bacteremia Start Date: 03/01/19 Stop Date: 03/01/19 Status: Completed Vancomycin Pharmacy Dosing 1 ea, Route: MISC, ONCALL, Dosing Weight 56.818, kg, Start date: 02/28/19 21:00: 00 CDT, Duration: 5 day, Stop date: 03/05/19 20:59:00 CDT, Pharmacy to dose, ABX Indication: Skin/Soft Tissue Infection Start Date: 02/28/19 Stop Date: 02/28/19 Status: Deleted Zosyn + Sodium Chloride 0.9% IV 100 mL 3.375 gm, Route: IVPB, ONCE, Dosing Weight 56.818, kg, Priority: STAT, Start blake e: 02/28/19 15:52:00 CDT, Stop date: 02/28/19 15:52:00 CDT, ABX Indication: Skin /Soft Tissue Infection Notes: (Same as: Zosyn)Dosing based on Piperacillin component MEDICATION WA VANESSA Product Size: 3375 mgProduct Wasted: ___ mg Start Date: 02/28/19 Stop Date: 02/28/19 Status: Completed Results 1 2 3 Most recent to oldest [Reference Range]: 1.69 ng/mL *HI* (02/28/19 1:21 PM) Procalcitonin Lvl [0.00-0.10 ng/mL] 5.4 K/CMM (03/08/19 7:03 AM) 4.7 K/CMM (03/06/19 6:06 AM) 3.7 K/CMM (03/04/19 7:15 AM) Neutrophils # [1.5-8.1 K/CMM] 1.3 K/CMM (03/08/19 7:03 AM) 1.8 K/CMM (03/06/19 6:06 AM) 1.1 K/CMM (03/04/19 7:15 AM) Lymphocytes # [1.0-5.5 K/CMM] 0.8 K/CMM (03/08/19 7:03 AM) 0.8 K/CMM (03/06/19 6:06 AM) 0.7 K/CMM (03/04/19 7:15 AM) Monocytes # [0.0-0.8 K/CMM] 0.3 K/CMM (03/08/19 7:03 AM) 0.3 K/CMM (03/06/19 6:06 AM) 0.2 K/CMM (03/04/19 7:15 AM) Eosinophils # [0.0-0.5 K/CMM] 0.1 K/CMM (03/06/19 6:06 AM) 0.1 K/CMM (03/04/19 7:15 AM) Basophils # [0.0-0.2 K/CMM] Normal (03/01/19 4:10 AM) Plt Morph [Normal] Not Detected (02/28/19 1:21 PM) E. faecalis [Not Detected] Not Detected (02/28/19 1:21 PM) E. faecium [Not Detected] Not Detected (02/28/19 1:21 PM) Listeria spp. [Not Detected] Not Detected (02/28/19 1:21 PM) mecA Methicillin Resistance [Not Detected] Not Detected (02/28/19 1:21 PM) S. agalactiae [Not Detected] Not Detected (02/28/19 1:21 PM) S. anginosus grp [Not Detected] Not Detected (02/28/19 1:21 PM) S. aureus [Not Detected] Not Detected (02/28/19 1:21 PM) S. epidermidis [Not Detected] Detected *ABN* (02/28/19 1:21 PM) S. lugdunensis [Not Detected] Not Detected (02/28/19 1:21 PM) S. pneumoniae [Not Detected] Not Detected (02/28/19 1:21 PM) S. pyogenes [Not Detected] Detected *ABN* (02/28/19 1:21 PM) Staphylococcus spp. [Not Detected] Not Detected (02/28/19 1:21 PM) Streptococcus spp. [Not Detected] Not Detected (02/28/19 1:21 PM) Ishan Vancomycin Resistance [Not Detected] Not Detected (02/28/19 1:21 PM) vanB Vancomycin Resistance [Not Detected] 6 mL/min/1.73m2 1 *NA* (03/10/19 9:51 AM) 8 mL/min/1.73m2 2 *NA* (03/08/19 7:03 AM) 8 mL/min/1.73m2 3 *NA* (03/06/19 6:06 AM) eGFR 0.7 (03/01/19 4:10 AM) 0.5 *LOW* (02/28/19 1:21 PM) A/G Ratio [0.7-1.6] 3.1 g/dL *LOW* (03/01/19 4:10 AM) 3.1 g/dL *LOW* (02/28/19 1:21 PM) Albumin Lvl [3.5-5.0 g/dL] 133 unit/L (03/01/19 4:10 AM) 207 unit/L *HI* (02/28/19 1:21 PM) Alk Phos [39-136 unit/L] 16 unit/L (03/01/19 4:10 AM) 25 unit/L (02/28/19 1:21 PM) ALT [0-65 unit/L] 15.9 mEq/L (03/10/19 9:51 AM) 16.9 mEq/L (03/08/19 7:03 AM) 9.7 mEq/L *LOW* (03/06/19 6:06 AM) AGAP [10.0-20.0 mEq/L] 23 unit/L (03/01/19 4:10 AM) 76 unit/L *HI* (02/28/19 1:21 PM) AST [0-37 unit/L] 7 (03/01/19 4:10 AM) 10 (02/28/19 1:21 PM) B/C Ratio [6-25] 0.5 % (03/08/19 7:03 AM) 0.7 % (03/06/19 6:06 AM) 0.9 % (03/04/19 7:15 AM) Basophils [0.0-1.0 %] 36 mg/dL *HI* (03/10/19 9:51 AM) 32 mg/dL *HI* (03/08/19 7:03 AM) 30 mg/dL *HI* (03/06/19 6:06 AM) BUN [7-22 mg/dL] 8.5 mg/dL (03/10/19 9:51 AM) 8.4 mg/dL *LOW* (03/08/19 7:03 AM) 8.9 mg/dL (03/06/19 6:06 AM) Calcium Lvl [8.5-10.5 mg/dL] 96 mEq/L (03/10/19 9:51 AM) 100 mEq/L (03/08/19 7:03 AM) 101 mEq/L (03/06/19 6:06 AM) Chloride Lvl [95-109 mEq/L] 27 mEq/L (03/10/19 9:51 AM) 23 mEq/L *LOW* (03/08/19 7:03 AM) 29 mEq/L (03/06/19 6:06 AM) CO2 [24-32 mEq/L] 6.53 mg/dL *HI* (03/10/19 9:51 AM) 5.45 mg/dL *HI* (03/08/19 7:03 AM) 5.24 mg/dL *HI* (03/06/19 6:06 AM) Creatinine Lvl [0.50-1.40 mg/dL] 3.5 % (03/08/19 7:03 AM) 3.3 % (03/06/19 6:06 AM) 3.0 % (03/04/19 7:15 AM) Eosinophils [0.0-4.0 %] 4.6 g/dL *HI* (03/01/19 4:10 AM) 5.9 g/dL *HI* (02/28/19 1:21 PM) Globulin [2.7-4.2 g/dL] 241 mg/dL *HI* (03/10/19 9:51 AM) 131 mg/dL *HI* (03/08/19 7:03 AM) 119 mg/dL *HI* (03/06/19 6:06 AM) Glucose Lvl [70-99 mg/dL] Negative *NA* (03/04/19 7:15 AM) Negative *NA* (02/28/19 8:10 PM) Hep Bs Ag [Negative] 33.6 % *LOW* (03/10/19 9:51 AM) 34.4 % *LOW* (03/08/19 7:03 AM) 34.7 % *LOW* (03/06/19 6:06 AM) Hct [36.0-48.0 %] 10.9 g/dL *LOW* (03/10/19 9:51 AM) 10.9 g/dL *LOW* (03/08/19 7:03 AM) 11.4 g/dL *LOW* (03/06/19 6:06 AM) Hgb [12.0-16.0 g/dL] 1.15 (03/06/19 6:06 AM) INR [0.85-1.17] 3.9 mEq/L (03/10/19 9:51 AM) 3.9 mEq/L (03/08/19 7:03 AM) 4.7 mEq/L (03/06/19 6:06 AM) Potassium Lvl [3.5-5.1 mEq/L] 1.9 mMol/L (02/28/19 1:21 PM) Lactic Acid Lvl [0.5-2.2 mMol/L] 17.0 % *LOW* (03/08/19 7:03 AM) 23.5 % (03/06/19 6:06 AM) 19.8 % *LOW* (03/04/19 7:15 AM) Lymphocytes [20.0-40.0 %] 29.6 pg (03/10/19 9:51 AM) 29.2 pg (03/08/19 7:03 AM) 30.1 pg (03/06/19 6:06 AM) MCH [27.0-31.0 pg] 32.3 g/dL (03/10/19 9:51 AM) 31.6 g/dL *LOW* (03/08/19 7:03 AM) 32.8 g/dL (03/06/19 6:06 AM) MCHC [32.0-36.0 g/dL] 91.7 fL (03/10/19 9:51 AM) 92.4 fL (03/08/19 7:03 AM) 91.9 fL (03/06/19 6:06 AM) MCV [80.0-98.0 fL] 2.2 mg/dL (03/10/19 9:51 AM) 2.2 mg/dL (03/06/19 6:06 AM) Magnesium Lvl [1.8-2.4 mg/dL] 10.3 % (03/08/19 7:03 AM) 10.2 % (03/06/19 6:06 AM) 13.0 % *HI* (03/04/19 7:15 AM) Monocytes [2.0-12.0 %] 8.7 fL (03/10/19 9:51 AM) 8.3 fL (03/08/19 7:03 AM) 8.6 fL (03/06/19 6:06 AM) MPV [7.4-10.4 fL] 135 mEq/L (03/10/19 9:51 AM) 136 mEq/L (03/08/19 7:03 AM) 135 mEq/L (03/06/19 6:06 AM) Sodium Lvl [135-145 mEq/L] 3.8 mg/dL (03/10/19 9:51 AM) Phosphorus [2.5-4.5 mg/dL] 139 K/CMM (03/10/19 9:51 AM) 150 K/CMM (03/08/19 7:03 AM) 152 K/CMM (03/06/19 6:06 AM) Platelet [133-450 K/CMM] 68.7 % (03/08/19 7:03 AM) 62.3 % (03/06/19 6:06 AM) 63.3 % (03/04/19 7:15 AM) Segs [45.0-75.0 %] 7.7 g/dL (03/01/19 4:10 AM) 9.0 g/dL *HI* (02/28/19 1:21 PM) Total Protein [6.4-8.4 g/dL] 14.5 seconds (03/06/19 6:06 AM) PT [12.0-14.7 seconds] 38.5 seconds *HI* (03/06/19 6:06 AM) PTT [22.9-35.8 seconds] 3.67 M/CMM *LOW* (03/10/19 9:51 AM) 3.72 M/CMM *LOW* (03/08/19 7:03 AM) 3.77 M/CMM *LOW* (03/06/19 6:06 AM) RBC [4.20-5.40 M/CMM] Normal (03/01/19 4:10 AM) RBC Morph [Normal] 15.8 % *HI* (03/10/19 9:51 AM) 15.6 % *HI* (03/08/19 7:03 AM) 15.8 % *HI* (03/06/19 6:06 AM) RDW [11.5-14.5 %] 1.0 mg/dL (03/01/19 4:10 AM) 0.9 mg/dL (02/28/19 1:21 PM) Bili Total [0.2-1.3 mg/dL] 0.03 ng/mL (02/28/19 1:21 PM) Troponin-I [0.00-0.40 ng/mL] 7.1 K/CMM (03/10/19 9:51 AM) 7.9 K/CMM (03/08/19 7:03 AM) 7.5 K/CMM (03/06/19 6:06 AM) WBC [3.7-10.4 K/CMM] 1.04 mMol/L *LOW* (03/10/19 9:51 AM) Ca Ion WB [1.05-1.25 mMol/L] 1.06 mMol/L (03/10/19 9:51 AM) Ca Norm WB [1.05-1.25 mMol/L] 1Result Comment: The eGFR is calculated using [...] [email or web address] Completed Cholecystotomy Completed Eye care Completed 42237 Social History Social History Type Response Substance Abuse Use: None. Alcohol Never Smoking Status Never smoker; Exposure to T obacco Smoke None; Cigarette Smoking Last 365 Days No; Reg Smoking Cessation Counseli ng No entered on: 02/28/19 Assessment and Plan Extracted from: Title: Cardiology Progress Note Author: Derrick Bullock MD Date : 03/10/19 Impression and Plan Staph bacteremia CAD [...] meds #HTN -Stable #HLD -On statin Extracted from: Title: Cardiology Consultation Author: Derrick Bullock MD Date: [...] meds #HTN -Stable #HLD -On statin Extracted from: Title: History and Physical Author: David Vera MD [...] per protocol 2 midnights inpt date/time: 02/28/2019 19:31"
--- OUTSIDE RECORDS SUMMARY | 2020-06-17 13:09 | XMS REPORT | Summary of Care ---
Author Author [facility] Organization [facility] Address Unknown Phone Unavailable Encounter HQ Elda(FIN) [id number] Date(s): 05/23/20 [facility] [address] [place] [address]- Attending Physician: Michelle Ch MD Admitting Physician: Michelle Ch MD Vital Signs 1 2 3 Most recent to oldest [Reference Range]: 152.4 cm (05/23/20 11:37 AM) Height 99 DegF (05/23/20 11:37 AM) Temperature Oral [96.4-99.1 DegF] 120/61 mmHg (05/24/20 4:21 AM) 151/95 mmHg *HI* (05/24/20 12:00 AM) 130/77 mmHg (05/23/20 8:55 PM) Blood Pressure [90-140/60-90 mmHg] 18 BRMIN (05/24/20 4:21 AM) 18 BRMIN (05/24/20 12:00 AM) 18 BRMIN (05/23/20 8:55 PM) Respiratory Rate [14-20 BRMIN] 70 bpm (05/24/20 4:21 AM) 78 bpm (05/23/20 8:55 PM) 71 bpm (05/23/20 5:28 PM) Peripheral Pulse Rate [60-100 bpm] 53.636 kg (05/23/20 11:37 AM) Weight 23.09 m2 (05/23/20 11:37 AM) Body Mass Index Problem List Condition [...] Reactions, Alerts No Known Medication Allergies Medications aspirin 324 mg, 4 tab, Route: CHEW, Drug form: CHEWTAB, ONCE, Dosing Weight 53.636, kg, Priority: STAT, Start date: 05/23/20 19:13:00 CDT, Stop date: 05/23/20 19:13:00 CDT, 0 Notes: Take with food. Start Date: 05/23/20 Stop Date: 05/23/20 Status: Completed Saline Flush 0.9% 10 ml, Route: IVP, Drug Form: INJ, Dosing Weight 53.636, kg, PRN, PRN Line Flush , Start date: 05/23/20 21:37:00 CDT, Duration: 30 day, Stop date: 06/22/20 21:36 :00 CDT, 0 Notes: (Same as: BD Posiflush) Start Date: 05/23/20 Stop Date: 06/22/20 Status: Ordered Tylenol 975 mg, Route: PO, Drug form: TAB, ONCE, Dosing Weight 53.636, kg, Priority: STA T, Start date: 05/23/20 15:17:00 CDT, Stop date: 05/23/20 15:17:00 CDT Start Date: 05/23/20 Stop Date: 05/23/20 Status: Discontinued Zofran ODT 4 mg, Route: PO, Drug form: TABDIS, ONCE, Dosing Weight 53.636, kg, Priority: ST AT, Start date: 05/23/20 15:18:00 CDT, Stop date: 05/23/20 15:18:00 CDT Start Date: 05/23/20 Stop Date: 05/23/20 Status: Discontinued Results Most recent to 1 2 oldest [Reference Range]: Neutrophils # 4.9 K/CMM 9.1 K/CMM [1.5-8.1 K/CMM] (05/24/20 4:28 AM) *HI* (05/23/20 11:55 AM) Lymphocytes # 1.5 K/CMM 1.0 K/CMM [1.0-5.5 K/CMM] (05/24/20 4:28 AM) (05/23/20 11:55 AM) Monocytes # [0.0-0.8 0.7 K/CMM 0.9 K/CMM K/CMM] (05/24/20 4:28 AM) *HI* (05/23/20 11:55 AM) Eosinophils # 0.3 K/CMM 0.3 K/CMM [0.0-0.5 K/CMM] (05/24/20 4:28 AM) (05/23/20 11:55 AM) eGFR 7 mL/min/1.73m2 1 *NA* (05/23/20 11 AM) A/G Ratio [0.7-1.6] 0.7 (05/23/20 11:55 AM) Albumin Lvl [3.5-5.0 3.5 g/dL g/dL] (05/23/20 11:55 AM) Alk Phos [39-136 137 unit/L unit/L] *HI* (05/23/20 11:55 AM) ALT [0-65 unit/L] 22 unit/L (05/23/20 11:55 AM) AGAP [10.0-20.0 9.9 mEq/L mEq/L] *LOW* (05/23/20 11:55 AM) AST [0-37 unit/L] 35 unit/L (05/23/20 11:55 AM) B/C Ratio [6-25] 8 (05/23/20 11:55 AM) Basophils [0.0-1.0 0.5 % 0.1 % %] (05/24/20 4:28 AM) (05/23/20 11:55 AM) BUN [7-22 mg/dL] 49 mg/dL *HI* (05/23/20 11:55 AM) Calcium Lvl 9.1 mg/dL [8.5-10.5 mg/dL] (05/23/20 11:55 AM) Chloride Lvl [95-109 102 mEq/L mEq/L] (05/23/20 11:55 AM) CO2 [24-32 mEq/L] 28 mEq/L (05/23/20 11:55 AM) Creatinine Lvl 6.01 mg/dL [0.50-1.40 mg/dL] *HI* (05/23/20 11:55 AM) Eosinophils [0.0-4.0 4.5 % 2.4 % %] *HI* (05/23/20 11:55 AM) (05/24/20 4:28 AM) Globulin [2.7-4.2 4.9 g/dL g/dL] *HI* (05/23/20 11:55 AM) Glucose Lvl [70-99 178 mg/dL mg/dL] *HI* (05/23/20 11:55 AM) Hct [36.0-48.0 %] 29.8 % 32.0 % *LOW* *LOW* (05/24/20 4:28 AM) (05/23/20 11:55 AM) Hgb [12.0-16.0 g/dL] 9.8 g/dL 10.4 g/dL *LOW* *LOW* (05/24/20 4:28 AM) (05/23/20 11:55 AM) Hgb A1C [<=5.6 %] 5.0 % (05/23/20 11:03 PM) Potassium Lvl 4.9 mEq/L [3.5-5.1 mEq/L] (05/23/20 11:55 AM) Lymphocytes 20.1 % 8.7 % [20.0-40.0 %] (05/24/20 4:28 AM) *LOW* (05/23/20 11:55 AM) Macrocyte [None 1+ 1+ Seen] *ABN* *ABN* (05/24/20 4:28 AM) (05/23/20 11:55 AM) MCH [27.0-31.0 pg] 32.8 pg 32.9 pg *HI* *HI* (05/24/20 4:28 AM) (05/23/20 11:55 AM) MCHC [32.0-36.0 32.9 g/dL 32.5 g/dL g/dL] (05/24/20 4:28 AM) (05/23/20 11:55 AM) MCV [80.0-98.0 fL] 99.8 fL 101.1 fL *HI* *HI* (05/24/20 4:28 AM) (05/23/20 11:55 AM) Monocytes [2.0-12.0 9.2 % 8.1 % %] (05/24/20 4:28 AM) (05/23/20 11:55 AM) MPV [7.4-10.4 fL] 8.3 fL 8.5 fL (05/24/20 4:28 AM) (05/23/20 11:55 AM) Sodium Lvl [135-145 135 mEq/L mEq/L] (05/23/20 11:55 AM) Platelet [133-450 114 K/CMM 141 K/CMM K/CMM] *LOW* (05/23/20 11:55 AM) (05/24/20 4:28 AM) Segs [45.0-75.0 %] 65.7 % 80.7 % (05/24/20 4:28 AM) *HI* (05/23/20 11:55 AM) Total Protein 8.4 g/dL [6.4-8.4 g/dL] (05/23/20 11:55 AM) Coronavirus Not Detected (COVID-19) KATLYN [Not (05/23/20 8:51 PM) Detected] RBC [4.20-5.40 2.98 M/CMM 3.17 M/CMM M/CMM] *LOW* *LOW* (05/24/20 4:28 AM) (05/23/20 11:55 AM) RDW [11.5-14.5 %] 15.0 % 15.0 % *HI* *HI* (05/24/20 4:28 AM) (05/23/20 11:55 AM) Bili Total [0.2-1.3 0.6 mg/dL mg/dL] (05/23/20 11:55 AM) Troponin-I <0.02 ng/mL <0.02 ng/mL [0.00-0.40 ng/mL] (05/23/20 11:03 PM) (05/23/20 11:55 AM) UA Bacteria [None Occasional /HPF Seen /HPF] *NA* (05/23/20 2:19 PM) UA Bili [Negative] Negative *NA* (05/23/20 2:19 PM) UA Blood [Negative] Moderate *ABN* (05/23/20 2:19 PM) UA Color Renate *NA* (05/23/20 2:19 PM) UA Glucose [Negative Negative mg/dL mg/dL] *NA* (05/23/20 2:19 PM) UA Ketones [Negative Negative mg/dL mg/dL] *NA* (05/23/20 2:19 PM) UA Leuk Est Negative [Negative] (05/23/20 2:19 PM) UA Mucus [None Seen Few /LPF /LPF] *NA* (05/23/20 2:19 PM) UA Nitrite Negative [Negative] (05/23/20 2:19 PM) UA pH [5.0-8.0] 5.0 (05/23/20 2:19 PM) UA Protein [Negative 100 mg/dL mg/dL] *ABN* (05/23/20 2:19 PM) UA RBC [0-2 /HPF] 6 /HPF *HI* (05/23/20 2:19 PM) UA Spec Grav 1.025 [<=1.030] (05/23/20 2:19 PM) UA Sq Epi [Few /LPF] Many /LPF *ABN* (05/23/20 2:19 PM) UA Turbidity [Clear] Slight *ABN* (05/23/20 2:19 PM) UA Urobilinogen 4.0 mg/dL [0.1-1.0 mg/dL] *HI* (05/23/20 2:19 PM) UA WBC [0-5 /HPF] 3 /HPF (05/23/20 2:19 PM) WBC [3.7-10.4 K/CMM] 7.4 K/CMM 11.3 K/CMM (05/24/20 4:28 AM) *HI* (05/23/20 11:55 AM) 1Result Comment: The eGFR is calculated [...] Cholecystectomy1 Completed Cholecystotomy Completed Eye care Completed 18047 Social History Social History Type Response Alcohol Never Substance Abuse Use: None. Smoking Status Never smoker; Exposure to T obacco Smoke None; Cigarette Smoking Last 365 Days No; Reg Smoking Cessation Counseli ng No entered on: 12/30/19 Assessment and Plan No data available for this section
--- OUTSIDE RECORDS SUMMARY | 2020-06-17 13:09 | XMS REPORT | Summary of Care ---
Author Author [facility] o[facility]ital Organization [facility] Address Unknown Phone Unavailable Encounter HQ Elda(FIN) [id number] Date(s): 09/03/19 - 09/03/19 [facility] [address] [place] [address]- Encounter Diagnosis Anxiety (Discharge Diagnosis) - 09/03/19 End stage renal disease (Discharge Diagnosis) - 09/03/19 Discharge Disposition: Home or Self Care Attending Physician: Brad Barakat MD Vital Signs 1 2 3 Most recent to oldest [Reference Range]: 160.02 cm (09/03/19 9:36 AM) Height 98.1 DegF (09/03/19 1:20 PM) 98.3 DegF (09/03/19 9:36 AM) Temperature Oral [96.4-99.1 DegF] 109/50 mmHg (09/03/19 2:24 PM) 122/64 mmHg (09/03/19 1:20 PM) 117/51 mmHg (09/03/19 10:56 AM) Blood Pressure [90-140/60-90 mmHg] 16 BRMIN (09/03/19 2:24 PM) 13 BRMIN *LOW* (09/03/19 1:20 PM) 16 BRMIN (09/03/19 10:56 AM) Respiratory Rate [14-20 BRMIN] 57 bpm *LOW* (09/03/19 9:36 AM) Peripheral Pulse Rate [60-100 bpm] 63.636 kg (09/03/19 9:36 AM) Weight 24.85 m2 (09/03/19 9:36 AM) Body Mass Index Problem List Condition [...] Reactions, Alerts No Known Medication Allergies Medications trazodone 25 mg, 0.5 tab, Route: PO, Drug form: TAB, ONCE, Dosing Weight 63.636, kg, Start date: 09/03/19 10:26:00 [employer], Stop date: 09/03/19 10:26:00 [employer]MENT [employer]IST, .., 0 Notes: (Same As: Kate) Start Date: 09/03/19 Stop Date: 09/03/19 Status: Completed Results Most recent to 1 oldest [Reference Range]: Neutrophils # 2.3 K/CMM [1.5-8.1 K/CMM] (09/03/19 10:12 AM) Lymphocytes # 0.9 K/CMM [1.0-5.5 K/CMM] *LOW* (09/03/19 10:12 AM) Monocytes # [0.0-0.8 0.4 K/CMM K/CMM] (09/03/19 10:12 AM) Eosinophils # 0.4 K/CMM [0.0-0.5 K/CMM] (09/03/19 10:12 AM) eGFR 8 mL/min/1.73m2 1 *NA* (09/03/19 10:12 AM) A/G Ratio [0.7-1.6] 0.7 (09/03/19 10:12 AM) Albumin Lvl [3.5-5.0 3.4 g/dL g/dL] *LOW* (09/03/19 10:12 AM) Alk Phos [39-136 191 unit/L unit/L] *HI* (09/03/19 10:12 AM) ALT [0-65 unit/L] 17 unit/L (09/03/19 10:12 AM) AGAP [10.0-20.0 9.7 mEq/L mEq/L] *LOW* (09/03/19 10:12 AM) AST [0-37 unit/L] 42 unit/L *HI* (09/03/19 10:12 AM) B/C Ratio [6-25] 5 *LOW* (09/03/19 10:12 AM) Basophils [0.0-1.0 0.6 % %] (09/03/19 10:12 AM) BUN [7-22 mg/dL] 27 mg/dL *HI* (09/03/19 10:12 AM) Calcium Lvl 8.8 mg/dL [8.5-10.5 mg/dL] (09/03/19 10:12 AM) Total CK [12-191 82 unit/L unit/L] (09/03/19 10:12 AM) Chloride Lvl [95-109 100 mEq/L mEq/L] (09/03/19 10:12 AM) CO2 [24-32 mEq/L] 33 mEq/L *HI* (09/03/19 10:12 AM) Creatinine Lvl 5.43 mg/dL [0.50-1.40 mg/dL] *HI* (09/03/19 10:12 AM) Eosinophils [0.0-4.0 9.7 % %] *HI* (09/03/19 10:12 AM) Globulin [2.7-4.2 5.1 g/dL g/dL] *HI* (09/03/19 10:12 AM) Glucose Lvl [70-99 172 mg/dL mg/dL] *HI* (09/03/19 10:12 AM) Hct [36.0-48.0 %] 34.4 % *LOW* (09/03/19 10:12 AM) Hgb [12.0-16.0 g/dL] 11.4 g/dL *LOW* (09/03/19 10:12 AM) INR [0.85-1.17] 1.01 (09/03/19 10:12 AM) Potassium Lvl 4.7 mEq/L [3.5-5.1 mEq/L] (09/03/19 10:12 AM) Lymphocytes 22.5 % [20.0-40.0 %] (09/03/19 10:12 AM) Macrocyte [None 1+ Seen] *ABN* (09/03/19 10:12 AM) MCH [27.0-31.0 pg] 33.0 pg *HI* (09/03/19 10:12 AM) MCHC [32.0-36.0 33.2 g/dL g/dL] (09/03/19 10:12 AM) MCV [80.0-98.0 fL] 99.5 fL *HI* (09/03/19 10:12 AM) Monocytes [2.0-12.0 10.9 % %] (09/03/19 10:12 AM) MPV [7.4-10.4 fL] 9.4 fL (09/03/19 10:12 AM) Sodium Lvl [135-145 138 mEq/L mEq/L] (09/03/19 10:12 AM) Platelet [133-450 104 K/CMM K/CMM] *LOW* (09/03/19 10:12 AM) Segs [45.0-75.0 %] 56.3 % (09/03/19 10:12 AM) Total Protein 8.5 g/dL [6.4-8.4 g/dL] *HI* (09/03/19 10:12 AM) PT [12.0-14.7 13.1 seconds seconds] (09/03/19 10:12 AM) PTT [22.9-35.8 31.9 seconds seconds] (09/03/19 10:12 AM) RBC [4.20-5.40 3.46 M/CMM M/CMM] *LOW* (09/03/19 10:12 AM) RDW [11.5-14.5 %] 14.2 % (09/03/19 10:12 AM) Bili Total [0.2-1.3 0.7 mg/dL mg/dL] (09/03/19 10:12 AM) Troponin-I <0.02 ng/mL [0.00-0.40 ng/mL] (09/03/19 10:12 AM) WBC [3.7-10.4 K/CMM] 4.1 K/CMM (09/03/19 10:12 AM) 1Result Comment: The eGFR is calculated [...] Cholecystectomy1 Completed Cholecystotomy Completed Eye care Completed 71288 Social History Social History Type Response Alcohol Never Substance Abuse Use: None. Smoking Status Never smoker; Exposure to T obacco Smoke None; Cigarette Smoking Last 365 Days No; Reg Smoking Cessation Counseli ng No entered on: 09/03/19 Assessment and Plan No data available for this section
--- OUTSIDE RECORDS SUMMARY | 2020-06-17 13:09 | XMS REPORT | Summary of Care ---
Author Author [facility] Organization [facility] Address Unknown Phone Unavailable Encounter ISRAEL Schroeder(FIN) [id number] Date(s): 08/02/18 - 08/02/18 [facility] [place] [address] [place] [address]- [phone] Attending Physician: Darren Castro MD Referring Physician: [...] Cholecystectomy1 Completed Cholecystotomy Completed Eye care Completed 43461 Social History Social History Type Response Substance Abuse Use: None. Alcohol Never Smoking Status Never smoker; Exposure to T obacco Smoke None; Cigarette Smoking Last 365 Days No; Reg Smoking Cessation Counseli ng No entered on: 11/01/18 Assessment and Plan No data available for this section
--- OUTSIDE RECORDS SUMMARY | 2020-06-17 13:09 | XMS REPORT | Summary of Care ---
Author Author [facility] Organization [facility] Address Unknown Phone Unavailable Encounter HQ Elda([facility]) [id number] Date(s): 10/01/18 - 10/02/18 [facility] [address] [place] [address]- [phone] Encounter Diagnosis Closed head injury (Discharge Diagnosis) - 10/02/18 Contusion of face (Discharge Diagnosis) - 10/02/18 Contusion of other part of head, initial encounter (Final) - 10/08/18 Unspecified injury of head, initial encounter (Final) - Cervicalgia (Final) - Fall (on) (from) unspecified stairs and steps, initial encounter (Final) - 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) - Hypertensive chronic kidney disease with stage 5 chronic kidney disease or end s tage renal disease (Final) - Type 2 diabetes mellitus with diabetic chronic kidney disease (Final) - End stage renal disease (Final) - Hyperlipidemia, unspecified (Final) - Alzheimer's disease, unspecified (Final) - Dementia in other diseases classified elsewhere without behavioral disturbance (Final) - Unspecified viral hepatitis C without hepatic coma (Final) - Old myocardial infarction (Final) - Dependence on renal dialysis (Final) - Presence of aortocoronary bypass graft (Final) - Personal history of transient ischemic attack (TIA), and cerebral infarction wit hout residual deficits (Final) - 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 (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) - 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 (Final) - 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 (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) use of antithrombotics/antiplatelets (Final) - Other snf (current) drug therapy (Final) - Acquired absence of both cervix and uterus (Final) - Acquired absence of other specified parts of digestive tract (Final) - Discharge Disposition: Home or Self Care Attending Physician: Marcy Andrade DO Vital Signs 1 2 3 Most recent to oldest [Reference Range]: 98.5 DegF (10/02/18 12:58 AM) 98.2 DegF (10/01/18 5:36 PM) Temperature Oral [96.4-99.1 DegF] 140/65 mmHg (10/02/18 1:49 AM) 140/65 mmHg (10/02/18 12:58 AM) 148/69 mmHg *HI* (10/01/18 5:36 PM) Blood Pressure [90-140/60-90 mmHg] 18 BRMIN (10/02/18 1:49 AM) 18 BRMIN (10/02/18 12:58 AM) 18 BRMIN (10/01/18 5:36 PM) Respiratory Rate [14-20 BRMIN] 72 bpm (10/02/18 1:49 AM) 73 bpm (10/02/18 12:58 AM) 73 bpm (10/01/18 5:36 PM) Peripheral Pulse Rate [60-100 bpm] 54.091 kg (10/01/18 5:36 PM) Weight Problem List Condition Effective Dates [...] Cholecystectomy1 Completed Cholecystotomy Completed Eye care Completed 25320 Social History Social History Type Response Substance Abuse Use: None. Alcohol Never Smoking Status Unknown if ever smoked; Exp osure to Tobacco Smoke Unable to obtain; Cigarette Smoking Last 365 Days Unable to obtain; Reg Smoking Cessation Counseling No entered on: 6/6/19 Assessment and Plan No data available for this section
--- OUTSIDE RECORDS SUMMARY | 2020-06-17 13:10 | XMS REPORT | Summary of Care ---
Author Author [facility] Organization [facility] Address Unknown Phone Unavailable Encounter HQ Elda(MALOU) [id number] Date(s): 01/15/17 - 01/18/17 [facility] [address] [place] [address]- Discharge Disposition: Home or Self Care Attending Physician: Rome Talbert DO Admitting Physician: Rome Talbert DO Vital Signs 1 2 3 Most recent to oldest [Reference Range]: 154.94 cm (01/15/17 3:53 PM) Height 98.7 DegF (01/18/17 11:01 AM) 98.5 DegF (01/18/17 7:13 AM) 98.3 DegF (01/18/17 3:18 AM) Temperature Oral [96.4-99.1 DegF] 170/71 mmHg *HI* (01/18/17 11:01 AM) 156/70 mmHg *HI* (01/18/17 7:13 AM) 128/71 mmHg (01/18/17 3:18 AM) Blood Pressure [90-140/60-90 mmHg] 17 BRMIN (01/18/17 11:01 AM) 17 BRMIN (01/18/17 7:13 AM) 18 BRMIN (01/18/17 3:18 AM) Respiratory Rate [14-20 BRMIN] 88 bpm (01/18/17 11:01 AM) 82 bpm (01/18/17 7:13 AM) 89 bpm (01/18/17 3:18 AM) Peripheral Pulse Rate [60-100 bpm] 52.273 kg (01/15/17 3:53 PM) Weight 21.77 m2 (01/15/17 3:53 PM) Body Mass Index Problem List Condition Effective Dates Status Health Status Informan t Cholelithiasis(Confi Resolved rmed) Diabetes Active mellitus(Confirmed) Hepatitis Active C(Confirmed) Myocardial Resolved infarct(Confirmed) Stroke(Confirmed) Resolved Allergies, Adverse Reactions, Alerts Substance Reaction Severity Status NKDA Active Medications acetaminophen-hydrocodone 325 mg-5 mg oral tablet 1 tab, Route: PO, Drug Form: TAB, Dosing Weight 52.273, kg, Q4H, PRN Pain Score 4-6, Start date: 01/15/17 21:57:00 CDT, Duration: 30 day, Stop date: 02/14/17 21 :56:00 CDT Notes: (Same as: [place] 325/5) Do not exceed 4gm/day of acetaminophen. Start Date: 01/15/17 Stop Date: 01/18/17 Status: Discontinued amLODIPine 5 mg oral tablet 5 mg = 1 tab, PO, Daily, # 30 tab, 0 Refill(s) Start Date: 01/18/17 Status: Ordered aspirin 81 mg tablet, enteric coated 81 mg, 1 tab, Route: PO, Drug form: ECTAB, Daily, Dosing Weight 52.273, kg, Star t date: 01/16/17 17:00:00 CDT, Duration: 30 day, Stop date: 02/15/17 9:00:00 CDT Notes: Do not crush or chew.(Same As: Ecotrin) Start Date: 01/16/17 Stop Date: 01/18/17 Status: Discontinued aspirin 81 mg tablet, enteric coated 81 mg = 1 tab, PO, Daily, # 100 tab, 0 Refill(s) Start Date: 01/18/17 Status: Ordered Dextrose 50% Syringe 12.5 gm, 25 mL, Route: IVP, Drug Form: INJ, Dosing Weight 52.273, kg, PRN, PRN B lood Glucose Results, Start date: 01/16/17 9:50:00 CDT, Duration: 30 day, Stop d ate: 02/15/17 9:49:00 CDT Start Date: 01/16/17 Stop Date: 01/18/17 Status: Discontinued Dextrose 50% Syringe 25 gm, 50 mL, Route: IVP, Drug Form: INJ, Dosing Weight 52.273, kg, PRN, PRN Blo od Glucose Results, Start date: 01/16/17 9:50:00 CDT, Duration: 30 day, Stop srinivas e: 02/15/17 9:49:00 CDT Start Date: 01/16/17 Stop Date: 01/18/17 Status: Discontinued glucagon 1 mg, Route: IM, Drug form: PDR/INJ, PRN, Dosing Weight 52.273, kg, PRN Blood Gl ucose Results, Start date: 01/16/17 9:50:00 CDT, Duration: 30 day, Stop date: 9:49:00 CDT Start Date: 01/16/17 Stop Date: 01/18/17 Status: Discontinued hydrALAZINE 10 mg, 0.5 mL, Route: IV, Drug form: INJ, Q6H, Dosing Weight 52.273, kg, PRN Poornima vated BP, Start date: 01/16/17 11:50:00 CDT, Duration: 30 day, Stop date: 11:49:00 CDT Notes: (Same as: Apresoline)Push over 5 minutes Start Date: 01/16/17 Stop Date: 01/18/17 Status: Discontinued influenza virus vaccine, inactivated 0.5 mL, Route: IM, Drug Form: SUSP, Daily, Start date: 01/16/17 9:00:00 CDT, Dur ation: 1 doses or times, Stop date: 01/16/17 9:00:00 CDT Notes: (Same as: Fluzone Quadrivalent, Fluarix Quadrivalent)For 3 years of age a nd older (0.5 mL IM)Shake well before use Start Date: 01/16/17 Stop Date: 01/16/17 Status: Completed insulin aspart 1 unit, 0.01 mL, Route: SUB-Q, Drug form: SOLN, Bedtime, Dosing Weight 52.273, k g, PRN Blood Glucose Results, Start date: 01/16/17 9:50:00 CDT, Duration: 30 day , Stop date: 02/15/17 9:49:00 CDT Notes: Roll in palms of hands gently; Do not shake vigorously. (Same as: NovoALYSSA G)"single patient use only"WASTE: F/P - Black; E - Municipal Trash Bin Stable f or 28 days at room temperature.Expires in days from Date Start Date: 01/16/17 Stop Date: 01/18/17 Status: Discontinued insulin aspart 4 unit, 0.04 mL, Route: SUB-Q, Drug form: SOLN, Bedtime, Dosing Weight 52.273, k g, PRN Blood Glucose Results, Start date: 01/16/17 9:50:00 CDT, Duration: 30 day , Stop date: 02/15/17 9:49:00 CDT Notes: Roll in palms of hands gently; Do not shake vigorously. (Same as: Raffaele Bowen)"single patient use only"WASTE: F/P - Black; E - Municipal Trash Bin Stable f or 28 days at room temperature.Expires in days from Date Start Date: 01/16/17 Stop Date: 01/18/17 Status: Discontinued insulin aspart 3 unit, 0.03 mL, Route: SUB-Q, Drug form: SOLN, Bedtime, Dosing Weight 52.273, k g, PRN Blood Glucose Results, Start date: 01/16/17 9:50:00 CDT, Duration: 30 day , Stop date: 02/15/17 9:49:00 CDT Notes: Roll in palms of hands gently; Do not shake vigorously. (Same as: Raffaele Bowen)"single patient use only"WASTE: F/P - Black; E - Municipal Trash Bin Stable f or 28 days at room temperature.Expires in days from Date Start Date: 01/16/17 Stop Date: 01/18/17 Status: Discontinued insulin aspart 2 unit, 0.02 mL, Route: SUB-Q, Drug form: SOLN, Bedtime, Dosing Weight 52.273, k g, PRN Blood Glucose Results, Start date: 01/16/17 9:50:00 CDT, Duration: 30 day , Stop date: 02/15/17 9:49:00 CDT Notes: Roll in palms of hands gently; Do not shake vigorously. (Same as: Raffaele Bowen)"single patient use only"WASTE: F/P - Black; E - Municipal Trash Bin Stable f or 28 days at room temperature.Expires in days from Date Start Date: 01/16/17 Stop Date: 01/18/17 Status: Discontinued insulin aspart 6 unit, 0.06 mL, Route: SUB-Q, Drug form: SOLN, TID-Before Meals, Dosing Weight 52.273, kg, PRN Blood Glucose Results, Start date: 01/16/17 9:50:00 CDT, Duratio n: 30 day, Stop date: 02/15/17 9:49:00 CDT Notes: Roll in palms of hands gently; Do not shake vigorously. (Same as: Raffaele Bowen)"single patient use only"WASTE: F/P - Black; E - Municipal Trash Bin Stable f or 28 days at room temperature.Expires in days from Date Start Date: 01/16/17 Stop Date: 01/18/17 Status: Discontinued insulin aspart 4 unit, 0.04 mL, Route: SUB-Q, Drug form: SOLN, TID-Before Meals, Dosing Weight 52.273, kg, PRN Blood Glucose Results, Start date: 01/16/17 9:50:00 CDT, Duratio n: 30 day, Stop date: 02/15/17 9:49:00 CDT Notes: Roll in palms of hands gently; Do not shake vigorously. (Same as: Raffaele Bowen)"single patient use only"WASTE: F/P - Black; E - Municipal Trash Bin Stable f or 28 days at room temperature.Expires in days from Date Start Date: 01/16/17 Stop Date: 01/18/17 Status: Discontinued insulin aspart 2 unit, 0.02 mL, Route: SUB-Q, Drug form: SOLN, TID-Before Meals, Dosing Weight 52.273, kg, PRN Blood Glucose Results, Start date: 01/16/17 9:50:00 CDT, Duratio n: 30 day, Stop date: 02/15/17 9:49:00 CDT Notes: Roll in palms of hands gently; Do not shake vigorously. (Same as: NovoLO G)"single patient use only"WASTE: F/P - Black; E - Municipal Trash Bin Stable f or 28 days at room temperature.Expires in days from Date Start Date: 01/16/17 Stop Date: 01/18/17 Status: Discontinued insulin aspart 10 unit, 0.1 mL, Route: SUB-Q, Drug form: SOLN, TID-Before Meals, Dosing Weight 52.273, kg, PRN Blood Glucose Results, Start date: 01/16/17 9:50:00 CDT, Duratio n: 30 day, Stop date: 02/15/17 9:49:00 CDT Notes: Roll in palms of hands gently; Do not shake vigorously. (Same as: NovoLO G)"single patient use only"WASTE: F/P - Black; E - Municipal Trash Bin Stable f or 28 days at room temperature.Expires in days from Date Start Date: 01/16/17 Stop Date: 01/18/17 Status: Discontinued insulin aspart 8 unit, 0.08 mL, Route: SUB-Q, Drug form: SOLN, TID-Before Meals, Dosing Weight 52.273, kg, PRN Blood Glucose Results, Start date: 01/16/17 9:50:00 CDT, Duratio n: 30 day, Stop date: 02/15/17 9:49:00 CDT Notes: Roll in palms of hands gently; Do not shake vigorously. (Same as: NovoALYSSA G)"single patient use only"WASTE: F/P - Black; E - Municipal Trash Bin Stable f or 28 days at room temperature.Expires in days from Date Start Date: 01/16/17 Stop Date: 01/18/17 Status: Discontinued insulin detemir 20 unit, 0.2 mL, Route: SUB-Q, Drug form: SOLN, Daily, Priority: NOW, Start date : 01/16/17 10:43:00 CDT, Duration: 30 day, Stop date: 02/15/17 12:11:00 CDT Notes: EXPIRES 24 HRS AFTER PREP TIME AT ROOM TEMP Start Date: 01/16/17 Stop Date: 01/18/17 Status: Discontinued insulin glargine 100 units/mL subcutaneous solution 20 unit, Route: SUB-Q, Drug form: SOLN, Daily, Dosing Weight 52.273, kg, Start d ate: 01/17/17 9:00:00 CDT, Duration: 30 day, Stop date: 02/15/17 9:00:00 CDT Start Date: 01/17/17 Stop Date: 01/16/17 Status: Deleted meclizine 25 mg, 1 tab, Route: PO, Drug form: TAB, TID, Dosing Weight 52.273, kg, PRN Dizz iness, Start date: 01/17/17 13:24:00 CDT, Duration: 30 day, Stop date: 02/16/17 13:23:00 CDT Notes: (Same as: Antivert) Start Date: 01/17/17 Stop Date: 01/18/17 Status: Discontinued meclizine 25 mg oral tablet 25 mg = 1 tab, PO, TID, PRN Dizziness, X 7 day, # 21 tab, 0 Refill(s) Start Date: 01/18/17 Stop Date: 01/25/17 Status: Ordered Norvasc 5 mg, 1 tab, Route: PO, Drug form: TAB, Daily, Dosing Weight 52.273, kg, Priorit y: NOW, Start date: 01/16/17 11:50:00 CDT, Duration: 30 day, Stop date: 02/15/17 9:00:00 CDT Notes: (Same as: Norvasc) Start Date: 01/16/17 Stop Date: 01/18/17 Status: Discontinued NS (Bolus) IV 1,000 mL, 1,000 ml/hr, Infuse Over: 1 hr, Route: IV, 1,000, Drug form: INJ, ONCE , Priority: STAT, Dosing Weight 52.273 kg, Start date: 01/15/17 16:07:00 CDT, Du ration: 1 doses or times, Stop date: 01/15/17 16:07:00 CDT Start Date: 01/15/17 Stop Date: 01/15/17 Status: Discontinued ondansetron 4 mg, 2 mL, Route: IVP, Drug form: INJ, Q6H, Dosing Weight 52.273, kg, PRN Nause a & Vomiting, Start date: 01/15/17 21:57:00 CDT, Duration: 30 day, Stop date: 02/14/17 21:56:00 CDT Notes: (Same as: Zofran) MEDICATION WASTE Product Size: 4 mgProduct Was lorena: ___ mg Start Date: 01/15/17 Stop Date: 01/18/17 Status: Discontinued pneumococcal 13-valent vaccine 0.5 mL, Route: IM, Drug Form: INJ, Daily, Start date: 01/16/17 9:00:00 CDT, Dura tion: 1 doses or times, Stop date: 01/16/17 9:00:00 CDT Notes: Lightly roll vial (DO NOT SHAKE) before administration. (Same as: Prevna r 13) Start Date: 01/16/17 Stop Date: 01/16/17 Status: Completed Rocephin + sodium chloride 0.9% INJ 100 mL 1 gm, Route: IVPB, [id number], Dosing Weight 52.273, kg, Start date: 01/15/17 22:00 :00 CDT, Duration: 30 day, Stop date: 02/13/17 22:00:00 CDT Notes: (Same As: Rocephin).Use with 100 mL NS and infuse over 30 min MEDICA TION WASTE Product Size: 1000 mgProduct Wasted: ___ mg Start Date: 01/15/17 Stop Date: 01/18/17 Status: Discontinued Saline Flush 0.9% 10 ml, Route: IVP, Drug Form: INJ, Dosing Weight 52.273, kg, PRN, PRN Line Flush , Start date: 01/15/17 21:57:00 CDT, Duration: 30 day, Stop date: 02/14/17 21:56 :00 CDT Notes: (Same as: BD Posiflush) Start Date: 01/15/17 Stop Date: 01/18/17 Status: Discontinued Saline Flush 0.9% 10 mL, Route: IVP, Drug Form: INJ, Dosing Weight 52.273, kg, PRN, PRN Line Flush , Start date: 01/15/17 16:07:00 CDT, Duration: 30 day, Stop date: 02/14/17 16:06 :00 CDT Notes: (Same as: BD Posiflush) Start Date: 01/15/17 Stop Date: 01/18/17 Status: Discontinued Sodium Chloride 0.9% (Bolus) IV 1,000 mL, 1000 ml/hr, Infuse Over: 1 hr, Route: IV, 1,000, Drug form: INJ, ONCE, Priority: STAT, Dosing Weight 52.273 kg, Start date: 01/15/17 16:07:00 CDT, Dur ation: 1 doses or times, Stop date: 01/15/17 16:07:00 CDT Start Date: 01/15/17 Stop Date: 01/15/17 Status: Completed sodium chloride 0.9% 1000 ml INJ 1,000 mL 1,000 mL, Rate: 100 ml/hr, Infuse over: 10 hr, Route: IV, Dosing Weight 52.273 k g, Total Volume: 1,000, Start date: 01/15/17 21:57:00 CDT, Duration: 30 day, Sto p date: 02/14/17 21:56:00 CDT Start Date: 01/15/17 Stop Date: 01/17/17 Status: Discontinued sodium chloride 0.9% 1000 ml INJ 1,000 mL 1,000 mL, Rate: 60 ml/hr, Infuse over: 16.7 hr, Route: IV, Dosing Weight 52.273 kg, Total Volume: 1,000, Start date: 01/17/17 14:54:00 CDT, Duration: 30 day, St op date: 02/16/17 14:53:00 CDT Start Date: 01/17/17 Stop Date: 01/18/17 Status: Discontinued Tylenol 650 mg, 2 tab, Route: PO, Drug form: TAB, ONCE, Dosing Weight 52.273, kg, Priori ty: STAT, Start date: 01/15/17 16:08:00 CDT, Stop date: 01/15/17 16:08:00 CDT Notes: Do not exceed 4 gm/day. (Same as: Tylenol) Start Date: 01/15/17 Stop Date: 01/15/17 Status: Completed Results ELECTROLYTES 1 2 3 Most recent to oldest [Reference Range]: 141 mEq/L (01/18/17 3:48 AM) 143 mEq/L (01/17/17 5:34 AM) 138 mEq/L (01/16/17 3:33 AM) Sodium Lvl [135-145 mEq/L] 4.0 mEq/L (01/18/17 3:48 AM) 4.0 mEq/L (01/17/17 5:34 AM) 3.6 mEq/L (01/16/17 3:33 AM) Potassium Lvl [3.5-5.1 mEq/L] 110 mEq/L *HI* (01/18/17 3:48 AM) 110 mEq/L *HI* (01/17/17 5:34 AM) 107 mEq/L (01/16/17 3:33 AM) Chloride Lvl [95-109 mEq/L] 25 mEq/L (01/18/17 3:48 AM) 25 mEq/L (01/17/17 5:34 AM) 27 mEq/L (01/16/17 3:33 AM) CO2 [24-32 mEq/L] 10.0 mEq/L (01/18/17 3:48 AM) 12.0 mEq/L (01/17/17 5:34 AM) 7.6 mEq/L *LOW* (01/16/17 3:33 AM) AGAP [10.0-20.0 mEq/L] CHEM PANEL 1 2 3 Most recent to oldest [Reference Range]: 1.40 mg/dL (01/18/17 3:48 AM) 1.40 mg/dL (01/17/17 5:34 AM) 1.40 mg/dL (01/16/17 3:33 AM) Creatinine Lvl [0.50-1.40 mg/dL] 39 mL/min/1.73m2 1 *NA* (01/18/17 3:48 AM) 39 mL/min/1.73m2 2 *NA* (01/17/17 5:34 AM) 39 mL/min/1.73m2 3 *NA* (01/16/17 3:33 AM) eGFR 16 mg/dL (01/18/17 3:48 AM) 14 mg/dL (01/17/17 5:34 AM) 15 mg/dL (01/16/17 3:33 AM) BUN [7-22 mg/dL] 11 (01/16/17 3:33 AM) 11 (01/15/17 4:50 PM) B/C Ratio [6-25] 120 mg/dL *HI* (01/18/17 3:48 AM) 131 mg/dL *HI* (01/17/17 5:34 AM) 283 mg/dL *HI* (01/16/17 3:33 AM) Glucose Lvl [70-99 mg/dL] 6.0 g/dL *LOW* (01/16/17 3:33 AM) 6.6 g/dL (01/15/17 4:50 PM) Total Protein [6.4-8.4 g/dL] 1.8 g/dL *LOW* (01/16/17 3:33 AM) 2.2 g/dL *LOW* (01/15/17 4:50 PM) Albumin Lvl [3.5-5.0 g/dL] 4.2 g/dL (01/16/17 3:33 AM) 4.4 g/dL *HI* (01/15/17 4:50 PM) Globulin [2.7-4.2 g/dL] 0.4 *LOW* (01/16/17 3:33 AM) 0.5 *LOW* (01/15/17 4:50 PM) A/G Ratio [0.7-1.6] 7.6 mg/dL *LOW* (01/18/17 3:48 AM) 7.4 mg/dL *LOW* (01/17/17 5:34 AM) 7.3 mg/dL *LOW* (01/16/17 3:33 AM) Calcium Lvl [8.5-10.5 mg/dL] 3.0 mg/dL (01/16/17 3:33 AM) Phosphorus [2.5-4.5 mg/dL] 1.9 mg/dL (01/16/17 3:33 AM) Magnesium Lvl [1.8-2.4 mg/dL] 7 unit/L (01/16/17 3:33 AM) 11 unit/L (01/15/17 4:50 PM) ALT [0-65 unit/L] 20 unit/L (01/16/17 3:33 AM) 26 unit/L (01/15/17 4:50 PM) AST [0-37 unit/L] 97 unit/L (01/16/17 3:33 AM) 122 unit/L (01/15/17 4:50 PM) Alk Phos [39-136 unit/L] 0.3 mg/dL (01/16/17 3:33 AM) 0.5 mg/dL (01/15/17 4:50 PM) Bili Total [0.2-1.3 mg/dL] 18.0 uMol/L (01/17/17 3:41 PM) Ammonia [<=45.0 uMol/L] 0.5 mMol/L (01/15/17 10:10 PM) 1.0 mMol/L (01/15/17 4:50 PM) Lactic Acid Lvl [0.5-2.2 mMol/L] 0.23 ng/mL *HI* (01/15/17 4:48 PM) Procalcitonin Lvl [0.00-0.10 ng/mL] 1Result Comment: The eGFR is calculated using [...] 3 Most recent to oldest [Reference Range]: 80 unit/L (01/15/17 4:50 PM) Total CK [12-191 unit/L] 1.1 ng/mL (01/15/17 4:50 PM) CK MB [0.5-3.6 ng/mL] 1.4 (01/15/17 4:50 PM) CK MB Index [0.0-2.5] <0.02 ng/mL (01/16/17 8:38 AM) <0.02 ng/mL (01/16/17 2:15 AM) <0.02 ng/mL (01/15/17 4:50 PM) Troponin-I [0.00-0.40 ng/mL] SPECIAL CHEMISTRY 1 2 3 Most recent to oldest [Reference Range]: 11.0 % *HI* (01/16/17 12:14 PM) Hgb A1C [<=5.6 %] ANEMIA STUDY 1 2 3 Most recent to oldest [Reference Range]: 528 pg/mL (01/17/17 5:34 AM) Vitamin B12 Lvl [254-1320 pg/mL] URINE AND STOOL 1 2 3 Most recent to oldest [Reference Range]: Slight *ABN* (01/15/17 6:19 PM) UA Turbidity [Clear] Yellow *NA* (01/15/17 6:19 PM) UA Color [Yellow] 6.0 (01/15/17 6:19 PM) UA pH [5.0-8.0] 1.015 (01/15/17 6:19 PM) UA Spec Grav [<=1.030] 500 mg/dL *ABN* (01/15/17 6:19 PM) UA Glucose [Negative mg/dL] Small *ABN* (01/15/17 6:19 PM) UA Blood [Negative] Negative mg/dL *NA* (01/15/17 6:19 PM) UA Ketones [Negative mg/dL] >=300 mg/dL *ABN* (01/15/17 6:19 PM) UA Protein [Negative mg/dL] <=1.0 mg/dL *NA* (01/15/17 6:19 PM) UA Urobilinogen [0.1-1.0 mg/dL] Negative *NA* (01/15/17 6:19 PM) UA Bili [Negative] Negative (01/15/17 6:19 PM) UA Leuk Est [Negative] Negative (01/15/17 6:19 PM) UA Nitrite [Negative] 8 /HPF *HI* (01/15/17 6:19 PM) UA WBC [0-5 /HPF] 8 /HPF *HI* (01/15/17 6:19 PM) UA RBC [0-2 /HPF] Occasional /HPF *NA* (01/15/17 6:19 PM) UA Bacteria [None Seen /HPF] Many /LPF *ABN* (01/15/17 6:19 PM) UA Sq Epi [Few /LPF] 3 /LPF *HI* (01/15/17 6:19 PM) UA Hyal Cast [0-2 /LPF] HEMATOLOGY 1 2 3 Most recent to oldest [Reference Range]: 5.1 K/CMM (01/18/17 3:48 AM) 7.5 K/CMM (01/17/17 5:34 AM) 9.3 K/CMM (01/16/17 3:33 AM) WBC [3.7-10.4 K/CMM] 2.71 M/CMM *LOW* (01/18/17 3:48 AM) 2.83 M/CMM *LOW* (01/17/17 5:34 AM) 3.01 M/CMM *LOW* (01/16/17 3:33 AM) RBC [4.20-5.40 M/CMM] 8.1 g/dL *LOW* (01/18/17 3:48 AM) 8.4 g/dL *LOW* (01/17/17 5:34 AM) 9.0 g/dL *LOW* (01/16/17 3:33 AM) Hgb [12.0-16.0 g/dL] 23.4 % *LOW* (01/18/17 3:48 AM) 24.4 % *LOW* (01/17/17 5:34 AM) 26.1 % *LOW* (01/16/17 3:33 AM) Hct [36.0-48.0 %] 86.3 fL (01/18/17 3:48 AM) 86.0 fL (01/17/17 5:34 AM) 86.4 fL (01/16/17 3:33 AM) MCV [80.0-98.0 fL] 29.7 pg (01/18/17 3:48 AM) 29.7 pg (01/17/17 5:34 AM) 29.7 pg (01/16/17 3:33 AM) MCH [27.0-31.0 pg] 34.4 g/dL (01/18/17 3:48 AM) 34.5 g/dL (01/17/17 5:34 AM) 34.4 g/dL (01/16/17 3:33 AM) MCHC [32.0-36.0 g/dL] 13.5 % (01/18/17 3:48 AM) 13.4 % (01/17/17 5:34 AM) 13.5 % (01/16/17 3:33 AM) RDW [11.5-14.5 %] 153 K/CMM (01/18/17 3:48 AM) 149 K/CMM (01/17/17 5:34 AM) 125 K/CMM *LOW* (01/16/17 3:33 AM) Platelet [133-450 K/CMM] 8.1 fL (01/18/17 3:48 AM) 7.8 fL (01/17/17 5:34 AM) 8.2 fL (01/16/17 3:33 AM) MPV [7.4-10.4 fL] 52.6 % (01/18/17 3:48 AM) 65.5 % (01/17/17 5:34 AM) 64.5 % (01/16/17 3:33 AM) Segs [45.0-75.0 %] 30.9 % (01/18/17 3:48 AM) 21.5 % (01/17/17 5:34 AM) 24.0 % (01/16/17 3:33 AM) Lymphocytes [20.0-40.0 %] 10.1 % (01/18/17 3:48 AM) 9.1 % (01/17/17 5:34 AM) 8.1 % (01/16/17 3:33 AM) Monocytes [2.0-12.0 %] 6.0 % *HI* (01/18/17 3:48 AM) 3.6 % (01/17/17 5:34 AM) 3.1 % (01/16/17 3:33 AM) Eosinophils [0.0-4.0 %] 0.4 % (01/18/17 3:48 AM) 0.3 % (01/17/17 5:34 AM) 0.3 % (01/16/17 3:33 AM) Basophils [0.0-1.0 %] 2.7 K/CMM (01/18/17 3:48 AM) 4.9 K/CMM (01/17/17 5:34 AM) 6.0 K/CMM (01/16/17 3:33 AM) Segs-Bands # [1.5-8.1 K/CMM] 1.6 K/CMM (01/18/17 3:48 AM) 1.6 K/CMM (01/17/17 5:34 AM) 2.2 K/CMM (01/16/17 3:33 AM) Lymphocytes # [1.0-5.5 K/CMM] 0.5 K/CMM (01/18/17 3:48 AM) 0.7 K/CMM (01/17/17 5:34 AM) 0.8 K/CMM (01/16/17 3:33 AM) Monocytes # [0.0-0.8 K/CMM] 0.3 K/CMM (01/18/17 3:48 AM) 0.3 K/CMM (01/17/17 5:34 AM) 0.3 K/CMM (01/16/17 3:33 AM) Eosinophils # [0.0-0.5 K/CMM] 13.2 seconds (01/15/17 4:50 PM) PT [12.0-14.7 seconds] 0.98 (01/15/17 4:50 PM) INR [0.85-1.17] 25.1 seconds (01/15/17 4:50 PM) PTT [22.9-35.8 seconds] RAPID 1 2 3 Most recent to oldest [Reference Range]: Negative (01/15/17 5:49 PM) Grp A Strep Scr [Negative] VIRAL - SEROLOGY 1 2 3 Most recent to oldest [Reference Range]: Negative (01/15/17 5:49 PM) Influ A [Negative] Negative (01/15/17 5:49 PM) Influ B [Negative] Immunizations Given and Recorded Vaccine Date Status Refusal Reason influenza virus vaccine, inactivated 01/16/17 G iven pneumococcal 13-valent vaccine 01/16/17 Given pneumococcal 23-valent vaccine 02/18/16 Given Procedures Procedure Date Related Diagnosis Body Site Abdominal hysterectomy CABG x 1 - Coronary artery bypass graft x 1 Cholecystectomy1 Cholecystotomy [facility] 17483 Social History Social History Type Response Substance Abuse Use: None. Alcohol Never Smoking Status Never smoker; Exposure to T obacco Smoke None; Cigarette Smoking Last 365 Days No; Reg Smoking Cessation Counseli ng No Assessment and Plan Extracted from: Title: Clinical Document Author: Rome Talbert DO Srinivas e: 01/18/17 Progress Daily [facility] Completed: Dec, 13:23 by Rome Talbert DO RM: 135 - 1D, SE [id number], [id number] (: 1950) F Attending: Rome Talbert: Service: Internal Medicine Reason for Admission: ACUTE KIDNEY INJURY, DEHYDRATION, FEVER Working DRG: Renal failure w/o CC/[facility] Code status: None Specified=FULL CODECurrent diet: Isolation: None Documented Allergies: NKDA SUBJECTIVE Patient seen and examined. Events noted overnight. Labs/Images reviewed doing ok, no other issues OBJECTIVE Labs (Last four charted values) WBC 5.1(JAN 18)7.5(JAN 17)9.3(JAN 16)H 13.9(JAN 15) Hgb L 8.1(JAN 18)L 8.4(JAN 17)L 9.0(JAN 16)L 8.8(JAN 15) Hct L 23.4(JAN 18)L 24.4(JAN 17)L 26.1(JAN 16)L 25.9(JAN 15) Plt 153(JAN 18)149(JAN 17)L 125(JAN 16)L 121(JAN 15) Na 141(JAN 18)143(JAN 17)138(JAN 16)137(JAN 15) K 4.0(JAN 18)4.0(JAN 17)3.6(JAN 16)3.5(JAN 15) CO2 25(JAN 18)25(JAN 17)27(JAN 16)24(JAN 15) Cl H 110(JAN 18)H 110(JAN 17)107(JAN 16)105(JAN 15) Cr 1.40(JAN 18)1.40(JAN 17)1.40(JAN 16)H 1.60(JAN 15) BUN 16(JAN 18)14(JAN 17)15(JAN 16)17(JAN 15) Glucose Random H 120(JAN 18)H 131(JAN 17)H 283(JAN 16)H 247(JAN 15) Mg 1.9(JAN 16) Phos 3.0(JAN 16) Ca L 7.6(JAN 18)L 7.4(JAN 17)L 7.3(JAN 16)L 7.3(JAN 15) PT 13.2(JAN 15) INR 0.98(JAN 15) PTT 25.1(JAN 15) Troponin <0.02(JAN 16)<0.02(JAN 16)<0.02(JAN 15) CK MB 1.1(JAN 15) Total CK 80(JAN 15) ASSESSMENT & EXAM Gen: NAD, Alert, Awake HEENT: NC/AT, PERRLA, oral area clear and moist Neck: No LAD, No JVD, trachea midline Chest: CTAB, no c/w/r CV: RRR, S1, S2 GI: +BS, S, NT, ND, No organomegaly Ext: no c/c/ trace edema Neuro: AOx3, no gross deficits noted Skin: No notable rashes PLAN & TREATMENT cultures so far negative on abx Hep C - not on treatment - will need oupt f/u with GI or liver specialist no elevation of LFT's low albumin - poss from poor nutrtion vs liver cirrhosis US shows liver cirrhosis - likely from liver cirrhosi dc home with home health Bp improved DIAGNOSES & PROBLEMS Recurrent falls syncope and collapse - cardiogenic vs nerugenic vs vasovagal Fever - presume UTI with sepsis Uncontrolled DM2 severe dehydration Acute renal failure Hypoalbunemia - from severe PCM vs liver disease SIRS accelerated/malignant hypertension Ready for Discharge (Yes/No)? Poon still necessary (Yes/No): Line still necessary (Yes/No): 24hr Labs 01/18 1109 Glucose HDG429 H 01/18 0607 Glucose TSM877 H 01/18 0407 Glucose MFO099 H 01/18 0348 Glucose Oyu242 H BUN16 Creatinine Lvl1.40 Sodium Ttn283 Potassium Lvl4.0 Chloride Cwc507 H CO225 AGAP10.0 Calcium Lvl7.6 L eGFR39 WBC5.1 RBC2.71 L Hgb8.1 L Hct23.4 L MCV86.3 MCH29.7 MCHC34.4 RDW13.5 Zwbyefev093 MPV8.1 Segs52.6 Hycfprkhe57.1 Zoentzuprwm44.9 Eosinophils6.0 H Basophils0.4 Segs-Bands #2.7 Lymphocytes #1.6 Monocytes #0.5 Eosinophils #0.3 01/17 2104 Glucose DUK849 H 01/17 1608 Glucose PYJ758 H 01/17 1541 Lksiphq54.0 01/17 0534 TSH2.280 Vitamin B12 Dlx283 VitalsTmp(F)WjtgdNXCSLnX3ZHX0 01/18 11:0198.532674/783811--- 01/18 07:1398.789572/454975--- 01/18 03:1898.275577/999593--- 01/17 23:4698.8028361/284211--- 01/17 19:5698.828916/864315--- 24 Hr Tmax: 98.7F (37.06c) at 01/18 11:0 1Vital Signs are the last 5 in the past 48 hours. DateWt(kg)Wt(lb)Ht(cm)Ht(in)Method 01/15 (initial) 52.27 115.00Measured 12/20144.94 61.00Stated I&ORecordInOutBal 12/2323hr Tot 240 0 240 12/2223hr Tot 1620 0 1620 Medications (23) Active Scheduled Meds (4): 01/16/17 amLODIPine (Norvasc) 5 mg PO Da dex 01/16/17 aspirin (aspirin 81 mg tablet, enteric coated) 81 mg PO Daily 01/15/17 cefTRIAXone + sodium chloride 0 .9% INJ 100 mL (Rocephin + sodium chloride 0.9% INJ 100 mL) 1 gm IVPB VUJH80D 200 ml/hr 01/16/17 insulin detemir 20 unit [...] 1,000 mL 1,000 mL 60 ml/hr Extracted from: Title: Clinical Document Author: Juan Antonio More MD Date: Cardiology Consult Note [facility] Chief Complaint- syncope HPI-this is a 67-year-old female with remote history of CAD with prior CA and stents about 3 years ago she [...] 0.9% INJ 100 mL) 1 gm IVPB NLEG38S 200 ml/hr 01/16/17 insulin detemir 20 unit SUB-Q D aily 0 ml/hr Allergies: NKDA VitalsTmp(F)[id number] 01/16 11:41----95100/77-------- 01/16 11:40----45983/77-------- 01/16 11:[id number]--- 01/16 07:[id number]/[id number]--- 01/16 03:[id number]--- 24 Hr Tmax: 101.9F (38.83c) at 01/15 15: 53Vital Signs are the last 5 in the past 48 hours. Physical exam General: Awake and Alert, NAD HEENT: Neck Supple, No JVD CVS: Regular rate, Normal S1S2 LUNGS: CTA, No rales or wheezing ABD: Soft, Non-tender, + BS EXT: No edema, 2+ pedal pulses Skin: No ulcers Neuro: Awake and Alert, Oriented x 3 Labs (Last four charted values) WBC 9.3(JAN 16)H 13.9(JAN 15) Hgb L 9.0(JAN 16)L 8.8(JAN 15) Hct L 26.1(JAN 16)L 25.9(JAN 15) Plt L 125(JAN 16)L 121(JAN 15) Na 138(JAN 16)137(JAN 15)136(JAN 15) K 3.6(JAN 16)3.5(JAN 15)3.9(JAN 15) CO2 27(JAN 16)24(JAN 15)25(JAN 15) Cl 107(JAN 16)105(JAN 15)102(JAN 15) Cr 1.40(JAN 16)H 1.60(JAN 15)H 1.70(JAN 15) BUN 15(JAN 16)17(JAN 15)18(JAN 15) Glucose Random H 283(JAN 16)H 247(JAN 15)H 292(JAN 15) Mg 1.9(JAN 16) Phos 3.0(JAN 16) Ca L 7.3(JAN 16)L 7.3(JAN 15)L 7.8(JAN 15) PT 13.2(JAN 15) INR 0.98(JAN 15) PTT 25.1(JAN 15) Troponin <0.02(JAN 16)<0.02(JAN 16)<0.02(JAN 15) CK MB 1.1(JAN 15) Total CK 80(JAN 15) EKG nsr Impression 67-year-old female with [...]
--- OUTSIDE RECORDS SUMMARY | 2020-06-17 13:10 | XMS REPORT | Summary of Care ---
Author Author [facility] Organization [facility] Address Unknown Phone Unavailable Encounter ISRAEL Schroeder(MALOU) [id number] Date(s): 01/24/17 - 01/31/17 [facility] [address] [place] [address]- Discharge Diagnosis: Chest pain in adult Discharge Diagnosis: Hyperglycemia Discharge Diagnosis: SOB (shortness of breath) Discharge Disposition: Home or Self Care Attending Physician: Eagle Bullock MD Admitting Physician: Eagle Bullock MD Vital Signs 1 2 3 Most recent to oldest [Reference Range]: 154.94 cm (01/24/17 9:09 PM) 154.94 cm (01/24/17 10:16 AM) Height 98.4 DegF (01/31/17 11:05 AM) 98.3 DegF (01/31/17 7:00 AM) 98.8 DegF (01/31/17 4:00 AM) Temperature Oral [96.4-99.1 DegF] 141/69 mmHg *HI* (01/31/17 11:05 AM) 126/53 mmHg (01/31/17 10:05 AM) 105/74 mmHg (01/31/17 9:00 AM) Blood Pressure [90-140/60-90 mmHg] 9 BRMIN *LOW* (01/31/17 11:05 AM) 16 BRMIN (01/31/17 10:05 AM) 16 BRMIN (01/31/17 9:00 AM) Respiratory Rate [14-20 BRMIN] 96 bpm (01/24/17 8:15 PM) 97 bpm (01/24/17 7:44 PM) 92 bpm (01/24/17 10:16 AM) Peripheral Pulse Rate [60-100 bpm] 56.818 kg (01/24/17 9:09 PM) 50 kg (01/24/17 10:16 AM) Weight 23.67 m2 (01/24/17 9:09 PM) 20.83 m2 (01/24/17 10:16 AM) Body Mass Index Problem List Condition Effective Dates Status Health Status Informan t Alzheimer Resolved disease(Confirmed) Cholelithiasis(Confi Resolved rmed) Diabetes Active mellitus(Confirmed) Hepatitis Active C(Confirmed) Myocardial Resolved infarct(Confirmed) Stroke(Confirmed) Resolved Allergies, Adverse Reactions, Alerts Substance Reaction Severity Status NKDA Active Medications aspirin 324 mg, Route: CHEW, Drug form: CHEWTAB, ONCE, Dosing Weight 50, kg, Priority: S TAT, Start date: 01/24/17 10:33:00 CDT, Stop date: 01/24/17 10:33:00 CDT Start Date: 01/24/17 Stop Date: 01/24/17 Status: Completed aspirin 81 mg tablet, enteric coated 81 mg, 1 tab, Route: PO, Drug form: ECTAB, Daily, Dosing Weight 56.818, kg, Star t date: 01/25/17 13:00:00 CDT, Duration: 30 day, Stop date: 02/24/17 9:00:00 CDT Notes: Do not crush or chew.(Same As: Ecotrin) Start Date: 01/25/17 Stop Date: 01/31/17 Status: Discontinued Augmentin 875 mg oral tablet 1 tab, Route: PO, Drug Form: TAB, Dosing Weight 56.818, kg, [id number], Start date: 01/31/17 11:00:00 CDT, Duration: 10 day, Stop date: 02/09/17 23:00:00 CDT Notes: With food.(Same as: Augmentin 875) Start Date: 01/31/17 Stop Date: 01/31/17 Status: Discontinued Augmentin 875 mg oral tablet 1 tab, PO, Q12H, with food or milk, # 20 tab, 0 Refill(s) Start Date: 01/31/17 Stop Date: 02/01/17 Status: Completed benzonatate 200 mg, 2 cap, Route: PO, Drug form: CAP, TID, Dosing Weight 56.818, kg, Start d ate: 01/25/17 14:00:00 CDT, Duration: 30 day, Stop date: 02/24/17 6:00:00 CDT Notes: (Same As: Robby Roman)"Do Not Crush" Start Date: 01/25/17 Stop Date: 01/31/17 Status: Discontinued benzonatate 200 mg oral capsule 200 mg = 1 cap, PO, TID, # 30 cap, 0 Refill(s) Start Date: 01/24/17 Stop Date: 02/03/17 Status: Ordered cefepime + sodium chloride 0.9% INJ 100 mL 1 gm, Route: IVPB, [id number], Dosing Weight 50, kg, (CrCl <10 ml/min or IHD), Start date: 01/25/17 16:00:00 CDT, Duration: 30 day, Stop date: 02/23/17 16:00:00 CDT Notes: (Same As: Maxipime) MEDICATION WASTE Product Size: 1000 mgProduc t Wasted: ___ mg Start Date: 01/25/17 Stop Date: 01/31/17 Status: Discontinued cefepime + sodium chloride 0.9% INJ 100 mL 1 gm, Route: IVPB, ONCE, Dosing Weight 50, kg, Priority: STAT, Start date: 01/24 13:43:00 CDT, Stop date: 01/24/17 13:43:00 CDT Notes: (Same As: Maxipime) MEDICATION WASTE Product Size: 1000 mgProduc t Wasted: ___ mg Start Date: 01/24/17 Stop Date: 01/24/17 Status: Completed Combivent Respimat CFC free 100 mcg-20 mcg/inh inhalation aerosol 1 puff, INHALATION, QID, # 2 ea, 1 Refill(s) Start Date: 01/31/17 Status: Ordered Dextrose 50% Syringe 25 gm, 50 mL, Route: IVP, Drug Form: INJ, Dosing Weight 50, kg, PRN, PRN Blood G lucose Results, Start date: 01/24/17 15:09:00 CDT, Duration: 30 day, Stop date: 02/23/17 15:08:00 CDT Start Date: 01/24/17 Stop Date: 01/31/17 Status: Discontinued Dextrose 50% Syringe 12.5 gm, 25 mL, Route: IVP, Drug Form: INJ, Dosing Weight 50, kg, PRN, PRN Blood Glucose Results, Start date: 01/24/17 15:09:00 CDT, Duration: 30 day, Stop date: 02/23/17 15:08:00 CDT Start Date: 01/24/17 Stop Date: 01/31/17 Status: Discontinued Dilaudid 0.5 mg, 0.5 mL, Route: IVP, Drug form: INJ, Q4H, Dosing Weight 56.818, kg, PRN P ain Score 7-10, Start date: 01/27/17 20:08:00 CDT, Duration: 30 day, Stop date: 02/26/17 20:07:00 CDT Start Date: 01/27/17 Stop Date: 01/31/17 Status: Discontinued DuoNeb inhalation solution 3 mL, Route: NEB, Drug Form: SOLN, Dosing Weight 50, kg, RQ6H, Start date: 01/24 20:00:00 CDT, Duration: 30 day, Stop date: 02/23/17 14:00:00 CDT Notes: (Same as: Duoneb) Start Date: 01/24/17 Stop Date: 01/31/17 Status: Discontinued ferrous sulfate See Instructions, PO, 0 Refill(s) Start Date: 01/24/17 Status: Ordered ferrous sulfate 325 mg, 1 tab, Route: PO, Drug form: ECTAB, BID-Meals, Dosing Weight 56.818, kg, Start date: 01/25/17 17:00:00 CDT, Duration: 30 day, Stop date: 02/24/17 8:00:00 CDT Notes: Give with food. "Do Not Crush" Start Date: 01/25/17 Stop Date: 01/31/17 Status: Discontinued furosemide 80 mg, 8 mL, Route: IVP, Drug form: INJ, ONCE, Dosing Weight 50, kg, Priority: S TAT, Start date: 01/24/17 11:47:00 CDT, Stop date: 01/24/17 11:47:00 CDT Notes: (Same as: Lasix) MEDICATION WASTE Product Size: 40 mgProduct Was lorena: ___ mg Start Date: 01/24/17 Stop Date: 01/24/17 Status: Completed glucagon 1 mg, Route: IM, Drug form: PDR/INJ, PRN, Dosing Weight 50, kg, PRN Blood Glucos e Results, Start date: 01/24/17 15:09:00 CDT, Duration: 30 day, Stop date: 02/23 15:08:00 CDT Start Date: 01/24/17 Stop Date: 01/31/17 Status: Discontinued insulin aspart 3 unit, 0.03 mL, Route: SUB-Q, Drug form: SOLN, Bedtime, Dosing Weight 50, kg, P RN Blood Glucose Results, Start date: 01/24/17 15:09:00 CDT, Duration: 30 day, S top date: 02/23/17 15:08:00 CDT Notes: Roll in palms of hands gently; Do not shake vigorously. (Same as: Raffaele Bowen)"single patient use only"WASTE: F/P - Black; E - Municipal Trash Bin Stable f or 28 days at room temperature.Expires in days from Date Start Date: 01/24/17 Stop Date: 01/31/17 Status: Discontinued insulin aspart 4 unit, 0.04 mL, Route: SUB-Q, Drug form: SOLN, Bedtime, Dosing Weight 50, kg, P RN Blood Glucose Results, Start date: 01/24/17 15:09:00 CDT, Duration: 30 day, S top date: 02/23/17 15:08:00 CDT Notes: Roll in palms of hands gently; Do not shake vigorously. (Same as: Raffaele Bowen)"single patient use only"WASTE: F/P - Black; E - Municipal Trash Bin Stable f or 28 days at room temperature.Expires in days from Date Start Date: 01/24/17 Stop Date: 01/31/17 Status: Discontinued insulin aspart 2 unit, 0.02 mL, Route: SUB-Q, Drug form: SOLN, Bedtime, Dosing Weight 50, kg, P RN Blood Glucose Results, Start date: 01/24/17 15:09:00 CDT, Duration: 30 day, S top date: 02/23/17 15:08:00 CDT Notes: Roll in palms of hands gently; Do not shake vigorously. (Same as: Raffaele Bowen)"single patient use only"WASTE: F/P - Black; E - Municipal Trash Bin Stable f or 28 days at room temperature.Expires in days from Date Start Date: 01/24/17 Stop Date: 01/31/17 Status: Discontinued insulin aspart 3 unit, 0.03 mL, Route: SUB-Q, Drug form: SOLN, TID-Before Meals, Dosing Weight 50, kg, PRN Blood Glucose Results, Start date: 01/24/17 15:09:00 CDT, Duration: 30 day, Stop date: 02/23/17 15:08:00 CDT Notes: Roll in palms of hands gently; Do not shake vigorously. (Same as: Raffaele Bowen)"single patient use only"WASTE: F/P - Black; E - Municipal Trash Bin Stable f or 28 days at room temperature.Expires in days from Date Start Date: 01/24/17 Stop Date: 01/31/17 Status: Discontinued insulin aspart 6 unit, 0.06 mL, Route: SUB-Q, Drug form: SOLN, TID-Before Meals, Dosing Weight 50, kg, PRN Blood Glucose Results, Start date: 01/24/17 15:09:00 CDT, Duration: 30 day, Stop date: 02/23/17 15:08:00 CDT Notes: Roll in palms of hands gently; Do not shake vigorously. (Same as: Raffaele Bowen)"single patient use only"WASTE: F/P - Black; E - Municipal Trash Bin Stable f or 28 days at room temperature.Expires in days from Date Start Date: 01/24/17 Stop Date: 01/31/17 Status: Discontinued insulin aspart 9 unit, 0.09 mL, Route: SUB-Q, Drug form: SOLN, TID-Before Meals, Dosing Weight 50, kg, PRN Blood Glucose Results, Start date: 01/24/17 15:09:00 CDT, Duration: 30 day, Stop date: 02/23/17 15:08:00 CDT Notes: Roll in palms of hands gently; Do not shake vigorously. (Same as: Raffaele Bowen)"single patient use only"WASTE: F/P - Black; E - Municipal Trash Bin Stable f or 28 days at room temperature.Expires in days from Date Start Date: 01/24/17 Stop Date: 01/31/17 Status: Discontinued insulin aspart 12 unit, 0.12 mL, Route: SUB-Q, Drug form: SOLN, TID-Before Meals, Dosing Weight 50, kg, PRN Blood Glucose Results, Start date: 01/24/17 15:09:00 CDT, Duration: 30 day, Stop date: 02/23/17 15:08:00 CDT Notes: Roll in palms of hands gently; Do not shake vigorously. (Same as: Raffaele Bowen)"single patient use only"WASTE: F/P - Black; E - Municipal Trash Bin Stable f or 28 days at room temperature.Expires in days from Date Start Date: 01/24/17 Stop Date: 01/31/17 Status: Discontinued insulin aspart 1 unit, 0.01 mL, Route: SUB-Q, Drug form: SOLN, Bedtime, Dosing Weight 50, kg, P RN Blood Glucose Results, Start date: 01/24/17 15:09:00 CDT, Duration: 30 day, S top date: 02/23/17 15:08:00 CDT Notes: Roll in palms of hands gently; Do not shake vigorously. (Same as: Raffaele Bowen)"single patient use only"WASTE: F/P - Black; E - Municipal Trash Bin Stable f or 28 days at room temperature.Expires in days from Date Start Date: 01/24/17 Stop Date: 01/31/17 Status: Discontinued insulin aspart 15 unit, 0.15 mL, Route: SUB-Q, Drug form: SOLN, TID-Before Meals, Dosing Weight 50, kg, PRN Blood Glucose Results, Start date: 01/24/17 15:09:00 CDT, Duration: 30 day, Stop date: 02/23/17 15:08:00 CDT Notes: Roll in palms of hands gently; Do not shake vigorously. (Same as: NovoLO G)"single patient use only"WASTE: F/P - Black; E - Municipal Trash Bin Stable f or 28 days at room temperature.Expires in days from Date Start Date: 01/24/17 Stop Date: 01/31/17 Status: Discontinued insulin aspart 5 unit, SUB-Q, TID-Before Meals, 0 Refill(s) Start Date: 01/31/17 Status: Ordered insulin detemir 100 units/mL subcutaneous solution 15 unit, SUB-Q, Bedtime, 0 Refill(s) Start Date: 01/31/17 Status: Ordered Insulin regular 10 unit, Route: IVP, ONCE, Dosing Weight 50, kg, Priority: STAT, Start date: 11:38:00 CDT, Stop date: 01/24/17 11:38:00 CDT Start Date: 01/24/17 Stop Date: 01/24/17 Status: Completed Lasix 40 mg, 4 mL, Route: IV, Drug form: INJ, Q12H, Dosing Weight 50, kg, Start date: 01/25/17 4:00:00 CDT, Duration: 30 day, Stop date: 02/23/17 16:00:00 CDT Notes: (Same as: Lasix) MEDICATION WASTE Product Size: 40 mgProduct Was lorena: ___ mg Start Date: 01/25/17 Stop Date: 01/30/17 Status: Discontinued Lasix 40 mg oral tablet 40 mg, 1 tab, Route: PO, Drug form: TAB, BID, Dosing Weight 56.818, kg, Start da te: 01/30/17 17:00:00 CDT, Duration: 30 day, Stop date: 03/01/17 9:00:00 CDT Notes: (Same as: Lasix) May cause GI upset. Give with food or milk. Start Date: 01/30/17 Stop Date: 01/31/17 Status: Discontinued Lasix 40 mg oral tablet 40 mg = 1 tab, PO, BID, # 60 tab, 1 Refill(s) Start Date: 01/31/17 Status: Ordered Levemir 10 unit, 0.1 mL, Route: SUB-Q, Drug form: SOLN, Bedtime, Dosing Weight 56.818, k g, Start date: 01/28/17 21:00:00 CDT, Duration: 30 day, Stop date: 02/26/17 21:0 0:00 CDT Notes: Same as LevemirDo not hold insulin without contacting prescriberWASTE: F/ P - Black; E - Municipal Trash Bin "single patient use only" Start Date: 01/28/17 Stop Date: 01/31/17 Status: Discontinued Levemir 15 unit, 0.15 mL, Route: SUB-Q, Drug form: SOLN, Bedtime, Dosing Weight 50, kg, Start date: 01/24/17 21:00:00 CDT, Stop date: 02/22/17 21:00:00 CDT Notes: Same as LevemirDo not hold insulin without contacting prescriberWASTE: F/ P - Black; E - Municipal Trash Bin "single patient use only" Start Date: 01/24/17 Stop Date: 01/31/17 Status: Discontinued levofloxacin 500 mg, 100 mL, Route: IVPB, Drug form: SOLN, ONCE, Dosing Weight 50, kg, Start date: 01/24/17 13:43:00 CDT, Stop date: 01/24/17 13:43:00 CDT Notes: (Same as:Levaquin) Start Date: 01/24/17 Stop Date: 01/24/17 Status: Completed morphine Sulfate 2 mg, 1 mL, Route: IV, Drug form: INJ, Q6H, Dosing Weight 56.818, kg, PRN Headac he 7-10, Start date: 01/26/17 12:35:00 CDT, Duration: 30 day, Stop date: 7 12:34:00 CDT Notes: (Same as:MORPhine Sulfate) Start Date: 01/26/17 Stop Date: 01/31/17 Status: Discontinued NovoLOG 5 unit, 0.05 mL, Route: SUB-Q, Drug form: SOLN, TID-Before Meals, Dosing Weight 50, kg, Start date: 01/24/17 16:30:00 CDT, Stop date: 02/23/17 11:30:00 CDT Notes: Roll in palms of hands gently; Do not shake vigorously. (Same as: Raffaele Bowen)"single patient use only"WASTE: F/P - Black; E - Municipal Trash Bin Stable f or 28 days at room temperature.Expires in days from Date Start Date: 01/24/17 Stop Date: 01/31/17 Status: Discontinued NovoLOG SUB-Q, TID-Before Meals, 0 Refill(s) Start Date: 01/24/17 Status: Ordered NS (Bolus) IV 500 mL, 500 ml/hr, Infuse Over: 1 hr, Route: IV, ONCE, Priority: STAT, Dosing We ight 50 kg, Start date: 01/24/17 11:12:00 CDT, Duration: 1 doses or times, Stop date: 01/24/17 11:12:00 CDT Start Date: 01/24/17 Stop Date: 01/24/17 Status: Completed ondansetron 4 mg, 2 mL, Route: IV, Drug form: INJ, Q6H, Dosing Weight 56.818, kg, PRN as nee ded for nausea/vomiting, Priority: STAT, Start date: 01/26/17 12:36:00 CDT, Dura tion: 30 day, Stop date: 02/25/17 12:35:00 CDT Notes: (Same as: Rosanne) MEDICATION WASTE Product Size: 4 mgProduct Was lorena: none Start Date: 01/26/17 Stop Date: 01/31/17 Status: Discontinued potassium chloride 20 mEq oral tablet, extended release 40 mEq, 2 tab, Route: PO, Drug form: ERTAB, ONCE, Dosing Weight 56.818, kg, Star t date: 01/26/17 10:49:00 CDT, Stop date: 01/26/17 10:49:00 CDT Notes: (Same as: TeresaDur 20)"Do Not Crush" With food and full glass of water Start Date: 01/26/17 Stop Date: 01/26/17 Status: Completed Robitussin-AC oral syrup 5 mL, PO, Q4H, PRN Cough/Congestion, # 240 mL, 0 Refill(s) Start Date: 01/31/17 Stop Date: 02/01/17 Status: Completed Robitussin-AC oral syrup 5 ml, Route: PO, Drug Form: LIQ, Dosing Weight 50, kg, Q4H, PRN Cough/Congestion , Start date: 01/24/17 15:11:00 CDT, Duration: 30 day, Stop date: 02/23/17 15:10 :00 CDT Notes: (Same As: Robitussin AC) Start Date: 01/24/17 Stop Date: 01/31/17 Status: Discontinued Saline Flush 0.9% 10 mL, Route: IVP, Drug Form: INJ, Dosing Weight 50, kg, PRN, PRN Line Flush, St art date: 01/24/17 10:33:00 CDT, Duration: 30 day, Stop date: 02/23/17 10:32:00 CDT Notes: (Same as: BD Posiflush) Start Date: 01/24/17 Stop Date: 01/31/17 Status: Discontinued sodium bicarbonate 8.4% 50 mEq, 50 ml, Route: IVP, Drug Form: INJ, Dosing Weight 50, kg, ONCE, Start blake e: 01/24/17 15:06:00 CDT, Stop date: 01/24/17 15:06:00 CDT Notes: (sodium bicarb 8.4% (1 mEq/ml) 50 ml syringe) Start Date: 01/24/17 Stop Date: 01/24/17 Status: Completed thiamine 100 mg, 1 tab, Route: PO, Drug form: TAB, Daily, Dosing Weight 50, kg, Start blake e: 01/24/17 16:00:00 CDT, Duration: 30 day, Stop date: 02/23/17 9:00:00 CDT Notes: (Same As: Vitamin B1) Start Date: 01/24/17 Stop Date: 01/31/17 Status: Discontinued thiamine 100 mg oral tablet 100 mg = 1 tab, PO, Daily, # 30 tab, 1 Refill(s) Start Date: 01/31/17 Stop Date: 02/01/17 Status: Completed vancomycin + sodium chloride 0.9% INJ 250 mL 1,000 mg, Route: IVPB, ONCE, Dosing Weight 50, kg, Priority: STAT, Start date: 0 01/24/17 13:43:00 CDT, Stop date: 01/24/17 13:43:00 CDT Notes: TIME CRITICAL MEDICATION(Same As: Vancocin)Infusion rate< 1000 mg: infuse over 1 [id number] - 1500 mg: infuse over 1.5 [id number] - 2000 mg: infuse over 2 hours> 2001 mg: infuse over 2.5 hours MEDICATION WASTE Product Size: 1000 mgProduct Wasted: ___ mg Start Date: 01/24/17 Stop Date: 01/24/17 Status: Completed Zithromax + sodium chloride 0.9% INJ 250 mL 500 mg, Route: IVPB, [id number], Dosing Weight 50, kg, Start date: 01/24/17 16:00:0 0 CDT, Duration: 30 day, Stop date: 02/22/17 16:00:00 CDT Notes: (Same As: Zithromax IV) Start Date: 01/24/17 Stop Date: 01/31/17 Status: Discontinued Zofran 4 mg, Route: IVP, Drug form: INJ, ONCE, Dosing Weight 50, kg, Priority: STAT, St art date: 01/24/17 11:12:00 CDT, Stop date: 01/24/17 11:12:00 CDT Start Date: 01/24/17 Stop Date: 01/24/17 Status: Completed Zofran 4 mg, Route: IVP, Drug form: INJ, ONCE, Dosing Weight 50, kg, Priority: STAT, St art date: 01/24/17 13:03:00 CDT, Stop date: 01/24/17 13:03:00 CDT Start Date: 01/24/17 Stop Date: 01/24/17 Status: Completed Results ELECTROLYTES 1 2 3 Most recent to oldest [Reference Range]: 140 mEq/L (01/30/17 3:19 AM) 141 mEq/L (01/29/17 10:14 AM) 141 mEq/L (01/28/17 6:04 AM) Sodium Lvl [135-145 mEq/L] 4.0 mEq/L (01/30/17 3:19 AM) 4.3 mEq/L (01/29/17 10:14 AM) 4.0 mEq/L (01/28/17 6:04 AM) Potassium Lvl [3.5-5.1 mEq/L] 102 mEq/L (01/30/17 3:19 AM) 100 mEq/L (01/29/17 10:14 AM) 104 mEq/L (01/28/17 6:04 AM) Chloride Lvl [95-109 mEq/L] 34 mEq/L *HI* (01/30/17 3:19 AM) 35 mEq/L *HI* (01/29/17 10:14 AM) 32 mEq/L (01/28/17 6:04 AM) CO2 [24-32 mEq/L] 8.0 mEq/L *LOW* (01/30/17 3:19 AM) 10.3 mEq/L (01/29/17 10:14 AM) 9.0 mEq/L *LOW* (01/28/17 6:04 AM) AGAP [10.0-20.0 mEq/L] CHEM PANEL 1 2 3 Most recent to oldest [Reference Range]: 1.30 mg/dL (01/30/17 3:19 AM) 1.40 mg/dL (01/29/17 10:14 AM) 1.70 mg/dL *HI* (01/28/17 6:04 AM) Creatinine Lvl [0.50-1.40 mg/dL] 43 mL/min/1.73m2 1 *NA* (01/30/17 3:19 AM) 39 mL/min/1.73m2 2 *NA* (01/29/17 10:14 AM) 31 mL/min/1.73m2 3 *NA* (01/28/17 6:04 AM) eGFR 24 mg/dL *HI* (01/30/17 3:19 AM) 26 mg/dL *HI* (01/29/17 10:14 AM) 31 mg/dL *HI* (01/28/17 6:04 AM) BUN [7-22 mg/dL] 18 (01/24/17 10:47 AM) B/C Ratio [6-25] 109 mg/dL *HI* (01/30/17 3:19 AM) 98 mg/dL (01/29/17 10:14 AM) 71 mg/dL (01/28/17 6:04 AM) Glucose Lvl [70-99 mg/dL] 7.2 g/dL (01/24/17 10:47 AM) Total Protein [6.4-8.4 g/dL] 2.4 g/dL *LOW* (01/24/17 10:47 AM) Albumin Lvl [3.5-5.0 g/dL] 4.8 g/dL *HI* (01/24/17 10:47 AM) Globulin [2.7-4.2 g/dL] 0.5 *LOW* (01/24/17 10:47 AM) A/G Ratio [0.7-1.6] 8.1 mg/dL *LOW* (01/30/17 3:19 AM) 7.9 mg/dL *LOW* (01/29/17 10:14 AM) 8.2 mg/dL *LOW* (01/28/17 6:04 AM) Calcium Lvl [8.5-10.5 mg/dL] 4.8 mg/dL *HI* (01/24/17 10:47 AM) Phosphorus [2.5-4.5 mg/dL] 2.5 mg/dL *HI* (01/24/17 10:47 AM) Magnesium Lvl [1.8-2.4 mg/dL] 22 unit/L (01/24/17 10:47 AM) ALT [0-65 unit/L] 38 unit/L *HI* (01/24/17 10:47 AM) AST [0-37 unit/L] 124 unit/L (01/24/17 10:47 AM) Alk Phos [39-136 unit/L] 0.3 mg/dL (01/24/17 10:47 AM) Bili Total [0.2-1.3 mg/dL] 231 unit/L (01/24/17 10:47 AM) Lipase Lvl [73-393 unit/L] 0.44 mmol/L *HI* (01/24/17 10:47 AM) Ketone Quantitative [<=0.27 mmol/L] 1Result Comment: The eGFR is calculated using [...] 3 Most recent to oldest [Reference Range]: 194 unit/L *HI* (01/24/17 10:47 AM) Total CK [12-191 unit/L] 3.5 ng/mL (01/24/17 10:47 AM) CK MB [0.5-3.6 ng/mL] 1.8 (01/24/17 10:47 AM) CK MB Index [0.0-2.5] 0.15 ng/mL (01/24/17 10:47 AM) Troponin-I [0.00-0.40 ng/mL] 501 pg/mL *HI* (01/24/17 10:47 AM) BNP [<=100 pg/mL] URINE CHEM 1 2 3 Most recent to oldest [Reference Range]: 68.00 mg/dL *NA* (01/25/17 12:26 PM) U Creatinine 178.0 mg/dL *NA* (01/25/17 12:26 PM) U Protein 2.6 *NA* (01/25/17 12:26 PM) U Prot/Creat 57 mEq/L *NA* (01/25/17 12:26 PM) U Sodium None Seen (01/25/17 12:26 PM) U Eos [None Seen] URINE AND STOOL 1 2 3 Most recent to oldest [Reference Range]: Slight *ABN* (01/24/17 11:19 AM) UA Turbidity [Clear] Yellow *NA* (01/24/17 11:19 AM) UA Color [Yellow] 5.0 (01/24/17 11:19 AM) UA pH [5.0-8.0] 1.014 (01/24/17 11:19 AM) UA Spec Grav [<=1.030] 500 mg/dL *ABN* (01/24/17 11:19 AM) UA Glucose [Negative mg/dL] Small *ABN* (01/24/17 11:19 AM) UA Blood [Negative] Negative mg/dL *NA* (01/24/17 11:19 AM) UA Ketones [Negative mg/dL] >=300 mg/dL *ABN* (01/24/17 11:19 AM) UA Protein [Negative mg/dL] <=1.0 mg/dL *NA* (01/24/17 11:19 AM) UA Urobilinogen [0.1-1.0 mg/dL] Negative *NA* (01/24/17 11:19 AM) UA Bili [Negative] Negative (01/24/17 11:19 AM) UA Leuk Est [Negative] Negative (01/24/17 11:19 AM) UA Nitrite [Negative] 3 /HPF (01/24/17 11:19 AM) UA WBC [0-5 /HPF] 3 /HPF *HI* (01/24/17 11:19 AM) UA RBC [0-2 /HPF] Many /LPF *ABN* (01/24/17 11:19 AM) UA Sq Epi [Few /LPF] 18 /LPF *HI* (01/24/17 11:19 AM) UA Hyal Cast [0-2 /LPF] 1 /LPF *HI* (01/24/17 11:19 AM) UA Trans Epi [<=0 /LPF] HEMATOLOGY 1 2 3 Most recent to oldest [Reference Range]: 5.1 K/CMM (01/31/17 3:56 AM) 7.0 K/CMM (01/29/17 10:14 AM) 6.2 K/CMM (01/28/17 6:04 AM) WBC [3.7-10.4 K/CMM] 2.84 M/CMM *LOW* (01/31/17 3:56 AM) 2.93 M/CMM *LOW* (01/29/17 10:14 AM) 2.86 M/CMM *LOW* (01/28/17 6:04 AM) RBC [4.20-5.40 M/CMM] 8.2 g/dL *LOW* (01/31/17 3:56 AM) 8.5 g/dL *LOW* (01/29/17 10:14 AM) 8.5 g/dL *LOW* (01/28/17 6:04 AM) Hgb [12.0-16.0 g/dL] 25.0 % *LOW* (01/31/17 3:56 AM) 25.5 % *LOW* (01/29/17 10:14 AM) 25.0 % *LOW* (01/28/17 6:04 AM) Hct [36.0-48.0 %] 87.9 fL (01/31/17 3:56 AM) 87.0 fL (01/29/17 10:14 AM) 87.2 fL (01/28/17 6:04 AM) MCV [80.0-98.0 fL] 28.8 pg (01/31/17 3:56 AM) 29.2 pg (01/29/17 10:14 AM) 29.7 pg (01/28/17 6:04 AM) MCH [27.0-31.0 pg] 32.8 g/dL (01/31/17 3:56 AM) 33.6 g/dL (01/29/17 10:14 AM) 34.1 g/dL (01/28/17 6:04 AM) MCHC [32.0-36.0 g/dL] 13.9 % (01/31/17 3:56 AM) 13.6 % (01/29/17 10:14 AM) 14.1 % (01/28/17 6:04 AM) RDW [11.5-14.5 %] 155 K/CMM (01/31/17 3:56 AM) 169 K/CMM (01/29/17 10:14 AM) 171 K/CMM (01/28/17 6:04 AM) Platelet [133-450 K/CMM] 8.1 fL (01/31/17 3:56 AM) 8.0 fL (01/29/17 10:14 AM) 7.8 fL (01/28/17 6:04 AM) MPV [7.4-10.4 fL] 54.0 % (01/31/17 3:56 AM) 67.2 % (01/29/17 10:14 AM) 56.8 % (01/28/17 6:04 AM) Segs [45.0-75.0 %] 26.6 % (01/31/17 3:56 AM) 18.0 % *LOW* (01/29/17 10:14 AM) 26.9 % (01/28/17 6:04 AM) Lymphocytes [20.0-40.0 %] 10.6 % (01/31/17 3:56 AM) 7.5 % (01/29/17 10:14 AM) 8.1 % (01/28/17 6:04 AM) Monocytes [2.0-12.0 %] 8.3 % *HI* (01/31/17 3:56 AM) 7.0 % *HI* (01/29/17 10:14 AM) 7.9 % *HI* (01/28/17 6:04 AM) Eosinophils [0.0-4.0 %] 0.5 % (01/31/17 3:56 AM) 0.3 % (01/29/17 10:14 AM) 0.3 % (01/28/17 6:04 AM) Basophils [0.0-1.0 %] 2.8 K/CMM (01/31/17 3:56 AM) 4.7 K/CMM (01/29/17 10:14 AM) 3.5 K/CMM (01/28/17 6:04 AM) Segs-Bands # [1.5-8.1 K/CMM] 1.4 K/CMM (01/31/17 3:56 AM) 1.3 K/CMM (01/29/17 10:14 AM) 1.7 K/CMM (01/28/17 6:04 AM) Lymphocytes # [1.0-5.5 K/CMM] 0.5 K/CMM (01/31/17 3:56 AM) 0.5 K/CMM (01/29/17 10:14 AM) 0.5 K/CMM (01/28/17 6:04 AM) Monocytes # [0.0-0.8 K/CMM] 0.4 K/CMM (01/31/17 3:56 AM) 0.5 K/CMM (01/29/17 10:14 AM) 0.5 K/CMM (01/28/17 6:04 AM) Eosinophils # [0.0-0.5 K/CMM] 0.1 K/CMM (01/24/17 10:47 AM) Basophils # [0.0-0.2 K/CMM] 15.0 seconds *HI* (01/24/17 10:47 AM) PT [12.0-14.7 seconds] 1.16 (01/24/17 10:47 AM) INR [0.85-1.17] 25.3 seconds (01/24/17 10:47 AM) PTT [22.9-35.8 seconds] Immunizations Given and Recorded Vaccine Date Status Refusal Reason influenza virus vaccine, inactivated 01/16/17 G iven pneumococcal 13-valent vaccine 01/16/17 Given pneumococcal 23-valent vaccine 02/18/16 Given Procedures Procedure Date Related Diagnosis Body Site Abdominal hysterectomy CABG x 1 - Coronary artery bypass graft x 1 Cholecystectomy1 [facility] [address] Social History Social History Type Response Substance [...] to go home with f/u appointments OBJECTIVE VitalsTmp(F)Tmp(C)[id number] 01/31 11:[id number]-- ---- 01/31 10:05 126/[id number] 1.0L/m--- 01/31 09:00 105/[id number] 2 .0L/m--- 01/31 08:00 126/[id number]---- ----- 01/31 07:[id number] 3.0L/m--- 24 Hr Tmax: 99.0F (37.22c) at 01/31 00:0 0Vital Signs are the last 5 in the past 48 hours. 24 Hr Tmin: 98.3F (36.83c) at 01/31 07: 00Weights are the last 5 in 60 days, plus initial. DateWt(kg)Wt(lb)Ht(cm)Ht(in)MethodBMIBSA 01/24 (initial) 50.00 110.00Estimated 20 .81.47 73271.94 61.00Stated 24 Hr Point of Care Glucoses 01/31 1045Glucose ACC627 H 01/31 0605Glucose PCH650 H 01/31 0233Glucose MRD108 H Most Recent Scores: 01/31/17Glasgow Coma Score15 01/31/17Pain Intensity NRS (0-10)0 01/31/17Braden Score20 01/31/17[facility] (all previously charted lines have been discontinued) (no surgical procedures documented) Input/Output RecordInOutBal 01/3124hr Tot 0 0 0 4hr Tot 1051 [id number] Scheduled Meds: None Unscheduled Meds: None PRN Meds: None One Time Meds: None Continuous Infusions: None Labs (Last four charted values) WBC 5.1(JAN 31)7.0(JAN 29)6.2(JAN 28)5.7(JAN 27) Hgb L 8.2(JAN 31)L 8.5(JAN 29)L 8.5(JAN 28)L 7.9(JAN 27) Hct L 25.0(JAN 31)L 25.5(JAN 29)L 25.0(JAN 28)L 23.3(JAN 27) Plt 155(JAN 31)169(JAN 29)171(JAN 28)169(JAN 27) Na 140(JAN 30)141(JAN 29)141(JAN 28)143(JAN 27) K 4.0(JAN 30)4.3(JAN 29)4.0(JAN 28)4.2(JAN 27) CO2 H 34(JAN 30)H 35(JAN 29)32(JAN 28)29(JAN 27) Cl 102(JAN 30)100(JAN 29)104(JAN 28)105(JAN 27) Cr 1.30(JAN 30)1.40(JAN 29)H 1.70(JAN 28)H 1.90(JAN 27) BUN H 24(JAN 30)H 26(JAN 29)H 31(JAN 28)H 34(JAN 27) Glucose Random H 109(JAN 30)98(JAN 29)71(JAN 28)95(JAN 27) Mg H 2.5(JAN 24) Phos H 4.8(JAN 24) Ca L 8.1(JAN 30)L 7.9(JAN 29)L 8.2(JAN 28)L 7.6(JAN 27) PT H 15.0(JAN 24) INR 1.16(JAN 24) PTT 25.3(JAN 24) Troponin 0.15(JAN 24) CK MB 3.5(JAN 24) Total CK H 194(JAN 24)
[2020-06-17 13:13] LABS: ALBUMIN 3.9 g/dL (3.5-5.0); ANION GAP 18.7 mmol/L (8-16); CALCIUM 9.7 mg/dL (8.4-10.2); CREATININE, SERUM 3.93 mg/dL (0.57-1.11); POTASSIUM 3.7 mmol/L (3.5-5.1)
--- NOTE | 2020-06-17 13:13 | Diagnostic Imaging Report ---
TECHNIQUE: Frontal view of the chest. INDICATION: ^ams COMPARISON: None DISCUSSION: Limited evaluation due to portable technique. Lines and hardware: Left-sided HERO graft is noted with tip terminating at the mid to inferior right atrium. Coronary artery stents are noted. Midline sternotomy changes are noted. Heart and mediastinum: Cardiomediastinal silhouette is normal in size. Thoracic aorta is tortuous. Trachea projects midline. Lungs and pleura: No focal airspace consolidation. No pleural effusion. No pneumothorax. Soft tissues and bones: No acute abnormality. Surgical clips are identified in the right upper quadrant consistent with cholecystectomy change. IMPRESSION: Negative for acute intrathoracic process. Signed by: Rico Stokes MD on 06/17/2020 1:10 PM
[2020-06-17 13:15] LABS: BACTERIA,URINE MANY /HPF; EPITHELIAL CELLS,URINE RARE /LPF; RBC,URINE 0-5 /HPF (0-5); WBC,URINE (MAN) 21-50 /HPF (0-5)
[2020-06-17] MEDS ORDERED: LORAZEPAM INJ 2 MG/ML VIAL IV ONE (13:15)
--- NOTE | 2020-06-17 14:03 | Diagnostic Imaging Report ---
EXAMINATION: Head CT HISTORY: 70-year-old female with altered mental status COMPARISON: Head CT 06/14/2020 TECHNIQUE: Helical axial images of the head were obtained. Reformatted coronal and sagittal images from the axial data. Dose modulation, iterative reconstruction, and/or weight based adjustment of the mA/kV was utilized to reduce the radiation dose to as low as reasonably achievable. FINDINGS: Parenchyma: 1. Persistent mild white matter chronic microvascular ischemic changes. 2. No mass or hemorrhage. No CT evidence of acute territorial vascular insult. Extra-axial spaces:No abnormal density. No extra-axial fluid collections Brain volume: Mild generalized volume loss. Ventricles: No hydrocephalus or displacement. Arteries: No density suggestive of thrombus. Dural sinuses: No abnormal density. Foramen magnum: No mass, Chiari malformation, or basilar invagination. Sella: No obvious mass. Paranasal/mastoid sinuses: Imaged portions unremarkable. Skull/Scalp: No lytic or blastic lesions. No fractures. IMPRESSION: 1. No acute intracranial abnormalities. 2. Mild chronic microvascular ischemic changes, unchanged from head CT of 06/14/2020. Signed by: Dr. Sugar Epps M.D. on 06/17/2020 1:59 PM
[2020-06-17] MEDS ORDERED: SODIUM CHLORIDE FLUSH 10 ML SYR INJ PRN (14:30)
--- OUTSIDE RECORDS SUMMARY | 2020-06-17 14:43 | XMS REPORT | Continuity of Care Document ---
Author Author Jun [employer] MARY Perry 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 Unavailable Un available Problems Problem Status Onset Date Classification Date Reported Comments Source AMS Active 0 05/31/2020 [facility] STROKE LIKE SYMPTOMS Active 05/31/2020 [facility] ALTERED MENTAL STATUS Active 05/31/2020 [facility] BACK PAIN Active 05/23/2020 [facility] BRAIN TIA, ENCEPHALOPATHY Acti ve 05/23/2020 [facility] R06.02 SHORTNESS OF BREATH Act zaria 01/15/2020 [facility] Headache 01/01/2020 [facility] DIZZINESS Active 12/30/2019 [facility] End stage renal disease 12/11/2019 12/13/2019 [facility] Diarrhea, unspecified 12/11/2019 12/13/2019 [facility] Pneumonia, unspecified organism 12/11/2019 12/13/2019 [facility] Urinary tract infection, site not specified 12/11/2019 12/13/2019 [facility] Generalized abdominal pain 12/11/2019 12/13/2019 [facility] ABDOMINAL PAIN Active 12/11/2019 [facility] HEADACHE Active 12/05/2019 [facility] UTI, SEVERE SEPSIS Active 11/21/2019 [facility] Unspecified fall, initial encounter 10/27/2019 10/29/2019 [facility] Unspecified fracture of sacrum, initial encounter for closed fracture 10/27/2019 10/29/2019 [facility] Wedge compression fracture of first lumb ar vertebra, initial encounter for closed fracture 10/27/2019 10/29/2019 [facility] FALL Active 10/26/2019 [facility] Anxiety disorder, unspecified 09/03/2019 09/05/2019 [facility] ANXIETY Active 09/03/2019 [facility] Pain in unspecified hip 07/13/2019 07/15/2019 [facility] FALL INJURY/ SOB Active 07/13/2019 [facility] B18.2 CHRONIC VIRAL HEPATITIS C, Z68.23 Active 06/20/2019 [facility] SOB Active 0 04/03/2019 [facility] AMS, UNSPECIFIED Active 04/03/2019 [facility] CELLULITIS, HYPERKALEMIA Active 02/28/2019 [facility] WEAKNESS Active 02/12/2019 [facility] Sepsis, unspecified organism 12/07/2018 05/26/2019 [facility] BACTERIAL PNEUMONIA Active 11/01/2018 [facility] Unspecified injury of head, initial encounter 10/02/2018 04/21/2019 [facility] Contusion of other part of head, initial encounter 10/02/2018 04/21/2019 [facility] Orthostatic hypotension 08/15/2018 02/23/2019 [facility] WEAK/DIZZY Active 07/28/2018 [facility] FALL, SYNCOPE Active 07/28/2018 [facility] Z12.31 - ENCNTR SCREEN MAMMOGRAM FOR MA Active 07/16/2018 [facility] [place] BILATERAL PLEURAL EFFUSION, CKD (CHRONIC Active 04/28/2018 [facility] I25.10 Active 04/12/2018 [facility] CAD Active 0 04/02/2018 [facility] [place] CHEST PAIN Active 02/28/2018 [facility] DEBILITY Active 02/28/2018 [facility] HYPERKALEMIA Active 02/14/2018 [facility] DIZZY Active 02/14/2018 [facility] CP Active [facility] ACUTE CHF Active 02/08/2018 [facility] Chest pain, unspecified 01/24/2017 02/03/2017 [facility] Hyperglycemia, unspecified 01/24/2017 02/03/2017 [facility] Shortness of breath 01/24/2017 02/03/2017 [facility] HIGH GLUCOSE Active 01/24/2017 [facility] CP IN ADULT, HYPERGLYCEMIA, SOB Active 01/24/2017 [facility] ACUTE KIDNEY INJURY, DEHYDRATION, FEVER Active 01/15/2017 [facility] SYNCOPE Active 02/17/2016 [facility] PANCREATITIS Active 02/17/2016 [facility] Discharge Diagnosis: Back pain 07/19/2014 07/21/2014 [facility] Discharge Diagnosis: Muscle spasm 07/19/2014 07/21/2014 [facility] Discharge Diagnosis: Depression 07/19/2014 07/21/2014 [facility] Discharge Diagnosis: Diabetes mellitus 07/19/2014 07/21/2014 [facility] POSS HYPOGLYCEMIA Active 07/18/2014 [facility] 070.44 CHRONIC HEPATITIS C Act zaria 04/23/2014 [facility] 571.5 CARDIAC CIRRHOSIS Active 11/19/2013 [facility] Alzheimer's disease (disorder) Active Problem 09/2020 [facility] [place] [facility] Calculus in biliary tract (disorder) Resolved Problem 09/2020 [facility], [facility] [place],[facility] Coronary arteriosclerosis (disorder) Active Problem 09/2020 [facility], [place] Diabetes mellitus (disorder) R esolved Problem 09/2020 [facility], [facility] [place],[facility] Escherichia coli (organism) Ac tive Problem 09/2020 Problem added by Discern Expert. [facility] Viral hepatitis C (disorder) A ctive Problem 09/2020 [facility], [facility] [place],[facility] Hypertensive disorder, systemic arterial (disorder) Active Problem 06/09/2020 [facility] Hypervolemia (disorder) Active Problem 06/09/2020 [facility], [place] Kidney disease (disorder) Acti ve Problem 09/2020 [facility], [place] Myocardial infarction (disorder) Resolved Problem 09/2020 [facility], [facility] [place],[facility] Occult blood in stools (disorder) Active Problem 09/2020 [facility], [place] Cerebrovascular accident (disorder) Resolved Problem 09/2020 [facility], [facility] [place],[facility] Other malaise 04/04/2018 [facility] Acute tubular necrosis (disorder) Resolved Problem 09/2020 [facility], [place] Chronic kidney disease stage 4 (disorder) Active Problem 02/23/2019 [facility] Chronic diastolic (congestive) heart failure 02/23/2019 [facility] Hypertensive heart and chronic kidney di sease with heart failure and with stage 5 chronic kidney disease, or end stage renal disease 02/23/2019 [facility] Unspecified viral hepatitis C without hepatic coma 05/26/2019 [facility] Unspecified Escherichia coli [E. coli] a s the cause of diseases classified elsewhere 02/23/2019 [facility] Anemia in chronic kidney disease 02/23/2019 [facility] Hypokalemia 02/23/2019 [facility] Hyperlipidemia, unspecified 04/21/2019 [facility] Type 2 diabetes mellitus with diabetic c hronic kidney disease 05/26/2019 [facility] Dementia in other diseases classified el sewhere without behavioral disturbance 05/26/2019 [facility] Alzheimer's disease, unspecified 05/26/2019 [facility] Atherosclerotic heart disease of kaibab coronary artery without angina pectoris 05/26/2019 [facility] Unspecified cirrhosis of liver 02/23/2019 [facility] History of falling 02/23/2019 [facility] Dependence on renal dialysis 05/26/2019 [facility] 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 04/21/2019 [facility] Presence of aortocoronary bypass graft 05/26/2019 [facility] 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 cs/antiplatelets 04/21/2019 [facility] Personal history of transient ischemic a ttack (TIA), and cerebral infarction without residual deficits 05/26/2019 [facility] Cervicalgia 04/21/2019 [facility] Fall (on) (from) unspecified stairs and steps, initial encounter 05/26/2019 [facility] Hypertensive chronic kidney disease with stage 5 chronic kidney disease or end stage renal disease 05/26/2019 [facility] Old myocardial infarction 05/26/2019 [facility] (current) use of aspirin 04/21/2019 [facility] 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 04/21/2019 [facility] Acquired absence of both cervix and uterus 05/26/2019 [facility] Acquired absence of other specified part s of digestive tract 04/21/2019 [facility] Pleural effusion, not elsewhere classified 05/08/2018 [facility] Unspecified bacterial pneumonia 05/26/2019 [facility] Anemia in other chronic diseases classified elsewhere 05/26/2019 [facility] ACUTE PANCREATITIS, UNSPECIFIED Active [facility] ACUTE KIDNEY FAILURE, UNSPECIFIED Active [facility] CHEST PAIN, UNSPECIFIED Active [facility] HYPERGLYCEMIA, UNSPECIFIED Act zaria [facility] HEART FAILURE, UNSPECIFIED Act zaria [facility] HYPERKALEMIA Active [facility] OTHER MALAISE Active [facility] PLEURAL EFFUSION, NOT ELSEWHERE CLASSIFI Active [facility] CHRONIC KIDNEY DISEASE, UNSPECIFIED Active [facility] TYPE 2 DIABETES MELLITUS WITH HYPOGLYCEM Active [facility] UNSPECIFIED FALL, INITIAL ENCOUNTER Active [facility] SYNCOPE AND COLLAPSE Active [facility] UNSPECIFIED BACTERIAL PNEUMONIA Active [facility] CELLULITIS, UNSPECIFIED Active [facility] CHRONIC VIRAL HEPATITIS C Acti ve [facility] BODY MASS INDEX (BMI) 23.0-23.9, ADULT Active [facility] URINARY TRACT INFECTION, SITE NOT SPECIF Active [facility] TRANSIENT CEREBRAL ISCHEMIC ATTACK, UNSPECIFIED Active [facility] TRANSIENT CEREBRAL ISCHEMIC ATTACK, UNSP Active [facility] ENCEPHALOPATHY, UNSPECIFIED Ac tive [facility] ALTERED MENTAL STATUS, UNSPECIFIED Active [facility] Medications Medication Details Route Status Patient Instructions Ordering Provider Order Date Source atorvastatin 20 mg oral tablet 20 mg = 1 tab, PO, Bedtime, # 30 tab, 1 Refill(s), Pharmacy: [facility] #[id number], 157.48, cm, 05/31/20 7:16:00 CDT, Height, 50, kg, 05/31/20 7:16:00 CDT, Weight Active 06/07/2020 [facility] metoprolol tartrate 25 mg oral tablet 12.5 mg = 0.5 tab, PO, BID, # 30 tab, 1 Refill(s), Pharmacy: [facility] #[id number], 157.48, cm, 05/31/20 7:16:00 CDT, Height, 50, kg, 05/31/20 7:16:00 CDT, Weight Active 06/07/2020 [facility] Insulin Lispro KwikPen 100 units/mL injectable solutio n See Instructions, Give 3 unit SUB-Q TID-Before Meals 15 minutes before or immediately after a meal if blood glucose is greater than 200, # 3 mL, 0 Refill(s), Pharmacy: [facility] #[id number], 157.48, cm, 05/31/20 7:16:00 CDT, Height, 50, kg, 08... Active 06/07/2020 [facility] 12 HR ranolazine 500 MG Extended Release Tablet 500 mg = 1 tab, PO, Daily, # 30 tab, 0 Refill(s), Pharmacy: [facility] #[id number], 157.48, cm, 05/31/20 7:16:00 CDT, Height, 50, kg, 05/31/20 7:16:00 CDT, Weight Active 06/07/2020 [facility] Famotidine 20 MG Oral Tablet 2 0 mg = 1 tab, PO, BID, # 60 tab, 1 Refill(s), Pharmacy: [facility] #[id number], 157.48, cm, 05/31/20 7:16:00 CDT, Height, 50, kg, 05/31/20 7:16:00 CDT, Weight Active 06/07/2020 [facility] metoprolol tartrate Notes: (Sa me as: Lopressor) No Longer Active 06/05/2020 [facility] Labetalol 20 mg, Route: IVP, D rug form: INJ, ONCE, Dosing Weight 50, kg, Priority: STAT, Start date: 06/04/20 14:37:00 CDT, Stop date: 06/04/20 14:37:00 CDT Inactive 06/04/2020 [facility] Nitroglycerin 0.4 MG Sublingual Tablet 0.4 mg, 0, Route: SL, Drug form: TAB, ONCE, Dosing Weight 50, kg, PRN Chest Pain, Start date: 06/04/20 14:37:00 CDT Inactive 06/04/2020 [facility] Lovenox Notes: (Same as: Loven ox) No Longer Active 06/03/2020 [facility] Ativan Notes: (Same as: Ativan) Inactive 06/02/2020 [facility] Jus Notes: Reconstitute wit h 1.2 ml of sterile water. Final concentration = 20 mg/1ml. Maximum 40 mg/24 hours (Same As: Jus). Hazardous Drug Group 3:Reproductive risk Hazardous Drug -- Refer to safe handling procedure PPE Matrix MEDICATION WASTE Product Size: 20 mg Product Wasted: ___ mg No Longer Active 06/01/2020 [facility] atorvastatin Notes: (Same as: Lipitor) No Longer Active 06/01/2020 [facility] Dextrose 50% Syringe (D50W) 12 .5 gm, 25 mL, Route: IVP, Drug Form: INJ, Dosing Weight 50, kg, PRN, PRN Blood Glucose Results, Start date: 05/31/20 14:48:00 CDT, Duration: 30 day, Stop date: 06/30/20 14:47:00 CDT, 0 No Longer Active 05/31/2020 [facility] Glucagon 1 mg, Route: IM, Drug form: PDR/INJ, PRN, Dosing Weight 50, kg, PRN Blood Glucose Results, Start date: 05/31/20 14:48:00 CDT, Duration: 30 day, Stop date: 06/30/20 14:47:00 CDT, 0 No Longer Active 05/31/2020 [facility] Insulin Lispro Notes: (Same as : Humalog) Roll in palms of hands gently; Do not shake vigorously. WASTE: F/P - Black; E - [employer] Trash Bin Stable for 28 days at room temperature. Expires in days from Date No Longer Active 05/31/2020 [facility] clopidogrel Notes: (Same As: P lavix) No Longer Active 05/31/2020 [facility] Dextrose 50% Syringe (D50W) 12 .5 gm, 25 mL, Route: IVP, Drug Form: INJ, Dosing Weight 50, kg, PRN, PRN Blood Glucose Results, Start date: 05/31/20 11:11:00 CDT, Duration: 30 day, Stop date: 06/30/20 11:10:00 CDT, 0 Inactive 05/31/2020 [facility] Glucagon 1 mg, Route: IM, Drug form: PDR/INJ, PRN, Dosing Weight 50, kg, PRN Blood Glucose Results, Start date: 05/31/20 11:11:00 CDT, Duration: 30 day, Stop date: 06/30/20 11:10:00 CDT, 0 Inactive 05/31/2020 [facility] Ondansetron Notes: (Same as: Tino robbins) MEDICATION WASTE Product Size: 4 mg Product Wasted: ___ mg No Longer Active 05/31/2020 [facility] Acetaminophen Notes: Do not ex ceed 4 gm/day. (Same as: Tylenol) No Longer Active 05/31/2020 [facility] Saline Flush 0.9% Notes: (Same as: BD Posiflush) No Longer Active 05/31/2020 [facility] Saline Flush 0.9% Notes: (Same as: BD Posiflush) Active 05/24/2020 [facility] Aspirin Notes: Take with food. Inactive 05/24/2020 [facility] Zofran ODT 4 mg, Route: PO, Dr ug form: TABDIS, ONCE, Dosing Weight 53.636, kg, Priority: STAT, Start date: 05/23/20 15:18:00 CDT, Stop date: 05/23/20 15:18:00 CDT Inactive 05/23/2020 [facility] Tylenol 975 mg, Route: PO, Patel g form: TAB, ONCE, Dosing Weight 53.636, kg, Priority: STAT, Start date: 05/23/20 15:17:00 CDT, Stop date: 05/23/20 15:17:00 CDT Inactive 05/23/2020 [facility] Compazine Notes: (Same as: Com pazine) Inactive 12/30/2019 [facility] Benadryl 12.5 mg, Route: IVP, ONCE, Dosing Weight 58.182, kg, Priority: STAT, Start date: 12/30/19 12:51:00 [employer], Stop date: 12/30/19 12:51:00 [employer] Inactive 12/30/2019 [facility] Dexamethasone 10 mg, Route: IV P, ONCE, Dosing Weight 58.182, kg, Priority: STAT, Start date: 12/30/19 12:51:00 [employer], Stop date: 12/30/19 12:51:00 [employer] Inactive 12/30/2019 [facility] Saline Flush 0.9% Notes: (Same as: BD Posiflush) Inactive 12/30/2019 [facility] Cephalexin 500 MG Oral Capsule [Keflex] 500 mg = 1 cap, PO, Daily, Take in the evening after dialysis at the same time every day., X 7 day, # 7 cap, 0 Refill(s) Active 12/12/2019 [facility] fluconazole 100 mg oral tablet 100 mg = 1 tab, PO, Daily, X 10 day, # 10 tab, 0 Refill(s), [id number] Active 11/26/2019 [facility] propranolol 10 mg oral tablet 10 mg = 1 tab, PO, Q12H, # 60 tab, 0 Refill(s), Pharmacy: [facility] #[id number] Active 11/26/2019 [facility] pantoprazole 40 MG Enteric Coated Tablet [Protonix] 40 mg = 1 tab, PO, BID, # 60 tab, 0 Refill(s), [id number] Active 11/26/2019 [facility] Cephalexin 250 MG Oral Capsule [Keflex] 250 mg = 1 cap, PO, BID, X 10 day, # 20 cap, 0 Refill(s), Pharmacy: [facility] #[id number] Active 11/26/2019 [facility] Rocephin + sterile water 10 mL Notes: (Same As: Rocephin). Use with 100 mL NS and infuse over 30 min MEDICATION WASTE Product Size: 1000 mg Product Wasted: ___ mg Inactive 11/26/2019 [facility] Propranolol Notes: Give with f ood. (Same as: Inderal) No Longer Active 11/26/2019 [facility] Diflucan Notes: (Same as: Difl ucan) Do not refrigerate No Longer Active 11/25/2019 [facility] Sodium Chloride 0.9% IV 1,000 mL 1,000 mL, Rate: 75 ml/hr, Infuse over: 13.3 hr, Route: IV, Dosing Weight 53.5 kg, Total Volume: 1,000, Start date: 11/25/19 10:58:00 [employer], Duration: 1 day, Stop date: 11/26/19 10:57:00 [employer], 1.52, m2, 0 Inactive 11/25/2019 [facility] Insulin Lispro Notes: (Same as : Humalog) Roll in palms of hands gently; Do not shake vigorously. WASTE: F/P - Black; E - Municipal Trash Bin Stable for 28 days at room temperature. Expires in days from Date No Longer Active 11/25/2019 [facility] Keflex Notes: Take on empty st omach. (Same As: Keflex) No Longer Active 11/24/2019 [facility] Norvasc Notes: (Same as: Norva sc) Inactive 11/24/2019 [facility] Protonix Notes: Tablet should not be chewed or crushed. (Same as: Protonix) No Longer Active 11/24/2019 [facility] Al hydroxide/Mg hydroxide/simethicone Notes: (aluminum hydroxide-magnesium hyd-simethicone [phone]/5ml 30 ml ud MERRY) Inactive 11/23/2019 [facility] Xylocaine Viscous 2% mucous membrane solution Notes: (Same as: Xylocaine) Inactive 11/23/2019 [facility] Cephalexin 500 MG Oral Capsule [Keflex] 500 mg = 1 cap, PO, BID, X 7 day, # 14 cap, 0 Refill(s), Pharmacy: [facility] #[id number] No Longer Active 11/23/2019 [facility] Protonix Notes: Tablet should not be chewed or crushed. (Same as: Protonix) Inactive 11/23/2019 [facility] GI cocktail (aluminum hydroxide/magnesiu m hydroxide/lidocaine/simethicone) 45 ml, Route: PO, Drug Form: SUSP, Dosin g Weight 53.5, kg, ONCE, Routine, Start date: 11/23/19 12:28:00 [employer], Stop date: 11/23/19 12:28:00 [employer] Inactive 11/23/2019 [facility] Imodium A-D Notes: (Same as: I modium) MAX adult dose is 8 caps/day Inactive 11/23/2019 [facility] atorvastatin Notes: (Same as: Lipitor) No Longer Active 11/23/2019 [facility] Famotidine 20 MG Oral Tablet N otes: (Same as: Pepcid) No Longer Active 11/23/2019 [facility] gabapentin 100 MG Oral Capsule Notes: (Same as: Neurontin) No Longer Active 11/23/2019 [facility] Omnipaque 300 injectable solution Notes: (Same as:Omnipaque 300). WASTE: F/P - Black; E - [employer] Trash Bin For oral use only No Longer Active 11/22/2019 [facility] Amlodipine 10 mg, 1 tab, Route : PO, Drug form: TAB, Daily, Dosing Weight 53.5, kg, Start date: 11/22/19 9:00:00 [employer], Duration: 30 day, Stop date: 12/21/19 9:00:00 [employer] Inactive 11/22/2019 [facility] clopidogrel 75 mg, 1 tab, Rout e: PO, Drug form: TAB, BID, Dosing Weight 53.5, kg, Start date: 11/22/19 9:00:00 [employer], Duration: 30 day, Stop date: 12/21/19 17:00:00 [employer] Inactive 11/22/2019 [facility] metoprolol tartrate 12.5 mg, R oute: PO, Drug form: TAB, Q12H, Dosing Weight 53.5, kg, Start date: 11/22/19 9:00:00 [employer], Duration: 30 day, Stop date: 12/21/19 21:00:00 [employer] Inactive 11/22/2019 [facility] Aspirin 81 MG Enteric Coated Tablet Notes: Do not crush or chew. (Same As: Ecotrin) No Longer Active 11/22/2019 [facility] heparin sodium, porcine 2500 UNT/ML Injectable Solutio n Notes: porcine heparin No Longer Active 11/22/2019 [facility] heparin sodium, porcine 2500 UNT/ML Injectable Solutio n Notes: porcine heparin Inactiv e 11/21/2019 [facility] clopidogrel 75 mg oral tablet 75 mg = 1 tab, PO, BID, # 90 tab, 3 Refill(s) No Longer Active 11/21/2019 [facility] furosemide 80 mg oral tablet 8 0 mg = 1 tab, PO, BID, # 90 tab, 3 Refill(s) Active 11/21/2019 [facility] Insulin Glargine 100 UNT/ML Injectable Solution 10 unit, SUB-Q, Bedtime, # 10 mL, 0 Refill(s) Active 11/21/2019 [facility] Ceftriaxone Notes: (Same As: Sabi altman). Use with 100 mL NS and infuse over 30 min MEDICATION WASTE Product Size: 1000 mg Product Wasted: ___ mg No Longer Active 11/21/2019 [facility] Dextrose 50% Syringe (D50W) 12 .5 gm, 25 mL, Route: IVP, Drug Form: INJ, Dosing Weight 59.091, kg, PRN, PRN Blood Glucose Results, Start date: 11/21/19 14:48:00 [employer], Duration: 30 day, Stop date: 12/21/19 14:47:00 [employer], 0 No Longer Active 11/21/2019 [facility] Glucagon 1 mg, Route: IM, Drug form: PDR/INJ, PRN, Dosing Weight 59.091, kg, PRN Blood Glucose Results, Start date: 11/21/19 14:48:00 [employer], Duration: 30 day, Stop date: 12/21/19 14:47:00 [employer], 0 No Longer Active 11/21/2019 [facility] Insulin Lispro Notes: (Same as : Humalog) Roll in palms of hands gently; Do not shake vigorously. WASTE: F/P - Black; E - Municipal Trash Bin Stable for 28 days at room temperature. Expires in days from Date No Longer Active 11/21/2019 [facility] Lovenox 40 mg, Route: SUB-Q, D rug form: INJ, [id number], Dosing Weight 59.091, kg, Start date: 11/21/19 13:00:00 [employer], Duration: 30 day, Stop date: 12/20/19 13:00:00 [employer] Inactive 11/21/2019 [facility] Dextrose 50% Syringe (D50W) 12 .5 gm, 25 mL, Route: IVP, Drug Form: INJ, Dosing Weight 59.091, kg, PRN, PRN Blood Glucose Results, Start date: 11/21/19 12:44:00 [employer], Duration: 30 day, Stop date: 12/21/19 12:43:00 [employer], 0 No Longer Active 11/21/2019 [facility] Glucagon 1 mg, Route: IM, Drug form: PDR/INJ, PRN, Dosing Weight 59.091, kg, PRN Blood Glucose Results, Start date: 11/21/19 12:44:00 [employer], Duration: 30 day, Stop date: 12/21/19 12:43:00 [employer]ANGING, 0 No Longer Active 11/21/2019 [facility] Ondansetron Notes: (Same as: Tino robbins) MEDICATION WASTE Product Size: 4 mg Product Wasted: ___ mg No Longer Active 11/21/2019 [facility] Acetaminophen Notes: Do not ex ceed 4 gm/day. (Same as: Tylenol) No Longer Active 11/21/2019 [facility] Tylenol Notes: Max acetaminoph en = 4000 mg/day (4 gm/day). (Same as: Tylenol) Inactive 11/21/2019 [facility] cefepime 2 gm, Route: IVPB, ON CE, Dosing Weight 59.091, kg, Priority: STAT, Start date: 11/21/19 10:07:00 [employer], Stop date: 11/21/19 10:07:00 [employer], ABX Indication: ED - Suspected Sepsis Inactive 11/21/2019 [facility] Tylenol 975 mg, Route: MT, Patel g form: SUPP, ONCE, Dosing Weight 59.091, kg, Priority: STAT, Start date: 11/21/19 10:06:00 [employer], Stop date: 11/21/19 10:06:00 [employer] Inactive 11/21/2019 [facility] Acetaminophen 300 MG / Codeine Phosphate 30 MG Oral Tablet [Tylenol with Codeine #3] 1 tab, PO, Q6H, PRN Pain, X 7 day, # 28 tab, 0 Refill(s) Active 10/27/2019 [facility] Acetaminophen 325 MG / Hydrocodone Norma trate 5 MG Oral Tablet 1 tab, Route: PO, Drug Form: TAB, Dosing Weight 57.727, kg, ONCE, STAT, Start date: 10/27/19 0:46:00 [employer], Stop date: 10/27/19 0:46:00 [employer] Inactive 10/27/2019 [facility] Acetaminophen 325 MG / Hydrocodone Norma trate 5 MG Oral Tablet 1 tab, Route: PO, Drug Form: TAB, Dosing Weight 57.727, kg, ONCE, STAT, Start date: 10/26/19 23:13:00 [employer], Stop date: 10/26/19 23:13:00 [employer] Inactive 10/27/2019 [facility] tizanidine Notes: (Same As: Za naflex) No Longer Active 10/27/2019 [facility] Trazodone Notes: (Same As: Edison yrel) Inactive 09/03/2019 [facility] Acetaminophen 300 MG / Codeine Phosphate 30 MG Oral Tablet [Tylenol with Codeine #3] 1 tab, PO, Q6H, PRN Pain, X 3 day, # 5 t ab, 0 Refill(s) Active 07/14/2019 [facility] Acetaminophen 650 mg, Route: P O, Drug form: TAB, ONCE, Dosing Weight 58.636, kg, Priority: STAT, Start date: 07/13/19 14:58:00 CDT, Stop date: 07/13/19 14:58:00 CDT Inactive 07/13/2019 [facility] Ibuprofen 400 MG Oral Tablet 4 00 mg, 1 tab, Route: PO, ONCE, Dosing Weight 58.636, kg, Start date: 07/13/19 14:58:00 CDT, Stop date: 07/13/19 14:58:00 CDT Inactive 07/13/2019 [facility] Docusate Notes: (Same as: Cola ce) (Do Not Crush) Inactive 04/04/2019 [facility] heparin 5,000 unit, Route: SUB -Q, Q8H, Dosing Weight 63.636, kg, Start date: 04/04/19 8:00:00 CDT, Duration: 30 day, Stop date: 05/04/19 0:00:00 CDT Inactive 04/04/2019 [facility] Dextrose 50% Syringe 25 gm, 50 mL, Route: IVP, Drug Form: INJ, Dosing Weight 63.636, kg, PRN, PRN Blood Glucose Results, Start date: 04/03/19 19:12:00 CDT, Duration: 30 day, Stop date: 05/03/19 19:11:00 CDT No Longer Active 04/04/2019 [facility] Glucagon 1 mg, Route: IM, Drug form: PDR/INJ, PRN, Dosing Weight 63.636, kg, PRN Blood Glucose Results, Start date: 04/03/19 19:12:00 CDT, Duration: 30 day, Stop date: 05/03/19 19:11:00 CDT No Longer Active 04/04/2019 [facility] Ondansetron Notes: (Same as: Tino robbins) MEDICATION WASTE Product Size: 4 mg Product Wasted: ___ mg No Longer Active 04/04/2019 [facility] Acetaminophen Notes: Do not ex ceed 4 gm/day. (Same as: Tylenol) No Longer Active 04/04/2019 [facility] Gentamicin Notes: TIME CRITICA L MEDICATION (Same as Garamycin) For adult patients only: Round to nearest 10 mg per Medical Staff approval Inactive 04/03/2019 [facility] Vancomycin 2001 mg: infuse ov er 2.5 hours For adult patients only: Round to nearest 250 mg per Medical Staff approval MEDICATION WASTE Product Size: 1000 mg Product Wasted: ___ mg Inactive 04/03/2019 [facility] Aspirin 324 mg, Route: CHEW, D rug form: CHEWTAB, ONCE, Dosing Weight 63.636, kg, Priority: STAT, Start date: 04/03/19 14:54:00 CDT, Stop date: 04/03/19 14:54:00 CDT Inactive 04/03/2019 [facility] Saline Flush 0.9% Notes: (Same as: BD Posiflush) No Longer Active 04/03/2019 [facility] Saline Flush 0.9% Notes: prese rvative free. No Longer Active 03/06/2019 [facility] Saline Flush 0.9% Notes: prese rvative free. No Longer Active 03/05/2019 [facility] Aspirin 81 MG Enteric Coated Tablet Notes: Do not crush or chew. (Same As: Ecotrin) No Longer Active 03/05/2019 [facility] insulin, isophane Notes: (Same as: Humulin N) Roll in palms of hands gently; Do not shake vigorously. WASTE: F/P - Black; E - Municipal Trash Bin Stable for 31 days at room temperature Expires in days from Date N o Longer Active 03/04/2019 [facility] Cefazolin Notes: (Same As: Daniel Hope) MEDICATION WASTE Product Size: 1000 mg Product Wasted: ___ mg No Longer Active 03/04/2019 [facility] heparin Notes: porcine heparin No Longer Active 03/04/2019 [facility] ceFAZolin + sterile water 10 mL Notes: (Same As: Daniel Salas) MEDICATION WASTE Product Size: 1000 mg Product Wasted: ___ mg Inactive 03/03/2019 [facility] Tylenol Notes: Do not exceed 4 gm/day. (Same as: Tylenol) No Longer Active 03/03/2019 [facility] Aspirin 81 MG Enteric Coated Tablet Notes: Do not crush or chew. (Same As: Ecotrin) No Longer Active 03/02/2019 [facility] Amlodipine Notes: (Same as: No rvasc) No Longer Active 03/02/2019 [facility] metoprolol extended release No ariane: (Same as: Toprol XL) Do Not Crush No Longer Active 03/02/2019 [facility] atorvastatin Notes: (Same as: Lipitor) No Longer Active 03/02/2019 [facility] vancomycin + Sodium Chloride 0.9% IV 100 mL Notes: TIME CRITICAL MEDICATION (Same As: Vancocin) For adult patients only: Round to nearest 250 mg per Medical Staff approval No Longer Active 03/01/2019 [facility] Vancomycin 1 ea, Route: MISC, ONCALL, Dosing Weight 55.636, kg, Start date: 03/01/19 15:00:00 CDT, Duration: 28 day, Stop date: 03/29/19 14:59:00 CDT, Pharmacy to dose, ABX Indication: Bacteremia Inactive 03/01/2019 [facility] Cefazolin Notes: (Same As: Daniel Hope) MEDICATION WASTE Product Size: 1000 mg Product Wasted: ___ mg No Longer Active 03/01/2019 [facility] Famotidine 20 MG Oral Tablet 2 0 mg = 1 tab, PO, Bedtime, 0 Refill(s) Active 03/01/2019 [facility] Acetaminophen 300 MG / Codeine Phosphate 30 MG Oral Tablet [Tylenol with Codeine #3] 1 tab, PO, Q6H, PRN Pain Score 6-10, 0 R efill(s) Active 03/01/2019 [facility] Furosemide 80 mg, BID, 0 Refil l(s) No Longer Active 03/01/2019 [facility] Insulin Glargine 100 UNT/ML Injectable S olution [Lantus] 20 unit, SUB-Q, Bedtime, # 10 mL, 3 Refill(s) Active 03/01/2019 [facility] metoprolol 25 mg oral tablet, extended release See Instructions, 1/2 tab po BID with food, 0 Refill(s) Active 03/01/2019 [facility] 3 ML NPH Insulin, Human 70 UNT/ML / Regu lar Insulin, Human 30 UNT/ML Prefilled Syringe [Humulin 70/30] SUB-Q, TID-Before Meals, per sliding scale, 0 Refill(s) No Longer Active 03/01/2019 [facility] Insulin Lispro Notes: (Same as : Humalog) Roll in palms of hands gently; Do not shake vigorously. WASTE: F/P - Black; E - Municipal Trash Bin Stable for 28 days at room temperature. Expires in days from Date No Longer Active 03/01/2019 [facility] Dextrose 50% Syringe 12.5 gm, 25 mL, Route: IVP, Drug Form: INJ, Dosing Weight 55.636, kg, PRN, PRN Blood Glucose Results, Start date: 03/01/19 1:47:00 CDT, Duration: 30 day, Stop date: 03/31/19 1:46:00 CDT No Longer Active 03/01/2019 [facility] Glucagon 1 mg, Route: IM, Drug form: PDR/INJ, PRN, Dosing Weight 55.636, kg, PRN Blood Glucose Results, Start date: 03/01/19 1:47:00 CDT, Duration: 30 day, Stop date: 03/31/19 1:46:00 CDT No Longer Active 03/01/2019 [facility] Vancomycin 1 ea, Route: MISC, ONCALL, Dosing Weight 56.818, kg, Start date: 02/28/19 21:00:00 CDT, Duration: 5 day, Stop date: 03/05/19 20:59:00 CDT, Pharmacy to dose, ABX Indication: Skin/Soft Tissue Infection Inactive 03/01/2019 [facility] Hydralazine Notes: (Same as: A presoline) Push over 5 minutes No Longer Active 03/01/2019 [facility] Acetaminophen 325 MG / Hydrocodone Norma trate 5 MG Oral Tablet [Sturgis 5/325] Notes: (Same as: St[place]is 325/5) Do not ex ceed 4gm/day of acetaminophen. No Longer Activ e 03/01/2019 [facility] Morphine Notes: (Same as:MORPh ine Sulfate) No Longer Active 03/01/2019 [facility] Dextrose 50% Syringe 25 gm, 50 mL, Route: IVP, Drug Form: INJ, Dosing Weight 56.818, kg, PRN, PRN Blood Glucose Results, Start date: 02/28/19 20:01:00 CDT, Duration: 30 day, Stop date: 03/30/19 20:00:00 CDT No Longer Active 03/01/2019 [facility] Ondansetron Notes: (Same as: Tnio robbins) MEDICATION WASTE Product Size: 4 mg Product Wasted: ___ mg No Longer Active 03/01/2019 [facility] Glucagon 1 mg, Route: IM, Drug form: PDR/INJ, PRN, Dosing Weight 56.818, kg, PRN Blood Glucose Results, Start date: 02/28/19 20:01:00 CDT, Duration: 30 day, Stop date: 03/30/19 20:00:00 CDT No Longer Active 03/01/2019 [facility] Albuterol 0.83 MG/ML Inhalant Solution Notes: SEE RT DOCUMENTATION (Same as: Proventil) Inactive 02/28/2019 [facility] Kayexalate Notes: (sodium poly styrene sulfonate 15 gm/60 ml MERRY) Shake well before use. (Same as: Kayexalate, SPS) Inactive 02/28/2019 [facility] Insulin regular Notes: (Same a s: Humulin R, NovoLIN R) Roll in palms of hands gently; Do not shake vigorously. WASTE: F/P - Black; E - Municipal Trash Bin Stable for 31 days at room temperature Expi res in days from Date Inactive 02/28/2019 [facility] Lasix Notes: (Same as: Lasix) MEDICATION WASTE Product Size: 40 mg Product Wasted: ___ mg Inactive 02/28/2019 [facility] Zosyn Notes: (Same as: Zosyn) Dosing based on Piperacillin component MEDICATION WASTE Product Size: 3375 mg Product Wasted: ___ mg Inactive 02/28/2019 [facility] Vancomycin 2001 mg: infuse ov er 2.5 hours For adult patients only: Round to nearest 250 mg per Medical Staff approval MEDICATION WASTE Product Size: 1000 mg Product Wasted: ___ mg Inactive 02/28/2019 [facility] Fentanyl Notes: (Same as: Subl imaze) Preservative free. Inactive 02/28/2019 [facility] Sodium Chloride 0.9% (Bolus) IV 500 mL, 500 ml/hr, Infuse Over: 1 hr, Route: IV, 500, Drug form: INJ, ONCE, Priority: STAT, Dosing Weight 56.818 kg, Start date: 02/28/19 13:06:00 CDT, Stop date: 02/28/19 13:06:00 CDT Inactive 02/28/2019 [facility] Saline Flush 0.9% Notes: Same as: BD Posiflush Sterile No Longer Active 02/28/2019 [facility] Acetaminophen Notes: Do not ex ceed 4 gm/day. (Same as: Tylenol) Inactive 02/28/2019 [facility] Vantin 200 mg oral tablet 200 mg = 1 tab, PO, Q24H, X 5 day, # 5 tab, 0 Refill(s) No Longer Active 11/06/2018 [facility] heparin sodium, porcine 2500 UNT/ML Injectable Solutio n Notes: porcine heparin No Longer Active 11/06/2018 [facility] Epogen Notes: (Same as: Procri t) epoetin kathy 2000 unit/1 ml VL For dialysis use only (Epogen) WASTE: F/P - Red; E -Red MEDICATION WASTE Product Size: 2000 mg Product Wasted: ___ mg No Longer Active 11/05/2018 [facility] Merrem Notes: Same as Merrem MEDICATION WASTE Product Size: 500 mg Product Wasted: ___ mg No Longer Active 11/05/2018 [facility] gabapentin 100 MG Oral Capsule Notes: (Same as: Neurontin) No Longer Active 11/04/2018 [facility] Escitalopram Notes: (Same as: Lexapro) No Longer Active 11/04/2018 [facility] clopidogrel Notes: (Same As: P lavix) No Longer Active 11/04/2018 [facility] Insulin Lispro Route: SUB-Q, D rug form: SOLN, TID-Before Meals, Dosing Weight 51.818, kg, 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 (Same as: Protonix) N o Longer Active 11/04/2018 [facility] atorvastatin Notes: (Same as: Lipitor) No Longer Active 11/04/2018 [facility] Lopressor Notes: (Same as: Lop ressor) No Longer Active 11/04/2018 [facility] Furosemide Notes: (Same as: Tavia damon) MEDICATION WASTE Product Size: 40 mg Product Wasted: ___ mg No Longer Active 11/03/2018 [facility] Aspirin 81 MG Enteric Coated Tablet Notes: Do not crush or chew. (Same As: Ecotrin) No Longer Active 11/03/2018 [facility] gabapentin 100 MG Oral Capsule 100 mg = 1 cap, PO, Bedtime, 0 Refill(s) Active 11/03/2018 [facility] metoprolol tartrate 25 mg oral tablet 25 mg = 1 tab, PO, BID, 0 Refill(s) No Longer Active 11/03/2018 [facility] Albuterol 0.83 MG/ML Inhalant Solution Notes: SEE RT DOCUMENTATION (Same as: Proventil) No Longer Active 11/03/2018 [facility] morphine 0.5 mg/mL preservative-free inj ectable solution 2 mg, 1 mL, Route: IVP, Drug form: SOLN, Q3H, Dosing Weight 51.818, kg, PRN Pain Score 6-10, Start date: 11/02/18 18:13:00 [employer], Duration: 30 day, Stop date: 12/02/18 18:12:00 [employer] No Longe r Active 11/03/2018 [facility] Insulin Lispro Notes: (Same as : Humalog ) Roll in palms of hands gently; Do not shake `vigorously. "Single Patient Use Only " WASTE: F/P - Black; E - Municipal Trash Bin Stable for 28 days at room temp erature. Expires in days from Date No Longer Active 11/02/2018 [facility] Glucagon 1 mg, Route: IM, Drug form: PDR/INJ, PRN, Dosing Weight 51.818, kg, PRN Blood Glucose Results, Start date: 11/02/18 14:59:00 [employer], Duration: 30 day, Stop date: 12/02/18 14:58:00 [employer] No Longer Active 11/02/2018 [facility] Dextrose 50% Syringe 25 gm, 50 mL, Route: IVP, Drug Form: INJ, Dosing Weight 51.818, kg, PRN, PRN Blood Glucose Results, Start date: 11/02/18 14:59:00 [employer], Duration: 30 day, Stop date: 12/02/18 14:58:00 [employer] No Longer Active 11/02/2018 [facility] Acetaminophen 325 MG / Hydrocodone Norma trate 5 MG Oral Tablet [St[place]is 5/325] Notes: (Same as: [place]is 325/5) Do not ex ceed 4gm/day of acetaminophen. No Longer Activ e 11/02/2018 [facility] Azithromycin Notes: (Same As: Zithromax IV) No Longer Active 11/02/2018 [facility] Ceftriaxone Notes: (Same As: Sabi altman). Use with 100 mL NS and infuse over 30 min MEDICATION WASTE Product Size: 1000 mg Product Wasted: ___ mg No Longer Active 11/02/2018 [facility] Ondansetron Notes: (Same as: Tino robbins) MEDICATION WASTE Product Size: 4 mg Product Wasted: ___ mg No Longer Active 11/02/2018 [facility] Guaifenesin Notes: (Same as: Sabi obitussin) No Longer Active 11/02/2018 [facility] Acetaminophen 325 MG / Hydrocodone Norma trate 10 MG Oral Tablet [[place]is 10/325] 1 tab, Route: PO, Drug Form: TAB, Dosing Weight 58.182, kg, ONCE, STAT, Start date: 11/01/18 22:47:00 [employer], Stop date: 11/01/18 22:47:00 [employer] Inactive 11/02/2018 [facility] Levaquin Notes: (Same as:Levaq uin) Inactive 11/02/2018 [facility] Zofran 4 mg, Route: IVP, Drug form: INJ, ONCE, Dosing Weight 58.182, kg, Priority: STAT, Start date: 11/01/18 21:07:00 [employer] HANGING, Stop date: 11/01/18 21:07:00 [employer] Inactive 11/02/2018 [facility] Morphine 4 mg, Route: IVP, ONC E, Dosing Weight 58.182, kg, Priority: STAT, Start date: 11/01/18 21:06:00 [employer] HANGING, Stop date: 11/01/18 21:06:00 [employer] Inactive 11/02/2018 [facility] cefdinir 300 MG Oral Capsule [Omnicef] 300 mg = 1 cap, PO, Q48H, please take on HD days after HD treatment, X 14 day, # 7 cap, 0 Refill(s), Pharmacy: [facility] [id number] No Longer Active 08/06/2018 [facility] Epogen Notes: (Same as: Procri t) epoetin kathy 2000 unit/1 ml VL For dialysis use only (Epogen) WASTE: F/P - Red; E -Red MEDICATION WASTE Product Size: 2000 mg Product Wasted: ___ mg No Longer Active 08/03/2018 [facility] Potassium Chloride 40 mEq, Rou te: PO, Drug form: ERTAB, ONCE, Dosing Weight 52.002, kg, Start date: 08/03/18 16:00:00 CDT, Stop date: 08/03/18 16:00:00 CDT Inactive 08/03/2018 [facility] Potassium Chloride Notes: ([facility] as: K-Dur 20) "Do Not Crush" For patients unable to swallow tablet, dissolve in one half glass of water. Allow about 2 minutes for the tablets to disintegrate. Stir before giving to prepare slurry and administer. Please exclude Patients with feeding tube less than 14 Welsh (Dobhoff, J-tube etc) and pediatric and patients. With food and full glass of water Inactive 08/03/2018 [facility] Fludrocortisone Notes: (Same a s: Florinef Acetate) Give with food. No Longer Active 08/02/2018 [facility] Rocephin + sterile water 10 mL Notes: (Same As: Rocephin). Use with 100 mL NS and infuse over 30 min MEDICATION WASTE Product Size: 1000 mg Product Wasted: ___ mg No Longer Active 07/31/2018 [facility] Epogen Notes: (Same as: Procri t) epoetin kathy 2000 unit/1 ml VL For dialysis use only (Epogen) WASTE: F/P - Red; E -Red MEDICATION WASTE Product Size: 2000 mg Product Wasted: ___ mg No Longer Active 07/30/2018 [facility] Epoetin Kathy Notes: (Same as: Procrit) epoetin kathy 3000 unit/1 ml VL. For dialysis use only WASTE: F/P - Red; E -Red MEDICATION WASTE Product Size: 3000 unit Product Wasted: ___ unit Inactive 07/30/2018 [facility] atorvastatin Notes: (Same as: Lipitor) No Longer Active 07/30/2018 [facility] Potassium Chloride Notes: ([facility] as: K-Dur 20) "Do Not Crush" For patients unable to swallow tablet, dissolve in one half glass of water. Allow about 2 minutes for the tablets to disintegrate. Stir before giving to prepare slurry and administer. Please exclude Patients with feeding tube less than 14 Welsh (Dobhoff, J-tube etc) and pediatric and patients. With food and full glass of water Inactive 07/29/2018 [facility] heparin Notes: porcine heparin No Longer Active 07/29/2018 [facility] Sulfasalazine Notes: (Same As: Azulfidine) No Longer Active 07/29/2018 [facility] Promethazine Notes: (Same as: Phenergan) No Longer Active 07/29/2018 [facility] pantoprazole Notes: Tablet viola uld not be chewed or crushed. (Same as: Protonix) N o Longer Active 07/29/2018 [facility] metoprolol tartrate Notes: (Sa me as: Lopressor) No Longer Active 07/29/2018 [facility] Furosemide Notes: (Same as: La six) May cause GI upset. Give with food or milk. No Longer Active 07/29/2018 [facility] Escitalopram Notes: (Same as: Lexapro) No Longer Active 07/29/2018 [facility] clopidogrel Notes: (Same As: P lavix) No Longer Active 07/29/2018 [facility] Amlodipine Notes: (Same as: No rvasc) No Longer Active 07/29/2018 [facility] Aspirin 81 MG Enteric Coated Tablet Notes: Do not crush or chew. (Same As: Ecotrin) No Longer Active 07/29/2018 [facility] Insulin Lispro Notes: (Same as : Humalog ) Roll in palms of hands gently; Do not shake `vigorously. "Single Patient Use Only " WASTE: F/P - Black; E - Municipal Trash Bin Stable for 28 days at room temp erature. Expires in days from Date No Longer Active 07/29/2018 [facility] Glucagon 1 mg, Route: IM, Drug form: PDR/INJ, PRN, Dosing Weight 58.182, kg, PRN Blood Glucose Results, Start date: 07/29/18 5:55:00 CDT, Duration: 30 day, Stop date: 08/28/18 5:54:00 CDT No Longer Active 07/29/2018 [facility] Dextrose 50% Syringe 12.5 gm, 25 mL, Route: IVP, Drug Form: INJ, Dosing Weight 58.182, kg, PRN, PRN Blood Glucose Results, Start date: 07/29/18 5:55:00 CDT, Duration: 30 day, Stop date: 08/28/18 5:54:00 CDT No Longer Active 07/29/2018 [facility] Promethazine Hydrochloride 25 MG Oral Tablet 25 mg = 1 tab, PO, BID, 0 Refill(s) Active 07/29/2018 [facility] Streptococcus pneumoniae serotype 1 caps ular antigen diphtheria [id number] protein conjugate vaccine / Streptococcus pneumoniae serotype 14 capsular antigen diphtheria [id number] protein conjugate vaccine / Streptococcus pneumoniae serotype 18C capsular antigen d 0.5 mL, Route: IM, ONCALL, Start date: 07/29/18 0:45:39 CDT, Stop date: 08/28/18 0:40:39 CDT Inactive 07/29/2018 [facility] Acetaminophen Notes: Do not ex ceed 4 gm/day. (Same as: Tylenol) No Longer Active 07/29/2018 [facility] Ondansetron Notes: (Same as: Tino robbins) MEDICATION WASTE Product Size: 4 mg Product Wasted: ___ mg No Longer Active 07/29/2018 [facility] NS (Bolus) IV 500 mL, 500 ml/h r, Infuse Over: 1 hr, Route: IV, 500, Drug form: INJ, ONCE, Priority: STAT, Dosing Weight 58.1 kg, Start date: 07/28/18 21:02:00 CDT, Stop date: 07/28/18 21:02:00 CDT Inactive 07/29/2018 [facility] Insulin Lispro 100 UNT/ML Injectable Solution Blood Sugar Control, SUB-Q, TID-Before Meals, Check blood sugar before breakfast, lunch, and dinner, and inject correction doses: Inject 1 unit if Sugar 150-199, Inject 2 units if Sugar 200-249, Inject 3 units if Sugar 250-299, Inject 4 units if Sugar... Active 05/05/2018 [facility] epoetin kathy 3000 units/mL preservative- free injectable solution 3,000 unit = 1 mL, SUB-Q, Q-Sa, 0 Refill(s) Active 05/05/2018 [facility] metoprolol tartrate 50 mg oral tablet 50 mg = 1 tab, PO, BID, # 60 tab, 1 Refill(s) Active 05/05/2018 [facility] Epogen Notes: (Same as: Procri t) epoetin kathy 3000 unit/1 ml VL. For dialysis use only WASTE: F/P - Red; E -Red MEDICATION WASTE Product Size: 3000 unit Product Wasted: ___ unit No Longer Active 05/04/2018 [facility] Epogen Notes: (Same as: Procri t) epoetin kathy 3000 unit/1 ml VL. For dialysis use only WASTE: F/P - Red; E -Red MEDICATION WASTE Product Size: 3000 unit Product Wasted: ___ unit Inactive 05/03/2018 [facility] Hydralazine Notes: (Same as: A presoline) Push over 5 minutes Inactive 05/02/2018 [facility] Bumex Notes: (Same As: Bumex) No Longer Active 05/01/2018 [facility] Amlodipine Notes: (Same as: No rvasc) No Longer Active 04/30/2018 [facility] Aspirin 81 MG Enteric Coated Tablet 81 mg, 1 tab, Route: PO, Drug form: ECTAB, Daily, Dosing Weight 58.1, kg, Start date: 04/30/18 9:00:00 CDT, Duration: 30 day, Stop date: 05/29/18 9:00:00 CDT No Longer Active 04/30/2018 [facility] clopidogrel Notes: (Same As: P lavix) No Longer Active 04/30/2018 [facility] Escitalopram Notes: (Same as: Lexapro) No Longer Active 04/30/2018 [facility] Lasix Notes: (Same as: Lasix) MEDICATION WASTE Product Size: 40 mg Product Wasted: ___ mg Inactive 04/30/2018 [facility] atorvastatin Notes: (Same as: Lipitor) No Longer Active 04/30/2018 [facility] metoprolol tartrate Notes: (Sa me as: Lopressor) No Longer Active 04/30/2018 [facility] Morphine Notes: (Same as:MORPh ine Sulfate) Inactive 04/29/2018 [facility] Heparin 30 unit/kg Bolus (Heparin Dosing Weight) Route: IVP, PRN, 1,500 unit, 1.5 mL, Drug form: INJ, PRN, Heparin Protocol, Start date: 04/29/18 18:06:00 CDT Stop date: 05/29/18 18:05:00 CDT, 30 day No Longer Active 04/29/2018 [facility] Heparin 60 unit/kg Bolus (Heparin Dosing Weight) Route: IVP, PRN, 3,000 unit, 3 mL, Drug form: INJ, PRN, Heparin Protocol, Start date: 04/29/18 18:06:00 CDT Stop date: 05/29/18 18:05:00 CDT, 30 day No Longer Active 04/29/2018 [facility] heparin additive 25,000 unit [12 unit/kg /hr] + Premix Diluent Dextrose 5% 500 mL 500 mL, Rate: 12.12 ml/hr, Infuse over: 41.3 hr, Route: IV, Dosing Weight 50.5 kg, Total Volume: 500 mL, Start date: 04/29/18 18:06:00 CDT, Duration: 30 day, Stop date: 05/29/18 18:05:00 CDT, 1.48, m2 No Longer Active 04/29/2018 [facility] Morphine 2 mg, Route: IVP, ONC E, Dosing Weight 58.1, kg, Start date: 04/29/18 17:57:00 CDT, Stop date: 04/29/18 17:57:00 CDT Inactive 04/29/2018 [facility] Nitroglycerin 0.4 MG Sublingual Tablet Notes: (Same as:Nitroquick, Nitrostat) "Do Not Crush" Sublingual tablet No Longer Active 04/29/2018 [facility] Morphine Notes: (Same as:MORPh ine Sulfate) No Longer Active 04/29/2018 [facility] Sulfasalazine Notes: (Same As: Azulfidine) No Longer Active 04/29/2018 [facility] pantoprazole Notes: Tablet viola uld not be chewed or crushed. (Same as: Protonix) N o Longer Active 04/29/2018 [facility] Lasix Notes: (Same as: Lasix) MEDICATION WASTE Product Size: 40 mg Product Wasted: ___ mg Inactive 04/29/2018 [facility] Saline Flush 0.9% Notes: (Same as: BD Posiflush) No Longer Active 04/29/2018 [facility] Aspirin 81 MG Enteric Coated Tablet Notes: Do not crush or chew. (Same As: Ecotrin) No Longer Active 04/29/2018 [facility] heparin Notes: porcine heparin Inactive 04/29/2018 [facility] Insulin regular See Instructio ns, SUB-Q TID-Before Meals, 0 Refill(s) Active 04/29/2018 [facility] Insulin Glargine 100 UNT/ML Injectable S olution [Lantus] 20 unit, SUB-Q, Bedtime, # 10 mL, 3 Refill(s) No Longer Active 04/29/2018 [facility] NIFEdipine 60 mg oral tablet, extended release Notes: (Same as: Adalat CC, Procardia XL) Give on empty stomach. Take 1 hour before or 2 hours after meal; "Avoid grapefruit and grapefruit juice". Do not crush Inactive 04/29/2018 [facility] Furosemide 80 mg, BID, 0 Refil l(s) Active 04/29/2018 [facility] Dextrose 50% Syringe 25 gm, 50 mL, Route: IVP, Drug Form: INJ, Dosing Weight 58.1, kg, ONCE, Start date: 04/29/18 0:27:00 CDT, Stop date: 04/29/18 0:27:00 CDT Inactive 04/29/2018 [facility] Nitroglycerin 0.02 MG/MG Topical Ointment Notes: 1 gram is approximately 1 inch of nitroglycerin ointment (20 mg NTG per gram) (Same as:Nitro-Bid) Inactive 04/29/2018 [facility] Albuterol 0.833 MG/ML / Ipratropium Brom sha 0.167 MG/ML Inhalant Solution [DuoNeb] Notes: (Same as: Duoneb) No Longer Active 04/29/2018 [facility] Insulin Lispro Notes: (Same as : Humalog ) Roll in palms of hands gently; Do not shake `vigorously. "Single Patient Use Only " WASTE: F/P - Black; E - Melon Power Trash Bin Stable for 28 days at room temp erature. Expires in days from Date No Longer Active 04/29/2018 [facility] Glucagon 1 mg, Route: IM, Drug form: PDR/INJ, PRN, Dosing Weight 58.1, kg, PRN Blood Glucose Results, Start date: 04/28/18 23:47:00 CDT, Duration: 30 day, Stop date: 05/28/18 23:46:00 CDT No Longer Active 04/29/2018 [facility] Dextrose 50% Syringe 25 gm, 50 mL, Route: IVP, Drug Form: INJ, Dosing Weight 58.1, kg, PRN, PRN Blood Glucose Results, Start date: 04/28/18 23:47:00 CDT, Duration: 30 day, Stop date: 05/28/18 23:46:00 CDT No Longer Active 04/29/2018 [facility] Morphine Notes: (Same as:MORPh ine Sulfate) No Longer Active 04/29/2018 [facility] Saline Flush 0.9% Notes: (Same as: BD Posiflush) No Longer Active 04/29/2018 [facility] Nitroglycerin Notes: (Same as: Nitroquick, Nitrostat) "Do Not Crush" Sublingual tablet No Longer Active 04/29/2018 [facility] Ondansetron Notes: (Same as: Z ofran) No Longer Active 04/29/2018 [facility] Nitroglycerin Notes: (Same as: Nitroquick, Nitrostat) "Do Not Crush" Sublingual tablet No Longer Active 04/29/2018 [facility] Zofran ODT Notes: (Same as: Zo josé miguel ODT) Inactive 04/29/2018 [facility] Morphine Notes: Preservative f ree. (Same as: Morphine Sulfate-PF) Inactive 04/29/2018 [facility] GI cocktail Notes: [place] = antacid with simethicone 22.5 mL - lidocaine viscous 7.5 mL Inactive 04/29/2018 [facility] Lasix Notes: (Same as: Lasix) MEDICATION WASTE Product Size: 40 mg Product Wasted: ___ mg Inactive 04/29/2018 [facility] Aspirin Notes: Take with food. Inactive 04/29/2018 [facility] Saline Flush 0.9% Notes: Same as: BD Posiflush Sterile Inactive 04/28/2018 [facility] pantoprazole 40 mg oral enteric coated tablet 40 mg = 1 tab, PO, Daily, # 30 tab, 0 Refill(s) Active 04/01/2018 [facility] atorvastatin 40 mg oral tablet 40 mg = 1 tab, PO, Bedtime, # 30 tab, 0 Refill(s) Active 04/01/2018 [facility] Aspirin 81 MG Enteric Coated Tablet 81 mg = 1 tab, PO, Daily, # 30 tab, 0 Refill(s) Active 04/01/2018 [facility] clopidogrel 75 mg oral tablet 75 mg = 1 tab, PO, Daily, # 30 tab, 0 Refill(s) Active 04/01/2018 [facility] amLODIPine 10 mg oral tablet 1 0 mg = 1 tab, PO, Daily, # 30 tab, 0 Refill(s) Active 04/01/2018 [facility] sulfaSALAzine 500 mg oral tablet 500 mg = 1 tab, PO, BID, # 60 tab, 0 Refill(s) Active 04/01/2018 [facility] metoprolol tartrate 25 mg oral tablet 25 mg = 1 tab, PO, Q12H, # 60 tab, 0 Refill(s) Active 04/01/2018 [facility] escitalopram 10 mg oral tablet 10 mg = 1 tab, PO, Daily, # 30 tab, 0 Refill(s) Active 04/01/2018 [facility] Physical Therapy See Instructi ons, MISC, ONCALL, Evaluate and Treat 2-3 times per week for 4-6 weeks, # 1 ea, 0 Refill(s) Active 04/01/2018 [facility] Occupational Therapy See Instr uctions, MISC, ONCALL, Evaluate and Treat 2-3 times per week for 4-6 weeks, # 1 unit, 0 Refill(s) Active 04/01/2018 [facility] Amlodipine Notes: (Same as: No rvasc) Inactive 04/01/2018 [facility] Norvasc Notes: (Same as: Norva sc) No Longer Active 03/30/2018 [facility] Insulin Glargine 100 UNT/ML Injectable Solution Notes: (Same as: Lantus) Do not hold insulin without contacting prescriber WASTE: F/P - Black; E - Municipal Trash Bin "single patient use only" No Longer Active 03/29/2018 [facility] heparin Notes: porcine heparin No Longer Active 03/28/2018 [facility] Acetaminophen 325 MG / Hydrocodone Norma trate 10 MG Oral Tablet [[place] 10/325] Notes: Do not exceed 4gm/day of acetamin ophen. (Same as: [place] 325/10) No Longer Active 03/27/2018 [facility] Acetaminophen 325 MG / Hydrocodone Norma trate 5 MG Oral Tablet [[place] 5/325] Notes: (Same as: [place] 325/5) Do not ex ceed 4gm/day of acetaminophen. No Longer Activ e 03/27/2018 [facility] Insulin Glargine 100 UNT/ML Injectable Solution Notes: (Same as: Lantus) Do not hold insulin without contacting prescriber WASTE: F/P - Black; E - Municipal Trash Bin "single patient use only" No Longer Active 03/27/2018 [facility] Acetaminophen 325 MG / Hydrocodone Norma trate 5 MG Oral Tablet [[place] 5/325] Notes: (Same as: [place] 325/5) Do not ex ceed 4gm/day of acetaminophen. No Longer Activ e 03/27/2018 [facility] Insulin Glargine 100 UNT/ML Injectable Solution 10 unit, Route: SUB-Q, Drug form: SOLN, BID, Dosing Weight 56.818, kg, Start date: 03/26/18 17:00:00 CDT, Duration: 30 day, Stop date: 04/25/18 9:00:00 CDT Inactive 03/26/2018 [facility] Epogen (ESRD) Notes: (Same as: Procrit) epoetin kathy 29232 unit/1 ml VL. For dialysis use only. (Procrit) WASTE: F/P - Red; E -Red MEDICATION WASTE Product Size: 74918 unit Product Wasted: ___ unit No Longer Active 03/23/2018 [facility] Insulin Glargine 100 UNT/ML Injectable Solution Notes: (Same as: Lantus) Do not hold insulin without contacting prescriber WASTE: F/P - Black; E - Municipal Trash Bin "single patient use only" No Longer Active 03/23/2018 [facility] Sulfasalazine Notes: (Same As: Azulfidine) No Longer Active 03/22/2018 [facility] Lexapro Notes: (Same as: Lexap ro) No Longer Active 03/22/2018 [facility] Protonix Notes: Tablet should not be chewed or crushed. (Same as: Protonix) No Longer Active 03/22/2018 [facility] aspirin 81 mg tablet, enteric coated Notes: Do not crush or chew. (Same As: Ecotrin) No Longer Active 03/22/2018 [facility] Escitalopram 10 mg, Route: PO, Drug form: TAB, Daily, Dosing Weight 56.818, kg, Start date: 03/22/18 9:00:00 CDT, Duration: 30 day, Stop date: 04/20/18 9:00:00 CDT No Longer Active 03/22/2018 [facility] Insulin Glargine 100 UNT/ML Injectable Solution Notes: (Same as: Lantus) Do not hold insulin without contacting prescriber WASTE: F/P - Black; E - Municipal Trash Bin "single patient use only" Inactive 03/22/2018 [facility] Compression Stockings 1 ea, Ro kay: TOP, Dosing Weight 61.7, kg, Daily, Start date: 03/22/18 9:00:00 CDT No Longer Active 03/22/2018 [facility] Plavix Notes: (Same As: Plavix) No Longer Active 03/22/2018 [facility] please give midodrine before dialysis on dialysis days please give midodrine before dialysis on dialysis days, reminder, Drug form: MISC, Route: MISC, Daily, 03/22/18 6:00:00 CDT, Duration: 30 day, Stop date: 04/20/18 6:00:00 CDT No Longer Active 03/22/2018 [facility] Lipitor Notes: (Same as: Lipit or) No Longer Active 03/22/2018 [facility] Lopressor Notes: (Same as: Lop ressor) No Longer Active 03/22/2018 [facility] Lisinopril Notes: (Same as: Pr inivil, Zestril) No Longer Active 03/22/2018 [facility] nitroglycerin 0.4 mg sublingual tablet Notes: (Same as:Nitroquick, Nitrostat) "Do Not Crush" Sublingual tablet No Longer Active 03/21/2018 [facility] Reglan Notes: (Same as: Reglan ) Take 30 min before meals No Longer Active 03/21/2018 [facility] melatonin Notes: (Same as: Priti atonin) No Longer Active 03/21/2018 [facility] Humalog Notes: (Same as: Humal og ) Roll in palms of hands gently; Do not shake `vigorously. "Single Patient Use Only " WASTE: F/P - Black; E - Municipal Trash Bin Stable for 28 days at room temperature. Expires in days from Date No Longer Active 03/21/2018 [facility] Humalog Notes: (Same as: Humal og ) Roll in palms of hands gently; Do not shake `vigorously. "Single Patient Use Only " WASTE: F/P - Black; E - Municipal Trash Bin Stable for 28 days at room temperature. Expires in days from Date No Longer Active 03/21/2018 [facility] Humalog Notes: (Same as: Humal og ) Roll in palms of hands gently; Do not shake `vigorously. "Single Patient Use Only " WASTE: F/P - Black; E - Municipal Trash Bin Stable for 28 days at room temperature. Expires in days from Date No Longer Active 03/21/2018 [facility] glucagon 1 mg, Route: IM, Drug form: PDR/INJ, PRN, Dosing Weight 68.6, kg, PRN Blood Glucose Results, Start date: 03/21/18 16:09:00 CDT, Duration: 30 day, Stop date: 04/20/18 16:08:00 CDT No Longer Active 03/21/2018 [facility] Dextrose 50% Syringe 25 gm, 50 mL, Route: IVP, Drug Form: INJ, Dosing Weight 68.6, kg, PRN, PRN Blood Glucose Results, Start date: 03/21/18 16:09:00 CDT, Duration: 30 day, Stop date: 04/20/18 16:08:00 CDT No Longer Active 03/21/2018 [facility] Tylenol Notes: Do not exceed 4 gm/day. (Same as: Tylenol) No Longer Active 03/21/2018 [facility] ProAmatine Notes: (Same as:Pro amatine) No Longer Active 03/21/2018 [facility] Trazodone Notes: (Same As: Edison yrel) No Longer Active 03/21/2018 [facility] midodrine 5 mg oral tablet 10 mg = 2 tab, PO, Before Dialysis, PRN Other -See Comment | before dialysis, 0 Refill(s) On Hold 03/21/2018 [facility] Sodium Chloride 0.9% (titrate) 250 mL 250 mL, Rate: To prime line and flush remaining blood products., Dosing Weight 68.6, kg, Route: IV, Total Volume: 250, Priority: Routine, Start Date: 03/20/18 10:11:00 CDT, Duration: 1 day, Stop date: 03/21/18 10:10:00 CDT, Replace Every: 24 hr No Longer Active 03/20/2018 [facility] Epogen 10,000 unit, Route: IVP , Q-M-W-F, Dosing Weight 68.6, kg, Start date: 03/20/18 9:00:00 CDT, Duration: 30 day, Stop date: 04/17/18 9:00:00 CDT No Longer Active 03/20/2018 [facility] Acetaminophen 325 MG / Hydrocodone Norma trate 5 MG Oral Tablet Notes: (Same as: [place] 325/5) Do not ex ceed 4gm/day of acetaminophen. No Longer Active 03/19/2018 [facility] Hydromorphone Notes: (Same as: Dilaudid) No Longer Active 03/19/2018 [facility] Acetaminophen 325 MG / Hydrocodone Norma trate 10 MG Oral Tablet Notes: Do not exceed 4gm/day of acetamin ophen. (Same as: [place] 325/10) No Longer Active 03/19/2018 [facility] Sodium Chloride 0.9% (Bolus) IV 500 mL, Route: IV, ONCE, Dosing Weight 68.6 kg, Start date: 03/19/18 14:39:00 CDT, Stop date: 03/19/18 14:39:00 CDT, Bolus Inactive 03/19/2018 [facility] metoclopramide (ANES) Route: I V, Drug form: INJ, ONCE, Stop date: 03/19/18 13:54:00 CDT Inactive 03/19/2018 [facility] lidocaine (ANES) Route: IV, Dr ug form: INJ, ONCE, Stop date: 03/19/18 13:49:00 CDT Inactive 03/19/2018 [facility] propofol (ANES) Route: IV, Patel g form: INJ, ONCE, Stop date: 03/19/18 13:49:00 CDT Inactive 03/19/2018 [facility] ceFAZolin (ANES) 1000 mg Route : IV, Drug form: INJ, Start date: 03/19/18 13:19:00 CDT, Stop date: 03/19/18 14:19:00 CDT Inactive 03/19/2018 [facility] vancomycin (ANES) 1000 mg Rout e: IV, Drug form: INJ, Start date: 03/19/18 13:16:00 CDT, Stop date: 03/19/18 14:16:00 CDT Inactive 03/19/2018 [facility] Sodium Chloride 0.9% IV (ANES) 500 mL Route: IV, Total Volume: 500, Start date: 03/19/18 13:07:00 CDT, Stop date: 03/19/18 14:07:00 CDT Inactive 03/19/2018 [facility] Acetaminophen 325 MG / Hydrocodone Norma trate 10 MG Oral Tablet [[place] 10/325] Notes: Do not exceed 4gm/day of acetamin ophen. (Same as: [place] 325/10) No Longer Active 03/19/2018 [facility] atorvastatin 40 mg oral tablet 40 mg = 1 tab, PO, Bedtime, # 30 tab, 0 Refill(s), Pharmacy: [facility] [id number] On Hold 03/18/2018 [facility] Aspirin 81 MG Enteric Coated Tablet 81 mg = 1 tab, PO, Daily, # 30 tab, 3 Refill(s), Pharmacy: [facility] [id number] On Hold 03/18/2018 [facility] lisinopril 2.5 mg oral tablet 2.5 mg = 1 tab, PO, Daily, # 30 tab, 0 Refill(s), Pharmacy: [facility] [id number] On Hold 03/18/2018 [facility] metoprolol tartrate 25 mg oral tablet 12.5 mg = 0.5 tab, PO, Q12H, # 30 tab, 0 Refill(s), Pharmacy: [facility] [id number] On Hold 03/18/2018 [facility] clopidogrel 75 mg oral tablet 75 mg = 1 tab, PO, Daily, # 30 tab, 1 Refill(s), Pharmacy: [facility] [id number] On Hold 03/18/2018 [facility] Sodium Chloride 0.9% (Bolus) IV 500 mL, 500 ml/hr, Infuse Over: 1 hr, Route: IV, ONCE, Priority: STAT, Dosing Weight 68.6 kg, Start date: 03/17/18 19:43:00 CDT, Stop date: 03/17/18 19:43:00 CDT Inactive 03/18/2018 [facility] Epogen Notes: (Same as: Procri t) epoetin kathy 26096 unit/1 ml VL. For dialysis use only. (Procrit) WASTE: F/P - Red; E -Red MEDICATION WASTE Product Size: 64532 unit Product Wasted: ___ unit No Longer Active 03/16/2018 [facility] please give midodrine before dialysis on dialysis days please give midodrine before dialysis on dialysis days, reminder, Drug form: MISC, Route: MISC, Daily, 03/16/18 6:00:00 CDT, Duration: 30 day, Stop date: 04/14/18 6:00:00 CDT No Longer Active 03/16/2018 [facility] Insulin, Aspart, Human 10 unit , Route: SUB-Q, ONCE, Dosing Weight 68.6, kg, Start date: 03/15/18 21:02:00 CDT, Stop date: 03/15/18 21:02:00 CDT Inactive 03/16/2018 [facility] Insulin Lispro Notes: (Same as : Humalog ) Roll in palms of hands gently; Do not shake `vigorously. "Single Patient Use Only " WASTE: F/P - Black; E - Municipal Trash Bin Stable for 28 days at room temp erature. Expires in days from Date No Longer Active 03/16/2018 [facility] Midodrine Notes: (Same as:Proa matine) No Longer Active 03/15/2018 [facility] sodium bicarbonate 8.4% Notes: (sodium bicarb 8.4% (1 mEq/ml) 50 ml syringe) Inactiv e 03/12/2018 [facility] albumin human 25% intravenous solution 25 gm, Route: IVPB, ONCE, Dosing Weight 68.6, kg, Start date: 03/12/18 13:21:00 CDT, Stop date: 03/12/18 13:21:00 CDT Inactive 03/12/2018 [facility] sodium bicarbonate 8.4% Notes: (sodium bicarb 8.4% (1 mEq/ml) 50 ml syringe) Inactiv e 03/12/2018 [facility] Norepinephrine Notes: Same as: Levophed. Administer by either central venous catheter or peripherally-inserted central catheter (PICC) line. Concentration: 0.032 mg / mL No Longer Active 03/11/2018 [facility] albumin human Notes: LOT#: ___ Mfg: WASTE: F/P - Red; E -Red (Same as: Albuminar) "blood product derivative" Inactive 03/11/2018 [facility] albumin human Notes: LOT#: ___ Mfg: WASTE: F/P - Red; E -Red (Same as: Albuminar) "blood product derivative" No Longer Active 03/11/2018 [facility] albumin human Notes: Lot #: __ Mfg: (Same as: Plasbumin-25) "blood product derivative" WASTE: F/P - Red; E -Red MEDICATION WASTE Product Size: 25 gm Product Wasted: ___ gm Inactive 03/11/2018 [facility] Insulin Lispro Notes: (Same as : Humalog ) Roll in palms of hands gently; Do not shake `vigorously. "Single Patient Use Only " WASTE: F/P - Black; E - Municipal Trash Bin Stable for 28 days at room temp erature. Expires in days from Date No Longer Active 03/11/2018 [facility] Dextrose 50% Syringe 12.5 gm, 25 mL, Route: IVP, Drug Form: INJ, Dosing Weight 68.6, kg, PRN, PRN Blood Glucose Results, Start date: 03/10/18 20:16:00 CDT, Duration: 30 day, Stop date: 04/09/18 20:15:00 CDT No Longer Active 03/11/2018 [facility] Glucagon 1 mg, Route: IM, Drug form: PDR/INJ, PRN, Dosing Weight 68.6, kg, PRN Blood Glucose Results, Start date: 03/10/18 20:16:00 CDT, Duration: 30 day, Stop date: 04/09/18 20:15:00 CDT No Longer Active 03/11/2018 [facility] bumetanide 10 mg + Sodium Chloride 0.9% (titrate) 60 m L Notes: (Same As: Bumex) No Longer Active 03/11/2018 [facility] albumin human Notes: LOT#: ___ Mfg: WASTE: F/P - Red; E -Red (Same as: Albuminar) "blood product derivative" Inactive 03/10/2018 [facility] albumin human Notes: Lot #: __ Mfg: (Same as: Plasbumin-25) "blood product derivative" WASTE: F/P - Red; E -Red MEDICATION WASTE Product Size: 25 gm Product Wasted: ___ gm Inactive 03/09/2018 [facility] Furosemide 100 mg, Route: IV, ONCE, Dosing Weight 56.8, kg, Priority: NOW, Start date: 03/09/18 7:52:00 CDT, Stop date: 03/09/18 7:52:00 CDT Inactive 03/09/2018 [facility] Lasix Notes: (Same as: Lasix) MEDICATION WASTE Product Size: 100 mg Product Wasted: ___ mg Inactive 03/09/2018 [facility] albumin human Notes: LOT#: ___ Mfg: WASTE: F/P - Red; E -Red (Same as: Albuminar) "blood product derivative" No Longer Active 03/09/2018 [facility] furosemide 100 mg + Sodium Chloride 0.9% IV 90 mL Notes: (Same as: Lasix) MEDICATION WASTE Product Size: 100 mg Product Wasted: ___ mg No Longer Active 03/08/2018 [facility] Lasix Notes: (Same as: Lasix) MEDICATION WASTE Product Size: 100 mg Product Wasted: ___ mg Inactive 03/08/2018 [facility] Lasix Notes: (Same as: Lasix) MEDICATION WASTE Product Size: 40 mg Product Wasted: ___ mg Inactive 03/08/2018 [facility] Lasix Notes: (Same as: Lasix) MEDICATION WASTE Product Size: 40 mg Product Wasted: ___ mg Inactive 03/07/2018 [facility] albumin human 25% intravenous solution Notes: LOT#: Mfg: WASTE: F/P - Red; E -Red (Same as: Albuminar) "blood product derivative" No Longer Active 03/07/2018 [facility] docusate sodium 100 mg oral capsule Notes: (Same as: Colace) (Do Not Crush) No Longer Active 03/07/2018 [facility] albumin human 25% intravenous solution Notes: Lot #: Mfg: (Same as: Plasbumin-25) "blood product derivative" WASTE: F/P - Red; E -Red MEDICATION WASTE Product Size: 25 gm Product Wasted: ___ gm Inactive 03/06/2018 [facility] Lasix Notes: (Same as: Lasix) MEDICATION WASTE Product Size: 40 mg Product Wasted: ___ mg Inactive 03/06/2018 [facility] sodium bicarbonate 8.4% Notes: (sodium bicarb 8.4% (1 mEq/ml) 50 ml syringe) Inactiv e 03/06/2018 [facility] Plavix Notes: (Same As: Plavix) No Longer Active 03/06/2018 [facility] Vancomycin 2001 mg: infuse ov er 2.5 hours For adult patients only: Round to nearest 250 mg per Medical Staff approval MEDICATION WASTE Product Size: 1000 mg Product Wasted: 0mg Inactive 03/06/2018 [facility] chlorhexidine gluconate 40 MG/ML Medicated Liquid Soap Notes: (Same As: Hibiclens) No Longer Active 03/06/2018 [facility] Lasix Notes: (Same as: Lasix) MEDICATION WASTE Product Size: 40 mg Product Wasted: ___ mg Inactive 03/06/2018 [facility] Ancef + sterile water 20 mL No ariane: (Same As: Ancef, Kefzol) MEDICATION WASTE Product Size: 1000 mg Product Wasted: _0__ mg No Longer Active 03/06/2018 [facility] Dopamine Notes: (Same as: Intr opin) Administer by either central venous catheter or peripherally-inserted central catheter (PICC) line. Final conc = 3.2 mg/ml. Premix solution. No Longer Active 03/06/2018 [facility] pantoprazole Notes: (Same as: Protonix) Inactive 03/05/2018 [facility] Sodium Chloride 0.9% IV 250 mL 250 mL, Rate: See order comments, Route: IV, Dosing Weight 56.8 kg, Total Volume: 250, Start date: 03/05/18 15:09:00 CDT, Duration: 30 day, Stop date: 04/04/18 15:08:00 CDT, 1.57, m2 No Longer Active 03/05/2018 [facility] Sodium Chloride 0.9% (Bolus) IV Route: IV, PRN, Dosing Weight 56.8 kg, Start date: 03/05/18 14:50:00 CDT, Duration: 30 day, Stop date: 04/04/18 14:49:00 CDT, PRN See Nurse's Notes Inactive 03/05/2018 [facility] 1/2 NS 1,000 mL 1,000 mL, Rate : 50 ml/hr, Infuse over: 20 hr, Route: IV, Dosing Weight 56.8 kg, Total Volume: 1,000, Start date: 03/05/18 14:48:00 CDT, Duration: 30 day, Stop date: 04/04/18 14:47:00 CDT, 1.57, m2 No Longer Active 03/05/2018 [facility] Stimate (ANES) Route: IV, Drug form: INJ, ONCE, Stop date: 03/05/18 13:30:00 CDT Inactive 03/05/2018 [facility] protamine (ANES) 10 mg Route: IV, Drug form: INJ, Start date: 03/05/18 12:34:00 CDT, Stop date: 03/05/18 13:34:00 CDT Inactive 03/05/2018 [facility] ocular lubricant Notes: (Same as: Lacri-Lube, Duratears Naturale, Artificial Tears, and Tears Again ) No Longer Active 03/05/2018 [facility] heparin (ANES) Route: IV, Drug form: INJ, ONCE, Stop date: 03/05/18 10:45:00 CDT Inactive 03/05/2018 [facility] tranexamic acid (ANES) Route: IV, Drug form: INJ, ONCE, Stop date: 03/05/18 10:45:00 CDT Inactive 03/05/2018 [facility] vancomycin (ANES) Route: IV, D rug form: INJ, ONCE, Stop date: 03/05/18 9:43:00 CDT Inactive 03/05/2018 [facility] midazolam (ANES) Route: IV, Dr ug form: SOLN, ONCE, Stop date: 03/05/18 9:43:00 CDT Inactive 03/05/2018 [facility] ceFAZolin (ANES) Route: IV, Dr ug form: INJ, ONCE, Stop date: 03/05/18 9:23:00 CDT Inactive 03/05/2018 [facility] propofol (ANES) Route: IV, Patel g form: INJ, ONCE, Stop date: 03/05/18 9:18:00 CDT Inactive 03/05/2018 [facility] lidocaine (ANES) Route: IV, Dr ug form: INJ, ONCE, Stop date: 03/05/18 9:18:00 CDT Inactive 03/05/2018 [facility] rocuronium (ANES) Route: IV, D rug form: INJ, ONCE, Stop date: 03/05/18 9:18:00 CDT Inactive 03/05/2018 [facility] fentaNYL (ANES) Route: IV, Patel g form: INJ, ONCE, Stop date: 03/05/18 9:18:00 CDT Inactive 03/05/2018 [facility] tranexamic acid (ANES) 100 mg Route: IV, Drug form: INJ, Start date: 03/05/18 9:00:00 CDT, Stop date: 03/05/18 10:00:00 CDT Inactive 03/05/2018 [facility] Famotidine Notes: (Same as: Pe pcid) Can be dilute in 5- 10cc NS IVP: Slow IV push over at least 2 minutes. Inactive 03/05/2018 [facility] chlorhexidine gluconate 1.2 MG/ML Mouthwash Notes: (Same As: Peridex) No Longer Active 03/05/2018 [facility] Lopressor Notes: (Same as: Lop ressor) No Longer Active 03/05/2018 [facility] Maxipime 1 gm, Route: IVPB, AB XQ12H, Dosing Weight 56.8, kg, (CrCl 30 - 49 ml/min), Start date: 03/05/18 9:00:00 CDT, Duration: 2 doses or times, Stop date: 03/05/18 21:00:00 CDT, ABX Indication: Surgical Prophylaxis Inactive 03/05/2018 [facility] Docusate Notes: (Same as: Cola ce) (Do Not Crush) Inactive 03/05/2018 [facility] Mupirocin 0.02 MG/MG Topical Ointment 1 appl, Route: NASAL, BID, Drug form: OINT, Start date: 03/05/18 9:00:00 CDT, Stop date: 03/09/18 17:00:00 CDT No Longe r Active 03/05/2018 [facility] clopidogrel Notes: (Same As: P lavix) Inactive 03/05/2018 [facility] Vancomycin 852 mg, Route: IVPB , Drug form: INJ, [id number], Dosing Weight 56.8, kg, Time Critical Medication, Start date: 03/05/18 9:00:00 CDT, Duration: 2 doses or times, Stop date: 03/05/18 21:00:00 CDT, ABX Ind ication: Surgical Prophylaxis Inactive 03/05/2018 [facility] chlorhexidine gluconate 1.2 MG/ML Mouthwash Notes: (Same As: Peridex) No Longer Active 03/05/2018 [facility] Magnesium Sulfate Notes: WASTE : F/P - Sink; E - Municipal Trash Bin No Longer Active 03/05/2018 [facility] Potassium Chloride Notes: (Isaiah e as: Potassium Chloride) No Longer Active 03/05/2018 [facility] Dextrose 50% Syringe 12.5 gm, 25 mL, Route: IVP, Drug Form: INJ, Dosing Weight 56.8, kg, PRN, PRN Blood Glucose Results, Start date: 03/05/18 8:49:00 CDT, Duration: 30 day, Stop date: 04/04/18 8:48:00 CDT No Longer Active 03/05/2018 [facility] Insulin regular 100 unit + Sodium Chlori de 0.9% (titrate) 99 mL Notes: (Same as: Humulin R and NovoLIN R ) WASTE: F/P - Black; E - Municipal Trash Bin (Do not shake) No Longer Active 03/05/2018 [facility] Norepinephrine Notes: Same as: Levophed. Administer by either central venous catheter or peripherally-inserted central catheter (PICC) line. Concentration: 0.032 mg / mL No Longer Active 03/05/2018 [facility] Epinephrine Notes: (Same as: A drenalin) [employer]med - Injectable drug used as inhalation treatment. MEDICATION WASTE Product Size: 1 mg Product Wasted: ___ mg No Longer Active 03/05/2018 [facility] Phenylephrine Notes: (Same as: Nicho-Synephrine) No Longer Active 03/05/2018 [facility] PlasmaLyte A PH-7.4 250 mL Not es: WASTE: F/P - Sink; E - Municipal Trash Bin Inactive 03/05/2018 [facility] Nicardipine Notes: Same as: Ca rdene Concentration: (0.2 mg /1 ml ) No Longer Active 03/05/2018 [facility] 1/2 NS 250 mL 250 mL, Rate: 10 .42 ml/hr, Infuse over: 24 hr, Route: IV, Dosing Weight 56.8 kg, Total Volume: 250, Start date: 03/05/18 8:49:00 CDT, Stop date: 04/04/18 8:48:00 CDT, 1.57, m2 No Longer Active 03/05/2018 [facility] 1/2NS + KCL 20mEq/L 1000ml (Premix) 1,000 mL Notes: PREMIX IV - Do Not Alter WASTE: F/P - Sink; E - Municipal Trash Bin Inactive 03/05/2018 [facility] Morphine Notes: (Same as:MORPh ine Sulfate) No Longer Active 03/05/2018 [facility] Ondansetron Notes: (Same as: Tino robbins) MEDICATION WASTE Product Size: 4 mg Product Wasted: _0__ mg Inactive 03/05/2018 [facility] Nitroglycerin Notes: (Same as: Nitroquick, Nitrostat) "Do Not Crush" Sublingual tablet No Longer Active 03/05/2018 [facility] Acetaminophen Notes: Do not ex ceed 4 gm/day. (Same as: Tylenol) No Longer Active 03/05/2018 [facility] Acetaminophen 325 MG / Hydrocodone Norma trate 5 MG Oral Tablet Notes: (Same as: [place] 325/5) Do not ex ceed 4gm/day of acetaminophen. No Longer Active 03/05/2018 [facility] Dextrose 50% Syringe 12.5 gm, 25 mL, Route: IVP, Drug Form: INJ, Dosing Weight 56.8, kg, PRN, PRN Blood Glucose Results, Start date: 03/05/18 8:45:00 CDT, Duration: 30 day, Stop date: 04/04/18 8:44:00 CDT Inactive 03/05/2018 [facility] Insulin regular 100 unit + Sodium Chlori de 0.9% (titrate) 99 mL Notes: (Same as: Humulin R and NovoLIN R ) WASTE: F/P - Black; E - Municipal Trash Bin (Do not shake) Inactive 03/05/2018 [facility] Sodium Chloride 0.9% (titrate) 250 mL 250 mL, Rate: To prime line and flush remaining blood products., Dosing Weight 56.8, kg, Route: IV, Total Volume: 250, Priority: Routine, Start Date: 03/05/18 8:45:00 CDT, Duration: 1 day, Stop date: 03/06/18 8:44:00 CDT, Replace Every: 24 hr Inactive 03/05/2018 [facility] Insulin regular (ANES) 1 unit Route: IV, Drug form: INJ, Start date: 03/05/18 8:40:00 CDT, Stop date: 03/05/18 9:40:00 CDT Inactive 03/05/2018 [facility] nitroglycerin (ANES) 400 microgram Route: IV, Drug form: INJ, Start date: 03/05/18 8:40:00 CDT, Stop date: 03/05/18 9:40:00 CDT Inactive 03/05/2018 [facility] Sodium Chloride 0.9% IV (ANES) 1000 mL Route: IV, Total Volume: 1,000, Start date: 03/05/18 8:23:00 CDT, Stop date: 03/05/18 9:23:00 CDT Inactive 03/05/2018 [facility] Phenylephrine = 65, Max Dose: 5 microgram/kg/min, Route: IV, Dosing Weight 56.8 kg, Total Volume: 250, Start date: 03/05/18 6:26:00 CD... Inactive 03/05/2018 [facility] Epinephrine = 65 mmHg, Max Dos e: 0.5 microgram/kg/min, Route: IV, Dosing Weight 56.8 kg, Total Volume: 250, Start date: 03/05/18 6:26:00 CDT... Inactive 03/05/2018 [facility] Norepinephrine Notes: Not for direct administration - DILUTE. Protect from light. (Same as:Levophed). Administer by either central venous catheter or peripherally-inserted central catheter (PICC) line. Inactive 03/05/2018 [facility] Lopressor Notes: (Same as: Lop ressor) Push over 2 minutes Inactive 03/05/2018 [facility] Insulin (Regular) additive 100 unit [0.1 unit/kg/hr] + NS 99 mL Notes: (Same as: Humulin R and NovoLIN R ) WASTE: F/P - Black; E - Municipal Trash Bin (Do not shake) Inactive 03/05/2018 [facility] Phenylephrine Notes: (Same as: Nicho-Synephrine) Inactive 03/05/2018 [facility] Epinephrine Notes: (Same as: A drenalin) [employer] - Injectable drug used as inhalation treatment. MEDICATION WASTE Product Size: 1 mg Product Wasted: ___ mg Inactive 03/05/2018 [facility] Sodium Chloride 0.9% (titrate) 250 mL 250 mL, Rate: To prime line and flush remaining blood products., Dosing Weight 58.182, kg, Route: IV, Total Volume: 250, Start Date: 03/04/18 14:18:00 CDT, Duration: 1 day, Stop date: 03/05/18 14:17:00 CDT, Replace Every: 24 hr No Longer Active 03/04/2018 [facility] Vancomycin 2001 mg: infuse ov er 2.5 hours For adult patients only: Round to nearest 250 mg per Medical Staff approval MEDICATION WASTE Product Size: 1000 mg Product Wasted: ___ mg No Longer Active 03/04/2018 [facility] Ancef + sterile water 20 mL No ariane: (Same As: Ancef, Kefzol) MEDICATION WASTE Product Size: 1000 mg Product Wasted: ___ mg No Longer Active 03/04/2018 [facility] TY251u 250 mL 250 mL, Rate: To prime line and flush remaining blood products., Route: IV, Dosing Weight 58.182 kg, Total Volume: 250, Priority: Routine, Start date: 03/04/18 12:35:00 CDT, Duration: 1 day, Stop date: 03/05/18 12:34:00 CDT, 1.59, m2 No Longer Active 03/04/2018 [facility] Insulin Lispro Notes: (Same as : Humalog ) Roll in palms of hands gently; Do not shake `vigorously. "Single Patient Use Only " WASTE: F/P - Black; E - Municipal Trash Bin Stable for 28 days at room temp erature. Expires in days from Date No Longer Active 03/03/2018 [facility] Nitroglycerin Notes: (Same as: Tridil) Final conc = 0.4 mg/ml. Premix bottle. No Longe r Active 03/01/2018 [facility] Sodium Chloride 0.9% (titrate) 250 mL 250 mL, Rate: To prime line and flush remaining blood products., Dosing Weight 58.182, kg, Route: IV, Total Volume: 250, Priority: Routine, Start Date: 03/01/18 9:26:00 CDT, Duration: 1 day, Stop date: 03/02/18 9:25:00 CDT, Replace Every: 24 hr No Longer Active 03/01/2018 [facility] Morphine 4 mg, Route: IVP, ONC E, Dosing Weight 58.182, kg, Start date: 03/01/18 9:12:00 CDT, Stop date: 03/01/18 9:12:00 CDT Inactive 03/01/2018 [facility] Amlodipine Notes: (Same as: No rvasc) No Longer Active 03/01/2018 [facility] Docusate Notes: (Same as: Cola ce) (Do Not Crush) No Longer Active 03/01/2018 [facility] Escitalopram Notes: (Same as: Lexapro) No Longer Active 03/01/2018 [facility] Protonix Notes: Tablet should not be chewed or crushed. (Same as: Protonix) No Longer Active 03/01/2018 [facility] Aspirin 81 MG Enteric Coated Tablet Notes: Do not crush or chew. (Same As: Ecotrin) No Longer Active 03/01/2018 [facility] Omeprazole 20 mg, Route: PO, D rug form: DRC, Daily, Dosing Weight 58.182, kg, Start date: 03/01/18 9:00:00 CDT, Duration: 30 day, Stop date: 03/30/18 9:00:00 CDT No Longer Active 03/01/2018 [facility] Insulin Glargine 100 UNT/ML Injectable Solution Notes: (Same as: Lantus) Do not hold insulin without contacting prescriber WASTE: F/P - Black; E - Municipal Trash Bin "single patient use only" No Longer Active 03/01/2018 [facility] Insulin Lispro Notes: (Same as : Humalog ) Roll in palms of hands gently; Do not shake `vigorously. "Single Patient Use Only " WASTE: F/P - Black; E - Municipal Trash Bin Stable for 28 days at room temp erature. Expires in days from Date No Longer Active 03/01/2018 [facility] Dextrose 50% Syringe 25 mL, Ro kay: IVP, Dosing Weight 58.182, kg, PRN, PRN Blood Glucose Results, Start date: 02/28/18 22:14:00 CDT, Duration: 30 day, Stop date: 03/30/18 22:13:00 CDT Inactive 03/01/2018 [facility] Glucagon 1 mg, Route: IM, PRN, Dosing Weight 58.182, kg, PRN Blood Glucose Results, Start date: 02/28/18 22:14:00 CDT, Duration: 30 day, Stop date: 03/30/18 22:13:00 CDT Inactive 03/01/2018 [facility] atorvastatin Notes: (Same as: Lipitor) No Longer Active 03/01/2018 [facility] carvedilol Notes: Give with fo od. (Same As: Coreg) No Longer Active 03/01/2018 [facility] Metoclopramide 5 MG Oral Tablet Notes: (Same as: Reglan) Take 30 min before meals No Longer Active 02/28/2018 [facility] Hydralazine Notes: (Same as: A presoline) Push over 5 minutes No Longer Active 02/28/2018 [facility] Melatonin Notes: (Same as: Priti atonin) No Longer Active 02/28/2018 [facility] Ondansetron Notes: (Same as: Tino robbins) MEDICATION WASTE Product Size: 4 mg Product Wasted: ___ mg No Longer Active 02/28/2018 [facility] Acetaminophen Notes: Do not ex ceed 4 gm/day. (Same as: Tylenol) No Longer Active 02/28/2018 [facility] Acetaminophen 325 MG / Hydrocodone Norma trate 5 MG Oral Tablet Notes: (Same as: [place] 325/5) Do not ex ceed 4gm/day of acetaminophen. No Longer Active 02/28/2018 [facility] Morphine Notes: (Same as:MORPh ine Sulfate) No Longer Active 02/28/2018 [facility] Heparin 30 unit/kg Bolus (Heparin Dosing Weight) Route: IVP, PRN, 1,500 unit, 1.5 mL, Drug form: INJ, PRN, Heparin Protocol, Start date: 02/28/18 15:59:00 CDT Stop date: 03/30/18 15:58:00 CDT, 30 day No Longer Active 02/28/2018 [facility] Heparin 60 unit/kg Bolus (Heparin Dosing Weight) Route: IVP, PRN, 3,000 unit, 3 mL, Drug form: INJ, PRN, Heparin Protocol, Start date: 02/28/18 15:59:00 CDT Stop date: 03/30/18 15:58:00 CDT, 30 day No Longer Active 02/28/2018 [facility] Heparin - one time bolus for ACS 3,000 unit, 3 mL, Route: IVP, Drug form: INJ, ONCE, Dosing Weight 58.182, kg, Priority: STAT, Start date: 02/28/18 15:59:00 CDT, Stop date: 02/28/18 15:59:00 CDT Inactive 02/28/2018 [facility] heparin additive 25,000 unit [12 unit/kg /hr] + Premix Diluent Dextrose 5% 500 mL 500 mL, Rate: 12.14 ml/hr, Infuse over: 41.2 hr, Route: IV, Dosing Weight 50.6 kg, Total Volume: 500 mL, Start date: 02/28/18 15:59:00 CDT, Duration: 30 day, Stop date: 03/30/18 15:58:00 CDT, 1.48, m2 No Longer Active 02/28/2018 [facility] Nitroglycerin 0.02 MG/MG Topical Ointment Notes: 1 gram is approximately 1 inch of nitroglycerin ointment (20 mg NTG per gram) (Same as:Nitro-Bid) Inactive 02/28/2018 [facility] Fentanyl Notes: (Same as: Subl imaze) Preservative free. Inactive 02/28/2018 [facility] Nitroglycerin Notes: (Same as: Nitroquick, Nitrostat) "Do Not Crush" Sublingual tablet Inactive 02/28/2018 [facility] Aspirin Notes: Take with food. Inactive 02/28/2018 [facility] Aspirin 81 MG Enteric Coated Tablet 81 mg = 1 tab, PO, Daily, # 30 tab, 3 Refill(s), Pharmacy: [facility] [id number] Active 02/21/2018 [facility] pantoprazole 40 mg oral enteric coated tablet 40 mg = 1 tab, PO, Daily, # 30 tab, 0 Refill(s), Pharmacy: [facility] [id number] Active 02/21/2018 [facility] carvedilol 25 mg oral tablet 2 5 mg = 1 tab, PO, Q12H, # 60 tab, 0 Refill(s), Pharmacy: [facility] [id number] Active 02/21/2018 [facility] atorvastatin 40 mg oral tablet 40 mg = 1 tab, PO, Bedtime, # 30 tab, 0 Refill(s), Pharmacy: [facility] [id number] Active 02/21/2018 [facility] normal saline 0.9% IV 1,000 mL 1,000 mL, Rate: 70 ml/hr, Infuse over: 14.3 hr, Route: IV, Dosing Weight 56.932 kg, Total Volume: 1,000, Start date: 02/19/18 12:46:00 CDT, Duration: 30 day, Stop date: 03/21/18 12:45:00 CDT, 1.57, m2 No Longer Active 02/19/2018 [facility] Zofran Notes: (Same as: Zofran ) MEDICATION WASTE Product Size: 4 mg Product Wasted: ___ mg No Longer Active 02/19/2018 [facility] Midodrine Notes: (Same as:Proa matine) No Longer Active 02/18/2018 [facility] Octreotide Notes: (Same As: Sa ndoSTATIN). Refrigerate. MEDICATION WASTE Product Size: 100 microgram Product Wasted: _0_ microgram No Longer Active 02/18/2018 [facility] albumin human 25% intravenous solution Notes: Lot #: Mfg: (Same as: Plasbumin-[id number]) "blood product derivative" WASTE: F/P - Red; E -Red MEDICATION WASTE Product Size: 25 gm Product Wasted: ___ gm Inactive 02/18/2018 [facility] Sodium Chloride 0.9% (titrate) 250 mL 250 mL, Rate: To prime line and flush remaining blood products., Dosing Weight 56.932, kg, Route: IV, Total Volume: 250, Priority: Routine, Start Date: 02/18/18 9:25:00 CDT, Duration: 1 day, Stop date: 02/19/18 9:24:00 CDT, Replace Every: 24 hr No Longer Active 02/18/2018 [facility] morphine Sulfate Notes: (Same as:MORPhine Sulfate) No Longer Active 02/17/2018 [facility] morphine Sulfate Notes: (Same as:MORPhine Sulfate) Inactive 02/17/2018 [facility] Sulfasalazine Notes: (Same As: Azulfidine) No Longer Active 02/16/2018 [facility] Sodium Bicarbonate Notes: "Dis solve tablet in a glass of water prior to oral administration. STOMACH WARNING: To avoid serious injury, do not take until tablet is completely dissolved. It is very important not to t jhony this product when overly full from food or drink." No Longer Active 02/16/2018 [facility] Omeprazole 20 mg, Route: PO, D rug form: DRC, Daily, Dosing Weight 56.932, kg, Start date: 02/16/18 9:00:00 CDT, Duration: 30 day, Stop date: 03/17/18 9:00:00 CDT No Longer Active 02/16/2018 [facility] Protonix Notes: Tablet should not be chewed or crushed. (Same as: Protonix) No Longer Active 02/16/2018 [facility] Insulin Glargine 100 UNT/ML Injectable Solution Notes: (Same as: Lantus) Do not hold insulin without contacting prescriber WASTE: F/P - Black; E - Municipal Trash Bin "single patient use only" No Longer Active 02/16/2018 [facility] Escitalopram Notes: (Same as: Lexapro) No Longer Active 02/16/2018 [facility] Amlodipine Notes: (Same as: No rvasc) No Longer Active 02/16/2018 [facility] atorvastatin Notes: (Same as: Lipitor) No Longer Active 02/16/2018 [facility] Metoclopramide 5 MG Oral Tablet Notes: (Same as: Reglan) Take 30 min before meals No Longer Active 02/15/2018 [facility] Nitroglycerin Notes: (Same as: Nitroquick, Nitrostat) "Do Not Crush" Sublingual tablet No Longer Active 02/15/2018 [facility] Sodium Chloride 0.9% IV 500 mL 500 mL, Rate: 50 ml/hr, Infuse over: 10 hr, Route: IV, Dosing Weight 56.932 kg, Total Volume: 500, Start date: 02/15/18 17:55:00 CDT, Duration: 10 hr, Stop date: 02/16/18 3:54:00 CDT, 1.57, m2 No Longer Active 02/15/2018 [facility] Sodium Chloride 0.9% (Bolus) IV 250 mL, 250 ml/hr, Infuse Over: 1 hr, Route: IV, 250, Drug form: INJ, ONCALL, Priority: Routine, Dosing Weight 56.932 kg, Start date: 02/15/18 16:00:00 CDT, Duration: 1 doses or times No Longer Active 02/15/2018 [facility] Sodium Chloride 0.9% IV 750 mL 750 mL, Rate: 75 ml/hr, Infuse over: 10 hr, Route: IV, Dosing Weight 56.932 kg, Total Volume: 750, Start date: 02/15/18 15:05:00 CDT, Duration: 24 hr, Stop date: 02/16/18 15:04:00 CDT, 1.57, m2 No Longer Active 02/15/2018 [facility] Coreg Notes: Give with food. ( Same As: Coreg) No Longer Active 02/15/2018 [facility] Saline Flush 0.9% Notes: (Same as: BD Posiflush) No Longer Active 02/15/2018 [facility] Heparin - one time bolus for ACS 3,000 unit, 3 mL, Route: IVP, Drug form: INJ, ONCE, Dosing Weight 56.932, kg, Priority: STAT, Start date: 02/15/18 8:02:00 CDT, Stop date: 02/15/18 8:02:00 CDT Inactive 02/15/2018 [facility] heparin additive 25,000 unit [12 unit/kg /hr] + Premix Diluent Dextrose 5% 500 mL 500 mL, Rate: 12.02 ml/hr, Infuse over: 41.6 hr, Route: IV, Dosing Weight 50.07 kg, Total Volume: 500 mL, Start date: 02/15/18 8:02:00 CDT, Duration: 30 day, Stop date: 03/17/18 8:01:00 CDT, 1.47, m2 No Longer Active 02/15/2018 [facility] Heparin 30 unit/kg Bolus (Heparin Dosing Weight) Route: IVP, PRN, 1,500 unit, 1.5 mL, Drug form: INJ, PRN, Heparin Protocol, Start date: 02/15/18 8:02:00 CDT Stop date: 03/17/18 8:01:00 CDT, 30 day No Longer Active 02/15/2018 [facility] Heparin 60 unit/kg Bolus (Heparin Dosing Weight) Route: IVP, PRN, 3,000 unit, 3 mL, Drug form: INJ, PRN, Heparin Protocol, Start date: 02/15/18 8:02:00 CDT Stop date: 03/17/18 8:01:00 CDT, 30 day No Longer Active 02/15/2018 [facility] Insulin Lispro Notes: (Same as : Humalog ) Roll in palms of hands gently; Do not shake `vigorously. "Single Patient Use Only " WASTE: F/P - Black; E - Municipal Trash Bin Stable for 28 days at room temp erature. Expires in days from Date Inactive 02/15/2018 [facility] Morphine 2 mg, 1 mL, Route: IV P, Drug form: SOLN, Q4H, Dosing Weight 56.932, kg, PRN Chest Pain, Start date: 02/15/18 2:27:00 CDT, Duration: 30 day, Stop date: 03/17/18 2:26:00 CDT No Longer Active 02/15/2018 [facility] Morphine Notes: (Same as:MORPh ine Sulfate) Inactive 02/15/2018 [facility] Acetaminophen 325 MG / Hydrocodone Norma trate 5 MG Oral Tablet [[place] 5/325] Notes: (Same as: [place] 325/5) Do not ex ceed 4gm/day of acetaminophen. Inactive 02/15/2018 [facility] Amlodipine 10 mg, PO, Daily, 0 Refill(s) Active 02/15/2018 [facility] Sodium Bicarbonate 650 mg, PO, BID, 0 Refill(s) Active 02/15/2018 [facility] lisinopril 20 mg oral tablet 2 0 mg = 1 tab, PO, Daily, # 90 tab, 0 Refill(s) No Longer Active 02/15/2018 [facility] Hydrochlorothiazide 25 mg, PO, Daily, 0 Refill(s) No Longer Active 02/15/2018 [facility] Aspirin 81 MG Enteric Coated Tablet Notes: Do not crush or chew. (Same As: Ecotrin) No Longer Active 02/15/2018 [facility] Insulin Lispro Notes: (Same as : Humalog ) Roll in palms of hands gently; Do not shake `vigorously. "Single Patient Use Only " WASTE: F/P - Black; E - Melon Power Trash Bin Stable for 28 days at room temp erature. Expires in days from Date No Longer Active 02/15/2018 [facility] Dextrose 50% Syringe 25 gm, 50 mL, Route: IVP, Drug Form: INJ, Dosing Weight 58.182, kg, PRN, PRN Blood Glucose Results, Start date: 02/14/18 21:59:00 CDT, Duration: 30 day, Stop date: 03/16/18 21:58:00 CDT No Longer Active 02/15/2018 [facility] Glucagon 1 mg, Route: IM, Drug form: PDR/INJ, PRN, Dosing Weight 58.182, kg, PRN Blood Glucose Results, Start date: 02/14/18 21:59:00 CDT, Duration: 30 day, Stop date: 03/16/18 21:58:00 CDT No Longer Active 02/15/2018 [facility] Kayexalate Notes: (sodium poly styrene sulfonate 15 gm/60 ml MERRY) Shake well before use. (Same as: Kayexalate, SPS) Inactive 02/15/2018 [facility] Saline Flush 0.9% Notes: (Same as: BD Posiflush) No Longer Active 02/15/2018 [facility] Acetaminophen Notes: Do not ex ceed 4 gm/day. (Same as: Tylenol) No Longer Active 02/15/2018 [facility] Aspirin Notes: Take with food. Inactive 02/15/2018 [facility] Saline Flush 0.9% Notes: (Same as: BD Posiflush) No Longer Active 02/15/2018 [facility] Insulin regular 10 unit, Route : IVP, ONCE, Dosing Weight 58.182, kg, Priority: STAT, Start date: 02/14/18 19:33:00 CDT, Stop date: 02/14/18 19:33:00 CDT Inactive 02/15/2018 [facility] Calcium Gluconate 1 gm, Route: IVPB, ONCE, Dosing Weight 58.182, kg, Priority: STAT, Start date: 02/14/18 19:33:00 CDT, Stop date: 02/14/18 19:33:00 CDT Inactive 02/15/2018 [facility] Furosemide 40 mg, Route: IVP, ONCE, Dosing Weight 58.182, kg, Priority: STAT, Start date: 02/14/18 19:33:00 CDT, Stop date: 02/14/18 19:33:00 CDT Inactive 02/15/2018 [facility] Dextrose 50% Syringe 100 mL, R oute: IVP, Dosing Weight 58.182, kg, ONCE, STAT, Start date: 02/14/18 19:33:00 CDT, Stop date: 02/14/18 19:33:00 CDT Inactive 02/15/2018 [facility] Albuterol 0.83 MG/ML Inhalant Solution 20 mg, Route: NEB, ONCE, Dosing Weight 58.182, kg, Priority: STAT, Start date: 02/14/18 19:33:00 CDT, Stop date: 02/14/18 19:33:00 CDT Inactive 02/15/2018 [facility] Saline Flush 0.9% Notes: (Same as: BD Posiflush) No Longer Active 02/15/2018 [facility] Insulin Glargine 100 UNT/ML Injectable Solution 20 unit, Route: SUB-Q, Drug form: SOLN, Daily, Dosing Weight 58.182, kg, Start date: 02/10/18 9:00:00 CDT, Duration: 30 day, Stop date: 03/11/18 9:00:00 CDT No Longer Active 02/10/2018 [facility] Escitalopram Notes: (Same as: Lexapro) No Longer Active 02/10/2018 [facility] Omeprazole 20 mg, Route: PO, D rug form: DRC, Daily, Dosing Weight 58.182, kg, Start date: 02/10/18 9:00:00 CDT, Duration: 30 day, Stop date: 03/11/18 9:00:00 CDT No Longer Active 02/10/2018 [facility] Insulin Glargine 100 UNT/ML Injectable S olution [Lantus] Notes: (Same as: Lantus) Do not hold ins ulin without contacting prescriber WASTE: F/P - Black; E - Municipal Trash Bin "single patient use only" No Longer Active 02/10/2018 [facility] Rocephin Notes: (Same As: Vlad macedo). Use with 100 mL NS and infuse over 30 min MEDICATION WASTE Product Size: 1000 mg Product Wasted: ___ mg No Longer Active 02/10/2018 [facility] calcium gluconate + Sodium Chloride 0.9% IV 100 mL Notes: WASTE: F/P - Sink; E - Municipal Trash Bin Inactive 02/09/2018 [facility] Calcium Gluconate Notes: WASTE : F/P - Sink; E - Municipal Trash Bin Inactive 02/09/2018 [facility] Insulin regular Notes: (Same a s: Humulin R and NovoLIN R) WASTE: F/P - Black; E - Municipal Trash Bin (Do not shake) Inactive 02/09/2018 [facility] Dextrose 50% Syringe 25 gm, 50 mL, Route: IVP, Drug Form: INJ, Dosing Weight 57.045, kg, ONCE, Start date: 02/09/18 17:46:00 CDT, Stop date: 02/09/18 17:46:00 CDT Inactive 02/09/2018 [facility] Lasix Notes: (Same as: Lasix) MEDICATION WASTE Product Size: 40 mg Product Wasted: ___ mg Inactive 02/09/2018 [facility] Sodium Bicarbonate Notes: "Dis solve tablet in a glass of water prior to oral administration. STOMACH WARNING: To avoid serious injury, do not take until tablet is completely dissolved. It is very important not to t jhony this product when overly full from food or drink." No Longer Active 02/09/2018 [facility] Protonix Notes: Tablet should not be chewed or crushed. (Same as: Protonix) No Longer Active 02/09/2018 [facility] Kayexalate Notes: (sodium poly styrene sulfonate 15 gm/60 ml MERRY) Shake well before use. (Same as: Kayexalate, SPS) Inactive 02/09/2018 [facility] Metoclopramide 5 MG Oral Tablet Notes: (Same as: Reglan) Take 30 min before meals No Longer Active 02/09/2018 [facility] Aspirin 81 MG Enteric Coated Tablet Notes: Do not crush or chew. (Same As: Ecotrin) No Longer Active 02/09/2018 [facility] Saline Flush 0.9% Notes: (Same as: BD Posiflush) No Longer Active 02/09/2018 [facility] Insulin Glargine Notes: (Same as: Lantus) Do not hold insulin without contacting prescriber WASTE: F/P - Black; E - Municipal Trash Bin "single patient use only" No Longer Active 02/09/2018 [facility] atorvastatin Notes: (Same as: Lipitor) No Longer Active 02/09/2018 [facility] Insulin Glargine 100 UNT/ML Injectable S olution [Lantus] 20 unit, SUB-Q, Bedtime, # 10 mL, 3 Refill(s) No Longer Active 02/09/2018 [facility] Rocephin Notes: (Same As: Roce phin). Use with 100 mL NS and infuse over 30 min MEDICATION WASTE Product Size: 1000 mg Product Wasted: ___ mg Inactive 02/09/2018 [facility] carvedilol Notes: Give with fo od. (Same As: Coreg) No Longer Active 02/09/2018 [facility] Lasix Notes: (Same as: Lasix) MEDICATION WASTE Product Size: 40 mg Product Wasted: ___ mg No Longer Active 02/09/2018 [facility] lisinopril 20 mg oral tablet 2 0 mg = 1 tab, PO, Daily, # 30 tab, 0 Refill(s) No Longer Active 02/08/2018 [facility] Metoclopramide 5 MG Oral Tablet 5 mg = 0, PO, QID-Before Meals, PRN nausea and vomiting, # 40 tab, 0 Refill(s) Active 02/08/2018 [facility] predniSONE 10 mg oral tablet 1 0 mg = 1 tab, PO, Daily, # 30 tab, 3 Refill(s) Active 02/08/2018 [facility] escitalopram 10 mg oral tablet 10 mg = 1 tab, PO, Daily, # 30 tab, 0 Refill(s) Active 02/08/2018 [facility] sulfaSALAzine 500 mg oral tablet 500 mg = 1 tab, PO, BID, # 60 tab, 0 Refill(s) Active 02/08/2018 [facility] Sodium Bicarbonate 650 mg, PO, BID, 0 Refill(s) No Longer Active 02/08/2018 [facility] omeprazole 20 mg oral delayed release capsule 20 mg = 1 cap, PO, Daily, # 30 cap, 0 Refill(s) Active 02/08/2018 [facility] Insulin Lispro Notes: (Same as : Humalog ) Roll in palms of hands gently; Do not shake `vigorously. "Single Patient Use Only " WASTE: F/P - Black; E - Melon Power Trash Bin Stable for 28 days at room temp erature. Expires in days from Date No Longer Active 02/08/2018 [facility] Glucagon 1 mg, Route: IM, Drug form: PDR/INJ, PRN, Dosing Weight 58.182, kg, PRN Blood Glucose Results, Start date: 02/08/18 18:25:00 CDT, Duration: 30 day, Stop date: 03/10/18 18:24:00 CDT No Longer Active 02/08/2018 [facility] Dextrose 50% Syringe 25 gm, 50 mL, Route: IVP, Drug Form: INJ, Dosing Weight 58.182, kg, PRN, PRN Blood Glucose Results, Start date: 02/08/18 18:25:00 CDT, Duration: 30 day, Stop date: 03/10/18 18:24:00 CDT No Longer Active 02/08/2018 [facility] Hydralazine Notes: (Same as: A presoline) Push over 5 minutes No Longer Active 02/08/2018 [facility] Saline Flush 0.9% Notes: (Same as: BD Posiflush) No Longer Active 02/08/2018 [facility] Morphine Notes: (Same as:MORPh ine Sulfate) No Longer Active 02/08/2018 [facility] Nitroglycerin Notes: (Same as: NitroAlice raitat) "Do Not Crush" Sublingual tablet No Longer Active 02/08/2018 [facility] Acetaminophen Notes: Do not ex ceed 4 gm/day. (Same as: Tylenol) No Longer Active 02/08/2018 [facility] Diphenhydramine 25 mg, 1 tab, Route: PO, Drug form: TAB, Bedtime, Dosing Weight 58.182, kg, PRN Insomnia, Start date: 02/08/18 18:21:00 CDT, Duration: 30 day, Stop date: 03/10/18 18:20:00 CDT No Longer Active 02/08/2018 [facility] Ondansetron Notes: (Same as: Tino robbins) No Longer Active 02/08/2018 [facility] Clonidine Hydrochloride 0.1 MG Oral Tablet 0.1 mg, Route: PO, Drug form: TAB, ONCE, Dosing Weight 68.182, kg, Start date: 02/08/18 17:26:00 CDT, Stop date: 02/08/18 17:26:00 CDT Inactive 02/08/2018 [facility] Nitroglycerin 0.02 MG/MG Topical Ointment 1 inch, Route: TOP, Dosing Weight 68.182, kg, ONCE, Start date: 02/08/18 17:26:00 CDT, Stop date: 02/08/18 17:26:00 CDT Inactive 02/08/2018 [facility] Aspirin Notes: Take with food. Inactive 02/08/2018 [facility] Nitroglycerin Notes: (Same as: Maribel Hutton) "Do Not Crush" Sublingual tablet Inactive 02/08/2018 [facility] Saline Flush 0.9% Notes: prese rvative free. No Longer Active 02/08/2018 [facility] Amoxicillin 875 MG / Clavulanate 125 MG Oral Tablet [Augmentin 875-mg] Notes: With food. (Same as: Augmentin 87 5) Inactive 01/31/2017 [facility] 120 ACTUAT Albuterol 0.1 MG/ACTUAT / Ipr atropium [place] 0.02 MG/ACTUAT Metered Dose Inhaler [Combivent 20/100] 1 puff, INHALATION, QID, # 2 ea, 1 Refill(s) Active 01/31/2017 [facility] insulin detemir 100 units/mL subcutaneous solution 15 unit, SUB-Q, Bedtime, 0 Refill(s) Active 01/31/2017 [facility] thiamine 100 mg oral tablet 10 0 mg = 1 tab, PO, Daily, # 30 tab, 1 Refill(s) No Longer Active 01/31/2017 [facility] Furosemide 40 MG Oral Tablet [Lasix] 40 mg = 1 tab, PO, BID, # 60 tab, 1 Refill(s) Active 01/31/2017 [facility] Robitussin-AC oral syrup 5 mL, PO, Q4H, PRN Cough/Congestion, # 240 mL, 0 Refill(s) No Longer Active 01/31/2017 [facility] Amoxicillin 875 MG / Clavulanate 125 MG Oral Tablet [Augmentin 875-mg] 1 tab, PO, Q12H, with food or milk, # 20 tab, 0 Refill(s) No Longer Active 01/31/2017 [facility] Insulin, Aspart, Human 5 unit, SUB-Q, TID-Before Meals, 0 Refill(s) Active 01/31/2017 [facility] Furosemide 40 MG Oral Tablet [Lasix] Notes: (Same as: Lasix) May cause GI upset. Give with food or milk. No Longer Active 01/30/2017 [facility] Levemir Notes: Same as Levemir Do not hold insulin without contacting prescriber WASTE: F/P - Black; E - [employer] Trash Bin "single patient use only" No Longer Active 01/29/2017 [facility] Dilaudid 0.5 mg, 0.5 mL, Route : IVP, Drug form: INJ, Q4H, Dosing Weight 56.818, kg, PRN Pain Score 7-10, Start date: 01/27/17 20:08:00 CDT, Duration: 30 day, Stop date: 02/26/17 20:07:00 CDT No Longer Active 01/28/2017 [facility] Ondansetron Notes: (Same as: Tino robbins) MEDICATION WASTE Product Size: 4 mg Product Wasted: none No Longer Active 01/26/2017 [facility] Morphine Notes: (Same as:MORPh ine Sulfate) No Longer Active 01/26/2017 [facility] potassium chloride 20 mEq oral tablet, extended releas e Notes: (Same as: K-Dur 20) "Do Not Crush" With food and full glass of water Inactive 01/26/2017 [facility] ferrous sulfate Notes: Give wi th food. "Do Not Crush" No Longer Active 01/25/2017 [facility] cefepime Notes: (Same As: Pedro medina) MEDICATION WASTE Product Size: 1000 mg Product Wasted: ___ mg No Longer Active 01/25/2017 [facility] benzonatate Notes: (Same As: Shayy Roman) "Do Not Crush" No Longer Active 01/25/2017 [facility] aspirin 81 mg tablet, enteric coated Notes: Do not crush or chew. (Same As: Ecotrin) N o Longer Active 01/25/2017 [facility] Lasix Notes: (Same as: Lasix) MEDICATION WASTE Product Size: 40 mg Product Wasted: ___ mg No Longer Active 01/25/2017 [facility] Levemir Notes: Same as Levemir Do not hold insulin without contacting prescriber WASTE: F/P - Black; E - Municipal Trash Bin "single patient use only" No Longer Active 01/25/2017 [facility] Albuterol 0.833 MG/ML / Ipratropium Brom sha 0.167 MG/ML Inhalant Solution [DuoNeb] Notes: (Same as: Duoneb) No Longer Active 01/25/2017 [facility] NovoLog SUB-Q, TID-Before Meal s, 0 Refill(s) Active 01/25/2017 [facility] ferrous sulfate See Instructio ns, PO, 0 Refill(s) Active 01/25/2017 [facility] benzonatate 200 mg oral capsule 200 mg = 1 cap, PO, TID, # 30 cap, 0 Refill(s) Active 01/25/2017 [facility] NovoLog Notes: Roll in palms o f hands gently; Do not shake vigorously. (Same as: NovoLOG) "single patient use only" WASTE: F/P - Black; E - Municipal Trash Bin Stable for 28 days at room temperature. Expires in days from Date No Longer Active 01/24/2017 [facility] Zithromax Notes: (Same As: Zit hromax IV) No Longer Active 01/24/2017 [facility] Thiamine Notes: (Same As: Florinda min B1) No Longer Active 01/24/2017 [facility] Robitussin-AC oral syrup Notes : (Same As: Robitussin AC) No Longer Active 01/24/2017 [facility] Insulin, Aspart, Human Notes: Roll in palms of hands gently; Do not shake vigorously. (Same as: NovoLOG) "single patient use only" WASTE: F/P - Black; E - Municipal Trash Bin Stable for 28 days at room temperature. Expires in days from Date No Longer Active 01/24/2017 [facility] Dextrose 50% Syringe 25 gm, 50 mL, Route: IVP, Drug Form: INJ, Dosing Weight 50, kg, PRN, PRN Blood Glucose Results, Start date: 01/24/17 15:09:00 CDT, Duration: 30 day, Stop date: 02/23/17 15:08:00 CDT No Longer Active 01/24/2017 [facility] Glucagon 1 mg, Route: IM, Drug form: PDR/INJ, PRN, Dosing Weight 50, kg, PRN Blood Glucose Results, Start date: 01/24/17 15:09:00 CDT, Duration: 30 day, Stop date: 02/23/17 15:08:00 CDT No Longer Active 01/24/2017 [facility] sodium bicarbonate 8.4% Notes: (sodium bicarb 8.4% (1 mEq/ml) 50 ml syringe) Inactiv e 01/24/2017 [facility] Levofloxacin Notes: (Same as:Carlito evaqfrank) Inactive 01/24/2017 [facility] cefepime Notes: (Same As: Pedro medina) MEDICATION WASTE Product Size: 1000 mg Product Wasted: ___ mg Inactive 01/24/2017 [facility] Vancomycin 2001 mg: infuse ov er 2.5 hours MEDICATION WASTE Product Size: 1000 mg Product Wasted: ___ mg Inactive 01/24/2017 [facility] Zofran 4 mg, Route: IVP, Drug form: INJ, ONCE, Dosing Weight 50, kg, Priority: STAT, Start date: 01/24/17 13:03:00 CDT, Stop date: 01/24/17 13:03:00 CDT Inactive 01/24/2017 [facility] Furosemide Notes: (Same as: Tavia damon) MEDICATION WASTE Product Size: 40 mg Product Wasted: ___ mg Inactive 01/24/2017 [facility] Insulin regular 10 unit, Route : IVP, ONCE, Dosing Weight 50, kg, Priority: STAT, Start date: 01/24/17 11:38:00 CDT, Stop date: 01/24/17 11:38:00 CDT Inactive 01/24/2017 [facility] Zofran 4 mg, Route: IVP, Drug form: INJ, ONCE, Dosing Weight 50, kg, Priority: STAT, Start date: 01/24/17 11:12:00 CDT, Stop date: 01/24/17 11:12:00 CDT Inactive 01/24/2017 [facility] Sodium Chloride 0.154 MEQ/ML Injectable Solution 500 mL, 500 ml/hr, Infuse Over: 1 hr, Route: IV, ONCE, Priority: STAT, Dosing Weight 50 kg, Start date: 01/24/17 11:12:00 CDT, Duration: 1 doses or times, Stop date: 01/24/17 11:12:00 CDT Inactive 01/24/2017 [facility] Aspirin 324 mg, Route: CHEW, D rug form: CHEWTAB, ONCE, Dosing Weight 50, kg, Priority: STAT, Start date: 01/24/17 10:33:00 CDT, Stop date: 01/24/17 10:33:00 CDT Inactive 01/24/2017 [facility] Saline Flush 0.9% Notes: (Same as: BD Posiflush) No Longer Active 01/24/2017 [facility] meclizine 25 mg oral tablet 25 mg = 1 tab, PO, TID, PRN Dizziness, X 7 day, # 21 tab, 0 Refill(s) Active 01/18/2017 [facility] aspirin 81 mg tablet, enteric coated 81 mg = 1 tab, PO, Daily, # 100 tab, 0 Refill(s) Active 01/18/2017 [facility] amLODIPine 5 mg oral tablet 5 mg = 1 tab, PO, Daily, # 30 tab, 0 Refill(s) Active 01/18/2017 [facility] Sodium Chloride 0.154 MEQ/ML Injectable Solution 1,000 mL, Rate: 60 ml/hr, Infuse over: 16.7 hr, Route: IV, Dosing Weight 52.273 kg, Total Volume: 1,000, Start date: 01/17/17 14:54:00 CDT, Duration: 30 day, Stop date: 02/16/17 14:53:00 CDT No Longer Active 2017 [facility] Meclizine Notes: (Same as: Ant ivert) No Longer Active 2017 [facility] Insulin Glargine 100 UNT/ML Injectable Solution 20 unit, Route: SUB-Q, Drug form: SOLN, Daily, Dosing Weight 52.273, kg, Start date: 01/17/17 9:00:00 CDT, Duration: 30 day, Stop date: 02/15/17 9:00:00 CDT No Longer Active 2017 [facility] aspirin 81 mg tablet, enteric coated Notes: Do not crush or chew. (Same As: Ecotrin) N o Longer Active 01/16/2017 [facility] Hydralazine Notes: (Same as: A presoline) Push over 5 minutes No Longer Active 01/16/2017 [facility] Norvasc Notes: (Same as: Norva sc) No Longer Active 01/16/2017 [facility] insulin detemir Notes: EXPIRES 24 HRS AFTER PREP TIME AT ROOM TEMP No Longer Active 01/16/2017 [facility] Insulin, Aspart, Human Notes: Roll in palms of hands gently; Do not shake vigorously. (Same as: NovoLOG) "single patient use only" WASTE: F/P - Black; E - Municipal Trash Bin Stable for 28 days at room temperature. Expires in days from Date No Longer Active 01/16/2017 [facility] Dextrose 50% Syringe 12.5 gm, 25 mL, Route: IVP, Drug Form: INJ, Dosing Weight 52.273, kg, PRN, PRN Blood Glucose Results, Start date: 01/16/17 9:50:00 CDT, Duration: 30 day, Stop date: 02/15/17 9:49:00 CDT No Longer Active 01/16/2017 [facility] Glucagon 1 mg, Route: IM, Drug form: PDR/INJ, PRN, Dosing Weight 52.273, kg, PRN Blood Glucose Results, Start date: 01/16/17 9:50:00 CDT, Duration: 30 day, Stop date: 02/15/17 9:49:00 CDT No Longer Active 01/16/2017 [facility] Streptococcus pneumoniae serotype 1 caps ular antigen diphtheria [id number] protein conjugate vaccine / Streptococcus pneumoniae serotype 14 capsular antigen diphtheria [id number] protein conjugate vaccine / Streptococcus pneumoniae serotype 18C capsular antigen d Notes: Lightly roll vial (DO NOT SHAKE) before administration. (Same as: Prevnar 13) Inactive 01/16/2017 [facility] influenza virus vaccine, inactivated Notes: (Same as: Fluzone Quadrivalent, Fluarix Quadrivalent) For 3 years of age and older (0.5 mL IM) Shake well before use Inactive 01/16/2017 [facility] Rocephin Notes: (Same As: Vlad macedo). Use with 100 mL NS and infuse over 30 min MEDICATION WASTE Product Size: 1000 mg Product Wasted: ___ mg No Longer Active 01/16/2017 [facility] Acetaminophen 325 MG / Hydrocodone Norma trate 5 MG Oral Tablet Notes: (Same as: [place]urgis 325/5) Do not ex ceed 4gm/day of acetaminophen. No Longer Active 01/16/2017 [facility] Ondansetron Notes: (Same as: Tino robbins) MEDICATION WASTE Product Size: 4 mg Product Wasted: ___ mg No Longer Active 01/16/2017 [facility] Sodium Chloride 0.154 MEQ/ML Injectable Solution 1,000 mL, Rate: 100 ml/hr, Infuse over: 10 hr, Route: IV, Dosing Weight 52.273 kg, Total Volume: 1,000, Start date: 01/15/17 21:57:00 CDT, Duration: 30 day, Stop date: 02/14/17 21:56:00 CDT No Longer Active 01/16/2017 [facility] Saline Flush 0.9% Notes: (Same as: BD Posiflush) No Longer Active 01/16/2017 [facility] Tylenol Notes: Do not exceed 4 gm/day. (Same as: Tylenol) Inactive 01/15/2017 [facility] Sodium Chloride 0.154 MEQ/ML Injectable Solution 1,000 mL, 1,000 ml/hr, Infuse Over: 1 hr, Route: IV, 1,000, Drug form: INJ, ONCE, Priority: STAT, Dosing Weight 52.273 kg, Start date: 01/15/17 16:07:00 CDT, Duration: 1 doses or times, Stop date: 01/15/17 16:07:00 CDT Inactive 01/15/2017 [facility] Saline Flush 0.9% Notes: (Same as: BD Posiflush) No Longer Active 01/15/2017 [facility] Metformin hydrochloride 500 MG Oral Tablet Notes: (Same as: Glucophage) Take with meal Inactive 02/20/2016 [facility] nt Acetaminophen 325 MG / Hydrocodone Norma trate 5 MG Oral Tablet [Sturgis 5/325] 1 tab, PO, Q6H, PRN Pain Score 4-6, # 30 tab, 0 Refill(s) Active 02/20/2016 [facility] Lidocaine Hydrochloride 0.05 MG/MG Transdermal Patch 1 [...] (Same as: Pneumovax 23) Refrigerate Inactive 02/18/2016 [facility] Lidocaine Hydrochloride 0.05 MG/MG Transdermal Patch Notes: Apply only once for up to 12 hours in a 24-hour period (12 hours on and 12 hours off). (Same as: Lidoderm) "Remove old patch before application of new patch" No Longer Active 02/18/2016 [facility] Lisinopril Notes: (Same as: Pr inivil, Zestril) No Longer Active 02/18/2016 [facility] Saline Flush 0.9% Notes: (Same as: BD Posiflush) No Longer Active 02/18/2016 [facility] pneumococcal capsular polysaccharide typ e 1 vaccine / pneumococcal capsular polysaccharide type 10A vaccine / pneumococcal capsular polysaccharide type 11A vaccine / pneumococcal capsular polysaccharide type 12F vaccine / pneumococcal capsular polysacchar Notes: (Same as: Pneumovax 23) Refrigerate Inactive 02/18/2016 [facility] Acetaminophen 325 MG / Hydrocodone Norma trate 5 MG Oral Tablet [St[place]is 5/325] Notes: (Same as: Sturgis 325/5) Do not ex ceed 4gm/day of acetaminophen. No Longer Activ e 02/18/2016 [facility] Sodium Chloride 0.154 MEQ/ML Injectable Solution 1,000 mL, Rate: 125 ml/hr, Infuse over: 8 hr, Route: IV, Dosing Weight 46.364 kg, Total Volume: 1,000, Start date: 02/18/16 0:22:00 CDT, Duration: 30 day, Stop date: 03/19/16 0:21:00 CDT No Longer Active 02/18/2016 [facility] nter Lantus 50 unit, SUB-Q, Bedtime , 0 Refill(s) No Longer Active 02/18/2016 [facility] Humalog 30units, SUB-Q, Breakf ast, 0 Refill(s) No Longer Active 02/18/2016 [facility] Sodium Chloride 0.154 MEQ/ML Injectable Solution 125 mL, 125 ml/hr, Infuse Over: 1 hr, Route: IV, 125, Drug form: INJ, ONCE, Priority: STAT, Dosing Weight 52.273 kg, Start date: 02/17/16 21:43:00 CDT, Duration: 1 doses or times, Stop date: 02/17/16 21:43:00 CDT No Longer Active 02/18/2016 [facility] Insulin, Aspart, Human Notes: Roll in palms of hands gently; Do not shake vigorously. (Same as: NovoLOG) "single patient use only" WASTE: F/P - Black; E - Municipal Trash Bin Stable for 28 days at room temperature. Expires in days from Date No Longer Active 02/18/2016 [facility] Dextrose 50% Syringe 25 gm, 50 mL, Route: IVP, Drug Form: INJ, Dosing Weight 52.273, kg, PRN, PRN Blood Glucose Results, Start date: 02/17/16 21:22:00 CDT, Duration: 30 day, Stop date: 03/18/16 21:21:00 CDT No Longer Active 02/18/2016 [facility] Glucagon 1 mg, Route: IM, Drug form: PDR/INJ, PRN, Dosing Weight 52.273, kg, PRN Blood Glucose Results, Start date: 02/17/16 21:22:00 CDT, Duration: 30 day, Stop date: 03/18/16 21:21:00 CDT No Longer Active 02/18/2016 [facility] Saline Flush 0.9% Notes: (Same as: BD Posiflush) No Longer Active 02/18/2016 [facility] Morphine Notes: (Same as:MORPh ine Sulfate) No Longer Active 02/18/2016 [facility] Ondansetron Notes: (Same as: Tino robbins) MEDICATION WASTE Product Size: 4 mg Product Wasted: 0 mg No Longer Active 02/18/2016 [facility] BD Normal Saline Flush Notes: (Same as: BD Posiflush) No Longer Active 02/18/2016 [facility] Dilaudid Notes: Same as: Dilau did Inactive 02/17/2016 [facility] Isolyte S PH-7.4 (Bolus) IV No ariane: (Same as: Isolyte S PH 7.4) No Longer Active 02/17/2016 [facility] Insulin regular 60 units) W ASTE: F/P - Black; E - Municipal Trash Bin Stable for 28 days at room temperature Expires in days from Date Inactive 02/17/2016 [facility] nter Morphine 4 mg, Route: IVP, Patel g form: INJ, ONCE, Dosing Weight 52.273, kg, Priority: STAT, Start date: 02/17/16 16:18:00 CDT, Stop date: 02/17/16 16:18:00 CDT Inactive 02/17/2016 [facility] Insulin regular 60 units) W ASTE: F/P - Black; E - Municipal Trash Bin Stable for 28 days at room temperature Expires in days from Date Inactive 02/17/2016 [facility] nter Isolyte S PH-7.4 (Bolus) IV No ariane: (Same as: Isolyte S PH 7.4) Inactive 02/17/2016 [facility] Nitroglycerin 0.4 MG Sublingual Tablet Notes: (Same as:Nitroquick, Nitrostat) "Do Not Crush" Sublingual tablet Inactive 02/17/2016 [facility] Nitroglycerin 0.02 MG/MG Topical Ointment Notes: 1 gram is approximately 1 inch of nitroglycerin ointment (20 mg NTG per gram) (Same as:Nitro-Bid) Inactive 02/17/2016 [facility] Nitroglycerin 0.4 mg, Route: S L, ONCE, Dosing Weight 52.273, kg, Start date: 02/17/16 14:23:00 CDT, Stop date: 02/17/16 14:23:00 CDT Inactive 02/17/2016 [facility] Isolyte S PH-7.4 (Bolus) IV No ariane: (Same as: Isolyte S PH7.4) Inactive 02/17/2016 [facility] Morphine Notes: (Same as:MORPh ine Sulfate) Inactive 02/17/2016 [facility] Aspirin 324 mg, 4 tab, Route: PO, Drug form: CHEWTAB, ONCE, Dosing Weight 52.273, kg, Priority: STAT, Start date: 02/17/16 14:01:00 CDT, Stop date: 02/17/16 14:01:00 CDT Inactive 02/17/2016 [facility] nter Saline Flush 0.9% Notes: (Same as: BD Posiflush) No Longer Active 02/17/2016 [facility] Ibuprofen 400 MG Oral Tablet 4 00 mg = 1 tab, PO, Q4H, Pain, # 10 tab, 0 Refill(s) Active 07/19/2014 [facility] Diazepam 2 MG Oral Tablet [Valium] 2 mg = 1 tab, PO, QID, muscle spasm, # 7 tab, 0 Refill(s) Active 07/19/2014 [facility] Insulin, Regular, Pork Notes: (Same as: Humulin R and NovoLIN R) (Do not shake) No Longer Active 07/19/2014 [facility] Sodium Chloride 0.154 MEQ/ML Injectable Solution 1,000 mL, 1,000 ml/hr, Infuse Over: 1 hr, Route: IV, 1,000, Drug form: INJ, ONCE, Priority: STAT, Dosing Weight 52.273 kg, Start date: 07/18/14 22:27:00, Duration: 1 doses or times, Stop date: 07/18/14 22:27:00 Inactive 07/19/2014 [facility] Ibuprofen 600 mg, Route: PO, D rug form: TAB, ONCE, Dosing Weight 52.273, kg, Priority: STAT, Start date: 07/18/14 21:27:00, Stop date: 07/18/14 21:27:00 Inactive 07/19/2014 [facility] Valium 5 mg, Route: PO, ONCE, Dosing Weight 52.273, kg, Priority: STAT, Start date: 07/18/14 21:27:00, Stop date: 07/18/14 21:27:00 Inactive 07/19/2014 [facility] Allergies, Adverse Reactions, Alerts Substance Category Reaction Severity Reaction type Status Date Reported Comments Source No Known Medication Allergies Assertion Drug aller gy [facility] Immunizations Immunization Date Given Site Status Last Updated Comments Source pneumococcal 13-valent vaccine 01/16/2017 [facility], inactivated 01/16/2017 Right deltoid completed [facility] pneumococcal 23-valent vaccine 02/18/2016 Left Deltoid completed [facility] Results Order Name Results Value Reference Range Date Interpretation Comments Source CHEM PANEL Glucose Lvl 145 70 - 99 06/07/2020 [facility] CHEM PANEL BUN 32 7 - 22 06/07/2020 [facility] CHEM PANEL Creatinine Lvl 7.03 0.50 - 1.40 06/07/2020 [facility] CHEM PANEL Sodium Lvl 135 135 - 145 06/07/2020 [facility] CHEM PANEL Potassium Lvl 3.9 3.5 - 5.1 06/07/2020 [facility] CHEM PANEL Chloride Lvl 99 95 - 109 06/07/2020 [facility] CHEM PANEL CO2 28 24 - 32 06/07/2020 [facility] CHEM PANEL Calcium Lvl 8.9 8.5 - 10.5 06/07/2020 [facility] CHEM PANEL AGAP 11.9 10.0 - 20.0 06/07/2020 [facility] CHEM PANEL eGFR 5 06/07/2020 Result [...] should be multiplied by the estimated BMI. [facility] HEMATOLOGY WBC 5.0 3.7 - 10.4 06/07/2020 [facility] HEMATOLOGY RBC 3.44 4.20 - 5.40 06/07/2020 [facility] HEMATOLOGY Hgb 10.8 12.0 - 16.0 06/07/2020 [facility] HEMATOLOGY Hct 33.0 36.0 - 48.0 06/07/2020 [facility] HEMATOLOGY MCV 95.9 80.0 - 98.0 06/07/2020 [facility] HEMATOLOGY MCH 31.5 27.0 - 31.0 06/07/2020 [facility] HEMATOLOGY MCHC 32.8 32.0 - 36.0 06/07/2020 [facility] HEMATOLOGY RDW 14.4 11.5 - 14.5 06/07/[address] [facility] Platelet 147 133 - 450 06/07/[address] [facility] MPV 8.4 7.4 - 10.4 06/07/[address] [facility] Segs 51.1 45.0 - 75.0 06/07/2020 [facility] HEMATOLOGY Lymphocytes 25.1 20.0 - 40.0 06/07/2020 [facility] HEMATOLOGY Monocytes 11.4 2.0 - 12.0 06/07/2020 [facility] HEMATOLOGY Eosinophils 11.8 0.0 - 4.0 06/07/2020 [facility] HEMATOLOGY Basophils 0.6 0.0 - 1.0 06/07/2020 [facility] HEMATOLOGY Neutrophils # 2.6 1.5 - 8.1 06/07/2020 [facility] HEMATOLOGY Lymphocytes # 1.3 1.0 - 5.5 06/07/2020 [facility] HEMATOLOGY Monocytes # 0.6 0.0 - 0.8 06/07/2020 [facility] HEMATOLOGY Eosinophils # 0.6 0.0 - 0.5 06/07/2020 [facility] ENDOCRINOLOGY Prolactin Lvl 16 .2 06/04/2020 Result Comment: Reference Ra nge
Females
Non- 3.0-30.0
10.0-209.0
Postmenopausal 2.0-20.0

Lab test performed by:
[facility]
[address]
[place] [address]
GIANNA MCPHERSON MD [facility] CARDIAC ENZYMES Troponin-I <0.02 0.00 - 0.40 06/04/2020 [facility] CHEM PANEL Magnesium Lvl 2.4 1.8 - 2.4 06/03/2020 [facility] CHEM PANEL Phosphorus 2.8 2.5 - 4.5 06/03/2020 [facility] CHEM PANEL Glucose Lvl 72 70 - 99 06/02/2020 [facility] CHEM PANEL BUN 34 7 - 22 06/02/2020 [facility] CHEM PANEL Creatinine Lvl 5.25 0.50 - 1.40 06/02/2020 [facility] CHEM PANEL Sodium Lvl 139 135 - 145 06/02/2020 [facility] CHEM PANEL Potassium Lvl 4.4 3.5 - 5.1 06/02/2020 [facility] CHEM PANEL Chloride Lvl 101 95 - 109 06/02/2020 [facility] CHEM PANEL CO2 30 24 - 32 06/02/2020 [facility] CHEM PANEL Calcium Lvl 9.1 8.5 - 10.5 06/02/2020 [facility] CHEM PANEL Total Protein 8.4 6.4 - 8.4 06/02/2020 [facility] CHEM PANEL Albumin Lvl 3.5 3.5 - 5.0 06/02/2020 [facility] CHEM PANEL ALT 31 0 - 65 06/02/2020 [facility] CHEM PANEL AST 50 0 - 37 06/02/2020 [facility] CHEM PANEL Alk Phos 146 39 - 136 06/02/2020 [facility] CHEM PANEL Bili Total 0.8 0.2 - 1.3 06/02/2020 [facility] CHEM PANEL AGAP 12.4 10.0 - 20.0 06/02/2020 [facility] CHEM PANEL B/C Ratio 6 6 - 25 06/02/2020 [facility] CHEM PANEL Globulin 4.9 2.7 - 4.2 06/02/2020 [facility] CHEM PANEL A/G Ratio 0.7 0.7 - 1.6 06/02/2020 [facility] CHEM PANEL eGFR 8 06/02/2020 Result [...] should be multiplied by the estimated BMI. [facility] HEMATOLOGY WBC 5.5 3.7 - 10.4 06/02/2020 [facility] HEMATOLOGY RBC 3.40 4.20 - 5.40 06/02/2020 [facility] HEMATOLOGY Hgb 11.0 12.0 - 16.0 06/02/2020 [facility] HEMATOLOGY Hct 32.9 36.0 - 48.0 06/02/2020 [facility] HEMATOLOGY MCV 96.6 80.0 - 98.0 06/02/2020 [facility] HEMATOLOGY MCH 32.4 27.0 - 31.0 06/02/2020 [facility] HEMATOLOGY MCHC 33.5 32.0 - 36.0 06/02/2020 [facility] HEMATOLOGY RDW 14.6 11.5 - 14.5 06/02/2020 [facility] HEMATOLOGY Platelet 162 133 - 450 06/02/2020 [facility] HEMATOLOGY MPV 7.6 7.4 - 10.4 06/02/[address] [facility] Segs 61.9 45.0 - 75.0 06/02/2020 [facility] HEMATOLOGY Lymphocytes 19.9 20.0 - 40.0 06/02/2020 [facility] HEMATOLOGY Monocytes 10.0 2.0 - 12.0 06/02/2020 [facility] HEMATOLOGY Eosinophils 7.6 0.0 - 4.0 06/02/2020 [facility] HEMATOLOGY Basophils 0.6 0.0 - 1.0 06/02/[address] [facility] Neutrophils # 3.4 1.5 - 8.1 06/02/[address] [facility] Lymphocytes # 1.1 1.0 - 5.5 06/02/[address] [facility] Monocytes # 0.6 0.0 - 0.8 06/02/2020 [facility] HEMATOLOGY Eosinophils # 0.4 0.0 - 0.5 06/02/2020 [facility] IMMUNOLOGY RPR Non R eactive (06/02/20 8:43 AM) Non Reactive 06/02/2020 [facility] CHEM PANEL Glucose Lvl 67 70 - 99 06/01/2020 [facility] CHEM PANEL BUN 13 7 - 22 06/01/2020 [facility] CHEM PANEL Creatinine Lvl 3.20 0.50 - 1.40 06/01/2020 [facility] CHEM PANEL Sodium Lvl 140 135 - 145 06/01/2020 [facility] CHEM PANEL Potassium Lvl 3.9 3.5 - 5.1 06/01/2020 [facility] CHEM PANEL Chloride Lvl 102 95 - 109 06/01/2020 [facility] CHEM PANEL CO2 31 24 - 32 06/01/2020 [facility] CHEM PANEL AGAP 10.9 10.0 - 20.0 06/01/2020 [facility] CHEM PANEL Calcium Lvl 9.0 8.5 - 10.5 06/01/2020 [facility] CHEM PANEL eGFR 14 06/01/2020 Result [...] Eosinophils # 0.4 0.0 - 0.5 06/01/2020 [facility] IMMUNOLOGY Hep Bs Ag Negat zaria *NA* (05/31/20 12:10 PM) Negative 05/31/2020 [facility] CARDIAC ENZYMES Troponin-I <0.02 0.00 - 0.40 05/31/2020 [facility] CHEM PANEL Total Protein 8.4 6.4 - 8.4 05/31/2020 [facility] CHEM PANEL Albumin Lvl 3.5 3.5 - 5.0 05/31/2020 [facility] CHEM PANEL ALT 25 0 - 65 05/31/2020 [facility] CHEM PANEL AST 40 0 - 37 05/31/2020 [facility] CHEM PANEL Alk Phos 136 39 - 136 05/31/2020 [facility] CHEM PANEL Bili Total 0.7 0.2 - 1.3 05/31/2020 [facility] CHEM PANEL B/C Ratio 6 6 - 25 05/31/2020 [facility] CHEM PANEL Globulin 4.9 2.7 - 4.2 05/31/2020 [facility] CHEM PANEL A/G Ratio 0.7 0.7 - 1.6 05/31/2020 [facility] CHEM PANEL Ammonia 21.0 <=45.0 uMol/L 05/31/2020 [facility] DRUG SCREEN U Amph Scr Nega tive *NA* (05/31/20 8:32 AM) Negative 05/31/2020 [facility] DRUG SCREEN U Fariha Scr Nega tive *NA* (05/31/20 8:32 AM) Negative 05/31/2020 [facility] DRUG SCREEN U Benzodiaz Scr Nega tive *NA* (05/31/20 8:32 AM) Negative 05/31/2020 [facility] DRUG SCREEN U Cocaine Scr Nega tive *NA* (05/31/20 8:32 AM) Negative 05/31/2020 [facility] DRUG SCREEN U Cannab Scr Nega tive *NA* (05/31/20 8:32 AM) Negative 05/31/2020 [facility] DRUG SCREEN U Opiate Scr Nega tive *NA* (05/31/20 8:32 AM) Negative 05/31/2020 [facility] DRUG SCREEN U Phencyclidine Scr Nega tive *NA* (05/31/20 8:32 AM) Negative 05/31/2020 [facility] DRUG SCREEN UDS Note See Note *NA* (05/31/20 8:32 AM) 05/31/2020 [facility] HEMATOLOGY PT 14.4 12.0 - 14.7 05/31/2020 [facility] HEMATOLOGY INR 1.11 0.85 - 1.17 05/31/2020 [facility] HEMATOLOGY PTT 31.2 22.9 - 35.8 05/31/2020 [facility] SPECIAL CHEMISTRY Hgb A1C <3.5 % <=5.6 % 05/31/2020 [facility] TOXICOLOGY Ethanol Lvl <3 05/31/2020 [facility] TOXICOLOGY Etoh (%) <0.003 05/31/2020 [facility] URINE AND STOOL UA Color Yellow *NA* (05/31/20 8:32 AM) Yellow 05/31/2020 [facility] URINE AND STOOL UA Turbidity Clear (05/31/20 8:32 AM) Clear 05/31/2020 [facility] URINE AND STOOL UA Spec Grav 1.015 <=1.030 05/31/2020 [facility] URINE AND STOOL UA pH 8.5 5.0 - 8.0 05/31/2020 [facility] URINE AND STOOL UA Protein 100 mg/dL Negative mg/dL 05/31/2020 [facility] URINE AND STOOL UA Glucose Negative (05/31/20 8:32 AM) Negative 05/31/2020 [facility] URINE AND STOOL UA Ketones Negative *NA* (05/31/20 8:32 AM) Negative 05/31/2020 [facility] URINE AND STOOL UA Bili Negative *NA* (05/31/20 8:32 AM) Negative 05/31/2020 [facility] URINE AND STOOL UA Blood Negative (05/31/20 8:32 AM) Negative 05/31/2020 [facility] URINE AND STOOL UA Urobilinogen 0.2 0.1 - 1.0 05/31/2020 [facility] URINE AND STOOL UA Nitrite Negative (05/31/20 8:32 AM) Negative 05/31/2020 [facility] URINE AND STOOL UA Leuk Est Negative (05/31/20 8:32 AM) Negative 05/31/2020 [facility] URINE AND STOOL UA Sq Epi None Seen (05/31/20 8:32 AM) Few 05/31/2020 [facility] HEMATOLOGY Segs 65.7 45.0 - 75.0 05/24/2020 [facility] HEMATOLOGY Lymphocytes 20.1 20.0 - 40.0 05/24/2020 [facility] HEMATOLOGY Monocytes 9.2 2.0 - 12.0 05/24/2020 [facility] HEMATOLOGY Eosinophils 4.5 0.0 - 4.0 05/24/2020 [facility] HEMATOLOGY Basophils 0.5 0.0 - 1.0 05/24/2020 [facility] HEMATOLOGY Neutrophils # 4.9 1.5 - 8.1 05/24/2020 [facility] HEMATOLOGY Lymphocytes # 1.5 1.0 - 5.5 05/24/2020 [facility] HEMATOLOGY Monocytes # 0.7 0.0 - 0.8 05/24/2020 [facility] HEMATOLOGY Eosinophils # 0.3 0.0 - 0.5 05/24/[address] [facility] Macrocyte 1+ *ABN* (05/24/20 4:28 AM) None Seen 05/24/2020 [facility] HEMATOLOGY WBC 7.4 3.7 - 10.4 [...] Hospital MPV 8.3 7.4 - 10.4 05/24/2020 [facility] CARDIAC ENZYMES Troponin-I <0.02 0.00 - 0.40 05/24/2020 [facility] SPECIAL CHEMISTRY Hgb A1C 5.0 <=5.6 % 05/24/2020 [facility] IMMUNOLOGY Coronavirus (COVID-19) NA A Not Detected (05/23/20 8:51 PM) Not Detected 05/24/2020 [facility] URINE AND STOOL UA Turbidity Slight *ABN* (05/23/20 2:19 PM) Clear 05/23/2020 [facility] URINE AND STOOL UA Spec Grav 1.025 <=1.030 05/23/2020 [facility] URINE AND STOOL UA pH 5.0 5.0 - 8.0 05/23/2020 [facility] URINE AND STOOL UA Protein 100 mg/dL Negative mg/dL 05/23/2020 [facility] URINE AND STOOL UA Glucose Negative mg/dL Negative mg/dL 05/23/2020 [facility] URINE AND STOOL UA Ketones Negative mg/dL Negative mg/dL 05/23/2020 [facility] URINE AND STOOL UA Bili Negative *NA* (05/23/20 2:19 PM) Negative 05/23/2020 [facility] URINE AND STOOL UA Blood Moderate *ABN* (05/23/20 2:19 PM) Negative 05/23/2020 [facility] URINE AND STOOL UA Urobilinogen 4.0 0.1 - 1.0 05/23/2020 [facility] URINE AND STOOL UA Nitrite Negative (05/23/20 2:19 PM) Negative 05/23/2020 [facility] URINE AND STOOL UA Leuk Est Negative (05/23/20 2:19 PM) Negative 05/23/2020 [facility] URINE AND STOOL UA Sq Epi Many /LPF Few /LPF 05/23/2020 [facility] URINE AND STOOL UA WBC 3 0 - 5 05/23/2020 [facility] URINE AND STOOL UA RBC 6 0 - 2 05/23/2020 [facility] URINE AND STOOL UA Bacteria Occasional /HPF None Seen /HPF 05/23/[address] [facility] [address] URINE AND STOOL UA Mucus Few /LPF None Seen /LPF 05/23/2020 [facility] URINE AND STOOL UA Color Renate 05/23/2020 [facility] CARDIAC ENZYMES Troponin-I <0.02 0.00 - 0.40 05/23/2020 [facility] CHEM PANEL Glucose Lvl 178 70 - 99 05/23/2020 [facility] CHEM PANEL BUN 49 7 - 22 05/23/2020 [facility] CHEM PANEL Creatinine Lvl 6.01 0.50 - 1.40 05/23/2020 [facility] CHEM PANEL Sodium Lvl 135 135 - 145 05/23/2020 [facility] CHEM PANEL Potassium Lvl 4.9 3.5 - 5.1 05/23/2020 [facility] CHEM PANEL Chloride Lvl 102 95 - 109 05/23/2020 [facility] CHEM PANEL CO2 28 24 - 32 05/23/2020 [facility] CHEM PANEL Calcium Lvl 9.1 8.5 - 10.5 05/23/2020 [facility] CHEM PANEL Total Protein 8.4 6.4 - 8.4 05/23/2020 [facility] CHEM PANEL Albumin Lvl 3.5 3.5 - 5.0 05/23/2020 [facility] CHEM PANEL ALT 22 0 - 65 05/23/2020 [facility] CHEM PANEL AST 35 0 - 37 05/23/2020 [facility] CHEM PANEL Alk Phos 137 39 - 136 05/23/2020 [facility] CHEM PANEL Bili Total 0.6 0.2 - 1.3 05/23/2020 [facility] CHEM PANEL AGAP 9.9 10.0 - 20.0 05/23/2020 [facility] CHEM PANEL B/C Ratio 8 6 - 25 05/23/2020 [facility] CHEM PANEL Globulin 4.9 2.7 - 4.2 05/23/2020 [facility] CHEM PANEL A/G Ratio 0.7 0.7 - 1.6 05/23/2020 [facility] CHEM PANEL eGFR 7 05/23/2020 Result [...] should be multiplied by the estimated BMI. [facility] HEMATOLOGY WBC 11.3 3.7 - 10.4 05/23/2020 [facility] HEMATOLOGY RBC 3.17 4.20 - 5.40 05/23/2020 [facility] HEMATOLOGY Hgb 10.4 12.0 - 16.0 05/23/2020 [facility] HEMATOLOGY Hct 32.0 36.0 - 48.0 05/23/2020 [facility] HEMATOLOGY MCV 101.1 80.0 - 98.0 05/23/[address] [facility] MCH 32.9 27.0 - 31.0 05/23/[address] [facility] MCHC 32.5 32.0 - 36.0 05/23/[address] [facility] RDW 15.0 11.5 - 14.5 05/23/[address] [facility] Platelet 141 133 - 450 05/23/2020 [facility] HEMATOLOGY MPV 8.5 7.4 - 10.4 05/23/2020 [facility] HEMATOLOGY Segs 80.7 45.0 - 75.0 05/23/2020 [facility] HEMATOLOGY Lymphocytes 8.7 20.0 - 40.0 05/23/2020 [facility] HEMATOLOGY Monocytes 8.1 2.0 - 12.0 05/23/2020 [facility] HEMATOLOGY Eosinophils 2.4 0.0 - 4.0 05/23/2020 [facility] HEMATOLOGY Basophils 0.1 0.0 - 1.0 05/23/2020 [facility] HEMATOLOGY Neutrophils # 9.1 1.5 - 8.1 05/23/2020 [facility] HEMATOLOGY Lymphocytes # 1.0 1.0 - 5.5 05/23/2020 [facility] HEMATOLOGY Monocytes # 0.9 0.0 - 0.8 05/23/2020 [facility] HEMATOLOGY Eosinophils # 0.3 0.0 - 0.5 05/23/2020 [facility] HEMATOLOGY Macrocyte 1+ *ABN* (05/23/20 11:55 AM) None Seen 05/23/2020 [facility] CARDIAC ENZYMES Troponin-I <0.02 0.00 - 0.40 12/30/2019 [facility] CHEM PANEL Glucose Lvl 210 70 - 99 12/30/2019 [facility] CHEM PANEL BUN 25 7 - [...] PANEL AGAP 10.4 10.0 - 20.0 12/30/2019 [facility] CHEM PANEL B/C Ratio 6 6 - 25 12/30/2019 [facility] CHEM PANEL Globulin 5.6 2.7 - 4.2 12/30/2019 [facility] CHEM PANEL A/G Ratio 0.6 0.7 - 1.6 12/30/2019 [facility] CHEM PANEL eGFR 10 12/30/2019 Result [...] should be multiplied by the estimated BMI. [facility] CHEM PANEL Magnesium Lvl 2.2 1.8 - 2.4 12/30/2019 [facility] CHEM PANEL Phosphorus 4.4 2.5 - 4.5 12/30/2019 [facility] HEMATOLOGY WBC 5.2 3.7 - 10.4 12/30/2019 [facility] HEMATOLOGY RBC 4.20 4.20 - 5.40 12/30/2019 [facility] HEMATOLOGY Hgb 13.7 12.0 - 16.0 12/30/2019 [facility] HEMATOLOGY Hct 41.8 36.0 - 48.0 12/30/2019 [facility] HEMATOLOGY MCV 99.4 80.0 - 98.0 12/30/2019 [facility] HEMATOLOGY MCH 32.6 27.0 - 31.0 [...] HEMATOLOGY PTT 31.1 22.9 - 35.8 12/30/2019 [facility] HEMATOLOGY Segs 54.8 45.0 - 75.0 12/30/2019 [facility] HEMATOLOGY Lymphocytes 22.6 20.0 - 40.0 12/30/2019 [facility] HEMATOLOGY Monocytes 9.7 2.0 - 12.0 12/30/2019 [facility] HEMATOLOGY Eosinophils 12.4 0.0 - 4.0 12/30/2019 [facility] HEMATOLOGY Basophils 0.5 0.0 - 1.0 12/30/2019 [facility] HEMATOLOGY Neutrophils # 2.9 1.5 - 8.1 12/30/2019 [facility] HEMATOLOGY Lymphocytes # 1.2 1.0 - 5.5 12/30/2019 [facility] HEMATOLOGY Monocytes # 0.5 0.0 - 0.8 12/30/2019 [facility] HEMATOLOGY Eosinophils # 0.6 0.0 - 0.5 12/30/2019 [facility] HEMATOLOGY Macrocyte 1+ *ABN* (12/30/19 11:31 [...] Bili Total 0.6 0.2 - 1.3 12/11/2019 [facility] CHEM PANEL AGAP 9.7 10.0 - 20.0 12/11/2019 [facility] CHEM PANEL B/C Ratio 4 6 - 25 12/11/2019 [facility] CHEM PANEL Globulin 5.2 2.7 - 4.2 12/11/2019 [facility] CHEM PANEL A/G Ratio 0.6 0.7 - 1.6 12/11/2019 [facility] CHEM PANEL eGFR 9 12/11/2019 Result [...] should be multiplied by the estimated BMI. [facility] CHEM PANEL Lipase Lvl 95 73 - 393 12/11/2019 [facility] HEMATOLOGY WBC 4.7 3.7 - 10.4 12/11/2019 [facility] HEMATOLOGY RBC 3.46 4.20 - 5.40 12/11/2019 [facility] HEMATOLOGY Hgb 11.2 12.0 - 16.0 12/11/2019 [facility] HEMATOLOGY Hct 33.8 36.0 - 48.0 12/11/2019 [facility] HEMATOLOGY MCV 97.7 80.0 - 98.0 12/11/2019 [facility] HEMATOLOGY MCH 32.3 27.0 - 31.0 [...] should be multiplied by the estimated BMI. [facility] HEMATOLOGY PT 13.2 12.0 - 14.7 [...] HEMATOLOGY Eosinophils 10.3 0.0 - 4.0 11/25/2019 [facility] HEMATOLOGY Basophils 0.6 0.0 - 1.0 11/25/2019 [facility] HEMATOLOGY Neutrophils # 2.0 1.5 - 8.1 11/25/2019 [facility] HEMATOLOGY Lymphocytes # 1.1 1.0 - 5.5 11/25/2019 [facility] HEMATOLOGY Monocytes # 0.5 0.0 - 0.8 11/25/2019 [facility] HEMATOLOGY Eosinophils # 0.4 0.0 - 0.5 11/25/2019 [facility] CHEM PANEL Total Protein 8.2 6.4 - 8.4 11/24/2019 [facility] CHEM PANEL Albumin Lvl 3.2 3.5 - 5.0 11/24/2019 [facility] CHEM PANEL ALT 18 0 - 65 11/24/2019 [facility] CHEM PANEL AST 29 0 - 37 11/24/2019 [facility] CHEM PANEL Alk Phos 155 39 - 136 11/24/2019 [facility] CHEM PANEL Bili Total 0.3 0.2 - 1.3 11/24/2019 [facility] CHEM PANEL Bili Direct 0.2 0.0 - 0.3 11/24/2019 [facility] CHEM PANEL Globulin 5.0 2.7 - 4.2 11/24/2019 [facility] CHEM PANEL A/G Ratio 0.6 0.7 - 1.6 11/24/2019 [facility] CHEM PANEL Bili Indirect 0.1 0.0 - 1.0 11/24/2019 [facility] CHEM PANEL Ammonia 39.0 <=45.0 uMol/L 11/24/2019 [facility] Hep Bs Ag Negat zaria *NA* (11/23/19 7:37 PM) Negative 11/24/2019 [facility] IMMUNOLOGY Hep B Core IgM Negat zaria *NA* (11/23/19 7:37 PM) Negative 11/24/2019 [facility] Hep A IgM Negat zaria *NA* (11/23/19 7:37 PM) Negative 11/24/2019 [facility] Hep C Ab Posit zaria *ABN* (11/23/19 7:37 PM) Negative 11/24/2019 [facility] HCV Genotype 2b 11/24/2019 [facility] HCV Genotype Comment Comm ent 11/24/2019 Result [...] investigational or for research.
Performed At: [facility]
[id number], [place] [id number]
Raheel Melendez MD Ph:[phone] [facility] MOLECULAR DIAGNOSTIC HCV RNA VirLoad [id number] 11/24/2019 [facility] MOLECULAR DIAGNOSTIC HCV RNA Log10 6.0 11/24/2019 [facility] TUMOR MARKERS AFP 1.9 0.0 - 11.0 11/24/2019 [facility] CHEM PANEL Glucose Lvl 188 70 - 99 11/22/2019 [facility] CHEM PANEL BUN 18 7 - 22 11/22/2019 [facility] CHEM PANEL Creatinine Lvl 5.15 0.50 - 1.40 11/22/2019 [facility] CHEM PANEL Sodium Lvl 136 135 - 145 11/22/2019 [facility] CHEM PANEL Potassium Lvl 3.7 3.5 - 5.1 11/22/2019 [facility] CHEM PANEL Chloride Lvl 99 95 - 109 11/22/2019 [facility] CHEM PANEL CO2 30 24 - 32 11/22/2019 [facility] CHEM PANEL Calcium Lvl 9.0 8.5 - 10.5 11/22/2019 [facility] CHEM PANEL AGAP 10.7 10.0 - 20.0 11/22/2019 [facility] CHEM PANEL eGFR 8 11/22/2019 Result [...] *ABN* (11/22/19 12:32 PM) None Seen 11/22/2019 [facility] IMMUNOLOGY Hep Bs Ag Negat zaria *NA* (11/21/19 5:19 PM) Negative 11/21/2019 [facility] MOLECULAR DIAGNOSTIC Source Respirat ory Panel PCR Nasophrngl Swb *NA* (11/21/19 3:28 PM) 11/21/2019 [facility] MOLECULAR DIAGNOSTIC Influenza A PCR Negative *NA* (11/21/19 3:28 PM) Negative 11/21/2019 [facility] MOLECULAR DIAGNOSTIC Influenza B PCR Negative *NA* (11/21/19 3:28 PM) Negative 11/21/2019 [facility] MOLECULAR DIAGNOSTIC RSV PCR Negative *NA* (11/21/19 3:28 PM) Negative 11/21/2019 [facility] CARDIAC ENZYMES Total CK 89 12 - 191 11/21/2019 [facility] CARDIAC ENZYMES Troponin-I <0.02 0.00 - 0.40 11/21/2019 [facility] CHEM PANEL Glucose Lvl 117 70 - 99 11/21/2019 [facility] CHEM PANEL BUN 26 7 - 22 11/21/2019 [facility] CHEM PANEL Creatinine Lvl 6.19 0.50 - 1.40 11/21/2019 [facility] CHEM PANEL Sodium Lvl 137 135 - 145 11/21/2019 [facility] CHEM PANEL Potassium Lvl 4.5 3.5 - 5.1 11/21/2019 [facility] CHEM PANEL Chloride Lvl 99 95 - 109 11/21/2019 [facility] CHEM PANEL CO2 32 24 - 32 11/21/2019 [facility] CHEM PANEL Calcium Lvl 9.1 8.5 - 10.5 11/21/2019 [facility] CHEM PANEL Total Protein 9.1 6.4 - 8.4 11/21/2019 [facility] CHEM PANEL Albumin Lvl 3.7 3.5 - 5.0 11/21/2019 [facility] CHEM PANEL ALT 27 0 - 65 11/21/2019 [facility] CHEM PANEL AST 51 0 - 37 11/21/2019 [facility] CHEM PANEL Alk Phos 171 39 - 136 11/21/2019 [facility] CHEM PANEL Bili Total 0.6 0.2 - 1.3 11/21/2019 [facility] CHEM PANEL AGAP 10.5 10.0 - 20.0 11/21/2019 [facility] CHEM PANEL B/C Ratio 4 6 - 25 11/21/2019 [facility] CHEM PANEL Globulin 5.4 2.7 - 4.2 11/21/2019 [facility] CHEM PANEL A/G Ratio 0.7 0.7 - 1.6 11/21/2019 [facility] CHEM PANEL eGFR 6 11/21/2019 Result [...] should be multiplied by the estimated BMI. [facility] CHEM PANEL Ammonia 34.0 <=45.0 uMol/L 11/21/2019 [facility] CHEM PANEL Lactic Acid Lvl 1.2 [...] HEMATOLOGY Monocytes 9.2 2.0 - 12.0 11/21/2019 [facility] HEMATOLOGY Eosinophils 5.9 0.0 - 4.0 11/21/2019 [facility] HEMATOLOGY Basophils 0.7 0.0 - 1.0 11/21/2019 [facility] HEMATOLOGY Neutrophils # 4.8 1.5 - 8.1 11/21/2019 [facility] HEMATOLOGY Lymphocytes # 1.6 1.0 - 5.5 11/21/2019 [facility] HEMATOLOGY Monocytes # 0.7 0.0 - 0.8 11/21/2019 [facility] HEMATOLOGY Eosinophils # 0.4 0.0 - 0.5 11/21/2019 [facility] HEMATOLOGY Basophils # 0.1 0.0 - 0.2 11/21/2019 [facility] HEMATOLOGY Large Plt slight 11/21/2019 [facility] IMIPENEM:SUSC:PT:ISOLATE:ORDQN:RHONDA C ulture: Urine 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 Escherichia coli 11/21/2019 [facility] IMIPENEM:SUSC:PT:ISOLATE:ORDQN:RHONDA E scherichia coli Escherichia coli 11/21/2019 [facility] URINE AND STOOL UA Color Yellow *NA* (11/21/19 10:14 AM) Yellow 11/21/2019 [facility] URINE AND STOOL UA Turbidity Marked *ABN* (11/21/19 10:14 AM) Clear 11/21/2019 [facility] URINE AND STOOL UA Spec Grav 1.023 <=1.030 11/21/2019 [facility] URINE AND STOOL UA pH 6.0 5.0 - 8.0 11/21/2019 [facility] URINE AND STOOL UA Protein 100 mg/dL Negative mg/dL 11/21/2019 [facility] URINE AND STOOL UA Glucose Negative mg/dL Negative mg/dL 11/21/[address] [facility] [address] URINE AND STOOL UA Ketones Negative mg/dL Negative mg/dL 11/21/[address] [facility] [address] URINE AND STOOL UA Bili Negative [...] Sq Epi Few /LPF Few /LPF 11/21/2019 [facility] URINE AND STOOL UA WBC >182 0 - 5 11/21/2019 [facility] URINE AND STOOL UA RBC 18 0 - 2 11/21/2019 [facility] URINE AND STOOL UA Bacteria Moderate /HPF None Seen /HPF 11/21/2019 [facility] URINE AND STOOL UA Mucus Moderate /LPF None Seen /LPF 11/21/2019 [facility] URINE AND STOOL UA [place] Yeast Few /HPF None Seen /HPF 11/21/2019 [facility] URINE AND STOOL UA Urobilinogen <=1.0 mg/dL 0.1 - 1.0 11/21/[address] [facility] [address] CARDIAC ENZYMES Total CK 82 12 - 191 09/03/2019 [facility] CARDIAC ENZYMES Troponin-I <0.02 0.00 - 0.40 09/03/2019 [facility] CHEM PANEL Glucose Lvl 172 70 - 99 09/03/2019 [facility] CHEM PANEL BUN 27 7 - 22 09/03/2019 [facility] CHEM PANEL Creatinine Lvl 5.43 0.50 - 1.40 09/03/2019 [facility] CHEM PANEL Sodium Lvl 138 135 - 145 09/03/2019 [facility] CHEM PANEL Potassium Lvl 4.7 3.5 - 5.1 09/03/2019 [facility] CHEM PANEL Chloride Lvl 100 95 - 109 09/03/2019 [facility] CHEM PANEL CO2 33 24 - 32 09/03/2019 [facility] CHEM PANEL Calcium Lvl 8.8 8.5 - 10.5 09/03/2019 [facility] CHEM PANEL Total Protein 8.5 6.4 - 8.4 09/03/2019 [facility] CHEM PANEL Albumin Lvl 3.4 3.5 - 5.0 09/03/2019 [facility] CHEM PANEL ALT 17 0 - 65 09/03/2019 [facility] CHEM PANEL AST 42 0 - 37 09/03/2019 [facility] CHEM PANEL Alk Phos 191 39 - 136 09/03/2019 [facility] CHEM PANEL Bili Total 0.7 0.2 - 1.3 09/03/2019 [facility] CHEM PANEL eGFR 8 09/03/2019 Result [...] should be multiplied by the estimated BMI. [facility] CHEM PANEL AGAP 9.7 10.0 - 20.0 09/03/2019 [facility] CHEM PANEL B/C Ratio 5 6 - 25 09/03/2019 [facility] CHEM PANEL Globulin 5.1 2.7 - 4.2 09/03/2019 [facility] CHEM PANEL A/G Ratio 0.7 0.7 [...] HEMATOLOGY MCV 99.5 80.0 - 98.0 09/03/2019 [facility] HEMATOLOGY MCH 33.0 27.0 - 31.0 09/03/2019 [facility] HEMATOLOGY MCHC 33.2 32.0 - 36.0 09/03/2019 [facility] HEMATOLOGY RDW 14.2 11.5 - 14.5 09/03/2019 [facility] HEMATOLOGY Platelet 104 133 - 450 09/03/2019 [facility] HEMATOLOGY MPV 9.4 7.4 - 10.4 09/03/2019 [facility] HEMATOLOGY PT 13.1 12.0 - 14.7 09/03/2019 [facility] HEMATOLOGY PTT 31.9 22.9 - 35.8 09/03/2019 [facility] HEMATOLOGY INR 1.01 0.85 - 1.17 09/03/2019 [facility] URINE AND STOOL UA Bili Negative *NA* (04/03/19 8:02 PM) Negative 04/04/2019 [facility] URINE AND STOOL UA Blood Negative (04/03/19 8:02 PM) Negative 04/04/2019 [facility] URINE AND STOOL UA Ketones Negative mg/dL Negative mg/dL 04/04/2019 [facility] URINE AND STOOL UA Bacteria Occasional /HPF None Seen /HPF 04/04/2019 [facility] URINE AND STOOL UA WBC 9 0 - 5 04/04/2019 [facility] URINE AND STOOL UA Leuk Est Negative (04/03/19 8:02 PM) Negative 04/04/2019 [facility] URINE AND STOOL UA Sq Epi None Seen 04/04/2019 [facility] URINE AND STOOL UA Nitrite Negative (04/03/19 8:02 PM) Negative 04/04/2019 [facility] URINE AND STOOL UA Urobilinogen <=1.0 mg/dL 0.1 - 1.0 04/04/2019 [facility] URINE AND STOOL UA pH 8.0 5.0 - 8.0 04/04/2019 [facility] URINE AND STOOL UA Protein 100 mg/dL Negative mg/dL 04/04/2019 [facility] URINE AND STOOL UA Glucose 50 mg/dL Negative mg/dL 04/04/2019 [facility] URINE AND STOOL UA Color Yellow *NA* (04/03/19 8:02 PM) Yellow 04/04/2019 [facility] URINE AND STOOL UA Spec Grav 1.013 <=1.030 04/04/2019 [facility] URINE AND STOOL UA Turbidity Clear (04/03/19 8:02 PM) Clear 04/04/2019 [facility] IMMUNOLOGY Hep Bs Ag Negat zaria *NA* (04/03/19 7:10 PM) Negative 04/04/2019 [facility] CHEM PANEL Lactic Acid Lvl 1.3 0.5 - 2.2 04/03/2019 [facility] CARDIAC ENZYMES Total CK 69 12 - 191 04/03/2019 [facility] CARDIAC ENZYMES Troponin-I <0.02 0.00 - 0.40 04/03/2019 [facility] CHEM PANEL eGFR 6 04/03/2019 Result [...] should be multiplied by the estimated BMI. [facility] CHEM PANEL Albumin Lvl 3.0 3.5 - 5.0 04/03/2019 [facility] CHEM PANEL Total Protein 9.1 6.4 - 8.4 04/03/2019 [facility] CHEM PANEL B/C Ratio 6 6 - 25 04/03/2019 [facility] CHEM PANEL Calcium Lvl 8.7 8.5 - 10.5 04/03/2019 [facility] CHEM PANEL AGAP 16.4 10.0 - 20.0 04/03/2019 [facility] CHEM PANEL Chloride Lvl 99 95 - 109 04/03/2019 [facility] CHEM PANEL CO2 27 24 - 32 04/03/2019 [facility] CHEM PANEL Bili Total 0.5 0.2 - 1.3 04/03/2019 [facility] CHEM PANEL Alk Phos 278 39 - 136 04/03/2019 [facility] CHEM PANEL AST 41 0 - 37 04/03/2019 [facility] CHEM PANEL ALT 6 0 - 65 04/03/2019 [facility] CHEM PANEL Globulin 6.1 2.7 - 4.2 04/03/2019 [facility] CHEM PANEL A/G Ratio 0.5 0.7 - 1.6 04/03/2019 [facility] CHEM PANEL Sodium Lvl 137 135 - 145 04/03/2019 [facility] CHEM PANEL Creatinine Lvl 6.76 0.50 - 1.40 04/03/2019 [facility] CHEM PANEL BUN 39 7 - 22 04/03/2019 [facility] CHEM PANEL Glucose Lvl 105 70 - 99 04/03/2019 [facility] CHEM PANEL Potassium Lvl 5.4 3.5 - 5.1 04/03/2019 [facility] HEMATOLOGY Basophils # 0.1 0.0 - 0.2 04/03/2019 [facility] HEMATOLOGY Eosinophils # 0.2 0.0 - 0.5 04/03/2019 [facility] HEMATOLOGY Lymphocytes # 2.0 1.0 - 5.5 04/03/2019 [facility] HEMATOLOGY Monocytes # 0.8 0.0 - 0.8 04/03/2019 [facility] HEMATOLOGY Basophils 1.2 0.0 - 1.0 04/03/2019 [facility] HEMATOLOGY Eosinophils 1.4 0.0 - 4.0 04/03/2019 [facility] HEMATOLOGY Monocytes 6.6 2.0 - 12.0 04/03/2019 [facility] HEMATOLOGY Segs 75.3 45.0 - 75.0 04/03/2019 [facility] HEMATOLOGY Lymphocytes 15.5 20.0 - 40.0 [...] HEMATOLOGY WBC 12.6 3.7 - 10.4 04/03/2019 [facility] HEMATOLOGY RBC 4.08 4.20 - 5.40 04/03/2019 [facility] HEMATOLOGY PT 13.7 12.0 - 14.7 04/03/2019 [facility] HEMATOLOGY INR 1.07 0.85 - 1.17 04/03/2019 [facility] CHEM PANEL Magnesium Lvl 2.2 1.8 - 2.4 03/10/2019 [facility] CHEM PANEL Phosphorus 3.8 2.5 - 4.5 03/10/2019 [facility] CHEM PANEL eGFR 6 03/10/2019 Result [...] should be multiplied by the estimated BMI. [facility] CHEM PANEL CO2 27 24 - 32 03/10/2019 [facility] CHEM PANEL Calcium Lvl 8.5 8.5 - 10.5 03/10/2019 [facility] [facility] CHEM PANEL Chloride Lvl 96 95 - 109 03/10/2019 [facility] CHEM PANEL Potassium Lvl 3.9 3.5 - 5.1 03/10/2019 [facility] CHEM PANEL Creatinine Lvl 6.53 0.50 - 1.40 03/10/2019 [facility] CHEM PANEL Glucose Lvl 241 70 - 99 03/10/2019 [facility] CHEM PANEL Sodium Lvl 135 135 - 145 03/10/2019 [facility] CHEM PANEL BUN 36 7 - 22 03/10/2019 [facility] CHEM PANEL AGAP 15.9 10.0 - 20.0 03/10/2019 [facility] HEMATOLOGY Platelet 139 133 - 450 03/10/2019 [facility] HEMATOLOGY MPV 8.7 7.4 - 10.4 [...] Hospital Hgb 10.9 12.0 - 16.0 03/10/2019 [facility] PARATHYROID PROFILE Ca Norm WB 1.06 1.05 - 1.25 03/10/2019 [facility] PARATHYROID PROFILE Ca Ion WB 1.04 1.05 - 1.25 03/10/2019 [facility] ELECTROLYTES Potassium Lvl 3.9 3.5 - 5.1 03/08/2019 [facility] ELECTROLYTES Calcium Lvl 8.4 8.5 - 10.5 03/08/2019 [facility] ELECTROLYTES AGAP 16.9 10.0 - 20.0 03/08/2019 [facility] ELECTROLYTES Chloride Lvl 100 95 - 109 03/08/2019 [facility] ELECTROLYTES CO2 23 24 - 32 03/08/2019 [facility] ELECTROLYTES Glucose Lvl 131 70 - 99 03/08/2019 [facility] ELECTROLYTES BUN 32 7 - 22 03/08/2019 [facility] Creatinine Lvl 5.4 5 0.50 - 1.40 03/08/2019 [facility] ELECTROLYTES Sodium Lvl 136 135 - 145 03/08/2019 [facility] ELECTROLYTES eGFR 8 03/08/2019 Result Comment: [...] should be multiplied by the estimated BMI. [facility] HEMATOLOGY Monocytes # 0.8 0.0 - 0.8 03/08/2019 [facility] HEMATOLOGY Eosinophils # 0.3 0.0 - 0.5 03/08/2019 [facility] HEMATOLOGY Lymphocytes # 1.3 1.0 - 5.5 03/08/2019 [facility] HEMATOLOGY Eosinophils 3.5 0.0 - 4.0 03/08/2019 [facility] HEMATOLOGY Neutrophils # 5.4 1.5 - 8.1 03/08/2019 [facility] HEMATOLOGY Monocytes 10.3 2.0 - 12.0 03/08/2019 [facility] HEMATOLOGY Basophils 0.5 0.0 - 1.0 03/08/[address] [facility] Segs 68.7 45.0 - 75.0 03/08/[address] [facility] Lymphocytes 17.0 20.0 - 40.0 03/08/2019 [facility] HEMATOLOGY Hct 34.4 36.0 - 48.0 [...] Hospital MCH 29.2 27.0 - 31.0 03/08/2019 [facility] HEMATOLOGY WBC 7.9 3.7 - 10.4 03/08/2019 [facility] CHEM PANEL Magnesium Lvl 2.2 1.8 - 2.4 03/06/2019 [facility] ELECTROLYTES AGAP 9.7 10.0 - 20.0 03/06/2019 [facility] ELECTROLYTES eGFR 8 03/06/2019 Result Comment: [...] should be multiplied by the estimated BMI. [facility] ELECTROLYTES CO2 29 24 - 32 03/06/2019 [facility] ELECTROLYTES Calcium Lvl 8.9 8.5 - 10.5 03/06/2019 [facility] ELECTROLYTES Potassium Lvl 4.7 3.5 - 5.1 03/06/2019 [facility] ELECTROLYTES Chloride Lvl 101 95 - 109 03/06/2019 [facility] ELECTROLYTES Creatinine Lvl 5.2 4 0.50 - 1.40 03/06/2019 [facility] ELECTROLYTES Sodium Lvl 135 135 - 145 03/06/2019 [facility] ELECTROLYTES Glucose Lvl 119 70 - 99 03/06/2019 [facility] ELECTROLYTES BUN 30 7 - 22 03/06/2019 [facility] HEMATOLOGY INR 1.15 0.85 - 1.17 03/06/[address] [facility] PTT 38.5 22.9 - 35.8 03/06/2019 [facility] HEMATOLOGY PT 14.5 12.0 - 14.7 03/06/[address] [facility] MCHC 32.8 32.0 - 36.0 03/06/2019 [facility] HEMATOLOGY RDW 15.8 11.5 - 14.5 03/06/[address] [facility] Platelet 152 133 - 450 03/06/2019 [facility] HEMATOLOGY MPV 8.6 7.4 - 10.4 03/06/2019 [facility] HEMATOLOGY WBC 7.5 3.7 - 10.4 03/06/2019 [facility] HEMATOLOGY RBC 3.77 4.20 - 5.40 03/06/[address] [facility] MCH 30.1 27.0 - 31.0 03/06/[address] [facility] MCV 91.9 80.0 - 98.0 03/06/2019 [facility] HEMATOLOGY Hct 34.7 36.0 - 48.0 03/06/2019 [facility] HEMATOLOGY Hgb 11.4 12.0 - 16.0 03/06/2019 [facility] HEMATOLOGY Segs 62.3 45.0 - 75.0 03/06/2019 [facility] HEMATOLOGY Eosinophils 3.3 0.0 - 4.0 03/06/2019 [facility] HEMATOLOGY Monocytes 10.2 2.0 - 12.0 03/06/2019 [facility] HEMATOLOGY Neutrophils # 4.7 1.5 - 8.1 03/06/2019 [facility] HEMATOLOGY Basophils 0.7 0.0 - 1.0 03/06/2019 [facility] HEMATOLOGY Lymphocytes 23.5 20.0 - 40.0 03/06/2019 [facility] HEMATOLOGY Eosinophils # 0.3 0.0 - 0.5 03/06/2019 [facility] HEMATOLOGY Monocytes # 0.8 0.0 - 0.8 03/06/2019 [facility] HEMATOLOGY Basophils # 0.1 0.0 - 0.2 03/06/2019 [facility] HEMATOLOGY Lymphocytes # 1.8 1.0 - 5.5 03/06/2019 [facility] HEMATOLOGY Basophils # 0.1 0.0 - 0.2 03/04/2019 [facility] HEMATOLOGY Eosinophils # 0.2 0.0 - 0.5 03/04/2019 [facility] HEMATOLOGY Monocytes # 0.7 0.0 - 0.8 03/04/[address] [facility] Lymphocytes # 1.1 1.0 - 5.5 03/04/[address] [facility] Neutrophils # 3.7 1.5 - 8.1 03/04/2019 [facility] HEMATOLOGY Basophils 0.9 0.0 - 1.0 03/04/[address] [facility] Eosinophils 3.0 0.0 - 4.0 03/04/2019 [facility] HEMATOLOGY Monocytes 13.0 2.0 - 12.0 03/04/2019 [facility] HEMATOLOGY Lymphocytes 19.8 20.0 - 40.0 03/04/2019 [facility] HEMATOLOGY Segs 63.3 45.0 - 75.0 03/04/2019 [facility] IMMUNOLOGY Hep Bs Ag Negat zaria *NA* (03/04/19 7:15 AM) Negative 03/04/2019 [facility] CHEM PANEL ALT 16 0 - 65 03/01/2019 [facility] CHEM PANEL AST 23 0 - 37 03/01/2019 [facility] CHEM PANEL Bili Total 1.0 0.2 - 1.3 03/01/2019 [facility] CHEM PANEL Alk Phos 133 39 - 136 03/01/2019 [facility] CHEM PANEL Total Protein 7.7 6.4 - 8.4 03/01/2019 [facility] CHEM PANEL Albumin Lvl 3.1 3.5 - 5.0 03/01/2019 [facility] CHEM PANEL Globulin 4.6 2.7 - 4.2 03/01/2019 [facility] CHEM PANEL A/G Ratio 0.7 0.7 - 1.6 03/01/2019 [facility] CHEM PANEL B/C Ratio 7 6 - 25 03/01/2019 [facility] HEMATOLOGY Plt Morph Cathy l (03/01/19 4:10 AM) Normal 03/01/2019 [facility] HEMATOLOGY RBC Morph Cathy l (03/01/19 4:10 AM) Normal 03/01/2019 [facility] IMMUNOLOGY Hep Bs Ag Negat zaria *NA* (02/28/19 8:10 PM) Negative 03/01/2019 [facility] CARDIAC ENZYMES Troponin-I 0.03 0.00 - 0.40 02/28/2019 [facility] CHEM PANEL Globulin 5.9 2.7 - 4.2 02/28/2019 [facility] CHEM PANEL A/G Ratio 0.5 0.7 - 1.6 02/28/2019 [facility] CHEM PANEL B/C Ratio 10 6 - 25 02/28/2019 [facility] CHEM PANEL Albumin Lvl 3.1 3.5 - 5.0 02/28/2019 [facility] CHEM PANEL Total Protein 9.0 6.4 - 8.4 02/28/2019 [facility] CHEM PANEL Bili Total 0.9 0.2 - 1.3 02/28/2019 [facility] CHEM PANEL Alk Phos 207 39 - 136 02/28/2019 [facility] CHEM PANEL ALT 25 0 - 65 02/28/2019 [facility] CHEM PANEL AST 76 0 - 37 02/28/2019 [facility] CHEM PANEL Procalcitonin Lvl 1.69 0.00 - 0.10 02/28/2019 [facility] CHEM PANEL Lactic Acid Lvl 1.9 0.5 - 2.2 02/28/2019 [facility] MOLECULAR DIAGNOSTIC Ishan Vancomycin Resistance Not Detected (02/28/19 1:21 PM) Not Detected 02/28/2019 [facility] MOLECULAR DIAGNOSTIC mecA Methicilli n Resistance Not Detected (02/28/19 1:21 PM) Not Detected 02/28/2019 [facility] Staphylococcus spp. Detected *ABN* (02/28/19 1:21 PM) Not Detected 02/28/2019 [facility] Listeria spp. Not Detected (02/28/19 1:21 PM) Not Detected 02/28/2019 [facility] Streptococcus s pp. Not Detected (02/28/19 1:21 PM) Not Detected 02/28/2019 [facility] E. faecalis Not Detected (02/28/19 1:21 PM) Not Detected 02/28/2019 [facility] E. faecium Not Detected (02/28/19 1:21 PM) Not Detected 02/28/2019 [facility] S. pyogenes Not Detected (02/28/19 1:21 PM) Not Detected 02/28/2019 [facility] S. pneumoniae Not Detected (02/28/19 1:21 PM) Not Detected 02/28/2019 [facility] S. agalactiae Not Detected (02/28/19 1:21 PM) Not Detected 02/28/2019 [facility] vanB Vancomycin Resistance Not Detected (02/28/19 1:21 PM) Not Detected 02/28/2019 [facility] S. epidermidis Not Detected (02/28/19 1:21 PM) Not Detected 02/28/2019 [facility] S. lugdunensis Detected *ABN* (02/28/19 1:21 PM) Not Detected 02/28/2019 [facility] S. aureus Not Detected (02/28/19 1:21 PM) Not Detected 02/28/2019 [facility] S. anginosus gr p Not Detected (02/28/19 1:21 PM) Not Detected 02/28/2019 [facility] CARDIAC ENZYMES Troponin-I <0.02 0.00 - 0.40 02/12/2019 [facility] CHEM PANEL eGFR 9 02/12/2019 Result [...] Glucose Lvl 107 70 - 99 02/12/2019 [facility] CHEM PANEL Creatinine Lvl 4.57 0.50 [...] PANEL ALT 18 0 - 65 02/12/2019 [facility] CHEM PANEL Albumin Lvl 3.2 3.5 [...] should be multiplied by the estimated BMI. [facility] CHEM PANEL Chloride Lvl 104 95 - 109 11/05/2018 [facility] CHEM PANEL CO2 28 24 - 32 11/05/2018 [facility] CHEM PANEL Calcium Lvl 7.9 8.5 - 10.5 11/05/2018 [facility] CHEM PANEL Potassium Lvl 3.9 3.5 - 5.1 11/05/2018 [facility] CHEM PANEL BUN 41 7 - 22 11/05/2018 [facility] CHEM PANEL Glucose Lvl 277 70 - 99 11/05/2018 [facility] CHEM PANEL Creatinine Lvl 3.38 0.50 - 1.40 11/05/2018 [facility] CHEM PANEL Sodium Lvl 141 135 - 145 11/05/2018 [facility] CHEM PANEL AGAP 12.9 10.0 - [...] Hospital Monocytes 5.6 2.0 - 12.0 11/05/2018 [facility] HEMATOLOGY Eosinophils 5.0 0.0 - 4.0 [...] Hospital MCHC 33.8 32.0 - 36.0 11/05/2018 [facility] HEMATOLOGY RDW 13.1 11.5 - 14.5 11/05/2018 [facility] HEMATOLOGY MCV 94.7 80.0 - 98.0 11/05/2018 [facility] HEMATOLOGY MCH 32.0 27.0 - 31.0 11/05/2018 [facility] HEMATOLOGY WBC 3.4 3.7 - 10.4 11/05/2018 [facility] HEMATOLOGY RBC 2.86 4.20 - 5.40 11/05/2018 [facility] HEMATOLOGY Hgb 9.2 12.0 - 16.0 11/05/[address] [facility] Hct 27.1 36.0 - 48.0 11/05/2018 [facility] Gram Stain Report Gram Stain Perf ormed By: [facility] 11/04/2018 [facility] Culture: Respiratory w/Gram Stain F ew Yeast Normal Respiratory Cheri Isolated 11/04/2018 [facility] CHEM PANEL eGFR 13 11/03/2018 Result [...] should be multiplied by the estimated BMI. [facility] CHEM PANEL BUN 26 7 - 22 11/03/2018 [facility] CHEM PANEL Creatinine Lvl 3.51 0.50 - 1.40 11/03/2018 [facility] CHEM PANEL Glucose Lvl 146 70 - 99 11/03/2018 [facility] CHEM PANEL Sodium Lvl 141 135 - 145 11/03/2018 [facility] CHEM PANEL Potassium Lvl 4.0 3.5 - 5.1 11/03/2018 [facility] CHEM PANEL Chloride Lvl 104 95 - 109 11/03/2018 [facility] CHEM PANEL CO2 29 24 - 32 11/03/2018 [facility] CHEM PANEL Calcium Lvl 8.4 8.5 - 10.5 11/03/2018 [facility] CHEM PANEL AGAP 12.0 10.0 - 20.0 11/03/2018 [facility] HEMATOLOGY MCH 31.9 27.0 - 31.0 11/03/[address] [facility] RDW 13.2 11.5 - 14.5 11/03/2018 [facility] HEMATOLOGY MCV 94.9 80.0 - 98.0 [...] Monocytes # 0.7 0.0 - 0.8 11/03/2018 [facility] MOLECULAR DIAGNOSTIC Source Respirat ory Panel PCR [employer] Swab (11/02/18 1:32 AM) 11/02/2018 [facility] DIAGNOSTIC Influenza A PCR Negative (11/02/18 1:32 AM) Negative 11/02/2018 [facility] MOLECULAR DIAGNOSTIC Influenza B PCR Negative (11/02/18 1:32 AM) Negative 11/02/2018 [facility] MOLECULAR DIAGNOSTIC RSV PCR Negative (11/02/18 1:32 AM) Negative 11/02/2018 [facility] VIRAL - SEROLOGY Influ A Negative (11/02/18 1:32 AM) Negative 11/02/2018 [facility] VIRAL - SEROLOGY Influ B Negative (11/02/18 1:32 AM) Negative 11/02/2018 [facility] CHEM PANEL Lactic Acid Lvl 0.9 0.5 - 2.2 11/02/2018 [facility] CHEM PANEL Procalcitonin Lvl 0.40 0.00 - 0.10 11/02/2018 [facility] IMMUNOLOGY Hep Bs Ag Negat zaria *NA* (11/02/18 12:52 AM) Negative 11/02/2018 [facility] BACTERIAL - SEROLOGY Source Strep Urine *NA* (11/01/18 10:06 PM) 11/02/2018 [facility] BACTERIAL - SEROLOGY Strep pneumonia e Ag Negative (11/01/18 10:06 PM) Negative 11/02/2018 [facility] CEFAZOLIN:SUSC:PT:ISOLATE:ORDQN:RHONDA Culture: Urine 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 Escherichia coli . This Organism Produces An Extended Spectrum Beta Lactamase (ESBL). . 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 Skin Cheri 11/02/2018 [facility] CEFAZOLIN:SUSC:PT:ISOLATE:ORDQN:RHONDA Escherichia coli Escherichia coli 11/02/2018 [facility] URINE AND STOOL UA Ketones Trace *ABN* (11/01/18 10:06 PM) Negative 11/02/2018 [facility] URINE AND STOOL UA Protein >=300 mg/dL Negative mg/dL 11/02/2018 [facility] URINE AND STOOL UA Color Renate 11/02/2018 [facility] URINE AND STOOL UA Turbidity Marked *ABN* (11/01/18 10:06 PM) Clear 11/02/2018 [facility] URINE AND STOOL UA Glucose Negative *NA* (11/01/18 10:06 PM) Negative 11/02/2018 [facility] URINE AND STOOL UA Spec Grav 1.017 <=1.030 11/02/2018 [facility] URINE AND STOOL UA pH 5.0 5.0 - 8.0 11/02/2018 [facility] URINE AND STOOL UA Leuk Est Large *ABN* (11/01/18 10:06 PM) Negative 11/02/2018 [facility] URINE AND STOOL UA Bacteria Many /HPF None Seen /HPF 11/02/2018 [facility] URINE AND STOOL UA Mucus Few /LPF None Seen /LPF 11/02/2018 [facility] URINE AND STOOL UA WBC >182 0 - 5 11/02/2018 [facility] URINE AND STOOL UA RBC 5 0 - 2 11/02/2018 [facility] URINE AND STOOL UA Sq Epi Occasional /LPF Few /LPF 11/02/2018 [facility] URINE AND STOOL UA Urobilinogen <=1.0 mg/dL 0.1 - 1.0 11/02/2018 [facility] URINE AND STOOL UA Nitrite Negative (11/01/18 10:06 PM) Negative 11/02/2018 [facility] URINE AND STOOL UA Bili Negative *NA* (11/01/18 10:06 PM) Negative 11/02/2018 [facility] URINE AND STOOL UA Blood Moderate *ABN* (11/01/18 10:06 PM) Negative 11/02/2018 [facility] CARDIAC ENZYMES Troponin-I <0.02 0.00 - 0.40 11/02/2018 [facility] CHEM PANEL Lactic Acid Lvl 0.7 0.5 - 2.2 11/02/2018 [facility] CHEM PANEL Globulin 5.4 2.7 - 4.2 11/02/2018 [facility] CHEM PANEL B/C Ratio 10 6 - 25 11/02/2018 [facility] CHEM PANEL A/G Ratio 0.6 0.7 - 1.6 11/02/2018 [facility] CHEM PANEL AGAP 11.5 10.0 - 20.0 11/02/2018 [facility] CHEM PANEL Alk Phos 275 39 - 136 11/02/2018 [facility] CHEM PANEL eGFR 14 11/02/2018 Result [...] should be multiplied by the estimated BMI. [facility] CHEM PANEL Bili Total 1.0 0.2 - 1.3 11/02/2018 [facility] CHEM PANEL CO2 32 24 - 32 11/02/2018 [facility] CHEM PANEL Chloride Lvl 96 95 - 109 11/02/2018 [facility] CHEM PANEL Sodium Lvl 136 135 - 145 11/02/2018 [facility] CHEM PANEL Potassium Lvl 3.5 3.5 - 5.1 11/02/2018 [facility] CHEM PANEL Creatinine Lvl 3.19 0.50 - 1.40 11/02/2018 [facility] CHEM PANEL AST 41 0 - 37 11/02/2018 [facility] CHEM PANEL Calcium Lvl 8.8 8.5 - 10.5 11/02/2018 [facility] CHEM PANEL Total Protein 8.5 6.4 - 8.4 11/02/2018 [facility] CHEM PANEL Albumin Lvl 3.1 3.5 - 5.0 11/02/2018 [facility] CHEM PANEL ALT 26 0 - 65 11/02/2018 [facility] CHEM PANEL BUN 32 7 - 22 11/02/2018 [facility] CHEM PANEL Glucose Lvl 159 70 [...] Monocytes # 0.7 0.0 - 0.8 11/02/2018 [facility] HEMATOLOGY Basophils 0.7 0.0 - 1.0 11/02/2018 [facility] HEMATOLOGY Neutrophils # 5.7 1.5 - 8.1 11/02/2018 [facility] HEMATOLOGY Eosinophils 4.0 0.0 - 4.0 11/02/2018 [facility] HEMATOLOGY Lymphocytes # 1.5 1.0 - 5.5 11/02/[address] [facility] Lymphocytes 18.2 20.0 - 40.0 11/02/2018 [facility] HEMATOLOGY Segs 68.7 45.0 - 75.0 11/02/[address] [facility] Monocytes 8.4 2.0 - 12.0 11/02/2018 [facility] CHEM PANEL eGFR 18 08/06/2018 Result [...] should be multiplied by the estimated BMI. [facility] CHEM PANEL Chloride Lvl 105 95 - 109 08/06/2018 [facility] CHEM PANEL Potassium Lvl 4.1 3.5 - 5.1 08/06/2018 [facility] CHEM PANEL Sodium Lvl 143 135 - 145 08/06/2018 [facility] CHEM PANEL CO2 27 24 - 32 08/06/2018 [facility] CHEM PANEL Calcium Lvl 8.4 8.5 - 10.5 08/06/2018 [facility] CHEM PANEL Glucose Lvl 142 70 - 99 08/06/2018 [facility] CHEM PANEL Creatinine Lvl 2.66 0.50 - 1.40 08/06/2018 [facility] CHEM PANEL BUN 31 7 - 22 08/06/2018 [facility] CHEM PANEL AGAP 15.1 10.0 - [...] Eosinophils # 0.3 0.0 - 0.5 08/06/2018 [facility] CHEM PANEL eGFR 17 08/06/2018 Result [...] should be multiplied by the estimated BMI. [facility] CHEM PANEL Calcium Lvl 8.6 8.5 - 10.5 08/06/2018 [facility] CHEM PANEL BUN 30 7 - 22 08/06/2018 [facility] CHEM PANEL AGAP 15.2 10.0 - 20.0 08/06/2018 [facility] CHEM PANEL CO2 25 24 - 32 08/06/2018 [facility] CHEM PANEL Potassium Lvl 4.2 3.5 - 5.1 08/06/2018 [facility] CHEM PANEL Chloride Lvl 106 95 - 109 08/06/2018 [facility] CHEM PANEL Sodium Lvl 142 135 - 145 08/06/2018 [facility] CHEM PANEL Glucose Lvl 140 70 - 99 08/06/2018 [facility] CHEM PANEL Creatinine Lvl 2.76 0.50 - 1.40 08/06/2018 [facility] HEMATOLOGY RBC 3.43 4.20 - 5.40 08/06/2018 [facility] HEMATOLOGY WBC 6.3 3.7 - 10.4 08/06/2018 [facility] HEMATOLOGY Hgb 10.6 12.0 - 16.0 08/06/2018 [facility] HEMATOLOGY MPV 8.1 7.4 - 10.4 08/06/2018 [facility] HEMATOLOGY RDW 16.4 11.5 - 14.5 08/06/[address] [facility] Platelet 187 133 - 450 08/06/[address] [facility] MCH 30.9 27.0 - 31.0 08/06/2018 [facility] HEMATOLOGY MCHC 33.0 32.0 - 36.0 08/06/2018 [facility] HEMATOLOGY Hct 32.1 36.0 - 48.0 08/06/2018 [facility] HEMATOLOGY MCV 93.6 80.0 - 98.0 08/06/2018 [facility] CHEM PANEL Magnesium Lvl 2.2 1.8 - 2.4 08/05/2018 [facility] CHEM PANEL eGFR 16 08/05/2018 Result [...] should be multiplied by the estimated BMI. [facility] CHEM PANEL BUN 28 7 - 22 08/05/2018 [facility] CHEM PANEL Creatinine Lvl 2.95 0.50 - 1.40 08/05/2018 [facility] CHEM PANEL Chloride Lvl 106 95 - 109 08/05/2018 [facility] CHEM PANEL CO2 25 24 - 32 08/05/2018 [facility] CHEM PANEL Calcium Lvl 9.1 8.5 - 10.5 08/05/2018 [facility] CHEM PANEL Sodium Lvl 143 135 - 145 08/05/2018 [facility] CHEM PANEL Potassium Lvl 4.9 3.5 - 5.1 08/05/2018 [facility] CHEM PANEL Glucose Lvl 207 70 - 99 08/05/2018 [facility] CHEM PANEL AGAP 16.9 10.0 - 20.0 08/05/2018 [facility] HEMATOLOGY Neutrophils # 3.2 1.5 - 8.1 08/05/2018 [facility] HEMATOLOGY Basophils 0.4 0.0 - 1.0 08/05/2018 [facility] HEMATOLOGY Monocytes # 0.4 0.0 - 0.8 08/05/2018 [facility] HEMATOLOGY Lymphocytes # 1.0 1.0 - 5.5 08/05/2018 [facility] HEMATOLOGY Eosinophils # 0.2 0.0 - 0.5 08/05/2018 [facility] HEMATOLOGY Monocytes 8.9 2.0 - 12.0 08/05/2018 [facility] HEMATOLOGY Eosinophils 4.6 0.0 - 4.0 08/05/2018 [facility] HEMATOLOGY Segs 64.9 45.0 - 75.0 08/05/[address] [facility] Lymphocytes 21.2 20.0 - 40.0 08/05/[address] [facility] MPV 8.3 7.4 - 10.4 08/05/[address] [facility] RDW 15.9 11.5 - 14.5 08/05/[address] [facility] Platelet 192 133 - 450 08/05/2018 [facility] HEMATOLOGY MCH 31.2 27.0 - 31.0 08/05/[address] [facility] MCHC 33.2 32.0 - 36.0 08/05/2018 [facility] HEMATOLOGY MCV 93.7 80.0 - 98.0 08/05/[address] [facility] Hct 32.1 36.0 - 48.0 08/05/[address] [facility] Hgb 10.7 12.0 - 16.0 08/05/2018 [facility] HEMATOLOGY WBC 4.9 3.7 - 10.4 08/05/2018 [facility] HEMATOLOGY RBC 3.43 4.20 - 5.40 08/05/2018 [facility] HEMATOLOGY Eosinophils # 0.3 0.0 - [...] Hospital Monocytes 8.4 2.0 - 12.0 08/03/2018 [facility] IMMUNOLOGY Hep Bs Ag Negat zaria *NA* (07/30/18 5:30 AM) Negative 07/30/2018 [facility] CEFUROXIME:SUSC:PT:ISOLATE:ORDQN:RHONDA Culture: Urine 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 Escherichia coli 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 Skin Cheri 07/30/2018 [facility] CEFUROXIME:SUSC:PT:ISOLATE:ORDQN:RHONDA Escherichia coli Escherichia coli 07/30/2018 [facility] URINE AND STOOL UA Urobilinogen <=1.0 mg/dL 0.1 - 1.0 07/30/2018 [facility] URINE AND STOOL UA Color Renate 07/30/2018 [facility] URINE AND STOOL UA Mucus Few /LPF None Seen /LPF 07/30/2018 [facility] URINE AND STOOL UA Hyal Cast 9 0 - 2 07/30/2018 [facility] URINE AND STOOL UA WBC 106 0 - 5 07/30/2018 [facility] URINE AND STOOL UA RBC 2 0 - 2 07/30/2018 [facility] URINE AND STOOL UA Bacteria Many /HPF None Seen /HPF 07/30/2018 [facility] URINE AND STOOL UA Blood Small *ABN* (07/30/18 3:50 AM) Negative 07/30/2018 [facility] URINE AND STOOL UA Bili Negative *NA* (07/30/18 3:50 AM) Negative 07/30/2018 [facility] URINE AND STOOL UA Sq Epi Moderate /LPF Few /LPF 07/30/2018 [facility] URINE AND STOOL UA Nitrite Negative (07/30/18 3:50 AM) Negative 07/30/2018 [facility] URINE AND STOOL UA Leuk Est Large *ABN* (07/30/18 3:50 AM) Negative 07/30/2018 [facility] URINE AND STOOL UA Protein 100 mg/dL Negative mg/dL 07/30/2018 [facility] URINE AND STOOL UA Ketones Negative mg/dL Negative mg/dL 07/30/[address] [facility] [address] URINE AND STOOL UA Glucose Negative mg/dL Negative mg/dL 07/30/[address] [facility] [address] URINE AND STOOL UA pH 5.0 5.0 - 8.0 07/30/2018 [facility] URINE AND STOOL UA Spec Grav 1.014 <=1.030 07/30/2018 [facility] URINE AND STOOL UA Turbidity Marked *ABN* (07/30/18 3:50 AM) Clear 07/30/2018 [facility] HEMATOLOGY Basophils # 0.1 0.0 - 0.2 07/29/2018 [facility] CARDIAC ENZYMES Troponin-I 0.03 0.00 - 0.40 07/29/2018 [facility] CHEM PANEL B/C Ratio 10 6 - 25 07/29/2018 [facility] CHEM PANEL Globulin 5.9 2.7 - 4.2 07/29/2018 [facility] CHEM PANEL A/G Ratio 0.5 0.7 - 1.6 07/29/2018 [facility] CHEM PANEL Albumin Lvl 3.1 3.5 - 5.0 07/29/2018 [facility] CHEM PANEL AST 39 0 - 37 07/29/2018 [facility] CHEM PANEL ALT 17 0 - 65 07/29/2018 [facility] CHEM PANEL Bili Total 0.5 0.2 - 1.3 07/29/2018 [facility] CHEM PANEL Alk Phos 195 39 - 136 07/29/2018 [facility] CHEM [facility] Total Protein 9.0 6.4 - 8.4 07/29/2018 [facility] HEMATOLOGY PTT 28.1 22.9 - 35.8 07/29/2018 [facility] HEMATOLOGY INR 1.01 0.85 - 1.17 07/29/2018 [facility] HEMATOLOGY PT 13.3 12.0 - 14.7 07/29/2018 [facility] HEMATOLOGY Basophils # 0.1 0.0 - 0.2 07/29/2018 [facility] CARDIAC ENZYMES Troponin-I 0.04 0.00 - 0.40 05/05/2018 [facility] CARDIAC ENZYMES Troponin-I 0.04 0.00 - 0.40 05/04/2018 [facility] CHEM PANEL eGFR 34 05/04/2018 Result [...] should be multiplied by the estimated BMI. [facility] CHEM PANEL Glucose Lvl 128 70 - 99 05/04/2018 [facility] CHEM PANEL BUN 15 7 - 22 05/04/2018 [facility] CHEM PANEL Creatinine Lvl 1.56 0.50 - 1.40 05/04/2018 [facility] CHEM PANEL Sodium Lvl 140 135 - 145 05/04/2018 [facility] CHEM PANEL Calcium Lvl 8.1 8.5 - 10.5 05/04/2018 [facility] CHEM PANEL CO2 32 24 - 32 05/04/2018 [facility] CHEM PANEL Chloride Lvl 104 95 - 109 05/04/2018 [facility] CHEM PANEL Potassium Lvl 4.1 3.5 - 5.1 05/04/2018 [facility] CHEM PANEL AGAP 8.1 10.0 - 20.0 05/04/2018 [facility] HEMATOLOGY MPV 8.2 7.4 - 10.4 05/04/2018 [facility] HEMATOLOGY MCHC 32.7 32.0 - 36.0 05/04/[address] [facility] MCH 29.5 27.0 - 31.0 05/04/2018 [facility] HEMATOLOGY Platelet 129 133 - 450 05/04/2018 [facility] HEMATOLOGY RDW 18.7 11.5 - 14.5 05/04/2018 [facility] HEMATOLOGY Hct 25.9 36.0 - 48.0 05/04/2018 [facility] HEMATOLOGY MCV 90.2 80.0 - 98.0 05/04/2018 [facility] HEMATOLOGY Hgb 8.5 12.0 - 16.0 05/04/2018 [facility] HEMATOLOGY RBC 2.88 4.20 - 5.40 05/04/2018 [facility] HEMATOLOGY WBC 4.9 3.7 - 10.4 05/04/2018 [facility] HEMATOLOGY Monocytes 13.0 2.0 - 12.0 05/04/2018 [facility] HEMATOLOGY Eosinophils 9.1 0.0 - 4.0 05/04/2018 [facility] HEMATOLOGY Segs 54.0 45.0 - 75.0 05/04/2018 [facility] HEMATOLOGY Lymphocytes 23.7 20.0 - 40.0 05/04/2018 [facility] HEMATOLOGY Eosinophils # 0.4 0.0 - 0.5 05/04/2018 [facility] Lymphocytes # 1.2 1.0 - 5.5 05/04/[address] [facility] Monocytes # 0.6 0.0 - 0.8 05/04/2018 [facility] HEMATOLOGY Basophils 0.2 0.0 - 1.0 05/04/[address] [facility] Segs-Bands # 2.6 1.5 - 8.1 05/04/2018 [facility] HEMATOLOGY Hct 28.2 36.0 - 48.0 05/04/2018 [facility] HEMATOLOGY Hgb 9.2 12.0 - 16.0 05/04/2018 [facility] CARDIAC ENZYMES Troponin-I 0.04 0.00 - 0.40 05/03/2018 [facility] CARDIAC ENZYMES BNP 663 <=100 pg/mL 05/02/2018 [facility] ELECTROLYTES AGAP 11.0 10.0 - 20.0 05/02/2018 [facility] ELECTROLYTES Glucose Lvl 167 70 - 99 05/02/2018 [facility] ELECTROLYTES Creatinine Lvl 2.8 0 0.50 - 1.40 05/02/2018 [facility] ELECTROLYTES Sodium Lvl 139 135 - 145 05/02/2018 [facility] ELECTROLYTES Potassium Lvl 4.0 3.5 - 5.1 05/02/2018 [facility] ELECTROLYTES BUN 46 7 - 22 05/02/2018 [facility] ELECTROLYTES eGFR 17 05/02/2018 Result Comment: [...] should be multiplied by the estimated BMI. [facility] ELECTROLYTES Chloride Lvl 103 95 - 109 05/02/2018 [facility] ELECTROLYTES CO2 29 24 - 32 05/02/2018 [facility] ELECTROLYTES Calcium Lvl 8.3 8.5 - 10.5 05/02/2018 [facility] IMMUNOLOGY Hep Bs Ag Negat zaria *NA* (05/02/18 7:27 AM) Negative 05/02/2018 [facility] ELECTROLYTES AGAP 11.5 10.0 - 20.0 05/01/2018 [facility] ELECTROLYTES eGFR 17 05/01/2018 Result Comment: [...] should be multiplied by the estimated BMI. [facility] ELECTROLYTES Calcium Lvl 8.4 8.5 - 10.5 05/01/2018 [facility] ELECTROLYTES CO2 27 24 - 32 05/01/2018 [facility] ELECTROLYTES Sodium Lvl 139 135 - 145 05/01/2018 [facility] ELECTROLYTES Creatinine Lvl 2.7 8 0.50 - 1.40 05/01/2018 [facility] ELECTROLYTES Potassium Lvl 4.5 3.5 - 5.1 05/01/2018 [facility] ELECTROLYTES Glucose Lvl 135 70 - 99 05/01/2018 [facility] ELECTROLYTES BUN 39 7 - 22 05/01/2018 [facility] ELECTROLYTES Chloride Lvl 105 95 - 109 05/01/2018 [facility] HEMATOLOGY PTT 45.8 22.9 - 35.8 04/30/[address] [facility] PTT 73.6 22.9 - 35.8 04/30/2018 [facility] CARDIAC ENZYMES CK MB Index 1.6 0.0 - 2.5 04/30/2018 [facility] CARDIAC ENZYMES CK MB 2.8 0.5 - 3.6 04/30/2018 [facility] CARDIAC ENZYMES Total CK 177 12 [...] Hospital MCH 28.9 27.0 - 31.0 04/30/2018 [facility] HEMATOLOGY Basophils 0.4 0.0 - 1.0 [...] Monocytes # 0.6 0.0 - 0.8 04/30/2018 [facility] CARDIAC ENZYMES Total CK 200 12 - 191 04/30/2018 [facility] CARDIAC ENZYMES CK MB 3.4 0.5 - 3.6 04/30/2018 [facility] CARDIAC ENZYMES Total CK 191 12 - 191 04/29/2018 [facility] CARDIAC ENZYMES CK MB 3.9 0.5 [...] HEMATOLOGY PTT 36.4 22.9 - 35.8 04/29/2018 [facility] HEMATOLOGY Platelet 124 133 - 450 04/29/2018 [facility] HEMATOLOGY MCHC 32.0 32.0 - 36.0 04/29/2018 [facility] HEMATOLOGY MPV 7.7 7.4 - 10.4 04/29/2018 [facility] HEMATOLOGY RDW 19.3 11.5 - 14.5 04/29/2018 [facility] HEMATOLOGY WBC 5.9 3.7 - 10.4 04/29/2018 [facility] HEMATOLOGY MCV 89.1 80.0 - 98.0 04/29/2018 [facility] HEMATOLOGY MCH 28.5 27.0 - 31.0 04/29/2018 [facility] HEMATOLOGY RBC 2.82 4.20 - 5.40 04/29/2018 [facility] IMMUNOLOGY Hep C Ab Posit zaria *ABN* (04/29/18 6:13 PM) 04/29/2018 [facility] Hep Bs Ab 44.5 <=7.4 mIU/mL 04/29/2018 [facility] Hep B Core Ab Posit zaria *NA* (04/29/18 6:13 PM) Negative 04/29/2018 [facility] CARDIAC ENZYMES CK MB Index 3.0 0.0 - 2.5 04/29/2018 [facility] CARDIAC ENZYMES CK MB Index 3.3 0.0 - 2.5 04/29/2018 [facility] CHEM PANEL Lipase Lvl 279 73 - 393 04/29/2018 [facility] CARDIAC ENZYMES BNP 451 <=100 pg/mL 04/29/2018 [facility] CHEM PANEL Total Protein 8.1 6.4 - 8.4 04/29/2018 [facility] CHEM PANEL ALT 21 0 - 65 04/29/2018 [facility] CHEM PANEL AST 55 0 - 37 04/29/2018 [facility] CHEM PANEL Alk Phos 142 39 - 136 04/29/2018 [facility] CHEM PANEL Albumin Lvl 3.2 3.5 - 5.0 04/29/2018 [facility] CHEM PANEL Bili Total 0.4 0.2 - 1.3 04/29/2018 [facility] CHEM PANEL A/G Ratio 0.7 0.7 - 1.6 04/29/2018 [facility] CHEM PANEL Globulin 4.9 2.7 - 4.2 04/29/2018 [facility] CHEM PANEL B/C Ratio 16 6 - 25 04/29/2018 [facility] URINE AND STOOL UA Turbidity Clear (04/28/18 7:10 PM) Clear 04/29/2018 [facility] URINE AND STOOL UA Spec Grav 1.010 <=1.030 04/29/2018 [facility] URINE AND STOOL UA Color Yellow *NA* (04/28/18 7:10 PM) Yellow 04/29/2018 [facility] URINE AND STOOL UA Urobilinogen <=1.0 mg/dL 0.1 - 1.0 04/29/2018 [facility] URINE AND STOOL UA Leuk Est Negative (04/28/18 7:10 PM) Negative 04/29/2018 [facility] URINE AND STOOL UA Blood Small *ABN* (04/28/18 7:10 PM) Negative 04/29/2018 [facility] URINE AND STOOL UA Nitrite Negative (04/28/18 7:10 PM) Negative 04/29/2018 [facility] URINE AND STOOL UA Hyal Cast 1 0 - 2 04/29/2018 [facility] URINE AND STOOL UA Bacteria Occasional /HPF None Seen /HPF 04/29/2018 [facility] URINE AND STOOL UA Ketones Negative mg/dL Negative mg/dL 04/29/2018 [facility] URINE AND STOOL UA Bili Negative *NA* (04/28/18 7:10 PM) Negative 04/29/2018 [facility] URINE AND STOOL UA Sq Epi Occasional /LPF Few /LPF 04/29/2018 [facility] URINE AND STOOL UA WBC 3 0 - 5 04/29/2018 [facility] URINE AND STOOL UA RBC 4 0 - 2 04/29/2018 [facility] URINE AND STOOL UA pH 5.0 5.0 - 8.0 04/29/2018 [facility] URINE AND STOOL UA Protein 100 mg/dL Negative mg/dL 04/29/2018 [facility] URINE AND STOOL UA Glucose Negative mg/dL Negative mg/dL 04/29/2018 [facility] CHEM PANEL eGFR 22 04/12/2018 Result Comment: [...] should be multiplied by the estimated BMI. [facility] CHEM PANEL Glucose Lvl 82 70 - 99 04/12/2018 [facility] CHEM PANEL BUN 43 7 - 22 04/12/2018 [facility] CHEM PANEL Creatinine Lvl 2.25 0.50 - 1.40 04/12/2018 [facility] CHEM PANEL Potassium Lvl 4.6 3.5 - 5.1 04/12/2018 [facility] CHEM PANEL Sodium Lvl 144 135 - 145 04/12/2018 [facility] CHEM PANEL Chloride Lvl 113 95 - 109 04/12/2018 [facility] CHEM PANEL CO2 26 24 - 32 04/12/2018 [facility] CHEM PANEL Calcium Lvl 8.5 8.5 - 10.5 04/12/2018 [facility] CHEM PANEL AGAP 9.6 10.0 - 20.0 04/12/2018 [facility] HEMATOLOGY Basophils 0.5 0.0 - 1.0 04/12/2018 [facility] HEMATOLOGY Segs-Bands # 4.5 1.5 - 8.1 04/12/2018 [facility] HEMATOLOGY Lymphocytes # 1.1 1.0 - 5.5 04/12/2018 [facility] HEMATOLOGY Monocytes 9.7 2.0 - 12.0 04/12/2018 [facility] HEMATOLOGY Eosinophils 3.4 0.0 - 4.0 04/12/[address] [facility] Monocytes # 0.6 0.0 - 0.8 04/12/[address] [facility] Eosinophils # 0.2 0.0 - 0.5 04/12/2018 [facility] HEMATOLOGY Segs 69.2 45.0 - 75.0 04/12/2018 [facility] HEMATOLOGY Lymphocytes 17.2 20.0 - 40.0 [...] Hospital WBC 6.5 3.7 - 10.4 04/12/2018 [facility] HEMATOLOGY Hct 31.5 36.0 - 48.0 04/12/2018 [facility] HEMATOLOGY Hgb 9.9 12.0 - 16.0 04/12/[address] [facility] RBC 3.49 4.20 - 5.40 04/12/2018 [facility] CHEM PANEL eGFR 23 04/01/2018 Result [...] should be multiplied by the estimated BMI. [facility] CHEM PANEL CO2 29 24 - 32 04/01/2018 [facility] CHEM PANEL Calcium Lvl 8.7 8.5 - 10.5 04/01/2018 [facility] CHEM PANEL BUN 32 7 - 22 04/01/2018 [facility] CHEM PANEL Creatinine Lvl 2.18 0.50 - 1.40 04/01/2018 [facility] CHEM PANEL Glucose Lvl 137 70 - 99 04/01/2018 [facility] CHEM PANEL Chloride Lvl 106 95 - 109 04/01/2018 [facility] CHEM PANEL Potassium Lvl 4.9 3.5 - 5.1 04/01/2018 [facility] CHEM PANEL Sodium Lvl 143 135 - 145 04/01/2018 [facility] CHEM PANEL AGAP 12.9 10.0 - 20.0 04/01/2018 [facility] HEMATOLOGY Eosinophils 3.3 0.0 - 4.0 04/01/2018 [facility] HEMATOLOGY Monocytes 12.6 2.0 - 12.0 04/01/2018 [facility] HEMATOLOGY Lymphocytes # 0.9 1.0 - 5.5 04/01/2018 [facility] HEMATOLOGY Eosinophils # 0.1 0.0 - [...] Hospital RBC 3.25 4.20 - 5.40 04/01/2018 [facility] CHEM PANEL eGFR 24 03/31/2018 Result [...] should be multiplied by the estimated BMI. [facility] CHEM PANEL Chloride Lvl 108 95 - 109 03/31/2018 [facility] CHEM PANEL Potassium Lvl 5.0 3.5 - 5.1 03/31/2018 [facility] CHEM PANEL Calcium Lvl 8.3 8.5 - 10.5 03/31/2018 [facility] CHEM PANEL AGAP 10.0 10.0 - 20.0 03/31/2018 [facility] CHEM PANEL CO2 27 24 - 32 03/31/2018 [facility] CHEM PANEL Glucose Lvl 113 70 - 99 03/31/2018 [facility] CHEM PANEL Sodium Lvl 140 135 - 145 03/31/2018 [facility] CHEM PANEL Creatinine Lvl 2.08 0.50 - 1.40 03/31/2018 [facility] CHEM PANEL BUN 30 7 - 22 03/31/2018 [facility] ELECTROLYTES AGAP 10.9 10.0 - 20.0 03/30/2018 [facility] ELECTROLYTES Calcium Lvl 8.2 8.5 - 10.5 03/30/2018 [facility] ELECTROLYTES CO2 26 24 - 32 03/30/2018 [facility] ELECTROLYTES eGFR 24 03/30/2018 Result Comment: [...] should be multiplied by the estimated BMI. [facility] ELECTROLYTES Glucose Lvl 96 70 - 99 03/30/2018 [facility] ELECTROLYTES Creatinine Lvl 2.1 2 0.50 - 1.40 03/30/2018 [facility] ELECTROLYTES BUN 29 7 - 22 03/30/2018 [facility] ELECTROLYTES Potassium Lvl 4.9 3.5 - 5.1 03/30/2018 [facility] ELECTROLYTES Chloride Lvl 106 95 - 109 03/30/2018 [facility] ELECTROLYTES Sodium Lvl 138 135 - 145 03/30/2018 [facility] HEMATOLOGY Monocytes # 0.8 0.0 - 0.8 03/30/2018 [facility] HEMATOLOGY Eosinophils # 0.3 0.0 - 0.5 03/30/2018 [facility] HEMATOLOGY Lymphocytes # 1.2 1.0 - 5.5 03/30/2018 [facility] HEMATOLOGY Segs-Bands # 2.4 1.5 - 8.1 03/30/2018 [facility] HEMATOLOGY Basophils 0.6 0.0 - 1.0 03/30/2018 [facility] HEMATOLOGY Segs 51.9 45.0 - 75.0 03/30/2018 [facility] HEMATOLOGY Monocytes 17.0 2.0 - 12.0 03/30/2018 [facility] HEMATOLOGY Eosinophils 5.6 0.0 - 4.0 03/30/2018 [facility] HEMATOLOGY Lymphocytes 24.9 20.0 - 40.0 03/30/[address] [facility] MCH 30.0 27.0 - 31.0 03/30/[address] [facility] MPV 8.7 7.4 - 10.4 03/30/2018 [facility] HEMATOLOGY MCHC 33.5 32.0 - 36.0 03/30/2018 [facility] HEMATOLOGY Platelet 136 133 - 450 03/30/2018 [facility] HEMATOLOGY RBC 2.99 4.20 - 5.40 03/30/2018 [facility] HEMATOLOGY RDW 17.3 11.5 - 14.5 03/30/2018 [facility] HEMATOLOGY WBC 4.6 3.7 - 10.4 03/30/2018 [facility] HEMATOLOGY Hct 26.8 36.0 - 48.0 03/30/2018 [facility] HEMATOLOGY Hgb 9.0 12.0 - 16.0 03/30/2018 [facility] HEMATOLOGY MCV 89.6 80.0 - 98.0 03/30/2018 [facility] HEMATOLOGY RDW 17.2 11.5 - 14.5 03/29/2018 [facility] HEMATOLOGY Platelet 117 133 - 450 03/29/2018 [facility] HEMATOLOGY MCV 90.5 80.0 - 98.0 03/29/2018 [facility] HEMATOLOGY MCH 29.5 27.0 - 31.0 03/29/2018 [facility] HEMATOLOGY MCHC 32.6 32.0 - 36.0 03/29/2018 [facility] HEMATOLOGY MPV 8.9 7.4 - 10.4 03/29/2018 [facility] HEMATOLOGY WBC 4.7 3.7 - 10.4 03/29/2018 [facility] HEMATOLOGY RBC 3.04 4.20 - 5.40 03/29/[address] [facility] Hgb 9.0 12.0 - 16.0 03/29/2018 [facility] HEMATOLOGY Hct 27.5 36.0 - 48.0 03/29/2018 [facility] HEMATOLOGY Lymphocytes # 1.1 1.0 - 5.5 03/29/2018 [facility] HEMATOLOGY Monocytes # 0.7 0.0 - 0.8 03/29/2018 [facility] HEMATOLOGY Eosinophils # 0.2 0.0 - 0.5 03/29/2018 [facility] HEMATOLOGY Basophils 0.5 0.0 - 1.0 [...] Hospital Segs 54.1 45.0 - 75.0 03/29/2018 [facility] IMMUNOLOGY Prealbumin 11.4 18.0 - 45.0 03/29/2018 [facility] IMMUNOLOGY Hep Bs Ag Negat zaria *NA* (03/23/18 1:20 PM) Negative 03/23/2018 [facility] CHEM PANEL Magnesium Lvl 1.9 1.8 - 2.4 03/22/2018 [facility] CHEM PANEL Total Protein 6.5 6.4 - 8.4 03/22/2018 [facility] CHEM PANEL Albumin Lvl 3.5 3.5 - 5.0 03/22/2018 [facility] IMMUNOLOGY Prealbumin 10.2 18.0 - 45.0 03/22/2018 [facility] SPECIAL CHEMISTRY Hgb A1C 6.4 <=5.6 % 03/22/2018 [facility] ELECTROLYTES CO2 27 24 - 32 03/21/2018 [facility] ELECTROLYTES eGFR 9 03/21/2018 Result Comment: [...] should be multiplied by the estimated BMI. [facility] ELECTROLYTES AGAP 15.6 10.0 - 20.0 03/21/2018 [facility] ELECTROLYTES Calcium Lvl 8.2 8.5 - 10.5 03/21/2018 [facility] ELECTROLYTES Chloride Lvl 97 95 - 109 03/21/2018 [facility] ELECTROLYTES Sodium Lvl 136 135 - 145 03/21/2018 [facility] ELECTROLYTES Potassium Lvl 3.6 3.5 - 5.1 03/21/2018 [facility] ELECTROLYTES Glucose Lvl 321 70 - 99 03/21/2018 [facility] ELECTROLYTES Creatinine Lvl 4.7 4 0.50 - 1.40 03/21/2018 [facility] ELECTROLYTES BUN 35 7 - 22 03/21/2018 [facility] HEMATOLOGY MCHC 33.3 32.0 - 36.0 03/21/2018 [facility] HEMATOLOGY MCV 87.9 80.0 - 98.0 03/21/[address] [facility] MCH 29.3 27.0 - 31.0 03/21/2018 [facility] HEMATOLOGY Hgb 8.8 12.0 - 16.0 03/21/2018 [facility] HEMATOLOGY RBC 3.02 4.20 - 5.40 03/21/2018 [facility] HEMATOLOGY Hct 26.5 36.0 - 48.0 03/21/2018 [facility] HEMATOLOGY MPV 9.7 7.4 - 10.4 03/21/2018 [facility] HEMATOLOGY WBC 11.7 3.7 - 10.4 03/21/2018 [facility] HEMATOLOGY Platelet 144 133 - 450 03/21/2018 [facility] HEMATOLOGY RDW 16.0 11.5 - 14.5 03/21/2018 [facility] HEMATOLOGY Segs 83.1 45.0 - 75.0 03/21/2018 [facility] HEMATOLOGY Lymphocytes 6.2 20.0 - 40.0 03/21/2018 [facility] HEMATOLOGY Basophils 0.4 0.0 - 1.0 03/21/[address] [facility] Segs-Bands # 9.7 1.5 - 8.1 03/21/2018 [facility] HEMATOLOGY Eosinophils 1.3 0.0 - 4.0 03/21/2018 [facility] HEMATOLOGY Monocytes 9.0 2.0 - 12.0 03/21/2018 [facility] HEMATOLOGY Eosinophils # 0.2 0.0 - 0.5 03/21/2018 [facility] HEMATOLOGY Monocytes # 1.1 0.0 - 0.8 03/21/2018 [facility] HEMATOLOGY Lymphocytes # 0.7 1.0 - 5.5 03/21/2018 [facility] BLOOD BANK RESULTS RBC product Product available 1 (03/20/18 10:11 AM) 03/20/2018 Result Comment: 03/20/2018 1 0:35 [id number]
notified Rossy [facility] CHEM PANEL eGFR 14 03/20/2018 Result [...] should be multiplied by the estimated BMI. [facility] CHEM PANEL Glucose Lvl 241 70 - 99 03/20/2018 [facility] CHEM PANEL BUN 23 7 - 22 03/20/2018 [facility] CHEM PANEL Sodium Lvl 137 135 - 145 03/20/2018 [facility] CHEM PANEL Potassium Lvl 3.7 3.5 - 5.1 03/20/2018 [facility] CHEM PANEL Chloride Lvl 97 95 - 109 03/20/2018 [facility] CHEM PANEL CO2 26 24 - 32 03/20/2018 [facility] CHEM PANEL Calcium Lvl 7.9 8.5 - 10.5 03/20/2018 [facility] CHEM PANEL Creatinine Lvl 3.23 0.50 - 1.40 03/20/2018 [facility] CHEM PANEL AGAP 17.7 10.0 - 20.0 03/20/2018 [facility] CHEM PANEL Magnesium Lvl 2.0 1.8 - 2.4 03/20/2018 [facility] HEMATOLOGY Basophils 0.3 0.0 - 1.0 03/20/[address] [facility] Segs-Bands # 8.9 1.5 - 8.1 03/20/[address] [facility] Lymphocytes # 0.7 1.0 - 5.5 03/20/2018 [facility] HEMATOLOGY Eosinophils # 0.2 0.0 - 0.5 03/20/[address] [facility] Monocytes # 1.1 0.0 - 0.8 03/20/[address] [facility] Segs 81.9 45.0 - 75.0 03/20/2018 [facility] HEMATOLOGY Eosinophils 1.4 0.0 - 4.0 [...] Hospital Platelet 153 133 - 450 03/20/2018 [facility] BLOOD BANK RESULTS Antibody Scrn Negative (03/19/18 9:40 AM) 03/19/2018 [facility] BLOOD BANK RESULTS ABO/Rh O POS 03/19/2018 [facility] CHEM PANEL eGFR 7 03/19/2018 Result [...] should be multiplied by the estimated BMI. [facility] CHEM PANEL Glucose Lvl 171 70 - 99 03/19/2018 [facility] CHEM PANEL Creatinine Lvl 5.60 0.50 - 1.40 03/19/2018 [facility] CHEM PANEL BUN 47 7 - 22 03/19/2018 [facility] CHEM PANEL AGAP 17.9 10.0 - 20.0 03/19/2018 [facility] CHEM PANEL Potassium Lvl 4.9 3.5 - 5.1 03/19/2018 [facility] CHEM PANEL Chloride Lvl 100 95 - 109 03/19/2018 [facility] CHEM PANEL CO2 20 24 - 32 03/19/2018 [facility] CHEM PANEL Calcium Lvl 8.6 8.5 - 10.5 03/19/2018 [facility] CHEM PANEL Sodium Lvl 133 135 - 145 03/19/2018 [facility] CHEM PANEL Magnesium Lvl 2.1 1.8 - 2.4 03/19/2018 [facility] CHEM PANEL Magnesium Lvl 2.2 1.8 - 2.4 03/18/2018 [facility] HEMATOLOGY WBC 12.2 3.7 - 10.4 03/18/2018 [facility] HEMATOLOGY RDW 15.7 11.5 - 14.5 03/18/2018 [facility] HEMATOLOGY MCV 88.1 80.0 - 98.0 03/18/2018 [facility] HEMATOLOGY MCHC 33.4 32.0 - 36.0 03/18/2018 [facility] HEMATOLOGY Platelet 146 133 - 450 03/18/2018 [facility] HEMATOLOGY RBC 2.66 4.20 - 5.40 03/18/[address] [facility] MCH 29.4 27.0 - 31.0 03/18/2018 [facility] HEMATOLOGY Hct 23.4 36.0 - 48.0 03/18/2018 [facility] HEMATOLOGY Hgb 7.8 12.0 - 16.0 03/18/2018 [facility] HEMATOLOGY MPV 9.4 7.4 - 10.4 03/18/2018 [facility] HEMATOLOGY Lymphocytes # 1.0 1.0 - 5.5 03/18/2018 [facility] HEMATOLOGY Segs-Bands # 9.9 1.5 - 8.1 03/18/2018 [facility] HEMATOLOGY Eosinophils # 0.2 0.0 - 0.5 03/18/2018 [facility] HEMATOLOGY Monocytes # 1.0 0.0 - 0.8 03/18/2018 [facility] HEMATOLOGY Basophils 0.3 0.0 - 1.0 03/18/2018 [facility] HEMATOLOGY Eosinophils 1.4 0.0 - 4.0 03/18/2018 [facility] HEMATOLOGY Monocytes 8.6 2.0 - 12.0 03/18/2018 [facility] HEMATOLOGY Segs 81.1 45.0 - 75.0 03/18/[address] [facility] Lymphocytes 8.6 20.0 - 40.0 03/18/2018 [facility] MOLECULAR DIAGNOSTIC C difficile DNA Negative (03/15/18 12:43 PM) Negative 03/15/2018 [facility] URINE AND STOOL Occult Bld Stl Positive *ABN* (03/15/18 12:43 PM) Negative 03/15/[address] [facility] Baso Stipplin Slight 03/14/[address] [facility] Anisocyte 1+ *ABN* (03/14/18 3:48 AM) None Seen 03/14/[address] [facility] Large Plt Slight 03/14/2018 [facility] ANEMIA STUDY Ferritin Lvl 272 5 - 204 03/13/2018 [facility] ANEMIA STUDY UIBC 105 110 - 370 03/13/2018 [facility] ANEMIA STUDY % [place] Fe 17 12 - 57 03/13/2018 [facility] ANEMIA STUDY Iron 22 30 - 160 03/13/2018 [facility] ANEMIA STUDY TIBC 127 228 - 428 03/13/2018 [facility] CHEM PANEL Mg Therap (LD) 2.5 4.5 - 7.5 03/11/2018 [facility] Hep B Core Ab Posit zaria *NA* (03/11/18 4:40 AM) Negative 03/11/2018 [facility] Hep C Ab Posit zaria *ABN* (03/11/18 4:40 AM) 03/11/2018 [facility] Hep Bs Ab 35.8 <=7.4 mIU/mL 03/11/2018 [facility] IMMUNOLOGY Hep Bs Ag Negat zaria *NA* (03/11/18 4:40 AM) Negative 03/11/2018 [facility] BLOOD BANK RESULTS RBC product Product available 2 (03/10/18 1:55 PM) 03/10/2018 Result Comment: 03/10/2018 1 4:06 [id number]
Called to _NURSE JOSE at _03/10/2018 14:03 by TD_. [facility] CHEM PANEL Mg Therap (LD) 2.4 4.5 - 7.5 03/10/2018 [facility] CHEM PANEL Mg Therap (LD) 2.3 4.5 - 7.5 03/09/2018 [facility] HEMATOLOGY Plt Morph Cathy l (03/08/18 6:52 PM) 03/08/2018 [facility] HEMATOLOGY RBC Morph Cathy l (03/08/18 6:52 PM) 03/08/2018 [facility] HEMATOLOGY Bands 9.0 0.0 - 11.0 03/08/2018 [facility] HEMATOLOGY Tot Cell Ct 100 03/08/2018 [facility] BLOOD BANK RESULTS ABO/Rh O POS 03/08/2018 [facility] BLOOD BANK RESULTS Antibody Scrn Negative (03/08/18 10:53 AM) 03/08/2018 [facility] BLOOD BANK RESULTS RBC product Product available 3 (03/08/18 9:21 AM) 03/08/2018 Result Comment: 03/08/2018 1 3:03 [id number]
KLS notified Etelvina 03/08/2018 12:35 [facility] CHEM PANEL Phosphorus 6.1 2.5 - 4.5 03/08/2018 [facility] CHEM PANEL A/G Ratio 1.1 0.7 - 1.6 03/07/2018 [facility] CHEM PANEL Globulin 3.1 2.7 - 4.2 03/07/2018 [facility] CHEM PANEL B/C Ratio 16 6 - 25 03/07/2018 [facility] CHEM PANEL Bili Total 0.4 0.2 - 1.3 03/07/2018 [facility] CHEM PANEL Alk Phos 67 39 - 136 03/07/2018 [facility] CHEM PANEL AST 48 0 - 37 03/07/2018 [facility] CHEM PANEL ALT 8 0 - 65 03/07/2018 [facility] CHEM PANEL Albumin Lvl 3.5 3.5 - 5.0 03/07/2018 [facility] CHEM PANEL Total Protein 6.6 6.4 [...] HEMATOLOGY PTT 36.3 22.9 - 35.8 03/06/2018 [facility] HEMATOLOGY Basophils # 0.1 0.0 - 0.2 03/06/2018 [facility] HEMATOLOGY INR 1.64 0.85 - 1.17 03/05/2018 [facility] HEMATOLOGY PT 19.5 12.0 - 14.7 03/05/2018 [facility] HEMATOLOGY PTT 37.7 22.9 - 35.8 03/05/2018 [facility] HEMATOLOGY Basophils # 0.1 0.0 - 0.2 03/05/2018 [facility] CHEM PANEL B/C Ratio 18 6 - 25 03/05/2018 [facility] CHEM PANEL Phosphorus 4.0 2.5 - 4.5 03/05/2018 [facility] URINE AND STOOL UA Urobilinogen <=1.0 mg/dL 0.1 - 1.0 03/04/2018 [facility] URINE AND STOOL UA Color Ltyellow 03/04/2018 [facility] URINE AND STOOL UA pH 6.0 5.0 - 8.0 03/04/2018 [facility] URINE AND STOOL UA Spec Grav 1.009 <=1.030 03/04/2018 [facility] URINE AND STOOL UA Turbidity Clear (03/04/18 2:48 PM) Clear 03/04/2018 [facility] URINE AND STOOL UA Ketones Negative mg/dL Negative mg/dL 03/04/2018 [facility] URINE AND STOOL UA Bili Negative *NA* (03/04/18 2:48 PM) Negative 03/04/2018 [facility] URINE AND STOOL UA Blood Negative (03/04/18 2:48 PM) Negative 03/04/2018 [facility] URINE AND STOOL UA Glucose Negative mg/dL Negative mg/dL 03/04/2018 [facility] URINE AND STOOL UA Protein 100 mg/dL Negative mg/dL 03/04/2018 [facility] URINE AND STOOL UA RBC 1 0 - 2 03/04/2018 [facility] URINE AND STOOL UA Bacteria Many /HPF None Seen /HPF 03/04/2018 [facility] URINE AND STOOL UA Leuk Est Trace *ABN* (03/04/18 2:48 PM) Negative 03/04/2018 [facility] URINE AND STOOL UA Sq Epi Occasional /LPF Few /LPF 03/04/2018 [facility] URINE AND STOOL UA WBC 5 0 - 5 03/04/2018 [facility] URINE AND STOOL UA Nitrite Negative (03/04/18 2:48 PM) Negative 03/04/2018 [facility] BLOOD [facility] RESULTS ABO/Rh O POS 03/04/2018 [facility] BLOOD [facility] RESULTS Antibody Scrn Negative (03/04/18 2:23 PM) 03/04/2018 [facility] BLOOD [facility] RESULTS FFP product Product available (03/04/18 12:35 PM) 03/04/2018 [facility] BLOOD BANK RESULTS Platelet product Product available (03/04/18 12:35 PM) 03/04/2018 [facility] CHEM PANEL Phosphorus 3.9 2.5 - 4.5 03/04/2018 [facility] CARDIAC ENZYMES Troponin-I 0.02 0.00 - 0.40 03/02/2018 [facility] CARDIAC ENZYMES Total CK 65 12 - 191 03/02/2018 [facility] CARDIAC ENZYMES Troponin-I 0.04 0.00 - 0.40 03/01/2018 [facility] CARDIAC ENZYMES Total CK 73 12 - 191 03/01/2018 [facility] CARDIAC ENZYMES Troponin-I 0.03 0.00 - 0.40 02/28/2018 [facility] CARDIAC ENZYMES BNP 301 <=100 pg/mL 02/28/2018 [facility] CARDIAC ENZYMES Total CK 136 12 - 191 02/28/2018 [facility] CARDIAC ENZYMES CK MB 1.7 0.5 - 3.6 02/28/2018 [facility] CARDIAC ENZYMES CK MB Index 1.2 0.0 - 2.5 02/28/2018 [facility] ELECTROLYTES AGAP 16.7 10.0 - 20.0 02/21/2018 [facility] ELECTROLYTES eGFR 8 02/21/2018 Result Comment: [...] should be multiplied by the estimated BMI. [facility] ELECTROLYTES Potassium Lvl 4.7 3.5 - 5.1 02/21/2018 [facility] ELECTROLYTES BUN 82 7 - 22 02/21/2018 [facility] ELECTROLYTES Glucose Lvl 77 70 - 99 02/21/2018 [facility] ELECTROLYTES Creatinine Lvl 4.9 6 0.50 - 1.40 02/21/2018 [facility] ELECTROLYTES Sodium Lvl 138 135 - 145 02/21/2018 [facility] ELECTROLYTES CO2 24 24 - 32 02/21/2018 [facility] ELECTROLYTES Chloride Lvl 102 95 - 109 02/21/2018 [facility] ELECTROLYTES Calcium Lvl 7.8 8.5 - 10.5 02/21/2018 [facility] HEMATOLOGY PTT 59.5 22.9 - 35.8 02/21/2018 [facility] [facility] CHEM PANEL Albumin Lvl 3.4 3.5 - 5.0 02/20/2018 [facility] CHEM PANEL Alk Phos 68 39 - 136 02/20/2018 [facility] CHEM PANEL Total Protein 6.4 6.4 - 8.4 02/20/2018 [facility] CHEM PANEL ALT 17 0 - 65 02/20/2018 [facility] CHEM PANEL AST 35 0 - 37 02/20/2018 [facility] CHEM PANEL Bili Total 0.3 0.2 - 1.3 02/20/2018 [facility] CHEM PANEL Bili Direct <0.1 0.0 - 0.3 02/20/2018 [facility] CHEM PANEL Bili Indirect >0.2 0.0 - 1.0 02/20/2018 [facility] CHEM PANEL A/G Ratio 1.1 0.7 - 1.6 02/20/2018 [facility] CHEM PANEL Globulin 3.0 2.7 - 4.2 02/20/2018 [facility] CHEM PANEL eGFR 7 02/20/2018 Result [...] should be multiplied by the estimated BMI. [facility] CHEM PANEL BUN 82 7 - 22 02/20/2018 [facility] CHEM PANEL Glucose Lvl 92 70 - 99 02/20/2018 [facility] CHEM PANEL Creatinine Lvl 5.75 0.50 - 1.40 02/20/2018 [facility] CHEM PANEL Chloride Lvl 102 95 - 109 02/20/2018 [facility] CHEM PANEL Calcium Lvl 7.5 8.5 - 10.5 02/20/2018 [facility] CHEM PANEL Potassium Lvl 4.9 3.5 - 5.1 02/20/2018 [facility] CHEM PANEL CO2 27 24 - 32 02/20/2018 [facility] CHEM PANEL Sodium Lvl 140 135 - 145 02/20/2018 [facility] CHEM PANEL AGAP 15.9 10.0 - 20.0 02/20/2018 [facility] HEMATOLOGY PTT 70.0 22.9 - 35.8 02/20/2018 [facility] HEMATOLOGY Lymphocytes # 1.5 1.0 - 5.5 02/20/2018 [facility] HEMATOLOGY Eosinophils # 0.5 0.0 - 0.5 02/20/2018 [facility] HEMATOLOGY Monocytes # 0.5 0.0 - 0.8 02/20/2018 [facility] HEMATOLOGY Segs-Bands # 5.4 1.5 - 8.1 02/20/2018 [facility] HEMATOLOGY Segs 68.0 45.0 - 75.0 02/20/[address] [facility] Lymphocytes 18.4 20.0 - 40.0 02/20/2018 [facility] HEMATOLOGY Monocytes 6.9 2.0 - 12.0 02/20/2018 [facility] HEMATOLOGY Eosinophils 6.3 0.0 - 4.0 02/20/2018 [facility] HEMATOLOGY Basophils 0.4 0.0 - 1.0 02/20/2018 [facility] HEMATOLOGY RDW 14.1 11.5 - 14.5 02/20/[address] [facility] MPV 9.1 7.4 - 10.4 02/20/[address] [facility] RBC 2.98 4.20 - 5.40 02/20/[address] [facility] Platelet 138 133 - 450 02/20/[address] [facility] MCHC 33.8 32.0 - 36.0 02/20/2018 [facility] HEMATOLOGY MCV 86.3 80.0 - 98.0 02/20/2018 [facility] HEMATOLOGY MCH 29.2 27.0 - 31.0 02/20/2018 [facility] HEMATOLOGY Hgb 8.7 12.0 - 16.0 02/20/2018 [facility] HEMATOLOGY Hct 25.7 36.0 - 48.0 02/20/[address] [facility] WBC 7.9 3.7 - 10.4 02/20/2018 [facility] HEMATOLOGY INR 1.05 0.85 - 1.17 02/19/2018 [facility] HEMATOLOGY PT 13.7 12.0 - 14.7 02/19/2018 [facility] HEMATOLOGY PTT 63.8 22.9 - 35.8 02/19/2018 [facility] CHEM PANEL Bili Direct 0.1 0.0 - 0.3 02/19/2018 [facility] CHEM PANEL eGFR 6 02/19/2018 Result [...] should be multiplied by the estimated BMI. [facility] CHEM PANEL Alk Phos 72 39 - 136 02/19/2018 [facility] CHEM PANEL Bili Total 0.4 0.2 - 1.3 02/19/2018 [facility] CHEM PANEL AST 33 0 - 37 02/19/2018 [facility] CHEM PANEL ALT 16 0 - 65 02/19/2018 [facility] CHEM PANEL BUN 81 7 - 22 02/19/2018 [facility] CHEM PANEL CO2 23 24 - 32 02/19/2018 [facility] CHEM PANEL AGAP 17.9 10.0 - 20.0 02/19/2018 [facility] CHEM PANEL Chloride Lvl 101 95 - 109 02/19/2018 [facility] CHEM PANEL Calcium Lvl 8.2 8.5 - 10.5 02/19/2018 [facility] CHEM PANEL Sodium Lvl 137 135 - 145 02/19/2018 [facility] CHEM PANEL A/G Ratio 0.9 0.7 - 1.6 02/19/2018 [facility] CHEM PANEL Globulin 3.8 2.7 - 4.2 02/19/2018 [facility] CHEM PANEL Albumin Lvl 3.6 3.5 - 5.0 02/19/2018 [facility] CHEM PANEL Potassium Lvl 4.9 3.5 - 5.1 02/19/2018 [facility] CHEM PANEL Glucose Lvl 110 70 - 99 02/19/2018 [facility] CHEM PANEL Total Protein 7.4 6.4 - 8.4 02/19/2018 [facility] CHEM PANEL B/C Ratio 13 6 - 25 02/19/2018 [facility] CHEM PANEL Creatinine Lvl 6.25 0.50 - 1.40 02/19/2018 [facility] HEMATOLOGY Hct 27.6 36.0 - 48.0 02/19/2018 [facility] HEMATOLOGY Hgb 9.4 12.0 - 16.0 02/19/2018 [facility] HEMATOLOGY RBC 3.21 4.20 - 5.40 02/19/2018 [facility] HEMATOLOGY WBC 5.6 3.7 - 10.4 02/19/2018 [facility] HEMATOLOGY Platelet 136 133 - 450 02/19/[address] [facility] MCH 29.4 27.0 - 31.0 02/19/[address] [facility] MCV 86.1 80.0 - 98.0 02/19/[address] [facility] RDW 14.0 11.5 - 14.5 02/19/[address] [facility] MCHC 34.2 32.0 - 36.0 02/19/[address] [facility] MPV 8.9 7.4 - 10.4 02/19/2018 [facility] HEMATOLOGY Lymphocytes # 1.3 1.0 - 5.5 02/19/2018 [facility] HEMATOLOGY Segs-Bands # 3.7 1.5 - 8.1 02/19/2018 [facility] HEMATOLOGY Basophils 0.3 0.0 - 1.0 02/19/2018 [facility] HEMATOLOGY Eosinophils 2.3 0.0 - 4.0 02/19/2018 [facility] HEMATOLOGY Eosinophils # 0.1 0.0 - 0.5 02/19/2018 [facility] HEMATOLOGY Monocytes # 0.4 0.0 - 0.8 02/19/2018 [facility] HEMATOLOGY Segs 66.7 45.0 - 75.0 02/19/2018 [facility] HEMATOLOGY Monocytes 7.2 2.0 - 12.0 02/19/2018 [facility] HEMATOLOGY Lymphocytes 23.5 20.0 - 40.0 02/19/2018 [facility] CHEM PANEL Albumin Lvl 2.6 3.5 - 5.0 02/18/2018 [facility] CHEM PANEL Bili Indirect >0.1 0.0 - 1.0 02/18/2018 [facility] CHEM PANEL Globulin 3.9 2.7 - 4.2 02/18/2018 [facility] CHEM PANEL A/G Ratio 0.7 0.7 - 1.6 02/18/2018 [facility] CHEM PANEL Bili Direct <0.1 0.0 - 0.3 02/18/2018 [facility] CHEM PANEL Alk Phos 79 39 - 136 02/18/2018 [facility] CHEM PANEL Bili Total 0.2 0.2 - 1.3 02/18/2018 [facility] CHEM PANEL ALT 16 0 - 65 02/18/2018 [facility] CHEM PANEL Albumin Lvl 2.6 3.5 - 5.0 02/18/2018 [facility] CHEM PANEL Total Protein 6.5 6.4 - 8.4 02/18/2018 [facility] CHEM PANEL AST 33 0 - 37 02/18/2018 [facility] IMMUNOLOGY Hep A IgM Negat zaria *NA* (02/18/18 2:16 PM) Negative 02/18/2018 [facility] IMMUNOLOGY Hep Bs Ag Negat zaria *NA* (02/18/18 2:16 PM) Negative 02/18/2018 [facility] MOLECULAR DIAGNOSTIC HCV RNA Log10 6.8 02/18/2018 [facility] MOLECULAR DIAGNOSTIC HCV RNA VirLoad [id number] 02/18/2018 [facility] TUMOR MARKERS AFP 2.1 0.0 - 11.0 02/18/2018 [facility] BLOOD BANK RESULTS Antibody Scrn Negative (02/18/18 12:40 PM) 02/18/2018 [facility] BLOOD BANK RESULTS ABO/Rh O POS 02/18/2018 [facility] BLOOD BANK RESULTS RBC product Product available 1 (02/18/18 9:25 AM) 02/18/2018 Result Comment: 02/18/2018 1 4:37 [id number]
notified Sohail [facility] HEMATOLOGY Lymphocytes # 1.6 1.0 - 5.5 02/18/2018 [facility] HEMATOLOGY Segs-Bands # 3.3 1.5 - 8.1 02/18/2018 [facility] HEMATOLOGY Eosinophils # 0.5 0.0 - 0.5 02/18/2018 [facility] HEMATOLOGY Monocytes # 0.5 0.0 - 0.8 02/18/2018 [facility] HEMATOLOGY Eosinophils 8.8 0.0 - 4.0 02/18/2018 [facility] HEMATOLOGY Monocytes 8.6 2.0 - 12.0 02/18/2018 [facility] HEMATOLOGY Basophils 0.3 0.0 - 1.0 02/18/2018 [facility] HEMATOLOGY Lymphocytes 26.3 20.0 - 40.0 [...] Hospital WBC 5.9 3.7 - 10.4 02/18/2018 [facility] HEMATOLOGY INR 1.56 0.85 - 1.17 02/18/[address] [facility] PT 18.8 12.0 - 14.7 02/18/2018 [facility] CARDIAC ENZYMES Troponin-I 7.70 0.00 - 0.40 02/16/2018 Result Comment: Critical Result(s) crews d to Pam Lema at 02/16/2018 10:06 by VF. Read back OK. [facility] CARDIAC ENZYMES Total CK 221 12 - 191 02/16/2018 [facility] CARDIAC ENZYMES CK MB Index 5.1 0.0 - 2.5 02/16/2018 [facility] CARDIAC ENZYMES CK MB 11.2 0.5 - 3.6 02/16/2018 [facility] HEMATOLOGY INR 1.10 0.85 - 1.17 02/16/2018 [facility] HEMATOLOGY PT 14.2 12.0 - 14.7 02/16/2018 [facility] CARDIAC ENZYMES Total CK 258 12 - 191 02/16/2018 [facility] CARDIAC ENZYMES Troponin-I 11.00 0.00 - 0.40 02/16/2018 Result Comment: Critical Result(s) crews d to Cem Osman at 02/16/2018 03:14 by . Read back OK. [facility] CARDIAC ENZYMES CK MB 16.3 0.5 - 3.6 02/16/2018 [facility] CARDIAC ENZYMES CK MB Index 6.3 0.0 - 2.5 02/16/2018 [facility] LIPIDS VLDL 24 02/16/2018 [facility] LIPIDS LDL (Calculated) 70 <=99 mg/dL 02/16/2018 [facility] LIPIDS HDL 38 >=61 mg/dL 02/16/2018 [facility] LIPIDS Chol 132 <=199 mg/dL 02/16/2018 [facility] LIPIDS Trig 121 <=149 mg/dL 02/16/2018 [facility] LIPIDS CHD Risk 3.47 3.90 - 5.80 02/16/2018 [facility] SPECIAL CHEMISTRY Hgb A1C 7.1 <=5.6 % 02/16/2018 [facility] CARDIAC ENZYMES Total CK 324 12 - 191 02/16/2018 [facility] CARDIAC ENZYMES CK MB 22.2 0.5 - 3.6 02/16/2018 [facility] CARDIAC ENZYMES Troponin-I 11.00 0.00 - 0.40 02/16/2018 Result Comment: Critical Result(s) crews d to nandini martin at 02/15/2018 20:53 by douglas. Read back OK. [facility] LIPIDS CHD Risk 3.92 3.90 - 5.80 02/15/2018 [facility] LIPIDS LDL (Calculated) 81 <=99 mg/dL 02/15/2018 [facility] LIPIDS VLDL 36 02/15/2018 [facility] LIPIDS HDL 40 >=61 mg/dL 02/15/2018 [facility] LIPIDS Trig 179 <=149 mg/dL 02/15/2018 [facility] LIPIDS Chol 157 <=199 mg/dL 02/15/2018 [facility] SPECIAL CHEMISTRY Hgb A1C 7.3 <=5.6 % 02/15/2018 [facility] URINE AND STOOL UA Urobilinogen <=1.0 mg/dL 0.1 - 1.0 02/15/2018 [facility] URINE AND STOOL UA RBC 4 0 - 2 02/15/2018 [facility] URINE AND STOOL UA Bacteria Occasional /HPF None Seen /HPF 02/15/2018 [facility] URINE AND STOOL UA Hyal Cast 9 0 - 2 02/15/2018 [facility] URINE AND STOOL UA WBC 3 0 - 5 02/15/2018 [facility] URINE AND STOOL UA Blood Small *ABN* (02/14/18 7:01 PM) Negative 02/15/2018 [facility] URINE AND STOOL UA Bili Negative *NA* (02/14/18 7:01 PM) Negative 02/15/2018 [facility] URINE AND STOOL UA Sq Epi Few /LPF Few /LPF 02/15/2018 [facility] URINE AND STOOL UA Leuk Est Trace *ABN* (02/14/18 7:01 PM) Negative 02/15/2018 [facility] URINE AND STOOL UA Nitrite Negative (02/14/18 7:01 PM) Negative 02/15/2018 [facility] URINE AND STOOL UA Turbidity Clear (02/14/18 7:01 PM) Clear 02/15/2018 [facility] URINE AND STOOL UA Glucose 500 mg/dL Negative mg/dL 02/15/2018 [facility] URINE AND STOOL UA Protein >=300 mg/dL Negative mg/dL 02/15/2018 [facility] URINE AND STOOL UA pH 5.0 5.0 - 8.0 02/15/2018 [facility] URINE AND STOOL UA Ketones Negative mg/dL Negative mg/dL 02/15/2018 [facility] URINE AND STOOL UA Spec Grav 1.010 <=1.030 02/15/2018 [facility] URINE AND STOOL UA Color Yellow *NA* (02/14/18 7:01 PM) Yellow 02/15/2018 [facility] CARDIAC ENZYMES CK MB Index 1.6 0.0 - 2.5 02/14/2018 [facility] CHEM PANEL B/C Ratio 21 6 - 02/14/2018 [facility] CHEM PANEL eGFR 02/11/2018 Result Comment: [...] should be multiplied by the estimated BMI. [facility] CHEM PANEL Creatinine Lvl 2.34 0.50 - 1.40 02/11/2018 [facility] CHEM PANEL Sodium Lvl 139 135 - 145 02/11/2018 [facility] CHEM PANEL BUN 46 7 - 22 02/11/2018 [facility] CHEM PANEL Glucose Lvl 76 70 - 99 02/11/2018 [facility] CHEM PANEL Chloride Lvl 106 95 - 109 02/11/2018 [facility] CHEM PANEL CO2 27 24 - 32 02/11/2018 [facility] CHEM PANEL Potassium Lvl 4.5 3.5 - 5.1 02/11/2018 [facility] CHEM PANEL AGAP 10.5 10.0 - 20.0 02/11/2018 [facility] CHEM PANEL Calcium Lvl 8.3 8.5 - 10.5 02/11/2018 [facility] ELECTROLYTES AGAP 11.3 10.0 - 20.0 02/10/2018 [facility] ELECTROLYTES eGFR 24 02/10/2018 Result Comment: [...] should be multiplied by the estimated BMI. [facility] ELECTROLYTES Creatinine Lvl 2.1 2 0.50 - 1.40 02/10/2018 [facility] ELECTROLYTES Calcium Lvl 8.5 8.5 - 10.5 02/10/2018 [facility] ELECTROLYTES CO2 26 24 - 32 02/10/2018 [facility] ELECTROLYTES Chloride Lvl 106 95 - 109 02/10/2018 [facility] ELECTROLYTES Sodium Lvl 139 135 - 145 02/10/2018 [facility] ELECTROLYTES Potassium Lvl 4.3 3.5 - 5.1 02/10/2018 [facility] ELECTROLYTES BUN 40 7 - 22 02/10/2018 [facility] ELECTROLYTES Glucose Lvl 83 70 - 99 02/10/2018 [facility] HEMATOLOGY MPV 8.8 7.4 - 10.4 02/10/2018 [facility] HEMATOLOGY MCV 86.9 80.0 - 98.0 02/10/2018 [facility] HEMATOLOGY MCH 29.3 27.0 - 31.0 02/10/2018 [facility] HEMATOLOGY MCHC 33.7 32.0 - 36.0 02/10/2018 [facility] HEMATOLOGY RDW 14.5 11.5 - 14.5 02/10/2018 [facility] HEMATOLOGY Platelet 143 133 - 450 02/10/2018 [facility] HEMATOLOGY Hct 26.0 36.0 - 48.0 02/10/2018 [facility] HEMATOLOGY WBC 5.9 3.7 - 10.4 02/10/2018 [facility] HEMATOLOGY Hgb 8.8 12.0 - 16.0 02/10/2018 [facility] HEMATOLOGY RBC 2.99 4.20 - 5.40 02/10/2018 [facility] HEMATOLOGY Segs-Bands # 2.7 1.5 - 8.1 02/10/2018 [facility] HEMATOLOGY Lymphocytes # 1.5 1.0 - 5.5 02/10/2018 [facility] HEMATOLOGY Monocytes # 0.9 0.0 - 0.8 02/10/2018 [facility] HEMATOLOGY Eosinophils # 0.8 0.0 - 0.5 02/10/2018 [facility] HEMATOLOGY Eosinophils 13.7 0.0 - 4.0 02/10/2018 [facility] HEMATOLOGY Basophils 0.6 0.0 - 1.0 02/10/2018 [facility] HEMATOLOGY Segs 45.8 45.0 - 75.0 02/10/2018 [facility] HEMATOLOGY Lymphocytes 25.3 20.0 - 40.0 02/10/2018 [facility] HEMATOLOGY Monocytes 14.6 2.0 - 12.0 02/10/2018 [facility] ELECTROLYTES Potassium Lvl 4.9 3.5 - 5.1 02/10/2018 [facility] ANEMIA STUDY TIBC 234 228 - 428 02/09/2018 [facility] ANEMIA STUDY Iron 46 30 - 160 02/09/2018 [facility] ANEMIA STUDY UIBC 188 110 - 370 02/09/2018 [facility] ANEMIA STUDY % [place] Fe 20 12 - 57 02/09/2018 [facility] CARDIAC ENZYMES BNP 78 <=100 pg/mL 02/09/2018 [facility] CHEM PANEL Calcium Lvl 8.0 8.5 - 10.5 02/09/2018 [facility] CHEM PANEL CO2 26 24 - 32 02/09/2018 [facility] CHEM PANEL Chloride Lvl 107 95 - 109 02/09/2018 [facility] CHEM PANEL eGFR 25 02/09/2018 Result [...] should be multiplied by the estimated BMI. [facility] CHEM PANEL Sodium Lvl 141 135 - 145 02/09/2018 [facility] CHEM PANEL BUN 41 7 - 22 02/09/2018 [facility] CHEM PANEL Glucose Lvl 175 70 - 99 02/09/2018 [facility] CHEM PANEL Creatinine Lvl 2.00 0.50 - 1.40 02/09/2018 [facility] CHEM PANEL AGAP 13.3 10.0 - 20.0 02/09/2018 [facility] CHEM PANEL Magnesium Lvl 2.5 1.8 - 2.4 02/09/2018 [facility] ELECTROLYTES Chloride Lvl 108 95 - 109 02/09/2018 [facility] ELECTROLYTES eGFR 25 02/09/2018 Result Comment: [...] should be multiplied by the estimated BMI. [facility] ELECTROLYTES BUN 41 7 - 22 02/09/2018 [facility] ELECTROLYTES Glucose Lvl 179 70 - 99 02/09/2018 [facility] ELECTROLYTES Sodium Lvl 141 135 - 145 02/09/2018 [facility] ELECTROLYTES Creatinine Lvl 2.0 0 0.50 - 1.40 02/09/2018 [facility] ELECTROLYTES Calcium Lvl 7.9 8.5 - 10.5 02/09/2018 [facility] ELECTROLYTES CO2 27 24 - 32 02/09/2018 [facility] ELECTROLYTES AGAP 11.3 10.0 - 20.0 02/09/2018 [facility] HEMATOLOGY Hct 24.1 36.0 - 48.0 [...] Lymphocytes # 1.4 1.0 - 5.5 02/09/2018 [facility] HEMATOLOGY MPV 8.6 7.4 - 10.4 02/09/2018 [facility] HEMATOLOGY RDW 14.3 11.5 - 14.5 02/09/2018 [facility] HEMATOLOGY MCHC 32.9 32.0 - 36.0 02/09/2018 [facility] HEMATOLOGY Platelet 127 133 - 450 02/09/2018 [facility] HEMATOLOGY WBC 5.1 3.7 - 10.4 02/09/2018 [facility] HEMATOLOGY RBC 2.79 4.20 - 5.40 02/09/2018 [facility] HEMATOLOGY Hgb 8.0 12.0 - 16.0 02/09/2018 [facility] HEMATOLOGY MCV 86.8 80.0 - 98.0 02/09/2018 [facility] HEMATOLOGY Hct 24.2 36.0 - 48.0 02/09/2018 [facility] HEMATOLOGY MCH 28.6 27.0 - 31.0 02/09/2018 [facility] LIPIDS CHD Risk 4.38 3.90 - 5.80 02/09/2018 [facility] LIPIDS Chol 171 <=199 mg/dL 02/09/2018 [facility] LIPIDS VLDL 45 02/09/2018 [facility] LIPIDS LDL (Calculated) 87 <=99 mg/dL 02/09/2018 [facility] LIPIDS Trig 226 <=149 mg/dL 02/09/2018 [facility] LIPIDS HDL 39 >=61 mg/dL 02/09/2018 [facility] SPECIAL CHEMISTRY Hgb A1C 7.7 <=5.6 % 02/09/2018 [facility] CARDIAC ENZYMES Total CK 70 12 - 191 02/09/2018 [facility] CARDIAC ENZYMES Troponin-I <0.02 0.00 - 0.40 02/09/2018 [facility] CARDIAC ENZYMES CK MB Index 2.2 0.0 - 2.5 02/08/2018 [facility] CARDIAC ENZYMES CK MB 1.8 0.5 - 3.6 02/08/2018 [facility] CARDIAC ENZYMES Total CK 82 12 - 191 02/08/2018 [facility] CARDIAC ENZYMES Troponin-I <0.02 0.00 - 0.40 02/08/2018 [facility] URINE AND STOOL UA Hyal Cast 1 0 - 2 02/08/2018 [facility] URINE AND STOOL UA Urobilinogen <=1.0 mg/dL 0.1 - 1.0 02/08/[address] [facility] [address] URINE AND STOOL UA Nitrite Negative (02/08/18 2:25 PM) Negative 02/08/2018 [facility] URINE AND STOOL UA Blood Negative (02/08/18 2:25 PM) Negative 02/08/2018 [facility] URINE AND STOOL UA Leuk Est Negative (02/08/18 2:25 PM) Negative 02/08/2018 [facility] URINE AND STOOL UA Bacteria Moderate /HPF None Seen /HPF 02/08/[address] [facility] [address] URINE AND STOOL UA WBC 2 0 - 5 02/08/2018 [facility] URINE AND STOOL UA RBC 3 0 - 2 02/08/2018 [facility] URINE AND STOOL UA Sq Epi Occasional /LPF Few /LPF 02/08/2018 [facility] URINE AND STOOL UA Bili Negative *NA* (02/08/18 2:25 PM) Negative 02/08/2018 [facility] URINE AND STOOL UA Ketones Negative mg/dL Negative mg/dL 02/08/2018 [facility] URINE AND STOOL UA Protein >=300 mg/dL Negative mg/dL 02/08/2018 [facility] URINE AND STOOL UA Glucose 50 mg/dL Negative mg/dL 02/08/2018 [facility] URINE AND STOOL UA Color Ltyellow 02/08/2018 [facility] URINE AND STOOL UA pH 6.0 5.0 - 8.0 02/08/2018 [facility] URINE AND STOOL UA Spec Grav 1.012 <=1.030 02/08/2018 [facility] URINE AND STOOL UA Turbidity Clear (02/08/18 2:25 PM) Clear 02/08/2018 [facility] CARDIAC ENZYMES CK MB Index 2.0 0.0 - 2.5 02/08/2018 [facility] CARDIAC ENZYMES BNP 85 <=100 pg/mL 02/08/2018 [facility] CARDIAC ENZYMES CK MB 1.8 0.5 - 3.6 02/08/2018 [facility] CARDIAC ENZYMES Troponin-I <0.02 0.00 - 0.40 02/08/2018 [facility] CARDIAC ENZYMES Total CK 89 12 - 191 02/08/2018 [facility] CHEM PANEL Magnesium Lvl 2.5 1.8 - 2.4 02/08/2018 [facility] CHEM PANEL Phosphorus 4.2 2.5 - 4.5 02/08/2018 [facility] CHEM PANEL Globulin 3.9 2.7 - 4.2 02/08/2018 [facility] CHEM PANEL A/G Ratio 0.7 0.7 - 1.6 02/08/2018 [facility] CHEM PANEL Alk Phos 103 39 - 136 02/08/2018 [facility] CHEM PANEL B/C Ratio 22 6 - 25 02/08/2018 [facility] CHEM PANEL Bili Total 0.2 0.2 - 1.3 02/08/2018 [facility] CHEM PANEL Total Protein 6.7 6.4 - 8.4 02/08/2018 [facility] CHEM PANEL ALT 14 0 - 65 02/08/2018 [facility] CHEM PANEL AST 30 0 - 37 02/08/2018 [facility] CHEM PANEL Albumin Lvl 2.8 3.5 - 5.0 02/08/2018 [facility] CHEM PANEL Ammonia 18.0 <=45.0 uMol/L 02/08/2018 [facility] HEMATOLOGY Platelet 155 133 - 450 01/31/2017 [facility] HEMATOLOGY RDW 13.9 11.5 - 14.5 01/31/2017 [facility] HEMATOLOGY MPV 8.1 7.4 - 10.4 01/31/2017 [facility] HEMATOLOGY WBC 5.1 3.7 - 10.4 01/31/2017 [facility] HEMATOLOGY MCHC 32.8 32.0 - 36.0 01/31/2017 [facility] HEMATOLOGY RBC 2.84 4.20 - 5.40 01/31/[address] [facility] Hct 25.0 36.0 - 48.0 01/31/[address] [facility] Hgb 8.2 12.0 - 16.0 01/31/2017 [facility] HEMATOLOGY MCV 87.9 80.0 - 98.0 01/31/[address] [facility] MCH 28.8 27.0 - 31.0 01/31/2017 [facility] HEMATOLOGY Monocytes 10.6 2.0 - 12.0 01/31/2017 [facility] HEMATOLOGY Lymphocytes 26.6 20.0 - 40.0 01/31/2017 [facility] HEMATOLOGY Basophils 0.5 0.0 - 1.0 01/31/2017 [facility] HEMATOLOGY Eosinophils 8.3 0.0 - 4.0 01/31/2017 [facility] HEMATOLOGY Eosinophils # 0.4 0.0 - 0.5 01/31/2017 [facility] HEMATOLOGY Segs 54.0 45.0 - 75.0 01/31/[address] [facility] Lymphocytes # 1.4 1.0 - 5.5 01/31/[address] [facility] Monocytes # 0.5 0.0 - 0.8 01/31/[address] [facility] Segs-Bands # 2.8 1.5 - 8.1 01/31/2017 [facility] CHEM PANEL Creatinine Lvl 1.30 0.50 - 1.40 01/30/2017 [facility] CHEM PANEL BUN 24 7 - 22 01/30/2017 [facility] CHEM PANEL Calcium Lvl 8.1 8.5 - 10.5 01/30/2017 [facility] CHEM PANEL AGAP 8.0 10.0 - 20.0 01/30/2017 [facility] CHEM PANEL Potassium Lvl 4.0 3.5 - 5.1 01/30/2017 [facility] CHEM PANEL Sodium Lvl 140 135 - 145 01/30/2017 [facility] CHEM PANEL Glucose Lvl 109 70 - 99 01/30/2017 [facility] CHEM PANEL eGFR 43 01/30/2017 Result [...] PANEL CO2 34 24 - 32 01/30/2017 [facility] CHEM PANEL eGFR 39 01/29/2017 Result [...] Glucose Lvl 98 70 - 99 01/29/2017 [facility] CHEM PANEL Creatinine Lvl 1.40 0.50 - 1.40 01/29/2017 [facility] CHEM PANEL BUN 26 7 - 22 01/29/2017 [facility] CHEM PANEL Sodium Lvl 141 135 - 145 01/29/2017 [facility] CHEM PANEL Potassium Lvl 4.3 3.5 - 5.1 01/29/2017 [facility] CHEM PANEL Chloride Lvl 100 95 - 109 01/29/2017 [facility] CHEM PANEL Calcium Lvl 7.9 8.5 - 10.5 01/29/2017 [facility] CHEM PANEL CO2 35 24 - 32 01/29/2017 [facility] CHEM PANEL AGAP 10.3 10.0 - [...] Hospital Eosinophils 7.0 0.0 - 4.0 01/29/2017 [facility] CHEM PANEL eGFR 31 01/28/2017 Result [...] should be multiplied by the estimated BMI. [facility] CHEM PANEL Chloride Lvl 104 95 - 109 01/28/2017 [facility] CHEM PANEL Potassium Lvl 4.0 3.5 - 5.1 01/28/2017 [facility] CHEM PANEL Calcium Lvl 8.2 8.5 - 10.5 01/28/2017 [facility] CHEM PANEL CO2 32 24 - 32 01/28/2017 [facility] CHEM PANEL Sodium Lvl 141 135 - 145 01/28/2017 [facility] CHEM PANEL Glucose Lvl 71 70 - 99 01/28/2017 [facility] CHEM PANEL Creatinine Lvl 1.70 0.50 - 1.40 01/28/2017 [facility] CHEM PANEL BUN 31 7 - 22 01/28/2017 [facility] CHEM PANEL AGAP 9.0 10.0 - [...] Monocytes # 0.5 0.0 - 0.8 01/28/2017 [facility] HEMATOLOGY Basophils 0.3 0.0 - 1.0 01/28/2017 [facility] HEMATOLOGY Eosinophils 7.9 0.0 - 4.0 01/28/2017 [facility] HEMATOLOGY Monocytes 8.1 2.0 - 12.0 01/28/2017 [facility] HEMATOLOGY Lymphocytes 26.9 20.0 - 40.0 01/28/2017 [facility] HEMATOLOGY Segs-Bands # 3.5 1.5 - 8.1 01/28/2017 [facility] HEMATOLOGY Segs 56.8 45.0 - 75.0 01/28/2017 [facility] URINE CHEM U Prot/Creat 2.6 01/25/2017 [facility] URINE CHEM U Eos None Seen (01/25/17 12:26 PM) None Seen 01/25/2017 [facility] URINE CHEM U Protein 178.0 01/25/2017 [facility] URINE CHEM U Creatinine 68.00 01/25/2017 [facility] URINE CHEM U Sodium 57 01/25/2017 [facility] URINE AND STOOL UA Bili Negative *NA* (01/24/17 11:19 AM) Negative 01/24/2017 [facility] URINE AND STOOL UA Glucose 500 mg/dL Negative mg/dL 01/24/2017 [facility] URINE AND STOOL UA Ketones Negative mg/dL Negative mg/dL 01/24/[address] [facility] [address] URINE AND STOOL UA Sq Epi [...] Urobilinogen <=1.0 mg/dL 0.1 - 1.0 01/24/[address] [facility] [address] URINE AND STOOL UA Hyal Cast 18 0 - 2 01/24/2017 [facility] URINE AND STOOL UA RBC 3 0 - 2 01/24/2017 [facility] URINE AND STOOL UA Turbidity Slight *ABN* (01/24/17 11:19 AM) Clear 01/24/2017 [facility] URINE AND STOOL UA Color Yellow *NA* (01/24/17 11:19 AM) Yellow 01/24/2017 [facility] URINE AND STOOL UA Protein >=300 mg/dL Negative mg/dL 01/24/2017 [facility] URINE AND STOOL UA Spec Grav 1.014 <=1.030 01/24/2017 [facility] URINE AND STOOL UA pH 5.0 5.0 - 8.0 01/24/2017 [facility] CARDIAC ENZYMES CK MB Index 1.8 0.0 - 2.5 01/24/2017 [facility] CARDIAC ENZYMES BNP 501 <=100 pg/mL 01/24/2017 [facility] CARDIAC ENZYMES CK MB 3.5 0.5 - 3.6 01/24/2017 [facility] CARDIAC ENZYMES Total CK 194 12 - 191 01/24/2017 [facility] CARDIAC ENZYMES Troponin-I 0.15 0.00 - 0.40 01/24/2017 [facility] CHEM PANEL Ketone Quantitative 0.44 <=0.27 mmol/L 01/24/2017 [facility] CHEM PANEL Phosphorus 4.8 2.5 - 4.5 01/24/2017 [facility] CHEM PANEL Magnesium Lvl 2.5 1.8 - 2.4 01/24/2017 [facility] CHEM PANEL Lipase Lvl 231 73 - 393 01/24/2017 [facility] CHEM PANEL Bili Total 0.3 0.2 - 1.3 01/24/2017 [facility] CHEM PANEL Globulin 4.8 2.7 - 4.2 01/24/2017 [facility] CHEM PANEL Alk Phos 124 39 - 136 01/24/2017 [facility] CHEM PANEL AST 38 0 - 37 01/24/2017 [facility] CHEM PANEL ALT 22 0 - 65 01/24/2017 [facility] CHEM PANEL A/G Ratio 0.5 0.7 - 1.6 01/24/2017 [facility] CHEM PANEL Albumin Lvl 2.4 3.5 - 5.0 01/24/2017 [facility] CHEM PANEL Total Protein 7.2 6.4 - 8.4 01/24/2017 [facility] CHEM PANEL B/C Ratio 18 6 - 25 01/24/2017 [facility] HEMATOLOGY Basophils # 0.1 0.0 - 0.2 01/24/2017 [facility] HEMATOLOGY PTT 25.3 22.9 - 35.8 01/24/2017 [facility] HEMATOLOGY INR 1.16 0.85 - 1.17 01/24/2017 [facility] HEMATOLOGY PT 15.0 12.0 - 14.7 01/24/2017 [facility] ELECTROLYTES AGAP 10.0 10.0 - 20.0 01/18/2017 [facility] ELECTROLYTES eGFR 39 01/18/2017 Result Comment: [...] should be multiplied by the estimated BMI. [facility] ELECTROLYTES Calcium Lvl 7.6 8.5 - 10.5 01/18/2017 [facility] ELECTROLYTES Creatinine Lvl 1.4 0 0.50 - 1.40 01/18/2017 [facility] ELECTROLYTES BUN 16 7 - 22 01/18/2017 [facility] ELECTROLYTES CO2 25 24 - 32 01/18/2017 [facility] ELECTROLYTES Chloride Lvl 110 95 - 109 01/18/2017 [facility] ELECTROLYTES Potassium Lvl 4.0 3.5 - 5.1 01/18/2017 [facility] ELECTROLYTES Sodium Lvl 141 135 - 145 01/18/2017 [facility] ELECTROLYTES Glucose Lvl 120 70 - 99 01/18/[address] [facility] MCHC 34.4 32.0 - 36.0 01/18/2017 [facility] HEMATOLOGY RBC 2.71 4.20 - 5.40 01/18/[address] [facility] WBC 5.1 3.7 - 10.4 01/18/[address] [facility] Hgb 8.1 12.0 - 16.0 01/18/2017 [facility] HEMATOLOGY MCV 86.3 80.0 - 98.0 [...] Hospital Eosinophils 6.0 0.0 - 4.0 01/18/2017 [facility] HEMATOLOGY Basophils 0.4 0.0 - 1.0 [...] Hospital Segs 52.6 45.0 - 75.0 01/18/2017 [facility] CHEM PANEL Ammonia 18.0 <=45.0 uMol/L 2017 [facility] ANEMIA STUDY Vitamin B12 Lvl 528 254 - 1320 2017 [facility] CHEM PANEL eGFR 39 2017 Result [...] should be multiplied by the estimated BMI. [facility] CHEM PANEL Sodium Lvl 143 135 - 145 2017 [facility] CHEM PANEL Glucose Lvl 131 70 - 99 2017 [facility] CHEM PANEL BUN 14 7 - 22 2017 [facility] CHEM PANEL Calcium Lvl 7.4 8.5 - 10.5 2017 [facility] CHEM PANEL Potassium Lvl 4.0 3.5 - 5.1 2017 [facility] CHEM PANEL Chloride Lvl 110 95 - 109 2017 [facility] CHEM PANEL Creatinine Lvl 1.40 0.50 - 1.40 2017 [facility] CHEM PANEL CO2 25 24 - 32 2017 [facility] CHEM PANEL AGAP 12.0 10.0 - 20.0 2017 [facility] HEMATOLOGY MPV 7.8 7.4 - 10.4 2017 [facility] HEMATOLOGY RDW 13.4 11.5 - 14.5 2017 [facility] HEMATOLOGY Platelet 149 133 - 450 2017 [facility] HEMATOLOGY MCHC 34.5 32.0 - 36.0 2017 [facility] HEMATOLOGY MCH 29.7 27.0 - 31.0 2017 [facility] HEMATOLOGY MCV 86.0 80.0 - 98.0 2017 [facility] HEMATOLOGY Hct 24.4 36.0 - 48.0 2017 [facility] HEMATOLOGY Hgb 8.4 12.0 - 16.0 2017 [facility] HEMATOLOGY RBC 2.83 4.20 - 5.40 2017 [facility] HEMATOLOGY WBC 7.5 3.7 - 10.4 2017 [facility] HEMATOLOGY Monocytes 9.1 2.0 - 12.0 2017 [facility] HEMATOLOGY Lymphocytes # 1.6 1.0 - 5.5 2017 [facility] HEMATOLOGY Segs-Bands # 4.9 1.5 - 8.1 2017 [facility] HEMATOLOGY Basophils 0.3 0.0 - 1.0 2017 [facility] HEMATOLOGY Eosinophils 3.6 0.0 - 4.0 2017 [facility] HEMATOLOGY Lymphocytes 21.5 20.0 - 40.0 2017 [facility] HEMATOLOGY Segs 65.5 45.0 - 75.0 2017 [facility] HEMATOLOGY Eosinophils # 0.3 0.0 - 0.5 2017 [facility] HEMATOLOGY Monocytes # 0.7 0.0 - 0.8 2017 [facility] SPECIAL CHEMISTRY Hgb A1C 11.0 <=5.6 % 01/16/2017 [facility] CARDIAC ENZYMES Troponin-I <0.02 0.00 - 0.40 01/16/2017 [facility] CHEM PANEL eGFR 39 01/16/2017 Result [...] should be multiplied by the estimated BMI. [facility] CHEM PANEL Albumin Lvl 1.8 3.5 - 5.0 01/16/2017 [facility] CHEM PANEL AST 20 0 - 37 01/16/2017 [facility] CHEM PANEL ALT 7 0 - 65 01/16/2017 [facility] CHEM PANEL Total Protein 6.0 6.4 - 8.4 01/16/2017 [facility] CHEM PANEL Calcium Lvl 7.3 8.5 - 10.5 01/16/2017 [facility] CHEM PANEL Sodium Lvl 138 135 - 145 01/16/2017 [facility] CHEM PANEL Potassium Lvl 3.6 3.5 - 5.1 01/16/2017 [facility] CHEM PANEL Creatinine Lvl 1.40 0.50 - 1.40 01/16/2017 [facility] CHEM PANEL CO2 27 24 - 32 01/16/2017 [facility] CHEM PANEL Chloride Lvl 107 95 - 109 01/16/2017 [facility] CHEM PANEL Alk Phos 97 39 - 136 01/16/2017 [facility] CHEM PANEL Bili Total 0.3 0.2 - 1.3 01/16/2017 [facility] CHEM PANEL BUN 15 7 - 22 01/16/2017 [facility] CHEM PANEL Glucose Lvl 283 70 - 99 01/16/2017 [facility] CHEM PANEL B/C Ratio 11 6 - 25 01/16/2017 [facility] CHEM PANEL Globulin 4.2 2.7 - 4.2 01/16/2017 [facility] CHEM PANEL A/G Ratio 0.4 0.7 - 1.6 01/16/2017 [facility] CHEM PANEL AGAP 7.6 10.0 - 20.0 01/16/2017 [facility] CHEM PANEL Magnesium Lvl 1.9 1.8 - 2.4 01/16/2017 [facility] CHEM PANEL Phosphorus 3.0 2.5 - 4.5 01/16/2017 [facility] HEMATOLOGY Lymphocytes # 2.2 1.0 - 5.5 01/16/2017 [facility] HEMATOLOGY Basophils 0.3 0.0 - 1.0 01/16/2017 [facility] HEMATOLOGY Segs-Bands # 6.0 1.5 - 8.1 01/16/2017 [facility] HEMATOLOGY Monocytes 8.1 2.0 - 12.0 01/16/2017 [facility] HEMATOLOGY Eosinophils 3.1 0.0 - 4.0 01/16/2017 [facility] HEMATOLOGY Eosinophils # 0.3 0.0 - 0.5 01/16/2017 [facility] HEMATOLOGY Monocytes # 0.8 0.0 - 0.8 01/16/2017 [facility] HEMATOLOGY Lymphocytes 24.0 20.0 - 40.0 01/16/2017 [facility] HEMATOLOGY Segs 64.5 45.0 - 75.0 01/16/2017 [facility] HEMATOLOGY Hgb 9.0 12.0 - 16.0 01/16/2017 [facility] HEMATOLOGY RBC 3.01 4.20 - 5.40 01/16/2017 [facility] HEMATOLOGY MCV 86.4 80.0 - 98.0 01/16/2017 [facility] HEMATOLOGY MCH 29.7 27.0 - 31.0 01/16/2017 [facility] HEMATOLOGY Hct 26.1 36.0 - 48.0 01/16/2017 [facility] HEMATOLOGY RDW 13.5 11.5 - 14.5 01/16/2017 [facility] HEMATOLOGY MCHC 34.4 32.0 - 36.0 01/16/2017 [facility] HEMATOLOGY MPV 8.2 7.4 - 10.4 01/16/2017 [facility] HEMATOLOGY Platelet 125 133 - 450 01/16/2017 [facility] HEMATOLOGY WBC 9.3 3.7 - 10.4 01/16/2017 [facility] CARDIAC ENZYMES Troponin-I <0.02 0.00 - 0.40 01/16/2017 [facility] CHEM PANEL Lactic Acid Lvl 0.5 0.5 - 2.2 01/16/2017 [facility] URINE AND STOOL UA Urobilinogen <=1.0 mg/dL 0.1 - 1.0 01/15/2017 [facility] URINE AND STOOL UA Glucose 500 mg/dL Negative mg/dL 01/15/2017 [facility] URINE AND STOOL UA Protein >=300 mg/dL Negative mg/dL 01/15/[address] [facility] [address] URINE AND STOOL UA Ketones Negative mg/dL Negative mg/dL 01/15/2017 [facility] URINE AND STOOL UA pH 6.0 5.0 - 8.0 01/15/2017 [facility] URINE AND STOOL UA Spec Grav 1.015 <=1.030 01/15/2017 [facility] URINE AND STOOL UA Turbidity Slight *ABN* (01/15/17 6:19 PM) Clear 01/15/2017 [facility] URINE AND STOOL UA Color Yellow *NA* (01/15/17 6:19 PM) Yellow 01/15/2017 [facility] URINE AND STOOL UA Blood Small *ABN* (01/15/17 6:19 PM) Negative 01/15/2017 [facility] URINE AND STOOL UA Bili Negative *NA* (01/15/17 6:19 PM) Negative 01/15/2017 [facility] URINE AND STOOL UA Nitrite Negative (01/15/17 6:19 PM) Negative 01/15/2017 [facility] URINE AND STOOL UA WBC 8 0 - 5 01/15/2017 [facility] URINE AND STOOL UA Sq Epi Many /LPF Few /LPF 01/15/2017 [facility] URINE AND STOOL UA Leuk Est Negative (01/15/17 6:19 PM) Negative 01/15/2017 [facility] URINE AND STOOL UA Bacteria Occasional /HPF None Seen /HPF 01/15/2017 [facility] URINE AND STOOL UA RBC 8 0 - 2 01/15/2017 [facility] URINE AND STOOL UA Hyal Cast 3 0 - 2 01/15/2017 [facility] RAPID Grp A Strep Scr Negative (01/15/17 5:49 PM) Negative 01/15/2017 [facility] VIRAL - SEROLOGY Influ B Negative (01/15/17 5:49 PM) Negative 01/15/2017 [facility] VIRAL - SEROLOGY Influ A Negative (01/15/17 5:49 PM) Negative 01/15/2017 [facility] CARDIAC ENZYMES CK MB Index 1.4 0.0 - 2.5 01/15/2017 [facility] CARDIAC ENZYMES CK MB 1.1 0.5 - 3.6 01/15/2017 [facility] CARDIAC ENZYMES Troponin-I <0.02 0.00 - 0.40 01/15/2017 [facility] CARDIAC ENZYMES Total CK 80 12 - 191 01/15/2017 [facility] CHEM PANEL Lactic Acid Lvl 1.0 0.5 - 2.2 01/15/2017 [facility] CHEM PANEL Alk Phos 122 39 - 136 01/15/2017 [facility] CHEM PANEL AST 26 0 - 37 01/15/2017 [facility] CHEM PANEL Bili Total 0.5 0.2 - 1.3 01/15/2017 [facility] CHEM PANEL ALT 11 0 - 65 01/15/2017 [facility] CHEM PANEL Albumin Lvl 2.2 3.5 - 5.0 01/15/2017 [facility] CHEM PANEL Total Protein 6.6 6.4 - 8.4 01/15/2017 [facility] CHEM PANEL B/C Ratio 11 6 - 25 01/15/2017 [facility] CHEM PANEL A/G Ratio 0.5 0.7 - 1.6 01/15/2017 [facility] CHEM PANEL Globulin 4.4 2.7 - 4.2 01/15/2017 [facility] HEMATOLOGY PTT 25.1 22.9 - 35.8 01/15/2017 [facility] HEMATOLOGY PT 13.2 12.0 - 14.7 01/15/2017 [facility] HEMATOLOGY INR 0.98 0.85 - 1.17 01/15/2017 [facility] CHEM PANEL Procalcitonin Lvl 0.23 0.00 - 0.10 01/15/2017 [facility] CHEM PANEL B/C Ratio 12 6 - 25 02/20/2016 [facility] CHEM PANEL AGAP 10.5 10.0 - 20.0 02/20/2016 [facility] CHEM PANEL A/G Ratio 0.6 0.7 - 1.6 02/20/2016 [facility] CHEM PANEL Globulin 3.7 2.0 - 4.0 02/20/2016 [facility] CHEM PANEL eGFR 49 02/20/2016 Result Comment: [...] should be multiplied by the estimated BMI. [facility] CHEM PANEL Bili Total 0.4 0.2 - 1.3 02/20/2016 [facility] CHEM PANEL Alk Phos 85 39 - 136 02/20/2016 [facility] CHEM PANEL AST 30 0 - 37 02/20/2016 [facility] CHEM PANEL Calcium Lvl 7.5 8.5 - 10.5 02/20/2016 [facility] CHEM PANEL CO2 23 24 - 32 02/20/2016 [facility] CHEM PANEL Chloride Lvl 113 95 - 109 02/20/2016 [facility] CHEM PANEL Potassium Lvl 4.5 3.5 - 5.1 02/20/2016 [facility] CHEM PANEL Sodium Lvl 142 135 - 145 02/20/2016 [facility] CHEM PANEL ALT 14 0 - 65 02/20/2016 [facility] CHEM PANEL Albumin Lvl 2.2 3.5 - 5.0 02/20/2016 [facility] CHEM PANEL Total Protein 5.9 6.4 - 8.4 02/20/2016 [facility] CHEM PANEL Glucose Lvl 183 70 - 99 02/20/2016 [facility] CHEM PANEL Creatinine Lvl 1.17 0.50 - 1.40 02/20/2016 [facility] CHEM PANEL BUN 14 7 - 22 02/20/2016 [facility] HEMATOLOGY Segs 49.5 45.0 - 75.0 02/20/2016 [facility] HEMATOLOGY Segs-Bands # 2.8 1.5 - 8.1 02/20/2016 [facility] HEMATOLOGY Basophils 0.3 0.0 - 1.0 02/20/2016 [facility] HEMATOLOGY Eosinophils 6.6 0.0 - 4.0 02/20/2016 [facility] HEMATOLOGY Monocytes 8.3 2.0 - 12.0 02/20/2016 [facility] HEMATOLOGY Lymphocytes 35.3 20.0 - 40.0 02/20/2016 [facility] HEMATOLOGY Eosinophils # 0.4 0.0 - 0.5 02/20/2016 [facility] HEMATOLOGY Monocytes # 0.5 0.0 - 0.8 02/20/2016 [facility] HEMATOLOGY Lymphocytes # 2.0 1.0 - 5.5 02/20/2016 [facility] HEMATOLOGY MCV 87.6 80.0 - 98.0 02/20/2016 [facility] HEMATOLOGY Hct 27.4 36.0 - 48.0 02/20/2016 [facility] HEMATOLOGY Hgb 9.3 12.0 - 16.0 02/20/2016 [facility] HEMATOLOGY WBC 5.6 3.7 - 10.4 02/20/2016 [facility] HEMATOLOGY MPV 8.5 7.4 - 10.4 02/20/2016 [facility] HEMATOLOGY Platelet 128 133 - 450 02/20/2016 [facility] HEMATOLOGY RBC 3.13 4.20 - 5.40 02/20/2016 [facility] HEMATOLOGY MCH 29.8 27.0 - 31.0 02/20/2016 [facility] HEMATOLOGY RDW 13.1 11.5 - 14.5 02/20/2016 [facility] HEMATOLOGY MCHC 34.0 32.0 - 36.0 02/20/2016 [facility] CHEM PANEL A/G Ratio 0.7 0.7 - 1.6 02/19/2016 [facility] CHEM PANEL Globulin 3.5 2.0 - 4.0 02/19/2016 [facility] CHEM PANEL AGAP 10.2 10.0 - 20.0 02/19/2016 [facility] CHEM PANEL B/C Ratio 13 6 - 25 02/19/2016 [facility] CHEM PANEL eGFR 60 02/19/2016 Result Comment: [...] should be multiplied by the estimated BMI. [facility] CHEM PANEL AST 23 0 - 37 02/19/2016 [facility] CHEM PANEL Albumin Lvl 2.3 3.5 - 5.0 02/19/2016 [facility] CHEM PANEL ALT 17 0 - 65 02/19/2016 [facility] CHEM PANEL Calcium Lvl 7.6 8.5 - 10.5 02/19/2016 [facility] CHEM PANEL Total Protein 5.8 6.4 - 8.4 02/19/2016 [facility] CHEM PANEL Chloride Lvl 109 95 - 109 02/19/2016 [facility] CHEM PANEL CO2 25 24 - 32 02/19/2016 [facility] CHEM PANEL Sodium Lvl 140 135 - 145 02/19/2016 [facility] CHEM PANEL Potassium Lvl 4.2 3.5 - 5.1 02/19/2016 [facility] CHEM PANEL Creatinine Lvl 0.99 0.50 - 1.40 02/19/2016 [facility] CHEM PANEL Alk Phos 71 39 - 136 02/19/2016 [facility] CHEM PANEL Bili Total 0.5 0.2 - 1.3 02/19/2016 [facility] CHEM PANEL Glucose Lvl 171 70 - 99 02/19/2016 [facility] CHEM PANEL BUN 13 7 - 22 02/19/2016 [facility] HEMATOLOGY Lymphocytes # 2.1 1.0 - 5.5 02/19/2016 [facility] HEMATOLOGY Segs-Bands # 2.8 1.5 - 8.1 02/19/2016 [facility] HEMATOLOGY Monocytes # 0.5 0.0 - 0.8 02/19/2016 [facility] HEMATOLOGY Basophils 0.4 0.0 - 1.0 02/19/2016 [facility] HEMATOLOGY Lymphocytes 36.6 20.0 - 40.0 02/19/2016 [facility] HEMATOLOGY Segs 47.9 45.0 - 75.0 02/19/2016 [facility] HEMATOLOGY Monocytes 7.9 2.0 - 12.0 02/19/2016 [facility] HEMATOLOGY Eosinophils 7.2 0.0 - 4.0 02/19/2016 [facility] HEMATOLOGY Eosinophils # 0.4 0.0 - 0.5 02/19/2016 [facility] HEMATOLOGY MCH 29.5 27.0 - 31.0 02/19/2016 [facility] HEMATOLOGY RDW 13.1 11.5 - 14.5 02/19/2016 [facility] HEMATOLOGY MCHC 33.8 32.0 - 36.0 02/19/2016 [facility] HEMATOLOGY Platelet 115 133 - 450 02/19/2016 [facility] HEMATOLOGY MCV 87.2 80.0 - 98.0 02/19/2016 [facility] HEMATOLOGY Hct 28.5 36.0 - 48.0 02/19/2016 [facility] HEMATOLOGY Hgb 9.6 12.0 - 16.0 02/19/2016 [facility] HEMATOLOGY RBC 3.26 4.20 - 5.40 02/19/2016 [facility] HEMATOLOGY MPV 8.0 7.4 - 10.4 02/19/2016 [facility] HEMATOLOGY WBC 5.8 3.7 - 10.4 02/19/2016 [facility] CHEM PANEL Lipase Lvl 253 73 - 393 02/18/2016 [facility] CHEM PANEL eGFR 55 02/18/2016 Result Comment: [...] should be multiplied by the estimated BMI. [facility] CHEM PANEL AGAP 11.4 10.0 - 20.0 02/18/2016 [facility] CHEM PANEL Calcium Lvl 7.8 8.5 - 10.5 02/18/2016 [facility] CHEM PANEL Creatinine Lvl 1.07 0.50 - 1.40 02/18/2016 [facility] CHEM PANEL Potassium Lvl 4.4 3.5 - 5.1 02/18/2016 [facility] CHEM PANEL Sodium Lvl 140 135 - 145 02/18/2016 [facility] CHEM PANEL CO2 27 24 - 32 02/18/2016 [facility] CHEM PANEL Chloride Lvl 106 95 - 109 02/18/2016 [facility] CHEM PANEL BUN 17 7 - 22 02/18/2016 [facility] CHEM PANEL Glucose Lvl 155 70 - 99 02/18/2016 [facility] CARDIAC ENZYMES Troponin-T <0.010 0.000 - 0.100 02/18/2016 [facility] CARDIAC ENZYMES Troponin-I <0.02 0.00 - 0.40 02/18/2016 [facility] CARDIAC ENZYMES Total CK 42 12 - 191 02/18/2016 [facility] CHEM PANEL ALT 18 0 - 65 02/18/2016 [facility] CHEM PANEL Alk Phos 95 39 - 136 02/18/2016 [facility] CHEM PANEL AST 23 0 - 37 02/18/2016 [facility] CHEM PANEL Globulin 4.3 2.0 - 4.0 02/18/2016 [facility] CHEM PANEL Albumin Lvl 2.9 3.5 - 5.0 02/18/2016 [facility] CHEM PANEL Bili Total 0.4 0.2 - 1.3 02/18/2016 [facility] CHEM PANEL A/G Ratio 0.7 0.7 - 1.6 02/18/2016 [facility] CHEM PANEL Total Protein 7.2 6.4 - 8.4 02/18/2016 [facility] CHEM PANEL B/C Ratio 18 6 - 25 02/18/2016 [facility] HEMATOLOGY Eosinophils # 0.3 0.0 - 0.5 02/18/2016 [facility] HEMATOLOGY Monocytes # 0.5 0.0 - 0.8 02/18/2016 [facility] HEMATOLOGY Eosinophils 4.0 0.0 - 4.0 02/18/2016 [facility] HEMATOLOGY Segs 64.9 45.0 - 75.0 02/18/2016 [facility] HEMATOLOGY Lymphocytes 25.2 20.0 - 40.0 02/18/2016 [facility] HEMATOLOGY Basophils 0.2 0.0 - 1.0 02/18/2016 [facility] HEMATOLOGY Monocytes 5.7 2.0 - 12.0 02/18/2016 [facility] HEMATOLOGY Lymphocytes # 2.2 1.0 - 5.5 02/18/2016 [facility] HEMATOLOGY Segs-Bands # 5.6 1.5 - 8.1 02/18/2016 [facility] HEMATOLOGY WBC 8.7 3.7 - 10.4 02/18/2016 [facility] HEMATOLOGY MCV 86.3 80.0 - 98.0 02/18/2016 [facility] HEMATOLOGY RBC 3.71 4.20 - 5.40 02/18/2016 [facility] HEMATOLOGY Hgb 11.2 12.0 - 16.0 02/18/2016 [facility] HEMATOLOGY MCH 30.2 27.0 - 31.0 02/18/2016 [facility] HEMATOLOGY Hct 32.0 36.0 - 48.0 02/18/2016 [facility] HEMATOLOGY RDW 13.1 11.5 - 14.5 02/18/2016 [facility] HEMATOLOGY Platelet 144 133 - 450 02/18/2016 [facility] HEMATOLOGY MCHC 35.0 32.0 - 36.0 02/18/2016 [facility] HEMATOLOGY MPV 8.2 7.4 - 10.4 02/18/2016 [facility] SPECIAL CHEMISTRY Hgb A1C 13.2 <=5.6 % 02/18/2016 [facility] CARDIAC ENZYMES Troponin-T <0.010 0.000 - 0.100 02/18/2016 [facility] CARDIAC ENZYMES Troponin-I <0.02 0.00 - 0.40 02/18/2016 [facility] CARDIAC ENZYMES Total CK 69 12 - 191 02/18/2016 [facility] LIPIDS VLDL 55 02/18/2016 [facility] LIPIDS Trig 274 <=149 mg/dL 02/18/2016 [facility] LIPIDS Chol 180 <=199 mg/dL 02/18/2016 [facility] LIPIDS HDL 38 >=61 mg/dL 02/18/2016 [facility] LIPIDS CHD Risk 4.74 3.90 - 5.80 02/18/2016 [facility] LIPIDS LDL (Calculated) 87 <=99 mg/dL 02/18/2016 [facility] URINE AND STOOL Micro? Performed (02/17/16 4:37 PM) 02/17/2016 [facility] URINE AND STOOL UA Leuk Est Negative (02/17/16 4:37 PM) Negative 02/17/2016 [facility] URINE AND STOOL UA Nitrite Negative (02/17/16 4:37 PM) Negative 02/17/2016 [facility] URINE AND STOOL UA Blood Trace *ABN* (02/17/16 4:37 PM) Negative 02/17/2016 [facility] URINE AND STOOL UA Bili Negative *NA* (02/17/16 4:37 PM) Negative 02/17/2016 [facility] URINE AND STOOL UA Urobilinogen 0.2 0.1 - 1.0 02/17/2016 [facility] URINE AND STOOL UA Protein Trace *ABN* (02/17/16 4:37 PM) Negative 02/17/2016 [facility] URINE AND STOOL UA Glucose >=1000 mg/dL Negative mg/dL 02/17/2016 [facility] URINE AND STOOL UA Ketones Negative *NA* (02/17/16 4:37 PM) Negative 02/17/2016 [facility] URINE AND STOOL UA Color Yellow *NA* (02/17/16 4:37 PM) Yellow 02/17/2016 [facility] URINE AND STOOL UA pH 6.0 5.0 - 8.0 02/17/2016 [facility] URINE AND STOOL UA Turbidity Slight Cloudy (02/17/16 4:37 PM) Clear 02/17/2016 [facility] URINE AND STOOL UA Spec Grav 1.019 <=1.030 02/17/2016 [facility] URINE AND STOOL UA Bacteria Many /HPF None Seen /HPF 02/17/2016 [facility] URINE AND STOOL UA RBC None Seen (02/17/16 4:37 PM) 0 - 2 02/17/2016 [facility] URINE AND STOOL UA Sq Epi Occasional /LPF Few /LPF 02/17/2016 [facility] URINE AND STOOL UA WBC None Seen (02/17/16 4:37 PM) None Seen 02/17/2016 [facility] IMMUNOLOGY [place]-Hep C Ab Posit zaria *NA* (02/17/16 2:19 PM) Negative 02/17/2016 [facility] [place] IMMUNOLOGY CDC HIV 4th GEN Negat zaria (02/17/16 2:19 PM) Negative 02/17/2016 [facility] [place] IMMUNOLOGY [place]-Hep C Ab Posit zaria *NA* (02/17/16 2:19 PM) Negative 02/17/2016 [facility] [place] CARDIAC ENZYMES CK-MB INDEX see note 0.0 - 2.5 02/17/2016 Result Comment: result not reported due to low MMB value. TG [facility] CARDIAC ENZYMES Troponin-I <0.02 0.00 - 0.40 02/17/2016 [facility] CARDIAC ENZYMES CK MB <0.5 ng/mL 0.5 - 3.6 02/17/2016 [facility] CARDIAC ENZYMES Total CK 43 12 - 191 02/17/2016 [facility] CHEM PANEL Bili Direct 0.1 0.0 - 0.3 02/17/2016 [facility] CHEM PANEL Bili Indirect 0.3 0.0 - 1.0 02/17/2016 [facility] CHEM PANEL Magnesium Lvl 2.2 1.8 - 2.4 02/17/2016 [facility] CHEM PANEL Phosphorus 3.9 2.5 - 4.5 02/17/2016 [facility] CHEM PANEL Lipase Lvl 1046 73 - 393 02/17/2016 [facility] URINE AND STOOL UA RBC 0-2 /HPF 0 - 2 02/17/2016 [facility] URINE AND STOOL UA Bacteria Many /HPF None Seen /HPF 02/17/2016 [facility] URINE AND STOOL UA WBC 11-20 /HPF None Seen /HPF 02/17/2016 [facility] URINE AND STOOL Micro? Performed (02/17/16 1:18 PM) 02/17/2016 [facility] URINE AND STOOL UA Sq Epi Moderate /LPF Few /LPF 02/17/2016 [facility] URINE AND STOOL UA Blood Trace *ABN* (02/17/16 1:18 PM) Negative 02/17/2016 [facility] URINE AND STOOL UA Nitrite Negative (02/17/16 1:18 PM) Negative 02/17/2016 [facility] URINE AND STOOL UA Leuk Est Negative (02/17/16 1:18 PM) Negative 02/17/2016 [facility] URINE AND STOOL UA Glucose >=1000 mg/dL Negative mg/dL 02/17/2016 [facility] URINE AND STOOL UA Bili Negative *NA* (02/17/16 1:18 PM) Negative 02/17/2016 [facility] URINE AND STOOL UA Ketones Negative *NA* (02/17/16 1:18 PM) Negative 02/17/2016 [facility] URINE AND STOOL UA Urobilinogen 0.2 0.1 - 1.0 02/17/2016 [facility] URINE AND STOOL UA Protein 30 mg/dL Negative mg/dL 02/17/2016 [facility] URINE AND STOOL UA Color Yellow *NA* (02/17/16 1:18 PM) Yellow 02/17/2016 [facility] URINE AND STOOL UA Spec Grav 1.023 <=1.030 02/17/2016 [facility] URINE AND STOOL UA Turbidity Slight Cloudy (02/17/16 1:18 PM) Clear 02/17/2016 [facility] URINE AND STOOL UA pH 6.0 5.0 - 8.0 02/17/2016 [facility] URINE AND STOOL UA Urobilinogen <=1.0 mg/dL 0.1 - 1.0 07/19/2014 [facility] URINE AND STOOL UA Color Ltyellow 07/19/2014 [facility] URINE AND STOOL UA Hyal Cast 1 0 - 2 07/19/2014 [facility] URINE AND STOOL UA Bacteria Occasional /HPF None Seen /HPF 07/19/2014 [facility] URINE AND STOOL UA Blood Small *ABN* (07/18/14 8:55 PM) Negative 07/19/2014 [facility] URINE AND STOOL UA Bili Negative *NA* (07/18/14 8:55 PM) Negative 07/19/2014 [facility] URINE AND STOOL UA Ketones Negative mg/dL Negative mg/dL 07/19/2014 [facility] URINE AND STOOL UA Glucose 500 mg/dL Negative mg/dL 07/19/2014 [facility] URINE AND STOOL UA pH 5.0 5.0 - 8.0 07/19/2014 [facility] URINE AND STOOL UA Protein 30 mg/dL Negative mg/dL 07/19/2014 [facility] URINE AND STOOL UA Spec Grav 1.016 <=1.030 07/19/2014 [facility] URINE AND STOOL UA Turbidity Slight *ABN* (07/18/14 8:55 PM) Clear 07/19/2014 [facility] URINE AND STOOL UA RBC 1 0 - 2 07/19/2014 [facility] URINE AND STOOL UA WBC 3 0 - 5 07/19/2014 [facility] URINE AND STOOL UA Sq Epi Moderate /LPF Few /LPF 07/19/2014 [facility] URINE AND STOOL UA Leuk Est Negative (07/18/14 8:55 PM) Negative 07/19/2014 [facility] URINE AND STOOL UA Nitrite Negative (07/18/14 8:55 PM) Negative 07/19/2014 [facility] CARDIAC ENZYMES Troponin-I <0.02 0.00 - 0.40 07/19/2014 [facility] CHEM PANEL Magnesium Lvl 2.2 1.8 - 2.4 07/19/2014 [facility] CHEM PANEL eGFR 40 07/19/2014 <sup>1</sup>Result [...] should be multiplied by the estimated BMI. [facility] CHEM PANEL Alk Phos 174 39 - 136 07/19/2014 [facility] CHEM PANEL AST 32 0 - 37 07/19/2014 [facility] CHEM PANEL Albumin Lvl 3.5 3.5 - 5.0 07/19/2014 [facility] CHEM PANEL ALT 29 0 - 65 07/19/2014 [facility] CHEM PANEL Total Protein 8.9 6.4 - 8.4 07/19/2014 [facility] CHEM PANEL Bili Total 0.3 0.2 - 1.3 07/19/2014 [facility] CHEM PANEL Glucose Lvl 360 70 - 99 07/19/2014 <sup>2</sup>Interpretive Data: Adult ref erence range values reflect the clinical guidelines
of the [place] [employer]. [facility] CHEM PANEL BUN 19 7 - 22 07/19/2014 [facility] CHEM PANEL Potassium Lvl 4.5 3.5 - 5.1 07/19/2014 [facility] CHEM PANEL Sodium Lvl 134 135 - 145 07/19/2014 [facility] CHEM PANEL Creatinine Lvl 1.4 0.5 - 1.4 07/19/2014 [facility] CHEM PANEL Chloride Lvl 100 95 - 109 07/19/2014 [facility] CHEM PANEL CO2 33 24 - 32 07/19/2014 [facility] CHEM PANEL Calcium Lvl 9.0 8.5 - 10.5 07/19/2014 [facility] CHEM PANEL A/G Ratio 0.6 0.7 - 1.6 07/19/2014 [facility] CHEM PANEL Globulin 5.4 2.0 - 4.0 07/19/2014 [facility] CHEM PANEL AGAP 5.5 10.0 - 20.0 07/19/2014 [facility] CHEM PANEL B/C Ratio 14 6 - 25 07/19/2014 [facility] HEMATOLOGY MPV 9.0 7.4 - 10.4 07/19/2014 [facility] HEMATOLOGY Hgb 11.8 12.0 - 16.0 07/19/2014 [facility] HEMATOLOGY WBC 5.4 3.7 - 10.4 07/19/2014 [facility] HEMATOLOGY RBC 3.81 4.20 - 5.40 07/19/2014 [facility] HEMATOLOGY MCV 90.8 80.0 - 98.0 07/19/2014 [facility] HEMATOLOGY MCH 31.0 27.0 - 31.0 07/19/2014 [facility] HEMATOLOGY Hct 34.6 36.0 - 48.0 07/19/2014 [facility] HEMATOLOGY RDW 13.8 11.5 - 14.5 07/19/2014 [facility] HEMATOLOGY MCHC 34.2 32.0 - 36.0 07/19/2014 [facility] HEMATOLOGY Platelet 156 133 - 450 07/19/2014 [facility] HEMATOLOGY Monocytes # 0.4 0.0 - 0.8 07/19/2014 [facility] HEMATOLOGY Eosinophils # 0.3 0.0 - 0.5 07/19/2014 [facility] HEMATOLOGY Lymphocytes 26.6 20.0 - 40.0 07/19/2014 [facility] HEMATOLOGY Segs 60.7 45.0 - 75.0 07/19/2014 [facility] HEMATOLOGY Monocytes 7.2 2.0 - 12.0 07/19/2014 [facility] HEMATOLOGY Eosinophils 5.1 0.0 - 4.0 07/19/2014 [facility] HEMATOLOGY Basophils 0.4 0.0 - 1.0 07/19/[address] [facility] Segs-Bands # 3.3 1.5 - 8.1 07/19/[address] [facility] Lymphocytes # 1.4 1.0 - 5.5 07/19/2014 [facility] Pathology Reports No Data Provided for [...] L4-L5. Frederick Somers MD On 06/03/2020 08:20:27; [id number] 06/02/2020 [facility] Brain wo contrast CT Radiation Dose [...] stable. Frederick Somers MD On 06/02/2020 08:21:26; [id number] 06/02/2020 [facility] Brain wo contrast MRI PROCEDUR E [...] sinusitis. Aristides Magdaleno MD On 06/01/2020 02:25:42; [id number] 06/01/2020 [facility] Chest 1view DX PROCEDURE INFOR MATION: [...] Funes MD On 05/31/2020 08:31:51; [id number] 05/31/2020 [facility] Brain wo contrast CT Radiation Dose [...] sinus. Frederick Somers MD On 05/31/2020 08:24:08; [id number] 05/31/2020 [facility] Brain wo contrast MRI PROCEDUR E [...] contrast. Luis Wilde MD On 05/25/2020 07:47:15; [id number] 05/24/2020 [facility] Abdomen AP DX Some right upper quadrant surgical clips noted. Likely from cholecystectomy. Emily Martin MD On 05/24/2020 20:02:52; [id number] PROCEDURE INFORMATION: Exam: XR Abdomen, 1 View [...] concern. Emily Martin MD On 05/24/2020 20:02:04; [id number] 05/24/2020 [facility] Chest wo contrast CT Radiation Dose [...] West MD On 05/23/2020 19:07:13; [id number] 05/23/2020 [facility] Brain wo contrast CT Radiation Dose [...] visualized. Ivan Villafana MD On 05/23/2020 19:05:08; [id number] 05/23/2020 [facility] Chest 1view DX PROCEDURE INFOR MATION: [...] atrium. Alberto Barrios MD On 05/23/2020 12:29:57; [id number] 05/23/2020 [facility] Cardiac SPECT [facility] studies NM Myocardial Perfusion SPECT Imaging with [...] Coronary stents and median sternotomy. 01/06/2020 [facility] CTA Radiation Dose CTDIV OL = [...] stenosis or other significant abnormality of the [place] of [place], the intracranial segments of the [...] arteries. Primitivo Giles MD On 12/30/2019 15:09:50; [id number] 12/30/2019 [facility] Chest 1view DX PROCEDURE INFOR MATION: [...] findings. Phuc Fung MD On 12/30/2019 11:45:16; [id number] 12/30/2019 [facility] Abdomen/Pelvis wo IV contrast CT Radiation [...] SL:131 Roberto Rosales MD On 12/11/2019 17:56:30; [id number] 12/11/2019 [facility] 1view DX PROCEDURE INFOR MATION: Exam: XR [...] consolidation. Dionisio Lam MD On 12/11/2019 16:17:30; [id number] 12/11/2019 [facility] wo contrast CT Radiation Dose CTDIVOL [...] recommended. Jen Mercado MD On 12/05/2019 14:15:24; [id number] 12/05/2019 [facility] Chest 1view DX PROCEDURE INFOR MATION: [...] chest. Steve Schaeffer MD On 12/05/2019 12:57:47; [id number] 12/05/2019 [facility] Abdomen wo contrast MRI PROCED URE [...] cardiomegaly. Kevin Adhikari MD On 11/24/2019 03:05:33; [id number] 11/24/2019 [facility] Abdomen/Pelvis wo IV contrast CT Radiation [...] subacute. Jair Webb MD On 11/23/2019 13:59:14; [id number] 11/22/2019 [facility] Brain wo contrast CT Radiation Dose CTDIVOL = 0 (mGy): DLP = 982.82 (mGy-cm) PROCEDURE INFORMATION: Exam: CT Head Without Contrast Exam date and time: 11/21/2019 10:34 AM Age: 69 years old Clinical indication: Altered mental status/memory loss; Patient HX: AMS since this a. M. , Dx with UTI yesterday at [facility]; Additional info: /ams TECHNIQUE: Imaging protocol: Computed [...] sinusitis. Duncan Galindo MD On 11/21/2019 11:16:35; [id number] 11/21/2019 [facility] Chest 1view DX PROCEDURE INFOR MATION: [...] atelectasis. Dom Callahan MD On 11/21/2019 10:43:49; [id number] 11/21/2019 [facility] Pelvis wo IV contrast CT Radia [...] instrumentation. Sal Correa MD On 10/27/2019 02:30:55; [id number] 10/26/2019 [facility] Spine lumbar wo contrast CT (ER) [...] above. Toby Posey DO On 10/26/2019 23:05:29; [id number] 10/26/2019 [facility] Chest 1view DX PROCEDURE INFOR MATION: [...] Mary Lou Thrasher MD On 10/26/2019 21:58:47; [id number] 10/26/2019 [facility] Pelvis AP DX PROCEDURE INFORMA TION: [...] Peres MD On 10/26/2019 21:54:18; [id number] 10/26/2019 [facility] Hand 2 views DX PROCEDURE INFO [...] Peres MD On 10/26/2019 21:57:24; [id number] 10/26/2019 [facility] Forearm 2 views DX PROCEDURE I [...] recommended. Emily Martin MD On 10/26/2019 22:03:01; [id number] 10/26/2019 [facility] Brain wo contrast CT Radiation Dose [...] fracture. Kevin Adhikari MD On 10/26/2019 22:58:48; [id number] 10/26/2019 [facility] Spine cervical wo contrast CT (ER) [...] bulges. Toby Posey DO On 10/26/2019 23:00:20; [id number] 10/26/2019 [facility] Brain wo contrast CT Radiation Dose [...] assessment. Jose Andrade MD On 09/03/2019 14:02:29; [id number] 09/03/2019 [facility] Chest 1view DX PROCEDURE INFOR MATION: [...] consolidation. Dionisio Lam MD On 09/03/2019 10:26:36; [id number] 09/03/2019 [facility] Pelvis wo IV contrast CT Patie nt Name: MARY SCHREIBER : 1950; Age: 69 years y/o Female MR: [id number] Study: Pelvis wo IV contrast CT 07/13/2019 [...] No acute osseous injury. SL: WHWANG-PC 07/13/2019 [facility] Hip 2/3 views uni w pelvis [...] hip as clinically warranted. SL: JCHILD-PC 07/13/2019 [facility] Hand 3 views DX Clinical Indic [...] inj ury of the left hand. SL: [id number] 07/13/2019 [facility] Shoulder series DX Shoulder se june [...] portion of the lungs are clear. SL: [id number] 07/13/2019 [facility] Ribs unilateral 3 views w PA [...] lar curvilinear density possibly of atelectasis SL: [id number] 07/13/2019 [facility] Spine cervical wo contrast CT (ER) [...] to patient size -Use of iterative reconstruction technSoundSenasation ue CT Radiation Dose DLP 342.08 mGy-cm [...] can be performed for further evaluation. SL: [id number] 07/13/2019 [facility] Brain wo contrast CT EXAM: CT [...] to patient size -Use of iterative reconstruction technSoundSenasation ue CT Radiation Dose DLP 982.82 mGy-cm [...] may be performed for complete assessment. SL: [id number] 07/13/2019 [facility] Abdomen complete US Patient Na me: MARY SCHREIBER : 1950; Age: 69 years y/o Female MR: [id number] Study: Abdomen complete US 06/26/2019 10:01 AM [...] or diffuse fatty infiltration. SL: JNGUYEN-PC 06/26/2019 [facility] Chest 1view DX Clinical Indica tion:69 [...] Subsegmental atelectasis in the lung bases. 04/03/2019 [facility] Brain wo contrast CT EXAM: CT [...] to patient size -Use of iterative reconstruction technSoundSenasation ue CT Radiation Dose DLP 859.97 mGy-cm [...] may be performed for complete assessment. : [id number] 04/03/2019 [facility] Abscess localization scan NM T ECHNETIUM [...] or chest. Otherwise negative [employer] leukocyte scan. [id number] 03/03/2019 [facility] Humerus 2 views DX Left Humeru [...] is identified. IMPRESSION: No acute abnormality. SL: [id number] 02/28/2019 [facility] Hemodialysis Graft/Fistula US Hemodialysis graft ultrasound [...] within proximal g raft. SL: [id number] 02/28/2019 [facility] Brain wo contrast CT Clinical Indication: [...] base regions appear unremarkable. VENTRICLES: There is astu-xu-xhoyowbv prominence of the lateral ventricles. The 3rd [...] without mass, hemorrhage or subacute stroke. SL: [id number] 02/28/2019 [facility] Chest 1view DX EXAM: Chest 1vi [...] the right upper quadrant. SL: JNGUYEN-PC 02/28/2019 [facility] 1view DX Clinical Indica tion: - cp [...] in the thoracic spine. SL: NAIN 02/12/2019 [facility] Shoulder series DX EXAM: XR SH [...] iden tified in the right shoulder. SL: [id number] 11/01/2018 [facility] Chest 1view DX EXAM: XR CHEST [...] lung c oncerning for developing infiltrate. SL: [id number] 11/01/2018 [facility] Brain wo contrast CT Clinical Indication: [...] to patient size -Use of iterative reconstruction DoorDash CT Radiation Dose DLP 902.22 mGy-cm FINDINGS: [...] left frontal scalp hematoma. SL: [id number]-M 10/01/2018 [facility] Spine cervical wo contrast CT Clinical [...] to patient size -Use of iterative reconstruction technSoundSenasation ue CT Radiation Dose DLP 470.79 mGy-cm [...] foraminal stenosis at C6-C7. SL: NAIN 10/01/2018 [facility] Carotid artery Doppler bilat US Patient Name: MARY SCHREIBER : 1950; Age: 68 years Female MR: [id number] Study: Carotid artery Doppler bilat US 07/29/2018 [...] occlusion High, low, or Variable undetectable SL: [id number] 07/29/2018 [facility] Chest/Abdomen/Pelvis wo IV contrast CT Clinical [...] to patient size -Use of iterative reconstruction Odeeo ue CT Radiation Dose DLP 772 mGy-cm [...] nodule, likely an adenoma. SL: JONATHAN 07/28/2018 [facility] Chest 1view DX EXAM: Chest 1vi [...] the right upper quadrant. SL: JNGUYEN-PC 07/28/2018 [facility] Spine cervical wo contrast CT Clinical [...] to patient size -Use of iterative reconstruction Odeeo ue CT Radiation Dose DLP 319 mGy-cm [...] of the cervical spine. SL: CSMBRITANY-M 07/28/2018 [facility] Brain wo contrast CT Clinical Indication: [...] to patient size -Use of iterative reconstruction technSoundSenasation ue CT Radiation Dose DLP 859 mGy-cm [...] acute intracranial abnormalities. ----- LEE: JANNETH 07/28/2018 [facility] 1view DX Patient Name: Morales SCHREIEBR : 1950; Age: 68 years y/o Female MR: [id number] Study: Chest 1view DX 05/02/2018 3:00 AM CDT Ordering Physician: Clinical Indication: Abnormal chest sounds - Bilateral pleural effusion; Comparison: 05/01/2018 Chest one view Stable cardiomegaly. Dialysis catheter terminates in the right atrium as before. Improving small bilateral pleural effusions, pulmonary vascular congestion since previous study. No new infiltrates. SL: [id number] 05/02/2018 [facility] 1view DX Chest 1view DX CLINICAL HISTORY: [...] previous study is noted. SL: RUBEN 05/01/2018 [facility] 1view DX Study: Chest 1v iew DX [...] IMPRESSION: No significant change. SL: CATHY- 04/29/2018 [facility] wo contrast CT Patient N damien: MARY [...] better characterize this finding. SL: JESI 04/29/2018 [facility] Abdomen/Pelvis wo IV contrast CT EXAM: [...] likely represents an adenoma. SL: JUNAID 04/28/2018 [facility] Chest 1view DX Portable chest: The [...] no other significant change. LEE APARICIO 04/28/2018 [facility] Abdomen AP DX Study: Abdomen A [...] unremarkable. IMPRESSION: Negative abdomen. 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 SL: [id number] 04/12/2018 [facility] Ext Lower Venous Doppler Unilat US Patient Name: MARY SCHREIBER : 1950; Age: 68 years y/o Female MR: [id number] Study: Ext Lower Venous Doppler Unilat US [...] include: greater and lesser saphenous veins 03/27/2018 [facility] Chest 1view DX Clinical Indica tion:68 [...] enlargement of the cardiac madelyn houette. 03/21/2018 [facility] 1view DX Portable chest: The left jugular dialysis tempcath is in satisfactory position. There is no change in the bilateral pleural effusions and bibasilar atelectasis compared to the previous day. The upper lungs are clear. The cardiac silhouette is mildly enlarged without significant pulmonary venous congestion. There is no other significant change. [id number] 03/19/2018 [facility] 1view DX Study: Chest 1v iew DX Clinical Indication: - s/p cabg Comparison: Chest x-ray from 03/15/2018 FINDINGS: Stable changes of median sternotomy and CABG are seen. Left internal jugular central line is stable. Cardiac silhouette is mildly prominent. Central vascular congestion with small pleural effusions are seen. There is no pneumothorax. The osseous structures are unremarkable. IMPRESSION: Mild congestive heart failure SL: [id number] 03/16/2018 [facility] 1view DX Patient Name: Morales SCHREIBER : 1950; Age: 68 years Female MR: [id number] Study: Chest 1view DX Order Time: 03/15/2018 [...] IMPRESSION: Stable moderate to severe edema. SL: [id number] 03/15/2018 [facility] Chest 1view DX Clinical [...] subsegmental atelectasis. 2. Pulmonary venous congestion. SL: [id number] 03/14/2018 [facility] 1view DX Portable chest: The right jugular sheath and left jugular dialysis tempcath remain in satisfactory position. There is no change in the small bilateral pleural effusions, atelectasis and pulmonary marivel ous congestion compared to the previous day. There are no other new findings. [id number] 03/13/2018 [facility] 1view DX Portable chest: The right jugular sheath and left jugular dialysis tempcath are satisfactory position. His mild pulmonary venous congestion showing no significant change compared to the previous day. There is a small right pleural effusion which is slightly increased. Mild bibasilar subsegmental atelectasis is unchanged. There are no other new findings. [id number] 03/12/2018 [facility] CVC insert non-tunnel age 5+ yrs [...] imaging of the ultrasound guidance was done. [id number] 03/11/2018 [facility] 1view DX Clinical Indica tion: Central Line [...] the right atrium. Otherwise stable exam. SL: [id number] 03/11/2018 [facility] 1view DX XR CHEST 1 VIEW HISTORY: [...] com pared to the prior day. SL: [id number] 03/11/2018 [facility] 1view DX Clinical Indica tion: - s/p [...] atelectasis grossly similar to previous exam SL: [id number] 03/10/2018 [facility] 1view DX Clinical Indica tion: - s/p [...] left basilar atelectasis possible left effusion SL: [id number] 03/09/2018 [facility] 1view DX CHEST FRONTAL V IEW. 03/08/2018 [...] Mild underlying edema pattern suggest ed. SL: [id number] 03/08/2018 [facility] 1view DX Chest 1view DX CLINICAL HISTORY: - s/p CABG COMPARISON: 03/06/2018 FINDINGS: Limited AP portable study. Support Devices: Right IJ Waite-Tammie catheter has been removed and a right [...] change from previous study is noted. SL: [id number] 03/07/2018 [facility] 1view DX Clinical Indica tion: - s/p [...] and infrahilar infiltrate. Otherwise stable exam. SL: [id number] 03/06/2018 [facility] 1view DX Patient Name: Morales SCHREIBER : 1950; Age: 68 years y/o Female MR: [id number] Study: CHEST 1VIEW DX 03/05/2018 8:49 AM [...] artery bypass graft changes with right IJ Waite- Tammie catheter tip in the pulmonary outflow tract. Nasogastric tube in the stomach. ET tube in the mid lower trachea. IMPRESSION: Satisfactory initial post coronary artery bypass graft baseline exam of the chest. SL: [id number] 03/05/2018 [facility] 1view DX Chest, single v iew dated [...] worrisome for acute pneumonia. SL: 131 03/05/2018 [facility] 1view DX Clinical Indica tion: - hypoxia; Comparison: 02/28/2018 FINDINGS: AP chest radiographs shows normal lung volumes without interstitial or airspace opacities, pleural effusions or pneumothorax. The heart size and pulmonary vasculature are normal. The trachea is midline. There are no clinically significant osseous abnormalities noted. IMPRESSION: No chest radiographic evidence of acute cardiopulmonary disease. SL: [id number] 03/04/2018 [facility] Chest 1view DX Clinical Indica tion:68 [...] noted. IMPRESSION: No acute cardiopulmonary abnormality. 02/28/2018 [facility] Liver US Patient Name: MARY RENDON : 1950; Age: 68 years y/o Female MR: [id number] Study: Liver US 02/18/2018 9:47 AM CDT [...] laboratory data to assess obstructive significance. SL: [id number] 02/18/2018 [facility] Brain wo contrast CT EXAM: CT [...] may be performed for complete assessment. SL: [id number] 02/15/2018 [facility] contrast MRI MRI BRAI N WITHOUT [...] acute intracranial abnormalities are visualized. SL:16 02/15/2018 [facility] Chest 1view DX Clinical Indica tion: - dizziness; Comparison: 02/08/2018 FINDINGS: AP chest radiographs shows normal lung volumes without interstitial or airspace opacities, pleural effusions or pneumothorax. The heart size and pulmonary vasculature are normal. The trachea is midline. There are no clinically significant osseous abnormalities noted. IMPRESSION: No chest radiographic evidence of acute cardiopulmonary disease. SL: [id number] 02/14/[address] [facility] contrast CT Clinical Indication: Increasing dizziness [...] without mass, hemorrhage or subacute stroke. SL: [id number] 02/14/2018 [facility] 1view DX EXAM: Chest 1vi ew DX DATE: 02/08/2018 1:01 PM CDT INDICATION: Chest pain. COMPARISON: 01/30/2017. IMPRESSION: Stable cardiac silhouette and mediastinum. Marked atherosclerotic thoracic aorta. No focal consolidation, significant pleural effusion or pneumothorax. Multiple surgical clips are present within the right upper quadrant. SL: [id number] 02/08/2018 [facility] Chest 2 views DX Patient Name: MARY SCHREIBER : 1950; Age: 67 years y/o Female MR: [id number] Study: Chest 2 views DX 01/30/2017 11:40 [...] lower lobe. Correlate clinically for pneumonia. SL: [id number] 01/30/2017 [facility] Chest 1view DX Chest 1view DX [...] change from previous study is noted. SL: [id number] 01/25/2017 [facility] Chest 1view DX CHEST, ONE VIEW HISTORY: Chest pain. COMPARISON: 01/15/2017 FINDINGS: Since the prior examination, mild pulmonary edema has developed with small to moderate bilateral layering pleural effusions, right greater than left. No pneumothorax is seen. Heart size within normal limits. Coronary vascular stents are again noted. No acute osseous abnormality. SL: [id number] 01/24/2017 [facility] Carotid artery Doppler bilat US Patient Name: MARY SCHREIBER : 1950; Age: 67 years Female MR: [id number] Study: Carotid artery Doppler bilat US 01/16/2017 [...] low, or Variable undetectable SL: DONNIE 01/16/2017 [facility] Abdomen complete US EXAM: Ultr asound [...] Cholecystectomy. 3. Mild scarring right kidney. SL: [id number] 01/16/2017 [facility] Spine cervical wo contrast CT Patient Name: MARY SCHREIBER : 1950; Age: 66 years Female MR: [id number] Study: Spine cervical wo contrast CT 01/15/2017 4:06 PM CDT CLINICAL INDICATION: Pt c/o, 'Pain to back of head s/p slip \\T\\ fall in shower approx 30 min ago,' Pt is unusure of LOC, RL=260 in triage, Pt AAO x4 @ this [...] IMPRESSION: No acute cervical spine abnormalities. SL: [id number] 01/15/2017 [facility] Brain wo contrast CT EXAM: CT BRAIN WITHOUT CONTRAST DATE: 01/15/2017 4:07 PM CDT INDICATION: Syncope; Pt c/o, 'Pain to back of head s/p slip \\T\\ fall in shower approx 30 min ago,' Pt is unusure of LOC, JZ=899 in triage, Pt AAO x4 @ this [...] performed for complete assessment. SL: [id number] 01/15/2017 [facility] Pelvis AP DX EXAM: Pelvis HISTORY: Pelvic pain, fall in shower COMPARISON: None TECHNIQUE: Frontal view pelvis FINDINGS: No fracture or other acute traumatic injury is seen. Extensive arteriosclerosis. Multiple phleboliths in the pelvis. Generalized osteopenia. SL: [id number] 01/15/2017 [facility] Chest 1view DX Patient Name: Morales SCHREIBER : 1950; Age: 66 years y/o Female MR: [id number] * CHEST, portable, 1 view HISTORY: Syncope, [...] coronary bhanu ry stents in place. SL: [id number] 01/15/2017 [facility] Abdomen RUQ US EXAM: US ABDOME [...] odularity suggesting cirrhosis. 2. Postcholecystectomy changes. 02/17/2016 [facility] Chest wo contrast CT EXAM: CT CHEST [...] and coronary artery stents. RECOMMENDATIONS: None. 02/17/2016 [facility] Spine cervical wo contrast CT EXAM: CT [...] wit h mild central canal narrowing. 02/17/2016 [facility] Brain wo contrast CT EXAM: CT BRAIN [...] Left maxillary sinus inflammatory viktoriya nges. 02/17/2016 [facility] Chest 1view DX EXAM: XR CHEST 1 VIEW DATE: 02/17/2016 at 1420 hours INDICATION: Chest pain COMPARISON: 07/18/2014 TECHNIQUE: AP chest FINDINGS: No pulmonary or pleural-based abnormality is identified. Pulmonary vascularity is normal. The heart size is normal for technique. Coronary artery stents are noted. No acute bony abnormality is identified. IMPRESSION: No acute cardiopulmonary abnormality, and no significant change since 07/18/2014. 02/17/2016 [facility] Spine lumbar 2 or 3 views DX L umbosacral spine series, Jul 18, 2014 09:35:11 PM CLINICAL HISTORY: See Clinic Indication ; Pain, Lumbar region TECHNIQUE: Routine AP, lateral, views of the lumbosacral spine were obtained. COMPARISON: None FINDINGS: No acute fracture, subluxation, or dislocation is visualized in the lumbosacral spine. IMPRESSION: No acute abnormality of the lumbosacral spine. SL: 07/18/2014 [facility] Ribs unilateral 3 views w PA [...] opacities, possibly pulmonary contusions.. SL: 14 07/18/2014 [facility] Abdomen/Pelvis w/wo IV contrast CT HISTORY: [...] left adrenal nodule, likely adenoma. SL:13 11/22/2013 [facility] Consultation Notes No Data Provided for This Section Discharge Summaries No Data Provided for This Section History and Physicals No Data Provided for This Section Vital Signs Vital Sign Value Date Comments Source Respitory Rate 13 06/07/2020 [facility] Systolic (mm Hg) 94 06/07/2020 [facility] Diastolic (mm Hg) 47 06/07/2020 [facility] Respitory Rate 13 06/07/2020 [facility] Systolic (mm Hg) 102 06/07/2020 [facility] Diastolic (mm Hg) 48 06/07/2020 [facility] Temperature Oral (F) 98.0 F 06/07/2020 [facility] Respitory Rate 17 06/07/2020 [facility] Systolic (mm Hg) 148 06/07/2020 [facility] Diastolic (mm Hg) 60 06/07/2020 [facility] Temperature Oral (F) 98.0 F 06/07/2020 [facility] Temperature Oral (F) 98.1 F 06/07/2020 [facility] Heart Rate 79 06/06/2020 [facility] Heart Rate 79 06/06/2020 [facility] Heart Rate 86 06/06/2020 [facility] Height 157.48 cm 05/31/2020 [facility] BMI Calculated 20.16 05/31/2020 [facility] Weight 50 0 05/31/2020 [facility] Systolic (mm Hg) 120 05/24/2020 [facility] Diastolic (mm Hg) 61 05/24/2020 [facility] Heart Rate 70 05/24/2020 [facility] Respitory Rate 18 05/24/2020 [facility] Systolic (mm Hg) 151 05/24/2020 [facility] Diastolic (mm Hg) 95 05/24/2020 [facility] Respitory Rate 18 05/24/2020 [facility] Systolic (mm Hg) 130 05/24/2020 [facility] Diastolic (mm Hg) 77 05/24/2020 [facility] Respitory Rate 18 05/24/2020 [facility] Heart Rate 78 05/24/2020 [facility] Heart Rate 71 05/23/2020 [facility] Height 152.4 cm 05/23/2020 [facility] [...] 66 12/30/2019 [facility] Heart Rate 90 12/30/2019 [facility] Temperature Oral (F) 98 F 12/30/2019 [facility] Weight 58.182 12/30/2019 [facility] Systolic (mm Hg) 142 12/12/2019 [facility] Diastolic (mm Hg) 75 12/12/2019 [facility] Heart Rate 69 12/12/2019 [facility] Respitory Rate 18 12/12/2019 [facility] Temperature Oral (F) 98.3 F 12/12/2019 [facility] Systolic (mm Hg) 138 12/11/2019 [facility] Diastolic (mm Hg) 62 12/11/2019 [facility] Heart Rate 70 12/11/2019 [facility] Respitory Rate 17 12/11/2019 [facility] Systolic (mm Hg) 114 12/11/2019 [facility] Diastolic (mm Hg) 62 12/11/2019 [facility] Heart Rate 70 12/11/2019 [facility] Respitory Rate 16 12/11/2019 [facility] Temperature Oral (F) 98.1 F 12/11/2019 [...] [facility] Diastolic (mm Hg) 50 09/03/2019 [facility] Respitory Rate 13 09/03/2019 [facility] Systolic (mm Hg) 122 09/03/2019 [facility] Diastolic (mm Hg) 64 09/03/2019 [facility] Temperature Oral (F) 98.1 F 09/03/2019 [facility] Respitory Rate 16 09/03/2019 [facility] Systolic (mm Hg) 117 09/03/2019 [facility] Diastolic (mm Hg) 51 09/03/2019 [facility] Heart Rate 57 09/03/2019 [facility] Temperature Oral (F) 98.3 F 09/03/2019 [facility] Height 160.02 cm 09/03/2019 [facility] BMI Calculated 24.85 09/03/2019 [facility] Weight 63.636 09/03/2019 [facility] Temperature Oral (F) 98.1 F 07/14/2019 [facility] Respitory Rate 18 07/14/2019 [facility] Systolic (mm Hg) 139 07/14/2019 [facility] Diastolic (mm Hg) 52 07/14/2019 [facility] Respitory Rate 18 07/14/2019 [facility] Systolic (mm Hg) 147 07/14/2019 [facility] Diastolic (mm Hg) 55 07/14/2019 [facility] Systolic (mm Hg) 142 07/14/2019 [facility] Diastolic (mm Hg) 47 07/14/2019 [facility] Temperature Oral (F) 98.2 F 07/14/2019 [facility] Respitory Rate 17 07/14/2019 [facility] Temperature Oral (F) 98.1 F 07/13/2019 [facility] Heart Rate 62 07/13/2019 [facility] Height 162.56 cm 07/13/2019 [facility] BMI Calculated 22.19 07/13/2019 [facility] Weight 58.636 07/13/2019 [facility] Temperature Oral (F) 98.6 F 04/04/2019 [facility] Respitory Rate 19 04/04/2019 [facility] Systolic (mm Hg) 132 04/04/2019 [facility] Diastolic (mm Hg) 67 04/04/2019 [facility] Heart Rate 73 04/04/2019 [facility] Systolic (mm Hg) 125 04/04/2019 [facility] Diastolic (mm Hg) 73 04/04/2019 [facility] Respitory Rate 19 04/04/2019 [facility] Heart Rate 78 04/04/2019 [facility] Temperature Oral (F) 99.0 F 04/04/2019 [facility] Systolic (mm Hg) 133 04/04/2019 [facility] Diastolic (mm Hg) 68 04/04/2019 [facility] Respitory Rate 18 04/04/2019 [facility] Temperature Oral (F) 100.9 F 04/04/2019 [facility] Heart Rate 73 04/04/2019 [facility] Height 152.4 cm 04/03/2019 [facility] Weight 63.636 04/03/2019 [facility] BMI Calculated 27.4 04/03/2019 [facility] Systolic (mm Hg) 95 03/10/2019 [facility] Diastolic (mm Hg) 53 03/10/2019 [facility] Heart Rate 68 03/10/2019 [facility] Temperature Oral (F) 98.3 F 03/10/2019 [facility] Heart Rate 67 03/10/2019 [facility] Temperature Oral (F) 98.5 F 03/10/2019 [facility] Systolic (mm Hg) 102 03/10/2019 [facility] Diastolic (mm Hg) 59 03/10/2019 [facility] Heart Rate 72 03/10/2019 [facility] Temperature Oral (F) 99.2 F 03/10/2019 [facility] Systolic (mm Hg) 120 03/10/2019 [facility] Diastolic (mm Hg) 61 03/10/2019 [facility] Respitory Rate 18 03/09/2019 [facility] Respitory Rate 18 03/09/2019 [facility] Respitory Rate 18 03/09/2019 [facility] BMI Calculated 23.95 03/01/2019 [facility] Weight 55.636 03/01/2019 [facility] Height 152.4 cm 03/01/2019 [facility] Weight 56.818 02/28/2019 [facility] Respitory Rate 18 02/12/2019 [facility] Heart Rate 68 02/12/2019 [facility] Temperature Oral (F) 97.7 F 02/12/2019 [facility] Systolic (mm Hg) 140 02/12/2019 [facility] Diastolic (mm Hg) 75 02/12/2019 [facility] Height 152.4 cm 02/12/2019 [facility] BMI Calculated 24.66 02/12/2019 [facility] Weight 57.273 02/12/2019 [facility] Respitory Rate 18 02/12/2019 [facility] Temperature Oral (F) 98.1 F 02/12/2019 [facility] Systolic (mm Hg) 127 02/12/2019 [facility] Diastolic (mm Hg) 61 02/12/2019 [facility] Heart Rate 70 02/12/2019 [facility] Systolic (mm Hg) 135 11/06/2018 [facility] Diastolic (mm Hg) 78 11/06/2018 [facility] Respitory Rate 16 11/06/2018 [facility] Heart Rate 61 11/06/2018 [facility] Temperature Oral (F) 97.9 F 11/06/2018 [facility] Respitory Rate 16 11/06/2018 [facility] Systolic (mm Hg) 156 11/06/2018 [facility] Diastolic (mm Hg) 71 11/06/2018 [facility] Heart Rate 63 11/06/2018 [facility] Respitory Rate 18 11/06/2018 [facility] Temperature Oral (F) 97.9 F 11/06/2018 [facility] Systolic (mm Hg) 154 11/06/2018 [facility] Diastolic (mm Hg) 75 11/06/2018 [facility] Heart Rate 68 11/06/2018 [facility] Temperature Oral (F) 97.6 F 11/06/2018 [facility] BMI Calculated 19.01 11/02/2018 [facility] Weight 51.818 11/02/2018 [facility] Height 165.1 cm 11/02/2018 [facility] BMI Calculated 25.05 11/01/2018 [facility] Height 152.4 cm 11/01/2018 [facility] Weight 58.182 11/01/2018 [facility] Heart Rate 72 10/02/2018 [facility] Respitory Rate 18 10/02/2018 [facility] Systolic (mm Hg) 140 10/02/2018 [facility] Diastolic (mm Hg) 65 10/02/2018 [facility] Systolic (mm Hg) 140 10/02/2018 [facility] Diastolic (mm Hg) 65 10/02/2018 [facility] Respitory Rate 18 10/02/2018 [facility] Heart Rate 73 10/02/2018 [facility] Temperature Oral (F) 98.5 F 10/02/2018 [facility] Weight 54.091 10/01/2018 [facility] Temperature Oral (F) 98.2 F 10/01/2018 [facility] Systolic (mm Hg) 148 10/01/2018 [facility] Diastolic (mm Hg) 69 10/01/2018 [facility] Heart Rate 73 10/01/2018 [facility] Respitory Rate 18 10/01/2018 [facility] Respitory Rate 16 08/06/2018 [facility] Heart Rate 91 08/06/2018 [facility] Temperature Oral (F) 99.8 F 08/06/2018 [facility] Systolic (mm Hg) 108 08/06/2018 [facility] Diastolic (mm Hg) 70 08/06/2018 [facility] Heart Rate 89 08/06/2018 [facility] Temperature Oral (F) 97.5 F 08/06/2018 [facility] Systolic (mm Hg) 121 08/06/2018 [facility] Diastolic (mm Hg) 73 08/06/2018 [facility] Respitory Rate 16 08/06/2018 [facility] Temperature Oral (F) 97.2 F 08/06/2018 [facility] Respitory Rate 16 08/06/2018 [facility] Heart Rate 84 08/06/2018 [facility] Systolic (mm Hg) 140 08/06/2018 [facility] Diastolic (mm Hg) 73 08/06/2018 [facility] Weight 52.002 07/30/2018 [facility] Height 152.4 cm 07/29/2018 [facility] BMI Calculated 25.05 07/29/2018 [facility] Weight 58.182 07/29/2018 [facility] Height 152.4 cm 07/29/2018 [facility] Heart Rate 79 05/05/2018 [facility] Respitory Rate 18 05/05/2018 [facility] Systolic (mm Hg) 145 05/05/2018 [facility] Diastolic (mm Hg) 67 05/05/2018 [facility] Temperature Oral (F) 98.8 F 05/05/2018 [facility] Respitory Rate 18 05/05/2018 [facility] Respitory Rate 18 05/05/2018 [facility] Heart Rate 79 05/05/2018 [facility] Systolic (mm Hg) 139 05/05/2018 [facility] Diastolic (mm Hg) 69 05/05/2018 [facility] Temperature Oral (F) 99.3 F 05/05/2018 [facility] Temperature Oral (F) 99.1 F 05/05/2018 [facility] Heart Rate 81 05/05/2018 [facility] Systolic (mm Hg) 155 05/05/2018 [facility] Diastolic (mm Hg) 68 05/05/2018 [facility] Weight 58.1 04/29/2018 [facility] BMI Calculated 25.02 04/29/2018 [facility] Height 152.4 cm 04/29/2018 [facility] Weight 59.545 04/28/2018 [facility] Height 152.4 cm 04/28/2018 [facility] BMI Calculated 25.64 04/28/2018 [facility] Systolic (mm Hg) 162 04/01/2018 [facility] Diastolic (mm Hg) 72 04/01/2018 [facility] Temperature Oral (F) 98.2 F 04/01/2018 [facility] Heart Rate 74 04/01/2018 [facility] Respitory Rate 16 04/01/2018 [facility] Systolic (mm Hg) 173 04/01/2018 [facility] Temperature Oral (F) 98.2 F 04/01/2018 [facility] Respitory Rate 16 04/01/2018 [facility] Heart Rate 75 04/01/2018 [facility] Diastolic (mm Hg) 73 04/01/2018 [facility] Respitory Rate 18 04/01/2018 [facility] Systolic (mm Hg) 148 04/01/2018 [facility] Diastolic (mm Hg) 66 04/01/2018 [facility] Temperature Oral (F) 98.7 F 04/01/2018 [facility] Heart Rate 81 04/01/2018 [facility] Weight 57.017 03/25/2018 [facility] Weight 56.818 03/23/2018 [facility] Height 152.4 cm 03/21/2018 [facility] BMI Calculated 24.46 03/21/2018 [facility] Weight 56.818 03/21/2018 [facility] Temperature Oral (F) 98.6 F 03/21/2018 [facility] Heart Rate 67 03/21/2018 [facility] Respitory Rate 18 03/21/2018 [facility] Systolic (mm Hg) 141 03/21/2018 [facility] Diastolic (mm Hg) 52 03/21/2018 [facility] Temperature Oral (F) 99 F 03/21/2018 [facility] Systolic (mm Hg) 132 03/21/2018 [facility] Diastolic (mm Hg) 56 03/21/2018 [facility] Respitory Rate 18 03/21/2018 [facility] Heart Rate 68 03/21/2018 [facility] Temperature Oral (F) 98.1 F 03/21/2018 [facility] Respitory Rate 18 03/21/2018 [facility] Heart Rate 70 03/21/2018 [facility] Systolic [...] 70 02/21/2018 [facility] Respitory Rate 18 02/21/2018 [facility] Temperature Oral (F) 98.1 F 02/21/2018 [facility] Heart Rate 63 02/21/2018 [facility] Heart Rate 73 02/21/2018 [facility] Systolic (mm Hg) 159 02/21/2018 [facility] Diastolic (mm Hg) 71 02/21/2018 [facility] Respitory Rate 18 02/21/2018 [facility] Temperature Oral (F) 98.2 F 02/21/2018 [facility] Heart Rate 73 02/21/2018 [facility] Temperature Oral (F) 98.4 F 02/21/2018 [facility] Respitory Rate 18 02/21/2018 [facility] Systolic (mm Hg) 162 02/21/2018 [facility] Diastolic (mm Hg) 74 02/21/2018 [facility] Weight 56.932 02/15/2018 [facility] Height 152.4 cm 02/15/2018 [facility] BMI Calculated 24.51 02/15/2018 [facility] Weight 58.182 02/14/2018 [facility] BMI Calculated 25.05 02/14/2018 [facility] Height 152.4 cm 02/14/2018 [facility] Systolic (mm Hg) 131 02/11/2018 [facility] Diastolic (mm Hg) 66 02/11/2018 [facility] Temperature Oral (F) 98.5 F 02/11/2018 [facility] Respitory Rate 18 02/11/2018 [facility] Heart Rate 81 02/11/2018 [facility] Systolic (mm Hg) 155 02/11/2018 [facility] Diastolic (mm Hg) 71 02/11/2018 [facility] Respitory Rate 18 02/11/2018 [facility] Heart Rate 82 02/11/2018 [facility] Temperature Oral (F) 98.7 F 02/11/2018 [facility] Respitory Rate 18 02/11/2018 [facility] Systolic (mm Hg) 132 02/11/2018 [facility] Diastolic (mm Hg) 70 02/11/2018 [facility] Temperature Oral (F) 98.7 F 02/11/2018 [facility] Heart Rate 77 02/11/2018 [facility] Weight 57.045 02/09/2018 [facility] BMI Calculated 22.02 02/08/2018 [facility] Height 162.56 cm 02/08/2018 [facility] Weight 58.182 02/08/2018 [facility] Height 162.56 cm 02/08/2018 [facility] Weight 68.182 02/08/2018 [facility] BMI Calculated 25.8 02/08/2018 [facility] Systolic (mm Hg) 141 01/31/2017 [facility] Diastolic (mm Hg) 69 01/31/2017 [facility] Respitory Rate 9 01/31/2017 [facility] Temperature Oral (F) 98.4 F 01/31/2017 [facility] Systolic (mm Hg) 126 01/31/2017 [facility] Diastolic (mm Hg) 53 01/31/2017 [facility] Respitory Rate 16 01/31/2017 [facility] Respitory Rate 16 01/31/2017 [facility] Systolic (mm Hg) 105 01/31/2017 [facility] Diastolic (mm Hg) 74 01/31/2017 [facility] Temperature Oral (F) 98.3 F 01/31/2017 [facility] Temperature Oral (F) 98.8 F 01/31/2017 [facility] BMI Calculated 23.67 01/25/2017 [facility] Weight 56.818 01/25/2017 [facility] Height 154.94 cm 01/25/2017 [facility] Heart Rate 96 01/25/2017 [facility] Heart Rate 97 01/25/2017 [facility] Weight 50 0 01/24/2017 [facility] BMI Calculated 20.83 01/24/2017 [facility] Height 154.94 cm 01/24/2017 [facility] Heart Rate 92 01/24/2017 [facility] Heart Rate 88 01/18/2017 [facility] Respitory Rate 17 01/18/2017 [facility] Temperature Oral (F) 98.7 F 01/18/2017 [facility] Systolic (mm Hg) 170 01/18/2017 [facility] Diastolic (mm Hg) 71 01/18/2017 [facility] Heart Rate 82 01/18/2017 [facility] Respitory Rate 17 01/18/2017 [facility] Systolic (mm Hg) 156 01/18/2017 [facility] Diastolic (mm Hg) 70 01/18/2017 [facility] Temperature Oral (F) 98.5 F 01/18/2017 [facility] Temperature Oral (F) 98.3 F 01/18/2017 [facility] Heart Rate 89 01/18/2017 [facility] Respitory Rate 18 01/18/2017 [facility] Systolic (mm Hg) 128 01/18/2017 [facility] Diastolic (mm Hg) 71 01/18/2017 [facility] BMI Calculated 21.77 01/15/2017 [facility] Height 154.94 cm 01/15/2017 [facility] Weight 52.273 01/15/2017 [facility] Systolic (mm Hg) 124 02/20/2016 [facility] Diastolic (mm Hg) 64 02/20/2016 [facility] Respitory Rate 18 02/20/2016 [facility] Heart Rate 75 02/20/2016 [facility] Temperature Oral (F) 98.1 F 02/20/2016 [facility] Respitory Rate 18 02/20/2016 [facility] Systolic (mm Hg) 154 02/20/2016 [facility] Diastolic (mm Hg) 78 02/20/2016 [facility] Heart Rate 78 02/20/2016 [facility] Temperature Oral (F) 98.4 F 02/20/2016 [facility] Temperature Oral (F) 98.6 F 02/20/2016 [facility] Respitory Rate 18 02/20/2016 [facility] Systolic (mm Hg) 103 02/20/2016 [facility] Diastolic (mm Hg) 61 02/20/2016 [facility] Heart Rate 88 02/20/2016 [facility] Height 152.4 cm 02/18/2016 [facility] BMI Calculated 19.96 02/18/2016 [facility] Weight 46.364 02/18/2016 [facility] BMI Calculated 22.51 02/17/2016 [facility] Weight 52.273 02/17/2016 [facility] Height 152.4 cm 02/17/2016 [facility] Systolic (mm Hg) 154 07/19/2014 [facility] Respitory Rate 18 07/19/2014 [facility] Diastolic (mm Hg) 59 07/19/2014 [facility] Heart Rate 88 07/19/2014 [facility] Temperature Oral (F) 98.4 F 07/19/2014 [facility] Respitory Rate 18 07/19/2014 [facility] Systolic (mm Hg) 147 07/19/2014 [facility] Heart Rate 82 07/19/2014 [facility] Diastolic (mm Hg) 63 07/19/2014 [facility] Systolic (mm Hg) 163 07/19/2014 [facility] Heart Rate 79 07/19/2014 [facility] Respitory Rate 18 07/19/2014 [facility] Diastolic (mm Hg) 66 07/19/2014 [facility] Weight 52.273 07/19/2014 [facility] BMI Calculated 22.51 07/19/2014 [facility] Height 152.4 cm 07/19/2014 [facility] Temperature Oral (F) 98.3 F 07/19/2014 [facility] Encounters Location Location Details Encounter Type Encounter Number Reason For Visit Attending Provider ADM Date DC Date Status Source [facility] Outpatient [id number] CARDIAC CIR RHOSIS MARIE GARCIA 11/22/2013 Active [facility] [id number] Myron Novoadtare 07/19/2014 07/19/2014 [facility] Inpatient [id number] Kyra Webbon 02/17/2016 02/20/2016 [facility] Inpatient [id number] Rome Talbert 01/15/2017 01/18/2017 [facility] Inpatient [id number] Guillermo Bullock 01/24/2017 01/31/2017 [facility] Inpatient [id number] Taso Mougouris 02/08/2018 02/11/2018 [facility] Inpatient [id number] Chucho Carreon 02/14/2018 02/21/2018 [id number] [facility]2018 [facility] Inpatient Rehab [id number] Sammy Ewing Jr 03/21/2018 04/01/2018 [facility] OP Therapy Patients [id number] Sammy Ewing Jr 04/04/2018 05/04/2018 [facility] Outpatient [id number] Gabriele Chaney 04/12/2018 04/13/2018 [facility] Inpatient [id number] Angel Pendleton Jr 04/28/2018 05/05/2018 [facility] Inpatient [id number] Angel Pendleton Jr 07/29/2018 08/07/2018 [facility] Diag Services [id number] Darren Castro 08/02/2018 08/02/2018 [facility] Emergency [id number] Cat Andrade 10/01/2018 10/02/2018 [facility] Inpatient [id number] Taso Mougouris 11/01/2018 11/06/2018 [facility] Emergency [id number] Az Flores 02/12/2019 02/12/2019 [facility] Inpatient [id number] Kenzie Braedenohuziel 02/28/2019 03/10/2019 [facility] Observation [id number] Juancho Robe 04/03/2019 04/04/2019 [facility] Outpatient [id number] Galindo Paolarandall 06/26/2019 06/27/2019 [facility] Emergency [id number] Jose M Shepherd 07/13/2019 07/14/2019 [facility] Emergency [id number] Brad Barakat 09/03/2019 09/03/2019 [facility] Emergency [id number] Carlos Parks 10/27/2019 10/27/2019 [facility] Inpatient [id number] Jhonathan Guillermo 11/21/2019 11/27/2019 [facility] Emergency [id number] Luis Eduardo Negro 12/05/2019 12/05/2019 [facility] Emergency [id number] Az Sandra 12/11/2019 12/12/2019 [facility] Emergency [id number] Brianne Castro 12/30/2019 12/30/2019 [facility] [facility] [id number] Darren Castro 01/06/2020 01/07/2020 [facility] Outpatient [id number] Derrick Bullock 03/02/2020 03/03/2020 [facility] Observation [id number] Michelle Ramirezeh 05/23/2020 05/23/2020 [facility] Inpatient [id number] Afshan Montielaga 05/31/2020 06/07/2020 [facility] Procedures Procedure Code Date Perfomer Comments Source Abdominal hysterectomy [id number] [facility], FELIX Sheikh,[facility] CABG x 1 - Coronary artery bypass graft x 1 [id number] [facility], FELIX Sheikh ,[facility] Cholecystectomy<sup>1</sup> [id number] [facility], FELIX Nasha ,[facility] Cholecystotomy [id number] [facility] Clemons[facility] Eye care [id number] [facility] Assessment and Plan Assessment and Plan Date [...] examination, unreliable. Coordination: Has mild asterixis on [id number]. Deep tendon reflexes trace. CT OF HEAD [...] Physical Author: Afshan Marcelo MD Date: 05/31/20 [id number] history ofhyperten abdoul, diabetes, CAD status post [...] C. SCD, clopidogrel Pending Neurology consult 06/07/2020 [facility] Extracted from:Title: Clinical Document Author: Alexi [...] 11/26/19 [place] Coma Score 15 11/26/19 [facility] Fall Score 9 11/26/19 Petros Score 15 (all previously charted lines have been discontinued) Surgical Procedures: 11/25/19 11:52 EGD / MAC [id number] Primary Surgeon: Ranjeet Porter MD (Service: END) [...] have examined the patient with the Physician Charger Operator Helper and confirmed the essential components of history, physical examination, diagnosis and treatment plan. I agree with the patient's care as documented by the Physician Charger Operator Helper. Extracted from:Title: History and Physical Author: Sylwia Larose MD Date: 11/21/19 69-year-old femalewho has significant pa st medical history of ESRD on MWF HD , CAD, diabetes mellitus, hepatitis C, hypertensionwith questionable Alzheimer's diseasewas brought in byher brother. As per the history the [facility] she had lower abdominal discomfortand was diagnosed with urinary tract infection and was sent back home with p.o. Keflex however the patient did not receive any p.o. Keflexand they also given her morphine[place] morning the patient was not respondingand was extremely confused that prompted them to bring her to the emergency room. In the emergency room patient was noted to have positive urinary tract infectionwith a normal WBC count. During my encounter patient was able to give her date of and also address. Predominant history was obtained from brother [id number]-ld-the. Patient did not have fevers at home [...] by Sylwia Larose MD on 11/22/2019 02:05 HELPER METAL HANGING chronic thrombocytopenia sec to hepatitis C 11/27/2019 [facility] Extracted from:Title: Clinical Document Author: Alxei Wisdom MD Date: 04/03/19 Nephrology Consult Alexi [...] Extracted from:Title: General Admission H&P * Author: Juancho Nagel MD Date: 04/03/19 Impression and Plan Impression: Acute metabolic encephalopathy, unclear etiology End-stage renal disease on hemodialysis Anemia of chronic kidney disease Hypertension Diabetes mellitus Coronary artery disease status post CABG Recent staph bacteremia Plan: We will admit to medicine Activity as tolerated Fall precautions We will reconcile home medication available Closely monitor mental status Patient is undergoing hemodialysis today [place] [facility] already consulted by ER. We will get infectious disease evaluation. Patient was given vancomycin IV x1, gentamicin IV x1 along with hemodialysis. Blood cultures were sent from the ER. Prognosis guarded CODE STATUS full. 04/04/2019 [facility] Extracted from:Title: Cardiology Progres s Note [...] (NOV 01) Extracted from:Title: Clinical Document Author: eRbeka Tian MD Date: 11/05/18 [facility] INFECTIOUS DISEASE CONSULTATION NOTE REBEKA TIAN M.D. [...] in Water IV (Dextrose 50% Syringe), acetaminophen-hydrocodone (Sturgis 5/325 oral tablet), albuterol (albuterol 0.083% inhalation [...] lactic acid levels. Ordered: Admit/Condition, 11/01/18 21:44:00 HELPER METAL HANGING, Status: Inpatient, Telemetry Capable Location, Expected LOS: 2 Midnights, Anthony Boyce MD, Admit MD Review/Approve Yes, Isolation: No Isolation/Standard Precautions, Bacterial pneumonia Status post fall No fractures noted onchest x-ray and shoulder x-ray. Chest pain Reproducible, musculoskeletal in nature. Placed on Sturgis. Trend troponins,EKG showing sinus rhythm. Consult cardiology for any changes in troponins. ESRDTTS Consults nephrology for routine hemodialysis Heparin 1-2 midnight 11/06/2018 [facility] Extracted from:Title: Clinical Document Author: Alexi [...] 08/06/18 Pain Intensity NRS (0-10) 0 08/06/18 [place] Coma Score 15 08/06/18 Montalvo Duran Fall [...] Nephrology, cardiology, hematology Discharge Information Disposition to [facility] facility Condition stable Medications: See med reconciliation [...] was consulted. Patient received dialysis by the animal keeper while here in the hospital. In relation to her syncope carotid ultrasound found to be negative and 2D echo was found to be normal. Cardiology was consulted. It was felt that the patient's likely underlying weakness is due to generalized weakness requiring [facility] facility for further rehabilitation. While here the [...] Date: 05/05/18 Progress Note - Dr. [facility] Attending: Angel Ley MD [...] 398 05/04 24hr Tot 516 4300 - 3714 Stroke Myocardial infarct Cholelithiasis Alzheimer disease Medications [...] On IV lasix for now. 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 Myocardial infarct ([id number]): Resolved. Cholelithiasis ([id number]): Resolved. Alzheimer disease (6027489466): Resolved. Family History: Procedure history: CABG x 1 - Coronary artery bypass graft x 1 (789361089). Cholecystotomy (54049736). Abdominal hysterectomy (986886173). Cholecystectomy (85485077). Comments: 02/17/2016 23:53 - Candy Null [facility] (219490693). Social History Social and Psychosocial Habits Alcohol [...] Extracted from:Title: Discharge Summary * Author: Chucho hZou MD Date: 03/21/18 Discharge Information Disposition: Inpatient [...] 03/19/18 13:[address] PLACEMENT [id number] Primary Surgeon: Mario Abdi MD (Service: CVT) 03/05/18 09:27 CORONARY ARTERY BYPASS GRAFT; LEFT LEG EVH;STARK-LAD, SVG-OM, SVG-DIAG, SVG-PDA [id number] Primary Surgeon: Gabriele Chaney MD (Service: CVT) [...] seen and examined by me with the resident/CONTACT AGENT/PA and I agree with the History/Exam documented. [...] US pending Repeat Labs in am 02/21/2018 [facility] Extracted from:Title: Progress Note Author: Derrick [...] Timothy Morataya MD Date: 02/11/18 Discharge Summary [facility] Timothy Morataya MD Discharge Diagnosis: 1. MÓNICA [...] INJection, sterile 10 mL 1 gm, IV, [id number] escitalopram 10 mg TAB 10 mg 1 [...] sterile water 10 mL) 1 gm IV [id number] 120 ml/hr 02/10/18 escitalopram 10 mg PO [...] Morataya MD Date: 02/09/18 Internal Medicine Consult [facility] Timothy Morataya MD Chief Complaint: headache and [...] Histories Past Medical History: Active Diabetes mellitus (730456895) Hepatitis C (65933812) Stroke ([id number]): Myocardial infarct ([id number]): Cholelithiasis ([id number]): Alzheimer disease (7599156239): Family History: Reviewed and noncontributory to present illness Procedure history: CABG x 1 - Coronary artery bypass graft x 1 (287992862). Cholecystotomy (01051424). Abdominal hysterectomy (275280071). Cholecystectomy (00273690). Eye care (557733582). Social History Social and Psychosocial Habits Alcohol [...] 0 01/31/17 Petros Score 20 01/31/17 [facility] Fall Score 15 (all previously charted lines have been discontinued) (no surgical procedures documented) Input/Output Record In Out Bal 01/31 24hr Tot 0 0 0 01/30 24hr Tot 1051 0120 - 1095 Scheduled Meds: None Unscheduled Meds: None PRN [...] Total CK H 194 (JAN 24) 01/31/2017 [facility] Extracted from:Title: Clinical Document Author: Rome Talbert DO Date: 01/18/17 Progress Daily [facility] Completed: Dec, 13:23 by Rome Talbert DO RM: 135 - 1D, SE C1A MARY SCHREIBER 67y (: 1950) F Attending: Rome Talbert DO Service: Internal Medicine Reason for Admission: ACUTE KIDNEY INJURY, DEHYDRATION, FEVER Working DRG: Renal failure w/o CC/LONG TERM Code status: None Specified=FULL CODE Current diet: [...] 0.9% INJ 100 mL) 1 gm IVPB [id number] 200 ml/hr 01/16/17 insulin detemir 20 unit [...] More MD Date: 01/16/17 Cardiology Consult Note [facility] Chief Complaint- syncope HPI-this is a 67-year-old female with remote history of CAD with prior MD and stents about 3 years ago she [...] 0.9% INJ 100 mL) 1 gm IVPB [id number] 200 ml/hr 01/16/17 insulin detemir 20 unit [...] her back on her cardiac medications. 01/18/2017 [facility] Extracted from:Title: Discharge Summary Author: Kyra [...] and MÓNICA appear resolved. Procedures: none Consultations: SD endocrinology Physical examination: Gen: no acute distress. [...] Date: 02/20/16 Endocrine Consult Note: Patient Room: [place] [address], 3C MARY SCHREIBER 66y (: 1950) F Attending: Kyra Lema MD Service: Internal Medicine DATE OF CONSULT: 02/20/2016 REFERRING PHYSICIAN: Dr Lema CONSULTING PHYSICIAN: Dr Sneed REASON FOR CONSULTATION: Type 2 diabetes CHIEF COMPLAINT: syncope HISTORY OF PRESENT ILLNESS: Ms. Schreiber is a 66 yo female with type 2 diabetes, h/o MD and cholecystectomy who presents with syncopal episode. MD was ruled out with cardiac enzymes and [...] Has protein in the urine. History of MD 4 years ago but unknown if any stents placed. Mother and both sisters have diabetes. Father had MD, age 86. No thyroid problems. Today she is tolerating full po diet without nausea or vomiting. She is complaining of sternal chest pain and epigastric pain. PAST MEDICAL HISTORY: type 2 diabetes, h/o MD PAST SURGICAL HISTORY: cholecystectomy SOCIAL HISTORY: lives with a friend, denies smoking and alcohol FAMILY HISTORY: Mother and both sisters have diabetes. Father had MD, age 86. Allergies (1) Active Reaction NKDA [...] 13.2%) complicated by retinopathy, neuropathy and h/o MD and HCV? cirrhosis who presents with syncopal [...] S: 56yo with history of DM, HTN, MD, CVA, and cholelithiasis s/p cholecystecomy presented for [...] CTA head/neck, RUQ US Consults: Diabetic Education, Technology Assistant A/P: 1.) Syncope - resolved - IV [...] make inpatient admission Hospitalist is primary page [phone] with questions Addendum by Kyra Lema MD [...] followup - she has been referred to linoleum tile layer by her PCP already. She has very poor understanding of managing her health, specifically diabetes. DM educator if possible, social work consultation. 02/20/2016 [facility] Plan of Care No Data Provided for This Section Social History Social History Date Source Social History TypeResponse Alcohol Never Substance Abuse Use: None. Smoking Status Never smoker; Ready to change: Yes; Concerns about tobacco use in household: Yes; Exposure to Tobacco Smoke None; Cigarette Smoking Last 365 Days Yes; Reg Smoking Cessation Counseling Yes entered on: 05/31/20 11/21/2019 [facility] Social History TypeResponse Alcohol Never Substance [...] Cessation Counseling No entered on: 04/28/18 04/29/2018 [facility] Social History TypeResponse Substance Abuse Use: None. Alcohol Never Smoking Status Never smoker; Exposure to Tobacco Smoke None; Cigarette Smoking Last 365 Days No; Reg Smoking Cessation Counseling No 02/18/2016 [facility] Family History No Data Provided for This Section Advance Directives No Data Provided for This Section Functional Status No Data Provided for This Section
--- NOTE | 2020-06-17 15:24 | NUR ---
PT IS FROM [facility] ON DIALYSIS
[2020-06-17 17:04] VITALS: BP 162/59
[2020-06-17 17:43] VITALS: BP 130/59
[2020-06-17] MEDS ORDERED: AURYXIA210 MG PO (18:00)
[2020-06-17] MEDS ORDERED: FAMOTIDINE20 MG PO (18:00)
[2020-06-17] MEDS ORDERED: CLOPIDOGREL75 MG PO (18:00)
[2020-06-17] MEDS ORDERED: LIPITOR20 MG PO (18:00)
[2020-06-17] MEDS ORDERED: AMANTADINE100 MG PO (18:00)
[2020-06-17] MEDS ORDERED: AUGMENTIN 500-1 EACH PO (18:00)
[2020-06-17] MEDS ORDERED: RANEXA1000 MG PO (18:00)
[2020-06-17] MEDS ORDERED: BENZTROPINE MESY1 MG PO (18:00)
[2020-06-17] MEDS ORDERED: FUROSEMIDE40 MG PO (18:00)
[2020-06-17] MEDS ORDERED: ADMELOG SO100 UNIT/1 (18:00)
[2020-06-17] MEDS ORDERED: METOPROLOL TART25 MG PO (18:00)
--- NOTE | 2020-06-17 18:00 | NUR ---
Report from Yusef was taken at 1653. Patient arrived to room 112 at 1700. Patient was very lethargic, she is on 2L NC, she has two IV's in her right hand, one on the thumb and one on the hand. Patient has a left upper arm fistula, that was accessed yesterday during her routine M/W/F dialysis. Patient has bruises and scratches and scabs all over body. She also has old scars on her abdomen. Patient came from [facility], this radio news writer called and talked to the nurse, who faxed me her medications, but did not tell this radio news writer much after that. Patient's emergency contact from the [facility] sheet is Paulo Galvez, her brother, who is her primary caregiver, was called. He told me that she has only been at [facility] for a week and has had altered mental status for 2 months. Paulo stated that patient has had multiple falls in the past. Patient attending doctor is Dr. Montes, his answering service was called to get a consult for a extension associate and to continue medications from [facility]. There has not been a return call at this time. [facility] was also called to get dialysis tomorrow, they must await who Dr. Montes assigns as the extension associate. At this time patient is resting in bed with eyes closed, oxygen on, call martinez within reach, and bed alarm on. Awaiting return call from Dr. Montes.
[2020-06-17] MEDS ORDERED: DEXTROSE 50% SYRINGE 50 ML IV PRN (19:00)
--- NOTE | 2020-06-17 19:17 | NUR ---
RECEIVED BEDSIDE SHIFT REPORT FROM PREVIOUS NURSE. CALL LIGHT WITHIN REACH. PATIENT IN BED.
[2020-06-17 20:00] VITALS: BP 177/69
[2020-06-17] MEDS: INSULIN LISPRO 100 UNIT/1 ML 3ML VIAL SQ SCH (20:48)
[2020-06-18] VITALS (7 sets, daily range): BP systolic 91–185; BP diastolic 45–101
[2020-06-18] MEDS ORDERED: CEFEPIME 1GM/NS 0.9% 50 ML 50 ML IV ONE (00:45)
[2020-06-18] MEDS ORDERED: THIAMINE HCL INJ 100 MG/ML 2ML VIAL IV ONE (01:15)
[2020-06-18] MEDS ORDERED: HYDRALAZINE HCL 20 MG/ML VIAL IV PRN (01:15)
[2020-06-18] MEDS: VANCOMYCIN 750MG/NS 150ML IVPB 150 ML IV ONE ×2 (01:43→02:08)
[2020-06-18] MEDS ORDERED: SODIUM CHLORIDE 0.9% 250ML 250 ML ONE (01:46)
[2020-06-18] MEDS: ZIPRASIDONE 20 MG VIAL IM PRN ×3 (01:49→17:17)
[2020-06-18] MEDS ORDERED: VANCOMYCIN IV ONE (02:00)
[2020-06-18] MEDS ORDERED: [UNRECOGNIZED DRUG - OTHER] IV ONE (02:00)
--- NOTE | 2020-06-18 03:22 | History and Physical ---
PRIMARY CARE PHYSICIAN: Etelvina Herman at [facility] This is coverage for Dr. Angel Montes. [facility] outpatient CHIEF COMPLAINT: Altered mental status. HISTORY OF PRESENT ILLNESS: The patient is a pleasant 70-year-old female with altered mental status. The patient recently at retirement. The patient has been in assisted facility at the [facility] for one week. The patient had some level of worsened altered mental status for 2 months. The patient's doctor on the outside is Dr. Angel Montes as an outpatient. 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 Bueno in the hospital. The patient was sent to emergency room for evaluation. In the emergency room, the patient with very fragile status. She is lethargic. She is admitted for empirical therapy and presumed sepsis. PAST MEDICAL HISTORY: Hypertension, diabetes, Alzheimer disease, CVA unspecified, history of OK, hyperlipidemia, GERD, viral hepatitis C chronic, history of depression, CKD 4-5, on dialysis, repeated outpatient falls. MEDICATIONS: Medication list reviewed per the chart record. ALLERGIES: NO KNOWN DRUG ALLERGIES. FAMILY HISTORY: Noncontributory to this condition. SOCIAL HISTORY: Cannot get, very limited due to her encephalopathy. REVIEW OF SYSTEMS: Cannot get, as she is not conversing very well. PHYSICAL EXAMINATION: VITAL SIGNS: Currently afebrile, vital signs noted and reviewed per the chart record. Blood pressure 177/69. Other vitals per record. Currently on 2 L/minute nasal cannula. GENERAL: In bed, fragile, she is aware of her surroundings and can track with her eyes, but she reverts very easy to state of sleepiness. HEENT: Normocephalic, atraumatic. NECK: Supple. Throat midline. LUNGS: Bilateral air entry, few rhonchi. CARDIOVASCULAR: S1, S2. No murmurs, rubs, or gallops. ABDOMEN: Soft, nontender. Minimally full, no jaime obesity. EXTREMITIES: No clubbing, no cyanosis, there is no edema. INTEGUMENT: No rash. No purpura. LABORATORY DATA: White count 7, 29 hematocrit, 136 platelets. Potassium 3.7, bicarbonate 38, BUN 23, 3.9 creatinine. LFTs include AST 53, albumin 3.9, globulins 4.0. Coronavirus PCR is pending. Urinalysis with 21-50 wbc's. IMPRESSION AND PLAN: 1. Encephalopathy, lethargy. Likely toxic metabolic. Brain CT without acute changes. 2. Treat as suspected sepsis. 3. Urinary tract infection, abnormal urinalysis. 4. Known coronary artery disease, myocardial infarction, coronary artery bypass graft in the past. 5. Hypertension. 6. Diabetes. 7. 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 8. Gastroesophageal reflux disease. 9. Dementia, reportedly Alzheimer type. 10. Reported history of strokes. 11. Hyperlipidemia. 12. History of chronic hepatitis C. 13. History of depression. 14. History of repeated falls in past, not otherwise specified. 15. Mildly abnormal liver function tests. 16. Anemia. 17. Mild thrombocytopenia. Give empiric antibiotics. Give thiamine, empiric vitamins. Follow up closely. Renal instructional systems design consultant for dialysis. Appears the patient is getting dialysis at [facility]. Control blood pressure and diabetes. Thank you very much. Call for questions. MD ARIANE Kevin/GAB /[phone] MTDLyndsey
[2020-06-18 05:19] LABS: BASOPHILS % 0.4 % (0.0-1.0); EOSINOPHILS # (AUTO) 0.4 (0.0-0.4); EOSINOPHILS % 5.2 % (0.0-6.0); HEMATOCRIT 27.5 % (34.2-44.1); HEMOGLOBIN 9.6 g/dL (12.0-16.0); LYMPHOCYTES # (AUTO) 0.9 (1.0-3.2); LYMPHOCYTES % 12.6 % (18.0-39.1); MEAN CORPUSCULAR HEMOGLOBIN 33.2 pg (28-32); MEAN CORPUSCULAR HGB CONC 34.9 g/dL (31-35); MEAN CORPUSCULAR VOLUME 95.2 fL (81-99); MONOCYTES # (AUTO) 0.6 (0.2-0.8); MONOCYTES % 8.5 % (4.4-11.3); NEUTROPHILS # (AUTO) 4.9 (2.1-6.9); PLATELET COUNT 119 x10e3/uL (140-360); RED BLOOD COUNT 2.89 x10e6/uL (3.6-5.1); RED CELL DISTRIBUTION WIDTH 13.6 % (11.7-14.4)
[2020-06-18 05:38] LABS: ALBUMIN 3.5 g/dL (3.5-5.0); ANION GAP 14.8 mmol/L (8-16); CALCIUM 9.1 mg/dL (8.4-10.2); CREATININE, SERUM 4.47 mg/dL (0.57-1.11)
[2020-06-18 05:41] LABS: POTASSIUM 2.8 mmol/L (3.5-5.1)
--- NOTE | 2020-06-18 05:45 | NUR ---
CALLED DR. JAMES BECAUSE PATIENT HAS A CRITICAL LAB OF POTASSIUM OF 2.8. DR. JAMES WAS TOLD THE PATIENT WILL HAVE DIALYSIS THIS MORNING AND NEEDS A NEUROSCIENCE DIRECTOR NA. DR. JAMES SAID TO CONSULT DR. Morales ALAS.
--- NOTE | 2020-06-18 06:10 | NUR ---
DR. Morales ALAS WAS CALLED AND CONSULTED ABOUT THE CRITICAL LAB WITH A POTASSIUM OF 2.8 AND THE PATIENT HAS ESRD AND DIALYSIS THIS MORNING.
[2020-06-18] MEDS ORDERED: POTASSIUM CHLORIDE 10MEQ/100ML 100 ML IV ONE ×2 (06:30→08:00)
--- NOTE | 2020-06-18 06:30 | NUR ---
TALKED TO DR. Morales ALAS ABOUT THE PATIENT HAVING A POTASSIUM OF 2.8 AND HE IS CONSULTED BECAUSE THE PATIENT HAS ESRD AND HAVING DIALYSIS SO THIS MORNING SHE WILL HAVE DIALYSIS. DR. ALAS ORDER 10 MEQ OF POTASSIUM CHLORIDE OVER 1 HOUR X 2 SO OVER 2 HOURS FOR 2 BAGS
--- NOTE | 2020-06-18 06:38 | Diagnostic Imaging Report ---
EXAM: Abdomen Radiograph 1 View(s) INDICATION: abdominal fullness COMPARISON: None FINDINGS: No abnormalities in the lower chest. Partially visualized superior approach central venous catheter, tip in the inferior cavoatrial junction. Cholecystectomy clips. Vascular calcifications. Low bone mineral density. Normal volume of stool in the colon. No dilated loops of small bowel. No abnormal abdominal calcifications.. No abnormal soft tissue masses. No pneumoperitoneum. No acute osseous abnormality. Partially visualized lower sternotomy wire. Degenerative changes in the lumbar spine and pelvis. IMPRESSION: No acute abdominal radiographic abnormality. Signed by: Toby Pate DO on 06/18/2020 6:34 AM
--- NOTE | 2020-06-18 07:14 | NUR ---
GAVE BEDSIDE SHIFT REPORT TO ONCOMING NURSE. CALL LIGHT WITHIN REACH. PATIENT IN BED. HOURLY ROUNDING PERFORMED.
[2020-06-18] MEDS: INSULIN LISPRO 100 UNIT/1 ML 3ML VIAL SQ SCH ×4 (07:30→21:00)
[2020-06-18] MEDS ORDERED: SODIUM CHLORIDE 0.9% 1000ML 2,000 ML ONE (08:27)
[2020-06-18] MEDS: RANOLAZINE 500 MG TABSR PO SCH ×2 (09:00→17:00)
[2020-06-18] MEDS: METOPROLOL TARTRATE 25 MG TAB PO SCH ×2 (09:00→17:00)
[2020-06-18] MEDS: FUROSEMIDE 40 MG TAB PO SCH ×2 (09:00→17:00)
[2020-06-18] MEDS: AMANTADINE HCL 100 MG CAP PO SCH ×3 (09:00→21:00)
[2020-06-18] MEDS ORDERED: SODIUM CHLORIDE 0.9% 250ML 500 ML IV PRN (10:00)
[2020-06-18] MEDS ORDERED: ALBUMIN 25% 12.5GM 0.25 GM/ML BTL IV PRN (10:00)
[2020-06-18] MEDS ORDERED: MANNITOL 25% 12.5GM/50 ML VIAL IV PRN (10:00)
[2020-06-18] MEDS ORDERED: SODIUM CHLORIDE 0.9% 1000ML 2,000 ML IV PRN (10:00)
--- NOTE | 2020-06-18 12:45 | NUR ---
Patient resting in bed, On Dialysis, not in any distress, Dr Bueno had rounds
--- NOTE | 2020-06-18 13:04 | NUR ---
Internal Medicine Progress Note Coverage for Dr. Angel Montes. Date: 06/18/20 SUBJECTIVE: Patient following commands. Very very low mumbling vocalizations. Moves all extremities. 2 L/min oxygen Got Geodon 10 mg IM for agitation at night HD 2.0 L negative goal didnt eat much yet REVIEW OF SYSTEMS: Cannot get, as she is not conversing well. PHYSICAL EXAMINATION: VITAL SIGNS: vital signs noted and reviewed per the chart record. GENERAL: NAD, wide awake and follows commands HEENT: Normocephalic, atraumatic. NECK: Supple. Throat midline. LUNGS: Bilateral air entry, few rhonchi. CARDIOVASCULAR: S1, S2. No murmurs, rubs, or gallops. ABDOMEN: Soft, nontender. Minimally full, no jaime obesity. EXTREMITIES: No clubbing, no cyanosis, no edema. INTEGUMENT: No rash. No purpura. LABORATORY DATA: k 2.8, cr 4.47. wbc 6.7. hct 27. IMPRESSION AND PLAN: 1. Encephalopathy, lethargy. Likely toxic metabolic. Brain CT without acute changes. 2. Treat as suspected sepsis. 3. Urinary tract infection, abnormal urinalysis. 4. Hx CAD, PR, CABG 5. Hypertension. 6. Diabetes. 7. Chronic kidney disease 4-5, per notes 8. Gastroesophageal reflux disease. 9. Dementia, reportedly Alzheimer type. 10. Reported history of stroke 11. Hyperlipidemia. 12. Hx chronic hepatitis C. 13. Hx depression. 14. Hx repeated falls in past, not otherwise specified. 15. Mildly abnormal liver function tests. 16. Anemia. 17. Mild thrombocytopenia. Redose empiric antibiotics Continue thiamine, empiric vitamins Renal for intermittent dialysis. Control blood pressure and diabetes. Follow SAR2 COV test Adjust meds for agitation Thank you very much. Call for questions.
[2020-06-18] MEDS: FOLIC ACID/CYANOCOB/PYRIDOXINE TAB PO SCH (15:27)
[2020-06-18] MEDS: BENZTROPINE MESYLATE 1 MG TAB PO SCH ×2 (15:27→17:00)
[2020-06-18] MEDS: CLOPIDOGREL BISULFATE 75 MG TAB PO SCH (15:27)
[2020-06-18] MEDS: CEFEPIME 1GM/NS 0.9% 50 ML 50 ML IV SCH (15:28)
[2020-06-18] MEDS: THIAMINE HCL 100 MG TAB PO SCH (15:28)
--- NOTE | 2020-06-18 17:16 | NUR ---
Patient is agitated, trying to kick the nurse and trying to pull out IV , PRN medication given
--- NOTE | 2020-06-18 17:32 | NUR ---
Nutrition Intervention Note RD Recommendation(s) for Physician: -Continue renal diet as appropriate and texture modification per speech therapy/MD - Recommend Nepro with meals for added nutrition as appropriate Plan of Care: RD following, monitoring for tolerance and adequacy, oral supplement recommendation Nutrition reason for involvement: Nutrition Risk Trigger RD Assessment (06/18/20) Pt is a 70 year old female admitted with UTI, ESRD, and AMS. Unable to obtain nutrition history from pt since it is noted she is confused and has dementia. % meal intake is not recorded at this time. MD note indicates pt did not eat much yet. Recommend Nepro with meals for added nutrition as appropriate. Will continue to monitor Principal Problems/Diagnoses: UTI, ESRD, AMS PMH: Hypertension, diabetes, Alzheimer disease, CVA unspecified, history of [place], hyperlipidemia, GERD, viral hepatitis C chronic, history of depression, CKD 4-5, on dialysis, repeated outpatient falls. GI: last recorded BM 06/18, round/non-tender/soft abdomen Skin: intact Labs: (06/18) Na 141, K 2.8, BUN 29, Cr 4.47, AST 39 Meds: insulin, antibiotics. Mannitol, Vitamin B complex, thiamine, metoprolol, lasix, pepcid, lipitor Ht: 61 inches Wt: 96 lbs BMI: 18.1 kg/m2 IBW: 105 lbs Malnutrition Evaluation (06/18/20) Unable to assess. Will re-evaluate at follow-up as appropriate. Energy intake: Unable to assess Weight loss: Unable to assess Fat loss: unable to perform NFPE Muscle loss: unable to perform NFPE Supporting Evidence: Fluid accumulation: unable to evaluate Functional Status: unable to evaluate Nutrition Prescription (Diet Order): renal/chopped meats Estimated Nutritional Needs: 1318-8293 calories/day (30-35 kcal/kg CBW) 52-65 g protein/day (1.2-1.5 g pro/kg CBW) Diet Adequacy: Unable to evaluate at this time Tolerance: unable to evaluate Diet Education Needs Assessment: Diet education not indicated Nutrition Care Level: moderate Nutrition Diagnosis: Underweight related to predicted h/o inadequate energy intake as evidenced by BMI <18.5 kg/m2. Goal: Patient will meet 75-100% of estimated needs by follow up Progress: N/A Interventions: -mineral - modified diet, Commercial beverage Monitoring/Evaluation: -Total energy intake, Total protein intake, Modified diet, Liquid supplement, Weight change Signed: Carmela Perez RD, LD
[2020-06-18] MEDS: VANCOMYCIN 750MG/NS 150ML IVPB 150 ML IV SCH (17:48)
--- NOTE | 2020-06-18 18:29 | Consultation ---
DATE OF CONSULTATION: 06/18/2020 HISTORY OF PRESENT ILLNESS: This is a 70-year-old female, underlying end-stage renal disease, quite confused, underlying history of diabetes, hypertension, has been maintained on metoprolol, Plavix, and atorvastatin. She is currently being treated for presumed UTI, patient of Dr. Montes. Scheduled for dialysis today. No apparent drug allergies noted. SOCIAL HISTORY: Does not smoke or drink. Apparently lives in a fci. CURRENT MEDICATIONS: She is on thiamine 100 mg daily, Geodon p.r.n., Humalog insulin, Plavix 75 mg daily, atorvastatin 40 mg daily, amantadine, Symmetrel 100 mg p.o. t.i.d., Cefepime 1 g one dose given. Pepcid 20 mg once a day. Lasix 80 mg p.o. b.i.d., and insulin sliding scale. PHYSICAL EXAMINATION: GENERAL: The patient is confused, alert though follows limited commands, unable to get review of systems due to medical condition. Does not appear to be in any respiratory distress. VITAL SIGNS: Saturating 98% on nasal cannula 2 L with a blood pressure of 118/56, pulse rate 77, and afebrile. HEAD AND NECK: Cornea clear. Mucosa dry. Neck veins flat. LUNGS: Supine exam, relatively clear. HEART: S1 and S2 audible. ABDOMEN: Soft, nontender. EXTREMITIES: Lower extremity examination shows no edema workup included CT brain, which was negative. IMPRESSION: Hypokalemia, end-stage renal disease, mild fluid overload. PLAN: hemodialysis, renal diet and fluid restriction. Please see orders. MD AARON Hand/MODL /[id number]
--- NOTE | 2020-06-18 19:20 | NUR ---
received report from day nurse. patient is resting comfortably in the bed, bed is in lowest position and call light is within reach. will continue to monitor patient.
[2020-06-18] MEDS: QUETIAPINE FUMARATE 25 MG TAB PO SCH (21:00)
[2020-06-18] MEDS: FAMOTIDINE 20 MG TAB PO SCH (21:00)
[2020-06-18] MEDS: ATORVASTATIN 20 MG TAB PO SCH (21:00)
[2020-06-19] VITALS (9 sets, daily range): BP systolic 111–162; BP diastolic 52–99
[2020-06-19] MEDS: ZIPRASIDONE 20 MG VIAL IM PRN (01:18)
--- NOTE | 2020-06-19 01:18 | NUR ---
patient is agitated and is fighting and cursing staff during provision of care. Will medicate with PRN medication.
--- NOTE | 2020-06-19 06:27 | NUR ---
patients sugar has been rechecked and found to be 172. patient is sitting in the chair. sitter at bedside.
--- NOTE | 2020-06-19 06:32 | NUR ---
patient is asleep in bed. respirations are even and unlabored. continues on oxygen therapy. bed is in lowest position.
[2020-06-19] MEDS: INSULIN LISPRO 100 UNIT/1 ML 3ML VIAL SQ SCH ×4 (07:30→20:58)
--- NOTE | 2020-06-19 08:45 | NUR ---
unable to get am meds in at this time. patient lethargic and coughing when swallowing water. will monitor and see if patient wakes more later.
[2020-06-19] MEDS: RANOLAZINE 500 MG TABSR PO SCH ×2 (09:00→17:00)
[2020-06-19] MEDS: THIAMINE HCL 100 MG TAB PO SCH (09:00)
[2020-06-19] MEDS: FOLIC ACID/CYANOCOB/PYRIDOXINE TAB PO SCH (09:00)
[2020-06-19] MEDS: FUROSEMIDE 40 MG TAB PO SCH ×2 (09:00→17:00)
[2020-06-19] MEDS: BENZTROPINE MESYLATE 1 MG TAB PO SCH ×2 (09:00→17:00)
[2020-06-19] MEDS: AMANTADINE HCL 100 MG CAP PO SCH ×3 (09:00→20:58)
[2020-06-19] MEDS: CLOPIDOGREL BISULFATE 75 MG TAB PO SCH (09:00)
[2020-06-19] MEDS: METOPROLOL TARTRATE 25 MG TAB PO SCH ×2 (09:00→17:00)
--- NOTE | 2020-06-19 11:02 | NUR ---
Left message for Dr. Mckinley, covering for Dr. Montes. Requested In Patient order. Awaiting his reply
--- NOTE | 2020-06-19 16:48 | NUR ---
unable to get any PO meds in patient today. still very hard to arouse and coughs when water sip given.
--- NOTE | 2020-06-19 19:45 | NUR ---
BEDSIDE SHIFT REPORT RECEIVED FROM RN. PT AWAKE BUT QUIET. 02 ON AT 2 l PER N/C. RESPIRATIONS ARE EVEN AND UNLABORED. LUNGS CLEAR. SL 22 G IN RT HAND. SL RT THUMB 20G. ABDOMEN SOFT. BOWEL SOUNDS PRESENT. HX DIALYSIS. LEFT UPPER ARM FISTULA PRESENT. PT RESTING QUIETLY MOVING HER ARM AND LEG AT TIMES. CALL LIGHT IS WITHIN REACH. BED IN LOW POSITION. BED ALARM ON.
[2020-06-19] MEDS: QUETIAPINE FUMARATE 25 MG TAB PO SCH (21:00)
[2020-06-19] MEDS: ATORVASTATIN 20 MG TAB PO SCH (21:00)
[2020-06-19] MEDS: FAMOTIDINE 20 MG TAB PO SCH (21:00)
--- NOTE | 2020-06-19 21:00 | NUR ---
PT SLEEPY. PO MEDS HELD.
--- NOTE | 2020-06-19 22:03 | NUR ---
Internal Medicine Progress Note Coverage for Dr. Angel Montes. Date: 06/19/20 SUBJECTIVE: 2 L / min oxygen by NC sleepy today had scott again prn ~ 1 am didnt eat much REVIEW OF SYSTEMS: Cannot get, as she is not conversing well. PHYSICAL EXAMINATION: VITAL SIGNS: vital signs noted and reviewed per the chart record. GENERAL: NAD, in bed HEENT: Normocephalic, atraumatic. NECK: Supple. Throat midline. LUNGS: Bilateral air entry, few rhonchi. CARDIOVASCULAR: S1, S2. No murmurs, rubs, or gallops. ABDOMEN: Soft, nontender. Minimally full, no jaime obesity. EXTREMITIES: No clubbing, no cyanosis, no edema. INTEGUMENT: No rash. No purpura. LABORATORY DATA: no new updates COV-2 SARs negative IMPRESSION AND PLAN: 1. Encephalopathy, lethargy. Likely toxic metabolic. Brain CT without acute changes. 2. Treat as sepsis. 3. Urinary tract infection, abnormal urinalysis. Late UCX NGTD, 4. Hx CAD, [place], CABG 5. Hypertension. 6. Diabetes. 7. Chronic kidney disease 4-5, per notes. 8. Gastroesophageal reflux disease. 9. Dementia, reportedly Alzheimer type. 10. Reported history of stroke 11. Hyperlipidemia. 12. Hx chronic hepatitis C. 13. Hx depression. 14. Hx repeated falls in past, not otherwise specified. 15. Mildly abnormal liver function tests. 16. Anemia. 17. Mild thrombocytopenia. Redose empiric antibiotics -follow cultures Continue thiamine, empiric vitamins Renal for intermittent dialysis. Control blood pressure and diabetes. Follow SAR2 COV test Adjust meds for agitation Thank you very much. Call for questions.
[2020-06-19] MEDS ORDERED: ZIPRASIDONE 20 MG VIAL IM PRN (22:15)
[2020-06-19] MEDS ORDERED: QUETIAPINE FUMARATE 25 MG TAB PO PRN (22:15)
[2020-06-20] VITALS (7 sets, daily range): BP systolic 94–159; BP diastolic 53–93
--- NOTE | 2020-06-20 03:30 | NUR ---
pt moving in bed. pt pulled out thumb iv. iv in hand unable to flush. Both iv d/c. New iv started 22 g rt ac. pt moving in bed - both arms and legs. pt open her eys but did not speak to staff. Pressure dressing to old iv sites.
[2020-06-20 06:26] LABS: ALBUMIN 4.4 g/dL (3.5-5.0); ANION GAP 23.2 mmol/L (8-16); CALCIUM 10.3 mg/dL (8.4-10.2); CREATININE, SERUM 6.45 mg/dL (0.57-1.11); POTASSIUM 4.2 mmol/L (3.5-5.1)
[2020-06-20] MEDS: INSULIN LISPRO 100 UNIT/1 ML 3ML VIAL SQ SCH ×4 (07:30→20:41)
[2020-06-20] MEDS: FUROSEMIDE 40 MG TAB PO SCH ×2 (08:28→16:33)
[2020-06-20] MEDS: BENZTROPINE MESYLATE 1 MG TAB PO SCH ×2 (08:28→16:33)
[2020-06-20] MEDS: CLOPIDOGREL BISULFATE 75 MG TAB PO SCH (08:29)
[2020-06-20] MEDS: FOLIC ACID/CYANOCOB/PYRIDOXINE TAB PO SCH (08:29)
[2020-06-20] MEDS: RANOLAZINE 500 MG TABSR PO SCH ×2 (08:29→16:34)
[2020-06-20] MEDS: METOPROLOL TARTRATE 25 MG TAB PO SCH ×2 (08:29→16:33)
[2020-06-20] MEDS: THIAMINE HCL 100 MG TAB PO SCH (08:30)
--- NOTE | 2020-06-20 13:37 | NUR ---
Internal Medicine Progress Note Coverage for Dr. Angel Montes. Date: 06/20/20 SUBJECTIVE: poor eating not on PRN psyche medications last night aspirating easily detected by nursing. reasonably awake? not cooperative, doesnt talk usually REVIEW OF SYSTEMS: Cannot get, as she is not conversing well. PHYSICAL EXAMINATION: VITAL SIGNS: vital signs noted and reviewed per the chart record. GENERAL: NAD, in bed HEENT: Normocephalic, atraumatic. NECK: Supple. Throat midline. LUNGS: Bilateral air entry, few rhonchi. CARDIOVASCULAR: S1, S2. No murmurs, rubs, or gallops. ABDOMEN: Soft, nontender. Minimally full, no jaime obesity. EXTREMITIES: No clubbing, no cyanosis, no edema. INTEGUMENT: No rash. No purpura. LABORATORY DATA: k 4.2, cr 6.45. IMPRESSION AND PLAN: 1. Encephalopathy, lethargy. Likely toxic metabolic. Brain CT without acute changes. 2. Treat as sepsis. 3. Urinary tract infection, abnormal urinalysis. Late UCX NGTD 4. Hx CAD, [place], CABG 5. Hypertension. 6. Diabetes. 7. Chronic kidney disease 4-5, per notes. 8. Gastroesophageal reflux disease. 9. Dementia, reportedly Alzheimer type. 10. Reported history of stroke 11. Hyperlipidemia. 12. Hx chronic hepatitis C. 13. Hx depression. 14. Hx repeated falls in past, not otherwise specified. 15. Mildly abnormal liver function tests. 16. Anemia. 17. Mild thrombocytopenia. Redose empiric antibiotics -follow blood cultures --> NGTD -late sample urine culture negative -stop abx soon Continue thiamine, empiric vitamins Renal for intermittent dialysis. Control blood pressure and diabetes. Adjust meds for agitation as needed Neuro consult due to polypharmacy, baseline neuro syndrome NOS, and to avoid overdosages Thank you very much. Call for questions.
--- NOTE | 2020-06-20 13:40 | NUR ---
RCD PT FROM MED SURG 1 BY BED PT IS IN ALTERED MENTAL STATUS SHE IS RESPONDING ONLY ON PAINFUL STIMULI ,VITALS CHECKED BED LOW AND LOCKED CALL LIGHT IN REACH
--- NOTE | 2020-06-20 13:49 | NUR ---
Report called to Kim on MS2 and patient transferred to 200
--- NOTE | 2020-06-20 17:45 | NUR ---
PT WENT TO PROCEDURE IN SAFE CONDITION
--- NOTE | 2020-06-20 18:46 | NUR ---
PT RESTING ON BED BED SIDE REPORT GIVEN TO ONCOMING NURSE
--- NOTE | 2020-06-20 19:14 | Diagnostic Imaging Report ---
MRI BRAIN WO HISTORY: Altered mental status COMPARISON: Head CT 06/17/2020, 06/14/2020, 09/10/2019 TECHNIQUE: Sagittal T2, axial T2, axial T1, axial T2/FLAIR, axial gradient echo (or susceptibility weighted), coronal T2/FLAIR, and axial diffusion weighted MR images of the brain were obtained without contrast. Motion artifacts obscure some details. DISCUSSION: Scalp/bone marrow: Unremarkable. Brain sulci: Mildly prominent. Ventricles: Mild supratentorial ventriculomegaly is similar to the recent head CTs. Extra-axial spaces: No masses or fluid collections. Parenchyma: Mild confluent bilateral periventricular T2/FLAIR hyperintensity is present. Mild T2 hyperintensity in the wes is also present. Subtle focal grossly symmetric T2/FLAIR hyperintense lesions in the globi pallidi may be related to prior toxic/metabolic insult. Otherwise, no mass, hemorrhage, or acute vascular insults. Vessels: Normal flow voids in major arteries and veins. Sellar/Suprasellar region: No abnormalities. Craniocervical junction: No abnormalities. Incidental findings: Left sphenoid sinus mucosal thickening is present. IMPRESSION: 1. Mild supratentorial ventriculomegaly (grossly similar to recent head CTs with differences in technique taken into account) may be slightly out of proportion to sulcal prominence. Correlate for mild communicating hydrocephalus (i.e. normal pressure hydrocephalus in the appropriate clinical setting). 2. Associated mild confluent bilateral periventricular T2/FLAIR hyperintensity may be due to mild transependymal CSF flow and/or mild chronic microvascular ischemic change. 3. Subtle small focal grossly symmetric T2/FLAIR hyperintense lesions in the globi pallidi may be related to prior toxic/metabolic insult. 4. No other definite acute intracranial abnormalities. Specifically, no evidence for acute ischemia. 5. Mild pontine chronic microvascular ischemic change. Signed by: Dr. Peyman Garcia M.D. on 06/20/2020 7:10 PM
[2020-06-20] MEDS: QUETIAPINE FUMARATE 25 MG TAB PO SCH (20:41)
[2020-06-20] MEDS: FAMOTIDINE 20 MG TAB PO SCH (20:41)
[2020-06-20] MEDS: ATORVASTATIN 20 MG TAB PO SCH (20:41)
[2020-06-21] VITALS (8 sets, daily range): BP systolic 109–163; BP diastolic 56–78
--- NOTE | 2020-06-21 07:15 | NUR ---
Bedside report and walking rounds completed with oncoming nurse. Patient in bed with call light within reach. No issues or concerns noted.
[2020-06-21] MEDS: INSULIN LISPRO 100 UNIT/1 ML 3ML VIAL SQ SCH ×4 (07:30→21:00)
[2020-06-21] MEDS: FUROSEMIDE 40 MG TAB PO SCH ×2 (09:00→16:18)
[2020-06-21] MEDS: THIAMINE HCL 100 MG TAB PO SCH (09:00)
[2020-06-21] MEDS: RANOLAZINE 500 MG TABSR PO SCH ×2 (09:00→16:18)
[2020-06-21] MEDS: CLOPIDOGREL BISULFATE 75 MG TAB PO SCH (09:00)
[2020-06-21] MEDS: METOPROLOL TARTRATE 25 MG TAB PO SCH ×2 (09:00→16:18)
[2020-06-21] MEDS: FOLIC ACID/CYANOCOB/PYRIDOXINE TAB PO SCH (09:00)
[2020-06-21] MEDS: BENZTROPINE MESYLATE 1 MG TAB PO SCH ×2 (09:00→16:17)
--- NOTE | 2020-06-21 10:00 | NUR ---
Patient is unable to tolerate PO medications this am as she continues to be have an altered level of consciousness that has developed over the weekend. MD is aware.
--- NOTE | 2020-06-21 12:49 | NUR ---
ST NOTE: Spoke with GEORGE Mao, pt not appropriate for PO trials due to reduced level of alertness, will continue to follow pt for improvement in status.
--- NOTE | 2020-06-21 13:23 | Progress Note ---
DATE: 06/21/2020 SUBJECTIVE: Events noted. The patient is being seen for the following problems: 1. Encephalopathy, likely metabolic. 2. Sepsis. 3. UTI. 4. Chronic kidney disease stage 4 to 5. 5. Dementia, Alzheimer's. 6. History of stroke. 7. Chronic hepatitis C. 8. Hypertension. 9. Diabetes mellitus. 10. Coronary artery disease. 11. Previous PA. 12. Status post coronary artery bypass graft surgery. 13. History of depression. 14. Anemia and thrombocytopenia. 15. Abnormal liver function test. PLAN OF CARE: At this point in time, we are following up blood cultures. So far, the cultures have been negative. Continue intermittent dialysis. Monitor blood pressure and glycemic control. Continue vitamins, antibiotics, and thiamine. Medication will be adjusted for agitation. The patient does have baseline neuro syndrome nonspecific and Neuro was consulted for polypharmacy. We had to be careful with not overdosing patient. The patient's list of medications noted. As far as what the microbiology is concerned, blood cultures so far are negative. As far as what the current medication is concerned, presently on vancomycin, cefepime, hydralazine, Nepro-James, thiamine, Ranexa, metoprolol tartrate, Lasix, famotidine, Plavix, Cogentin, atorvastatin, insulin lispro, Seroquel, Geodon, albumin, mannitol, complete list of medications noted. The patient is being followed by Renal as well, and has been on hemodialysis. MD JOEY Maldonado/GAB /[id number]
--- NOTE | 2020-06-21 13:24 | Consultation ---
DATE OF CONSULTATION: 06/20/2020 REASON FOR CONSULTATION: Altered mental status. HISTORY: A 70-year-old female who was admitted confused with shaking, hence a Neurology consult. The patient has a long list of medications including Symmetrel which she takes for a neurological illness at home. The patient herself is confused and such the history is mainly from the chart. The patient has been admitted since the and she went this afternoon earlier for an MRI of the brain, which shows the finding suggestive of normal-pressure hydrocephalus as well as chronic changes in the basal ganglia and globus pallidus probably related to previous insult, mainly toxic or metabolic. The patient has severe abnormal movements and shaking. Confused, does not answer questions appropriately. She is now probably also under the effect of sedation from the MRI prior. PAST MEDICAL HISTORY: Hypertension, diabetes. She has been diagnosed with dementia of the Alzheimer's type, strokes, PR, hyperlipidemia, GERD, hepatitis C, history of depression, and chronic kidney disease, on dialysis. MEDICATIONS: Cefepime, hydralazine, folic acid, thiamine, furosemide, Plavix, Pepcid, Lasix, Ranexa, Lopressor, Seroquel, Lipitor, cogentin, Geodon IM p.r.n., and mannitol. FAMILY HISTORY: Unknown to me. ALLERGIES: NO KNOWN DRUG ALLERGIES PER THE CHART. SOCIAL HISTORY: Previous history of alcohol abuse apparently as well as drug abuse, but nothing recent. REVIEW OF SYSTEMS: It is noted that the patient has issues with incontinence as well as gait problems before this admission. At this time, it is difficult to obtain a review of system considering her condition. PHYSICAL EXAMINATION: VITAL SIGNS: Temperature 98.3, blood pressure 160/69. The patient tested negative for COVID. GENERAL APPEARANCE: She is confused. EXTREMITIES: No edema. NEUROLOGIC: The patient is confused without obvious cognitive impairment. Does not follow commands except simple ones. Extraocular muscle movements were intact. No definite facial asymmetry. She has very ataxic gait with significant apraxia. She also has bilateral tremors as well as choreic movements intermittently. Tone is increased, but there are no definite other abnormalities. Deep tendon reflexes are 1. Plantars are flexor. IMAGING DATA: MRI of brain reviewed, which shows chronic changes with findings suggestive of possible normal-pressure hydrocephalus by imaging. LABORATORY DATA: She has multiple metabolic abnormalities and her ammonia level was in a borderline high side. ASSESSMENT AND PLAN: 1. The patient is encephalopathic, which is mainly infectious on top of her chronic neurodegenerative disease. Her movement disorders may be related to the previous insult to the basal ganglia and globus pallidus on top of the metabolic changes. The patient also has findings suggestive of normal-pressure hydrocephalus by imaging as well as by history and exam. We will need to review the previous treatments of old records she had for those issues. We will set up the patient for a cisternogram to further evaluate the possibility of normal-pressure hydrocephalus. Treat hyperammonemia as needed, correct metabolic abnormalities. Watch for neurotoxicity from cefepime and treatment of recurrent urosepsis and UTI is underway. We will need Physical and Occupational Therapy evaluation. Continue with thiamine and vitamins. Dialysis is underway. We will keep her on neuro checks every shift. 2. Hypertension. 3. Urinary tract infection. 4. History of coronary artery disease. 5. Chronic kidney disease, on dialysis. 6. Hyperlipidemia. 7. Chronic hepatitis C. 8. Depression history. 9. Anemia. 10. Thrombocytopenia. We will also check an EEG to further evaluate and rule out the possibility of superimposed seizures considering the above and assess the degree of her encephalopathy. Cecilia Kelley MD AM/GAB /[id number]
--- NOTE | 2020-06-21 16:21 | NUR ---
Patient continues to lay in bed awake , non verbal with only response to pain or turning her head to occasional calling of her name. MD is aware, will continue to monitor, VSS
[2020-06-21] MEDS: VANCOMYCIN 750MG/NS 150ML IVPB 150 ML IV SCH (16:40)
[2020-06-21] MEDS: DEXTROSE 5%/0.45% SOD CHL 1,000 ML IV SCH (17:01)
[2020-06-21] MEDS: CEFEPIME 1GM/NS 0.9% 50 ML 50 ML IV SCH (17:01)
--- NOTE | 2020-06-21 19:00 | NUR ---
Resumed care of patient. Patient resting quietly in bed, respirations even and unlabored on 2L NC. Oriented to person. Bed locked and in lowest position, side rails up x3, alarm on, call light placed within reach. All safety measures in place.
--- NOTE | 2020-06-21 19:40 | NUR ---
Spoke to Dr. Kelley and received orders to consult IR for cisternogram.
[2020-06-21] MEDS: QUETIAPINE FUMARATE 25 MG TAB PO SCH (21:00)
[2020-06-21] MEDS: FAMOTIDINE 20 MG TAB PO SCH (21:00)
[2020-06-21] MEDS: ATORVASTATIN 20 MG TAB PO SCH (21:00)
--- NOTE | 2020-06-21 22:11 | Progress Note ---
DATE: 06/21/2020 SUBJECTIVE: The patient is the same. Today, she is still confused. Minimal interaction today, in fact, she probably is even worse. MEDICATIONS: Include Geodon, thiamine, vancomycin, Ranexa, Seroquel, folic acid, hydralazine, mannitol, Pepcid, cefepime, Plavix, Cogentin, and Lipitor. PHYSICAL EXAMINATION: The patient is confused and follows simple commands only, more rigid today. . She still has minimal tremors, but no choreiform activity today. The patient with no lateralization or weakness, otherwise. Pupils are reactive bilaterally to light. Extraocular muscles were intact. No facial asymmetry. Deep tendon reflexes are 1. Plantars are flexor. ASSESSMENT: The patient will be further evaluated . We will be obtaining a cisternogram. We will also send CSF for further studies. PT and OT and speech therapy evaluation will be initiated. Suggest switching cefepime to another medication. We will check EEG when finished. We will also check a CK level and watch for any NMS like picture. She will be kept on neuro checks. Treatment of ongoing infections and metabolic abnormalities per the other services. Cecilia Kelley MD AM/GAB /[id number]
[2020-06-22] VITALS (8 sets, daily range): BP systolic 111–143; BP diastolic 50–77
[2020-06-22 05:21] LABS: INR 1.11; PARTIAL THROMBOPLASTIN TIME 29.9 seconds (23.8-35.5); PROTHROMBIN TIME 14.9 seconds (11.9-14.5)
--- NOTE | 2020-06-22 07:06 | NUR ---
Bedside report given to oncoming nurse. Patient awake and resting in bed, no s/s of distress at this time. All safety measures in place.
[2020-06-22] MEDS: INSULIN LISPRO 100 UNIT/1 ML 3ML VIAL SQ SCH ×4 (08:00→21:06)
--- NOTE | 2020-06-22 08:00 | NUR ---
Dr. Kelley called and said to notify radiology to "drain the maximum amount of fluid at least 45cc". I spoke to Estefanía RN in radiology who said she would pass along to radiologist. I also gave her Dr. Kelley's direct phone number incase they have any further questions
[2020-06-22] MEDS: RANOLAZINE 500 MG TABSR PO SCH ×2 (09:00→16:52)
[2020-06-22] MEDS: METOPROLOL TARTRATE 25 MG TAB PO SCH ×2 (09:00→16:52)
[2020-06-22] MEDS: FUROSEMIDE 40 MG TAB PO SCH ×2 (09:00→16:51)
[2020-06-22] MEDS: BENZTROPINE MESYLATE 1 MG TAB PO SCH ×2 (09:00→16:52)
--- NOTE | 2020-06-22 09:57 | Diagnostic Imaging Report ---
Discussed procedure request with Dr. Torrez on the phone. The procedure cannot be immediately performed as the specific radiopharmaceutical needs to be ordered. In addition, the procedure would then require imaging 4 hours, 24, hours, and 48 hours after the injection per standard protocol. Dr. Torrez indicated that he did not find this acceptable and requested to cancel the procedure as he would likely transfer the patient to another hospital. Thank you for involving us in the care of this patient. Ashly Capone MD Signed by: Ashly Capone MD on 06/22/2020 9:54 AM
[2020-06-22] MEDS: DEXTROSE 5%/0.45% SOD CHL 1,000 ML IV SCH (10:45)
--- NOTE | 2020-06-22 12:19 | NUR ---
Pt gets outpatient HD at [facility] MWF at [phone].
--- NOTE | 2020-06-22 14:04 | NUR ---
internal medicine coverage I tried to reach the family to update them. Recommend transfer to higher level of care for cisternogram. No radiologic contrast/isotope here, no delivery expectant soon due to inclement weather. i could not reach the daughter yet to inform. No answer.
--- NOTE | 2020-06-22 14:31 | NUR ---
Internal Medicine Progress Note Coverage for Dr. Angel Montes. Date: 06/22/20 SUBJECTIVE: not on PRN psyche medications last night limited PO, aspiration? more awake today, talking phrases reportedly walked today d/w radiology and neurology. REVIEW OF SYSTEMS: Cannot get, as she is not conversing reliably PHYSICAL EXAMINATION: VITAL SIGNS: vital signs noted and reviewed per the chart record. GENERAL: NAD, in bed. Alert, attentive. HEENT: Normocephalic, atraumatic. NECK: Supple. Throat midline. LUNGS: Bilateral air entry, few rhonchi. CARDIOVASCULAR: S1, S2. No murmurs, rubs, or gallops. ABDOMEN: Soft, nontender. Minimally full, no jaime obesity. EXTREMITIES: No clubbing, no cyanosis, no edema. INTEGUMENT: No rash. No purpura. LABORATORY DATA: k 4.2, cr 6.46. wbc 7, hct 28, plt 119 IMPRESSION AND PLAN: 1. Encephalopathy, lethargy. Likely toxic metabolic. Brain CT without acute changes. Improving. 2. Treat as sepsis. 3. Urinary tract infection, abnormal urinalysis. Late UCX NGTD 4. Hx CAD, [place], CABG 5. Hypertension. 6. Diabetes. 7. Chronic kidney disease 4-5, per notes. 8. Gastroesophageal reflux disease. 9. Dementia, reportedly Alzheimer type. 10. Reported history of stroke 11. Hyperlipidemia. 12. Hx chronic hepatitis C. 13. Hx depression. 14. Hx repeated falls in past, not otherwise specified. 15. Mildly abnormal liver function tests. 16. Anemia. 17. Mild thrombocytopenia. 18. Suspected NPH 19. bilateral basal ganglia gliosis/injury NOS. previous toxic or metabolic insult possible. cant rule out hypoxic component. Continue empiric antibiotics -follow blood cultures --> NGTD x 72 hrs -late sample urine culture negative -stop abx soon Continue thiamine, empiric vitamins Renal for intermittent dialysis. Control blood pressure and diabetes. Adjust meds for agitation as needed Neuro consult due to polypharmacy, baseline neuro syndrome NOS, and to avoid overdosages Transfer to higher level of care. See IM quick note from today, see neuro notes, see radiology note. No cisternogram feasible here and no deliver of isotope expected due to inclement weather. (I could not reach the family at the listed number.) MBS today PT/OT continue, escalate as she improves Thank you very much. Call for questions.
--- NOTE | 2020-06-22 15:05 | NUR ---
Received order to transfer pt for higher level of care. CM called pt's son Yusef Galvez [phone]. Left for call back.
--- NOTE | 2020-06-22 16:18 | NUR ---
Spoke with pt's son Yusef [phone] regarding order to transfer to higher level of care for cisternogram. He states he wants to speak to a doctor regarding procedure prior to making a decision. Message left for Dr. Mckinley with pt's son's contact information.
[2020-06-22] MEDS: CLOPIDOGREL BISULFATE 75 MG TAB PO SCH (16:51)
[2020-06-22] MEDS: THIAMINE HCL 100 MG TAB PO SCH (16:51)
[2020-06-22] MEDS: FOLIC ACID/CYANOCOB/PYRIDOXINE TAB PO SCH (16:51)
--- NOTE | 2020-06-22 17:01 | NUR ---
Notified Dr. Dial that I think patient had a seizure when we were changing and repositioning her. New orders received.
[2020-06-22] MEDS ORDERED: LEVETIRACETAM 500MG/5ML VIAL 1,000 MG in SODIUM CHLORIDE 0.9% 100 ML 100 ML IV ONE (17:15)
--- NOTE | 2020-06-22 18:13 | NUR ---
Report called to GEORGE Childress. Patient will be transferred to med surg 1 room 101
--- NOTE | 2020-06-22 18:30 | NUR ---
Received report from GEORGE Espino at 1820. Patient arrived to floor at 1830. Patient was oriented to room, assessed, and has a call light within reach and bed in the lowest position. Will continue to monitor.
--- NOTE | 2020-06-22 18:35 | NUR ---
Patient transferred to [facility] one without any complications. Patient is alert and oriented x2 at this time and in no distress.
[2020-06-22] MEDS: QUETIAPINE FUMARATE 25 MG TAB PO SCH (21:00)
[2020-06-22] MEDS: ATORVASTATIN 20 MG TAB PO SCH (21:04)
[2020-06-22] MEDS: FAMOTIDINE 20 MG TAB PO SCH (21:04)
--- NOTE | 2020-06-22 21:09 | NUR ---
MD JAMES SPOKE WITH GIANNA SCHREIBER (THE PATIENTS SON) CONCERNING NEED TO TRANSFER. OVER THE PHONE CONSENT RECEIVED FOR PT TO TRANSFER. BLIND EYELETTER NOTIFIED.
[2020-06-22] MEDS ORDERED: LEVETIRACETAM 500MG/5ML VIAL 500 MG in SODIUM CHLORIDE 0.9% 100 ML 100 ML IV SCH (21:15)
--- NOTE | 2020-06-22 22:22 | Consultation ---
DATE OF CONSULTATION: 06/22/2020 REASON FOR CONSULTATION: Rule out normal-pressure hydrocephalus. HISTORY OF PRESENT ILLNESS: The patient is a 70-year-old renal dialysis patient who has been admitted for reasons that are unclear to me at this time, who was recently apparently quite obtunded. However, this morning she is awake and alert. She has been undergoing a neurological evaluation by Dr. Kelley. An MRI of the brain was performed as a part of this evaluation, which was interpreted by radiologist as possibly revealing normal-pressure hydrocephalus, pending correlation with clinical findings. I was therefore consulted. The patient's history is not all consistent or suggestive of normal-pressure hydrocephalus. She was apparently profoundly obtunded. Her MRI reveals only minimal dilatation of the lateral ventricles, which is in fact completely in proportion to the degree of cerebral atrophy. There are mild periventricular microvascular ischemic changes. IMPRESSION: The patient does not have hydrocephalus. Her clinical scenario is not compatible with normal-pressure hydrocephalus. The MRI findings do not account for her previous obtundation. Nonetheless, she is awake and alert, albeit confused today. She does not require any neurosurgical intervention. I will sign off. Management per Neurology. Kev Marley MD PP/MODCarlito /[id number]
[2020-06-23] VITALS (11 sets, daily range): BP systolic 101–156; BP diastolic 56–88
--- NOTE | 2020-06-23 00:25 | NUR ---
SPOKE WITH BEEF FARMER Devonte PEREZ RN CONCERNING PT TRANSFER TO [facility]. WAS INFORMED THAT PT WAS DECLINED TRANSFER AT THIS TIME. MD METZGER AWARE AND BEEF FARMER TO CALL MD JAMES TO NOTIFY.
--- NOTE | 2020-06-23 00:42 | Progress Note ---
DATE: 06/22/2020 SUBJECTIVE: The patient today was more awake in the morning. In the afternoon, she had seizure activity and she was confused during that episode. She was loaded with Keppra. Apparently, the LP could not be done here or the cisternogram and the patient will be transferred to the [facility] for the same. MEDICATIONS: Same. In addition, she is on Keppra. PHYSICAL EXAMINATION: GENERAL: The patient is confused now. No lateralization. Minimal tremors noted bilaterally. NEUROLOGIC: Deep tendon reflexes are 1. Plantars are flexor. ASSESSMENT: Ventriculomegaly with possibility of normal-pressure hydrocephalus. Old insult to the basal ganglia, etiology unclear. Status post seizure. We will continue with Keppra 500 b.i.d. Awaiting transfer to another facility to have the cisternogram and LP completed. Continue with current treatment. Cecilia Kelley MD AM/GAB /[id number]
[2020-06-23] MEDS: LEVETIRACETAM 500MG/5ML VIAL 500 MG in SODIUM CHLORIDE 0.9% 100 ML 100 ML IV SCH ×3 (05:04→17:09)
[2020-06-23] MEDS: DEXTROSE 5%/0.45% SOD CHL 1,000 ML IV SCH (05:08)
--- NOTE | 2020-06-23 07:00 | NUR ---
RECEIVED PATIENT RESTING IN BED NO S/S OF DISTRESS. BED LOW, WHEELS LOCKED, SIDE RAILS X2. CALL LIGHT IN REACH WILL CONTINUE TO MONITOR PATIENT.
[2020-06-23] MEDS: INSULIN LISPRO 100 UNIT/1 ML 3ML VIAL SQ SCH ×4 (07:30→21:30)
[2020-06-23] MEDS ORDERED: SODIUM CHLORIDE 0.9% 1000ML 2,000 ML ONE (07:44)
--- NOTE | 2020-06-23 08:20 | NUR ---
ST Note: Attempted f/u to ensure tolerance of recommended diet. Pt getting HD. Per RN, pt NPO this AM for procedure. Will f/u later time permitting.
[2020-06-23] MEDS: BENZTROPINE MESYLATE 1 MG TAB PO SCH ×2 (08:33→16:32)
[2020-06-23] MEDS: FUROSEMIDE 40 MG TAB PO SCH (08:33)
[2020-06-23] MEDS: METOPROLOL TARTRATE 25 MG TAB PO SCH ×2 (08:33→16:32)
[2020-06-23] MEDS: RANOLAZINE 500 MG TABSR PO SCH ×2 (08:34→16:33)
[2020-06-23 08:37] LABS: BASOPHILS % 0.4 % (0.0-1.0); EOSINOPHILS # (AUTO) 0.3 (0.0-0.4); EOSINOPHILS % 6.6 % (0.0-6.0); HEMOGLOBIN 7.9 g/dL (12.0-16.0); LYMPHOCYTES % 20.7 % (18.0-39.1); MEAN CORPUSCULAR HEMOGLOBIN 30.5 pg (28-32); MEAN CORPUSCULAR HGB CONC 32.9 g/dL (31-35); MEAN CORPUSCULAR VOLUME 92.7 fL (81-99); MONOCYTES # (AUTO) 0.6 (0.2-0.8); MONOCYTES % 13.3 % (4.4-11.3); NEUTROPHILS # (AUTO) 2.8 (2.1-6.9); NEUTROPHILS % 58.6 % (38.7-80.0); PLATELET COUNT 99 x10e3/uL (140-360); RED BLOOD COUNT 2.59 x10e6/uL (3.6-5.1); RED CELL DISTRIBUTION WIDTH 13.5 % (11.7-14.4)
[2020-06-23 08:55] LABS: ANION GAP 14.9 mmol/L (8-16); CREATININE, SERUM 4.93 mg/dL (0.57-1.11)
[2020-06-23] MEDS: FOLIC ACID/CYANOCOB/PYRIDOXINE TAB PO SCH (09:00)
[2020-06-23] MEDS: CLOPIDOGREL BISULFATE 75 MG TAB PO SCH (09:00)
[2020-06-23] MEDS: THIAMINE HCL 100 MG TAB PO SCH (09:00)
[2020-06-23 09:16] LABS: POTASSIUM 2.9 mmol/L (3.5-5.1)
--- NOTE | 2020-06-23 09:27 | NUR ---
LP SCHEDULED FOR TODAY
--- NOTE | 2020-06-23 11:33 | NUR ---
TELEPHONE CONSENT RECEIVED FROM SON, GIANNA SCHREIBER FOR LUMBAR PUNCTURE
--- NOTE | 2020-06-23 11:55 | NUR ---
1L removed with dialysis.
[2020-06-23] MEDS ORDERED: LIDOCAINE HCL 1% 2 ML AMP ONE (12:42)
[2020-06-23] MEDS ORDERED: LIDOCAINE HCL 1% LOCAL INJ 20 ML VIAL ONE (12:44)
--- NOTE | 2020-06-23 12:44 | NUR ---
PATIENT OFF UNIT TO RADIOLOGY FOR LUMBAR PUNCTURE.
[2020-06-23 14:04] LABS: APPEARANCE,CSF CLEAR (CLEAR); COLOR,CSF COLORLESS (COLORLESS); TUBE NUMBER 1
--- NOTE | 2020-06-23 14:07 | Diagnostic Imaging Report ---
PROCEDURE: Lumbar puncture Procedural Personnel Attending physician(s): Ahsly Capone MD Fellow physician(s): None Resident physician(s): None Advanced practice provider(s): None Pre-procedure diagnosis: Altered mental status Post-procedure diagnosis: Same Indication: Altered mental status Additional clinical history: None Complications: No immediate complications. IMPRESSION: Fluoroscopically guided lumbar puncture. CSF opening pressure was very low to the point of being undetectable. Only 3cc of clear CSF could be obtained. PROCEDURE SUMMARY: - Fluoroscopically guided lumbar puncture at L3-4. - Opening pressure undetectable. PROCEDURE DETAILS: Pre-procedure Consent: Informed consent for the procedure including risks, benefits and alternatives was obtained and time-out was performed prior to the procedure. Preparation: The site was prepared and draped using maximal sterile barrier technique including cutaneous antisepsis. Anesthesia/sedation Level of anesthesia/sedation: Local 1% lidocaine Lumbar Puncture Junior Mechanical Engineer images were obtained. Under image guidance and via a translaminar approach, a needle was advanced to the thecal space. Opening pressure was measured and CSF was obtained for further analysis. Target level: L3-4 Radiation Dose Fluoroscopy time (minutes): 2.4 Reference air kerma (mGy): 18.0 Additional Details Additional description of procedure: None Equipment details: None Specimens removed: 3cc clear CSF. Estimated blood loss (mL): Less than 10 Attestation Signer name: Ashly Capone MD I attest that I was present for the entire procedure. I reviewed the stored images and agree with the report as written. Signed by: Ashly Capone MD on 06/23/2020 2:04 PM
[2020-06-23] MEDS: CEFEPIME 1GM/NS 0.9% 50 ML 50 ML IV SCH (15:10)
[2020-06-23 15:20] LABS: WHITE BLOOD CELL,CSF 3 cells/uL (0-5)
[2020-06-23] MEDS: VANCOMYCIN 750MG/NS 150ML IVPB 150 ML IV SCH (15:50)
--- NOTE | 2020-06-23 15:50 | NUR ---
NOTIFIED DR. MOONEY OF VANCOMYCIN TROUGH 17.1 ORDER TO NOT GIVE VANCOMYCIN 1600 DOSE
--- NOTE | 2020-06-23 16:33 | NUR ---
PATIENT REFUSING MEDICATIONS. STATING "IM NOT TAKING ANYTHING FROM YOU. YOU'RE NOT MY NURSE. WHY SHOULD I." EXPLAINED MEDICATIONS AND REASONING FOR THEM.
--- NOTE | 2020-06-23 18:25 | NUR ---
Nutrition Intervention Note RD Recommendation(s) for Physician: -Continue renal diet as appropriate and texture modification per speech therapy/MD - Recommend Nepro with meals for added nutrition Plan of Care: RD following, monitoring for tolerance and adequacy, oral supplement recommendation Nutrition reason for involvement: follow up RD Assessment 06/23: Follow up. Pt is currently NPO for a procedure per chart. It is recorded that pt consumed 0% of meals for the past 2 days and RN stated pt is not eating well. Recommend Nepro with meals for added nutrition. A new weight has not been taken since last assessment. Will continue to monitor. (06/18/20) Pt is a 70 year old female admitted with UTI, ESRD, and AMS. Unable to obtain nutrition history from pt since it is noted she is confused and has dementia. % meal intake is not recorded at this time. MD note indicates pt did not eat much yet. Recommend Nepro with meals for added nutrition as appropriate. Will continue to monitor Principal Problems/Diagnoses: UTI, ESRD, AMS PMH: Hypertension, diabetes, Alzheimer disease, CVA unspecified, history of HI, hyperlipidemia, GERD, viral hepatitis C chronic, history of depression, CKD 4-5, on dialysis, repeated outpatient falls. GI: last recorded BM 06/22, flat/non-tender/soft abdomen Skin: intact Labs: 06/23: Na 136, K 2.9, BUN 38, Cr 4.93, Glu 137, Ca 8.0 (06/18) Na 141, K 2.8, BUN 29, Cr 4.47, AST 39 Meds: pepcid, Lipitor, Nephro-ignacio, thiamine, antibiotics, metoprolol, insulin, mannitol Ht: 61 inches Wt: 96 lbs BMI: 18.1 kg/m2 IBW: 105 lbs Malnutrition Evaluation (06/23/20) The patient does not meet criteria for a specified degree of malnutrition at this time. Pts nutrition history is limited. Will re-evaluate at follow-up as appropriate. Energy intake: Pt not meeting needs for 4 days Weight loss: Unable to assess Fat loss: unable to perform NFPE Muscle loss: unable to perform NFPE Supporting Evidence: Fluid accumulation: unable to evaluate Functional Status: unable to evaluate Nutrition Prescription (Diet Order): renal/pureed Estimated Nutritional Needs: 9266-6447 calories/day (30-35 kcal/kg CBW) 52-65 g protein/day (1.2-1.5 g pro/kg CBW) Diet Adequacy: not meeting energy needs, not meeting protein needs Tolerance: unable to assess Diet Education Needs Assessment: Diet education not indicated Nutrition Care Level: moderate Nutrition Diagnosis: Underweight related to predicted h/o inadequate energy intake as evidenced by BMI <18.5 kg/m2. Goal: Patient will meet 75-100% of estimated needs by follow up Progress: goal not met Interventions: -mineral - modified diet, Commercial beverage Monitoring/Evaluation: -Total energy intake, Total protein intake, Modified diet, Liquid supplement, Weight change Signed: Carmela Perez RD, LD
[2020-06-23 18:49] LABS: TOTAL PROTEIN,CSF 111.1 mg/dL (15-40)
--- NOTE | 2020-06-23 20:24 | NUR ---
Subjective: The patient was was more alert. She will follow commands. She was breathing fine. No major complaints. Significant improvement. The patient had LP which was unremarkable. There seems to be no evidence of normal pressure hydrocephalus. Neuro advised to continue Kamran Objective: Patient is alert oriented to person. Follow commands properly. Move 4 extremities. Vital signs blood pressure 135/78, pulse 68, diverticuli borderline, respiration 18 HEENT: No gross abnormalities Neck: Supple no JVD Lungs: Clear to auscultation Heart: Regular rate and rhythm, no murmurs no gallops Abdomen: Soft non tender, no guarding. Extremities: No edema Neurologic: Alert oriented 3, no focal weakness Psychiatrist: Was calm and cooperative. Skin: No rashes Laboratory data CBC disclose hemoglobin 7.9, WBC 4.82, platelet count 99,000 10 profile revealed sodium 136, potassium 2.9, chloride 104, CO2 20, BUN 38, creatinine 4.93 Assessment: 1. Encephalopathy, likely metabolic. 2. Sepsis. 3. UTI. 4. Chronic kidney disease stage 4 to 5. 5. Dementia, Alzheimer's. 6. History of stroke. 7. Chronic hepatitis C. 8. Hypertension. 9. Diabetes mellitus. 10. Coronary artery disease. 11. Previous OK. 12. Status post coronary artery bypass graft surgery. 13. History of depression. 14. Anemia and thrombocytopenia. 15. Abnormal liver function test. PLAN OF CARE: 06/21/20 At this point in time, we are following up blood cultures. So far, the cultures have been negative. Continue intermittent dialysis. Monitor blood pressure and glycemic control. Continue vitamins, antibiotics, and thiamine. Medication will be adjusted for agitation. The patient does have baseline neuro syndrome nonspecific and Neuro was consulted for polypharmacy. We had to be careful with not overdosing patient. The patient's list of medications noted. As far as what the microbiology is concerned, blood cultures so far are negative. As far as what the current medication is concerned, presently on vancomycin, cefepime, hydralazine, Nepro-James, thiamine, Ranexa, metoprolol tartrate, Lasix, famotidine, Plavix, Cogentin, atorvastatin, insulin lispro, Seroquel, Geodon, albumin, mannitol, complete list of medications noted. The patient is being followed by Renal as well, and has been on hemodialysis. 06/22/2020 Dr. Mckinley follow-up the patient for me. Discussion was done with neuro pertaining below Neuro consult due to polypharmacy, baseline neuro syndrome NOS, and to avoid overdosages Transfer to higher level of care. See IM quick note from today, see neuro notes, see radiology note. No cisternogram feasible here and no deliver of isotope expected due to inclement weather. (I could not reach the family at the listed number.) MBS today PT/OT continue, escalate as she improvesv 06/23/2020 The patient has been more alert. Neurology noted. PT OT evaluation. The patient has had a previous stroke while she was a memory loss is at least per records did have a subacute stroke. She was discharged from dialysis on May 15, 2020. Will discuss with case management regarding patient's disposition.
[2020-06-23] MEDS: QUETIAPINE FUMARATE 25 MG TAB PO SCH (21:30)
[2020-06-23] MEDS: FAMOTIDINE 20 MG TAB PO SCH (21:30)
[2020-06-23] MEDS: ATORVASTATIN 20 MG TAB PO SCH (21:30)
--- NOTE | 2020-06-23 21:30 | NUR ---
PATIENT IS RESTING IN BED COMFORTABLY, NO SIGNS OF DISTRESS NOTED. PATIENT IS COMPLIANT WITH TAKING MEDICATION AND VOICES NO PAIN AT THIS TIME. PATIENT HAS BEEN REPOSITIONED FROM BACK TO RIGHT SIDE. BED IS IN LOW POSITION, BOTH SIDE RAILS ARE UP, BED ALARM IS ON, CALL LIGHT IS WITHIN EASY REACH, WILL CONTINUE TO MONITOR.
--- NOTE | 2020-06-23 21:32 | Progress Note ---
DATE: 06/23/2020 The patient is for followup. She is awake today and not very cooperative. However, no seizures reported today. She had an LP, which is unremarkable. The high protein is nonspecific, but there is no evidence of severe infection. There was barely any opening pressure on the CSF. When the LP was done, no improvements or changes are noted post LP. Hence, the picture is less likely to be compatible with normal pressure hydrocephalus. We will monitor her neurologic status over the next few days. At this time, we will continue with Keppra and continue with physical, occupational, and speech therapy. The patient is to stay on antiplatelets as well as high dose statins for now. Cecilia Kelley MD AM/GAB /[id number]
[2020-06-24] VITALS (7 sets, daily range): BP systolic 98–163; BP diastolic 59–94
[2020-06-24] MEDS: DEXTROSE 5%/0.45% SOD CHL 1,000 ML IV SCH (02:45)
[2020-06-24] MEDS: LEVETIRACETAM 500MG/5ML VIAL 500 MG in SODIUM CHLORIDE 0.9% 100 ML 100 ML IV SCH ×2 (06:17→17:52)
[2020-06-24] MEDS: INSULIN LISPRO 100 UNIT/1 ML 3ML VIAL SQ SCH ×4 (07:30→21:00)
[2020-06-24] MEDS: RANOLAZINE 500 MG TABSR PO SCH ×2 (08:23→17:26)
[2020-06-24] MEDS: CLOPIDOGREL BISULFATE 75 MG TAB PO SCH (08:23)
[2020-06-24] MEDS: METOPROLOL TARTRATE 25 MG TAB PO SCH ×2 (08:23→17:26)
[2020-06-24] MEDS: FOLIC ACID/CYANOCOB/PYRIDOXINE TAB PO SCH (08:23)
[2020-06-24] MEDS: THIAMINE HCL 100 MG TAB PO SCH (08:23)
[2020-06-24] MEDS: BENZTROPINE MESYLATE 1 MG TAB PO SCH ×2 (08:23→17:26)
--- NOTE | 2020-06-24 08:25 | NUR ---
FAXED CLINICALS TO FACILITY PER FAMILY REQUEST TO START PROCESS FOR INSURANCE AUTH TO RETURN TO [facility] TIMUR ROJASNA [phone], EDUCATED ABOUT IMM AND HE STATES UNDERSTANDING AND DOES NOT WANT TO APPEAL DISCHARGE.
[2020-06-24 10:21] LABS: ANION GAP 16.7 mmol/L (8-16); CALCIUM 9.1 mg/dL (8.4-10.2); CREATININE, SERUM 3.86 mg/dL (0.57-1.11); POTASSIUM 3.7 mmol/L (3.5-5.1)
--- NOTE | 2020-06-24 13:50 | Electroencephalogram ---
DATE OF STUDY: 06/21/2020 REQUESTING PHYSICIAN: TECHNIQUE: An 18 channels of 20-minute EEG recording utilizing international 10/20 system done today. EEG data was digitally acquired and analyzed. BACKGROUND ACTIVITY: Background rhythm consists of poorly regulated 8 hertz rhythmic waveforms noted above both posterior quadrants. Intermixed with this was a mild amount of low to medium voltage polymorphic 4-6 hertz waveforms over both hemispheres. ACTIVATION: Unremarkable. Sleep, awake, and drowsy. Stage 1 sleep noted. IMPRESSION: This EEG shows mild degree of cerebral dysfunction that is nonspecific. Cecilia Kelley MD AM/MODL /[id number]
[2020-06-24] MEDS ORDERED: SEROQUEL25 MG PO ×2 (14:06)
[2020-06-24] MEDS ORDERED: KEPPRA500 MG PO (14:06)
[2020-06-24] MEDS ORDERED: NEPHRO-VITE TABL1 EA PO (14:06)
--- NOTE | 2020-06-24 14:58 | NUR ---
Internal Medicine Progress Note Coverage for Dr. Angel Montes. Date: 06/24/20 SUBJECTIVE: walked ivf at 50/hr ate 1/3 of meals d/w neurology, ok for SNF after reasonable LP findings yesterday REVIEW OF SYSTEMS: Cannot get, as she is not conversing reliably PHYSICAL EXAMINATION: VITAL SIGNS: vital signs noted and reviewed per the chart record. GENERAL: NAD, in bed. Alert, attentive. HEENT: Normocephalic, atraumatic. NECK: Supple. Throat midline. LUNGS: Bilateral air entry, few rhonchi. CARDIOVASCULAR: S1, S2. No murmurs, rubs, or gallops. ABDOMEN: Soft, nontender. Minimally full, no jaime obesity. EXTREMITIES: No clubbing, no cyanosis, no edema. INTEGUMENT: No rash. No purpura. LABORATORY DATA: k 3.7 IMPRESSION AND PLAN: 1. toxic metabolic encephalopathy, probably medication component. Possible seizures -- Brain CT without acute changes. Improving. 2. Treat as sepsis. BCX NGTD x 5 days, UCX negative after late collection. 3. Possible urinary tract infection, abnormal urinalysis. 4. Hx CAD, MO, CABG 5. Hypertension. 6. Diabetes. 7. Chronic kidney disease 5 ESRD 8. Gastroesophageal reflux disease. 9. Dementia, reportedly Alzheimer type. 10. Reported history of stroke 11. Hyperlipidemia. 12. Hx chronic hepatitis C. 13. Hx depression. 14. Hx repeated falls in past, not otherwise specified. 15. Mildly abnormal liver function tests. 16. Anemia. 17. Mild thrombocytopenia. 19. bilateral basal ganglia gliosis/injury NOS. previous toxic or metabolic insult possible. can't rule out hypoxic component. Continue empiric antibiotics short course. No definite sepsis confirmed. Continue thiamine, empiric vitamins Renal for intermittent dialysis. Control blood pressure and diabetes. Adjust meds for agitation as needed Neuro consult adjusted polypharmacy, started keppra. follow clinically. Ok for SNF evaluation. CM consult PT/OT continue, escalate as she improves Encourage diet. she eats ~1/4 of meals. Thank you very much. Call for questions.
[2020-06-24] MEDS: FAMOTIDINE 20 MG TAB PO SCH (20:48)
[2020-06-24] MEDS: ATORVASTATIN 20 MG TAB PO SCH (20:48)
[2020-06-24] MEDS: QUETIAPINE FUMARATE 25 MG TAB PO SCH (20:48)
[2020-06-25] VITALS: BP 113/46
[2020-06-25 04:00] VITALS: BP 136/52
[2020-06-25 04:46] LABS: BASOPHILS % 0.2 % (0.0-1.0); EOSINOPHILS # (AUTO) 0.3 (0.0-0.4); EOSINOPHILS % 6.4 % (0.0-6.0); HEMATOCRIT 27.1 % (34.2-44.1); LYMPHOCYTES # (AUTO) 1.1 (1.0-3.2); LYMPHOCYTES % 27.9 % (18.0-39.1); MEAN CORPUSCULAR HEMOGLOBIN 31.6 pg (28-32); MEAN CORPUSCULAR HGB CONC 33.2 g/dL (31-35); MEAN CORPUSCULAR VOLUME 95.1 fL (81-99); MONOCYTES # (AUTO) 0.7 (0.2-0.8); MONOCYTES % 16.3 % (4.4-11.3); NEUTROPHILS % 48.7 % (38.7-80.0); PLATELET COUNT 95 x10e3/uL (140-360); RED BLOOD COUNT 2.85 x10e6/uL (3.6-5.1); RED CELL DISTRIBUTION WIDTH 13.5 % (11.7-14.4)
[2020-06-25 05:07] LABS: ALBUMIN 2.9 g/dL (3.5-5.0); ALBUMIN/GLOBULIN RATIO 0.9 (0.8-2.0); ANION GAP 15.4 mmol/L (8-16); CALCIUM 8.6 mg/dL (8.4-10.2); CREATININE, SERUM 5.08 mg/dL (0.57-1.11); POTASSIUM 3.4 mmol/L (3.5-5.1)
[2020-06-25] MEDS: DEXTROSE 5%/0.45% SOD CHL 1,000 ML IV SCH (06:05)
[2020-06-25] MEDS: LEVETIRACETAM 500MG/5ML VIAL 500 MG in SODIUM CHLORIDE 0.9% 100 ML 100 ML IV SCH ×2 (06:05→17:49)
--- NOTE | 2020-06-25 07:03 | NUR ---
CALLED DR. ALAS'S ANSWERING SERVICE REGARDING POTASSIUM OF 3.4, SPOKE TO TO ANTONIO.
[2020-06-25] MEDS: INSULIN LISPRO 100 UNIT/1 ML 3ML VIAL SQ SCH ×3 (07:30→16:30)
[2020-06-25 07:31] VITALS: BP 124/43
[2020-06-25 08:41] VITALS: BP 124/43
[2020-06-25] MEDS: RANOLAZINE 500 MG TABSR PO SCH ×2 (09:00→17:00)
[2020-06-25] MEDS: METOPROLOL TARTRATE 25 MG TAB PO SCH ×2 (09:00→17:00)
[2020-06-25] MEDS: BENZTROPINE MESYLATE 1 MG TAB PO SCH ×2 (09:00→17:00)
[2020-06-25] MEDS: THIAMINE HCL 100 MG TAB PO SCH (09:00)
[2020-06-25] MEDS: FOLIC ACID/CYANOCOB/PYRIDOXINE TAB PO SCH (09:00)
[2020-06-25] MEDS: CLOPIDOGREL BISULFATE 75 MG TAB PO SCH (09:00)
[2020-06-25] MEDS: CEFEPIME 1GM/NS 0.9% 50 ML 50 ML IV SCH (15:00)
--- NOTE | 2020-06-25 15:35 | NUR ---
YADIRA SPOKE WITH MAGDIEL AT [facility] PT APPROVED TO DC TO [facility] RESORT ROOM [address] WHITING NURSE LELIA NOTIFIED TO CALL REPORT
--- NOTE | 2020-06-25 15:37 | NUR ---
ST Note: Attempted to see pt to f/u re: diet tolerance. Per staff, pt sleeping all day. PCT reported she was unable to get pt alert enough to eat breakfast or lunch. Will f/u later time permitting.
--- NOTE | 2020-06-25 15:39 | NUR ---
NOTIFIED PT'S SON JULIA SAENZ PT WILL BE GING BACK TO [facility] TODAY [phone]
[2020-06-25 16:00] VITALS: BP 142/65
[2020-06-25] MEDS: VANCOMYCIN 750MG/NS 150ML IVPB 150 ML IV SCH (16:00)
--- NOTE | 2020-06-25 20:21 | Progress Note ---
DATE: 06/25/2020 SUBJECTIVE: Events noted. The patient is being followed by Renal and being followed by Neurology and Speech Therapy is seeing the patient. The patient was unable to speech therapies. The patient was unable to get up. PHYSICAL EXAMINATION: VITAL SIGNS: Noted. Blood pressure 142/65, respirations 18, pulse 92, temperature 97.5. GENERAL: The patient has been in no acute distress. HEENT: Head is atraumatic. NECK: Supple. LUNGS: Good air entry. HEART: Regular rate and rhythm. ABDOMEN: Soft. EXTREMITIES: No edema. NEUROLOGIC: Nonfocal. ASSESSMENT: 1. Altered mental status secondary to toxic metabolic disorder secondary to medication effect. 2. Possible seizure. CT scan without acute changes. 3. The patient being treated for sepsis. Continue antibiotic as advised. Blood cultures so far negative. 4. Urinary tract infection. 5. Coronary artery disease. 6. Hypertension. 7. . 8. Chronic renal failure. 9. . 10. Dementia. 11. Depression. 12. Chronic hepatitis C. 13. Dyslipidemia. 14. History of stroke. PLAN OF CARE: The patient will be placed on p.o. antibiotics. . The patient was placed on Keppra. Continued OT evaluation was requested. MD JOEY Maldonado/GAB /[id number]
--- NOTE | 2020-06-29 10:39 | Diagnostic Imaging Report ---
Modified barium swallow exam with speech pathology service CLINICAL HISTORY: Failed bedside swallow Fluoro Time: 3.5 min. Fluoroscopy images: 11.2 IMPRESSION: Please see the speech pathology service report for details. Barium contrast of multiple consistencies is given to the patient to swallow. Fluoroscopic observation is performed during swallowing. No aspiration is noted. Penetration is noted with thin and nectar thick without progression to aspiration. Penetration didn't clear. Residue was noted with all consistencies. Please see speech pathology report for further details. Signed by: Rico Stokes MD on 06/29/2020 10:36 AM
== END 2020-06-25 18:50 | DRG 871 ==
LOC: ER 12:16 → ERHOLD 14:20 → MED/SURG 17:05 → OBSVTOIN 06-19 11:48 → MED/SURG2 06-20 14:05 → MED/SURG 06-22 18:29
PROVIDERS: ADMIT Internal Medicine; ATTEND Internal Medicine
PROC: 5A1D70Z Performance of Urinary Filtration, Intermittent, Less than 6 Hours Per Day (ICD-10-PCS; 2020-06-18)
PROC: 5A1D70Z Performance of Urinary Filtration, Intermittent, Less than 6 Hours Per Day (ICD-10-PCS; 2020-06-21)
PROC: 009U3ZX Drainage of Spinal Canal, Percutaneous Approach, Diagnostic (ICD-10-PCS; principal; 2020-06-23)
PROC: B01B1ZZ Fluoroscopy of Spinal Cord using Low Osmolar Contrast (ICD-10-PCS; 2020-06-23)
PROC: 5A1D70Z Performance of Urinary Filtration, Intermittent, Less than 6 Hours Per Day (ICD-10-PCS; 2020-06-23)
PROC: 5A1D70Z Performance of Urinary Filtration, Intermittent, Less than 6 Hours Per Day (ICD-10-PCS; 2020-06-25)
DX: A41.9 Sepsis, unspecified organism (principal); G92 Toxic encephalopathy; N18.6 End stage renal disease; I12.0 Hypertensive chronic kidney disease with stage 5 chronic kidney disease or end stage renal disease; N39.0 Urinary tract infection, site not specified; F02.81 Dementia in other diseases classified elsewhere, unspecified severity, with behavioral disturbance; Z68.1 Body mass index [BMI] 19.9 or less, adult; E44.0 Moderate protein-calorie malnutrition; E11.22 Type 2 diabetes mellitus with diabetic chronic kidney disease; Z99.2 Dependence on renal dialysis; K21.9 Gastro-esophageal reflux disease without esophagitis; G20 Parkinson's disease; Z95.1 Presence of aortocoronary bypass graft; N28.9 Disorder of kidney and ureter, unspecified; I25.2 Old myocardial infarction; E78.5 Hyperlipidemia, unspecified; B18.2 Chronic viral hepatitis C; G30.9 Alzheimer's disease, unspecified; I25.10 Atherosclerotic heart disease of native coronary artery without angina pectoris; D64.9 Anemia, unspecified; D69.6 Thrombocytopenia, unspecified; E87.6 Hypokalemia; Z91.81 History of falling; R94.5 Abnormal results of liver function studies; R56.9 Unspecified convulsions; Z11.59 Encounter for screening for other viral diseases; Z79.4 Long term (current) use of insulin
CPT/HCPCS: 36415; 62328; 70450; 70551; 71045; 74018; 74230; 74470; 80048; 80053; 80202; 81001; 82140; 82306; 82607; 82746; 82945; 82948; 83605; 83615; 84157; 85025; 85610; 85730; 86592; 86705; 86706; 86789; 87040; 87086; 87340; 87476; 89051; 90962; 93005; 95812; 96361; 97139; 99285; G0378; J0360; J0692; J2001; J2060; J3370; J3411; J3480; J3486; J7030; J7050; U0002

== ENCOUNTER 2020-08-11 13:50 | Emergency (ER) | payer MEDICARE, OTHER ==
[~2020-08-11] VITALS: Ht 149.9 cm; Wt 45.4 kg
[~2020-08-11 13:50] MED LIST: ADMELOG SO100 UNIT/1; AMANTADINE100 MG PO; AUGMENTIN 500-1 EACH PO; AURYXIA210 MG PO; BENZTROPINE MESY1 MG PO; CLOPIDOGREL75 MG PO; FAMOTIDINE20 MG PO; FUROSEMIDE40 MG PO; KEPPRA500 MG PO; LIPITOR20 MG PO; METOPROLOL TART25 MG PO; NEPHRO-VITE TABL1 EA PO; RANEXA1000 MG PO; SEROQUEL25 MG PO
[2020-08-11] MEDS ORDERED: LIDOCAINE HCL 1% LOCAL INJ 20 ML VIAL INJ STA (13:53)
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
--- NOTE | 2020-08-11 14:12 | NUR ---
report given to [facility] Nurse
--- NOTE | 2020-08-11 14:13 | NUR ---
sutures placed by Dr. Prescott to the bottom of the left foot, 4-0 Prolene X 4 used
--- NOTE | 2020-08-11 14:15 | NUR ---
[facility] called and requested for transport
--- OUTSIDE RECORDS SUMMARY | 2020-08-11 14:21 | XMS REPORT | Continuity of Care Document ---
Author Author [email or web address] MARY Perry [employer] Address Unknown Phone Unavailable Care Team Providers Care Lock Installer Name Role Phone [employer] Unavailable Un available Problems Problem Status Onset Date Classification Date Reported Comments Source AMS Active 0 05/31/2020 [facility] STROKE LIKE SYMPTOMS Active 05/31/2020 [facility] ALTERED MENTAL STATUS Active 05/31/2020 [facility] BACK PAIN Active 05/23/2020 [facility] BRAIN TIA, ENCEPHALOPATHY Acti ve 05/23/2020 [facility] R06.02 SHORTNESS OF BREATH Act zaria 01/15/2020 [facility] Headache 01/01/2020 [facility] DIZZINESS Active 12/30/2019 [facility] End stage renal disease 12/11/2019 12/13/2019 [facility] Diarrhea, unspecified 12/11/2019 12/13/2019 [facility] Pneumonia, unspecified organism 12/11/2019 12/13/2019 [facility] Urinary tract infection, site not specified 12/11/2019 12/13/2019 [facility] Generalized abdominal pain 12/11/2019 12/13/2019 [facility] ABDOMINAL PAIN Active 12/11/2019 [facility] HEADACHE Active 12/05/2019 [facility] UTI, SEVERE SEPSIS Active 11/21/2019 [facility] Unspecified fall, initial encounter 10/27/2019 10/29/2019 [facility] Unspecified fracture of sacrum, initial encounter for closed fracture 10/27/2019 10/29/2019 [facility] Wedge compression fracture of first lumb ar vertebra, initial encounter for closed fracture 10/27/2019 10/29/2019 [facility] FALL Active 10/26/2019 [facility] Anxiety disorder, unspecified 09/03/2019 09/05/2019 [facility] ANXIETY Active 09/03/2019 [facility] Pain in unspecified hip 07/13/2019 07/15/2019 [facility] FALL INJURY/ SOB Active 07/13/2019 [facility] B18.2 CHRONIC VIRAL HEPATITIS C, Z68.23 Active 06/20/2019 [facility] SOB Active 0 04/03/2019 [facility] AMS, UNSPECIFIED Active 04/03/2019 [facility] CELLULITIS, HYPERKALEMIA Active 02/28/2019 [facility] WEAKNESS Active 02/12/2019 [facility] Sepsis, unspecified organism 12/07/2018 05/26/2019 [facility] BACTERIAL PNEUMONIA Active 11/01/2018 [facility] Unspecified injury of head, initial encounter 10/02/2018 04/21/2019 [facility] Contusion of other part of head, initial encounter 10/02/2018 04/21/2019 [facility] Orthostatic hypotension 08/15/2018 02/23/2019 [facility] WEAK/DIZZY Active 07/28/2018 [facility] FALL, SYNCOPE Active 07/28/2018 [facility] Z12.31 - ENCNTR SCREEN MAMMOGRAM FOR MA Active 07/16/2018 [facility] [place] BILATERAL PLEURAL EFFUSION, CKD (CHRONIC Active 04/28/2018 [facility] I25.10 Active 04/12/2018 [facility] CAD Active 0 04/02/2018 [facility] [place] CHEST PAIN Active 02/28/2018 [facility] DEBILITY Active 02/28/2018 [facility] HYPERKALEMIA Active 02/14/2018 [facility] DIZZY Active 02/14/2018 [facility] CP Active [facility] ACUTE CHF Active 02/08/2018 [facility] Chest pain, unspecified 01/24/2017 02/03/2017 [facility] Hyperglycemia, unspecified 01/24/2017 02/03/2017 [facility] Shortness of breath 01/24/2017 02/03/2017 [facility] HIGH GLUCOSE Active 01/24/2017 [facility] CP IN ADULT, HYPERGLYCEMIA, SOB Active 01/24/2017 [facility] ACUTE KIDNEY INJURY, DEHYDRATION, FEVER Active 01/15/2017 [facility] SYNCOPE Active 02/17/2016 [facility] PANCREATITIS Active 02/17/2016 [facility] Discharge Diagnosis: Back pain 07/19/2014 07/21/2014 [facility] Discharge Diagnosis: Muscle spasm 07/19/2014 07/21/2014 [facility] Discharge Diagnosis: Depression 07/19/2014 07/21/2014 [facility] Discharge Diagnosis: Diabetes mellitus 07/19/2014 07/21/2014 [facility] POSS HYPOGLYCEMIA Active 07/18/2014 [facility] 070.44 CHRONIC HEPATITIS C Act zaria 04/23/2014 [facility] 571.5 CARDIAC CIRRHOSIS Active 11/19/2013 [facility] Alzheimer's disease (disorder) Active Problem 09/2020 [facility] [place] [place] Calculus in biliary tract (disorder) Resolved Problem 09/2020 [facility], [facility] [place],[facility] Coronary arteriosclerosis (disorder) Active Problem 09/2020 [facility], [place] Diabetes mellitus (disorder) R esolved Problem 09/2020 [facility], [facility] [place],[facility] Escherichia coli (organism) Ac tive Problem 09/2020 Problem added by Discern Expert. [facility] Viral hepatitis C (disorder) A ctive Problem 09/2020 [facility], [facility] [place],[facility] Hypertensive disorder, systemic arterial (disorder) Active Problem 06/09/2020 [facility] Hypervolemia (disorder) Active Problem 06/09/2020 [facility], [place] Kidney disease (disorder) Acti ve Problem 09/2020 [facility], [place] Myocardial infarction (disorder) Resolved Problem 09/2020 [facility], [facility] [place],[facility] Occult blood in stools (disorder) Active Problem 09/2020 [facility], [place] Cerebrovascular accident (disorder) Resolved Problem 09/2020 [facility], [facility] [place],[facility] Other malaise 04/04/2018 [facility] Acute tubular necrosis (disorder) Resolved Problem 09/2020 [facility], [place] Chronic kidney disease stage 4 (disorder) Active Problem 02/23/2019 [facility] Chronic diastolic (congestive) heart failure 02/23/2019 [facility] Hypertensive heart and chronic kidney di sease with heart failure and with stage 5 chronic kidney disease, or end stage renal disease 02/23/2019 [facility] Unspecified viral hepatitis C without hepatic coma 05/26/2019 [facility] Unspecified Escherichia coli [E. coli] a s the cause of diseases classified elsewhere 02/23/2019 [facility] Anemia in chronic kidney disease 02/23/2019 [facility] Hypokalemia 02/23/2019 [facility] Hyperlipidemia, unspecified 04/21/2019 [facility] Type 2 diabetes mellitus with diabetic c hronic kidney disease 05/26/2019 [facility] Dementia in other diseases classified el sewhere without behavioral disturbance 05/26/2019 [facility] Alzheimer's disease, unspecified 05/26/2019 [facility] Atherosclerotic heart disease of [place] coronary artery without angina pectoris 05/26/2019 [facility] Unspecified cirrhosis of liver 02/23/2019 [facility] History of falling 02/23/2019 [facility] Dependence on renal dialysis 05/26/2019 [facility] 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 04/21/2019 [facility] Presence of aortocoronary bypass graft 05/26/2019 [facility] terminal operations supervisor (current) use of antithromboti cs/antiplatelets 04/21/2019 [facility] Personal history of transient ischemic a ttack (TIA), and cerebral infarction without residual deficits 05/26/2019 [facility] Cervicalgia 04/21/2019 [facility] Fall (on) (from) unspecified stairs and steps, initial encounter 05/26/2019 [facility] Hypertensive chronic kidney disease with stage 5 chronic kidney disease or end stage renal disease 05/26/2019 [facility] Old myocardial infarction 05/26/2019 [facility] FPC (current) use of aspirin 04/21/2019 [facility] 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 04/21/2019 [facility] Acquired absence of both cervix and uterus 05/26/2019 [facility] Acquired absence of other specified part s of digestive tract 04/21/2019 [facility] Pleural effusion, not elsewhere classified 05/08/2018 [facility] Unspecified bacterial pneumonia 05/26/2019 [facility] Anemia in other chronic diseases classified elsewhere 05/26/2019 [facility] ACUTE PANCREATITIS, UNSPECIFIED Active [facility] ACUTE KIDNEY FAILURE, UNSPECIFIED Active [facility] CHEST PAIN, UNSPECIFIED Active [facility] HYPERGLYCEMIA, UNSPECIFIED Act zaria [facility] HEART FAILURE, UNSPECIFIED Act zaria [facility] HYPERKALEMIA Active [facility] OTHER MALAISE Active [facility] PLEURAL EFFUSION, NOT ELSEWHERE CLASSIFI Active [facility] CHRONIC KIDNEY DISEASE, UNSPECIFIED Active [facility] TYPE 2 DIABETES MELLITUS WITH HYPOGLYCEM Active [facility] UNSPECIFIED FALL, INITIAL ENCOUNTER Active [facility] SYNCOPE AND COLLAPSE Active [facility] UNSPECIFIED BACTERIAL PNEUMONIA Active [facility] CELLULITIS, UNSPECIFIED Active [facility] CHRONIC VIRAL HEPATITIS C Acti ve [facility] BODY MASS INDEX (BMI) 23.0-23.9, ADULT Active [facility] URINARY TRACT INFECTION, SITE NOT SPECIF Active [facility] TRANSIENT CEREBRAL ISCHEMIC ATTACK, UNSPECIFIED Active [facility] TRANSIENT CEREBRAL ISCHEMIC ATTACK, UNSP Active [facility] ENCEPHALOPATHY, UNSPECIFIED Ac tive [facility] ALTERED MENTAL STATUS, UNSPECIFIED Active [facility] Medications Medication Details Route Status Patient Instructions Ordering Provider Order Date Source atorvastatin 20 mg oral tablet 20 mg = 1 tab, PO, Bedtime, # 30 tab, 1 Refill(s), Pharmacy: [facility] #[id number], 157.48, cm, 05/31/20 7:16:00 CDT, Height, 50, kg, 05/31/20 7:16:00 CDT, Weight Active 06/07/2020 [facility] metoprolol tartrate 25 mg oral tablet 12.5 mg = 0.5 tab, PO, BID, # 30 tab, 1 Refill(s), Pharmacy: [facility] #[id number], 157.48, cm, 05/31/20 7:16:00 CDT, Height, 50, kg, 05/31/20 7:16:00 CDT, Weight Active 06/07/2020 [facility] Insulin Lispro KwikPen 100 units/mL injectable solutio n See Instructions, Give 3 unit SUB-Q TID-Before Meals 15 minutes before or immediately after a meal if blood glucose is greater than 200, # 3 mL, 0 Refill(s), Pharmacy: [facility] #[id number], 157.48, cm, 05/31/20 7:16:00 CDT, Height, 50, kg, 08... Active 06/07/2020 [facility] 12 HR ranolazine 500 MG Extended Release Tablet 500 mg = 1 tab, PO, Daily, # 30 tab, 0 Refill(s), [facility] #[id number], 157.48, cm, 05/31/20 7:16:00 CDT, Height, 50, kg, 05/31/20 7:16:00 CDT, Weight Active 06/07/2020 [facility] Famotidine 20 MG Oral Tablet 2 0 mg = 1 tab, PO, BID, # 60 tab, 1 Refill(s), Pharmacy: [facility] #[id number], 157.48, cm, 05/31/20 7:16:00 CDT, Height, 50, kg, 05/31/20 7:16:00 CDT, Weight Active 06/07/2020 [facility] metoprolol tartrate Notes: (Sa me as: Lopressor) No Longer Active 06/05/2020 [facility] Labetalol 20 mg, Route: IVP, D rug form: INJ, ONCE, Dosing Weight 50, kg, Priority: STAT, Start date: 06/04/20 14:37:00 CDT, Stop date: 06/04/20 14:37:00 CDT Inactive 06/04/2020 [facility] Nitroglycerin 0.4 MG Sublingual Tablet 0.4 mg, 0, Route: SL, Drug form: TAB, ONCE, Dosing Weight 50, kg, PRN Chest Pain, Start date: 06/04/20 14:37:00 CDT Inactive 06/04/2020 [facility] Lovenox Notes: (Same as: Loven ox) No Longer Active 06/03/2020 [facility] Ativan Notes: (Same as: Ativan) Inactive 06/02/2020 [facility] Jus Notes: Reconstitute wit h 1.2 ml of sterile water. Final concentration = 20 mg/1ml. Maximum 40 mg/24 hours (Same As: Jus). Hazardous Drug Group 3:Reproductive risk Hazardous Drug -- Refer to safe handling procedure PPE Matrix MEDICATION WASTE Product Size: 20 mg Product Wasted: ___ mg No Longer Active 06/01/2020 [facility] atorvastatin Notes: (Same as: Lipitor) No Longer Active 06/01/2020 [facility] Dextrose 50% Syringe (D50W) 12 .5 gm, 25 mL, Route: IVP, Drug Form: INJ, Dosing Weight 50, kg, PRN, PRN Blood Glucose Results, Start date: 05/31/20 14:48:00 CDT, Duration: 30 day, Stop date: 06/30/20 14:47:00 CDT, 0 No Longer Active 05/31/2020 [facility] Glucagon 1 mg, Route: IM, Drug form: PDR/INJ, PRN, Dosing Weight 50, kg, PRN Blood Glucose Results, Start date: 05/31/20 14:48:00 CDT, Duration: 30 day, Stop date: 06/30/20 14:47:00 CDT, 0 No Longer Active 05/31/2020 [facility] Insulin Lispro Notes: (Same as : Humalog) Roll in palms of hands gently; Do not shake vigorously. WASTE: F/P - Black; E - Municipal Trash Bin Stable for 28 days at room temperature. Expires in days from Date No Longer Active 05/31/2020 [facility] clopidogrel Notes: (Same As: P lavix) No Longer Active 05/31/2020 [facility] Dextrose 50% Syringe (D50W) 12 .5 gm, 25 mL, Route: IVP, Drug Form: INJ, Dosing Weight 50, kg, PRN, PRN Blood Glucose Results, Start date: 05/31/20 11:11:00 CDT, Duration: 30 day, Stop date: 06/30/20 11:10:00 CDT, 0 Inactive 05/31/2020 [facility] Glucagon 1 mg, Route: IM, Drug form: PDR/INJ, PRN, Dosing Weight 50, kg, PRN Blood Glucose Results, Start date: 05/31/20 11:11:00 CDT, Duration: 30 day, Stop date: 06/30/20 11:10:00 CDT, 0 Inactive 05/31/2020 [facility] Ondansetron Notes: (Same as: Tino robbins) MEDICATION WASTE Product Size: 4 mg Product Wasted: ___ mg No Longer Active 05/31/2020 [facility] Acetaminophen Notes: Do not ex ceed 4 gm/day. (Same as: Tylenol) No Longer Active 05/31/2020 [facility] Saline Flush 0.9% Notes: (Same as: BD Posiflush) No Longer Active 05/31/2020 [facility] Saline Flush 0.9% Notes: (Same as: BD Posiflush) Active 05/24/2020 [facility] Aspirin Notes: Take with food. Inactive 05/24/2020 [facility] Zofran ODT 4 mg, Route: PO, Dr ug form: TABDIS, ONCE, Dosing Weight 53.636, kg, Priority: STAT, Start date: 05/23/20 15:18:00 CDT, Stop date: 05/23/20 15:18:00 CDT Inactive 05/23/2020 [facility] Tylenol 975 mg, Route: PO, Patel g form: TAB, ONCE, Dosing Weight 53.636, kg, Priority: STAT, Start date: 05/23/20 15:17:00 CDT, Stop date: 05/23/20 15:17:00 CDT Inactive 05/23/2020 [facility] Compazine Notes: (Same as: Com pazine) Inactive 12/30/2019 [facility] Benadryl 12.5 mg, Route: IVP, ONCE, Dosing Weight 58.182, kg, Priority: STAT, Start date: 12/30/19 12:51:00 PERIANESTHESIA RN, Stop date: 12/30/19 12:51:00 PERIANESTHESIA RN Inactive 12/30/2019 [facility] Dexamethasone 10 mg, Route: IV P, ONCE, Dosing Weight 58.182, kg, Priority: STAT, Start date: 12/30/19 12:51:00 PERIANESTHESIA RN, Stop date: 12/30/19 12:51:00 PERIANESTHESIA RN Inactive 12/30/2019 [facility] Saline Flush 0.9% Notes: (Same as: BD Posiflush) Inactive 12/30/2019 [facility] Cephalexin 500 MG Oral Capsule [Keflex] 500 mg = 1 cap, PO, Daily, Take in the evening after dialysis at the same time every day., X 7 day, # 7 cap, 0 Refill(s) Active 12/12/2019 [facility] fluconazole 100 mg oral tablet 100 mg = 1 tab, PO, Daily, X 10 day, # 10 tab, 0 Refill(s), [id number] Active 11/26/2019 [facility] propranolol 10 mg oral tablet 10 mg = 1 tab, PO, Q12H, # 60 tab, 0 Refill(s), Pharmacy: [facility] #[id number] Active 11/26/2019 [facility] pantoprazole 40 MG Enteric Coated Tablet [Protonix] 40 mg = 1 tab, PO, BID, # 60 tab, 0 Refill(s), [facility][id number] Active 11/26/2019 [facility] Cephalexin 250 MG Oral Capsule [Keflex] 250 mg = 1 cap, PO, BID, X 10 day, # 20 cap, 0 Refill(s), Pharmacy: [facility] #[id number] Active 11/26/2019 [facility] Rocephin + sterile water 10 mL Notes: (Same As: Rocephin). Use with 100 mL NS and infuse over 30 min MEDICATION WASTE Product Size: 1000 mg Product Wasted: ___ mg Inactive 11/26/2019 [facility] Propranolol Notes: Give with f ood. (Same as: Inderal) No Longer Active 11/26/2019 [facility] Diflucan Notes: (Same as: Difl ucan) Do not refrigerate No Longer Active 11/25/2019 [facility] Sodium Chloride 0.9% IV 1,000 mL 1,000 mL, Rate: 75 ml/hr, Infuse over: 13.3 hr, Route: IV, Dosing Weight 53.5 kg, Total Volume: 1,000, Start date: 11/25/19 10:58:00 PERIANESTHESIA RN, Duration: 1 day, Stop date: 11/26/19 10:57:00 PERIANESTHESIA RN, 1.52, m2, 0 Inactive 11/25/2019 [facility] Insulin Lispro Notes: (Same as : Humalog) Roll in palms of hands gently; Do not shake vigorously. WASTE: F/P - Black; E - Municipal Trash Bin Stable for 28 days at room temperature. Expires in days from Date No Longer Active 11/25/2019 [facility] Keflex Notes: Take on empty st omach. (Same As: Keflex) No Longer Active 11/24/2019 [facility] Norvasc Notes: (Same as: Norva sc) Inactive 11/24/2019 [facility] Protonix Notes: Tablet should not be chewed or crushed. (Same as: Protonix) No Longer Active 11/24/2019 [facility] Al hydroxide/Mg hydroxide/simethicone Notes: (aluminum hydroxide-magnesium hyd-simethicone [id number]/5ml 30 ml ud MERRY) Inactive 11/23/2019 [facility] Xylocaine Viscous 2% mucous membrane solution Notes: (Same as: Xylocaine) Inactive 11/23/2019 [facility] Cephalexin 500 MG Oral Capsule [Keflex] 500 mg = 1 cap, PO, BID, X 7 day, # 14 cap, 0 Refill(s), Pharmacy: [facility] #[id number] No Longer Active 11/23/2019 [facility] Protonix Notes: Tablet should not be chewed or crushed. (Same as: Protonix) Inactive 11/23/2019 [facility] GI cocktail (aluminum hydroxide/magnesiu m hydroxide/lidocaine/simethicone) 45 ml, Route: PO, Drug Form: SUSP, Dosin g Weight 53.5, kg, ONCE, Routine, Start date: 11/23/19 12:28:00 PERIANESTHESIA RN, Stop date: 11/23/19 12:28:00 PERIANESTHESIA RN Inactive 11/23/2019 [facility] Imodium A-D Notes: (Same as: I modium) MAX adult dose is 8 caps/day Inactive 11/23/2019 [facility] atorvastatin Notes: (Same as: Lipitor) No Longer Active 11/23/2019 [facility] Famotidine 20 MG Oral Tablet N otes: (Same as: Pepcid) No Longer Active 11/23/2019 [facility] gabapentin 100 MG Oral Capsule Notes: (Same as: Neurontin) No Longer Active 11/23/2019 [facility] Omnipaque 300 injectable solution Notes: (Same as:Omnipaque 300). WASTE: F/P - Black; E - [employer] Trash Bin For oral use only No Longer Active 11/22/2019 [facility] Amlodipine 10 mg, 1 tab, Route : PO, Drug form: TAB, Daily, Dosing Weight 53.5, kg, Start date: 11/22/19 9:00:00 PERIANESTHESIA RN, Duration: 30 day, Stop date: 12/21/19 9:00:00 PERIANESTHESIA RN Inactive 11/22/2019 [facility] clopidogrel 75 mg, 1 tab, Rout e: PO, Drug form: TAB, BID, Dosing Weight 53.5, kg, Start date: 11/22/19 9:00:00 PERIANESTHESIA RN, Duration: 30 day, Stop date: 12/21/19 17:00:00 PERIANESTHESIA RN Inactive 11/22/2019 [facility] metoprolol tartrate 12.5 mg, R oute: PO, Drug form: TAB, Q12H, Dosing Weight 53.5, kg, Start date: 11/22/19 9:00:00 PERIANESTHESIA RN, Duration: 30 day, Stop date: 12/21/19 21:00:00 PERIANESTHESIA RN Inactive 11/22/2019 [facility] Aspirin 81 MG Enteric Coated Tablet Notes: Do not crush or chew. (Same As: Ecotrin) No Longer Active 11/22/2019 [facility] heparin sodium, porcine 2500 UNT/ML Injectable Solutio n Notes: porcine heparin No Longer Active 11/22/2019 [facility] heparin sodium, porcine 2500 UNT/ML Injectable Solutio n Notes: porcine heparin Inactiv e 11/21/2019 [facility] clopidogrel 75 mg oral tablet 75 mg = 1 tab, PO, BID, # 90 tab, 3 Refill(s) No Longer Active 11/21/2019 [facility] furosemide 80 mg oral tablet 8 0 mg = 1 tab, PO, BID, # 90 tab, 3 Refill(s) Active 11/21/2019 [facility] Insulin Glargine 100 UNT/ML Injectable Solution 10 unit, SUB-Q, Bedtime, # 10 mL, 0 Refill(s) Active 11/21/2019 [facility] Ceftriaxone Notes: (Same As: Sabi altman). Use with 100 mL NS and infuse over 30 min MEDICATION WASTE Product Size: 1000 mg Product Wasted: ___ mg No Longer Active 11/21/2019 [facility] Dextrose 50% Syringe (D50W) 12 .5 gm, 25 mL, Route: IVP, Drug Form: INJ, Dosing Weight 59.091, kg, PRN, PRN Blood Glucose Results, Start date: 11/21/19 14:48:00 PERIANESTHESIA RN, Duration: 30 day, Stop date: 12/21/19 14:47:00 PERIANESTHESIA RN, 0 No Longer Active 11/21/2019 [facility] Glucagon 1 mg, Route: IM, Drug form: PDR/INJ, PRN, Dosing Weight 59.091, kg, PRN Blood Glucose Results, Start date: 11/21/19 14:48:00 PERIANESTHESIA RN, Duration: 30 day, Stop date: 12/21/19 14:47:00 PERIANESTHESIA RN, 0 No Longer Active 11/21/2019 [facility] Insulin Lispro Notes: (Same as : Humalog) Roll in palms of hands gently; Do not shake vigorously. WASTE: F/P - Black; E - Municipal Trash Bin Stable for 28 days at room temperature. Expires in days from Date No Longer Active 11/21/2019 [facility] Lovenox 40 mg, Route: SUB-Q, D rug form: INJ, [id number], Dosing Weight 59.091, kg, Start date: 11/21/19 13:00:00 PERIANESTHESIA RN, Duration: 30 day, Stop date: 12/20/19 13:00:00 PERIANESTHESIA RN Inactive 11/21/2019 [facility] Dextrose 50% Syringe (D50W) 12 .5 gm, 25 mL, Route: IVP, Drug Form: INJ, Dosing Weight 59.091, kg, PRN, PRN Blood Glucose Results, Start date: 11/21/19 12:44:00 PERIANESTHESIA RN, Duration: 30 day, Stop date: 12/21/19 12:43:00 PERIANESTHESIA RN, 0 No Longer Active 11/21/2019 [facility] Glucagon 1 mg, Route: IM, Drug form: PDR/INJ, PRN, Dosing Weight 59.091, kg, PRN Blood Glucose Results, Start date: 11/21/19 12:44:00 PERIANESTHESIA RN, Duration: 30 day, Stop date: 12/21/19 12:43:00 PERIANESTHESIA RN, 0 No Longer Active 11/21/2019 [facility] Ondansetron Notes: (Same as: Tino robbins) MEDICATION WASTE Product Size: 4 mg Product Wasted: ___ mg No Longer Active 11/21/2019 [facility] Acetaminophen Notes: Do not ex ceed 4 gm/day. (Same as: Tylenol) No Longer Active 11/21/2019 [facility] Tylenol Notes: Max acetaminoph en = 4000 mg/day (4 gm/day). (Same as: Tylenol) Inactive 11/21/2019 [facility] cefepime 2 gm, Route: IVPB, ON CE, Dosing Weight 59.091, kg, Priority: STAT, Start date: 11/21/19 10:07:00 PERIANESTHESIA RN, Stop date: 11/21/19 10:07:00 PERIANESTHESIA RN, ABX Indication: ED - Suspected Sepsis Inactive 11/21/2019 [facility] Tylenol 975 mg, Route: WA, Patel g form: SUPP, ONCE, Dosing Weight 59.091, kg, Priority: STAT, Start date: 11/21/19 10:06:00 PERIANESTHESIA RN, Stop date: 11/21/19 10:06:00 PERIANESTHESIA RN Inactive 11/21/2019 [facility] Acetaminophen 300 MG / Codeine Phosphate 30 MG Oral Tablet [Tylenol with Codeine #3] 1 tab, PO, Q6H, PRN Pain, X 7 day, # 28 tab, 0 Refill(s) Active 10/27/2019 [facility] Acetaminophen 325 MG / Hydrocodone Norma trate 5 MG Oral Tablet 1 tab, Route: PO, Drug Form: TAB, Dosing Weight 57.727, kg, ONCE, STAT, Start date: 10/27/19 0:46:00 PERIANESTHESIA RN, Stop date: 10/27/19 0:46:00 PERIANESTHESIA RN Inactive 10/27/2019 [facility] Acetaminophen 325 MG / Hydrocodone Norma trate 5 MG Oral Tablet 1 tab, Route: PO, Drug Form: TAB, Dosing Weight 57.727, kg, ONCE, STAT, Start date: 10/26/19 23:13:00 PERIANESTHESIA RN, Stop date: 10/26/19 23:13:00 PERIANESTHESIA RN Inactive 10/27/2019 [facility] tizanidine Notes: (Same As: Za naflex) No Longer Active 10/27/2019 [facility] Trazodone Notes: (Same As: Edison yrel) Inactive 09/03/2019 [facility] Acetaminophen 300 MG / Codeine Phosphate 30 MG Oral Tablet [Tylenol with Codeine #3] 1 tab, PO, Q6H, PRN Pain, X 3 day, # 5 t ab, 0 Refill(s) Active 07/14/2019 [facility] Acetaminophen 650 mg, Route: P O, Drug form: TAB, ONCE, Dosing Weight 58.636, kg, Priority: STAT, Start date: 07/13/19 14:58:00 CDT, Stop date: 07/13/19 14:58:00 CDT Inactive 07/13/2019 [facility] Ibuprofen 400 MG Oral Tablet 4 00 mg, 1 tab, Route: PO, ONCE, Dosing Weight 58.636, kg, Start date: 07/13/19 14:58:00 CDT, Stop date: 07/13/19 14:58:00 CDT Inactive 07/13/2019 [facility] Docusate Notes: (Same as: Cola ce) (Do Not Crush) Inactive 04/04/2019 [facility] heparin 5,000 unit, Route: SUB -Q, Q8H, Dosing Weight 63.636, kg, Start date: 04/04/19 8:00:00 CDT, Duration: 30 day, Stop date: 05/04/19 0:00:00 CDT Inactive 04/04/2019 [facility] Dextrose 50% Syringe 25 gm, 50 mL, Route: IVP, Drug Form: INJ, Dosing Weight 63.636, kg, PRN, PRN Blood Glucose Results, Start date: 04/03/19 19:12:00 CDT, Duration: 30 day, Stop date: 05/03/19 19:11:00 CDT No Longer Active 04/04/2019 [facility] Glucagon 1 mg, Route: IM, Drug form: PDR/INJ, PRN, Dosing Weight 63.636, kg, PRN Blood Glucose Results, Start date: 04/03/19 19:12:00 CDT, Duration: 30 day, Stop date: 05/03/19 19:11:00 CDT No Longer Active 04/04/2019 [facility] Ondansetron Notes: (Same as: Tino robbins) MEDICATION WASTE Product Size: 4 mg Product Wasted: ___ mg No Longer Active 04/04/2019 [facility] Acetaminophen Notes: Do not ex ceed 4 gm/day. (Same as: Tylenol) No Longer Active 04/04/2019 [facility] Gentamicin Notes: TIME CRITICA L MEDICATION (Same as Garamycin) For adult patients only: Round to nearest 10 mg per Medical Staff approval Inactive 04/03/2019 [facility] Vancomycin 2001 mg: infuse ov er 2.5 hours For adult patients only: Round to nearest 250 mg per Medical Staff approval MEDICATION WASTE Product Size: 1000 mg Product Wasted: ___ mg Inactive 04/03/2019 [facility] Aspirin 324 mg, Route: CHEW, D rug form: CHEWTAB, ONCE, Dosing Weight 63.636, kg, Priority: STAT, Start date: 04/03/19 14:54:00 CDT, Stop date: 04/03/19 14:54:00 CDT Inactive 04/03/2019 [facility] Saline Flush 0.9% Notes: (Same as: BD Posiflush) No Longer Active 04/03/2019 [facility] Saline Flush 0.9% Notes: prese rvative free. No Longer Active 03/06/2019 [facility] Saline Flush 0.9% Notes: prese rvative free. No Longer Active 03/05/2019 [facility] Aspirin 81 MG Enteric Coated Tablet Notes: Do not crush or chew. (Same As: Ecotrin) No Longer Active 03/05/2019 [facility] insulin, isophane Notes: (Same as: Humulin N) Roll in palms of hands gently; Do not shake vigorously. WASTE: F/P - Black; E - Municipal Trash Bin Stable for 31 days at room temperature Expires in days from Date N o Longer Active 03/04/2019 [facility] Cefazolin Notes: (Same As: Daniel Hope) MEDICATION WASTE Product Size: 1000 mg Product Wasted: ___ mg No Longer Active 03/04/2019 [facility] heparin Notes: porcine heparin No Longer Active 03/04/2019 [facility] ceFAZolin + sterile water 10 mL Notes: (Same As: Daniel Salas) MEDICATION WASTE Product Size: 1000 mg Product Wasted: ___ mg Inactive 03/03/2019 [facility] Tylenol Notes: Do not exceed 4 gm/day. (Same as: Tylenol) No Longer Active 03/03/2019 [facility] Aspirin 81 MG Enteric Coated Tablet Notes: Do not crush or chew. (Same As: Ecotrin) No Longer Active 03/02/2019 [facility] Amlodipine Notes: (Same as: No rvasc) No Longer Active 03/02/2019 [facility] metoprolol extended release No ariane: (Same as: Toprol XL) Do Not Crush No Longer Active 03/02/2019 [facility] atorvastatin Notes: (Same as: Lipitor) No Longer Active 03/02/2019 [facility] vancomycin + Sodium Chloride 0.9% IV 100 mL Notes: TIME CRITICAL MEDICATION (Same As: Vancocin) For adult patients only: Round to nearest 250 mg per Medical Staff approval No Longer Active 03/01/2019 [facility] Vancomycin 1 ea, Route: MISC, ONCALL, Dosing Weight 55.636, kg, Start date: 03/01/19 15:00:00 CDT, Duration: 28 day, Stop date: 03/29/19 14:59:00 CDT, Pharmacy to dose, ABX Indication: Bacteremia Inactive 03/01/2019 [facility] Cefazolin Notes: (Same As: Daniel Hope) MEDICATION WASTE Product Size: 1000 mg Product Wasted: ___ mg No Longer Active 03/01/2019 [facility] Famotidine 20 MG Oral Tablet 2 0 mg = 1 tab, PO, Bedtime, 0 Refill(s) Active 03/01/2019 [facility] Acetaminophen 300 MG / Codeine Phosphate 30 MG Oral Tablet [Tylenol with Codeine #3] 1 tab, PO, Q6H, PRN Pain Score 6-10, 0 R efill(s) Active 03/01/2019 [facility] Furosemide 80 mg, BID, 0 Refil l(s) No Longer Active 03/01/2019 [facility] Insulin Glargine 100 UNT/ML Injectable S olution [Lantus] 20 unit, SUB-Q, Bedtime, # 10 mL, 3 Refill(s) Active 03/01/2019 [facility] metoprolol 25 mg oral tablet, extended release See Instructions, 1/2 tab po BID with food, 0 Refill(s) Active 03/01/2019 [facility] 3 ML NPH Insulin, Human 70 UNT/ML / Regu lar Insulin, Human 30 UNT/ML Prefilled Syringe [Humulin 70/30] SUB-Q, TID-Before Meals, per sliding scale, 0 Refill(s) No Longer Active 03/01/2019 [facility] Insulin Lispro Notes: (Same as : Humalog) Roll in palms of hands gently; Do not shake vigorously. WASTE: F/P - Black; E - Municipal Trash Bin Stable for 28 days at room temperature. Expires in days from Date No Longer Active 03/01/2019 [facility] Dextrose 50% Syringe 12.5 gm, 25 mL, Route: IVP, Drug Form: INJ, Dosing Weight 55.636, kg, PRN, PRN Blood Glucose Results, Start date: 03/01/19 1:47:00 CDT, Duration: 30 day, Stop date: 03/31/19 1:46:00 CDT No Longer Active 03/01/2019 [facility] Glucagon 1 mg, Route: IM, Drug form: PDR/INJ, PRN, Dosing Weight 55.636, kg, PRN Blood Glucose Results, Start date: 03/01/19 1:47:00 CDT, Duration: 30 day, Stop date: 03/31/19 1:46:00 CDT No Longer Active 03/01/2019 [facility] Vancomycin 1 ea, Route: MISC, ONCALL, Dosing Weight 56.818, kg, Start date: 02/28/19 21:00:00 CDT, Duration: 5 day, Stop date: 03/05/19 20:59:00 CDT, Pharmacy to dose, ABX Indication: Skin/Soft Tissue Infection Inactive 03/01/2019 [facility] Hydralazine Notes: (Same as: A presoline) Push over 5 minutes No Longer Active 03/01/2019 [facility] Acetaminophen 325 MG / Hydrocodone Norma trate 5 MG Oral Tablet [Stratton 5/325] Notes: (Same as: Stratton 325/5) Do not ex ceed 4gm/day of acetaminophen. No Longer Activ e 03/01/2019 [facility] Morphine Notes: (Same as:MORPh ine Sulfate) No Longer Active 03/01/2019 [facility] Dextrose 50% Syringe 25 gm, 50 mL, Route: IVP, Drug Form: INJ, Dosing Weight 56.818, kg, PRN, PRN Blood Glucose Results, Start date: 02/28/19 20:01:00 CDT, Duration: 30 day, Stop date: 03/30/19 20:00:00 CDT No Longer Active 03/01/2019 [facility] Ondansetron Notes: (Same as: Tino robbins) MEDICATION WASTE Product Size: 4 mg Product Wasted: ___ mg No Longer Active 03/01/2019 [facility] Glucagon 1 mg, Route: IM, Drug form: PDR/INJ, PRN, Dosing Weight 56.818, kg, PRN Blood Glucose Results, Start date: 02/28/19 20:01:00 CDT, Duration: 30 day, Stop date: 03/30/19 20:00:00 CDT No Longer Active 03/01/2019 [facility] Albuterol 0.83 MG/ML Inhalant Solution Notes: SEE RT DOCUMENTATION (Same as: Proventil) Inactive 02/28/2019 [facility] Kayexalate Notes: (sodium poly styrene sulfonate 15 gm/60 ml MERRY) Shake well before use. (Same as: Kayexalate, SPS) Inactive 02/28/2019 [facility] Insulin regular Notes: (Same a s: Humulin R, NovoLIN R) Roll in palms of hands gently; Do not shake vigorously. WASTE: F/P - Black; E - Municipal Trash Bin Stable for 31 days at room temperature Expi res in days from Date Inactive 02/28/2019 [facility] Lasix Notes: (Same as: Lasix) MEDICATION WASTE Product Size: 40 mg Product Wasted: ___ mg Inactive 02/28/2019 [facility] Zosyn Notes: (Same as: Zosyn) Dosing based on Piperacillin component MEDICATION WASTE Product Size: 3375 mg Product Wasted: ___ mg Inactive 02/28/2019 [facility] Vancomycin 2001 mg: infuse ov er 2.5 hours For adult patients only: Round to nearest 250 mg per Medical Staff approval MEDICATION WASTE Product Size: 1000 mg Product Wasted: ___ mg Inactive 02/28/2019 [facility] Fentanyl Notes: (Same as: Subl imaze) Preservative free. Inactive 02/28/2019 [facility] Sodium Chloride 0.9% (Bolus) IV 500 mL, 500 ml/hr, Infuse Over: 1 hr, Route: IV, 500, Drug form: INJ, ONCE, Priority: STAT, Dosing Weight 56.818 kg, Start date: 02/28/19 13:06:00 CDT, Stop date: 02/28/19 13:06:00 CDT Inactive 02/28/2019 [facility] Saline Flush 0.9% Notes: Same as: BD Posiflush Sterile No Longer Active 02/28/2019 [facility] Acetaminophen Notes: Do not ex ceed 4 gm/day. (Same as: Tylenol) Inactive 02/28/2019 [facility] Vantin 200 mg oral tablet 200 mg = 1 tab, PO, Q24H, X 5 day, # 5 tab, 0 Refill(s) No Longer Active 11/06/2018 [facility] heparin sodium, porcine 2500 UNT/ML Injectable Solutio n Notes: porcine heparin No Longer Active 11/06/2018 [facility] Epogen Notes: (Same as: Procri t) epoetin kathy 2000 unit/1 ml VL For dialysis use only (Epogen) WASTE: F/P - Red; E -Red MEDICATION WASTE Product Size: 2000 mg Product Wasted: ___ mg No Longer Active 11/05/2018 [facility] Merrem Notes: Same as Merrem MEDICATION WASTE Product Size: 500 mg Product Wasted: ___ mg No Longer Active 11/05/2018 [facility] gabapentin 100 MG Oral Capsule Notes: (Same as: Neurontin) No Longer Active 11/04/2018 [facility] Escitalopram Notes: (Same as: Lexapro) No Longer Active 11/04/2018 [facility] clopidogrel Notes: (Same As: P lavix) No Longer Active 11/04/2018 [facility] Insulin Lispro Route: SUB-Q, D rug form: SOLN, TID-Before Meals, Dosing Weight 51.818, kg, Start date: 11/04/18 7:30:00 PERIANESTHESIA RN, Duration: 30 day, Stop date: 12/03/18 16:30:00 PERIANESTHESIA RN No Longer Active 11/04/2018 [facility] pantoprazole Notes: Tablet viola uld not be chewed or crushed. (Same as: Protonix) N o Longer Active 11/04/2018 [facility] atorvastatin Notes: (Same as: Lipitor) No Longer Active 11/04/2018 [facility] Lopressor Notes: (Same as: Lop ressor) No Longer Active 11/04/2018 [facility] Furosemide Notes: (Same as: Tavia damon) MEDICATION WASTE Product Size: 40 mg Product Wasted: ___ mg No Longer Active 11/03/2018 [facility] Aspirin 81 MG Enteric Coated Tablet Notes: Do not crush or chew. (Same As: Ecotrin) No Longer Active 11/03/2018 [facility] gabapentin 100 MG Oral Capsule 100 mg = 1 cap, PO, Bedtime, 0 Refill(s) Active 11/03/2018 [facility] metoprolol tartrate 25 mg oral tablet 25 mg = 1 tab, PO, BID, 0 Refill(s) No Longer Active 11/03/2018 [facility] Albuterol 0.83 MG/ML Inhalant Solution Notes: SEE RT DOCUMENTATION (Same as: Proventil) No Longer Active 11/03/2018 [facility] morphine 0.5 mg/mL preservative-free inj ectable solution 2 mg, 1 mL, Route: IVP, Drug form: SOLN, Q3H, Dosing Weight 51.818, kg, PRN Pain Score 6-10, Start date: 11/02/18 18:13:00 PERIANESTHESIA RN, Duration: 30 day, Stop date: 12/02/18 18:12:00 PERIANESTHESIA RN No Longe r Active 11/03/2018 [facility] Insulin Lispro Notes: (Same as : Humalog ) Roll in palms of hands gently; Do not shake `vigorously. "Single Patient Use Only " WASTE: F/P - Black; E - Municipal Trash Bin Stable for 28 days at room temp erature. Expires in days from Date No Longer Active 11/02/2018 [facility] Glucagon 1 mg, Route: IM, Drug form: PDR/INJ, PRN, Dosing Weight 51.818, kg, PRN Blood Glucose Results, Start date: 11/02/18 14:59:00 PERIANESTHESIA RN, Duration: 30 day, Stop date: 12/02/18 14:58:00 PERIANESTHESIA RN No Longer Active 11/02/2018 [facility] Dextrose 50% Syringe 25 gm, 50 mL, Route: IVP, Drug Form: INJ, Dosing Weight 51.818, kg, PRN, PRN Blood Glucose Results, Start date: 11/02/18 14:59:00 PERIANESTHESIA RN, Duration: 30 day, Stop date: 12/02/18 14:58:00 PERIANESTHESIA RN No Longer Active 11/02/2018 [facility] Acetaminophen 325 MG / Hydrocodone Norma trate 5 MG Oral Tablet [Stratton 5/325] Notes: (Same as: Stratton 325/5) Do not ex ceed 4gm/day of acetaminophen. No Longer Activ e 11/02/2018 [facility] Azithromycin Notes: (Same As: Zithromax IV) No Longer Active 11/02/2018 [facility] Ceftriaxone Notes: (Same As: Sabi altman). Use with 100 mL NS and infuse over 30 min MEDICATION WASTE Product Size: 1000 mg Product Wasted: ___ mg No Longer Active 11/02/2018 [facility] Ondansetron Notes: (Same as: Tino robbins) MEDICATION WASTE Product Size: 4 mg Product Wasted: ___ mg No Longer Active 11/02/2018 [facility] Guaifenesin Notes: (Same as: Sabi obitussin) No Longer Active 11/02/2018 [facility] Acetaminophen 325 MG / Hydrocodone Norma trate 10 MG Oral Tablet [Stratton 10/325] 1 tab, Route: PO, Drug Form: TAB, Dosing Weight 58.182, kg, ONCE, STAT, Start date: 11/01/18 22:47:00 PERIANESTHESIA RN, Stop date: 11/01/18 22:47:00 PERIANESTHESIA RN Inactive 11/02/2018 [facility] Levaquin Notes: (Same as:Levaq uin) Inactive 11/02/2018 [facility] Zofran 4 mg, Route: IVP, Drug form: INJ, ONCE, Dosing Weight 58.182, kg, Priority: STAT, Start date: 11/01/18 21:07:00 PERIANESTHESIA RN, Stop date: 11/01/18 21:07:00 PERIANESTHESIA RN Inactive 11/02/2018 [facility] Morphine 4 mg, Route: IVP, ONC E, Dosing Weight 58.182, kg, Priority: STAT, Start date: 11/01/18 21:06:00 PERIANESTHESIA RN, Stop date: 11/01/18 21:06:00 PERIANESTHESIA RN Inactive 11/02/2018 [facility] cefdinir 300 MG Oral Capsule [Omnicef] 300 mg = 1 cap, PO, Q48H, please take on HD days after HD treatment, X 14 day, # 7 cap, 0 Refill(s), Pharmacy: [facility] [id number] No Longer Active 08/06/2018 [facility] Epogen Notes: (Same as: Procri t) epoetin kathy 2000 unit/1 ml VL For dialysis use only (Epogen) WASTE: F/P - Red; E -Red MEDICATION WASTE Product Size: 2000 mg Product Wasted: ___ mg No Longer Active 08/03/2018 [facility] Potassium Chloride 40 mEq, Rou te: PO, Drug form: ERTAB, ONCE, Dosing Weight 52.002, kg, Start date: 08/03/18 16:00:00 CDT, Stop date: 08/03/18 16:00:00 CDT Inactive 08/03/2018 [facility] Potassium Chloride Notes: ([facility] as: K-Dur 20) "Do Not Crush" For patients unable to swallow tablet, dissolve in one half glass of water. Allow about 2 minutes for the tablets to disintegrate. Stir before giving to prepare slurry and administer. Please exclude Patients with feeding tube less than 14 [place] (Dobhoff, J-tube etc) and pediatric and patients. With food and full glass of water Inactive 08/03/2018 [facility] Fludrocortisone Notes: (Same a s: Florinef Acetate) Give with food. No Longer Active 08/02/2018 [facility] Rocephin + sterile water 10 mL Notes: (Same As: Rocephin). Use with 100 mL NS and infuse over 30 min MEDICATION WASTE Product Size: 1000 mg Product Wasted: ___ mg No Longer Active 07/31/2018 [facility] Epogen Notes: (Same as: Procri t) epoetin kathy 2000 unit/1 ml VL For dialysis use only (Epogen) WASTE: F/P - Red; E -Red MEDICATION WASTE Product Size: 2000 mg Product Wasted: ___ mg No Longer Active 07/30/2018 [facility] Epoetin Kathy Notes: (Same as: Procrit) epoetin kathy 3000 unit/1 ml VL. For dialysis use only WASTE: F/P - Red; E -Red MEDICATION WASTE Product Size: 3000 unit Product Wasted: ___ unit Inactive 07/30/2018 [facility] atorvastatin Notes: (Same as: Lipitor) No Longer Active 07/30/2018 [facility] Potassium Chloride Notes: ([facility] as: K-Dur 20) "Do Not Crush" For patients unable to swallow tablet, dissolve in one half glass of water. Allow about 2 minutes for the tablets to disintegrate. Stir before giving to prepare slurry and administer. Please exclude Patients with feeding tube less than 14 [place] (Dobhoff, J-tube etc) and pediatric and patients. With food and full glass of water Inactive 07/29/2018 [facility] heparin Notes: porcine heparin No Longer Active 07/29/2018 [facility] Sulfasalazine Notes: (Same As: Azulfidine) No Longer Active 07/29/2018 [facility] Promethazine Notes: (Same as: Phenergan) No Longer Active 07/29/2018 [facility] pantoprazole Notes: Tablet viola uld not be chewed or crushed. (Same as: Protonix) N o Longer Active 07/29/2018 [facility] metoprolol tartrate Notes: (Sa me as: Lopressor) No Longer Active 07/29/2018 [facility] Furosemide Notes: (Same as: La six) May cause GI upset. Give with food or milk. No Longer Active 07/29/2018 [facility] Escitalopram Notes: (Same as: Lexapro) No Longer Active 07/29/2018 [facility] clopidogrel Notes: (Same As: P lavix) No Longer Active 07/29/2018 [facility] Amlodipine Notes: (Same as: No rvasc) No Longer Active 07/29/2018 [facility] Aspirin 81 MG Enteric Coated Tablet Notes: Do not crush or chew. (Same As: Ecotrin) No Longer Active 07/29/2018 [facility] Insulin Lispro Notes: (Same as : Humalog ) Roll in palms of hands gently; Do not shake `vigorously. "Single Patient Use Only " WASTE: F/P - Black; E - Municipal Trash Bin Stable for 28 days at room temp erature. Expires in days from Date No Longer Active 07/29/2018 [facility] Glucagon 1 mg, Route: IM, Drug form: PDR/INJ, PRN, Dosing Weight 58.182, kg, PRN Blood Glucose Results, Start date: 07/29/18 5:55:00 CDT, Duration: 30 day, Stop date: 08/28/18 5:54:00 CDT No Longer Active 07/29/2018 [facility] Dextrose 50% Syringe 12.5 gm, 25 mL, Route: IVP, Drug Form: INJ, Dosing Weight 58.182, kg, PRN, PRN Blood Glucose Results, Start date: 07/29/18 5:55:00 CDT, Duration: 30 day, Stop date: 08/28/18 5:54:00 CDT No Longer Active 07/29/2018 [facility] Promethazine Hydrochloride 25 MG Oral Tablet 25 mg = 1 tab, PO, BID, 0 Refill(s) Active 07/29/2018 [facility] Streptococcus pneumoniae serotype 1 caps ular antigen diphtheria [id number] protein conjugate vaccine / Streptococcus pneumoniae serotype 14 capsular antigen diphtheria [id number] protein conjugate vaccine / Streptococcus pneumoniae serotype 18C capsular antigen d 0.5 mL, Route: IM, ONCALL, Start date: 07/29/18 0:45:39 CDT, Stop date: 08/28/18 0:40:39 CDT Inactive 07/29/2018 [facility] Acetaminophen Notes: Do not ex ceed 4 gm/day. (Same as: Tylenol) No Longer Active 07/29/2018 [facility] Ondansetron Notes: (Same as: Tino robbins) MEDICATION WASTE Product Size: 4 mg Product Wasted: ___ mg No Longer Active 07/29/2018 [facility] NS (Bolus) IV 500 mL, 500 ml/h r, Infuse Over: 1 hr, Route: IV, 500, Drug form: INJ, ONCE, Priority: STAT, Dosing Weight 58.1 kg, Start date: 07/28/18 21:02:00 CDT, Stop date: 07/28/18 21:02:00 CDT Inactive 07/29/2018 [facility] Insulin Lispro 100 UNT/ML Injectable Solution Blood Sugar Control, SUB-Q, TID-Before Meals, Check blood sugar before breakfast, lunch, and dinner, and inject correction doses: Inject 1 unit if Sugar 150-199, Inject 2 units if Sugar 200-249, Inject 3 units if Sugar 250-299, Inject 4 units if Sugar... Active 05/05/2018 [facility] epoetin kathy 3000 units/mL preservative- free injectable solution 3,000 unit = 1 mL, SUB-Q, Q-Sa, 0 Refill(s) Active 05/05/2018 [facility] metoprolol tartrate 50 mg oral tablet 50 mg = 1 tab, PO, BID, # 60 tab, 1 Refill(s) Active 05/05/2018 [facility] Epogen Notes: (Same as: Procri t) epoetin kathy 3000 unit/1 ml VL. For dialysis use only WASTE: F/P - Red; E -Red MEDICATION WASTE Product Size: 3000 unit Product Wasted: ___ unit No Longer Active 05/04/2018 [facility] Epogen Notes: (Same as: Procri t) epoetin kathy 3000 unit/1 ml VL. For dialysis use only WASTE: F/P - Red; E -Red MEDICATION WASTE Product Size: 3000 unit Product Wasted: ___ unit Inactive 05/03/2018 [facility] Hydralazine Notes: (Same as: A presoline) Push over 5 minutes Inactive 05/02/2018 [facility] Bumex Notes: (Same As: Bumex) No Longer Active 05/01/2018 [facility] Amlodipine Notes: (Same as: No rvasc) No Longer Active 04/30/2018 [facility] Aspirin 81 MG Enteric Coated Tablet 81 mg, 1 tab, Route: PO, Drug form: ECTAB, Daily, Dosing Weight 58.1, kg, Start date: 04/30/18 9:00:00 CDT, Duration: 30 day, Stop date: 05/29/18 9:00:00 CDT No Longer Active 04/30/2018 [facility] clopidogrel Notes: (Same As: P lavix) No Longer Active 04/30/2018 [facility] Escitalopram Notes: (Same as: Lexapro) No Longer Active 04/30/2018 [facility] Lasix Notes: (Same as: Lasix) MEDICATION WASTE Product Size: 40 mg Product Wasted: ___ mg Inactive 04/30/2018 [facility] atorvastatin Notes: (Same as: Lipitor) No Longer Active 04/30/2018 [facility] metoprolol tartrate Notes: (Sa me as: Lopressor) No Longer Active 04/30/2018 [facility] Morphine Notes: (Same as:MORPh ine Sulfate) Inactive 04/29/2018 [facility] Heparin 30 unit/kg Bolus (Heparin Dosing Weight) Route: IVP, PRN, 1,500 unit, 1.5 mL, Drug form: INJ, PRN, Heparin Protocol, Start date: 04/29/18 18:06:00 CDT Stop date: 05/29/18 18:05:00 CDT, 30 day No Longer Active 04/29/2018 [facility] Heparin 60 unit/kg Bolus (Heparin Dosing Weight) Route: IVP, PRN, 3,000 unit, 3 mL, Drug form: INJ, PRN, Heparin Protocol, Start date: 04/29/18 18:06:00 CDT Stop date: 05/29/18 18:05:00 CDT, 30 day No Longer Active 04/29/2018 [facility] heparin additive 25,000 unit [12 unit/kg /hr] + Premix Diluent Dextrose 5% 500 mL 500 mL, Rate: 12.12 ml/hr, Infuse over: 41.3 hr, Route: IV, Dosing Weight 50.5 kg, Total Volume: 500 mL, Start date: 04/29/18 18:06:00 CDT, Duration: 30 day, Stop date: 05/29/18 18:05:00 CDT, 1.48, m2 No Longer Active 04/29/2018 [facility] Morphine 2 mg, Route: IVP, ONC E, Dosing Weight 58.1, kg, Start date: 04/29/18 17:57:00 CDT, Stop date: 04/29/18 17:57:00 CDT Inactive 04/29/2018 [facility] Nitroglycerin 0.4 MG Sublingual Tablet Notes: (Same as:Nitroquick, Nitrostat) "Do Not Crush" Sublingual tablet No Longer Active 04/29/2018 [facility] Morphine Notes: (Same as:MORPh ine Sulfate) No Longer Active 04/29/2018 [facility] Sulfasalazine Notes: (Same As: Azulfidine) No Longer Active 04/29/2018 [facility] pantoprazole Notes: Tablet viola uld not be chewed or crushed. (Same as: Protonix) N o Longer Active 04/29/2018 [facility] Lasix Notes: (Same as: Lasix) MEDICATION WASTE Product Size: 40 mg Product Wasted: ___ mg Inactive 04/29/2018 [facility] Saline Flush 0.9% Notes: (Same as: BD Posiflush) No Longer Active 04/29/2018 [facility] Aspirin 81 MG Enteric Coated Tablet Notes: Do not crush or chew. (Same As: Ecotrin) No Longer Active 04/29/2018 [facility] heparin Notes: porcine heparin Inactive 04/29/2018 [facility] Insulin regular See Instructio ns, SUB-Q TID-Before Meals, 0 Refill(s) Active 04/29/2018 [facility] Insulin Glargine 100 UNT/ML Injectable S olution [Lantus] 20 unit, SUB-Q, Bedtime, # 10 mL, 3 Refill(s) No Longer Active 04/29/2018 [facility] NIFEdipine 60 mg oral tablet, extended release Notes: (Same as: Adalat CC, Procardia XL) Give on empty stomach. Take 1 hour before or 2 hours after meal; "Avoid grapefruit and grapefruit juice". Do not crush Inactive 04/29/2018 [facility] Furosemide 80 mg, BID, 0 Refil l(s) Active 04/29/2018 [facility] Dextrose 50% Syringe 25 gm, 50 mL, Route: IVP, Drug Form: INJ, Dosing Weight 58.1, kg, ONCE, Start date: 04/29/18 0:27:00 CDT, Stop date: 04/29/18 0:27:00 CDT Inactive 04/29/2018 [facility] Nitroglycerin 0.02 MG/MG Topical Ointment Notes: 1 gram is approximately 1 inch of nitroglycerin ointment (20 mg NTG per gram) (Same as:Nitro-Bid) Inactive 04/29/2018 [facility] Albuterol 0.833 MG/ML / Ipratropium Brom sha 0.167 MG/ML Inhalant Solution [DuoNeb] Notes: (Same as: Duoneb) No Longer Active 04/29/2018 [facility] Insulin Lispro Notes: (Same as : Humalog ) Roll in palms of hands gently; Do not shake `vigorously. "Single Patient Use Only " WASTE: F/P - Black; E - [employer] Trash Bin Stable for 28 days at room temp erature. Expires in days from Date No Longer Active 04/29/2018 [facility] Glucagon 1 mg, Route: IM, Drug form: PDR/INJ, PRN, Dosing Weight 58.1, kg, PRN Blood Glucose Results, Start date: 04/28/18 23:47:00 CDT, Duration: 30 day, Stop date: 05/28/18 23:46:00 CDT No Longer Active 04/29/2018 [facility] Dextrose 50% Syringe 25 gm, 50 mL, Route: IVP, Drug Form: INJ, Dosing Weight 58.1, kg, PRN, PRN Blood Glucose Results, Start date: 04/28/18 23:47:00 CDT, Duration: 30 day, Stop date: 05/28/18 23:46:00 CDT No Longer Active 04/29/2018 [facility] Morphine Notes: (Same as:MORPh ine Sulfate) No Longer Active 04/29/2018 [facility] Saline Flush 0.9% Notes: (Same as: BD Posiflush) No Longer Active 04/29/2018 [facility] Nitroglycerin Notes: (Same as: Nitroquick, Nitrostat) "Do Not Crush" Sublingual tablet No Longer Active 04/29/2018 [facility] Ondansetron Notes: (Same as: Z ofran) No Longer Active 04/29/2018 [facility] Nitroglycerin Notes: (Same as: Nitroquick, Nitrostat) "Do Not Crush" Sublingual tablet No Longer Active 04/29/2018 [facility] Zofran ODT Notes: (Same as: Zo josé miguel ODT) Inactive 04/29/2018 [facility] Morphine Notes: Preservative f ree. (Same as: Morphine Sulfate-PF) Inactive 04/29/2018 [facility] GI cocktail Notes: [place] = antacid with simethicone 22.5 mL - lidocaine viscous 7.5 mL Inactive 04/29/2018 [facility] Lasix Notes: (Same as: Lasix) MEDICATION WASTE Product Size: 40 mg Product Wasted: ___ mg Inactive 04/29/2018 [facility] Aspirin Notes: Take with food. Inactive 04/29/2018 [facility] Saline Flush 0.9% Notes: Same as: BD Posiflush Sterile Inactive 04/28/2018 [facility] pantoprazole 40 mg oral enteric coated tablet 40 mg = 1 tab, PO, Daily, # 30 tab, 0 Refill(s) Active 04/01/2018 [facility] atorvastatin 40 mg oral tablet 40 mg = 1 tab, PO, Bedtime, # 30 tab, 0 Refill(s) Active 04/01/2018 [facility] Aspirin 81 MG Enteric Coated Tablet 81 mg = 1 tab, PO, Daily, # 30 tab, 0 Refill(s) Active 04/01/2018 [facility] clopidogrel 75 mg oral tablet 75 mg = 1 tab, PO, Daily, # 30 tab, 0 Refill(s) Active 04/01/2018 [facility] amLODIPine 10 mg oral tablet 1 0 mg = 1 tab, PO, Daily, # 30 tab, 0 Refill(s) Active 04/01/2018 [facility] sulfaSALAzine 500 mg oral tablet 500 mg = 1 tab, PO, BID, # 60 tab, 0 Refill(s) Active 04/01/2018 [facility] metoprolol tartrate 25 mg oral tablet 25 mg = 1 tab, PO, Q12H, # 60 tab, 0 Refill(s) Active 04/01/2018 [facility] escitalopram 10 mg oral tablet 10 mg = 1 tab, PO, Daily, # 30 tab, 0 Refill(s) Active 04/01/2018 [facility] Physical Therapy See Instructi ons, MISC, ONCALL, Evaluate and Treat 2-3 times per week for 4-6 weeks, # 1 ea, 0 Refill(s) Active 04/01/2018 [facility] Occupational Therapy See Instr uctions, MISC, ONCALL, Evaluate and Treat 2-3 times per week for 4-6 weeks, # 1 unit, 0 Refill(s) Active 04/01/2018 [facility] Amlodipine Notes: (Same as: No rvasc) Inactive 04/01/2018 [facility] Norvasc Notes: (Same as: Norva sc) No Longer Active 03/30/2018 [facility] Insulin Glargine 100 UNT/ML Injectable Solution Notes: (Same as: Lantus) Do not hold insulin without contacting prescriber WASTE: F/P - Black; E - Municipal Trash Bin "single patient use only" No Longer Active 03/29/2018 [facility] heparin Notes: porcine heparin No Longer Active 03/28/2018 [facility] Acetaminophen 325 MG / Hydrocodone Norma trate 10 MG Oral Tablet [Stratton 10/325] Notes: Do not exceed 4gm/day of acetamin ophen. (Same as: Stratton 325/10) No Longer Active 03/27/2018 [facility] Acetaminophen 325 MG / Hydrocodone Norma trate 5 MG Oral Tablet [Stratton 5/325] Notes: (Same as: Stratton 325/5) Do not ex ceed 4gm/day of acetaminophen. No Longer Activ e 03/27/2018 [facility] Insulin Glargine 100 UNT/ML Injectable Solution Notes: (Same as: Lantus) Do not hold insulin without contacting prescriber WASTE: F/P - Black; E - Municipal Trash Bin "single patient use only" No Longer Active 03/27/2018 [facility] Acetaminophen 325 MG / Hydrocodone Norma trate 5 MG Oral Tablet [Stratton 5/325] Notes: (Same as: Stratton 325/5) Do not ex ceed 4gm/day of acetaminophen. No Longer Activ e 03/27/2018 [facility] Insulin Glargine 100 UNT/ML Injectable Solution 10 unit, Route: SUB-Q, Drug form: SOLN, BID, Dosing Weight 56.818, kg, Start date: 03/26/18 17:00:00 CDT, Duration: 30 day, Stop date: 04/25/18 9:00:00 CDT Inactive 03/26/2018 [facility] Epogen (ESRD) Notes: (Same as: Procrit) epoetin kathy 83209 unit/1 ml VL. For dialysis use only. (Procrit) WASTE: F/P - Red; E -Red MEDICATION WASTE Product Size: 26324 unit Product Wasted: ___ unit No Longer Active 03/23/2018 [facility] Insulin Glargine 100 UNT/ML Injectable Solution Notes: (Same as: Lantus) Do not hold insulin without contacting prescriber WASTE: F/P - Black; E - Municipal Trash Bin "single patient use only" No Longer Active 03/23/2018 [facility] Sulfasalazine Notes: (Same As: Azulfidine) No Longer Active 03/22/2018 [facility] Lexapro Notes: (Same as: Lexap ro) No Longer Active 03/22/2018 [facility] Protonix Notes: Tablet should not be chewed or crushed. (Same as: Protonix) No Longer Active 03/22/2018 [facility] aspirin 81 mg tablet, enteric coated Notes: Do not crush or chew. (Same As: Ecotrin) No Longer Active 03/22/2018 [facility] Escitalopram 10 mg, Route: PO, Drug form: TAB, Daily, Dosing Weight 56.818, kg, Start date: 03/22/18 9:00:00 CDT, Duration: 30 day, Stop date: 04/20/18 9:00:00 CDT No Longer Active 03/22/2018 [facility] Insulin Glargine 100 UNT/ML Injectable Solution Notes: (Same as: Lantus) Do not hold insulin without contacting prescriber WASTE: F/P - Black; E - Municipal Trash Bin "single patient use only" Inactive 03/22/2018 [facility] Compression Stockings 1 ea, Ro kay: TOP, Dosing Weight 61.7, kg, Daily, Start date: 03/22/18 9:00:00 CDT No Longer Active 03/22/2018 [facility] Plavix Notes: (Same As: Plavix) No Longer Active 03/22/2018 [facility] please give midodrine before dialysis on dialysis days please give midodrine before dialysis on dialysis days, reminder, Drug form: MISC, Route: MISC, Daily, 03/22/18 6:00:00 CDT, Duration: 30 day, Stop date: 04/20/18 6:00:00 CDT No Longer Active 03/22/2018 [facility] Lipitor Notes: (Same as: Lipit or) No Longer Active 03/22/2018 [facility] Lopressor Notes: (Same as: Lop ressor) No Longer Active 03/22/2018 [facility] Lisinopril Notes: (Same as: Pr inivil, Zestril) No Longer Active 03/22/2018 [facility] nitroglycerin 0.4 mg sublingual tablet Notes: (Same as:Nitroquick, Nitrostat) "Do Not Crush" Sublingual tablet No Longer Active 03/21/2018 [facility] Reglan Notes: (Same as: Reglan ) Take 30 min before meals No Longer Active 03/21/2018 [facility] melatonin Notes: (Same as: Priti atonin) No Longer Active 03/21/2018 [facility] Humalog Notes: (Same as: Humal og ) Roll in palms of hands gently; Do not shake `vigorously. "Single Patient Use Only " WASTE: F/P - Black; E - Municipal Trash Bin Stable for 28 days at room temperature. Expires in days from Date No Longer Active 03/21/2018 [facility] Humalog Notes: (Same as: Humal og ) Roll in palms of hands gently; Do not shake `vigorously. "Single Patient Use Only " WASTE: F/P - Black; E - Municipal Trash Bin Stable for 28 days at room temperature. Expires in days from Date No Longer Active 03/21/2018 [facility] Humalog Notes: (Same as: Humal og ) Roll in palms of hands gently; Do not shake `vigorously. "Single Patient Use Only " WASTE: F/P - Black; E - Municipal Trash Bin Stable for 28 days at room temperature. Expires in days from Date No Longer Active 03/21/2018 [facility] glucagon 1 mg, Route: IM, Drug form: PDR/INJ, PRN, Dosing Weight 68.6, kg, PRN Blood Glucose Results, Start date: 03/21/18 16:09:00 CDT, Duration: 30 day, Stop date: 04/20/18 16:08:00 CDT No Longer Active 03/21/2018 [facility] Dextrose 50% Syringe 25 gm, 50 mL, Route: IVP, Drug Form: INJ, Dosing Weight 68.6, kg, PRN, PRN Blood Glucose Results, Start date: 03/21/18 16:09:00 CDT, Duration: 30 day, Stop date: 04/20/18 16:08:00 CDT No Longer Active 03/21/2018 [facility] Tylenol Notes: Do not exceed 4 gm/day. (Same as: Tylenol) No Longer Active 03/21/2018 [facility] ProAmatine Notes: (Same as:Pro amatine) No Longer Active 03/21/2018 [facility] Trazodone Notes: (Same As: Edison yrel) No Longer Active 03/21/2018 [facility] midodrine 5 mg oral tablet 10 mg = 2 tab, PO, Before Dialysis, PRN Other -See Comment | before dialysis, 0 Refill(s) On Hold 03/21/2018 [facility] Sodium Chloride 0.9% (titrate) 250 mL 250 mL, Rate: To prime line and flush remaining blood products., Dosing Weight 68.6, kg, Route: IV, Total Volume: 250, Priority: Routine, Start Date: 03/20/18 10:11:00 CDT, Duration: 1 day, Stop date: 03/21/18 10:10:00 CDT, Replace Every: 24 hr No Longer Active 03/20/2018 [facility] Epogen 10,000 unit, Route: IVP , Q-M-W-F, Dosing Weight 68.6, kg, Start date: 03/20/18 9:00:00 CDT, Duration: 30 day, Stop date: 04/17/18 9:00:00 CDT No Longer Active 03/20/2018 [facility] Acetaminophen 325 MG / Hydrocodone Norma trate 5 MG Oral Tablet Notes: (Same as: Stratton 325/5) Do not ex ceed 4gm/day of acetaminophen. No Longer Active 03/19/2018 [facility] Hydromorphone Notes: (Same as: Dilaudid) No Longer Active 03/19/2018 [facility] Acetaminophen 325 MG / Hydrocodone Norma trate 10 MG Oral Tablet Notes: Do not exceed 4gm/day of acetamin ophen. (Same as: Stratton 325/10) No Longer Active 03/19/2018 [facility] Sodium Chloride 0.9% (Bolus) IV 500 mL, Route: IV, ONCE, Dosing Weight 68.6 kg, Start date: 03/19/18 14:39:00 CDT, Stop date: 03/19/18 14:39:00 CDT, Bolus Inactive 03/19/2018 [facility] metoclopramide (ANES) Route: I V, Drug form: INJ, ONCE, Stop date: 03/19/18 13:54:00 CDT Inactive 03/19/2018 [facility] lidocaine (ANES) Route: IV, Dr ug form: INJ, ONCE, Stop date: 03/19/18 13:49:00 CDT Inactive 03/19/2018 [facility] propofol (ANES) Route: IV, Patel g form: INJ, ONCE, Stop date: 03/19/18 13:49:00 CDT Inactive 03/19/2018 [facility] ceFAZolin (ANES) 1000 mg Route : IV, Drug form: INJ, Start date: 03/19/18 13:19:00 CDT, Stop date: 03/19/18 14:19:00 CDT Inactive 03/19/2018 [facility] vancomycin (ANES) 1000 mg Rout e: IV, Drug form: INJ, Start date: 03/19/18 13:16:00 CDT, Stop date: 03/19/18 14:16:00 CDT Inactive 03/19/2018 [facility] Sodium Chloride 0.9% IV (ANES) 500 mL Route: IV, Total Volume: 500, Start date: 03/19/18 13:07:00 CDT, Stop date: 03/19/18 14:07:00 CDT Inactive 03/19/2018 [facility] Acetaminophen 325 MG / Hydrocodone Norma trate 10 MG Oral Tablet [Stratton 10/325] Notes: Do not exceed 4gm/day of acetamin ophen. (Same as: Stratton 325/10) No Longer Active 03/19/2018 [facility] atorvastatin 40 mg oral tablet 40 mg = 1 tab, PO, Bedtime, # 30 tab, 0 Refill(s), Pharmacy: [facility] [id number] On Hold 03/18/2018 [facility] Aspirin 81 MG Enteric Coated Tablet 81 mg = 1 tab, PO, Daily, # 30 tab, 3 Refill(s), Pharmacy: [facility] [id number] On Hold 03/18/2018 [facility] lisinopril 2.5 mg oral tablet 2.5 mg = 1 tab, PO, Daily, # 30 tab, 0 Refill(s), Pharmacy: [facility] [id number] On Hold 03/18/2018 [facility] metoprolol tartrate 25 mg oral tablet 12.5 mg = 0.5 tab, PO, Q12H, # 30 tab, 0 Refill(s), Pharmacy: [facility] [id number] On Hold 03/18/2018 [facility] clopidogrel 75 mg oral tablet 75 mg = 1 tab, PO, Daily, # 30 tab, 1 Refill(s), Pharmacy: [facility] [id number] On Hold 03/18/2018 [facility] Sodium Chloride 0.9% (Bolus) IV 500 mL, 500 ml/hr, Infuse Over: 1 hr, Route: IV, ONCE, Priority: STAT, Dosing Weight 68.6 kg, Start date: 03/17/18 19:43:00 CDT, Stop date: 03/17/18 19:43:00 CDT Inactive 03/18/2018 [facility] Epogen Notes: (Same as: Procri t) epoetin kathy 75084 unit/1 ml VL. For dialysis use only. (Procrit) WASTE: F/P - Red; E -Red MEDICATION WASTE Product Size: 73223 unit Product Wasted: ___ unit No Longer Active 03/16/2018 [facility] please give midodrine before dialysis on dialysis days please give midodrine before dialysis on dialysis days, reminder, Drug form: MISC, Route: MISC, Daily, 03/16/18 6:00:00 CDT, Duration: 30 day, Stop date: 04/14/18 6:00:00 CDT No Longer Active 03/16/2018 [facility] Insulin, Aspart, Human 10 unit , Route: SUB-Q, ONCE, Dosing Weight 68.6, kg, Start date: 03/15/18 21:02:00 CDT, Stop date: 03/15/18 21:02:00 CDT Inactive 03/16/2018 [facility] Insulin Lispro Notes: (Same as : Humalog ) Roll in palms of hands gently; Do not shake `vigorously. "Single Patient Use Only " WASTE: F/P - Black; E - Municipal Trash Bin Stable for 28 days at room temp erature. Expires in days from Date No Longer Active 03/16/2018 [facility] Midodrine Notes: (Same as:Proa matine) No Longer Active 03/15/2018 [facility] sodium bicarbonate 8.4% Notes: (sodium bicarb 8.4% (1 mEq/ml) 50 ml syringe) Inactiv e 03/12/2018 [facility] albumin human 25% intravenous solution 25 gm, Route: IVPB, ONCE, Dosing Weight 68.6, kg, Start date: 03/12/18 13:21:00 CDT, Stop date: 03/12/18 13:21:00 CDT Inactive 03/12/2018 [facility] sodium bicarbonate 8.4% Notes: (sodium bicarb 8.4% (1 mEq/ml) 50 ml syringe) Inactiv e 03/12/2018 [facility] Norepinephrine Notes: Same as: Levophed. Administer by either central venous catheter or peripherally-inserted central catheter (PICC) line. Concentration: 0.032 mg / mL No Longer Active 03/11/2018 [facility] albumin human Notes: LOT#: ___ Mfg: WASTE: F/P - Red; E -Red (Same as: Albuminar) "blood product derivative" Inactive 03/11/2018 [facility] albumin human Notes: LOT#: ___ Mfg: WASTE: F/P - Red; E -Red (Same as: Albuminar) "blood product derivative" No Longer Active 03/11/2018 [facility] albumin human Notes: Lot #: __ Mfg: (Same as: Plasbumin-25) "blood product derivative" WASTE: F/P - Red; E -Red MEDICATION WASTE Product Size: 25 gm Product Wasted: ___ gm Inactive 03/11/2018 [facility] Insulin Lispro Notes: (Same as : Humalog ) Roll in palms of hands gently; Do not shake `vigorously. "Single Patient Use Only " WASTE: F/P - Black; E - Municipal Trash Bin Stable for 28 days at room temp erature. Expires in days from Date No Longer Active 03/11/2018 [facility] Dextrose 50% Syringe 12.5 gm, 25 mL, Route: IVP, Drug Form: INJ, Dosing Weight 68.6, kg, PRN, PRN Blood Glucose Results, Start date: 03/10/18 20:16:00 CDT, Duration: 30 day, Stop date: 04/09/18 20:15:00 CDT No Longer Active 03/11/2018 [facility] Glucagon 1 mg, Route: IM, Drug form: PDR/INJ, PRN, Dosing Weight 68.6, kg, PRN Blood Glucose Results, Start date: 03/10/18 20:16:00 CDT, Duration: 30 day, Stop date: 04/09/18 20:15:00 CDT No Longer Active 03/11/2018 [facility] bumetanide 10 mg + Sodium Chloride 0.9% (titrate) 60 m L Notes: (Same As: Bumex) No Longer Active 03/11/2018 [facility] albumin human Notes: LOT#: ___ Mfg: WASTE: F/P - Red; E -Red (Same as: Albuminar) "blood product derivative" Inactive 03/10/2018 [facility] albumin human Notes: Lot #: __ Mfg: (Same as: Plasbumin-25) "blood product derivative" WASTE: F/P - Red; E -Red MEDICATION WASTE Product Size: 25 gm Product Wasted: ___ gm Inactive 03/09/2018 [facility] Furosemide 100 mg, Route: IV, ONCE, Dosing Weight 56.8, kg, Priority: NOW, Start date: 03/09/18 7:52:00 CDT, Stop date: 03/09/18 7:52:00 CDT Inactive 03/09/2018 [facility] Lasix Notes: (Same as: Lasix) MEDICATION WASTE Product Size: 100 mg Product Wasted: ___ mg Inactive 03/09/2018 [facility] albumin human Notes: LOT#: ___ Mfg: WASTE: F/P - Red; E -Red (Same as: Albuminar) "blood product derivative" No Longer Active 03/09/2018 [facility] furosemide 100 mg + Sodium Chloride 0.9% IV 90 mL Notes: (Same as: Lasix) MEDICATION WASTE Product Size: 100 mg Product Wasted: ___ mg No Longer Active 03/08/2018 [facility] Lasix Notes: (Same as: Lasix) MEDICATION WASTE Product Size: 100 mg Product Wasted: ___ mg Inactive 03/08/2018 [facility] Lasix Notes: (Same as: Lasix) MEDICATION WASTE Product Size: 40 mg Product Wasted: ___ mg Inactive 03/08/2018 [facility] Lasix Notes: (Same as: Lasix) MEDICATION WASTE Product Size: 40 mg Product Wasted: ___ mg Inactive 03/07/2018 [facility] albumin human 25% intravenous solution Notes: LOT#: Mfg: WASTE: F/P - Red; E -Red (Same as: Albuminar) "blood product derivative" No Longer Active 03/07/2018 [facility] docusate sodium 100 mg oral capsule Notes: (Same as: Colace) (Do Not Crush) No Longer Active 03/07/2018 [facility] albumin human 25% intravenous solution Notes: Lot #: Mfg: (Same as: Plasbumin-25) "blood product derivative" WASTE: F/P - Red; E -Red MEDICATION WASTE Product Size: 25 gm Product Wasted: ___ gm Inactive 03/06/2018 [facility] Lasix Notes: (Same as: Lasix) MEDICATION WASTE Product Size: 40 mg Product Wasted: ___ mg Inactive 03/06/2018 [facility] sodium bicarbonate 8.4% Notes: (sodium bicarb 8.4% (1 mEq/ml) 50 ml syringe) Inactiv e 03/06/2018 [facility] Plavix Notes: (Same As: Plavix) No Longer Active 03/06/2018 [facility] Vancomycin 2001 mg: infuse ov er 2.5 hours For adult patients only: Round to nearest 250 mg per Medical Staff approval MEDICATION WASTE Product Size: 1000 mg Product Wasted: 0mg Inactive 03/06/2018 [facility] chlorhexidine gluconate 40 MG/ML Medicated Liquid Soap Notes: (Same As: Hibiclens) No Longer Active 03/06/2018 [facility] Lasix Notes: (Same as: Lasix) MEDICATION WASTE Product Size: 40 mg Product Wasted: ___ mg Inactive 03/06/2018 [facility] Ancef + sterile water 20 mL No ariane: (Same As: Ancef, Kefzol) MEDICATION WASTE Product Size: 1000 mg Product Wasted: _0__ mg No Longer Active 03/06/2018 [facility] Dopamine Notes: (Same as: Intr opin) Administer by either central venous catheter or peripherally-inserted central catheter (PICC) line. Final conc = 3.2 mg/ml. Premix solution. No Longer Active 03/06/2018 [facility] pantoprazole Notes: (Same as: Protonix) Inactive 03/05/2018 [facility] Sodium Chloride 0.9% IV 250 mL 250 mL, Rate: See order comments, Route: IV, Dosing Weight 56.8 kg, Total Volume: 250, Start date: 03/05/18 15:09:00 CDT, Duration: 30 day, Stop date: 04/04/18 15:08:00 CDT, 1.57, m2 No Longer Active 03/05/2018 [facility] Sodium Chloride 0.9% (Bolus) IV Route: IV, PRN, Dosing Weight 56.8 kg, Start date: 03/05/18 14:50:00 CDT, Duration: 30 day, Stop date: 04/04/18 14:49:00 CDT, PRN See Nurse's Notes Inactive 03/05/2018 [facility] 1/2 NS 1,000 mL 1,000 mL, Rate : 50 ml/hr, Infuse over: 20 hr, Route: IV, Dosing Weight 56.8 kg, Total Volume: 1,000, Start date: 03/05/18 14:48:00 CDT, Duration: 30 day, Stop date: 04/04/18 14:47:00 CDT, 1.57, m2 No Longer Active 03/05/2018 [facility] Stimate (ANES) Route: IV, Drug form: INJ, ONCE, Stop date: 03/05/18 13:30:00 CDT Inactive 03/05/2018 [facility] protamine (ANES) 10 mg Route: IV, Drug form: INJ, Start date: 03/05/18 12:34:00 CDT, Stop date: 03/05/18 13:34:00 CDT Inactive 03/05/2018 [facility] ocular lubricant Notes: (Same as: Lacri-Lube, Duratears Naturale, Artificial Tears, and Tears Again ) No Longer Active 03/05/2018 [facility] heparin (ANES) Route: IV, Drug form: INJ, ONCE, Stop date: 03/05/18 10:45:00 CDT Inactive 03/05/2018 [facility] tranexamic acid (ANES) Route: IV, Drug form: INJ, ONCE, Stop date: 03/05/18 10:45:00 CDT Inactive 03/05/2018 [facility] vancomycin (ANES) Route: IV, D rug form: INJ, ONCE, Stop date: 03/05/18 9:43:00 CDT Inactive 03/05/2018 [facility] midazolam (ANES) Route: IV, Dr ug form: SOLN, ONCE, Stop date: 03/05/18 9:43:00 CDT Inactive 03/05/2018 [facility] ceFAZolin (ANES) Route: IV, Dr ug form: INJ, ONCE, Stop date: 03/05/18 9:23:00 CDT Inactive 03/05/2018 [facility] propofol (ANES) Route: IV, Patel g form: INJ, ONCE, Stop date: 03/05/18 9:18:00 CDT Inactive 03/05/2018 [facility] lidocaine (ANES) Route: IV, Dr ug form: INJ, ONCE, Stop date: 03/05/18 9:18:00 CDT Inactive 03/05/2018 [facility] rocuronium (ANES) Route: IV, D rug form: INJ, ONCE, Stop date: 03/05/18 9:18:00 CDT Inactive 03/05/2018 [facility] fentaNYL (ANES) Route: IV, Patel g form: INJ, ONCE, Stop date: 03/05/18 9:18:00 CDT Inactive 03/05/2018 [facility] tranexamic acid (ANES) 100 mg Route: IV, Drug form: INJ, Start date: 03/05/18 9:00:00 CDT, Stop date: 03/05/18 10:00:00 CDT Inactive 03/05/2018 [facility] Famotidine Notes: (Same as: Pe pcid) Can be dilute in 5- 10cc NS IVP: Slow IV push over at least 2 minutes. Inactive 03/05/2018 [facility] chlorhexidine gluconate 1.2 MG/ML Mouthwash Notes: (Same As: Peridex) No Longer Active 03/05/2018 [facility] Lopressor Notes: (Same as: Lop ressor) No Longer Active 03/05/2018 [facility] Maxipime 1 gm, Route: IVPB, AB [id number], Dosing Weight 56.8, kg, (CrCl 30 - 49 ml/min), Start date: 03/05/18 9:00:00 CDT, Duration: 2 doses or times, Stop date: 03/05/18 21:00:00 CDT, ABX Indication: Surgical Prophylaxis Inactive 03/05/2018 [facility] Docusate Notes: (Same as: Cola ce) (Do Not Crush) Inactive 03/05/2018 [facility] Mupirocin 0.02 MG/MG Topical Ointment 1 appl, Route: NASAL, BID, Drug form: OINT, Start date: 03/05/18 9:00:00 CDT, Stop date: 03/09/18 17:00:00 CDT No Longe r Active 03/05/2018 [facility] clopidogrel Notes: (Same As: P lavix) Inactive 03/05/2018 [facility] Vancomycin 852 mg, Route: IVPB , Drug form: INJ, [id number], Dosing Weight 56.8, kg, Time Critical Medication, Start date: 03/05/18 9:00:00 CDT, Duration: 2 doses or times, Stop date: 03/05/18 21:00:00 CDT, ABX Ind ication: Surgical Prophylaxis Inactive 03/05/2018 [facility] chlorhexidine gluconate 1.2 MG/ML Mouthwash Notes: (Same As: Peridex) No Longer Active 03/05/2018 [facility] Magnesium Sulfate Notes: WASTE : F/P - Sink; E - Municipal Trash Bin No Longer Active 03/05/2018 [facility] Potassium Chloride Notes: (Isaiah e as: Potassium Chloride) No Longer Active 03/05/2018 [facility] Dextrose 50% Syringe 12.5 gm, 25 mL, Route: IVP, Drug Form: INJ, Dosing Weight 56.8, kg, PRN, PRN Blood Glucose Results, Start date: 03/05/18 8:49:00 CDT, Duration: 30 day, Stop date: 04/04/18 8:48:00 CDT No Longer Active 03/05/2018 [facility] Insulin regular 100 unit + Sodium Chlori de 0.9% (titrate) 99 mL Notes: (Same as: Humulin R and NovoLIN R ) WASTE: F/P - Black; E - Municipal Trash Bin (Do not shake) No Longer Active 03/05/2018 [facility] Norepinephrine Notes: Same as: Levophed. Administer by either central venous catheter or peripherally-inserted central catheter (PICC) line. Concentration: 0.032 mg / mL No Longer Active 03/05/2018 [facility] Epinephrine Notes: (Same as: A drenalin) [employer] - Injectable drug used as inhalation treatment. MEDICATION WASTE Product Size: 1 mg Product Wasted: ___ mg No Longer Active 03/05/2018 [facility] Phenylephrine Notes: (Same as: Nicho-Synephrine) No Longer Active 03/05/2018 [facility] PlasmaLyte A PH-7.4 250 mL Not es: WASTE: F/P - Sink; E - Municipal Trash Bin Inactive 03/05/2018 [facility] Nicardipine Notes: Same as: Ca rdene Concentration: (0.2 mg /1 ml ) No Longer Active 03/05/2018 [facility] 1/2 NS 250 mL 250 mL, Rate: 10 .42 ml/hr, Infuse over: 24 hr, Route: IV, Dosing Weight 56.8 kg, Total Volume: 250, Start date: 03/05/18 8:49:00 CDT, Stop date: 04/04/18 8:48:00 CDT, 1.57, m2 No Longer Active 03/05/2018 [facility] 1/2NS + KCL 20mEq/L 1000ml (Premix) 1,000 mL Notes: PREMIX IV - Do Not Alter WASTE: F/P - Sink; E - Municipal Trash Bin Inactive 03/05/2018 [facility] Morphine Notes: (Same as:MORPh ine Sulfate) No Longer Active 03/05/2018 [facility] Ondansetron Notes: (Same as: Tino robbins) MEDICATION WASTE Product Size: 4 mg Product Wasted: _0__ mg Inactive 03/05/2018 [facility] Nitroglycerin Notes: (Same as: Nitroquick, Nitrostat) "Do Not Crush" Sublingual tablet No Longer Active 03/05/2018 [facility] Acetaminophen Notes: Do not ex ceed 4 gm/day. (Same as: Tylenol) No Longer Active 03/05/2018 [facility] Acetaminophen 325 MG / Hydrocodone Norma trate 5 MG Oral Tablet Notes: (Same as: Stratton 325/5) Do not ex ceed 4gm/day of acetaminophen. No Longer Active 03/05/2018 [facility] Dextrose 50% Syringe 12.5 gm, 25 mL, Route: IVP, Drug Form: INJ, Dosing Weight 56.8, kg, PRN, PRN Blood Glucose Results, Start date: 03/05/18 8:45:00 CDT, Duration: 30 day, Stop date: 04/04/18 8:44:00 CDT Inactive 03/05/2018 [facility] Insulin regular 100 unit + Sodium Chlori de 0.9% (titrate) 99 mL Notes: (Same as: Humulin R and NovoLIN R ) WASTE: F/P - Black; E - Municipal Trash Bin (Do not shake) Inactive 03/05/2018 [facility] Sodium Chloride 0.9% (titrate) 250 mL 250 mL, Rate: To prime line and flush remaining blood products., Dosing Weight 56.8, kg, Route: IV, Total Volume: 250, Priority: Routine, Start Date: 03/05/18 8:45:00 CDT, Duration: 1 day, Stop date: 03/06/18 8:44:00 CDT, Replace Every: 24 hr Inactive 03/05/2018 [facility] Insulin regular (ANES) 1 unit Route: IV, Drug form: INJ, Start date: 03/05/18 8:40:00 CDT, Stop date: 03/05/18 9:40:00 CDT Inactive 03/05/2018 [facility] nitroglycerin (ANES) 400 microgram Route: IV, Drug form: INJ, Start date: 03/05/18 8:40:00 CDT, Stop date: 03/05/18 9:40:00 CDT Inactive 03/05/2018 [facility] Sodium Chloride 0.9% IV (ANES) 1000 mL Route: IV, Total Volume: 1,000, Start date: 03/05/18 8:23:00 CDT, Stop date: 03/05/18 9:23:00 CDT Inactive 03/05/2018 [facility] Phenylephrine = 65, Max Dose: 5 microgram/kg/min, Route: IV, Dosing Weight 56.8 kg, Total Volume: 250, Start date: 03/05/18 6:26:00 CD... Inactive 03/05/2018 [facility] Epinephrine = 65 mmHg, Max Dos e: 0.5 microgram/kg/min, Route: IV, Dosing Weight 56.8 kg, Total Volume: 250, Start date: 03/05/18 6:26:00 CDT... Inactive 03/05/2018 [facility] Norepinephrine Notes: Not for direct administration - DILUTE. Protect from light. (Same as:Levophed). Administer by either central venous catheter or peripherally-inserted central catheter (PICC) line. Inactive 03/05/2018 [facility] Lopressor Notes: (Same as: Lop ressor) Push over 2 minutes Inactive 03/05/2018 [facility] Insulin (Regular) additive 100 unit [0.1 unit/kg/hr] + NS 99 mL Notes: (Same as: Humulin R and NovoLIN R ) WASTE: F/P - Black; E - Municipal Trash Bin (Do not shake) Inactive 03/05/2018 [facility] Phenylephrine Notes: (Same as: Nicho-Synephrine) Inactive 03/05/2018 [facility] Epinephrine Notes: (Same as: A drenalin) [employer] - Injectable drug used as inhalation treatment. MEDICATION WASTE Product Size: 1 mg Product Wasted: ___ mg Inactive 03/05/2018 [facility] Sodium Chloride 0.9% (titrate) 250 mL 250 mL, Rate: To prime line and flush remaining blood products., Dosing Weight 58.182, kg, Route: IV, Total Volume: 250, Start Date: 03/04/18 14:18:00 CDT, Duration: 1 day, Stop date: 03/05/18 14:17:00 CDT, Replace Every: 24 hr No Longer Active 03/04/2018 [facility] Vancomycin 2001 mg: infuse ov er 2.5 hours For adult patients only: Round to nearest 250 mg per Medical Staff approval MEDICATION WASTE Product Size: 1000 mg Product Wasted: ___ mg No Longer Active 03/04/2018 [facility] Ancef + sterile water 20 mL No ariane: (Same As: Ancef, Kefzol) MEDICATION WASTE Product Size: 1000 mg Product Wasted: ___ mg No Longer Active 03/04/2018 [facility] [id number] 250 mL 250 mL, Rate: To prime line and flush remaining blood products., Route: IV, Dosing Weight 58.182 kg, Total Volume: 250, Priority: Routine, Start date: 03/04/18 12:35:00 CDT, Duration: 1 day, Stop date: 03/05/18 12:34:00 CDT, 1.59, m2 No Longer Active 03/04/2018 [facility] Insulin Lispro Notes: (Same as : Humalog ) Roll in palms of hands gently; Do not shake `vigorously. "Single Patient Use Only " WASTE: F/P - Black; E - Municipal Trash Bin Stable for 28 days at room temp erature. Expires in days from Date No Longer Active 03/03/2018 [facility] Nitroglycerin Notes: (Same as: Tridil) Final conc = 0.4 mg/ml. Premix bottle. No Longe r Active 03/01/2018 [facility] Sodium Chloride 0.9% (titrate) 250 mL 250 mL, Rate: To prime line and flush remaining blood products., Dosing Weight 58.182, kg, Route: IV, Total Volume: 250, Priority: Routine, Start Date: 03/01/18 9:26:00 CDT, Duration: 1 day, Stop date: 03/02/18 9:25:00 CDT, Replace Every: 24 hr No Longer Active 03/01/2018 [facility] Morphine 4 mg, Route: IVP, ONC E, Dosing Weight 58.182, kg, Start date: 03/01/18 9:12:00 CDT, Stop date: 03/01/18 9:12:00 CDT Inactive 03/01/2018 [facility] Amlodipine Notes: (Same as: No rvasc) No Longer Active 03/01/2018 [facility] Docusate Notes: (Same as: Cola ce) (Do Not Crush) No Longer Active 03/01/2018 [facility] Escitalopram Notes: (Same as: Lexapro) No Longer Active 03/01/2018 [facility] Protonix Notes: Tablet should not be chewed or crushed. (Same as: Protonix) No Longer Active 03/01/2018 [facility] Aspirin 81 MG Enteric Coated Tablet Notes: Do not crush or chew. (Same As: Ecotrin) No Longer Active 03/01/2018 [facility] Omeprazole 20 mg, Route: PO, D rug form: DRC, Daily, Dosing Weight 58.182, kg, Start date: 03/01/18 9:00:00 CDT, Duration: 30 day, Stop date: 03/30/18 9:00:00 CDT No Longer Active 03/01/2018 [facility] Insulin Glargine 100 UNT/ML Injectable Solution Notes: (Same as: Lantus) Do not hold insulin without contacting prescriber WASTE: F/P - Black; E - Municipal Trash Bin "single patient use only" No Longer Active 03/01/2018 [facility] Insulin Lispro Notes: (Same as : Humalog ) Roll in palms of hands gently; Do not shake `vigorously. "Single Patient Use Only " WASTE: F/P - Black; E - Municipal Trash Bin Stable for 28 days at room temp erature. Expires in days from Date No Longer Active 03/01/2018 [facility] Dextrose 50% Syringe 25 mL, Ro kay: IVP, Dosing Weight 58.182, kg, PRN, PRN Blood Glucose Results, Start date: 02/28/18 22:14:00 CDT, Duration: 30 day, Stop date: 03/30/18 22:13:00 CDT Inactive 03/01/2018 [facility] Glucagon 1 mg, Route: IM, PRN, Dosing Weight 58.182, kg, PRN Blood Glucose Results, Start date: 02/28/18 22:14:00 CDT, Duration: 30 day, Stop date: 03/30/18 22:13:00 CDT Inactive 03/01/2018 [facility] atorvastatin Notes: (Same as: Lipitor) No Longer Active 03/01/2018 [facility] carvedilol Notes: Give with fo od. (Same As: Coreg) No Longer Active 03/01/2018 [facility] Metoclopramide 5 MG Oral Tablet Notes: (Same as: Reglan) Take 30 min before meals No Longer Active 02/28/2018 [facility] Hydralazine Notes: (Same as: A presoline) Push over 5 minutes No Longer Active 02/28/2018 [facility] Melatonin Notes: (Same as: Priti atonin) No Longer Active 02/28/2018 [facility] Ondansetron Notes: (Same as: Tino robbins) MEDICATION WASTE Product Size: 4 mg Product Wasted: ___ mg No Longer Active 02/28/2018 [facility] Acetaminophen Notes: Do not ex ceed 4 gm/day. (Same as: Tylenol) No Longer Active 02/28/2018 [facility] Acetaminophen 325 MG / Hydrocodone Norma trate 5 MG Oral Tablet Notes: (Same as: Stratton 325/5) Do not ex ceed 4gm/day of acetaminophen. No Longer Active 02/28/2018 [facility] Morphine Notes: (Same as:MORPh ine Sulfate) No Longer Active 02/28/2018 [facility] Heparin 30 unit/kg Bolus (Heparin Dosing Weight) Route: IVP, PRN, 1,500 unit, 1.5 mL, Drug form: INJ, PRN, Heparin Protocol, Start date: 02/28/18 15:59:00 CDT Stop date: 03/30/18 15:58:00 CDT, 30 day No Longer Active 02/28/2018 [facility] Heparin 60 unit/kg Bolus (Heparin Dosing Weight) Route: IVP, PRN, 3,000 unit, 3 mL, Drug form: INJ, PRN, Heparin Protocol, Start date: 02/28/18 15:59:00 CDT Stop date: 03/30/18 15:58:00 CDT, 30 day No Longer Active 02/28/2018 [facility] Heparin - one time bolus for ACS 3,000 unit, 3 mL, Route: IVP, Drug form: INJ, ONCE, Dosing Weight 58.182, kg, Priority: STAT, Start date: 02/28/18 15:59:00 CDT, Stop date: 02/28/18 15:59:00 CDT Inactive 02/28/2018 [facility] heparin additive 25,000 unit [12 unit/kg /hr] + Premix Diluent Dextrose 5% 500 mL 500 mL, Rate: 12.14 ml/hr, Infuse over: 41.2 hr, Route: IV, Dosing Weight 50.6 kg, Total Volume: 500 mL, Start date: 02/28/18 15:59:00 CDT, Duration: 30 day, Stop date: 03/30/18 15:58:00 CDT, 1.48, m2 No Longer Active 02/28/2018 [facility] Nitroglycerin 0.02 MG/MG Topical Ointment Notes: 1 gram is approximately 1 inch of nitroglycerin ointment (20 mg NTG per gram) (Same as:Nitro-Bid) Inactive 02/28/2018 [facility] Fentanyl Notes: (Same as: Subl imaze) Preservative free. Inactive 02/28/2018 [facility] Nitroglycerin Notes: (Same as: Nitroquick, Nitrostat) "Do Not Crush" Sublingual tablet Inactive 02/28/2018 [facility] Aspirin Notes: Take with food. Inactive 02/28/2018 [facility] Aspirin 81 MG Enteric Coated Tablet 81 mg = 1 tab, PO, Daily, # 30 tab, 3 Refill(s), Pharmacy: [facility] [id number] Active 02/21/2018 [facility] pantoprazole 40 mg oral enteric coated tablet 40 mg = 1 tab, PO, Daily, # 30 tab, 0 Refill(s), Pharmacy: [facility] [id number] Active 02/21/2018 [facility] carvedilol 25 mg oral tablet 2 5 mg = 1 tab, PO, Q12H, # 60 tab, 0 Refill(s), Pharmacy: [facility] [id number] Active 02/21/2018 [facility] atorvastatin 40 mg oral tablet 40 mg = 1 tab, PO, Bedtime, # 30 tab, 0 Refill(s), Pharmacy: [facility] [id number] Active 02/21/2018 [facility] normal saline 0.9% IV 1,000 mL 1,000 mL, Rate: 70 ml/hr, Infuse over: 14.3 hr, Route: IV, Dosing Weight 56.932 kg, Total Volume: 1,000, Start date: 02/19/18 12:46:00 CDT, Duration: 30 day, Stop date: 03/21/18 12:45:00 CDT, 1.57, m2 No Longer Active 02/19/2018 [facility] Zofran Notes: (Same as: Zofran ) MEDICATION WASTE Product Size: 4 mg Product Wasted: ___ mg No Longer Active 02/19/2018 [facility] Midodrine Notes: (Same as:Proa matine) No Longer Active 02/18/2018 [facility] Octreotide Notes: (Same As: Sa ndoSTATIN). Refrigerate. MEDICATION WASTE Product Size: 100 microgram Product Wasted: _0_ microgram No Longer Active 02/18/2018 [facility] albumin human 25% intravenous solution Notes: Lot #: Mfg: (Same as: Plasbumin-25) "blood product derivative" WASTE: F/P - Red; E -Red MEDICATION WASTE Product Size: 25 gm Product Wasted: ___ gm Inactive 02/18/2018 [facility] Sodium Chloride 0.9% (titrate) 250 mL 250 mL, Rate: To prime line and flush remaining blood products., Dosing Weight 56.932, kg, Route: IV, Total Volume: 250, Priority: Routine, Start Date: 02/18/18 9:25:00 CDT, Duration: 1 day, Stop date: 02/19/18 9:24:00 CDT, Replace Every: 24 hr No Longer Active 02/18/2018 [facility] morphine Sulfate Notes: (Same as:MORPhine Sulfate) No Longer Active 02/17/2018 [facility] morphine Sulfate Notes: (Same as:MORPhine Sulfate) Inactive 02/17/2018 [facility] Sulfasalazine Notes: (Same As: Azulfidine) No Longer Active 02/16/2018 [facility] Sodium Bicarbonate Notes: "Dis solve tablet in a glass of water prior to oral administration. STOMACH WARNING: To avoid serious injury, do not take until tablet is completely dissolved. It is very important not to t jhony this product when overly full from food or drink." No Longer Active 02/16/2018 [facility] Omeprazole 20 mg, Route: PO, D rug form: DRC, Daily, Dosing Weight 56.932, kg, Start date: 02/16/18 9:00:00 CDT, Duration: 30 day, Stop date: 03/17/18 9:00:00 CDT No Longer Active 02/16/2018 [facility] Protonix Notes: Tablet should not be chewed or crushed. (Same as: Protonix) No Longer Active 02/16/2018 [facility] Insulin Glargine 100 UNT/ML Injectable Solution Notes: (Same as: Lantus) Do not hold insulin without contacting prescriber WASTE: F/P - Black; E - Municipal Trash Bin "single patient use only" No Longer Active 02/16/2018 [facility] Escitalopram Notes: (Same as: Lexapro) No Longer Active 02/16/2018 [facility] Amlodipine Notes: (Same as: No rvasc) No Longer Active 02/16/2018 [facility] atorvastatin Notes: (Same as: Lipitor) No Longer Active 02/16/2018 [facility] Metoclopramide 5 MG Oral Tablet Notes: (Same as: Reglan) Take 30 min before meals No Longer Active 02/15/2018 [facility] Nitroglycerin Notes: (Same as: Nitroquick, Nitrostat) "Do Not Crush" Sublingual tablet No Longer Active 02/15/2018 [facility] Sodium Chloride 0.9% IV 500 mL 500 mL, Rate: 50 ml/hr, Infuse over: 10 hr, Route: IV, Dosing Weight 56.932 kg, Total Volume: 500, Start date: 02/15/18 17:55:00 CDT, Duration: 10 hr, Stop date: 02/16/18 3:54:00 CDT, 1.57, m2 No Longer Active 02/15/2018 [facility] Sodium Chloride 0.9% (Bolus) IV 250 mL, 250 ml/hr, Infuse Over: 1 hr, Route: IV, 250, Drug form: INJ, ONCALL, Priority: Routine, Dosing Weight 56.932 kg, Start date: 02/15/18 16:00:00 CDT, Duration: 1 doses or times No Longer Active 02/15/2018 [facility] Sodium Chloride 0.9% IV 750 mL 750 mL, Rate: 75 ml/hr, Infuse over: 10 hr, Route: IV, Dosing Weight 56.932 kg, Total Volume: 750, Start date: 02/15/18 15:05:00 CDT, Duration: 24 hr, Stop date: 02/16/18 15:04:00 CDT, 1.57, m2 No Longer Active 02/15/2018 [facility] Coreg Notes: Give with food. ( Same As: Coreg) No Longer Active 02/15/2018 [facility] Saline Flush 0.9% Notes: (Same as: BD Posiflush) No Longer Active 02/15/2018 [facility] Heparin - one time bolus for ACS 3,000 unit, 3 mL, Route: IVP, Drug form: INJ, ONCE, Dosing Weight 56.932, kg, Priority: STAT, Start date: 02/15/18 8:02:00 CDT, Stop date: 02/15/18 8:02:00 CDT Inactive 02/15/2018 [facility] heparin additive 25,000 unit [12 unit/kg /hr] + Premix Diluent Dextrose 5% 500 mL 500 mL, Rate: 12.02 ml/hr, Infuse over: 41.6 hr, Route: IV, Dosing Weight 50.07 kg, Total Volume: 500 mL, Start date: 02/15/18 8:02:00 CDT, Duration: 30 day, Stop date: 03/17/18 8:01:00 CDT, 1.47, m2 No Longer Active 02/15/2018 [facility] Heparin 30 unit/kg Bolus (Heparin Dosing Weight) Route: IVP, PRN, 1,500 unit, 1.5 mL, Drug form: INJ, PRN, Heparin Protocol, Start date: 02/15/18 8:02:00 CDT Stop date: 03/17/18 8:01:00 CDT, 30 day No Longer Active 02/15/2018 [facility] Heparin 60 unit/kg Bolus (Heparin Dosing Weight) Route: IVP, PRN, 3,000 unit, 3 mL, Drug form: INJ, PRN, Heparin Protocol, Start date: 02/15/18 8:02:00 CDT Stop date: 03/17/18 8:01:00 CDT, 30 day No Longer Active 02/15/2018 [facility] Insulin Lispro Notes: (Same as : Humalog ) Roll in palms of hands gently; Do not shake `vigorously. "Single Patient Use Only " WASTE: F/P - Black; E - Municipal Trash Bin Stable for 28 days at room temp erature. Expires in days from Date Inactive 02/15/2018 [facility] Morphine 2 mg, 1 mL, Route: IV P, Drug form: SOLN, Q4H, Dosing Weight 56.932, kg, PRN Chest Pain, Start date: 02/15/18 2:27:00 CDT, Duration: 30 day, Stop date: 03/17/18 2:26:00 CDT No Longer Active 02/15/2018 [facility] Morphine Notes: (Same as:MORPh ine Sulfate) Inactive 02/15/2018 [facility] Acetaminophen 325 MG / Hydrocodone Norma trate 5 MG Oral Tablet [Stratton 5/325] Notes: (Same as: Strat[place] 325/5) Do not ex ceed 4gm/day of acetaminophen. Inactive 02/15/2018 [facility] Amlodipine 10 mg, PO, Daily, 0 Refill(s) Active 02/15/2018 [facility] Sodium Bicarbonate 650 mg, PO, BID, 0 Refill(s) Active 02/15/2018 [facility] lisinopril 20 mg oral tablet 2 0 mg = 1 tab, PO, Daily, # 90 tab, 0 Refill(s) No Longer Active 02/15/2018 [facility] Hydrochlorothiazide 25 mg, PO, Daily, 0 Refill(s) No Longer Active 02/15/2018 [facility] Aspirin 81 MG Enteric Coated Tablet Notes: Do not crush or chew. (Same As: Ecotrin) No Longer Active 02/15/2018 [facility] Insulin Lispro Notes: (Same as : Humalog ) Roll in palms of hands gently; Do not shake `vigorously. "Single Patient Use Only " WASTE: F/P - Black; E - Codexis Trash Bin Stable for 28 days at room temp erature. Expires in days from Date No Longer Active 02/15/2018 [facility] Dextrose 50% Syringe 25 gm, 50 mL, Route: IVP, Drug Form: INJ, Dosing Weight 58.182, kg, PRN, PRN Blood Glucose Results, Start date: 02/14/18 21:59:00 CDT, Duration: 30 day, Stop date: 03/16/18 21:58:00 CDT No Longer Active 02/15/2018 [facility] Glucagon 1 mg, Route: IM, Drug form: PDR/INJ, PRN, Dosing Weight 58.182, kg, PRN Blood Glucose Results, Start date: 02/14/18 21:59:00 CDT, Duration: 30 day, Stop date: 03/16/18 21:58:00 CDT No Longer Active 02/15/2018 [facility] Kayexalate Notes: (sodium poly styrene sulfonate 15 gm/60 ml MERRY) Shake well before use. (Same as: Kayexalate, SPS) Inactive 02/15/2018 [facility] Saline Flush 0.9% Notes: (Same as: BD Posiflush) No Longer Active 02/15/2018 [facility] Acetaminophen Notes: Do not ex ceed 4 gm/day. (Same as: Tylenol) No Longer Active 02/15/2018 [facility] Aspirin Notes: Take with food. Inactive 02/15/2018 [facility] Saline Flush 0.9% Notes: (Same as: BD Posiflush) No Longer Active 02/15/2018 [facility] Insulin regular 10 unit, Route : IVP, ONCE, Dosing Weight 58.182, kg, Priority: STAT, Start date: 02/14/18 19:33:00 CDT, Stop date: 02/14/18 19:33:00 CDT Inactive 02/15/2018 [facility] Calcium Gluconate 1 gm, Route: IVPB, ONCE, Dosing Weight 58.182, kg, Priority: STAT, Start date: 02/14/18 19:33:00 CDT, Stop date: 02/14/18 19:33:00 CDT Inactive 02/15/2018 [facility] Furosemide 40 mg, Route: IVP, ONCE, Dosing Weight 58.182, kg, Priority: STAT, Start date: 02/14/18 19:33:00 CDT, Stop date: 02/14/18 19:33:00 CDT Inactive 02/15/2018 [facility] Dextrose 50% Syringe 100 mL, R oute: IVP, Dosing Weight 58.182, kg, ONCE, STAT, Start date: 02/14/18 19:33:00 CDT, Stop date: 02/14/18 19:33:00 CDT Inactive 02/15/2018 [facility] Albuterol 0.83 MG/ML Inhalant Solution 20 mg, Route: NEB, ONCE, Dosing Weight 58.182, kg, Priority: STAT, Start date: 02/14/18 19:33:00 CDT, Stop date: 02/14/18 19:33:00 CDT Inactive 02/15/2018 [facility] Saline Flush 0.9% Notes: (Same as: BD Posiflush) No Longer Active 02/15/2018 [facility] Insulin Glargine 100 UNT/ML Injectable Solution 20 unit, Route: SUB-Q, Drug form: SOLN, Daily, Dosing Weight 58.182, kg, Start date: 02/10/18 9:00:00 CDT, Duration: 30 day, Stop date: 03/11/18 9:00:00 CDT No Longer Active 02/10/2018 [facility] Escitalopram Notes: (Same as: Lexapro) No Longer Active 02/10/2018 [facility] Omeprazole 20 mg, Route: PO, D rug form: DRC, Daily, Dosing Weight 58.182, kg, Start date: 02/10/18 9:00:00 CDT, Duration: 30 day, Stop date: 03/11/18 9:00:00 CDT No Longer Active 02/10/2018 [facility] Insulin Glargine 100 UNT/ML Injectable S olution [Lantus] Notes: (Same as: Lantus) Do not hold ins ulin without contacting prescriber WASTE: F/P - Black; E - Municipal Trash Bin "single patient use only" No Longer Active 02/10/2018 [facility] Rocephin Notes: (Same As: Vlad macedo). Use with 100 mL NS and infuse over 30 min MEDICATION WASTE Product Size: 1000 mg Product Wasted: ___ mg No Longer Active 02/10/2018 [facility] calcium gluconate + Sodium Chloride 0.9% IV 100 mL Notes: WASTE: F/P - Sink; E - Municipal Trash Bin Inactive 02/09/2018 [facility] Calcium Gluconate Notes: WASTE : F/P - Sink; E - Municipal Trash Bin Inactive 02/09/2018 [facility] Insulin regular Notes: (Same a s: Humulin R and NovoLIN R) WASTE: F/P - Black; E - Municipal Trash Bin (Do not shake) Inactive 02/09/2018 [facility] Dextrose 50% Syringe 25 gm, 50 mL, Route: IVP, Drug Form: INJ, Dosing Weight 57.045, kg, ONCE, Start date: 02/09/18 17:46:00 CDT, Stop date: 02/09/18 17:46:00 CDT Inactive 02/09/2018 [facility] Lasix Notes: (Same as: Lasix) MEDICATION WASTE Product Size: 40 mg Product Wasted: ___ mg Inactive 02/09/2018 [facility] Sodium Bicarbonate Notes: "Dis solve tablet in a glass of water prior to oral administration. STOMACH WARNING: To avoid serious injury, do not take until tablet is completely dissolved. It is very important not to t jhony this product when overly full from food or drink." No Longer Active 02/09/2018 [facility] Protonix Notes: Tablet should not be chewed or crushed. (Same as: Protonix) No Longer Active 02/09/2018 [facility] Kayexalate Notes: (sodium poly styrene sulfonate 15 gm/60 ml MERRY) Shake well before use. (Same as: Kayexalate, SPS) Inactive 02/09/2018 [facility] Metoclopramide 5 MG Oral Tablet Notes: (Same as: Reglan) Take 30 min before meals No Longer Active 02/09/2018 [facility] Aspirin 81 MG Enteric Coated Tablet Notes: Do not crush or chew. (Same As: Ecotrin) No Longer Active 02/09/2018 [facility] Saline Flush 0.9% Notes: (Same as: BD Posiflush) No Longer Active 02/09/2018 [facility] Insulin Glargine Notes: (Same as: Lantus) Do not hold insulin without contacting prescriber WASTE: F/P - Black; E - Municipal Trash Bin "single patient use only" No Longer Active 02/09/2018 [facility] atorvastatin Notes: (Same as: Lipitor) No Longer Active 02/09/2018 [facility] Insulin Glargine 100 UNT/ML Injectable S olution [Lantus] 20 unit, SUB-Q, Bedtime, # 10 mL, 3 Refill(s) No Longer Active 02/09/2018 [facility] Rocephin Notes: (Same As: Roce phin). Use with 100 mL NS and infuse over 30 min MEDICATION WASTE Product Size: 1000 mg Product Wasted: ___ mg Inactive 02/09/2018 [facility] carvedilol Notes: Give with fo od. (Same As: Coreg) No Longer Active 02/09/2018 [facility] Lasix Notes: (Same as: Lasix) MEDICATION WASTE Product Size: 40 mg Product Wasted: ___ mg No Longer Active 02/09/2018 [facility] lisinopril 20 mg oral tablet 2 0 mg = 1 tab, PO, Daily, # 30 tab, 0 Refill(s) No Longer Active 02/08/2018 [facility] Metoclopramide 5 MG Oral Tablet 5 mg = 0, PO, QID-Before Meals, PRN nausea and vomiting, # 40 tab, 0 Refill(s) Active 02/08/2018 [facility] predniSONE 10 mg oral tablet 1 0 mg = 1 tab, PO, Daily, # 30 tab, 3 Refill(s) Active 02/08/2018 [facility] escitalopram 10 mg oral tablet 10 mg = 1 tab, PO, Daily, # 30 tab, 0 Refill(s) Active 02/08/2018 [facility] sulfaSALAzine 500 mg oral tablet 500 mg = 1 tab, PO, BID, # 60 tab, 0 Refill(s) Active 02/08/2018 [facility] Sodium Bicarbonate 650 mg, PO, BID, 0 Refill(s) No Longer Active 02/08/2018 [facility] omeprazole 20 mg oral delayed release capsule 20 mg = 1 cap, PO, Daily, # 30 cap, 0 Refill(s) Active 02/08/2018 [facility] Insulin Lispro Notes: (Same as : Humalog ) Roll in palms of hands gently; Do not shake `vigorously. "Single Patient Use Only " WASTE: F/P - Black; E - Codexis Trash Bin Stable for 28 days at room temp erature. Expires in days from Date No Longer Active 02/08/2018 [facility] Glucagon 1 mg, Route: IM, Drug form: PDR/INJ, PRN, Dosing Weight 58.182, kg, PRN Blood Glucose Results, Start date: 02/08/18 18:25:00 CDT, Duration: 30 day, Stop date: 03/10/18 18:24:00 CDT No Longer Active 02/08/2018 [facility] Dextrose 50% Syringe 25 gm, 50 mL, Route: IVP, Drug Form: INJ, Dosing Weight 58.182, kg, PRN, PRN Blood Glucose Results, Start date: 02/08/18 18:25:00 CDT, Duration: 30 day, Stop date: 03/10/18 18:24:00 CDT No Longer Active 02/08/2018 [facility] Hydralazine Notes: (Same as: A presoline) Push over 5 minutes No Longer Active 02/08/2018 [facility] Saline Flush 0.9% Notes: (Same as: BD Posiflush) No Longer Active 02/08/2018 [facility] Morphine Notes: (Same as:MORPh ine Sulfate) No Longer Active 02/08/2018 [facility] Nitroglycerin Notes: (Same as: NitroAlice raitat) "Do Not Crush" Sublingual tablet No Longer Active 02/08/2018 [facility] Acetaminophen Notes: Do not ex ceed 4 gm/day. (Same as: Tylenol) No Longer Active 02/08/2018 [facility] Diphenhydramine 25 mg, 1 tab, Route: PO, Drug form: TAB, Bedtime, Dosing Weight 58.182, kg, PRN Insomnia, Start date: 02/08/18 18:21:00 CDT, Duration: 30 day, Stop date: 03/10/18 18:20:00 CDT No Longer Active 02/08/2018 [facility] Ondansetron Notes: (Same as: Tino robbins) No Longer Active 02/08/2018 [facility] Clonidine Hydrochloride 0.1 MG Oral Tablet 0.1 mg, Route: PO, Drug form: TAB, ONCE, Dosing Weight 68.182, kg, Start date: 02/08/18 17:26:00 CDT, Stop date: 02/08/18 17:26:00 CDT Inactive 02/08/2018 [facility] Nitroglycerin 0.02 MG/MG Topical Ointment 1 inch, Route: TOP, Dosing Weight 68.182, kg, ONCE, Start date: 02/08/18 17:26:00 CDT, Stop date: 02/08/18 17:26:00 CDT Inactive 02/08/2018 [facility] Aspirin Notes: Take with food. Inactive 02/08/2018 [facility] Nitroglycerin Notes: (Same as: Maribel Hutton) "Do Not Crush" Sublingual tablet Inactive 02/08/2018 [facility] Saline Flush 0.9% Notes: prese rvative free. No Longer Active 02/08/2018 [facility] Amoxicillin 875 MG / Clavulanate 125 MG Oral Tablet [Augmentin 875-mg] Notes: With food. (Same as: Augmentin 87 5) Inactive 01/31/2017 [facility] 120 ACTUAT Albuterol 0.1 MG/ACTUAT / Ipr atropium Joffre 0.02 MG/ACTUAT Metered Dose Inhaler [Combivent 20/100] 1 puff, INHALATION, QID, # 2 ea, 1 Refill(s) Active 01/31/2017 [facility] insulin detemir 100 units/mL subcutaneous solution 15 unit, SUB-Q, Bedtime, 0 Refill(s) Active 01/31/2017 [facility] thiamine 100 mg oral tablet 10 0 mg = 1 tab, PO, Daily, # 30 tab, 1 Refill(s) No Longer Active 01/31/2017 [facility] Furosemide 40 MG Oral Tablet [Lasix] 40 mg = 1 tab, PO, BID, # 60 tab, 1 Refill(s) Active 01/31/2017 [facility] Robitussin-AC oral syrup 5 mL, PO, Q4H, PRN Cough/Congestion, # 240 mL, 0 Refill(s) No Longer Active 01/31/2017 [facility] Amoxicillin 875 MG / Clavulanate 125 MG Oral Tablet [Augmentin 875-mg] 1 tab, PO, Q12H, with food or milk, # 20 tab, 0 Refill(s) No Longer Active 01/31/2017 [facility] Insulin, Aspart, Human 5 unit, SUB-Q, TID-Before Meals, 0 Refill(s) Active 01/31/2017 [facility] Furosemide 40 MG Oral Tablet [Lasix] Notes: (Same as: Lasix) May cause GI upset. Give with food or milk. No Longer Active 01/30/2017 [facility] Levemir Notes: Same as Levemir Do not hold insulin without contacting prescriber WASTE: F/P - Black; E - [employer] Trash Bin "single patient use only" No Longer Active 01/29/2017 [facility] Dilaudid 0.5 mg, 0.5 mL, Route : IVP, Drug form: INJ, Q4H, Dosing Weight 56.818, kg, PRN Pain Score 7-10, Start date: 01/27/17 20:08:00 CDT, Duration: 30 day, Stop date: 02/26/17 20:07:00 CDT No Longer Active 01/28/2017 [facility] Ondansetron Notes: (Same as: Tino robbins) MEDICATION WASTE Product Size: 4 mg Product Wasted: none No Longer Active 01/26/2017 [facility] Morphine Notes: (Same as:MORPh ine Sulfate) No Longer Active 01/26/2017 [facility] potassium chloride 20 mEq oral tablet, extended releas e Notes: (Same as: K-Dur 20) "Do Not Crush" With food and full glass of water Inactive 01/26/2017 [facility] ferrous sulfate Notes: Give wi th food. "Do Not Crush" No Longer Active 01/25/2017 [facility] cefepime Notes: (Same As: Pedro medina) MEDICATION WASTE Product Size: 1000 mg Product Wasted: ___ mg No Longer Active 01/25/2017 [facility] benzonatate Notes: (Same As: Shayy Roman) "Do Not Crush" No Longer Active 01/25/2017 [facility] aspirin 81 mg tablet, enteric coated Notes: Do not crush or chew. (Same As: Ecotrin) N o Longer Active 01/25/2017 [facility] Lasix Notes: (Same as: Lasix) MEDICATION WASTE Product Size: 40 mg Product Wasted: ___ mg No Longer Active 01/25/2017 [facility] Levemir Notes: Same as Levemir Do not hold insulin without contacting prescriber WASTE: F/P - Black; E - [employer] Trash Bin "single patient use only" No Longer Active 01/25/2017 [facility] Albuterol 0.833 MG/ML / Ipratropium Brom sha 0.167 MG/ML Inhalant Solution [DuoNeb] Notes: (Same as: Duoneb) No Longer Active 01/25/2017 [facility] NovoLog SUB-Q, TID-Before Meal s, 0 Refill(s) Active 01/25/2017 [facility] ferrous sulfate See Instructio ns, PO, 0 Refill(s) Active 01/25/2017 [facility] benzonatate 200 mg oral capsule 200 mg = 1 cap, PO, TID, # 30 cap, 0 Refill(s) Active 01/25/2017 [facility] NovoLog Notes: Roll in palms o f hands gently; Do not shake vigorously. (Same as: NovoLOG) "single patient use only" WASTE: F/P - Black; E - Municipal Trash Bin Stable for 28 days at room temperature. Expires in days from Date No Longer Active 01/24/2017 [facility] Zithromax Notes: (Same As: Zit hromax IV) No Longer Active 01/24/2017 [facility] Thiamine Notes: (Same As: Florinda min B1) No Longer Active 01/24/2017 [facility] Robitussin-AC oral syrup Notes : (Same As: Robitussin AC) No Longer Active 01/24/2017 [facility] Insulin, Aspart, Human Notes: Roll in palms of hands gently; Do not shake vigorously. (Same as: NovoLOG) "single patient use only" WASTE: F/P - Black; E - Municipal Trash Bin Stable for 28 days at room temperature. Expires in days from Date No Longer Active 01/24/2017 [facility] Dextrose 50% Syringe 25 gm, 50 mL, Route: IVP, Drug Form: INJ, Dosing Weight 50, kg, PRN, PRN Blood Glucose Results, Start date: 01/24/17 15:09:00 CDT, Duration: 30 day, Stop date: 02/23/17 15:08:00 CDT No Longer Active 01/24/2017 [facility] Glucagon 1 mg, Route: IM, Drug form: PDR/INJ, PRN, Dosing Weight 50, kg, PRN Blood Glucose Results, Start date: 01/24/17 15:09:00 CDT, Duration: 30 day, Stop date: 02/23/17 15:08:00 CDT No Longer Active 01/24/2017 [facility] sodium bicarbonate 8.4% Notes: (sodium bicarb 8.4% (1 mEq/ml) 50 ml syringe) Inactiv e 01/24/2017 [facility] Levofloxacin Notes: (Same as:Carlito evaqfrank) Inactive 01/24/2017 [facility] cefepime Notes: (Same As: Pedro medina) MEDICATION WASTE Product Size: 1000 mg Product Wasted: ___ mg Inactive 01/24/2017 [facility] Vancomycin 2001 mg: infuse ov er 2.5 hours MEDICATION WASTE Product Size: 1000 mg Product Wasted: ___ mg Inactive 01/24/2017 [facility] Zofran 4 mg, Route: IVP, Drug form: INJ, ONCE, Dosing Weight 50, kg, Priority: STAT, Start date: 01/24/17 13:03:00 CDT, Stop date: 01/24/17 13:03:00 CDT Inactive 01/24/2017 [facility] Furosemide Notes: (Same as: Tavia damon) MEDICATION WASTE Product Size: 40 mg Product Wasted: ___ mg Inactive 01/24/2017 [facility] Insulin regular 10 unit, Route : IVP, ONCE, Dosing Weight 50, kg, Priority: STAT, Start date: 01/24/17 11:38:00 CDT, Stop date: 01/24/17 11:38:00 CDT Inactive 01/24/2017 [facility] Zofran 4 mg, Route: IVP, Drug form: INJ, ONCE, Dosing Weight 50, kg, Priority: STAT, Start date: 01/24/17 11:12:00 CDT, Stop date: 01/24/17 11:12:00 CDT Inactive 01/24/2017 [facility] Sodium Chloride 0.154 MEQ/ML Injectable Solution 500 mL, 500 ml/hr, Infuse Over: 1 hr, Route: IV, ONCE, Priority: STAT, Dosing Weight 50 kg, Start date: 01/24/17 11:12:00 CDT, Duration: 1 doses or times, Stop date: 01/24/17 11:12:00 CDT Inactive 01/24/2017 [facility] Aspirin 324 mg, Route: CHEW, D rug form: CHEWTAB, ONCE, Dosing Weight 50, kg, Priority: STAT, Start date: 01/24/17 10:33:00 CDT, Stop date: 01/24/17 10:33:00 CDT Inactive 01/24/2017 [facility] Saline Flush 0.9% Notes: (Same as: BD Posiflush) No Longer Active 01/24/2017 [facility] meclizine 25 mg oral tablet 25 mg = 1 tab, PO, TID, PRN Dizziness, X 7 day, # 21 tab, 0 Refill(s) Active 01/18/2017 [facility] aspirin 81 mg tablet, enteric coated 81 mg = 1 tab, PO, Daily, # 100 tab, 0 Refill(s) Active 01/18/2017 [facility] amLODIPine 5 mg oral tablet 5 mg = 1 tab, PO, Daily, # 30 tab, 0 Refill(s) Active 01/18/2017 [facility] Sodium Chloride 0.154 MEQ/ML Injectable Solution 1,000 mL, Rate: 60 ml/hr, Infuse over: 16.7 hr, Route: IV, Dosing Weight 52.273 kg, Total Volume: 1,000, Start date: 01/17/17 14:54:00 CDT, Duration: 30 day, Stop date: 02/16/17 14:53:00 CDT No Longer Active 2017 [facility] Meclizine Notes: (Same as: Ant ivert) No Longer Active 2017 [facility] Insulin Glargine 100 UNT/ML Injectable Solution 20 unit, Route: SUB-Q, Drug form: SOLN, Daily, Dosing Weight 52.273, kg, Start date: 01/17/17 9:00:00 CDT, Duration: 30 day, Stop date: 02/15/17 9:00:00 CDT No Longer Active 2017 [facility] aspirin 81 mg tablet, enteric coated Notes: Do not crush or chew. (Same As: Ecotrin) N o Longer Active 01/16/2017 [facility] Hydralazine Notes: (Same as: A presoline) Push over 5 minutes No Longer Active 01/16/2017 [facility] Norvasc Notes: (Same as: Norva sc) No Longer Active 01/16/2017 [facility] insulin detemir Notes: EXPIRES 24 HRS AFTER PREP TIME AT ROOM TEMP No Longer Active 01/16/2017 [facility] Insulin, Aspart, Human Notes: Roll in palms of hands gently; Do not shake vigorously. (Same as: NovoLOG) "single patient use only" WASTE: F/P - Black; E - Municipal Trash Bin Stable for 28 days at room temperature. Expires in days from Date No Longer Active 01/16/2017 [facility] Dextrose 50% Syringe 12.5 gm, 25 mL, Route: IVP, Drug Form: INJ, Dosing Weight 52.273, kg, PRN, PRN Blood Glucose Results, Start date: 01/16/17 9:50:00 CDT, Duration: 30 day, Stop date: 02/15/17 9:49:00 CDT No Longer Active 01/16/2017 [facility] Glucagon 1 mg, Route: IM, Drug form: PDR/INJ, PRN, Dosing Weight 52.273, kg, PRN Blood Glucose Results, Start date: 01/16/17 9:50:00 CDT, Duration: 30 day, Stop date: 02/15/17 9:49:00 CDT No Longer Active 01/16/2017 [facility] Streptococcus pneumoniae serotype 1 caps ular antigen diphtheria [id number] protein conjugate vaccine / Streptococcus pneumoniae serotype 14 capsular antigen diphtheria [id number] protein conjugate vaccine / Streptococcus pneumoniae serotype 18C capsular antigen d Notes: Lightly roll vial (DO NOT SHAKE) before administration. (Same as: Prevnar 13) Inactive 01/16/2017 [facility] influenza virus vaccine, inactivated Notes: (Same as: Fluzone Quadrivalent, Fluarix Quadrivalent) For 3 years of age and older (0.5 mL IM) Shake well before use Inactive 01/16/2017 [facility] Rocephin Notes: (Same As: Vlad macedo). Use with 100 mL NS and infuse over 30 min MEDICATION WASTE Product Size: 1000 mg Product Wasted: ___ mg No Longer Active 01/16/2017 [facility] Acetaminophen 325 MG / Hydrocodone Norma trate 5 MG Oral Tablet Notes: (Same as: Stratton 325/5) Do not ex ceed 4gm/day of acetaminophen. No Longer Active 01/16/2017 [facility] Ondansetron Notes: (Same as: Tino robbins) MEDICATION WASTE Product Size: 4 mg Product Wasted: ___ mg No Longer Active 01/16/2017 [facility] Sodium Chloride 0.154 MEQ/ML Injectable Solution 1,000 mL, Rate: 100 ml/hr, Infuse over: 10 hr, Route: IV, Dosing Weight 52.273 kg, Total Volume: 1,000, Start date: 01/15/17 21:57:00 CDT, Duration: 30 day, Stop date: 02/14/17 21:56:00 CDT No Longer Active 01/16/2017 [facility] Saline Flush 0.9% Notes: (Same as: BD Posiflush) No Longer Active 01/16/2017 [facility] Tylenol Notes: Do not exceed 4 gm/day. (Same as: Tylenol) Inactive 01/15/2017 [facility] Sodium Chloride 0.154 MEQ/ML Injectable Solution 1,000 mL, 1,000 ml/hr, Infuse Over: 1 hr, Route: IV, 1,000, Drug form: INJ, ONCE, Priority: STAT, Dosing Weight 52.273 kg, Start date: 01/15/17 16:07:00 CDT, Duration: 1 doses or times, Stop date: 01/15/17 16:07:00 CDT Inactive 01/15/2017 [facility] Saline Flush 0.9% Notes: (Same as: BD Posiflush) No Longer Active 01/15/2017 [facility] Metformin hydrochloride 500 MG Oral Tablet Notes: (Same as: Glucophage) Take with meal Inactive 02/20/2016 [facility] Acetaminophen 325 MG / Hydrocodone Norma trate 5 MG Oral Tablet [Stratton 5/325] 1 tab, PO, Q6H, PRN Pain Score 4-6, # 30 tab, 0 Refill(s) Active 02/20/2016 [facility] Lidocaine Hydrochloride 0.05 MG/MG Transdermal Patch 1 patch, TOP, Daily, # 30 patch, 0 Refill(s) Active 02/20/2016 [facility] nt Metformin hydrochloride 500 MG Oral Tablet 500 mg = 1 tab, PO, BID, # 60 tab, 0 Refill(s) Active 02/20/2016 [facility] nt insulin glargine 100 units/mL subcutaneous solution 20 unit, SUB-Q, Daily, # 10 mL, 0 Refill(s) Active 02/20/2016 [facility] nter Lantus Notes: Same as Lantus S olostar PEN Do not hold insulin without contacting prescriber "single patient use only" WASTE: F/P - Black; E - Municipal Trash Bin Stable for 28 days at room temperature. Expires in days from Date Inactive 02/20/2016 [facility] nt remove patch Notes: Remove pat ch 12 hours after application each day. No Longe r Active 02/19/2016 [facility] nter Pneumovax 23 Notes: (Same as: Pneumovax 23) Refrigerate Inactive 02/18/2016 [facility] Lidocaine Hydrochloride 0.05 MG/MG Transdermal Patch Notes: Apply only once for up to 12 hours in a 24-hour period (12 hours on and 12 hours off). (Same as: Lidoderm) "Remove old patch before application of new patch" No Longer Active 02/18/2016 [facility] Lisinopril Notes: (Same as: Pr inivil, Zestril) No Longer Active 02/18/2016 [facility] Saline Flush 0.9% Notes: (Same as: BD Posiflush) No Longer Active 02/18/2016 [facility] pneumococcal capsular polysaccharide typ e 1 vaccine / pneumococcal capsular polysaccharide type 10A vaccine / pneumococcal capsular polysaccharide type 11A vaccine / pneumococcal capsular polysaccharide type 12F vaccine / pneumococcal capsular polysacchar Notes: (Same as: Pneumovax 23) Refrigerate Inactive 02/18/2016 [facility] Acetaminophen 325 MG / Hydrocodone Norma trate 5 MG Oral Tablet [Stratton 5/325] Notes: (Same as: Stratton 325/5) Do not ex ceed 4gm/day of acetaminophen. No Longer Activ e 02/18/2016 [facility] Sodium Chloride 0.154 MEQ/ML Injectable Solution 1,000 mL, Rate: 125 ml/hr, Infuse over: 8 hr, Route: IV, Dosing Weight 46.364 kg, Total Volume: 1,000, Start date: 02/18/16 0:22:00 CDT, Duration: 30 day, Stop date: 03/19/16 0:21:00 CDT No Longer Active 02/18/2016 [facility]ter Lantus 50 unit, SUB-Q, Bedtime , 0 Refill(s) No Longer Active 02/18/2016 [facility] Humalog 30units, SUB-Q, Breakf ast, 0 Refill(s) No Longer Active 02/18/2016 [facility] Sodium Chloride 0.154 MEQ/ML Injectable Solution 125 mL, 125 ml/hr, Infuse Over: 1 hr, Route: IV, 125, Drug form: INJ, ONCE, Priority: STAT, Dosing Weight 52.273 kg, Start date: 02/17/16 21:43:00 CDT, Duration: 1 doses or times, Stop date: 02/17/16 21:43:00 CDT No Longer Active 02/18/2016 [facility] Insulin, Aspart, Human Notes: Roll in palms of hands gently; Do not shake vigorously. (Same as: NovoLOG) "single patient use only" WASTE: F/P - Black; E - Municipal Trash Bin Stable for 28 days at room temperature. Expires in days from Date No Longer Active 02/18/2016 [facility] Dextrose 50% Syringe 25 gm, 50 mL, Route: IVP, Drug Form: INJ, Dosing Weight 52.273, kg, PRN, PRN Blood Glucose Results, Start date: 02/17/16 21:22:00 CDT, Duration: 30 day, Stop date: 03/18/16 21:21:00 CDT No Longer Active 02/18/2016 [facility] Glucagon 1 mg, Route: IM, Drug form: PDR/INJ, PRN, Dosing Weight 52.273, kg, PRN Blood Glucose Results, Start date: 02/17/16 21:22:00 CDT, Duration: 30 day, Stop date: 03/18/16 21:21:00 CDT No Longer Active 02/18/2016 [facility] Saline Flush 0.9% Notes: (Same as: BD Posiflush) No Longer Active 02/18/2016 [facility] Morphine Notes: (Same as:MORPh ine Sulfate) No Longer Active 02/18/2016 [facility] Ondansetron Notes: (Same as: Tino robbins) MEDICATION WASTE Product Size: 4 mg Product Wasted: 0 mg No Longer Active 02/18/2016 [facility] BD Normal Saline Flush Notes: (Same as: BD Posiflush) No Longer Active 02/18/2016 [facility] Dilaudid Notes: Same as: Dilau did Inactive 02/17/2016 [facility] Isolyte S PH-7.4 (Bolus) IV No ariane: (Same as: Isolyte S PH 7.4) No Longer Active 02/17/2016 [facility] Insulin regular 60 units) W ASTE: F/P - Black; E - Municipal Trash Bin Stable for 28 days at room temperature Expires in days from Date Inactive 02/17/2016 [facility] nter Morphine 4 mg, Route: IVP, Patel g form: INJ, ONCE, Dosing Weight 52.273, kg, Priority: STAT, Start date: 02/17/16 16:18:00 CDT, Stop date: 02/17/16 16:18:00 CDT Inactive 02/17/2016 [facility] Insulin regular 60 units) W ASTE: F/P - Black; E - Municipal Trash Bin Stable for 28 days at room temperature Expires in days from Date Inactive 02/17/2016 [facility] nter Isolyte S PH-7.4 (Bolus) IV No ariane: (Same as: Isolyte S PH 7.4) Inactive 02/17/2016 [facility] Nitroglycerin 0.4 MG Sublingual Tablet Notes: (Same as:Nitroquick, Nitrostat) "Do Not Crush" Sublingual tablet Inactive 02/17/2016 [facility] Nitroglycerin 0.02 MG/MG Topical Ointment Notes: 1 gram is approximately 1 inch of nitroglycerin ointment (20 mg NTG per gram) (Same as:Nitro-Bid) Inactive 02/17/2016 [facility] Nitroglycerin 0.4 mg, Route: S L, ONCE, Dosing Weight 52.273, kg, Start date: 02/17/16 14:23:00 CDT, Stop date: 02/17/16 14:23:00 CDT Inactive 02/17/2016 [facility] Isolyte S PH-7.4 (Bolus) IV No ariane: (Same as: Isolyte S PH7.4) Inactive 02/17/2016 [facility] Morphine Notes: (Same as:MORPh ine Sulfate) Inactive 02/17/2016 [facility] Aspirin 324 mg, 4 tab, Route: PO, Drug form: CHEWTAB, ONCE, Dosing Weight 52.273, kg, Priority: STAT, Start date: 02/17/16 14:01:00 CDT, Stop date: 02/17/16 14:01:00 CDT Inactive 02/17/2016 [facility] nter Saline Flush 0.9% Notes: (Same as: BD Posiflush) No Longer Active 02/17/2016 [facility] Ibuprofen 400 MG Oral Tablet 4 00 mg = 1 tab, PO, Q4H, Pain, # 10 tab, 0 Refill(s) Active 07/19/2014 [facility] Diazepam 2 MG Oral Tablet [Valium] 2 mg = 1 tab, PO, QID, muscle spasm, # 7 tab, 0 Refill(s) Active 07/19/2014 [facility] Insulin, Regular, Pork Notes: (Same as: Humulin R and NovoLIN R) (Do not shake) No Longer Active 07/19/2014 [facility] Sodium Chloride 0.154 MEQ/ML Injectable Solution 1,000 mL, 1,000 ml/hr, Infuse Over: 1 hr, Route: IV, 1,000, Drug form: INJ, ONCE, Priority: STAT, Dosing Weight 52.273 kg, Start date: 07/18/14 22:27:00, Duration: 1 doses or times, Stop date: 07/18/14 22:27:00 Inactive 07/19/2014 [facility] Ibuprofen 600 mg, Route: PO, D rug form: TAB, ONCE, Dosing Weight 52.273, kg, Priority: STAT, Start date: 07/18/14 21:27:00, Stop date: 07/18/14 21:27:00 Inactive 07/19/2014 [facility] Valium 5 mg, Route: PO, ONCE, Dosing Weight 52.273, kg, Priority: STAT, Start date: 07/18/14 21:27:00, Stop date: 07/18/14 21:27:00 Inactive 07/19/2014 [facility] Allergies, Adverse Reactions, Alerts Substance Category Reaction Severity Reaction type Status Date Reported Comments Source No Known Medication Allergies Assertion Drug aller gy [facility] Immunizations Immunization Date Given Site Status Last Updated Comments Source pneumococcal 13-valent vaccine 01/16/2017 [facility], [facility] 01/16/2017 Right deltoid completed [facility] pneumococcal 23-valent vaccine 02/18/2016 Left Deltoid completed [facility] Results Order Name Results Value Reference Range Date Interpretation Comments Source CHEM PANEL Glucose Lvl 145 70 - 99 06/07/2020 [facility] CHEM PANEL BUN 32 7 - 22 06/07/2020 [facility] CHEM PANEL Creatinine Lvl 7.03 0.50 - 1.40 06/07/2020 [facility] CHEM PANEL Sodium Lvl 135 135 - 145 06/07/2020 [facility] CHEM PANEL Potassium Lvl 3.9 3.5 - 5.1 06/07/2020 [facility] CHEM PANEL Chloride Lvl 99 95 - 109 06/07/2020 [facility] CHEM PANEL CO2 28 24 - 32 06/07/2020 [facility] CHEM PANEL Calcium Lvl 8.9 8.5 - 10.5 06/07/2020 [facility] CHEM PANEL AGAP 11.9 10.0 - 20.0 06/07/2020 [facility] CHEM PANEL eGFR 5 06/07/2020 Result [...] should be multiplied by the estimated BMI. [facility] HEMATOLOGY WBC 5.0 3.7 - 10.4 06/07/2020 [facility] HEMATOLOGY RBC 3.44 4.20 - 5.40 06/07/2020 [facility] HEMATOLOGY Hgb 10.8 12.0 - 16.0 06/07/2020 [facility] HEMATOLOGY Hct 33.0 36.0 - 48.0 06/07/2020 [facility] HEMATOLOGY MCV 95.9 80.0 - 98.0 06/07/2020 [facility] HEMATOLOGY MCH 31.5 27.0 - 31.0 06/07/2020 [facility] HEMATOLOGY MCHC 32.8 32.0 - 36.0 06/07/2020 [facility] HEMATOLOGY RDW 14.4 11.5 - 14.5 06/07/[address] [facility] Platelet 147 133 - 450 06/07/[address] [facility] MPV 8.4 7.4 - 10.4 06/07/[address] [facility] Segs 51.1 45.0 - 75.0 06/07/2020 [facility] HEMATOLOGY Lymphocytes 25.1 20.0 - 40.0 06/07/2020 [facility] HEMATOLOGY Monocytes 11.4 2.0 - 12.0 06/07/2020 [facility] HEMATOLOGY Eosinophils 11.8 0.0 - 4.0 06/07/2020 [facility] HEMATOLOGY Basophils 0.6 0.0 - 1.0 06/07/2020 [facility] HEMATOLOGY Neutrophils # 2.6 1.5 - 8.1 06/07/2020 [facility] HEMATOLOGY Lymphocytes # 1.3 1.0 - 5.5 06/07/2020 [facility] HEMATOLOGY Monocytes # 0.6 0.0 - 0.8 06/07/2020 [facility] HEMATOLOGY Eosinophils # 0.6 0.0 - 0.5 06/07/2020 [facility] ENDOCRINOLOGY Prolactin Lvl 16 .2 06/04/2020 Result Comment: Reference Ra nge
Females
Non- 3.0-30.0
10.0-209.0
Postmenopausal 2.0-20.0

Lab test performed by:
[facility]
[address]
[place] [address]
GIANNA MCPHERSON MD [facility] CARDIAC ENZYMES Troponin-I <0.02 0.00 - 0.40 06/04/2020 [facility] CHEM PANEL Magnesium Lvl 2.4 1.8 - 2.4 06/03/2020 [facility] CHEM PANEL Phosphorus 2.8 2.5 - 4.5 06/03/2020 [facility] CHEM PANEL Glucose Lvl 72 70 - 99 06/02/2020 [facility] CHEM PANEL BUN 34 7 - 22 06/02/2020 [facility] CHEM PANEL Creatinine Lvl 5.25 0.50 - 1.40 06/02/2020 [facility] CHEM PANEL Sodium Lvl 139 135 - 145 06/02/2020 [facility] CHEM PANEL Potassium Lvl 4.4 3.5 - 5.1 06/02/2020 [facility] CHEM PANEL Chloride Lvl 101 95 - 109 06/02/2020 [facility] CHEM PANEL CO2 30 24 - 32 06/02/2020 [facility] CHEM PANEL Calcium Lvl 9.1 8.5 - 10.5 06/02/2020 [facility] CHEM PANEL Total Protein 8.4 6.4 - 8.4 06/02/2020 [facility] CHEM PANEL Albumin Lvl 3.5 3.5 - 5.0 06/02/2020 [facility] CHEM PANEL ALT 31 0 - 65 06/02/2020 [facility] CHEM PANEL AST 50 0 - 37 06/02/2020 [facility] CHEM PANEL Alk Phos 146 39 - 136 06/02/2020 [facility] CHEM PANEL Bili Total 0.8 0.2 - 1.3 06/02/2020 [facility] CHEM PANEL AGAP 12.4 10.0 - 20.0 06/02/2020 [facility] CHEM PANEL B/C Ratio 6 6 - 25 06/02/2020 [facility] CHEM PANEL Globulin 4.9 2.7 - 4.2 06/02/2020 [facility] CHEM PANEL A/G Ratio 0.7 0.7 - 1.6 06/02/2020 [facility] CHEM PANEL eGFR 8 06/02/2020 Result [...] should be multiplied by the estimated BMI. [facility] HEMATOLOGY WBC 5.5 3.7 - 10.4 06/02/2020 [facility] HEMATOLOGY RBC 3.40 4.20 - 5.40 06/02/2020 [facility] HEMATOLOGY Hgb 11.0 12.0 - 16.0 06/02/2020 [facility] HEMATOLOGY Hct 32.9 36.0 - 48.0 06/02/2020 [facility] HEMATOLOGY MCV 96.6 80.0 - 98.0 06/02/2020 [facility] HEMATOLOGY MCH 32.4 27.0 - 31.0 06/02/2020 [facility] HEMATOLOGY MCHC 33.5 32.0 - 36.0 06/02/2020 [facility] HEMATOLOGY RDW 14.6 11.5 - 14.5 06/02/2020 [facility] HEMATOLOGY Platelet 162 133 - 450 06/02/2020 [facility] HEMATOLOGY MPV 7.6 7.4 - 10.4 06/02/[address] [facility] Segs 61.9 45.0 - 75.0 06/02/2020 [facility] HEMATOLOGY Lymphocytes 19.9 20.0 - 40.0 06/02/2020 [facility] HEMATOLOGY Monocytes 10.0 2.0 - 12.0 06/02/2020 [facility] HEMATOLOGY Eosinophils 7.6 0.0 - 4.0 06/02/2020 [facility] HEMATOLOGY Basophils 0.6 0.0 - 1.0 06/02/[address] [facility] Neutrophils # 3.4 1.5 - 8.1 06/02/[address] [facility] Lymphocytes # 1.1 1.0 - 5.5 06/02/[address] [facility] Monocytes # 0.6 0.0 - 0.8 06/02/2020 [facility] HEMATOLOGY Eosinophils # 0.4 0.0 - 0.5 06/02/2020 [facility] IMMUNOLOGY RPR Non R eactive (06/02/20 8:43 AM) Non Reactive 06/02/2020 [facility] CHEM PANEL Glucose Lvl 67 70 - 99 06/01/2020 [facility] CHEM PANEL BUN 13 7 - 22 06/01/2020 [facility] CHEM PANEL Creatinine Lvl 3.20 0.50 - 1.40 06/01/2020 [facility] CHEM PANEL Sodium Lvl 140 135 - 145 06/01/2020 [facility] CHEM PANEL Potassium Lvl 3.9 3.5 - 5.1 06/01/2020 [facility] CHEM PANEL Chloride Lvl 102 95 - 109 06/01/2020 [facility] CHEM PANEL CO2 31 24 - 32 06/01/2020 [facility] CHEM PANEL AGAP 10.9 10.0 - 20.0 06/01/2020 [facility] CHEM PANEL Calcium Lvl 9.0 8.5 - 10.5 06/01/2020 [facility] CHEM PANEL eGFR 14 06/01/2020 Result [...] should be multiplied by the estimated BMI. [facility] WBC 6.2 3.7 - 10.4 06/01/[address] [facility] RBC 3.52 4.20 - 5.40 06/01/[address] [facility] Hgb 11.5 12.0 - 16.0 06/01/[address] [facility] Hct 34.2 36.0 - 48.0 06/01/[address] [facility] MCV 97.2 80.0 - 98.0 06/01/[address] [facility] MCH 32.6 27.0 - 31.0 06/01/[address] [facility] MCHC 33.5 32.0 - 36.0 06/01/[address] [facility] RDW 14.7 11.5 - 14.5 06/01/[address] [facility] Platelet 144 133 - 450 06/01/[address] [facility] MPV 7.7 7.4 - 10.4 06/01/[address] [facility] Segs 61.3 45.0 - 75.0 06/01/[address] [facility] Lymphocytes 20.1 20.0 - 40.0 06/01/[address] [facility] Monocytes 11.3 2.0 - 12.0 06/01/[address] [facility] Eosinophils 6.8 0.0 - 4.0 06/01/[address] [facility] Basophils 0.5 0.0 - 1.0 06/01/[address] [facility] Neutrophils # 3.8 1.5 - 8.1 06/01/[address] [facility] Lymphocytes # 1.2 1.0 - 5.5 06/01/[address] [facility] Monocytes # 0.7 0.0 - 0.8 06/01/[address] [facility] Eosinophils # 0.4 0.0 - 0.5 06/01/2020 [facility] IMMUNOLOGY Hep Bs Ag Negat zaria *NA* (05/31/20 12:10 PM) Negative 05/31/2020 [facility] CARDIAC ENZYMES Troponin-I <0.02 0.00 - 0.40 05/31/2020 [facility] CHEM PANEL Total Protein 8.4 6.4 - 8.4 05/31/2020 [facility] CHEM PANEL Albumin Lvl 3.5 3.5 - 5.0 05/31/2020 [facility] CHEM PANEL ALT 25 0 - 65 05/31/2020 [facility] CHEM PANEL AST 40 0 - 37 05/31/2020 [facility] CHEM PANEL Alk Phos 136 39 - 136 05/31/2020 [facility] CHEM PANEL Bili Total 0.7 0.2 - 1.3 05/31/2020 [facility] CHEM PANEL B/C Ratio 6 6 - 25 05/31/2020 [facility] CHEM PANEL Globulin 4.9 2.7 - 4.2 05/31/2020 [facility] CHEM PANEL A/G Ratio 0.7 0.7 - 1.6 05/31/2020 [facility] CHEM PANEL Ammonia 21.0 <=45.0 uMol/L 05/31/2020 [facility] DRUG SCREEN U Amph Scr Nega tive *NA* (05/31/20 8:32 AM) Negative 05/31/2020 [facility] DRUG SCREEN U Fariha Scr Nega tive *NA* (05/31/20 8:32 AM) Negative 05/31/2020 [facility] DRUG SCREEN U Benzodiaz Scr Nega tive *NA* (05/31/20 8:32 AM) Negative 05/31/2020 [facility] DRUG SCREEN U Cocaine Scr Nega tive *NA* (05/31/20 8:32 AM) Negative 05/31/2020 [facility] DRUG SCREEN U Cannab Scr Nega tive *NA* (05/31/20 8:32 AM) Negative 05/31/2020 [facility] DRUG SCREEN U Opiate Scr Nega tive *NA* (05/31/20 8:32 AM) Negative 05/31/2020 [facility] DRUG SCREEN U Phencyclidine Scr Nega tive *NA* (05/31/20 8:32 AM) Negative 05/31/2020 [facility] DRUG SCREEN UDS Note See Note *NA* (05/31/20 8:32 AM) 05/31/2020 [facility] HEMATOLOGY PT 14.4 12.0 - 14.7 05/31/2020 [facility] HEMATOLOGY INR 1.11 0.85 - 1.17 05/31/2020 [facility] HEMATOLOGY PTT 31.2 22.9 - 35.8 05/31/2020 [facility] SPECIAL CHEMISTRY Hgb A1C <3.5 % <=5.6 % 05/31/2020 [facility] TOXICOLOGY Ethanol Lvl <3 05/31/2020 [facility] TOXICOLOGY Etoh (%) <0.003 05/31/2020 [facility] URINE AND STOOL UA Color Yellow *NA* (05/31/20 8:32 AM) Yellow 05/31/2020 [facility] URINE AND STOOL UA Turbidity Clear (05/31/20 8:32 AM) Clear 05/31/2020 [facility] URINE AND STOOL UA Spec Grav 1.015 <=1.030 05/31/2020 [facility] URINE AND STOOL UA pH 8.5 5.0 - 8.0 05/31/2020 [facility] URINE AND STOOL UA Protein 100 mg/dL Negative mg/dL 05/31/2020 [facility] URINE AND STOOL UA Glucose Negative (05/31/20 8:32 AM) Negative 05/31/2020 [facility] URINE AND STOOL UA Ketones Negative *NA* (05/31/20 8:32 AM) Negative 05/31/2020 [facility] URINE AND STOOL UA Bili Negative *NA* (05/31/20 8:32 AM) Negative 05/31/2020 [facility] URINE AND STOOL UA Blood Negative (05/31/20 8:32 AM) Negative 05/31/2020 [facility] URINE AND STOOL UA Urobilinogen 0.2 0.1 - 1.0 05/31/2020 [facility] URINE AND STOOL UA Nitrite Negative (05/31/20 8:32 AM) Negative 05/31/2020 [facility] URINE AND STOOL UA Leuk Est Negative (05/31/20 8:32 AM) Negative 05/31/2020 [facility] URINE AND STOOL UA Sq Epi None Seen (05/31/20 8:32 AM) Few 05/31/2020 [facility] HEMATOLOGY Segs 65.7 45.0 - 75.0 05/24/2020 [facility] HEMATOLOGY Lymphocytes 20.1 20.0 - 40.0 05/24/2020 [facility] HEMATOLOGY Monocytes 9.2 2.0 - 12.0 05/24/2020 [facility] HEMATOLOGY Eosinophils 4.5 0.0 - 4.0 05/24/2020 [facility] HEMATOLOGY Basophils 0.5 0.0 - 1.0 05/24/2020 [facility] HEMATOLOGY Neutrophils # 4.9 1.5 - 8.1 05/24/2020 [facility] HEMATOLOGY Lymphocytes # 1.5 1.0 - 5.5 05/24/2020 [facility] HEMATOLOGY Monocytes # 0.7 0.0 - 0.8 05/24/2020 [facility] HEMATOLOGY Eosinophils # 0.3 0.0 - 0.5 05/24/[address] [facility] Macrocyte 1+ *ABN* (05/24/20 4:28 AM) None Seen 05/24/2020 [facility] HEMATOLOGY WBC 7.4 3.7 - 10.4 05/24/[address] [facility] RBC 2.98 4.20 - 5.40 05/24/[address] [facility] Hgb 9.8 12.0 - 16.0 05/24/[address] [facility] Hct 29.8 36.0 - 48.0 05/24/[address] [facility] MCV 99.8 80.0 - 98.0 05/24/[address] [facility] MCH 32.8 27.0 - 31.0 05/24/[address] [facility] MCHC 32.9 32.0 - 36.0 05/24/[address] [facility] RDW 15.0 11.5 - 14.5 05/24/[address] [facility] Platelet 114 133 - 450 05/24/[address] [facility] MPV 8.3 7.4 - 10.4 05/24/2020 [facility] CARDIAC ENZYMES Troponin-I <0.02 0.00 - 0.40 05/24/2020 [facility] SPECIAL CHEMISTRY Hgb A1C 5.0 <=5.6 % 05/24/2020 [facility] IMMUNOLOGY Coronavirus (COVID-19) NA A Not Detected (05/23/20 8:51 PM) Not Detected 05/24/2020 [facility] URINE AND STOOL UA Turbidity Slight *ABN* (05/23/20 2:19 PM) Clear 05/23/2020 [facility] URINE AND STOOL UA Spec Grav 1.025 <=1.030 05/23/2020 [facility] URINE AND STOOL UA pH 5.0 5.0 - 8.0 05/23/2020 [facility] URINE AND STOOL UA Protein 100 mg/dL Negative mg/dL 05/23/2020 [facility] URINE AND STOOL UA Glucose Negative mg/dL Negative mg/dL 05/23/2020 [facility] URINE AND STOOL UA Ketones Negative mg/dL Negative mg/dL 05/23/2020 [facility] URINE AND STOOL UA Bili Negative *NA* (05/23/20 2:19 PM) Negative 05/23/2020 [facility] URINE AND STOOL UA Blood Moderate *ABN* (05/23/20 2:19 PM) Negative 05/23/2020 [facility] URINE AND STOOL UA Urobilinogen 4.0 0.1 - 1.0 05/23/2020 [facility] URINE AND STOOL UA Nitrite Negative (05/23/20 2:19 PM) Negative 05/23/2020 [facility] URINE AND STOOL UA Leuk Est Negative (05/23/20 2:19 PM) Negative 05/23/2020 [facility] URINE AND STOOL UA Sq Epi Many /LPF Few /LPF 05/23/2020 [facility] URINE AND STOOL UA WBC 3 0 - 5 05/23/2020 [facility] URINE AND STOOL UA RBC 6 0 - 2 05/23/2020 [facility] URINE AND STOOL UA Bacteria Occasional /HPF None Seen /HPF 05/23/[address] [facility] [address] URINE AND STOOL UA Mucus Few /LPF None Seen /LPF 05/23/2020 [facility] URINE AND STOOL UA Color Renate 05/23/2020 [facility] CARDIAC ENZYMES Troponin-I <0.02 0.00 - 0.40 05/23/2020 [facility] CHEM PANEL Glucose Lvl 178 70 - 99 05/23/2020 [facility] CHEM PANEL BUN 49 7 - 22 05/23/2020 [facility] CHEM PANEL Creatinine Lvl 6.01 0.50 - 1.40 05/23/2020 [facility] CHEM PANEL Sodium Lvl 135 135 - 145 05/23/2020 [facility] CHEM PANEL Potassium Lvl 4.9 3.5 - 5.1 05/23/2020 [facility] CHEM PANEL Chloride Lvl 102 95 - 109 05/23/2020 [facility] CHEM PANEL CO2 28 24 - 32 05/23/2020 [facility] CHEM PANEL Calcium Lvl 9.1 8.5 - 10.5 05/23/2020 [facility] CHEM PANEL Total Protein 8.4 6.4 - 8.4 05/23/2020 [facility] CHEM PANEL Albumin Lvl 3.5 3.5 - 5.0 05/23/2020 [facility] CHEM PANEL ALT 22 0 - 65 05/23/2020 [facility] CHEM PANEL AST 35 0 - 37 05/23/2020 [facility] CHEM PANEL Alk Phos 137 39 - 136 05/23/2020 [facility] CHEM PANEL Bili Total 0.6 0.2 - 1.3 05/23/2020 [facility] CHEM PANEL AGAP 9.9 10.0 - 20.0 05/23/2020 [facility] CHEM PANEL B/C Ratio 8 6 - 25 05/23/2020 [facility] CHEM PANEL Globulin 4.9 2.7 - 4.2 05/23/2020 [facility] CHEM PANEL A/G Ratio 0.7 0.7 - 1.6 05/23/2020 [facility] CHEM PANEL eGFR 7 05/23/2020 Result [...] should be multiplied by the estimated BMI. [facility] HEMATOLOGY WBC 11.3 3.7 - 10.4 05/23/2020 [facility] HEMATOLOGY RBC 3.17 4.20 - 5.40 05/23/2020 [facility] HEMATOLOGY Hgb 10.4 12.0 - 16.0 05/23/2020 [facility] HEMATOLOGY Hct 32.0 36.0 - 48.0 05/23/2020 [facility] HEMATOLOGY MCV 101.1 80.0 - 98.0 05/23/[address] [facility] MCH 32.9 27.0 - 31.0 05/23/[address] [facility] MCHC 32.5 32.0 - 36.0 05/23/[address] [facility] RDW 15.0 11.5 - 14.5 05/23/[address] [facility] Platelet 141 133 - 450 05/23/2020 [facility] HEMATOLOGY MPV 8.5 7.4 - 10.4 05/23/2020 [facility] HEMATOLOGY Segs 80.7 45.0 - 75.0 05/23/2020 [facility] HEMATOLOGY Lymphocytes 8.7 20.0 - 40.0 05/23/2020 [facility] HEMATOLOGY Monocytes 8.1 2.0 - 12.0 05/23/2020 [facility] HEMATOLOGY Eosinophils 2.4 0.0 - 4.0 05/23/2020 [facility] HEMATOLOGY Basophils 0.1 0.0 - 1.0 05/23/2020 [facility] HEMATOLOGY Neutrophils # 9.1 1.5 - 8.1 05/23/2020 [facility] HEMATOLOGY Lymphocytes # 1.0 1.0 - 5.5 05/23/2020 [facility] HEMATOLOGY Monocytes # 0.9 0.0 - 0.8 05/23/2020 [facility] HEMATOLOGY Eosinophils # 0.3 0.0 - 0.5 05/23/2020 [facility] HEMATOLOGY Macrocyte 1+ *ABN* (05/23/20 11:55 AM) None Seen 05/23/2020 [facility] CARDIAC ENZYMES Troponin-I <0.02 0.00 - 0.40 12/30/2019 [facility] CHEM PANEL Glucose Lvl 210 70 - 99 12/30/2019 [facility] CHEM PANEL BUN 25 7 - [...] PANEL AGAP 10.4 10.0 - 20.0 12/30/2019 [facility] CHEM PANEL B/C Ratio 6 6 - 25 12/30/2019 [facility] CHEM PANEL Globulin 5.6 2.7 - 4.2 12/30/2019 [facility] CHEM PANEL A/G Ratio 0.6 0.7 - 1.6 12/30/2019 [facility] CHEM PANEL eGFR 10 12/30/2019 Result [...] should be multiplied by the estimated BMI. [facility] CHEM PANEL Magnesium Lvl 2.2 1.8 - 2.4 12/30/2019 [facility] CHEM PANEL Phosphorus 4.4 2.5 - 4.5 12/30/2019 [facility] HEMATOLOGY WBC 5.2 3.7 - 10.4 12/30/2019 [facility] HEMATOLOGY RBC 4.20 4.20 - 5.40 12/30/2019 [facility] HEMATOLOGY Hgb 13.7 12.0 - 16.0 12/30/2019 [facility] HEMATOLOGY Hct 41.8 36.0 - 48.0 12/30/2019 [facility] HEMATOLOGY MCV 99.4 80.0 - 98.0 12/30/2019 [facility] HEMATOLOGY MCH 32.6 27.0 - 31.0 12/30/[address] [facility] MCHC 32.8 32.0 - 36.0 12/30/[address] [facility] RDW 15.8 11.5 - 14.5 12/30/[address] [facility] Platelet 125 133 - 450 12/30/[address] [facility] MPV 8.9 7.4 - 10.4 12/30/2019 [facility] HEMATOLOGY PT 13.2 12.0 - 14.7 12/30/2019 [facility] HEMATOLOGY INR 1.00 0.85 - 1.17 12/30/2019 [facility] HEMATOLOGY PTT 31.1 22.9 - 35.8 12/30/2019 [facility] HEMATOLOGY Segs 54.8 45.0 - 75.0 12/30/2019 [facility] HEMATOLOGY Lymphocytes 22.6 20.0 - 40.0 12/30/2019 [facility] HEMATOLOGY Monocytes 9.7 2.0 - 12.0 12/30/2019 [facility] HEMATOLOGY Eosinophils 12.4 0.0 - 4.0 12/30/2019 [facility] HEMATOLOGY Basophils 0.5 0.0 - 1.0 12/30/2019 [facility] HEMATOLOGY Neutrophils # 2.9 1.5 - 8.1 12/30/2019 [facility] HEMATOLOGY Lymphocytes # 1.2 1.0 - 5.5 12/30/2019 [facility] HEMATOLOGY Monocytes # 0.5 0.0 - 0.8 12/30/2019 [facility] HEMATOLOGY Eosinophils # 0.6 0.0 - 0.5 12/30/2019 [facility] HEMATOLOGY Macrocyte 1+ *ABN* (12/30/19 11:31 [...] Bili Total 0.6 0.2 - 1.3 12/11/2019 [facility] CHEM PANEL AGAP 9.7 10.0 - 20.0 12/11/2019 [facility] CHEM PANEL B/C Ratio 4 6 - 25 12/11/2019 [facility] CHEM PANEL Globulin 5.2 2.7 - 4.2 12/11/2019 [facility] CHEM PANEL A/G Ratio 0.6 0.7 - 1.6 12/11/2019 [facility] CHEM PANEL eGFR 9 12/11/2019 Result [...] should be multiplied by the estimated BMI. [facility] CHEM PANEL Lipase Lvl 95 73 - 393 12/11/2019 [facility] HEMATOLOGY WBC 4.7 3.7 - 10.4 12/11/2019 [facility] HEMATOLOGY RBC 3.46 4.20 - 5.40 12/11/2019 [facility] HEMATOLOGY Hgb 11.2 12.0 - 16.0 12/11/2019 [facility] HEMATOLOGY Hct 33.8 36.0 - 48.0 12/11/2019 [facility] HEMATOLOGY MCV 97.7 80.0 - 98.0 12/11/2019 [facility] HEMATOLOGY MCH 32.3 27.0 - 31.0 12/11/[address] [facility] MCHC 33.1 32.0 - 36.0 12/11/[address] [facility] RDW 14.5 11.5 - 14.5 12/11/[address] [facility] Platelet 130 133 - 450 12/11/[address] [facility] MPV 8.7 7.4 - 10.4 12/11/2019 [facility] [...] should be multiplied by the estimated BMI. [facility] HEMATOLOGY PT 13.2 12.0 - 14.7 11/25/[address] [facility] INR 1.00 0.85 - 1.17 11/25/[address] [facility] PTT 33.5 22.9 - 35.8 11/25/[address] [facility] WBC 4.0 3.7 - 10.4 11/25/[address] [facility] RBC 3.84 4.20 - 5.40 11/25/[address] [facility] Hgb 12.6 12.0 - 16.0 11/25/[address] [facility] Hct 37.6 36.0 - 48.0 11/25/[address] [facility] MCV 97.9 80.0 - 98.0 11/25/[address] [facility] MCH 32.7 27.0 - 31.0 11/25/[address] [facility] MCHC 33.4 32.0 - 36.0 11/25/[address] [facility] RDW 16.5 11.5 - 14.5 11/25/[address] [facility] Platelet 87 133 - 450 11/25/[address] [facility] MPV 8.7 7.4 - 10.4 11/25/[address] [facility] Segs 50.2 45.0 - 75.0 11/25/[address] [facility] Lymphocytes 26.7 20.0 - 40.0 11/25/[address] [facility] Monocytes 12.2 2.0 - 12.0 11/25/2019 [facility] HEMATOLOGY Eosinophils 10.3 0.0 - 4.0 11/25/2019 [facility] HEMATOLOGY Basophils 0.6 0.0 - 1.0 11/25/2019 [facility] HEMATOLOGY Neutrophils # 2.0 1.5 - 8.1 11/25/2019 [facility] HEMATOLOGY Lymphocytes # 1.1 1.0 - 5.5 11/25/2019 [facility] HEMATOLOGY Monocytes # 0.5 0.0 - 0.8 11/25/2019 [facility] HEMATOLOGY Eosinophils # 0.4 0.0 - 0.5 11/25/2019 [facility] CHEM PANEL Total Protein 8.2 6.4 - 8.4 11/24/2019 [facility] CHEM PANEL Albumin Lvl 3.2 3.5 - 5.0 11/24/2019 [facility] CHEM PANEL ALT 18 0 - 65 11/24/2019 [facility] CHEM PANEL AST 29 0 - 37 11/24/2019 [facility] CHEM PANEL Alk Phos 155 39 - 136 11/24/2019 [facility] CHEM PANEL Bili Total 0.3 0.2 - 1.3 11/24/2019 [facility] CHEM PANEL Bili Direct 0.2 0.0 - 0.3 11/24/2019 [facility] CHEM PANEL Globulin 5.0 2.7 - 4.2 11/24/2019 [facility] CHEM PANEL A/G Ratio 0.6 0.7 - 1.6 11/24/2019 [facility] CHEM PANEL Bili Indirect 0.1 0.0 - 1.0 11/24/2019 [facility] CHEM PANEL Ammonia 39.0 <=45.0 uMol/L 11/24/2019 [facility] Hep Bs Ag Negat zaria *NA* (11/23/19 7:37 PM) Negative 11/24/2019 [facility] IMMUNOLOGY Hep B Core IgM Negat zaria *NA* (11/23/19 7:37 PM) Negative 11/24/2019 [facility] Hep A IgM Negat zaria *NA* (11/23/19 7:37 PM) Negative 11/24/2019 [facility] Hep C Ab Posit zaria *ABN* (11/23/19 7:37 PM) Negative 11/24/2019 [facility] HCV Genotype 2b 11/24/2019 [facility] HCV Genotype Comment Comm ent 11/24/2019 [...] as investigational or for research.
Performed At: [facility]
[id number], [place] [id number]
Raheel Melendez MD Ph:[phone] [facility] MOLECULAR DIAGNOSTIC HCV RNA VirLoad [id number] 11/24/2019 [facility] MOLECULAR DIAGNOSTIC HCV RNA Log10 6.0 11/24/2019 [facility] TUMOR MARKERS AFP 1.9 0.0 - 11.0 11/24/2019 [facility] CHEM PANEL Glucose Lvl 188 70 - 99 11/22/2019 [facility] CHEM PANEL BUN 18 7 - 22 11/22/2019 [facility] CHEM PANEL Creatinine Lvl 5.15 0.50 - 1.40 11/22/2019 [facility] CHEM PANEL Sodium Lvl 136 135 - 145 11/22/2019 [facility] CHEM PANEL Potassium Lvl 3.7 3.5 - 5.1 11/22/2019 [facility] CHEM PANEL Chloride Lvl 99 95 - 109 11/22/2019 [facility] CHEM PANEL CO2 30 24 - 32 11/22/2019 [facility] CHEM PANEL Calcium Lvl 9.0 8.5 - 10.5 11/22/2019 [facility] CHEM PANEL AGAP 10.7 10.0 - 20.0 11/22/2019 [facility] CHEM PANEL eGFR 8 11/22/2019 Result [...] should be multiplied by the estimated BMI. [facility] WBC 5.6 3.7 - 10.4 11/22/[address] [facility] RBC 3.66 4.20 - 5.40 11/22/[address] [facility] Hgb 12.1 12.0 - 16.0 11/22/[address] [facility] Hct 36.3 36.0 - 48.0 11/22/[address] [facility] MCV 99.2 80.0 - 98.0 11/22/[address] [facility] MCH 33.0 27.0 - 31.0 11/22/[address] [facility] MCHC 33.2 32.0 - 36.0 11/22/[address] [facility] RDW 16.7 11.5 - 14.5 11/22/[address] [facility] Platelet 112 133 - 450 11/22/[address] [facility] MPV 8.5 7.4 - 10.4 11/22/[address] [facility] Segs 58.5 45.0 - 75.0 11/22/[address] [facility] Lymphocytes 23.7 20.0 - 40.0 11/22/[address] [facility] Monocytes 10.1 2.0 - 12.0 11/22/[address] [facility] Eosinophils 7.3 0.0 - 4.0 11/22/[address] [facility] Basophils 0.4 0.0 - 1.0 11/22/[address] [facility] Neutrophils # 3.3 1.5 - 8.1 11/22/[address] [facility] Lymphocytes # 1.3 1.0 - 5.5 11/22/[address] [facility] Monocytes # 0.6 0.0 - 0.8 11/22/[address] [facility] Eosinophils # 0.4 0.0 - 0.5 11/22/[address] [facility] Macrocyte 1+ *ABN* (11/22/19 12:32 PM) None Seen 11/22/2019 [facility] IMMUNOLOGY Hep Bs Ag Negat zaria *NA* (11/21/19 5:19 PM) Negative 11/21/2019 [facility] MOLECULAR DIAGNOSTIC Source Respirat ory Panel PCR Nasophrngl Swb *NA* (11/21/19 3:28 PM) 11/21/2019 [facility] MOLECULAR DIAGNOSTIC Influenza A PCR Negative *NA* (11/21/19 3:28 PM) Negative 11/21/2019 [facility] MOLECULAR DIAGNOSTIC Influenza B PCR Negative *NA* (11/21/19 3:28 PM) Negative 11/21/2019 [facility] MOLECULAR DIAGNOSTIC RSV PCR Negative *NA* (11/21/19 3:28 PM) Negative 11/21/2019 [facility] CARDIAC ENZYMES Total CK 89 12 - 191 11/21/2019 [facility] CARDIAC ENZYMES Troponin-I <0.02 0.00 - 0.40 11/21/2019 [facility] CHEM PANEL Glucose Lvl 117 70 - 99 11/21/2019 [facility] CHEM PANEL BUN 26 7 - 22 11/21/2019 [facility] CHEM PANEL Creatinine Lvl 6.19 0.50 - 1.40 11/21/2019 [facility] CHEM PANEL Sodium Lvl 137 135 - 145 11/21/2019 [facility] CHEM PANEL Potassium Lvl 4.5 3.5 - 5.1 11/21/2019 [facility] CHEM PANEL Chloride Lvl 99 95 - 109 11/21/2019 [facility] CHEM PANEL CO2 32 24 - 32 11/21/2019 [facility] CHEM PANEL Calcium Lvl 9.1 8.5 - 10.5 11/21/2019 [facility] CHEM PANEL Total Protein 9.1 6.4 - 8.4 11/21/2019 [facility] CHEM PANEL Albumin Lvl 3.7 3.5 - 5.0 11/21/2019 [facility] CHEM PANEL ALT 27 0 - 65 11/21/2019 [facility] CHEM PANEL AST 51 0 - 37 11/21/2019 [facility] CHEM PANEL Alk Phos 171 39 - 136 11/21/2019 [facility] CHEM PANEL Bili Total 0.6 0.2 - 1.3 11/21/2019 [facility] CHEM PANEL AGAP 10.5 10.0 - 20.0 11/21/2019 [facility] CHEM PANEL B/C Ratio 4 6 - 25 11/21/2019 [facility] CHEM PANEL Globulin 5.4 2.7 - 4.2 11/21/2019 [facility] CHEM PANEL A/G Ratio 0.7 0.7 - 1.6 11/21/2019 [facility] CHEM PANEL eGFR 6 11/21/2019 Result [...] should be multiplied by the estimated BMI. [facility] CHEM PANEL Ammonia 34.0 <=45.0 uMol/L 11/21/2019 [facility] CHEM PANEL Lactic Acid Lvl 1.2 0.5 - 2.2 11/21/[address] [facility] [place] WBC 7.6 3.7 - 10.4 11/21/[address] [facility] [place] RBC 3.64 4.20 - 5.40 11/21/[address] [facility] [place] Hgb 11.8 12.0 - 16.0 11/21/[address] [facility] [place] Hct 35.8 36.0 - 48.0 11/21/[address] [facility] [place] MCV 98.5 80.0 - 98.0 11/21/[address] [facility] [place] MCH 32.4 27.0 - 31.0 11/21/[address] [facility] [place] MCHC 32.9 32.0 - 36.0 11/21/[address] [facility] [place] RDW 17.1 11.5 - 14.5 11/21/[address] [facility] [place] Platelet 123 133 - 450 11/21/[address] [facility] MPV 9.1 7.4 - 10.4 11/21/[address] [facility] PT 13.5 12.0 - 14.7 11/21/[address] [facility] INR 1.03 0.85 - 1.17 11/21/[address] [facility] PTT 27.5 22.9 - 35.8 11/21/[address] [facility] RBC Morph Cathy l (11/21/19 10:14 AM) Normal 11/21/[address] [facility] Segs 63.1 45.0 - 75.0 11/21/[address] [facility] Lymphocytes 21.1 20.0 - 40.0 11/21/2019 [facility] HEMATOLOGY Monocytes 9.2 2.0 - 12.0 11/21/2019 [facility] HEMATOLOGY Eosinophils 5.9 0.0 - 4.0 11/21/2019 [facility] HEMATOLOGY Basophils 0.7 0.0 - 1.0 11/21/2019 [facility] HEMATOLOGY Neutrophils # 4.8 1.5 - 8.1 11/21/2019 [facility] HEMATOLOGY Lymphocytes # 1.6 1.0 - 5.5 11/21/2019 [facility] HEMATOLOGY Monocytes # 0.7 0.0 - 0.8 11/21/2019 [facility] HEMATOLOGY Eosinophils # 0.4 0.0 - 0.5 11/21/2019 [facility] HEMATOLOGY Basophils # 0.1 0.0 - 0.2 11/21/2019 [facility] HEMATOLOGY Large Plt slight 11/21/2019 [facility] IMIPENEM:SUSC:PT:ISOLATE:ORDQN:RHONDA C ulture: Urine 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 Escherichia coli 11/21/2019 [facility] IMIPENEM:SUSC:PT:ISOLATE:ORDQN:RHNODA E scherichia coli Escherichia coli 11/21/2019 [facility] URINE AND STOOL UA Color Yellow *NA* (11/21/19 10:14 AM) Yellow 11/21/2019 [facility] URINE AND STOOL UA Turbidity Marked *ABN* (11/21/19 10:14 AM) Clear 11/21/2019 [facility] URINE AND STOOL UA Spec Grav 1.023 <=1.030 11/21/2019 [facility] URINE AND STOOL UA pH 6.0 5.0 - 8.0 11/21/2019 [facility] URINE AND STOOL UA Protein 100 mg/dL Negative mg/dL 11/21/2019 [facility] URINE AND STOOL UA Glucose Negative mg/dL Negative mg/dL 11/21/[address] [facility] [address] URINE AND STOOL UA Ketones Negative mg/dL Negative mg/dL 11/21/[address] [facility] [address] URINE AND STOOL UA Bili [...] Sq Epi Few /LPF Few /LPF 11/21/2019 [facility] URINE AND STOOL UA WBC >182 0 - 5 11/21/2019 [facility] URINE AND STOOL UA RBC 18 0 - 2 11/21/2019 [facility] URINE AND STOOL UA Bacteria Moderate /HPF None Seen /HPF 11/21/2019 [facility] URINE AND STOOL UA Mucus Moderate /LPF None Seen /LPF 11/21/2019 [facility] URINE AND STOOL UA [place] Yeast Few /HPF None Seen /HPF 11/21/2019 [facility] URINE AND STOOL UA Urobilinogen <=1.0 mg/dL 0.1 - 1.0 11/21/[address] [facility] [address] CARDIAC ENZYMES Total CK 82 12 - 191 09/03/2019 [facility] CARDIAC ENZYMES Troponin-I <0.02 0.00 - 0.40 09/03/2019 [facility] CHEM PANEL Glucose Lvl 172 70 - 99 09/03/2019 [facility] CHEM PANEL BUN 27 7 - 22 09/03/2019 [facility] CHEM PANEL Creatinine Lvl 5.43 0.50 - 1.40 09/03/2019 [facility] CHEM PANEL Sodium Lvl 138 135 - 145 09/03/2019 [facility] CHEM PANEL Potassium Lvl 4.7 3.5 - 5.1 09/03/2019 [facility] CHEM PANEL Chloride Lvl 100 95 - 109 09/03/2019 [facility] CHEM PANEL CO2 33 24 - 32 09/03/2019 [facility] CHEM PANEL Calcium Lvl 8.8 8.5 - 10.5 09/03/2019 [facility] CHEM PANEL Total Protein 8.5 6.4 - 8.4 09/03/2019 [facility] CHEM PANEL Albumin Lvl 3.4 3.5 - 5.0 09/03/2019 [facility] CHEM PANEL ALT 17 0 - 65 09/03/2019 [facility] CHEM PANEL AST 42 0 - 37 09/03/2019 [facility] CHEM PANEL Alk Phos 191 39 - 136 09/03/2019 [facility] CHEM PANEL Bili Total 0.7 0.2 - 1.3 09/03/2019 [facility] CHEM PANEL eGFR 8 09/03/2019 Result [...] should be multiplied by the estimated BMI. [facility] CHEM PANEL AGAP 9.7 10.0 - 20.0 09/03/2019 [facility] CHEM PANEL B/C Ratio 5 6 - 25 09/03/2019 [facility] CHEM PANEL Globulin 5.1 2.7 - 4.2 09/03/2019 [facility] CHEM PANEL A/G Ratio 0.7 0.7 - 1.6 09/03/[address] [facility] Segs 56.3 45.0 - 75.0 09/03/[address] [facility] Lymphocytes 22.5 20.0 - 40.0 09/03/[address] [facility] Monocytes 10.9 2.0 - 12.0 09/03/[address] [facility] Eosinophils 9.7 0.0 - 4.0 09/03/[address] [facility] Basophils 0.6 0.0 - 1.0 09/03/[address] [facility] Neutrophils # 2.3 1.5 - 8.1 09/03/[address] [facility] Lymphocytes # 0.9 1.0 - 5.5 09/03/[address] [facility] Monocytes # 0.4 0.0 - 0.8 09/03/[address] [facility] Eosinophils # 0.4 0.0 - 0.5 09/03/[address] [facility] Macrocyte 1+ *ABN* (09/03/19 10:12 AM) None Seen 09/03/[address] [facility] WBC 4.1 3.7 - 10.4 09/03/[address] [facility] RBC 3.46 4.20 - 5.40 09/03/[address] [facility] Hgb 11.4 12.0 - 16.0 09/03/[address] [facility] Hct 34.4 36.0 - 48.0 09/03/2019 [facility] HEMATOLOGY MCV 99.5 80.0 - 98.0 09/03/2019 [facility] HEMATOLOGY MCH 33.0 27.0 - 31.0 09/03/2019 [facility] HEMATOLOGY MCHC 33.2 32.0 - 36.0 09/03/2019 [facility] HEMATOLOGY RDW 14.2 11.5 - 14.5 09/03/2019 [facility] HEMATOLOGY Platelet 104 133 - 450 09/03/2019 [facility] HEMATOLOGY MPV 9.4 7.4 - 10.4 09/03/2019 [facility] HEMATOLOGY PT 13.1 12.0 - 14.7 09/03/2019 [facility] HEMATOLOGY PTT 31.9 22.9 - 35.8 09/03/2019 [facility] HEMATOLOGY INR 1.01 0.85 - 1.17 09/03/2019 [facility] URINE AND STOOL UA Bili Negative *NA* (04/03/19 8:02 PM) Negative 04/04/2019 [facility] URINE AND STOOL UA Blood Negative (04/03/19 8:02 PM) Negative 04/04/2019 [facility] URINE AND STOOL UA Ketones Negative mg/dL Negative mg/dL 04/04/2019 [facility] URINE AND STOOL UA Bacteria Occasional /HPF None Seen /HPF 04/04/2019 [facility] URINE AND STOOL UA WBC 9 0 - 5 04/04/2019 [facility] URINE AND STOOL UA Leuk Est Negative (04/03/19 8:02 PM) Negative 04/04/2019 [facility] URINE AND STOOL UA Sq Epi None Seen 04/04/2019 [facility] URINE AND STOOL UA Nitrite Negative (04/03/19 8:02 PM) Negative 04/04/2019 [facility] URINE AND STOOL UA Urobilinogen <=1.0 mg/dL 0.1 - 1.0 04/04/2019 [facility] URINE AND STOOL UA pH 8.0 5.0 - 8.0 04/04/2019 [facility] URINE AND STOOL UA Protein 100 mg/dL Negative mg/dL 04/04/2019 [facility] URINE AND STOOL UA Glucose 50 mg/dL Negative mg/dL 04/04/2019 [facility] URINE AND STOOL UA Color Yellow *NA* (04/03/19 8:02 PM) Yellow 04/04/2019 [facility] URINE AND STOOL UA Spec Grav 1.013 <=1.030 04/04/2019 [facility] URINE AND STOOL UA Turbidity Clear (04/03/19 8:02 PM) Clear 04/04/2019 [facility] IMMUNOLOGY Hep Bs Ag Negat zaria *NA* (04/03/19 7:10 PM) Negative 04/04/2019 [facility] CHEM PANEL Lactic Acid Lvl 1.3 0.5 - 2.2 04/03/2019 [facility] CARDIAC ENZYMES Total CK 69 12 - 191 04/03/2019 [facility] CARDIAC ENZYMES Troponin-I <0.02 0.00 - 0.40 04/03/2019 [facility] CHEM PANEL eGFR 6 04/03/2019 Result [...] should be multiplied by the estimated BMI. [facility] CHEM PANEL Albumin Lvl 3.0 3.5 - 5.0 04/03/2019 [facility] CHEM PANEL Total Protein 9.1 6.4 - 8.4 04/03/2019 [facility] CHEM PANEL B/C Ratio 6 6 - 25 04/03/2019 [facility] CHEM PANEL Calcium Lvl 8.7 8.5 - 10.5 04/03/2019 [facility] CHEM PANEL AGAP 16.4 10.0 - 20.0 04/03/2019 [facility] CHEM PANEL Chloride Lvl 99 95 - 109 04/03/2019 [facility] CHEM PANEL CO2 27 24 - 32 04/03/2019 [facility] CHEM PANEL Bili Total 0.5 0.2 - 1.3 04/03/2019 [facility] CHEM PANEL Alk Phos 278 39 - 136 04/03/2019 [facility] CHEM PANEL AST 41 0 - 37 04/03/2019 [facility] CHEM PANEL ALT 6 0 - 65 04/03/2019 [facility] CHEM PANEL Globulin 6.1 2.7 - 4.2 04/03/2019 [facility] CHEM PANEL A/G Ratio 0.5 0.7 - 1.6 04/03/2019 [facility] CHEM PANEL Sodium Lvl 137 135 - 145 04/03/2019 [facility] CHEM PANEL Creatinine Lvl 6.76 0.50 - 1.40 04/03/2019 [facility] CHEM PANEL BUN 39 7 - 22 04/03/2019 [facility] CHEM PANEL Glucose Lvl 105 70 - 99 04/03/2019 [facility] CHEM PANEL Potassium Lvl 5.4 3.5 - 5.1 04/03/2019 [facility] HEMATOLOGY Basophils # 0.1 0.0 - 0.2 04/03/2019 [facility] HEMATOLOGY Eosinophils # 0.2 0.0 - 0.5 04/03/2019 [facility] HEMATOLOGY Lymphocytes # 2.0 1.0 - 5.5 04/03/2019 [facility] HEMATOLOGY Monocytes # 0.8 0.0 - 0.8 04/03/2019 [facility] HEMATOLOGY Basophils 1.2 0.0 - 1.0 04/03/2019 [facility] HEMATOLOGY Eosinophils 1.4 0.0 - 4.0 04/03/2019 [facility] HEMATOLOGY Monocytes 6.6 2.0 - 12.0 04/03/2019 [facility] HEMATOLOGY Segs 75.3 45.0 - 75.0 04/03/2019 [facility] HEMATOLOGY Lymphocytes 15.5 20.0 - 40.0 04/03/[address] [facility] Neutrophils # 9.5 1.5 - 8.1 04/03/[address] [facility] PTT 34.2 22.9 - 35.8 04/03/[address] [facility] MCHC 31.9 32.0 - 36.0 04/03/[address] [facility] RDW 18.9 11.5 - 14.5 04/03/[address] [facility] MPV 9.3 7.4 - 10.4 04/03/[address] [facility] Platelet 106 133 - 450 04/03/[address] [facility] Hgb 12.4 12.0 - 16.0 04/03/[address] [facility] MCH 30.4 27.0 - 31.0 04/03/[address] [facility] Hct 38.9 36.0 - 48.0 04/03/[address] [facility] MCV 95.3 80.0 - 98.0 04/03/2019 [facility] HEMATOLOGY WBC 12.6 3.7 - 10.4 04/03/2019 [facility] HEMATOLOGY RBC 4.08 4.20 - 5.40 04/03/2019 [facility] HEMATOLOGY PT 13.7 12.0 - 14.7 04/03/2019 [facility] HEMATOLOGY INR 1.07 0.85 - 1.17 04/03/2019 [facility] CHEM PANEL Magnesium Lvl 2.2 1.8 - 2.4 03/10/2019 [facility] CHEM PANEL Phosphorus 3.8 2.5 - 4.5 03/10/2019 [facility] CHEM PANEL eGFR 6 03/10/2019 Result [...] should be multiplied by the estimated BMI. [facility] CHEM PANEL CO2 27 24 - 32 03/10/2019 [facility] CHEM PANEL Calcium Lvl 8.5 8.5 - 10.5 03/10/2019 [facility] CHEM PANEL Chloride Lvl 96 95 - 109 03/10/2019 [facility] CHEM PANEL Potassium Lvl 3.9 3.5 - 5.1 03/10/2019 [facility] CHEM PANEL Creatinine Lvl 6.53 0.50 - 1.40 03/10/2019 [facility] CHEM PANEL Glucose Lvl 241 70 - 99 03/10/2019 [facility] CHEM PANEL Sodium Lvl 135 135 - 145 03/10/2019 [facility] CHEM PANEL BUN 36 7 - 22 03/10/2019 [facility] CHEM PANEL AGAP 15.9 10.0 - 20.0 03/10/2019 [facility] HEMATOLOGY Platelet 139 133 - 450 03/10/2019 [facility] HEMATOLOGY MPV 8.7 7.4 - 10.4 03/10/[address] [facility] MCH 29.6 27.0 - 31.0 03/10/[address] [facility] MCV 91.7 80.0 - 98.0 03/10/[address] [facility] RDW 15.8 11.5 - 14.5 03/10/[address] [facility] MCHC 32.3 32.0 - 36.0 03/10/[address] [facility] WBC 7.1 3.7 - 10.4 03/10/[address] [facility] Hct 33.6 36.0 - 48.0 03/10/[address] [facility] RBC 3.67 4.20 - 5.40 03/10/[address] [facility] Hgb 10.9 12.0 - 16.0 03/10/2019 [facility] PARATHYROID PROFILE Ca Norm WB 1.06 1.05 - 1.25 03/10/2019 [facility] PARATHYROID PROFILE Ca Ion WB 1.04 1.05 - 1.25 03/10/2019 [facility] ELECTROLYTES Potassium Lvl 3.9 3.5 - 5.1 03/08/2019 [facility] ELECTROLYTES Calcium Lvl 8.4 8.5 - 10.5 03/08/2019 [facility] ELECTROLYTES AGAP 16.9 10.0 - 20.0 03/08/2019 [facility] ELECTROLYTES Chloride Lvl 100 95 - 109 03/08/2019 [facility] ELECTROLYTES CO2 23 24 - 32 03/08/2019 [facility] ELECTROLYTES Glucose Lvl 131 70 - 99 03/08/2019 [facility] ELECTROLYTES BUN 32 7 - 22 03/08/2019 [facility] Creatinine Lvl 5.4 5 0.50 - 1.40 03/08/2019 [facility] ELECTROLYTES Sodium Lvl 136 135 - 145 03/08/2019 [facility] ELECTROLYTES eGFR 8 03/08/2019 Result Comment: [...] should be multiplied by the estimated BMI. [facility] HEMATOLOGY Monocytes # 0.8 0.0 - 0.8 03/08/2019 [facility] HEMATOLOGY Eosinophils # 0.3 0.0 - 0.5 03/08/2019 [facility] HEMATOLOGY Lymphocytes # 1.3 1.0 - 5.5 03/08/2019 [facility] HEMATOLOGY Eosinophils 3.5 0.0 - 4.0 03/08/2019 [facility] HEMATOLOGY Neutrophils # 5.4 1.5 - 8.1 03/08/2019 [facility] HEMATOLOGY Monocytes 10.3 2.0 - 12.0 03/08/2019 [facility] HEMATOLOGY Basophils 0.5 0.0 - 1.0 03/08/[address] [facility] Segs 68.7 45.0 - 75.0 03/08/[address] [facility] Lymphocytes 17.0 20.0 - 40.0 03/08/2019 [facility] HEMATOLOGY Hct 34.4 36.0 - 48.0 03/08/[address] [facility] Hgb 10.9 12.0 - 16.0 03/08/[address] [facility] Platelet 150 133 - 450 03/08/[address] [facility] MCV 92.4 80.0 - 98.0 03/08/[address] [facility] RBC 3.72 4.20 - 5.40 03/08/[address] [facility] MCHC 31.6 32.0 - 36.0 03/08/[address] [facility] RDW 15.6 11.5 - 14.5 03/08/[address] [facility] MPV 8.3 7.4 - 10.4 03/08/[address] [facility] MCH 29.2 27.0 - 31.0 03/08/2019 [facility] HEMATOLOGY WBC 7.9 3.7 - 10.4 03/08/2019 [facility] CHEM PANEL Magnesium Lvl 2.2 1.8 - 2.4 03/06/2019 [facility] ELECTROLYTES AGAP 9.7 10.0 - 20.0 03/06/2019 [facility] ELECTROLYTES eGFR 8 03/06/2019 Result Comment: [...] should be multiplied by the estimated BMI. [facility] ELECTROLYTES CO2 29 24 - 32 03/06/2019 [facility] ELECTROLYTES Calcium Lvl 8.9 8.5 - 10.5 03/06/2019 [facility] ELECTROLYTES Potassium Lvl 4.7 3.5 - 5.1 03/06/2019 [facility] ELECTROLYTES Chloride Lvl 101 95 - 109 03/06/2019 [facility] ELECTROLYTES Creatinine Lvl 5.2 4 0.50 - 1.40 03/06/2019 [facility] ELECTROLYTES Sodium Lvl 135 135 - 145 03/06/2019 [facility] ELECTROLYTES Glucose Lvl 119 70 - 99 03/06/2019 [facility] ELECTROLYTES BUN 30 7 - 22 03/06/2019 [facility] HEMATOLOGY INR 1.15 0.85 - 1.17 03/06/[address] [facility] PTT 38.5 22.9 - 35.8 03/06/2019 [facility] HEMATOLOGY PT 14.5 12.0 - 14.7 03/06/[address] [facility] MCHC 32.8 32.0 - 36.0 03/06/2019 [facility] HEMATOLOGY RDW 15.8 11.5 - 14.5 03/06/[address] [facility] Platelet 152 133 - 450 03/06/2019 [facility] HEMATOLOGY MPV 8.6 7.4 - 10.4 03/06/2019 [facility] HEMATOLOGY WBC 7.5 3.7 - 10.4 03/06/2019 [facility] HEMATOLOGY RBC 3.77 4.20 - 5.40 03/06/[address] [facility] MCH 30.1 27.0 - 31.0 03/06/[address] [facility] MCV 91.9 80.0 - 98.0 03/06/2019 [facility] HEMATOLOGY Hct 34.7 36.0 - 48.0 03/06/2019 [facility] HEMATOLOGY Hgb 11.4 12.0 - 16.0 03/06/2019 [facility] HEMATOLOGY Segs 62.3 45.0 - 75.0 03/06/2019 [facility] HEMATOLOGY Eosinophils 3.3 0.0 - 4.0 03/06/2019 [facility] HEMATOLOGY Monocytes 10.2 2.0 - 12.0 03/06/2019 [facility] HEMATOLOGY Neutrophils # 4.7 1.5 - 8.1 03/06/2019 [facility] HEMATOLOGY Basophils 0.7 0.0 - 1.0 03/06/2019 [facility] HEMATOLOGY Lymphocytes 23.5 20.0 - 40.0 03/06/2019 [facility] HEMATOLOGY Eosinophils # 0.3 0.0 - 0.5 03/06/2019 [facility] HEMATOLOGY Monocytes # 0.8 0.0 - 0.8 03/06/2019 [facility] HEMATOLOGY Basophils # 0.1 0.0 - 0.2 03/06/2019 [facility] HEMATOLOGY Lymphocytes # 1.8 1.0 - 5.5 03/06/2019 [facility] HEMATOLOGY Basophils # 0.1 0.0 - 0.2 03/04/2019 [facility] HEMATOLOGY Eosinophils # 0.2 0.0 - 0.5 03/04/2019 [facility] HEMATOLOGY Monocytes # 0.7 0.0 - 0.8 03/04/[address] [facility] Lymphocytes # 1.1 1.0 - 5.5 03/04/[address] [facility] Neutrophils # 3.7 1.5 - 8.1 03/04/2019 [facility] HEMATOLOGY Basophils 0.9 0.0 - 1.0 03/04/[address] [facility] Eosinophils 3.0 0.0 - 4.0 03/04/2019 [facility] HEMATOLOGY Monocytes 13.0 2.0 - 12.0 03/04/2019 [facility] HEMATOLOGY Lymphocytes 19.8 20.0 - 40.0 03/04/2019 [facility] HEMATOLOGY Segs 63.3 45.0 - 75.0 03/04/2019 [facility] IMMUNOLOGY Hep Bs Ag Negat zaria *NA* (03/04/19 7:15 AM) Negative 03/04/2019 [facility] CHEM PANEL ALT 16 0 - 65 03/01/2019 [facility] CHEM PANEL AST 23 0 - 37 03/01/2019 [facility] CHEM PANEL Bili Total 1.0 0.2 - 1.3 03/01/2019 [facility] CHEM PANEL Alk Phos 133 39 - 136 03/01/2019 [facility] CHEM PANEL Total Protein 7.7 6.4 - 8.4 03/01/2019 [facility] CHEM PANEL Albumin Lvl 3.1 3.5 - 5.0 03/01/2019 [facility] CHEM PANEL Globulin 4.6 2.7 - 4.2 03/01/2019 [facility] CHEM PANEL A/G Ratio 0.7 0.7 - 1.6 03/01/2019 [facility] CHEM PANEL B/C Ratio 7 6 - 25 03/01/2019 [facility] HEMATOLOGY Plt Morph Cathy l (03/01/19 4:10 AM) Normal 03/01/2019 [facility] HEMATOLOGY RBC Morph Cathy l (03/01/19 4:10 AM) Normal 03/01/2019 [facility] IMMUNOLOGY Hep Bs Ag Negat zaria *NA* (02/28/19 8:10 PM) Negative 03/01/2019 [facility] CARDIAC ENZYMES Troponin-I 0.03 0.00 - 0.40 02/28/2019 [facility] CHEM PANEL Globulin 5.9 2.7 - 4.2 02/28/2019 [facility] CHEM PANEL A/G Ratio 0.5 0.7 - 1.6 02/28/2019 [facility] CHEM PANEL B/C Ratio 10 6 - 25 02/28/2019 [facility] CHEM PANEL Albumin Lvl 3.1 3.5 - 5.0 02/28/2019 [facility] CHEM PANEL Total Protein 9.0 6.4 - 8.4 02/28/2019 [facility] CHEM PANEL Bili Total 0.9 0.2 - 1.3 02/28/2019 [facility] CHEM PANEL Alk Phos 207 39 - 136 02/28/2019 [facility] CHEM PANEL ALT 25 0 - 65 02/28/2019 [facility] CHEM PANEL AST 76 0 - 37 02/28/2019 [facility] CHEM PANEL Procalcitonin Lvl 1.69 0.00 - 0.10 02/28/2019 [facility] CHEM PANEL Lactic Acid Lvl 1.9 0.5 - 2.2 02/28/2019 [facility] MOLECULAR DIAGNOSTIC Ishan Vancomycin Resistance Not Detected (02/28/19 1:21 PM) Not Detected 02/28/2019 [facility] MOLECULAR DIAGNOSTIC mecA Methicilli n Resistance Not Detected (02/28/19 1:21 PM) Not Detected 02/28/2019 [facility] Staphylococcus spp. Detected *ABN* (02/28/19 1:21 PM) Not Detected 02/28/2019 [facility] Listeria spp. Not Detected (02/28/19 1:21 PM) Not Detected 02/28/2019 [facility] Streptococcus s pp. Not Detected (02/28/19 1:21 PM) Not Detected 02/28/2019 [facility] E. faecalis Not Detected (02/28/19 1:21 PM) Not Detected 02/28/2019 [facility] E. faecium Not Detected (02/28/19 1:21 PM) Not Detected 02/28/2019 [facility] S. pyogenes Not Detected (02/28/19 1:21 PM) Not Detected 02/28/2019 [facility] S. pneumoniae Not Detected (02/28/19 1:21 PM) Not Detected 02/28/2019 [facility] S. agalactiae Not Detected (02/28/19 1:21 PM) Not Detected 02/28/2019 [facility] vanB Vancomycin Resistance Not Detected (02/28/19 1:21 PM) Not Detected 02/28/2019 [facility] S. epidermidis Not Detected (02/28/19 1:21 PM) Not Detected 02/28/2019 [facility] S. lugdunensis Detected *ABN* (02/28/19 1:21 PM) Not Detected 02/28/2019 [facility] S. aureus Not Detected (02/28/19 1:21 PM) Not Detected 02/28/2019 [facility] S. anginosus gr p Not Detected (02/28/19 1:21 PM) Not Detected 02/28/2019 [facility] CARDIAC ENZYMES Troponin-I <0.02 0.00 - 0.40 02/12/2019 [facility] CHEM PANEL eGFR 9 02/12/2019 Result [...] Glucose Lvl 107 70 - 99 02/12/2019 [facility] CHEM PANEL Creatinine Lvl 4.57 0.50 [...] PANEL ALT 18 0 - 65 02/12/2019 [facility] CHEM PANEL Albumin Lvl 3.2 3.5 [...] should be multiplied by the estimated BMI. [facility] CHEM PANEL Chloride Lvl 104 95 - 109 11/05/2018 [facility] CHEM PANEL CO2 28 24 - 32 11/05/2018 [facility] CHEM PANEL Calcium Lvl 7.9 8.5 - 10.5 11/05/2018 [facility] CHEM PANEL Potassium Lvl 3.9 3.5 - 5.1 11/05/2018 [facility] CHEM PANEL BUN 41 7 - 22 11/05/2018 [facility] CHEM PANEL Glucose Lvl 277 70 - 99 11/05/2018 [facility] CHEM PANEL Creatinine Lvl 3.38 0.50 - 1.40 11/05/2018 [facility] CHEM PANEL Sodium Lvl 141 135 - 145 11/05/2018 [facility] CHEM PANEL AGAP 12.9 10.0 - 20.0 11/05/[address] [facility] Monocytes # 0.2 0.0 - 0.8 11/05/[address] [facility] Eosinophils # 0.2 0.0 - 0.5 11/05/[address] [facility] Neutrophils # 2.2 1.5 - 8.1 11/05/[address] [facility] Lymphocytes # 0.9 1.0 - 5.5 11/05/[address] [facility] Monocytes 5.6 2.0 - 12.0 11/05/2018 [facility] HEMATOLOGY Eosinophils 5.0 0.0 - 4.0 11/05/[address] [facility] Basophils 0.5 0.0 - 1.0 11/05/[address] [facility] Lymphocytes 25.1 20.0 - 40.0 11/05/[address] [facility] Segs 63.8 45.0 - 75.0 11/05/[address] [facility] Platelet 143 133 - 450 11/05/[address] [facility] MPV 8.3 7.4 - 10.4 11/05/[address] [facility] [place] MCHC 33.8 32.0 - 36.0 11/05/2018 [facility] HEMATOLOGY RDW 13.1 11.5 - 14.5 11/05/2018 [facility] HEMATOLOGY MCV 94.7 80.0 - 98.0 11/05/2018 [facility] HEMATOLOGY MCH 32.0 27.0 - 31.0 11/05/2018 [facility] HEMATOLOGY WBC 3.4 3.7 - 10.4 11/05/2018 [facility] HEMATOLOGY RBC 2.86 4.20 - 5.40 11/05/2018 [facility] HEMATOLOGY Hgb 9.2 12.0 - 16.0 11/05/[address] [facility] [place] Hct 27.1 36.0 - 48.0 11/05/2018 [facility] Gram Stain Report Gram Stain Perf ormed By: [facility] 11/04/2018 [facility] Culture: Respiratory w/Gram Stain F ew Yeast Normal Respiratory Cheri Isolated 11/04/2018 [facility] CHEM PANEL eGFR 13 11/03/2018 Result [...] should be multiplied by the estimated BMI. [facility] CHEM PANEL BUN 26 7 - 22 11/03/2018 [facility] CHEM PANEL Creatinine Lvl 3.51 0.50 - 1.40 11/03/2018 [facility] CHEM PANEL Glucose Lvl 146 70 - 99 11/03/2018 [facility] CHEM PANEL Sodium Lvl 141 135 - 145 11/03/2018 [facility] CHEM PANEL Potassium Lvl 4.0 3.5 - 5.1 11/03/2018 [facility] CHEM PANEL Chloride Lvl 104 95 - 109 11/03/2018 [facility] CHEM PANEL CO2 29 24 - 32 11/03/2018 [facility] CHEM PANEL Calcium Lvl 8.4 8.5 - 10.5 11/03/2018 [facility] CHEM PANEL AGAP 12.0 10.0 - 20.0 11/03/2018 [facility] HEMATOLOGY MCH 31.9 27.0 - 31.0 11/03/[address] [facility] RDW 13.2 11.5 - 14.5 11/03/2018 [facility] HEMATOLOGY MCV 94.9 80.0 - 98.0 11/03/[address] [facility] MCHC 33.7 32.0 - 36.0 11/03/[address] [facility] MPV 8.2 7.4 - 10.4 11/03/[address] [facility] Platelet 140 133 - 450 11/03/[address] [facility] RBC 3.05 4.20 - 5.40 11/03/[address] [facility] WBC 5.1 3.7 - 10.4 11/03/[address] [facility] Hct 28.9 36.0 - 48.0 11/03/[address] [facility] Hgb 9.7 12.0 - 16.0 11/03/[address] [facility] Lymphocytes # 1.4 1.0 - 5.5 11/03/[address] [facility] Eosinophils # 0.3 0.0 - 0.5 11/03/[address] [facility] Segs 53.9 45.0 - 75.0 11/03/[address] [facility] Lymphocytes 26.8 20.0 - 40.0 11/03/[address] [facility] Monocytes 13.1 2.0 - 12.0 11/03/[address] [facility] Neutrophils # 2.8 1.5 - 8.1 11/03/[address] [facility] Basophils 0.4 0.0 - 1.0 11/03/[address] [facility] Eosinophils 5.8 0.0 - 4.0 11/03/[address] [facility] Monocytes # 0.7 0.0 - 0.8 11/03/2018 [facility] MOLECULAR DIAGNOSTIC Source Respirat ory Panel PCR [employer] Swab (11/02/18 1:32 AM) 11/02/2018 [facility] DIAGNOSTIC Influenza A PCR Negative (11/02/18 1:32 AM) Negative 11/02/2018 [facility] MOLECULAR DIAGNOSTIC Influenza B PCR Negative (11/02/18 1:32 AM) Negative 11/02/2018 [facility] MOLECULAR DIAGNOSTIC RSV PCR Negative (11/02/18 1:32 AM) Negative 11/02/2018 [facility] VIRAL - SEROLOGY Influ A Negative (11/02/18 1:32 AM) Negative 11/02/2018 [facility] VIRAL - SEROLOGY Influ B Negative (11/02/18 1:32 AM) Negative 11/02/2018 [facility] CHEM PANEL Lactic Acid Lvl 0.9 0.5 - 2.2 11/02/2018 [facility] CHEM PANEL Procalcitonin Lvl 0.40 0.00 - 0.10 11/02/2018 [facility] IMMUNOLOGY Hep Bs Ag Negat zaria *NA* (11/02/18 12:52 AM) Negative 11/02/2018 [facility] BACTERIAL - SEROLOGY Source Strep Urine *NA* (11/01/18 10:06 PM) 11/02/2018 [facility] BACTERIAL - SEROLOGY Strep pneumonia e Ag Negative (11/01/18 10:06 PM) Negative 11/02/2018 [facility] CEFAZOLIN:SUSC:PT:ISOLATE:ORDQN:RHONDA Culture: Urine 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 Escherichia coli . This Organism Produces An Extended Spectrum Beta Lactamase (ESBL). . 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 Skin Cheri 11/02/2018 [facility] CEFAZOLIN:SUSC:PT:ISOLATE:ORDQN:RHONDA Escherichia coli Escherichia coli 11/02/2018 [facility] URINE AND STOOL UA Ketones Trace *ABN* (11/01/18 10:06 PM) Negative 11/02/2018 [facility] URINE AND STOOL UA Protein >=300 mg/dL Negative mg/dL 11/02/2018 [facility] URINE AND STOOL UA Color Renate 11/02/2018 [facility] URINE AND STOOL UA Turbidity Marked *ABN* (11/01/18 10:06 PM) Clear 11/02/2018 [facility] URINE AND STOOL UA Glucose Negative *NA* (11/01/18 10:06 PM) Negative 11/02/2018 [facility] URINE AND STOOL UA Spec Grav 1.017 <=1.030 11/02/2018 [facility] URINE AND STOOL UA pH 5.0 5.0 - 8.0 11/02/2018 [facility] URINE AND STOOL UA Leuk Est Large *ABN* (11/01/18 10:06 PM) Negative 11/02/2018 [facility] URINE AND STOOL UA Bacteria Many /HPF None Seen /HPF 11/02/2018 [facility] URINE AND STOOL UA Mucus Few /LPF None Seen /LPF 11/02/2018 [facility] URINE AND STOOL UA WBC >182 0 - 5 11/02/2018 [facility] URINE AND STOOL UA RBC 5 0 - 2 11/02/2018 [facility] URINE AND STOOL UA Sq Epi Occasional /LPF Few /LPF 11/02/2018 [facility] URINE AND STOOL UA Urobilinogen <=1.0 mg/dL 0.1 - 1.0 11/02/2018 [facility] URINE AND STOOL UA Nitrite Negative (11/01/18 10:06 PM) Negative 11/02/2018 [facility] URINE AND STOOL UA Bili Negative *NA* (11/01/18 10:06 PM) Negative 11/02/2018 [facility] URINE AND STOOL UA Blood Moderate *ABN* (11/01/18 10:06 PM) Negative 11/02/2018 [facility] CARDIAC ENZYMES Troponin-I <0.02 0.00 - 0.40 11/02/2018 [facility] CHEM PANEL Lactic Acid Lvl 0.7 0.5 - 2.2 11/02/2018 [facility] CHEM PANEL Globulin 5.4 2.7 - 4.2 11/02/2018 [facility] CHEM PANEL B/C Ratio 10 6 - 25 11/02/2018 [facility] CHEM PANEL A/G Ratio 0.6 0.7 - 1.6 11/02/2018 [facility] CHEM PANEL AGAP 11.5 10.0 - 20.0 11/02/2018 [facility] CHEM PANEL Alk Phos 275 39 - 136 11/02/2018 [facility] CHEM PANEL eGFR 14 11/02/2018 Result [...] should be multiplied by the estimated BMI. [facility] CHEM PANEL Bili Total 1.0 0.2 - 1.3 11/02/2018 [facility] CHEM PANEL CO2 32 24 - 32 11/02/2018 [facility] CHEM PANEL Chloride Lvl 96 95 - 109 11/02/2018 [facility] CHEM PANEL Sodium Lvl 136 135 - 145 11/02/2018 [facility] CHEM PANEL Potassium Lvl 3.5 3.5 - 5.1 11/02/2018 [facility] CHEM PANEL Creatinine Lvl 3.19 0.50 - 1.40 11/02/2018 [facility] CHEM PANEL AST 41 0 - 37 11/02/2018 [facility] CHEM PANEL Calcium Lvl 8.8 8.5 - 10.5 11/02/2018 [facility] CHEM PANEL Total Protein 8.5 6.4 - 8.4 11/02/2018 [facility] CHEM PANEL Albumin Lvl 3.1 3.5 - 5.0 11/02/2018 [facility] CHEM PANEL ALT 26 0 - 65 11/02/2018 [facility] CHEM PANEL BUN 32 7 - 22 11/02/2018 [facility] CHEM PANEL Glucose Lvl 159 70 - 99 11/02/[address] [facility] MPV 8.3 7.4 - 10.4 11/02/[address] [facility] MCH 31.9 27.0 - 31.0 11/02/[address] [facility] Hct 32.8 36.0 - 48.0 11/02/[address] [facility] MCV 94.1 80.0 - 98.0 11/02/[address] [facility] RDW 13.1 11.5 - 14.5 11/02/[address] [facility] Platelet 153 133 - 450 11/02/[address] [facility] MCHC 33.9 32.0 - 36.0 11/02/[address] [facility] WBC 8.3 3.7 - 10.4 11/02/[address] [facility] RBC 3.48 4.20 - 5.40 11/02/[address] [facility] Hgb 11.1 12.0 - 16.0 11/02/[address] [facility] Basophils # 0.1 0.0 - 0.2 11/02/[address] [facility] Eosinophils # 0.3 0.0 - 0.5 11/02/[address] [facility] Monocytes # 0.7 0.0 - 0.8 11/02/2018 [facility] HEMATOLOGY Basophils 0.7 0.0 - 1.0 11/02/2018 [facility] HEMATOLOGY Neutrophils # 5.7 1.5 - 8.1 11/02/2018 [facility] HEMATOLOGY Eosinophils 4.0 0.0 - 4.0 11/02/2018 [facility] HEMATOLOGY Lymphocytes # 1.5 1.0 - 5.5 11/02/[address] [facility] Lymphocytes 18.2 20.0 - 40.0 11/02/2018 [facility] HEMATOLOGY Segs 68.7 45.0 - 75.0 11/02/[address] [facility] Monocytes 8.4 2.0 - 12.0 11/02/2018 [facility] CHEM PANEL eGFR 18 08/06/2018 Result [...] should be multiplied by the estimated BMI. [facility] CHEM PANEL Chloride Lvl 105 95 - 109 08/06/2018 [facility] CHEM PANEL Potassium Lvl 4.1 3.5 - 5.1 08/06/2018 [facility] CHEM PANEL Sodium Lvl 143 135 - 145 08/06/2018 [facility] CHEM PANEL CO2 27 24 - 32 08/06/2018 [facility] CHEM PANEL Calcium Lvl 8.4 8.5 - 10.5 08/06/2018 [facility] CHEM PANEL Glucose Lvl 142 70 - 99 08/06/2018 [facility] CHEM PANEL Creatinine Lvl 2.66 0.50 - 1.40 08/06/2018 [facility] CHEM PANEL BUN 31 7 - 22 08/06/2018 [facility] CHEM PANEL AGAP 15.1 10.0 - 20.0 08/06/[address] [facility] Hct 31.0 36.0 - 48.0 08/06/[address] [facility] MCV 93.6 80.0 - 98.0 08/06/[address] [facility] MCHC 33.7 32.0 - 36.0 08/06/[address] [facility] MCH 31.6 27.0 - 31.0 08/06/[address] [facility] Hgb 10.4 12.0 - 16.0 08/06/[address] [facility] RBC 3.31 4.20 - 5.40 08/06/[address] [facility] WBC 5.7 3.7 - 10.4 08/06/[address] [facility] Platelet 181 133 - 450 08/06/[address] [facility] RDW 16.2 11.5 - 14.5 08/06/[address] [facility] MPV 8.3 7.4 - 10.4 08/06/[address] [facility] Segs 62.8 45.0 - 75.0 08/06/[address] [facility] Neutrophils # 3.6 1.5 - 8.1 08/06/[address] [facility] Lymphocytes # 1.3 1.0 - 5.5 08/06/[address] [facility] Eosinophils 5.4 0.0 - 4.0 08/06/[address] [facility] Basophils 0.4 0.0 - 1.0 08/06/[address] [facility] Lymphocytes 22.8 20.0 - 40.0 08/06/[address] [facility] Monocytes 8.6 2.0 - 12.0 08/06/[address] [facility] Monocytes # 0.5 0.0 - 0.8 08/06/[address] [facility] Eosinophils # 0.3 0.0 - 0.5 08/06/2018 [facility] CHEM PANEL eGFR 17 08/06/2018 Result [...] should be multiplied by the estimated BMI. [facility] CHEM PANEL Calcium Lvl 8.6 8.5 - 10.5 08/06/2018 [facility] CHEM PANEL BUN 30 7 - 22 08/06/2018 [facility] CHEM PANEL AGAP 15.2 10.0 - 20.0 08/06/2018 [facility] CHEM PANEL CO2 25 24 - 32 08/06/2018 [facility] CHEM PANEL Potassium Lvl 4.2 3.5 - 5.1 08/06/2018 [facility] CHEM PANEL Chloride Lvl 106 95 - 109 08/06/2018 [facility] CHEM PANEL Sodium Lvl 142 135 - 145 08/06/2018 [facility] CHEM PANEL Glucose Lvl 140 70 - 99 08/06/2018 [facility] CHEM PANEL Creatinine Lvl 2.76 0.50 - 1.40 08/06/2018 [facility] HEMATOLOGY RBC 3.43 4.20 - 5.40 08/06/2018 [facility] HEMATOLOGY WBC 6.3 3.7 - 10.4 08/06/2018 [facility] HEMATOLOGY Hgb 10.6 12.0 - 16.0 08/06/2018 [facility] HEMATOLOGY MPV 8.1 7.4 - 10.4 08/06/2018 [facility] HEMATOLOGY RDW 16.4 11.5 - 14.5 08/06/[address] [facility] Platelet 187 133 - 450 08/06/[address] [facility] MCH 30.9 27.0 - 31.0 08/06/2018 [facility] HEMATOLOGY MCHC 33.0 32.0 - 36.0 08/06/2018 [facility] HEMATOLOGY Hct 32.1 36.0 - 48.0 08/06/2018 [facility] HEMATOLOGY MCV 93.6 80.0 - 98.0 08/06/2018 [facility] CHEM PANEL Magnesium Lvl 2.2 1.8 - 2.4 08/05/2018 [facility] CHEM PANEL eGFR 16 08/05/2018 Result [...] should be multiplied by the estimated BMI. [facility] CHEM PANEL BUN 28 7 - 22 08/05/2018 [facility] CHEM PANEL Creatinine Lvl 2.95 0.50 - 1.40 08/05/2018 [facility] CHEM PANEL Chloride Lvl 106 95 - 109 08/05/2018 [facility] CHEM PANEL CO2 25 24 - 32 08/05/2018 [facility] CHEM PANEL Calcium Lvl 9.1 8.5 - 10.5 08/05/2018 [facility] CHEM PANEL Sodium Lvl 143 135 - 145 08/05/2018 [facility] CHEM PANEL Potassium Lvl 4.9 3.5 - 5.1 08/05/2018 [facility] CHEM PANEL Glucose Lvl 207 70 - 99 08/05/2018 [facility] CHEM PANEL AGAP 16.9 10.0 - 20.0 08/05/2018 [facility] HEMATOLOGY Neutrophils # 3.2 1.5 - 8.1 08/05/2018 [facility] HEMATOLOGY Basophils 0.4 0.0 - 1.0 08/05/2018 [facility] HEMATOLOGY Monocytes # 0.4 0.0 - 0.8 08/05/2018 [facility] HEMATOLOGY Lymphocytes # 1.0 1.0 - 5.5 08/05/2018 [facility] HEMATOLOGY Eosinophils # 0.2 0.0 - 0.5 08/05/2018 [facility] HEMATOLOGY Monocytes 8.9 2.0 - 12.0 08/05/2018 [facility] HEMATOLOGY Eosinophils 4.6 0.0 - 4.0 08/05/2018 [facility] HEMATOLOGY Segs 64.9 45.0 - 75.0 08/05/[address] [facility] Lymphocytes 21.2 20.0 - 40.0 08/05/[address] [facility] MPV 8.3 7.4 - 10.4 08/05/[address] [facility] RDW 15.9 11.5 - 14.5 08/05/[address] [facility] Platelet 192 133 - 450 08/05/2018 [facility] HEMATOLOGY MCH 31.2 27.0 - 31.0 08/05/[address] [facility] MCHC 33.2 32.0 - 36.0 08/05/2018 [facility] HEMATOLOGY MCV 93.7 80.0 - 98.0 08/05/[address] [facility] Hct 32.1 36.0 - 48.0 08/05/[address] [facility] Hgb 10.7 12.0 - 16.0 08/05/2018 [facility] HEMATOLOGY WBC 4.9 3.7 - 10.4 08/05/2018 [facility] HEMATOLOGY RBC 3.43 4.20 - 5.40 08/05/2018 [facility] HEMATOLOGY Eosinophils # 0.3 0.0 - 0.5 08/03/[address] [facility] Monocytes # 0.5 0.0 - 0.8 08/03/[address] [facility] Lymphocytes 16.1 20.0 - 40.0 08/03/[address] [facility] Segs 70.4 45.0 - 75.0 08/03/[address] [facility] Lymphocytes # 0.9 1.0 - 5.5 08/03/[address] [facility] Neutrophils # 4.0 1.5 - 8.1 08/03/[address] [facility] Basophils 0.4 0.0 - 1.0 08/03/[address] [facility] Eosinophils 4.7 0.0 - 4.0 08/03/[address] [facility] Monocytes 8.4 2.0 - 12.0 08/03/2018 [facility] IMMUNOLOGY Hep Bs Ag Negat zaria *NA* (07/30/18 5:30 AM) Negative 07/30/2018 [facility] CEFUROXIME:SUSC:PT:ISOLATE:ORDQN:RHONDA Culture: Urine 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 Escherichia coli 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 Skin Cheri 07/30/2018 [facility] CEFUROXIME:SUSC:PT:ISOLATE:ORDQN:RHONDA Escherichia coli Escherichia coli 07/30/2018 [facility] URINE AND STOOL UA Urobilinogen <=1.0 mg/dL 0.1 - 1.0 07/30/2018 [facility] URINE AND STOOL UA Color Renate 07/30/2018 [facility] URINE AND STOOL UA Mucus Few /LPF None Seen /LPF 07/30/2018 [facility] URINE AND STOOL UA Hyal Cast 9 0 - 2 07/30/2018 [facility] URINE AND STOOL UA WBC 106 0 - 5 07/30/2018 [facility] URINE AND STOOL UA RBC 2 0 - 2 07/30/2018 [facility] URINE AND STOOL UA Bacteria Many /HPF None Seen /HPF 07/30/2018 [facility] URINE AND STOOL UA Blood Small *ABN* (07/30/18 3:50 AM) Negative 07/30/2018 [facility] URINE AND STOOL UA Bili Negative *NA* (07/30/18 3:50 AM) Negative 07/30/2018 [facility] URINE AND STOOL UA Sq Epi Moderate /LPF Few /LPF 07/30/2018 [facility] URINE AND STOOL UA Nitrite Negative (07/30/18 3:50 AM) Negative 07/30/2018 [facility] URINE AND STOOL UA Leuk Est Large *ABN* (07/30/18 3:50 AM) Negative 07/30/2018 [facility] URINE AND STOOL UA Protein 100 mg/dL Negative mg/dL 07/30/2018 [facility] URINE AND STOOL UA Ketones Negative mg/dL Negative mg/dL 07/30/[address] [facility] [address] URINE AND STOOL UA Glucose Negative mg/dL Negative mg/dL 07/30/[address] [facility] [address] URINE AND STOOL UA pH 5.0 5.0 - 8.0 07/30/2018 [facility] URINE AND STOOL UA Spec Grav 1.014 <=1.030 07/30/2018 [facility] URINE AND STOOL UA Turbidity Marked *ABN* (07/30/18 3:50 AM) Clear 07/30/2018 [facility] HEMATOLOGY Basophils # 0.1 0.0 - 0.2 07/29/2018 [facility] CARDIAC ENZYMES Troponin-I 0.03 0.00 - 0.40 07/29/2018 [facility] CHEM PANEL B/C Ratio 10 6 - 25 07/29/2018 [facility] CHEM PANEL Globulin 5.9 2.7 - 4.2 07/29/2018 [facility] CHEM PANEL A/G Ratio 0.5 0.7 - 1.6 07/29/2018 [facility] CHEM PANEL Albumin Lvl 3.1 3.5 - 5.0 07/29/2018 [facility] CHEM PANEL AST 39 0 - 37 07/29/2018 [facility] CHEM PANEL ALT 17 0 - 65 07/29/2018 [facility] CHEM PANEL Bili Total 0.5 0.2 - 1.3 07/29/2018 [facility] CHEM PANEL Alk Phos 195 39 - 136 07/29/2018 [facility] CHEM [facility] Total Protein 9.0 6.4 - 8.4 07/29/2018 [facility] HEMATOLOGY PTT 28.1 22.9 - 35.8 07/29/2018 [facility] HEMATOLOGY INR 1.01 0.85 - 1.17 07/29/2018 [facility] HEMATOLOGY PT 13.3 12.0 - 14.7 07/29/2018 [facility] HEMATOLOGY Basophils # 0.1 0.0 - 0.2 07/29/2018 [facility] CARDIAC ENZYMES Troponin-I 0.04 0.00 - 0.40 05/05/2018 [facility] CARDIAC ENZYMES Troponin-I 0.04 0.00 - 0.40 05/04/2018 [facility] CHEM PANEL eGFR 34 05/04/2018 Result [...] should be multiplied by the estimated BMI. [facility] CHEM PANEL Glucose Lvl 128 70 - 99 05/04/2018 [facility] CHEM PANEL BUN 15 7 - 22 05/04/2018 [facility] CHEM PANEL Creatinine Lvl 1.56 0.50 - 1.40 05/04/2018 [facility] CHEM PANEL Sodium Lvl 140 135 - 145 05/04/2018 [facility] CHEM PANEL Calcium Lvl 8.1 8.5 - 10.5 05/04/2018 [facility] CHEM PANEL CO2 32 24 - 32 05/04/2018 [facility] CHEM PANEL Chloride Lvl 104 95 - 109 05/04/2018 [facility] CHEM PANEL Potassium Lvl 4.1 3.5 - 5.1 05/04/2018 [facility] CHEM PANEL AGAP 8.1 10.0 - 20.0 05/04/2018 [facility] HEMATOLOGY MPV 8.2 7.4 - 10.4 05/04/2018 [facility] HEMATOLOGY MCHC 32.7 32.0 - 36.0 05/04/[address] [facility] MCH 29.5 27.0 - 31.0 05/04/2018 [facility] HEMATOLOGY Platelet 129 133 - 450 05/04/2018 [facility] HEMATOLOGY RDW 18.7 11.5 - 14.5 05/04/2018 [facility] HEMATOLOGY Hct 25.9 36.0 - 48.0 05/04/2018 [facility] HEMATOLOGY MCV 90.2 80.0 - 98.0 05/04/2018 [facility] HEMATOLOGY Hgb 8.5 12.0 - 16.0 05/04/2018 [facility] HEMATOLOGY RBC 2.88 4.20 - 5.40 05/04/2018 [facility] HEMATOLOGY WBC 4.9 3.7 - 10.4 05/04/2018 [facility] HEMATOLOGY Monocytes 13.0 2.0 - 12.0 05/04/2018 [facility] HEMATOLOGY Eosinophils 9.1 0.0 - 4.0 05/04/2018 [facility] HEMATOLOGY Segs 54.0 45.0 - 75.0 05/04/2018 [facility] HEMATOLOGY Lymphocytes 23.7 20.0 - 40.0 05/04/2018 [facility] HEMATOLOGY Eosinophils # 0.4 0.0 - 0.5 05/04/[address] [facility] Lymphocytes # 1.2 1.0 - 5.5 05/04/[address] [facility] Monocytes # 0.6 0.0 - 0.8 05/04/2018 [facility] HEMATOLOGY Basophils 0.2 0.0 - 1.0 05/04/[address] [facility] Segs-Bands # 2.6 1.5 - 8.1 05/04/2018 [facility] HEMATOLOGY Hct 28.2 36.0 - 48.0 05/04/2018 [facility] HEMATOLOGY Hgb 9.2 12.0 - 16.0 05/04/2018 [facility] CARDIAC ENZYMES Troponin-I 0.04 0.00 - 0.40 05/03/2018 [facility] CARDIAC ENZYMES BNP 663 <=100 pg/mL 05/02/2018 [facility] ELECTROLYTES AGAP 11.0 10.0 - 20.0 05/02/2018 [facility] ELECTROLYTES Glucose Lvl 167 70 - 99 05/02/2018 [facility] ELECTROLYTES Creatinine Lvl 2.8 0 0.50 - 1.40 05/02/2018 [facility] ELECTROLYTES Sodium Lvl 139 135 - 145 05/02/2018 [facility] ELECTROLYTES Potassium Lvl 4.0 3.5 - 5.1 05/02/2018 [facility] ELECTROLYTES BUN 46 7 - 22 05/02/2018 [facility] ELECTROLYTES eGFR 17 05/02/2018 Result Comment: [...] should be multiplied by the estimated BMI. [facility] ELECTROLYTES Chloride Lvl 103 95 - 109 05/02/2018 [facility] ELECTROLYTES CO2 29 24 - 32 05/02/2018 [facility] ELECTROLYTES Calcium Lvl 8.3 8.5 - 10.5 05/02/2018 [facility] IMMUNOLOGY Hep Bs Ag Negat zaria *NA* (05/02/18 7:27 AM) Negative 05/02/2018 [facility] ELECTROLYTES AGAP 11.5 10.0 - 20.0 05/01/2018 [facility] ELECTROLYTES eGFR 17 05/01/2018 Result Comment: [...] should be multiplied by the estimated BMI. [facility] ELECTROLYTES Calcium Lvl 8.4 8.5 - 10.5 05/01/2018 [facility] ELECTROLYTES CO2 27 24 - 32 05/01/2018 [facility] ELECTROLYTES Sodium Lvl 139 135 - 145 05/01/2018 [facility] ELECTROLYTES Creatinine Lvl 2.7 8 0.50 - 1.40 05/01/2018 [facility] ELECTROLYTES Potassium Lvl 4.5 3.5 - 5.1 05/01/2018 [facility] ELECTROLYTES Glucose Lvl 135 70 - 99 05/01/2018 [facility] ELECTROLYTES BUN 39 7 - 22 05/01/2018 [facility] ELECTROLYTES Chloride Lvl 105 95 - 109 05/01/2018 [facility] HEMATOLOGY PTT 45.8 22.9 - 35.8 04/30/[address] [facility] PTT 73.6 22.9 - 35.8 04/30/2018 [facility] CARDIAC ENZYMES CK MB Index 1.6 0.0 - 2.5 04/30/2018 [facility] CARDIAC ENZYMES CK MB 2.8 0.5 - 3.6 04/30/2018 [facility] CARDIAC ENZYMES Total CK 177 12 - 191 04/30/[address] [facility] MPV 8.0 7.4 - 10.4 04/30/[address] [facility] RBC 2.88 4.20 - 5.40 04/30/[address] [facility] Hgb 8.3 12.0 - 16.0 04/30/[address] [facility] WBC 5.3 3.7 - 10.4 04/30/[address] [facility] Hct 25.8 36.0 - 48.0 04/30/[address] [facility] Platelet 118 133 - 450 04/30/[address] [facility] MCV 89.8 80.0 - 98.0 04/30/[address] [facility] MCHC 32.2 32.0 - 36.0 04/30/[address] [facility] RDW 19.7 11.5 - 14.5 04/30/[address] [facility] MCH 28.9 27.0 - 31.0 04/30/2018 [facility] HEMATOLOGY Basophils 0.4 0.0 - 1.0 [...] Monocytes # 0.6 0.0 - 0.8 04/30/2018 [facility] CARDIAC ENZYMES Total CK 200 12 - 191 04/30/2018 [facility] CARDIAC ENZYMES CK MB 3.4 0.5 - 3.6 04/30/2018 [facility] CARDIAC ENZYMES Total CK 191 12 - 191 04/29/2018 [facility] CARDIAC ENZYMES CK MB 3.9 0.5 [...] HEMATOLOGY PTT 36.4 22.9 - 35.8 04/29/2018 [facility] HEMATOLOGY Platelet 124 133 - 450 04/29/2018 [facility] HEMATOLOGY MCHC 32.0 32.0 - 36.0 04/29/2018 [facility] HEMATOLOGY MPV 7.7 7.4 - 10.4 04/29/2018 [facility] HEMATOLOGY RDW 19.3 11.5 - 14.5 04/29/2018 [facility] HEMATOLOGY WBC 5.9 3.7 - 10.4 04/29/2018 [facility] HEMATOLOGY MCV 89.1 80.0 - 98.0 04/29/2018 [facility] HEMATOLOGY MCH 28.5 27.0 - 31.0 04/29/2018 [facility] HEMATOLOGY RBC 2.82 4.20 - 5.40 04/29/2018 [facility] IMMUNOLOGY Hep C Ab Posit zaria *ABN* (04/29/18 6:13 PM) 04/29/2018 [facility] Hep Bs Ab 44.5 <=7.4 mIU/mL 04/29/2018 [facility] Hep B Core Ab Posit zaria *NA* (04/29/18 6:13 PM) Negative 04/29/2018 [facility] CARDIAC ENZYMES CK MB Index 3.0 0.0 - 2.5 04/29/2018 [facility] CARDIAC ENZYMES CK MB Index 3.3 0.0 - 2.5 04/29/2018 [facility] CHEM PANEL Lipase Lvl 279 73 - 393 04/29/2018 [facility] CARDIAC ENZYMES BNP 451 <=100 pg/mL 04/29/2018 [facility] CHEM PANEL Total Protein 8.1 6.4 - 8.4 04/29/2018 [facility] CHEM PANEL ALT 21 0 - 65 04/29/2018 [facility] CHEM PANEL AST 55 0 - 37 04/29/2018 [facility] CHEM PANEL Alk Phos 142 39 - 136 04/29/2018 [facility] CHEM PANEL Albumin Lvl 3.2 3.5 - 5.0 04/29/2018 [facility] CHEM PANEL Bili Total 0.4 0.2 - 1.3 04/29/2018 [facility] CHEM PANEL A/G Ratio 0.7 0.7 - 1.6 04/29/2018 [facility] CHEM PANEL Globulin 4.9 2.7 - 4.2 04/29/2018 [facility] CHEM PANEL B/C Ratio 16 6 - 25 04/29/2018 [facility] URINE AND STOOL UA Turbidity Clear (04/28/18 7:10 PM) Clear 04/29/2018 [facility] URINE AND STOOL UA Spec Grav 1.010 <=1.030 04/29/2018 [facility] URINE AND STOOL UA Color Yellow *NA* (04/28/18 7:10 PM) Yellow 04/29/2018 [facility] URINE AND STOOL UA Urobilinogen <=1.0 mg/dL 0.1 - 1.0 04/29/2018 [facility] URINE AND STOOL UA Leuk Est Negative (04/28/18 7:10 PM) Negative 04/29/2018 [facility] URINE AND STOOL UA Blood Small *ABN* (04/28/18 7:10 PM) Negative 04/29/2018 [facility] URINE AND STOOL UA Nitrite Negative (04/28/18 7:10 PM) Negative 04/29/2018 [facility] URINE AND STOOL UA Hyal Cast 1 0 - 2 04/29/2018 [facility] URINE AND STOOL UA Bacteria Occasional /HPF None Seen /HPF 04/29/2018 [facility] URINE AND STOOL UA Ketones Negative mg/dL Negative mg/dL 04/29/2018 [facility] URINE AND STOOL UA Bili Negative *NA* (04/28/18 7:10 PM) Negative 04/29/2018 [facility] URINE AND STOOL UA Sq Epi Occasional /LPF Few /LPF 04/29/2018 [facility] URINE AND STOOL UA WBC 3 0 - 5 04/29/2018 [facility] URINE AND STOOL UA RBC 4 0 - 2 04/29/2018 [facility] URINE AND STOOL UA pH 5.0 5.0 - 8.0 04/29/2018 [facility] URINE AND STOOL UA Protein 100 mg/dL Negative mg/dL 04/29/2018 [facility] URINE AND STOOL UA Glucose Negative mg/dL Negative mg/dL 04/29/2018 [facility] CHEM PANEL eGFR 22 04/12/2018 Result [...] should be multiplied by the estimated BMI. [facility] CHEM PANEL Glucose Lvl 82 70 - 99 04/12/2018 [facility] CHEM PANEL BUN 43 7 - 22 04/12/2018 [facility] CHEM PANEL Creatinine Lvl 2.25 0.50 - 1.40 04/12/2018 [facility] CHEM PANEL Potassium Lvl 4.6 3.5 - 5.1 04/12/2018 [facility] CHEM PANEL Sodium Lvl 144 135 - 145 04/12/2018 [facility] CHEM PANEL Chloride Lvl 113 95 - 109 04/12/2018 [facility] CHEM PANEL CO2 26 24 - 32 04/12/2018 [facility] CHEM PANEL Calcium Lvl 8.5 8.5 - 10.5 04/12/2018 [facility] CHEM PANEL AGAP 9.6 10.0 - 20.0 04/12/2018 [facility] HEMATOLOGY Basophils 0.5 0.0 - 1.0 04/12/2018 [facility] HEMATOLOGY Segs-Bands # 4.5 1.5 - 8.1 04/12/2018 [facility] HEMATOLOGY Lymphocytes # 1.1 1.0 - 5.5 04/12/2018 [facility] HEMATOLOGY Monocytes 9.7 2.0 - 12.0 04/12/2018 [facility] HEMATOLOGY Eosinophils 3.4 0.0 - 4.0 04/12/[address] [facility] Monocytes # 0.6 0.0 - 0.8 04/12/[address] [facility] Eosinophils # 0.2 0.0 - 0.5 04/12/2018 [facility] HEMATOLOGY Segs 69.2 45.0 - 75.0 04/12/2018 [facility] HEMATOLOGY Lymphocytes 17.2 20.0 - 40.0 04/12/[address] [facility] Platelet 170 133 - 450 04/12/[address] [facility] MPV 8.1 7.4 - 10.4 04/12/[address] [facility] MCH 28.5 27.0 - 31.0 04/12/[address] [facility] MCHC 31.6 32.0 - 36.0 04/12/[address] [facility] RDW 17.8 11.5 - 14.5 04/12/[address] [facility] MCV 90.2 80.0 - 98.0 04/12/[address] [facility] WBC 6.5 3.7 - 10.4 04/12/2018 [facility] HEMATOLOGY Hct 31.5 36.0 - 48.0 04/12/2018 [facility] HEMATOLOGY Hgb 9.9 12.0 - 16.0 04/12/[address] [facility] RBC 3.49 4.20 - 5.40 04/12/2018 [facility] CHEM PANEL eGFR 23 04/01/2018 Result [...] should be multiplied by the estimated BMI. [facility] CHEM PANEL CO2 29 24 - 32 04/01/2018 [facility] CHEM PANEL Calcium Lvl 8.7 8.5 - 10.5 04/01/2018 [facility] CHEM PANEL BUN 32 7 - 22 04/01/2018 [facility] CHEM PANEL Creatinine Lvl 2.18 0.50 - 1.40 04/01/2018 [facility] CHEM PANEL Glucose Lvl 137 70 - 99 04/01/2018 [facility] CHEM PANEL Chloride Lvl 106 95 - 109 04/01/2018 [facility] CHEM PANEL Potassium Lvl 4.9 3.5 - 5.1 04/01/2018 [facility] CHEM PANEL Sodium Lvl 143 135 - 145 04/01/2018 [facility] CHEM PANEL AGAP 12.9 10.0 - 20.0 04/01/2018 [facility] HEMATOLOGY Eosinophils 3.3 0.0 - 4.0 04/01/2018 [facility] HEMATOLOGY Monocytes 12.6 2.0 - 12.0 04/01/2018 [facility] HEMATOLOGY Lymphocytes # 0.9 1.0 - 5.5 04/01/2018 [facility] HEMATOLOGY Eosinophils # 0.1 0.0 - 0.5 04/01/[address] [facility] Monocytes # 0.6 0.0 - 0.8 04/01/[address] [facility] Basophils 0.6 0.0 - 1.0 04/01/[address] [facility] Segs-Bands # 2.7 1.5 - 8.1 04/01/[address] [facility] Segs 62.0 45.0 - 75.0 04/01/[address] [facility] Lymphocytes 21.5 20.0 - 40.0 04/01/[address] [facility] MCHC 32.7 32.0 - 36.0 04/01/[address] [facility] Hct 29.7 36.0 - 48.0 04/01/[address] [facility] MCV 91.2 80.0 - 98.0 04/01/[address] [facility] MCH 29.8 27.0 - 31.0 04/01/[address] [facility] RDW 18.1 11.5 - 14.5 04/01/[address] [facility] Platelet 204 133 - 450 04/01/[address] [facility] MPV 8.5 7.4 - 10.4 04/01/[address] [facility] Hgb 9.7 12.0 - 16.0 04/01/[address] [facility] WBC 4.4 3.7 - 10.4 04/01/[address] [facility] RBC 3.25 4.20 - 5.40 04/01/2018 [facility] CHEM PANEL eGFR 24 03/31/2018 Result [...] should be multiplied by the estimated BMI. [facility] CHEM PANEL Chloride Lvl 108 95 - 109 03/31/2018 [facility] CHEM PANEL Potassium Lvl 5.0 3.5 - 5.1 03/31/2018 [facility] CHEM PANEL Calcium Lvl 8.3 8.5 - 10.5 03/31/2018 [facility] CHEM PANEL AGAP 10.0 10.0 - 20.0 03/31/2018 [facility] CHEM PANEL CO2 27 24 - 32 03/31/2018 [facility] CHEM PANEL Glucose Lvl 113 70 - 99 03/31/2018 [facility] CHEM PANEL Sodium Lvl 140 135 - 145 03/31/2018 [facility] CHEM PANEL Creatinine Lvl 2.08 0.50 - 1.40 03/31/2018 [facility] CHEM PANEL BUN 30 7 - 22 03/31/2018 [facility] ELECTROLYTES AGAP 10.9 10.0 - 20.0 03/30/2018 [facility] ELECTROLYTES Calcium Lvl 8.2 8.5 - 10.5 03/30/2018 [facility] ELECTROLYTES CO2 26 24 - 32 03/30/2018 [facility] ELECTROLYTES eGFR 24 03/30/2018 Result Comment: [...] should be multiplied by the estimated BMI. [facility] ELECTROLYTES Glucose Lvl 96 70 - 99 03/30/2018 [facility] ELECTROLYTES Creatinine Lvl 2.1 2 0.50 - 1.40 03/30/2018 [facility] ELECTROLYTES BUN 29 7 - 22 03/30/2018 [facility] ELECTROLYTES Potassium Lvl 4.9 3.5 - 5.1 03/30/2018 [facility] ELECTROLYTES Chloride Lvl 106 95 - 109 03/30/2018 [facility] ELECTROLYTES Sodium Lvl 138 135 - 145 03/30/2018 [facility] HEMATOLOGY Monocytes # 0.8 0.0 - 0.8 03/30/2018 [facility] HEMATOLOGY Eosinophils # 0.3 0.0 - 0.5 03/30/2018 [facility] HEMATOLOGY Lymphocytes # 1.2 1.0 - 5.5 03/30/2018 [facility] HEMATOLOGY Segs-Bands # 2.4 1.5 - 8.1 03/30/2018 [facility] HEMATOLOGY Basophils 0.6 0.0 - 1.0 03/30/2018 [facility] HEMATOLOGY Segs 51.9 45.0 - 75.0 03/30/2018 [facility] HEMATOLOGY Monocytes 17.0 2.0 - 12.0 03/30/2018 [facility] HEMATOLOGY Eosinophils 5.6 0.0 - 4.0 03/30/2018 [facility] HEMATOLOGY Lymphocytes 24.9 20.0 - 40.0 03/30/[address] [facility] MCH 30.0 27.0 - 31.0 03/30/[address] [facility] MPV 8.7 7.4 - 10.4 03/30/2018 [facility] HEMATOLOGY MCHC 33.5 32.0 - 36.0 03/30/2018 [facility] HEMATOLOGY Platelet 136 133 - 450 03/30/2018 [facility] HEMATOLOGY RBC 2.99 4.20 - 5.40 03/30/2018 [facility] HEMATOLOGY RDW 17.3 11.5 - 14.5 03/30/2018 [facility] HEMATOLOGY WBC 4.6 3.7 - 10.4 03/30/2018 [facility] HEMATOLOGY Hct 26.8 36.0 - 48.0 03/30/2018 [facility] HEMATOLOGY Hgb 9.0 12.0 - 16.0 03/30/2018 [facility] HEMATOLOGY MCV 89.6 80.0 - 98.0 03/30/2018 [facility] HEMATOLOGY RDW 17.2 11.5 - 14.5 03/29/2018 [facility] HEMATOLOGY Platelet 117 133 - 450 03/29/2018 [facility] HEMATOLOGY MCV 90.5 80.0 - 98.0 03/29/2018 [facility] HEMATOLOGY MCH 29.5 27.0 - 31.0 03/29/2018 [facility] HEMATOLOGY MCHC 32.6 32.0 - 36.0 03/29/2018 [facility] HEMATOLOGY MPV 8.9 7.4 - 10.4 03/29/2018 [facility] HEMATOLOGY WBC 4.7 3.7 - 10.4 03/29/2018 [facility] HEMATOLOGY RBC 3.04 4.20 - 5.40 03/29/[address] [facility] Hgb 9.0 12.0 - 16.0 03/29/2018 [facility] HEMATOLOGY Hct 27.5 36.0 - 48.0 03/29/2018 [facility] HEMATOLOGY Lymphocytes # 1.1 1.0 - 5.5 03/29/2018 [facility] HEMATOLOGY Monocytes # 0.7 0.0 - 0.8 03/29/2018 [facility] HEMATOLOGY Eosinophils # 0.2 0.0 - 0.5 03/29/2018 [facility] HEMATOLOGY Basophils 0.5 0.0 - 1.0 03/29/[address] [facility] Segs-Bands # 2.5 1.5 - 8.1 03/29/[address] [facility] Monocytes 16.0 2.0 - 12.0 03/29/[address] [facility] Eosinophils 5.1 0.0 - 4.0 03/29/[address] [facility] Lymphocytes 24.3 20.0 - 40.0 03/29/[address] [facility] Segs 54.1 45.0 - 75.0 03/29/2018 [facility] IMMUNOLOGY Prealbumin 11.4 18.0 - 45.0 03/29/2018 [facility] IMMUNOLOGY Hep Bs Ag Negat zaria *NA* (03/23/18 1:20 PM) Negative 03/23/2018 [facility] CHEM PANEL Magnesium Lvl 1.9 1.8 - 2.4 03/22/2018 [facility] CHEM PANEL Total Protein 6.5 6.4 - 8.4 03/22/2018 [facility] CHEM PANEL Albumin Lvl 3.5 3.5 - 5.0 03/22/2018 [facility] IMMUNOLOGY Prealbumin 10.2 18.0 - 45.0 03/22/2018 [facility] SPECIAL CHEMISTRY Hgb A1C 6.4 <=5.6 % 03/22/2018 [facility] ELECTROLYTES CO2 27 24 - 32 03/21/2018 [facility] ELECTROLYTES eGFR 9 03/21/2018 Result Comment: [...] should be multiplied by the estimated BMI. [facility] ELECTROLYTES AGAP 15.6 10.0 - 20.0 03/21/2018 [facility] ELECTROLYTES Calcium Lvl 8.2 8.5 - 10.5 03/21/2018 [facility] ELECTROLYTES Chloride Lvl 97 95 - 109 03/21/2018 [facility] ELECTROLYTES Sodium Lvl 136 135 - 145 03/21/2018 [facility] ELECTROLYTES Potassium Lvl 3.6 3.5 - 5.1 03/21/2018 [facility] ELECTROLYTES Glucose Lvl 321 70 - 99 03/21/2018 [facility] ELECTROLYTES Creatinine Lvl 4.7 4 0.50 - 1.40 03/21/2018 [facility] ELECTROLYTES BUN 35 7 - 22 03/21/2018 [facility] HEMATOLOGY MCHC 33.3 32.0 - 36.0 03/21/2018 [facility] HEMATOLOGY MCV 87.9 80.0 - 98.0 03/21/[address] [facility] MCH 29.3 27.0 - 31.0 03/21/2018 [facility] HEMATOLOGY Hgb 8.8 12.0 - 16.0 03/21/2018 [facility] HEMATOLOGY RBC 3.02 4.20 - 5.40 03/21/2018 [facility] HEMATOLOGY Hct 26.5 36.0 - 48.0 03/21/2018 [facility] HEMATOLOGY MPV 9.7 7.4 - 10.4 03/21/2018 [facility] HEMATOLOGY WBC 11.7 3.7 - 10.4 03/21/2018 [facility] HEMATOLOGY Platelet 144 133 - 450 03/21/2018 [facility] HEMATOLOGY RDW 16.0 11.5 - 14.5 03/21/2018 [facility] HEMATOLOGY Segs 83.1 45.0 - 75.0 03/21/2018 [facility] HEMATOLOGY Lymphocytes 6.2 20.0 - 40.0 03/21/2018 [facility] HEMATOLOGY Basophils 0.4 0.0 - 1.0 03/21/[address] [facility] Segs-Bands # 9.7 1.5 - 8.1 03/21/2018 [facility] HEMATOLOGY Eosinophils 1.3 0.0 - 4.0 03/21/2018 [facility] HEMATOLOGY Monocytes 9.0 2.0 - 12.0 03/21/2018 [facility] HEMATOLOGY Eosinophils # 0.2 0.0 - 0.5 03/21/2018 [facility] HEMATOLOGY Monocytes # 1.1 0.0 - 0.8 03/21/2018 [facility] HEMATOLOGY Lymphocytes # 0.7 1.0 - 5.5 03/21/2018 [facility] BLOOD BANK RESULTS RBC product Product available 1 (03/20/18 10:11 AM) 03/20/2018 Result Comment: 03/20/2018 1 0:35 [id number]
notified Rossy [facility] CHEM PANEL eGFR 14 03/20/2018 Result [...] should be multiplied by the estimated BMI. [facility] CHEM PANEL Glucose Lvl 241 70 - 99 03/20/2018 [facility] CHEM PANEL BUN 23 7 - 22 03/20/2018 [facility] CHEM PANEL Sodium Lvl 137 135 - 145 03/20/2018 [facility] CHEM PANEL Potassium Lvl 3.7 3.5 - 5.1 03/20/2018 [facility] CHEM PANEL Chloride Lvl 97 95 - 109 03/20/2018 [facility] CHEM PANEL CO2 26 24 - 32 03/20/2018 [facility] CHEM PANEL Calcium Lvl 7.9 8.5 - 10.5 03/20/2018 [facility] CHEM PANEL Creatinine Lvl 3.23 0.50 - 1.40 03/20/2018 [facility] CHEM PANEL AGAP 17.7 10.0 - 20.0 03/20/2018 [facility] CHEM PANEL Magnesium Lvl 2.0 1.8 - 2.4 03/20/2018 [facility] HEMATOLOGY Basophils 0.3 0.0 - 1.0 03/20/[address] [facility] Segs-Bands # 8.9 1.5 - 8.1 03/20/[address] [facility] Lymphocytes # 0.7 1.0 - 5.5 03/20/2018 [facility] HEMATOLOGY Eosinophils # 0.2 0.0 - 0.5 03/20/[address] [facility] Monocytes # 1.1 0.0 - 0.8 03/20/[address] [facility] Segs 81.9 45.0 - 75.0 03/20/2018 [facility] HEMATOLOGY Eosinophils 1.4 0.0 - 4.0 03/20/[address] [facility] Monocytes 10.3 2.0 - 12.0 03/20/[address] [facility] Lymphocytes 6.1 20.0 - 40.0 03/20/[address] [facility] WBC 10.9 3.7 - 10.4 03/20/[address] [facility] RBC 2.54 4.20 - 5.40 03/20/[address] [facility] MCH 29.4 27.0 - 31.0 03/20/[address] [facility] MCV 87.5 80.0 - 98.0 03/20/[address] [facility] Hgb 7.5 12.0 - 16.0 03/20/[address] [facility] Hct 22.2 36.0 - 48.0 03/20/[address] [facility] MCHC 33.7 32.0 - 36.0 03/20/[address] [facility] MPV 9.4 7.4 - 10.4 03/20/[address] [facility] RDW 16.1 11.5 - 14.5 03/20/[address] [facility] Platelet 153 133 - 450 03/20/2018 [facility] BLOOD BANK RESULTS Antibody Scrn Negative (03/19/18 9:40 AM) 03/19/2018 [facility] BLOOD BANK RESULTS ABO/Rh O POS 03/19/2018 [facility] CHEM PANEL eGFR 7 03/19/2018 Result [...] should be multiplied by the estimated BMI. [facility] CHEM PANEL Glucose Lvl 171 70 - 99 03/19/2018 [facility] CHEM PANEL Creatinine Lvl 5.60 0.50 - 1.40 03/19/2018 [facility] CHEM PANEL BUN 47 7 - 22 03/19/2018 [facility] CHEM PANEL AGAP 17.9 10.0 - 20.0 03/19/2018 [facility] CHEM PANEL Potassium Lvl 4.9 3.5 - 5.1 03/19/2018 [facility] CHEM PANEL Chloride Lvl 100 95 - 109 03/19/2018 [facility] CHEM PANEL CO2 20 24 - 32 03/19/2018 [facility] CHEM PANEL Calcium Lvl 8.6 8.5 - 10.5 03/19/2018 [facility] CHEM PANEL Sodium Lvl 133 135 - 145 03/19/2018 [facility] CHEM PANEL Magnesium Lvl 2.1 1.8 - 2.4 03/19/2018 [facility] CHEM PANEL Magnesium Lvl 2.2 1.8 - 2.4 03/18/2018 [facility] HEMATOLOGY WBC 12.2 3.7 - 10.4 03/18/2018 [facility] HEMATOLOGY RDW 15.7 11.5 - 14.5 03/18/2018 [facility] HEMATOLOGY MCV 88.1 80.0 - 98.0 03/18/2018 [facility] HEMATOLOGY MCHC 33.4 32.0 - 36.0 03/18/2018 [facility] HEMATOLOGY Platelet 146 133 - 450 03/18/2018 [facility] HEMATOLOGY RBC 2.66 4.20 - 5.40 03/18/[address] [facility] MCH 29.4 27.0 - 31.0 03/18/2018 [facility] HEMATOLOGY Hct 23.4 36.0 - 48.0 03/18/2018 [facility] HEMATOLOGY Hgb 7.8 12.0 - 16.0 03/18/2018 [facility] HEMATOLOGY MPV 9.4 7.4 - 10.4 03/18/2018 [facility] HEMATOLOGY Lymphocytes # 1.0 1.0 - 5.5 03/18/2018 [facility] HEMATOLOGY Segs-Bands # 9.9 1.5 - 8.1 03/18/2018 [facility] HEMATOLOGY Eosinophils # 0.2 0.0 - 0.5 03/18/2018 [facility] HEMATOLOGY Monocytes # 1.0 0.0 - 0.8 03/18/2018 [facility] HEMATOLOGY Basophils 0.3 0.0 - 1.0 03/18/2018 [facility] HEMATOLOGY Eosinophils 1.4 0.0 - 4.0 03/18/2018 [facility] HEMATOLOGY Monocytes 8.6 2.0 - 12.0 03/18/2018 [facility] HEMATOLOGY Segs 81.1 45.0 - 75.0 03/18/[address] [facility] Lymphocytes 8.6 20.0 - 40.0 03/18/2018 [facility] MOLECULAR DIAGNOSTIC C difficile DNA Negative (03/15/18 12:43 PM) Negative 03/15/2018 [facility] URINE AND STOOL Occult Bld Stl Positive *ABN* (03/15/18 12:43 PM) Negative 03/15/[address] [facility] Baso Stipplin Slight 03/14/[address] [facility] Anisocyte 1+ *ABN* (03/14/18 3:48 AM) None Seen 03/14/[address] [facility] Large Plt Slight 03/14/2018 [facility] ANEMIA STUDY Ferritin Lvl 272 5 - 204 03/13/2018 [facility] ANEMIA STUDY UIBC 105 110 - 370 03/13/2018 [facility] ANEMIA STUDY % [place] Fe 17 12 - 57 03/13/2018 [facility] ANEMIA STUDY Iron 22 30 - 160 03/13/2018 [facility] ANEMIA STUDY TIBC 127 228 - 428 03/13/2018 [facility] CHEM PANEL Mg Therap (LD) 2.5 4.5 - 7.5 03/11/2018 [facility] Hep B Core Ab Posit zaria *NA* (03/11/18 4:40 AM) Negative 03/11/2018 [facility] Hep C Ab Posit zaria *ABN* (03/11/18 4:40 AM) 03/11/2018 [facility] Hep Bs Ab 35.8 <=7.4 mIU/mL 03/11/2018 [facility] IMMUNOLOGY Hep Bs Ag Negat zaria *NA* (03/11/18 4:40 AM) Negative 03/11/2018 [facility] BLOOD BANK RESULTS RBC product Product available 2 (03/10/18 1:55 PM) 03/10/2018 Result Comment: 03/10/2018 1 4:06 [id number]
Called to _NURSE JOSE at _03/10/2018 14:03 by TD_. [facility] CHEM PANEL Mg Therap (LD) 2.4 4.5 - 7.5 03/10/2018 [facility] CHEM PANEL Mg Therap (LD) 2.3 4.5 - 7.5 03/09/2018 [facility] HEMATOLOGY Plt Morph Cathy l (03/08/18 6:52 PM) 03/08/2018 [facility] HEMATOLOGY RBC Morph Cathy l (03/08/18 6:52 PM) 03/08/2018 [facility] HEMATOLOGY Bands 9.0 0.0 - 11.0 03/08/2018 [facility] HEMATOLOGY Tot Cell Ct 100 03/08/2018 [facility] BLOOD BANK RESULTS ABO/Rh O POS 03/08/2018 [facility] BLOOD BANK RESULTS Antibody Scrn Negative (03/08/18 10:53 AM) 03/08/2018 [facility] BLOOD BANK RESULTS RBC product Product available 3 (03/08/18 9:21 AM) 03/08/2018 Result Comment: 03/08/2018 1 3:03 [id number]
KLS notified Etelvina 03/08/2018 12:35 [facility] CHEM PANEL Phosphorus 6.1 2.5 - 4.5 03/08/2018 [facility] CHEM PANEL A/G Ratio 1.1 0.7 - 1.6 03/07/2018 [facility] CHEM PANEL Globulin 3.1 2.7 - 4.2 03/07/2018 [facility] CHEM PANEL B/C Ratio 16 6 - 25 03/07/2018 [facility] CHEM PANEL Bili Total 0.4 0.2 - 1.3 03/07/2018 [facility] CHEM PANEL Alk Phos 67 39 - 136 03/07/2018 [facility] CHEM PANEL AST 48 0 - 37 03/07/2018 [facility] CHEM PANEL ALT 8 0 - 65 03/07/2018 [facility] CHEM PANEL Albumin Lvl 3.5 3.5 - 5.0 03/07/2018 [facility] CHEM PANEL Total Protein 6.6 6.4 [...] HEMATOLOGY PTT 36.3 22.9 - 35.8 03/06/2018 [facility] HEMATOLOGY Basophils # 0.1 0.0 - 0.2 03/06/2018 [facility] HEMATOLOGY INR 1.64 0.85 - 1.17 03/05/2018 [facility] HEMATOLOGY PT 19.5 12.0 - 14.7 03/05/2018 [facility] HEMATOLOGY PTT 37.7 22.9 - 35.8 03/05/2018 [facility] HEMATOLOGY Basophils # 0.1 0.0 - 0.2 03/05/2018 [facility] CHEM PANEL B/C Ratio 18 6 - 25 03/05/2018 [facility] CHEM PANEL Phosphorus 4.0 2.5 - 4.5 03/05/2018 [facility] URINE AND STOOL UA Urobilinogen <=1.0 mg/dL 0.1 - 1.0 03/04/2018 [facility] URINE AND STOOL UA Color Ltyellow 03/04/2018 [facility] URINE AND STOOL UA pH 6.0 5.0 - 8.0 03/04/2018 [facility] URINE AND STOOL UA Spec Grav 1.009 <=1.030 03/04/2018 [facility] URINE AND STOOL UA Turbidity Clear (03/04/18 2:48 PM) Clear 03/04/2018 [facility] URINE AND STOOL UA Ketones Negative mg/dL Negative mg/dL 03/04/2018 [facility] URINE AND STOOL UA Bili Negative *NA* (03/04/18 2:48 PM) Negative 03/04/2018 [facility] URINE AND STOOL UA Blood Negative (03/04/18 2:48 PM) Negative 03/04/2018 [facility] URINE AND STOOL UA Glucose Negative mg/dL Negative mg/dL 03/04/2018 [facility] URINE AND STOOL UA Protein 100 mg/dL Negative mg/dL 03/04/2018 [facility] URINE AND STOOL UA RBC 1 0 - 2 03/04/2018 [facility] URINE AND STOOL UA Bacteria Many /HPF None Seen /HPF 03/04/2018 [facility] URINE AND STOOL UA Leuk Est Trace *ABN* (03/04/18 2:48 PM) Negative 03/04/2018 [facility] URINE AND STOOL UA Sq Epi Occasional /LPF Few /LPF 03/04/2018 [facility] URINE AND STOOL UA WBC 5 0 - 5 03/04/2018 [facility] URINE AND STOOL UA Nitrite Negative (03/04/18 2:48 PM) Negative 03/04/2018 [facility] BLOOD [facility] RESULTS ABO/Rh O POS 03/04/2018 [facility] BLOOD [facility] RESULTS Antibody Scrn Negative (03/04/18 2:23 PM) 03/04/2018 [facility] BLOOD [facility] RESULTS FFP product Product available (03/04/18 12:35 PM) 03/04/2018 [facility] BLOOD BANK RESULTS Platelet product Product available (03/04/18 12:35 PM) 03/04/2018 [facility] CHEM PANEL Phosphorus 3.9 2.5 - 4.5 03/04/2018 [facility] CARDIAC ENZYMES Troponin-I 0.02 0.00 - 0.40 03/02/2018 [facility] CARDIAC ENZYMES Total CK 65 12 - 191 03/02/2018 [facility] CARDIAC ENZYMES Troponin-I 0.04 0.00 - 0.40 03/01/2018 [facility] CARDIAC ENZYMES Total CK 73 12 - 191 03/01/2018 [facility] CARDIAC ENZYMES Troponin-I 0.03 0.00 - 0.40 02/28/2018 [facility] CARDIAC ENZYMES BNP 301 <=100 pg/mL 02/28/2018 [facility] CARDIAC ENZYMES Total CK 136 12 - 191 02/28/2018 [facility] CARDIAC ENZYMES CK MB 1.7 0.5 - 3.6 02/28/2018 [facility] CARDIAC ENZYMES CK MB Index 1.2 0.0 - 2.5 02/28/2018 [facility] ELECTROLYTES AGAP 16.7 10.0 - 20.0 02/21/2018 [facility] ELECTROLYTES eGFR 8 02/21/2018 Result Comment: [...] should be multiplied by the estimated BMI. [facility] ELECTROLYTES Potassium Lvl 4.7 3.5 - 5.1 02/21/2018 [facility] ELECTROLYTES BUN 82 7 - 22 02/21/2018 [facility] ELECTROLYTES Glucose Lvl 77 70 - 99 02/21/2018 [facility] ELECTROLYTES Creatinine Lvl 4.9 6 0.50 - 1.40 02/21/2018 [facility] ELECTROLYTES Sodium Lvl 138 135 - 145 02/21/2018 [facility] ELECTROLYTES CO2 24 24 - 32 02/21/2018 [facility] ELECTROLYTES Chloride Lvl 102 95 - 109 02/21/2018 [facility] ELECTROLYTES Calcium Lvl 7.8 8.5 - 10.5 02/21/2018 [facility] HEMATOLOGY PTT 59.5 22.9 - 35.8 02/21/2018 [facility] CHEM PANEL Albumin Lvl 3.4 3.5 - 5.0 02/20/2018 [facility] CHEM PANEL Alk Phos 68 39 - 136 02/20/2018 [facility] CHEM PANEL Total Protein 6.4 6.4 - 8.4 02/20/2018 [facility] CHEM PANEL ALT 17 0 - 65 02/20/2018 [facility] CHEM PANEL AST 35 0 - 37 02/20/2018 [facility] CHEM PANEL Bili Total 0.3 0.2 - 1.3 02/20/2018 [facility] CHEM PANEL Bili Direct <0.1 0.0 - 0.3 02/20/2018 [facility] CHEM PANEL Bili Indirect >0.2 0.0 - 1.0 02/20/2018 [facility] CHEM PANEL A/G Ratio 1.1 0.7 - 1.6 02/20/2018 [facility] CHEM PANEL Globulin 3.0 2.7 - 4.2 02/20/2018 [facility] CHEM PANEL eGFR 7 02/20/2018 Result [...] should be multiplied by the estimated BMI. [facility] CHEM PANEL BUN 82 7 - 22 02/20/2018 [facility] CHEM PANEL Glucose Lvl 92 70 - 99 02/20/2018 [facility] CHEM PANEL Creatinine Lvl 5.75 0.50 - 1.40 02/20/2018 [facility] CHEM PANEL Chloride Lvl 102 95 - 109 02/20/2018 [facility] CHEM PANEL Calcium Lvl 7.5 8.5 - 10.5 02/20/2018 [facility] CHEM PANEL Potassium Lvl 4.9 3.5 - 5.1 02/20/2018 [facility] CHEM PANEL CO2 27 24 - 32 02/20/2018 [facility] CHEM PANEL Sodium Lvl 140 135 - 145 02/20/2018 [facility] CHEM PANEL AGAP 15.9 10.0 - 20.0 02/20/2018 [facility] HEMATOLOGY PTT 70.0 22.9 - 35.8 02/20/2018 [facility] HEMATOLOGY Lymphocytes # 1.5 1.0 - 5.5 02/20/2018 [facility] HEMATOLOGY Eosinophils # 0.5 0.0 - 0.5 02/20/2018 [facility] HEMATOLOGY Monocytes # 0.5 0.0 - 0.8 02/20/2018 [facility] HEMATOLOGY Segs-Bands # 5.4 1.5 - 8.1 02/20/2018 [facility] HEMATOLOGY Segs 68.0 45.0 - 75.0 02/20/[address] [facility] Lymphocytes 18.4 20.0 - 40.0 02/20/2018 [facility] HEMATOLOGY Monocytes 6.9 2.0 - 12.0 02/20/2018 [facility] HEMATOLOGY Eosinophils 6.3 0.0 - 4.0 02/20/2018 [facility] HEMATOLOGY Basophils 0.4 0.0 - 1.0 02/20/2018 [facility] HEMATOLOGY RDW 14.1 11.5 - 14.5 02/20/[address] [facility] MPV 9.1 7.4 - 10.4 02/20/[address] [facility] RBC 2.98 4.20 - 5.40 02/20/[address] [facility] Platelet 138 133 - 450 02/20/[address] [facility] MCHC 33.8 32.0 - 36.0 02/20/2018 [facility] HEMATOLOGY MCV 86.3 80.0 - 98.0 02/20/2018 [facility] HEMATOLOGY MCH 29.2 27.0 - 31.0 02/20/2018 [facility] HEMATOLOGY Hgb 8.7 12.0 - 16.0 02/20/2018 [facility] HEMATOLOGY Hct 25.7 36.0 - 48.0 02/20/[address] [facility] WBC 7.9 3.7 - 10.4 02/20/2018 [facility] HEMATOLOGY INR 1.05 0.85 - 1.17 02/19/2018 [facility] HEMATOLOGY PT 13.7 12.0 - 14.7 02/19/2018 [facility] HEMATOLOGY PTT 63.8 22.9 - 35.8 02/19/2018 [facility] CHEM PANEL Bili Direct 0.1 0.0 - 0.3 02/19/2018 [facility] CHEM PANEL eGFR 6 02/19/2018 Result [...] should be multiplied by the estimated BMI. [facility] CHEM PANEL Alk Phos 72 39 - 136 02/19/2018 [facility] CHEM PANEL Bili Total 0.4 0.2 - 1.3 02/19/2018 [facility] CHEM PANEL AST 33 0 - 37 02/19/2018 [facility] CHEM PANEL ALT 16 0 - 65 02/19/2018 [facility] CHEM PANEL BUN 81 7 - 22 02/19/2018 [facility] CHEM PANEL CO2 23 24 - 32 02/19/2018 [facility] CHEM PANEL AGAP 17.9 10.0 - 20.0 02/19/2018 [facility] CHEM PANEL Chloride Lvl 101 95 - 109 02/19/2018 [facility] CHEM PANEL Calcium Lvl 8.2 8.5 - 10.5 02/19/2018 [facility] CHEM PANEL Sodium Lvl 137 135 - 145 02/19/2018 [facility] CHEM PANEL A/G Ratio 0.9 0.7 - 1.6 02/19/2018 [facility] CHEM PANEL Globulin 3.8 2.7 - 4.2 02/19/2018 [facility] CHEM PANEL Albumin Lvl 3.6 3.5 - 5.0 02/19/2018 [facility] CHEM PANEL Potassium Lvl 4.9 3.5 - 5.1 02/19/2018 [facility] CHEM PANEL Glucose Lvl 110 70 - 99 02/19/2018 [facility] CHEM PANEL Total Protein 7.4 6.4 - 8.4 02/19/2018 [facility] CHEM PANEL B/C Ratio 13 6 - 25 02/19/2018 [facility] CHEM PANEL Creatinine Lvl 6.25 0.50 - 1.40 02/19/2018 [facility] HEMATOLOGY Hct 27.6 36.0 - 48.0 02/19/2018 [facility] HEMATOLOGY Hgb 9.4 12.0 - 16.0 02/19/2018 [facility] HEMATOLOGY RBC 3.21 4.20 - 5.40 02/19/2018 [facility] HEMATOLOGY WBC 5.6 3.7 - 10.4 02/19/2018 [facility] HEMATOLOGY Platelet 136 133 - 450 02/19/[address] [facility] MCH 29.4 27.0 - 31.0 02/19/[address] [facility] MCV 86.1 80.0 - 98.0 02/19/[address] [facility] RDW 14.0 11.5 - 14.5 02/19/[address] [facility] MCHC 34.2 32.0 - 36.0 02/19/[address] [facility] MPV 8.9 7.4 - 10.4 02/19/2018 [facility] HEMATOLOGY Lymphocytes # 1.3 1.0 - 5.5 02/19/2018 [facility] HEMATOLOGY Segs-Bands # 3.7 1.5 - 8.1 02/19/2018 [facility] HEMATOLOGY Basophils 0.3 0.0 - 1.0 02/19/2018 [facility] HEMATOLOGY Eosinophils 2.3 0.0 - 4.0 02/19/2018 [facility] HEMATOLOGY Eosinophils # 0.1 0.0 - 0.5 02/19/2018 [facility] HEMATOLOGY Monocytes # 0.4 0.0 - 0.8 02/19/2018 [facility] HEMATOLOGY Segs 66.7 45.0 - 75.0 02/19/2018 [facility] HEMATOLOGY Monocytes 7.2 2.0 - 12.0 02/19/2018 [facility] HEMATOLOGY Lymphocytes 23.5 20.0 - 40.0 02/19/2018 [facility] CHEM PANEL Albumin Lvl 2.6 3.5 - 5.0 02/18/2018 [facility] CHEM PANEL Bili Indirect >0.1 0.0 - 1.0 02/18/2018 [facility] CHEM PANEL Globulin 3.9 2.7 - 4.2 02/18/2018 [facility] CHEM PANEL A/G Ratio 0.7 0.7 - 1.6 02/18/2018 [facility] CHEM PANEL Bili Direct <0.1 0.0 - 0.3 02/18/2018 [facility] CHEM PANEL Alk Phos 79 39 - 136 02/18/2018 [facility] CHEM PANEL Bili Total 0.2 0.2 - 1.3 02/18/2018 [facility] CHEM PANEL ALT 16 0 - 65 02/18/2018 [facility] CHEM PANEL Albumin Lvl 2.6 3.5 - 5.0 02/18/2018 [facility] CHEM PANEL Total Protein 6.5 6.4 - 8.4 02/18/2018 [facility] CHEM PANEL AST 33 0 - 37 02/18/2018 [facility] IMMUNOLOGY Hep A IgM Negat zaria *NA* (02/18/18 2:16 PM) Negative 02/18/2018 [facility] IMMUNOLOGY Hep Bs Ag Negat zaria *NA* (02/18/18 2:16 PM) Negative 02/18/2018 [facility] MOLECULAR DIAGNOSTIC HCV RNA Log10 6.8 02/18/2018 [facility] MOLECULAR DIAGNOSTIC HCV RNA VirLoad [id number] 02/18/2018 [facility] TUMOR MARKERS AFP 2.1 0.0 - 11.0 02/18/2018 [facility] BLOOD BANK RESULTS Antibody Scrn Negative (02/18/18 12:40 PM) 02/18/2018 [facility] BLOOD BANK RESULTS ABO/Rh O POS 02/18/2018 [facility] BLOOD BANK RESULTS RBC product Product available 1 (02/18/18 9:25 AM) 02/18/2018 Result Comment: 02/18/2018 1 4:37 [id number]
notified Sohail [facility] HEMATOLOGY Lymphocytes # 1.6 1.0 - 5.5 02/18/2018 [facility] HEMATOLOGY Segs-Bands # 3.3 1.5 - 8.1 02/18/2018 [facility] HEMATOLOGY Eosinophils # 0.5 0.0 - 0.5 02/18/2018 [facility] HEMATOLOGY Monocytes # 0.5 0.0 - 0.8 02/18/2018 [facility] HEMATOLOGY Eosinophils 8.8 0.0 - 4.0 02/18/2018 [facility] HEMATOLOGY Monocytes 8.6 2.0 - 12.0 02/18/2018 [facility] HEMATOLOGY Basophils 0.3 0.0 - 1.0 02/18/2018 [facility] HEMATOLOGY Lymphocytes 26.3 20.0 - 40.0 02/18/[address] [facility] Segs 56.0 45.0 - 75.0 02/18/[address] [facility] MPV 8.6 7.4 - 10.4 02/18/[address] [facility] RDW 14.3 11.5 - 14.5 02/18/[address] [facility] Platelet 133 133 - 450 02/18/[address] [facility] MCHC 33.6 32.0 - 36.0 02/18/[address] [facility] MCH 29.0 27.0 - 31.0 02/18/[address] [facility] Hct 22.0 36.0 - 48.0 02/18/[address] [facility] MCV 86.5 80.0 - 98.0 02/18/[address] [facility] RBC 2.54 4.20 - 5.40 02/18/[address] [facility] Hgb 7.4 12.0 - 16.0 02/18/[address] [facility] WBC 5.9 3.7 - 10.4 02/18/2018 [facility] HEMATOLOGY INR 1.56 0.85 - 1.17 02/18/[address] [facility] PT 18.8 12.0 - 14.7 02/18/2018 [facility] CARDIAC ENZYMES Troponin-I 7.70 0.00 - 0.40 02/16/2018 Result Comment: Critical Result(s) crews d to Pam Lema at 02/16/2018 10:06 by VF. Read back OK. [facility] CARDIAC ENZYMES Total CK 221 12 - 191 02/16/2018 [facility] CARDIAC ENZYMES CK MB Index 5.1 0.0 - 2.5 02/16/2018 [facility] CARDIAC ENZYMES CK MB 11.2 0.5 - 3.6 02/16/2018 [facility] HEMATOLOGY INR 1.10 0.85 - 1.17 02/16/2018 [facility] HEMATOLOGY PT 14.2 12.0 - 14.7 02/16/2018 [facility] CARDIAC ENZYMES Total CK 258 12 - 191 02/16/2018 [facility] CARDIAC ENZYMES Troponin-I 11.00 0.00 - 0.40 02/16/2018 Result Comment: Critical Result(s) crews d to Cem Osman at 02/16/2018 03:14 by . Read back OK. [facility] CARDIAC ENZYMES CK MB 16.3 0.5 - 3.6 02/16/2018 [facility] CARDIAC ENZYMES CK MB Index 6.3 0.0 - 2.5 02/16/2018 [facility] LIPIDS VLDL 24 02/16/2018 [facility] LIPIDS LDL (Calculated) 70 <=99 mg/dL 02/16/2018 [facility] LIPIDS HDL 38 >=61 mg/dL 02/16/2018 [facility] LIPIDS Chol 132 <=199 mg/dL 02/16/2018 [facility] LIPIDS Trig 121 <=149 mg/dL 02/16/2018 [facility] LIPIDS CHD Risk 3.47 3.90 - 5.80 02/16/2018 [facility] SPECIAL CHEMISTRY Hgb A1C 7.1 <=5.6 % 02/16/2018 [facility] CARDIAC ENZYMES Total CK 324 12 - 191 02/16/2018 [facility] CARDIAC ENZYMES CK MB 22.2 0.5 - 3.6 02/16/2018 [facility] CARDIAC ENZYMES Troponin-I 11.00 0.00 - 0.40 02/16/2018 Result Comment: Critical Result(s) crews d to nandini martin at 02/15/2018 20:53 by douglas. Read back OK. [facility] LIPIDS CHD Risk 3.92 3.90 - 5.80 02/15/2018 [facility] LIPIDS LDL (Calculated) 81 <=99 mg/dL 02/15/2018 [facility] LIPIDS VLDL 36 02/15/2018 [facility] LIPIDS HDL 40 >=61 mg/dL 02/15/2018 [facility] LIPIDS Trig 179 <=149 mg/dL 02/15/2018 [facility] LIPIDS Chol 157 <=199 mg/dL 02/15/2018 [facility] SPECIAL CHEMISTRY Hgb A1C 7.3 <=5.6 % 02/15/2018 [facility] URINE AND STOOL UA Urobilinogen <=1.0 mg/dL 0.1 - 1.0 02/15/2018 [facility] URINE AND STOOL UA RBC 4 0 - 2 02/15/2018 [facility] URINE AND STOOL UA Bacteria Occasional /HPF None Seen /HPF 02/15/2018 [facility] URINE AND STOOL UA Hyal Cast 9 0 - 2 02/15/2018 [facility] URINE AND STOOL UA WBC 3 0 - 5 02/15/2018 [facility] URINE AND STOOL UA Blood Small *ABN* (02/14/18 7:01 PM) Negative 02/15/2018 [facility] URINE AND STOOL UA Bili Negative *NA* (02/14/18 7:01 PM) Negative 02/15/2018 [facility] URINE AND STOOL UA Sq Epi Few /LPF Few /LPF 02/15/2018 [facility] URINE AND STOOL UA Leuk Est Trace *ABN* (02/14/18 7:01 PM) Negative 02/15/2018 [facility] URINE AND STOOL UA Nitrite Negative (02/14/18 7:01 PM) Negative 02/15/2018 [facility] URINE AND STOOL UA Turbidity Clear (02/14/18 7:01 PM) Clear 02/15/2018 [facility] URINE AND STOOL UA Glucose 500 mg/dL Negative mg/dL 02/15/2018 [facility] URINE AND STOOL UA Protein >=300 mg/dL Negative mg/dL 02/15/2018 [facility] URINE AND STOOL UA pH 5.0 5.0 - 8.0 02/15/2018 [facility] URINE AND STOOL UA Ketones Negative mg/dL Negative mg/dL 02/15/2018 [facility] URINE AND STOOL UA Spec Grav 1.010 <=1.030 02/15/2018 [facility] URINE AND STOOL UA Color Yellow *NA* (02/14/18 7:01 PM) Yellow 02/15/2018 [facility] CARDIAC ENZYMES CK MB Index 1.6 0.0 - 2.5 02/14/2018 [facility] CHEM PANEL B/C Ratio 21 6 - 02/14/2018 [facility] CHEM PANEL eGFR 02/11/2018 Result Comment: [...] should be multiplied by the estimated BMI. [facility] CHEM PANEL Creatinine Lvl 2.34 0.50 - 1.40 02/11/2018 [facility] CHEM PANEL Sodium Lvl 139 135 - 145 02/11/2018 [facility] CHEM PANEL BUN 46 7 - 22 02/11/2018 [facility] CHEM PANEL Glucose Lvl 76 70 - 99 02/11/2018 [facility] CHEM PANEL Chloride Lvl 106 95 - 109 02/11/2018 [facility] CHEM PANEL CO2 27 24 - 32 02/11/2018 [facility] CHEM PANEL Potassium Lvl 4.5 3.5 - 5.1 02/11/2018 [facility] CHEM PANEL AGAP 10.5 10.0 - 20.0 02/11/2018 [facility] CHEM PANEL Calcium Lvl 8.3 8.5 - 10.5 02/11/2018 [facility] ELECTROLYTES AGAP 11.3 10.0 - 20.0 02/10/2018 [facility] ELECTROLYTES eGFR 24 02/10/2018 Result Comment: [...] should be multiplied by the estimated BMI. [facility] ELECTROLYTES Creatinine Lvl 2.1 2 0.50 - 1.40 02/10/2018 [facility] ELECTROLYTES Calcium Lvl 8.5 8.5 - 10.5 02/10/2018 [facility] ELECTROLYTES CO2 26 24 - 32 02/10/2018 [facility] ELECTROLYTES Chloride Lvl 106 95 - 109 02/10/2018 [facility] ELECTROLYTES Sodium Lvl 139 135 - 145 02/10/2018 [facility] ELECTROLYTES Potassium Lvl 4.3 3.5 - 5.1 02/10/2018 [facility] ELECTROLYTES BUN 40 7 - 22 02/10/2018 [facility] ELECTROLYTES Glucose Lvl 83 70 - 99 02/10/2018 [facility] HEMATOLOGY MPV 8.8 7.4 - 10.4 02/10/2018 [facility] HEMATOLOGY MCV 86.9 80.0 - 98.0 02/10/2018 [facility] HEMATOLOGY MCH 29.3 27.0 - 31.0 02/10/2018 [facility] HEMATOLOGY MCHC 33.7 32.0 - 36.0 02/10/2018 [facility] HEMATOLOGY RDW 14.5 11.5 - 14.5 02/10/2018 [facility] HEMATOLOGY Platelet 143 133 - 450 02/10/2018 [facility] HEMATOLOGY Hct 26.0 36.0 - 48.0 02/10/2018 [facility] HEMATOLOGY WBC 5.9 3.7 - 10.4 02/10/2018 [facility] HEMATOLOGY Hgb 8.8 12.0 - 16.0 02/10/2018 [facility] HEMATOLOGY RBC 2.99 4.20 - 5.40 02/10/2018 [facility] HEMATOLOGY Segs-Bands # 2.7 1.5 - 8.1 02/10/2018 [facility] HEMATOLOGY Lymphocytes # 1.5 1.0 - 5.5 02/10/2018 [facility] HEMATOLOGY Monocytes # 0.9 0.0 - 0.8 02/10/2018 [facility] HEMATOLOGY Eosinophils # 0.8 0.0 - 0.5 02/10/2018 [facility] HEMATOLOGY Eosinophils 13.7 0.0 - 4.0 02/10/2018 [facility] HEMATOLOGY Basophils 0.6 0.0 - 1.0 02/10/2018 [facility] HEMATOLOGY Segs 45.8 45.0 - 75.0 02/10/2018 [facility] HEMATOLOGY Lymphocytes 25.3 20.0 - 40.0 02/10/2018 [facility] HEMATOLOGY Monocytes 14.6 2.0 - 12.0 02/10/2018 [facility] ELECTROLYTES Potassium Lvl 4.9 3.5 - 5.1 02/10/2018 [facility] ANEMIA STUDY TIBC 234 228 - 428 02/09/2018 [facility] ANEMIA STUDY Iron 46 30 - 160 02/09/2018 [facility] ANEMIA STUDY UIBC 188 110 - 370 02/09/2018 [facility] ANEMIA STUDY % [place] Fe 20 12 - 57 02/09/2018 [facility] CARDIAC ENZYMES BNP 78 <=100 pg/mL 02/09/2018 [facility] CHEM PANEL Calcium Lvl 8.0 8.5 - 10.5 02/09/2018 [facility] CHEM PANEL CO2 26 24 - 32 02/09/2018 [facility] CHEM PANEL Chloride Lvl 107 95 - 109 02/09/2018 [facility] CHEM PANEL eGFR 25 02/09/2018 Result [...] should be multiplied by the estimated BMI. [facility] CHEM PANEL Sodium Lvl 141 135 - 145 02/09/2018 [facility] CHEM PANEL BUN 41 7 - 22 02/09/2018 [facility] CHEM PANEL Glucose Lvl 175 70 - 99 02/09/2018 [facility] CHEM PANEL Creatinine Lvl 2.00 0.50 - 1.40 02/09/2018 [facility] CHEM PANEL AGAP 13.3 10.0 - 20.0 02/09/2018 [facility] CHEM PANEL Magnesium Lvl 2.5 1.8 - 2.4 02/09/2018 [facility] ELECTROLYTES Chloride Lvl 108 95 - 109 02/09/2018 [facility] ELECTROLYTES eGFR 25 02/09/2018 Result Comment: [...] should be multiplied by the estimated BMI. [facility] ELECTROLYTES BUN 41 7 - 22 02/09/2018 [facility] ELECTROLYTES Glucose Lvl 179 70 - 99 02/09/2018 [facility] ELECTROLYTES Sodium Lvl 141 135 - 145 02/09/2018 [facility] ELECTROLYTES Creatinine Lvl 2.0 0 0.50 - 1.40 02/09/2018 [facility] ELECTROLYTES Calcium Lvl 7.9 8.5 - 10.5 02/09/2018 [facility] ELECTROLYTES CO2 27 24 - 32 02/09/2018 [facility] ELECTROLYTES AGAP 11.3 10.0 - 20.0 02/09/2018 [facility] HEMATOLOGY Hct 24.1 36.0 - 48.0 02/09/[address] [facility] Hgb 8.0 12.0 - 16.0 02/09/[address] [facility] RBC 2.76 4.20 - 5.40 02/09/[address] [facility] WBC 5.2 3.7 - 10.4 02/09/[address] [facility] MPV 8.6 7.4 - 10.4 02/09/[address] [facility] Platelet 123 133 - 450 02/09/[address] [facility] RDW 14.2 11.5 - 14.5 02/09/[address] [facility] MCHC 33.0 32.0 - 36.0 02/09/[address] [facility] MCH 28.8 27.0 - 31.0 02/09/[address] [facility] MCV 87.4 80.0 - 98.0 02/09/[address] [facility] Lymphocytes 26.2 20.0 - 40.0 02/09/[address] [facility] Segs 48.0 45.0 - 75.0 02/09/2018 [facility] [...] Lymphocytes # 1.4 1.0 - 5.5 02/09/2018 [facility] HEMATOLOGY MPV 8.6 7.4 - 10.4 02/09/2018 [facility] HEMATOLOGY RDW 14.3 11.5 - 14.5 02/09/2018 [facility] HEMATOLOGY MCHC 32.9 32.0 - 36.0 02/09/2018 [facility] HEMATOLOGY Platelet 127 133 - 450 02/09/2018 [facility] HEMATOLOGY WBC 5.1 3.7 - 10.4 02/09/2018 [facility] HEMATOLOGY RBC 2.79 4.20 - 5.40 02/09/2018 [facility] HEMATOLOGY Hgb 8.0 12.0 - 16.0 02/09/2018 [facility] HEMATOLOGY MCV 86.8 80.0 - 98.0 02/09/2018 [facility] HEMATOLOGY Hct 24.2 36.0 - 48.0 02/09/2018 [facility] HEMATOLOGY MCH 28.6 27.0 - 31.0 02/09/2018 [facility] LIPIDS CHD Risk 4.38 3.90 - 5.80 02/09/2018 [facility] LIPIDS Chol 171 <=199 mg/dL 02/09/2018 [facility] LIPIDS VLDL 45 02/09/2018 [facility] LIPIDS LDL (Calculated) 87 <=99 mg/dL 02/09/2018 [facility] LIPIDS Trig 226 <=149 mg/dL 02/09/2018 [facility] LIPIDS HDL 39 >=61 mg/dL 02/09/2018 [facility] SPECIAL CHEMISTRY Hgb A1C 7.7 <=5.6 % 02/09/2018 [facility] CARDIAC ENZYMES Total CK 70 12 - 191 02/09/2018 [facility] CARDIAC ENZYMES Troponin-I <0.02 0.00 - 0.40 02/09/2018 [facility] CARDIAC ENZYMES CK MB Index 2.2 0.0 - 2.5 02/08/2018 [facility] CARDIAC ENZYMES CK MB 1.8 0.5 - 3.6 02/08/2018 [facility] CARDIAC ENZYMES Total CK 82 12 - 191 02/08/2018 [facility] CARDIAC ENZYMES Troponin-I <0.02 0.00 - 0.40 02/08/2018 [facility] URINE AND STOOL UA Hyal Cast 1 0 - 2 02/08/2018 [facility] URINE AND STOOL UA Urobilinogen <=1.0 mg/dL 0.1 - 1.0 02/08/[address] [facility] [address] URINE AND STOOL UA Nitrite Negative (02/08/18 2:25 PM) Negative 02/08/2018 [facility] URINE AND STOOL UA Blood Negative (02/08/18 2:25 PM) Negative 02/08/2018 [facility] URINE AND STOOL UA Leuk Est Negative (02/08/18 2:25 PM) Negative 02/08/2018 [facility] URINE AND STOOL UA Bacteria Moderate /HPF None Seen /HPF 02/08/[address] [facility] [address] URINE AND STOOL UA WBC 2 0 - 5 02/08/2018 [facility] URINE AND STOOL UA RBC 3 0 - 2 02/08/2018 [facility] URINE AND STOOL UA Sq Epi Occasional /LPF Few /LPF 02/08/2018 [facility] URINE AND STOOL UA Bili Negative *NA* (02/08/18 2:25 PM) Negative 02/08/2018 [facility] URINE AND STOOL UA Ketones Negative mg/dL Negative mg/dL 02/08/2018 [facility] URINE AND STOOL UA Protein >=300 mg/dL Negative mg/dL 02/08/2018 [facility] URINE AND STOOL UA Glucose 50 mg/dL Negative mg/dL 02/08/2018 [facility] URINE AND STOOL UA Color Ltyellow 02/08/2018 [facility] URINE AND STOOL UA pH 6.0 5.0 - 8.0 02/08/2018 [facility] URINE AND STOOL UA Spec Grav 1.012 <=1.030 02/08/2018 [facility] URINE AND STOOL UA Turbidity Clear (02/08/18 2:25 PM) Clear 02/08/2018 [facility] CARDIAC ENZYMES CK MB Index 2.0 0.0 - 2.5 02/08/2018 [facility] CARDIAC ENZYMES BNP 85 <=100 pg/mL 02/08/2018 [facility] CARDIAC ENZYMES CK MB 1.8 0.5 - 3.6 02/08/2018 [facility] CARDIAC ENZYMES Troponin-I <0.02 0.00 - 0.40 02/08/2018 [facility] CARDIAC ENZYMES Total CK 89 12 - 191 02/08/2018 [facility] CHEM PANEL Magnesium Lvl 2.5 1.8 - 2.4 02/08/2018 [facility] CHEM PANEL Phosphorus 4.2 2.5 - 4.5 02/08/2018 [facility] CHEM PANEL Globulin 3.9 2.7 - 4.2 02/08/2018 [facility] CHEM PANEL A/G Ratio 0.7 0.7 - 1.6 02/08/2018 [facility] CHEM PANEL Alk Phos 103 39 - 136 02/08/2018 [facility] CHEM PANEL B/C Ratio 22 6 - 25 02/08/2018 [facility] CHEM PANEL Bili Total 0.2 0.2 - 1.3 02/08/2018 [facility] CHEM PANEL Total Protein 6.7 6.4 - 8.4 02/08/2018 [facility] CHEM PANEL ALT 14 0 - 65 02/08/2018 [facility] CHEM PANEL AST 30 0 - 37 02/08/2018 [facility] CHEM PANEL Albumin Lvl 2.8 3.5 - 5.0 02/08/2018 [facility] CHEM PANEL Ammonia 18.0 <=45.0 uMol/L 02/08/2018 [facility] HEMATOLOGY Platelet 155 133 - 450 01/31/2017 [facility] HEMATOLOGY RDW 13.9 11.5 - 14.5 01/31/2017 [facility] HEMATOLOGY MPV 8.1 7.4 - 10.4 01/31/2017 [facility] HEMATOLOGY WBC 5.1 3.7 - 10.4 01/31/2017 [facility] HEMATOLOGY MCHC 32.8 32.0 - 36.0 01/31/2017 [facility] HEMATOLOGY RBC 2.84 4.20 - 5.40 01/31/[address] [facility] Hct 25.0 36.0 - 48.0 01/31/[address] [facility] Hgb 8.2 12.0 - 16.0 01/31/2017 [facility] HEMATOLOGY MCV 87.9 80.0 - 98.0 01/31/[address] [facility] MCH 28.8 27.0 - 31.0 01/31/2017 [facility] HEMATOLOGY Monocytes 10.6 2.0 - 12.0 01/31/2017 [facility] HEMATOLOGY Lymphocytes 26.6 20.0 - 40.0 01/31/2017 [facility] HEMATOLOGY Basophils 0.5 0.0 - 1.0 01/31/2017 [facility] HEMATOLOGY Eosinophils 8.3 0.0 - 4.0 01/31/2017 [facility] HEMATOLOGY Eosinophils # 0.4 0.0 - 0.5 01/31/2017 [facility] HEMATOLOGY Segs 54.0 45.0 - 75.0 01/31/[address] [facility] Lymphocytes # 1.4 1.0 - 5.5 01/31/[address] [facility] Monocytes # 0.5 0.0 - 0.8 01/31/[address] [facility] Segs-Bands # 2.8 1.5 - 8.1 01/31/2017 [facility] CHEM PANEL Creatinine Lvl 1.30 0.50 - 1.40 01/30/2017 [facility] CHEM PANEL BUN 24 7 - 22 01/30/2017 [facility] CHEM PANEL Calcium Lvl 8.1 8.5 - 10.5 01/30/2017 [facility] CHEM PANEL AGAP 8.0 10.0 - 20.0 01/30/2017 [facility] CHEM PANEL Potassium Lvl 4.0 3.5 - 5.1 01/30/2017 [facility] CHEM PANEL Sodium Lvl 140 135 - 145 01/30/2017 [facility] CHEM PANEL Glucose Lvl 109 70 - 99 01/30/2017 [facility] CHEM PANEL eGFR 43 01/30/2017 Result [...] PANEL CO2 34 24 - 32 01/30/2017 [facility] CHEM PANEL eGFR 39 01/29/2017 Result [...] Glucose Lvl 98 70 - 99 01/29/2017 [facility] CHEM PANEL Creatinine Lvl 1.40 0.50 - 1.40 01/29/2017 [facility] CHEM PANEL BUN 26 7 - 22 01/29/2017 [facility] CHEM PANEL Sodium Lvl 141 135 - 145 01/29/2017 [facility] CHEM PANEL Potassium Lvl 4.3 3.5 - 5.1 01/29/2017 [facility] CHEM PANEL Chloride Lvl 100 95 - 109 01/29/2017 [facility] CHEM PANEL Calcium Lvl 7.9 8.5 - 10.5 01/29/2017 [facility] CHEM PANEL CO2 35 24 - 32 01/29/2017 [facility] CHEM PANEL AGAP 10.3 10.0 - 20.0 01/29/[address] [facility] MCHC 33.6 32.0 - 36.0 01/29/[address] [facility] MCH 29.2 27.0 - 31.0 01/29/[address] [facility] Platelet 169 133 - 450 01/29/[address] [facility] MPV 8.0 7.4 - 10.4 01/29/[address] [facility] RDW 13.6 11.5 - 14.5 01/29/[address] [facility] MCV 87.0 80.0 - 98.0 01/29/[address] [facility] Hct 25.5 36.0 - 48.0 01/29/[address] [facility] RBC 2.93 4.20 - 5.40 01/29/[address] [facility] Hgb 8.5 12.0 - 16.0 01/29/[address] [facility] WBC 7.0 3.7 - 10.4 01/29/[address] [facility] Lymphocytes # 1.3 1.0 - 5.5 01/29/[address] [facility] Segs-Bands # 4.7 1.5 - 8.1 01/29/[address] [facility] Segs 67.2 45.0 - 75.0 01/29/[address] [facility] Lymphocytes 18.0 20.0 - 40.0 01/29/[address] [facility] Monocytes 7.5 2.0 - 12.0 01/29/[address] [facility] Eosinophils # 0.5 0.0 - 0.5 01/29/[address] [facility] Monocytes # 0.5 0.0 - 0.8 01/29/[address] [facility] Basophils 0.3 0.0 - 1.0 01/29/[address] [facility] Eosinophils 7.0 0.0 - 4.0 01/29/2017 [facility] CHEM PANEL eGFR 31 01/28/2017 Result [...] should be multiplied by the estimated BMI. [facility] CHEM PANEL Chloride Lvl 104 95 - 109 01/28/2017 [facility] CHEM PANEL Potassium Lvl 4.0 3.5 - 5.1 01/28/2017 [facility] CHEM PANEL Calcium Lvl 8.2 8.5 - 10.5 01/28/2017 [facility] CHEM PANEL CO2 32 24 - 32 01/28/2017 [facility] CHEM PANEL Sodium Lvl 141 135 - 145 01/28/2017 [facility] CHEM PANEL Glucose Lvl 71 70 - 99 01/28/2017 [facility] CHEM PANEL Creatinine Lvl 1.70 0.50 - 1.40 01/28/2017 [facility] CHEM PANEL BUN 31 7 - 22 01/28/2017 [facility] CHEM PANEL AGAP 9.0 10.0 - 20.0 01/28/[address] [facility] Platelet 171 133 - 450 01/28/[address] [facility] RDW 14.1 11.5 - 14.5 01/28/[address] [facility] MCHC 34.1 32.0 - 36.0 01/28/[address] [facility] MCH 29.7 27.0 - 31.0 01/28/[address] [facility] MCV 87.2 80.0 - 98.0 01/28/[address] [facility] Hct 25.0 36.0 - 48.0 01/28/[address] [facility] Hgb 8.5 12.0 - 16.0 01/28/[address] [facility] RBC 2.86 4.20 - 5.40 01/28/[address] [facility] WBC 6.2 3.7 - 10.4 01/28/[address] [facility] MPV 7.8 7.4 - 10.4 01/28/[address] [facility] Lymphocytes # 1.7 1.0 - 5.5 01/28/[address] [facility] Eosinophils # 0.5 0.0 - 0.5 01/28/2017 [facility] HEMATOLOGY Monocytes # 0.5 0.0 - 0.8 01/28/2017 [facility] HEMATOLOGY Basophils 0.3 0.0 - 1.0 01/28/2017 [facility] HEMATOLOGY Eosinophils 7.9 0.0 - 4.0 01/28/2017 [facility] HEMATOLOGY Monocytes 8.1 2.0 - 12.0 01/28/2017 [facility] HEMATOLOGY Lymphocytes 26.9 20.0 - 40.0 01/28/2017 [facility] HEMATOLOGY Segs-Bands # 3.5 1.5 - 8.1 01/28/2017 [facility] HEMATOLOGY Segs 56.8 45.0 - 75.0 01/28/2017 [facility] URINE CHEM U Prot/Creat 2.6 01/25/2017 [facility] URINE CHEM U Eos None Seen (01/25/17 12:26 PM) None Seen 01/25/2017 [facility] URINE CHEM U Protein 178.0 01/25/2017 [facility] URINE CHEM U Creatinine 68.00 01/25/2017 [facility] URINE CHEM U Sodium 57 01/25/2017 [facility] URINE AND STOOL UA Bili Negative *NA* (01/24/17 11:19 AM) Negative 01/24/2017 [facility] URINE AND STOOL UA Glucose 500 mg/dL Negative mg/dL 01/24/2017 [facility] URINE AND STOOL UA Ketones Negative mg/dL Negative mg/dL 01/24/[address] [facility] [address] URINE AND STOOL UA Sq [...] Urobilinogen <=1.0 mg/dL 0.1 - 1.0 01/24/[address] [facility] [address] URINE AND STOOL UA Hyal Cast 18 0 - 2 01/24/2017 [facility] URINE AND STOOL UA RBC 3 0 - 2 01/24/2017 [facility] URINE AND STOOL UA Turbidity Slight *ABN* (01/24/17 11:19 AM) Clear 01/24/2017 [facility] URINE AND STOOL UA Color Yellow *NA* (01/24/17 11:19 AM) Yellow 01/24/2017 [facility] URINE AND STOOL UA Protein >=300 mg/dL Negative mg/dL 01/24/2017 [facility] URINE AND STOOL UA Spec Grav 1.014 <=1.030 01/24/2017 [facility] URINE AND STOOL UA pH 5.0 5.0 - 8.0 01/24/2017 [facility] CARDIAC ENZYMES CK MB Index 1.8 0.0 - 2.5 01/24/2017 [facility] CARDIAC ENZYMES BNP 501 <=100 pg/mL 01/24/2017 [facility] CARDIAC ENZYMES CK MB 3.5 0.5 - 3.6 01/24/2017 [facility] CARDIAC ENZYMES Total CK 194 12 - 191 01/24/2017 [facility] CARDIAC ENZYMES Troponin-I 0.15 0.00 - 0.40 01/24/2017 [facility] CHEM PANEL Ketone Quantitative 0.44 <=0.27 mmol/L 01/24/2017 [facility] CHEM PANEL Phosphorus 4.8 2.5 - 4.5 01/24/2017 [facility] CHEM PANEL Magnesium Lvl 2.5 1.8 - 2.4 01/24/2017 [facility] CHEM PANEL Lipase Lvl 231 73 - 393 01/24/2017 [facility] CHEM PANEL Bili Total 0.3 0.2 - 1.3 01/24/2017 [facility] CHEM PANEL Globulin 4.8 2.7 - 4.2 01/24/2017 [facility] CHEM PANEL Alk Phos 124 39 - 136 01/24/2017 [facility] CHEM PANEL AST 38 0 - 37 01/24/2017 [facility] CHEM PANEL ALT 22 0 - 65 01/24/2017 [facility] CHEM PANEL A/G Ratio 0.5 0.7 - 1.6 01/24/2017 [facility] CHEM PANEL Albumin Lvl 2.4 3.5 - 5.0 01/24/2017 [facility] CHEM PANEL Total Protein 7.2 6.4 - 8.4 01/24/2017 [facility] CHEM PANEL B/C Ratio 18 6 - 25 01/24/2017 [facility] HEMATOLOGY Basophils # 0.1 0.0 - 0.2 01/24/2017 [facility] HEMATOLOGY PTT 25.3 22.9 - 35.8 01/24/2017 [facility] HEMATOLOGY INR 1.16 0.85 - 1.17 01/24/2017 [facility] HEMATOLOGY PT 15.0 12.0 - 14.7 01/24/2017 [facility] ELECTROLYTES AGAP 10.0 10.0 - 20.0 01/18/2017 [facility] ELECTROLYTES eGFR 39 01/18/2017 Result Comment: [...] should be multiplied by the estimated BMI. [facility] ELECTROLYTES Calcium Lvl 7.6 8.5 - 10.5 01/18/2017 [facility] ELECTROLYTES Creatinine Lvl 1.4 0 0.50 - 1.40 01/18/2017 [facility] ELECTROLYTES BUN 16 7 - 22 01/18/2017 [facility] ELECTROLYTES CO2 25 24 - 32 01/18/2017 [facility] ELECTROLYTES Chloride Lvl 110 95 - 109 01/18/2017 [facility] ELECTROLYTES Potassium Lvl 4.0 3.5 - 5.1 01/18/2017 [facility] ELECTROLYTES Sodium Lvl 141 135 - 145 01/18/2017 [facility] ELECTROLYTES Glucose Lvl 120 70 - 99 01/18/[address] [facility] MCHC 34.4 32.0 - 36.0 01/18/2017 [facility] HEMATOLOGY RBC 2.71 4.20 - 5.40 01/18/[address] [facility] WBC 5.1 3.7 - 10.4 01/18/[address] [facility] Hgb 8.1 12.0 - 16.0 01/18/2017 [facility] HEMATOLOGY MCV 86.3 80.0 - 98.0 01/18/[address] [facility] MCH 29.7 27.0 - 31.0 01/18/[address] [facility] Hct 23.4 36.0 - 48.0 01/18/[address] [facility] RDW 13.5 11.5 - 14.5 01/18/[address] [facility] MPV 8.1 7.4 - 10.4 01/18/[address] [facility] Platelet 153 133 - 450 01/18/[address] [facility] Eosinophils 6.0 0.0 - 4.0 01/18/2017 [facility] HEMATOLOGY Basophils 0.4 0.0 - 1.0 01/18/[address] [facility] Monocytes 10.1 2.0 - 12.0 01/18/[address] [facility] Eosinophils # 0.3 0.0 - 0.5 01/18/[address] [facility] Monocytes # 0.5 0.0 - 0.8 01/18/[address] [facility] Lymphocytes # 1.6 1.0 - 5.5 01/18/[address] [facility] Segs-Bands # 2.7 1.5 - 8.1 01/18/[address] [facility] Lymphocytes 30.9 20.0 - 40.0 01/18/[address] [facility] Segs 52.6 45.0 - 75.0 01/18/2017 [facility] CHEM PANEL Ammonia 18.0 <=45.0 uMol/L 2017 [facility] ANEMIA STUDY Vitamin B12 Lvl 528 254 - 1320 2017 [facility] CHEM PANEL eGFR 39 2017 Result [...] should be multiplied by the estimated BMI. [facility] CHEM PANEL Sodium Lvl 143 135 - 145 2017 [facility] CHEM PANEL Glucose Lvl 131 70 - 99 2017 [facility] CHEM PANEL BUN 14 7 - 22 2017 [facility] CHEM PANEL Calcium Lvl 7.4 8.5 - 10.5 2017 [facility] CHEM PANEL Potassium Lvl 4.0 3.5 - 5.1 2017 [facility] CHEM PANEL Chloride Lvl 110 95 - 109 2017 [facility] CHEM PANEL Creatinine Lvl 1.40 0.50 - 1.40 2017 [facility] CHEM PANEL CO2 25 24 - 32 2017 [facility] CHEM PANEL AGAP 12.0 10.0 - 20.0 2017 [facility] HEMATOLOGY MPV 7.8 7.4 - 10.4 2017 [facility] HEMATOLOGY RDW 13.4 11.5 - 14.5 2017 [facility] HEMATOLOGY Platelet 149 133 - 450 2017 [facility] HEMATOLOGY MCHC 34.5 32.0 - 36.0 2017 [facility] HEMATOLOGY MCH 29.7 27.0 - 31.0 2017 [facility] HEMATOLOGY MCV 86.0 80.0 - 98.0 2017 [facility] HEMATOLOGY Hct 24.4 36.0 - 48.0 2017 [facility] HEMATOLOGY Hgb 8.4 12.0 - 16.0 2017 [facility] HEMATOLOGY RBC 2.83 4.20 - 5.40 2017 [facility] HEMATOLOGY WBC 7.5 3.7 - 10.4 2017 [facility] HEMATOLOGY Monocytes 9.1 2.0 - 12.0 2017 [facility] HEMATOLOGY Lymphocytes # 1.6 1.0 - 5.5 2017 [facility] HEMATOLOGY Segs-Bands # 4.9 1.5 - 8.1 2017 [facility] HEMATOLOGY Basophils 0.3 0.0 - 1.0 2017 [facility] HEMATOLOGY Eosinophils 3.6 0.0 - 4.0 2017 [facility] HEMATOLOGY Lymphocytes 21.5 20.0 - 40.0 2017 [facility] HEMATOLOGY Segs 65.5 45.0 - 75.0 2017 [facility] HEMATOLOGY Eosinophils # 0.3 0.0 - 0.5 2017 [facility] HEMATOLOGY Monocytes # 0.7 0.0 - 0.8 2017 [facility] SPECIAL CHEMISTRY Hgb A1C 11.0 <=5.6 % 01/16/2017 [facility] CARDIAC ENZYMES Troponin-I <0.02 0.00 - 0.40 01/16/2017 [facility] CHEM PANEL eGFR 39 01/16/2017 Result [...] should be multiplied by the estimated BMI. [facility] CHEM PANEL Albumin Lvl 1.8 3.5 - 5.0 01/16/2017 [facility] CHEM PANEL AST 20 0 - 37 01/16/2017 [facility] CHEM PANEL ALT 7 0 - 65 01/16/2017 [facility] CHEM PANEL Total Protein 6.0 6.4 - 8.4 01/16/2017 [facility] CHEM PANEL Calcium Lvl 7.3 8.5 - 10.5 01/16/2017 [facility] CHEM PANEL Sodium Lvl 138 135 - 145 01/16/2017 [facility] CHEM PANEL Potassium Lvl 3.6 3.5 - 5.1 01/16/2017 [facility] CHEM PANEL Creatinine Lvl 1.40 0.50 - 1.40 01/16/2017 [facility] CHEM PANEL CO2 27 24 - 32 01/16/2017 [facility] CHEM PANEL Chloride Lvl 107 95 - 109 01/16/2017 [facility] CHEM PANEL Alk Phos 97 39 - 136 01/16/2017 [facility] CHEM PANEL Bili Total 0.3 0.2 - 1.3 01/16/2017 [facility] CHEM PANEL BUN 15 7 - 22 01/16/2017 [facility] CHEM PANEL Glucose Lvl 283 70 - 99 01/16/2017 [facility] CHEM PANEL B/C Ratio 11 6 - 25 01/16/2017 [facility] CHEM PANEL Globulin 4.2 2.7 - 4.2 01/16/2017 [facility] CHEM PANEL A/G Ratio 0.4 0.7 - 1.6 01/16/2017 [facility] CHEM PANEL AGAP 7.6 10.0 - 20.0 01/16/2017 [facility] CHEM PANEL Magnesium Lvl 1.9 1.8 - 2.4 01/16/2017 [facility] CHEM PANEL Phosphorus 3.0 2.5 - 4.5 01/16/2017 [facility] HEMATOLOGY Lymphocytes # 2.2 1.0 - 5.5 01/16/2017 [facility] HEMATOLOGY Basophils 0.3 0.0 - 1.0 01/16/2017 [facility] HEMATOLOGY Segs-Bands # 6.0 1.5 - 8.1 01/16/2017 [facility] HEMATOLOGY Monocytes 8.1 2.0 - 12.0 01/16/2017 [facility] HEMATOLOGY Eosinophils 3.1 0.0 - 4.0 01/16/2017 [facility] HEMATOLOGY Eosinophils # 0.3 0.0 - 0.5 01/16/2017 [facility] HEMATOLOGY Monocytes # 0.8 0.0 - 0.8 01/16/2017 [facility] HEMATOLOGY Lymphocytes 24.0 20.0 - 40.0 01/16/2017 [facility] HEMATOLOGY Segs 64.5 45.0 - 75.0 01/16/2017 [facility] HEMATOLOGY Hgb 9.0 12.0 - 16.0 01/16/2017 [facility] HEMATOLOGY RBC 3.01 4.20 - 5.40 01/16/2017 [facility] HEMATOLOGY MCV 86.4 80.0 - 98.0 01/16/2017 [facility] HEMATOLOGY MCH 29.7 27.0 - 31.0 01/16/2017 [facility] HEMATOLOGY Hct 26.1 36.0 - 48.0 01/16/2017 [facility] HEMATOLOGY RDW 13.5 11.5 - 14.5 01/16/2017 [facility] HEMATOLOGY MCHC 34.4 32.0 - 36.0 01/16/2017 [facility] HEMATOLOGY MPV 8.2 7.4 - 10.4 01/16/2017 [facility] HEMATOLOGY Platelet 125 133 - 450 01/16/2017 [facility] HEMATOLOGY WBC 9.3 3.7 - 10.4 01/16/2017 [facility] CARDIAC ENZYMES Troponin-I <0.02 0.00 - 0.40 01/16/2017 [facility] CHEM PANEL Lactic Acid Lvl 0.5 0.5 - 2.2 01/16/2017 [facility] URINE AND STOOL UA Urobilinogen <=1.0 mg/dL 0.1 - 1.0 01/15/2017 [facility] URINE AND STOOL UA Glucose 500 mg/dL Negative mg/dL 01/15/2017 [facility] URINE AND STOOL UA Protein >=300 mg/dL Negative mg/dL 01/15/[address] [facility] [address] URINE AND STOOL UA Ketones Negative mg/dL Negative mg/dL 01/15/2017 [facility] URINE AND STOOL UA pH 6.0 5.0 - 8.0 01/15/2017 [facility] URINE AND STOOL UA Spec Grav 1.015 <=1.030 01/15/2017 [facility] URINE AND STOOL UA Turbidity Slight *ABN* (01/15/17 6:19 PM) Clear 01/15/2017 [facility] URINE AND STOOL UA Color Yellow *NA* (01/15/17 6:19 PM) Yellow 01/15/2017 [facility] URINE AND STOOL UA Blood Small *ABN* (01/15/17 6:19 PM) Negative 01/15/2017 [facility] URINE AND STOOL UA Bili Negative *NA* (01/15/17 6:19 PM) Negative 01/15/2017 [facility] URINE AND STOOL UA Nitrite Negative (01/15/17 6:19 PM) Negative 01/15/2017 [facility] URINE AND STOOL UA WBC 8 0 - 5 01/15/2017 [facility] URINE AND STOOL UA Sq Epi Many /LPF Few /LPF 01/15/2017 [facility] URINE AND STOOL UA Leuk Est Negative (01/15/17 6:19 PM) Negative 01/15/2017 [facility] URINE AND STOOL UA Bacteria Occasional /HPF None Seen /HPF 01/15/2017 [facility] URINE AND STOOL UA RBC 8 0 - 2 01/15/2017 [facility] URINE AND STOOL UA Hyal Cast 3 0 - 2 01/15/2017 [facility] RAPID Grp A Strep Scr Negative (01/15/17 5:49 PM) Negative 01/15/2017 [facility] VIRAL - SEROLOGY Influ B Negative (01/15/17 5:49 PM) Negative 01/15/2017 [facility] VIRAL - SEROLOGY Influ A Negative (01/15/17 5:49 PM) Negative 01/15/2017 [facility] CARDIAC ENZYMES CK MB Index 1.4 0.0 - 2.5 01/15/2017 [facility] CARDIAC ENZYMES CK MB 1.1 0.5 - 3.6 01/15/2017 [facility] CARDIAC ENZYMES Troponin-I <0.02 0.00 - 0.40 01/15/2017 [facility] CARDIAC ENZYMES Total CK 80 12 - 191 01/15/2017 [facility] CHEM PANEL Lactic Acid Lvl 1.0 0.5 - 2.2 01/15/2017 [facility] CHEM PANEL Alk Phos 122 39 - 136 01/15/2017 [facility] CHEM PANEL AST 26 0 - 37 01/15/2017 [facility] CHEM PANEL Bili Total 0.5 0.2 - 1.3 01/15/2017 [facility] CHEM PANEL ALT 11 0 - 65 01/15/2017 [facility] CHEM PANEL Albumin Lvl 2.2 3.5 - 5.0 01/15/2017 [facility] CHEM PANEL Total Protein 6.6 6.4 - 8.4 01/15/2017 [facility] CHEM PANEL B/C Ratio 11 6 - 25 01/15/2017 [facility] CHEM PANEL A/G Ratio 0.5 0.7 - 1.6 01/15/2017 [facility] CHEM PANEL Globulin 4.4 2.7 - 4.2 01/15/2017 [facility] HEMATOLOGY PTT 25.1 22.9 - 35.8 01/15/2017 [facility] HEMATOLOGY PT 13.2 12.0 - 14.7 01/15/2017 [facility] HEMATOLOGY INR 0.98 0.85 - 1.17 01/15/2017 [facility] CHEM PANEL Procalcitonin Lvl 0.23 0.00 - 0.10 01/15/2017 [facility] CHEM PANEL B/C Ratio 12 6 - 25 02/20/2016 [facility] CHEM PANEL AGAP 10.5 10.0 - 20.0 02/20/2016 [facility] CHEM PANEL A/G Ratio 0.6 0.7 - 1.6 02/20/2016 [facility] CHEM PANEL Globulin 3.7 2.0 - 4.0 02/20/2016 [facility] CHEM PANEL eGFR 49 02/20/2016 Result Comment: [...] should be multiplied by the estimated BMI. [facility] CHEM PANEL Bili Total 0.4 0.2 - 1.3 02/20/2016 [facility] CHEM PANEL Alk Phos 85 39 - 136 02/20/2016 [facility] CHEM PANEL AST 30 0 - 37 02/20/2016 [facility] CHEM PANEL Calcium Lvl 7.5 8.5 - 10.5 02/20/2016 [facility] CHEM PANEL CO2 23 24 - 32 02/20/2016 [facility] CHEM PANEL Chloride Lvl 113 95 - 109 02/20/2016 [facility] CHEM PANEL Potassium Lvl 4.5 3.5 - 5.1 02/20/2016 [facility] CHEM PANEL Sodium Lvl 142 135 - 145 02/20/2016 [facility] CHEM PANEL ALT 14 0 - 65 02/20/2016 [facility] CHEM PANEL Albumin Lvl 2.2 3.5 - 5.0 02/20/2016 [facility] CHEM PANEL Total Protein 5.9 6.4 - 8.4 02/20/2016 [facility] CHEM PANEL Glucose Lvl 183 70 - 99 02/20/2016 [facility] CHEM PANEL Creatinine Lvl 1.17 0.50 - 1.40 02/20/2016 [facility] CHEM PANEL BUN 14 7 - 22 02/20/2016 [facility] HEMATOLOGY Segs 49.5 45.0 - 75.0 02/20/2016 [facility] HEMATOLOGY Segs-Bands # 2.8 1.5 - 8.1 02/20/2016 [facility] HEMATOLOGY Basophils 0.3 0.0 - 1.0 02/20/2016 [facility] HEMATOLOGY Eosinophils 6.6 0.0 - 4.0 02/20/2016 [facility] HEMATOLOGY Monocytes 8.3 2.0 - 12.0 02/20/2016 [facility] HEMATOLOGY Lymphocytes 35.3 20.0 - 40.0 02/20/2016 [facility] HEMATOLOGY Eosinophils # 0.4 0.0 - 0.5 02/20/2016 [facility] HEMATOLOGY Monocytes # 0.5 0.0 - 0.8 02/20/2016 [facility] HEMATOLOGY Lymphocytes # 2.0 1.0 - 5.5 02/20/2016 [facility] HEMATOLOGY MCV 87.6 80.0 - 98.0 02/20/2016 [facility] HEMATOLOGY Hct 27.4 36.0 - 48.0 02/20/2016 [facility] HEMATOLOGY Hgb 9.3 12.0 - 16.0 02/20/2016 [facility] HEMATOLOGY WBC 5.6 3.7 - 10.4 02/20/2016 [facility] HEMATOLOGY MPV 8.5 7.4 - 10.4 02/20/2016 [facility] HEMATOLOGY Platelet 128 133 - 450 02/20/2016 [facility] HEMATOLOGY RBC 3.13 4.20 - 5.40 02/20/2016 [facility] HEMATOLOGY MCH 29.8 27.0 - 31.0 02/20/2016 [facility] HEMATOLOGY RDW 13.1 11.5 - 14.5 02/20/2016 [facility] HEMATOLOGY MCHC 34.0 32.0 - 36.0 02/20/2016 [facility] CHEM PANEL A/G Ratio 0.7 0.7 - 1.6 02/19/2016 [facility] CHEM PANEL Globulin 3.5 2.0 - 4.0 02/19/2016 [facility] CHEM PANEL AGAP 10.2 10.0 - 20.0 02/19/2016 [facility] CHEM PANEL B/C Ratio 13 6 - 25 02/19/2016 [facility] CHEM PANEL eGFR 60 02/19/2016 Result Comment: [...] should be multiplied by the estimated BMI. [facility] CHEM PANEL AST 23 0 - 37 02/19/2016 [facility] CHEM PANEL Albumin Lvl 2.3 3.5 - 5.0 02/19/2016 [facility] CHEM PANEL ALT 17 0 - 65 02/19/2016 [facility] CHEM PANEL Calcium Lvl 7.6 8.5 - 10.5 02/19/2016 [facility] CHEM PANEL Total Protein 5.8 6.4 - 8.4 02/19/2016 [facility] CHEM PANEL Chloride Lvl 109 95 - 109 02/19/2016 [facility] CHEM PANEL CO2 25 24 - 32 02/19/2016 [facility] CHEM PANEL Sodium Lvl 140 135 - 145 02/19/2016 [facility] CHEM PANEL Potassium Lvl 4.2 3.5 - 5.1 02/19/2016 [facility] CHEM PANEL Creatinine Lvl 0.99 0.50 - 1.40 02/19/2016 [facility] CHEM PANEL Alk Phos 71 39 - 136 02/19/2016 [facility] CHEM PANEL Bili Total 0.5 0.2 - 1.3 02/19/2016 [facility] CHEM PANEL Glucose Lvl 171 70 - 99 02/19/2016 [facility] CHEM PANEL BUN 13 7 - 22 02/19/2016 [facility] HEMATOLOGY Lymphocytes # 2.1 1.0 - 5.5 02/19/2016 [facility] HEMATOLOGY Segs-Bands # 2.8 1.5 - 8.1 02/19/2016 [facility] HEMATOLOGY Monocytes # 0.5 0.0 - 0.8 02/19/2016 [facility] HEMATOLOGY Basophils 0.4 0.0 - 1.0 02/19/2016 [facility] HEMATOLOGY Lymphocytes 36.6 20.0 - 40.0 02/19/2016 [facility] HEMATOLOGY Segs 47.9 45.0 - 75.0 02/19/2016 [facility] HEMATOLOGY Monocytes 7.9 2.0 - 12.0 02/19/2016 [facility] HEMATOLOGY Eosinophils 7.2 0.0 - 4.0 02/19/2016 [facility] HEMATOLOGY Eosinophils # 0.4 0.0 - 0.5 02/19/2016 [facility] HEMATOLOGY MCH 29.5 27.0 - 31.0 02/19/2016 [facility] HEMATOLOGY RDW 13.1 11.5 - 14.5 02/19/2016 [facility] HEMATOLOGY MCHC 33.8 32.0 - 36.0 02/19/2016 [facility] HEMATOLOGY Platelet 115 133 - 450 02/19/2016 [facility] HEMATOLOGY MCV 87.2 80.0 - 98.0 02/19/2016 [facility] HEMATOLOGY Hct 28.5 36.0 - 48.0 02/19/2016 [facility] HEMATOLOGY Hgb 9.6 12.0 - 16.0 02/19/2016 [facility] HEMATOLOGY RBC 3.26 4.20 - 5.40 02/19/2016 [facility] HEMATOLOGY MPV 8.0 7.4 - 10.4 02/19/2016 [facility] HEMATOLOGY WBC 5.8 3.7 - 10.4 02/19/2016 [facility] CHEM PANEL Lipase Lvl 253 73 - 393 02/18/2016 [facility] CHEM PANEL eGFR 55 02/18/2016 Result Comment: [...] should be multiplied by the estimated BMI. [facility] CHEM PANEL AGAP 11.4 10.0 - 20.0 02/18/2016 [facility] CHEM PANEL Calcium Lvl 7.8 8.5 - 10.5 02/18/2016 [facility] CHEM PANEL Creatinine Lvl 1.07 0.50 - 1.40 02/18/2016 [facility] CHEM PANEL Potassium Lvl 4.4 3.5 - 5.1 02/18/2016 [facility] CHEM PANEL Sodium Lvl 140 135 - 145 02/18/2016 [facility] CHEM PANEL CO2 27 24 - 32 02/18/2016 [facility] CHEM PANEL Chloride Lvl 106 95 - 109 02/18/2016 [facility] CHEM PANEL BUN 17 7 - 22 02/18/2016 [facility] CHEM PANEL Glucose Lvl 155 70 - 99 02/18/2016 [facility] CARDIAC ENZYMES Troponin-T <0.010 0.000 - 0.100 02/18/2016 [facility] CARDIAC ENZYMES Troponin-I <0.02 0.00 - 0.40 02/18/2016 [facility] CARDIAC ENZYMES Total CK 42 12 - 191 02/18/2016 [facility] CHEM PANEL ALT 18 0 - 65 02/18/2016 [facility] CHEM PANEL Alk Phos 95 39 - 136 02/18/2016 [facility] CHEM PANEL AST 23 0 - 37 02/18/2016 [facility] CHEM PANEL Globulin 4.3 2.0 - 4.0 02/18/2016 [facility] CHEM PANEL Albumin Lvl 2.9 3.5 - 5.0 02/18/2016 [facility] CHEM PANEL Bili Total 0.4 0.2 - 1.3 02/18/2016 [facility] CHEM PANEL A/G Ratio 0.7 0.7 - 1.6 02/18/2016 [facility] CHEM PANEL Total Protein 7.2 6.4 - 8.4 02/18/2016 [facility] CHEM PANEL B/C Ratio 18 6 - 25 02/18/2016 [facility] HEMATOLOGY Eosinophils # 0.3 0.0 - 0.5 02/18/2016 [facility] HEMATOLOGY Monocytes # 0.5 0.0 - 0.8 02/18/2016 [facility] HEMATOLOGY Eosinophils 4.0 0.0 - 4.0 02/18/2016 [facility] HEMATOLOGY Segs 64.9 45.0 - 75.0 02/18/2016 [facility] HEMATOLOGY Lymphocytes 25.2 20.0 - 40.0 02/18/2016 [facility] HEMATOLOGY Basophils 0.2 0.0 - 1.0 02/18/2016 [facility] HEMATOLOGY Monocytes 5.7 2.0 - 12.0 02/18/2016 [facility] HEMATOLOGY Lymphocytes # 2.2 1.0 - 5.5 02/18/2016 [facility] HEMATOLOGY Segs-Bands # 5.6 1.5 - 8.1 02/18/2016 [facility] HEMATOLOGY WBC 8.7 3.7 - 10.4 02/18/2016 [facility] HEMATOLOGY MCV 86.3 80.0 - 98.0 02/18/2016 [facility] HEMATOLOGY RBC 3.71 4.20 - 5.40 02/18/2016 [facility] HEMATOLOGY Hgb 11.2 12.0 - 16.0 02/18/2016 [facility] HEMATOLOGY MCH 30.2 27.0 - 31.0 02/18/2016 [facility] HEMATOLOGY Hct 32.0 36.0 - 48.0 02/18/2016 [facility] HEMATOLOGY RDW 13.1 11.5 - 14.5 02/18/2016 [facility] HEMATOLOGY Platelet 144 133 - 450 02/18/2016 [facility] HEMATOLOGY MCHC 35.0 32.0 - 36.0 02/18/2016 [facility] HEMATOLOGY MPV 8.2 7.4 - 10.4 02/18/2016 [facility] SPECIAL CHEMISTRY Hgb A1C 13.2 <=5.6 % 02/18/2016 [facility] CARDIAC ENZYMES Troponin-T <0.010 0.000 - 0.100 02/18/2016 [facility] CARDIAC ENZYMES Troponin-I <0.02 0.00 - 0.40 02/18/2016 [facility] CARDIAC ENZYMES Total CK 69 12 - 191 02/18/2016 [facility] LIPIDS VLDL 55 02/18/2016 [facility] LIPIDS Trig 274 <=149 mg/dL 02/18/2016 [facility] LIPIDS Chol 180 <=199 mg/dL 02/18/2016 [facility] LIPIDS HDL 38 >=61 mg/dL 02/18/2016 [facility] LIPIDS CHD Risk 4.74 3.90 - 5.80 02/18/2016 [facility] LIPIDS LDL (Calculated) 87 <=99 mg/dL 02/18/2016 [facility] URINE AND STOOL Micro? Performed (02/17/16 4:37 PM) 02/17/2016 [facility] URINE AND STOOL UA Leuk Est Negative (02/17/16 4:37 PM) Negative 02/17/2016 [facility] URINE AND STOOL UA Nitrite Negative (02/17/16 4:37 PM) Negative 02/17/2016 [facility] URINE AND STOOL UA Blood Trace *ABN* (02/17/16 4:37 PM) Negative 02/17/2016 [facility] URINE AND STOOL UA Bili Negative *NA* (02/17/16 4:37 PM) Negative 02/17/2016 [facility] URINE AND STOOL UA Urobilinogen 0.2 0.1 - 1.0 02/17/2016 [facility] URINE AND STOOL UA Protein Trace *ABN* (02/17/16 4:37 PM) Negative 02/17/2016 [facility] URINE AND STOOL UA Glucose >=1000 mg/dL Negative mg/dL 02/17/2016 [facility] URINE AND STOOL UA Ketones Negative *NA* (02/17/16 4:37 PM) Negative 02/17/2016 [facility] URINE AND STOOL UA Color Yellow *NA* (02/17/16 4:37 PM) Yellow 02/17/2016 [facility] URINE AND STOOL UA pH 6.0 5.0 - 8.0 02/17/2016 [facility] URINE AND STOOL UA Turbidity Slight Cloudy (02/17/16 4:37 PM) Clear 02/17/2016 [facility] URINE AND STOOL UA Spec Grav 1.019 <=1.030 02/17/2016 [facility] URINE AND STOOL UA Bacteria Many /HPF None Seen /HPF 02/17/2016 [facility] URINE AND STOOL UA RBC None Seen (02/17/16 4:37 PM) 0 - 2 02/17/2016 [facility] URINE AND STOOL UA Sq Epi Occasional /LPF Few /LPF 02/17/2016 [facility] URINE AND STOOL UA WBC None Seen (02/17/16 4:37 PM) None Seen 02/17/2016 [facility] IMMUNOLOGY Schneider-Hep C Ab Posit zaria *NA* (02/17/16 2:19 PM) Negative 02/17/2016 [facility] IMMUNOLOGY CDC HIV 4th GEN Negat zaria (02/17/16 2:19 PM) Negative 02/17/2016 [facility] IMMUNOLOGY Schneider-Hep C Ab Posit zaria *NA* (02/17/16 2:19 PM) Negative 02/17/2016 [facility] CARDIAC ENZYMES CK-MB INDEX see note 0.0 - 2.5 02/17/2016 Result Comment: result not reported due to low MMB value. TG [facility] CARDIAC ENZYMES Troponin-I <0.02 0.00 - 0.40 02/17/2016 [facility] CARDIAC ENZYMES CK MB <0.5 ng/mL 0.5 - 3.6 02/17/2016 [facility] CARDIAC ENZYMES Total CK 43 12 - 191 02/17/2016 [facility] CHEM PANEL Bili Direct 0.1 0.0 - 0.3 02/17/2016 [facility] CHEM PANEL Bili Indirect 0.3 0.0 - 1.0 02/17/2016 [facility] CHEM PANEL Magnesium Lvl 2.2 1.8 - 2.4 02/17/2016 [facility] CHEM PANEL Phosphorus 3.9 2.5 - 4.5 02/17/2016 [facility] CHEM PANEL Lipase Lvl 1046 73 - 393 02/17/2016 [facility] URINE AND STOOL UA RBC 0-2 /HPF 0 - 2 02/17/2016 [facility] URINE AND STOOL UA Bacteria Many /HPF None Seen /HPF 02/17/2016 [facility] URINE AND STOOL UA WBC 11-20 /HPF None Seen /HPF 02/17/2016 [facility] URINE AND STOOL Micro? Performed (02/17/16 1:18 PM) 02/17/2016 [facility] URINE AND STOOL UA Sq Epi Moderate /LPF Few /LPF 02/17/2016 [facility] URINE AND STOOL UA Blood Trace *ABN* (02/17/16 1:18 PM) Negative 02/17/2016 [facility] URINE AND STOOL UA Nitrite Negative (02/17/16 1:18 PM) Negative 02/17/2016 [facility] URINE AND STOOL UA Leuk Est Negative (02/17/16 1:18 PM) Negative 02/17/2016 [facility] URINE AND STOOL UA Glucose >=1000 mg/dL Negative mg/dL 02/17/2016 [facility] URINE AND STOOL UA Bili Negative *NA* (02/17/16 1:18 PM) Negative 02/17/2016 [facility] URINE AND STOOL UA Ketones Negative *NA* (02/17/16 1:18 PM) Negative 02/17/2016 [facility] URINE AND STOOL UA Urobilinogen 0.2 0.1 - 1.0 02/17/2016 [facility] URINE AND STOOL UA Protein 30 mg/dL Negative mg/dL 02/17/2016 [facility] URINE AND STOOL UA Color Yellow *NA* (02/17/16 1:18 PM) Yellow 02/17/2016 [facility] URINE AND STOOL UA Spec Grav 1.023 <=1.030 02/17/2016 [facility] URINE AND STOOL UA Turbidity Slight Cloudy (02/17/16 1:18 PM) Clear 02/17/2016 [facility] URINE AND STOOL UA pH 6.0 5.0 - 8.0 02/17/2016 [facility] URINE AND STOOL UA Urobilinogen <=1.0 mg/dL 0.1 - 1.0 07/19/2014 [facility] URINE AND STOOL UA Color Ltyellow 07/19/2014 [facility] URINE AND STOOL UA Hyal Cast 1 0 - 2 07/19/2014 [facility] URINE AND STOOL UA Bacteria Occasional /HPF None Seen /HPF 07/19/2014 [facility] URINE AND STOOL UA Blood Small *ABN* (07/18/14 8:55 PM) Negative 07/19/2014 [facility] URINE AND STOOL UA Bili Negative *NA* (07/18/14 8:55 PM) Negative 07/19/2014 [facility] URINE AND STOOL UA Ketones Negative mg/dL Negative mg/dL 07/19/2014 [facility] URINE AND STOOL UA Glucose 500 mg/dL Negative mg/dL 07/19/2014 [facility] URINE AND STOOL UA pH 5.0 5.0 - 8.0 07/19/2014 [facility] URINE AND STOOL UA Protein 30 mg/dL Negative mg/dL 07/19/2014 [facility] URINE AND STOOL UA Spec Grav 1.016 <=1.030 07/19/2014 [facility] URINE AND STOOL UA Turbidity Slight *ABN* (07/18/14 8:55 PM) Clear 07/19/2014 [facility] URINE AND STOOL UA RBC 1 0 - 2 07/19/2014 [facility] URINE AND STOOL UA WBC 3 0 - 5 07/19/2014 [facility] URINE AND STOOL UA Sq Epi Moderate /LPF Few /LPF 07/19/2014 [facility] URINE AND STOOL UA Leuk Est Negative (07/18/14 8:55 PM) Negative 07/19/2014 [facility] URINE AND STOOL UA Nitrite Negative (07/18/14 8:55 PM) Negative 07/19/2014 [facility] CARDIAC ENZYMES Troponin-I <0.02 0.00 - 0.40 07/19/2014 [facility] CHEM PANEL Magnesium Lvl 2.2 1.8 - 2.4 07/19/2014 [facility] CHEM PANEL eGFR 40 07/19/2014 <sup>1</sup>Result [...] should be multiplied by the estimated BMI. [facility] CHEM PANEL Alk Phos 174 39 - 136 07/19/2014 [facility] CHEM PANEL AST 32 0 - 37 07/19/2014 [facility] CHEM PANEL Albumin Lvl 3.5 3.5 - 5.0 07/19/2014 [facility] CHEM PANEL ALT 29 0 - 65 07/19/2014 [facility] CHEM PANEL Total Protein 8.9 6.4 - 8.4 07/19/2014 [facility] CHEM PANEL Bili Total 0.3 0.2 - 1.3 07/19/2014 [facility] CHEM PANEL Glucose Lvl 360 70 - 99 07/19/2014 <sup>2</sup>Interpretive Data: Adult ref erence range values reflect the clinical guidelines
of the [place] [employer]. [facility] CHEM PANEL BUN 19 7 - 22 07/19/2014 [facility] CHEM PANEL Potassium Lvl 4.5 3.5 - 5.1 07/19/2014 [facility] CHEM PANEL Sodium Lvl 134 135 - 145 07/19/2014 [facility] CHEM PANEL Creatinine Lvl 1.4 0.5 - 1.4 07/19/2014 [facility] CHEM PANEL Chloride Lvl 100 95 - 109 07/19/2014 [facility] CHEM PANEL CO2 33 24 - 32 07/19/2014 [facility] CHEM PANEL Calcium Lvl 9.0 8.5 - 10.5 07/19/2014 [facility] CHEM PANEL A/G Ratio 0.6 0.7 - 1.6 07/19/2014 [facility] CHEM PANEL Globulin 5.4 2.0 - 4.0 07/19/2014 [facility] CHEM PANEL AGAP 5.5 10.0 - 20.0 07/19/2014 [facility] CHEM PANEL B/C Ratio 14 6 - 25 07/19/2014 [facility] HEMATOLOGY MPV 9.0 7.4 - 10.4 07/19/2014 [facility] HEMATOLOGY Hgb 11.8 12.0 - 16.0 07/19/2014 [facility] HEMATOLOGY WBC 5.4 3.7 - 10.4 07/19/2014 [facility] HEMATOLOGY RBC 3.81 4.20 - 5.40 07/19/2014 [facility] HEMATOLOGY MCV 90.8 80.0 - 98.0 07/19/2014 [facility] HEMATOLOGY MCH 31.0 27.0 - 31.0 07/19/2014 [facility] HEMATOLOGY Hct 34.6 36.0 - 48.0 07/19/2014 [facility] HEMATOLOGY RDW 13.8 11.5 - 14.5 07/19/2014 [facility] HEMATOLOGY MCHC 34.2 32.0 - 36.0 07/19/2014 [facility] HEMATOLOGY Platelet 156 133 - 450 07/19/2014 [facility] HEMATOLOGY Monocytes # 0.4 0.0 - 0.8 07/19/2014 [facility] HEMATOLOGY Eosinophils # 0.3 0.0 - 0.5 07/19/2014 [facility] HEMATOLOGY Lymphocytes 26.6 20.0 - 40.0 07/19/2014 [facility] HEMATOLOGY Segs 60.7 45.0 - 75.0 07/19/2014 [facility] HEMATOLOGY Monocytes 7.2 2.0 - 12.0 07/19/2014 [facility] HEMATOLOGY Eosinophils 5.1 0.0 - 4.0 07/19/2014 [facility] HEMATOLOGY Basophils 0.4 0.0 - 1.0 07/19/[address] [facility] Segs-Bands # 3.3 1.5 - 8.1 07/19/[address] [facility] Lymphocytes # 1.4 1.0 - 5.5 07/19/2014 [facility] Pathology Reports No Data Provided for [...] L4-L5. Frederick Somers MD On 06/03/2020 08:20:27; [id number] 06/02/2020 [facility] Brain wo contrast CT Radiation Dose [...] stable. Frederick Somers MD On 06/02/2020 08:21:26; [id number] 06/02/2020 [facility] Brain wo contrast MRI PROCEDUR E [...] sinusitis. Aristides Magdaleno MD On 06/01/2020 02:25:42; [id number] 06/01/2020 [facility] Chest 1view DX PROCEDURE INFOR MATION: [...] Funes MD On 05/31/2020 08:31:51; [id number] 05/31/2020 [facility] Brain wo contrast CT Radiation Dose [...] sinus. Frederick Somers MD On 05/31/2020 08:24:08; [id number] 05/31/2020 [facility] Brain wo contrast MRI PROCEDUR E [...] contrast. Luis Wilde MD On 05/25/2020 07:47:15; [id number] 05/24/2020 [facility] Abdomen AP DX Some right upper quadrant surgical clips noted. Likely from cholecystectomy. Emily Martin MD On 05/24/2020 20:02:52; [id number] PROCEDURE INFORMATION: Exam: XR Abdomen, 1 View [...] concern. Emily Martin MD On 05/24/2020 20:02:04; [id number] 05/24/2020 [facility] Chest wo contrast CT Radiation Dose [...] West MD On 05/23/2020 19:07:13; [id number] 05/23/2020 [facility] Brain wo contrast CT Radiation Dose [...] visualized. Ivan Villafana MD On 05/23/2020 19:05:08; [id number] 05/23/2020 [facility] Chest 1view DX PROCEDURE INFOR MATION: [...] atrium. Alberto Barrios MD On 05/23/2020 12:29:57; [id number] 05/23/2020 [facility] Cardiac SPECT [facility] studies NM Myocardial Perfusion SPECT Imaging [...] Coronary stents and median sternotomy. 01/06/2020 [facility] CTA Radiation Dose CTDIV OL = [...] stenosis or other significant abnormality of the [place], the intracranial segments of the [...] arteries. Primitivo Giles MD On 12/30/2019 15:09:50; [id number] 12/30/2019 [facility] Chest 1view DX PROCEDURE INFOR MATION: [...] findings. Phuc Fung MD On 12/30/2019 11:45:16; [id number] 12/30/2019 [facility] Abdomen/Pelvis wo IV contrast CT Radiation [...] SL:131 Roberto Rosales MD On 12/11/2019 17:56:30; [id number] 12/11/2019 [facility] 1view DX PROCEDURE INFOR MATION: Exam: [...] consolidation. Dionisio Lam MD On 12/11/2019 16:17:30; [id number] 12/11/2019 [facility] wo contrast CT Radiation Dose CTDIVOL = [...] recommended. Jen Mercado MD On 12/05/2019 14:15:24; [id number] 12/05/2019 [facility] Chest 1view DX PROCEDURE INFOR MATION: [...] acute radiographic abnormality in the chest. Steve Shcaeffer MD On 12/05/2019 12:57:47; [id number] 12/05/2019 [facility] Abdomen wo contrast MRI PROCED URE [...] cardiomegaly. Kevin Adhikari MD On 11/24/2019 03:05:33; [id number] 11/24/2019 [facility] Abdomen/Pelvis wo IV contrast CT Radiation [...] subacute. Jair Webb MD On 11/23/2019 13:59:14; [id number] 11/22/2019 [facility] Brain wo contrast CT Radiation Dose CTDIVOL = 0 (mGy): DLP = 982.82 (mGy-cm) PROCEDURE INFORMATION: Exam: CT Head Without Contrast Exam date and time: 11/21/2019 10:34 AM Age: 69 years old Clinical indication: Altered mental status/memory loss; Patient HX: AMS since this a. M. , Dx with UTI yesterday at [facility]; Additional info: /ams TECHNIQUE: Imaging protocol: Computed [...] sinusitis. Duncan Galindo MD On 11/21/2019 11:16:35; [id number] 11/21/2019 [facility] Chest 1view DX PROCEDURE INFOR MATION: [...] atelectasis. Dom Callahan MD On 11/21/2019 10:43:49; [id number] 11/21/2019 [facility] Pelvis wo IV contrast CT Radia [...] instrumentation. Sal Correa MD On 10/27/2019 02:30:55; [id number] 10/26/2019 [facility] Spine lumbar wo contrast CT (ER) [...] above. Toby Posey DO On 10/26/2019 23:05:29; [id number] 10/26/2019 [facility] Chest 1view DX PROCEDURE INFOR MATION: [...] Mary Lou Thrasher MD On 10/26/2019 21:58:47; [id number] 10/26/2019 [facility] Pelvis AP DX PROCEDURE INFORMA TION: [...] Peres MD On 10/26/2019 21:54:18; [id number] 10/26/2019 [facility] Hand 2 views DX PROCEDURE INFO [...] Peres MD On 10/26/2019 21:57:24; [id number] 10/26/2019 [facility] Forearm 2 views DX PROCEDURE I [...] recommended. Emily Martin MD On 10/26/2019 22:03:01; [id number] 10/26/2019 [facility] Brain wo contrast CT Radiation Dose [...] fracture. Kevin Adhikari MD On 10/26/2019 22:58:48; [id number] 10/26/2019 [facility] Spine cervical wo contrast CT (ER) [...] bulges. Toby Posey DO On 10/26/2019 23:00:20; [id number] 10/26/2019 [facility] Brain wo contrast CT Radiation Dose [...] assessment. Jose Andrade MD On 09/03/2019 14:02:29; [id number] 09/03/2019 [facility] Chest 1view DX PROCEDURE INFOR MATION: [...] consolidation. Dionisio Lam MD On 09/03/2019 10:26:36; [id number] 09/03/2019 [facility] Pelvis wo IV contrast CT Patie nt Name: MARY SCHREIBER : 1950; Age: 69 years y/o Female MR: [id number] Study: Pelvis wo IV contrast CT 07/13/2019 [...] No acute osseous injury. SL: WHWANG-PC 07/13/2019 [facility] Hip 2/3 views uni w pelvis [...] hip as clinically warranted. SL: JCHILD-PC 07/13/2019 [facility] Hand 3 views DX Clinical Indic [...] inj ury of the left hand. SL: [id number] 07/13/2019 [facility] Shoulder series DX Shoulder se june [...] portion of the lungs are clear. SL: [id number] 07/13/2019 [facility] Ribs unilateral 3 views w PA [...] lar curvilinear density possibly of atelectasis SL: [id number] 07/13/2019 [facility] Spine cervical wo contrast CT (ER) [...] to patient size -Use of iterative reconstruction technlark ue CT Radiation Dose DLP 342.08 mGy-cm [...] can be performed for further evaluation. SL: [id number] 07/13/2019 [facility] Brain wo contrast CT EXAM: CT [...] to patient size -Use of iterative reconstruction technlark ue CT Radiation Dose DLP 982.82 mGy-cm [...] may be performed for complete assessment. SL: [id number] 07/13/2019 [facility] Abdomen complete US Patient Na me: MARY SCHREIBER : 1950; Age: 69 years y/o Female MR: [id number] Study: Abdomen complete US 06/26/2019 10:01 AM [...] or diffuse fatty infiltration. SL: JNGUYEN-PC 06/26/2019 [facility] Chest 1view DX Clinical Indica tion:69 [...] Subsegmental atelectasis in the lung bases. 04/03/2019 [facility] Brain wo contrast CT EXAM: CT [...] to patient size -Use of iterative reconstruction technlark ue CT Radiation Dose DLP 859.97 mGy-cm [...] may be performed for complete assessment. : [id number] 04/03/2019 [facility] Abscess localization scan NM T ECHNETIUM [...] or chest. Otherwise negative [employer] leukocyte scan. [id number] 03/03/2019 [facility] Humerus 2 views DX Left Humeru [...] is identified. IMPRESSION: No acute abnormality. SL: [id number] 02/28/2019 [facility] Hemodialysis Graft/Fistula US Hemodialysis graft ultrasound [...] within proximal g raft. SL: [id number] 02/28/2019 [facility] Brain wo contrast CT Clinical Indication: [...] base regions appear unremarkable. VENTRICLES: There is dvjc-ds-aniazjig prominence of the lateral ventricles. The 3rd [...] without mass, hemorrhage or subacute stroke. SL: [id number] 02/28/2019 [facility] Chest 1view DX EXAM: Chest 1vi [...] the right upper quadrant. SL: [id number]-PC 02/28/2019 [facility] 1view DX Clinical Indica tion: - [...] in the thoracic spine. SL: NAIN 02/12/2019 [facility] Shoulder series DX EXAM: XR SH [...] iden tified in the right shoulder. SL: [id number] 11/01/2018 [facility] Chest 1view DX EXAM: XR CHEST [...] lung c oncerning for developing infiltrate. SL: [id number] 11/01/2018 [facility] Brain wo contrast CT Clinical Indication: [...] to patient size -Use of iterative reconstruction [employer] CT Radiation Dose DLP 902.22 mGy-cm FINDINGS: [...] left frontal scalp hematoma. SL: [id number]-M 10/01/2018 [facility] Spine cervical wo contrast CT Clinical [...] to patient size -Use of iterative reconstruction technlark ue CT Radiation Dose DLP 470.79 mGy-cm [...] foraminal stenosis at C6-C7. SL: NAIN 10/01/2018 [facility] Carotid artery Doppler bilat US Patient Name: MARY SCHREIBER : 1950; Age: 68 years Female MR: [id number] Study: Carotid artery Doppler bilat US 07/29/2018 6:53 AM CDT Clinical Indication: - syncope. COMPARISON: January 16, 2017 TECHNIQUE: Wheately-scale, color Doppler and spectral Doppler of the [...] occlusion High, low, or Variable undetectable SL: [id number] 07/29/2018 [facility] Chest/Abdomen/Pelvis wo IV contrast CT Clinical [...] to patient size -Use of iterative reconstruction Prescient ue CT Radiation Dose DLP 772 mGy-cm [...] nodule, likely an adenoma. SL: JONATHAN 07/28/2018 [facility] Chest 1view DX EXAM: Chest 1vi [...] the right upper quadrant. SL: JNGUYEN-PC 07/28/2018 [facility] Spine cervical wo contrast CT Clinical [...] to patient size -Use of iterative reconstruction Prescient ue CT Radiation Dose DLP 319 mGy-cm [...] or subluxations of the cervical spine. SL: [id number]-M 07/28/2018 [facility] Brain wo contrast CT Clinical Indication: [...] to patient size -Use of iterative reconstruction technlark ue CT Radiation Dose DLP 859 mGy-cm [...] acute intracranial abnormalities. ----- LEE: JANNETH 07/28/2018 [facility] 1view DX Patient Name: Morales SCHREIBER : 1950; Age: 68 years y/o Female MR: [id number] Study: Chest 1view DX 05/02/2018 3:00 AM CDT Ordering Physician: Clinical Indication: Abnormal chest sounds - Bilateral pleural effusion; Comparison: 05/01/2018 Chest one view Stable cardiomegaly. Dialysis catheter terminates in the right atrium as before. Improving small bilateral pleural effusions, pulmonary vascular congestion since previous study. No new infiltrates. SL: [id number] 05/02/2018 [facility] 1view DX Chest 1view DX CLINICAL [...] previous study is noted. SL: RUBEN 05/01/2018 [facility] 1view DX Study: Chest 1v iew [...] IMPRESSION: No significant change. SL: CATHY- 04/29/2018 [facility] wo contrast CT Patient N damien: [...] better characterize this finding. SL: JESI 04/29/2018 [facility] Abdomen/Pelvis wo IV contrast CT EXAM: [...] likely represents an adenoma. SL: JUNAID 04/28/2018 [facility] Chest 1view DX Portable chest: The [...] no other significant change. LEE APARICIO 04/28/2018 [facility] Abdomen AP DX Study: Abdomen A [...] unremarkable. IMPRESSION: Negative abdomen. SL: CHAYA 04/28/2018 [facility] Chest 2 views DX Patient Name: MARY SCHREIBER : 1950; Age: 68 years Female MR: [id number] Study: Chest 2 views DX Order Time: 04/12/2018 10:30 AM CDT CLINICAL INDICATION: - I25.10 Atherosclerotic heart disease of [place] coronary artery without angina pectoris COMPARISON: Chest [...] congestion and small bilateral pleural effusions. SL: [id number] 04/12/2018 [facility] Ext Lower Venous Doppler Unilat US Patient Name: MARY SCHREIBER : 1950; Age: 68 years y/o Female MR: [id number] Study: Ext Lower Venous Doppler Unilat US [...] include: greater and lesser saphenous veins 03/27/2018 [facility] Chest 1view DX Clinical Indica tion:68 [...] enlargement of the cardiac madelyn houette. 03/21/2018 [facility] 1view DX Portable chest: The left jugular dialysis tempcath is in satisfactory position. There is no change in the bilateral pleural effusions and bibasilar atelectasis compared to the previous day. The upper lungs are clear. The cardiac silhouette is mildly enlarged without significant pulmonary venous congestion. There is no other significant change. [id number] 03/19/2018 [facility] 1view DX Study: Chest 1v iew [...] unremarkable. IMPRESSION: Mild congestive heart failure SL: [id number] 03/16/2018 [facility] 1view DX Patient Name: Morales SCHREIBER : 1950; Age: 68 years Female MR: [id number] Study: Chest 1view DX Order Time: 03/15/2018 [...] IMPRESSION: Stable moderate to severe edema. SL: [id number] 03/15/2018 [facility] Chest 1view DX Clinical [...] subsegmental atelectasis. 2. Pulmonary venous congestion. SL: [id number] 03/14/2018 [facility] 1view DX Portable chest: The right jugular sheath and left jugular dialysis tempcath remain in satisfactory position. There is no change in the small bilateral pleural effusions, atelectasis and pulmonary marivel ous congestion compared to the previous day. There are no other new findings. [id number] 03/13/2018 [facility] 1view DX Portable chest: The right jugular sheath and left jugular dialysis tempcath are satisfactory position. His mild pulmonary venous congestion showing no significant change compared to the previous day. There is a small right pleural effusion which is slightly increased. Mild bibasilar subsegmental atelectasis is unchanged. There are no other new findings. [id number] 03/12/2018 [facility] CVC insert non-tunnel age 5+ yrs [...] imaging of the ultrasound guidance was done. [id number] 03/11/2018 [facility] 1view DX Clinical Indica tion: Central [...] the right atrium. Otherwise stable exam. SL: [id number] 03/11/2018 [facility] 1view DX XR CHEST 1 VIEW [...] com pared to the prior day. SL: [id number] 03/11/2018 [facility] 1view DX Clinical Indica tion: - [...] atelectasis grossly similar to previous exam SL: [id number] 03/10/2018 [facility] 1view DX Clinical Indica tion: - [...] left basilar atelectasis possible left effusion SL: [id number] 03/09/2018 [facility] 1view DX CHEST FRONTAL V IEW. [...] Mild underlying edema pattern suggest ed. SL: [id number] 03/08/2018 [facility] 1view DX Chest 1view DX CLINICAL HISTORY: - s/p CABG COMPARISON: 03/06/2018 FINDINGS: Limited AP portable study. Support Devices: Right IJ [place]ammie catheter has been removed and a right [...] change from previous study is noted. SL: [id number] 03/07/2018 [facility] 1view DX Clinical Indica tion: - [...] and infrahilar infiltrate. Otherwise stable exam. SL: [id number] 03/06/2018 [facility] 1view DX Patient Name: Morales SCHREIBER : 1950; Age: 68 years y/o Female MR: [id number] Study: CHEST 1VIEW DX 03/05/2018 8:49 AM [...] artery bypass graft changes with right IJ [place]- [place]ammie catheter tip in the pulmonary outflow tract. Nasogastric tube in the stomach. ET tube in the mid lower trachea. IMPRESSION: Satisfactory initial post coronary artery bypass graft baseline exam of the chest. SL: [id number] 03/05/2018 [facility] 1view DX Chest, single v iew [...] worrisome for acute pneumonia. SL: 131 03/05/2018 [facility] 1view DX Clinical Indica tion: - hypoxia; Comparison: 02/28/2018 FINDINGS: AP chest radiographs shows normal lung volumes without interstitial or airspace opacities, pleural effusions or pneumothorax. The heart size and pulmonary vasculature are normal. The trachea is midline. There are no clinically significant osseous abnormalities noted. IMPRESSION: No chest radiographic evidence of acute cardiopulmonary disease. SL: [id number] 03/04/2018 [facility] Chest 1view DX Clinical Indica tion:68 [...] noted. IMPRESSION: No acute cardiopulmonary abnormality. 02/28/2018 [facility] Liver US Patient Name: MARY RENDON : 1950; Age: 68 years y/o Female MR: [id number] Study: Liver US 02/18/2018 9:47 AM CDT [...] laboratory data to assess obstructive significance. SL: [id number] 02/18/2018 [facility] Brain wo contrast CT EXAM: CT [...] may be performed for complete assessment. SL: [id number] 02/15/2018 [facility] contrast MRI MRI BRAI N WITHOUT [...] acute intracranial abnormalities are visualized. SL:16 02/15/2018 [facility] Chest 1view DX Clinical Indica tion: - dizziness; Comparison: 02/08/2018 FINDINGS: AP chest radiographs shows normal lung volumes without interstitial or airspace opacities, pleural effusions or pneumothorax. The heart size and pulmonary vasculature are normal. The trachea is midline. There are no clinically significant osseous abnormalities noted. IMPRESSION: No chest radiographic evidence of acute cardiopulmonary disease. SL: [id number] 02/14/2018 [facility] contrast CT Clinical Indication: Increasing dizziness [...] without mass, hemorrhage or subacute stroke. SL: [id number] 02/14/2018 [facility] 1view DX EXAM: Chest 1vi ew DX DATE: 02/08/2018 1:01 PM CDT INDICATION: Chest pain. COMPARISON: 01/30/2017. IMPRESSION: Stable cardiac silhouette and mediastinum. Marked atherosclerotic thoracic aorta. No focal consolidation, significant pleural effusion or pneumothorax. Multiple surgical clips are present within the right upper quadrant. SL: [id number] 02/08/2018 [facility] Chest 2 views DX Patient Name: MARY SCHREIBER : 1950; Age: 67 years y/o Female MR: [id number] Study: Chest 2 views DX 01/30/2017 11:40 [...] lower lobe. Correlate clinically for pneumonia. SL: [id number] 01/30/2017 [facility] Chest 1view DX Chest 1view DX [...] change from previous study is noted. SL: [id number] 01/25/2017 [facility] Chest 1view DX CHEST, ONE VIEW HISTORY: Chest pain. COMPARISON: 01/15/2017 FINDINGS: Since the prior examination, mild pulmonary edema has developed with small to moderate bilateral layering pleural effusions, right greater than left. No pneumothorax is seen. Heart size within normal limits. Coronary vascular stents are again noted. No acute osseous abnormality. SL: [id number] 01/24/2017 [facility] Carotid artery Doppler bilat US Patient Name: MARY SCHREIBER : 1950; Age: 67 years Female MR: [id number] Study: Carotid artery Doppler bilat US 01/16/2017 [...] low, or Variable undetectable SL: DONNIE 01/16/2017 [facility] Abdomen complete US EXAM: Ultr asound [...] Cholecystectomy. 3. Mild scarring right kidney. SL: [id number] 01/16/2017 [facility] Spine cervical wo contrast CT Patient Name: MARY SCHREIBER : 1950; Age: 66 years Female MR: [id number] Study: Spine cervical wo contrast CT 01/15/2017 4:06 PM CDT CLINICAL INDICATION: Pt c/o, 'Pain to back of head s/p slip \\T\\ fall in shower approx 30 min ago,' Pt is unusure of LOC, LU=[id number] in triage, Pt AAO x4 @ this [...] IMPRESSION: No acute cervical spine abnormalities. SL: [id number] 01/15/2017 [facility] Brain wo contrast CT EXAM: CT BRAIN WITHOUT CONTRAST DATE: 01/15/2017 4:07 PM CDT INDICATION: Syncope; Pt c/o, 'Pain to back of head s/p slip \\T\\ fall in shower approx 30 min ago,' Pt is unusure of LOC, PK=[id number] in triage, Pt AAO x4 @ this [...] performed for complete assessment. SL: [id number] 01/15/2017 [facility] Pelvis AP DX EXAM: Pelvis HISTORY: Pelvic pain, fall in shower COMPARISON: None TECHNIQUE: Frontal view pelvis FINDINGS: No fracture or other acute traumatic injury is seen. Extensive arteriosclerosis. Multiple phleboliths in the pelvis. Generalized osteopenia. SL: [id number] 01/15/2017 [facility] Chest 1view DX Patient Name: Morales SCHREIBER : 1950; Age: 66 years y/o Female MR: [id number] * CHEST, portable, 1 view HISTORY: Syncope, [...] coronary bhanu ry stents in place. SL: [id number] 01/15/2017 [facility] Abdomen RUQ US EXAM: US ABDOME [...] odularity suggesting cirrhosis. 2. Postcholecystectomy changes. 02/17/2016 [facility] Chest wo contrast CT EXAM: CT CHEST [...] and coronary artery stents. RECOMMENDATIONS: None. 02/17/2016 [facility] Spine cervical wo contrast CT EXAM: CT [...] wit h mild central canal narrowing. 02/17/2016 [facility] Brain wo contrast CT EXAM: CT [...] Left maxillary sinus inflammatory viktoriya nges. 02/17/2016 [facility] Chest 1view DX EXAM: XR CHEST 1 VIEW DATE: 02/17/2016 at 1420 hours INDICATION: Chest pain COMPARISON: 07/18/2014 TECHNIQUE: AP chest FINDINGS: No pulmonary or pleural-based abnormality is identified. Pulmonary vascularity is normal. The heart size is normal for technique. Coronary artery stents are noted. No acute bony abnormality is identified. IMPRESSION: No acute cardiopulmonary abnormality, and no significant change since 07/18/2014. 02/17/2016 [facility] Spine lumbar 2 or 3 views DX L umbosacral spine series, Jul 18, 2014 09:35:11 PM CLINICAL HISTORY: See Clinic Indication ; Pain, Lumbar region TECHNIQUE: Routine AP, lateral, views of the lumbosacral spine were obtained. COMPARISON: None FINDINGS: No acute fracture, subluxation, or dislocation is visualized in the lumbosacral spine. IMPRESSION: No acute abnormality of the lumbosacral spine. SL: 07/18/2014 [facility] Ribs unilateral 3 views w PA [...] opacities, possibly pulmonary contusions.. SL: 14 07/18/2014 [facility] Abdomen/Pelvis w/wo IV contrast CT HISTORY: [...] left adrenal nodule, likely adenoma. SL:13 11/22/2013 [facility] Consultation Notes No Data Provided for This Section Discharge Summaries No Data Provided for This Section History and Physicals No Data Provided for This Section Vital Signs Vital Sign Value Date Comments Source Respitory Rate 13 06/07/2020 [facility] Systolic (mm Hg) 94 06/07/2020 [facility] Diastolic (mm Hg) 47 06/07/2020 [facility] Respitory Rate 13 06/07/2020 [facility] Systolic (mm Hg) 102 06/07/2020 [facility] Diastolic (mm Hg) 48 06/07/2020 [facility] Temperature Oral (F) 98.0 F 06/07/2020 [facility] Respitory Rate 17 06/07/2020 [facility] Systolic (mm Hg) 148 06/07/2020 [facility] Diastolic (mm Hg) 60 06/07/2020 [facility] Temperature Oral (F) 98.0 F 06/07/2020 [facility] Temperature Oral (F) 98.1 F 06/07/2020 [facility] Heart Rate 79 06/06/2020 [facility] Heart Rate 79 06/06/2020 [facility] Heart Rate 86 06/06/2020 [facility] Height 157.48 cm 05/31/2020 [facility] BMI Calculated 20.16 05/31/2020 [facility] Weight 50 0 05/31/2020 [facility] Systolic (mm Hg) 120 05/24/2020 [facility] Diastolic (mm Hg) 61 05/24/2020 [facility] Heart Rate 70 05/24/2020 [facility] Respitory Rate 18 05/24/2020 [facility] Systolic (mm Hg) 151 05/24/2020 [facility] Diastolic (mm Hg) 95 05/24/2020 [facility] Respitory Rate 18 05/24/2020 [facility] Systolic (mm Hg) 130 05/24/2020 [facility] Diastolic (mm Hg) 77 05/24/2020 [facility] Respitory Rate 18 05/24/2020 [facility] Heart Rate 78 05/24/2020 [facility] Heart Rate 71 05/23/2020 [facility] Height 152.4 cm 05/23/2020 [facility] [...] 66 12/30/2019 [facility] Heart Rate 90 12/30/2019 [facility] Temperature Oral (F) 98 F 12/30/2019 [facility] Weight 58.182 12/30/2019 [facility] Systolic (mm Hg) 142 12/12/2019 [facility] Diastolic (mm Hg) 75 12/12/2019 [facility] Heart Rate 69 12/12/2019 [facility] Respitory Rate 18 12/12/2019 [facility] Temperature Oral (F) 98.3 F 12/12/2019 [facility] Systolic (mm Hg) 138 12/11/2019 [facility] Diastolic (mm Hg) 62 12/11/2019 [facility] Heart Rate 70 12/11/2019 [facility] Respitory Rate 17 12/11/2019 [facility] Systolic (mm Hg) 114 12/11/2019 [facility] Diastolic (mm Hg) 62 12/11/2019 [facility] Heart Rate 70 12/11/2019 [facility] Respitory Rate 16 12/11/2019 [facility] Temperature Oral (F) 98.1 F 12/11/2019 [...] [facility] Diastolic (mm Hg) 50 09/03/2019 [facility] Respitory Rate 13 09/03/2019 [facility] Systolic (mm Hg) 122 09/03/2019 [facility] Diastolic (mm Hg) 64 09/03/2019 [facility] Temperature Oral (F) 98.1 F 09/03/2019 [facility] Respitory Rate 16 09/03/2019 [facility] Systolic (mm Hg) 117 09/03/2019 [facility] Diastolic (mm Hg) 51 09/03/2019 [facility] Heart Rate 57 09/03/2019 [facility] Temperature Oral (F) 98.3 F 09/03/2019 [facility] Height 160.02 cm 09/03/2019 [facility] BMI Calculated 24.85 09/03/2019 [facility] Weight 63.636 09/03/2019 [facility] Temperature Oral (F) 98.1 F 07/14/2019 [facility] Respitory Rate 18 07/14/2019 [facility] Systolic (mm Hg) 139 07/14/2019 [facility] Diastolic (mm Hg) 52 07/14/2019 [facility] Respitory Rate 18 07/14/2019 [facility] Systolic (mm Hg) 147 07/14/2019 [facility] Diastolic (mm Hg) 55 07/14/2019 [facility] Systolic (mm Hg) 142 07/14/2019 [facility] Diastolic (mm Hg) 47 07/14/2019 [facility] Temperature Oral (F) 98.2 F 07/14/2019 [facility] Respitory Rate 17 07/14/2019 [facility] Temperature Oral (F) 98.1 F 07/13/2019 [facility] Heart Rate 62 07/13/2019 [facility] Height 162.56 cm 07/13/2019 [facility] BMI Calculated 22.19 07/13/2019 [facility] Weight 58.636 07/13/2019 [facility] Temperature Oral (F) 98.6 F 04/04/2019 [facility] Respitory Rate 19 04/04/2019 [facility] Systolic (mm Hg) 132 04/04/2019 [facility] Diastolic (mm Hg) 67 04/04/2019 [facility] Heart Rate 73 04/04/2019 [facility] Systolic (mm Hg) 125 04/04/2019 [facility] Diastolic (mm Hg) 73 04/04/2019 [facility] Respitory Rate 19 04/04/2019 [facility] Heart Rate 78 04/04/2019 [facility] Temperature Oral (F) 99.0 F 04/04/2019 [facility] Systolic (mm Hg) 133 04/04/2019 [facility] Diastolic (mm Hg) 68 04/04/2019 [facility] Respitory Rate 18 04/04/2019 [facility] Temperature Oral (F) 100.9 F 04/04/2019 [facility] Heart Rate 73 04/04/2019 [facility] Height 152.4 cm 04/03/2019 [facility] Weight 63.636 04/03/2019 [facility] BMI Calculated 27.4 04/03/2019 [facility] Systolic (mm Hg) 95 03/10/2019 [facility] Diastolic (mm Hg) 53 03/10/2019 [facility] Heart Rate 68 03/10/2019 [facility] Temperature Oral (F) 98.3 F 03/10/2019 [facility] Heart Rate 67 03/10/2019 [facility] Temperature Oral (F) 98.5 F 03/10/2019 [facility] Systolic (mm Hg) 102 03/10/2019 [facility] Diastolic (mm Hg) 59 03/10/2019 [facility] Heart Rate 72 03/10/2019 [facility] Temperature Oral (F) 99.2 F 03/10/2019 [facility] Systolic (mm Hg) 120 03/10/2019 [facility] Diastolic (mm Hg) 61 03/10/2019 [facility] Respitory Rate 18 03/09/2019 [facility] Respitory Rate 18 03/09/2019 [facility] Respitory Rate 18 03/09/2019 [facility] BMI Calculated 23.95 03/01/2019 [facility] Weight 55.636 03/01/2019 [facility] Height 152.4 cm 03/01/2019 [facility] Weight 56.818 02/28/2019 [facility] Respitory Rate 18 02/12/2019 [facility] Heart Rate 68 02/12/2019 [facility] Temperature Oral (F) 97.7 F 02/12/2019 [facility] Systolic (mm Hg) 140 02/12/2019 [facility] Diastolic (mm Hg) 75 02/12/2019 [facility] Height 152.4 cm 02/12/2019 [facility] BMI Calculated 24.66 02/12/2019 [facility] Weight 57.273 02/12/2019 [facility] Respitory Rate 18 02/12/2019 [facility] Temperature Oral (F) 98.1 F 02/12/2019 [facility] Systolic (mm Hg) 127 02/12/2019 [facility] Diastolic (mm Hg) 61 02/12/2019 [facility] Heart Rate 70 02/12/2019 [facility] Systolic (mm Hg) 135 11/06/2018 [facility] Diastolic (mm Hg) 78 11/06/2018 [facility] Respitory Rate 16 11/06/2018 [facility] Heart Rate 61 11/06/2018 [facility] Temperature Oral (F) 97.9 F 11/06/2018 [facility] Respitory Rate 16 11/06/2018 [facility] Systolic (mm Hg) 156 11/06/2018 [facility] Diastolic (mm Hg) 71 11/06/2018 [facility] Heart Rate 63 11/06/2018 [facility] Respitory Rate 18 11/06/2018 [facility] Temperature Oral (F) 97.9 F 11/06/2018 [facility] Systolic (mm Hg) 154 11/06/2018 [facility] Diastolic (mm Hg) 75 11/06/2018 [facility] Heart Rate 68 11/06/2018 [facility] Temperature Oral (F) 97.6 F 11/06/2018 [facility] BMI Calculated 19.01 11/02/2018 [facility] Weight 51.818 11/02/2018 [facility] Height 165.1 cm 11/02/2018 [facility] BMI Calculated 25.05 11/01/2018 [facility] Height 152.4 cm 11/01/2018 [facility] Weight 58.182 11/01/2018 [facility] Heart Rate 72 10/02/2018 [facility] Respitory Rate 18 10/02/2018 [facility] Systolic (mm Hg) 140 10/02/2018 [facility] Diastolic (mm Hg) 65 10/02/2018 [facility] Systolic (mm Hg) 140 10/02/2018 [facility] Diastolic (mm Hg) 65 10/02/2018 [facility] Respitory Rate 18 10/02/2018 [facility] Heart Rate 73 10/02/2018 [facility] Temperature Oral (F) 98.5 F 10/02/2018 [facility] Weight 54.091 10/01/2018 [facility] Temperature Oral (F) 98.2 F 10/01/2018 [facility] Systolic (mm Hg) 148 10/01/2018 [facility] Diastolic (mm Hg) 69 10/01/2018 [facility] Heart Rate 73 10/01/2018 [facility] Respitory Rate 18 10/01/2018 [facility] Respitory Rate 16 08/06/2018 [facility] Heart Rate 91 08/06/2018 [facility] Temperature Oral (F) 99.8 F 08/06/2018 [facility] Systolic (mm Hg) 108 08/06/2018 [facility] Diastolic (mm Hg) 70 08/06/2018 [facility] Heart Rate 89 08/06/2018 [facility] Temperature Oral (F) 97.5 F 08/06/2018 [facility] Systolic (mm Hg) 121 08/06/2018 [facility] Diastolic (mm Hg) 73 08/06/2018 [facility] Respitory Rate 16 08/06/2018 [facility] Temperature Oral (F) 97.2 F 08/06/2018 [facility] Respitory Rate 16 08/06/2018 [facility] Heart Rate 84 08/06/2018 [facility] Systolic (mm Hg) 140 08/06/2018 [facility] Diastolic (mm Hg) 73 08/06/2018 [facility] Weight 52.002 07/30/2018 [facility] Height 152.4 cm 07/29/2018 [facility] BMI Calculated 25.05 07/29/2018 [facility] Weight 58.182 07/29/2018 [facility] Height 152.4 cm 07/29/2018 [facility] Heart Rate 79 05/05/2018 [facility] Respitory Rate 18 05/05/2018 [facility] Systolic (mm Hg) 145 05/05/2018 [facility] Diastolic (mm Hg) 67 05/05/2018 [facility] Temperature Oral (F) 98.8 F 05/05/2018 [facility] Respitory Rate 18 05/05/2018 [facility] Respitory Rate 18 05/05/2018 [facility] Heart Rate 79 05/05/2018 [facility] Systolic (mm Hg) 139 05/05/2018 [facility] Diastolic (mm Hg) 69 05/05/2018 [facility] Temperature Oral (F) 99.3 F 05/05/2018 [facility] Temperature Oral (F) 99.1 F 05/05/2018 [facility] Heart Rate 81 05/05/2018 [facility] Systolic (mm Hg) 155 05/05/2018 [facility] Diastolic (mm Hg) 68 05/05/2018 [facility] Weight 58.1 04/29/2018 [facility] BMI Calculated 25.02 04/29/2018 [facility] Height 152.4 cm 04/29/2018 [facility] Weight 59.545 04/28/2018 [facility] Height 152.4 cm 04/28/2018 [facility] BMI Calculated 25.64 04/28/2018 [facility] Systolic (mm Hg) 162 04/01/2018 [facility] Diastolic (mm Hg) 72 04/01/2018 [facility] Temperature Oral (F) 98.2 F 04/01/2018 [facility] Heart Rate 74 04/01/2018 [facility] Respitory Rate 16 04/01/2018 [facility] Systolic (mm Hg) 173 04/01/2018 [facility] Temperature Oral (F) 98.2 F 04/01/2018 [facility] Respitory Rate 16 04/01/2018 [facility] Heart Rate 75 04/01/2018 [facility] Diastolic (mm Hg) 73 04/01/2018 [facility] Respitory Rate 18 04/01/2018 [facility] Systolic (mm Hg) 148 04/01/2018 [facility] Diastolic (mm Hg) 66 04/01/2018 [facility] Temperature Oral (F) 98.7 F 04/01/2018 [facility] Heart Rate 81 04/01/2018 [facility] Weight 57.017 03/25/2018 [facility] Weight 56.818 03/23/2018 [facility] Height 152.4 cm 03/21/2018 [facility] BMI Calculated 24.46 03/21/2018 [facility] Weight 56.818 03/21/2018 [facility] Temperature Oral (F) 98.6 F 03/21/2018 [facility] Heart Rate 67 03/21/2018 [facility] Respitory Rate 18 03/21/2018 [facility] Systolic (mm Hg) 141 03/21/2018 [facility] Diastolic (mm Hg) 52 03/21/2018 [facility] Temperature Oral (F) 99 F 03/21/2018 [facility] Systolic (mm Hg) 132 03/21/2018 [facility] Diastolic (mm Hg) 56 03/21/2018 [facility] Respitory Rate 18 03/21/2018 [facility] Heart Rate 68 03/21/2018 [facility] Temperature Oral (F) 98.1 F 03/21/2018 [facility] Respitory Rate 18 03/21/2018 [facility] Heart Rate 70 03/21/2018 [facility] Systolic [...] 70 02/21/2018 [facility] Respitory Rate 18 02/21/2018 [facility] Temperature Oral (F) 98.1 F 02/21/2018 [facility] Heart Rate 63 02/21/2018 [facility] Heart Rate 73 02/21/2018 [facility] Systolic (mm Hg) 159 02/21/2018 [facility] Diastolic (mm Hg) 71 02/21/2018 [facility] Respitory Rate 18 02/21/2018 [facility] Temperature Oral (F) 98.2 F 02/21/2018 [facility] Heart Rate 73 02/21/2018 [facility] Temperature Oral (F) 98.4 F 02/21/2018 [facility] Respitory Rate 18 02/21/2018 [facility] Systolic (mm Hg) 162 02/21/2018 [facility] Diastolic (mm Hg) 74 02/21/2018 [facility] Weight 56.932 02/15/2018 [facility] Height 152.4 cm 02/15/2018 [facility] BMI Calculated 24.51 02/15/2018 [facility] Weight 58.182 02/14/2018 [facility] BMI Calculated 25.05 02/14/2018 [facility] Height 152.4 cm 02/14/2018 [facility] Systolic (mm Hg) 131 02/11/2018 [facility] Diastolic (mm Hg) 66 02/11/2018 [facility] Temperature Oral (F) 98.5 F 02/11/2018 [facility] Respitory Rate 18 02/11/2018 [facility] Heart Rate 81 02/11/2018 [facility] Systolic (mm Hg) 155 02/11/2018 [facility] Diastolic (mm Hg) 71 02/11/2018 [facility] Respitory Rate 18 02/11/2018 [facility] Heart Rate 82 02/11/2018 [facility] Temperature Oral (F) 98.7 F 02/11/2018 [facility] Respitory Rate 18 02/11/2018 [facility] Systolic (mm Hg) 132 02/11/2018 [facility] Diastolic (mm Hg) 70 02/11/2018 [facility] Temperature Oral (F) 98.7 F 02/11/2018 [facility] Heart Rate 77 02/11/2018 [facility] Weight 57.045 02/09/2018 [facility] BMI Calculated 22.02 02/08/2018 [facility] Height 162.56 cm 02/08/2018 [facility] Weight 58.182 02/08/2018 [facility] Height 162.56 cm 02/08/2018 [facility] Weight 68.182 02/08/2018 [facility] BMI Calculated 25.8 02/08/2018 [facility] Systolic (mm Hg) 141 01/31/2017 [facility] Diastolic (mm Hg) 69 01/31/2017 [facility] Respitory Rate 9 01/31/2017 [facility] Temperature Oral (F) 98.4 F 01/31/2017 [facility] Systolic (mm Hg) 126 01/31/2017 [facility] Diastolic (mm Hg) 53 01/31/2017 [facility] Respitory Rate 16 01/31/2017 [facility] Respitory Rate 16 01/31/2017 [facility] Systolic (mm Hg) 105 01/31/2017 [facility] Diastolic (mm Hg) 74 01/31/2017 [facility] Temperature Oral (F) 98.3 F 01/31/2017 [facility] Temperature Oral (F) 98.8 F 01/31/2017 [facility] BMI Calculated 23.67 01/25/2017 [facility] Weight 56.818 01/25/2017 [facility] Height 154.94 cm 01/25/2017 [facility] Heart Rate 96 01/25/2017 [facility] Heart Rate 97 01/25/2017 [facility] Weight 50 0 01/24/2017 [facility] BMI Calculated 20.83 01/24/2017 [facility] Height 154.94 cm 01/24/2017 [facility] Heart Rate 92 01/24/2017 [facility] Heart Rate 88 01/18/2017 [facility] Respitory Rate 17 01/18/2017 [facility] Temperature Oral (F) 98.7 F 01/18/2017 [facility] Systolic (mm Hg) 170 01/18/2017 [facility] Diastolic (mm Hg) 71 01/18/2017 [facility] Heart Rate 82 01/18/2017 [facility] Respitory Rate 17 01/18/2017 [facility] Systolic (mm Hg) 156 01/18/2017 [facility] Diastolic (mm Hg) 70 01/18/2017 [facility] Temperature Oral (F) 98.5 F 01/18/2017 [facility] Temperature Oral (F) 98.3 F 01/18/2017 [facility] Heart Rate 89 01/18/2017 [facility] Respitory Rate 18 01/18/2017 [facility] Systolic (mm Hg) 128 01/18/2017 [facility] Diastolic (mm Hg) 71 01/18/2017 [facility] BMI Calculated 21.77 01/15/2017 [facility] Height 154.94 cm 01/15/2017 [facility] Weight 52.273 01/15/2017 [facility] Systolic (mm Hg) 124 02/20/2016 [facility] Diastolic (mm Hg) 64 02/20/2016 [facility] Respitory Rate 18 02/20/2016 [facility] Heart Rate 75 02/20/2016 [facility] Temperature Oral (F) 98.1 F 02/20/2016 [facility] Respitory Rate 18 02/20/2016 [facility] Systolic (mm Hg) 154 02/20/2016 [facility] Diastolic (mm Hg) 78 02/20/2016 [facility] Heart Rate 78 02/20/2016 [facility] Temperature Oral (F) 98.4 F 02/20/2016 [facility] Temperature Oral (F) 98.6 F 02/20/2016 [facility] Respitory Rate 18 02/20/2016 [facility] Systolic (mm Hg) 103 02/20/2016 [facility] Diastolic (mm Hg) 61 02/20/2016 [facility] Heart Rate 88 02/20/2016 [facility] Height 152.4 cm 02/18/2016 [facility] BMI Calculated 19.96 02/18/2016 [facility] Weight 46.364 02/18/2016 [facility] BMI Calculated 22.51 02/17/2016 [facility] Weight 52.273 02/17/2016 [facility] Height 152.4 cm 02/17/2016 [facility] Systolic (mm Hg) 154 07/19/2014 [facility] Respitory Rate 18 07/19/2014 [facility] Diastolic (mm Hg) 59 07/19/2014 [facility] Heart Rate 88 07/19/2014 [facility] Temperature Oral (F) 98.4 F 07/19/2014 [facility] Respitory Rate 18 07/19/2014 [facility] Systolic (mm Hg) 147 07/19/2014 [facility] Heart Rate 82 07/19/2014 [facility] Diastolic (mm Hg) 63 07/19/2014 [facility] Systolic (mm Hg) 163 07/19/2014 [facility] Heart Rate 79 07/19/2014 [facility] Respitory Rate 18 07/19/2014 [facility] Diastolic (mm Hg) 66 07/19/2014 [facility] Weight 52.273 07/19/2014 [facility] BMI Calculated 22.51 07/19/2014 [facility] Height 152.4 cm 07/19/2014 [facility] Temperature Oral (F) 98.3 F 07/19/2014 [facility] Encounters Location Location Details Encounter Type Encounter Number Reason For Visit Attending Provider ADM Date DC Date Status Source [facility] Outpatient [id number] CARDIAC CIR RHOSIS MARIE GARCIA 11/22/2013 Active [facility] [id number] Myron Novoadtare 07/19/2014 07/19/2014 [facility] Inpatient [id number] Kyra Webbon 02/17/2016 02/20/2016 [facility] Inpatient [id number] Rome Talbert 01/15/2017 01/18/2017 [facility] Inpatient [id number] Guillermo Bullock 01/24/2017 01/31/2017 [facility] Inpatient [id number] Taso Mougouris 02/08/2018 02/11/2018 [facility] Inpatient [id number] Chucho Carreon 02/14/2018 02/21/2018 [facility]patient [id number] [facility] 03[facility]21[facility]2018 [facility] Inpatient Rehab [id number] Sammy Ewing Jr 03/21/2018 04/01/2018 [facility] OP Therapy Patients [id number] Sammy Ewing Jr 04/04/2018 05/04/2018 [facility] Medical [facility] Outpatient [id number] Gabriele Chaney 04/12/2018 04/13/2018 [facility] Inpatient [id number] Angel Pendleton Jr 04/28/2018 05/05/2018 [facility] Inpatient [id number] Angel Pendleton Jr 07/29/2018 08/07/2018 [facility] [id number] Darren Castro 08/02/2018 08/02/2018 [facility] Emergency [id number] Cat Andrade 10/01/2018 10/02/2018 [facility] Inpatient [id number] Taso Mougouris 11/01/2018 11/06/2018 [facility] Emergency [id number] Az Flores 02/12/2019 02/12/2019 [facility] Inpatient [id number] Kenzie Braedenohuziel 02/28/2019 03/10/2019 [facility] Observation [id number] Juancho Robe 04/03/2019 04/04/2019 [facility] Outpatient [id number] Galindo Paolarandall 06/26/2019 06/27/2019 [facility] Emergency [id number] Jose M Shepherd 07/13/2019 07/14/2019 [facility] Emergency [id number] Brad Barakat 09/03/2019 09/03/2019 [facility] Emergency [id number] Carlos Parks 10/27/2019 10/27/2019 [facility] Inpatient [id number] Jhonathan Guilelrmo 11/21/2019 11/27/2019 [facility] Emergency [id number] Luis Eduardo Negro 12/05/2019 12/05/2019 [facility] Emergency [id number] Az Sandra 12/11/2019 12/12/2019 [facility] Emergency [id number] Brianne Castro 12/30/2019 12/30/2019 [facility] [id number] 03 Darren Castro 01/06/2020 01/07/2020 [facility] Outpatient [id number] Derrick Bullock 03/02/2020 03/03/2020 [facility] Observation [id number] Michelle Ramirezeh 05/23/2020 05/23/2020 [facility] Inpatient [id number] Afshan Montielaga 05/31/2020 06/07/2020 [facility] Procedures Procedure Code Date Perfomer Comments Source Abdominal hysterectomy [id number] [facility], [facility] She[place],[facility] CABG x 1 - Coronary artery bypass graft x 1 [id number] [facility], [place] [place] ,[facility] Cholecystectomy<sup>1</sup> 38 [id number] [facility], [place] [place] ,[facility] Cholecystotomy [id number] [facility] [place] [place],[facility] Eye care [id number] [facility] [place],[facility] Assessment and Plan Assessment and Plan Date [...] examination, unreliable. Coordination: Has mild asterixis on [id number]. Deep tendon reflexes trace. CT OF HEAD [...] Physical Author: Afshan Marcelo MD Date: 05/31/20 [id number] history ofhyperten abdoul, diabetes, CAD status post [...] C. SCD, clopidogrel Pending Neurology consult 06/07/2020 [facility] Extracted from:Title: Clinical Document Author: Alexi [...] 11/26/19 Pain Intensity NRS (0-10) 0 11/26/19 [facility] Coma Score 15 11/26/19 [facility] Fall Score 9 11/26/19 Petros Score 15 (all previously charted lines have been discontinued) Surgical Procedures: 11/25/19 11:52 EGD / MAC [id number] Primary Surgeon: Ranjeet Porter MD (Service: END) [...] have examined the patient with the Physician Player Development Executive and confirmed the essential components of history, physical examination, diagnosis and treatment plan. I agree with the patient's care as documented by the Physician Player Development Executive. Extracted from:Title: History and Physical Author: Sylwia Larose MD Date: 11/21/19 69-year-old femalewho has significant pa st medical history of ESRD on MWF HD , CAD, diabetes mellitus, hepatitis C, hypertensionwith questionable Alzheimer's diseasewas brought in byher brother. As per the history the [facility] she had lower abdominal discomfortand was diagnosed with urinary tract infection and was sent back home with p.o. Keflex however the patient did not receive any p.o. Keflexand [place] the patient was not respondingand was extremely confused that prompted them to bring her to the emergency room. In the emergency room patient was noted to have positive urinary tract infectionwith a normal WBC count. During my encounter patient was able to give her date of and also address. Predominant history was obtained from brother [id number]. Patient did not have fevers at home [...] by Sylwia Larose MD on 11/22/2019 02:05 PERIANESTHESIA RN chronic thrombocytopenia sec to hepatitis C 11/27/2019 [facility] Extracted from:Title: Clinical Document Author: Alexi [...] mental status Patient is undergoing hemodialysis today [place] [facility] already consulted by ER. We will get infectious disease evaluation. Patient was given vancomycin IV x1, gentamicin IV x1 along with hemodialysis. Blood cultures were sent from the ER. Prognosis guarded CODE STATUS full. 04/04/2019 [facility] Extracted from:Title: Cardiology Progres s Note [...] Document Author: Rebeka Tian MD Date: 11/05/18 [facility] INFECTIOUS DISEASE CONSULTATION NOTE REBEKA TIAN [...] in Water IV (Dextrose 50% Syringe), acetaminophen-hydrocodone (Stratton 5/325 oral tablet), albuterol (albuterol 0.083% inhalation [...] lactic acid levels. Ordered: Admit/Condition, 11/01/18 21:44:00 PERIANESTHESIA RN, Status: Inpatient, Telemetry Capable Location, Expected LOS: 2 Midnights, Anthony Boyce MD, Admit MD Review/Approve Yes, Isolation: No Isolation/Standard Precautions, Bacterial pneumonia Status post fall No fractures noted onchest x-ray and shoulder x-ray. Chest pain Reproducible, musculoskeletal in nature. Placed on Stratton. Trend troponins,EKG showing sinus rhythm. Consult cardiology for any changes in troponins. ESRDTTS Consults nephrology for routine hemodialysis Heparin 1-2 midnight 11/06/2018 [facility] Extracted from:Title: Clinical Document Author: Alexi [...] 08/06/18 Pain Intensity NRS (0-10) 0 08/06/18 [place] Coma Score 15 08/06/18 [facility]al[facility] Duran Fall [...] Nephrology, cardiology, hematology Discharge Information Disposition to detention facility Condition stable Medications: See med reconciliation [...] was consulted. Patient received dialysis by the snow groomer while here in the hospital. In relation to her syncope carotid ultrasound found to be negative and 2D echo was found to be normal. Cardiology was consulted. It was felt that the patient's likely underlying weakness is due to generalized weakness requiring detention facility for further rehabilitation. While here the [...] Date: 05/05/18 Progress Note - Dr. Carney [facility] Attending: Angel Ley MD [...] 398 05/04 24hr Tot [phone] - [phone] Stroke Myocardial infarct Cholelithiasis Alzheimer disease Medications [...] IV lasix for now. 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 Myocardial infarct ([id number]): Resolved. Cholelithiasis ([id number]): Resolved. Alzheimer disease (1112523977): Resolved. Family History: Procedure history: CABG x 1 - Coronary artery bypass graft x 1 (680635366). Cholecystotomy (15890894). Abdominal hysterectomy (394853735). Cholecystectomy (11561195). Comments: 02/17/2016 23:53 - Candy Null [facility] Eye care ([id number]). Social History Social and Psychosocial Habits Alcohol [...] 03/19/18 13:[address] PL[address]EMENT [id number] Primary Surgeon: Mario Abdi MD (Service: CVT) 03/05/18 09:27 CORONARY ARTERY BYPASS GRAFT; LEFT LEG EVH;STARK-LAD, SVG-OM, SVG-DIAG, SVG-PDA [id number] Primary Surgeon: Gabriele Chaney MD (Service: CVT) [...] seen and examined by me with the resident/CAKE MIXER/PA and I agree with the History/Exam documented. [...] panel and albumin le bryan today, so Kyel Vaz can be calculated 5. add octreotide [...] US pending Repeat Labs in am 02/21/2018 [facility] Extracted from:Title: Progress Note Author: Derrick [...] Timothy Morataya MD Date: 02/11/18 Discharge Summary [facility] Timothy Morataya MD Discharge [...] INJection, sterile 10 mL 1 gm, IV, BEED10U escitalopram 10 mg TAB 10 mg 1 [...] sterile water 10 mL) 1 gm IV [id number] 120 ml/hr 02/10/18 escitalopram 10 mg PO [...] Morataya MD Date: 02/09/18 Internal Medicine Consult [facility] Timothy Morataya MD Chief Complaint: headache [...] Histories Past Medical History: Active Diabetes mellitus (723033440) Hepatitis C (77306090) Stroke ([id number]): Myocardial infarct ([id number]): Cholelithiasis ([id number]): Alzheimer disease (6042354946): Family History: Reviewed and noncontributory to present illness Procedure history: CABG x 1 - Coronary artery bypass graft x 1 (421124439). Cholecystotomy (50200145). Abdominal hysterectomy (133000282). Cholecystectomy (04252456). Eye care (526746101). Social History Social and Psychosocial Habits Alcohol [...] (0-10) 0 01/31/17 Petros Score 20 01/31/17 [facility] Fall Score 15 (all previously charted lines have been discontinued) (no surgical procedures documented) Input/Output Record In Out Bal 01/31 24hr Tot 0 0 0 01/30 24hr Tot 1051 3660 - 1095 Scheduled Meds: None Unscheduled Meds: [...] Total CK H 194 (JAN 24) 01/31/2017 [facility] Extracted from:Title: Clinical Document Author: Rome Talbert DO Date: 01/18/17 Progress Daily [facility] Completed: Dec, 13:23 by Rome Talbert DO RM: 135 - 1D, SE C1A MARY SCHREIBER 67y (: 1950) F Attending: Rome Talbert DO Service: Internal Medicine Reason for Admission: ACUTE KIDNEY INJURY, DEHYDRATION, FEVER Working DRG: Renal failure w/o CC/SKILLED NURSING Code status: None Specified=FULL CODE Current diet: [...] 0.9% INJ 100 mL) 1 gm IVPB [id number] 200 ml/hr 01/16/17 insulin detemir 20 unit [...] MD Date: 01/16/[address] [facility] Chief Complaint- syncope HPI-this is a 67-year-old female with remote history of CAD with prior KY and stents about 3 years ago she [...] 0.9% INJ 100 mL) 1 gm IVPB [id number] 200 ml/hr 01/16/17 insulin detemir 20 unit [...] her back on her cardiac medications. 01/18/2017 [facility] Extracted from:Title: Discharge Summary Author: Kyra [...] and MÓNICA appear resolved. Procedures: none Consultations: [place] endocrinology Physical examination: Gen: no acute distress. [...] Date: 02/20/16 Endocrine Consult Note: Patient Room: [place] [address], 3C MARY SCHREIBER 66y (: 1950) F Attending: Kyra Lema MD Service: Internal Medicine DATE OF CONSULT: 02/20/2016 REFERRING PHYSICIAN: Dr Lema CONSULTING PHYSICIAN: Dr Sneed REASON FOR CONSULTATION: Type 2 diabetes CHIEF COMPLAINT: syncope HISTORY OF PRESENT ILLNESS: Ms. Schreiber is a 66 yo female with type 2 diabetes, h/o KY and cholecystectomy who presents with syncopal episode. KY was ruled out with cardiac enzymes and [...] Has protein in the urine. History of KY 4 years ago but unknown if any stents placed. Mother and both sisters have diabetes. Father had KY, age 86. No thyroid problems. Today she is tolerating full po diet without nausea or vomiting. She is complaining of sternal chest pain and epigastric pain. PAST MEDICAL HISTORY: type 2 diabetes, h/o KY PAST SURGICAL HISTORY: cholecystectomy SOCIAL HISTORY: lives with a friend, denies smoking and alcohol FAMILY HISTORY: Mother and both sisters have diabetes. Father had KY, age 86. Allergies (1) Active Reaction NKDA [...] 13.2%) complicated by retinopathy, neuropathy and h/o KY and HCV? cirrhosis who presents with syncopal [...] S: 56yo with history of DM, HTN, KY, CVA, and cholelithiasis s/p cholecystecomy presented for [...] CTA head/neck, RUQ US Consults: Diabetic Education, Bleach Packer A/P: 1.) Syncope - resolved - IV [...] make inpatient admission Hospitalist is primary page [phone] with questions Addendum by Kyra Lema MD [...] followup - she has been referred to tomographic tech by her PCP already. She has very poor understanding of managing her health, specifically diabetes. DM educator if possible, social work consultation. 02/20/2016 [facility] Plan of Care No Data Provided for This Section Social History Social History Date Source Social History TypeResponse Alcohol Never Substance Abuse Use: None. Smoking Status Never smoker; Ready to change: Yes; Concerns about tobacco use in household: Yes; Exposure to Tobacco Smoke None; Cigarette Smoking Last 365 Days Yes; Reg Smoking Cessation Counseling Yes entered on: 05/31/20 11/21/2019 [facility] Social History TypeResponse Alcohol Never Substance [...] Cessation Counseling No entered on: 04/28/18 04/29/2018 [facility] Social History TypeResponse Substance Abuse Use: None. Alcohol Never Smoking Status Never smoker; Exposure to Tobacco Smoke None; Cigarette Smoking Last 365 Days No; Reg Smoking Cessation Counseling No 02/18/2016 [facility] Family History No Data Provided for This Section Advance Directives No Data Provided for This Section Functional Status No Data Provided for This Section
[2020-08-11 15:24] VITALS: BP 132/70
== END 2020-08-11 15:29 | disposition home or self-care (01) ==
LOC: ER 14:15
DX: S91.112A Laceration without foreign body of left great toe without damage to nail, initial encounter (principal); W45.8XXA Other foreign body or object entering through skin, initial encounter; I12.0 Hypertensive chronic kidney disease with stage 5 chronic kidney disease or end stage renal disease; E11.22 Type 2 diabetes mellitus with diabetic chronic kidney disease; N18.6 End stage renal disease; Z99.2 Dependence on renal dialysis; E78.5 Hyperlipidemia, unspecified; G20 Parkinson's disease; Z95.1 Presence of aortocoronary bypass graft
CPT/HCPCS: 99283